=== PATIENT | male | born 1935 | race Caucasian/White ===

== ENCOUNTER 2017-07-17 15:29 | Inpatient (IN) | payer BC, OTHER ==
[2017-07-11 11:55] VITALS: BMI 28.0
[~2017-07-17] VITALS: Ht 185.4 cm; Wt 96.2 kg
[~2017-07-17 15:29] MED LIST: AMIO200T4 PO; ASPI-435 PO; ATV/1 PO; CLIN1GEL5 TOP; CLR10 PO; DOCU100C31 PO; DOXY1TAB6 PO; FERR1TAB62 PO; FURO-85 PO; INSDGI SC; MAGN400T6 PO; METO25TA3 PO; MOME6000 NAE; MULT-188 PO; MULT-506 PO; THIA100T11 PO; WARF2TAB8 PO; ZOLP5TAB PO
[2017-07-17 16:34] VITALS: BP 166/76; PULSE 68; TEMP 37.4; O2SAT 99; Ht 185.4 cm; Wt 96.2 kg
[2017-07-17] MEDS ORDERED: GLUCOSE 10 TABS/TUBE PO PRN (17:15)
[2017-07-17] MEDS ORDERED: GLUCOSE 40% GEL 15 GM TUBE PO PRN (17:15)
[2017-07-17] MEDS ORDERED: ACETAMINOPHEN 325 MG TAB PO PRN (17:15)
[2017-07-17] MEDS ORDERED: BISACODYL 5 MG TABEC PO ONE (17:15)
[2017-07-17] MEDS ORDERED: GLUCAGON FOR INJ 1 MG VIAL SQ PRN (17:15)
[2017-07-17] MEDS ORDERED: DEXTROSE 50% 50 ML SYR IV PRN (17:15)
[2017-07-17] MEDS ORDERED: LAVAGE SOLUTION 4000ML PO ONE (17:30)
--- NOTE | 2017-07-17 17:37 | History and Physical ---
History & Physical Date & Time of Service: Jul 17, 2017 at 17:37 Chief Complaint: Hannah,Pt Being Admitted For This Procedure Primary Care Physician: Sandeep Dhillon D.O. History of Present Illness Source: patient, clinic records, hospital records This is an 82-year-old male with a past medical history of mixed systolic and diastolic CHF, A Fib (on Coumadin), complete heart block (s/p pacemaker placement), DM II, HTN and other medical problems listed below who is being directly admitted for observation during bowel prep with plans for an EGD/ colonoscopy tomorrow. Patient follows with Dr. Dhillon and was recently referred to GI clinic for new onset iron deficiency anemia. From Feb until now, hemoglobin has decreased from 15.4 to 10.7. Hematocrit has decreased from 45 to 33. Patient denies any symptoms of GI bleeding but states that his stool has been darker for the last few weeks. Attributes the change in color to his iron supplement, which he is taking twice a day. Denies any lightheadedness, visual changes or chest pain. Was experiencing SOB but has improved since beta james dose was decreased to 25mg daily and lasix 20mg daily was initiated at last appointment. Due to complex cardiac history, GI requested that he be observed in-patient overnight to monitor fluid changes during bowel prep. Denies any fever, chills, headache, abdominal pain, nausea, vomiting, diarrhea, constipation, appetite changes, LE swelling. States that he had multiple polyps removed on prior colonoscopies. Last colonoscopy was over 10 years ago. Was instructed to hold the Coumadin; last dose was 5 days ago. Past Medical/Surgical History Medical Problems: (1) Acoustic neuroma Status: Chronic (2) Alcohol dependence Status: Chronic (3) Allergic rhinitis Status: Chronic (4) CAD (coronary artery disease) Status: Chronic (5) Cystic kidney disease Status: Chronic (6) Depression Status: Chronic (7) Diabetes mellitus type 2 in nonobese Status: Chronic (8) Diabetic polyneuropathy Status: Chronic (9) Dyslipidemia Status: Chronic (10) Generalized OA Status: Chronic (11) History of prostate cancer Permanent Comment: s/p prostatectomy Status: Chronic (12) HTN (hypertension) Status: Chronic (13) Insomnia Status: Chronic (14) Paroxysmal atrial fibrillation Status: Chronic (15) Systolic CHF Status: Chronic Surgical Problems: (1) H/O prostatectomy Status: Resolved (2) History of tonsillectomy and adenoidectomy Status: Resolved (3) S/P placement of cardiac pacemaker Status: Resolved Family History Patient reports no known family medical history. Social History Smoking Status: Never Smoker Alcohol Use: previously dependent. quit 5-6 years ago Marital Status: single Housing status: lives alone Occupational Status: retired Immunizations History of Influenza Vaccine: Yes Influenza Vaccine Date: Jan 22, 2011 History of Tetanus Vaccine?: Unknown History of Pneumococcal: Yes History of Hepatitis B Vaccine: No Allergies Coded Allergies: Sulfites (Verified Allergy, Unknown, THROAT CONSTRICTION, 07/11/17) Uncoded Allergies: VASODILATORS (Allergy, Intermediate, red swelling, 02/01/11) Home Medications Scheduled Amiodarone Hcl (Cordarone), 200 MG PO QPM Aspirin (Aspirin 81), 81 MG PO QAM Clindamycin Phosphate (Topical (Clindamycin Phosphate), 1 APPLN TOP DAILY Docusate Sodium (Docusate Sodium), 1 CAP PO QAM Doxycycline Hyclate (Doxycycline Hyclate), 100 MG PO HS Ferrous Sulfate (Ferrous Sulfate), 1 TAB PO BID Furosemide (Lasix), 20 MG PO DAILY Insulin Glargine (Lantus), 10 UNITS SC QAM Loratadine (Claritin), 10 MG PO DAILY Lorazepam (Ativan), 1-2 TABS PO HS Magnesium Oxide (Mag-Ox), 400 TAB PO QAM Metoprolol Succ (Toprol Xl) (Toprol-Xl), 25 MG PO QPM Mometasone Furoate (Nasal) (Mometasone Furoate), 2 SPRAY LUIS A DAILY Multiple Vitamins W/ Minerals (Ocuvite), 1 TAB PO QAM Multivitamin (Multivitamin), 1 TAB PO QAM Thiamine Hcl (Vitamin B-1), 100 MG PO WK Warfarin Sod (Jantoven), 0.5 TAB PO 3XWK Warfarin Sod (Jantoven), 1 TAB PO 4XWK Zolpidem Tartrate (Ambien), 5 MG PO HS Review of Systems Ten systems reviewed and negative except as noted in the HPI. Physical Exam Vital Signs Date Time Temp Pulse Resp B/P (MAP) Pulse Ox O2 Delivery O2 Flow Rate FiO2 07/17/17 16:34 37.4 68 20 166/76 99 Room Air General Appearance: WD/WN, no apparent distress, + pertinent finding (Resting comfortably. + pallor ) Head: normocephalic, atraumatic Eyes: normal inspection, PERRL, sclerae normal ENT: normal ENT inspection, hearing grossly normal, pharynx normal Neck: supple, thyroid normal, no JVD, trachea midline Respiratory/Chest: chest non-tender, lungs clear, normal breath sounds, no respiratory distress, no accessory muscle use, + pertinent finding (pacemaker in left chest wall) Cardiovascular: regular rate, rhythm, no murmur, normal peripheral pulses, + pertinent finding (1+ pitting edema to BLE. Wearing josefa hose) Abdomen/GI: non tender, soft, no organomegaly Back: normal inspection Extremities/Musculoskelatal: normal inspection, no calf tenderness, no pedal edema Neurologic/Psych: no motor/sensory deficits, alert, normal mood/affect, oriented x 3 Skin: warm/dry, no rash, + pallor Diagnostics Laboratory Results Results Past 24 Hours Test 07/17/17 16:09 07/17/17 17:31 Range/Units Bedside Glucose 97 70-99 mg/dl EKG Ventricular-paced rhythm with premature ventricular or aberrantly conducted complexes at 66 bpm. Impression Assessment and Plan This is an 82-year-old male with a past medical history of mixed systolic and diastolic CHF, A Fib (on Coumadin), complete heart block (s/p pacemaker placement), DM II, HTN and other medical problems listed below who is being directly admitted for observation during bowel prep with plans for an EGD/ colonoscopy tomorrow. Iron deficiency anemia: -Significant decrease in hgb/hct over the past 4 months -Hgb stable at 12, which shows improvement with iron supplementation -Unknown cause of chronic bleeding -Plan for EGD, colonoscopy tomorrow -Bowel prep, NPO after midnight -Gentle IVF resuscitation Hypokalemia: -Likely 2/2 recent initiation of lasix -Replace -Check BMP in AM Mixed systolic, diastolic CHF: -Compensated on exam -No SOB, lungs are clear -BNP wnl, CXR pending -Mar 2016 echo with EF of 46% (improved from 30%) Normal LV size with mild concentric LVH Mildly reduced LV systolic function with abnormal septal wall motion consistent with RV pacemaker activation along with mild global hypokinesis A Fib: -Coumadin held for procedure-- INR 1.4 -Continue amiodarone, metoprolol succinate DM II: -Hgb a1c of 5.5 in June 2017 -Hold home agents -SSI while in-patient -BSG AC HS HTN: -Normotensive -Cont beta james Insomnia: -Cont home dose ativan, ambien DVT Ppx: SCDs. No pharmacologic VTE due to procedure tomorrow Code status: FULL code PCP: Alejo Dispo: Observation telemetry. Discharge planning ordered (patient lives alone, > 80 yo). Patient seen in collaboration with Dr. Gordillo. Please see addendum. ADDENDUM: This is an 82 year old male with a PMH of mixed diastolic (grade 3) and systolic CHF, A. fib on Coumadin, s/p PPM, iron deficiency anemia - presents for an EGD and colonoscopy. He was sent over to be directly admitted due to his medical history. He has no complaints at this time. On exam: +S1, S2 - Irregularly irregular trace edema on the b/l LE Plan: monitor in tele bowel prep as per GI plan for EGD/colonoscopy in AM INR is 1.4, will recheck in AM check a portable CXR will give 20 meq KCl D5 1/2NS + 20meq KCl at 80mL/hr - monitor fluid status Advanced Directives Existing Living Will: Yes Existing Power of Sheet Metal Technician: Yes Resuscitation Status VTE Prophylaxis Will order VTE Prophylaxis: Yes
[2017-07-17 17:41] LABS: HEMATOCRIT 38.7 % (42-52); HEMOGLOBIN 12.1 g/dL (14.0-18.0); MEAN CELL VOLUME 79.6 fL (80-100); MEAN CORPUSCULAR HEMOGLOBIN 24.9 pg (25-34); MEAN CORPUSCULAR HGB CONC 31.3 g/dl (32-36); MEAN PLATELET VOLUME 8.4 fL (7.4-10.4); PLATELET COUNT 223 K/uL (130-400); RED CELL DISTRIBUTION WIDTH CV 25.4 % (11.5-14.5); RED CELL DISTRIBUTION WIDTH SD 71.3 fL (36.4-46.3); WHITE BLOOD COUNT 6.07 K/uL (4.8-10.8)
--- NOTE | 2017-07-17 17:43 | Medical Consult ---
Consultation Note Date of Service Jul 17, 2017. (Jae Cat,Alvaro.R.N.P.) Consultation Note Mr. hTayer is an 82 yr old male who was seen in GI clinic for anemia. He has significant comorbidies: Systolic CHF, A-FIB on Coumadin, s/p PPM, DM, HTN. His Hct dropped from 45 to 33 with T-sat of 6% but he denies any symptoms of GI bleeding. He reports dark stools x 2 weeks as well as mild SOB. He denies nausea, vomiting, diarrhea, constipation, abdominal pain, loss of appetite, early satiety or unintentional weight loss. No history of hematemesis , melena or hematochezia. No NSAIDs use. No reflux symptoms Today, he presented to the hospital for direct admission for mild SOB associated with CHF. Exam: Current VS are normal, he has minimal peripheral edema and no SOB. Plan: CBC, CMP. Appreciate eval and monitoring of electrolytes, cardiac status, hydration status by primary hospital services. Will plan for EGD and colonoscopy tomorrow for w/u of iron deficiency anemia. (Jae Cat,C.R.N.P.) I performed a history and physical examination of the patient, including specifically on physical exam - no abdominal tenderness. I have discussed the patient's management with ALLIE Domingo. Please refer to the nurse practitioner's note for the documented findings and plan of care. Patient with multiple medical comorbids, recently had ?melena and drop in his H/ H which later stabelized but he had worsening SOB hence admitted to the hospital to evaluate for CHF exacerbation, monitor and prep for endoscopy and colonoscopy tomorrow after bowel prep. (Sean Walker M.D.)
[2017-07-17 17:49] LABS: INR 1.4 (0.9-1.1)
[2017-07-17 18:15] LABS: ALBUMIN 3.2 gm/dl (3.4-5.0); CALCIUM 7.9 mg/dl (8.5-10.1); CREATININE 1.04 mg/dl (0.60-1.40); POTASSIUM 3.3 mmol/L (3.5-5.1)
[2017-07-17] MEDS: FERROUS SULFATE 325 MG TAB PO SCH (18:15)
[2017-07-17 18:17] LABS: TOTAL PROTEIN 6.2 gm/dl (6.4-8.2)
[2017-07-17] MEDS ORDERED: POTASSIUM CHLORIDE 20 MEQ TABCR PO STA (18:35)
[2017-07-17 18:54] VITALS: BP 188/85; PULSE 70; TEMP 36.4; O2SAT 99
[2017-07-17] MEDS ORDERED: IV FLUIDS COMPLETED PRN (19:15)
--- NOTE | 2017-07-17 19:51 | DIAGNOSTIC IMAGING REPORT ---
CHEST ONE VIEW PORTABLE CLINICAL HISTORY: Fluid overload. History congestive failure. COMPARISON STUDY: 09/23/2015 FINDINGS: The heart is enlarged. There is a left subclavian dual-chamber central venous pacemaker present. There are small bilateral pleural effusions. There is no lobar consolidation.[ There is no current evidence of significant pulmonary vascular congestion. IMPRESSION: Cardiomegaly and small bilateral pleural effusions. Electronically signed by: Marvin Merritt M.D. 07/17/2017 7:49 PM Dictated Date/Time: 07/17/2017 7:49 PM
[2017-07-17 20:00] VITALS: O2SAT 98
[2017-07-17] MEDS: D5W AND 1/2NSS + 20MEQ KCL 1,000 ML IV SCH (20:02)
[2017-07-17] MEDS: METOPROLOL SUCC 25MG EXT REL TAB PO SCH (20:04)
[2017-07-17] MEDS: AMIODARONE 200 MG TAB PO SCH (20:05)
[2017-07-17] MEDS: INSULIN ASPART 100 UNITS/ML 3 ML PEN SC SCH (20:07)
[2017-07-17] MEDS ORDERED: LORAZEPAM 1 MG TAB PO SCH (21:00)
[2017-07-18 00:10] VITALS: BP 171/93; PULSE 71; TEMP 36.4; O2SAT 97
[2017-07-18] MEDS: ZOLPIDEM TARTRATE 5 MG TAB PO SCH (00:55)
[2017-07-18 04:07] VITALS: BP 172/97; PULSE 62; TEMP 36.7; O2SAT 100
[2017-07-18] MEDS: INSULIN ASPART 100 UNITS/ML 3 ML PEN SC SCH ×4 (07:00→21:29)
[2017-07-18] MEDS: FERROUS SULFATE 325 MG TAB PO SCH ×2 (07:27→17:19)
[2017-07-18] MEDS: D5W AND 1/2NSS + 20MEQ KCL 1,000 ML IV SCH (07:37)
[2017-07-18 07:49] VITALS: BP 125/71; PULSE 60; TEMP 36.9; O2SAT 95
[2017-07-18 07:51] LABS: HEMATOCRIT 34.9 % (42-52); HEMOGLOBIN 11.1 g/dL (14.0-18.0); MEAN CORPUSCULAR HEMOGLOBIN 25.5 pg (25-34); MEAN CORPUSCULAR HGB CONC 31.8 g/dl (32-36); MEAN PLATELET VOLUME 8.6 fL (7.4-10.4); PLATELET COUNT 203 K/uL (130-400); RED CELL DISTRIBUTION WIDTH CV 25.7 % (11.5-14.5); RED CELL DISTRIBUTION WIDTH SD 72.4 fL (36.4-46.3); WHITE BLOOD COUNT 5.75 K/uL (4.8-10.8)
[2017-07-18 07:58] LABS: INR 1.4 (0.9-1.1)
[2017-07-18 08:25] LABS: ALBUMIN 2.7 gm/dl (3.4-5.0); CALCIUM 7.7 mg/dl (8.5-10.1); CREATININE 0.89 mg/dl (0.60-1.40); POTASSIUM 3.5 mmol/L (3.5-5.1)
[2017-07-18 08:28] LABS: TOTAL PROTEIN 5.2 gm/dl (6.4-8.2)
[2017-07-18 11:50] VITALS: BP 153/78; PULSE 59; TEMP 36.7; O2SAT 97
--- NOTE | 2017-07-18 15:00 | Endo History and Physical ---
History & Physical Date of Service: Jul 18, 2017. Chief Complaint: Referring Physician: History of Present Illness MAGI with drop in H/H Past Medical History Diabetes, Fractures, Pacemaker, Anxiety, Cancer, CHF, Hypertension, Depression, [place] Past Surgical History Hx Internal Defibrillator: No Hx Pacemaker: Yes (5-6 YEARS [facility]) Hx Abdominal Surgery: No Hx of Implantable Prosthesis: No Hx Post-Op Nausea and Vomiting: No Hx Cancer Surgery: Yes (Prostate, skin) Hx Thoracic Surgery: No Hx Orthopedic: Yes (Left leg) Hx Urinary Tract Surgery: No Family History None Social History Smoking Status: Never Smoker Hx Substance Use: No Hx Alcohol Use: No Allergies Coded Allergies: Sulfites (Verified Allergy, Unknown, THROAT CONSTRICTION, 07/11/17) Uncoded Allergies: VASODILATORS (Allergy, Intermediate, red swelling, 02/01/11) Current Medications Reported Home Medications Medications Dose Route/Sig Max Daily Dose Days Date Category Dose Instructions Mometasone Furoate (Mometasone Furoate (Nasal)) 50 Mcg/Act Spr 2 [place] LUIS A DAILY 07/11/17 Reported Toprol-Xl (Metoprolol Succinate) 25 Mg Tabcr 25 Mg PO QPM 07/11/17 Reported Lantus (Insulin Glargine) 100 Unit/Ml Inj 10 Units SC QAM 07/11/17 Reported Lasix (Furosemide) 20 Mg Tab 20 Mg PO DAILY 07/11/17 Reported NEW PRESCRIPTION, HAS NOT STARTED YET Ferrous Sulfate 325 Mg Tab 1 Tab PO BID 07/11/17 Reported Docusate Sodium 100 Mg Cap 1 Cap PO QAM 07/11/17 Reported Jantoven (Warfarin Sodium) 2 Mg Tab 1 Tab PO 4XWK 07/11/17 Reported SUN,TUES,THURS,SAT Jantoven (Warfarin Sodium) 2 Mg Tab 0.5 Tab PO 3XWK 07/11/17 Reported Cordarone (Amiodarone Hcl) 200 Mg Tab 200 Mg PO QPM 07/11/17 Reported Ocuvite (Multiple Vitamins W/ Minerals) 1 Tab Tab 1 Tab PO QAM 09/23/15 Reported Clindamycin Phosphate (Clindamycin Phosphate (Topical) 1 % Gel 1 Appln TOP DAILY 08/11/15 Reported APPLY TO CHEEKS Aspirin 81 (Aspirin) 81 Mg Tab 81 Mg PO QAM 08/11/15 Reported Ativan (Lorazepam) 1 Mg Tab 1-2 Tabs PO HS 4/19/16 Reported Ambien (Zolpidem Tartrate) 5 Mg Tab 5 Mg PO HS 08/11/15 Reported Doxycycline Hyclate 100 Mg Tab 100 Mg PO HS 12/09/14 Reported Claritin (Loratadine) 10 Mg Tab 10 Mg PO DAILY 12/09/09 Reported Mag-Ox (Magnesium Oxide) 400 Mg Tab 400 Tab PO QAM 11/30/09 Reported Vitamin B-1 (Thiamine HCl) 100 Mg Tab 100 Mg PO WK 11/30/09 Reported Multivitamin (Multivitamins) Tab 1 Tab PO QAM 11/23/09 Reported Vital Signs Weight (Kilograms): 93.400 Height (Feet): 6 Height (Inches): 1.00 Date Time Temp Pulse Resp B/P (MAP) Pulse Ox O2 Delivery O2 Flow Rate FiO2 07/18/17 13:55 36.6 77 20 174/100 (124) 99 Room Air 07/18/17 12:00 Room Air 07/18/17 11:50 36.7 59 18 153/78 (103) 97 Room Air 07/18/17 08:00 Room Air 07/18/17 07:49 36.9 60 16 125/71 (89) 95 07/18/17 04:07 36.7 62 16 172/97 (122) 100 Room Air 07/18/17 04:00 Room Air 07/18/17 00:10 36.4 71 16 171/93 (119) 97 Room Air 07/17/17 23:59 Room Air 07/17/17 20:00 98 Room Air 07/17/17 18:54 36.4 70 19 188/85 (119) 99 Room Air 07/17/17 16:34 37.4 68 20 166/76 99 Room Air Physical Exam General Appearance: no apparent distress Respiratory/Chest: Auscultation: breath sounds normal Cardiovascular: Heart Auscultation: RRR Abdomen: Inspection & Palpation: soft Liver: non-tender Assessment and Plan Stable for EGD and colonoscopy
[2017-07-18] MEDS ORDERED: RANITIDINE HCL 25 MG/ML INJ ONE ×2 (15:22→15:25)
[2017-07-18] MEDS ORDERED: EpHEDrine SULFATE 50MG/5ML SYR ONE (15:49)
[2017-07-18] MEDS ORDERED: LIDOCAINE HCL 2% 2 ML VIAL (20MG/ML) ONE (15:49)
[2017-07-18] MEDS ORDERED: PHENYLEPHRINE 100MCG/ML 5ML SYR ONE (15:49)
[2017-07-18] MEDS ORDERED: DEXAMETHASONE SOD INJ 4 MG/ML VIAL ONE (15:49)
[2017-07-18] MEDS ORDERED: ONDANSETRON INJ 2 MG/ML 2 ML VIAL ONE (15:49)
[2017-07-18] MEDS ORDERED: PROPOFOL IV EMULSION 10 MG/ML 20 ML VIAL IV ONE (15:49)
--- NOTE | 2017-07-18 16:55 | Anesthesiology Progress Note ---
Anesthesia Post Op Note Date & Time Jul 18, 2017 at 16:55 Vital Signs Pain Intensity: 0.0 Vital Signs Past 12 Hours Date Time Temp Pulse Resp B/P (MAP) Pulse Ox O2 Delivery O2 Flow Rate FiO2 07/18/17 16:46 62 16 158/69 (98) 99 Room Air 07/18/17 16:31 71 16 144/69 (94) 100 Room Air 07/18/17 13:55 36.6 77 20 174/100 (124) 99 Room Air 07/18/17 12:00 Room Air 07/18/17 11:50 36.7 59 18 153/78 (103) 97 Room Air 07/18/17 08:00 Room Air 07/18/17 07:49 36.9 60 16 125/71 (89) 95 Notes Mental Status: alert / awake / arousable, participated in evaluation Pt Amnestic to Procedure: Yes Nausea / Vomiting: adequately controlled Pain: adequately controlled Airway Patency, RR, SpO2: stable & adequate BP & HR: stable & adequate Hydration State: stable & adequate Anesthetic Complications: no major complications apparent
--- NOTE | 2017-07-18 16:59 | GI REPORT ---
Procedure Date: 07/18/2017 2:54 PM Procedure: Upper GI endoscopy Indications: Iron deficiency anemia, Melena Medicines: Monitored Anesthesia Care Complications: No immediate complications. Estimated Blood Loss: Estimated blood loss: none. Procedure: Pre-Anesthesia Assessment: - Prior to the procedure, a History and Physical was performed, and patient medications and allergies were reviewed. The patient is competent. The risks and benefits of the procedure and the sedation options and risks were discussed with the patient. All questions were answered and informed consent was obtained. Patient identification and proposed procedure were verified by the physician and the nurse in the procedure room. Mental Status Examination: alert and oriented. Airway Examination: normal oropharyngeal airway and neck mobility. Respiratory Examination: clear to auscultation. CV Examination: normal. ASA Grade Assessment: IV - A patient with severe systemic disease that is a constant threat to life. After reviewing the risks and benefits, the patient was deemed in satisfactory condition to undergo the procedure. The anesthesia plan was to use monitored anesthesia care (MAC). Immediately prior to administration of medications, the patient was re-assessed for adequacy to receive sedatives. The heart rate, respiratory rate, oxygen saturations, blood pressure, adequacy of pulmonary ventilation, and response to care were monitored throughout the procedure. The physical status of the patient was re-assessed after the procedure. After obtaining informed consent, the endoscope was passed under direct vision. Throughout the procedure, the patient's blood pressure, pulse, and oxygen saturations were monitored continuously. The scope was introduced through the mouth, and advanced to the second part of duodenum. The upper GI endoscopy was accomplished without difficulty. The patient tolerated the procedure well. Findings: The examined esophagus was normal. Atrophic mucosa was found in the gastric fundus and in the gastric body. Biopsies were taken with a cold forceps for histology. Biopsies were taken with a cold forceps for Helicobacter pylori testing. Mild gastric antral vascular ectasia without bleeding was present in the gastric antrum. Vaporization for bleeding prevention using argon plasma was successful. The duodenal bulb and second portion of the duodenum were normal. Biopsies for histology were taken with a cold forceps for evaluation of celiac disease. Impression: - Normal esophagus. - Gastric mucosal atrophy. Biopsied. - Gastric antral vascular ectasia without bleeding. Treated with argon plasma coagulation (APC). - Normal duodenal bulb and second portion of the duodenum. Biopsied. Recommendation: - Clear liquid diet today. - Use a proton pump inhibitor IV daily for one day then change to PO daily for 4 weeks. - Use sucralfate suspension 1 gram PO QID for 1 week. Sean Walker MD 07/18/2017 4:59:06 PM This report has been signed electronically. Note Initiated On: 07/18/2017 2:54 PM I attest to the content of the Intraoperative Record and orders documented therein, exceptions below
--- NOTE | 2017-07-18 17:09 | GI REPORT ---
Procedure Date: 07/18/2017 2:53 PM Procedure: Colonoscopy Indications: Melena, Iron deficiency anemia Medicines: Monitored Anesthesia Care Complications: No immediate complications. Estimated Blood Loss: Estimated blood loss: none. Procedure: Pre-Anesthesia Assessment: - Prior to the procedure, a History and Physical was performed, and patient medications and allergies were reviewed. The patient is competent. The risks and benefits of the procedure and the sedation options and risks were discussed with the patient. All questions were answered and informed consent was obtained. Patient identification and proposed procedure were verified by the physician and the nurse in the procedure room. Mental Status Examination: alert and oriented. Airway Examination: normal oropharyngeal airway and neck mobility. Respiratory Examination: clear to auscultation. CV Examination: normal. ASA Grade Assessment: IV - A patient with severe systemic disease that is a constant threat to life. After reviewing the risks and benefits, the patient was deemed in satisfactory condition to undergo the procedure. The anesthesia plan was to use monitored anesthesia care (MAC). Immediately prior to administration of medications, the patient was re-assessed for adequacy to receive sedatives. The heart rate, respiratory rate, oxygen saturations, blood pressure, adequacy of pulmonary ventilation, and response to care were monitored throughout the procedure. The physical status of the patient was re-assessed after the procedure. After I obtained informed consent, the scope was passed under direct vision. Throughout the procedure, the patient's blood pressure, pulse, and oxygen saturations were monitored continuously. The scope was introduced through the anus and advanced to the terminal ileum. The colonoscopy was performed without difficulty. The patient tolerated the procedure well. The quality of the bowel preparation was good. The terminal ileum, ileocecal valve, appendiceal orifice, and rectum were photographed. Findings: The perianal and digital rectal examinations were normal. A frond-like/villous, infiltrative and ulcerated non-obstructing large mass was found in the ascending colon. The mass was partially circumferential (involving one-half of the lumen circumference). The mass measured five cm in length. In addition, its diameter measured twenty-five mm. Oozing was present. Mass did not lif with salone. Biopsies were taken with a cold forceps for histology. Area was tattooed with an injection of 1 mL of Sylvia ink. Vaporization for hemostasis using argon plasma was successful. Area was successfully injected with 6 mL of a 1:10,000 solution of epinephrine for hemostasis. The terminal ileum appeared normal. Two sessile polyps were found in the cecum. The polyps were 8 mm in size. These polyps were removed with a cold snare. Resection and retrieval were complete. Verification of patient identification for the specimen was done by the physician and nurse using the patient's name and date. Three sessile polyps were found in the sigmoid colon. The polyps were 5 mm in size. These polyps were removed with a cold snare. Resection and retrieval were complete. Scattered small and large-mouthed diverticula were found in the sigmoid colon. Non-bleeding internal hemorrhoids were found during retroflexion. The hemorrhoids were small. Impression: - Malignant looking mass in the ascending colon. Biopsied. Tattooed. - The examined portion of the ileum was normal. - Two 8 mm polyps in the cecum, removed with a cold snare. Resected and retrieved. - Three 5 mm polyps in the sigmoid colon, removed with a cold snare. Resected and retrieved. - Diverticulosis in the sigmoid colon. - Non-bleeding internal hemorrhoids. Recommendation: - Return patient to [facility] for ongoing care. - Clear liquid diet today. - Await pathology results. - Refer to a surgeon today. - Perform CT scan (computed tomography) of the Chect , abdomen and pelvis with contrast today. - Monitor H/H. Sean Walker MD 07/18/2017 5:08:32 PM This report has been signed electronically. Note Initiated On: 07/18/2017 2:53 PM I attest to the content of the Intraoperative Record and orders documented therein, exceptions below
[2017-07-18] MEDS ORDERED: PANTOprazole INJ 80 MG in DEXTROSE 5% 100ML IV SCH (17:30)
--- NOTE | 2017-07-18 17:44 | Gastroenterology Progress Note ---
Gastroenterology Progress Note Patient underwent EGD and colonoscopy, tolerated well. 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 Normal esophagus and duodenum. Colonoscopy showed large ulcerated colonic mass in ascending colon with slight oozing, this was biopsied and tattooed and treated with APC to slow down the bleeding. This is likely malignant mass. Few polyps removed from sigmoid colon. Recommendations: CT scan chest, abdomen and pelvis. Monitor H/H Surgery consult, eventually will need right hemicolectomy for therapeutic purpose of the bleeding. Keep on clear liquids for now.
[2017-07-18] MEDS: PANTOprazole INJ 40 MG in DEXTROSE 5% 100ML IV SCH ×2 (18:13→22:50)
--- NOTE | 2017-07-18 19:33 | Surgery Consultation ---
Consultation Date of Consultation: Jul 18, 2017. Attending Physician: Rosalie Coto M.D. History of Present Illness pt is a 82 year old male who is S/P colonoscopy with biopsy ascending colon mass with anemia, pt denies abdominal pain, no nausea, no vomiting, no weakness, no diarrhea, no weight loss,He has significant comorbidies: Systolic CHF, A-FIB on Coumadin, s/p PPM, DM, HTN. His Hct dropped from 45 to 33 with T-sat of 6% but he denies any symptoms of GI bleeding. He reports dark stools x 2 weeks as well as mild SOB. pt had other colonoscopy in 2011, Past Medical/Surgical History Medical Problems: (1) Lightheadedness Status: Acute (2) Near syncope Status: Acute Family History Patient reports no known family medical history. Social History Smoking Status: Never Smoker Smokeless Tobacco Use: No Alcohol Use: occasionally Drug Use: none Marital Status: single Occupation Status: retired Allergies Coded Allergies: Sulfites (Verified Allergy, Unknown, THROAT CONSTRICTION, 07/11/17) Uncoded Allergies: VASODILATORS (Allergy, Intermediate, red swelling, 02/01/11) Home Medications Scheduled Amiodarone Hcl (Cordarone), 200 MG PO QPM Aspirin (Aspirin 81), 81 MG PO QAM Clindamycin Phosphate (Topical (Clindamycin Phosphate), 1 APPLN TOP DAILY Docusate Sodium (Docusate Sodium), 1 CAP PO QAM Doxycycline Hyclate (Doxycycline Hyclate), 100 MG PO HS Ferrous Sulfate (Ferrous Sulfate), 1 TAB PO BID Furosemide (Lasix), 20 MG PO DAILY Insulin Glargine (Lantus), 10 UNITS SC QAM Loratadine (Claritin), 10 MG PO DAILY Lorazepam (Ativan), 1-2 TABS PO HS Magnesium Oxide (Mag-Ox), 400 TAB PO QAM Metoprolol Succ (Toprol Xl) (Toprol-Xl), 25 MG PO QPM Mometasone Furoate (Nasal) (Mometasone Furoate), 2 SPRAY LUIS A DAILY Multiple Vitamins W/ Minerals (Ocuvite), 1 TAB PO QAM Multivitamin (Multivitamin), 1 TAB PO QAM Thiamine Hcl (Vitamin B-1), 100 MG PO WK Warfarin Sod (Jantoven), 0.5 TAB PO 3XWK Warfarin Sod (Jantoven), 1 TAB PO 4XWK Zolpidem Tartrate (Ambien), 5 MG PO HS Current Inpatient Medications Current Inpatient Medications Medications (Trade) Dose Ordered Sig/Cholo Route Start Time Stop Time Status Last Admin Dose Admin Acetaminophen (Tylenol Tab) 650 mg Q4H PRN PO 07/17/17 17:15 08/16/17 17:14 Insulin Aspart (novoLOG ASPART) SLIDING SCALE If C... ACHS SC 07/17/17 21:00 08/16/17 20:59 Glucose (Glucose 40% Gel) 15-30 GRAMS 15 GRAMS... UD PRN PO 07/17/17 17:15 08/16/17 17:14 Glucose (Glucose Chew Tab) 4-8 Tablets 4 Tabl... UD PRN PO 07/17/17 17:15 08/16/17 17:14 Dextrose (Dextrose 50% 50ML Syringe) 25-50ML OF 50% DW IV FOR... UD PRN IV 07/17/17 17:15 08/16/17 17:14 07/18/17 08:36 25 ML Glucagon (Glucagon Inj) 1 mg UD PRN SQ 07/17/17 17:15 08/16/17 17:14 Amiodarone HCl (Cordarone Tab) 200 mg QPM PO 07/17/17 21:00 08/16/17 20:59 07/17/17 20:05 200 MG Lorazepam (Ativan Tab) 1 mg HS PO 07/17/17 21:00 08/16/17 20:59 07/18/17 00:54 1 MG Metoprolol Succinate (Toprol Xl Tab) 25 mg QPM PO 07/17/17 21:00 08/16/17 20:59 07/17/17 20:04 25 MG Zolpidem Tartrate (Ambien Tab) 5 mg HS PO 07/17/17 21:00 08/16/17 20:59 07/18/17 00:55 5 MG Ferrous Sulfate (Feosol Tab) 325 mg BIDM PO 07/17/17 16:45 08/16/17 16:44 07/17/17 18:15 325 MG Miscellaneous Information (Order Awaiting Action) 1 ea QS N/A 07/18/17 00:00 08/17/17 00:00 Potassium Chloride/Dextrose/ Sod Cl 1,000 ml @ 80 mls/hr [id number] IV 07/17/17 18:30 08/16/17 18:29 07/18/17 07:37 80 MLS/HR Miscellaneous (Iv Fluids Completed) 1 ea PRN PRN N/A 07/17/17 19:15 07/17/18 19:14 Pantoprazole Sodium 40 mg/ Dextrose 100 ml @ 20 mls/hr Q5H IV 07/18/17 17:45 08/17/17 17:44 07/18/17 18:13 20 MLS/HR Review of Systems Constitutional: No fever, No chills, No sweats, No weight loss, No weakness, No fatigue, No problem reported Eyes: No worsening of vision, No eye pain, No redness, No discharge, No diplopia, No problem reported ENT: No hearing loss, No unusual epistaxis, No nasal symptoms, No sore throat, No tinnitus, No dental problems, No trouble swallowing, No problem reported Respiratory: No cough, No sputum, No wheezing, No shortness of breath, No dyspnea on exertion, No dyspnea at rest, No hemoptysis, No problem reported Cardiovascular: + problem reported (CHF, A-fib, HTN), No chest pain, No orthopnea, No PND, No edema, No claudication, No palpitations Abdomen: No pain, No nausea, No vomiting, No diarrhea, No constipation, No GI bleeding, No problem reported Musculoskeletal: No joint pain, No muscle pain, No swelling, No calf pain, No problem reported Genitourinary - Male: No hematuria, No dysuria, No urinary frequency, No urinary urgency, No urinary hesitancy, No urinary retention, No urinary incontinence, No penile discharge, No lesions, No impotence, No problem reported Neurologic: No memory loss, No paralysis, No weakness, No numbness/tingling, No vertigo, No balance problems, No problem reported Psychiatric: No depression symptoms, No anhedonism, No anxiety, No insomnia, No substance abuse, No problem reported Endocrine: No fatigue, No excessive thirst, No excessive urination, No problem reported Hematologic / Lymphatic: + problem reported (anemia) Physical Exam Date Time Temp Pulse Resp B/P (MAP) Pulse Ox O2 Delivery O2 Flow Rate FiO2 07/18/17 17:30 Room Air 07/18/17 17:01 61 16 156/72 (100) 99 Room Air 07/18/17 16:46 62 16 158/69 (98) 99 Room Air 07/18/17 16:31 71 16 144/69 (94) 100 Room Air 07/18/17 13:55 36.6 77 20 174/100 (124) 99 Room Air 07/18/17 12:00 Room Air 07/18/17 11:50 36.7 59 18 153/78 (103) 97 Room Air 07/18/17 08:00 Room Air 07/18/17 07:49 36.9 60 16 125/71 (89) 95 07/18/17 04:07 36.7 62 16 172/97 (122) 100 Room Air 07/18/17 04:00 Room Air 07/18/17 00:10 36.4 71 16 171/93 (119) 97 Room Air 07/17/17 23:59 Room Air 07/17/17 20:00 98 Room Air General Appearance: WD/WN, no apparent distress Head: normocephalic Eyes: normal inspection ENT: normal ENT inspection Neck: supple, no adenopathy, no JVD Respiratory/Chest: chest non-tender, lungs clear, normal breath sounds, no respiratory distress Cardiovascular: regular rate, rhythm, no edema, no gallop, no JVD, no murmur, + irregularly irregular Abdomen/GI: normal bowel sounds, non tender, soft, no organomegaly, no pulsatile mass Extremities/Musculoskelatal: normal inspection, no calf tenderness, normal capillary refill Neurologic/Psych: no motor/sensory deficits, alert, normal mood/affect Skin: normal color, warm/dry, no rash Laboratory Results Last 24 Hours Test 07/17/17 20:07 07/18/17 06:40 07/18/17 07:38 07/18/17 08:55 Bedside Glucose 132 mg/dl 76 mg/dl 130 mg/dl White Blood Count 5.75 K/uL Red Blood Count 4.36 M/uL Hemoglobin 11.1 g/dL Hematocrit 34.9 % Mean Corpuscular Volume 80.0 fL Mean Corpuscular Hemoglobin 25.5 pg Mean Corpuscular Hemoglobin Concent 31.8 g/dl RDW Standard Deviation 72.4 fL RDW Coefficient of Variation 25.7 % Platelet Count 203 K/uL Mean Platelet Volume 8.6 fL Prothrombin Time 15.0 SECONDS Prothromb Time International Ratio 1.4 Sodium Level 139 mmol/L Potassium Level 3.5 mmol/L Chloride Level 104 mmol/L Carbon Dioxide Level 31 mmol/L Anion Gap 4.0 mmol/L Blood Urea Nitrogen 8 mg/dl Creatinine 0.89 mg/dl Est Creatinine Clear Calc Drug Dose 72.3 ml/min Estimated GFR () 92.3 Estimated GFR (Non- 79.6 BUN/Creatinine Ratio 8.8 Random Glucose 63 mg/dl Calcium Level 7.7 mg/dl Total Bilirubin 0.5 mg/dl Aspartate Amino Transf (AST/SGOT) 29 U/L Alanine Aminotransferase (ALT/SGPT) 33 U/L Alkaline Phosphatase 87 U/L Total Protein 5.2 gm/dl Albumin 2.7 gm/dl Globulin 2.5 gm/dl Albumin/Globulin Ratio 1.1 Test 07/18/17 11:34 07/18/17 13:15 07/18/17 17:39 Bedside Glucose 85 mg/dl 86 mg/dl 116 mg/dl Assessment & Plan Assessment: pt is a 82 year old male who is S/P colonoscopy with biopsy ascending colon mass, pathology is pending, IMP: ascending colon mass recommend: 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
--- NOTE | 2017-07-18 19:38 | Progress Note ---
Medicine Progress Note Date & Time of Visit: Jul 18, 2017 at 19:24. Subjective Pt was seen and examined Lying in bed with no distress Pt just had EGD and colonoscopy done He is drinking the contrast to go for a CT scan Denies any chest pain, palpitation and SOB Objective Last 8 Hrs Date Time Temp Pulse Resp B/P (MAP) Pulse Ox O2 Delivery O2 Flow Rate FiO2 07/18/17 17:30 Room Air 07/18/17 17:01 61 16 156/72 (100) 99 Room Air 07/18/17 16:46 62 16 158/69 (98) 99 Room Air 07/18/17 16:31 71 16 144/69 (94) 100 Room Air 07/18/17 13:55 36.6 77 20 174/100 (124) 99 Room Air 07/18/17 12:00 Room Air 07/18/17 11:50 36.7 59 18 153/78 (103) 97 Room Air Physical Exam: General- No acute distress Head- atraumatic Eyes- PERRL, EOMI ENT- oropharynx clear Neck- supple, no JVD Lungs- clear to auscultation Heart- regular rhythm Abdomen- normal bowel sounds, soft Extremities- no calf tenderness; Neuro- alert, oriented x 3; PERRL, EOMI; no facial palsy; Skin- warm & dry Laboratory Results: Last 24 Hours Test 07/17/17 20:07 07/18/17 06:40 07/18/17 07:38 07/18/17 08:55 Bedside Glucose 132 mg/dl 76 mg/dl 130 mg/dl White Blood Count 5.75 K/uL Red Blood Count 4.36 M/uL Hemoglobin 11.1 g/dL Hematocrit 34.9 % Mean Corpuscular Volume 80.0 fL Mean Corpuscular Hemoglobin 25.5 pg Mean Corpuscular Hemoglobin Concent 31.8 g/dl RDW Standard Deviation 72.4 fL RDW Coefficient of Variation 25.7 % Platelet Count 203 K/uL Mean Platelet Volume 8.6 fL Prothrombin Time 15.0 SECONDS Prothromb Time International Ratio 1.4 Sodium Level 139 mmol/L Potassium Level 3.5 mmol/L Chloride Level 104 mmol/L Carbon Dioxide Level 31 mmol/L Anion Gap 4.0 mmol/L Blood Urea Nitrogen 8 mg/dl Creatinine 0.89 mg/dl Est Creatinine Clear Calc Drug Dose 72.3 ml/min Estimated GFR () 92.3 Estimated GFR (Non- 79.6 BUN/Creatinine Ratio 8.8 Random Glucose 63 mg/dl Calcium Level 7.7 mg/dl Total Bilirubin 0.5 mg/dl Aspartate Amino Transf (AST/SGOT) 29 U/L Alanine Aminotransferase (ALT/SGPT) 33 U/L Alkaline Phosphatase 87 U/L Total Protein 5.2 gm/dl Albumin 2.7 gm/dl Globulin 2.5 gm/dl Albumin/Globulin Ratio 1.1 Test 07/18/17 11:34 07/18/17 13:15 07/18/17 17:39 Bedside Glucose 85 mg/dl 86 mg/dl 116 mg/dl Assessment & Plan This is an 82-year-old male with a past medical history of mixed systolic and diastolic CHF, A Fib (on Coumadin), complete heart block (s/p pacemaker placement), DM II, HTN and other medical problems listed below who is being directly admitted for observation during bowel prep with plans for an EGD/ colonoscopy tomorrow. Iron deficiency anemia: Hbg 11.1 today EGD done today showed normal esophagus. gastric antral vascular ectasia without bleeding GI recommended clear liquid diet. continue IV PPI for 1 day, then change to PO daily for 4weeks Continue sucralfate 1 g PO QID for 1 week Colonoscopy done showed -Malignant looking mass in the ascending colon. - The examined portion of the ileum was normal. - Two 8 mm polyps in the cecum, and three 5 mm polyps in the sigmoid colon, CT chest/Abdo/Pelvis with contrast pending a Hypokalemia K stable Monitor BMP Mixed systolic, diastolic CHF: No signs of overload Last echo was Apr 08 with EF of 46% (improved from 30%) .Normal LV size with mild concentric LVH Mildly reduced LV systolic function with abnormal septal wall motion consistent with RV pacemaker activation along with mild global hypokinesis Stable A Fib: Coumadin held for procedure Continue amiodarone, metoprolol succinate INR 1.4 Monitor INR Resume coumadin in am DM II: Hgb a1c of 5.5 in June 2017 Hold home agents SSI while in-patient BSG AC HS HTN: Cont beta james Stable Insomnia: Cont home dose ativan, ambien DVT Ppx: SCDs. Code status: FULL code Current Inpatient Medications: Current Inpatient Medications Medications (Trade) Dose Ordered Sig/Cholo Route Start Time Stop Time Status Last Admin Dose Admin Acetaminophen (Tylenol Tab) 650 mg Q4H PRN PO 07/17/17 17:15 08/16/17 17:14 Insulin Aspart (novoLOG ASPART) SLIDING SCALE If C... ACHS SC 07/17/17 21:00 08/16/17 20:59 Glucose (Glucose 40% Gel) 15-30 GRAMS 15 GRAMS... UD PRN PO 07/17/17 17:15 08/16/17 17:14 Glucose (Glucose Chew Tab) 4-8 Tablets 4 Tabl... UD PRN PO 07/17/17 17:15 08/16/17 17:14 Dextrose (Dextrose 50% 50ML Syringe) 25-50ML OF 50% DW IV FOR... UD PRN IV 07/17/17 17:15 08/16/17 17:14 07/18/17 08:36 25 ML Glucagon (Glucagon Inj) 1 mg UD PRN SQ 07/17/17 17:15 08/16/17 17:14 Amiodarone HCl (Cordarone Tab) 200 mg QPM PO 07/17/17 21:00 08/16/17 20:59 07/17/17 20:05 200 MG Lorazepam (Ativan Tab) 1 mg HS PO 07/17/17 21:00 08/16/17 20:59 07/18/17 00:54 1 MG Metoprolol Succinate (Toprol Xl Tab) 25 mg QPM PO 07/17/17 21:00 08/16/17 20:59 07/17/17 20:04 25 MG Zolpidem Tartrate (Ambien Tab) 5 mg HS PO 07/17/17 21:00 08/16/17 20:59 07/18/17 00:55 5 MG Ferrous Sulfate (Feosol Tab) 325 mg BIDM PO 07/17/17 16:45 08/16/17 16:44 07/17/17 18:15 325 MG Miscellaneous Information (Order Awaiting Action) 1 ea QS N/A 07/18/17 00:00 08/17/17 00:00 Potassium Chloride/Dextrose/ Sod Cl 1,000 ml @ 80 mls/hr [id number] IV 07/17/17 18:30 08/16/17 18:29 07/18/17 07:37 80 MLS/HR Miscellaneous (Iv Fluids Completed) 1 ea PRN PRN N/A 07/17/17 19:15 07/17/18 19:14 Pantoprazole Sodium 40 mg/ Dextrose 100 ml @ 20 mls/hr Q5H IV 07/18/17 17:45 08/17/17 17:44 07/18/17 18:13 20 MLS/HR
[2017-07-18 20:22] VITALS: BP 170/76; PULSE 61; TEMP 36.6; O2SAT 99
--- NOTE | 2017-07-18 20:59 | DIAGNOSTIC IMAGING REPORT ---
CT (CHEST) THORAX WITH CT DOSE: 1166.58 mGy.cm HISTORY: Colon carcinoma for ascending colon mass; chest CT for staging TECHNIQUE: Multiaxial CT images of the chest were performed following the intravenous administration of contrast. A dose lowering technique was utilized adhering to the principles of ALARA. COMPARISON: None. FINDINGS: Small/moderate bilateral pleural effusions. Mild bibasilar compressive atelectasis. Mild cardiomegaly. Permanent bipolar cardiac pacemaker. Substernal thyroid. No significant mediastinal or hilar adenopathy. Moderate degenerative changes thoracic spine. No evidence for compression deformity. IMPRESSION: 1. Bilateral pleural effusions. 2. Mild dependent basilar atelectatic change 3. Otherwise negative CT of the chest. The above report was generated using voice recognition software. It may contain grammatical, syntax or spelling errors. Electronically signed by: Bruno Crespo M.D. 07/18/2017 8:57 PM Dictated Date/Time: 07/18/2017 8:54 PM
[2017-07-18] MEDS ORDERED: OPTIRAY 320 IV PRN (21:00)
--- NOTE | 2017-07-18 21:07 | DIAGNOSTIC IMAGING REPORT ---
ABD/PELVIS IV AND ORAL CONT CT DOSE: HISTORY: Colon mass large ascending colon mass abd/pelvis CT for staging TECHNIQUE: Multiaxial CT images of the abdomen and pelvis were performed following the use of intravenous and oral contrast. A dose lowering technique was utilized adhering to the principles of ALARA. COMPARISON STUDY: None. FINDINGS: Bilateral pleural effusions. Bibasilar lower lobe atelectatic change. Liver enhances uniformly. Spleen is uniform. Mild hyperplastic change of the adrenal glands. Moderate cortical scarring and thinning of the kidneys bilaterally. No evidence for renal hydronephrosis. Several small microcysts of the renal cortices bilaterally. Pancreas demonstrates small cystic changes of the pancreatic body and head measuring 5 mm or less. These most likely represent small ipmn change. Mild nonspecific wall thickening of the cecum. Soft tissue mass within the mid a sending colon measuring 4 x 3 cm. Several small nodes immediately adjacent to the cecum measuring up to 6 mm. Significant or bulky pericolonic adenopathy is not appreciated. The remainder the colon shows scattered diverticuli. No evidence for diverticulitis. Bladder is mildly distended. Prior prostatectomy. No significant adenopathy within the inguinal pelvic or abdominal regions. Degenerative change of the osseous structures with no true lytic or blastic process. IMPRESSION: 1. A sending colon mass measuring 4 x 3 cm. 2. No evidence for local invasion. 3. No significant adenopathy. 4. Bilateral pleural effusions with basilar atelectasis. 5. Moderate bladder distention. 6. Nonspecific mild wall thickening of the cecum. The above report was generated using voice recognition software. It may contain grammatical, syntax or spelling errors. Electronically signed by: Bruno Crespo M.D. 07/18/2017 9:06 PM Dictated Date/Time: 07/18/2017 8:59 PM
[2017-07-18] MEDS: METOPROLOL SUCC 25MG EXT REL TAB PO SCH (21:26)
[2017-07-18] MEDS: AMIODARONE 200 MG TAB PO SCH (21:26)
[2017-07-18] MEDS ORDERED: LORAZEPAM 1 MG TAB PO ONE (21:58)
[2017-07-18 23:33] VITALS: BP 151/79; PULSE 59; TEMP 37.2; O2SAT 96
[2017-07-19] MEDS: ZOLPIDEM TARTRATE 5 MG TAB PO SCH ×2 (00:44→23:33)
[2017-07-19] MEDS ORDERED: LORAZEPAM 1 MG TAB PO ONE (00:45)
[2017-07-19] MEDS: D5W AND 1/2NSS + 20MEQ KCL 1,000 ML IV SCH ×2 (00:46→23:35)
[2017-07-19 03:33] VITALS: BP 116/64; PULSE 63; TEMP 37.1; O2SAT 98
[2017-07-19] MEDS: PANTOprazole INJ 40 MG in DEXTROSE 5% 100ML IV SCH ×2 (03:52→08:31)
[2017-07-19 05:38] LABS: MEAN CELL VOLUME 79.2 fL (80-100); MEAN CORPUSCULAR HEMOGLOBIN 24.9 pg (25-34); MEAN CORPUSCULAR HGB CONC 31.4 g/dl (32-36); MEAN PLATELET VOLUME 9.1 fL (7.4-10.4); PLATELET COUNT 217 K/uL (130-400); RED CELL DISTRIBUTION WIDTH CV 25.9 % (11.5-14.5); RED CELL DISTRIBUTION WIDTH SD 71.7 fL (36.4-46.3); WHITE BLOOD COUNT 9.49 K/uL (4.8-10.8)
[2017-07-19 05:45] LABS: INR 1.5 (0.9-1.1)
[2017-07-19 05:54] LABS: CALCIUM 7.5 mg/dl (8.5-10.1); CREATININE 0.88 mg/dl (0.60-1.40); POTASSIUM 3.7 mmol/L (3.5-5.1)
[2017-07-19] MEDS: INSULIN ASPART 100 UNITS/ML 3 ML PEN SC SCH ×4 (07:00→21:00)
[2017-07-19] MEDS: FERROUS SULFATE 325 MG TAB PO SCH ×2 (07:30→16:45)
[2017-07-19 08:06] VITALS: BP 161/87; PULSE 59; TEMP 36.7; O2SAT 98
[2017-07-19] MEDS: SUCRALFATE 1 GM/10 ML UDC PO SCH ×4 (09:51→23:35)
[2017-07-19] MEDS: PANTOprazole SOD 40 MG TAB PO SCH (09:51)
--- NOTE | 2017-07-19 11:57 | Gastroenterology Progress Note ---
Progress Note Date of Service: Jul 19, 2017 Subjective Pt evaluation today including: conversation w/ patient, physical exam, chart review, lab review, review of studies, review of inpatient medication list Pt's having mild RLQ abd discomfort, no n/v. 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 Colonoscopy showed ascending colon mass suspected to be malignant, colon polyps removed. Bx pending. CT chest/abd/pelvis showed 4x3cm ascending colon mass w no adenopathy or mets to lungs. Review of Systems Constitutional: No fever, No chills Respiratory: No cough, No shortness of breath Cardiac: No chest pain Abdomen: + see HPI, No pain, No nausea, No vomiting Medications Current Inpatient Medications Medications (Trade) Dose Ordered Sig/Cholo Route Start Time Stop Time Status Last Admin Dose Admin Acetaminophen (Tylenol Tab) 650 mg Q4H PRN PO 07/17/17 17:15 08/16/17 17:14 Insulin Aspart (novoLOG ASPART) SLIDING SCALE If C... ACHS SC 07/17/17 21:00 08/16/17 20:59 07/18/17 21:29 1 UNITS Glucose (Glucose 40% Gel) 15-30 GRAMS 15 GRAMS... UD PRN PO 07/17/17 17:15 08/16/17 17:14 Glucose (Glucose Chew Tab) 4-8 Tablets 4 Tabl... UD PRN PO 07/17/17 17:15 08/16/17 17:14 Dextrose (Dextrose 50% 50ML Syringe) 25-50ML OF 50% DW IV FOR... UD PRN IV 07/17/17 17:15 08/16/17 17:14 07/18/17 08:36 25 ML Glucagon (Glucagon Inj) 1 mg UD PRN SQ 07/17/17 17:15 08/16/17 17:14 Amiodarone HCl (Cordarone Tab) 200 mg QPM PO 07/17/17 21:00 08/16/17 20:59 07/18/17 21:26 200 MG Metoprolol Succinate (Toprol Xl Tab) 25 mg QPM PO 07/17/17 21:00 08/16/17 20:59 07/18/17 21:26 25 MG Zolpidem Tartrate (Ambien Tab) 5 mg HS PO 07/17/17 21:00 08/16/17 20:59 07/19/17 00:44 5 MG Ferrous Sulfate (Feosol Tab) 325 mg BIDM PO 07/17/17 16:45 08/16/17 16:44 07/17/17 18:15 325 MG Miscellaneous Information (Order Awaiting Action) 1 ea QS N/A 07/18/17 00:00 08/17/17 00:00 Potassium Chloride/Dextrose/ Sod Cl 1,000 ml @ 80 mls/hr [id number] IV 07/17/17 18:30 08/16/17 18:29 07/19/17 00:46 80 MLS/HR Miscellaneous (Iv Fluids Completed) 1 ea PRN PRN N/A 07/17/17 19:15 07/17/18 19:14 Ioversol (Optiray 320) 115 ml UD PRN IV 07/18/17 21:00 07/22/17 20:59 Lorazepam (Ativan Tab) hold for sedation/ confusion HS PO 07/19/17 21:00 08/16/17 20:59 Sucralfate (Carafate Susp) 1 gm QID PO 07/19/17 10:00 08/18/17 09:59 07/19/17 09:51 1 GM Pantoprazole Sodium (Protonix Tab) 40 mg QAM PO 07/19/17 10:00 08/18/17 09:59 07/19/17 09:51 40 MG Objective Vital Signs Date Time Temp Pulse Resp B/P (MAP) Pulse Ox O2 Delivery O2 Flow Rate FiO2 07/19/17 08:06 36.7 59 20 161/87 (111) 98 Room Air 07/19/17 08:00 Room Air 07/19/17 04:00 Room Air 07/19/17 03:33 37.1 63 18 116/64 (81) 98 Room Air 07/18/17 23:59 Room Air 07/18/17 23:33 37.2 59 20 151/79 (103) 96 Room Air 07/18/17 20:22 36.6 61 16 170/76 (107) 99 Room Air 07/18/17 20:00 Room Air 07/18/17 17:30 Room Air 07/18/17 17:01 61 16 156/72 (100) 99 Room Air 07/18/17 16:46 62 16 158/69 (98) 99 Room Air 07/18/17 16:31 71 16 144/69 (94) 100 Room Air 07/18/17 13:55 36.6 77 20 174/100 (124) 99 Room Air 07/18/17 12:00 Room Air Physical Exam General Appearance: WD/WN, no apparent distress Eyes: normal inspection, PERRL, EOMI Neck: supple, no JVD, trachea midline Respiratory/Chest: normal breath sounds, no respiratory distress, no accessory muscle use Cardiovascular: regular rate, rhythm, no gallop, no murmur Abdomen: normal bowel sounds, non tender, soft Extremities: normal inspection, no pedal edema, no calf tenderness Neurologic/Psych: alert, normal mood/affect, oriented x 3 Skin: normal color, no jaundice, no rash Laboratory Results Last 24 Hours Test 07/18/17 13:15 07/18/17 17:39 07/18/17 20:30 07/19/17 00:06 Bedside Glucose 86 mg/dl 116 mg/dl 170 mg/dl 154 mg/dl Test 07/19/17 05:11 07/19/17 06:47 White Blood Count 9.49 K/uL Red Blood Count 4.42 M/uL Hemoglobin 11.0 g/dL Hematocrit 35.0 % Mean Corpuscular Volume 79.2 fL Mean Corpuscular Hemoglobin 24.9 pg Mean Corpuscular Hemoglobin Concent 31.4 g/dl RDW Standard Deviation 71.7 fL RDW Coefficient of Variation 25.9 % Platelet Count 217 K/uL Mean Platelet Volume 9.1 fL Prothrombin Time 15.7 SECONDS Prothromb Time International Ratio 1.5 Sodium Level 135 mmol/L Potassium Level 3.7 mmol/L Chloride Level 102 mmol/L Carbon Dioxide Level 24 mmol/L Anion Gap 9.0 mmol/L Blood Urea Nitrogen 7 mg/dl Creatinine 0.88 mg/dl Est Creatinine Clear Calc Drug Dose 73.1 ml/min Estimated GFR () 92.7 Estimated GFR (Non- 80.0 BUN/Creatinine Ratio 8.4 Random Glucose 159 mg/dl Calcium Level 7.5 mg/dl Bedside Glucose 153 mg/dl Assessment and Plan Pt is a 82 y/o male seen in GI clinic previously for iron deficiency anemia, admitted for EGD/Colonoscopy due to his cardiovascular disease hx. 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 Bx pending. CT chest/abd/pelvis showed 4x3cm ascending colon mass w/o significant lymphadenopathy, no mets. - Keep on CL diet - Surgery to re-eval pt today to see if he's a candidate for R hemicolectomy; likely needs cardiac clearance first - PPI gtt DC'd; changed to Protonix 40mg daily. Add also Carafate 1g QID - Will follow up on path results. I performed a history and physical examination of the patient, including specifically on physical exam - no abdominal tenderness. I have discussed the patient's management with ALLIE See. Please refer to the nurse practitioner's note for the documented findings and plan of care. Needs right hemicolectomy, no evidence of Mets on imaging. Currently no evidence of rectal bleeding and H/H stable. Patient wants surgery as inpatient if possible.
[2017-07-19 12:10] VITALS: BP 161/83; PULSE 63; TEMP 37.1; O2SAT 99
--- NOTE | 2017-07-19 13:28 | Surgery Progress Note ---
Surgery Progress Note Date of Service Jul 19, 2017. Subjective Post OP Day: HD # 2, s/p EGD/Colonoscopy + feeling well some RLQ abdominal pain, no nausea or vomiting. would like cardiology evaluation prior to any surgical intervention, follows with Dr. Dacosta regularly. would also like to wait for pathology results prior to any surgical intervention Objective Vital Signs: Date Time Temp Pulse Resp B/P (MAP) Pulse Ox O2 Delivery O2 Flow Rate FiO2 07/19/17 12:10 37.1 63 20 161/83 (109) 99 07/19/17 12:00 Room Air 07/19/17 08:06 36.7 59 20 161/87 (111) 98 Room Air 07/19/17 08:00 Room Air 07/19/17 04:00 Room Air 07/19/17 03:33 37.1 63 18 116/64 (81) 98 Room Air 07/18/17 23:59 Room Air 07/18/17 23:33 37.2 59 20 151/79 (103) 96 Room Air 07/18/17 20:22 36.6 61 16 170/76 (107) 99 Room Air 07/18/17 20:00 Room Air 07/18/17 17:30 Room Air 07/18/17 17:01 61 16 156/72 (100) 99 Room Air 07/18/17 16:46 62 16 158/69 (98) 99 Room Air 07/18/17 16:31 71 16 144/69 (94) 100 Room Air 07/18/17 13:55 36.6 77 20 174/100 (124) 99 Room Air General Appearance: WD/WN, no apparent distress Head: normocephalic, atraumatic Neck: trachea midline Respiratory/Chest: no respiratory distress, no accessory muscle use Laboratory Results: Results Past 24 Hours Test 07/18/17 17:39 07/18/17 20:30 07/19/17 00:06 07/19/17 05:11 Range/Units Bedside Glucose 116 170 154 70-99 mg/dl White Blood Count 9.49 4.8-10.8 K/uL Red Blood Count 4.42 4.7-6.1 M/uL Hemoglobin 11.0 14.0-18.0 g/dL Hematocrit 35.0 42-52 % Mean Corpuscular Volume 79.2 80-100 fL Mean Corpuscular Hemoglobin 24.9 25-34 pg Mean Corpuscular Hemoglobin Concent 31.4 32-36 g/dl RDW Standard Deviation 71.7 36.4-46.3 fL RDW Coefficient of Variation 25.9 11.5-14.5 % Platelet Count 217 130-400 K/uL Mean Platelet Volume 9.1 7.4-10.4 fL Prothrombin Time 15.7 9.0-12.0 SECONDS Prothromb Time International Ratio 1.5 0.9-1.1 Sodium Level 135 136-145 mmol/L Potassium Level 3.7 3.5-5.1 mmol/L Chloride Level 102 98-107 mmol/L Carbon Dioxide Level 24 21-32 mmol/L Anion Gap 9.0 3-11 mmol/L Blood Urea Nitrogen 7 7-18 mg/dl Creatinine 0.88 0.60-1.40 mg/dl Est Creatinine Clear Calc Drug Dose 73.1 ml/min Estimated GFR () 92.7 Estimated GFR (Non- 80.0 BUN/Creatinine Ratio 8.4 10-20 Random Glucose 159 70-99 mg/dl Calcium Level 7.5 8.5-10.1 mg/dl Test 07/19/17 06:47 07/19/17 11:30 Range/Units Bedside Glucose 153 132 70-99 mg/dl Assessment & Plan 82 year-old male who underwent EGD/Colonoscopy yesterday found to have large ulcerated bleeding mass in the ascending colon and multiple small polyps in the ascending and sigmoid colon. CT scan of abd/pelvis/chest shows ascending colon mass measuring 4 x 3 cm no evidence of mets. Pathology from colonoscopy still pending. - H&H stable - minimal RLQ abdominal pain Plan: Given patient's cardiac history would like cardiology consultation for preoperative clearance. awaiting final pathology results Dr. Esposito has discussed with patient the option of right hemicolectomy with primary anastomosis. Patient would like to proceed with surgery only after cardiology evaluation and pathology results have returned. Patient may have clear liquids, NPO after midnight If pathology results not returned by tomorrow, Patient could be discharged home and scheduled for outpatient surgery on Monday with Dr. Esposito. Continue current medical management Will follow Dr. Esposito has seen and examined patient, agrees with above.
--- NOTE | 2017-07-19 14:26 | ECHOCARDIOGRAM REPORT ---
*NOTICE TO RECEIVING DEMOCRAT AGENCY This information is strictly Confidential and protected under [place] law. [place] law prohibits you from making any further disclosure of this information unless further disclosure is expressly permitted by the written consent of the person to whom it pertains or is authorized by law. A general authorization for the release of medical or other information is not sufficient for this purpose. Hospital accepts no responsibility if the information is made available to any other person, INCLUDING THE PATIENT. Interpretation Summary * Name: MINERVA NICOLE Study Date: 07/19/2017 12:53 PM BP: 161/83 mmHg * Patient Location: C.2T\S\S229\S\2 HR: 79 * : 1935 (M/d/y) Gender: Male Height: 73 in * Age: 82 yrs Ethnicity: CA Weight: 205 lb * Ordering Physician: Nilay Marcelo * Referring Physician: Sean Walker * Performed By: Mckenzie To RDCS * * Reason For Study: ISCHEMIC CARDIOMYOPATHY * BSA: 2.2 m2 * -- Conclusions -- * The left ventricle is normal in size. * There is mild concentric left ventricular hypertrophy. * Apical wall motion abnormality may reflect pacemaker activation. * Ejection Fraction = 50-55%. * The right ventricle is normal in size and function. * There is a pacemaker lead in the right ventricle. * Borderline left atrial enlargement. * Aortic valve sclerosis mild, without significant aortic valvular stenosis. * Doppler findings do not suggest pulmonary hypertension. Procedure Details * A contrast injection of Definity was performed to improve assessment of LV function. * Contrast was injected into an intravenous site in the left arm. * One vial of Definity ultrasound contrast was diluted in normal saline to a total volume of 10 ml. A total of '1' ml of solution was administered during imaging. * Lot # [id number] of Definity utilized for procedure. * Expiration date AUG 10. * The attending nurse who injected the contrast agent was CINDY MENDEZ RN. * A complete two-dimensional transthoracic echocardiogram was performed (2D, M-mode, Doppler and color flow Doppler). Left Ventricle * The left ventricle is normal in size. * There is mild concentric left ventricular hypertrophy. * Ejection Fraction = 50-55%. * Apical wall motion abnormality may reflect pacemaker activation. Right Ventricle * The right ventricle is normal in size and function. * There is a pacemaker lead in the right ventricle. Atria * Borderline left atrial enlargement. * Right atrial size is normal. * No ASD detected; PFO is not assessed. Mitral Valve * The mitral valve anatomy is normal. * There is no mitral valve stenosis. * There is trace mitral regurgitation. Tricuspid Valve * The tricuspid valve anatomy is normal. * There is no tricuspid stenosis. * There is trace tricuspid regurgitation. * Doppler findings do not suggest pulmonary hypertension. Aortic Valve * The aortic valve is trileaflet. * Aortic valve sclerosis mild, without significant aortic valvular stenosis. * No aortic regurgitation is present. Pulmonic Valve * The pulmonic valve is not well visualized. Great Vessels * The aortic root is normal size. Pericardium/Pleural * There is a trivial posterior pericardial effusion of non-hemodynamic significance * There is no pericardial effusion. Great Vessels * Normal inferior vena cava diameter and respiratory variation suggests normal central venous pressure. MMode 2D Measurements and Calculations IVSd 1.2 cm IVSs 1.7 cm LVIDd 5.0 cm LVIDs 3.8 cm LVPWd 1.3 cm LVPWs 1.6 cm IVS/LVPW 0.94 FS 23.9 % EDV(Teich) 117.7 ml ESV(Teich) 62.0 ml EF(Teich) 47.4 % EDV(cubed) 124.3 ml ESV(cubed) 54.9 ml EF(cubed) 55.9 % % IVS thick 33.6 % % LVPW thick 18.2 % LV mass(C)d 255.7 grams LV mass(C)dI 117.6 grams/m\S\2 LV mass(C)s 242.8 grams LV mass(C)sI 111.7 grams/m\S\2 SV(Teich) 55.8 ml SI(Teich) 25.7 ml/m\S\2 SV(cubed) 69.4 ml SI(cubed) 31.9 ml/m\S\2 Ao root diam 3.1 cm Ao root area 7.4 cm\S\2 LA dimension 4.1 cm LA/Ao 1.4 LVAd ap4 38.5 cm\S\2 LVLd ap4 9.3 cm EDV(MOD-sp4) 136.9 ml EDV(sp4-el) 135.6 ml LVAs ap4 25.5 cm\S\2 LVLs ap4 8.8 cm ESV(MOD-sp4) 64.8 ml ESV(sp4-el) 62.7 ml EF(MOD-sp4) 52.7 % EF(sp4-el) 53.8 % LVAd ap2 35.6 cm\S\2 LVLd ap2 9.1 cm EDV(MOD-sp2) 117.9 ml EDV(sp2-el) 118.4 ml LVAs ap2 23.0 cm\S\2 LVLs ap2 7.9 cm ESV(MOD-sp2) 55.6 ml ESV(sp2-el) 57.1 ml EF(MOD-sp2) 52.8 % EF(sp2-el) 51.7 % LVLd %diff -1.94 % EDV(MOD-bp) 124.0 ml LVLs %diff -12.14 % ESV(MOD-bp) 60.4 ml EF(MOD-bp) 51.3 % SV(MOD-sp4) 72.2 ml SI(MOD-sp4) 33.2 ml/m\S\2 SV(MOD-sp2) 62.3 ml SI(MOD-sp2) 28.6 ml/m\S\2 SV(MOD-bp) 63.6 ml SI(MOD-bp) 29.3 ml/m\S\2 SV(sp4-el) 73.0 ml SI(sp4-el) 33.6 ml/m\S\2 SV(sp2-el) 61.3 ml SI(sp2-el) 28.2 ml/m\S\2 Doppler Measurements and Calculations Ao V2 max 114.7 cm/sec Ao max PG 5.3 mmHg Ao max PG (full) 2.9 mmHg LV V1 max PG 2.3 mmHg LV V1 max 76.6 cm/sec TR max gina 224.4 cm/sec
[2017-07-19 15:19] VITALS: BP 149/75; PULSE 77; PULSE 97; TEMP 36.4; O2SAT 97
--- NOTE | 2017-07-19 16:26 | CARDIOLOGY CONSULTATION ---
DATE OF CONSULTATION: 07/19/2017 REFERRING PHYSICIAN: Dr. Hawthorne; PRIMARY CARE PHYSICIAN: Dr. Dhillon. INDICATIONS: Preoperative evaluation, planned right hemicolectomy for presumed malignant ascending colon mass. 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 The patient presents on hospitalization for a microcytic anemia and subsequent colonoscopy which ultimately revealed the ascending colonic mass. He is referred now for preoperative assessment. The patient notes no recent angina symptom, has a history of past and most recent lower extremity edema. Notes no syncope or near syncope. Notes he is gradually slowed over the past 1-2 years and now is ambulatory about his home with use of a walker. Notes no specific change in functional capacity. Notes no recent myocardial infarction, tachyarrhythmia, syncope or near syncope. Notes no change in sleep pattern. Did have an association with recent anemia, increasing lower extremity edema, has been begun on diuretic therapy for such. The patient notes he has not been initiated. Notes no recent fevers, chills or infections. Weight is trending slowly downward. Notes no cough, hoarseness, wheeze or hemoptysis. Does note chronic dyspnea which is unchanged. 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 ALLERGIES: SULFITES AND COZAAR. MEDICATIONS PRIOR TO HOSPITALIZATION: Furosemide 20 mg 1 tablet daily for 5 days, not initiated; ferrous sulfate 325 mg twice per day for approximately 3 weeks, metoprolol succinate 25 mg p.o. every day, Ambien 5 mg at bedtime p.r.n. sleep, Lantus insulin, amiodarone 200 mg p.o. day, doxycycline 100 mg p.o. every day, warfarin 2 mg p.o. every day and as directed, Mag-Ox 400 mg p.o. every day, aspirin 81 mg per day, Ocuvite 1 daily, loratadine 10 mg every day, thiamine 100 mg p.o. every day, and multivitamin per day. PAST SURGICAL HISTORY: Notable for prior radical prostatectomy in 1998 and remote tonsillectomy. FAMILY HISTORY: Not specifically notable for cardiac disease, per patient. 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 He is a nonsmoker. Occasional alcoholic beverages in the past, none since May 2012. PHYSICAL EXAMINATION: VITAL SIGNS: Heart rate is 63, blood pressure is 161/83. HEENT: Normocephalic, atraumatic. NECK: Thick. There is no distinct jugular venous distention. LUNGS: Revealed mildly diminished breath sounds but are generally clear. CARDIOVASCULAR: Regular with paced rhythm. ABDOMEN: Soft, nondistended. EXTREMITIES: Without cyanosis or clubbing. There is 1+ lower extremity edema to the hips. There are intact distal pulses. Pacemaker sites without irritation or tenderness. LABORATORY DATA: White cell count is 9.4, hemoglobin is 11.0, hematocrit is 35.0. Sodium is 135, potassium is 3.7, chloride is 102, bicarbonate is 24, BUN is 7, and creatinine is 0.88. IMAGING DATA: Chest x-ray reveals cardiomegaly. CT scan of the chest revealed small pleural effusions, but otherwise negative CT scan. Abdominal CAT scan revealed ascending colon mass with nonspecific thickening of the cecum. Albumin level was noted to be 2.7. IMPRESSION: The patient is an 82-year-old male with past history of mixed cardiomyopathy with branch vessel coronary artery disease, compensated class 2 congestive failure. Echocardiogram today demonstrates ejection fraction of 45-50% with dyssynergic septal contraction pattern, no significant valvular disease. Exam does not reflect acute pulmonary congestive heart failure, mild peripheral edema and effusions, likely on the basis of low albumin. The patient is referred for preoperative evaluation. Assessment discussed in detail with the patient. The patient has no absolute contraindications to surgery based on cardiac status. He has had no recent myocardial infarction, significant arrhythmia or valvular disease, heart failure. Left ventricular systolic function is estimated at approximately 50%, but no severe valvular disease. The patient's surgical risk will be elevated given patient's multiple underlying medical morbidities. He remains on chronic amiodarone therapy due to past excessive ventricular ectopy with good suppression. Pacemaker is functioning appropriately. RECOMMENDATIONS: The patient's above findings will be discussed in detail. Operative risk will be increased based on underlying medical issues as described including low albumin and mild diffuse edema. Would recommend instituting furosemide as previously prescribed, supplementing potassium. Continue current dosing of amiodarone and metoprolol. No other testing or intervention warranted at this time. The patient has no history of angina or myocardial infarction, now or in the past. MTDD
--- NOTE | 2017-07-19 17:18 | Progress Note ---
Medicine Progress Note Date & Time of Visit: Jul 19, 2017 at 17:05. Subjective Pt was seen and examined Lying in bed with no distress Pt denies any chest pain, palpitation, dizziness and SOB Objective Last 8 Hrs Date Time Temp Pulse Resp B/P (MAP) Pulse Ox O2 Delivery O2 Flow Rate FiO2 07/19/17 16:00 Room Air 07/19/17 15:19 36.4 77 18 149/75 (99) 97 Room Air 97 07/19/17 12:10 37.1 63 20 161/83 (109) 99 07/19/17 12:00 Room Air Physical Exam: General- No acute distress Head- atraumatic Eyes- PERRL, EOMI ENT- oropharynx clear Neck- supple, no JVD Lungs- clear to auscultation Heart- regular rhythm Abdomen- normal bowel sounds, soft Extremities- no calf tenderness; Neuro- alert, oriented x 3; PERRL, EOMI; no facial palsy; Skin- warm & dry Laboratory Results: Last 24 Hours Test 07/18/17 17:39 07/18/17 20:30 07/19/17 00:06 07/19/17 05:11 Bedside Glucose 116 mg/dl 170 mg/dl 154 mg/dl White Blood Count 9.49 K/uL Red Blood Count 4.42 M/uL Hemoglobin 11.0 g/dL Hematocrit 35.0 % Mean Corpuscular Volume 79.2 fL Mean Corpuscular Hemoglobin 24.9 pg Mean Corpuscular Hemoglobin Concent 31.4 g/dl RDW Standard Deviation 71.7 fL RDW Coefficient of Variation 25.9 % Platelet Count 217 K/uL Mean Platelet Volume 9.1 fL Prothrombin Time 15.7 SECONDS Prothromb Time International Ratio 1.5 Sodium Level 135 mmol/L Potassium Level 3.7 mmol/L Chloride Level 102 mmol/L Carbon Dioxide Level 24 mmol/L Anion Gap 9.0 mmol/L Blood Urea Nitrogen 7 mg/dl Creatinine 0.88 mg/dl Est Creatinine Clear Calc Drug Dose 73.1 ml/min Estimated GFR () 92.7 Estimated GFR (Non- 80.0 BUN/Creatinine Ratio 8.4 Random Glucose 159 mg/dl Calcium Level 7.5 mg/dl Test 07/19/17 06:47 07/19/17 11:30 Bedside Glucose 153 mg/dl 132 mg/dl Assessment & Plan This is an 82-year-old male with a past medical history of mixed systolic and diastolic CHF, A Fib (on Coumadin), complete heart block (s/p pacemaker placement), DM II, HTN and other medical problems listed below who is being directly admitted for observation during bowel prep with plans for an EGD/ colonoscopy tomorrow. Iron deficiency anemia: Hbg 11.1 today EGD done showed normal esophagus. gastric antral vascular ectasia without bleeding GI recommended to continue clear liquid diet. IV PPI changed to PO daily for 4weeks Continue sucralfate 1 g PO QID for 1 week Colonoscopy done showed -Malignant looking mass in the ascending colon. - The examined portion of the ileum was normal. - Two 8 mm polyps in the cecum, and three 5 mm polyps in the sigmoid colon, CT chest/Abd/pelvis showed no metastasis. A sending colon mass measuring 4 x 3 cm. No evidence for local invasion. Case discussed with Surgery, waiting for pathology report If pathology result back tomorrow, will proceed with surgery. If result still pending, surgery will plan on Monday as an outpatient Cardiology consult for surgical clearance NPO after midnight Hypokalemia K stable Monitor BMP Mixed systolic, diastolic CHF: No signs of overload Last echo was Apr 08 with EF of 46% (improved from 30%) .Normal LV size with mild concentric LVH Mildly reduced LV systolic function with abnormal septal wall motion consistent with RV pacemaker activation along with mild global hypokinesis 07/19 Cardiology on board Denies any chest pain and SOB No absolute contraindications to proceed with surgery based on cardiac status. He has had no recent myocardial infarction, significant arrhythmia or valvular disease, heart failure. Surgical risk elevated given with pt cardiac history and commodities. Pt understood surgical risks such as ID, ECHO DONE -- Conclusions -- * The left ventricle is normal in size. * There is mild concentric left ventricular hypertrophy. * Apical wall motion abnormality may reflect pacemaker activation. * Ejection Fraction = 50-55%. * The right ventricle is normal in size and function. * There is a pacemaker lead in the right ventricle. * Borderline left atrial enlargement. * Aortic valve sclerosis mild, without significant aortic valvular stenosis. * Doppler findings do not suggest pulmonary hypertension. A Fib: Coumadin held for procedure Continue amiodarone, metoprolol succinate INR 1.5 Continue holding coumadin DM II: Hgb a1c of 5.5 in June 2017 Hold home agents SSI while in-patient BSG AC HS HTN: Cont beta james Stable Insomnia: Cont home dose ativan, ambien DVT Ppx: SCDs. Code status: FULL code Current Inpatient Medications: Current Inpatient Medications Medications (Trade) Dose Ordered Sig/Cholo Route Start Time Stop Time Status Last Admin Dose Admin Acetaminophen (Tylenol Tab) 650 mg Q4H PRN PO 07/17/17 17:15 08/16/17 17:14 Insulin Aspart (novoLOG ASPART) SLIDING SCALE If C... ACHS SC 07/17/17 21:00 08/16/17 20:59 07/18/17 21:29 1 UNITS Glucose (Glucose 40% Gel) 15-30 GRAMS 15 GRAMS... UD PRN PO 07/17/17 17:15 08/16/17 17:14 Glucose (Glucose Chew Tab) 4-8 Tablets 4 Tabl... UD PRN PO 07/17/17 17:15 08/16/17 17:14 Dextrose (Dextrose 50% 50ML Syringe) 25-50ML OF 50% DW IV FOR... UD PRN IV 07/17/17 17:15 08/16/17 17:14 07/18/17 08:36 25 ML Glucagon (Glucagon Inj) 1 mg UD PRN SQ 07/17/17 17:15 08/16/17 17:14 Amiodarone HCl (Cordarone Tab) 200 mg QPM PO 07/17/17 21:00 08/16/17 20:59 07/18/17 21:26 200 MG Metoprolol Succinate (Toprol Xl Tab) 25 mg QPM PO 07/17/17 21:00 08/16/17 20:59 07/18/17 21:26 25 MG Zolpidem Tartrate (Ambien Tab) 5 mg HS PO 07/17/17 21:00 08/16/17 20:59 07/19/17 00:44 5 MG Ferrous Sulfate (Feosol Tab) 325 mg BIDM PO 07/17/17 16:45 08/16/17 16:44 07/17/17 18:15 325 MG Miscellaneous Information (Order Awaiting Action) 1 ea QS N/A 07/18/17 00:00 08/17/17 00:00 Potassium Chloride/Dextrose/ Sod Cl 1,000 ml @ 80 mls/hr [id number] IV 07/17/17 18:30 08/16/17 18:29 07/19/17 00:46 80 MLS/HR Miscellaneous (Iv Fluids Completed) 1 ea PRN PRN N/A 07/17/17 19:15 07/17/18 19:14 Ioversol (Optiray 320) 115 ml UD PRN IV 07/18/17 21:00 07/22/17 20:59 Lorazepam (Ativan Tab) hold for sedation/ confusion HS PO 07/19/17 21:00 08/16/17 20:59 Sucralfate (Carafate Susp) 1 gm QID PO 07/19/17 10:00 08/18/17 09:59 07/19/17 09:51 1 GM Pantoprazole Sodium (Protonix Tab) 40 mg QAM PO 07/19/17 10:00 08/18/17 09:59 07/19/17 09:51 40 MG
[2017-07-19] MEDS: AMIODARONE 200 MG TAB PO SCH (21:00)
[2017-07-19] MEDS: METOPROLOL SUCC 25MG EXT REL TAB PO SCH (21:00)
[2017-07-19 23:30] VITALS: BP 143/72; PULSE 64; TEMP 37; O2SAT 97
[2017-07-19] MEDS: LORAZEPAM 1 MG TAB PO SCH (23:33)
[2017-07-20] VITALS (10 sets, daily range): BP systolic 133–180; BP diastolic 74–84; PULSE 60–77; TEMP 36.3–36.9; O2SAT 93–99
[2017-07-20 06:16] LABS: INR 1.5 (0.9-1.1)
[2017-07-20] MEDS: FERROUS SULFATE 325 MG TAB PO SCH ×2 (07:30→17:30)
[2017-07-20] MEDS: INSULIN ASPART 100 UNITS/ML 3 ML PEN SC SCH ×3 (07:38→17:30)
[2017-07-20] MEDS: SUCRALFATE 1 GM/10 ML UDC PO SCH ×4 (09:00→21:00)
[2017-07-20] MEDS: D5W AND 1/2NSS + 20MEQ KCL 1,000 ML IV SCH ×4 (09:00→20:26)
[2017-07-20] MEDS: PANTOprazole SOD 40 MG TAB PO SCH (09:00)
--- NOTE | 2017-07-20 10:18 | Progress Note ---
Medicine Progress Note Date & Time of Visit: Jul 20, 2017 at 10:07. 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 I notified Surgery that plan to take him to OR today for right hemicolectomy Pt denies any chest pain, palpitation, dizziness and SOB Objective Last 8 Hrs Date Time Temp Pulse Resp B/P (MAP) Pulse Ox O2 Delivery O2 Flow Rate FiO2 07/20/17 08:00 Room Air 07/20/17 07:40 36.5 77 16 147/82 (103) 99 Room Air 07/20/17 04:00 Room Air 07/20/17 03:30 36.9 70 18 133/74 (93) 96 Room Air Physical Exam: General- No acute distress Head- atraumatic Eyes- PERRL, EOMI ENT- oropharynx clear Neck- supple, no JVD Lungs- clear to auscultation Heart- regular rhythm Abdomen- normal bowel sounds, soft Extremities- no calf tenderness; Neuro- alert, oriented x 3; PERRL, EOMI; no facial palsy; Skin- warm & dry Laboratory Results: Last 24 Hours Test 07/19/17 11:30 07/19/17 16:17 07/19/17 19:56 07/20/17 05:29 Bedside Glucose 132 mg/dl 112 mg/dl 142 mg/dl Prothrombin Time 15.2 SECONDS Prothromb Time International Ratio 1.5 Assessment & Plan This is an 82-year-old male with a past medical history of mixed systolic and diastolic CHF, A Fib (on Coumadin), complete heart block (s/p pacemaker placement), DM II, HTN and other medical problems listed below who is being directly admitted for observation during bowel prep with plans for an EGD/ colonoscopy tomorrow. Iron deficiency anemia: Hbg 11.1 today EGD done showed normal esophagus. gastric antral vascular ectasia without bleeding GI recommended to continue clear liquid diet. IV PPI changed to PO daily for 4weeks Continue sucralfate 1 g PO QID for 1 week Colonoscopy done showed -Malignant looking mass in the ascending colon. - The examined portion of the ileum was normal. - Two 8 mm polyps in the cecum, and three 5 mm polyps in the sigmoid colon, CT chest/Abd/pelvis showed no metastasis. A sending colon mass measuring 4 x 3 cm. No evidence for local invasion. 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 Case discussed with Surgery, plant to take to OR today for Right hemicolectomy Keep NPO for now Cardiology consult for surgical clearance Hypokalemia K stable Monitor BMP Mixed systolic, diastolic CHF: No signs of overload Last echo was Apr 08 with EF of 46% (improved from 30%) .Normal LV size with mild concentric LVH Mildly reduced LV systolic function with abnormal septal wall motion consistent with RV pacemaker activation along with mild global hypokinesis 07/20 Cardiology on board Denies any chest pain and SOB No absolute contraindications to proceed with surgery based on cardiac status. He has had no recent myocardial infarction, significant arrhythmia or valvular disease, heart failure. Surgical risk elevated given with pt cardiac history and commodities. Pt understood surgical risks such as AK, ECHO DONE -- Conclusions -- * The left ventricle is normal in size. * There is mild concentric left ventricular hypertrophy. * Apical wall motion abnormality may reflect pacemaker activation. * Ejection Fraction = 50-55%. * The right ventricle is normal in size and function. * There is a pacemaker lead in the right ventricle. * Borderline left atrial enlargement. * Aortic valve sclerosis mild, without significant aortic valvular stenosis. * Doppler findings do not suggest pulmonary hypertension. A Fib: Coumadin held for procedure Continue amiodarone, metoprolol succinate INR 1.5 Continue holding coumadin DM II: Hgb a1c of 5.5 in June 2017 Hold home agents SSI while in-patient BSG AC HS HTN: Cont beta james Stable Insomnia: Cont home dose ativan, ambien DVT Ppx: SCDs. Code status: FULL code Current Inpatient Medications: Current Inpatient Medications Medications (Trade) Dose Ordered Sig/Cholo Route Start Time Stop Time Status Last Admin Dose Admin Acetaminophen (Tylenol Tab) 650 mg Q4H PRN PO 07/17/17 17:15 08/16/17 17:14 Insulin Aspart (novoLOG ASPART) SLIDING SCALE If C... ACHS SC 07/17/17 21:00 08/16/17 20:59 07/19/17 17:18 4 UNITS Glucose (Glucose 40% Gel) 15-30 GRAMS 15 GRAMS... UD PRN PO 07/17/17 17:15 08/16/17 17:14 Glucose (Glucose Chew Tab) 4-8 Tablets 4 Tabl... UD PRN PO 07/17/17 17:15 08/16/17 17:14 Dextrose (Dextrose 50% 50ML Syringe) 25-50ML OF 50% DW IV FOR... UD PRN IV 07/17/17 17:15 08/16/17 17:14 07/18/17 08:36 25 ML Glucagon (Glucagon Inj) 1 mg UD PRN SQ 07/17/17 17:15 08/16/17 17:14 Amiodarone HCl (Cordarone Tab) 200 mg QPM PO 07/17/17 21:00 08/16/17 20:59 07/19/17 21:00 200 MG Metoprolol Succinate (Toprol Xl Tab) 25 mg QPM PO 07/17/17 21:00 08/16/17 20:59 07/19/17 21:00 25 MG Zolpidem Tartrate (Ambien Tab) 5 mg HS PO 07/17/17 21:00 08/16/17 20:59 07/19/17 23:33 5 MG Ferrous Sulfate (Feosol Tab) 325 mg BIDM PO 07/17/17 16:45 08/16/17 16:44 07/17/17 18:15 325 MG Miscellaneous Information (Order Awaiting Action) 1 ea QS N/A 07/18/17 00:00 08/17/17 00:00 Potassium Chloride/Dextrose/ Sod Cl 1,000 ml @ 80 mls/hr [id number] IV 07/17/17 18:30 08/16/17 18:29 07/19/17 23:35 80 MLS/HR Miscellaneous (Iv Fluids Completed) 1 ea PRN PRN N/A 07/17/17 19:15 07/17/18 19:14 Ioversol (Optiray 320) 115 ml UD PRN IV 07/18/17 21:00 07/22/17 20:59 Lorazepam (Ativan Tab) hold for sedation/ confusion HS PO 07/19/17 21:00 08/16/17 20:59 07/19/17 23:33 2 MG Sucralfate (Carafate Susp) 1 gm QID PO 07/19/17 10:00 08/18/17 09:59 07/19/17 23:35 1 GM Pantoprazole Sodium (Protonix Tab) 40 mg QAM PO 07/19/17 10:00 08/18/17 09:59 07/19/17 09:51 40 MG
--- NOTE | 2017-07-20 10:30 | Surgery Progress Note ---
Surgery Progress Note Date of Service Jul 20, 2017. Subjective + feeling well pt's pathology report is back- right ascending colon cancer, pt denies abdominal pain, pt agrees to do right hemicolectomy, Objective Vital Signs: Date Time Temp Pulse Resp B/P (MAP) Pulse Ox O2 Delivery O2 Flow Rate FiO2 07/20/17 08:00 Room Air 07/20/17 07:40 36.5 77 16 147/82 (103) 99 Room Air 07/20/17 04:00 Room Air 07/20/17 03:30 36.9 70 18 133/74 (93) 96 Room Air 07/20/17 00:01 Room Air 07/19/17 23:30 37.0 64 18 143/72 (95) 97 Room Air 07/19/17 16:00 Room Air 07/19/17 15:19 36.4 77 18 149/75 (99) 97 Room Air 97 07/19/17 12:10 37.1 63 20 161/83 (109) 99 07/19/17 12:00 Room Air General Appearance: WD/WN, no apparent distress Head: normocephalic Neck: supple, no JVD Respiratory/Chest: chest non-tender, lungs clear, normal breath sounds, no respiratory distress Cardiovascular: regular rate, rhythm, no edema, no gallop, no JVD Abdomen: normal bowel sounds, non tender, non distended, soft, no organomegaly Extremities: normal range of motion, non-tender, normal inspection Laboratory Results: Results Past 24 Hours Test 07/19/17 11:30 07/19/17 16:17 07/19/17 19:56 07/20/17 05:29 Range/Units Bedside Glucose 132 112 142 70-99 mg/dl Prothrombin Time 15.2 9.0-12.0 SECONDS Prothromb Time International Ratio 1.5 0.9-1.1 Assessment & Plan IMP: right colon cancer, CHF, CAD blueprint tracer saw pt, EF 45-50% I recommend to do right hemicolectomy, D/W benefits, risks and alternatives of the procedure, the risks - infection, bleeding, anastomotic leak, bowel obstruction, CO, DVT, stroke, and , pt understood, he agrees with the surgery, he signed consent, I answered all questions,
[2017-07-20] MEDS ORDERED: HYDROmorphone INJ 2 MG/ML SYR/VIAL ONE (11:35)
[2017-07-20] MEDS ORDERED: DEXAMETHASONE SOD INJ 4 MG/ML VIAL ONE (11:35)
[2017-07-20] MEDS ORDERED: MIDAZOLAM HCL 1 MG/ML 2ML VIAL ONE (11:35)
[2017-07-20] MEDS ORDERED: PROPOFOL IV EMULSION 10 MG/ML 20 ML VIAL IV ONE (11:35)
[2017-07-20] MEDS ORDERED: FENTANYL CITRATE INJ 50 MCG/1 ML 2 ML VIAL ONE ×4 (11:35→15:38)
[2017-07-20] MEDS ORDERED: LIDOCAINE HCL 2% 2 ML VIAL (20MG/ML) ONE (11:35)
[2017-07-20] MEDS ORDERED: ONDANSETRON INJ 2 MG/ML 2 ML VIAL ONE (11:35)
[2017-07-20] MEDS ORDERED: SODIUM CHLORIDE 0.9% INJ 10 ML VIAL ONE (11:36)
[2017-07-20] MEDS ORDERED: ACETAMINOPHEN 1000 MG/100 ML IV IV ONE (11:38)
--- NOTE | 2017-07-20 11:48 | Gastroenterology Progress Note ---
Gastroenterology Progress Note Pathology of the colon mass reported as invasive adenocarcinoma. I informed the patient and discussed with him in details. He is planned for surgery today with right hemicolectomy. Will need referral to Oncology clinic after discharge and needs surveillance colonoscopy in one year.
[2017-07-20] MEDS ORDERED: CIPROFLOXACIN 400MG / 200ML D5W IV SCH (12:00)
[2017-07-20] MEDS ORDERED: METRONIDAZOLE 500MG / 100ML NSS IV STA (12:11)
--- NOTE | 2017-07-20 12:11 | History & Physical Bridge Note ---
H&P Re-Evaluation Bridge Note: I have examined the patient, reviewed the History & Physical and in the interval since the performance of the History & Physical I have noted the following changes of clinical significance: No changes noted
[2017-07-20] MEDS ORDERED: BACITRACIN OINT 15 GM TUBE ONE (12:27)
[2017-07-20] MEDS ORDERED: BUPIVACAINE 0.5 % 5 MG/1 ML MPF 30ML VIAL ONE (12:27)
[2017-07-20] MEDS ORDERED: LIDOCAINE HCL 1% 20 ML VIAL ONE (12:27)
[2017-07-20] MEDS ORDERED: METRONIDAZOLE 500MG / NSS IV ONE (12:30)
[2017-07-20] MEDS ORDERED: CIPROFLOXACIN 400MG / 200ML D5W ONE (12:31)
[2017-07-20] MEDS ORDERED: ENDOSCOPIC MARKER 5 ML SYR ONE (12:49)
[2017-07-20] MEDS ORDERED: ATROPINE SULFATE 0.1 MG/ML 5ML SYR IV PRN (13:00)
[2017-07-20] MEDS ORDERED: EpHEDrine SULFATE INJ 50 MG/ML AMP IV PRN (13:00)
[2017-07-20] MEDS ORDERED: HYDROmorphone INJ 1 MG/ML SYR IV PRN (13:00)
[2017-07-20] MEDS ORDERED: ONDANSETRON INJ 2 MG/ML 2 ML VIAL IV PRN (13:00)
[2017-07-20] MEDS ORDERED: FENTANYL CITRATE INJ 50 MCG/1 ML 2 ML VIAL IV PRN (13:00)
[2017-07-20] MEDS ORDERED: METOCLOPRAMIDE HCL INJ 5 MG/ML 2 ML VIAL ONE (14:06)
[2017-07-20] MEDS ORDERED: ROCURONIUM BROMIDE 10 MG/ML 5 ML VIAL IV ONE (15:22)
[2017-07-20] MEDS ORDERED: CISATRACURIUM BESYLATE IV SOLN 2 MG/ML 10 ML VIAL ONE (15:22)
[2017-07-20] MEDS ORDERED: GLYCOPYRROLATE INJ 0.2 MG/ML VIAL ONE (15:22)
[2017-07-20] MEDS ORDERED: NEOSTIGMINE METHYLSULFATE 5 MG/5 ML SYR ONE (15:22)
[2017-07-20] MEDS ORDERED: PHENYLEPHRINE HCL INJ 10 MG/ML VIAL ONE (15:23)
[2017-07-20] MEDS ORDERED: PHENYLEPHRINE 100MCG/ML 5ML SYR ONE (15:23)
--- NOTE | 2017-07-20 15:33 | Anesthesiology Progress Note ---
Anesthesia Post Op Note Date & Time Jul 20, 2017 at 15:32 Vital Signs Pain Intensity: 0.0 Vital Signs Past 12 Hours Date Time Temp Pulse Resp B/P (MAP) Pulse Ox O2 Delivery O2 Flow Rate FiO2 07/20/17 12:26 36.5 75 20 133/77 (95) 98 Room Air 07/20/17 08:00 Room Air 07/20/17 07:40 36.5 77 16 147/82 (103) 99 Room Air 07/20/17 04:00 Room Air Notes Mental Status: alert / awake / arousable, participated in evaluation Pt Amnestic to Procedure: Yes Nausea / Vomiting: adequately controlled Pain: adequately controlled Airway Patency, RR, SpO2: stable & adequate BP & HR: stable & adequate Hydration State: stable & adequate Anesthetic Complications: no major complications apparent This post-op visit was made on July 19, 2017 @ 07:30 AM
--- NOTE | 2017-07-20 16:01 | [facility] Post Operative Brief Note ---
Immediate Operative Summary Operative Date Jul 20, 2017. Pre-Operative Diagnosis Ascending colon mass Post-Operative Diagnosis Same Procedure(s) Performed Right Hemicolectomy Surgeon Dr Esposito [facility] Physician Director Surgeon(s) Manju Parisi PA-C Estimated Blood Loss 30ml Findings Consistent with Post-Op Diagnosis ascending colon cancer, size 3x4cm Fluids (cc crystalloids) 2000ml Specimens a. Right colon Drains RENATE x1 Anesthesia Type General Complication(s) none Disposition Accompanied Pt To Recover: yes Disposition: Recovery Room / PACU
[2017-07-20] MEDS ORDERED: D5W AND 1/2NSS + 20MEQ KCL 1,000 ML IV SCH (16:15)
[2017-07-20] MEDS ORDERED: PANTOprazole INJ 40 MG in SYRINGE 0 ML IV ONE (16:30)
--- NOTE | 2017-07-20 17:03 | Anesthesiology Progress Note ---
Anesthesia Post Op Note Date & Time Jul 20, 2017 at 17:02 Vital Signs Pain Intensity: 0 Vital Signs Past 12 Hours Date Time Temp Pulse Resp B/P (MAP) Pulse Ox O2 Delivery O2 Flow Rate FiO2 07/20/17 16:50 36.4 61 14 160/78 94 Nasal Cannula 3 07/20/17 16:40 60 14 159/76 94 Nasal Cannula 3 07/20/17 16:30 62 14 162/75 98 Oxymask 10 07/20/17 16:20 60 18 173/97 99 Oxymask 10 07/20/17 16:14 36.3 60 12 169/84 99 Oxymask 10 07/20/17 12:26 36.5 75 20 133/77 (95) 98 Room Air 07/20/17 08:00 Room Air 07/20/17 07:40 36.5 77 16 147/82 (103) 99 Room Air Notes Mental Status: alert / awake / arousable, participated in evaluation Pt Amnestic to Procedure: Yes Nausea / Vomiting: adequately controlled Pain: adequately controlled Airway Patency, RR, SpO2: stable & adequate BP & HR: stable & adequate Hydration State: stable & adequate Anesthetic Complications: no major complications apparent
[2017-07-20] MEDS: MoRPHine SULFATE 2 MG/ML CARP IV PRN ×2 (17:41→20:50)
--- NOTE | 2017-07-20 18:06 | PROGRESS NOTE ---
DATE: 07/20/2017 CARDIOLOGY CONSULTATION FOLLOWUP NOTE SUBJECTIVE: The patient was seen preoperatively and postoperatively today. He tolerated surgery well. Still sedated after procedure. OBJECTIVE: VITAL SIGNS: Heart rate is 62, blood pressure is 164/76. NECK: Thick. There is no distinct jugular venous distention. LUNGS: Reveal mildly diminished breath sounds, good airway movement. CARDIOVASCULAR: Regular with paced rhythm. There is no audible ectopy. ABDOMEN: Soft with quiet bowel sounds. EXTREMITIES: Without cyanosis or clubbing. There is some trace pedal edema. DATA: Telemetry reveals ventricular paced rhythm. IMPRESSION AND PLAN: An 82-year-old male status post hemicolectomy, underlying history of chronic/persistent atrial fibrillation, mild left ventricular dysfunction, history of chronic ventricular ectopy on amiodarone suppressive therapy. The patient appears stable postoperatively. Will continue to follow the patient during this admission regarding fluid shifts and ultimate needs for initiation of medical therapies either IV or p.o., depending on bowel progression. His previous cardiac medications included Toprol-XL 25 mg per day, and amiodarone 200 mg q.p.m. and chronic anticoagulation with warfarin. Will follow closely.
--- NOTE | 2017-07-20 18:23 | OPERATIVE REPORT ---
DATE OF OPERATION: 07/20/2017 PREOPERATIVE DIAGNOSES: Right colon cancer. POSTOPERATIVE DIAGNOSIS: Same. OPERATION: Right hemicolectomy. SURGEON: Dr. Tania Esposito. [employer] TE[employer]ER: Manju Parisi PA-C ANESTHESIA: General. ESTIMATED BLOOD LOSS: About 30 mL. FINDINGS: Ascending colon tumor, size about 3 x 4 cm. COMPLICATIONS: None. INDICATIONS FOR THE PROCEDURE: This is an 82-year-old gentleman who presented with anemia. The patient had a colonoscopy, found the patient had an ascending colon mass. The patient had a biopsy. The pathology report is adenocarcinoma. The colon mass located in middle of the ascending colon and the patient will be required to do right hemicolectomy. I did talk to the patient about the benefit and risk, alternate to procedure. I indicated the risks may include but not limited such as bleeding, infection, anastomotic leak, incisional hernia, tumor recurrence, myocardial infarction, DVT, stroke, even . The patient understands and he agreed to proceed. He signed informed consent and I answered all questions. DETAILS OF PROCEDURE: We brought the patient in to the OR, put the patient in the supine position. The patient received SCDs on bilateral legs to prevent DVT. Also, the patient received 400 mg Cipro IV and 500 mg Flagyl IV for prophylactic antibiotic. The patient received general anesthesia without difficulty. The abdomen was prepped and draped in routine sterile fashion. Also, the patient received a Berman catheter I inserted. After time out, I made a midline incision, opened fascia, opened peritoneum under direct vision. Then we explored the abdomen, which shows normal finding on the liver, stomach, small bowel, large bowel, normal finding on the transverse colon, descending colon, sigmoid colon; however, there was one mass located in ascending colon sized about 3-4 cm and also I saw the tattoo ronal on the middle of the ascending colon. Then, we decided to do the right hemicolectomy. First, I mobilized the right side of the colon from the lateral peritoneum wide line and then I used the Endo-JEOVANNY staple to transect on the medial transverse colon. There was middle colic artery intact on the small bowel about 10 cm from the cecum. I used another staple to transection of the small bowel and then high ligated the right colic artery with a 10 mm clip and a high ligated right ileocolic artery with a 10 mm clip and the ureter on the right side was identified, protected at all times. Then I used endovascular staple to transect the mesentery around the right side of colon. Rechecked, no active bleeding and then we created a small bowel anastomosis by using an 18 mm Endo-JEOVANNY staple. Rechecked, no active bleeding. I used a 60 mm JEOVANNY stapler, closed the small bowel and the large opening. Rechecked, no active bleeding. Then I closed the mesenteric defect by using 0 Vicryl, interruptedly. Then I put another 2-0 Vicryl on the anastomosis site to prevent tension on the anastomosis. Rechecked anastomosis is wide open. Hemostasis was obtained. Then put one 10 mm RENATE drainage on the right lower quadrant with a 2-0 silk to fix the RENATE drainage on the skin. Again, hemostasis was obtained and rechecked, no active bleeding from the abdomen. Then we decided to close the abdomen by using #1 PDS continuous running, closed the fascial layer, closed subcutaneous layer by using 2-0 Vicryl continuous running, closed skin by using staple. Then we put the dressing on. The patient tolerated the procedure well. All the instrument, needle and sponge count were correct x2 at the end of case and the specimen sent to pathology. After procedure, the patient transferred to recovery room in stable condition. After the procedure, once the patient recovered, I talked to the patient about the OR finding and procedure we did, they understand. He also moves 4 extremities. I attest to the content of the Intraoperative Record and any orders documented therein. Any exception s are noted below.
[2017-07-20] MEDS: HYDROmorphone INJ 0.5 MG/0.5 ML SYR IV PRN (18:51)
[2017-07-20] MEDS: LORAZEPAM 1 MG TAB PO SCH (21:00)
[2017-07-20] MEDS: AMIODARONE 200 MG TAB PO SCH (21:00)
[2017-07-20] MEDS: ZOLPIDEM TARTRATE 5 MG TAB PO SCH (21:00)
[2017-07-20] MEDS ORDERED: NURSING VERBAL MED ORDER ONE (23:30)
[2017-07-21] VITALS (7 sets, daily range): BP systolic 135–183; BP diastolic 73–85; PULSE 59–66; TEMP 36.6–37.4; O2SAT 96–100
[2017-07-21] MEDS: METRONIDAZOLE / NSS 500 MG in PREMIXED NSS 100 ML IV SCH ×3 (00:18→16:11)
[2017-07-21] MEDS: CIPROFLOXACIN / D5W 400 MG in PREMIXED IN D5W 200 ML IV SCH ×3 (00:18→23:31)
[2017-07-21] MEDS: HYDROmorphone INJ 0.5 MG/0.5 ML SYR IV PRN ×3 (00:19→20:10)
[2017-07-21] MEDS: METOPROLOL TARTRATE 1 MG/ML VIAL IV. SCH ×5 (00:19→23:31)
[2017-07-21] MEDS: INSULIN ASPART 100 UNITS/ML 3 ML PEN SC SCH ×4 (00:35→18:00)
[2017-07-21] MEDS: MoRPHine SULFATE 2 MG/ML CARP IV PRN ×2 (02:26→08:37)
[2017-07-21 05:45] LABS: HEMATOCRIT 35.9 % (42-52); HEMOGLOBIN 11.1 g/dL (14.0-18.0); IG# 0.03 K/uL (0.00-0.02); LYMPH % 8.1 %; MEAN CELL VOLUME 80.9 fL (80-100); MEAN CORPUSCULAR HGB CONC 30.9 g/dl (32-36); MONO % 8.1 %; NEUT % 83.5 %; NEUT ABS # 9.23 K/uL (1.4-6.5); PLATELET COUNT 231 K/uL (130-400); RED CELL DISTRIBUTION WIDTH CV 25.7 % (11.5-14.5); RED CELL DISTRIBUTION WIDTH SD 72.9 fL (36.4-46.3); WHITE BLOOD COUNT 11.06 K/uL (4.8-10.8)
[2017-07-21] MEDS: D5W AND 1/2NSS + 20MEQ KCL 1,000 ML IV SCH ×2 (06:11→16:11)
[2017-07-21 06:26] LABS: ALBUMIN 2.4 gm/dl (3.4-5.0); CALCIUM 7.6 mg/dl (8.5-10.1); CREATININE 1.08 mg/dl (0.60-1.40); POTASSIUM 4.5 mmol/L (3.5-5.1); TOTAL PROTEIN 5.1 gm/dl (6.4-8.2)
[2017-07-21] MEDS ORDERED: FERROUS SULFATE 325 MG/7.4 ML UDP PO SCH (08:30)
[2017-07-21] MEDS: SUCRALFATE 1 GM/10 ML UDC PO SCH ×4 (08:37→22:21)
[2017-07-21] MEDS: FERROUS SULFATE 325 MG/7.4 ML UDP NG SCH ×2 (08:37→16:12)
[2017-07-21] MEDS: ENOXAPARIN 40 MG/0.4 ML SYR SQ SCH (08:38)
--- NOTE | 2017-07-21 09:26 | Surgery Progress Note ---
Surgery Progress Note Date of Service Jul 21, 2017. Subjective Post OP Day: 1 (s/p ex lap, right hemicolectomy with primary anastomosis) + feeling well, + pain controlled, No complaints, No chest pain, No ambulating, No SOB, No bowel movement, No flatus, No nausea, No vomiting Objective Vital Signs: Date Time Temp Pulse Resp B/P (MAP) Pulse Ox O2 Delivery O2 Flow Rate FiO2 07/21/17 07:56 36.6 60 20 135/73 (93) 97 Nasal Cannula 2.0 07/21/17 06:11 60 07/21/17 04:00 Nasal Cannula 2.0 07/21/17 03:09 36.9 60 18 161/75 (103) 97 Nasal Cannula 2.0 07/21/17 00:19 65 07/21/17 00:08 37.1 66 20 183/85 (117) 100 Nasal Cannula 2.0 07/20/17 23:59 Nasal Cannula 2.0 07/20/17 20:30 98 Nasal Cannula 4.0 07/20/17 20:15 36.8 61 20 180/82 (114) 99 Nasal Cannula 4.0 07/20/17 20:15 36.8 61 20 180/82 (114) 99 Nasal Cannula 4.0 07/20/17 19:15 60 14 168/79 (108) 98 Nasal Cannula 4.0 07/20/17 18:15 36.3 60 14 157/84 (108) 97 Nasal Cannula 4.0 07/20/17 17:45 62 14 164/76 (105) 95 Nasal Cannula 4.0 07/20/17 17:30 93 Nasal Cannula 4.0 07/20/17 17:15 36.4 62 14 171/83 (112) 93 Nasal Cannula 4.0 07/20/17 16:50 36.4 61 14 160/78 94 Nasal Cannula 3 07/20/17 16:40 60 14 159/76 94 Nasal Cannula 3 07/20/17 16:30 62 14 162/75 98 Oxymask 10 07/20/17 16:20 60 18 173/97 99 Oxymask 10 07/20/17 16:14 36.3 60 12 169/84 99 Oxymask 10 07/20/17 12:26 36.5 75 20 133/77 (95) 98 Room Air Physical Exam: nasogastric drainage (no ouptut) General Appearance: WD/WN, no apparent distress Head: normocephalic, atraumatic Neck: trachea midline Respiratory/Chest: no respiratory distress, no accessory muscle use Abdomen: non distended, soft, no organomegaly, no pulsatile mass, + tenderness (at midline incision and appropriate post op) Incision(s): clean (incision not inspected POD # 1), dry Laboratory Results: Results Past 24 Hours Test 07/20/17 11:07 07/20/17 16:46 07/21/17 00:02 07/21/17 05:21 Range/Units Bedside Glucose 106 127 220 70-99 mg/dl White Blood Count 11.06 4.8-10.8 K/uL Red Blood Count 4.44 4.7-6.1 M/uL Hemoglobin 11.1 14.0-18.0 g/dL Hematocrit 35.9 42-52 % Mean Corpuscular Volume 80.9 80-100 fL Mean Corpuscular Hemoglobin 25.0 25-34 pg Mean Corpuscular Hemoglobin Concent 30.9 32-36 g/dl Platelet Count 231 130-400 K/uL Mean Platelet Volume 9.0 7.4-10.4 fL Neutrophils (%) (Auto) 83.5 % Lymphocytes (%) (Auto) 8.1 % Monocytes (%) (Auto) 8.1 % Eosinophils (%) (Auto) 0.0 % Basophils (%) (Auto) 0.0 % Neutrophils # (Auto) 9.23 1.4-6.5 K/uL Lymphocytes # (Auto) 0.90 1.2-3.4 K/uL Monocytes # (Auto) 0.90 0.11-0.59 K/uL Eosinophils # (Auto) 0.00 0-0.5 K/uL Basophils # (Auto) 0.00 0-0.2 K/uL RDW Standard Deviation 72.9 36.4-46.3 fL RDW Coefficient of Variation 25.7 11.5-14.5 % Immature Granulocyte % (Auto) 0.3 % Immature Granulocyte # (Auto) 0.03 0.00-0.02 K/uL Hypochromasia PRESENT Anisocytosis PRESENT Sodium Level 133 136-145 mmol/L Potassium Level 4.5 3.5-5.1 mmol/L Chloride Level 100 98-107 mmol/L Carbon Dioxide Level 27 21-32 mmol/L Anion Gap 6.0 3-11 mmol/L Blood Urea Nitrogen 11 7-18 mg/dl Creatinine 1.08 0.60-1.40 mg/dl Est Creatinine Clear Calc Drug Dose 59.6 ml/min Estimated GFR () 73.7 Estimated GFR (Non- 63.6 BUN/Creatinine Ratio 10.6 10-20 Random Glucose 229 70-99 mg/dl Calcium Level 7.6 8.5-10.1 mg/dl Total Bilirubin 0.8 0.2-1 mg/dl Aspartate Amino Transf (AST/SGOT) 27 15-37 U/L Alanine Aminotransferase (ALT/SGPT) 35 12-78 U/L Alkaline Phosphatase 81 45-117 U/L Total Protein 5.1 6.4-8.2 gm/dl Albumin 2.4 3.4-5.0 gm/dl Globulin 2.7 2.5-4.0 gm/dl Albumin/Globulin Ratio 0.9 0.9-2 Test 07/21/17 06:07 Range/Units Bedside Glucose 208 70-99 mg/dl Colonoscopy biopsy results: C. COLON, SIGMOID (POLYPECTOMIES X3): 1. AN INFLAMED BENIGN POLYP CONSISTENT WITH A TUBULAR ADENOMA IS SEEN. 2. A HYPERPLASTIC POLYP IS NOTED. 3. A THIRD STRIP OF BENIGN COLONIC MUCOSA WITH FOCAL HYPERPLASTIC CHANGE OF THE MUCOSAL SURFACE IS SEEN. 4. HIGH-GRADE GLANDULAR DYSPLASIA AND CARCINOMA ARE NOT SEEN IN THIS PART. D. COLON, ASCENDING, ASCENDING MASS BIOPSY (BIOPSY): 1. AN INFILTRATIVE ADENOCARCINOMA IS SEEN. 2. FOUR IMMUNOHISTOCHEMICAL STAINS IN SEARCH OF MICROSATELLITE INSTABILITY, AKA MCKAY SYNDROME, WILL BE OBTAINED ON THIS PART. 3. AN ADDENDUM WILL BE ISSUED WHEN THESE IMMUNOHISTOCHEMICAL STAINS ARE AVAILABLE FOR REVIEW. 4. PLEASE NOTE THIS PART IS REVIEWED BY ONE OF MY COLLEAGUES IN THE DEPARTMENT OF PATHOLOGY AND HE AGREES WITH THE RENDERED DIAGNOSIS OF ADENOCARCINOMA. E. CECUM (POLYPECTOMIES X2): 1. AN INFLAMED TUBULAR ADENOMA IS SEEN. 2. AN INFLAMED HYPERPLASTIC POLYP IS ALSO NOTED. Assessment & Plan POD # 1 s/p ex lap, right hemicolectomy with primary anastomosis for adenocarcinoma of the right colon -vitals stable, afebrile post op - H&H stable - no return of bowel function, 0 cc NGT output - abdomen soft, tender CT scan of abd/pelvis/chest shows ascending colon mass measuring 4 x 3 cm, no evidence of mets. Plan: Continue current pain management as needed Continue cardiac monitoring, keep O2 sats > 92 % Encourage incentive spirometry Keep NPO, Cont NGT to LIS, await return of bowel function Continue Berman catheter for now, would like to d/c tomorrow morning Continue RENATE drain to bulb suction Continue post op IV abx Continue IV fluids Will ad IV Zofran prn nausea and IV Protonix daily (given EGD findings and pt has been NPO for 4 days now) Continue Lovenox/SCDs PT/OT consults, OOB to chair and ambulation with assistance Daily dressing changes to start tomorrow Continue abdominal binder [facility] covering this weekend Dr. Esposito has seen and examined patient, agrees with above.
[2017-07-21] MEDS ORDERED: ONDANSETRON INJ 2 MG/ML 2 ML VIAL IV PRN (09:30)
--- NOTE | 2017-07-21 09:49 | Anesthesiology Progress Note ---
Anesthesia Post Op Note Date & Time Jul 21, 2017 at 09:48 Vital Signs Vital Signs Past 12 Hours Date Time Temp Pulse Resp B/P (MAP) Pulse Ox O2 Delivery O2 Flow Rate FiO2 07/21/17 07:56 36.6 60 20 135/73 (93) 97 Nasal Cannula 2.0 07/21/17 06:11 60 07/21/17 04:00 Nasal Cannula 2.0 07/21/17 03:09 36.9 60 18 161/75 (103) 97 Nasal Cannula 2.0 07/21/17 00:19 65 07/21/17 00:08 37.1 66 20 183/85 (117) 100 Nasal Cannula 2.0 07/20/17 23:59 Nasal Cannula 2.0 Notes Mental Status: alert / awake / arousable, participated in evaluation Pt Amnestic to Procedure: Yes Nausea / Vomiting: adequately controlled Pain: adequately controlled Airway Patency, RR, SpO2: stable & adequate BP & HR: stable & adequate Hydration State: stable & adequate Anesthetic Complications: no major complications apparent
--- NOTE | 2017-07-21 10:21 | CARDIOLOGY PROGRESS NOTE ---
DATE: 07/21/2017 CARDIOLOGY CONSULTATION FOLLOWUP NOTE The patient was seen and examined. Chart, medications, and telemetry were reviewed. SUBJECTIVE: The patient notes no significant bowel function yet this morning. Overall, stable though, however. Pain is controlled. Notes no chest discomfort or worsening shortness of breath. Has good urine output. Heart rate is nicely controlled. OBJECTIVE: VITAL SIGNS: Heart rate 60 and blood pressure is 135/73. Telemetry reveals paced rhythm. NECK: Thick. There is no distinct jugular venous distention. LUNGS: Reveal mildly diminished breath sounds, but are clear. CARDIOVASCULAR: Regular with paced rhythm. There is no audible ectopy. ABDOMEN: Soft and quiet. EXTREMITIES: Revealed 1+ pedal edema. IMPRESSION: An 82-year-old male with a prior cardiac history as outlined notable for branch vessel coronary artery disease, mixed etiology of cardiomyopathy, return to near normal LV function, compensated class 2 heart failure, chronic atrial fibrillation with pacemaker in place and chronic ventricular ectopy. RECOMMENDATIONS: The patient's beta blockers will be switched to IV until bowel function returns. Would continue to hold amiodarone. Once the patient is able to return to oral medications, resume amiodarone and oral anticoagulation. Please call with any further questions.
[2017-07-21] MEDS ORDERED: FERROUS SULFATE 325 MG/7.4 ML UDP NG SCH (16:45)
--- NOTE | 2017-07-21 18:05 | Progress Note ---
Medicine Progress Note Date & Time of Visit: Jul 21, 2017 at 17:48. Subjective Pt was seen and examined Lying in bed with no distress Pt said that he does have some tenderness in his abdomen with movement Also has pain in the abdomen whenever he takes a deep breath Pain seems to be controlled with pain med Pt is anxious about his Ambien and Ativan because he takes them to sleep Denies any chest pain, palpitation, dizziness and SOB Objective Last 8 Hrs Date Time Temp Pulse Resp B/P (MAP) Pulse Ox O2 Delivery O2 Flow Rate FiO2 07/21/17 15:20 36.8 59 20 144/75 (98) 96 Nasal Cannula 2.0 07/21/17 12:57 36.6 60 20 143/73 (96) 98 Room Air 07/21/17 12:00 Nasal Cannula 2.0 07/21/17 11:51 60 135/73 Physical Exam: General- No acute distress Head- atraumatic Eyes- PERRL, EOMI ENT- oropharynx clear Neck- supple, no JVD Lungs- clear to auscultation Heart- regular rhythm Abdomen- abdominal binder, +tenderness. No Bowel sound Extremities- no calf tenderness; Neuro- alert, oriented x 3; PERRL, EOMI; no facial palsy; Skin- warm & dry Laboratory Results: Last 24 Hours Test 07/21/17 00:02 07/21/17 05:21 07/21/17 06:07 07/21/17 11:58 Bedside Glucose 220 mg/dl 208 mg/dl 157 mg/dl White Blood Count 11.06 K/uL Red Blood Count 4.44 M/uL Hemoglobin 11.1 g/dL Hematocrit 35.9 % Mean Corpuscular Volume 80.9 fL Mean Corpuscular Hemoglobin 25.0 pg Mean Corpuscular Hemoglobin Concent 30.9 g/dl Platelet Count 231 K/uL Mean Platelet Volume 9.0 fL Neutrophils (%) (Auto) 83.5 % Lymphocytes (%) (Auto) 8.1 % Monocytes (%) (Auto) 8.1 % Eosinophils (%) (Auto) 0.0 % Basophils (%) (Auto) 0.0 % Neutrophils # (Auto) 9.23 K/uL Lymphocytes # (Auto) 0.90 K/uL Monocytes # (Auto) 0.90 K/uL Eosinophils # (Auto) 0.00 K/uL Basophils # (Auto) 0.00 K/uL RDW Standard Deviation 72.9 fL RDW Coefficient of Variation 25.7 % Immature Granulocyte % (Auto) 0.3 % Immature Granulocyte # (Auto) 0.03 K/uL Hypochromasia PRESENT Anisocytosis PRESENT Sodium Level 133 mmol/L Potassium Level 4.5 mmol/L Chloride Level 100 mmol/L Carbon Dioxide Level 27 mmol/L Anion Gap 6.0 mmol/L Blood Urea Nitrogen 11 mg/dl Creatinine 1.08 mg/dl Est Creatinine Clear Calc Drug Dose 59.6 ml/min Estimated GFR () 73.7 Estimated GFR (Non- 63.6 BUN/Creatinine Ratio 10.6 Random Glucose 229 mg/dl Calcium Level 7.6 mg/dl Total Bilirubin 0.8 mg/dl Aspartate Amino Transf (AST/SGOT) 27 U/L Alanine Aminotransferase (ALT/SGPT) 35 U/L Alkaline Phosphatase 81 U/L Total Protein 5.1 gm/dl Albumin 2.4 gm/dl Globulin 2.7 gm/dl Albumin/Globulin Ratio 0.9 Assessment & Plan This is an 82-year-old male with a past medical history of mixed systolic and diastolic CHF, A Fib (on Coumadin), complete heart block (s/p pacemaker placement), DM II, HTN and other medical problems listed below who is being directly admitted for observation during bowel prep with plans for an EGD/ colonoscopy tomorrow. Iron deficiency anemia: Hbg 11.1 today EGD done showed normal esophagus. gastric antral vascular ectasia without bleeding GI recommended to continue clear liquid diet. IV PPI changed to PO daily for 4weeks Continue sucralfate 1 g PO QID for 1 week Colonoscopy done showed -Malignant looking mass in the ascending colon. - The examined portion of the ileum was normal. - Two 8 mm polyps in the cecum, and three 5 mm polyps in the sigmoid colon, CT chest/Abd/pelvis showed no metastasis. A sending colon mass measuring 4 x 3 cm. No evidence for local invasion. 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 Case discussed with Surgery, plant to take to OR today for Right hemicolectomy Keep NPO for now Cardiology consult for surgical clearance 07/21 S/P day 1 exploratory lap, right hemicolectomy with anastomosis No post op complication Hgb stable Keep NPO and continue NGT Continue incentive spirometry Continue IV morphine for pain On zosyn and protonix IV Continue daily wound care Surgery on board Monitor CBC Hypokalemia K stable Monitor BMP Mixed systolic, diastolic CHF: No signs of overload Last echo was Apr 08 with EF of 46% (improved from 30%) .Normal LV size with mild concentric LVH Mildly reduced LV systolic function with abnormal septal wall motion consistent with RV pacemaker activation along with mild global hypokinesis 07/21 Cardiology on board Denies any chest pain and SOB No absolute contraindications to proceed with surgery based on cardiac status. He has had no recent myocardial infarction, significant arrhythmia or valvular disease, heart failure. Surgical risk elevated given with pt cardiac history and commodities. Pt understood surgical risks such as CT, Continue Low dose of IV metoprolol since pt unable to take oral Stable ECHO DONE -- Conclusions -- * The left ventricle is normal in size. * There is mild concentric left ventricular hypertrophy. * Apical wall motion abnormality may reflect pacemaker activation. * Ejection Fraction = 50-55%. * The right ventricle is normal in size and function. * There is a pacemaker lead in the right ventricle. * Borderline left atrial enlargement. * Aortic valve sclerosis mild, without significant aortic valvular stenosis. * Doppler findings do not suggest pulmonary hypertension. 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 UD PRN PO 07/17/17 17:15 08/16/17 17:14 Glucose (Glucose Chew Tab) 4-8 Tablets 4 Tabl... UD PRN PO 07/17/17 17:15 08/16/17 17:14 Dextrose (Dextrose 50% 50ML Syringe) 25-50ML OF 50% DW IV FOR... UD PRN IV 07/17/17 17:15 08/16/17 17:14 07/18/17 08:36 25 ML Glucagon (Glucagon Inj) 1 mg UD PRN SQ 07/17/17 17:15 08/16/17 17:14 Amiodarone HCl (Cordarone Tab) 200 mg QPM PO 07/17/17 21:00 08/16/17 20:59 Future Hold 07/19/17 21:00 200 MG Zolpidem Tartrate (Ambien Tab) 5 mg HS PO 07/17/17 21:00 08/16/17 20:59 07/19/17 23:33 5 MG Miscellaneous Information (Order Awaiting Action) 1 ea QS N/A 07/18/17 00:00 08/17/17 00:00 Potassium Chloride/Dextrose/ Sod Cl 1,000 ml @ 100 mls/hr Q10H IV 07/17/17 18:30 08/16/17 18:29 07/21/17 16:11 100 MLS/HR Miscellaneous (Iv Fluids Completed) 1 ea PRN PRN N/A 07/17/17 19:15 07/17/18 19:14 Ioversol (Optiray 320) 115 ml UD PRN IV 07/18/17 21:00 07/22/17 20:59 Lorazepam (Ativan Tab) hold for sedation/ confusion HS PO 07/19/17 21:00 08/16/17 20:59 07/19/17 23:33 2 MG Sucralfate (Carafate Susp) 1 gm QID PO 07/19/17 10:00 08/18/17 09:59 07/21/17 16:23 1 GM Ciprofloxacin/ Dextrose 400 mg/ Prmx 200 ml @ 100 mls/hr Q12H IV 07/21/17 00:00 07/22/17 00:00 07/21/17 11:51 100 MLS/HR Metronidazole 500 mg/Prmx 100 ml @ 100 mls/hr Q8H IV 07/20/17 23:00 07/21/17 22:59 07/21/17 16:11 100 MLS/HR Morphine Sulfate (MoRPHine SULFATE INJ) 2 mg Q3HWA PRN IV 07/20/17 16:15 08/03/17 16:14 07/21/17 08:37 2 MG Hydromorphone HCl (Dilaudid Inj) 0.5 mg Q3HWA PRN IV 07/20/17 16:15 08/03/17 16:14 07/21/17 11:50 0.5 MG Enoxaparin Sodium (Lovenox Inj) 40 mg QAM SQ 07/21/17 09:00 08/20/17 08:59 07/21/17 08:38 40 MG Metoprolol Tartrate (Lopressor Iv) 2.5 mg Q6 IV. 07/21/17 00:00 08/20/17 00:00 07/21/17 11:51 2.5 MG Insulin Aspart (novoLOG ASPART) SLIDING SCALE If C... Q6 SC 07/21/17 00:30 08/20/17 00:29 07/21/17 06:13 2 UNITS Ferrous Sulfate (Feosol Elix) 325 mg BIDM NG 07/21/17 08:30 08/20/17 08:29 07/21/17 16:12 325 MG Ondansetron HCl (Zofran Inj) 4 mg Q6H PRN IV 07/21/17 09:30 08/20/17 09:29 Pantoprazole Sodium 40 mg/ Syringe 10 ml @ 5 mls/min DAILY IV 07/22/17 09:00 08/21/17 08:59
[2017-07-21] MEDS ORDERED: LORAZEPAM 2 MG/ML 1 ML VIAL IV PRN (18:15)
[2017-07-21] MEDS ORDERED: NURSING DECISION MEDICATION ORDER SCH (22:00)
[2017-07-21] MEDS ORDERED: CHLORASEPTIC 1.4% SOLN 180 ML BTL MT PRN (22:30)
[2017-07-22] VITALS (10 sets, daily range): BP systolic 151–184; BP diastolic 70–89; PULSE 57–88; TEMP 36.6–37; O2SAT 90–99
[2017-07-22] MEDS: LORAZEPAM INJ 0.5 MG in SYRINGE 0.25 ML IV PRN ×2 (00:42→23:54)
[2017-07-22] MEDS: HYDROmorphone INJ 0.5 MG/0.5 ML SYR IV PRN ×2 (00:50→06:12)
--- NOTE | 2017-07-22 05:32 | Surgery Progress Note ---
Surgery Progress Note Date of Service Jul 22, 2017. Subjective awake , alert, min flatus, no bm NG - minimal Objective Vital Signs: Date Time Temp Pulse Resp B/P (MAP) Pulse Ox O2 Delivery O2 Flow Rate FiO2 07/22/17 04:12 Nasal Cannula 2.0 Humidified Air 07/22/17 03:41 36.7 62 18 165/75 (105) 95 Nasal Cannula 2.0 07/22/17 00:05 Nasal Cannula 2.0 Humidified Air 07/21/17 23:31 60 07/21/17 23:04 37.1 62 18 169/79 (109) 97 Nasal Cannula 2.0 07/21/17 20:22 Nasal Cannula 2.0 07/21/17 19:25 37.4 59 20 159/82 (107) 96 Nasal Cannula 2.0 07/21/17 18:41 60 144/75 07/21/17 16:00 Nasal Cannula 2.0 07/21/17 15:20 36.8 59 20 144/75 (98) 96 Nasal Cannula 2.0 07/21/17 12:57 36.6 60 20 143/73 (96) 98 Room Air 07/21/17 12:00 Nasal Cannula 2.0 07/21/17 11:51 60 135/73 07/21/17 09:00 Nasal Cannula 2.0 07/21/17 07:56 36.6 60 20 135/73 (93) 97 Nasal Cannula 2.0 07/21/17 06:11 60 General Appearance: no apparent distress Respiratory/Chest: no respiratory distress Abdomen: soft, + pertinent finding (decreased bowel sounds) Incision(s): intact, drainage (has RENATE drain) Laboratory Results: Results Past 24 Hours Test 07/21/17 06:07 07/21/17 11:58 07/21/17 17:53 07/22/17 00:12 Range/Units Bedside Glucose 208 157 138 149 70-99 mg/dl Test 07/22/17 04:44 Range/Units Assessment & Plan 07/22/17- will d/c NG, cont NPO exc ice, try to mobilize- PT/OT, ambulate to regular floor when ok with medical team
[2017-07-22 05:52] LABS: HEMATOCRIT 37.8 % (42-52); HEMOGLOBIN 11.6 g/dL (14.0-18.0); MEAN CELL VOLUME 81.1 fL (80-100); MEAN CORPUSCULAR HEMOGLOBIN 24.9 pg (25-34); MEAN CORPUSCULAR HGB CONC 30.7 g/dl (32-36); MEAN PLATELET VOLUME 9.4 fL (7.4-10.4); PLATELET COUNT 256 K/uL (130-400); RED CELL DISTRIBUTION WIDTH CV 25.9 % (11.5-14.5); RED CELL DISTRIBUTION WIDTH SD 74.1 fL (36.4-46.3)
[2017-07-22 05:56] LABS: INR 1.8 (0.9-1.1)
[2017-07-22] MEDS: INSULIN ASPART 100 UNITS/ML 3 ML PEN SC SCH ×5 (06:00→23:55)
[2017-07-22] MEDS: METOPROLOL TARTRATE 1 MG/ML VIAL IV. SCH ×4 (06:06→23:54)
[2017-07-22] MEDS: D5W AND 1/2NSS + 20MEQ KCL 1,000 ML IV SCH ×2 (06:06→21:10)
[2017-07-22 06:19] LABS: CALCIUM 7.5 mg/dl (8.5-10.1); CREATININE 1.14 mg/dl (0.60-1.40); POTASSIUM 4.3 mmol/L (3.5-5.1)
[2017-07-22] MEDS: MoRPHine SULFATE 2 MG/ML CARP IV PRN (08:46)
[2017-07-22] MEDS: PANTOprazole INJ 40 MG in SYRINGE 0 ML IV SCH (08:47)
[2017-07-22] MEDS: SUCRALFATE 1 GM/10 ML UDC PO SCH ×4 (08:47→21:10)
[2017-07-22] MEDS: ENOXAPARIN 40 MG/0.4 ML SYR SQ SCH (08:48)
[2017-07-22] MEDS ORDERED: ENALAPRILAT IV 1.25 MG in DEXTROSE 5% 25ML 25 ML IV ONE (11:01)
--- NOTE | 2017-07-22 16:40 | Progress Note ---
Medicine Progress Note Date & Time of Visit: Jul 22, 2017 at 13:34. Subjective Pt was seen and examined Sitting in chair with no distress Pt said that he did not sleep last night Pt said that he got Ativan last night with no help He said that ambien is the only thing that works for him he said that the pain med help NG tube removed Denies any chest pain, palpitation, dizziness and SOB Objective Last 8 Hrs Date Time Temp Pulse Resp B/P (MAP) Pulse Ox O2 Delivery O2 Flow Rate FiO2 07/22/17 16:00 96 Nasal Cannula 2.0 07/22/17 15:37 36.6 60 16 151/70 (97) 90 Room Air 07/22/17 12:38 88 98 07/22/17 12:07 69 170/90 07/22/17 12:00 95 Nasal Cannula 2.0 07/22/17 11:04 36.8 65 20 165/77 (106) 99 Nasal Cannula 2.0 Physical Exam: General- No acute distress Head- atraumatic Eyes- PERRL, EOMI ENT- oropharynx clear Neck- supple, no JVD Lungs- clear to auscultation Heart- regular rhythm Abdomen- abdominal binder, +tenderness. No Bowel sound Extremities- no calf tenderness; Neuro- alert, oriented x 3; PERRL, EOMI; no facial palsy; Skin- warm & dry Laboratory Results: Last 24 Hours Test 07/21/17 17:53 07/22/17 00:12 07/22/17 05:27 07/22/17 06:08 Bedside Glucose 138 mg/dl 149 mg/dl 146 mg/dl White Blood Count 12.20 K/uL Red Blood Count 4.66 M/uL Hemoglobin 11.6 g/dL Hematocrit 37.8 % Mean Corpuscular Volume 81.1 fL Mean Corpuscular Hemoglobin 24.9 pg Mean Corpuscular Hemoglobin Concent 30.7 g/dl RDW Standard Deviation 74.1 fL RDW Coefficient of Variation 25.9 % Platelet Count 256 K/uL Mean Platelet Volume 9.4 fL Prothrombin Time 18.3 SECONDS Prothromb Time International Ratio 1.8 Sodium Level 134 mmol/L Potassium Level 4.3 mmol/L Chloride Level 101 mmol/L Carbon Dioxide Level 26 mmol/L Anion Gap 7.0 mmol/L Blood Urea Nitrogen 12 mg/dl Creatinine 1.14 mg/dl Est Creatinine Clear Calc Drug Dose 56.4 ml/min Estimated GFR () 69.0 Estimated GFR (Non- 59.6 BUN/Creatinine Ratio 10.2 Random Glucose 147 mg/dl Calcium Level 7.5 mg/dl Test 07/22/17 12:22 Bedside Glucose 142 mg/dl Assessment & Plan This is an 82-year-old male with a past medical history of mixed systolic and diastolic CHF, A Fib (on Coumadin), complete heart block (s/p pacemaker placement), DM II, HTN and other medical problems listed below who is being directly admitted for observation during bowel prep with plans for an EGD/ colonoscopy tomorrow. Iron deficiency anemia: Hbg 11.1 today EGD done showed normal esophagus. gastric antral vascular ectasia without bleeding GI recommended to continue clear liquid diet. IV PPI changed to PO daily for 4weeks Continue sucralfate 1 g PO QID for 1 week Colonoscopy done showed -Malignant looking mass in the ascending colon. - The examined portion of the ileum was normal. - Two 8 mm polyps in the cecum, and three 5 mm polyps in the sigmoid colon, CT chest/Abd/pelvis showed no metastasis. A sending colon mass measuring 4 x 3 cm. No evidence for local invasion. 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 Case discussed with Surgery, plant to take to OR today for Right hemicolectomy Keep NPO for now Cardiology consult for surgical clearance 07/22 S/P day 2 exploratory lap, right hemicolectomy with anastomosis No post op complication Hgb stable Keep NPO NG tube removed Continue incentive spirometry Continue IV morphine for pain On zosyn and protonix IV Continue daily wound care Surgery on board Monitor CBC Hypokalemia K stable Monitor BMP Mixed systolic, diastolic CHF: No signs of overload Last echo was Apr 08 with EF of 46% (improved from 30%) .Normal LV size with mild concentric LVH Mildly reduced LV systolic function with abnormal septal wall motion consistent with RV pacemaker activation along with mild global hypokinesis 07/22 Cardiology on board Denies any chest pain and SOB No absolute contraindications to proceed with surgery based on cardiac status. He has had no recent myocardial infarction, significant arrhythmia or valvular disease, heart failure. Surgical risk elevated given with pt cardiac history and commodities. Pt understood surgical risks such as [place], Continue Low dose of IV metoprolol since pt unable to take oral OK from cardiology to transfer to medical ECHO DONE -- Conclusions -- * The left ventricle is normal in size. * There is mild concentric left ventricular hypertrophy. * Apical wall motion abnormality may reflect pacemaker activation. * Ejection Fraction = 50-55%. * The right ventricle is normal in size and function. * There is a pacemaker lead in the right ventricle. * Borderline left atrial enlargement. * Aortic valve sclerosis mild, without significant aortic valvular stenosis. * Doppler findings do not suggest pulmonary hypertension. A Fib: Coumadin held for procedure Continue amiodarone, metoprolol succinate INR increased to 1.8 Continue holding coumadin Rate control Amiodarone and metoprolol oral on hold since pt is NPO Continue low dose of IV metoprolol Continue monitor HR DM II: Hgb a1c of 5.5 in June 2017 Hold home agents SSI while in-patient BSG AC HS HTN: BP elevated Cont beta james Enalapril IV adding Continue monitor BP Insomnia: Oral ativan, ambien on hold since pt unable to take oral On IV Ativan PRN for sleep DVT Ppx: SCDs./Lovenox Code status: FULL code Disposition Will transfer to medical Consultants: Surgery Cardio Current Inpatient Medications: Current Inpatient Medications Medications (Trade) Dose Ordered Sig/Cholo Route Start Time Stop Time Status Last Admin Dose Admin Acetaminophen (Tylenol Tab) 650 mg Q4H PRN PO 07/17/17 17:15 08/16/17 17:14 Future Hold Glucose (Glucose 40% Gel) 15-30 GRAMS 15 GRAMS... UD PRN PO 07/17/17 17:15 08/16/17 17:14 Glucose (Glucose Chew Tab) 4-8 Tablets 4 Tabl... UD PRN PO 07/17/17 17:15 08/16/17 17:14 Dextrose (Dextrose 50% 50ML Syringe) 25-50ML OF 50% DW IV FOR... UD PRN IV 07/17/17 17:15 08/16/17 17:14 07/18/17 08:36 25 ML Glucagon (Glucagon Inj) 1 mg UD PRN SQ 07/17/17 17:15 08/16/17 17:14 Amiodarone HCl (Cordarone Tab) 200 mg QPM PO 07/17/17 21:00 08/16/17 20:59 Future Hold 07/19/17 21:00 200 MG Zolpidem Tartrate (Ambien Tab) 5 mg HS PO 07/17/17 21:00 08/16/17 20:59 Future Hold 07/19/17 23:33 5 MG Miscellaneous Information (Order Awaiting Action) 1 ea QS N/A 07/18/17 00:00 08/17/17 00:00 Potassium Chloride/Dextrose/ Sod Cl 1,000 ml @ 75 mls/hr [id number] IV 07/17/17 18:30 08/16/17 18:29 07/22/17 06:06 75 MLS/HR Miscellaneous (Iv Fluids Completed) 1 ea PRN PRN N/A 07/17/17 19:15 07/17/18 19:14 Ioversol (Optiray 320) 115 ml UD PRN IV 07/18/17 21:00 07/22/17 20:59 Lorazepam (Ativan Tab) hold for sedation/ confusion HS PO 07/19/17 21:00 08/16/17 20:59 Future Hold 07/19/17 23:33 2 MG Sucralfate (Carafate Susp) 1 gm QID PO 07/19/17 10:00 08/18/17 09:59 07/22/17 13:45 1 GM Morphine Sulfate (MoRPHine SULFATE INJ) 2 mg Q3HWA PRN IV 07/20/17 16:15 08/03/17 16:14 07/22/17 08:46 2 MG Hydromorphone HCl (Dilaudid Inj) 0.5 mg Q3HWA PRN IV 07/20/17 16:15 08/03/17 16:14 07/22/17 06:12 0.5 MG Enoxaparin Sodium (Lovenox Inj) 40 mg QAM SQ 07/21/17 09:00 08/20/17 08:59 07/22/17 08:48 40 MG Metoprolol Tartrate (Lopressor Iv) 2.5 mg Q6 IV. 07/21/17 00:00 08/20/17 00:00 07/22/17 12:07 2.5 MG Insulin Aspart (novoLOG ASPART) SLIDING SCALE If C... Q6 SC 07/21/17 00:30 08/20/17 00:29 07/21/17 06:13 2 UNITS Ferrous Sulfate (Feosol Elix) 325 mg BIDM NG 07/21/17 08:30 08/20/17 08:29 Future Hold 07/21/17 16:12 325 MG Ondansetron HCl (Zofran Inj) 4 mg Q6H PRN IV 07/21/17 09:30 08/20/17 09:29 Pantoprazole Sodium 40 mg/ Syringe 10 ml @ 5 mls/min DAILY IV 07/22/17 09:00 08/21/17 08:59 07/22/17 08:47 5 MLS/MIN Lorazepam (Ativan Inj) 0.5 mg HS PRN IV 07/21/17 18:15 08/20/17 18:14 07/21/17 23:30 0.5 MG Lorazepam 0.5 mg/ Syringe 0.5 ml @ 0.5 mls/min HS PRN IV 07/21/17 18:15 08/20/17 18:14 07/22/17 00:42 0.5 MLS/MIN Phenol (Chloraseptic 1.4% [place]) 1 sprays Q4H PRN MT 07/21/17 22:30 08/20/17 22:29 Enalaprilat 1.25 mg/Dextrose 26 ml @ 100 mls/hr Q24H IV 07/23/17 09:00 08/22/17 08:59
[2017-07-23] VITALS (8 sets, daily range): BP systolic 148–188; BP diastolic 64–78; PULSE 59–62; TEMP 36.6–36.8; O2SAT 92–97
[2017-07-23] MEDS: INSULIN ASPART 100 UNITS/ML 3 ML PEN SC SCH ×5 (05:48→21:00)
[2017-07-23] MEDS: METOPROLOL TARTRATE 1 MG/ML VIAL IV. SCH ×3 (05:50→17:58)
--- NOTE | 2017-07-23 06:07 | Surgery Progress Note ---
Surgery Progress Note Date of Service Jul 23, 2017. Subjective tolerating NG removal terry in place Objective Vital Signs: Date Time Temp Pulse Resp B/P (MAP) Pulse Ox O2 Delivery O2 Flow Rate FiO2 07/23/17 05:50 64 166/73 07/23/17 01:35 60 153/70 (97) 07/23/17 00:00 Room Air 07/22/17 23:54 57 184/73 07/22/17 23:07 37.0 57 20 184/73 (110) 94 Room Air 07/22/17 18:20 Room Air 07/22/17 18:10 36.9 61 18 176/75 (108) 94 Room Air 07/22/17 17:11 65 158/65 07/22/17 16:00 96 Nasal Cannula 2.0 07/22/17 15:37 36.6 60 16 151/70 (97) 90 Room Air 07/22/17 12:38 88 98 07/22/17 12:07 69 170/90 07/22/17 12:00 95 Nasal Cannula 2.0 07/22/17 11:04 36.8 65 20 165/77 (106) 99 Nasal Cannula 2.0 07/22/17 08:00 96 Nasal Cannula 2.0 07/22/17 07:47 36.8 65 20 167/74 (105) 96 Nasal Cannula 2.0 07/22/17 06:06 60 General Appearance: no apparent distress Respiratory/Chest: no respiratory distress Abdomen: + pertinent finding (abd is flat, soft) Incision(s): intact Laboratory Results: Results Past 24 Hours Test 07/22/17 06:08 07/22/17 12:22 07/22/17 18:16 07/22/17 23:42 Range/Units Bedside Glucose 146 142 123 155 70-99 mg/dl Test 07/23/17 05:47 07/23/17 06:00 Range/Units Bedside Glucose 125 70-99 mg/dl Assessment & Plan 07/23/17- will try clear liquids, d/c terry check labs- seems to be stable and progressing 07/22/17- will d/c NG, cont NPO exc ice, try to mobilize- PT/OT, ambulate to regular floor when ok with medical team 07/22/17- will d/c NG, cont NPO exc ice, try to mobilize- PT/OT, ambulate to regular floor when ok with medical team
[2017-07-23 06:59] LABS: HEMATOCRIT 32.1 % (42-52); HEMOGLOBIN 10.2 g/dL (14.0-18.0); MEAN CELL VOLUME 80.9 fL (80-100); MEAN CORPUSCULAR HEMOGLOBIN 25.7 pg (25-34); MEAN CORPUSCULAR HGB CONC 31.8 g/dl (32-36); MEAN PLATELET VOLUME 9.2 fL (7.4-10.4); PLATELET COUNT 222 K/uL (130-400); RED CELL DISTRIBUTION WIDTH CV 26.1 % (11.5-14.5); RED CELL DISTRIBUTION WIDTH SD 73.7 fL (36.4-46.3); WHITE BLOOD COUNT 8.93 K/uL (4.8-10.8)
[2017-07-23] MEDS ORDERED: NURSING VERBAL MED ORDER ONE ×3 (07:00→08:15)
[2017-07-23 07:32] LABS: CREATININE 0.88 mg/dl (0.60-1.40)
[2017-07-23] MEDS ORDERED: FUROSEMIDE INJ 20 MG in SYRINGE 0 ML IV ONE (08:15)
[2017-07-23] MEDS: D5W AND 1/2NSS + 20MEQ KCL 1,000 ML IV SCH (08:41)
[2017-07-23] MEDS: SUCRALFATE 1 GM/10 ML UDC PO SCH ×4 (08:42→21:37)
[2017-07-23] MEDS: PANTOprazole INJ 40 MG in SYRINGE 0 ML IV SCH (08:42)
[2017-07-23] MEDS: ENOXAPARIN 40 MG/0.4 ML SYR SQ SCH (08:45)
[2017-07-23] MEDS: ENALAPRILAT IV 1.25 MG in DEXTROSE 5% 25ML 25 ML IV SCH (10:31)
--- NOTE | 2017-07-23 11:41 | Cardiology Follow-Up ---
Subjective Subjective Date of Service: Jul 23, 2017. Pt evaluation today including: conversation w/ patient, physical exam, chart review, lab review, review of studies, review of inpatient medication list Additional Details: Pt seen and examined, states that he feels "horrible" today. States having significant abdominal pain and very fatigued, not sleeping well. Diet advanced to clears today and patient states that he is tolerating it well. Denies cp, sob , palpitations. Problem List Medical Problems: (1) Lightheadedness Status: Acute (2) Near syncope Status: Acute Review of Systems Constitutional: No fever, No chills Respiratory: No cough, No shortness of breath Cardiac: No chest pain Objective Vital Signs Last Vital Signs Documentation Date Time Temp Pulse Resp B/P (MAP) Pulse Ox O2 Delivery O2 Flow Rate FiO2 07/23/17 09:45 173/75 (107) 07/23/17 07:28 36.7 61 16 92 Room Air 07/22/17 16:00 2.0 Assessment and Plan 1. PAF has remained in sinus rhythm been receiving IV metoprolol while npo po to be restarted today along with po amiodarone at previous dose 2. Hypertension uncontrolled pt refused IV vasotec to restart po meds ok to add amlodipine or hydralazine if necessary for further bp control
[2017-07-23] MEDS: HYDROmorphone INJ 0.5 MG/0.5 ML SYR IV PRN (15:34)
--- NOTE | 2017-07-23 15:38 | Progress Note ---
Medicine Progress Note Date & Time of Visit: Jul 23, 2017 at 15:27. Subjective Pt was seen and examined Lying in bed with no distress Pt said that he had a bad night last night he said that he only had 3 hrs sleep because the room was too noisy he said that he is having so much pain Denies any chest pain, palpitation and SOB Objective Last 8 Hrs Date Time Temp Pulse Resp B/P (MAP) Pulse Ox O2 Delivery O2 Flow Rate FiO2 07/23/17 15:05 36.8 61 16 148/73 (98) 97 Room Air 07/23/17 12:35 59 07/23/17 12:34 59 157/70 (99) 07/23/17 09:45 173/75 (107) 07/23/17 09:45 180/64 (102) 07/23/17 07:28 36.7 61 16 173/76 (108) 92 Room Air Physical Exam: General- No acute distress Head- atraumatic Eyes- PERRL, EOMI ENT- oropharynx clear Neck- supple, no JVD Lungs- clear to auscultation Heart- regular rhythm Abdomen- abdominal binder, +tenderness. No Bowel sound Extremities- no calf tenderness; Neuro- alert, oriented x 3; PERRL, EOMI; no facial palsy; Skin- warm & dry Laboratory Results: Last 24 Hours Test 07/22/17 18:16 07/22/17 23:42 07/23/17 05:47 07/23/17 06:00 Bedside Glucose 123 mg/dl 155 mg/dl 125 mg/dl White Blood Count 8.93 K/uL Red Blood Count 3.97 M/uL Hemoglobin 10.2 g/dL Hematocrit 32.1 % Mean Corpuscular Volume 80.9 fL Mean Corpuscular Hemoglobin 25.7 pg Mean Corpuscular Hemoglobin Concent 31.8 g/dl RDW Standard Deviation 73.7 fL RDW Coefficient of Variation 26.1 % Platelet Count 222 K/uL Mean Platelet Volume 9.2 fL Creatinine 0.88 mg/dl Est Creatinine Clear Calc Drug Dose 79.1 ml/min Estimated GFR () 92.7 Estimated GFR (Non- 80.0 Test 07/23/17 06:01 07/23/17 12:28 Bedside Glucose 119 mg/dl 160 mg/dl Assessment & Plan This is an 82-year-old male with a past medical history of mixed systolic and diastolic CHF, A Fib (on Coumadin), complete heart block (s/p pacemaker placement), DM II, HTN and other medical problems listed below who is being directly admitted for observation during bowel prep with plans for an EGD/ colonoscopy tomorrow. Iron deficiency anemia: Hbg 11.1 today EGD done showed normal esophagus. gastric antral vascular ectasia without bleeding GI recommended to continue clear liquid diet. IV PPI changed to PO daily for 4weeks Continue sucralfate 1 g PO QID for 1 week Colonoscopy done showed -Malignant looking mass in the ascending colon. - The examined portion of the ileum was normal. - Two 8 mm polyps in the cecum, and three 5 mm polyps in the sigmoid colon, CT chest/Abd/pelvis showed no metastasis. A sending colon mass measuring 4 x 3 cm. No evidence for local invasion. 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 Case discussed with Surgery, plant to take to OR today for Right hemicolectomy Keep NPO for now Cardiology consult for surgical clearance 07/23 S/P day 3 exploratory lap, right hemicolectomy with anastomosis No post op complication Hgb stable NG tube removed yesterday Starting on clear liquid diet Continue incentive spirometry Continue IV morphine for pain On zosyn and protonix IV Continue daily wound care Surgery on board Monitor CBC Berman removed Continue PT/OT Hypokalemia K stable Monitor BMP Mixed systolic, diastolic CHF: No signs of overload Last echo was Apr 08 with EF of 46% (improved from 30%) .Normal LV size with mild concentric LVH Mildly reduced LV systolic function with abnormal septal wall motion consistent with RV pacemaker activation along with mild global hypokinesis 07/22 Cardiology on board Denies any chest pain and SOB No absolute contraindications to proceed with surgery based on cardiac status. He has had no recent myocardial infarction, significant arrhythmia or valvular disease, heart failure. Surgical risk elevated given with pt cardiac history and commodities. Pt understood surgical risks such as MD, Will change IV metoprolol to Oral OK from cardiology to transfer to medical ECHO DONE -- Conclusions -- * The left ventricle is normal in size. * There is mild concentric left ventricular hypertrophy. * Apical wall motion abnormality may reflect pacemaker activation. * Ejection Fraction = 50-55%. * The right ventricle is normal in size and function. * There is a pacemaker lead in the right ventricle. * Borderline left atrial enlargement. * Aortic valve sclerosis mild, without significant aortic valvular stenosis. * Doppler findings do not suggest pulmonary hypertension. A Fib: Coumadin held for procedure Continue amiodarone, metoprolol succinate INR increased to 1.8 Continue holding coumadin Rate control Amiodarone and metoprolol oral on hold since pt is NPO Continue low dose of IV metoprolol Continue monitor HR 07/23 Will changed IV metoprolol to oral Resume amiodarone Will resume coumadin possible tomorrow DM II: Hgb a1c of 5.5 in June 2017 Hold home agents SSI while in-patient BSG AC HS HTN: BP elevated Cont beta james Refused to take vasotec Consider to add hydralazine prn Continue monitor BP Insomnia: Will resume ambien and ativan prn for sleep DVT Ppx: SCDs./Lovenox Code status: FULL code Disposition Will discharge once medically stable Consultants: Surgery Cardio Current Inpatient Medications: Current Inpatient Medications Medications (Trade) Dose Ordered Sig/Cholo Route Start Time Stop Time Status Last Admin Dose Admin Acetaminophen (Tylenol Tab) 650 mg Q4H PRN PO 07/17/17 17:15 08/16/17 17:14 Future Hold Glucose (Glucose 40% Gel) 15-30 GRAMS 15 GRAMS... UD PRN PO 07/17/17 17:15 08/16/17 17:14 Glucose (Glucose Chew Tab) 4-8 Tablets 4 Tabl... UD PRN PO 07/17/17 17:15 08/16/17 17:14 Dextrose (Dextrose 50% 50ML Syringe) 25-50ML OF 50% DW IV FOR... UD PRN IV 07/17/17 17:15 08/16/17 17:14 07/18/17 08:36 25 ML Glucagon (Glucagon Inj) 1 mg UD PRN SQ 07/17/17 17:15 08/16/17 17:14 Amiodarone HCl (Cordarone Tab) 200 mg QPM PO 07/17/17 21:00 08/16/17 20:59 Future hold 07/19/17 21:00 200 MG Zolpidem Tartrate (Ambien Tab) 5 mg HS PO 07/17/17 21:00 08/16/17 20:59 Future Hold 07/19/17 23:33 5 MG Miscellaneous Information (Order Awaiting Action) 1 ea QS N/A 07/18/17 00:00 08/17/17 00:00 Potassium Chloride/Dextrose/ Sod Cl 1,000 ml @ 50 mls/hr Q20H IV 07/17/17 18:30 08/16/17 18:29 07/23/17 08:41 50 MLS/HR Miscellaneous (Iv Fluids Completed) 1 ea PRN PRN N/A 07/17/17 19:15 07/17/18 19:14 Lorazepam (Ativan Tab) hold for sedation/ confusion HS PO 07/19/17 21:00 08/16/17 20:59 Future Hold 07/19/17 23:33 2 MG Sucralfate (Carafate Susp) 1 gm QID PO 07/19/17 10:00 08/18/17 09:59 07/23/17 12:36 1 GM Morphine Sulfate (MoRPHine SULFATE INJ) 2 mg Q3HWA PRN IV 07/20/17 16:15 08/03/17 16:14 07/22/17 08:46 2 MG Hydromorphone HCl (Dilaudid Inj) 0.5 mg Q3HWA PRN IV 07/20/17 16:15 08/03/17 16:14 07/22/17 06:12 0.5 MG Enoxaparin Sodium (Lovenox Inj) 40 mg QAM SQ 07/21/17 09:00 08/20/17 08:59 07/23/17 08:45 40 MG Metoprolol Tartrate (Lopressor Iv) 2.5 mg Q6 IV. 07/21/17 00:00 08/20/17 00:00 07/23/17 05:50 2.5 MG Ferrous Sulfate (Feosol Elix) 325 mg BIDM NG 07/21/17 08:30 08/20/17 08:29 Future Hold 07/21/17 16:12 325 MG Ondansetron HCl (Zofran Inj) 4 mg Q6H PRN IV 07/21/17 09:30 08/20/17 09:29 Pantoprazole Sodium 40 mg/ Syringe 10 ml @ 5 mls/min DAILY IV 07/22/17 09:00 08/21/17 08:59 07/23/17 08:42 5 MLS/MIN Lorazepam (Ativan Inj) 0.5 mg HS PRN IV 07/21/17 18:15 08/20/17 18:14 07/21/17 23:30 0.5 MG Lorazepam 0.5 mg/ Syringe 0.5 ml @ 0.5 mls/min HS PRN IV 07/21/17 18:15 08/20/17 18:14 07/22/17 23:54 0.5 MLS/MIN Phenol (Chloraseptic 1.4% [place]) 1 sprays Q4H PRN MT 07/21/17 22:30 08/20/17 22:29 Enalaprilat 1.25 mg/Dextrose 26 ml @ 100 mls/hr Q24H IV 07/23/17 09:00 08/22/17 08:59 Insulin Aspart (novoLOG ASPART) SLIDING SCALE If C... ACHS SC 07/23/17 08:00 08/22/17 07:59 07/23/17 14:06 5 UNITS Metoprolol Succinate (Toprol Xl Tab) 25 mg QPM PO 07/23/17 21:00 08/22/17 20:59
[2017-07-23] MEDS: METOPROLOL SUCC 25MG EXT REL TAB PO SCH (21:36)
[2017-07-23] MEDS: AMIODARONE 200 MG TAB PO SCH (21:36)
[2017-07-23] MEDS: LORAZEPAM 1 MG TAB PO SCH ×2 (22:46→22:52)
[2017-07-24] VITALS (9 sets, daily range): BP systolic 131–183; BP diastolic 56–89; PULSE 58–73; TEMP 36.6–36.9; O2SAT 95–100
[2017-07-24] MEDS: LORAZEPAM 1 MG TAB PO SCH (00:09)
[2017-07-24] MEDS: ZOLPIDEM TARTRATE 5 MG TAB PO SCH (00:10)
[2017-07-24 06:58] LABS: INR 1.4 (0.9-1.1)
[2017-07-24 07:04] LABS: HEMATOCRIT 33.4 % (42-52); HEMOGLOBIN 10.5 g/dL (14.0-18.0); MEAN CELL VOLUME 80.9 fL (80-100); MEAN CORPUSCULAR HEMOGLOBIN 25.4 pg (25-34); MEAN CORPUSCULAR HGB CONC 31.4 g/dl (32-36); MEAN PLATELET VOLUME 9.2 fL (7.4-10.4); PLATELET COUNT 229 K/uL (130-400); RED CELL DISTRIBUTION WIDTH CV 25.8 % (11.5-14.5); RED CELL DISTRIBUTION WIDTH SD 73.5 fL (36.4-46.3); WHITE BLOOD COUNT 7.66 K/uL (4.8-10.8)
[2017-07-24 07:34] LABS: CALCIUM 7.7 mg/dl (8.5-10.1); CREATININE 0.88 mg/dl (0.60-1.40); PHOSPHORUS 1.6 mg/dl (2.5-4.9); POTASSIUM 3.4 mmol/L (3.5-5.1)
[2017-07-24] MEDS: ENALAPRILAT IV 1.25 MG in DEXTROSE 5% 25ML 25 ML IV SCH ×2 (08:59→12:43)
[2017-07-24] MEDS: HydrALAZINE HCL 20 MG/ML VIAL IV. PRN (08:59)
[2017-07-24] MEDS: POTASSIUM CHLORIDE 20 MEQ TABCR PO ONE ×2 (09:21→09:28)
[2017-07-24] MEDS: ENOXAPARIN 40 MG/0.4 ML SYR SQ SCH (09:21)
[2017-07-24] MEDS: MAGNESIUM SULFATE 1GM / D5W 1 GM in PREMIXED IN D5W 100 ML IV SCH ×2 (09:21→09:33)
[2017-07-24] MEDS: INSULIN ASPART 100 UNITS/ML 3 ML PEN SC SCH ×4 (09:24→22:08)
[2017-07-24] MEDS: PANTOprazole SOD 40 MG TAB PO SCH (09:30)
[2017-07-24] MEDS: SUCRALFATE 1 GM/10 ML UDC PO SCH ×5 (09:31→22:13)
[2017-07-24] MEDS ORDERED: MAGNESIUM OXIDE 400 MG TAB PO ONE (13:14)
--- NOTE | 2017-07-24 13:14 | Progress Note ---
Medicine Progress Note Date & Time of Visit: Jul 24, 2017 at 13:04. Subjective Pt was seen and examined Lying in bed with no distress Pt said that he think that he slept too much last night He said that pain seems to get better He refused to take the Vasotec and hydralazine for his BP When I went to explain to him the mechanism of Vasotec, he agreed to take it He has not had a BM yet Denies any chest pain, palpitation, dizziness and SOB Objective Last 8 Hrs Date Time Temp Pulse Resp B/P (MAP) Pulse Ox O2 Delivery O2 Flow Rate FiO2 07/24/17 09:31 96 Room Air 07/24/17 08:15 Room Air 07/24/17 07:44 36.9 58 18 183/83 (116) 96 Room Air Physical Exam: General- No acute distress Head- atraumatic Eyes- PERRL, EOMI ENT- oropharynx clear Neck- supple, no JVD Lungs- clear to auscultation Heart- regular rhythm Abdomen- abdominal binder, +tenderness. Extremities- no calf tenderness; Neuro- alert, oriented x 3; PERRL, EOMI; no facial palsy; Skin- warm & dry Laboratory Results: Last 24 Hours Test 07/23/17 17:47 07/23/17 20:32 07/24/17 06:04 07/24/17 07:56 Bedside Glucose 131 mg/dl 124 mg/dl 119 mg/dl White Blood Count 7.66 K/uL Red Blood Count 4.13 M/uL Hemoglobin 10.5 g/dL Hematocrit 33.4 % Mean Corpuscular Volume 80.9 fL Mean Corpuscular Hemoglobin 25.4 pg Mean Corpuscular Hemoglobin Concent 31.4 g/dl RDW Standard Deviation 73.5 fL RDW Coefficient of Variation 25.8 % Platelet Count 229 K/uL Mean Platelet Volume 9.2 fL Prothrombin Time 14.5 SECONDS Prothromb Time International Ratio 1.4 Sodium Level 136 mmol/L Potassium Level 3.4 mmol/L Chloride Level 101 mmol/L Carbon Dioxide Level 26 mmol/L Anion Gap 9.0 mmol/L Blood Urea Nitrogen 9 mg/dl Creatinine 0.88 mg/dl Est Creatinine Clear Calc Drug Dose 79.1 ml/min Estimated GFR () 92.7 Estimated GFR (Non- 80.0 BUN/Creatinine Ratio 9.7 Random Glucose 97 mg/dl Calcium Level 7.7 mg/dl Phosphorus Level 1.6 mg/dl Magnesium Level 1.8 mg/dl Test 07/24/17 12:02 Bedside Glucose 109 mg/dl Assessment & Plan This is an 82-year-old male with a past medical history of mixed systolic and diastolic CHF, A Fib (on Coumadin), complete heart block (s/p pacemaker placement), DM II, HTN and other medical problems listed below who is being directly admitted for observation during bowel prep with plans for an EGD/ colonoscopy tomorrow. Iron deficiency anemia: Hbg 11.1 today EGD done showed normal esophagus. gastric antral vascular ectasia without bleeding GI recommended to continue clear liquid diet. IV PPI changed to PO daily for 4weeks Continue sucralfate 1 g PO QID for 1 week Colonoscopy done showed -Malignant looking mass in the ascending colon. - The examined portion of the ileum was normal. - Two 8 mm polyps in the cecum, and three 5 mm polyps in the sigmoid colon, CT chest/Abd/pelvis showed no metastasis. A sending colon mass measuring 4 x 3 cm. No evidence for local invasion. 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 Case discussed with Surgery, plant to take to OR today for Right hemicolectomy Keep NPO for now Cardiology consult for surgical clearance 07/24 S/P day 4 exploratory lap, right hemicolectomy with anastomosis No post op complication Hgb stable NG tube removed On clear liquid diet Continue incentive spirometry Continue IV morphine for pain On zosyn and protonix IV Continue daily wound care Surgery on board Monitor CBC Berman removed Continue PT/OT Electrolytes imbalance Mg 1.7 and K3.2 Will start on oral mg supplement K replaced refused to take IV mg Mixed systolic, diastolic CHF: No signs of overload Last echo was Apr 08 with EF of 46% (improved from 30%) .Normal LV size with mild concentric LVH Mildly reduced LV systolic function with abnormal septal wall motion consistent with RV pacemaker activation along with mild global hypokinesis 07/22 Cardiology on board Denies any chest pain and SOB No absolute contraindications to proceed with surgery based on cardiac status. He has had no recent myocardial infarction, significant arrhythmia or valvular disease, heart failure. Surgical risk elevated given with pt cardiac history and commodities. Pt understood surgical risks such as [place], Will change IV metoprolol to Oral OK from cardiology to transfer to medical ECHO DONE -- Conclusions -- * The left ventricle is normal in size. * There is mild concentric left ventricular hypertrophy. * Apical wall motion abnormality may reflect pacemaker activation. * Ejection Fraction = 50-55%. * The right ventricle is normal in size and function. * There is a pacemaker lead in the right ventricle. * Borderline left atrial enlargement. * Aortic valve sclerosis mild, without significant aortic valvular stenosis. * Doppler findings do not suggest pulmonary hypertension. A Fib: Coumadin held for procedure Continue amiodarone, metoprolol succinate INR increased to 1.8 Continue holding coumadin Rate control Amiodarone and metoprolol oral on hold since pt is NPO Continue low dose of IV metoprolol Continue monitor HR 4/2 rate control Continue metoprolol PO 25mg and amiodarone INR 1.4 Resume coumadin DM II: Hgb a1c of 5.5 in June 2017 Hold home agents SSI while in-patient BSG AC HS HTN: BP elevated Cont beta james Agreed to take IV vasotec Refused hydralazine prn Continue monitor BP Insomnia: Overslept last night Continue ambien and decrease ativan to 1mg prn for sleep DVT Ppx: SCDs./Lovenox Code status: FULL code Disposition Will discharge once medically stable Consultants: Surgery Cardio Current Inpatient Medications: Current Inpatient Medications Medications (Trade) Dose Ordered Sig/Cholo Route Start Time Stop Time Status Last Admin Dose Admin Acetaminophen (Tylenol Tab) 650 mg Q4H PRN PO 07/17/17 17:15 08/16/17 17:14 Future Hold Glucose (Glucose 40% Gel) 15-30 GRAMS 15 GRAMS... UD PRN PO 07/17/17 17:15 08/16/17 17:14 Glucose (Glucose Chew Tab) 4-8 Tablets 4 Tabl... UD PRN PO 07/17/17 17:15 08/16/17 17:14 Dextrose (Dextrose 50% 50ML Syringe) 25-50ML OF 50% DW IV FOR... UD PRN IV 07/17/17 17:15 08/16/17 17:14 07/18/17 08:36 25 ML Glucagon (Glucagon Inj) 1 mg UD PRN SQ 07/17/17 17:15 08/16/17 17:14 Amiodarone HCl (Cordarone Tab) 200 mg QPM PO 07/17/17 21:00 08/16/17 20:59 Future hold 07/23/17 21:36 200 MG Zolpidem Tartrate (Ambien Tab) 5 mg HS PO 07/17/17 21:00 08/16/17 20:59 Future hold 07/24/17 00:10 5 MG Miscellaneous Information (Order Awaiting Action) 1 ea QS N/A 07/18/17 00:00 08/17/17 00:00 Miscellaneous (Iv Fluids Completed) 1 ea PRN PRN N/A 07/17/17 19:15 07/17/18 19:14 Lorazepam (Ativan Tab) hold for sedation/ confusion HS PO 07/19/17 21:00 08/16/17 20:59 Future hold 07/24/17 00:09 1 MG Morphine Sulfate (MoRPHine SULFATE INJ) 2 mg Q3HWA PRN IV 07/20/17 16:15 08/03/17 16:14 07/22/17 08:46 2 MG Hydromorphone HCl (Dilaudid Inj) 0.5 mg Q3HWA PRN IV 07/20/17 16:15 08/03/17 16:14 07/23/17 15:34 0.5 MG Enoxaparin Sodium (Lovenox Inj) 40 mg QAM SQ 07/21/17 09:00 08/20/17 08:59 07/24/17 09:21 40 MG Ferrous Sulfate (Feosol Elix) 325 mg BIDM NG 07/21/17 08:30 08/20/17 08:29 Future Hold 07/21/17 16:12 325 MG Ondansetron HCl (Zofran Inj) 4 mg Q6H PRN IV 07/21/17 09:30 08/20/17 09:29 Phenol (Chloraseptic 1.4% [place]) 1 sprays Q4H PRN MT 07/21/17 22:30 08/20/17 22:29 Enalaprilat 1.25 mg/Dextrose 26 ml @ 100 mls/hr Q24H IV 07/23/17 09:00 08/22/17 08:59 07/24/17 12:43 100 MLS/HR Metoprolol Succinate (Toprol Xl Tab) 25 mg QPM PO 07/23/17 21:00 08/22/17 20:59 07/23/17 21:36 25 MG Insulin Aspart (novoLOG ASPART) SLIDING SCALE If C... ACHS SC 07/24/17 08:00 08/22/17 07:59 Pantoprazole Sodium (Protonix Tab) 40 mg QAM PO 07/24/17 09:00 07/27/17 09:01 07/24/17 09:30 40 MG Sucralfate (Carafate Susp) 1 gm QID PO 07/24/17 09:00 07/31/17 08:59 07/24/17 12:07 1 GM Hydralazine HCl (HydrALAZINE INJ) 5 mg Q4H PRN IV. 07/24/17 08:30 08/23/17 08:29
--- NOTE | 2017-07-24 13:35 | Surgery Progress Note ---
Surgery Progress Note Date of Service Jul 24, 2017. Subjective Post OP Day: 4 (s/p ex lap, right hemicolectomy with primary anastomosis) patient states he has been up and moving recently feeling some abdominal pain secondary to movement + gas but no bowel movement no nausea or vomiting Objective Vital Signs: Date Time Temp Pulse Resp B/P (MAP) Pulse Ox O2 Delivery O2 Flow Rate FiO2 07/24/17 09:31 96 Room Air 07/24/17 08:15 Room Air 07/24/17 07:44 36.9 58 18 183/83 (116) 96 Room Air 07/24/17 02:07 131/63 (85) 07/24/17 00:38 72 179/81 (113) 07/24/17 00:00 Room Air 07/23/17 23:01 36.6 62 20 188/66 (106) 96 Room Air 07/23/17 21:40 62 184/78 (113) 07/23/17 17:58 59 153/68 (96) 07/23/17 17:58 59 153/68 07/23/17 15:45 Room Air 07/23/17 15:05 36.8 61 16 148/73 (98) 97 Room Air General Appearance: WD/WN, no apparent distress Head: normocephalic, atraumatic Neck: trachea midline Respiratory/Chest: no respiratory distress, no accessory muscle use Abdomen: non distended, soft, no organomegaly, no pulsatile mass, + tenderness (appropriate post op) Laboratory Results: Results Past 24 Hours Test 07/23/17 17:47 07/23/17 20:32 07/24/17 06:04 07/24/17 07:56 Range/Units Bedside Glucose 131 124 119 70-99 mg/dl White Blood Count 7.66 4.8-10.8 K/uL Red Blood Count 4.13 4.7-6.1 M/uL Hemoglobin 10.5 14.0-18.0 g/dL Hematocrit 33.4 42-52 % Mean Corpuscular Volume 80.9 80-100 fL Mean Corpuscular Hemoglobin 25.4 25-34 pg Mean Corpuscular Hemoglobin Concent 31.4 32-36 g/dl RDW Standard Deviation 73.5 36.4-46.3 fL RDW Coefficient of Variation 25.8 11.5-14.5 % Platelet Count 229 130-400 K/uL Mean Platelet Volume 9.2 7.4-10.4 fL Prothrombin Time 14.5 9.0-12.0 SECONDS Prothromb Time International Ratio 1.4 0.9-1.1 Sodium Level 136 136-145 mmol/L Potassium Level 3.4 3.5-5.1 mmol/L Chloride Level 101 98-107 mmol/L Carbon Dioxide Level 26 21-32 mmol/L Anion Gap 9.0 3-11 mmol/L Blood Urea Nitrogen 9 7-18 mg/dl Creatinine 0.88 0.60-1.40 mg/dl Est Creatinine Clear Calc Drug Dose 79.1 ml/min Estimated GFR () 92.7 Estimated GFR (Non- 80.0 BUN/Creatinine Ratio 9.7 10-20 Random Glucose 97 70-99 mg/dl Calcium Level 7.7 8.5-10.1 mg/dl Phosphorus Level 1.6 2.5-4.9 mg/dl Magnesium Level 1.8 1.8-2.4 mg/dl Test 07/24/17 12:02 Range/Units Bedside Glucose 109 70-99 mg/dl Assessment & Plan POD # 4 s/p ex lap, 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 Esposito has seen and examined patient, agrees with above.
[2017-07-24] MEDS: WARFARIN SOD 0.5 MG TAB PO SCH (16:22)
[2017-07-24] MEDS ORDERED: ENALAPRILAT IV 1.25 MG in DEXTROSE 5% 25ML 25 ML IV ONE (18:00)
[2017-07-24] MEDS: METOPROLOL SUCC 25MG EXT REL TAB PO SCH (22:12)
[2017-07-24] MEDS: AMIODARONE 200 MG TAB PO SCH (22:12)
[2017-07-24] MEDS: LORAZEPAM 1 MG TAB PO PRN (22:13)
[2017-07-25] MEDS: ZOLPIDEM TARTRATE 5 MG TAB PO SCH (00:11)
[2017-07-25 07:42] VITALS: BP 151/73; PULSE 60; TEMP 36.4; O2SAT 97
[2017-07-25 07:43] LABS: INR 1.3 (0.9-1.1)
[2017-07-25] MEDS: INSULIN ASPART 100 UNITS/ML 3 ML PEN SC SCH ×4 (08:00→20:57)
[2017-07-25 08:01] LABS: CALCIUM 7.7 mg/dl (8.5-10.1); CREATININE 0.79 mg/dl (0.60-1.40); POTASSIUM 3.1 mmol/L (3.5-5.1)
[2017-07-25] MEDS: LISINOPRIL 5 MG TAB PO SCH (09:02)
[2017-07-25] MEDS: ENOXAPARIN 40 MG/0.4 ML SYR SQ SCH (09:03)
[2017-07-25] MEDS: SUCRALFATE 1 GM/10 ML UDC PO SCH ×4 (09:03→21:07)
[2017-07-25] MEDS: MAGNESIUM OXIDE 400 MG TAB PO SCH (09:03)
[2017-07-25] MEDS: PANTOprazole SOD 40 MG TAB PO SCH (09:03)
[2017-07-25] MEDS ORDERED: POTASSIUM CHLORIDE 10 MEQ TABCR PO ONE (09:30)
[2017-07-25] MEDS ORDERED: BISACODYL 5 MG TABEC PO ONE ×2 (09:30→11:15)
--- NOTE | 2017-07-25 12:41 | Surgery Progress Note ---
Surgery Progress Note Date of Service Jul 25, 2017. Subjective Post OP Day: 5 (s/p ex lap, right hemicolectomy with primary anastomosis) + feeling well, + complaints (only has abdominal pain when up and moving around) , + ambulating, + flatus, + pain controlled, + diet (tolerated clear liquids, hungry would like something more substantial to eat), No chest pain, No SOB, No bowel movement, No nausea, No vomiting Objective Vital Signs: Date Time Temp Pulse Resp B/P (MAP) Pulse Ox O2 Delivery O2 Flow Rate FiO2 07/25/17 08:45 Room Air 07/25/17 07:42 36.4 60 18 151/73 (99) 97 Room Air 07/25/17 00:05 Room Air 07/24/17 23:05 36.8 61 16 160/71 (100) 95 Room Air 07/24/17 20:20 36.6 73 16 173/83 (113) 95 Room Air 07/24/17 18:08 60 161/89 (113) 07/24/17 16:24 36.6 61 18 173/77 (109) 100 Room Air 07/24/17 15:45 Room Air 07/24/17 13:34 151/56 (87) Physical Exam: KIERSTEN drainage (serosanguineous) General Appearance: WD/WN, no apparent distress Head: normocephalic, atraumatic Neck: trachea midline Respiratory/Chest: no respiratory distress, no accessory muscle use Abdomen: non distended, soft, no organomegaly, no pulsatile mass, + tenderness (at midline incision and at kiersten drain site, appropriate no peritonitis) Incision(s): clean, dry, intact, no erythema, no drainage, findings (is[place] intact) Laboratory Results: Results Past 24 Hours Test 07/24/17 17:11 07/24/17 20:32 07/25/17 06:56 07/25/17 08:05 Range/Units Bedside Glucose 108 134 116 70-99 mg/dl Prothrombin Time 14.0 9.0-12.0 SECONDS Prothromb Time International Ratio 1.3 0.9-1.1 Sodium Level 135 136-145 mmol/L Potassium Level 3.1 3.5-5.1 mmol/L Chloride Level 99 98-107 mmol/L Carbon Dioxide Level 30 21-32 mmol/L Anion Gap 6.0 3-11 mmol/L Blood Urea Nitrogen 7 7-18 mg/dl Creatinine 0.79 0.60-1.40 mg/dl Est Creatinine Clear Calc Drug Dose 88.1 ml/min Estimated GFR () 96.9 Estimated GFR (Non- 83.6 BUN/Creatinine Ratio 9.4 10-20 Random Glucose 107 70-99 mg/dl Calcium Level 7.7 8.5-10.1 mg/dl Magnesium Level 1.8 1.8-2.4 mg/dl Test 07/25/17 12:12 Range/Units Bedside Glucose 152 70-99 mg/dl Assessment & Plan POD # 5 s/p ex lap, right hemicolectomy with primary anastomosis -vitals stable - + flatus, no bowel movement yet - abdominal pain controlled - hypokalemia - Hypertensive Plan: Continue current pain management awaiting return of bowel function 10 mg PO Dulcolax one time Advance diet to low fiber diet encourage ambulation and continued PT/OT Continue TEDs social services analyst for placement continue medical management Replace potassium , 20 mEq PO now, 10 mEq BID starting this evening Dr. Esposito has seen and examined patient, agrees with above
[2017-07-25 13:25] VITALS: BP 119/63; PULSE 60; TEMP 36.7; O2SAT 98
[2017-07-25 15:02] VITALS: BP 169/73; PULSE 60; TEMP 36.7; O2SAT 97
[2017-07-25] MEDS: WARFARIN SOD 0.5 MG TAB PO SCH (16:22)
[2017-07-25 16:38] VITALS: BP 149/72; PULSE 60
--- NOTE | 2017-07-25 20:32 | Progress Note ---
Medicine Progress Note Date & Time of Visit: Jul 25, 2017 at 16:21. Subjective Pt was seen and examined Lying in bed with no distress Pt said that he sat in the chair for too long today He said the abdominal binder causing him to have pain when sitting on the chair for too long he said that he had a lose BM today after he was given Dulcolax Diet was advanced and tolerated He said that pain seems to improve He said that yesterday he walked with PT and felt dizzy half way Denies any chest pain, palpitation, dizziness and SOB Objective Last 8 Hrs Date Time Temp Pulse Resp B/P (MAP) Pulse Ox O2 Delivery O2 Flow Rate FiO2 07/25/17 16:38 60 149/72 (97) 07/25/17 15:02 36.7 60 18 169/73 (105) 97 Room Air 07/25/17 13:25 36.7 60 18 119/63 (81) 98 Room Air Physical Exam: General- No acute distress Head- atraumatic Eyes- PERRL, EOMI ENT- oropharynx clear Neck- supple, no JVD Lungs- clear to auscultation Heart- regular rhythm Abdomen- abdominal binder, +tenderness. Extremities- no calf tenderness; Neuro- alert, oriented x 3; PERRL, EOMI; no facial palsy; Skin- warm & dry Laboratory Results: Last 24 Hours Test 07/24/17 20:32 07/25/17 06:56 07/25/17 08:05 07/25/17 12:12 Bedside Glucose 134 mg/dl 116 mg/dl 152 mg/dl Prothrombin Time 14.0 SECONDS Prothromb Time International Ratio 1.3 Sodium Level 135 mmol/L Potassium Level 3.1 mmol/L Chloride Level 99 mmol/L Carbon Dioxide Level 30 mmol/L Anion Gap 6.0 mmol/L Blood Urea Nitrogen 7 mg/dl Creatinine 0.79 mg/dl Est Creatinine Clear Calc Drug Dose 88.1 ml/min Estimated GFR () 96.9 Estimated GFR (Non- 83.6 BUN/Creatinine Ratio 9.4 Random Glucose 107 mg/dl Calcium Level 7.7 mg/dl Magnesium Level 1.8 mg/dl Test 07/25/17 17:20 Bedside Glucose 155 mg/dl Assessment & Plan This is an 82-year-old male with a past medical history of mixed systolic and diastolic CHF, A Fib (on Coumadin), complete heart block (s/p pacemaker placement), DM II, HTN and other medical problems listed below who is being directly admitted for observation during bowel prep with plans for an EGD/ colonoscopy tomorrow. Iron deficiency anemia: Hbg 11.1 today EGD done showed normal esophagus. gastric antral vascular ectasia without bleeding GI recommended to continue clear liquid diet. IV PPI changed to PO daily for 4weeks Continue sucralfate 1 g PO QID for 1 week Colonoscopy done showed -Malignant looking mass in the ascending colon. - The examined portion of the ileum was normal. - Two 8 mm polyps in the cecum, and three 5 mm polyps in the sigmoid colon, CT chest/Abd/pelvis showed no metastasis. A sending colon mass measuring 4 x 3 cm. No evidence for local invasion. 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 Case discussed with Surgery, plant to take to OR today for Right hemicolectomy Keep NPO for now Cardiology consult for surgical clearance 07/25 S/P day 5 exploratory lap, right hemicolectomy with anastomosis No post op complication Hgb stable NG tube removed Diet advanced to low fiber had a BM today Continue incentive spirometry Continue IV morphine for pain On zosyn and protonix IV Continue daily wound care Surgery on board Monitor CBC Berman removed Continue PT/OT Electrolytes imbalance K 3.1 K replaced Continue monitor electrolytes Mixed systolic, diastolic CHF: No signs of overload Last echo was Apr 08 with EF of 46% (improved from 30%) .Normal LV size with mild concentric LVH Mildly reduced LV systolic function with abnormal septal wall motion consistent with RV pacemaker activation along with mild global hypokinesis 07/22 Cardiology on board Denies any chest pain and SOB No absolute contraindications to proceed with surgery based on cardiac status. He has had no recent myocardial infarction, significant arrhythmia or valvular disease, heart failure. Surgical risk elevated given with pt cardiac history and commodities. Pt understood surgical risks such as RI, Will change IV metoprolol to Oral OK from cardiology to transfer to medical ECHO DONE -- Conclusions -- * The left ventricle is normal in size. * There is mild concentric left ventricular hypertrophy. * Apical wall motion abnormality may reflect pacemaker activation. * Ejection Fraction = 50-55%. * The right ventricle is normal in size and function. * There is a pacemaker lead in the right ventricle. * Borderline left atrial enlargement. * Aortic valve sclerosis mild, without significant aortic valvular stenosis. * Doppler findings do not suggest pulmonary hypertension. 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 agents SSI while in-patient BSG AC HS HTN: BP improved Cont beta james Starting on Lisinopril 5 mg Refused hydralazine prn Continue monitor BP Insomnia: Overslept last night Continue ambien and decrease ativan to 1mg prn for sleep DVT Ppx: SCDs./Lovenox Will d/c lovenox once INR therapeutic Code status: FULL code Disposition Will discharge once medically stable Waiting for placement to rehab Consultants: Surgery Cardio Current Inpatient Medications: Current Inpatient Medications Medications (Trade) Dose Ordered Sig/Cholo Route Start Time Stop Time Status Last Admin Dose Admin Acetaminophen (Tylenol Tab) 650 mg Q4H PRN PO 07/17/17 17:15 08/16/17 17:14 Future Hold Glucose (Glucose 40% Gel) 15-30 GRAMS 15 GRAMS... UD PRN PO 07/17/17 17:15 08/16/17 17:14 Glucose (Glucose Chew Tab) 4-8 Tablets 4 Tabl... UD PRN PO 07/17/17 17:15 08/16/17 17:14 Dextrose (Dextrose 50% 50ML Syringe) 25-50ML OF 50% DW IV FOR... UD PRN IV 07/17/17 17:15 08/16/17 17:14 07/18/17 08:36 25 ML Glucagon (Glucagon Inj) 1 mg UD PRN SQ 07/17/17 17:15 08/16/17 17:14 Amiodarone HCl (Cordarone Tab) 200 mg QPM PO 07/17/17 21:00 08/16/17 20:59 Future hold 07/24/17 22:12 200 MG Zolpidem Tartrate (Ambien Tab) 5 mg HS PO 07/17/17 21:00 08/16/17 20:59 Future hold 07/25/17 00:11 5 MG Miscellaneous Information (Order Awaiting Action) 1 ea QS N/A 07/18/17 00:00 08/17/17 00:00 Miscellaneous (Iv Fluids Completed) 1 ea PRN PRN N/A 07/17/17 19:15 07/17/18 19:14 Morphine Sulfate (MoRPHine SULFATE INJ) 2 mg Q3HWA PRN IV 07/20/17 16:15 08/03/17 16:14 07/22/17 08:46 2 MG Hydromorphone HCl (Dilaudid Inj) 0.5 mg Q3HWA PRN IV 07/20/17 16:15 08/03/17 16:14 07/23/17 15:34 0.5 MG Enoxaparin Sodium (Lovenox Inj) 40 mg QAM SQ 07/21/17 09:00 08/20/17 08:59 07/25/17 09:03 40 MG Ferrous Sulfate (Feosol Elix) 325 mg BIDM NG 07/21/17 08:30 08/20/17 08:29 Future Hold 07/21/17 16:12 325 MG Ondansetron HCl (Zofran Inj) 4 mg Q6H PRN IV 07/21/17 09:30 08/20/17 09:29 Phenol (Chloraseptic 1.4% [place]) 1 sprays Q4H PRN MT 07/21/17 22:30 08/20/17 22:29 Enalaprilat 1.25 mg/Dextrose 26 ml @ 100 mls/hr Q24H IV 07/23/17 09:00 08/22/17 08:59 Future Hold 07/24/17 12:43 100 MLS/HR Metoprolol Succinate (Toprol Xl Tab) 25 mg QPM PO 07/23/17 21:00 08/22/17 20:59 07/24/17 22:12 25 MG Insulin Aspart (novoLOG ASPART) SLIDING SCALE If C... ACHS SC 07/24/17 08:00 08/22/17 07:59 Pantoprazole Sodium (Protonix Tab) 40 mg QAM PO 07/24/17 09:00 07/27/17 09:01 07/25/17 09:03 40 MG Sucralfate (Carafate Susp) 1 gm QID PO 07/24/17 09:00 07/31/17 08:59 07/25/17 16:23 1 GM Hydralazine HCl (HydrALAZINE INJ) 5 mg Q4H PRN IV. 07/24/17 08:30 08/23/17 08:29 Magnesium Oxide (Mag-Ox Tab) 400 mg QAM PO 07/25/17 09:00 08/24/17 08:59 07/25/17 09:03 400 MG Lorazepam (Ativan Tab) 1 mg HS PRN PO 07/24/17 21:00 08/16/17 20:59 07/24/17 22:13 1 MG Warfarin Sodium (Coumadin Tab) 0.5 mg DAILY@16 PO 07/24/17 16:00 08/23/17 15:59 07/25/17 16:22 0.5 MG Lisinopril (Zestril Tab) 5 mg QAM PO 07/25/17 09:00 08/24/17 08:59 07/25/17 09:02 5 MG Potassium Chloride (Klor-Con M10) 10 meq BID PO 07/25/17 21:00 08/24/17 20:59
[2017-07-25 21:01] VITALS: BP 138/71; PULSE 57
[2017-07-25] MEDS: POTASSIUM CHLORIDE 10 MEQ TABCR PO SCH (21:08)
[2017-07-25] MEDS: AMIODARONE 200 MG TAB PO SCH (21:08)
[2017-07-25] MEDS: METOPROLOL SUCC 25MG EXT REL TAB PO SCH (21:08)
[2017-07-25] MEDS: LORAZEPAM 1 MG TAB PO PRN (22:15)
[2017-07-25 23:45] VITALS: BP 157/74; PULSE 60; TEMP 36.8; O2SAT 96
[2017-07-26] VITALS (7 sets, daily range): BP systolic 118–167; BP diastolic 65–89; PULSE 60–82; TEMP 36.6–36.8; O2SAT 92–96
[2017-07-26] MEDS: ZOLPIDEM TARTRATE 5 MG TAB PO SCH ×2 (00:37→23:27)
[2017-07-26 07:50] LABS: HEMATOCRIT 31.9 % (42-52); HEMOGLOBIN 10.2 g/dL (14.0-18.0); MEAN CELL VOLUME 79.9 fL (80-100); MEAN CORPUSCULAR HEMOGLOBIN 25.6 pg (25-34); MEAN PLATELET VOLUME 8.7 fL (7.4-10.4); PLATELET COUNT 213 K/uL (130-400); WHITE BLOOD COUNT 7.52 K/uL (4.8-10.8)
[2017-07-26 07:55] LABS: INR 1.3 (0.9-1.1)
[2017-07-26 08:15] LABS: CALCIUM 7.6 mg/dl (8.5-10.1); CREATININE 0.99 mg/dl (0.60-1.40)
[2017-07-26] MEDS: INSULIN ASPART 100 UNITS/ML 3 ML PEN SC SCH ×4 (09:22→21:00)
[2017-07-26] MEDS: LISINOPRIL 5 MG TAB PO SCH (09:23)
[2017-07-26] MEDS: POTASSIUM CHLORIDE 10 MEQ TABCR PO SCH ×2 (09:23→22:22)
[2017-07-26] MEDS: PANTOprazole SOD 40 MG TAB PO SCH (09:24)
[2017-07-26] MEDS: MAGNESIUM OXIDE 400 MG TAB PO SCH (09:24)
[2017-07-26] MEDS: SUCRALFATE 1 GM/10 ML UDC PO SCH ×4 (09:24→21:48)
[2017-07-26] MEDS: ENOXAPARIN 40 MG/0.4 ML SYR SQ SCH (09:25)
[2017-07-26] MEDS ORDERED: POTASSIUM CHLORIDE 20 MEQ TABCR PO STA (10:32)
--- NOTE | 2017-07-26 11:08 | Surgery Progress Note ---
Surgery Progress Note Date of Service Jul 26, 2017. Subjective + feeling well pt is doing fine, passed gas and BM, pt tolerated regular diet, no abdominal pain, RENATE minimal, Objective Vital Signs: Date Time Temp Pulse Resp B/P (MAP) Pulse Ox O2 Delivery O2 Flow Rate FiO2 07/26/17 08:52 96 Room Air 07/26/17 07:54 36.6 60 13 152/74 (100) 96 Room Air 07/26/17 07:40 Room Air 07/26/17 00:25 Room Air 07/25/17 23:45 36.8 60 16 157/74 (101) 96 Room Air 07/25/17 21:01 57 138/71 (93) 07/25/17 16:38 60 149/72 (97) 07/25/17 16:20 Room Air 07/25/17 15:02 36.7 60 18 169/73 (105) 97 Room Air 07/25/17 13:25 36.7 60 18 119/63 (81) 98 Room Air General Appearance: WD/WN, no apparent distress Head: normocephalic Neck: supple, no adenopathy, no JVD Respiratory/Chest: chest non-tender, lungs clear, normal breath sounds Cardiovascular: regular rate, rhythm, no edema, no gallop, no JVD Abdomen: normal bowel sounds, non tender, non distended, soft Incision(s): clean, dry, intact Extremities: normal range of motion, non-tender, normal inspection Laboratory Results: Results Past 24 Hours Test 07/25/17 12:12 07/25/17 17:20 07/25/17 20:25 07/26/17 07:16 Range/Units Bedside Glucose 152 155 132 70-99 mg/dl White Blood Count 7.52 4.8-10.8 K/uL Red Blood Count 3.99 4.7-6.1 M/uL Hemoglobin 10.2 14.0-18.0 g/dL Hematocrit 31.9 42-52 % Mean Corpuscular Volume 79.9 80-100 fL Mean Corpuscular Hemoglobin 25.6 25-34 pg Mean Corpuscular Hemoglobin Concent 32.0 32-36 g/dl Platelet Count 213 130-400 K/uL Mean Platelet Volume 8.7 7.4-10.4 fL Prothrombin Time 14.0 9.0-12.0 SECONDS Prothromb Time International Ratio 1.3 0.9-1.1 Sodium Level 136 136-145 mmol/L Potassium Level 3.0 3.5-5.1 mmol/L Chloride Level 101 98-107 mmol/L Carbon Dioxide Level 29 21-32 mmol/L Anion Gap 6.0 3-11 mmol/L Blood Urea Nitrogen 12 7-18 mg/dl Creatinine 0.99 0.60-1.40 mg/dl Est Creatinine Clear Calc Drug Dose 70.3 ml/min Estimated GFR () 81.9 Estimated GFR (Non- 70.6 BUN/Creatinine Ratio 12.4 10-20 Random Glucose 110 70-99 mg/dl Calcium Level 7.6 8.5-10.1 mg/dl Magnesium Level 1.9 1.8-2.4 mg/dl Test 07/26/17 08:14 Range/Units Bedside Glucose 137 70-99 mg/dl Assessment & Plan IMP: right colon cancer, CHF, 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
[2017-07-26 17:34] LABS: INR 1.3 (0.9-1.1)
--- NOTE | 2017-07-26 17:42 | Progress Note ---
Internal Med Progress Note Date of Service: Jul 26, 2017. Provider Documentation: SUBJECTIVE: Feels much better today, had bowel movement earlier Tolerating diet No complaint of nausea vomiting Has minimum pain abdomen surgical site OBJECTIVE: Vital Signs-as noted below Exam: General-no sign of distress, very pleasant Eyes-sclera nonicteric ENT-moist oral mucosa Neck-no JVD Lungs-clear to auscultate no wheeze or rales Heart-regular S1-S2 Abdomen-soft, active bowel sounds, abdominal binder present Extremities-no lower extremity edema, no rash or deformity Neuro -alert-alert awake oriented 3, no focal neurological deficit Lab data as noted below. ASSESSMENT & PLAN: COLON MALIGNANCY/STATUS POST RIGHT [place] COLECTOMY: Presented with iron deficiency anemia Outpatient colonoscopy showed malignant looking mass in the ascending colon Pathology suggestive of infiltrative adenocarcinoma CT abdomen pelvis: Showed no metastasis ascending colon mass measuring 4x3 cm Patient underwent elective right hemicolectomy by surgery Dr. Esposito Status post Day 6: Postop exploratory laparotomy/right hemicolectomy with anastomosis Diet advanced to low fiber tolerating well Able to have bowel movement Pathology of surgical specimen shows: Well-differentiated invasive adenocarcinoma, tumor invades through the muscularis propria into the amador- colorectal tissue Lymph nodes negative for metastatic carcinoma examined margins are free from neoplasm Appreciate input from surgery Stable from surgical perspective to be transferred to rehab Oncology consult requested for recommendation for possible adjuvant chemo treatment HISTORY OF A[place]. FIB: Continue on beta-james/amiodarone Coumadin resumed. Follow daily PT/INR MIXED SYSTOLIC/DIASTOLIC CONGESTIVE HEART FAILURE: Stable no evidence of any volume overload Echo done preop showed normal LV function Ejection fraction 50-55% pacemaker lead in right ventricle Appreciate cardiology input for preop evaluation TYPE 2 DIABETES Well-controlled hemoglobin A1c 5.5 in 06/2017 Continue insulin sliding scale HYPERTENSION Continue beta-james/lisinopril CODE STATUS full code DVT PROPHYLAXIS Coumadin Continue subcu Lovenox until INR is therapeutic DISPOSITION Will need rehab Referral made for [facility] Vital Signs: Date Time Temp Pulse Resp B/P (MAP) Pulse Ox O2 Delivery O2 Flow Rate FiO2 07/28/17 14:56 36.6 59 16 121/64 (83) 99 Room Air 07/28/17 08:02 97 Room Air 07/28/17 07:52 36.9 64 14 154/83 (106) 97 Room Air 07/28/17 07:50 Room Air 07/27/17 23:30 Room Air 07/27/17 23:18 37.1 60 15 145/73 (97) 97 Room Air Lab Results: Results Past 24 Hours Test 07/27/17 20:30 07/28/17 06:27 07/28/17 06:31 07/28/17 08:03 Range/Units Bedside Glucose 177 129 70-99 mg/dl Prothrombin Time 13.6 9.0-12.0 SECONDS Prothromb Time International Ratio 1.3 0.9-1.1 Sodium Level 135 136-145 mmol/L Potassium Level 3.5 3.5-5.1 mmol/L Chloride Level 101 98-107 mmol/L Carbon Dioxide Level 27 21-32 mmol/L Anion Gap 7.0 3-11 mmol/L Blood Urea Nitrogen 14 7-18 mg/dl Creatinine 0.98 0.60-1.40 mg/dl Est Creatinine Clear Calc Drug Dose 71.0 ml/min Estimated GFR () 82.9 Estimated GFR (Non- 71.5 BUN/Creatinine Ratio 14.2 10-20 Random Glucose 115 70-99 mg/dl Calcium Level 7.5 8.5-10.1 mg/dl Total Bilirubin 0.5 0.2-1 mg/dl Aspartate Amino Transf (AST/SGOT) 36 15-37 U/L Alanine Aminotransferase (ALT/SGPT) 34 12-78 U/L Alkaline Phosphatase 71 45-117 U/L Total Protein 5.0 6.4-8.2 gm/dl Albumin 2.3 3.4-5.0 gm/dl Globulin 2.7 2.5-4.0 gm/dl Albumin/Globulin Ratio 0.8 0.9-2 Test 07/28/17 12:05 07/28/17 16:59 Range/Units Bedside Glucose 125 123 70-99 mg/dl
[2017-07-26] MEDS ORDERED: WARFARIN SOD 2 MG TAB PO ONE (17:45)
[2017-07-26] MEDS ORDERED: POLYETHYLENE (MIRALAX) 17 GM PACK PO PRN (19:15)
[2017-07-26] MEDS: METOPROLOL SUCC 25MG EXT REL TAB PO SCH (21:49)
[2017-07-26] MEDS: DOCUSATE SODIUM 100 MG CAP PO SCH (21:49)
[2017-07-26] MEDS: AMIODARONE 200 MG TAB PO SCH (21:49)
[2017-07-26] MEDS: LORAZEPAM 1 MG TAB PO PRN (22:22)
[2017-07-26] MEDS: HYDROmorphone INJ 0.5 MG/0.5 ML SYR IV PRN (23:27)
[2017-07-26] MEDS: HydrALAZINE HCL 20 MG/ML VIAL IV. PRN (23:46)
[2017-07-27 00:28] VITALS: BP 135/67
[2017-07-27] MEDS: MoRPHine SULFATE 2 MG/ML CARP IV PRN (04:28)
[2017-07-27 06:29] LABS: INR 1.3 (0.9-1.1)
[2017-07-27 07:35] VITALS: BP 168/71; PULSE 60; TEMP 36.2; O2SAT 95
[2017-07-27] MEDS: INSULIN ASPART 100 UNITS/ML 3 ML PEN SC SCH ×4 (08:00→21:00)
[2017-07-27 08:09] LABS: ALBUMIN 2.3 gm/dl (3.4-5.0); CALCIUM 7.5 mg/dl (8.5-10.1); CREATININE 0.96 mg/dl (0.60-1.40); POTASSIUM 3.1 mmol/L (3.5-5.1)
[2017-07-27] MEDS ORDERED: POTASSIUM CHLORIDE 10 MEQ TABCR PO STA (08:35)
[2017-07-27] MEDS: LISINOPRIL 5 MG TAB PO SCH (08:51)
[2017-07-27] MEDS: MAGNESIUM OXIDE 400 MG TAB PO SCH (08:51)
[2017-07-27] MEDS: SUCRALFATE 1 GM/10 ML UDC PO SCH ×4 (08:51→21:06)
[2017-07-27] MEDS: DOCUSATE SODIUM 100 MG CAP PO SCH ×2 (08:51→21:06)
[2017-07-27] MEDS: ENOXAPARIN 40 MG/0.4 ML SYR SQ SCH (08:51)
[2017-07-27] MEDS: POTASSIUM CHLORIDE 10 MEQ TABCR PO SCH ×2 (08:51→21:07)
--- NOTE | 2017-07-27 09:12 | Surgery Progress Note ---
Surgery Progress Note Date of Service Jul 27, 2017. Subjective + feeling well pt is doing better, he tolerated diet, no abdominal pain, passed BM, RENATE was removed yesterday. Objective Vital Signs: Date Time Temp Pulse Resp B/P (MAP) Pulse Ox O2 Delivery O2 Flow Rate FiO2 07/27/17 07:35 36.2 60 16 168/71 (103) 95 Room Air 07/27/17 07:12 Room Air 07/27/17 00:28 135/67 (89) 07/27/17 00:00 Room Air 07/26/17 23:35 167/80 (109) Room Air 07/26/17 21:48 65 165/82 (109) 07/26/17 16:05 Room Air 07/26/17 15:12 36.8 63 18 150/65 (93) 95 Room Air 07/26/17 13:57 36.7 62 15 118/68 (85) 95 Room Air General Appearance: WD/WN, no apparent distress Head: normocephalic Neck: supple, no JVD Respiratory/Chest: chest non-tender, lungs clear Cardiovascular: regular rate, rhythm, no edema, no gallop Abdomen: normal bowel sounds, non tender, non distended, soft, no organomegaly Incision(s): clean, dry, intact Extremities: normal range of motion, non-tender, normal inspection Laboratory Results: Results Past 24 Hours Test 07/26/17 12:13 07/26/17 17:14 07/26/17 17:55 07/26/17 20:31 Range/Units Bedside Glucose 137 119 128 70-99 mg/dl Prothrombin Time 13.5 9.0-12.0 SECONDS Prothromb Time International Ratio 1.3 0.9-1.1 Test 07/27/17 05:40 07/27/17 05:44 Range/Units Prothrombin Time 13.2 9.0-12.0 SECONDS Prothromb Time International Ratio 1.3 0.9-1.1 Sodium Level 137 136-145 mmol/L Potassium Level 3.1 3.5-5.1 mmol/L Chloride Level 102 98-107 mmol/L Carbon Dioxide Level 28 21-32 mmol/L Anion Gap 7.0 3-11 mmol/L Blood Urea Nitrogen 13 7-18 mg/dl Creatinine 0.96 0.60-1.40 mg/dl Est Creatinine Clear Calc Drug Dose 72.5 ml/min Estimated GFR () 85.0 Estimated GFR (Non- 73.3 BUN/Creatinine Ratio 13.8 10-20 Random Glucose 116 70-99 mg/dl Calcium Level 7.5 8.5-10.1 mg/dl Total Bilirubin 0.6 0.2-1 mg/dl Aspartate Amino Transf (AST/SGOT) 31 15-37 U/L Alanine Aminotransferase (ALT/SGPT) 26 12-78 U/L Alkaline Phosphatase 70 45-117 U/L Total Protein 5.0 6.4-8.2 gm/dl Albumin 2.3 3.4-5.0 gm/dl Globulin 2.7 2.5-4.0 gm/dl Albumin/Globulin Ratio 0.9 0.9-2 Assessment & Plan IMP: right colon cancer, CHF, 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 07/27/2017 low K, pt will have 40 MEQ K-dur po then 10 MEQ bid pt [facility] time now, social work consult again F/U me in 2 weeks, the post-op care instruction was given. 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
[2017-07-27] MEDS ORDERED: POTASSIUM CHLORIDE 10 MEQ TABCR PO ONE (11:50)
[2017-07-27 15:17] VITALS: BP 123/67; PULSE 60; TEMP 36.4; O2SAT 95
[2017-07-27] MEDS ORDERED: CRFUDL PO (15:57)
[2017-07-27] MEDS ORDERED: POTA10CA28 PO (15:57)
[2017-07-27] MEDS ORDERED: ATV/1 PO (15:57)
[2017-07-27] MEDS ORDERED: MRLP17X PO (15:57)
--- NOTE | 2017-07-27 16:17 | Progress Note ---
Internal Med Progress Note Date of Service: Jul 27, 2017. Provider Documentation: SUBJECTIVE: Had bowel movement today Tolerating diet No pain or discomfort in abdomen/surgical site No fever or chills OBJECTIVE: Vital Signs-as noted below Exam: General-no sign of distress, very pleasant Eyes-sclera nonicteric ENT-moist oral mucosa Neck-no JVD Lungs-clear to auscultate no wheeze or rales Heart-regular S1-S2 Abdomen-soft, active bowel sounds, abdominal binder present Extremities-no lower extremity edema, no rash or deformity Neuro -alert-alert awake oriented 3, no focal neurological deficit Lab data as noted below. ASSESSMENT & PLAN: COLON MALIGNANCY/STATUS POST RIGHT [place] COLECTOMY: Presented with iron deficiency anemia Outpatient colonoscopy showed malignant looking mass in the ascending colon Pathology suggestive of infiltrative adenocarcinoma CT abdomen pelvis: Showed no metastasis ascending colon mass measuring 4x3 cm Patient underwent elective right hemicolectomy by surgery Dr. Esposito Status post Day 7: Postop exploratory laparotomy/right hemicolectomy with anastomosis Diet advanced to low fiber tolerating well Able to have bowel movement Pathology of surgical specimen shows: Well-differentiated invasive adenocarcinoma, tumor invades through the muscularis propria into the amador- colorectal tissue Lymph nodes negative for metastatic carcinoma examined margins are free from neoplasm Appreciate input from surgery Stable from surgical perspective to be transferred to rehab Oncology consult requested for recommendation for possible adjuvant chemo treatment HISTORY OF [place]. FIB: Continue on beta-james/amiodarone Coumadin resumed. Follow daily PT/INR MIXED SYSTOLIC/DIASTOLIC CONGESTIVE HEART FAILURE: Stable no evidence of any volume overload Echo done preop showed normal LV function Ejection fraction 50-55% pacemaker lead in right ventricle Appreciate cardiology input for preop evaluation TYPE 2 DIABETES Well-controlled hemoglobin A1c 5.5 in 06/2017 Continue insulin sliding scale HYPERTENSION Continue beta-james/lisinopril CODE STATUS full code DVT PROPHYLAXIS Coumadin Continue subcu Lovenox until INR is therapeutic DISPOSITION Will need rehab Referral made for [facility] discharge to [facility] tomorrow Vital Signs: Date Time Temp Pulse Resp B/P (MAP) Pulse Ox O2 Delivery O2 Flow Rate FiO2 07/28/17 14:56 36.6 59 16 121/64 (83) 99 Room Air 07/28/17 08:02 97 Room Air 07/28/17 07:52 36.9 64 14 154/83 (106) 97 Room Air 07/28/17 07:50 Room Air 07/27/17 23:30 Room Air 07/27/17 23:18 37.1 60 15 145/73 (97) 97 Room Air Lab Results: Results Past 24 Hours Test 07/27/17 20:30 07/28/17 06:27 07/28/17 06:31 07/28/17 08:03 Range/Units Bedside Glucose 177 129 70-99 mg/dl Prothrombin Time 13.6 9.0-12.0 SECONDS Prothromb Time International Ratio 1.3 0.9-1.1 Sodium Level 135 136-145 mmol/L Potassium Level 3.5 3.5-5.1 mmol/L Chloride Level 101 98-107 mmol/L Carbon Dioxide Level 27 21-32 mmol/L Anion Gap 7.0 3-11 mmol/L Blood Urea Nitrogen 14 7-18 mg/dl Creatinine 0.98 0.60-1.40 mg/dl Est Creatinine Clear Calc Drug Dose 71.0 ml/min Estimated GFR () 82.9 Estimated GFR (Non- 71.5 BUN/Creatinine Ratio 14.2 10-20 Random Glucose 115 70-99 mg/dl Calcium Level 7.5 8.5-10.1 mg/dl Total Bilirubin 0.5 0.2-1 mg/dl Aspartate Amino Transf (AST/SGOT) 36 15-37 U/L Alanine Aminotransferase (ALT/SGPT) 34 12-78 U/L Alkaline Phosphatase 71 45-117 U/L Total Protein 5.0 6.4-8.2 gm/dl Albumin 2.3 3.4-5.0 gm/dl Globulin 2.7 2.5-4.0 gm/dl Albumin/Globulin Ratio 0.8 0.9-2 Test 07/28/17 12:05 07/28/17 16:59 Range/Units Bedside Glucose 125 123 70-99 mg/dl
[2017-07-27] MEDS: WARFARIN SOD 2 MG TAB PO SCH (16:57)
[2017-07-27] MEDS: AMIODARONE 200 MG TAB PO SCH (21:06)
[2017-07-27] MEDS: METOPROLOL SUCC 25MG EXT REL TAB PO SCH (21:06)
[2017-07-27] MEDS: LORAZEPAM 1 MG TAB PO PRN (22:28)
[2017-07-27 23:18] VITALS: BP 145/73; PULSE 60; TEMP 37.1; O2SAT 97
[2017-07-27] MEDS: ZOLPIDEM TARTRATE 5 MG TAB PO SCH (23:29)
[2017-07-28 06:50] LABS: INR 1.3 (0.9-1.1)
--- NOTE | 2017-07-28 07:39 | Consultant Recommendations ---
Banking Paralegal Recommendations Date of Service Jul 28, 2017. Banking Paralegal Recommendations May shower, no submerging incision underwater for 2 weeks (no bathing, swimming , hot tubs) If there is no drainage from incision, you do not need to keep covered however if wearing abdominal binder would place 4x4 gauze on incision for comfort. Wear abdominal binder daily for support, may take off at bedtime No heavy lifting over 10 pounds for 6 weeks or until cleared by surgeon Light activity and walking is encouraged to prevent blood clots from forming Recommend low fiber diet for the next 3-4 weeks and then can switch to regular diet. Your surgical israel will be removed in the surgical office Follow-up with Dr. Esposito in 2 weeks, please call office at [phone] to make an appointment
[2017-07-28 07:52] VITALS: BP 154/83; PULSE 64; TEMP 36.9; O2SAT 97
[2017-07-28 07:58] LABS: ALBUMIN 2.3 gm/dl (3.4-5.0); CALCIUM 7.5 mg/dl (8.5-10.1); CREATININE 0.98 mg/dl (0.60-1.40); POTASSIUM 3.5 mmol/L (3.5-5.1)
[2017-07-28] MEDS: INSULIN ASPART 100 UNITS/ML 3 ML PEN SC SCH ×4 (08:00→21:00)
[2017-07-28 08:02] VITALS: O2SAT 97
[2017-07-28] MEDS: SUCRALFATE 1 GM/10 ML UDC PO SCH ×4 (09:23→21:28)
[2017-07-28] MEDS: POTASSIUM CHLORIDE 10 MEQ TABCR PO SCH ×2 (09:24→21:30)
[2017-07-28] MEDS: MAGNESIUM OXIDE 400 MG TAB PO SCH (09:24)
[2017-07-28] MEDS: LISINOPRIL 5 MG TAB PO SCH (09:24)
[2017-07-28] MEDS: DOCUSATE SODIUM 100 MG CAP PO SCH ×2 (09:24→21:29)
[2017-07-28] MEDS: ENOXAPARIN 40 MG/0.4 ML SYR SQ SCH (09:25)
--- NOTE | 2017-07-28 09:41 | Medical Consult ---
Consultation Date of Consultation: Jul 28, 2017. Attending Physician: Tatyana Hawley M.D. Reason for Consultation: Establish care for colon care History of Present Illness In summary, he is a 82-year-old male, Mr. Thayer is an 82 yo M new to the consulting Medical Oncology service. He has PMH significant for ETOH dependence , HTN, CHF, CAD, T2DM, h/o prostate cancer s/p prostatectomy, atrial fibrillation. He was directly admitted on 07/17/17 for possible CHF exacerbation in the setting of a decreasing Hct and transferrin saturation of 6. He was planned for EGD/colonoscopy for further evaluation. The results of EGD/colonoscopy are as follows: EGD from 07/18/17: Gastric mucosal atrophy. Biopsied. Gastric antral vascular ectasia without bleeding. Treated with argon plasma coagulation (APC). Colonoscopy from 07/18/17: A frond-like/villous, infiltrative and ulcerated non- obstructing large mass was found in the ascending colon. The mass was partially circumferential (involving one-half of the lumen circumference). The mass measured five cm in length. In addition, its diameter measured twenty-five mm. Oozing was present. Two 8 mm polyps in the cecum, removed with a cold snare. Resected and retrieved. Three 5 mm polyps in the sigmoid colon, removed with a cold snare. Pathology: EGD/Colonoscopy pathology from 07/18/17: 1. mild chronic gastritis is seen. 2. an inflamed benign polyp consistent with a tubular adenoma is seen in sigmoid. 3. a hyperplastic polyp is noted in sigmoid. 4. an infiltrative adenocarcinoma is seen of ascending colon mass. 5. a cecal inflamed tubular adenoma is seen. 2. an inflamed cecal hyperplastic polyp. The infiltrative adenocarcinoma retained staining for MSH2 and MSH6. In contrast , MLH1 protein and PMS2 protein are not present on the immunohistochemical stains. 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 Staging CT of chest/abdomen/pelvis revealed the ascending colon mass, some nonenlarged pericecal lymph nodes. No distant metastatic disease. Right hemicolectomy with node dissection from 07/20/17: 3 x 3 1.5 cm adenocarcinoma tumor of ascending colon with mucinous features (<50%). Histologically low grade. Margins are negative, closest margin is 1.5 cm, mesenteric. Lymphvascular/perineural invasion not identified. Tumor deposits not identified. pT3 pN0 (0/10 lymph nodes positive for metastases). 2 small separate tubular adenomas. Additional history obtained from the patient at bedside. He reports he has a few a small BMs since his surgery. He is being kept an additional day before going to [facility] rehab. He feels fatigued. He denies cough or dyspnea. He has not had lightheadedness. He states he did not have melena or hematochezia; bowels turned black after starting iron a couple of weeks prior to hospitalization. He states he did not have bowels changes prior to diagnosis. He did have intermittent right sided abdominal pain. He was diagnosed with prostate cancer 15 yrs+ ago. He had radical prostatectomy. He states he did not have biochemical recurrence and has not required further treatment. He states he has had urinary incontinence since procedure, worse in recent yrs, wears adult diapers. He states 15 yrs ago he was diagnosed with melanoma on right anterior chest that was surgically excised. He states he also had a melanoma on his face surgically removed about 5 yrs ago. He states he has a lesion on right cheek and one on his back that he is f/u with [facility] for removal soon. Past Medical/Surgical History Medical Problems: (1) Lightheadedness Status: Acute (2) Near syncope Status: Acute Family History Patient reports no known family medical history. Social History Smoking Status: Never Smoker Smokeless Tobacco Use: No Alcohol Use: occasionally Drug Use: none Marital Status: single Occupation Status: retired Allergies Coded Allergies: Sildenafil (Verified Allergy, Unknown, Unknown, 07/25/17) per [employer] Streptomycin (Verified Allergy, Unknown, Unknown, 07/25/17) per [employer] Sulfites (Verified Allergy, Unknown, THROAT CONSTRICTION, 07/11/17) Uncoded Allergies: VASODILATORS (Allergy, Intermediate, red swelling, 02/01/11) Current Inpatient Medications Current Inpatient Medications Medications (Trade) Dose Ordered Sig/Cholo Route Start Time Stop Time Status Last Admin Dose Admin Acetaminophen (Tylenol Tab) 650 mg Q4H PRN PO 07/17/17 17:15 08/16/17 17:14 Future Hold Glucose (Glucose 40% Gel) 15-30 GRAMS 15 GRAMS... UD PRN PO 07/17/17 17:15 08/16/17 17:14 Glucose (Glucose Chew Tab) 4-8 Tablets 4 Tabl... UD PRN PO 07/17/17 17:15 08/16/17 17:14 Dextrose (Dextrose 50% 50ML Syringe) 25-50ML OF 50% DW IV FOR... UD PRN IV 07/17/17 17:15 08/16/17 17:14 07/18/17 08:36 25 ML Glucagon (Glucagon Inj) 1 mg UD PRN SQ 07/17/17 17:15 08/16/17 17:14 Amiodarone HCl (Cordarone Tab) 200 mg QPM PO 07/17/17 21:00 08/16/17 20:59 Future hold 07/27/17 21:06 200 MG Zolpidem Tartrate (Ambien Tab) 5 mg HS PO 07/17/17 21:00 08/16/17 20:59 Future hold 07/27/17 23:29 5 MG Miscellaneous Information (Order Awaiting Action) 1 ea QS N/A 07/18/17 00:00 08/17/17 00:00 Miscellaneous (Iv Fluids Completed) 1 ea PRN PRN N/A 07/17/17 19:15 07/17/18 19:14 Morphine Sulfate (MoRPHine SULFATE INJ) 2 mg Q3HWA PRN IV 07/20/17 16:15 08/03/17 16:14 07/27/17 04:28 2 MG Hydromorphone HCl (Dilaudid Inj) 0.5 mg Q3HWA PRN IV 07/20/17 16:15 08/03/17 16:14 07/26/17 23:27 0.5 MG Enoxaparin Sodium (Lovenox Inj) 40 mg QAM SQ 07/21/17 09:00 08/20/17 08:59 07/27/17 08:51 40 MG Ferrous Sulfate (Feosol Elix) 325 mg BIDM NG 07/21/17 08:30 08/20/17 08:29 Future Hold 07/21/17 16:12 325 MG Ondansetron HCl (Zofran Inj) 4 mg Q6H PRN IV 07/21/17 09:30 08/20/17 09:29 Phenol (Chloraseptic 1.4% Tomales) 1 sprays Q4H PRN MT 07/21/17 22:30 08/20/17 22:29 Enalaprilat 1.25 mg/Dextrose 26 ml @ 100 mls/hr Q24H IV 07/23/17 09:00 08/22/17 08:59 Future Hold 07/24/17 12:43 100 MLS/HR Metoprolol Succinate (Toprol Xl Tab) 25 mg QPM PO 07/23/17 21:00 08/22/17 20:59 07/27/17 21:06 25 MG Insulin Aspart (novoLOG ASPART) SLIDING SCALE If C... ACHS SC 07/24/17 08:00 08/22/17 07:59 Sucralfate (Carafate Susp) 1 gm QID PO 07/24/17 09:00 07/31/17 08:59 07/27/17 21:06 1 GM Hydralazine HCl (HydrALAZINE INJ) 5 mg Q4H PRN IV. 07/24/17 08:30 08/23/17 08:29 07/26/17 23:46 5 MG Magnesium Oxide (Mag-Ox Tab) 400 mg QAM PO 07/25/17 09:00 08/24/17 08:59 07/27/17 08:51 400 MG Lorazepam (Ativan Tab) 1 mg HS PRN PO 07/24/17 21:00 08/16/17 20:59 07/27/17 22:28 1 MG Lisinopril (Zestril Tab) 5 mg QAM PO 07/25/17 09:00 08/24/17 08:59 07/27/17 08:51 5 MG Potassium Chloride (Klor-Con M10) 10 meq BID PO 07/25/17 21:00 08/24/17 20:59 07/27/17 21:07 10 MEQ Warfarin Sodium (Coumadin Tab) 2 mg DAILY@16 PO 07/27/17 16:00 08/26/17 15:59 07/27/17 16:57 2 MG Docusate Sodium (coLACE CAP) 100 mg BID PO 07/26/17 21:00 08/25/17 20:59 07/27/17 21:06 100 MG Polyethylene (Miralax Powder Packet) 17 gm DAILY PRN PO 07/26/17 19:15 08/25/17 19:14 Review of Systems Constitutional: + weakness, + fatigue, No weight loss Respiratory: No cough, No shortness of breath Cardiovascular: No chest pain Abdomen: + pain, No nausea, No diarrhea, No constipation, No GI bleeding Genitourinary - Male: + urinary incontinence Physical Exam Date Time Temp Pulse Resp B/P (MAP) Pulse Ox O2 Delivery O2 Flow Rate FiO2 07/28/17 08:02 97 Room Air 07/28/17 07:52 36.9 64 14 154/83 (106) 97 Room Air 07/27/17 23:30 Room Air 07/27/17 23:18 37.1 60 15 145/73 (97) 97 Room Air 07/27/17 16:45 Room Air 07/27/17 15:17 36.4 60 16 123/67 (85) 95 Room Air General Appearance: WD/WN, no apparent distress ENT: hearing grossly normal Neck: no adenopathy Respiratory/Chest: lungs clear, no respiratory distress Cardiovascular: regular rate, rhythm Abdomen/GI: normal bowel sounds Skin: normal color, warm/dry Laboratory Results Last 24 Hours Test 07/27/17 12:03 07/27/17 16:57 07/27/17 20:30 07/28/17 06:27 Bedside Glucose 135 mg/dl 131 mg/dl 177 mg/dl Prothrombin Time 13.6 SECONDS Prothromb Time International Ratio 1.3 Test 07/28/17 06:31 Sodium Level 135 mmol/L Potassium Level 3.5 mmol/L Chloride Level 101 mmol/L Carbon Dioxide Level 27 mmol/L Anion Gap 7.0 mmol/L Blood Urea Nitrogen 14 mg/dl Creatinine 0.98 mg/dl Est Creatinine Clear Calc Drug Dose 71.0 ml/min Estimated GFR () 82.9 Estimated GFR (Non- 71.5 BUN/Creatinine Ratio 14.2 Random Glucose 115 mg/dl Calcium Level 7.5 mg/dl Total Bilirubin 0.5 mg/dl Aspartate Amino Transf (AST/SGOT) 36 U/L Alanine Aminotransferase (ALT/SGPT) 34 U/L Alkaline Phosphatase 71 U/L Total Protein 5.0 gm/dl Albumin 2.3 gm/dl Globulin 2.7 gm/dl Albumin/Globulin Ratio 0.[address] from 07/18/17: Small/moderate bilateral pleural effusions. Mild bibasilar compressive atelectasis. Mild cardiomegaly. Permanent bipolar cardiac pacemaker. Substernal thyroid. No significant mediastinal or hilar adenopathy. Moderate degenerative changes thoracic spine. CT abdomen/pelvis from 07/18/17: Liver enhances uniformly. Spleen is uniform. Mild hyperplastic change of the adrenal glands. Pancreas demonstrates small cystic changes of the pancreatic body and head measuring 5 mm or less. These most likely represent small ipmn change. Mild nonspecific wall thickening of the cecum. Soft tissue mass within the mid ascending colon measuring 4 x 3 cm. Several small nodes immediately adjacent to the cecum measuring up to 6 mm. Significant or bulky pericolonic adenopathy is not appreciated. No significant adenopathy within the inguinal pelvic or abdominal regions. Assessment & Plan 1. 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 History of prostate cancer (15 yrs+) 4. History of melanoma x 2 (5 + 15 yrs ago) * Patient is s/p right hemicolectomy on 07/20/17- Stage II disease, no high risk features present like perineural/lymphvascular invasion, bowel perforation, close/positive margins, poorly differentiated histology * Based upon the absence of high risk features, age and clinical comorbidities, chemotherapy in Stage II colon cancer not advised at this time * Patient will require BRAF testing for the abnormality in the MSI testing identified * Patient is agreeable to IV iron therapy, would like to initiate once he is transferred to rehab * Patient verbalized understanding of the above conversation * Patient will need a follow up with Medical Oncology on discharge to arrange for IV iron Dr. Eng is the attending medical oncologist- please see his addendum. Thanks for the referral. I performed history and physical examination of the patient. I have discussed the patient's case, impression and plan with Jerrica Diane PA-C. Her note reflects my findings and plan. In summary, he is a 82-year-old male, a case of ascending colon adenocarcinoma, S/P right hemicolectomy, stage II disease, no specific high risk feature, not recommending adjuvant chemotherapy treatment, I reviewed with the patient regarding the histopathological findings. Will check CEA level. Will check BRAF testing. Will consider for IV iron therapy as an outpatient. If he does well, will consider for follow-up colonoscopy in about [address] Bethel Eng Hem/Onc
[2017-07-28] MEDS: POLYETHYLENE (MIRALAX) 17 GM PACK PO SCH ×2 (12:30→21:00)
--- NOTE | 2017-07-28 13:30 | Discharge Instructions ---
Discharge Instructions Date of Service Jul 28, 2017. Admission Reason for Admission: Hannah,Pt Being Admitted For This Procedure Discharge Discharge Diagnosis / Problem: COLON CA /ADENOCARCIOMA /S/P RT HEMICOLECTOMY Discharge Goals Goal(s): Increase independence, Improve disease control, Diagnostic testing, Therapeutic intervention Activity Recommendations Activity Level: Assistance Required Therapies: Physical Therapy, Occupational Therapy Lifting Limitations: no more than 10 pounds (FOR 6 WEEKS ) May shower, no submerging incision underwater for 2 weeks (no bathing, swimming , hot tubs) If there is no drainage from incision, you do not need to keep covered however if wearing abdominal binder would place 4x4 gauze on incision for comfort. Wear abdominal binder daily for support, may take off at bedtime No heavy lifting over 10 pounds for 6 weeks or until cleared by surgeon Light activity and walking is encouraged to prevent blood clots from forming Recommend low fiber diet for the next 3-4 weeks and then can switch to regular diet. Your surgical israel will be removed in the surgical office Follow-up with Dr. Esposito in 2 weeks, please call office at [phone] to make an appointment . Additional Information Patient informed of condition: Yes Advance Directives: No DNR: No Level of Care: Skilled Communicable Disease: No Prognosis: Stable Berman Catheter: No Instructions / Follow-Up Instructions / Follow-Up FOLLOW UP WITH SURGERY DR ESPOSITO IN 2 WEEK HEMATOLOGY /ONCOLOGY FOLLOW UP WITH DR PIRES AFTER DISCHARGE FORM REHAB TO ARRANGE OUT PATIENT IV IRON INFUSION ARRANGEMENTS FOR IRON DEFICIENCY ANEMIA Current Hospital Diet Patient's current hospital diet: Low Fiber Diet, Diabetes Type 2 Diet Discharge Diet Recommended Diet: Diabetes Type 2 Diet, Low Fiber Diet Procedures Procedures Performed: Right Hemicolectomy Pending Studies Studies pending at discharge: no Medical Emergencies . Who to Call and When: Medical Emergencies: If at any time you feel your situation is an emergency, please call 911 immediately. . Non-Emergent Contact Non-Emergency issues call your: Primary Care Provider . . "Provider Documentation" section prepared by Tatyana Hawley. . Club Attendant Recommendations Club Attendant Recommendations: May shower, no submerging incision underwater for 2 weeks (no bathing, swimming , hot tubs) If there is no drainage from incision, you do not need to keep covered however if wearing abdominal binder would place 4x4 gauze on incision for comfort. Wear abdominal binder daily for support, may take off at bedtime No heavy lifting over 10 pounds for 6 weeks or until cleared by surgeon Light activity and walking is encouraged to prevent blood clots from forming Recommend low fiber diet for the next 3-4 weeks and then can switch to regular diet. Your surgical israel will be removed in the surgical office Follow-up with Dr. Esposito in 2 weeks, please call office at [phone] to make an appointment Core Measure Problem Core Measures: None
--- NOTE | 2017-07-28 13:32 | Discharge Summary ---
Discharge Summary Date of Service Jul 28, 2017. Discharge Summary Admission Date: Jul 19, 2017 at 23:34 Discharge Date: Jul 28, 2017 Consultations: Surgery Cardio Admission Information HPI (per Admitting provider): This is an 82-year-old male with a past medical history of mixed systolic and diastolic CHF, A Fib (on Coumadin), complete heart block (s/p pacemaker placement), DM II, HTN and other medical problems listed below who is being directly admitted for observation during bowel prep with plans for an EGD/ colonoscopy tomorrow. Patient follows with Dr. Dhillon and was recently referred to GI clinic for new onset iron deficiency anemia. From Feb until now, hemoglobin has decreased from 15.4 to 10.7. Hematocrit has decreased from 45 to 33. Patient denies any symptoms of GI bleeding but states that his stool has been darker for the last few weeks. Attributes the change in color to his iron supplement, which he is taking twice a day. Denies any lightheadedness, visual changes or chest pain. Was experiencing SOB but has improved since beta james dose was decreased to 25mg daily and lasix 20mg daily was initiated at last appointment. Due to complex cardiac history, GI requested that he be observed in-patient overnight to monitor fluid changes during bowel prep. Denies any fever, chills, headache, abdominal pain, nausea, vomiting, diarrhea, constipation, appetite changes, LE swelling. States that he had multiple polyps removed on prior colonoscopies. Last colonoscopy was over 10 years ago. Was instructed to hold the Coumadin; last dose was 5 days ago. Physical Exam (per Admitting): General Appearance: WD/WN, no apparent distress, + pertinent finding ( Resting comfortably. + pallor ) Head: normocephalic, atraumatic Eyes: normal inspection, PERRL, sclerae normal ENT: normal ENT inspection, hearing grossly normal, pharynx normal Neck: supple, thyroid normal, no JVD, trachea midline Respiratory/Chest: chest non-tender, lungs clear, normal breath sounds, no respiratory distress, no accessory muscle use, + pertinent finding (pacemaker in left chest wall) Cardiovascular: regular rate, rhythm, no murmur, normal peripheral pulses, + pertinent finding (1+ pitting edema to BLE. Wearing josefa hose) Abdomen/GI: non tender, soft, no organomegaly Back: normal inspection Extremities/Musculoskelatal: normal inspection, no calf tenderness, no pedal edema Neurologic/Psych: no motor/sensory deficits, alert, normal mood/affect, oriented x 3 Skin: warm/dry, no rash, + pallor Hospital Course COLON MALIGNANCY/STATUS POST RIGHT [place] COLECTOMY: Presented with iron deficiency anemia Outpatient colonoscopy showed malignant looking mass in the ascending colon Pathology suggestive of infiltrative adenocarcinoma CT abdomen pelvis: Showed no metastasis ascending colon mass measuring 4x3 cm Patient underwent elective right hemicolectomy by surgery Dr. Esposito Status post Day 6: Postop exploratory laparotomy/right hemicolectomy with anastomosis Diet advanced to low fiber tolerating well Able to have bowel movement Pathology of surgical specimen shows: Well-differentiated invasive adenocarcinoma, tumor invades through the muscularis propria into the amador- colorectal tissue Lymph nodes negative for metastatic carcinoma examined margins are free from neoplasm Appreciate input from surgery Stable from surgical perspective to be transferred to rehab Humalog consult requested for recommendation for possible adjuvant chemo treatment HISTORY OF A. FIB: Continue on beta-james/amiodarone Coumadin resumed. Follow daily PT/INR MIXED SYSTOLIC/DIASTOLIC CONGESTIVE HEART FAILURE: Stable no evidence of any volume overload Echo done preop showed normal LV function Ejection fraction 50-55% pacemaker lead in right ventricle Appreciate cardiology input for preop evaluation TYPE 2 DIABETES Well-controlled hemoglobin A1c 5.5 in 06/2017 Continue insulin sliding scale HYPERTENSION Continue beta-james/lisinopril CODE STATUS full code DVT PROPHYLAXIS Coumadin Continue subcu Lovenox until INR is therapeutic DISPOSITION Will need rehab Referral made for [facility] Baez/Richarddarrel/Frank Baez Total time spent on discharge = This includes examination of the patient, discharge planning, medication reconciliation, and communication with other providers.
[2017-07-28 14:56] VITALS: BP 121/64; PULSE 59; TEMP 36.6; O2SAT 99
[2017-07-28] MEDS: WARFARIN SOD 2 MG TAB PO SCH (16:58)
--- NOTE | 2017-07-28 17:42 | Progress Note ---
Internal Med Progress Note Date of Service: Jul 28, 2017. Provider Documentation: SUBJECTIVE: Anxious and upset As arrangements made to be transferred to rehab today Does not feel well Wants to wait 1 more day prior to returning to rehab OBJECTIVE: Vital Signs-as noted below Exam: General-no sign of distress, anxious Eyes-sclera nonicteric ENT-moist oral mucosa Neck-no JVD Lungs-clear to auscultate no wheeze or rales Heart-regular S1-S2 Abdomen-soft, active bowel sounds, abdominal binder present Extremities-no lower extremity edema, no rash or deformity Neuro -alert-alert awake oriented 3, no focal neurological deficit Lab data as noted below. ASSESSMENT & PLAN: COLON MALIGNANCY/STATUS POST RIGHT [place] COLECTOMY: Presented with iron deficiency anemia Outpatient colonoscopy showed malignant looking mass in the ascending colon Pathology suggestive of infiltrative adenocarcinoma CT abdomen pelvis: Showed no metastasis ascending colon mass measuring 4x3 cm Patient underwent elective right hemicolectomy by surgery Dr. Esposito Status post Day 8: Postop exploratory laparotomy/right hemicolectomy with anastomosis Diet advanced to low fiber tolerating well Able to have bowel movement Pathology of surgical specimen shows: Well-differentiated invasive adenocarcinoma, tumor invades through the muscularis propria into the amador- colorectal tissue Lymph nodes negative for metastatic carcinoma examined margins are free from neoplasm Appreciate input from surgery Stable from surgical perspective to be transferred to rehab Hematology consult requested for recommendation for possible adjuvant chemo treatment HISTORY OF Elena FIB: Continue on beta-james/amiodarone On Coumadin Follow daily PT/INR MIXED SYSTOLIC/DIASTOLIC CONGESTIVE HEART FAILURE: Stable no evidence of any volume overload Echo done preop showed normal LV function Ejection fraction 50-55% pacemaker lead in right ventricle Appreciate cardiology input for preop evaluation TYPE 2 DIABETES Well-controlled hemoglobin A1c 5.5 in 06/2017 Continue insulin sliding scale HYPERTENSION Continue beta-james/lisinopril CODE STATUS full code DVT PROPHYLAXIS Coumadin Continue subcu Lovenox until INR is therapeutic DISPOSITION Plan to transfer to [facility] tomorrow morning at 10 AM Transportation arranged Appreciate help from social service Vital Signs: Date Time Temp Pulse Resp B/P (MAP) Pulse Ox O2 Delivery O2 Flow Rate FiO2 07/28/17 14:56 36.6 59 16 121/64 (83) 99 Room Air 07/28/17 08:02 97 Room Air 07/28/17 07:52 36.9 64 14 154/83 (106) 97 Room Air 07/28/17 07:50 Room Air 07/27/17 23:30 Room Air 07/27/17 23:18 37.1 60 15 145/73 (97) 97 Room Air Lab Results: Results Past 24 Hours Test 07/27/17 20:30 07/28/17 06:27 07/28/17 06:31 07/28/17 08:03 Range/Units Bedside Glucose 177 129 70-99 mg/dl Prothrombin Time 13.6 9.0-12.0 SECONDS Prothromb Time International Ratio 1.3 0.9-1.1 Sodium Level 135 136-145 mmol/L Potassium Level 3.5 3.5-5.1 mmol/L Chloride Level 101 98-107 mmol/L Carbon Dioxide Level 27 21-32 mmol/L Anion Gap 7.0 3-11 mmol/L Blood Urea Nitrogen 14 7-18 mg/dl Creatinine 0.98 0.60-1.40 mg/dl Est Creatinine Clear Calc Drug Dose 71.0 ml/min Estimated GFR () 82.9 Estimated GFR (Non- 71.5 BUN/Creatinine Ratio 14.2 10-20 Random Glucose 115 70-99 mg/dl Calcium Level 7.5 8.5-10.1 mg/dl Total Bilirubin 0.5 0.2-1 mg/dl Aspartate Amino Transf (AST/SGOT) 36 15-37 U/L Alanine Aminotransferase (ALT/SGPT) 34 12-78 U/L Alkaline Phosphatase 71 45-117 U/L Total Protein 5.0 6.4-8.2 gm/dl Albumin 2.3 3.4-5.0 gm/dl Globulin 2.7 2.5-4.0 gm/dl Albumin/Globulin Ratio 0.8 0.9-2 Test 07/28/17 12:05 07/28/17 16:59 Range/Units Bedside Glucose 125 123 70-99 mg/dl
[2017-07-28] MEDS ORDERED: MRLP17 PO (18:23)
[2017-07-28 21:26] VITALS: BP 157/68; PULSE 60
[2017-07-28] MEDS: METOPROLOL SUCC 25MG EXT REL TAB PO SCH (21:29)
[2017-07-28] MEDS: AMIODARONE 200 MG TAB PO SCH (21:29)
[2017-07-28] MEDS: LORAZEPAM 1 MG TAB PO PRN (22:33)
[2017-07-28 23:13] VITALS: BP 144/67; PULSE 65; TEMP 36.9; O2SAT 98
[2017-07-28] MEDS: ZOLPIDEM TARTRATE 5 MG TAB PO SCH (23:22)
[2017-07-29 07:49] LABS: HEMATOCRIT 32.1 % (42-52); HEMOGLOBIN 10.3 g/dL (14.0-18.0); MEAN CELL VOLUME 79.5 fL (80-100); MEAN CORPUSCULAR HEMOGLOBIN 25.5 pg (25-34); MEAN CORPUSCULAR HGB CONC 32.1 g/dl (32-36); MEAN PLATELET VOLUME 8.4 fL (7.4-10.4); PLATELET COUNT 265 K/uL (130-400); RED CELL DISTRIBUTION WIDTH CV 24.8 % (11.5-14.5); RED CELL DISTRIBUTION WIDTH SD 70.9 fL (36.4-46.3); WHITE BLOOD COUNT 7.14 K/uL (4.8-10.8)
[2017-07-29 07:51] VITALS: BP 170/81; PULSE 67; TEMP 36.5; O2SAT 97
[2017-07-29 07:57] LABS: INR 1.4 (0.9-1.1)
[2017-07-29 08:10] VITALS: BP 154/75; PULSE 69
[2017-07-29] MEDS: POLYETHYLENE (MIRALAX) 17 GM PACK PO SCH (09:00)
[2017-07-29] MEDS: SUCRALFATE 1 GM/10 ML UDC PO SCH (09:13)
[2017-07-29] MEDS: INSULIN ASPART 100 UNITS/ML 3 ML PEN SC SCH (09:13)
[2017-07-29] MEDS: DOCUSATE SODIUM 100 MG CAP PO SCH (09:13)
[2017-07-29] MEDS: MAGNESIUM OXIDE 400 MG TAB PO SCH (09:14)
[2017-07-29] MEDS: LISINOPRIL 5 MG TAB PO SCH (09:14)
[2017-07-29] MEDS: POTASSIUM CHLORIDE 10 MEQ TABCR PO SCH (09:14)
[2017-07-29] MEDS: ENOXAPARIN 40 MG/0.4 ML SYR SQ SCH (09:15)
[2017-07-29 09:43] VITALS: BP 154/75; PULSE 69; TEMP 36.5; O2SAT 97
--- NOTE | 2017-07-29 10:21 | Discharge Summary ---
Discharge Summary Date of Service Jul 29, 2017. Discharge Summary Admission Date: Jul 19, 2017 at 23:34 Discharge Date: Jul 28, 2017 Discharge Disposition: alf facility ([facility] ) Principal Diagnosis: COLON CA /ADENOCARCINOMA /S/P RT HEMICOLECTOMY/IRON DEFICIENCY ANEMIA Procedures: Procedures Performed: Right Hemicolectomy Consultations: Surgery-DR NORBERTO ORELLANA CARDIOLOGY HEME /ONC DR PIRES Medication Reconciliation New Medications: Polyethylene (Miralax) 17 Gm Pow 17 GM PO DAILY PRN for Constipation for 30 Days Polyethylene (Miralax) 17 Gm Pow 17 GM PO BID PRN for Constipation for 30 Days Potassium Chloride (Micro-K Ext Rel) 10 Meq Capcr 10 MEQ PO BID for 30 Days Sucralfate (Sucralfate) 1 Gm/10 Ml Susp 1 GM PO QID for 30 Days Continued Medications: Amiodarone Hcl (Cordarone) 200 Mg Tab 200 MG PO QPM Aspirin (Aspirin 81) 81 Mg Tab 81 MG PO QAM Clindamycin Phosphate (Topical (Clindamycin Phosphate) 1 % Gel 1 APPLN TOP DAILY APPLY TO CHEEKS Docusate Sodium (Docusate Sodium) 100 Mg Cap 1 CAP PO QAM Ferrous Sulfate (Ferrous Sulfate) 325 Mg Tab 1 TAB PO BID Furosemide (Lasix) 20 Mg Tab 20 MG PO DAILY NEW PRESCRIPTION, HAS NOT STARTED YET Insulin Glargine (Lantus) 100 Unit/Ml Inj 10 UNITS SC QAM Loratadine (Claritin) 10 Mg Tab 10 MG PO DAILY Lorazepam (Ativan) 1 Mg Tab 1-2 TABS PO HS, #10 (This prescription has been renewed) Magnesium Oxide (Mag-Ox) 400 Mg Tab 400 TAB PO QAM Metoprolol Succ (Toprol Xl) (Toprol-Xl) 25 Mg Tabcr 25 MG PO QPM Mometasone Furoate (Nasal) (Mometasone Furoate) 50 Mcg/Act Spr 2 SPRAY LUIS A DAILY Multiple Vitamins W/ Minerals (Ocuvite) 1 Tab Tab 1 TAB PO QAM Multivitamin (Multivitamin) Tab 1 TAB PO QAM Thiamine Hcl (Vitamin B-1) 100 Mg Tab 100 MG PO WK Warfarin Sod (Jantoven) 2 Mg Tab 0.5 TAB PO 3XWK Warfarin Sod (Jantoven) 2 Mg Tab 1 TAB PO 4XWK SUN,TUES,THURS,SAT Zolpidem Tartrate (Ambien) 5 Mg Tab 5 MG PO HS Discontinued Medications: Doxycycline Hyclate (Doxycycline Hyclate) 100 Mg Tab 100 MG PO HS Referrals At Discharge Follow up Referrals: Physician Referral - Within 1-2 Weeks with Tania Esposito MD Admission Information HPI (per Admitting provider): This is an 82-year-old male with a past medical history of mixed systolic and diastolic CHF, A Fib (on Coumadin), complete heart block (s/p pacemaker placement), DM II, HTN and other medical problems listed below who is being directly admitted for observation during bowel prep with plans for an EGD/ colonoscopy tomorrow. Patient follows with Dr. Dhillon and was recently referred to GI clinic for new onset iron deficiency anemia. From Feb until now, hemoglobin has decreased from 15.4 to 10.7. Hematocrit has decreased from 45 to 33. Patient denies any symptoms of GI bleeding but states that his stool has been darker for the last few weeks. Attributes the change in color to his iron supplement, which he is taking twice a day. Denies any lightheadedness, visual changes or chest pain. Was experiencing SOB but has improved since beta james dose was decreased to 25mg daily and lasix 20mg daily was initiated at last appointment. Due to complex cardiac history, GI requested that he be observed in-patient overnight to monitor fluid changes during bowel prep. Denies any fever, chills, headache, abdominal pain, nausea, vomiting, diarrhea, constipation, appetite changes, LE swelling. States that he had multiple polyps removed on prior colonoscopies. Last colonoscopy was over 10 years ago. Was instructed to hold the Coumadin; last dose was 5 days ago. Physical Exam (per Admitting): General Appearance: WD/WN, no apparent distress, + pertinent finding ( Resting comfortably. + pallor ) Head: normocephalic, atraumatic Eyes: normal inspection, PERRL, sclerae normal ENT: normal ENT inspection, hearing grossly normal, pharynx normal Neck: supple, thyroid normal, no JVD, trachea midline Respiratory/Chest: chest non-tender, lungs clear, normal breath sounds, no respiratory distress, no accessory muscle use, + pertinent finding (pacemaker in left chest wall) Cardiovascular: regular rate, rhythm, no murmur, normal peripheral pulses, + pertinent finding (1+ pitting edema to BLE. Wearing josefa hose) Abdomen/GI: non tender, soft, no organomegaly Back: normal inspection Extremities/Musculoskelatal: normal inspection, no calf tenderness, no pedal edema Neurologic/Psych: no motor/sensory deficits, alert, normal mood/affect, oriented x 3 Skin: warm/dry, no rash, + pallor Hospital Course No complaint of abdominal pain had normal bowel movement yesterday No fever or chills, denies of any discomfort Stable to be transferred to rehab today Physical exam Exam: General-no sign of distress, anxious Eyes-sclera nonicteric ENT-moist oral mucosa Neck-no JVD Lungs-clear to auscultate no wheeze or rales Heart-regular S1-S2 Abdomen-soft, active bowel sounds, abdominal binder present Extremities-no lower extremity edema, no rash or deformity Neuro -alert-alert awake oriented 3, no focal neurological deficit Date Time Temp Pulse Resp B/P (MAP) Pulse Ox O2 Delivery O2 Flow Rate FiO2 07/29/17 09:43 36.5 69 22 97 Room Air 07/29/17 08:10 69 154/75 (101) 07/29/17 07:51 36.5 67 22 170/81 (110) 97 Room Air 07/29/17 07:30 Room Air 07/28/17 23:40 Room Air 07/28/17 23:13 36.9 65 18 144/67 (92) 98 Room Air 07/28/17 21:26 60 157/68 (97) 07/28/17 16:45 Room Air 07/28/17 14:56 36.6 59 16 121/64 (83) 99 Room Air COLON MALIGNANCY/STATUS POST RIGHT [place] COLECTOMY: Presented with iron deficiency anemia Outpatient colonoscopy showed malignant looking mass in the ascending colon Pathology suggestive of infiltrative adenocarcinoma CT abdomen pelvis: Showed no metastasis ascending colon mass measuring 4x3 cm Patient underwent elective right hemicolectomy by surgery Dr. Esposito on 07/20/2017 Status post Day 9: Postop exploratory laparotomy/right hemicolectomy with anastomosis Diet advanced to low fiber tolerating well Having normal bowel movement Postsurgical wound well-healed, okay by surgical team to transfer patient to rehab follow-up with surgery 2 weeks postop in clinic Pathology of surgical specimen shows: Well-differentiated invasive adenocarcinoma, tumor invades through the muscularis propria into the amador- colorectal tissue Lymph nodes negative for metastatic carcinoma examined margins are free from neoplasm Appreciate input from surgery Stable from surgical perspective to be transferred to rehab Hematology consult requested for recommendation Appreciate input Stage II adeno CA of COLON -With clear surgical margin with no lymph node metastases, chance of recurrence remains low Given stage of cancer, advanced age, comorbidities-not a candidate for chemo treatment Patient will need outpatient follow-up with hematology, for PERIODIC IV iron transfusion for iron deficiency anemia HISTORY OF A. FIB: Continue on beta-james/amiodarone On Coumadin MIXED SYSTOLIC/DIASTOLIC CONGESTIVE HEART FAILURE: Stable no evidence of any volume overload Echo done preop showed normal LV function Ejection fraction 50-55% pacemaker lead in right ventricle Appreciate cardiology input for preop evaluation Continue on Lasix 20 mg daily TYPE 2 DIABETES Well-controlled hemoglobin A1c 5.5 in 06/2017 Continue insulin sliding scale Discharged on patient's prior insulin regimen of Lantus 10 units subcu a.m. HYPERTENSION Continue beta-james/lisinopril CODE STATUS full code DVT PROPHYLAXIS Coumadin DISPOSITION Patient is transferred to [facility] for rehab today Total time spent on discharge = 45 MINS This includes examination of the patient, discharge planning, medication reconciliation, and communication with other providers. Discharge Instructions Discharge Instructions Date of Service Jul 28, 2017. Admission Reason for Admission: Hannah,Pt Being Admitted For This Procedure Discharge Discharge Diagnosis / Problem: COLON CA /ADENOCARCINOMA /S/P RT HEMICOLECTOMY/ IRON DEFICIENCY ANEMIA Discharge Goals Goal(s): Increase independence, Improve disease control, Diagnostic testing, Therapeutic intervention Activity Recommendations Activity Level: Assistance Required Therapies: Physical Therapy, Occupational Therapy Lifting Limitations: no more than 10 pounds (FOR 6 WEEKS ) May shower, no submerging incision underwater for 2 weeks (no bathing, swimming , hot tubs) If there is no drainage from incision, you do not need to keep covered however if wearing abdominal binder would place 4x4 gauze on incision for comfort. Wear abdominal binder daily for support, may take off at bedtime No heavy lifting over 10 pounds for 6 weeks or until cleared by surgeon Light activity and walking is encouraged to prevent blood clots from forming Recommend low fiber diet for the next 3-4 weeks and then can switch to regular diet. Your surgical israel will be removed in the surgical office Follow-up with Dr. Esposito in 2 weeks, please call office at [phone] to make an appointment . Additional Information Patient informed of condition: Yes Advance Directives: No DNR: No Level of Care: Skilled Communicable Disease: No Prognosis: Stable Berman Catheter: No Instructions / Follow-Up Instructions / Follow-Up FOLLOW UP WITH SURGERY DR ESPOSITO IN 2 WEEK HEMATOLOGY /ONCOLOGY FOLLOW UP WITH DR IPRES AFTER DISCHARGE FORM REHAB TO ARRANGE OUT PATIENT IV IRON INFUSION ARRANGEMENTS FOR IRON DEFICIENCY ANEMIA Current Hospital Diet Patient's current hospital diet: Low Fiber Diet, Diabetes Type 2 Diet Discharge Diet Recommended Diet: Diabetes Type 2 Diet, Low Fiber Diet Procedures Procedures Performed: Right Hemicolectomy Pending Studies Studies pending at discharge: no Medical Emergencies . Who to Call and When: Medical Emergencies: If at any time you feel your situation is an emergency, please call 911 immediately. . Non-Emergent Contact Non-Emergency issues call your: Primary Care Provider . . "Provider Documentation" section prepared by Tatyana Hawley. . Claims Specialist Recommendations Claims Specialist Recommendations: May shower, no submerging incision underwater for 2 weeks (no bathing, swimming , hot tubs) If there is no drainage from incision, you do not need to keep covered however if wearing abdominal binder would place 4x4 gauze on incision for comfort. Wear abdominal binder daily for support, may take off at bedtime No heavy lifting over 10 pounds for 6 weeks or until cleared by surgeon Light activity and walking is encouraged to prevent blood clots from forming Recommend low fiber diet for the next 3-4 weeks and then can switch to regular diet. Your surgical israel will be removed in the surgical office Follow-up with Dr. Esposito in 2 weeks, please call office at [phone] to make an appointment Core Measure Problem Core Measures: None Additional Copies To Tania Esposito MD
== END 2017-07-29 10:10 | DRG 330 ==
LOC: C.2T 15:29 → OBSVTOIN 16:38 → INTOOBSV 16:38 → EDSTATUS 07-18 13:00 → OBSVTOIN 07-19 23:34 → ENRESERV 07-22 17:21 → C.MSN 07-22 17:58
PROVIDERS: ADMIT Family Medicine; ATTEND Hospitalist
PROC: 0DBK8ZX Excision of Ascending Colon, Via Natural or Artificial Opening Endoscopic, Diagnostic (ICD-10-PCS; 2017-07-18)
PROC: 0DBN8ZX Excision of Sigmoid Colon, Via Natural or Artificial Opening Endoscopic, Diagnostic (ICD-10-PCS; 2017-07-18)
PROC: 0DBH8ZX Excision of Cecum, Via Natural or Artificial Opening Endoscopic, Diagnostic (ICD-10-PCS; 2017-07-18)
PROC: 0DB98ZX Excision of Duodenum, Via Natural or Artificial Opening Endoscopic, Diagnostic (ICD-10-PCS; 2017-07-18 13:00)
PROC: 0D568ZZ Destruction of Stomach, Via Natural or Artificial Opening Endoscopic (ICD-10-PCS; 2017-07-18 13:00)
PROC: 0DB68ZX Excision of Stomach, Via Natural or Artificial Opening Endoscopic, Diagnostic (ICD-10-PCS; 2017-07-18 13:00)
PROC: 0DTF0ZZ Resection of Right Large Intestine, Open Approach (ICD-10-PCS; principal; 2017-07-20 09:30)
DX: C18.2 Malignant neoplasm of ascending colon (principal); I50.40 Unspecified combined systolic (congestive) and diastolic (congestive) heart failure; I13.0 Hypertensive heart and chronic kidney disease with heart failure and stage 1 through stage 4 chronic kidney disease, or unspecified chronic kidney disease; I48.0 Paroxysmal atrial fibrillation; E11.42 Type 2 diabetes mellitus with diabetic polyneuropathy; F10.20 Alcohol dependence, uncomplicated; Z79.4 Long term (current) use of insulin; I25.10 Atherosclerotic heart disease of native coronary artery without angina pectoris; Z79.01 Long term (current) use of anticoagulants; Z95.0 Presence of cardiac pacemaker; N18.9 Chronic kidney disease, unspecified; M19.90 Unspecified osteoarthritis, unspecified site; Z85.46 Personal history of malignant neoplasm of prostate; Z88.2 Allergy status to sulfonamides; D63.0 Anemia in neoplastic disease; E87.6 Hypokalemia; Z88.1 Allergy status to other antibiotic agents; K31.819 Angiodysplasia of stomach and duodenum without bleeding; D12.0 Benign neoplasm of cecum; D12.5 Benign neoplasm of sigmoid colon; K57.30 Diverticulosis of large intestine without perforation or abscess without bleeding

== ENCOUNTER 2017-09-17 10:41 | Emergency (ER) | payer BC, OTHER ==
[~2017-09-17] VITALS: Ht 185.4 cm; Wt 108.5 kg
[~2017-09-17 10:41] MED LIST changes: +CRFUDL PO; -DOXY1TAB6 PO; +MRLP17 PO; +MRLP17X PO; +POTA10CA28 PO
[2017-09-17 10:55] VITALS: TEMP 36.8; Ht 185.4 cm; Wt 108.5 kg
[2017-09-17] MEDS ORDERED: SODIUM CHLORIDE 0.9% 1000ML 1,000 ML IV STA (11:17)
[2017-09-17] MEDS ORDERED: ONDANSETRON INJ 2 MG/ML 2 ML VIAL IV STA (11:17)
[2017-09-17] MEDS ORDERED: POTA10CA28 PO (11:21)
[2017-09-17 11:45] LABS: BASO % 0.1 %; BASO ABS # 0.01 K/uL (0-0.2); HEMATOCRIT 43.9 % (42-52); IG# 0.06 K/uL (0.00-0.02); LYMPH % 11.3 %; LYMPH ABS # 0.97 K/uL (1.2-3.4); MEAN CELL VOLUME 84.3 fL (80-100); MEAN CORPUSCULAR HEMOGLOBIN 28.8 pg (25-34); MEAN CORPUSCULAR HGB CONC 34.2 g/dl (32-36); MONO % 9.9 %; MONO ABS # 0.85 K/uL (0.11-0.59); NEUT ABS # 6.72 K/uL (1.4-6.5); PLATELET COUNT 160 K/uL (130-400); RED CELL DISTRIBUTION WIDTH CV 19.3 % (11.5-14.5); RED CELL DISTRIBUTION WIDTH SD 59.1 fL (36.4-46.3); WHITE BLOOD COUNT 8.61 K/uL (4.8-10.8)
[2017-09-17 11:54] LABS: INR 1.6 (0.9-1.1); PTT PATIENT 34.8 SECONDS (21.0-31.0)
[2017-09-17 12:12] LABS: ALBUMIN 2.9 gm/dl (3.4-5.0); CALCIUM 7.8 mg/dl (8.5-10.1); CREATININE 1.1 mg/dl (0.60-1.40); POTASSIUM 3.4 mmol/L (3.5-5.1); TOTAL PROTEIN 6.2 gm/dl (6.4-8.2)
--- NOTE | 2017-09-17 12:46 | DIAGNOSTIC IMAGING REPORT ---
PA CHEST RADIOGRAPH AND LEFT LATERAL DECUBITUS AND SUPINE AP RADIOGRAPHS OF THE ABDOMEN CLINICAL HISTORY: Abdominal pain. COMPARISON STUDY: CT of the chest abdomen and pelvis July 18, 2017. FINDINGS: A dual lead left-sided pacemaker is unchanged in position. There is moderate cardiomegaly. There is no evidence for pulmonary edema. A trace left pleural effusion is noted. There is no evidence for free air. Bowel anastomoses and surgical clips within the right abdomen are noted. There are pelvic surgical clips. The bowel gas pattern is normal. IMPRESSION: 1. No free air or evidence of bowel obstruction. 2. Moderate cardiomegaly. No evidence for pulmonary edema. 3. Trace left pleural effusion. Electronically signed by: Dieudonne Roy M.D. 09/17/2017 12:45 PM Dictated Date/Time: 09/17/2017 12:43 PM
--- NOTE | 2017-09-17 12:50 | DIAGNOSTIC IMAGING REPORT ---
L-SPINE MIN 4 VIEWS ROUTINE CLINICAL HISTORY: Low back pain. COMPARISON: CT of the abdomen and pelvis July 18, 2017. FINDINGS: Alignment of the lumbar spine is anatomic. There has been possible slight interval loss of height of the superior endplate of L4 since exam of July 18, 2017. No additional compression fractures are present. There is mild multilevel degenerative disc disease and moderate multilevel facet arthrosis. IMPRESSION: 1. Possible mild L4 superior endplate compression deformity. 2. Mild multilevel degenerative disc disease and moderate multilevel facet arthrosis of the lumbar spine. Electronically signed by: Dieudonne Roy M.D. 09/17/2017 12:48 PM Dictated Date/Time: 09/17/2017 12:45 PM
[2017-09-17] MEDS ORDERED: SOD PHOSPHATE/SOD BIPHOSPHATE ENEMA 132 ML BTL PR STA (13:05)
[2017-09-17] MEDS ORDERED: ACETAMINOPHEN 500 MG TAB PO STA (13:05)
[2017-09-17] MEDS ORDERED: MoRPHine SULFATE 4 MG/ML 1 ML CARP\\VIAL IV STA (13:16)
--- NOTE | 2017-09-17 15:01 | EMERGENCY ROOM VISIT NOTE ---
History Report prepared by Nakulibmadhu: Isak Cosby Under the Supervision of: Dr. Jordan Correa D.O. First contact with patient: 11:00 Chief Complaint: BACK PAIN Stated Complaint: BACK PAIN History of Present Illness The patient is a 82 year old male who presents to the Emergency Room by EMS with complaints of constant lower back pain beginning shortly prior to arrival. The patient rates his pain as a 9/10 in severity. His pain began after having a bowel movement. He states that his pain began with standing up during a bowel movement. 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 He states that standing up and sitting down during his bowel movements often helps with his constipation. He notes that he gave himself a digital disimpaction to complete the bowel movement today. The patient also complains of weakness to his bilateral legs. Source of History: patient Onset: Shortly prior to arrival Position: back (lower) Symptom Intensity: 9/10 Timing: constant Associated Symptoms: + weakness (bilateral legs) Review of Systems See HPI for pertinent positives & negatives. A total of 10 systems reviewed and were otherwise negative. 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 Social History Smoking Status: Never Smoker Alcohol Use: heavy Drug Use: none Marital Status: single Occupation Status: retired Current/Historical Medications Scheduled Amiodarone Hcl (Cordarone), 200 MG PO QPM Aspirin (Aspirin 81), 81 MG PO QAM Clindamycin Phosphate (Topical (Clindamycin Phosphate), 1 APPLN TOP DAILY Docusate Sodium (Docusate Sodium), 2 CAP PO QAM Furosemide (Lasix), 20 MG PO DAILY Insulin Glargine (Lantus), 10 UNITS SC QAM Loratadine (Claritin), 10 MG PO DAILY Lorazepam (Ativan), 1-2 TABS PO HS Magnesium Oxide (Mag-Ox), 400 TAB PO QAM Metoprolol Succ (Toprol Xl) (Toprol-Xl), 25 MG PO QPM Mometasone Furoate (Nasal) (Mometasone Furoate), 2 SPRAY LUIS A DAILY Multiple Vitamins W/ Minerals (Ocuvite), 1 TAB PO QAM Multivitamin (Multivitamin), 1 TAB PO QAM Potassium Chloride (Micro-K Ext Rel), 10 MEQ PO DAILY Warfarin Sod (Jantoven), 0.5 TAB PO 5XWK Warfarin Sod (Jantoven), 1 TAB PO 2XWK Zolpidem Tartrate (Ambien), 5 MG PO HS Allergies Coded Allergies: Sildenafil (Verified Allergy, Unknown, Unknown, 09/17/17) per [employer] Streptomycin (Verified Allergy, Unknown, Unknown, 09/17/17) per [employer] Sulfites (Verified Allergy, Unknown, THROAT CONSTRICTION, 09/17/17) Uncoded Allergies: VASODILATORS (Allergy, Intermediate, red swelling, 02/01/11) Physical Exam Vital Signs Date Time Temp Pulse Resp B/P (MAP) Pulse Ox O2 Delivery O2 Flow Rate FiO2 09/17/17 13:43 66 18 186/93 95 Room Air 09/17/17 12:27 61 18 153/82 95 Room Air 09/17/17 10:55 36.8 71 18 156/84 96 Room Air Physical Exam CONSTITUTIONAL/VITAL SIGNS: Reviewed / noted above. GENERAL: Non-toxic in appearance. INTEGUMENTARY: Warm, dry, and [place]. HEAD: Normocephalic. EYES: without scleral icterus or trauma. ENT/OROPHARYNX: clear and moist. LYMPHADENOPATHY/NECK: Is supple without lymphadenopathy or meningismus. RESPIRATORY: Lungs clear and equal. CARDIOVASCULAR: Regular rate and rhythm. GI/ABDOMEN: Soft and nontender. No organomegaly or pulsatile mass. No rebound or guarding. Normal bowel sounds. EXTREMITIES: Warm and well perfused. BACK: No CVA tenderness. NEUROLOGICAL: Intact without focal deficits. PSYCHIATRIC: normal affect. MUSCULOSKELETAL: Normally developed with good muscle tone. Medical Decision & Procedures ER Provider Diagnostic Interpretation: Radiology results as stated below per my review and radiologist interpretation: PA CHEST RADIOGRAPH AND LEFT LATERAL DECUBITUS AND SUPINE AP RADIOGRAPHS OF THE ABDOMEN FINDINGS: A dual lead left-sided pacemaker is unchanged in position. There is moderate cardiomegaly. There is no evidence for pulmonary edema. A trace left pleural effusion is noted. There is no evidence for free air. Bowel anastomoses and surgical clips within the right abdomen are noted. There are pelvic surgical clips. The bowel gas pattern is normal. IMPRESSION: 1. No free air or evidence of bowel obstruction. 2. Moderate cardiomegaly. No evidence for pulmonary edema. 3. Trace left pleural effusion. Electronically signed by: Dieudonne Roy M.D. 09/17/2017 12:45 PM L-SPINE MIN 4 VIEWS ROUTINE FINDINGS: Alignment of the lumbar spine is anatomic. There has been possible slight interval loss of height of the superior endplate of L4 since exam of July 18, 2017. No additional compression fractures are present. There is mild multilevel degenerative disc disease and moderate multilevel facet arthrosis. IMPRESSION: 1. Possible mild L4 superior endplate compression deformity. 2. Mild multilevel degenerative disc disease and moderate multilevel facet arthrosis of the lumbar spine. Electronically signed by: Dieudonne Roy M.D. 09/17/2017 12:48 PM Laboratory Results 09/17/17 11:30 Red Blood Count 5.21, Mean Corpuscular Volume 84.3, Mean Corpuscular Hemoglobin 28.8, Mean Corpuscular Hemoglobin Concent 34.2, Mean Platelet Volume 9.0, Neutrophils (%) (Auto) 78.0, Lymphocytes (%) (Auto) 11.3, Monocytes (%) (Auto) 9.9, Eosinophils (%) (Auto) 0.0, Basophils (%) (Auto) 0.1, Neutrophils # (Auto) 6.72, Lymphocytes # (Auto) 0.97, Monocytes # (Auto) 0.85, Eosinophils # (Auto) 0.00, Basophils # (Auto) 0.01 09/17/17 11:30 Test 09/17/17 11:30 09/17/17 13:32 White Blood Count 8.61 K/uL (4.8-10.8) Red Blood Count 5.21 M/uL (4.7-6.1) Hemoglobin 15.0 g/dL (14.0-18.0) Hematocrit 43.9 % (42-52) Mean Corpuscular Volume 84.3 fL (80-100) Mean Corpuscular Hemoglobin 28.8 pg (25-34) Mean Corpuscular Hemoglobin Concent 34.2 g/dl (32-36) Platelet Count 160 K/uL (130-400) Mean Platelet Volume 9.0 fL (7.4-10.4) Neutrophils (%) (Auto) 78.0 % Lymphocytes (%) (Auto) 11.3 % Monocytes (%) (Auto) 9.9 % Eosinophils (%) (Auto) 0.0 % Basophils (%) (Auto) 0.1 % Neutrophils # (Auto) 6.72 K/uL (1.4-6.5) Lymphocytes # (Auto) 0.97 K/uL (1.2-3.4) Monocytes # (Auto) 0.85 K/uL (0.11-0.59) Eosinophils # (Auto) 0.00 K/uL (0-0.5) Basophils # (Auto) 0.01 K/uL (0-0.2) RDW Standard Deviation 59.1 fL (36.4-46.3) RDW Coefficient of Variation 19.3 % (11.5-14.5) Immature Granulocyte % (Auto) 0.7 % Immature Granulocyte # (Auto) 0.06 K/uL (0.00-0.02) Prothrombin Time 17.0 SECONDS (9.0-12.0) Prothromb Time International Ratio 1.6 (0.9-1.1) Activated Partial Thromboplast Time 34.8 SECONDS (21.0-31.0) Partial Thromboplastin Ratio 1.3 Anion Gap 8.0 mmol/L (3-11) Est Creatinine Clear Calc Drug Dose 66.9 ml/min Estimated GFR () 72.1 Estimated GFR (Non- 62.2 BUN/Creatinine Ratio 15.3 (10-20) Calcium Level 7.8 mg/dl (8.5-10.1) Total Bilirubin 0.8 mg/dl (0.2-1) Direct Bilirubin 0.2 mg/dl (0-0.2) Aspartate Amino Transf (AST/SGOT) 26 U/L (15-37) Alanine Aminotransferase (ALT/SGPT) 27 U/L (12-78) Alkaline Phosphatase 123 U/L (45-117) Total Protein 6.2 gm/dl (6.4-8.2) Albumin 2.9 gm/dl (3.4-5.0) Urine Color YELLOW Urine Appearance CLEAR (CLEAR) Urine pH 5.5 (4.5-7.5) Urine Specific [place] 1.018 (1.000-1.030) Urine Protein NEG (NEG) Urine Glucose (UA) 1+ (NEG) Urine Ketones TRACE (NEG) Urine Occult Blood NEG (NEG) Urine Nitrite NEG (NEG) Urine Bilirubin NEG (NEG) Urine Urobilinogen NEG (NEG) Urine Leukocyte Esterase NEG (NEG) Urine WBC (Auto) 0 /hpf (0-5) Urine RBC (Auto) 0-4 /hpf (0-4) Urine Hyaline Casts (Auto) 1-5 /lpf (0-5) Urine Epithelial Cells (Auto) 0-5 /lpf (0-5) Urine Bacteria (Auto) NEG (NEG) Laboratory results as stated above per my review. Medications Administered Medications (Trade) Dose Ordered Sig/Cholo Route Start Time Stop Time Status Last Admin Dose Admin Sodium Chloride 1,000 ml @ 250 mls/hr Q4H STAT IV 09/17/17 11:17 09/17/17 15:16 09/17/17 11:34 250 MLS/HR Ondansetron HCl (Zofran Inj) 4 mg NOW STAT IV 09/17/17 11:17 09/17/17 11:21 DC 09/17/17 11:17 4 MG Sodium Biphosphate/ Sodium Phosphate (Fleet Enema) 132 ml NOW STAT DE 09/17/17 13:05 09/17/17 13:07 DC 09/17/17 13:39 132 ML Acetaminophen (Tylenol Tab) 1,000 mg NOW STAT PO 09/17/17 13:05 09/17/17 13:07 DC 09/17/17 13:27 1,000 MG Morphine Sulfate (MoRPHine SULFATE INJ) 4 mg NOW STAT IV 09/17/17 13:16 09/17/17 13:17 DC 09/17/17 13:26 4 MG ED Course 1101: Previous medical records were reviewed. The patient was evaluated in room C9. A complete history and physical examination was performed. 1117: Ordered Zofran Inj 4 mg IV, Sodium Chloride 1000 ml @ 250 mls/hr IV. 1305: Ordered Tylenol Tab 1000 mg PO, Fleet Enema 132 mL DE. 1316: Ordered Morphine Sulfate 4 mg IV. 1445: On reevaluation, the patient is resting. I discussed the results and findings with the patient. He verbalized agreement of the treatment plan. The patient was discharged home. Medical Decision Differential considered includes cauda equina syndrome, conus medullaris, spinal cord compression syndrome, peripheral nerve compression, fractures or subluxations, intra-abdominal pathology such as abdominal aortic aneurysm or kidney stones, muscle strain, transverse myelitis, spinal cord injury. This is an 82-year-old male who presents to the ED with a chief complaint of low back pain. The patient states that he was feeling constipated this morning and was standing up and sitting down over the toilet to help him go to the bathroom. He also finally digitally impact disimpacted himself. The patient states during this episode, the patient developed some low back pain. He came in for evaluation of this. The patient reports a history of colon cancer with recent hemicolectomy on the right on 07/20/17. He also has a history of paroxysmal A. fib and diabetes. The patient CBC today is normal, INR is 1.6, complete metabolic panel was unremarkable, acute abdominal series did not reveal any obstructive changes. There was also an x-ray of the lumbar region done which revealed a mild L4 superior endplate compression fracture. Is uncertain if this is related to today's pain. The patient was treated with some IV morphine,, IV fluids, IV Zofran oral Tylenol and a fleets enema for sensation constipation. The Fleet Enema did not seem to do much for the patient. He was advised to take MiraLAX at home. He is felt to be stable for discharge. Of note, the patient is currently getting home physical therapy. Medication Reconcilliation Current Medication List: was personally reviewed by me Blood Pressure Screening Patient's blood pressure: Elevated blood pressure Blood pressure disposition: Elevated BP felt to be situational Impression Primary Impression: Back pain Scribe Attestation The scribe's documentation has been prepared under my direction and personally reviewed by me in its entirety. I confirm that the note above accurately reflects all work, treatment, procedures, and medical decision making performed by me. Departure Information Dispostion Home / Self-Care Referrals Sandeep Dhillon D.O. (PCP) Patient Instructions My [facility] Additional Instructions Use MiraLAX for constipation. Take your oxycodone that you have at home for severe pain. Call your doctor on Monday to get follow-up appointment. Continue physical therapy at home. Follow-up with your doctor for further care and evaluation in 1-2 days. Return to the emergency department for worsening or new symptoms or any concerns. You have been examined and treated today on an emergency basis only. This is not a substitute for, or an effort to provide, complete comprehensive medical care. It is impossible to recognize and treat all injuries or illnesses in a single emergency department visit. It is therefore important that you follow up closely with your doctor. Call as soon as possible for an appointment.
[2017-09-17 16:10] VITALS: BP 162/93; PULSE 62; O2SAT 95
== END 2017-09-17 16:24 | disposition home or self-care (01) ==
LOC: EDBD 10:41 → C.EDC 10:49
DX: M54.5 Low back pain (principal); I25.10 Atherosclerotic heart disease of native coronary artery without angina pectoris; F32.9 Major depressive disorder, single episode, unspecified; E11.42 Type 2 diabetes mellitus with diabetic polyneuropathy; E78.5 Hyperlipidemia, unspecified; I10 Essential (primary) hypertension; I48.0 Paroxysmal atrial fibrillation; Z79.82 Long term (current) use of aspirin; Z79.01 Long term (current) use of anticoagulants; Z79.4 Long term (current) use of insulin; Z79.899 Other long term (current) drug therapy; Z85.038 Personal history of other malignant neoplasm of large intestine; Z85.46 Personal history of malignant neoplasm of prostate

== ENCOUNTER 2018-10-22 12:34 | Observation (INO) ==
--- OUTSIDE RECORDS SUMMARY | 2018-10-22 14:58 | External Medical Summary | Continuity of Care Document ---
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) Alcoholism (303.90) (F10.20) Hypertension (401.9) (I10) Cardiac pacemaker (V45.01) (Z95.0) Coronary artery disease (414.00) (I25.10) Hyperlipidemia (272.4) (E78.5) Neoplasm of uncertain behavior of skin (238.2) (D48.5) Squamous cell carcinoma of skin (173.92) (C44.92) Actinic keratosis (702.0) (L57.0) History of SCC (squamous cell carcinoma) of skin (V10.83) (Z 85.828) Personal history of malignant melanoma of skin (V10.82) (Z85 .820) Rosacea (695.3) (L71.9) History of basal cell carcinoma (V10.83) (Z85.828) Gross hematuria (599.71) (R31.0) History of prostate cancer (V10.46) (Z85.46) Urinary retention (788.20) (R33.9) UTI (urinary tract infection) (599.0) (N39.0) Cystic kidney disease (753.10) (Q61.9) Allergies and Adverse Reactions Streptomycin Sulfate POWD (Allergy) Sulfites (Allergy) Viagra TABS (Allergy) Medications Loratadine 10 MG Oral Tablet; TAKE 1 TABLET DAILY. Start: 04-Mar-2011 Refills: 0 Magnesium Oxide 400 MG Oral Tablet; TAKE 1 TABLET DAILY. Start: 04-Mar-2011 Refills: 0 Thiamine HCl - 100 MG Oral Tablet; TAKE 1 TABLET DAILY. Start: 04-Mar-2011 Refills: 0 Ocuvite PreserVision TABS; TAKE 1 TABLET DAILY. Start: 04-Mar-2011 Refills: 0 LORazepam 1 MG Oral Tablet; TAKE 1 TO 2 TABLETS AT BEDTIME A S NEEDED. Start: 04-Mar-2011 Refills: 0 Coumadin TABS Refills: 0 Multi-Vitamin TABS; TAKE 1 TABLET DAILY. Refills: 0 Stool Softener TABS; TAKE 1 TABLET DAILY DIRECTED. Refills: 0 Amiodarone HCl - 200 MG Oral Tablet; TAKE 1 TABLET DAILY. Quantity: 90 Refills: 3 Aspirin 81 MG TABS; TAKE 1 TABLET DAILY. Refills: 5 Cyclobenzaprine HCl - 5 MG Oral Tablet Refills: 0 Furosemide 20 MG Oral Tablet Refills: 0 Gabapentin 300 MG Oral Capsule Refills: 0 HYDROcodone-Acetaminophen 5-325 MG Oral Tablet Refills: 0 Lantus 100 UNIT/ML Subcutaneous Solution Refills: 0 Lidoderm 5 % External Patch Refills: 0 Macrobid 100 MG Oral Capsule Refills: 0 Metoprolol Succinate ER 25 MG Oral Tablet Extended Release 2 4 Hour Refills: 0 Nasonex 50 MCG/ACT Nasal Suspension Refills: 0 Preparation H 5-14.4 % Rectal Cream Refills: 0 Remeron 15 MG Oral Tablet Refills: 0 Senna 8.6 MG Oral Capsule Refills: 0 Warfarin Sodium 1 MG Oral Tablet Refills: 0 Acetaminophen 325 MG Oral Tablet Refills: 0 Trimethoprim 100 MG Oral Tablet; TAKE 1 TABLET AT BEDTIME. Valeria Calderon Start: 19-Mar-2018 Quantity: 30 Refills: 2 Procedures History of Prostatectomy Perineal Radical Status: Completed History of Complete Colonoscopy Status: Completed History of Adenoidectomy Status: Complet ed History of Tonsillectomy Status: Complet ed History of Permanent Pacemaker Type Dual-Chamber Status: Completed Immunizations Immunizations not documented Family History Mother Family history of Acute Myocardial Infarction (V17.3) Status : Active Father Family history of Aortic Stenosis Status: Active Family history of Heart Disease (V17.49) Status: Active Plan of Treatment Planned Encounters Appointment; Urology, Nursing Station Start: 28-Dec-2018 13:0 0 Request Planned Observations Planned Goals not documented Results No Known Results Results not documented Encounters Appointment; Urolog, [facility] [place] 28-Sep-2018 13:00 Encounter Diagnosis: Problem not documented Appointment; [facility] [place], [facility] [place] 24-Aug-2018 13:00 Encounter Diagnosis: Problem not documented Appointment; [facility] [place] [place], [facility] [place] 27-Jul-2018 13:00 Encounter Diagnosis: Problem not documented Appointment; [facility] 22-Jun-2018 13:00 Encounter Diagnosis: Problem not documented Appointment; [facility] 25-May-2018 13:30 Encounter Diagnosis: Problem not documented Appointment; [facility] 18-Apr-2018 11:00 Encounter Diagnosis: Problem not documented Appointment; Srinivasan Valadez M.D. 19-Mar-2018 11:10 Encounter Diagnosis: Problem not documented Appointment; [facility] [place] [place], [facility] 19-Mar-2018 11:00 Encounter Diagnosis: Problem not documented Appointment; Srinivasan Valadez M.D. 08-Mar-2018 11:30 Encounter Diagnosis: Problem not documented Appointment; [facility] 08-Mar-2018 10:30 Encounter Diagnosis: Problem not documented Appointment; Srinivasan Valadez M.D. 31-Jan-2018 13:30 Encounter Diagnosis: Problem not documented Appointment; [facility] 19-Jan-2018 9:30 Encounter Diagnosis: Problem not documented Appointment; [facility] 20-Oct-2017 9:00 Encounter Diagnosis: Problem not documented Appointment; Srinivasan Valadez M.D. 20-Oct-2017 9:00 Encounter Diagnosis: Problem not documented Appointment; [facility] 17-Oct-2017 14:10 Encounter Diagnosis: Problem not documented Appointment; Srinivasan Valadez M.D. 17-Oct-2017 13:55 Encounter Diagnosis: Problem not documented Appointment; [facility] 28-Dec-2018 13:00 Encounter Diagnosis: Problem not documented
[2018-10-22] MEDS ORDERED: HYDROCODONE/ACETAMOPHEN 5/325MG TAB PO PRN (15:37)
[2018-10-22] MEDS ORDERED: CYCLOBENZAPRINE HCL 5 MG TAB PO PRN (15:37)
[2018-10-22] MEDS ORDERED: ZOLPIDEM TARTRATE 5 MG TAB PO PRN (15:41)
[2018-10-22 16:17] LABS: Basophils # (auto) 0.02 K/uL (0-0.2); Basophils % (auto) 0.2 %; Eosinophils # (auto) 0.13 K/uL (0-0.5); Eosinophils % (auto) 1.5 %; Hematocrit (blood only) 42.1 % (42-52); Hemoglobin 14.3 g/dL (14.0-18.0); Immature Granulocytes # (auto) 0.06 K/uL (0.00-0.02); Immature Granulocytes % (auto) 0.7 %; Lymphocytes # (auto) 1.84 K/uL (1.2-3.4); Mean Corpuscular Volume 86.4 fL (80-100); Mean Platelet Volume 9.2 fL (7.4-10.4); Monocytes # (auto) 0.87 K/uL (0.11-0.59); Monocytes % (auto) 9.9 %; Neutrophils # (auto) 5.83 K/uL (1.4-6.5); Neutrophils % (auto) 66.7 %; Platelet Count 215 K/uL (130-400); RDW Coefficient of Variation 14.9 % (11.5-14.5); RDW Standard Deviation 47.5 fL (36.4-46.3); Red Blood Count 4.87 M/uL (4.7-6.1); White Blood Count 8.75 K/uL (4.8-10.8)
[2018-10-22] MEDS ORDERED: ACETAMINOPHEN 325 MG TAB PO PRN (16:34)
[2018-10-22 16:36] LABS: INR 1.3 (0.9-1.1); Prothrombin Time 12.8 Seconds (9.0-12.0)
[2018-10-22 16:50] LABS: Albumin Level 3.3 gm/dl (3.4-5.0); BUN Creatinine Ratio 18.1 (10-20); Calcium 8.4 mg/dl (8.5-10.1); Creatinine Clr Calc Pharmacy 51.8 ml/min; Est GFR (African American) 63.2; Est GFR (Non-African American) 54.5; Magnesium 2.2 mg/dl (1.8-2.4); Potassium 4.1 mmol/L (3.5-5.1)
[2018-10-22 16:53] LABS: Albumin Globulin Ratio 0.9 (0.9-2); Bilirubin,Total 0.5 mg/dl (0.2-1); Globulin 3.5 gm/dl (2.5-4.0); Total Protein 6.8 gm/dl (6.4-8.2)
--- NOTE | 2018-10-22 16:55 | Communication Note ---
Date of Service: October 22, 2018 Instead of full consult, the following note explains the GI plan for this pt. Needs Colonoscopy for rectal bleeding and hx of colon cancer but is unable to prep at home as he needs assistance to ambulate to the toilet. Plan: prep tonight. Clear liquids po tonight. NPO after midnight. Colonoscopy tomorrow by Dr. Walker. I have discussed the patient's management with Jae. Please refer to the nurse practitioner's note for the documented findings and plan of care. Hx of Colon cancer resected a year ago, now with rectal bleeding, needs colo noscopy. Admitted in view of his cardiopulmonary disease and need for observation and assistance during bowel prep.
[2018-10-22] MEDS ORDERED: BISACODYL 5 MG TABEC PO ONE (17:00)
[2018-10-22] MEDS ORDERED: LAVAGE SOLUTION 4000ML PO SCH (17:30)
--- NOTE | 2018-10-22 17:33 | History & Physical Report ---
Date of Service October 22, 2018 Assessment & Plan (1) Rectal bleeding: Recent rectal bleeding. History of adenocarcinoma of colon. Colonoscopy planned for tomorrow. (2) Coronary artery disease: No recent anginal symptoms. Hold aspirin for colonoscopy. Continue metoprolol. (3) Chronic systolic CHF (congestive heart failure): Compensated. Hold furosemide tomorrow due to NPO status for colonoscopy. (4) Atrial fibrillation: Continue metoprolol. Resume warfarin after colonscopy. (5) Pacemaker: S/P pacemaker placement for bradycardia. (6) Hypertension: Continue metoprolol. 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 Insulin coverage as needed. (8) DVT prophylaxis: Anticoagulants held for colonscopy. SCD's. Ambulate. (9) Discharge planning issues: Anticipated discharge to home. Internal Medicine follow-up with Dr. Dhillon. History of Present Illness Chief Complaint: rectal bleeding Primary Care Provider: Sandeep Dhillon, 83 YO male followed by Dr. Dhillon. History of chronic AF on warfarin, ischemic heart disease, colon cancer, and other problems. Recently experiencing hematochezia and colonoscopy was recommended. Unable to do colonoscopy prep at home because of back pain and decreased mobility. Bridging anticoagulation recommended due to AF with high [id number] score of 6. Last warfarin dose was 10/17. Enoxaparin was started 10/20 and last dose was this morning. Allergies Allergy/AdvReac Type Severity Reaction Status Date / Time sildenafil Allergy Unknown Unknown Verified 10/22/18 13:45 streptomycin Allergy Unknown Unknown Verified 10/22/18 13:45 sulfite Allergy Unknown THROAT Verified 10/22/18 13:45 SWELLING VASODILATORS Allergy Intermediate red Uncoded 10/22/18 13:45 swelling Home Medications Home Medications Medication Instructions Recorded Confirmed Type acetaminophen [Tylenol] 650 mg PO Q4H PRN 01/02/18 10/22/18 History amiodarone 200 mg PO HS 01/02/18 10/22/18 History aspirin [Aspir-81] 81 mg PO QAM 01/02/18 10/22/18 History insulin glargine 8 units SUBCUT QAM 01/02/18 10/22/18 History loratadine 10 mg PO QAM 01/02/18 10/22/18 History lorazepam [Ativan] 1 mg PO QPM 01/02/18 10/22/18 History magnesium oxide 400 mg PO QAM 01/02/18 10/22/18 History metoprolol succinate 25 mg PO QAM 01/02/18 10/22/18 History mometasone 2 spray INTRANASAL QAM 01/02/18 10/22/18 History warfarin 2 mg PO QPM 01/02/18 10/22/18 History zolpidem [Ambien] 5 mg PO HS PRN 01/02/18 10/22/18 History docusate sodium [Colace] 100 mg PO BID #60 cap 01/12/18 10/22/18 Rx hydrocodone-acetaminophen [[place]] 1 tab PO Q4H PRN 7 Days #10 tab 01/12/18 10/22/18 Rx sennosides [Senokot] 17.2 mg PO DAILY PRN #10 tab 01/12/18 10/22/18 Rx calcium carbonate-vitamin D3 1 tab PO BID 01/22/18 10/22/18 History [Calcium 600 + D(3)] cyclobenzaprine 5 mg PO Q12H PRN 01/22/18 10/22/18 History gabapentin 300 mg PO TID 03/10/18 10/22/18 History mirtazapine 15 mg PO HS 03/10/18 10/22/18 History enoxaparin [Lovenox] 80 mg SUBCUT UD 10/22/18 10/22/18 History furosemide 10 mg PO QAM 10/22/18 10/22/18 History vit C-E-zinc iyk-skvahc-amoauw 1 tab PO QAM 10/22/18 10/22/18 History [facility] Past Med/Surg History Medical History History of prostate cancer (Chronic) History of melanoma (Chronic) Diabetic neuropathy (Chronic) History of colon cancer (Chronic) Chronic systolic CHF (congestive heart failure) (Chronic) Diabetes mellitus type 2 with complications (Chronic) Hypertension (Chronic) Pacemaker (Chronic) Atrial fibrillation (Chronic) Coronary artery disease (Chronic) Acute hyponatremia Atrial fibrillation CAD (coronary artery disease) Colon adenocarcinoma Compression fracture of L4 lumbar vertebra Diabetes mellitus type 2 in nonobese Diabetic neuropathy Dyslipidemia Generalized OA HTN (hypertension) History of prostate cancer Lumbar spinal stenosis Pacemaker Systolic CHF Surgical History History of colonoscopy MULTIPLE H/O prostatectomy History of right hemicolectomy History of tonsillectomy and adenoidectomy Family History Mother Coronary heart disease Father Heart disease Social History Preferred Language: Telugu Communication Ability: Effective Air Vice Marshal Required: Yes and No Beliefs That Will Affect Care: None Current Living Situation: Alone current occupational status: retired Other Information That Helps Us Care for You: No Feels Safe at Home: Yes Safety Concerns: Feels Safe At This Time Smoking Status: Never smoker Do You Dip or Chew Tobacco: No Second Hand Exposure: No Hx Alcohol Use: Yes (none recently) Alcohol type: hard liquor Hx Substance Use: No Review of Systems Constitutional: no fever and no weight loss Eyes: no diplopia and no worsening vision Ear, Nose, Mouth, Throat: + hearing loss (left ear); no nasal congestion, no sinus pain/pressure and no sore throat Respiratory: no cough and no dyspnea Cardiovascular: no chest pain, no palpitations and no edema Gastrointestinal: + blood in stools; no nausea, no vomiting, no constipation, no diarrhea/loose stools and no melena Genitourinary: + problem reported (chronic urinary retention with Beramn cath); no hematuria Musculoskeletal: + back pain and + joint pain; no myalgia Integumentary: no rash and no new lesions Endocrine: no polydipsia and no polyuria blood sugars well-controlled Hematologic / Lymphatic: + easy bleeding and + easy bruising Physical Exam Constitutional: WD/WN, vitals as above no acute distress Eyes: PERRL, conjunctivae normal, anicteric sclerae ENMT: external ear and nose normal, oropharynx normal Neck: trachea midline, no thyromegaly Respiratory: normal respiratory effort, lungs clear to auscultation no respiratory distress Auscultation: lungs clear to auscultation bilaterally Cardiovascular: Rate/Rhythm: regular rate and regular rhythm Heart Sounds: no gallop, no murmur and no cardiac rub Vessels: no JVD Extremities: no calf tenderness and no edema Gastrointestinal (Abdomen): normal bowel sounds, soft, nontender, no hepatosplenomegaly Musculoskeletal: Head/Neck/Chest: neck supple Extremities: strength 5/5 throughout; no cyanosis and no clubbing Skin: no rashes, warm and dry Neurologic: PERRL, EOMI no facial palsy no dysarthria or aphasia patellar DTR's 2/2 bilat Psychiatric: Orientation: alert and oriented x 3 Affect: euthymic affect Genitourinary: + bladder abnormal to inspection (Berman cath) Lymphatic: no cervical lymphadenopathy Results & Data Vital Signs (Past 12 Hours) Vital Signs Temp Pulse Resp BP Pulse Ox 10/22/18 15:32 37.1 C 67 16 126/79 97 Laboratory Results Laboratory Results - last 24 hr 10/22/18 10/22/18 10/22/18 16:05 16:05 16:05 WBC 8.75 RBC 4.87 Hgb 14.3 Hct 42.1 MCV 86.4 MCH 29.4 MCHC 34.0 RDW Std Deviation 47.5 H RDW Coeff of Gabriela 14.9 H Plt Count 215 MPV 9.2 Immature Gran % (Auto) 0.7 Neut % (Auto) 66.7 Lymph % (Auto) 21.0 Victoria % (Auto) 9.9 Eos % (Auto) 1.5 Baso % (Auto) 0.2 Immature Gran # (Auto) 0.06 H Neut # (Auto) 5.83 Lymph # (Auto) 1.84 Victoria # (Auto) 0.87 H Eos # (Auto) 0.13 Baso # (Auto) 0.02 PT 12.8 H INR 1.3 H Sodium 137 Potassium 4.1 Chloride 103 Carbon Dioxide 28 Anion Gap 6.0 BUN 22 H Creatinine 1.22 Est Cr Clr Drug Dosing 51.8 Est GFR ( Amer) 63.2 Est GFR (Non-Af Amer) 54.5 BUN/Creatinine Ratio 18.1 Glucose 88 POC Glucose Calcium 8.4 L Magnesium 2.2 Total Bilirubin 0.5 AST 21 ALT 26 Alkaline Phosphatase 129 H Total Protein 6.8 Albumin 3.3 L Globulin 3.5 Albumin/Globulin Ratio 0.9 10/22/18 17:22 WBC RBC Hgb Hct MCV MCH MCHC RDW Std Deviation RDW Coeff of Gabriela Plt Count MPV Immature Gran % (Auto) Neut % (Auto) Lymph % (Auto) Victoria % (Auto) Eos % (Auto) Baso % (Auto) Immature Gran # (Auto) Neut # (Auto) Lymph # (Auto) Victoria # (Auto) Eos # (Auto) Baso # (Auto) PT INR Sodium Potassium Chloride Carbon Dioxide Anion Gap BUN Creatinine Est Cr Clr Drug Dosing Est GFR ( Amer) Est GFR (Non-Af Amer) BUN/Creatinine Ratio Glucose POC Glucose 81 Calcium Magnesium Total Bilirubin AST ALT Alkaline Phosphatase Total Protein Albumin Globulin Albumin/Globulin Ratio ECG Additional Comments: EKG performed on 03/10/2018 demonstrated atrial sensed ventricular paced rhythm at 90/minute. Code Status & VTE Plan Code Status Advanced directives discussed with patient. He has a living will. He would like resuscitation attempted in the event of a cardiopulmonary arrest if there is a reasonable chance of a meaningful recovery; however, he does not want extraordinary measures initiated or continued if prognosis is very poor. His sister is D[employer]. VTE Prophylaxis Plan VTE Prophylaxis will be ordered: Yes
[2018-10-22] MEDS ORDERED: INSULIN ASPART 100 UNITS/ML 3 ML PEN SC SCH (21:00)
[2018-10-22] MEDS ORDERED: ZOLPIDEM TARTRATE 5 MG TAB PO SCH (21:00)
[2018-10-22] MEDS ORDERED: AMIODARONE 200 MG TAB PO SCH (21:00)
[2018-10-22] MEDS ORDERED: LORazepam 1 MG TAB PO SCH (21:00)
[2018-10-22] MEDS ORDERED: MIRTAZAPINE TAB 15 MG TAB PO SCH (21:00)
[2018-10-22] MEDS: GABAPENTIN 300 MG CAP PO SCH (21:14)
[2018-10-22] MEDS ORDERED: Nursing to Pharmacy Communication ONE (23:12)
[2018-10-23] MEDS: INSULIN ASPART 100 UNITS/ML 3 ML PEN SC SCH ×2 (05:34→13:16)
--- NOTE | 2018-10-23 08:08 | History & Physical Report ---
Date of Service October 23, 2018 Assessment & Plan (1) Encounter for pre-operative examination: Stable for colonoscopy (2) Rectal bleeding: History of Present Illness Primary Care Provider: Sandeep Dhillon, DO Colonoscopy for rectal bleeding and Hx of colon cancer Allergies Allergy/AdvReac Type Severity Reaction Status Date / Time sildenafil Allergy Unknown Unknown Verified 10/22/18 13:45 streptomycin Allergy Unknown Unknown Verified 10/22/18 13:45 sulfite Allergy Unknown THROAT Verified 10/22/18 13:45 SWELLING VASODILATORS Allergy Intermediate red Uncoded 10/22/18 13:45 swelling Home Medications Home Medications Medication Instructions Recorded Confirmed Type acetaminophen [Tylenol] 650 mg PO Q4H PRN 01/02/18 10/22/18 History amiodarone 200 mg PO HS 01/02/18 10/22/18 History aspirin [Aspir-81] 81 mg PO QAM 01/02/18 10/22/18 History insulin glargine 8 units SUBCUT QAM 01/02/18 10/22/18 History loratadine 10 mg PO QAM 01/02/18 10/22/18 History lorazepam [Ativan] 1 mg PO QPM 01/02/18 10/22/18 History magnesium oxide 400 mg PO QAM 01/02/18 10/22/18 History metoprolol succinate 25 mg PO QAM 01/02/18 10/22/18 History mometasone 2 spray INTRANASAL QAM 01/02/18 10/22/18 History warfarin 2 mg PO QPM 01/02/18 10/22/18 History zolpidem [Ambien] 5 mg PO HS PRN 01/02/18 10/22/18 History docusate sodium [Colace] 100 mg PO BID #60 cap 01/12/18 10/22/18 Rx hydrocodone-acetaminophen [[place]] 1 tab PO Q4H PRN 7 Days #10 tab 01/12/18 10/22/18 Rx sennosides [Senokot] 17.2 mg PO DAILY PRN #10 tab 01/12/18 10/22/18 Rx calcium carbonate-vitamin D3 1 tab PO BID 01/22/18 10/22/18 History [Calcium 600 + D(3)] cyclobenzaprine 5 mg PO Q12H PRN 01/22/18 10/22/18 History gabapentin 300 mg PO TID 03/10/18 10/22/18 History mirtazapine 15 mg PO HS 03/10/18 10/22/18 History enoxaparin [Lovenox] 80 mg SUBCUT UD 10/22/18 10/22/18 History furosemide 10 mg PO QAM 10/22/18 10/22/18 History vit C-E-zinc mxj-eyhbcp-gvowiw 1 tab PO QAM 10/22/18 10/22/18 History [[facility]] Past Med/Surg History Medical History History of prostate cancer (Chronic) History of melanoma (Chronic) Diabetic neuropathy (Chronic) History of colon cancer (Chronic) Chronic systolic CHF (congestive heart failure) (Chronic) Diabetes mellitus type 2 with complications (Chronic) Hypertension (Chronic) Pacemaker (Chronic) Atrial fibrillation (Chronic) Coronary artery disease (Chronic) Acute hyponatremia Atrial fibrillation CAD (coronary artery disease) Colon adenocarcinoma Compression fracture of L4 lumbar vertebra Diabetes mellitus type 2 in nonobese Diabetic neuropathy Dyslipidemia Generalized OA HTN (hypertension) History of prostate cancer Lumbar spinal stenosis Pacemaker Systolic CHF Surgical History History of colonoscopy MULTIPLE H/O prostatectomy History of right hemicolectomy History of tonsillectomy and adenoidectomy Family History Mother Coronary heart disease Father Heart disease Social History Preferred Language: [place] Islander Communication Ability: Effective Cuff Presser Required: Yes and No Beliefs That Will Affect Care: None Current Living Situation: Alone current occupational status: retired Other Information That Helps Us Care for You: No Feels Safe at Home: Yes Safety Concerns: Feels Safe At This Time Smoking Status: Never smoker Do You Dip or Chew Tobacco: No Second Hand Exposure: No Hx Alcohol Use: Yes (none recently) Alcohol type: hard liquor Hx Substance Use: No Review of Systems All systems reviewed & are unremarkable except as noted in HPI & below Physical Exam Constitutional: comfortable; no acute distress Respiratory: normal respiratory effort, lungs clear to auscultation Cardiovascular: RRR, no murmur, no edema Gastrointestinal (Abdomen): normal bowel sounds, soft, nontender, no hepatosplenomegaly Results & Data Vital Signs (Past 12 Hours) Vital Signs Temp Pulse Resp BP Pulse Ox 10/23/18 07:10 36.4 C L 62 18 138/65 95 10/22/18 23:05 36.3 C L 57 L 16 131/73 98 Code Status & VTE Plan VTE Prophylaxis Plan VTE Prophylaxis will be ordered: Yes
--- NOTE | 2018-10-23 08:24 | Anesthesiology Consultation ---
Date of Service October 23, 2018 Assessment & Plan (1) Encounter for pre-operative examination: Chart Review Chart Review: Acceptable Risk for Surgery and Patient NOT seen in Pre Admission Testing Consults Requested none History Surgery Operation Date: 10/23/18 08:30 Proposed Procedures p Colonoscopy Dr Walker - Sean Walker MD Height/Weight Height: 6 ft 1 in Weight: 90.718 kg Allergies Allergy/AdvReac Type Severity Reaction Status Date / Time sildenafil Allergy Unknown Unknown Verified 10/22/18 13:45 streptomycin Allergy Unknown Unknown Verified 10/22/18 13:45 sulfite Allergy Unknown THROAT Verified 10/22/18 13:45 SWELLING VASODILATORS Allergy Intermediate red Uncoded 10/22/18 13:45 swelling Medications Home Medications Medication Instructions Recorded Confirmed Last Taken acetaminophen [Tylenol] 650 mg PO Q4H PRN 01/02/18 10/22/18 Unknown amiodarone 200 mg PO HS 01/02/18 10/22/18 03/09/18 aspirin [Aspir-81] 81 mg PO QAM 01/02/18 10/22/18 03/10/18 insulin glargine 8 units SUBCUT QAM 01/02/18 10/22/18 01/21/18 loratadine 10 mg PO QAM 01/02/18 10/22/18 03/10/18 lorazepam [Ativan] 1 mg PO QPM 01/02/18 10/22/18 03/09/18 magnesium oxide 400 mg PO QAM 01/02/18 10/22/18 01/21/18 metoprolol succinate 25 mg PO QAM 01/02/18 10/22/18 01/21/18 mometasone 2 spray INTRANASAL QAM 01/02/18 10/22/18 01/21/18 warfarin 2 mg PO QPM 01/02/18 10/22/18 03/08/18 zolpidem [Ambien] 5 mg PO HS PRN 01/02/18 10/22/18 03/09/18 docusate sodium [Colace] 100 mg PO BID #60 cap 01/12/18 10/22/18 01/21/18 hydrocodone-acetaminophen [[place]] 1 tab PO Q4H PRN 7 Days #10 tab 09/21/18 07/01/19 09/30/18 sennosides [Senokot] 17.2 mg PO DAILY PRN #10 tab 01/12/18 10/22/18 01/21/18 calcium carbonate-vitamin D3 1 tab PO BID 01/22/18 10/22/18 01/21/18 [Calcium 600 + D(3)] cyclobenzaprine 5 mg PO Q12H PRN 01/22/18 10/22/18 Unknown gabapentin 300 mg PO TID 03/10/18 10/22/18 03/09/18 AFTERNOON DOSE mirtazapine 15 mg PO HS 03/10/18 10/22/18 03/09/18 enoxaparin [Lovenox] 80 mg SUBCUT UD 10/22/18 10/22/18 Unknown furosemide 10 mg PO QAM 10/22/18 10/22/18 Unknown vit C-E-zinc rhf-glusst-nrlove 1 tab PO QAM 10/22/18 10/22/18 Unknown [[facility]] Active Medications Generic Name Dose Route Start Last Admin Trade Name Freq PRN Reason Stop Dose Admin Hydrocodone Bitart/Acetaminophen 1 tab 10/22/18 15:37 10/22/18 21:15 [place] 5/325 PO 11/05/18 15:36 1 tab Q4H PRN Administration Pain Amiodarone HCl 200 mg 10/22/18 21:00 10/22/18 21:14 Cordarone PO 11/21/18 20:59 200 mg HS ABIODUN Administration Gabapentin 300 mg 10/22/18 21:00 10/22/18 21:14 Neurontin PO 11/21/18 20:59 300 mg TID ABIODUN Administration Insulin Aspart 0 units 10/23/18 06:00 10/23/18 05:34 Novolog Flexpen SC 11/22/18 05:59 Not Given Q6 ABIODUN Lorazepam 1 mg 10/22/18 21:00 10/22/18 21:13 Ativan PO 11/21/18 20:59 1 mg QPM ABIODUN Administration Mirtazapine 15 mg 10/22/18 21:00 10/22/18 21:14 Remeron PO 11/21/18 20:59 15 mg HS ABIODUN Administration Zolpidem Tartrate 5 mg 10/22/18 15:41 10/22/18 23:37 Ambien PO 11/21/18 20:59 5 mg HS PRN Administration Insomnia NPO Date Last Intake of Fluids: 10/23/18 Time Last Intake of Fluids: 22:30 Date Last Intake of Solids: 10/21/18 Past Medical History Medical History History of prostate cancer (Chronic) History of melanoma (Chronic) Diabetic neuropathy (Chronic) History of colon cancer (Chronic) Chronic systolic CHF (congestive heart failure) (Chronic) Diabetes mellitus type 2 with complications (Chronic) Hypertension (Chronic) Pacemaker (Chronic) Atrial fibrillation (Chronic) Coronary artery disease (Chronic) Acute hyponatremia Atrial fibrillation CAD (coronary artery disease) Colon adenocarcinoma Compression fracture of L4 lumbar vertebra Diabetes mellitus type 2 in nonobese Diabetic neuropathy Dyslipidemia Generalized OA HTN (hypertension) History of prostate cancer Lumbar spinal stenosis Pacemaker Systolic CHF Past Family History Family History Mother Coronary heart disease Father Heart disease Past Surgical History Surgical History History of colonoscopy MULTIPLE H/O prostatectomy History of right hemicolectomy History of tonsillectomy and adenoidectomy Social History Smoking Status: Never smoker Do You Dip or Chew Tobacco: No Hx Alcohol Use: Yes (none recently) Alcohol type: hard liquor alcohol intake frequency: 3 or more drinks per day Hx Substance Use: No Physical Exam Vital Signs Last Vital Signs Temp 36.6 C 10/23/18 08:07 Pulse 63 10/23/18 08:07 Resp 16 10/23/18 08:07 BP 150/70 H 10/23/18 08:07 Pulse Ox 100 10/23/18 08:07 Testing Laboratory Results 10/22/18 16:05 10/22/18 16:05 PT 12.8 Seconds (9.0-12.0) H 10/22/18 16:05 INR 1.3 (0.9-1.1) H 10/22/18 16:05 10/23/18 10/22/18 05:32 20:45 POC Glucose 78 97
[2018-10-23] MEDS ORDERED: ePHEDrine sulfate 50 MG/ML AMP IV PRN (08:27)
[2018-10-23] MEDS ORDERED: ATROPINE SULFATE 0.1 MG/ML 10ML SYR IV PRN (08:27)
[2018-10-23] MEDS ORDERED: FLUTICASONE PROPIONATE NA SPR 16 GM BTL NAE SCH (09:00)
[2018-10-23] MEDS ORDERED: LORATADINE 10 MG TAB PO SCH (09:00)
[2018-10-23] MEDS ORDERED: METOPROLOL SUCC 25MG EXT REL TAB PO SCH (09:00)
--- NOTE | 2018-10-23 09:21 | GI REPORT ---
Patient Name: Sujit Thayer Procedure Date: 10/23/2018 8:40 AM Date of : 1935 Admit Type: Inpatient Age: 83 Gender: Male Attending MD: Sean Walker MD Procedure: Colonoscopy Providers: Sean Walker MD Referring MD: Sandeep Hodge Indications: Rectal bleeding, Personal history of malignant neoplasm of the colon Medicines: Monitored Anesthesia Care Complications: No immediate complications. Estimated Blood Loss: Estimated blood loss: none. Procedure: Pre-Anesthesia Assessment: - Prior to the procedure, a History and Physical was performed, and patient medications and allergies were reviewed. The patient is competent. The risks and benefits of the procedure and the sedation options and risks were discussed with the patient. All questions were answered and informed consent was obtained. Patient identification and proposed procedure were verified by the physician and the nurse in the procedure room. Mental Status Examination: alert and oriented. Airway Examination: normal oropharyngeal airway and neck mobility. Respiratory Examination: clear to auscultation. CV Examination: normal. ASA Grade Assessment: III - A patient with severe systemic disease. After reviewing the risks and benefits, the patient was deemed in satisfactory condition to undergo the procedure. The anesthesia plan was to use monitored anesthesia care (MAC). Immediately prior to administration of medications, the patient was re-assessed for adequacy to receive sedatives. The heart rate, respiratory rate, oxygen saturations, blood pressure, adequacy of pulmonary ventilation, and response to care were monitored throughout the procedure. The physical status of the patient was re-assessed after the procedure. After I obtained informed consent, the scope was passed under direct vision. Throughout the procedure, the patient's blood pressure, pulse, and oxygen saturations were monitored continuously. The Scope was introduced through the anus and advanced to the terminal ileum. The colonoscopy was performed without difficulty. The patient tolerated the procedure well. The quality of the bowel preparation was fair. The terminal ileum and the rectum were photographed. Findings: The perianal and digital rectal examinations were normal. The terminal ileum appeared normal. There was evidence of a prior end-to-side ileo-colonic anastomosis in the ascending colon. This was patent and was characterized by healthy appearing mucosa. The anastomosis was traversed. Three sessile polyps were found in the transverse colon. The polyps were 6 mm in size. These polyps were removed with a cold snare. Resection and retrieval were complete. Verification of patient identification for the specimen was done by the physician and nurse using the patient's name and date. Multiple small and large-mouthed diverticula were found in the sigmoid colon. Non-bleeding internal hemorrhoids were found during retroflexion. The hemorrhoids were small. Impression: - Preparation of the colon was fair. - The examined portion of the ileum was normal. - Patent end-to-side ileo-colonic anastomosis, characterized by healthy appearing mucosa. - Three 6 mm polyps in the transverse colon, removed with a cold snare. Resected and retrieved. - Diverticulosis in the sigmoid colon. - Non-bleeding internal hemorrhoids. Recommendation: - Return patient to [facility]. - Resume regular diet. - Repeat colonoscopy in 3 years for surveillance. - Return to referring physician. Sean Walker MD 10/23/2018 9:20:29 AM This report has been signed electronically. Note Initiated On: 10/23/2018 8:40 AM Number of Addenda: 0 I attest to the content of the Intraoperative Record and orders documented therein, exceptions below {[id number]}
[2018-10-23] MEDS: GABAPENTIN 300 MG CAP PO SCH (10:02)
--- NOTE | 2018-10-23 10:38 | Hospitalist Progress Note ---
Date of Service October 23, 2018 Assessment & Plan (1) Rectal bleeding: Recent rectal bleeding. no further episode since admission H&H stable ~14 History of adenocarcinoma of colon. s/p Colonoscopy today Colonoscopy 10/23/2018: -The perianal and digital rectal examinations were normal. -Terminal ileum appeared normal -There was evidence of a prior end-to-end ileocolic anastomosis in the ascending colon. This was patent and was characterized by healthy appearing mucosa. The anastomosis was traversed. 3 sessile polyps were found in the transverse colon. The polyps were 6 mm in size. These polyps were removed with a cold snare. Multiple small and large mouth diverticula was found in the sigmoid colon Nonbleeding internal hemorrhoids were found during retroflexion. The hemorrhoids were small. no active bleeding noted appreciate GI eval ordered to advance diet stable to be discharged home today pt's anticoagulation Coumadin can be resumed repeat Colonoscopy in 3 yrs (2) Coronary artery disease: No recent anginal symptoms. aspirin resumed after colonoscopy Continue metoprolol. (3) Chronic systolic CHF (congestive heart failure): Compensated. Lasix resumed (4) Atrial fibrillation: rate controlled Continue metoprolol. Resumed warfarin after colonscopy. (5) Pacemaker: S/P pacemaker placement for bradycardia. (6) Hypertension: Continue metoprolol. 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 Insulin coverage as needed. (8) DVT prophylaxis: SCD's. Ambulate. (9) Discharge planning issues: stable to be discharged home today Internal Medicine follow-up with Dr. Dhillon. Subjective Returned from colonoscopy, No complaint of abdominal pain, no nausea vomiting, diet advanced, tolerating well No episode of lower GI bleed, no blood in stool Stable to be discharged home today, case discussed with GI Physical Exam Constitutional: WD/WN, vitals as above no acute distress Eyes: PERRL, conjunctivae normal, anicteric sclerae ENMT: external ear and nose normal, oropharynx normal Neck: trachea midline, no thyromegaly Respiratory: normal respiratory effort, lungs clear to auscultation no respiratory distress Auscultation: lungs clear to auscultation bilaterally Cardiovascular: Rate/Rhythm: regular rate and regular rhythm Heart Sounds: no murmur Vessels: no JVD Extremities: no calf tenderness and no edema Gastrointestinal (Abdomen): normal bowel sounds, soft, nontender, no hepatosplenomegaly Musculoskeletal: Head/Neck/Chest: neck supple Extremities: strength 5/5 throughout; no cyanosis and no clubbing Skin: no rashes, warm and dry Psychiatric: Orientation: alert and oriented x 3 Affect: euthymic affect Genitourinary: + bladder abnormal to inspection (Berman cath) Lymphatic: no cervical lymphadenopathy Results & Data Vital Signs (Past 12 Hours) Vital Signs Temp Pulse Resp BP BP Pulse Ox 10/23/18 10:00 68 161/75 H 10/23/18 09:37 72 16 123/66 98 10/23/18 09:22 68 16 142/79 H 98 10/23/18 09:07 78 16 117/49 L 99 10/23/18 08:07 36.6 C 63 16 150/70 H 100 10/23/18 07:10 36.4 C L 62 18 138/65 95 10/22/18 23:05 36.3 C L 57 L 16 131/73 98 (1) Coronary artery disease Associated angina: without angina Coronary Disease-Associated Artery/Lesion type: eek artery [place] vs. transplanted heart: eek heart Qualified Code(s): I25.10 - Atherosclerotic heart disease of eek coronary artery without angina pectoris (2) Atrial fibrillation Atrial fibrillation type: unspecified Qualified Code(s): I48.91 - Unspecified atrial fibrillation (3) Hypertension Hypertension type: essential hypertension Qualified Code(s): I10 - Essential (primary) hypertension
--- NOTE | 2018-10-23 11:33 | Discharge Summary ---
Date of Service October 23, 2018 Admission HPI Per Admitting Provider 83 YO male followed by Dr. Dhillon. History of chronic AF on warfarin, ischemic heart disease, colon cancer, and other problems. Recently experiencing hematochezia and colonoscopy was recommended. Unable to do colonoscopy prep at home because of back pain and decreased mobility. Bridging anticoagulation recommended due to AF with high [id number] score of 6. Last warfarin dose was 10/17. Enoxaparin was started 10/20 and last dose was this morning. Principal Diagnosis LOWER GI BLEED Discharge Exam Constitutional WD/WN, vitals as above no acute distress Eyes PERRL, conjunctivae normal, anicteric sclerae ENMT external ear and nose normal, oropharynx normal Neck trachea midline, no thyromegaly Respiratory normal respiratory effort, lungs clear to auscultation no respiratory distress Auscultation: lungs clear to auscultation bilaterally Cardiovascular Rate/Rhythm: regular rate and regular rhythm Heart Sounds: no murmur Vessels: no JVD Extremities: no calf tenderness and no edema Gastrointestinal (Abdomen) normal bowel sounds, soft, nontender, no hepatosplenomegaly Musculoskeletal Head/Neck/Chest: neck supple Extremities: strength 5/5 throughout; no cyanosis and no clubbing Skin no rashes, warm and dry Psychiatric Orientation: alert and oriented x 3 Affect: euthymic affect Genitourinary + bladder abnormal to inspection (Berman cath) Lymphatic no cervical lymphadenopathy Discharge Data Allergies Allergy/AdvReac Type Severity Reaction Status Date / Time sildenafil Allergy Unknown Unknown Verified 10/22/18 13:45 streptomycin Allergy Unknown Unknown Verified 10/22/18 13:45 sulfite Allergy Unknown THROAT Verified 10/22/18 13:45 SWELLING VASODILATORS Allergy Intermediate red Uncoded 10/22/18 13:45 swelling Consultations 10/22/18 15:31 Consult Gastroenterology Routine Procedures Performed Operation Date: 10/23/18 08:30 Actual Procedures p Colonoscopy Polypectomy - Sean Walker MD Hospital Course (1) Rectal bleeding: Recent rectal bleeding. no further episode since admission H&H stable ~14 History of adenocarcinoma of colon. s/p Colonoscopy today Colonoscopy 10/23/2018: -The perianal and digital rectal examinations were normal. -Terminal ileum appeared normal -There was evidence of a prior end-to-end ileocolic anastomosis in the ascending colon. This was patent and was characterized by healthy appearing mucosa. The anastomosis was traversed. 3 sessile polyps were found in the transverse colon. The polyps were 6 mm in size. These polyps were removed with a cold snare. Multiple small and large mouth diverticula was found in the sigmoid colon Nonbleeding internal hemorrhoids were found during retroflexion. The hemorrhoids were small. no active bleeding noted appreciate GI eval ordered to advance diet stable to be discharged home today pt's anticoagulation Coumadin can be resumed repeat Colonoscopy in 3 yrs (2) Coronary artery disease: No recent anginal symptoms. aspirin resumed after colonoscopy Continue metoprolol. (3) Chronic systolic CHF (congestive heart failure): Compensated. Lasix resumed (4) Atrial fibrillation: rate controlled Continue metoprolol. Resumed warfarin after colonscopy. (5) Pacemaker: S/P pacemaker placement for bradycardia. (6) Hypertension: Continue metoprolol. 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 Insulin coverage as needed. (8) DVT prophylaxis: SCD's. Ambulate. (9) Discharge planning issues: stable to be discharged home today Internal Medicine follow-up with Dr. Dhillon. Total Time Total Time Spent Total Time Spent (In Minutes): APPROX 35 MINS Total Time Includes: Examination of the Patient, Discharge Planning and Medication Reconciliation Discharge Plan Discharge Items Patient Disposition: Home - Self-Care Reason For Visit: RECTAL BLEEDING, AMBULATORY DYSFUNCTION Discharge Diagnosis: LOWER GI BLEED Discharge Goals: Decrease discomfort and Therapeutic intervention Activity: Resume your previous activity Non-emergency contact: Primary Care Provider Call non-emergency contact if: you have any medication questions Follow-up/Referrals: Sandeep Dhillon, [Primary Care Provider] - Diet: Carb Consistent or DM2 and Heart Healthy Addtl Provider Instructions: HOSPITAL FOLLOW UP WITH DR ONTIVEROS ON Monday10/30/2018@12:45 PM ( DR DHILLON'S SCHEDULE IS FULL ) CAN START TAKING COUMADIN FROM TOMORROW STOP TAKING LOVENOX HOLD ASPIRIN FOR 3 MORE DAYS CAN START TAKING IT FROM Monday10/26/2018 Prescriptions: Continued gabapentin 300 mg capsule 300 mg PO TID RF: 0 mirtazapine 15 mg tablet 15 mg PO HS RF: 0 furosemide 20 mg tablet 10 mg PO QAM RF: 0 Ocuvite Eye Health 50 mg-15 unit- 4.5 mg-2.5 mg Tablet,Chewable 1 tab PO QAM RF: 0 insulin glargine 100 unit/mL Solution 8 units SUBCUT QAM RF: 0 magnesium oxide 400 mg (241.3 mg magnesium) Tablet 400 mg PO QAM RF: 0 mometasone 50 mcg/actuation [place],Non-Aerosol 2 spray INTRANASAL QAM RF: 0 metoprolol succinate 25 mg Tablet Extended Release 24 Hr 25 mg PO QAM RF: 0 loratadine 10 mg Tablet 10 mg PO QAM RF: 0 acetaminophen [Tylenol] 325 mg Capsule 650 mg PO Q4H PRN (Reason: Pain) RF: 0 amiodarone 200 mg tablet 200 mg PO HS RF: 0 aspirin [Aspir-81] 81 mg Tablet,Delayed Release (Dr/Ec) 81 mg PO QAM RF: 0 warfarin 2 mg tablet 2 mg PO QPM RF: 0 zolpidem [Ambien] 5 mg Tablet 5 mg PO HS PRN (Reason: Insomnia) RF: 0 lorazepam [Ativan] 1 mg Tablet 1 mg PO QPM RF: 0 sennosides [Senokot] 8.6 mg Tablet 17.2 mg PO DAILY PRN (Reason: Constipation) Qty: 10 RF: 0 hydrocodone-acetaminophen [[place]] 5-325 mg Tablet 1 tab PO Q4H PRN (Reason: Pain) 7 Days Qty: 10 RF: 0 docusate sodium [Colace] 100 mg Capsule 100 mg PO BID Qty: 60 RF: 0 cyclobenzaprine 5 mg tablet 5 mg PO Q12H PRN (Reason: muscle spasm) RF: 0 calcium carbonate-vitamin D3 [Calcium 600 + D(3)] 600 mg(1,500mg) -400 unit Tablet 1 tab PO BID RF: 0 Discontinued enoxaparin [Lovenox] 80 mg/0.8 mL Syringe 80 mg SUBCUT UD RF: 0 Stand-Alone Forms: [facility] Discharge Orders: Discharge Order (Routine); Ordered 10/23/18 Ordered By: Tatyana Hawley Admission Data Admit Date/Time: 10/22/18 14:49 Attending Provider: Tatyana Hawley Admit Provider: Isidro Velasquez Primary Care Provider: Sandeep Dhillon Other Providers: Sean Walker ; Isidro Velasquez Service: Telemetry
--- NOTE | 2018-10-23 14:16 | Anesthesiology Progress Note ---
Date of Service October 23, 2018 Anesthesia Post Procedure Vital Signs Vital Signs: Temp Pulse Resp BP BP Pulse Ox 10/23/18 13:09 36.6 C 65 18 161/75 H 150/71 H 100 10/23/18 13:05 36.6 C 65 18 161/75 H 150/71 H 100 10/23/18 12:29 36.6 C 65 18 161/75 H 150/71 H 100 10/23/18 10:13 36.6 C 65 18 150/71 H 100 10/23/18 10:00 68 161/75 H 10/23/18 09:37 72 16 123/66 98 10/23/18 09:22 68 16 142/79 H 98 10/23/18 09:07 78 16 117/49 L 99 10/23/18 08:07 36.6 C 63 16 150/70 H 100 10/23/18 07:10 36.4 C L 62 18 138/65 95 10/22/18 23:05 36.3 C L 57 L 16 131/73 98 10/22/18 15:32 37.1 C 67 16 126/79 97 Pain Intensity Back: Pain Intensity: 3 Transfer of Care Handoff Completed per policy Notes Mental Status: alert / awake / arousable Patient Amnestic to Procedure: Yes Nausea / Vomiting: adequately controlled Pain: adequately controlled Airway Patency, RR, SpO2: stable & adequate BP & HR: stable & adequate Hydration State: stable & adequate Anesthetic Complications: no major complications apparent and Pt Satisfied with anesthetic care
== END 2018-10-23 14:18 | disposition home or self-care (01) ==
LOC: 3N → SUATTDRO 14:49

== ENCOUNTER 2022-04-27 11:25 | Inpatient (IN) ==
--- NOTE | 2022-04-27 11:48 | Emergency Department Note ---
Impression & Plan Fall, Fracture of head of humerus, Ambulatory dysfunction ED Provider Note NAME: MINERVA NICOLE AGE: 86 SEX: M : 1935 ARRIVES VIA: Ambulance INFORMANT: Patient, EMS/[facility] ED PROVIDER(S): Dov Cadet DO CHIEF COMPLAINT: fall HPI: Patient is an 86-year-old male with a past medical history of ESBL, diabetes, Peripheral artery disease who presents to the ER following mechanical fall. He was walking with his Rollator and lost balance and fell backwards and hit his head. He complains of mild headache and mild mid neck pain. No chest pain or belly pain. No other back pain. He has a majority of his pain in his left shoulder. He notes is worse with movement. Denies any tingling or numbness. No other exacerbating or remitting factors. He does take Coumadin. PAST MEDICAL HISTORY:See Below PAST SURGICAL HISTORY:See Below FAMILY HISTORY:See Below SOCIAL HISTORY:See Below HOME MEDICATIONS:See Below ALLERGIES:See Below VITALS:See Below PHYSICAL EXAMINATION: GENERAL: alert, well appearing, well nourished, no distress, non-toxic HEAD: normal cephalic, atraumatic EYE EXAM: normal conjunctiva, PERRL and EOM's grossly intact OROPHARYNX: no exudate, no erythema, lips, buccal mucosa, and tongue normal and mucous membranes are moist NECK: supple, no nuchal rigidity, no adenopathy, non-tender CHEST: stable to compression anteriorly and posteriorly LUNGS: clear to auscultation. Normal chest wall mechanics HEART: no murmurs, S1 normal and S2 normal ABDOMEN: abdomen soft, non-tender, normo-active bowel sounds, no masses, no rebound or guarding. PELVIS: stable to compression anteriorly and posteriorly BACK: Back is symmetrical on inspection and there is no deformity, no midline tenderness, no CVA tenderness. UPPER EXTREMITIES: Flexion-extension right shoulder elbow wrist and grasp is intact. Radial pulse 2 out of 4. No tenderness on palpation of entire extremity. Left upper extremity with tenderness over the left shoulder. No tenderness over the clavicle. Mid humerus tracking to the elbow forearm wrist and digits are nontender on the left. Radial pulse 2 out of 4. Gross sensation intact. LOWER EXTREMITIES: full active and passive range of motion of all joints without tenderness to palpation NEURO EXAM: Normal sensorium, cranial nerves II-XII grossly intact, normal speech, no gross weakness of arms, no gross weakness of legs. GCS: 15. MEDICAL DECISION MAKING: Patient is an 86-year-old male who lives at home alone and uses a Rollator to get around the presents ER following mechanical fall via EMS. Discussed with Daljit from EMS in regards to obtaining report. External records reviewed. IV was established blood work was obtained. Labs show no significant leukocytosis or anemia. INR therapeutic at 2.3. BMP with a creatinine of 1.5. No transaminitis. COVID was negative. This mechanical fall. CT head and cervical spine was negative. Chest x-ray as well as x-ray of the left humerus shows a humeral head fracture. Patient was placed in sling. Discussed with Phan from [facility] orthopedics as they have followed up with them as an outpatient. They will see them as an inpatient. I discussed with care managers as well as the patient's family members at bedside. He is unable to get around as he will not be able to get out of bed as he cannot use his left arm and he cannot walk without the Rollator. With this I discussed with the hospitalist Dr. Dao for further evaluation and admission due to the social situation at home in light of the new fracture of the left humeral head. Patient was also given IV morphine for pain. Triage Nursing notes reviewed. Limited review of prior medical records performed Vital Signs: reviewed and remarkable for HTN Differential diagnosis: Differential diagnoses include major intracranial, cervical, spinal, thoracic, abdominal, pelvic and neurologic injury. Fracture, contusion, sprain, strain, laceration, abrasions included as well. ER treatment provided: See below Diagnostics interpreted by me include EKG and cardiac monitoring as listed below: -Cardiac Monitoring: An order was placed for continuous cardiac monitoring. The monitor shows a rate of 80 with sinus rhythm. -ECG: none -Laboratory studies:Interpreted by me as stated above in MDM and shown below. Imaging studies: Xrays: As interpreted by me: Portable AP upright 1 view the chest shows no focal infiltrate per my read X-rays of the left humerus shows a humeral head fracture CTs show: CT of the head and cervical spine was negative Consultation(s): Discussed with care managers as described above as well as Dr. Raman for admission and further work-up in combination with [facility] orthopedics Phan in regards to following up from the inpatient standpoint Procedures:none Critical Care: None Past Med/Surg History Medical History Atrial fibrillation DX 10 YR AGO Chronic systolic CHF (congestive heart failure) Compression fracture of L4 lumbar vertebra HX BROKEN BACK Coronary artery disease Diabetes mellitus type 2 with complications Diabetic neuropathy "PERIPHERAL NEUROPATHY" Dyslipidemia Generalized OA History of anesthesia reaction WITH TESTICULAR SURGERY, [facility] - INCREASED BP & HAD TO STAY OVERNIGHT History of colon cancer HX COLON SURGERY History of hepatitis B History of melanoma HX MELANOMA, HX MULTIPLE SKIN CA & REMOVED History of Mohs micrographic surgery for skin cancer History of prostate cancer History of prostate cancer PROSTATECTOMY History of UTI BLADDER INFECTION 2 WKS AGO/RESOLVED Hypertension Lumbar spinal stenosis Pacemaker "DUAL" - PT NOT SURE BRAND, PLACED D/T AFIB - HAS APPOINTMENT FOR CHECK TODAY AT [facility] Renal [facility] 3RD STAGE Ulcer of toe REASON FOR UPCOMING PROCEDURE Surgical History H/O prostatectomy History of cardiac cath 12-14 YR AGO, [facility] - CHECKING FOR BLOCKAGE - NO STENTS History of colonoscopy MULTIPLE History of right hemicolectomy History of testicular surgery History of tonsillectomy and adenoidectomy Family History Mother Coronary heart disease Father Heart disease Social History Smoking Status: Never smoker Second Hand Exposure: No; Hx Alcohol Use: Yes (none recently) Alcohol type: wine Hx Substance Use: No Preferred Language: Malian Communication Ability: Effective Bilingual Medical Assistant Required: No Beliefs That Will Affect Care: None Current Living Situation: Alone current occupational status: retired Feels Safe at Home: Yes Assistive Devices: Glasses and Wheelchair Allergies Allergies Allergy/AdvReac Type Severity Reaction Status Date / Time sildenafil Allergy Unknown SWELLING Verified 09/23/21 13:53 OF FACE AND HEAD streptomycin Allergy Unknown N/V Verified 09/23/21 13:53 sulfite Allergy Unknown THROAT Verified 09/23/21 13:53 SWELLING nitrofurantoin AdvReac Diarrhea Verified 09/23/21 13:53 Sulfites Allergy Unknown throat Uncoded 09/23/21 13:53 swelling VASODILATORS Allergy Unknown "PERIPHERAL Uncoded 09/23/21 13:53 DILATOR" swelling of face and head Streptomycin Sulfate POWD AdvReac Unknown N/V Uncoded 09/23/21 13:53 Home Meds Home Medications Medication Instructions Recorded Confirmed amiodarone 200 mg tablet 200 mg PO HS 01/02/18 09/23/21 insulin glargine 100 unit/mL 12 - 13 units subcut [facility] 01/02/18 09/23/21 subcutaneous solution loratadine 10 mg tablet 10 mg PO [facility] 01/02/18 09/23/21 lorazepam 1 mg tablet (Ativan) 1 mg PO QPM 01/02/18 09/23/21 magnesium oxide 400 mg (241.3 mg 400 mg PO [facility] 01/02/18 09/23/21 magnesium) tablet metoprolol succinate 25 mg 25 mg PO [facility] 01/02/18 09/23/21 tablet,extended release 24 hr mometasone 50 mcg/actuation nasal 2 spray intranasal [facility] 01/02/18 09/23/21 spray warfarin 2 mg tablet 2 mg PO 4XWK 01/02/18 09/23/21 zolpidem 5 mg tablet (Ambien) 5 mg PO 01/02/18 09/23/21 cyclobenzaprine 5 mg tablet 5 mg PO UD PRN muscle spasm 01/22/18 09/23/21 gabapentin 300 mg capsule 300 mg PO BID 03/10/18 09/23/21 mirtazapine 15 mg tablet 15 mg PO 03/10/18 09/23/21 furosemide 20 mg tablet 10 mg PO 10/22/18 09/23/21 vit C 50 mg-E 15 unit-zinc cit 4.5 1 tab PO [facility] 10/22/18 09/23/21 mg-lutein 2.5 mg-zeaxan chew tablet ([facility]) trimethoprim 100 mg tablet 100 mg PO HS #30 tabs 11/08/18 09/23/21 calcium carbonate 600 mg-vitamin 1 tab PO DAILY 05/12/20 09/23/21 D3 10 mcg (400 unit) tablet (Calcium 600 + D(3)) hydrocodone 5 mg-acetaminophen 325 1 tab PO UD PRN Pain 05/21/20 09/23/21 mg tablet (Benedict) nystatin 1 billion unit oral powder 1 unit UD PRN JOCK ITCH 05/21/20 09/23/21 Previous Rx's Medication Instructions Recorded docusate sodium 100 mg capsule 100 mg PO BID #60 caps 01/12/18 (Colace) nitrofurantoin 100 mg PO BID 10 days #20 caps 03/01/21 monohydrate/macrocrystals 100 mg capsule (Macrobid) Results & Data (ED) Vital Signs Vital Signs - 24 hr 04/27/22 11:40 04/27/22 11:40 04/27/22 11:51 Temperature 36.6 C Temperature Source Oral Pulse Rate 66 Pulse Rate [Finger] 65 Pulse Rhythm Regular Pulse Rhythm [Finger] Regular Pulse Strength Normal Pulse Strength [Finger] Normal Respiratory Rate 18 18 18 Respiratory Effort / Characteristics Non-Labored Non-Labored Respiratory Depth Normal Normal Respiratory Pattern Regular Blood Pressure 153/81 H Blood Pressure [Right Arm] 153/81 H Blood Pressure Mean 105 Blood Pressure Mean [Right Arm] 105 Blood Pressure Position [Right Arm] Pulse Oximetry 98 98 98 Oxygen Delivery Method Room Air Room Air Room Air Sepsis Recent Fever Within 48 Hours No Sepsis New/Unexplained Change in Mental Status No Sepsis Action Taken by Nursing No Action Required 04/27/22 13:35 Temperature Temperature Source Pulse Rate Pulse Rate [Finger] 72 Pulse Rhythm Pulse Rhythm [Finger] Regular Pulse Strength Pulse Strength [Finger] Respiratory Rate 20 Respiratory Effort / Characteristics Non-Labored Spontaneous Respiratory Depth Normal Respiratory Pattern Regular Blood Pressure Blood Pressure [Right Arm] 131/96 Blood Pressure Mean Blood Pressure Mean [Right Arm] 107 Blood Pressure Position [Right Arm] Lying Pulse Oximetry 95 Oxygen Delivery Method Room Air Sepsis Recent Fever Within 48 Hours Sepsis New/Unexplained Change in Mental Status Sepsis Action Taken by Nursing Laboratory Data 04/27/22 11:45 04/27/22 11:45 Lab Results 04/27/22 04/27/22 04/27/22 Range/Units 11:45 11:45 11:45 WBC 9.57 (4.8-10.8) K/ul RBC 5.04 (4.63-6.08) M/uL Hgb 16.1 (14.0-18.0) g/dl Hct 47.3 (40.1-51.0) % MCV 93.8 (80.0-100.0) fL MCH 31.9 (25.0-34.0) pg MCHC 34.0 (32.0-36.0) g/dL RDW Std Deviation 45.8 (36.4-46.3) fL RDW Coeff of Gabriela 13.3 (11.5-14.5) % Plt Count 214 (130-400) K/uL MPV 9.9 (9.4-12.4) fL Immature Gran % (Auto) 0.4 % Neut % (Auto) 49.6 % Lymph % (Auto) 40.4 % Beaver % (Auto) 8.3 % Eos % (Auto) 0.9 % Baso % (Auto) 0.4 % Neut # (Auto) 4.74 (1.4-6.5) K/uL Lymph # (Auto) 3.87 H (1.2-3.4) K/uL Beaver # (Auto) 0.79 (0.24-0.82) K/uL Eos # (Auto) 0.09 (0-0.50) K/uL Baso # (Auto) 0.04 (0-0.2) K/uL Immature Gran # (Auto) 0.04 H (0.00-0.02) K/uL PT 23.8 H (9.0-12.0) Seconds INR 2.3 H (0.9-1.1) Sodium 136 (136-145) mmol/L Potassium 4.0 (3.5-5.1) mmol/L Chloride 97 L (98-107) mmol/L Carbon Dioxide 31 (21-32) mmol/L Anion Gap 8 (3-11) BUN 20 (6-23) mg/dl Creatinine 1.55 H (0.6-1.4) mg/dl Est Cr Clr Drug Dosing 43.1 ml/min Est GFR ( Amer) 46.3 ml/min Est GFR (Non-Af Amer) 39.9 ml/min BUN/Creatinine Ratio 12.9 (10-20) Glucose 195 H (70-99(Fasting)) mg/dl Calcium 9.0 (8.5-10.1) mg/dl Total Bilirubin 0.6 (0.2-1.0) mg/dl AST 24 (13-39) U/L ALT 22 (7-52) U/L Alkaline Phosphatase 114 H (34-104) U/L Total Protein 6.8 (6.0-8.3) gm/dl Albumin 3.8 (3.4-5.0) gm/dl Globulin 3.0 (2.5-4.0) gm/dl Albumin/Globulin Ratio 1.3 (0.9-2) SARS-CoV-2, RNA, NAAT (NEGATIVE) 04/27/22 Range/Units 14:00 WBC (4.8-10.8) K/ul RBC (4.63-6.08) M/uL Hgb (14.0-18.0) g/dl Hct (40.1-51.0) % MCV (80.0-100.0) fL MCH (25.0-34.0) pg MCHC (32.0-36.0) g/dL RDW Std Deviation (36.4-46.3) fL RDW Coeff of Gabriela (11.5-14.5) % Plt Count (130-400) K/uL MPV (9.4-12.4) fL Immature Gran % (Auto) % Neut % (Auto) % Lymph % (Auto) % Beaver % (Auto) % Eos % (Auto) % Baso % (Auto) % Neut # (Auto) (1.4-6.5) K/uL Lymph # (Auto) (1.2-3.4) K/uL Beaver # (Auto) (0.24-0.82) K/uL Eos # (Auto) (0-0.50) K/uL Baso # (Auto) (0-0.2) K/uL Immature Gran # (Auto) (0.00-0.02) K/uL PT (9.0-12.0) Seconds INR (0.9-1.1) Sodium (136-145) mmol/L Potassium (3.5-5.1) mmol/L Chloride (98-107) mmol/L Carbon Dioxide (21-32) mmol/L Anion Gap (3-11) BUN (6-23) mg/dl Creatinine (0.6-1.4) mg/dl Est Cr Clr Drug Dosing ml/min Est GFR ( Amer) ml/min Est GFR (Non-Af Amer) ml/min BUN/Creatinine Ratio (10-20) Glucose (70-99(Fasting)) mg/dl Calcium (8.5-10.1) mg/dl Total Bilirubin (0.2-1.0) mg/dl AST (13-39) U/L ALT (7-52) U/L Alkaline Phosphatase (34-104) U/L Total Protein (6.0-8.3) gm/dl Albumin (3.4-5.0) gm/dl Globulin (2.5-4.0) gm/dl Albumin/Globulin Ratio (0.9-2) SARS-CoV-2, RNA, NAAT NEGATIVE (NEGATIVE) Administered Medications Discontinued Medications Morphine Sulfate (Morphine Sulfate 2 Mg/Ml Carp) 2 mg IV NOW STA Stop: 04/27/22 13:22 Last Admin: 04/27/22 13:30 Dose: 2 mg Documented By: AUGUSTIN Imaging Data Radiologist's Impression: Cervical Spine CT 04/27/22 11:31 CT OF THE CERVICAL SPINE WITHOUT CONTRAST CLINICAL HISTORY: Fall. COMPARISON STUDY: Cervical spine CT February 01, 2011 and CTA of the neck March 22, 2011. TECHNIQUE: Helical axial images of the cervical spine were obtained without IV contrast. Sagittal and coronal reconstructions were viewed. Automated exposure control was utilized for the study. A dose lowering technique was utilized adhering to the principles of ALARA. FINDINGS: Alignment of the cervical spine is anatomic. Vertebral body heights are maintained. No acute cervical spine fracture or subluxation is present. There is no prevertebral edema. Facet joints are intact. Severe multilevel facet arthrosis is present. There is moderate multilevel disc space narrowing and osteophytosis within the cervical spine. Mild concavity of the superior endplate of C5 is chronic. An acute left humeral neck fracture is noted on help desk supervisor image. IMPRESSION: 1. No acute cervical spine fracture or subluxation. 2. Acute left humeral neck fracture noted on help desk supervisor image. ACT 112: Negative or not required by law. Electronically signed by: Dieudonne Roy M.D. 04/27/2022 12:[address] 04/27/22 11:31 CT SCAN OF THE BRAIN WITHOUT IV CONTRAST CLINICAL HISTORY: Fall. Head injury. COMPARISON STUDY: CT of the brain dated 09/23/2015. TECHNIQUE: Unenhanced axial CT scan of the brain is performed from the vertex to the skull base. A dose lowering technique was utilized adhering to the principles of ALARA. CT DOSE: 1133.33 mGy.cm FINDINGS: Brain parenchyma: There is age-related involutional change noting [id number] subcortical and periventricular microangiopathic disease. There is no hemorrhage, mass effect, or evidence of acute territorial ischemia by CT criteria. De La Vega-white matter differentiation is preserved. No extra-axial fluid collection is seen. Ventricles, sulci, cisterns: Prominent secondary to involutional change. Intracranial vasculature: There is atherosclerotic calcification of the cavernous carotid and vertebral arteries. Calvarium: The skeletal structures are osteopenic. No depressed calvarial fracture is seen. Sinuses and mastoids: A 2.3 cm retention cyst is noted in the left maxillary antrum. There is subtotal opacification of the left sphenoid sinus. The remaining visualized paranasal sinuses are clear. The mastoid air cells are well pneumatized. Orbits: The bony orbits are grossly intact. There are bilateral ocular lens implants. IMPRESSION: There is no hemorrhage, mass effect, or evidence of acute territorial ischemia by CT criteria. ACT 112: Negative or not required by law. Electronically signed by: Austin Guaman M.D. 04/27/2022 12:34 PM Humerus X-Ray 04/27/22 11:31 XR humerus LT 2V CLINICAL HISTORY: Left shoulder pain following injury. COMPARISON: Left shoulder radiographs November 23, 2007. FINDINGS: Left subclavian pacer is partially imaged on this exam. There is an acute displaced left humeral neck fracture. Fracture is displaced approximately 1.4 cm. No distal left humeral fracture is noted. Alignment of the left glenohumeral and acromioclavicular joints is anatomic. Moderate AC joint osteoarthritis is present. Alignment of the left elbow is anatomic. IMPRESSION: Acute displaced left humeral neck fracture. ACT 112: Negative or not required by law. Electronically signed by: Dieudonne Roy M.D. 04/27/2022 1:45 PM Chest X-Ray 04/27/22 11:32 XR chest 1V portable CLINICAL HISTORY: fall truama TECHNIQUE: Single frontal radiograph of the chest was obtained. Comparison: Comparison is made to chest radiograph 05/14/2020 FINDINGS: Dual lead pacemaker is seen. Cardiomegaly is noted. The aortic arch is calcified. The lungs are clear. No evidence of pleural effusion or pneumothorax. Partial visualization of deformity of the left shoulder, please see dedicated shoulder radiographs for further evaluation. IMPRESSION: No acute chest disease. Please see shoulder radiograph for findings of shoulder fracture. ACT 112: Negative or not required by law. Electronically signed by: Peterson Vela M.D. 04/27/2022 1:37 PM Shoulder X-Ray 04/27/22 13:01 LEFT SHOULDER 2 VIEWS CLINICAL HISTORY: Fall with left shoulder injury. FINDINGS: 2 views of the left shoulder are obtained. No prior studies are available for comparison at the time of dictation. The skeletal structures are osteopenic. There is an impacted and comminuted fracture of the left humeral head and neck. There is offset of the humeral shaft. Overlying soft tissue edema is noted. No additional fracture is seen. The glenohumeral and acromioclavicular joints appear aligned. The left lung parenchyma is clear as visualized. A cardiac pacemaker is seen in the left upper chest. IMPRESSION: Left humeral head/neck fracture as above. Electronically signed by: Austin Guaman M.D. 04/27/2022 1:49 PM Discharge Plan Visit Data Chief Complaint: Fall ED Provider: Dov Cdaet Discharge Problem: Fall, Fracture of head of humerus, Ambulatory dysfunction Forms Stand Alone Forms: [facility] Prescriptions Prescriptions: No Action nitrofurantoin monohyd/m-cryst [Macrobid] 100 mg capsule 100 mg PO BID 10 Days Qty: 20 0RF Rx Instructions: must administer with a meal/food trimethoprim 100 mg tablet 100 mg PO HS Qty: 30 gabapentin 300 mg capsule 300 mg PO BID mirtazapine 15 mg tablet 15 mg PO HS furosemide 20 mg tablet 10 mg PO HS Oc[facility] 50 mg-15 unit- 4.5 mg-2.5 mg Tablet,Chewable 1 tab PO QAM hydrocodone-acetaminophen [Benedict] 5-325 mg tablet 1 tab PO UD PRN (Reason: Pain) nystatin 1 billion unit Powder 1 unit UD PRN (Reason: JOCK ITCH) insulin glargine 100 unit/mL Solution 12 - 13 units SUBCUT QAM magnesium oxide 400 mg (241.3 mg magnesium) Tablet 400 mg PO QAM mometasone 50 mcg/actuation [place],Non-Aerosol 2 spray INTRANASAL QAM metoprolol succinate 25 mg Tablet Extended Release 24 Hr 25 mg PO QAM loratadine 10 mg Tablet 10 mg PO QAM amiodarone 200 mg tablet 200 mg PO HS warfarin 2 mg tablet 2 mg PO 4XWK zolpidem [Ambien] 5 mg Tablet 5 mg PO HS lorazepam [Ativan] 1 mg Tablet 1 mg PO QPM docusate sodium [Colace] 100 mg Capsule 100 mg PO BID Qty: 60 0RF cyclobenzaprine 5 mg tablet 5 mg PO UD PRN (Reason: muscle spasm) Rx Instructions: TAKES RARELY calcium carbonate-vitamin D3 [Calcium 600 + D(3)] 600 mg(1,500mg) -400 unit tablet 1 tab PO DAILY Referrals Referrals: Vianey Matamoros MD [Primary Care Provider] -
[2022-04-27 12:22] LABS: Basophils # (auto) 0.04 K/uL (0-0.2); Basophils % (auto) 0.4 %; Eosinophils # (auto) 0.09 K/uL (0-0.50); Eosinophils % (auto) 0.9 %; Hematocrit (blood only) 47.3 % (40.1-51.0); Hemoglobin 16.1 g/dl (14.0-18.0); Immature Granulocytes # (auto) 0.04 K/uL (0.00-0.02); Immature Granulocytes % (auto) 0.4 %; Lymphocytes # (auto) 3.87 K/uL (1.2-3.4); Lymphocytes % (auto) 40.4 %; Mean Corpuscular Hemoglobin 31.9 pg (25.0-34.0); Mean Corpuscular Volume 93.8 fL (80.0-100.0); Mean Platelet Volume 9.9 fL (9.4-12.4); Monocytes # (auto) 0.79 K/uL (0.24-0.82); Monocytes % (auto) 8.3 %; Neutrophils # (auto) 4.74 K/uL (1.4-6.5); Neutrophils % (auto) 49.6 %; Platelet Count 214 K/uL (130-400); RDW Coefficient of Variation 13.3 % (11.5-14.5); RDW Standard Deviation 45.8 fL (36.4-46.3); Red Blood Count 5.04 M/uL (4.63-6.08); White Blood Count 9.57 K/ul (4.8-10.8)
--- NOTE | 2022-04-27 12:33 | CT Scan Report ---
CT OF THE CERVICAL SPINE WITHOUT CONTRAST CLINICAL HISTORY: Fall. COMPARISON STUDY: Cervical spine CT February 01, 2011 and CTA of the neck March 22, 2011. TECHNIQUE: Helical axial images of the cervical spine were obtained without IV contrast. Sagittal a nd coronal reconstructions were viewed. Automated exposure control was utilized for the study. A do se lowering technique was utilized adhering to the principles of ALARA. FINDINGS: Alignment of the cervical spine is anatomic. Vertebral body heights are maintained. No acut e cervical spine fracture or subluxation is present. There is no prevertebral edema. Facet joints are intact. Severe multilevel facet arthrosis is present. There is moderate multilevel disc space narrow ing and osteophytosis within the cervical spine. Mild concavity of the superior endplate of C5 is chr onic. An acute left humeral neck fracture is noted on die technician image. IMPRESSION: 1. No acute cervical spine fracture or subluxation. 2. Acute left humeral neck fracture noted on die technician image. ACT 112: Negative or not required by law. Electronically signed by: Dieudonne Roy M.D. 04/27/2022 12:32 PM
--- NOTE | 2022-04-27 12:35 | CT Scan Report ---
CT SCAN OF THE BRAIN WITHOUT IV CONTRAST CLINICAL HISTORY: Fall. Head injury. COMPARISON STUDY: CT of the brain dated 09/23/2015. TECHNIQUE: Unenhanced axial CT scan of the brain is performed from the vertex to the skull base. A do se lowering technique was utilized adhering to the principles of ALARA. CT DOSE: 1133.33 mGy.cm FINDINGS: Brain parenchyma: There is age-related involutional change noting [id number] subcortical and pe riventricular microangiopathic disease. There is no hemorrhage, mass effect, or evidence of acute ter ritorial ischemia by CT criteria. De La Vega-white matter differentiation is preserved. No extra-axial flui d collection is seen. Ventricles, sulci, cisterns: Prominent secondary to involutional change. Intracranial vasculature: There is atherosclerotic calcification of the cavernous carotid and vertebr al arteries. Calvarium: The skeletal structures are osteopenic. No depressed calvarial fracture is seen. Sinuses and mastoids: A 2.3 cm retention cyst is noted in the left maxillary antrum. There is subtota l opacification of the left sphenoid sinus. The remaining visualized paranasal sinuses are clear. The mastoid air cells are well pneumatized. Orbits: The bony orbits are grossly intact. There are bilateral ocular lens implants. IMPRESSION: There is no hemorrhage, mass effect, or evidence of acute territorial ischemia by CT julien bustamante. ACT 112: Negative or not required by law. Electronically signed by: Austin Guaman M.D. 04/27/2022 12:34 PM
[2022-04-27 12:36] LABS: INR 2.3 (0.9-1.1); Prothrombin Time 23.8 Seconds (9.0-12.0)
[2022-04-27 12:45] LABS: Albumin Globulin Ratio 1.3 (0.9-2); Albumin Level 3.8 gm/dl (3.4-5.0); BUN Creatinine Ratio 12.9 (10-20); Bilirubin,Total 0.6 mg/dl (0.2-1.0); Creatinine Clr Calc Pharmacy 43.1 ml/min; Est GFR (African American) 46.3 ml/min; Est GFR (Non-African American) 39.9 ml/min; Total Protein 6.8 gm/dl (6.0-8.3)
[2022-04-27] MEDS ORDERED: MoRPHine SULFATE 2 MG/ML CARP IV STA (13:21)
--- NOTE | 2022-04-27 13:39 | XRay Report ---
XR chest 1V portable CLINICAL HISTORY: fall truama TECHNIQUE: Single frontal radiograph of the chest was obtained. Comparison: Comparison is made to chest radiograph 05/14/2020 FINDINGS: Dual lead pacemaker is seen. Cardiomegaly is noted. The aortic arch is calcified. The lungs are clear . No evidence of pleural effusion or pneumothorax. Partial visualization of deformity of the left tata ulder, please see dedicated shoulder radiographs for further evaluation. IMPRESSION: No acute chest disease. Please see shoulder radiograph for findings of shoulder fracture. ACT 112: Negative or not required by law. Electronically signed by: Peterson Vela M.D. 04/27/2022 1:37 PM
--- NOTE | 2022-04-27 13:47 | XRay Report ---
XR humerus LT 2V CLINICAL HISTORY: Left shoulder pain following injury. COMPARISON: Left shoulder radiographs November 23, 2007. FINDINGS: Left subclavian pacer is partially imaged on this exam. There is an acute displaced left h umeral neck fracture. Fracture is displaced approximately 1.4 cm. No distal left humeral fracture is noted. Alignment of the left glenohumeral and acromioclavicular joints is anatomic. Moderate AC joint osteoarthritis is present. Alignment of the left elbow is anatomic. IMPRESSION: Acute displaced left humeral neck fracture. ACT 112: Negative or not required by law. Electronically signed by: Dieudonne Roy M.D. 04/27/2022 1:45 PM
--- NOTE | 2022-04-27 13:51 | XRay Report ---
LEFT SHOULDER 2 VIEWS CLINICAL HISTORY: Fall with left shoulder injury. FINDINGS: 2 views of the left shoulder are obtained. No prior studies are available for comparison at the time of dictation. The skeletal structures are osteopenic. There is an impacted and comminuted f racture of the left humeral head and neck. There is offset of the humeral shaft. Overlying soft tissu e edema is noted. No additional fracture is seen. The glenohumeral and acromioclavicular joints appea r aligned. The left lung parenchyma is clear as visualized. A cardiac pacemaker is seen in the left u pper chest. IMPRESSION: Left humeral head/neck fracture as above. Electronically signed by: Austin Guaman M.D. 04/27/2022 1:49 PM
--- NOTE | 2022-04-27 14:21 | History & Physical Report ---
Date of Service April 27, 2022 Assessment & Plan (1) Closed fracture of left proximal humerus: (2) Fall: Plan: Patient is 86-year-old male with PMH atrial fibrillation anticoagulated on warfarin, history of complete heart block s/p pacemaker, CAD, DM II, chronic sy stolic heart failure, CKD III, chronic pain, urinary retention, chronic catheter, history ESBL E. coli, history of aspiration, history of prostate cancer s/p prostatectomy, history of colon cancer s/p right hemicolectomy presented to ER with complaint of mechanical fall and left shoulder pain today. Left humerus x-ray: Acute displaced left humeral neck fracture. Patient uses walker at baseline and is unable to ambulate with walker with his current left humerus fracture. Will likely need placement Apply ice area, continue sling Scheduled Tylenol, oxycodone as needed, morphine as needed severe pain Ortho consult. Spoke with [facility] on-call Ortho who recommends can continue patient's chronic warfarin as patient likely nonsurgical candidate CBC, BMP in a.m. (3) Urinary retention: Plan: History of chronic urinary retention. Chronic catheter Due to have catheter changed by urology on 04/28/2022 Consult urology for catheter change Denies any noted hematuria, fever, chills, abdominal pain. Patient with history ESBL E. coli (4) History of airway aspiration: Plan: Has been followed up with speech therapy outpatient. Recommend patient sitting upright, chin tuck. Thin liquids, applesauce to take pills. Is not on any thickened liquids Aspiration precautions (5) Atrial fibrillation: Plan: Anticoagulated on warfarin INR: 2.3 Continue amiodarone, metoprolol succinate, warfarin INR in a.m. (6) Coronary artery disease: Plan: Medically managed Continue metoprolol succinate (7) Diabetes mellitus type 2 with complications: Plan: A1c: 6.4 on 12/31/2021 Continue home basal insulin NovoLog sliding scale per protocol A1c in a.m. (8) Chronic systolic heart failure: Plan: 02/11 echo: EF: 45%, grade 1 diastolic dysfunction Hold Lasix tomorrow and reevaluate (9) CKD (chronic kidney disease), stage III: Plan: Cr: 1.5. Baseline 1.2-1.3 Hold Lasix tomorrow and reassess renal functions Avoid nephrotoxic agents when possible (10) Complete heart block: (11) Pacemaker: Plan: Recent history of reported decreased pacemaker battery life Pacemaker interrogation today to assess May need to consult cardiology (12) Chronic pain: Plan: History of chronic back pain secondary to compression fractures Continue gabapentin. Hold home hydrocodone as receiving different pain management as above (13) History of prostate cancer: Plan: S/p prostatectomy (14) History of prostate cancer: Plan: S/p right hemicolectomy Outpatient review patient has been having increased CEA levels. Followed up with GI and is to have upcoming colonoscopy to further assess DVT Prophylaxis On warfarin, INR therapeutic Full code as per discussion with pt Follows with Dr Matamoros for routine care Pt was seen and care coordinated with Dr Dao. See addendum 80 minutes time spent including reviewing outpatient records, labs, obtaining history from patient and caregiver, performing exam, ordering medications, labs, discussion with consultants, discussion with patient, independent review of x- rays, EKG History of Present Illness Chief Complaint: Fall Primary Care Provider: Vianey Matamoros MD Patient is 86-year-old male with PMH atrial fibrillation anticoagulated on warfarin, history of complete heart block s/p pacemaker, CAD, DM II, chronic systolic heart failure, CKD III, chronic pain, urinary retention, chronic catheter, history ESBL E. coli, history of aspiration, history of prostate cancer s/p prostatectomy, history of colon cancer s/p right hemicolectomy presented to ER with complaint of fall and left shoulder pain today. Ambulates with rolling walker at baseline. Patient states was ambulating in his house with his walker when his leg got caught and he lost his balance falling onto back and left shoulder. Complains of pain to left shoulder with inability to move shoulder. Also complains of headache, neck pain. Has chronic low back pain with history of fractures which he feels is at baseline. Denies extremity paresthesias. Denies loss of consciousness, syncope, dizziness, chest pain, shortness of breath prior or after fall. Patient reports history of chronic bowel irregularities including constipation varying with loose stools. He states yesterday had several episodes of loose stools which is not out of the norm for him. Denies melena, hematochezia. Patient does report outpatient monitoring of elevating CEA levels. He is to have colonoscopy in the next couple of weeks to assess. Patient reports is to have his catheter changed tomorrow. He has this done at urology office. Patient also states is being closely monitored for pacemaker battery life and was to have upcoming pacemaker interrogation in the next week. denies fever/chills, diaphoresis, N/V, vision changes, neck pain, CP, SOB, orthopnea, palpitations, cough, sore throat, choking, otalgia, rhinorrhea, abdominal pain, extremity edema, rashes, urinary symptoms. Allergies Allergy/AdvReac Type Severity Reaction Status Date / Time sildenafil Allergy Unknown SWELLING Verified 04/27/22 15:43 OF FACE AND HEAD streptomycin Allergy Unknown N/V Verified 04/27/22 15:43 sulfite Allergy Unknown THROAT Verified 04/27/22 15:43 SWELLING nitrofurantoin AdvReac Diarrhea Verified 04/27/22 15:43 Sulfites Allergy Unknown throat Uncoded 04/27/22 15:43 swelling VASODILATORS Allergy Unknown "PERIPHERAL Uncoded 04/27/22 15:43 DILATOR" swelling of face and head Streptomycin Sulfate POWD AdvReac Unknown N/V Uncoded 04/27/22 15:43 Home Medications Medication Instructions Recorded Confirmed Type amiodarone 200 mg tablet 200 mg PO [facility] 01/02/18 04/27/22 History insulin glargine 100 unit/mL 16 units subcut DAILYBB 01/02/18 04/27/22 History subcutaneous solution loratadine 10 mg tablet 10 mg PO QA 01/02/18 04/27/22 History magnesium oxide 400 mg (241.3 mg 400 mg PO [facility] 01/02/18 04/27/22 History magnesium) tablet metoprolol succinate 25 mg 25 mg PO [facility] 01/02/18 04/27/22 History tablet,extended release 24 hr warfarin 2 mg tablet 2 mg PO DAILY 01/02/18 04/27/22 History zolpidem 5 mg tablet (Ambien) 5 mg PO HS PRN Sleep 01/02/18 04/27/22 History gabapentin 300 mg capsule 300 mg PO TID 03/10/18 04/27/22 History mirtazapine 15 mg tablet 15 mg PO HS 03/10/18 04/27/22 History furosemide 20 mg tablet 20 mg PO QAM 10/22/18 04/27/22 History vit C 50 mg-E 15 unit-zinc cit 4.5 1 tab PO QA 10/22/18 04/27/22 History mg-lutein 2.5 mg-zeaxan chew tablet ([employer] calcium carb-vit D3-minerals 600 1 tab PO DAILY 04/27/22 04/27/22 History mg calcium-400 unit tablet docusate sodium 100 mg capsule 100 mg PO BID 04/27/22 04/27/22 History (Colace) hydrocodone 5 mg-acetaminophen 325 1 tab PO BID PRN pain,severe 04/27/22 04/27/22 History mg tablet lorazepam 1 mg tablet 1 mg PO HS 04/27/22 04/27/22 History mometasone 0.1 % topical solution 1 applic topical DAILY PRN Itching 04/27/22 04/27/22 History nystatin 100,000 unit/gram topical 1 applic topical TID 04/27/22 04/27/22 History powder (Nystop) Past Med/Surg History Medical History Atrial fibrillation DX 10 YR AGO Chronic systolic CHF (congestive heart failure) Compression fracture of L4 lumbar vertebra HX BROKEN BACK Coronary artery disease Diabetes mellitus type 2 with complications Diabetic neuropathy "PERIPHERAL NEUROPATHY" Dyslipidemia Generalized OA History of airway aspiration History of anesthesia reaction WITH TESTICULAR SURGERY, [facility] - INCREASED BP & HAD TO STAY OVERNIGHT History of colon cancer HX COLON SURGERY History of hepatitis B History of melanoma HX MELANOMA, HX MULTIPLE SKIN CA & REMOVED History of Mohs micrographic surgery for skin cancer History of prostate cancer History of prostate cancer PROSTATECTOMY History of UTI BLADDER INFECTION 2 WKS AGO/RESOLVED Hypertension Lumbar spinal stenosis Pacemaker "DUAL" - PT NOT SURE BRAND, PLACED D/T AFIB - HAS APPOINTMENT FOR CHECK TODAY AT [facility] Renal failure 3RD STAGE Ulcer of toe REASON FOR UPCOMING PROCEDURE Surgical History H/O prostatectomy History of cardiac cath 12-14 YR AGO, [facility] - CHECKING FOR BLOCKAGE - NO STENTS History of colonoscopy MULTIPLE History of right hemicolectomy History of testicular surgery History of tonsillectomy and adenoidectomy Family History Mother Coronary heart disease Father Heart disease Social History Smoking Status: Never smoker Second Hand Exposure: No; Hx Alcohol Use: Yes (none recently) Alcohol type: wine Hx Substance Use: No Preferred Language: Serbian Communication Ability: Effective School Aide Required: No Beliefs That Will Affect Care: None Current Living Situation: Alone current occupational status: retired Feels Safe at Home: Yes Assistive Devices: Glasses and Wheelchair Review of Systems Review of Systems: All systems reviewed & are unremarkable except as noted in HPI & below Physical Exam Physical Exam: General: no acute distress, WDWN Head: normocephalic, atraumatic Eyes: PERRL, EOM's intact, conjunctiva non-injected, anicteric ENT: normal inspection external ears, nose, mucous membranes moist Neck: supple, trachea midline, non-tender Lungs: clear, no respiratory distress, no wheezing/rhonchi/rales CV: RRR, no murmur, no pretibial edema Abd: normal BS, soft, non-tender Ext: no cyanosis, no calf tenderness; LUE: +sling in place to left arm, +edema and tenderness to palpation of anterior shoulder, able to move fingers, distal pulses palpable, sensation to light touch intact Neuro: A&O x 3, no focal deficits noted, normal affect Skin: warm, dry Results & Data Results & Data ([facility]) Vital Signs (Past 12 Hours) Vital Signs Temp Pulse Pulse Resp BP BP Pulse Ox 04/27/22 13:35 72 20 131/96 95 04/27/22 11:51 18 98 04/27/22 11:40 65 18 153/81 H 98 04/27/22 11:40 36.6 C 66 18 153/81 H 98 O2 Del Method 04/27/22 13:35 Room Air 04/27/22 11:51 Room Air 04/27/22 11:40 Room Air 04/27/22 11:40 Room Air Laboratory Results Short CBC 04/27/22 Range/Units 11:45 WBC 9.57 (4.8-10.8) K/ul Hgb 16.1 (14.0-18.0) g/dl Hct 47.3 (40.1-51.0) % Plt Count 214 (130-400) K/uL BMP 04/27/22 11:45 Sodium 136 Potassium 4.0 Chloride 97 L Carbon Dioxide 31 BUN 20 Creatinine 1.55 H Glucose 195 H Calcium 9.0 Liver Function 04/27/22 Range/Units 11:45 Total Bilirubin 0.6 (0.2-1.0) mg/dl AST 24 (13-39) U/L ALT 22 (7-52) U/L Alkaline Phosphatase 114 H (34-104) U/L Albumin 3.8 (3.4-5.0) gm/dl Diagnostic Findings Cervical Spine CT 04/27/22 11:31 CT OF THE CERVICAL SPINE WITHOUT CONTRAST CLINICAL HISTORY: Fall. COMPARISON STUDY: Cervical spine CT February 01, 2011 and CTA of the neck March 22, 2011. TECHNIQUE: Helical axial images of the cervical spine were obtained without IV contrast. Sagittal and coronal reconstructions were viewed. Automated exposure control was utilized for the study. A dose lowering technique was utilized adhering to the principles of ALARA. FINDINGS: Alignment of the cervical spine is anatomic. Vertebral body heights are maintained. No acute cervical spine fracture or subluxation is present. There is no prevertebral edema. Facet joints are intact. Severe multilevel facet arthrosis is present. There is moderate multilevel disc space narrowing and osteophytosis within the cervical spine. Mild concavity of the superior endplate of C5 is chronic. An acute left humeral neck fracture is noted on plant sprayer image. IMPRESSION: 1. No acute cervical spine fracture or subluxation. 2. Acute left humeral neck fracture noted on plant sprayer image. ACT 112: Negative or not required by law. Electronically signed by: Dieudonne Roy M.D. 04/27/2022 12:[address] 04/27/22 11:31 CT SCAN OF THE BRAIN WITHOUT IV CONTRAST CLINICAL HISTORY: Fall. Head injury. COMPARISON STUDY: CT of the brain dated 09/23/2015. TECHNIQUE: Unenhanced axial CT scan of the brain is performed from the vertex to the skull base. A dose lowering technique was utilized adhering to the principles of ALARA. CT DOSE: 1133.33 mGy.cm FINDINGS: Brain parenchyma: There is age-related involutional change noting [id number] subcortical and periventricular microangiopathic disease. There is no hemorrhage, mass effect, or evidence of acute territorial ischemia by CT criteria. [place]-white matter differentiation is preserved. No extra-axial fluid collection is seen. Ventricles, sulci, cisterns: Prominent secondary to involutional change. Intracranial vasculature: There is atherosclerotic calcification of the cavernous carotid and vertebral arteries. Calvarium: The skeletal structures are osteopenic. No depressed calvarial fracture is seen. Sinuses and mastoids: A 2.3 cm retention cyst is noted in the left maxillary antrum. There is subtotal opacification of the left sphenoid sinus. The remaining visualized paranasal sinuses are clear. The mastoid air cells are well pneumatized. Orbits: The bony orbits are grossly intact. There are bilateral ocular lens implants. IMPRESSION: There is no hemorrhage, mass effect, or evidence of acute territorial ischemia by CT criteria. ACT 112: Negative or not required by law. Electronically signed by: Austin Guaman M.D. 04/27/2022 12:34 PM Humerus X-Ray 04/27/22 11:31 XR humerus LT 2V CLINICAL HISTORY: Left shoulder pain following injury. COMPARISON: Left shoulder radiographs November 23, 2007. FINDINGS: Left subclavian pacer is partially imaged on this exam. There is an acute displaced left humeral neck fracture. Fracture is displaced approximately 1.4 cm. No distal left humeral fracture is noted. Alignment of the left glenohumeral and acromioclavicular joints is anatomic. Moderate AC joint osteoarthritis is present. Alignment of the left elbow is anatomic. IMPRESSION: Acute displaced left humeral neck fracture. ACT 112: Negative or not required by law. Electronically signed by: Dieudonne Roy M.D. 04/27/2022 1:45 PM Chest X-Ray 04/27/22 11:32 XR chest 1V portable CLINICAL HISTORY: fall truama TECHNIQUE: Single frontal radiograph of the chest was obtained. Comparison: Comparison is made to chest radiograph 05/14/2020 FINDINGS: Dual lead pacemaker is seen. Cardiomegaly is noted. The aortic arch is calcifie d. The lungs are clear. No evidence of pleural effusion or pneumothorax. Partial visualization of deformity of the left shoulder, please see dedicated shoulder radiographs for further evaluation. IMPRESSION: No acute chest disease. Please see shoulder radiograph for findings of shoulder fracture. ACT 112: Negative or not required by law. Electronically signed by: Peterson Vela M.D. 04/27/2022 1:37 PM Shoulder X-Ray 04/27/22 13:01 LEFT SHOULDER 2 VIEWS CLINICAL HISTORY: Fall with left shoulder injury. FINDINGS: 2 views of the left shoulder are obtained. No prior studies are available for comparison at the time of dictation. The skeletal structures are osteopenic. There is an impacted and comminuted fracture of the left humeral head and neck. There is offset of the humeral shaft. Overlying soft tissue edema is noted. No additional fracture is seen. The glenohumeral and acromioclavicular joints appear aligned. The left lung parenchyma is clear as visualized. A cardiac pacemaker is seen in the left upper chest. IMPRESSION: Left humeral head/neck fracture as above. Electronically signed by: Austin Guaman M.D. 04/27/2022 1:49 PM Shoulder X-Ray 04/27/22 17:05 XR shoulder LT 1V CLINICAL HISTORY: humeral neck fracture TECHNIQUE: 3 views of the left shoulder were obtained. Comparison: None available at the time of this dictation. FINDINGS/IMPRESSION: Impacted and comminuted fracture of the left humeral head and neck again seen with surrounding soft tissue swelling. A cardiac pacemaker is seen. ACT 112: Negative or not required by law. Electronically signed by: Peterson Vela M.D. 04/27/2022 5:47 PM Supervising Physician Co-Signing Physician Notes Patient is an 86 yr male with history of atrial fibrillation on chronic anticoagulation with Coumadin, coronary artery disease, diabetes mellitus, CHF and other medical problems presents with history of fall resulting in left shoulder pain. Please review HPI for complete details of presentation. Blood work, imaging studies reviewed. Imaging studies suggestive of impacted and comminuted fracture of the left humerus head and neck with surrounding soft tissue swelling. On exam patient is moderately built and nourished, elderly, no apparent distress, normocephalic atraumatic, EOMI, normal breath sounds, clear to auscultation, S1-S2, no murmur, no pedal edema,+ pacemaker, abdomen soft, nontender, normal bowel sounds, alert, awake, oriented, grossly no focal deficits, left upper extremity in sling, decreased range of movement secondary to pain. + Suprapubic catheter. Patient is admitted for management of closed fracture of the left proximal humerus. Orthopedics consulted. Pain control. Conservative management as per orthopedics. On Coumadin for anticoagulation. Monitor INR. Consulted urology as patient is due for supra pubic catheter change. Pacemaker interrogation requested as per patient's request as patient is due for the check. I personally reviewed the record. Patient is interviewed and examined at bedside. Patient's care is coordinated with Anjana Avalos PA-C. Please refer to the documentation above for details of patient's presentation and for discussion of other issues. (1) Coronary artery disease Associated angina: without angina Coronary Disease-Associated Artery/Lesion type: [place] artery [place] vs. transplanted heart: [place] heart Qualified Code(s): I25.10 - Atherosclerotic heart disease of [place] coronary artery without angina pectoris (2) Atrial fibrillation Atrial fibrillation type: unspecified Qualified Code(s): I48.91 - Unspecified atrial fibrillation
[2022-04-27] MEDS ORDERED: MoRPHine SULFATE 2 MG/ML CARP IV PRN ×2 (14:58→16:40)
[2022-04-27] MEDS ORDERED: MoRPHine SULFATE 4 MG/ML 1 ML CARP\\VIAL IV PRN (14:58)
[2022-04-27] MEDS ORDERED: ONDANSETRON INJ 2 MG/ML 2 ML VIAL IV PRN (16:09)
[2022-04-27] MEDS ORDERED: ACETAMINOPHEN 325 MG TAB PO PRN (16:09)
--- NOTE | 2022-04-27 16:39 | Orthopedic Consultation ---
Date of Service April 27, 2022 Assessment & Plan (1) Closed fracture of left proximal humerus: Chart and Radiographs reviewed. Nonoperative proximal humerus fracture. NWBing, Sling x 6 weeks. Repeat L shoulder radiographs in 10-14 days Full consult to follow. History of Present Illness Reason for Consultation: . Requesting Physician: . Attending Physician: Jam Dao MD . Allergies Allergy/AdvReac Type Severity Reaction Status Date / Time sildenafil Allergy Unknown SWELLING Verified 04/27/22 15:43 OF FACE AND HEAD streptomycin Allergy Unknown N/V Verified 04/27/22 15:43 sulfite Allergy Unknown THROAT Verified 04/27/22 15:43 SWELLING nitrofurantoin AdvReac Diarrhea Verified 04/27/22 15:43 Sulfites Allergy Unknown throat Uncoded 04/27/22 15:43 swelling VASODILATORS Allergy Unknown "PERIPHERAL Uncoded 04/27/22 15:43 DILATOR" swelling of face and head Streptomycin Sulfate POWD AdvReac Unknown N/V Uncoded 04/27/22 15:43 Home Medications Medication Instructions Recorded Confirmed Type amiodarone 200 mg tablet 200 mg PO [facility] 01/02/18 04/27/22 History insulin glargine 100 unit/mL 16 units subcut DAILYBB 01/02/18 04/27/22 History subcutaneous solution loratadine 10 mg tablet 10 mg PO QA 01/02/18 04/27/22 History magnesium oxide 400 mg (241.3 mg 400 mg PO QAM 01/02/18 04/27/22 History magnesium) tablet metoprolol succinate 25 mg 25 mg PO QA 01/02/18 04/27/22 History tablet,extended release 24 hr warfarin 2 mg tablet 2 mg PO DAILY 01/02/18 04/27/22 History zolpidem 5 mg tablet (Ambien) 5 mg PO HS PRN Sleep 01/02/18 04/27/22 History gabapentin 300 mg capsule 300 mg PO TID 03/10/18 04/27/22 History mirtazapine 15 mg tablet 15 mg PO HS 03/10/18 04/27/22 History furosemide 20 mg tablet 20 mg PO QAM 10/22/18 04/27/22 History vit C 50 mg-E 15 unit-zinc cit 4.5 1 tab PO QAM 10/22/18 04/27/22 History mg-lutein 2.5 mg-zeaxan chew tablet ([employer]) calcium carb-vit D3-minerals 600 1 tab PO DAILY 04/27/22 04/27/22 History mg calcium-400 unit tablet docusate sodium 100 mg capsule 100 mg PO BID 04/27/22 04/27/22 History (Colace) hydrocodone 5 mg-acetaminophen 325 1 tab PO BID PRN pain,severe 04/27/22 04/27/22 History mg tablet lorazepam 1 mg tablet 1 mg PO HS 04/27/22 04/27/22 History mometasone 0.1 % topical solution 1 applic topical DAILY 04/27/22 04/27/22 History nystatin 100,000 unit/gram topical 1 applic topical TID 04/27/22 04/27/22 History powder (Nystop) Past Med/Surg History Medical History Atrial fibrillation DX 10 YR AGO Chronic systolic CHF (congestive heart failure) Compression fracture of L4 lumbar vertebra HX BROKEN BACK Coronary artery disease Diabetes mellitus type 2 with complications Diabetic neuropathy "PERIPHERAL NEUROPATHY" Dyslipidemia Generalized OA History of anesthesia reaction WITH TESTICULAR SURGERY, [facility] - INCREASED BP & HAD TO STAY OVERNIGHT History of colon cancer HX COLON SURGERY History of hepatitis B History of melanoma HX MELANOMA, HX MULTIPLE SKIN CA & REMOVED History of Mohs micrographic surgery for skin cancer History of prostate cancer History of prostate cancer PROSTATECTOMY History of UTI BLADDER INFECTION 2 WKS AGO/RESOLVED Hypertension Lumbar spinal stenosis Pacemaker "DUAL" - PT NOT SURE BRAND, PLACED D/T AFIB - HAS APPOINTMENT FOR CHECK TODAY AT [facility] Renal failure 3RD STAGE Ulcer of toe REASON FOR UPCOMING PROCEDURE Surgical History H/O prostatectomy History of cardiac cath 12-14 YR AGO, [facility] - CHECKING FOR BLOCKAGE - NO STENTS History of colonoscopy MULTIPLE History of right hemicolectomy History of testicular surgery History of tonsillectomy and adenoidectomy Family History Mother Coronary heart disease Father Heart disease Social History Smoking Status: Never smoker Second Hand Exposure: No; Hx Alcohol Use: Yes (none recently) Alcohol type: wine Hx Substance Use: No Preferred Language: Azerbaijani Communication Ability: Effective Chef Teacher Required: No Beliefs That Will Affect Care: None Current Living Situation: Alone current occupational status: retired Feels Safe at Home: Yes Assistive Devices: Glasses and Wheelchair Review of Systems All systems reviewed & are unremarkable except as noted in HPI & below. Physical Exam . Results & Data Results & Data Laboratory Results . Diagnostic Findings . PG Care Time/CCT Total # of Minutes Spent Total Time Spent with Patient: Total time spent is greater than 50% in coordination of care (as documented) at patient's floor/unit and/or counseling patient: Coding Diagnoses Closed fracture of left proximal humerus S42.G
[2022-04-27] MEDS ORDERED: GLUCAGON FOR INJ 1 MG VIAL SQ PRN (16:43)
[2022-04-27] MEDS ORDERED: GLUCOSE 10 TAB/TUBE PO PRN (16:43)
[2022-04-27] MEDS ORDERED: CARBOHYDRATES FOR HYPOGLYCEMIA PO PRN (16:43)
[2022-04-27] MEDS ORDERED: DEXTROSE 50% 50 ML SYRINGE IV PRN (16:43)
[2022-04-27] MEDS ORDERED: GLUCOSE 40% GEL 15 GM TUBE PO PRN (16:43)
--- NOTE | 2022-04-27 17:04 | Orthopedic Consultation ---
Date of Consultation April 27, 2022 Assessment & Plan (1) Closed fracture of left proximal humerus: Patient was educated regarding today's findings. Thorough discussion was regarding today's findings as well as options for treatment. Current films do not have an ideal AP presentation of the fracture. Additional Grashey view has been ordered. Given the patient's comorbidities, he is not an ideal surgical candidate for fixation. I did discuss this with him. Alignment at this point is reasonable and nonsurgical intervention is likely to give functional results. The patient is highly concerned about his mobility, as he cannot ambulate without using his Rollator. He will need to bear weight on the arm in order to do so. He will likely need placement in a senior care facility for several months until he is able to bear more weight through the arm after fracture healing. He states he was at [facility] for 9 to 10 months after previous back injury. Importance of staying in the sling and not using the shoulder was discussed at length with him. His Coumadin may be continued at this point. Eat at this point and does not require an n.p.o. status. PT and OT eval's can be performed for motion of the wrist and elbow. The shoulder should not be moved at this point. He does take chronic [place] for his back pain. This may be continued for any acute shoulder pain. History of Present Illness Reason for Consultation: Left proximal humeral fracture Attending Physician: Jam Dao MD History of Present Illness This 86-year-old male with history of continue urinary retention, frequent UTIs, history of melanoma, history of diabetes peripheral artery disease, and history of atrial fibrillation as well as CHF, is seen today in the ED, for orthopedic consultation regarding his left humerus. Patient was at home this morning and was walking in his hallway. He does use a Rollator when he ambulates. Patient states he lost his balance and fell backwards, landing on the left arm. There was immediate onset of pain. He did not ambulate after the fall. Patient was evaluated in the ED and found to have a proximal humeral fracture. Examination revealed no other significant injury. Patient denies any other areas of new discomfort. He does have chronic back pain as well as chronic left ankle pain. He denies any elbow or wrist pain. He is currently wearing a sling on the left arm. Allergies Allergy/AdvReac Type Severity Reaction Status Date / Time sildenafil Allergy Unknown SWELLING Verified 04/27/22 15:43 OF FACE AND HEAD streptomycin Allergy Unknown N/V Verified 04/27/22 15:43 sulfite Allergy Unknown THROAT Verified 04/27/22 15:43 SWELLING nitrofurantoin AdvReac Diarrhea Verified 04/27/22 15:43 Sulfites Allergy Unknown throat Uncoded 04/27/22 15:43 swelling VASODILATORS Allergy Unknown "PERIPHERAL Uncoded 04/27/22 15:43 DILATOR" swelling of face and head Streptomycin Sulfate POWD AdvReac Unknown N/V Uncoded 04/27/22 15:43 Home Medications Medication Instructions Recorded Confirmed Type amiodarone 200 mg tablet 200 mg PO QA 01/02/18 04/27/22 History insulin glargine 100 unit/mL 16 units subcut DAILYBB 01/02/18 04/27/22 History subcutaneous solution loratadine 10 mg tablet 10 mg PO [facility] 01/02/18 04/27/22 History magnesium oxide 400 mg (241.3 mg 400 mg PO [facility] 01/02/18 04/27/22 History magnesium) tablet metoprolol succinate 25 mg 25 mg PO [facility] 01/02/18 04/27/22 History tablet,extended release 24 hr warfarin 2 mg tablet 2 mg PO DAILY 01/02/18 04/27/22 History zolpidem 5 mg tablet (Ambien) 5 mg PO HS PRN Sleep 01/02/18 04/27/22 History gabapentin 300 mg capsule 300 mg PO TID 03/10/18 04/27/22 History mirtazapine 15 mg tablet 15 mg PO HS 03/10/18 04/27/22 History furosemide 20 mg tablet 20 mg PO [facility] 10/22/18 04/27/22 History vit C 50 mg-E 15 unit-zinc cit 4.5 1 tab PO QAM 10/22/18 04/27/22 History mg-lutein 2.5 mg-zeaxan chew tablet ([employer] [facility]) calcium carb-vit D3-minerals 600 1 tab PO DAILY 04/27/22 04/27/22 History mg calcium-400 unit tablet docusate sodium 100 mg capsule 100 mg PO BID 04/27/22 04/27/22 History (Colace) hydrocodone 5 mg-acetaminophen 325 1 tab PO BID PRN pain,severe 04/27/22 04/27/22 History mg tablet lorazepam 1 mg tablet 1 mg PO HS 04/27/22 04/27/22 History mometasone 0.1 % topical solution 1 applic topical DAILY PRN Itching 04/27/22 04/27/22 History nystatin 100,000 unit/gram topical 1 applic topical TID 04/27/22 04/27/22 History powder (Nystop) Patient History Medical History Atrial fibrillation DX 10 YR AGO Chronic systolic CHF (congestive heart failure) Compression fracture of L4 lumbar vertebra HX BROKEN BACK Coronary artery disease Diabetes mellitus type 2 with complications Diabetic neuropathy "PERIPHERAL NEUROPATHY" Dyslipidemia Generalized OA History of airway aspiration History of anesthesia reaction WITH TESTICULAR SURGERY, [facility] - INCREASED BP & HAD TO STAY OVERNIGHT History of colon cancer HX COLON SURGERY History of hepatitis B History of melanoma HX MELANOMA, HX MULTIPLE SKIN CA & REMOVED History of Mohs micrographic surgery for skin cancer History of prostate cancer History of prostate cancer PROSTATECTOMY History of UTI BLADDER INFECTION 2 WKS AGO/RESOLVED Hypertension Lumbar spinal stenosis Pacemaker "DUAL" - PT NOT SURE BRAND, PLACED D/T AFIB - HAS APPOINTMENT FOR CHECK TODAY AT [facility] 3RD STAGE Ulcer of toe REASON FOR UPCOMING PROCEDURE Surgical History H/O prostatectomy History of cardiac cath 12-14 YR AGO, [facility] - CHECKING FOR BLOCKAGE - NO STENTS History of colonoscopy MULTIPLE History of right hemicolectomy History of testicular surgery History of tonsillectomy and adenoidectomy Family History Mother Coronary heart disease Father Heart disease Social History Smoking Status: Never smoker Second Hand Exposure: No; Do You Dip or Chew Tobacco: No; Hx Alcohol Use: No Hx Substance Use: No Preferred Language: [place]orese Communication Ability: Effective Patch Washer Required: No Beliefs That Will Affect Care: None Current Living Situation: Alone current occupational status: retired Other Information That Helps Us Care for You: No Feels Safe at Home: Yes Safety Concerns: Feels Safe At This Time Assistive Devices: Walker Assistive Devices Comment: 4 wheel walker Review of Systems Review of Systems: All systems reviewed & are unremarkable except as noted in HPI & below Physical Exam Physical Exam: General: Well-developed, elderly white male, in no acute distress. Laying in bed. Alert and oriented. Conversive. Skin: Warm and dry with fair turgor. No rashes. No ecchymosis present at the left shoulder. Obvious edema. Musculoskeletal: Patient has no current discomfort with palpation over his cervical spine. There is pain with palpation over the left shoulder. Shoulder motion was not attempted. He has no pain with palpation of the distal humerus, elbow,, wrist, or hand. Motor function of the fingers is intact and unremarkable. Motor function of the wrist is also intact and unremarkable. He is able to perform supination and pronation of the elbow as well as gentle flexion extension through a very limited range. Motion of the elbow does cause pain in his proximal humerus. He has no discomfort with palpation over the pelvis, hips, knees, or right ankle. There is discomfort in his left ankle, which is consistent with his baseline. He has a history of previous tib-fib fracture and ankle dysfunction at age 29. Supple motion of both hips and both knees without discomfort. Neurologic: Gross sensation is intact across the lower extremities down to the knees by soft touch. There is graduated peripheral neuropathy in both lower extremities below the knees. He also has intact sensation to the upper extremities by soft touch. Peripheral pulses are 2+. Results & Data ([facility]) Vital Signs (Past 12 Hours) Vital Signs Temp Pulse Pulse Resp BP BP Pulse Ox 04/27/22 16:20 64 16 97 04/27/22 16:20 65 16 120/77 97 04/27/22 16:09 04/27/22 13:35 72 20 131/96 95 04/27/22 11:51 18 98 04/27/22 11:40 65 18 153/81 H 98 04/27/22 11:40 36.6 C 66 18 153/81 H 98 O2 Del Method 04/27/22 16:20 Room Air 04/27/22 16:20 Room Air 04/27/22 16:09 Room Air 04/27/22 13:35 Room Air 04/27/22 11:51 Room Air 04/27/22 11:40 Room Air 04/27/22 11:40 Room Air Diagnostic Findings Radiographic imaging obtained today of the left shoulder and left humerus was read by radiology. Patient has a impacted and comminuted fracture of the left humeral head and neck. There is a moderate onset on the humeral shaft. Bony contact remains. Elbow appears normal on the humeral films. These were reviewed with Dr. Amin as well.
[2022-04-27] MEDS ORDERED: MOMETASONE TOP PRN (17:27)
--- NOTE | 2022-04-27 17:50 | XRay Report ---
XR shoulder LT 1V CLINICAL HISTORY: humeral neck fracture TECHNIQUE: 3 views of the left shoulder were obtained. Comparison: None available at the time of this dictation. FINDINGS/IMPRESSION: Impacted and comminuted fracture of the left humeral head and neck again seen with surrounding soft t issue swelling. A cardiac pacemaker is seen. ACT 112: Negative or not required by law. Electronically signed by: Peterson Vela M.D. 04/27/2022 5:47 PM
[2022-04-27] MEDS: ACETAMINOPHEN 500 MG TAB PO SCH ×2 (17:56→22:46)
[2022-04-27] MEDS: INSULIN ASPART PER UNIT SC SCH ×2 (19:21→22:39)
--- NOTE | 2022-04-27 19:28 | Urology Consultation ---
Date of Consultation April 27, 2022 Assessment & Plan (1) Urinary retention: The patient is being admitted on the hospital service secondary to his fall. Orthopedics has been consulted regarding patient's left humerus fracture. Concerning his chronic indwelling Berman he notes that his schedule be changed t omorrow. Arrangements can be made for him to have patient's Berman catheter changed while he is hospitalized. If needed a urine culture can be sent and patient can be placed on antibiotics if felt clinically appropriate. Supervising Physician Co-Signing Physician Notes Discussed patient with LOGAN. Agree with plan. History of Present Illness Reason for Consultation: History of chronic indwelling Berman Attending Physician: Jam Dao MD History of Present Illness This is an 86-year-old male who presented to the emergency department after suffering a mechanical fall. Patient says that he was walking with a rolling walker when he subsequently lost his balance and fell backward hitting his head. Because this patient presented to the emergency department. He says he does not have any chest or abdominal pain. He does have a mild headache. He does not report any back pain. He does report pain in his left shoulder. In the emergency department patient had labs and imaging which) reviewed. Cervical spine CT showed no acute fractures subluxations and a head CT showed no acute intracranial process. Chest x-ray showed no evidence of pneumonia. Patient did have a humerus x-ray and a shoulder x-ray of the left upper extremity that showed a left humeral head/neck fracture. Patient had labs were CBC revealed white blood cell count, hemoglobin, hematocrit, and platelet count were normal. Chemistry profile showed sodium and potassium are both normal. His BUN was 20 and his creatinine was 1.55. A COVID test was performed and was noted be negative. Coagulation studies were performed and the patient's INR is noted to be 2.3. Urology has been asked to see the patient as he has a history of a chronic indwelling Berman. This patient does have a history of radical prostatectomy performed over 20 years ago. The patient has had a chronic Berman catheter for several years. The patient was noted to have suffered a compression fracture of his back sometime around 2018 and he subsequent developed urinary retention and failed multiple voiding trials. Since that time the patient has had a chronic indwelling Berman and has had his catheter changed on a monthly basis. His most recent Berman change was performed in this early March 2022 and he said he is scheduled to have this catheter changed tomorrow. Concerning the Berman catheter he notes that it is draining appropriately and has not been giving him any problems. At the time of my interview he was resting comfortably in bed and he was in no distress. Allergies Allergy/AdvReac Type Severity Reaction Status Date / Time sildenafil Allergy Unknown SWELLING Verified 04/27/22 15:43 OF FACE AND HEAD streptomycin Allergy Unknown N/V Verified 04/27/22 15:43 sulfite Allergy Unknown THROAT Verified 04/27/22 15:43 SWELLING nitrofurantoin AdvReac Diarrhea Verified 04/27/22 15:43 Sulfites Allergy Unknown throat Uncoded 04/27/22 15:43 swelling VASODILATORS Allergy Unknown "PERIPHERAL Uncoded 04/27/22 15:43 DILATOR" swelling of face and head Streptomycin Sulfate POWD AdvReac Unknown N/V Uncoded 04/27/22 15:43 Home Medications Medication Instructions Recorded Confirmed Type amiodarone 200 mg tablet 200 mg PO QAM 01/02/18 04/27/22 History insulin glargine 100 unit/mL 16 units subcut DAILYBB 01/02/18 04/27/22 History subcutaneous solution loratadine 10 mg tablet 10 mg PO QAM 01/02/18 04/27/22 History magnesium oxide 400 mg (241.3 mg 400 mg PO QAM 01/02/18 04/27/22 History magnesium) tablet metoprolol succinate 25 mg 25 mg PO QAM 01/02/18 04/27/22 History tablet,extended release 24 hr warfarin 2 mg tablet 2 mg PO DAILY 01/02/18 04/27/22 History zolpidem 5 mg tablet (Ambien) 5 mg PO HS PRN Sleep 01/02/18 04/27/22 History gabapentin 300 mg capsule 300 mg PO TID 03/10/18 04/27/22 History mirtazapine 15 mg tablet 15 mg PO HS 03/10/18 04/27/22 History furosemide 20 mg tablet 20 mg PO QAM 10/22/18 04/27/22 History vit C 50 mg-E 15 unit-zinc cit 4.5 1 tab PO QAM 10/22/18 04/27/22 History mg-lutein 2.5 mg-zeaxan chew tablet ([employer]) calcium carb-vit D3-minerals 600 1 tab PO DAILY 04/27/22 04/27/22 History mg calcium-400 unit tablet docusate sodium 100 mg capsule 100 mg PO BID 04/27/22 04/27/22 History (Colace) hydrocodone 5 mg-acetaminophen 325 1 tab PO BID PRN pain,severe 04/27/22 0 04/27/22 History mg tablet lorazepam 1 mg tablet 1 mg PO HS 04/27/22 04/27/22 History mometasone 0.1 % topical solution 1 applic topical DAILY PRN Itching 04/27/22 04/27/22 History nystatin 100,000 unit/gram topical 1 applic topical TID 04/27/22 04/27/22 History powder (Nystop) Patient History Medical History Atrial fibrillation DX 10 YR AGO Chronic systolic CHF (congestive heart failure) Compression fracture of L4 lumbar vertebra HX BROKEN BACK Coronary artery disease Diabetes mellitus type 2 with complications Diabetic neuropathy "PERIPHERAL NEUROPATHY" Dyslipidemia Generalized OA History of airway aspiration History of anesthesia reaction WITH TESTICULAR SURGERY, [facility] - INCREASED BP & HAD TO STAY OVERNIGHT History of colon cancer HX COLON SURGERY History of hepatitis B History of melanoma HX MELANOMA, HX MULTIPLE SKIN CA & REMOVED History of Mohs micrographic surgery for skin cancer History of prostate cancer History of prostate cancer PROSTATECTOMY History of UTI BLADDER INFECTION 2 WKS AGO/RESOLVED Hypertension Lumbar spinal stenosis Pacemaker "DUAL" - PT NOT SURE BRAND, PLACED D/T AFIB - HAS APPOINTMENT FOR CHECK TODAY AT [facility] Renal failure 3RD STAGE Ulcer of toe REASON FOR UPCOMING PROCEDURE Surgical History H/O prostatectomy History of cardiac cath 12-14 YR AGO, [facility] - CHECKING FOR BLOCKAGE - NO STENTS History of colonoscopy MULTIPLE History of right hemicolectomy History of testicular surgery History of tonsillectomy and adenoidectomy Family History Mother Coronary heart disease Father Heart disease Social History Smoking Status: Never smoker Second Hand Exposure: No; Do You Dip or Chew Tobacco: No; Hx Alcohol Use: No Hx Substance Use: No Preferred Language: Sammarinese Communication Ability: Effective Correctional Case Records Supervisor Required: No Beliefs That Will Affect Care: None Current Living Situation: Alone current occupational status: retired Other Information That Helps Us Care for You: No Feels Safe at Home: Yes Safety Concerns: Feels Safe At This Time Assistive Devices: Walker Assistive Devices Comment: 4 wheel walker Review of Systems Constitutional: no fever Eyes: + corrective lenses Ear, Nose, Mouth, Throat: no ear pain Respiratory: no cough Cardiovascular: no chest pain Gastrointestinal: no abdominal pain Genitourinary: + as per Subjective / HPI Musculoskeletal: no back pain Integumentary: no rash Neurologic: no localized weakness Physical Exam Constitutional: WD/WN, vitals as above Eyes: Wears glasses ENMT: Ears: no hearing impairment and no external ear abnormality Mouth: no oropharynx abnormality Neck: trachea midline Respiratory: normal respiratory effort; no respiratory distress and no labored breathing Cardiovascular: Rate/Rhythm: regular rate and regular rhythm Gastrointestinal (Abdomen): Soft and nontender Musculoskeletal: No calf tenderness Skin: no rashes Neurologic: moves all extremities Genitourinary: Berman catheter is in place draining clear yellow urine. The Berman catheter does appear patent Results & Data ([facility]) Vital Signs (Past 12 Hours) Vital Signs Temp Pulse Pulse Resp BP BP Pulse Ox 04/27/22 18:06 65 18 139/82 96 04/27/22 16:20 64 16 97 04/27/22 16:20 65 16 120/77 97 04/27/22 16:09 04/27/22 13:35 72 20 131/96 95 04/27/22 11:51 18 98 04/27/22 11:40 65 18 153/81 H 98 04/27/22 11:40 36.6 C 66 18 153/81 H 98 O2 Del Method 04/27/22 18:06 04/27/22 16:20 Room Air 04/27/22 16:20 Room Air 04/27/22 16:09 Room Air 04/27/22 13:35 Room Air 04/27/22 11:51 Room Air 04/27/22 11:40 Room Air 04/27/22 11:40 Room Air PG Care Time/CCT Total # of Minutes Spent Total Time Spent with Patient: Total time spent is greater than 50% in coordination of care (as documented) at patient's floor/unit and/or counseling patient: Coding Level of Care Code INP/OBS CONSULT LVL 4, 60 MIN Diagnoses Urinary retention R33.9
[2022-04-27] MEDS: oxyCODONE HCL IR 5 MG TAB (IMMEDIATE RELEASE) PO PRN (21:39)
[2022-04-27] MEDS: LANTUS PER UNIT CHARGE SQ SCH (22:41)
[2022-04-27] MEDS: LORazepam 1 MG TAB PO SCH (22:46)
[2022-04-28] MEDS: ZOLPIDEM TARTRATE 5 MG TAB PO PRN ×2 (00:01→22:00)
[2022-04-28] MEDS: ACETAMINOPHEN 500 MG TAB PO SCH ×4 (00:13→21:04)
[2022-04-28] MEDS: MIRTAZAPINE TAB 15 MG TAB PO SCH ×2 (00:39→21:02)
[2022-04-28] MEDS: GABAPENTIN 300 MG CAP PO SCH ×4 (00:39→21:01)
[2022-04-28] MEDS: DOCUSATE SODIUM 100 MG CAP PO SCH ×3 (00:39→20:59)
[2022-04-28] MEDS: NYSTATIN POWDER 15GM BTL EXT SCH ×4 (00:58→21:04)
[2022-04-28] MEDS: oxyCODONE HCL IR 5 MG TAB (IMMEDIATE RELEASE) PO PRN ×4 (03:08→21:07)
[2022-04-28 07:48] LABS: Hemoglobin 13.9 g/dl (14.0-18.0); Mean Corpuscular Hemoglobin 31.8 pg (25.0-34.0); Mean Corpuscular Hgb Conc 33.9 g/dL (32.0-36.0); Mean Corpuscular Volume 93.8 fL (80.0-100.0); Mean Platelet Volume 9.9 fL (9.4-12.4); Platelet Count 198 K/uL (130-400); RDW Coefficient of Variation 13.6 % (11.5-14.5); RDW Standard Deviation 46.4 fL (36.4-46.3); Red Blood Count 4.37 M/uL (4.63-6.08); White Blood Count 11.26 K/ul (4.8-10.8)
[2022-04-28 08:09] LABS: BUN Creatinine Ratio 16.6 (10-20); Creatinine Clr Calc Pharmacy 45.1 ml/min; Est GFR (African American) 50.2 ml/min; Est GFR (Non-African American) 43.3 ml/min; Potassium 4.3 mmol/L (3.5-5.1)
[2022-04-28 08:40] LABS: INR 2.4 (0.9-1.1); Prothrombin Time 24.3 Seconds (9.0-12.0)
[2022-04-28] MEDS: MAGNESIUM OXIDE 400 MG TAB PO SCH (08:46)
[2022-04-28] MEDS: LORATADINE 10 MG TAB PO SCH (08:46)
[2022-04-28] MEDS: AMIODARONE 200 MG TAB PO SCH (08:46)
[2022-04-28] MEDS: METOPROLOL SUCC 25MG EXT REL TAB PO SCH (08:47)
[2022-04-28] MEDS: INSULIN ASPART PER UNIT SC SCH ×4 (09:02→21:01)
[2022-04-28] MEDS: LANTUS PER UNIT CHARGE SQ SCH ×2 (09:03→21:01)
[2022-04-28 10:03] LABS: Estimated Average Glucose 134 mg/dl; Hemoglobin A1C 6.3 % (4.5-5.6)
[2022-04-28] MEDS ORDERED: WATER, STERILE FOR INJ 10 ML VIAL ONE (13:57)
[2022-04-28] MEDS ORDERED: LIDOCAINE 1% LOCAL 20 ML VIAL ONE (13:57)
[2022-04-28] MEDS ORDERED: BUPIVACAINE 0.25% 30 ML VIAL ONE (13:58)
[2022-04-28] MEDS ORDERED: VANCOMYCIN HCL 1000MG/20ML VIAL ONE (13:58)
[2022-04-28] MEDS ORDERED: MIDAZOLAM HCL 5 MG/ML 1 ML VIAL ONE (15:42)
[2022-04-28] MEDS ORDERED: fentaNYL citrate 100 MCG/2 ML VIAL ONE (15:42)
[2022-04-28] MEDS ORDERED: ceFAZolin 330 MG/ML 1 GM VIAL ONE (15:42)
--- NOTE | 2022-04-28 15:46 | Pre Anesthesia Assessment ---
Date of Service April 28, 2022 Pre Sedation Assessment Vital Signs Temp Pulse Pulse Resp BP Pulse Ox O2 Del Method 04/28/22 15:06 36.8 C 65 18 116/71 98 Room Air 04/28/22 08:00 65 04/28/22 11:02 36.5 C 65 18 112/69 97 Room Air 04/28/22 07:36 36.8 C 65 18 134/79 97 Room Air 04/28/22 04:55 36.3 C L 59 L 18 99/59 L 92 Room Air 04/28/22 00:13 36.7 C 63 18 138/73 95 Room Air 04/27/22 23:14 65 04/27/22 22:00 65 04/27/22 22:05 36.9 C 89 14 113/67 94 Room Air 04/27/22 20:00 65 18 108/67 100 Room Air 04/27/22 18:06 65 18 139/82 96 04/27/22 16:20 64 16 97 Room Air 04/27/22 16:20 65 16 120/77 97 Room Air 04/27/22 16:09 Room Air Cardiovascular RRR, no murmur, no edema Respiratory normal respiratory effort, lungs clear to auscultation Pre-Sedation Airway Assessment Smoking Status: Never smoker Hx Sleep Apnea: No Hx Difficult Intubation: No Short, Thick Neck: No Thyromental Distance: < 3.5 Finger Breadths Oral Cavity: + WNL Mallampati Class: II ASA: ASA3 NPO Status Date of Last Intake of Fluids: 04/28/22 Time of Last Intake of Fluids: 08:00 Date of Last Intake of Solid Food: 04/28/22 Time of Last Intake of Solid Foods: 08:00 Procedure Planning Contraindications for Sedation: none Current Medications Reviewed: Yes Notes The planned sedation has been discussed with the patient. Informed Consent was obtained. I have identified the patient, determined the appropriateness of sedation and have assessed the patient immediately prior to the procedure. All medicine(s) and interventions are by my order.
--- NOTE | 2022-04-28 15:48 | History & Physical Bridge Note ---
Date of Service April 28, 2022 History & Physical Bridge Note I have examined the patient, reviewed the History & Physical and in the interval since the performance of the History & Physical I have noted the following changes of clinical significance: pt admitted due to mechanical fall. His pacemaker was interrogated and it was found to be at JESSY so he was recommended a generator change prior to discharge. Pt was explained the risks of the procedure which include but not limited to heart attach, stroke, arrhythmia, , bleeding and infection. He expressed an understanding and consents signed.
--- NOTE | 2022-04-28 16:02 | Hospitalist Progress Note ---
Date of Service April 28, 2022 Assessment & Plan (1) Closed fracture of left proximal humerus: (2) Fall: Plan: Patient is 86-year-old male with PMH atrial fibrillation anticoagulated on warfarin, history of complete heart block s/p pacemaker, CAD, DM II, chronic sy stolic heart failure, CKD III, chronic pain, urinary retention, chronic catheter, history ESBL E. coli, history of aspiration, history of prostate cancer s/p prostatectomy, history of colon cancer s/p right hemicolectomy presented to ER with complaint of mechanical fall and left shoulder pain today. Left humerus x-ray: Acute displaced left humeral neck fracture. -Appreciate ortho input, plan for non surgical management. Will ask for PT/OT evaluation (3) Urinary retention: Plan: History of chronic urinary retention. Chronic catheter Due to have catheter changed by urology on 04/28/2022 Consult urology for catheter change Denies any noted hematuria, fever, chills, abdominal pain. Patient with history ESBL E. coli (4) History of airway aspiration: Plan: Has been followed up with speech therapy outpatient. Recommend patient sitting upright, chin tuck. Thin liquids, applesauce to take pills. Is not on any thickened liquids Aspiration precautions (5) Atrial fibrillation: Plan: Anticoagulated on warfarin INR: 2.4 currently Continue amiodarone, metoprolol succinate, warfarin (6) Coronary artery disease: Plan: Medically managed Continue metoprolol succinate (7) Diabetes mellitus type 2 with complications: Plan: A1c: 6.4 on 12/31/2021 Continue home basal insulin NovoLog sliding scale per protocol A1c in a.m. (8) Chronic systolic heart failure: Plan: 02/11 echo: EF: 45%, grade 1 diastolic dysfunction Resume lasix tomorrow. (9) CKD (chronic kidney disease), stage III: Plan: Cr: 1.4 today. Baseline 1.2-1.3 Avoid nephrotoxic agents when possible (10) Complete heart block: (11) Pacemaker: Plan: Device interrogated and found to be at end of life. Plan for generator change prior to discharge, possibly today. NPO currently (12) Chronic pain: Plan: History of chronic back pain secondary to compression fractures Continue gabapentin. Hold home hydrocodone as receiving different pain management as above (13) History of prostate cancer: Plan: S/p prostatectomy Admission and Anticipated Discharge Date Admission Date: April 27, 2022 Subjective Patient with many questions. Reviewed home medications again with him and added his OTC supplements Physical Exam Physical Exam: No acute distress. Non toxic Respiratory: Breathing comfortably on room air. No wheezing/rhonchi/rales Cardiovascular: Regular rate and rhythm, no murmurs/rubs/gallops Gastrointestinal (Abdomen): Soft, non tender Musculoskeletal: Left arm in sling Results & Data Results & Data ([facility]) Vital Signs (Past 12 Hours) Vital Signs Temp Pulse Pulse Resp BP Pulse Ox O2 Del Method 04/28/22 15:06 36.8 C 65 18 116/71 98 Room Air 04/28/22 08:00 65 04/28/22 11:02 36.5 C 65 18 112/69 97 Room Air 04/28/22 07:36 36.8 C 65 18 134/79 97 Room Air 04/28/22 04:55 36.3 C L 59 L 18 99/59 L 92 Room Air (1) Atrial fibrillation Atrial fibrillation type: unspecified Qualified Code(s): I48.91 - Unspecified atrial fibrillation (2) Coronary artery disease Coronary Disease-Associated Artery/Lesion type: ambler artery [place] vs. transplanted heart: ambler heart Associated angina: without angina Qualified Code(s): I25.10 - Atherosclerotic heart disease of ambler coronary artery without angina pectoris
--- NOTE | 2022-04-28 16:36 | Operative Report ---
Post Operative Report Pre & Post Diagnosis ppm at [facility] Operation Date: 04/28/22 15:00 <No data on this case meets the specified criteria> I identified the patient and participated in the time-out.: Yes Procedure Operation Date: 04/28/22 15:00 Actual Procedures p ICD Gen Change Dual - Wanda Redding DO Surgeon Wanda Redding, DO Label Drier none Estimated Blood Loss 5 Findings Consistent with Post-Op Diagnosis Specimens none Description of Procedure see official report I attest to the content of the Intraoperative Record and any orders documented therein. Any exceptions are noted below.
--- NOTE | 2022-04-28 16:37 | Post Anesthesia Assessment ---
Date of Service April 28, 2022 Post Sedation Assessment Vital Signs Temp Pulse Pulse Resp BP Pulse Ox O2 Del Method 04/28/22 15:06 36.8 C 65 18 116/71 98 Room Air 04/28/22 08:00 65 04/28/22 11:02 36.5 C 65 18 112/69 97 Room Air 04/28/22 07:36 36.8 C 65 18 134/79 97 Room Air 04/28/22 04:55 36.3 C L 59 L 18 99/59 L 92 Room Air 04/28/22 00:13 36.7 C 63 18 138/73 95 Room Air 04/27/22 23:14 65 04/27/22 22:00 65 04/27/22 22:05 36.9 C 89 14 113/67 94 Room Air 04/27/22 20:00 65 18 108/67 100 Room Air 04/27/22 18:06 65 18 139/82 96 Recovery Score Activity: Moves 4 extremities Respiration: Deep Breath/Cough Circulation: +/-20% PreAnes Value Consciousness: Fully Awake Oxygen Saturation: > 92% On Room Air Discharge Sedation Level of Care: Fast Track Phase II Post Sedation Plan On clinical assessment, the patient appears to have tolerated the sedation without complications. Patient is recovering as anticipated. Patient will continue to be monitored by nursing and may be discharged when sedation discharge criteria are met per below protocol. Upon Completions of procedure up to 15 minutes continue every 5 minute vital signs and the P.A.R. score; then discharge to a Phase I or Fast Track to Phase II per the following guidelines: * Discharge Patient to appropriate Phase II area if PAR is 8 or greater or return to pre- procedure baseline. The post - procedure orders will be as directed. * If PAR score is less than 8 or not return to pre-procedure baseline then patient will follow Phase I monitoring till PAR is reached for Phase II. The Phase I may be done in procedure room or may call to secure a Phase I area. * If naloxone or flumazenil are used for reversal, hold in Phase I for continued monitoring from when last reversal dose was given for a minimum of 60 minutes or longer pending the nurse and/or physician discretion of patient condition before discharge to Phase II. Please call the Sedation Physician to re-evaluate and complete post-note for discharge to Phase II area. Do NOT discharge from procedure sedation or Phase 1 until post- sedation evaluation note is complete by procedure /sedation MD Sedation Discharge Instructions to be given to the patient at discharge to home.
[2022-04-28] MEDS: WARFARIN SOD 2 MG TAB PO SCH (17:25)
[2022-04-28] MEDS: CALCIUM 600MG + VIT D 400 IU TAB PO SCH (20:58)
[2022-04-28] MEDS: LORazepam 1 MG TAB PO SCH (21:02)
--- NOTE | 2022-04-28 21:27 | Electrocardiogram Report ---
Test Reason : Blood Pressure : / mmHG Vent. Rate : 065 BPM Atrial Rate : 068 BPM P-R Int : 000 ms QRS Dur : 198 ms QT Int : 528 ms P-R-T Axes : 000 234 066 degrees QTc Int : 549 ms Ventricular-paced rhythm Abnormal ECG When compared with ECG of 10-MAR-2018 16:51, Vent. rate has decreased BY 24 BPM Confirmed by Kirill Jarquin ([id number]) on 04/28/2022 9:27:39 PM Referred By: REFERRED SELF Confirmed By:Kirill Jarquin
[2022-04-29] MEDS: oxyCODONE HCL IR 5 MG TAB (IMMEDIATE RELEASE) PO PRN ×3 (04:25→21:54)
[2022-04-29] MEDS: ACETAMINOPHEN 500 MG TAB PO SCH ×3 (05:02→21:24)
[2022-04-29 06:39] LABS: Hematocrit (blood only) 33.6 % (40.1-51.0); Hemoglobin 11.8 g/dl (14.0-18.0); Mean Corpuscular Hemoglobin 32.3 pg (25.0-34.0); Mean Corpuscular Hgb Conc 35.1 g/dL (32.0-36.0); Mean Corpuscular Volume 92.1 fL (80.0-100.0); Mean Platelet Volume 9.8 fL (9.4-12.4); Platelet Count 165 K/uL (130-400); RDW Coefficient of Variation 13.4 % (11.5-14.5); RDW Standard Deviation 45.4 fL (36.4-46.3); Red Blood Count 3.65 M/uL (4.63-6.08); White Blood Count 13.74 K/ul (4.8-10.8)
[2022-04-29 06:59] LABS: INR 2.7 (0.9-1.1); Prothrombin Time 26.8 Seconds (9.0-12.0)
[2022-04-29 07:05] LABS: BUN Creatinine Ratio 17.8 (10-20); Calcium 7.6 mg/dl (8.5-10.1); Creatinine Clr Calc Pharmacy 37.8 ml/min; Est GFR (African American) 40.3 ml/min; Est GFR (Non-African American) 34.7 ml/min; Potassium 4.5 mmol/L (3.5-5.1)
[2022-04-29] MEDS: CEROVITE ADV FORMULA TAB PO SCH (08:27)
[2022-04-29] MEDS: LORATADINE 10 MG TAB PO SCH (08:27)
[2022-04-29] MEDS: MAGNESIUM OXIDE 400 MG TAB PO SCH (08:28)
[2022-04-29] MEDS: METOPROLOL SUCC 25MG EXT REL TAB PO SCH (08:28)
[2022-04-29] MEDS: AMIODARONE 200 MG TAB PO SCH (08:29)
[2022-04-29] MEDS: GABAPENTIN 300 MG CAP PO SCH ×3 (08:29→21:26)
[2022-04-29] MEDS: DOCUSATE SODIUM 100 MG CAP PO SCH ×2 (08:29→21:26)
[2022-04-29] MEDS: NYSTATIN POWDER 15GM BTL EXT SCH ×3 (08:30→21:27)
[2022-04-29] MEDS: CALCIUM 600MG + VIT D 400 IU TAB PO SCH ×2 (08:30→21:26)
[2022-04-29] MEDS: INSULIN ASPART PER UNIT SC SCH ×4 (08:35→21:24)
[2022-04-29] MEDS: LANTUS PER UNIT CHARGE SQ SCH ×2 (08:36→21:24)
--- NOTE | 2022-04-29 09:10 | Orthopedic Progress Note ---
Date of Service April 29, 2022 Assessment & Plan (1) Closed fracture of left proximal humerus: Plan: Pt continued to be educated on use of the sling and swathe. He is now having pain in the shoulder that has increased since he had been positioned for cardiac procedure, ICD Gen change Dual.I will discuss this with Dr. Amin, I would recommend pt have repeat imaging of the shoulder. Recommend continue to do PT/OT for the Left wrist and elbow if cardiology is okay with him proceeding due to procedure yesterday.. NO motion at the shoulder. He is to remain NWB of the LUE He can continue with oral analgesics for pain control and ice with a towel layer x20min prn. Continue with CM for d/c planning to SNF Present on Admission?: Yes Admission and Anticipated Discharge Date Admission Date: April 27, 2022 Subjective Pt is a 86 y.o male who has the history of a closed left proximal humerus fracture. He was seen bedside sitting upright eating breakfast this am approx 8:40. He states he is having more pain in the left shoulder today. He states that yesterday he had his pacemaker replaced and when he was being positioned his left arm dropped off of the table. He states the pain is 8/10 in the shoulder. He states he is taking oxycodone for the pain which helps. His nurse was present and stated he is due for his pain medication. He denies any paresthesia in the LUE. He denies any CP, SOB, dizziness, fever or chills. Review of Systems Review of Systems: Please refer to H&P Physical Exam Physical Exam: General: Alert and oriented x3 , conversive does not appear to be in any distress. Skin: dressing over the left anterior chest, dry neg for erythema or soiling. Left shoulder and proximal LUE has resolving ecchymosis with edema. At the proximal shoulder there is an area that is soft and tender, most likely a hematoma. Musculoskeletal: LUE is in a sling, swath is not attached, this was repositioned and adjusted to support the left UE. He is able to do AROM of the wrsit and digits w/o any c/o pain or limitations. He reports mild pain in the shoulder with ROM of the elbow. Shoulder motion was not attempted. Left Radial pulse is 2+ Neurologic: Sensation is intact in LUE. Results & Data ([facility]) Vital Signs (Past 12 Hours) Vital Signs Temp Pulse Pulse Resp BP Pulse Ox O2 Del Method 04/29/22 07:42 36.5 C 63 18 114/69 96 Room Air 04/29/22 07:15 64 04/28/22 23:44 36.7 C 60 18 104/64 93 Room Air 04/28/22 22:19 65 04/28/22 22:22 Room Air
--- NOTE | 2022-04-29 11:07 | XRay Report ---
XR shoulder LT min 2V routine CLINICAL HISTORY: hx of proximal humerus fracture, increased pain COMPARISON STUDY: Left shoulder 04/27/2022. FINDINGS: There is no significant change in the slightly impacted, comminuted, and displaced left hum eral neck fracture. No dislocation. There is a left-sided pacemaker again noted. Soft tissue swelling within the left shoulder persist. IMPRESSION: There is no significant change in the slightly impacted, comminuted, and displaced left humeral neck fracture. ACT 112: Negative or not required by law. Electronically signed by: Dennis Blank M.D. 04/29/2022 11:05 AM
--- NOTE | 2022-04-29 18:53 | Hospitalist Progress Note ---
Date of Service April 29, 2022 Assessment & Plan (1) Closed fracture of left proximal humerus: (2) Fall: Plan: Patient is 86-year-old male with PMH atrial fibrillation anticoagulated on warfarin, history of complete heart block s/p pacemaker, CAD, DM II, chronic sy stolic heart failure, CKD III, chronic pain, urinary retention, chronic catheter, history ESBL E. coli, history of aspiration, history of prostate cancer s/p prostatectomy, history of colon cancer s/p right hemicolectomy presented to ER with complaint of mechanical fall and left shoulder pain today. Left humerus x-ray: Acute displaced left humeral neck fracture. -Appreciate ortho input, plan for non surgical management. Will ask for PT/OT evaluation (3) Urinary retention: Plan: History of chronic urinary retention. Chronic catheter Due to have catheter changed by urology on 04/28/2022 Consult urology for catheter change. Per Urology, terry can be changed by nursing staff and order was placed Denies any noted hematuria, fever, chills, abdominal pain. Patient with history ESBL E. coli (4) History of airway aspiration: Plan: Has been followed up with speech therapy outpatient. Recommend patient sitting upright, chin tuck. Thin liquids, applesauce to take pills. Is not on any thickened liquids Aspiration precautions (5) Atrial fibrillation: Plan: Anticoagulated on warfarin Continue amiodarone, metoprolol succinate Warfarin on hold currently per EP recommendations for the significant bruising of left arm. Will continue to monitor (6) Coronary artery disease: Plan: Medically managed Continue metoprolol succinate (7) Diabetes mellitus type 2 with complications: Plan: A1c: 6.4 on 12/31/2021 Continue home basal insulin NovoLog sliding scale per protocol A1c in a.m. (8) Chronic systolic heart failure: Plan: 02/11 echo: EF: 45%, grade 1 diastolic dysfunction Initial plan to resume lasix today but Cr elevated again. Continue to hold Lasix (9) CKD (chronic kidney disease), stage III: Plan: Cr: 1.4 today. Baseline 1.2-1.3 Avoid nephrotoxic agents when possible ALISSA on CKD. Continue to hold lasix (10) Complete heart block: (11) Pacemaker: Plan: Device interrogated and found to be at end of life. Generator changed yesterday (12) Chronic pain: Plan: History of chronic back pain secondary to compression fractures Continue gabapentin. Hold home hydrocodone as receiving different pain management as above (13) History of prostate cancer: Plan: S/p prostatectomy Plan Disposition- Will need SNF at discharge Admission and Anticipated Discharge Date Admission Date: April 27, 2022 Subjective Patient reports yesterday during his generator exchange, his left arm fell off the table Continues to have 8/10 pain Physical Exam Physical Exam: No acute distress, non toxic ENMT: Normocephalic, atraumatic Respiratory: breathing comfortably on room air, no accessory muscle use Cardiovascular: Regular rhythm Gastrointestinal (Abdomen): soft, non tender, non distended Musculoskeletal: Left arm with significant bruising/ecchymosis Neurologic: awake, alert Results & Data Results & Data ([facility]) Vital Signs (Past 12 Hours) Vital Signs Temp Pulse Pulse Resp BP Pulse Ox O2 Del Method 04/29/22 16:59 36.7 C 60 18 119/72 94 Room Air 04/29/22 15:07 66 04/29/22 11:42 36.6 C 60 18 127/75 96 Room Air 04/29/22 07:42 36.5 C 63 18 114/69 96 Room Air 04/29/22 07:15 64 (1) Atrial fibrillation Atrial fibrillation type: unspecified Qualified Code(s): I48.91 - Unspecified atrial fibrillation (2) Coronary artery disease Coronary Disease-Associated Artery/Lesion type: [place] artery [place] vs. transplanted heart: [place] heart Associated angina: without angina Qualified Code(s): I25.10 - Atherosclerotic heart disease of [place] coronary artery without angina pectoris
[2022-04-29] MEDS: MIRTAZAPINE TAB 15 MG TAB PO SCH (21:24)
[2022-04-29] MEDS: LORazepam 1 MG TAB PO SCH (21:25)
[2022-04-29] MEDS: ZOLPIDEM TARTRATE 5 MG TAB PO PRN (22:50)
[2022-04-30] MEDS: oxyCODONE HCL IR 5 MG TAB (IMMEDIATE RELEASE) PO PRN ×2 (03:09→21:15)
[2022-04-30] MEDS: ACETAMINOPHEN 500 MG TAB PO SCH ×3 (05:59→22:36)
[2022-04-30 08:53] LABS: Hematocrit (blood only) 32.5 % (40.1-51.0); Hemoglobin 11.6 g/dl (14.0-18.0); Mean Corpuscular Hemoglobin 32.4 pg (25.0-34.0); Mean Corpuscular Hgb Conc 35.7 g/dL (32.0-36.0); Mean Corpuscular Volume 90.8 fL (80.0-100.0); Platelet Count 167 K/uL (130-400); RDW Coefficient of Variation 13.5 % (11.5-14.5); RDW Standard Deviation 44.6 fL (36.4-46.3); Red Blood Count 3.58 M/uL (4.63-6.08)
[2022-04-30] MEDS: LORATADINE 10 MG TAB PO SCH (08:54)
[2022-04-30] MEDS: AMIODARONE 200 MG TAB PO SCH (08:55)
[2022-04-30] MEDS: CALCIUM 600MG + VIT D 400 IU TAB PO SCH ×2 (08:55→21:17)
[2022-04-30] MEDS: MAGNESIUM OXIDE 400 MG TAB PO SCH (08:55)
[2022-04-30] MEDS: CEROVITE ADV FORMULA TAB PO SCH (08:56)
[2022-04-30] MEDS: DOCUSATE SODIUM 100 MG CAP PO SCH ×2 (08:56→21:17)
[2022-04-30] MEDS: METOPROLOL SUCC 25MG EXT REL TAB PO SCH (08:56)
[2022-04-30] MEDS: GABAPENTIN 300 MG CAP PO SCH ×3 (08:57→21:17)
[2022-04-30] MEDS ORDERED: PHARMACY GLYCEMIC MGMT CONSULT PRN (09:01)
[2022-04-30 09:04] LABS: INR 1.9 (0.9-1.1); Prothrombin Time 19.9 Seconds (9.0-12.0)
[2022-04-30] MEDS: POLYETHYLENE (MIRALAX) 17 GM PACK PO PRN (09:08)
[2022-04-30 09:17] LABS: Calcium 7.8 mg/dl (8.5-10.1); Creatinine Clr Calc Pharmacy 51.8 ml/min; Est GFR (African American) 58.9 ml/min; Est GFR (Non-African American) 50.8 ml/min; Potassium 4.1 mmol/L (3.5-5.1)
[2022-04-30] MEDS: INSULIN ASPART PER UNIT SC SCH ×4 (10:03→21:15)
[2022-04-30] MEDS: LANTUS PER UNIT CHARGE SQ SCH ×3 (10:14→21:15)
--- NOTE | 2022-04-30 11:29 | Hospitalist Progress Note ---
Date of Service April 30, 2022 Assessment & Plan (1) Closed fracture of left proximal humerus: (2) Fall: Plan: Patient is 86-year-old male with PMH atrial fibrillation anticoagulated on warfarin, history of complete heart block s/p pacemaker, CAD, DM II, chronic sy stolic heart failure, CKD III, chronic pain, urinary retention, chronic catheter, history ESBL E. coli, history of aspiration, history of prostate cancer s/p prostatectomy, history of colon cancer s/p right hemicolectomy presented to ER with complaint of mechanical fall and left shoulder pain Left humerus x-ray: Acute displaced left humeral neck fracture. -Appreciate ortho input, plan for non surgical management. Evaluated by PT/OT and recommended SNF. -Non weight bearing of left arm (3) Urinary retention: Plan: History of chronic urinary retention. Chronic catheter Due to have catheter changed by urology on 04/28/2022 Consult urology for catheter change. Per Urology, terry can be changed by nursing staff and order was placed Denies any noted hematuria, fever, chills, abdominal pain. Patient with history ESBL E. coli (4) History of airway aspiration: Plan: Has been followed up with speech therapy outpatient. Recommend patient sitting upright, chin tuck. Thin liquids, applesauce to take pills. Is not on any thickened liquids Aspiration precautions (5) Atrial fibrillation: Plan: Continue amiodarone, metoprolol succinate Warfarin on hold currently per EP recommendations for the significant bruising of left arm. Will continue to monitor (6) Coronary artery disease: Plan: Medically managed Continue metoprolol succinate (7) Diabetes mellitus type 2 with complications: Plan: A1c: 6.4 on 12/31/2021 Continue home basal insulin NovoLog sliding scale per protocol A1c in a.m. (8) Chronic systolic heart failure: Plan: 02/11 echo: EF: 45%, grade 1 diastolic dysfunction resume lasix 20mg daily (9) CKD (chronic kidney disease), stage III: Plan: Cr: 1.4 today. Baseline 1.2-1.3 Avoid nephrotoxic agents when possible ALISSA on CKD. Cr now back to baseline, can resume lasix (10) Complete heart block: (11) Pacemaker: Plan: Device interrogated and found to be at end of life. Generator changed 04/28 (12) Chronic pain: Plan: History of chronic back pain secondary to compression fractures Continue gabapentin. Hold home hydrocodone as receiving different pain management as above (13) History of prostate cancer: Plan: S/p prostatectomy Plan Disposition- Will need SNF at discharge Admission and Anticipated Discharge Date Admission Date: April 27, 2022 Subjective Left arm pain is improved Patient with concerns about his insulin, we had a long discussion about this. His diet here is different from home so we have reduced his lantus to 6 units BID. He is also concerned about his impending colonoscopy. He has not had a BM in past 6 days, today received a miralax. Agrees to a suppository end of the day if still no BM Physical Exam Physical Exam: Pleasant, comfortable, no acute distress Respiratory: Breathing comfortably on room air, no wheezing/rhonchi/rales Cardiovascular: Regular rate and rhythm, no murmurs/rubs/gallops Gastrointestinal (Abdomen): soft, non tender, hyperactive Musculoskeletal: Left arm in sling, left arm with significant bruising Results & Data Results & Data ([facility]) Vital Signs (Past 12 Hours) Vital Signs Temp Pulse Pulse Resp BP Pulse Ox O2 Del Method 04/30/22 07:59 36.9 C 60 18 144/75 H 93 Room Air 04/30/22 07:30 60 04/30/22 02:58 36.8 C 61 18 138/74 99 Room Air 04/29/22 23:52 36.8 C 62 18 128/70 92 Room Air (1) Atrial fibrillation Atrial fibrillation type: unspecified Qualified Code(s): I48.91 - Unspecified atrial fibrillation (2) Coronary artery disease Coronary Disease-Associated Artery/Lesion type: [place] artery [place] vs. transplanted heart: [place] heart Associated angina: without angina Qualified Code(s): I25.10 - Atherosclerotic heart disease of [place] coronary artery without angina pectoris
[2022-04-30] MEDS ORDERED: bisacodyL 10 MG SUPP PR PRN (15:00)
[2022-04-30] MEDS: NYSTATIN POWDER 15GM BTL EXT SCH ×3 (15:16→21:18)
[2022-04-30] MEDS ORDERED: WARFARIN SOD 1 MG TAB PO SCH (16:00)
[2022-04-30] MEDS ORDERED: LANTUS PER UNIT CHARGE SQ SCH (21:00)
[2022-04-30] MEDS: LORazepam 1 MG TAB PO SCH (21:16)
[2022-04-30] MEDS: MIRTAZAPINE TAB 15 MG TAB PO SCH (21:17)
[2022-04-30] MEDS: ZOLPIDEM TARTRATE 5 MG TAB PO PRN (22:36)
[2022-05-01] MEDS ORDERED: ACETAMINOPHEN 325 MG TAB PO STA (00:16)
[2022-05-01 06:38] LABS: Hematocrit (blood only) 30.8 % (40.1-51.0); Hemoglobin 10.9 g/dl (14.0-18.0); Mean Corpuscular Hemoglobin 32.1 pg (25.0-34.0); Mean Corpuscular Hgb Conc 35.4 g/dL (32.0-36.0); Mean Corpuscular Volume 90.6 fL (80.0-100.0); Platelet Count 182 K/uL (130-400); RDW Coefficient of Variation 13.3 % (11.5-14.5); RDW Standard Deviation 43.6 fL (36.4-46.3); White Blood Count 10.53 K/ul (4.8-10.8)
[2022-05-01 06:56] LABS: INR 1.5 (0.9-1.1); Prothrombin Time 16.1 Seconds (9.0-12.0)
[2022-05-01 07:09] LABS: BUN Creatinine Ratio 24.4 (10-20); Calcium 7.9 mg/dl (8.5-10.1); Creatinine Clr Calc Pharmacy 55.2 ml/min; Est GFR (African American) 63.7 ml/min; Potassium 4.8 mmol/L (3.5-5.1)
[2022-05-01] MEDS: INSULIN ASPART PER UNIT SC SCH ×4 (08:49→21:33)
[2022-05-01] MEDS: LANTUS PER UNIT CHARGE SQ SCH ×2 (08:50→21:33)
[2022-05-01] MEDS: POLYETHYLENE (MIRALAX) 17 GM PACK PO PRN (08:56)
[2022-05-01] MEDS: DOCUSATE SODIUM 100 MG CAP PO SCH ×2 (08:56→21:32)
[2022-05-01] MEDS: CALCIUM 600MG + VIT D 400 IU TAB PO SCH ×2 (08:56→21:32)
[2022-05-01] MEDS: CEROVITE ADV FORMULA TAB PO SCH (08:57)
[2022-05-01] MEDS: AMIODARONE 200 MG TAB PO SCH (08:57)
[2022-05-01] MEDS: METOPROLOL SUCC 25MG EXT REL TAB PO SCH (08:57)
[2022-05-01] MEDS: LORATADINE 10 MG TAB PO SCH (08:57)
[2022-05-01] MEDS: MAGNESIUM OXIDE 400 MG TAB PO SCH (08:57)
[2022-05-01] MEDS: GABAPENTIN 300 MG CAP PO SCH ×3 (08:57→21:32)
[2022-05-01] MEDS: FUROSEMIDE 20 MG TAB PO SCH (08:58)
[2022-05-01] MEDS: ACETAMINOPHEN 500 MG TAB PO SCH ×4 (09:03→21:31)
[2022-05-01] MEDS: NYSTATIN POWDER 15GM BTL EXT SCH ×3 (14:55→21:33)
--- NOTE | 2022-05-01 15:27 | Hospitalist Progress Note ---
Date of Service May 01, 2022 Assessment & Plan (1) Closed fracture of left proximal humerus: (2) Fall: Plan: Patient is 86-year-old male with PMH atrial fibrillation anticoagulated on warfarin, history of complete heart block s/p pacemaker, CAD, DM II, chronic sy stolic heart failure, CKD III, chronic pain, urinary retention, chronic catheter, history ESBL E. coli, history of aspiration, history of prostate cancer s/p prostatectomy, history of colon cancer s/p right hemicolectomy presented to ER with complaint of mechanical fall and left shoulder pain Left humerus x-ray: Acute displaced left humeral neck fracture. -Appreciate ortho input, plan for non surgical management. Evaluated by PT/OT and recommended SNF. -Non weight bearing of left arm (3) Urinary retention: Plan: History of chronic urinary retention. Chronic catheter Due to have catheter changed by urology on 04/28/2022 Denies any noted hematuria, fever, chills, abdominal pain. Patient with history ESBL E. coli Berman catheter changed while here (4) History of airway aspiration: Plan: Has been followed up with speech therapy outpatient. Recommend patient sitting upright, chin tuck. Thin liquids, applesauce to take pills. Is not on any thickened liquids Aspiration precautions (5) Atrial fibrillation: Plan: Continue amiodarone, metoprolol succinate Warfarin on hold currently per EP recommendations for the significant bruising of left arm. Bruising is subsiding although H/H is downtrending. Will continue to hold coumadin for now (6) Coronary artery disease: Plan: Medically managed Continue metoprolol succinate (7) Diabetes mellitus type 2 with complications: Plan: A1c: 6.4 on 12/31/2021 Continue home basal insulin NovoLog sliding scale per protocol A1c in a.m. (8) Chronic systolic heart failure: Plan: 02/11 echo: EF: 45%, grade 1 diastolic dysfunction lasix 20mg daily resumed today (9) CKD (chronic kidney disease), stage III: Plan: Cr: 1.4 today. Baseline 1.2-1.3 Avoid nephrotoxic agents when possible ALISSA on CKD. Cr now back to baseline (10) Complete heart block: (11) Pacemaker: Plan: Device interrogated and found to be at end of life. Generator changed 04/28 (12) Chronic pain: Plan: History of chronic back pain secondary to compression fractures Continue gabapentin. Hold home hydrocodone as receiving different pain management as above (13) History of prostate cancer: Plan: S/p prostatectomy Plan Disposition- Will need SNF at discharge Admission and Anticipated Discharge Date Admission Date: April 27, 2022 Subjective Has not slept well in past several days Yesterday had a large BM after his miralax and suppository This morning woke up and was somewhat confused but that has since resolved Denies chest pain, shortness of breath, arm pain Physical Exam Physical Exam: Appears drowsy, pleasant, comfortable Respiratory: Breathing comfortably on room air, diminished at bases, no wheezing Cardiovascular: Regular rate and rhythm, no murmurs/rubs/gallops Gastrointestinal (Abdomen): soft Musculoskeletal: Left arm in sling, left arm bruising is subsiding Results & Data Results & Data ([facility]) Vital Signs (Past 12 Hours) Vital Signs Temp Pulse Pulse Resp BP Pulse Ox O2 Del Method 05/01/22 15:10 36.9 C 59 L 18 127/73 96 Room Air 05/01/22 11:18 36.5 C 78 18 130/79 95 Room Air 05/01/22 07:26 63 05/01/22 06:35 36.5 C 64 18 158/70 H 94 Room Air 05/01/22 03:56 37 C 73 20 158/70 H 95 Room Air (1) Atrial fibrillation Atrial fibrillation type: unspecified Qualified Code(s): I48.91 - Unspecified atrial fibrillation (2) Coronary artery disease Coronary Disease-Associated Artery/Lesion type: [place] artery [place] vs. transplanted heart: [place] heart Associated angina: without angina Qualified Code(s): I25.10 - Atherosclerotic heart disease of [place] coronary artery without angina pectoris
[2022-05-01] MEDS: MIRTAZAPINE TAB 15 MG TAB PO SCH (21:32)
[2022-05-01] MEDS: LORazepam 1 MG TAB PO SCH (21:32)
[2022-05-01] MEDS: ZOLPIDEM TARTRATE 5 MG TAB PO PRN (23:34)
[2022-05-01] MEDS: oxyCODONE HCL IR 5 MG TAB (IMMEDIATE RELEASE) PO PRN (23:34)
[2022-05-02] MEDS: ACETAMINOPHEN 500 MG TAB PO SCH ×3 (05:49→21:20)
[2022-05-02 07:26] LABS: Hematocrit (blood only) 29.5 % (40.1-51.0); Hemoglobin 10.4 g/dl (14.0-18.0); Mean Corpuscular Hemoglobin 32.4 pg (25.0-34.0); Mean Corpuscular Hgb Conc 35.3 g/dL (32.0-36.0); Mean Corpuscular Volume 91.9 fL (80.0-100.0); Mean Platelet Volume 9.8 fL (9.4-12.4); Platelet Count 176 K/uL (130-400); RDW Coefficient of Variation 13.4 % (11.5-14.5); Red Blood Count 3.21 M/uL (4.63-6.08); White Blood Count 7.15 K/ul (4.8-10.8)
[2022-05-02 07:34] LABS: INR 1.4 (0.9-1.1); Prothrombin Time 14.5 Seconds (9.0-12.0)
[2022-05-02 07:46] LABS: BUN Creatinine Ratio 25.5 (10-20); Calcium 7.8 mg/dl (8.5-10.1); Est GFR (African American) 73.3 ml/min; Est GFR (Non-African American) 63.2 ml/min; Magnesium 1.9 mg/dl (1.7-2.4)
[2022-05-02] MEDS: DOCUSATE SODIUM 100 MG CAP PO SCH ×2 (08:17→20:09)
[2022-05-02] MEDS: CALCIUM 600MG + VIT D 400 IU TAB PO SCH ×2 (08:17→20:09)
[2022-05-02] MEDS: MAGNESIUM OXIDE 400 MG TAB PO SCH (08:18)
[2022-05-02] MEDS: LORATADINE 10 MG TAB PO SCH (08:18)
[2022-05-02] MEDS: CEROVITE ADV FORMULA TAB PO SCH (08:18)
[2022-05-02] MEDS: GABAPENTIN 300 MG CAP PO SCH ×3 (08:18→20:09)
[2022-05-02] MEDS: AMIODARONE 200 MG TAB PO SCH (08:18)
[2022-05-02] MEDS: METOPROLOL SUCC 25MG EXT REL TAB PO SCH (08:18)
[2022-05-02] MEDS: FUROSEMIDE 20 MG TAB PO SCH (08:19)
[2022-05-02] MEDS: INSULIN ASPART PER UNIT SC SCH ×4 (08:27→21:30)
[2022-05-02] MEDS: LANTUS PER UNIT CHARGE SQ SCH ×2 (08:31→21:20)
[2022-05-02] MEDS: NYSTATIN POWDER 15GM BTL EXT SCH ×3 (08:50→21:09)
--- NOTE | 2022-05-02 18:58 | Hospitalist Progress Note ---
Date of Service May 02, 2022 Assessment & Plan (1) Closed fracture of left proximal humerus: (2) Fall: Plan: Patient is 86-year-old male with PMH atrial fibrillation anticoagulated on warfarin, history of complete heart block s/p pacemaker, CAD, DM II, chronic sy stolic heart failure, CKD III, chronic pain, urinary retention, chronic catheter, history ESBL E. coli, history of aspiration, history of prostate cancer s/p prostatectomy, history of colon cancer s/p right hemicolectomy presented to ER with complaint of mechanical fall and left shoulder pain Left humerus x-ray: Acute displaced left humeral neck fracture. -Appreciate ortho input, plan for non surgical management. Evaluated by PT/OT and recommended SNF. -Non weight bearing of left arm (3) Urinary retention: Plan: History of chronic urinary retention. Chronic catheter Due to have catheter changed by urology on 04/28/2022 Denies any noted hematuria, fever, chills, abdominal pain. Patient with history ESBL E. coli Berman catheter changed while here (4) History of airway aspiration: Plan: Has been followed up with speech therapy outpatient. Recommend patient sitting upright, chin tuck. Thin liquids, applesauce to take pills. Is not on any thickened liquids Aspiration precautions (5) Atrial fibrillation: Plan: Continue amiodarone, metoprolol succinate Warfarin on hold currently per EP recommendations for the significant bruising of left arm. Bruising is much improved. Will resume coumadin (6) Coronary artery disease: Plan: Medically managed Continue metoprolol succinate (7) Diabetes mellitus type 2 with complications: Plan: A1c: 6.4 on 12/31/2021 Continue home basal insulin NovoLog sliding scale per protocol A1c in a.m. (8) Chronic systolic heart failure: Plan: 02/11 echo: EF: 45%, grade 1 diastolic dysfunction lasix 20mg daily resumed 05/01 (9) CKD (chronic kidney disease), stage III: Plan: Cr: 1.4 today. Baseline 1.2-1.3 Avoid nephrotoxic agents when possible ALISSA on CKD. Cr now back to baseline (10) Complete heart block: (11) Pacemaker: Plan: Device interrogated and found to be at end of life. Generator changed 04/28 (12) Chronic pain: Plan: History of chronic back pain secondary to compression fractures Continue gabapentin. Hold home hydrocodone as receiving different pain management as above (13) History of prostate cancer: Plan: S/p prostatectomy Plan Disposition- Will need SNF at discharge Admission and Anticipated Discharge Date Admission Date: April 27, 2022 Subjective Reports left arm pain/swelling is improved. No BM again in past 2 days (since he last had the dulcolax), agreeable for dulcolax MI and miralax tomorrow morning Tolerating diet Physical Exam Physical Exam: Appears well, no acute distress, eating dinner currently Respiratory: Breathing comfortably on room air, no wheezing/rhonchi/rales Cardiovascular: Regular rate and rhythm, no murmurs/rubs/gallops Gastrointestinal (Abdomen): soft, non tender, non distended Musculoskeletal: Left arm bruising is markedly improved Neurologic: awake, alert, spontaneously moving extremities Results & Data Results & Data ([facility]) Vital Signs (Past 12 Hours) Vital Signs Temp Pulse Pulse Resp BP Pulse Ox O2 Del Method 05/02/22 14:39 61 05/02/22 15:44 36.7 C 60 18 131/70 97 Room Air 05/02/22 11:45 36.2 C L 50 L 18 107/55 L 97 Room Air (1) Atrial fibrillation Atrial fibrillation type: unspecified Qualified Code(s): I48.91 - Unspecified atrial fibrillation (2) Coronary artery disease Coronary Disease-Associated Artery/Lesion type: [place] artery [place] vs. transplanted heart: [place] heart Associated angina: without angina Qualified Code(s): I25.10 - Atherosclerotic heart disease of [place] coronary artery without angina pectoris
[2022-05-02] MEDS: MIRTAZAPINE TAB 15 MG TAB PO SCH (20:09)
[2022-05-02] MEDS: LORazepam 1 MG TAB PO SCH (20:09)
[2022-05-02] MEDS: ZOLPIDEM TARTRATE 5 MG TAB PO PRN (22:37)
[2022-05-03] MEDS: ACETAMINOPHEN 500 MG TAB PO SCH ×3 (05:15→22:00)
[2022-05-03 06:42] LABS: Hematocrit (blood only) 29.5 % (40.1-51.0); Hemoglobin 10.4 g/dl (14.0-18.0); Mean Corpuscular Hemoglobin 31.9 pg (25.0-34.0); Mean Corpuscular Hgb Conc 35.3 g/dL (32.0-36.0); Mean Corpuscular Volume 90.5 fL (80.0-100.0); Mean Platelet Volume 9.5 fL (9.4-12.4); Platelet Count 207 K/uL (130-400); RDW Coefficient of Variation 13.5 % (11.5-14.5); Red Blood Count 3.26 M/uL (4.63-6.08); White Blood Count 8.24 K/ul (4.8-10.8)
[2022-05-03 07:11] LABS: INR 1.2 (0.9-1.1); Prothrombin Time 13.1 Seconds (9.0-12.0)
[2022-05-03] MEDS: INSULIN ASPART PER UNIT SC SCH ×4 (08:25→21:40)
[2022-05-03] MEDS: LANTUS PER UNIT CHARGE SQ SCH ×2 (08:25→21:40)
[2022-05-03] MEDS: AMIODARONE 200 MG TAB PO SCH (08:28)
[2022-05-03] MEDS: GABAPENTIN 300 MG CAP PO SCH ×3 (08:28→21:33)
[2022-05-03] MEDS: CALCIUM 600MG + VIT D 400 IU TAB PO SCH ×2 (08:29→21:33)
[2022-05-03] MEDS: MAGNESIUM OXIDE 400 MG TAB PO SCH (08:29)
[2022-05-03] MEDS: FUROSEMIDE 20 MG TAB PO SCH (08:30)
[2022-05-03] MEDS: LORATADINE 10 MG TAB PO SCH (08:30)
[2022-05-03] MEDS: CEROVITE ADV FORMULA TAB PO SCH (08:30)
[2022-05-03] MEDS: METOPROLOL SUCC 25MG EXT REL TAB PO SCH (08:30)
[2022-05-03] MEDS: NYSTATIN POWDER 15GM BTL EXT SCH ×3 (08:31→21:33)
[2022-05-03] MEDS: DOCUSATE SODIUM 100 MG CAP PO SCH ×2 (08:31→21:33)
[2022-05-03] MEDS ORDERED: bisacodyL 10 MG SUPP PR ONE (09:00)
--- NOTE | 2022-05-03 11:34 | Hospitalist Progress Note ---
Date of Service May 03, 2022 Assessment & Plan (1) Closed fracture of left proximal humerus: (2) Fall: Plan: Patient is 86-year-old male with PMH atrial fibrillation anticoagulated on warfarin, history of complete heart block s/p pacemaker, CAD, DM II, chronic s ystolic heart failure, CKD III, chronic pain, urinary retention, chronic catheter, history ESBL E. coli, history of aspiration, history of prostate cancer s/p prostatectomy, history of colon cancer s/p right hemicolectomy presented to ER with complaint of mechanical fall and left shoulder pain Left humerus x-ray: Acute displaced left humeral neck fracture. -Appreciate ortho input, plan for non surgical management. Evaluated by PT/OT and recommended SNF. -Non weight bearing of left arm (3) Urinary retention: Plan: History of chronic urinary retention. Chronic catheter Due to have catheter changed by urology on 04/28/2022 Denies any noted hematuria, fever, chills, abdominal pain. Patient with history ESBL E. coli Berman catheter changed while here (4) History of airway aspiration: Plan: Has been followed up with speech therapy outpatient. Recommend patient sitting upright, chin tuck. Thin liquids, applesauce to take pills. Is not on any thickened liquids Aspiration precautions (5) Atrial fibrillation: Plan: Continue amiodarone, metoprolol succinate Warfarin on hold currently per EP recommendations for the significant bruising of left arm. Bruising is much improved. Will resume coumadin INR 1.2 today. Give extra 3mg today (total 5mg now) (6) Coronary artery disease: Plan: Medically managed Continue metoprolol succinate (7) Diabetes mellitus type 2 with complications: Plan: A1c: 6.4 on 12/31/2021 Continue home basal insulin NovoLog sliding scale per protocol A1c in a.m. (8) Chronic systolic heart failure: Plan: 02/11 echo: EF: 45%, grade 1 diastolic dysfunction lasix 20mg daily resumed 05/01 (9) CKD (chronic kidney disease), stage III: Plan: Cr: 1.4 today. Baseline 1.2-1.3 Avoid nephrotoxic agents when possible ALISSA on CKD. Cr now back to baseline (10) Complete heart block: (11) Pacemaker: Plan: Device interrogated and found to be at end of life. Generator changed 04/28 (12) Chronic pain: Plan: History of chronic back pain secondary to compression fractures Continue gabapentin. Hold home hydrocodone as receiving different pain management as above (13) History of prostate cancer: Plan: S/p prostatectomy Plan Disposition- Will need SNF at discharge. Bed will be available at [facility] tomorrow Patient has outpatient colonoscopy planned for early May. His outpatient consulting database administrator reached out and asked if this can be done while he is here. I discussed this with the GI team, they will coordinate with [facility] so he can be prepped and have his colonoscopy within the next 2 weeks while he is at [facility] (there were concerns that he would have trouble prepping by himself). Admission and Anticipated Discharge Date Admission Date: April 27, 2022 Subjective No issues overnight Waiting for placement Left arm pain is controlled Physical Exam Physical Exam: Appears well, no acute distress, non toxic Respiratory: breathing comfortably on room air, no wheezing/rhonchi/rales Cardiovascular: regular rate and rhythm, no murmurs/rubs/gallops Gastrointestinal (Abdomen): soft, non tender, non distended Musculoskeletal: Left arm bruising and swelling is much improved Neurologic: awake, alert Results & Data Results & Data ([facility]) Vital Signs (Past 12 Hours) Vital Signs Temp Pulse Pulse Resp BP Pulse Ox O2 Del Method 05/03/22 08:04 36.5 C 59 L 19 118/71 94 Room Air 05/03/22 07:38 60 05/03/22 03:50 36.5 C 64 20 139/74 97 Room Air (1) Atrial fibrillation Atrial fibrillation type: unspecified Qualified Code(s): I48.91 - Unspecified atrial fibrillation (2) Coronary artery disease Coronary Disease-Associated Artery/Lesion type: [place] artery [place] vs. transplanted heart: [place] heart Associated angina: without angina Qualified Code(s): I25.10 - Atherosclerotic heart disease of [place] coronary artery without angina pectoris
[2022-05-03] MEDS ORDERED: WARFARIN SOD 3 MG TAB PO SCH (16:00)
[2022-05-03] MEDS ORDERED: bisacodyL 10 MG SUPP PR STA (16:43)
[2022-05-03] MEDS: WARFARIN SOD 2 MG TAB PO SCH (16:43)
[2022-05-03 20:40] LABS: Adenovirus F 40/41 PCR Not Detected (NotDetected); Astrovirus PCR Not Detected (NotDetected); Campylobacter PCR Not Detected (NotDetected); Cryptosporidium PCR Not Detected (NotDetected); Cyclospora cayetanensis PCR Not Detected (NotDetected); Entamoeba histolytica PCR Not Detected (NotDetected); Enteroaggregative E.coli(EAEC) Not Detected (NotDetected); Enteropathogenic E.coli (EPEC) Not Detected (NotDetected); Enterotoxigenic E.coli (ETEC) Not Detected (NotDetected); Giardia lamblia PCR Not Detected (NotDetected); Norovirus GI/GII PCR Not Detected (NotDetected); Plesiomonas shigelloides PCR Not Detected (NotDetected); Rotavirus A PCR Not Detected (NotDetected); Salmonella PCR Not Detected (NotDetected); Sapovirus PCR Not Detected (NotDetected); Shiga-like Toxin E.coli (STEC) Not Detected (NotDetected); Shigella/Enteroinvasive E.coli Not Detected (NotDetected); Vibrio cholerae PCR Not Detected (NotDetected); Vibrio species PCR Not Detected (NotDetected); Yersinia enterocolitica PCR Not Detected (NotDetected)
[2022-05-03] MEDS: LORazepam 1 MG TAB PO SCH (21:33)
[2022-05-03] MEDS: MIRTAZAPINE TAB 15 MG TAB PO SCH (21:33)
[2022-05-03] MEDS: oxyCODONE HCL IR 5 MG TAB (IMMEDIATE RELEASE) PO PRN (21:39)
[2022-05-03] MEDS: ZOLPIDEM TARTRATE 5 MG TAB PO PRN (22:44)
[2022-05-04] MEDS: oxyCODONE HCL IR 5 MG TAB (IMMEDIATE RELEASE) PO PRN (03:34)
[2022-05-04] MEDS: ACETAMINOPHEN 500 MG TAB PO SCH (06:15)
[2022-05-04 06:35] LABS: Hematocrit (blood only) 30.6 % (40.1-51.0); Hemoglobin 10.7 g/dl (14.0-18.0); Mean Corpuscular Hemoglobin 31.8 pg (25.0-34.0); Mean Corpuscular Volume 91.1 fL (80.0-100.0); Mean Platelet Volume 9.4 fL (9.4-12.4); Platelet Count 219 K/uL (130-400); RDW Coefficient of Variation 13.5 % (11.5-14.5); RDW Standard Deviation 44.7 fL (36.4-46.3); Red Blood Count 3.36 M/uL (4.63-6.08)
[2022-05-04 06:47] LABS: INR 1.2 (0.9-1.1); Prothrombin Time 12.6 Seconds (9.0-12.0)
[2022-05-04 07:14] LABS: Est GFR (African American) 63.1 ml/min; Est GFR (Non-African American) 54.4 ml/min; Potassium 4.1 mmol/L (3.5-5.1)
[2022-05-04] MEDS: CEROVITE ADV FORMULA TAB PO SCH (08:28)
[2022-05-04] MEDS: METOPROLOL SUCC 25MG EXT REL TAB PO SCH (08:28)
[2022-05-04] MEDS: GABAPENTIN 300 MG CAP PO SCH (08:28)
[2022-05-04] MEDS: LORATADINE 10 MG TAB PO SCH (08:28)
[2022-05-04] MEDS: MAGNESIUM OXIDE 400 MG TAB PO SCH (08:29)
[2022-05-04] MEDS: AMIODARONE 200 MG TAB PO SCH (08:29)
[2022-05-04] MEDS: DOCUSATE SODIUM 100 MG CAP PO SCH (08:29)
[2022-05-04] MEDS: FUROSEMIDE 20 MG TAB PO SCH (08:29)
[2022-05-04] MEDS: CALCIUM 600MG + VIT D 400 IU TAB PO SCH (08:29)
[2022-05-04] MEDS: NYSTATIN POWDER 15GM BTL EXT SCH (08:30)
[2022-05-04] MEDS: INSULIN ASPART PER UNIT SC SCH (08:36)
[2022-05-04] MEDS: LANTUS PER UNIT CHARGE SQ SCH (08:37)
--- NOTE | 2022-05-04 11:29 | Discharge Summary ---
Date of Service May 04, 2022 Admission HPI Per Admitting Provider Patient is 86-year-old male with PMH atrial fibrillation anticoagulated on warfarin, history of complete heart block s/p pacemaker, CAD, DM II, chronic systolic heart failure, CKD III, chronic pain, urinary retention, chronic catheter, history ESBL E. coli, history of aspiration, history of prostate cancer s/p prostatectomy, history of colon cancer s/p right hemicolectomy presented to ER with complaint of fall and left shoulder pain today. Ambulates with rolling walker at baseline. Patient states was ambulating in his house with his walker when his leg got caught and he lost his balance falling onto back and left shoulder. Complains of pain to left shoulder with inability to move shoulder. Also complains of headache, neck pain. Has chronic low back pain with history of fractures which he feels is at baseline. Denies extremity paresthesias. Denies loss of consciousness, syncope, dizziness, chest pain, shortness of breath prior or after fall. Patient reports history of chronic bowel irregularities including constipation varying with loose stools. He states yesterday had several episodes of loose stools which is not out of the norm for him. Denies melena, hematochezia. Patient does report outpatient monitoring of elevating CEA levels. He is to have colonoscopy in the next couple of weeks to assess. Patient reports is to have his catheter changed tomorrow. He has this done at urology office. Patient also states is being closely monitored for pacemaker battery life and was to have upcoming pacemaker interrogation in the next week. denies fever/chills, diaphoresis, N/V, vision changes, neck pain, CP, SOB, orthopnea, palpitations, cough, sore throat, choking, otalgia, rhinorrhea, abdominal pain, extremity edema, rashes, urinary symptoms. Admission Exam Per Admitting Provider General: no acute distress, WDWN Head: normocephalic, atraumatic Eyes: PERRL, EOM's intact, conjunctiva non-injected, anicteric ENT: normal inspection external ears, nose, mucous membranes moist Neck: supple, trachea midline, non-tender Lungs: clear, no respiratory distress, no wheezing/rhonchi/rales CV: RRR, no murmur, no pretibial edema Abd: normal BS, soft, non-tender Ext: no cyanosis, no calf tenderness; LUE: +sling in place to left arm, +edema and tenderness to palpation of anterior shoulder, able to move fingers, distal pulses palpable, sensation to light touch intact Neuro: A&O x 3, no focal deficits noted, normal affect Skin: warm, dry Principal Diagnosis Left humerus fracture Acute blood loss anemia Pace maker generator change Chronic Hyponatremia Discharge Exam Physical Exam: Appears well, no acute distress, non toxic Respiratory: breathing comfortably on room air, no wheezing/rhonchi/rales Cardiovascular: regular rate and rhythm, no murmurs/rubs/gallops Gastrointestinal (Abdomen): soft, non tender, non distended Musculoskeletal: Left arm bruising and swelling is much improved Neurologic: awake, alert Discharge Data Allergies Allergy/AdvReac Type Severity Reaction Status Date / Time sildenafil Allergy Unknown SWELLING Verified 04/27/22 15:43 OF FACE AND HEAD streptomycin Allergy Unknown N/V Verified 04/27/22 15:43 sulfite Allergy Unknown THROAT Verified 04/27/22 15:43 SWELLING nitrofurantoin AdvReac Diarrhea Verified 04/27/22 15:43 Sulfites Allergy Unknown throat Uncoded 04/27/22 15:43 swelling VASODILATORS Allergy Unknown "PERIPHERAL Uncoded 04/27/22 15:43 DILATOR" swelling of face and head Streptomycin Sulfate POWD AdvReac Unknown N/V Uncoded 04/27/22 15:43 Consultations 04/27/22 13:44 ED Decision to Admit Stat 04/27/22 16:09 Consult Orthopedic Surgery Routine Consult Urology Routine Procedures Performed Operation Date: 04/28/22 15:00 Actual Procedures p ICD Gen Change Dual - Wanda Redding DO Ordered Studies 04/27/22 11:31 CT cervical spine wo con Stat CT head/brain wo con Stat 04/28/22 11:56 CL Cath Imgs for PACS use only Routine Laboratory Results WBC 7.70 K/ul (4.8-10.8) 05/04/22 05:42 RBC 3.36 M/uL (4.63-6.08) L 05/04/22 05:42 Hgb 10.7 g/dl (14.0-18.0) L 05/04/22 05:42 Hct 30.6 % (40.1-51.0) L 05/04/22 05:42 MCV 91.1 fL (80.0-100.0) 05/04/22 05:42 MCH 31.8 pg (25.0-34.0) 05/04/22 05:42 MCHC 35.0 g/dL (32.0-36.0) 05/04/22 05:42 RDW Std Deviation 44.7 fL (36.4-46.3) 05/04/22 05:42 RDW Coeff of Gabriela 13.5 % (11.5-14.5) 05/04/22 05:42 Plt Count 219 K/uL (130-400) 05/04/22 05:42 MPV 9.4 fL (9.4-12.4) 05/04/22 05:42 Immature Gran % (Auto) 0.4 % 04/27/22 11:45 Neut % (Auto) 49.6 % 04/27/22 11:45 Lymph % (Auto) 40.4 % 04/27/22 11:45 [place] % (Auto) 8.3 % 04/27/22 11:45 Eos % (Auto) 0.9 % 04/27/22 11:45 Baso % (Auto) 0.4 % 04/27/22 11:45 Neut # (Auto) 4.74 K/uL (1.4-6.5) 04/27/22 11:45 Lymph # (Auto) 3.87 K/uL (1.2-3.4) H 04/27/22 11:45 [place] # (Auto) 0.79 K/uL (0.24-0.82) 04/27/22 11:45 Eos # (Auto) 0.09 K/uL (0-0.50) 04/27/22 11:45 Baso # (Auto) 0.04 K/uL (0-0.2) 04/27/22 11:45 Immature Gran # (Auto) 0.04 K/uL (0.00-0.02) H 04/27/22 11:45 PT 12.6 Seconds (9.0-12.0) H 05/04/22 05:42 INR 1.2 (0.9-1.1) H 05/04/22 05:42 Sodium 130 mmol/L (136-145) L 05/04/22 05:42 Potassium 4.1 mmol/L (3.5-5.1) 05/04/22 05:42 Chloride 95 mmol/L (98-107) L 05/04/22 05:42 Carbon Dioxide 30 mmol/L (21-32) 05/04/22 05:42 Anion Gap 5 (3-11) 05/04/22 05:42 BUN 24 mg/dl (6-23) H 05/04/22 05:42 Creatinine 1.20 mg/dl (0.6-1.4) 05/04/22 05:42 Est Cr Clr Drug Dosing 55.0 ml/min 05/04/22 05:42 Est GFR ( Amer) 63.1 ml/min 05/04/22 05:42 Est GFR (Non-Af Amer) 54.4 ml/min 05/04/22 05:42 BUN/Creatinine Ratio 20.0 (10-20) 05/04/22 05:42 Glucose 106 mg/dl (70-99(Fasting)) H 05/04/22 05:42 POC Glucose 170 mg/dl (70-99) H 05/04/22 11:33 Estimat Average Glucose 134 mg/dl 04/28/22 07:07 Hemoglobin A1c 6.3 % (4.5-5.6) H 04/28/22 07:07 Calcium 8.0 mg/dl (8.5-10.1) L 05/04/22 05:42 Magnesium 2.0 mg/dl (1.7-2.4) 05/04/22 05:42 Total Bilirubin 0.6 mg/dl (0.2-1.0) 04/27/22 11:45 AST 24 U/L (13-39) 04/27/22 11:45 ALT 22 U/L (7-52) 04/27/22 11:45 Alkaline Phosphatase 114 U/L (34-104) H 04/27/22 11:45 Total Protein 6.8 gm/dl (6.0-8.3) 04/27/22 11:45 Albumin 3.8 gm/dl (3.4-5.0) 04/27/22 11:45 Globulin 3.0 gm/dl (2.5-4.0) 04/27/22 11:45 Albumin/Globulin Ratio 1.3 (0.9-2) 04/27/22 11:45 Stl C. cayetanensis PCR Not Detected (NotDetected) 05/03/22 19:16 Stool Rotavirus A PCR Not Detected (NotDetected) 05/03/22 19:16 Stl Adenov F 40/41 PCR Not Detected (NotDetected) 05/03/22 19:16 Stool Astrovirus (PCR) Not Detected (NotDetected) 05/03/22 19:16 Stool Campylobacter PCR Not Detected (NotDetected) 05/03/22 19:16 Stool Cryptosporidium PCR Not Detected (NotDetected) 05/03/22 19:16 Stl E.coli Shiga Tox PCR Not Detected (NotDetected) 05/03/22 19:16 Stl Enterotoxigenic E PCR Not Detected (NotDetected) 05/03/22 19:16 Stool EPEC (PCR) Not Detected (NotDetected) 05/03/22 19:16 Stool EAEC (PCR) Not Detected (NotDetected) 05/03/22 19:16 Stl E. histolytica PCR Not Detected (NotDetected) 05/03/22 19:16 Stool Giardia Lamblia PCR Not Detected (NotDetected) 05/03/22 19:16 Stool Salmonella PCR Not Detected (NotDetected) 05/03/22 19:16 Stool Sapovirus (PCR) Not Detected (NotDetected) 05/03/22 19:16 Stl P. shigelloides PCR Not Detected (NotDetected) 05/03/22 19:16 Stl Shigella/EIEC PCR Not Detected (NotDetected) 05/03/22 19:16 St Y.enterocolitica PCR Not Detected (NotDetected) 05/03/22 19:16 Stool Vibrio (PCR) Not Detected (NotDetected) 05/03/22 19:16 Stl Vibrio cholerae PCR Not Detected (NotDetected) 05/03/22 19:16 Stl Norovirus GI/GII PCR Not Detected (NotDetected) 05/03/22 19:16 SARS-CoV-2, RNA, NAAT NEGATIVE (NEGATIVE) 05/03/22 15:[address] 04/27/22 11:31 CT OF THE CERVICAL SPINE WITHOUT CONTRAST CLINICAL HISTORY: Fall. COMPARISON STUDY: Cervical spine CT February 01, 2011 and CTA of the neck March 22, 2011. TECHNIQUE: Helical axial images of the cervical spine were obtained without IV contrast. Sagittal and coronal reconstructions were viewed. Automated exposure control was utilized for the study. A dose lowering technique was utilized adhering to the principles of ALARA. FINDINGS: Alignment of the cervical spine is anatomic. Vertebral body heights are maintained. No acute cervical spine fracture or subluxation is present. There is no prevertebral edema. Facet joints are intact. Severe multilevel facet arthrosis is present. There is moderate multilevel disc space narrowing and osteophytosis within the cervical spine. Mild concavity of the superior endplate of C5 is chronic. An acute left humeral neck fracture is noted on manager treasury image. IMPRESSION: 1. No acute cervical spine fracture or subluxation. 2. Acute left humeral neck fracture noted on manager treasury image. ACT 112: Negative or not required by law. Electronically signed by: Dieudonne Roy M.D. 04/27/2022 12:[address] 04/27/22 11:31 CT SCAN OF THE BRAIN WITHOUT IV CONTRAST CLINICAL HISTORY: Fall. Head injury. COMPARISON STUDY: CT of the brain dated 09/23/2015. TECHNIQUE: Unenhanced axial CT scan of the brain is performed from the vertex to the skull base. A dose lowering technique was utilized adhering to the principles of ALARA. CT DOSE: 1133.33 mGy.cm FINDINGS: Brain parenchyma: There is age-related involutional change noting [id number] subcortical and periventricular microangiopathic disease. There is no hemorrhage, mass effect, or evidence of acute territorial ischemia by CT criteria. [place]-white matter differentiation is preserved. No extra-axial fluid collection is seen. Ventricles, sulci, cisterns: Prominent secondary to involutional change. Intracranial vasculature: There is atherosclerotic calcification of the cavernous carotid and vertebral arteries. Calvarium: The skeletal structures are osteopenic. No depressed calvarial fracture is seen. Sinuses and mastoids: A 2.3 cm retention cyst is noted in the left maxillary antrum. There is subtotal opacification of the left sphenoid sinus. The remaining visualized paranasal sinuses are clear. The mastoid air cells are well pneumatized. Orbits: The bony orbits are grossly intact. There are bilateral ocular lens implants. IMPRESSION: There is no hemorrhage, mass effect, or evidence of acute territorial ischemia by CT criteria. ACT 112: Negative or not required by law. Electronically signed by: Austin Guaman M.D. 04/27/2022 12:34 PM Humerus X-Ray 04/27/22 11:31 XR humerus LT 2V CLINICAL HISTORY: Left shoulder pain following injury. COMPARISON: Left shoulder radiographs November 23, 2007. FINDINGS: Left subclavian pacer is partially imaged on this exam. There is an acute displaced left humeral neck fracture. Fracture is displaced approximately 1.4 cm. No distal left humeral fracture is noted. Alignment of the left glenohumeral and acromioclavicular joints is anatomic. Moderate AC joint osteoarthritis is present. Alignment of the left elbow is anatomic. IMPRESSION: Acute displaced left humeral neck fracture. ACT 112: Negative or not required by law. Electronically signed by: Dieudonne Roy M.D. 04/27/2022 1:45 PM Chest X-Ray 04/27/22 11:32 XR chest 1V portable CLINICAL HISTORY: fall truama TECHNIQUE: Single frontal radiograph of the chest was obtained. Comparison: Comparison is made to chest radiograph 05/14/2020 FINDINGS: Dual lead pacemaker is seen. Cardiomegaly is noted. The aortic arch is calcified. The lungs are clear. No evidence of pleural effusion or pneumothorax. Partial visualization of deformity of the left shoulder, please see dedicated shoulder radiographs for further evaluation. IMPRESSION: No acute chest disease. Please see shoulder radiograph for findings of shoulder fracture. ACT 112: Negative or not required by law. Electronically signed by: Peterson Vela M.D. 04/27/2022 1:37 PM Shoulder X-Ray 04/29/22 09:49 XR shoulder LT min 2V routine CLINICAL HISTORY: hx of proximal humerus fracture, increased pain COMPARISON STUDY: Left shoulder 04/27/2022. FINDINGS: There is no significant change in the slightly impacted, comminuted, and displaced left humeral neck fracture. No dislocation. There is a left-sided pacemaker again noted. Soft tissue swelling within the left shoulder persist. IMPRESSION: There is no significant change in the slightly impacted, comminuted, and displaced left humeral neck fracture. ACT 112: Negative or not required by law. Electronically signed by: Dennis Blank M.D. 04/29/2022 11:05 AM Hospital Course (1) Closed fracture of left proximal humerus: (2) Fall: Patient is 86-year-old male with PMH atrial fibrillation anticoagulated on warfarin, history of complete heart block s/p pacemaker, CAD, DM II, chronic systolic heart failure, CKD III, chronic pain, urinary retention, chronic catheter, history ESBL E. coli, history of aspiration, history of prostate cancer s/p prostatectomy, history of colon cancer s/p right hemicolectomy presented to ER with complaint of mechanical fall and left shoulder pain Left humerus x-ray: Acute displaced left humeral neck fracture. -Appreciate ortho input, plan for non surgical management. Evaluated by PT/OT and recommended SNF. -Non weight bearing of left arm (3) Urinary retention: History of chronic urinary retention. Chronic catheter Due to have catheter changed by urology on 04/28/2022 Denies any noted hematuria, fever, chills, abdominal pain. Patient with history ESBL E. coli Berman catheter changed while here (4) History of airway aspiration: Has been followed up with speech therapy outpatient. Recommend patient sitting upright, chin tuck. Thin liquids, applesauce to take pills. Is not on any thickened liquids Aspiration precautions (5) Atrial fibrillation: Continue amiodarone, metoprolol succinate Warfarin on hold currently per EP recommendations for the significant bruising of left arm. Bruising is much improved. Will resume coumadin INR 1.2 today. Give extra 3mg today (total 5mg now) (6) Coronary artery disease: Medically managed Continue metoprolol succinate (7) Diabetes mellitus type 2 with complications: A1c: 6.4 on 12/31/2021 Continue home basal insulin NovoLog sliding scale per protocol A1c in a.m. (8) Chronic systolic heart failure: 02/11 echo: EF: 45%, grade 1 diastolic dysfunction lasix 20mg daily resumed 05/01 (9) CKD (chronic kidney disease), stage III: Cr: 1.4 today. Baseline 1.2-1.3 Avoid nephrotoxic agents when possible ALISSA on CKD. Cr now back to baseline (10) Complete heart block: (11) Pacemaker: Device interrogated and found to be at end of life. Generator changed 04/28 (12) Chronic pain: History of chronic back pain secondary to compression fractures Continue gabapentin. Hold home hydrocodone as receiving different pain management as above (13) History of prostate cancer: S/p prostatectomy Plan Disposition- Will need SNF at discharge. Bed will be available at [facility] tomorrow Patient has outpatient colonoscopy planned for early May. His outpatient efficiency analyst reached out and asked if this can be done while he is here. I discussed this with the GI team, they will coordinate with [facility] so he can be prepped and have his colonoscopy within the next 2 weeks while he is at [facility] (there were concerns that he would have trouble prepping by himself). Total Time Total Time Spent Total Time Spent (In Minutes): 35 minutes Discharge Plan Discharge Items Patient Disposition: Transfer [facility] Fac Reason For Visit: HUMERUS FRACTURE Discharge Diagnosis: Left humerus fracture Acute blood loss anemia Pace maker generator change Chronic Hyponatremia Condition on Discharge: Good Activity: As commented below Activity Comment: Non weight bearing of left arm until cleared by Orthopedic Surgery Lifting: None Bathing: Keep incision dry Bathing Comment: keep dressing on & dry until wound check next week Weightbearing: Left non-weightbearing Weightbearing Comment: Non weight bearing left arm. Non-emergency contact: Primary Care Provider, Surgeon and Presser Automatic Call non-emergency contact if: you have any medication questions Follow-up/Referrals: [facility] Cardiology Pacemaker Clinic [Other] (Date & Time 05/05/2022 11:30 AM Provider Pacer Clinic [facility] Department Cardiology, [facility] ) Vianey Matamoros MD [Primary Care Provider] - Tung Amin MD [Surgeon] - Diet: Carb Consistent or DM2 Addtl Attending Provider Instructions: Follow up with primary care provider once discharge from [facility] device and wound check next week at [facility] Cardiology Follow up with orthopedic Dr. Amin in 7 to 10 days. Call [phone] if not already scheduled. Follow up with gastroenterology outpatient to coordinate for colonoscopy Follow up with the Coumadin clinic to monitor your PT/INR. Check INR in 2 days (Please take 3mg of coumadin later ) Check BMP in 1 week to monitor your Sodium level Don't drive until your doctor says it's OK. OK to shower tomorrow Do not lift the left elbow over the left shoulder for 1 month Do not lift no more than 10 lbs for 1 week Do not stretch your arm behind your back for as long as directed by your doctor. Keep incision area clean and dry Check your incision area for signs of infection (redness, swelling, drainage, or warmth). Before you receive any treatment, tell all healthcare providers (including your dentist) that you have a pacemaker. Keep your cell phone away from your pacemaker. Don't carry the phone in your shirt pocket overlying the pacemaker, even when it's turned off. Avoid strong magnets If you order for an MRI in the future, please inform that you have a pacemaker Addtl Order Entry Representative Provider Instructions: Orthopedic Instructions: - non weight bearing left upper extremity - Sling left arm at all times. - No range of motion left shoulder. - Ice to left shoulder as needed for pain/swelling. - Allowed for full range of motion left elbow, forearm, wrist, fingers as tolerated - Follow up with Dr. Amin 7-10 days after discharge. Call [phone] if not already scheduled. Pending Studies at Discharge: No Stand-Alone Forms: My [facility] Skilled Items Patient informed of condition?: Yes DNR: No Discharge Level of Care: Skilled Communicable Disease: No Discharge Prognosis: Stable Lines: None Urinary Catheter: Yes Medications and DC Order Prescriptions: Continued gabapentin 300 mg capsule 300 mg PO TID mirtazapine 15 mg tablet 15 mg PO HS furosemide 20 mg tablet 20 mg PO QAM [facility] 50 mg-15 unit- 4.5 mg-2.5 mg Tablet,Chewable 1 tab PO QAM insulin glargine 100 unit/mL Solution 16 units SUBCUT DAILYBB Rx Instructions: if FS 90-125 is > 130 for 4 days then increase by 1 unit magnesium oxide 400 mg (241.3 mg magnesium) Tablet 400 mg PO QAM metoprolol succinate 25 mg Tablet Extended Release 24 Hr 25 mg PO QAM loratadine 10 mg Tablet 10 mg PO QAM amiodarone 200 mg tablet 200 mg PO QAM warfarin 2 mg tablet 2 mg PO DAILY Rx Instructions: 1mg on monday. 2mg on sun, mon, tu, wed, thur, fri zolpidem [Ambien] 5 mg Tablet 5 mg PO HS PRN (Reason: Sleep) lorazepam 1 mg tablet 1 mg PO HS hydrocodone-acetaminophen 5-325 mg tablet 1 tab PO BID PRN (Reason: pain,severe) nystatin [Nystop] 100,000 unit/gram Powder 1 applic TOPICAL TID Rx Instructions: apply to groin until healed mometasone 0.1 % Solution 1 applic TOPICAL DAILY PRN (Reason: Itching) Rx Instructions: apply to affected area daily to back docusate sodium [Colace] 100 mg Capsule 100 mg PO BID calcium carbonate-vit D3-min 600 mg calcium- 400 unit Tablet 1 tab PO DAILY Discharge Orders: Discharge Order (Routine); Ordered 05/04/22 Ordered By: Rosalie Reid/Other Patient Handouts: Managing Type 2 Diabetes, Heart Failure Make Changes Diet Admission Data Admit Date/Time: 04/27/22 15:40 Attending Provider: Rosalie Coto Admit Provider: Jam Dao Primary Care Provider: Vianey Matamoros Other Providers: Jam Dao ; Sandeep Steven ; Tung Amin ; Sasha Beverly [facility] ; Alexa Herndon Other Interventions: Discharge Summary Assessment (RN) Last Done: 05/04/22 11:42
--- NOTE | 2022-05-11 13:49 | Operative Report (OR) ---
DATE OF PROCEDURE: 04/28/2022. PREOPERATIVE DIAGNOSIS: Complete heart block and pacemaker at elective replacement indicator. POSTOPERATIVE DIAGNOSIS: Complete heart block and pacemaker at elective replacement indicator. PROCEDURE: Dual-chamber rate responsive permanent pacemaker generator change. SURGEON: Wanda Redding DO. JUNIOR ACCOUNT EXECUTIVE: None. ANESTHESIA: Monitored conscious sedation administered under my supervision by Charlie Samuels. Start time 1559, end time 1635. A total of 25 mg of Versed, 50 mcg of fentanyl. INTRAVENOUS FLUIDS: 20 mL ANTIBIOTICS: 2 grams of Ancef. BLOOD LOSS: 5 mL URINE OUTPUT: Not applicable. SPECIMENS: None. FINDINGS: See below. DRAINS: None. INDICATIONS: This is an 86-year-old gentleman with a past medical history for complete heart block w here he underwent a pacemaker in 2010, coronary artery disease, 80% proximal small PDA that was medic ally managed in 2007 as well as the cath in 2014, PVCs, persistent atrial fibrillation, on amiodarone and Coumadin, CHADS2-VASc score 4, diabetes and hypertension. He was admitted to [facility] for noncardiac reasons, but we knew that his device had hit JESSY on the admission device check and recommended generator change prior to the patient being discharged from the hospital. CONSENT: Consent was obtained prior to the patient going into the electrophysiology lab. The patien t was informed of the risks, benefits, and alternatives to the procedure. Risks include, but not barnes ited to, sudden cardiac , cardiac arrhythmias, cerebrovascular accident, myocardial infarction, bleeding, and infection. The patient understood these risks and agreed to the procedure as planned. Informed consent was obtained. DESCRIPTION OF PROCEDURE: The patient was brought into the electrophysiology lab in a fasting state. He was connected to continuous cardiac monitoring. A time-out was performed to ensure patient and procedure correctly. Then, the patient received prophylactic antibiotics prior to incision. He was prepped and draped over the left infraclavicular space in normal surgical standard fashion. Monitore d conscious sedation was given throughout the procedure for patient's comfort level. [place] preca utions were maintained throughout the procedure. He received prophylactic antibiotics prior to incis ion. 10 mL of 1% lidocaine-bupivacaine mixture were given over the prior surgical incision. Incision was made over the prior surgical incision. Blunt dissection was performed down to the pulse generator an d the pulse generator was removed from the body and then the pocket was disrupted inferiorly and caud ally to allow for new blood flow. The leads were detached intact intraoperatively. Please refer bel ow for results. Then, the leads were attached to the new pulse generator making sure the pins were i n appropriate position, passed set screws, and set screws were all tightened. The pocket was then fl ushed with copious amounts of vancomycin and saline wash and inspected for hemostasis. The pulse gen erator was then placed in a TYRX pouch followed then by being placed in the pocket, making sure the l royce were lying flat beneath the device. The incision was closed in a 3-layer fashion using 2-0 Vicr yl interrupted suture, followed by 3-0 Vicryl interrupted suture, followed by 4-[address] itch and Dermabond was applied followed by Telfa and Tegaderm dressing. EQUIPMENT: 1. Explanted pulse generator is model [id number], serial number [id number], voltage 2.62 volts at JESSY on 04/09/2022, was implanted on 02/02/2011. 2. New pulse generator is a [place] XT DR RAYRAY Rivera [id number], serial number [id number]. 3. TYRX pouch, reference [id number], lot number [id number]. 4. Right atrial lead, 5076-45 cm, serial number [id number], implanted on 02/02/2011. 5. Right ventricular lead, 5076-52 cm, serial number [id number], implanted on 02/02/2011. INTRAPROCEDURAL FINDINGS: 1. Right atrial lead, P waves 2.5 millivolts, impedance 433 ohms, threshold 0.3 volts at 0.5 millise conds. 2. Right ventricular lead, no R waves. The patient was paced, impedance 506 ohms, threshold 0.8 vol ts at 0.5 milliseconds. FINAL MEASUREMENTS THROUGH THE DEVICE. 1. Right atrial lead, P waves 2.1 millivolts, impedance 437 ohms, threshold 0.5 volts at 0.4 millise conds. 2. Right ventricular lead, no R waves. The patient is paced, impedance 456 ohms, threshold 0.9 volt s at 0.4 milliseconds. FINAL PARAMETERS: DDDR 60/130. Right atrial amplitude 1.5 volts, pulse width 0.4 milliseconds, sens itivity 0.3 millivolts. Right ventricular amplitude 2 volts, pulse width 0.4 milliseconds, sensitivi ty 1.2 millivolts. IMPRESSION: Successful dual chamber rate responsive permanent pacemaker generator change secondary t o complete heart block and pacemaker at elective replacement indicator. PLAN: Monitor the patient post-procedure. Transfer back to inpatient unit. He is to keep the dress ing on and dry until his wound check next week. He can restart his Coumadin, if he was held and disc harged as per the hospitalist team. Job ID: [id number]
== END 2022-05-04 12:15 | DRG 988 ==
LOC: ED 11:25 → EDINP 15:40 → SUATTDRO 15:40 → 2N 16:09

== ENCOUNTER 2023-01-30 15:14 | Inpatient (IN) ==
--- NOTE | 2023-01-30 15:32 | ED Triage Note ---
Date of Service January 30, 2023 History of Present Illness This patient was briefly evaluated while in triage. An abbreviated physical exam was performed. This patient is a 87-year-old Male who presents to the ED as he was referred by wound clinic. Plantar L foot wound. Exposed tendon per caregiver that is with the patient. Just finished antibiotics last week. Physical Exam GENERAL: 87 year old male. In no acute distress. SKIN: Both feet bandaged, L foot edematous. L foot wounds suspected. HEART: Regular rate and rhythm. LUNGS: Clear to auscultation. NEURO: Alert and oriented. No deficits. MUSCULOSKELETAL: No deformities to inspection of the extremities. PSYCH: Patient is pleasant and answers all questions appropriately. Initial orders for labs and / or imaging were placed and patient was placed in the waiting area until a bed is available. Please see further documentation for the full ED course.
[2023-01-30 16:55] LABS: Basophils # (auto) 0.02 K/uL (0.00-0.20); Basophils % (auto) 0.1 %; Eosinophils # (auto) 0.02 K/uL (0.00-0.50); Eosinophils % (auto) 0.1 %; Hematocrit (blood only) 46.7 % (42.0-52.0); Hemoglobin 16.5 g/dl (14.0-18.0); Immature Granulocytes # (auto) 0.08 K/uL (0.01-0.20); Immature Granulocytes % (auto) 0.6 %; Lymphocytes # (auto) 2.32 K/uL (1.20-3.40); Lymphocytes % (auto) 17.3 %; Mean Corpuscular Hemoglobin 30.8 pg (25.0-34.0); Mean Corpuscular Hgb Conc 35.3 g/dL (32.0-36.0); Mean Corpuscular Volume 87.1 fL (80.0-100.0); Monocytes # (auto) 0.97 K/uL (0.11-0.59); Monocytes % (auto) 7.2 %; Neutrophils # (auto) 10.01 K/uL (1.40-6.50); Neutrophils % (auto) 74.7 %; Platelet Count 293 K/uL (130-400); RDW Coefficient of Variation 14.8 % (11.5-14.5); RDW Standard Deviation 47.1 fL (36.4-46.3); Red Blood Count 5.36 M/uL (4.70-6.10); White Blood Count 13.42 K/ul (4.8-10.8)
[2023-01-30 17:10] LABS: Alanine Aminotransferase 30 U/L (7-52); Albumin Globulin Ratio 1.2 (0.9-2); Albumin Level 4.2 gm/dl (3.4-5.0); Alkaline Phosphatase 125 U/L (34-104); Anion Gap 6 (3-11); Aspartate Aminotransferase 32 U/L (13-39); BUN Creatinine Ratio 17.2 (10-20); Bilirubin,Total 0.8 mg/dl (0.2-1.0); Blood Urea Nitrogen 17 mg/dl (6-23); Calcium 9.2 mg/dl (8.6-10.3); Carbon Dioxide 30 mmol/L (21-32); Chloride 94 mmol/L (98-107); Est GFR (Non-African American) 68.2 ml/min; Globulin 3.5 gm/dl (2.5-4.0); Glucose 173 mg/dl (70-99(Fasting)); Sodium 130 mmol/L (136-145); Total Protein 7.7 gm/dl (6.0-8.3)
[2023-01-30 17:39] LABS: INR 1.8 (0.9-1.1); Partial Thromboplastin Ratio 1.2; Prothrombin Time 19.3 Seconds (9.0-12.0)
[2023-01-30] MEDS ORDERED: PIPERACILLIN/TAZOBACTAM 4.5 GM/100 ML BAG IV ONE (18:14)
--- NOTE | 2023-01-30 18:19 | Emergency Department Note ---
Impression & Plan Diabetic infection of left foot, PAD (peripheral artery disease), Osteomyelitis of foot, acute ED Provider Note Provider: Janusz Amezcua MD DATE OF SERVICE: 01/30/2023 CHIEF COMPLAINT: Worsening foot wound HISTORY OF PRESENT ILLNESS: Patient is a 87-year-old gentleman history of PAD, CAD, atrial fibrillation on warfarin, diabetes with neuropathy and history of foot wounds as well as chronic kidney disease and indwelling Berman catheter presenting referred from wound clinic today. Worsening of the wound to the left foot over the last several days. Was on doxycycline about 2 weeks ago. Has followed with right before for grasp a small wound to the left lateral foot at the base of the pinky toe has spread and is now erythematous and foul-smelling. Is having some drainage. Reviewed wound care with concerns for deeper infection. Patient denies significant systemic symptoms. Has been with sensation. Denies any significant trauma. Patient has been following with vascular medicine Dr. Ulrich regarding possible stenting to improve blood flow to help healing and was scheduled for a procedure here this coming Monday. Also reports due for Berman catheter change. 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 NECK: Trachea midline. ENT: Mucous membranes pink and moist. LUNGS: Airway patent. No retractions or tachypnea HEART: Regular rate and rhythm. ABDOMEN: Soft and non-tender, without guarding or rebound. Chronic indwelling Berman SKIN: Acyanotic, warm, dry, without rashes EXTREMITIES: Patient with erythema and approximately 1 cm wound at the base of the left pinky toe with a small opening wound to the intertriginous region between the pinky toe and fourth toe of the left foot. Foul-smelling. Some granulation here. No tono pus. Limited sensation. No other significant open wounds heading up the foot or ankle but dry scaly skin. NEUROLOGICAL: No focal deficits. No aphasia. No facial droop or slurred speech. Patient's laboratory studies and imaging reviewed. Differential includes Cellulitis, abscess, MRSA infection, DVT, necrotizing fasciitis, dermatitis, drug eruption, allergic reaction, as well as other pathologies. IMPRESSION/MEDICAL DECISION MAKING: Patient does not appear septic or systemically ill. History of PAD and diabetes both complicating wounds and wound healing. Reviewed prior cultures without reported history of MRSA. No culture taken here and wound was redressed. INR 1.8. Is to have procedure with vascular surgery to provide additional blood flow however wound appears worsened and unwell at this point. CRP elevated ESR somewhat elevated. Will obtain CT to look for occult osteomyelitis but in any event requires aggressive care to prevent loss of limb or more systemic infection. No trauma history. Patient again does not appear septic. Is due for Berman catheter change we will see if we can accomplish. Will cover with Zosyn based on prior cultures. Has followed with podiatry before. Discussed with patient that would recommend IV antibiotics and admission and plan of care based on imaging and further consult evaluation in the morning. He was agreeable with this. Wound does not appear dusky and I doubt ischemia. No crepitus and doubt necrotizing fasciitis at this time. CT foot is pending radiology report but on my review of the CAT scan imaging concerning for bony destruction and osteomyelitis. DIAGNOSIS: Diabetic left foot wound infection and metatarsal osteomyelitis, PAD DISPOSITION: Hospitalist will evaluate Patient was agreeable with this plan. Past Med/Surg History Medical History Ambulatory dysfunction Atrial fibrillation Cerebrovascular disease Chronic systolic CHF (congestive heart failure) Compression fracture of L4 lumbar vertebra HX BROKEN BACK Coronary artery disease Diabetes mellitus type 2 with complications Diabetic neuropathy Dyslipidemia Berman catheter in place gets changed monthly Generalized OA Heart failure History of airway aspiration History of colon cancer HX COLON SURGERY History of hepatitis B History of melanoma HX MELANOMA, HX MULTIPLE SKIN CA & REMOVED History of Mohs micrographic surgery for skin cancer History of prostate cancer PROSTATECTOMY Hypertension Lumbar spinal stenosis Pacemaker "DUAL" - PT NOT SURE BRAND, PLACED D/T AFIB - ESTEBAN ZAMORANO PVD (peripheral vascular disease) Renal failure ? stage Surgical History H/O prostatectomy History of anesthesia reaction WITH TESTICULAR SURGERY, [facility] - INCREASED BP & HAD TO STAY OVERNIGHT History of cardiac cath years ago> [facility] - CHECKING FOR BLOCKAGE - NO STENTS History of colonoscopy MULTIPLE History of right hemicolectomy History of testicular surgery History of tonsillectomy and adenoidectomy Family History Mother Coronary heart disease Father Heart disease Social History Smoking Status: Never smoker Second Hand Exposure: No; Do You Dip or Chew Tobacco: No; Hx Alcohol Use: No Hx Substance Use: No Preferred Language: Albanian Communication Ability: Effective Hearing Ability: Hard of Hearing Healthcare Translator Required: No Beliefs That Will Affect Care: None marital status: Single Current Living Situation: Care Home Current Living Situation Comment: [facility] current occupational status: retired How many Children do You have: 0 Feels Safe at Home: Yes Diet: diabetic Diet Comment: Increased protein for healing per chart during the past year weight has: remained stable Assistive Devices: Walker Allergies Allergies Allergy/AdvReac Type Severity Reaction Status Date / Time Macrolide Antibiotics Allergy Unknown PER Verified 01/30/23 16:04 MEDICAL RECORD sildenafil Allergy Unknown SWELLING Verified 01/30/23 16:04 OF FACE AND HEAD streptomycin Allergy Unknown N/V Verified 01/30/23 16:04 sulfite Allergy Unknown THROAT Verified 01/30/23 16:04 SWELLING nitrofurantoin AdvReac Diarrhea Verified 01/30/23 16:04 Sulfites Allergy Unknown throat Uncoded 01/30/23 16:04 swelling VASODILATORS Allergy Unknown "PERIPHERAL Uncoded 01/30/23 16:04 DILATOR" swelling of face and head Streptomycin Sulfate POWD AdvReac Unknown N/V Uncoded 01/30/23 16:04 Home Meds Home Medications Medication Instructions Recorded Confirmed amiodarone 200 mg tablet 200 mg PO QAM 01/02/18 01/30/23 insulin glargine 100 unit/mL 8 units subcut BID 01/02/18 01/30/23 subcutaneous solution loratadine 10 mg tablet 10 mg PO QAM 01/02/18 01/30/23 magnesium oxide 400 mg (241.3 mg 400 mg PO QAM 01/02/18 01/30/23 magnesium) tablet metoprolol succinate 25 mg 25 mg PO QAM 01/02/18 01/30/23 tablet,extended release 24 hr zolpidem 5 mg tablet (Ambien) 5 mg PO HS 01/02/18 01/30/23 gabapentin 300 mg capsule 300 mg PO TID 03/10/18 01/30/23 docusate sodium 100 mg capsule 100 mg PO BID 04/27/22 01/30/23 (Colace) hydrocodone 5 mg-acetaminophen 325 0.5 tab PO Q12H PRN pain,severe 04/27/22 01/30/23 mg tablet mometasone 0.1 % topical solution 1 applic topical DAILY PRN Itching 04/27/22 01/30/23 acetaminophen 325 mg capsule 650 mg PO QID PRN PAIN/FEVER 05/10/22 01/30/23 furosemide 20 mg tablet 40 mg PO QAM 06/28/22 01/30/23 bisacodyl 10 mg rectal suppository 10 mg SD DAILY PRN Constipation 12/01/22 01/30/23 calcium carbonate 500 mg-vitamin 1 tab PO DAILY 12/01/22 01/30/23 D3 5 mcg (200 unit) tablet (Oyster Shell Calcium-Vitamin D3) clotrimazole 1 % topical cream 1 applic topical UD 12/01/22 01/30/23 lorazepam 0.5 mg tablet 0.5 mg PO DAILY PRN anxiety/sleep 12/01/22 01/30/23 mirtazapine 30 mg tablet (Remeron) 30 mg PO DAILY 12/01/22 01/30/23 multivit,stress formula-zinc tablet 1 tab PO DAILY 12/01/22 01/30/23 vitamin A-vitamin C-vit E-min 1 tab PO DAILY 12/01/22 01/30/23 tablet warfarin 1 mg tablet 1 - 2 mg PO UD 12/01/22 01/30/23 Results & Data (ED) Vital Signs Vital Signs - 24 hr 01/30/23 15:30 Temperature 36.9 C Temperature Source Temporal Artery Scan Pulse Rate 62 Respiratory Rate 16 Respiratory Effort / Characteristics Non-Labored Spontaneous Respiratory Depth Normal Blood Pressure 115/66 Blood Pressure Mean 82 Pulse Oximetry 97 Oxygen Delivery Method Room Air Sepsis Recent Fever Within 48 Hours No Sepsis New/Unexplained Change in Mental Status N/A Sepsis Action Taken by Nursing No Action Required Laboratory Data 01/30/23 16:15 01/30/23 16:15 Lab Results 01/30/23 01/30/23 01/30/23 Range/Units 16:15 16:15 16:15 WBC 13.42 H (4.8-10.8) K/ul RBC 5.36 (4.70-6.10) M/uL Hgb 16.5 (14.0-18.0) g/dl Hct 46.7 (42.0-52.0) % MCV 87.1 (80.0-100.0) fL MCH 30.8 (25.0-34.0) pg MCHC 35.3 (32.0-36.0) g/dL RDW Std Deviation 47.1 H (36.4-46.3) fL RDW Coeff of Gabriela 14.8 H (11.5-14.5) % Plt Count 293 (130-400) K/uL MPV 9.0 L (9.4-12.4) fL Immature Gran % (Auto) 0.6 % Neut % (Auto) 74.7 % Lymph % (Auto) 17.3 % [place] % (Auto) 7.2 % Eos % (Auto) 0.1 % Baso % (Auto) 0.1 % Neut # (Auto) 10.01 H (1.40-6.50) K/uL Lymph # (Auto) 2.32 (1.20-3.40) K/uL [place] # (Auto) 0.97 H (0.11-0.59) K/uL Eos # (Auto) 0.02 (0.00-0.50) K/uL Baso # (Auto) 0.02 (0.00-0.20) K/uL Immature Gran # (Auto) 0.08 (0.01-0.20) K/uL ESR (0-20) mm/hr PT 19.3 H (9.0-12.0) Seconds INR 1.8 H (0.9-1.1) APTT 35.0 H (21.0-31.0) Seconds PTT Ratio 1.2 Sodium 130 L (136-145) mmol/L Potassium 4.0 (3.5-5.1) mmol/L Chloride 94 L (98-107) mmol/L Carbon Dioxide 30 (21-32) mmol/L Anion Gap 6 (3-11) BUN 17 (6-23) mg/dl Creatinine 0.99 (0.6-1.4) mg/dl Est Cr Clr Drug Dosing Not Reportable Est GFR ( Amer) 79.0 ml/min Est GFR (Non-Af Amer) 68.2 ml/min BUN/Creatinine Ratio 17.2 (10-20) Glucose 173 H (70-99(Fasting)) mg/dl POC Glucose (70-99) mg/dl Lactate (0.4-2.0) mmol/L Calcium 9.2 (8.6-10.3) mg/dl Total Bilirubin 0.8 (0.2-1.0) mg/dl AST 32 (13-39) U/L ALT 30 (7-52) U/L Alkaline Phosphatase 125 H (34-104) U/L C-Reactive Protein 2.90 H (0-0.5) mg/dl Total Protein 7.7 (6.0-8.3) gm/dl Albumin 4.2 (3.4-5.0) gm/dl Globulin 3.5 (2.5-4.0) gm/dl Albumin/Globulin Ratio 1.2 (0.9-2) Procalcitonin (0-0.5) ng/ml SARS-CoV-2, RNA, NAAT (NEGATIVE) 01/30/23 01/30/23 01/30/23 Range/Units 16:15 16:15 17:54 WBC (4.8-10.8) K/ul RBC (4.70-6.10) M/uL Hgb (14.0-18.0) g/dl Hct (42.0-52.0) % MCV (80.0-100.0) fL MCH (25.0-34.0) pg MCHC (32.0-36.0) g/dL RDW Std Deviation (36.4-46.3) fL RDW Coeff of Gabriela (11.5-14.5) % Plt Count (130-400) K/uL MPV (9.4-12.4) fL Immature Gran % (Auto) % Neut % (Auto) % Lymph % (Auto) % [place] % (Auto) % Eos % (Auto) % Baso % (Auto) % Neut # (Auto) (1.40-6.50) K/uL Lymph # (Auto) (1.20-3.40) K/uL [place] # (Auto) (0.11-0.59) K/uL Eos # (Auto) (0.00-0.50) K/uL Baso # (Auto) (0.00-0.20) K/uL Immature Gran # (Auto) (0.01-0.20) K/uL ESR 31 H (0-20) mm/hr PT (9.0-12.0) Seconds INR (0.9-1.1) APTT (21.0-31.0) Seconds PTT Ratio Sodium (136-145) mmol/L Potassium (3.5-5.1) mmol/L Chloride (98-107) mmol/L Carbon Dioxide (21-32) mmol/L Anion Gap (3-11) BUN (6-23) mg/dl Creatinine (0.6-1.4) mg/dl Est Cr Clr Drug Dosing Est GFR ( Amer) ml/min Est GFR (Non-Af Amer) ml/min BUN/Creatinine Ratio (10-20) Glucose (70-99(Fasting)) mg/dl POC Glucose 174 H (70-99) mg/dl Lactate (0.4-2.0) mmol/L Calcium (8.6-10.3) mg/dl Total Bilirubin (0.2-1.0) mg/dl AST (13-39) U/L ALT (7-52) U/L Alkaline Phosphatase (34-104) U/L C-Reactive Protein (0-0.5) mg/dl Total Protein (6.0-8.3) gm/dl Albumin (3.4-5.0) gm/dl Globulin (2.5-4.0) gm/dl Albumin/Globulin Ratio (0.9-2) Procalcitonin 0.11 (0-0.5) ng/ml SARS-CoV-2, RNA, NAAT (NEGATIVE) 01/30/23 01/30/23 Range/Units 18:33 18:35 WBC (4.8-10.8) K/ul RBC (4.70-6.10) M/uL Hgb (14.0-18.0) g/dl Hct (42.0-52.0) % MCV (80.0-100.0) fL MCH (25.0-34.0) pg MCHC (32.0-36.0) g/dL RDW Std Deviation (36.4-46.3) fL RDW Coeff of Gabriela (11.5-14.5) % Plt Count (130-400) K/uL MPV (9.4-12.4) fL Immature Gran % (Auto) % Neut % (Auto) % Lymph % (Auto) % [place] % (Auto) % Eos % (Auto) % Baso % (Auto) % Neut # (Auto) (1.40-6.50) K/uL Lymph # (Auto) (1.20-3.40) K/uL [place] # (Auto) (0.11-0.59) K/uL Eos # (Auto) (0.00-0.50) K/uL Baso # (Auto) (0.00-0.20) K/uL Immature Gran # (Auto) (0.01-0.20) K/uL ESR (0-20) mm/hr PT (9.0-12.0) Seconds INR (0.9-1.1) APTT (21.0-31.0) Seconds PTT Ratio Sodium (136-145) mmol/L Potassium (3.5-5.1) mmol/L Chloride (98-107) mmol/L Carbon Dioxide (21-32) mmol/L Anion Gap (3-11) BUN (6-23) mg/dl Creatinine (0.6-1.4) mg/dl Est Cr Clr Drug Dosing Est GFR ( Amer) ml/min Est GFR (Non-Af Amer) ml/min BUN/Creatinine Ratio (10-20) Glucose (70-99(Fasting)) mg/dl POC Glucose (70-99) mg/dl Lactate 1.3 (0.4-2.0) mmol/L Calcium (8.6-10.3) mg/dl Total Bilirubin (0.2-1.0) mg/dl AST (13-39) U/L ALT (7-52) U/L Alkaline Phosphatase (34-104) U/L C-Reactive Protein (0-0.5) mg/dl Total Protein (6.0-8.3) gm/dl Albumin (3.4-5.0) gm/dl Globulin (2.5-4.0) gm/dl Albumin/Globulin Ratio (0.9-2) Procalcitonin (0-0.5) ng/ml SARS-CoV-2, RNA, NAAT NEGATIVE (NEGATIVE) Administered Medications Gabapentin (Gabapentin 300 Mg Cap) 300 mg PO TID ABIODUN Stop: 03/01/23 20:59 Last Admin: 01/30/23 21:33 Dose: 300 mg Documented By: COUNSELLORS Insulin Aspart (Insulin Aspart Per Unit Charge) 0 units SC ACHS ABIODUN Stop: 03/01/23 20:59 Last Admin: 01/30/23 22:47 Dose: Not Given Documented By: COUNSELLORS Lorazepam (Lorazepam 0.5 Mg Tab) 0.5 mg PO DAILY PRN PRN Reason: anxiety/sleep Stop: 03/01/23 19:51 Last Admin: 01/30/23 21:45 Dose: 0.5 mg Documented By: COUNSELLORS Mirtazapine (Mirtazapine Tab 15 Mg Tab) 30 mg PO HS ABIODUN Stop: 03/01/23 20:59 Last Admin: 01/30/23 21:33 Dose: 30 mg Documented By: COUNSELLORS Discontinued Medications Heparin Sodium/Dextrose (Heparin Iv Adult Wt-Based Low-Dose *No* Bolus Protocol) 1 each IV ONE STA; Protocol Stop: 01/30/23 19:57 Last Admin: 01/30/23 20:41 Dose: Not Given Documented By: COUNSELLORS Piperacillin Sod/Tazobactam Sod (Zosyn) 4.5 gm in 100 mls @ 200 mls/hr IV NOW ONE Stop: 01/30/23 18:43 Last Infusion: 01/30/23 20:40 Dose: 0 mls/hr Documented By: Admin: 01/30/23 19:43 Dose: 200 mls/hr Documented By: GRISEL Vancomycin HCl 2,000 mg/ (Sodium Chloride) 540 mls @ 200 mls/hr IV NOW ONE Stop: 01/30/23 22:56 Last Admin: 01/30/23 21:31 Dose: 200 mls/hr Documented By: COUNSELLORS Insulin Glargine (Lantus Per Unit Charge) 8 units SQ BID ABIODUN Stop: 03/01/23 20:59 Last Admin: 01/30/23 21:47 Dose: Not Given Documented By: COUNSELLORS Discharge Plan Visit Data Chief Complaint: Referred by Doctor Stated Complaint: REF BY ED Provider: Janusz Amezcua Discharge Problem: Diabetic infection of left foot, PAD (peripheral artery disease), Osteomyelitis of foot, acute Patient Disposition: Being Evaluated by Hospitalist Discharge Instructions Interventions: ED Discharge Assessment Last Done: 01/30/23 22:52
[2023-01-30] MEDS ORDERED: POLYETHYLENE (MIRALAX) 17 GM PACK PO PRN (18:57)
[2023-01-30] MEDS ORDERED: ACETAMINOPHEN 325 MG TAB PO PRN (18:57)
[2023-01-30] MEDS ORDERED: ALUMINUM/MAGNESIUM SUSP 30 ML UDC PO PRN (18:57)
[2023-01-30] MEDS ORDERED: MAGNESIUM HYDROXIDE SUSP 30 ML UDC PO PRN (18:57)
[2023-01-30] MEDS ORDERED: ONDANSETRON INJ 2 MG/ML 2 ML VIAL IV PRN (18:57)
--- NOTE | 2023-01-30 19:08 | History & Physical Report ---
Date of Service January 30, 2023 Assessment & Plan (1) Diabetic infection of left foot: (2) Chronic systolic heart failure: (3) CKD (chronic kidney disease), stage III: (4) Pacemaker: (5) Diabetes mellitus type 2 with complications: (6) Coronary artery disease: (7) Atrial fibrillation: Plan Mr. Thayer is an 87 year old male that presents to the ED today per recommendations by wound clinic for evaluation of his non healing foot wound. He was seen in the setting of persistent non healing diabetic ulcers of the 5th metatarsal showing signs of tissue loss and tunneling. He has a history of PAD, CAD, atrial fibrillation on warfarin, diabetes with neuropathy and history of foot wounds. He completed a course of doxycycline 2 weeks ago; now seeing purulent drainage and has concerns of deeper infection with tunneling at this point. Patient denies fever or chills. Patient complains continues to have positive sensation in the foot. Patient has been evaluated by Pineda Ulrich and vascular surgery for possible stenting for revascularization of his nonhealing left fifth metatarsal. Per review of outpatient notes his risk of limb loss is high without revascularization. This procedure was scheduled for 02/03/2023. Per review of Dr. Ulrich' note; risk of limb loss is high without attempted revascularization. Leukocytosis 13.42, lactic acid 1.3, CRP 2.90, procalcitonin negative. In wound clinic today he was seen for diabetic ulcer right great toe postsur gical debridement and placed TheraSkin on it. 01/12/23: wound culture left foot; positive for staph 09/13/22: wound culture of left foot and toe pseudomonas Corynebacterium I talked with Dr. Ulrich who will see him tomorrow and based on his INR 1.8 would prefer he be subtherapeutic for a few days prior to surgery. For now, oot CT ordered in ED to rule out osteomyelitis or deeper infection. Started empirically on IV Zosyn + Vanco and will adjust based on blood cultures results and await formal vascular consult. Pt denies VANCE, dizziness, SOB, chest pain, palpitations, N/V/D, recent falls or trauma, visual or auditory changes, (+) sensation in right lower extremity, (-) sensation in left lower calf. Diabetic infection of left foot: Acute uncontrolled (+) erythema and approximately 1 cm wound at the base of the left pinky toe with a small opening wound to the intertriginous region between the pinky toe and fourth toe of the left foot. (+) malodorous Limited sensation. (+) dry scaly skin Leukocytosis 13.42, lactic acid 1.3, CRP 2.[address] ordered in ED to rule out osteomyelitis or deeper infection;pending IV Zosyn started in ED; will continue and add Vancomycin; adjust based on wound cultures 01/12/23: wound culture left foot; positive for staph 09/13/22: wound culture of left foot and toe pseudomonas Corynebacterium Hold Coumadin for possible surgery; NPO after MN Consult for Dr. Ulrich placed chronic CHF: Chronic stable Takes lasix; continue Last ECHO 02/11: LV function mildly reduced. LV wall thickness concentric. EF 45%. Grade I DDx. CKD stage III: Chronic stable Chronic etrry serum creatinine 0.99 Atrial fibrillation: Status post pacemaker: chronic stable takes Amiodarone; continue takes metoprolol; continue takes Coumadin; hold for now. Pt refused Heparin gtt Diabetes mellitus type 2 with peripheral neuropathy: Chronic stable limited sensation takes Gabapentin; continue Check A1C Takes Lantus for management; will place on SSI ACHS and continue Lantus Glycemic Pharmacy Disposition: PCP: Dr. Matamoros CODE STATUS: Full code VTE prophylaxis: On Coumadin; holding for now; place teds/scds I spent a total of 87 minutes coordinating, documenting, and providing care for this patient excluding time spent in the performance of separately billed services. All of the aforementioned completed while collaborating with the assigned attending physician for a full treatment plan. Please see their addendum for further details. History of Present Illness Chief Complaint: Diabetic foot ulcer Primary Care Provider: Siria hamlin [place] Mr. Thayer is an 87 year old male that presents to the ED today per recommendations by wound clinic for evaluation of his non healing foot wound. He was seen in the setting of persistent non healing diabetic ulcers of the 5th metatarsal showing signs of tissue loss and tunneling. He has a history of PAD, CAD, atrial fibrillation on warfarin, diabetes with neuropathy and history of foot wounds. He completed a course of doxycycline 2 weeks ago; now seeing purulent drainage and has concerns of deeper infection with tunneling at this point. Patient denies fever or chills. Patient complains continues to have positive sensation in the foot. Patient has been evaluated by Pineda Ulrich and vascular surgery for possible stenting for revascularization of his nonhealing left fifth metatarsal. Per review of outpatient notes his risk of limb loss is high without revascularization. This procedure was scheduled for 02/03/2023. Per review of Dr. Ulrich' note; risk of limb loss is high without attempted revascularization. Leukocytosis 13.42, lactic acid 1.3, CRP 2.90, procalcitonin negative. In wound clinic today he was seen for diabetic ulcer right great toe postsurgical debridement and placed TheraSkin on it. 01/12/23: wound culture left foot; positive for staph 09/13/22: wound culture of left foot and toe pseudomonas Corynebacterium Last ECHO 02/11: LV function mildly reduced. LV wall thickness concentric. EF 45%. Grade I DDx. I talked with Dr. Ulrich who will see him tomorrow and based on his INR 1.8 would prefer he be subtherapeutic for a few days prior to surgery. For now, oot CT ordered in ED to rule out osteomyelitis or deeper infection. Started empirically on IV Zosyn + Vanco and will adjust based on blood cultures results and await formal vascular consult. Pt denies VANCE, dizziness, SOB, chest pain, palpitations, N/V/D, recent falls or trauma, visual or auditory changes, (+) sensation in right lower extremity, (-) sensation in left lower calf. Patient will be admitted for further evaluation and management. Please see A/P for further details. Allergies Allergy/AdvReac Type Severity Reaction Status Date / Time Macrolide Antibiotics Allergy Unknown PER Verified 01/30/23 16:04 MEDICAL RECORD sildenafil Allergy Unknown SWELLING Verified 01/30/23 16:04 OF FACE AND HEAD streptomycin Allergy Unknown N/V Verified 01/30/23 16:04 sulfite Allergy Unknown THROAT Verified 01/30/23 16:04 SWELLING nitrofurantoin AdvReac Diarrhea Verified 01/30/23 16:04 Sulfites Allergy Unknown throat Uncoded 01/30/23 16:04 swelling VASODILATORS Allergy Unknown "PERIPHERAL Uncoded 01/30/23 16:04 DILATOR" swelling of face and head Streptomycin Sulfate POWD AdvReac Unknown N/V Uncoded 01/30/23 16:04 Home Medications Medication Instructions Recorded Confirmed Type amiodarone 200 mg tablet 200 mg PO QAM 01/02/18 01/30/23 History insulin glargine 100 unit/mL 8 units subcut BID 01/02/18 01/30/23 History subcutaneous solution loratadine 10 mg tablet 10 mg PO QAM 01/02/18 01/30/23 History magnesium oxide 400 mg (241.3 mg 400 mg PO QAM 01/02/18 01/30/23 History magnesium) tablet metoprolol succinate 25 mg 25 mg PO QAM 01/02/18 01/30/23 History tablet,extended release 24 hr zolpidem 5 mg tablet (Ambien) 5 mg PO HS 01/02/18 01/30/23 History gabapentin 300 mg capsule 300 mg PO TID 03/10/18 01/30/23 History docusate sodium 100 mg capsule 100 mg PO BID 04/27/22 01/30/23 History (Colace) hydrocodone 5 mg-acetaminophen 325 0.5 tab PO Q12H PRN pain,severe 04/27/22 01/30/23 History mg tablet mometasone 0.1 % topical solution 1 applic topical DAILY PRN Itching 04/27/22 01/30/23 History acetaminophen 325 mg capsule 650 mg PO QID PRN PAIN/FEVER 05/10/22 01/30/23 History furosemide 20 mg tablet 40 mg PO QAM 06/28/22 01/30/23 History bisacodyl 10 mg rectal suppository 10 mg [place] DAILY PRN Constipation 12/01/22 01/30/23 History calcium carbonate 500 mg-vitamin 1 tab PO DAILY 12/01/22 01/30/23 History D3 5 mcg (200 unit) tablet (Oyster Shell Calcium-Vitamin D3) clotrimazole 1 % topical cream 1 applic topical UD 12/01/22 01/30/23 History lorazepam 0.5 mg tablet 0.5 mg PO DAILY PRN anxiety/sleep 12/01/22 01/30/23 History mirtazapine 30 mg tablet (Remeron) 30 mg PO DAILY 12/01/22 01/30/23 History multivit,stress formula-zinc tablet 1 tab PO DAILY 12/01/22 01/30/23 History vitamin A-vitamin C-vit E-min 1 tab PO DAILY 12/01/22 01/30/23 History tablet warfarin 1 mg tablet 1 - 2 mg PO UD 12/01/22 01/30/23 History Past Med/Surg History Medical History Ambulatory dysfunction Atrial fibrillation Cerebrovascular disease Chronic systolic CHF (congestive heart failure) Compression fracture of L4 lumbar vertebra HX BROKEN BACK Coronary artery disease Diabetes mellitus type 2 with complications Diabetic neuropathy Dyslipidemia Terry catheter in place gets changed monthly Generalized OA Heart failure History of airway aspiration History of colon cancer HX COLON SURGERY History of hepatitis B History of melanoma HX MELANOMA, HX MULTIPLE SKIN CA & REMOVED History of Mohs micrographic surgery for skin cancer History of prostate cancer PROSTATECTOMY Hypertension Lumbar spinal stenosis Pacemaker "DUAL" - PT NOT SURE BRAND, PLACED D/T AFIB - ESTEBAN ZAMORANO PVD (peripheral vascular disease) Renal failure ? stage Surgical History H/O prostatectomy History of anesthesia reaction WITH TESTICULAR SURGERY, [facility] - INCREASED BP & HAD TO STAY OVERNIGHT History of cardiac cath years ago> [facility] - CHECKING FOR BLOCKAGE - NO STENTS History of colonoscopy MULTIPLE History of right hemicolectomy History of testicular surgery History of tonsillectomy and adenoidectomy Family History Mother Coronary heart disease Father Heart disease Social History Smoking Status: Never smoker Second Hand Exposure: No; Do You Dip or Chew Tobacco: No; Hx Alcohol Use: No Hx Substance Use: No Preferred Language: Sami Communication Ability: Effective Hearing Ability: Hard of Hearing Cargo Router Required: No Beliefs That Will Affect Care: None marital status: Single Current Living Situation: Jail Current Living Situation Comment: [facility] current occupational status: retired How many Children do You have: 0 Feels Safe at Home: Yes Diet: diabetic Diet Comment: Increased protein for healing per chart during the past year weight has: remained stable Assistive Devices: Walker Review of Systems Review of Systems: Neuro: (-) Falls, trauma, slurred speech HEENT: (-) VANCE, dizziness, dysphagia, visual or auditory changes CV: (-) CP, palpitations, swelling Resp: (-) SOB GI: (-) appetite changes, N/V/D, bowel changes (+) incontinence of bowel : (-) urinary changes Skin: (-) rashes Psych: (-) anxiety, depression Physical Exam Physical Exam: Neuro: AAOx4, PERRLA, no aphagia, memory changes, CNII-XII grossly intact HEENT: head normocephalic, moist mucus membranes CV: S1/S2, (-) M/G/R, (-) edema, cap refill < 3 seconds Resp: Lungs CTA in all thomas. On RA GI: Abdomen S/NT/ND, Ax4 bowel sounds, (-) CVA tenderness Musculoskeletal: 5/5 B/L UE strength, 5/5 B/L LE strength. No gait disturbance : Chronic indwelling terry; to be exchanged Skin: (-) rashes , (+) erythema and approximately 1 cm wound at the base of the left pinky toe with a small opening wound to the intertriginous region between the pinky toe and fourth toe of the left foot. (+) malodorous Limited sensation. (+) dry scaly skin Psych: euthymic mood Results & Data Results & Data Vital Signs (Past 12 Hours) Vital Signs Temp Pulse Resp BP Pulse Ox O2 Del Method 01/30/23 15:30 36.9 C 62 16 115/66 97 Room Air Laboratory Results Short CBC 01/30/23 Range/Units 16:15 WBC 13.42 H (4.8-10.8) K/ul Hgb 16.5 (14.0-18.0) g/dl Hct 46.7 (42.0-52.0) % Plt Count 293 (130-400) K/uL BMP 01/30/23 16:15 Sodium 130 L Potassium 4.0 Chloride 94 L Carbon Dioxide 30 BUN 17 Creatinine 0.99 Glucose 173 H Calcium 9.2 Liver Function 01/30/23 Range/Units 16:15 Total Bilirubin 0.8 (0.2-1.0) mg/dl AST 32 (13-39) U/L ALT 30 (7-52) U/L Alkaline Phosphatase 125 H (34-104) U/L Albumin 4.2 (3.4-5.0) gm/dl Code Status & VTE Plan Code Status Full code in the event of cardiac or respiratory arrest VTE Prophylaxis Plan VTE Prophylaxis will be ordered: Yes Supervising Physician Co-Signing Physician Notes Attending addendum: The patient was seen and examined in emergency room in presence of the caregiver He was sent in from wound clinic with worsening wound involving the left foot mainly and to some extent right foot Has had pain in the left foot as well even with history of neuropathy No fever and or chills No chest pain, palpitation or shortness of breath and no abdominal pain nausea no vomiting On examination Lying in bed comfortably and waiting for CT scan of the foot Hemodynamically stable and afebrile Chest-decreased breath sounds bilaterally with bibasilar crackles Heart-S1-S2, irregular Abdomen-benign Extremities-both the feet are bandaged with left leg warmer than the right SHOES SALESPERSON-alert, awake and oriented x3 His admission labs, and imaging studies reviewed Has bilateral nonhealing and worsening feet ulcers with diabetic neuropathy Peripheral vascular disease Significant cardiovascular disease with A-fib on Coumadin Cultures have been taken and we will start IV vancomycin and Zosyn Vascular surgery consult, wound care consult We will hold Coumadin for now as per Dr. Ulrich Agree with assessment and plan as outlined above by Esperanza Orr (6) Coronary artery disease Associated angina: without angina Coronary Disease-Associated Artery/Lesion type: [place] artery [place] vs. transplanted heart: [place] heart Qualified Code(s): I25.10 - Atherosclerotic heart disease of [place] coronary artery without angina pectoris (7) Atrial fibrillation Atrial fibrillation type: unspecified Qualified Code(s): I48.91 - Unspecified atrial fibrillation
[2023-01-30] MEDS ORDERED: VANCOMYCIN CONSULT ACTIVE PRN (19:48)
[2023-01-30] MEDS ORDERED: CARBOHYDRATES FOR HYPOGLYCEMIA PO PRN (19:50)
[2023-01-30] MEDS ORDERED: GLUCAGON FOR INJ 1 MG VIAL SQ PRN (19:50)
[2023-01-30] MEDS ORDERED: GLUCOSE 10 TAB/TUBE PO PRN (19:50)
[2023-01-30] MEDS ORDERED: DEXTROSE 50% 50 ML SYRINGE IV PRN (19:50)
[2023-01-30] MEDS ORDERED: PHARMACY GLYCEMIC MGMT CONSULT PRN (19:50)
[2023-01-30] MEDS ORDERED: GLUCOSE 40% GEL 15 GM TUBE PO PRN (19:50)
[2023-01-30] MEDS ORDERED: Heparin IV Adult Wt-Based Low-Dose *NO* Bolus Protocol IV STA (19:56)
[2023-01-30] MEDS ORDERED: HEPARIN SODIUM/DEXTROSE 25,000 UNITS/500 ML BAG IV SCH (20:15)
[2023-01-30] MEDS ORDERED: VANCOMYCIN HCL 2,000 MG in SODIUM CHLORIDE 0.9% 500 ML IV ONE (20:15)
[2023-01-30] MEDS ORDERED: LANTUS PER UNIT CHARGE SQ SCH (21:00)
[2023-01-30] MEDS: MIRTAZAPINE TAB 15 MG TAB PO SCH (21:33)
[2023-01-30] MEDS: GABAPENTIN 300 MG CAP PO SCH (21:33)
[2023-01-30] MEDS: LORazepam 0.5 MG TAB PO PRN (21:45)
[2023-01-30] MEDS: INSULIN ASPART PER UNIT CHARGE SC SCH (22:47)
[2023-01-30] MEDS ORDERED: AMIODARONE 200 MG TAB PO ONE (22:53)
--- NOTE | 2023-01-31 00:48 | CT Scan Report ---
Exam(s): CT LEFT FOOT Without Contrast EXAM: CT Left Lower Extremity Without Intravenous Contrast, Foot CLINICAL HISTORY: Reason for exam: lateral MTP wound, ?osteo. TECHNIQUE: Axial computed tomography images of the left foot without intravenous contrast. CTDI is 19.67 mGy and DLP is 367.49 mGy-cm. Automated exposure control was utilized for the study. A dose lowering technique was utilized adhering to the principles of ALARA. COMPARISON: No relevant prior studies available. FINDINGS: Markedly severe osteoporosis, which limits evaluation for subtle fractures. Lateral soft tissue wound overlying and lateral to the fifth metatarsal. 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 Correlate with physical exam. No definite osteomyelitis of the remaining toes or metatarsals. No extensor malalignment. Moderate degenerative midfoot and hindfoot arthropathy. IMPRESSION: Lateral soft tissue wound overlying and lateral to the fifth metatarsal. 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 Correlate with physical exam. Electronically signed by: Enoch Vickers MD 01/31/23 00:46 AM
[2023-01-31] MEDS: ZOLPIDEM TARTRATE 5 MG TAB PO PRN (01:08)
[2023-01-31] MEDS: PIPERACILLIN/TAZOBACTAM 4.5 GM in DEXTROSE 5% MINI-B 100 ML IV SCH ×4 (01:48→23:04)
[2023-01-31 07:04] LABS: Hematocrit (blood only) 40.3 % (42.0-52.0); Mean Corpuscular Hemoglobin 30.7 pg (25.0-34.0); Mean Corpuscular Hgb Conc 34.7 g/dL (32.0-36.0); Mean Corpuscular Volume 88.4 fL (80.0-100.0); Platelet Count 216 K/uL (130-400); RDW Coefficient of Variation 14.9 % (11.5-14.5); RDW Standard Deviation 47.9 fL (36.4-46.3); Red Blood Count 4.56 M/uL (4.70-6.10); White Blood Count 8.67 K/ul (4.8-10.8)
[2023-01-31 07:35] LABS: INR 1.9 (0.9-1.1)
[2023-01-31 07:43] LABS: Estimated Average Glucose 143 mg/dl; Hemoglobin A1C 6.6 % (4.5-5.6)
[2023-01-31 07:44] LABS: Albumin Globulin Ratio 1.2 (0.9-2); Albumin Level 3.1 gm/dl (3.4-5.0); BUN Creatinine Ratio 16.2 (10-20); Bilirubin,Total 0.7 mg/dl (0.2-1.0); Calcium 8.2 mg/dl (8.6-10.3); Creatinine Clr Calc Pharmacy 51.5 ml/min; Est GFR (African American) 68.8 ml/min; Est GFR (Non-African American) 59.4 ml/min; Globulin 2.6 gm/dl (2.5-4.0); Potassium 4.1 mmol/L (3.5-5.1); Total Protein 5.7 gm/dl (6.0-8.3)
[2023-01-31] MEDS ORDERED: VANCOMYCIN LEVEL ONE (08:00)
[2023-01-31] MEDS ORDERED: AMIODARONE 200 MG TAB PO SCH (09:00)
[2023-01-31] MEDS ORDERED: LANTUS PER UNIT CHARGE SQ SCH ×2 (09:00)
[2023-01-31] MEDS: INSULIN ASPART PER UNIT CHARGE SC SCH ×4 (09:08→21:14)
[2023-01-31] MEDS: METOPROLOL SUCC 25MG EXT REL TAB PO SCH (09:40)
[2023-01-31] MEDS: GABAPENTIN 300 MG CAP PO SCH ×3 (09:40→21:32)
[2023-01-31] MEDS: LORATADINE 10 MG TAB PO SCH (09:41)
[2023-01-31] MEDS: VANCOMYCIN HCL 750 MG in SODIUM CHLORIDE 0.9% 250 ML IV SCH ×2 (09:41→21:33)
[2023-01-31] MEDS: FUROSEMIDE 40 MG TAB PO SCH (09:41)
[2023-01-31] MEDS: MAGNESIUM OXIDE 400 MG TAB PO SCH (09:41)
--- NOTE | 2023-01-31 10:29 | Pharmacy Report ---
Pharmacy Glycemic Short Note 2 - Date of Service January 31, 2023 - Glycemic Short BSG Results (Last 24 hours): 01/30/23 01/30/23 01/30/23 16:15 17:54 22:36 Glucose 173 H POC Glucose 174 H 117 H 01/31/23 01/31/23 06:29 07:54 Glucose 133 H POC Glucose 104 H OUTPATIENT ANTIDIABETIC REGIMEN: * Lantus 16 units SQ qAM * A1c = 6.6% ASSESSMENT: * Sujit is a 87 yo T2DM admitted for non healing diabetic foot ulcer. * Patient was initially made NPO pending vascular consult eval. He was previously scheduled for revascularization of nonhealing left fifth metatarsal on 02/03/23. Lantus dosed reduced on admission for NPO status and suspected decreased need while also receiving bolus insulin. Diet resumed today at lunchtime. * During April 2022 admission, patient required Lantus 6 units BID + Novolog CF/CR 20/02 . PLAN FOR INPATIENT GLYCEMIC CONTROL: * Basal insulin * 01/31: Lantus 8 units SQ qAM * 02/01: Start Lantus 12 units SQ qAM * Bolus insulin * NovoLog per scale ACHS or Q6hrs while NPO * Goal Range: Low 110 mg/dL - High 140 mg/dL * Correction Factor: 25 mg/dL/unit * Nutritional / Prandial insulin per carb ratio of 1 unit per 9 grams CHO consumed
[2023-01-31] MEDS: CLINDAMYCIN/D5W 300 MG/50 ML BAG IV SCH ×2 (11:47→17:51)
--- NOTE | 2023-01-31 13:02 | Podiatry Consultation ---
Date of Consultation January 31, 2023 Assessment & Plan (1) Diabetic infection of left foot: At this point we will continue to monitor the progression of the ulcer, I recommend for patient to have arterial angiography and possible intervention performed to establish level of circulation. After that is established can determine how to continue to treat the foot. Patient understanding his home health care nurse was also by side and present during visit today. (2) PAD (peripheral artery disease): History of Present Illness Reason for Consultation: Left foot fifth metatarsal plantar aspect ulceration. Arterial ulcer Attending Physician: Jam Dao MD History of Present Illness Patient is a very pleasant 87-year-old male known to myself. Long history of diabetes and peripheral arterial disease as well as significant cardiac disease. Admitted to the hospital due to worsening left foot submetatarsal 5 ulcer secondary to arterial insufficiency. -Patient at this point really needs to have a more in-depth vascular study to establish how much arterial flow is present to the lower extremity on the left side. I have significant concerns about his arterial status and location of the ulceration. Given his cardiac history would want to give him the most stable result as I feel concerned about how he would recover with surgery. -From the standpoint of the cellulitis I do feel that the antibiotics he has received in the hospital seem to have improved at this point there is dark eschar present on the submetatarsal 5 area of the left foot and no longer feel that there is any malodor the area is concerning for osteomyelitis given the depth of the ulcer but again arterial status is of utmost importance. -Depending on if arterial status is improved could consider if improved antibiotics and offloading as a more conservative treatment for the ulcer if arterial status not improved patient may be a candidate for BKA but again I do not think that the decision of a BKA should be made yet I think this should be considered based upon what the arterial study and findings show. Allergies Allergy/AdvReac Type Severity Reaction Status Date / Time Macrolide Antibiotics Allergy Unknown PER Verified 01/30/23 16:04 MEDICAL RECORD sildenafil Allergy Unknown SWELLING Verified 01/30/23 16:04 OF FACE AND HEAD streptomycin Allergy Unknown N/V Verified 01/30/23 16:04 sulfite Allergy Unknown THROAT Verified 01/30/23 16:04 SWELLING nitrofurantoin AdvReac Diarrhea Verified 01/30/23 16:04 Sulfites Allergy Unknown throat Uncoded 01/30/23 16:04 swelling VASODILATORS Allergy Unknown "PERIPHERAL Uncoded 01/30/23 16:04 DILATOR" swelling of face and head Streptomycin Sulfate POWD AdvReac Unknown N/V Uncoded 01/30/23 16:04 Home Medications Medication Instructions Recorded Confirmed Type amiodarone 200 mg tablet 200 mg PO QAM 01/02/18 01/30/23 History insulin glargine 100 unit/mL 8 units subcut BID 01/02/18 01/30/23 History subcutaneous solution loratadine 10 mg tablet 10 mg PO QAM 01/02/18 01/30/23 History magnesium oxide 400 mg (241.3 mg 400 mg PO QAM 01/02/18 01/30/23 History magnesium) tablet metoprolol succinate 25 mg 25 mg PO QAM 01/02/18 01/30/23 History tablet,extended release 24 hr zolpidem 5 mg tablet (Ambien) 5 mg PO HS 01/02/18 01/30/23 History gabapentin 300 mg capsule 300 mg PO TID 03/10/18 01/30/23 History docusate sodium 100 mg capsule 100 mg PO BID 04/27/22 01/30/23 History (Colace) hydrocodone 5 mg-acetaminophen 325 0.5 tab PO Q12H PRN pain,severe 04/27/22 01/30/23 History mg tablet mometasone 0.1 % topical solution 1 applic topical DAILY PRN Itching 04/27/22 01/30/23 History acetaminophen 325 mg capsule 650 mg PO QID PRN PAIN/FEVER 05/10/22 01/30/23 History furosemide 20 mg tablet 40 mg PO QAM 06/28/22 01/30/23 History bisacodyl 10 mg rectal suppository 10 mg [place] DAILY PRN Constipation 12/01/22 01/30/23 History calcium carbonate 500 mg-vitamin 1 tab PO DAILY 12/01/22 01/30/23 History D3 5 mcg (200 unit) tablet (Oyster Shell Calcium-Vitamin D3) clotrimazole 1 % topical cream 1 applic topical UD 12/01/22 01/30/23 History lorazepam 0.5 mg tablet 0.5 mg PO DAILY PRN anxiety/sleep 12/01/22 01/30/23 History mirtazapine 30 mg tablet (Remeron) 30 mg PO DAILY 12/01/22 01/30/23 History multivit,stress formula-zinc tablet 1 tab PO DAILY 12/01/22 01/30/23 History vitamin A-vitamin C-vit E-min 1 tab PO DAILY 12/01/22 01/30/23 History tablet warfarin 1 mg tablet 1 - 2 mg PO UD 12/01/22 01/30/23 History Patient History Medical History Ambulatory dysfunction Atrial fibrillation Cerebrovascular disease Chronic systolic CHF (congestive heart failure) Compression fracture of L4 lumbar vertebra HX BROKEN BACK Coronary artery disease Diabetes mellitus type 2 with complications Diabetic neuropathy Dyslipidemia Berman catheter in place gets changed monthly Generalized OA Heart failure History of airway aspiration History of colon cancer HX COLON SURGERY History of hepatitis B History of melanoma HX MELANOMA, HX MULTIPLE SKIN CA & REMOVED History of Mohs micrographic surgery for skin cancer History of prostate cancer PROSTATECTOMY Hypertension Lumbar spinal stenosis Pacemaker "DUAL" - PT NOT SURE BRAND, PLACED D/T AFIB - [place] [place] ZAMORANO PVD (peripheral vascular disease) Renal failure ? stage Surgical History H/O prostatectomy History of anesthesia reaction WITH TESTICULAR SURGERY, [facility] - INCREASED BP & HAD TO STAY OVERNIGHT History of cardiac cath years ago> [facility] - CHECKING FOR BLOCKAGE - NO STENTS History of colonoscopy MULTIPLE History of right hemicolectomy History of testicular surgery History of tonsillectomy and adenoidectomy Family History Mother Coronary heart disease Father Heart disease Social History Smoking Status: Never smoker Second Hand Exposure: No; Do You Dip or Chew Tobacco: No; Tobacco Cessation Education Requested by Patient: No Hx Alcohol Use: No Hx Substance Use: No Preferred Language: Korean Communication Ability: Effective Hearing Ability: Hard of Hearing Odd Bundle Worker Required: No Beliefs That Will Affect Care: None marital status: Single Current Living Situation: Alone Current Living Situation Comment: caregivers come to see him daily current occupational status: retired How many Children do You have: 0 Other Information That Helps Us Care for You: No Feels Safe at Home: Yes Safety Concerns: Feels Safe At This Time Diet: diabetic Diet Comment: Increased protein for healing per chart during the past year weight has: remained stable Assistive Devices: Glasses, Walker and Wheelchair Physical Exam Skin: Submetatarsal 5 ulcer With dark eschar overlying the submetatarsal 5 bone. Surrounding tissue is intact no significant erythema no malodor. Results & Data Vital Signs (Past 12 Hours) Vital Signs Temp Pulse Pulse Resp BP Pulse Ox O2 Del Method 01/31/23 12:23 Room Air 01/31/23 12:21 36.5 C 63 18 112/72 96 Room Air 01/31/23 08:00 35.9 C L 18 122/69 93 Room Air 01/31/23 07:28 60 01/31/23 04:55 36.6 C 98 H 20 149/88 H 93 Room Air
--- NOTE | 2023-01-31 14:17 | Pharmacy Report ---
Pharmacy PK ABX Note - Date of Service January 31, 2023 - Assessment and Plan Assessment 87 year old M receiving empiric vancomycin, pip-tazo, and clindamycin for treatment of worsening diabetic left foot ulcer with concerns for osteomyelitis. Patient has arterial insufficiency. Vascular consulted - prior to admission, the patient was scheduled for vascular procedure on 02/03/23. * Worsening despite outpatient treatment with doxycycline * History of MSSA, Pseudomonas aeruginosa, E. faecalis isolated from wound, ESBL E.coli in urine * ID consulted Pertinent microbiologic data includes: 01/30/23 BC pending 01/30/23 L foot culture pending Plan Vancomycin * Loading dose: 2000 mg IV x 1 * Maintenance dose: 750 mg IV every 12 hours * Regimen is predicted to achieve target AUC/OSMAN of 400-600 mg/L.hr * Drug level ordered for 02/01 with AM labs - decided to obtain an early level due to aggressive dosing/patient age (predicted trough level ~20 mcg/mL at steady state). Pip-tazo 4.5 g IV q8h extended infusion Clindamycin 300 mg IV q8h * recommend increased dose of 900 mg IV q8h if concern for possible necrotizing infection (Hospitalist aware) Pharmacy will continue to follow and will adjust dose/frequency as necessary. Thank you.
--- NOTE | 2023-01-31 15:37 | Hospitalist Progress Note ---
Date of Service January 31, 2023 Assessment & Plan (1) Diabetic infection of left foot: (2) Chronic systolic heart failure: (3) CKD (chronic kidney disease), stage III: (4) Pacemaker: (5) Diabetes mellitus type 2 with complications: (6) Coronary artery disease: (7) Atrial fibrillation: Plan Mr. Thayer is an 87 year old male that presents to the ED today per recommendations by wound clinic for evaluation of his non healing foot wound. He was seen in the setting of persistent non healing diabetic ulcers of the 5th metatarsal showing signs of tissue loss and tunneling. He has a history of PAD, CAD, atrial fibrillation on warfarin, diabetes with neuropathy and history of foot wounds. He completed a course of doxycycline 2 weeks ago; now seeing purulent drainage and has concerns of deeper infection with tunneling at this point. Patient denies fever or chills. Patient complains continues to have positive sensation in the foot. Patient has been evaluated by Pineda Ulrich and vascular surgery for possible stenting for revascularization of his nonhealing l eft fifth metatarsal. Per review of outpatient notes his risk of limb loss is high without revascularization. This procedure was scheduled for 02/03/2023. Per review of Dr. Ulrich' note; risk of limb loss is high without attempted revascularization. Leukocytosis 13.42, lactic acid 1.3, CRP 2.90, procalcitonin negative. 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 01/12/23: wound culture left foot; positive for staph 09/13/22: wound culture of left foot and toe pseudomonas Corynebacterium Normal lactate levels --Left Foot CT:Lateral soft tissue wound overlying and lateral to the fifth metatarsal. 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 Correlate with physical exam. -- Blood cultures pending --Wound cultures pending Continue vancomycin, Zosyn, also added clindamycin Consulted podiatry, infectious disease Also consulted vascular surgery as well Will obtain arterial Doppler Hold warfarin for now as possible need for surgery Continue wound care Chronic CHF: Last ECHO 02/11: LV function mildly reduced. LV wall thickness concentric. EF 45%. Grade I DDx. Continue Lasix Monitor volume status CKD III: Chronic terry Cr at baseline Monitor renal function Avoid nephrotoxic agents as able Atrial fibrillation: S/P pacemaker: Continue amiodarone, metoprolol Coumadin on hold Monitor INR 1.9 Patient refused heparin drip per record DM II with peripheral neuropathy: HbA1C: 6.6 Continue Gabapentin Continue insulin per protocol Monitor BGs DVT Px: SCDs for now Resume Coumadin as able CODE STATUS: Full code Admission and Anticipated Discharge Date Admission Date: January 30, 2023 Subjective Patient is seen and examined at bedside States having minimal left foot pain but otherwise feels well Denies any chest pain, dyspnea, dizziness, nausea, vomiting, abdominal pain No other complaints Review of Systems Review of Systems: All systems reviewed & are unremarkable except as noted in Subjective Physical Exam Physical Exam: Physical Exam: Vitals signs as noted above General Appearance:Moderately built and nourished, no apparent distress, Elderly Head: normocephalic, Atraumatic Eyes: normal inspection, EOMI Neck: supple, Trachea midline Respiratory/Chest: Normal breath sounds, CTA, No accessory muscle use Cardiovascular: S1, S2, No murmur Abdomen/GI:Soft, Non tender, Bowel sounds present Extremities/Musculoskeletal:normal inspection, +B/L LE edema L>R, +Foot dressing Neurologic/Psych:AAOX3, grossly no focal neurological deficits Skin: normal color, warm Results & Data Results & Data Vital Signs (Past 12 Hours) Vital Signs Temp Pulse Pulse Resp BP Pulse Ox O2 Del Method 01/31/23 15:26 36.5 C 67 18 91/53 L 99 Room Air 01/31/23 12:23 Room Air 01/31/23 12:21 36.5 C 63 18 112/72 96 Room Air 01/31/23 08:00 35.9 C L 18 122/69 93 Room Air 01/31/23 07:28 60 01/31/23 04:55 36.6 C 98 H 20 149/88 H 93 Room Air Laboratory Results Short CBC 01/30/23 01/31/23 Range/Units 16:15 06:29 WBC 13.42 H 8.67 (4.8-10.8) K/ul Hgb 16.5 14.0 (14.0-18.0) g/dl Hct 46.7 40.3 L (42.0-52.0) % Plt Count 293 216 (130-400) K/uL BMP 01/30/23 01/31/23 16:15 06:29 Sodium 130 L 134 L Potassium 4.0 4.1 Chloride 94 L 98 Carbon Dioxide 30 31 BUN 17 18 Creatinine 0.99 1.11 Glucose 173 H 133 H Calcium 9.2 8.2 L Liver Function 01/30/23 01/31/23 Range/Units 16:15 06:29 Total Bilirubin 0.8 0.7 (0.2-1.0) mg/dl AST 32 20 (13-39) U/L ALT 30 19 (7-52) U/L Alkaline Phosphatase 125 H 84 (34-104) U/L Albumin 4.2 3.1 L (3.4-5.0) gm/dl (6) Coronary artery disease Coronary Disease-Associated Artery/Lesion type: [place] artery [place] vs. transplanted heart: [place] heart Associated angina: without angina Qualified Code(s): I25.10 - Atherosclerotic heart disease of [place] coronary artery without angina pectoris (7) Atrial fibrillation Atrial fibrillation type: unspecified Qualified Code(s): I48.91 - Unspecified atrial fibrillation
[2023-01-31] MEDS ORDERED: WARFARIN SOD 2 MG TAB PO SCH (16:00)
[2023-01-31] MEDS ORDERED: bisacodyL 10 MG SUPP PR PRN (16:28)
[2023-01-31] MEDS: DOCUSATE SODIUM 100 MG CAP PO SCH ×2 (17:50→21:32)
[2023-01-31] MEDS: CALCIUM 600MG + VIT D 400 IU TAB PO SCH (17:51)
[2023-01-31] MEDS: MULTIVITAMIN TAB PO SCH (17:51)
[2023-01-31] MEDS: MIRTAZAPINE TAB 15 MG TAB PO SCH (21:32)
[2023-01-31] MEDS: AMIODARONE 200 MG TAB PO SCH (21:33)
[2023-01-31] MEDS: LORazepam 0.5 MG TAB PO PRN (21:33)
--- NOTE | 2023-01-31 23:34 | Vascular Medicine Consultation ---
Date of Consultation January 31, 2023 Assessment & Plan (1) PAD (peripheral artery disease): Procedure to tomorrow 02/01/2023 2. Diabetic foot/pressure ulcerations involving toes bilaterally and LT 5th metatarsal head 3. Nonischemic cardiomyopathy, last EF 45% 4. Peripheral neuropathy 5. Coronary artery diseasemedically managed PDA disease 6. AV block post pacemaker 7. Persistent atrial fibrillation on anticoagulation 8. Bilateral left greater than right lower extremity edemasuspected lymphed leonardo on left post trauma 9. 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 Prior ultrasound suggestive of left popliteal and tibial vessel disease. Distal perfusion difficult to assess but appears significantly impaired. Feel risk of limb loss is high without attempted revascularization. Previously had discussed risks of possible endovascular intervention including vessel injury/bleeding/renal failure. Patient understood risks and wishes to proceed with attempted revascularization in effort to save his foot. Procedure previously scheduled for 02/03 and will plan to move up to tomorrow, 02/01 sometime in the afternoon. Coumadin has been on hold and can hold off on starting heparin. Please keep n.p.o. tomorrow History of Present Illness Attending Physician: Jam Dao MD History of Present Illness Mr. Thayer is a 87-year-old man admitted currently for left lower extremity diabetic foot ulcer in the setting of lower extremity PAD. Patient follows with Dr. Dacosta of [facility] for his cardiac care. 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 Lifelong non-smoker. No history of prior vascular procedures. Has had longstanding left greater than right lower extremity edema thought in part secondary to lymphedema following trauma with tibia/fibula fracture when patient was in his 20s. Was previously seen by vascular medicine 04/2020 in the setting of persistent ulcer over second toe on right foot. Underwent second toe amputation 05/[address] Moe Pringle. Previously at [facility], now at home with aids. Has essentially been nonambulatory since a fall and 04/2022 with left humeral fracture but able to transfer, take 1-2 steps. Seen initially at wound clinic 07/2022 for persistent wounds over left fifth metatarsal head and Achilles area. Arterial duplex suggestive of LT popliteal disease and bilateral tibial disease but feet appeared reasonably perfused on exam and initial conservative vascular care recommended. Since that time still undergoing treatment for right great toe ulcer and left great toe ulcer with Dr. Moe Pringel. Underwent surgical debridement and TheraSkin grafting 12/07/2022. Last seen by vascular medicine 01/19 due to left fifth metatarsal head wound which had recently deteriorated. Left heel wound healed. After discussing options plan had been for left lower extremity angiogram 02/03/2023. Patient had seen by wound clinic yesterday with concerns for cellulitis, tissue loss, new ulcers involving fourth/fifth digit and possible abscess/osteomyelitis. Now resting comfortably on broad-spectrum antibiotics without fevers/pain. Recent vascular testing: Arterial duplex 06/2022: Right [employer]INEER to popliteal patent with triphasic waveforms. Blunted monophasic waveforms in LULY, peroneal, DPA. Left P[employer]ATION ENGINEER to distal SFA patent with triphasic waveforms. Monophasic popliteal. No definite flow and peroneal, DPA. Arterial duplex 04/2020: Right BRAXTON 1.1, TBI 0.53 (93 mmHg). Left BRAXTON NC, TBI 0.47 (83 mmHg). Arterial system on the right widely patent the popliteal arteries, tibials calcified but patent with biphasic flow. On left short distal popliteal occlusion with reconstitution before TPT. LULY with multiple segmental occlusions, DPA fills via collaterals. Allergies Allergy/AdvReac Type Severity Reaction Status Date / Time Macrolide Antibiotics Allergy Unknown PER Verified 01/30/23 16:04 MEDICAL RECORD sildenafil Allergy Unknown SWELLING Verified 01/30/23 16:04 OF FACE AND HEAD streptomycin Allergy Unknown N/V Verified 01/30/23 16:04 sulfite Allergy Unknown THROAT Verified 01/30/23 16:04 SWELLING nitrofurantoin AdvReac Diarrhea Verified 01/30/23 16:04 Sulfites Allergy Unknown throat Uncoded 01/30/23 16:04 swelling VASODILATORS Allergy Unknown "PERIPHERAL Uncoded 01/30/23 16:04 DILATOR" swelling of face and head Streptomycin Sulfate POWD AdvReac Unknown N/V Uncoded 01/30/23 16:04 Home Medications Medication Instructions Recorded Confirmed Type amiodarone 200 mg tablet 200 mg PO QAM 01/02/18 01/30/23 History insulin glargine 100 unit/mL 8 units subcut BID 01/02/18 01/30/23 History subcutaneous solution loratadine 10 mg tablet 10 mg PO QAM 01/02/18 01/30/23 History magnesium oxide 400 mg (241.3 mg 400 mg PO QAM 01/02/18 01/30/23 History magnesium) tablet metoprolol succinate 25 mg 25 mg PO QAM 01/02/18 01/30/23 History tablet,extended release 24 hr zolpidem 5 mg tablet (Ambien) 5 mg PO HS 01/02/18 01/30/23 History gabapentin 300 mg capsule 300 mg PO TID 03/10/18 01/30/23 History docusate sodium 100 mg capsule 100 mg PO BID 04/27/22 01/30/23 History (Colace) hydrocodone 5 mg-acetaminophen 325 0.5 tab PO Q12H PRN pain,severe 04/27/22 01/30/23 History mg tablet mometasone 0.1 % topical solution 1 applic topical DAILY PRN Itching 04/27/22 01/30/23 History acetaminophen 325 mg capsule 650 mg PO QID PRN PAIN/FEVER 05/10/22 01/30/23 History furosemide 20 mg tablet 40 mg PO QAM 06/28/22 01/30/23 History bisacodyl 10 mg rectal suppository [address] DAILY PRN Constipation 12/01/22 01/30/23 History calcium carbonate 500 mg-vitamin 1 tab PO DAILY 12/01/22 01/30/23 History D3 5 mcg (200 unit) tablet (Oyster Shell Calcium-Vitamin D3) clotrimazole 1 % topical cream 1 applic topical UD 12/01/22 01/30/23 History lorazepam 0.5 mg tablet 0.5 mg PO DAILY PRN anxiety/sleep 12/01/22 01/30/23 History mirtazapine 30 mg tablet (Remeron) 30 mg PO DAILY 12/01/22 01/30/23 History multivit,stress formula-zinc tablet 1 tab PO DAILY 12/01/22 01/30/23 History vitamin A-vitamin C-vit E-min 1 tab PO DAILY 12/01/22 01/30/23 History tablet warfarin 1 mg tablet 1 - 2 mg PO UD 12/01/22 01/30/23 History Patient History Medical History Ambulatory dysfunction Atrial fibrillation Cerebrovascular disease Chronic systolic CHF (congestive heart failure) Compression fracture of L4 lumbar vertebra HX BROKEN BACK Coronary artery disease Diabetes mellitus type 2 with complications Diabetic neuropathy Dyslipidemia Berman catheter in place gets changed monthly Generalized OA Heart failure History of airway aspiration History of colon cancer HX COLON SURGERY History of hepatitis B History of melanoma HX MELANOMA, HX MULTIPLE SKIN CA & REMOVED History of Mohs micrographic surgery for skin cancer History of prostate cancer PROSTATECTOMY Hypertension Lumbar spinal stenosis Pacemaker "DUAL" - PT NOT SURE BRAND, PLACED D/T AFIB - ESTEBAN ZAMORANO PVD (peripheral vascular disease) Renal failure ? stage Surgical History H/O prostatectomy History of anesthesia reaction WITH TESTICULAR SURGERY, [facility] - INCREASED BP & HAD TO STAY OVERNIGHT History of cardiac cath years ago> [facility] - CHECKING FOR BLOCKAGE - NO STENTS History of colonoscopy MULTIPLE History of right hemicolectomy History of testicular surgery History of tonsillectomy and adenoidectomy Family History Mother Coronary heart disease Father Heart disease Social History Smoking Status: Never smoker Second Hand Exposure: No; Do You Dip or Chew Tobacco: No; Tobacco Cessation Education Requested by Patient: No Hx Alcohol Use: No Hx Substance Use: No Preferred Language: Maldivian Communication Ability: Effective Hearing Ability: Hard of Hearing 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 Tester Required: No Beliefs That Will Affect Care: None marital status: Single Current Living Situation: Alone Current Living Situation Comment: caregivers come to see him daily current occupational status: retired How many Children do You have: 0 Other Information That Helps Us Care for You: No Feels Safe at Home: Yes Safety Concerns: Feels Safe At This Time Diet: diabetic Diet Comment: Increased protein for healing per chart during the past year weight has: remained stable Assistive Devices: Hospital Bed, Scooter/Electric Scooter, Walker and Wheelchair Review of Systems Review of Systems: All systems reviewed & are unremarkable except as noted in HPI & below Physical Exam Physical Exam: General: Comfortable, frail no acute distress Eyes: Sclerae anicteric Lungs: Clear to auscultation bilaterally, no rhonchi or wheezes Cardiac: Irregular irregular, no murmurs Abdomen: Soft, nontender Neuro: Nonfocal Psych: Alert orient x3, normal affect and mood Extremities/Vascular: -- 2+ radial bilaterally -- Nonpalpable popliteal pulses --LT foot dressed. Sluggish capillary refill of great toe 1+ left lower extremity edema above the ankle Wound dressing recently changed. No apparent drainage, surrounding erythema or malodor. Images from most recent wound clinic reviewed Results & Data Vital Signs (Past 12 Hours) Vital Signs Temp Pulse Pulse Resp BP Pulse Ox O2 Del Method 01/31/23 19:55 97.5 F L 60 18 115/70 99 Room Air 01/31/23 15:47 60 01/31/23 15:26 97.7 F 67 18 91/53 L 99 Room Air 01/31/23 12:23 Room Air 01/31/23 12:21 97.7 F 63 18 112/72 96 Room Air PG Care Time/CCT Total # of Minutes Spent Total Time Spent with Patient: Total time spent is greater than 50% in coordination of care (as documented) at patient's floor/unit and/or counseling patient: Coding Level of Care Code INT OBSERVATION CARE 50M LVL 2 Diagnoses PAD (peripheral artery disease) I73.9
[2023-02-01] MEDS: CLINDAMYCIN/D5W 300 MG/50 ML BAG IV SCH ×3 (02:21→18:15)
[2023-02-01] MEDS: ZOLPIDEM TARTRATE 5 MG TAB PO PRN ×2 (02:26→23:53)
[2023-02-01] MEDS: HYDROCODONE/ACETAMOPHEN 5/325MG TAB PO PRN (04:23)
[2023-02-01 06:50] LABS: Hematocrit (blood only) 37.8 % (42.0-52.0); Hemoglobin 13.1 g/dl (14.0-18.0); Mean Corpuscular Hemoglobin 30.5 pg (25.0-34.0); Mean Corpuscular Hgb Conc 34.7 g/dL (32.0-36.0); Mean Corpuscular Volume 88.1 fL (80.0-100.0); Mean Platelet Volume 9.2 fL (9.4-12.4); Platelet Count 217 K/uL (130-400); RDW Coefficient of Variation 15.1 % (11.5-14.5); RDW Standard Deviation 48.5 fL (36.4-46.3); Red Blood Count 4.29 M/uL (4.70-6.10); White Blood Count 8.26 K/ul (4.8-10.8)
[2023-02-01 07:09] LABS: BUN Creatinine Ratio 14.1 (10-20); Creatinine Clr Calc Pharmacy 44.2 ml/min; Est GFR (African American) 51.1 ml/min; Est GFR (Non-African American) 44.1 ml/min; Potassium 3.8 mmol/L (3.5-5.1)
[2023-02-01 07:15] LABS: INR 2.3 (0.9-1.1); Prothrombin Time 23.5 Seconds (9.0-12.0)
[2023-02-01] MEDS ORDERED: VANCOMYCIN LEVEL ONE (08:00)
[2023-02-01] MEDS: INSULIN ASPART PER UNIT CHARGE SC SCH ×4 (08:52→21:34)
[2023-02-01] MEDS ORDERED: LANTUS PER UNIT CHARGE SQ SCH ×2 (09:00)
[2023-02-01] MEDS: PIPERACILLIN/TAZOBACTAM 4.5 GM in DEXTROSE 5% MINI-B 100 ML IV SCH ×2 (09:01→14:51)
[2023-02-01] MEDS: DOCUSATE SODIUM 100 MG CAP PO SCH ×2 (09:02→21:36)
[2023-02-01] MEDS: GABAPENTIN 300 MG CAP PO SCH ×3 (09:02→21:35)
[2023-02-01] MEDS: LORATADINE 10 MG TAB PO SCH (09:02)
[2023-02-01] MEDS: METOPROLOL SUCC 25MG EXT REL TAB PO SCH (09:02)
[2023-02-01] MEDS: MULTIVITAMIN TAB PO SCH (09:02)
[2023-02-01] MEDS: MAGNESIUM OXIDE 400 MG TAB PO SCH (09:02)
[2023-02-01] MEDS: FUROSEMIDE 40 MG TAB PO SCH (09:02)
[2023-02-01] MEDS: CALCIUM 600MG + VIT D 400 IU TAB PO SCH (09:02)
[2023-02-01] MEDS: LANTUS PER UNIT CHARGE SC SCH (09:08)
[2023-02-01] MEDS ORDERED: VANCOMYCIN HCL 1,250 MG in SODIUM CHLORIDE 0.9% 250 ML IV SCH (10:00)
--- NOTE | 2023-02-01 11:35 | Infectious Disease Consult ---
Date of Service February 01, 2023 Telehealth Information I performed this visit using a real-time telehealth connection between my location and the patients location ([facility]). After connecting through interactive tele-video, patient was identified by name and date of and/or wristband check.Patient (or authorized healthcare phone representative) was informed that this was a telemedicine visit and it was being conducted confidentially over secure lines. My office door was closed and no one else was present in the room with me.Patient (or authorized healthcare phone representative) provided consent to proceed with the visit, expressed an understanding of privacy and security of the telemedicine visit, and gave permission to have a hospital phone representative in the room in order to assist with the visit and to conduct portions of the visit, as needed. I informed the patient (or authorized healthcare phone representative) that I reviewed their record and presented the opportunity for them to ask any questions regarding the visit today. The patient agreed to participate. 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 - F/u blood cultures and wound culture - I recommend wound debridement +/- bone debridement vs partial resection as need: please, send cultures from OR for bacterial culture - Pending revascularization procedure today - Final rec to follow: duration of abx will depend on OR finding and surgical intervention More than 50% of [id number] visit was spent counseling and coordinating care pertaining to the patient's infection diagnosis, additional work-up, and treatment option(s) as well as potential adverse events of the treatment. 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 A course of doxycycline (3 weeks up to this admission) did not improve the symptoms. No fever but mild leukocytosis was noted on admission w/ elevated CRP. CT revealed mild exposed bone of the fith MT head w/ suspected intraosseous air and lateral soft tissue wound overlying the area. The patient is currently resting comfortably in bed. He reports shooting pain from L foot to leg for >4 weeks and loose BM for 3-4 weeks. Denies f/c, n/v, abd pain, sob, coughing, chest pain, or urinary symptoms. However, he has been on chronic terry for many years. Allergies Allergy/AdvReac Type Severity Reaction Status Date / Time Macrolide Antibiotics Allergy Unknown PER Verified 01/30/23 16:04 MEDICAL RECORD sildenafil Allergy Unknown SWELLING Verified 01/30/23 16:04 OF FACE AND HEAD streptomycin Allergy Unknown N/V Verified 01/30/23 16:04 sulfite Allergy Unknown THROAT Verified 01/30/23 16:04 SWELLING nitrofurantoin AdvReac Diarrhea Verified 01/30/23 16:04 Sulfites Allergy Unknown throat Uncoded 01/30/23 16:04 swelling VASODILATORS Allergy Unknown "PERIPHERAL Uncoded 01/30/23 16:04 DILATOR" swelling of face and head Streptomycin Sulfate POWD AdvReac Unknown N/V Uncoded 01/30/23 16:04 Home Medications Medication Instructions Recorded Confirmed Type amiodarone 200 mg tablet 200 mg PO QAM 01/02/18 01/30/23 History insulin glargine 100 unit/mL 8 units subcut BID 01/02/18 01/30/23 History subcutaneous solution loratadine 10 mg tablet 10 mg PO QAM 01/02/18 01/30/23 History magnesium oxide 400 mg (241.3 mg 400 mg PO QAM 01/02/18 01/30/23 History magnesium) tablet metoprolol succinate 25 mg 25 mg PO QAM 01/02/18 01/30/23 History tablet,extended release 24 hr zolpidem 5 mg tablet (Ambien) 5 mg PO HS 01/02/18 01/30/23 History gabapentin 300 mg capsule 300 mg PO TID 03/10/18 01/30/23 History docusate sodium 100 mg capsule 100 mg PO BID 04/27/22 01/30/23 History (Colace) hydrocodone 5 mg-acetaminophen 325 0.5 tab PO Q12H PRN pain,severe 04/27/22 01/30/23 History mg tablet mometasone 0.1 % topical solution 1 applic topical DAILY PRN Itching 04/27/22 01/30/23 History acetaminophen 325 mg capsule 650 mg PO QID PRN PAIN/FEVER 05/10/22 01/30/23 History furosemide 20 mg tablet 40 mg PO QAM 06/28/22 01/30/23 History bisacodyl 10 mg rectal suppository 10 mg ND DAILY PRN Constipation 12/01/22 01/30/23 History calcium carbonate 500 mg-vitamin 1 tab PO DAILY 12/01/22 01/30/23 History D3 5 mcg (200 unit) tablet (Oyster Shell Calcium-Vitamin D3) clotrimazole 1 % topical cream 1 applic topical UD 12/01/22 01/30/23 History lorazepam 0.5 mg tablet 0.5 mg PO DAILY PRN anxiety/sleep 12/01/22 01/30/23 History mirtazapine 30 mg tablet (Remeron) 30 mg PO DAILY 12/01/22 01/30/23 History multivit,stress formula-zinc tablet 1 tab PO DAILY 12/01/22 01/30/23 History vitamin A-vitamin C-vit E-min 1 tab PO DAILY 12/01/22 01/30/23 History tablet warfarin 1 mg tablet 1 - 2 mg PO UD 12/01/22 01/30/23 History Patient History Medical History Ambulatory dysfunction Atrial fibrillation Cerebrovascular disease Chronic systolic CHF (congestive heart failure) Compression fracture of L4 lumbar vertebra HX BROKEN BACK Coronary artery disease Diabetes mellitus type 2 with complications Diabetic neuropathy Dyslipidemia Terry catheter in place gets changed monthly Generalized OA Heart failure History of airway aspiration History of colon cancer HX COLON SURGERY History of hepatitis B History of melanoma HX MELANOMA, HX MULTIPLE SKIN CA & REMOVED History of Mohs micrographic surgery for skin cancer History of prostate cancer PROSTATECTOMY Hypertension Lumbar spinal stenosis Pacemaker "DUAL" - PT NOT SURE BRAND, PLACED D/T AFIB - [facility] PVD (peripheral vascular disease) Renal failure ? stage Surgical History H/O prostatectomy History of anesthesia reaction WITH TESTICULAR SURGERY, [facility] - INCREASED BP & HAD TO STAY OVERNIGHT History of cardiac cath years ago> [facility] - CHECKING FOR BLOCKAGE - NO STENTS History of colonoscopy MULTIPLE History of right hemicolectomy History of testicular surgery History of tonsillectomy and adenoidectomy Family History Mother Coronary heart disease Father Heart disease Social History Smoking Status: Never smoker Second Hand Exposure: No; Do You Dip or Chew Tobacco: No; Tobacco Cessation Education Requested by Patient: No Hx Alcohol Use: No Hx Substance Use: No Preferred Language: South African Communication Ability: Effective Hearing Ability: Hard of Hearing Medical Educator Required: No Beliefs That Will Affect Care: None marital status: Single Current Living Situation: Alone Current Living Situation Comment: caregivers come to see him daily current occupational status: retired How many Children do You have: 0 Other Information That Helps Us Care for You: No Feels Safe at Home: Yes Safety Concerns: Feels Safe At This Time Diet: diabetic Diet Comment: Increased protein for healing per chart during the past year weight has: remained stable Assistive Devices: Hospital Bed, Scooter/Electric Scooter, Walker and Wheelchair Review of Systems as HPI and all others negative Physical Exam Gen: no acute distress Neuro: alert, awake, conversant, answering questions appropriately Results & Data Vital Signs (Past 12 Hours) Vital Signs Temp Pulse Pulse Resp BP Pulse Ox O2 Del Method 02/01/23 10:36 Room Air 02/01/23 07:19 36.4 C L 62 20 172/79 H 100 Room Air 02/01/23 07:06 60 02/01/23 03:58 36.4 C L 60 18 115/67 96 Room Air 01/31/23 23:53 36.5 C 60 18 133/73 99 Room Air 02/01/23 00:01 Room Air Laboratory Results WBC 13.42K ->-> 8.26K H 13.1 Plt 217K Cr 1.47 (CrCl 44.2) ESR 31 PCT 0.11 Diagnostic Findings Prior wound cultures: MSSA (R to clinda), E faecalis, PSA (troncoso S) Blood cx (01/30): NGTD L foot superficial wound cx (01/30): probable Enterococcus L foot CT (01/30/23): Lateral soft tissue wound overlying and lateral to the fifth metatarsal. 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 Medications Administered Vancomycin iv, zosyn, and clindamycin iv.
--- NOTE | 2023-02-01 13:00 | Podiatry Consultation ---
Date of Consultation February 01, 2023 Assessment & Plan (1) Diabetic infection of left foot: At this point we will continue to monitor the progression of the ulcer, will continue to follow. (2) PAD (peripheral artery disease): History of Present Illness Reason for Consultation: Left foot ulcer Attending Physician: Jam Dao MD History of Present Illness Patient is a very pleasant 87-year-old male known to myself from clinic seen today at bedside for evaluation of left foot plantar fifth metatarsal head ulcer. CT scan showing signs of likely osteomyelitis x-ray also showing likely symptoms of osteomyelitis. Similar appearance as evaluation yesterday at bedside all dressings were removed ulceration evaluated there is some hypergranular tissue noted in the more distal portion of the ulceration with nonviable black eschar and nonviable tissue. Further treatment is really dependent upon circular status he is giovanni eduled later today for angiography with Dr. Ulrich -We will continue antibiotics currently as well as dressings and await findings from vascular study. Allergies Allergy/AdvReac Type Severity Reaction Status Date / Time Macrolide Antibiotics Allergy Unknown PER Verified 01/30/23 16:04 MEDICAL RECORD sildenafil Allergy Unknown SWELLING Verified 01/30/23 16:04 OF FACE AND HEAD streptomycin Allergy Unknown N/V Verified 01/30/23 16:04 sulfite Allergy Unknown THROAT Verified 01/30/23 16:04 SWELLING nitrofurantoin AdvReac Diarrhea Verified 01/30/23 16:04 Sulfites Allergy Unknown throat Uncoded 01/30/23 16:04 swelling VASODILATORS Allergy Unknown "PERIPHERAL Uncoded 01/30/23 16:04 DILATOR" swelling of face and head Streptomycin Sulfate POWD AdvReac Unknown N/V Uncoded 01/30/23 16:04 Home Medications Medication Instructions Recorded Confirmed Type amiodarone 200 mg tablet 200 mg PO QAM 01/02/18 01/30/23 History insulin glargine 100 unit/mL 8 units subcut BID 01/02/18 01/30/23 History subcutaneous solution loratadine 10 mg tablet 10 mg PO QAM 01/02/18 01/30/23 History magnesium oxide 400 mg (241.3 mg 400 mg PO QAM 01/02/18 01/30/23 History magnesium) tablet metoprolol succinate 25 mg 25 mg PO QAM 01/02/18 01/30/23 History tablet,extended release 24 hr zolpidem 5 mg tablet (Ambien) 5 mg PO HS 01/02/18 01/30/23 History gabapentin 300 mg capsule 300 mg PO TID 03/10/18 01/30/23 History docusate sodium 100 mg capsule 100 mg PO BID 04/27/22 01/30/23 History (Colace) hydrocodone 5 mg-acetaminophen 325 0.5 tab PO Q12H PRN pain,severe 04/27/22 10/0 01/14 History mg tablet mometasone 0.1 % topical solution 1 applic topical DAILY PRN Itching 04/27/22 01/30/23 History acetaminophen 325 mg capsule 650 mg PO QID PRN PAIN/FEVER 05/10/22 01/30/23 History furosemide 20 mg tablet 40 mg PO QAM 06/28/22 01/30/23 History bisacodyl 10 mg rectal suppository 10 mg MD DAILY PRN Constipation 12/01/22 01/30/23 History calcium carbonate 500 mg-vitamin 1 tab PO DAILY 12/01/22 01/30/23 History D3 5 mcg (200 unit) tablet (Oyster Shell Calcium-Vitamin D3) clotrimazole 1 % topical cream 1 applic topical UD 12/01/22 01/30/23 History lorazepam 0.5 mg tablet 0.5 mg PO DAILY PRN anxiety/sleep 12/01/22 01/30/23 History mirtazapine 30 mg tablet (Remeron) 30 mg PO DAILY 12/01/22 01/30/23 History multivit,stress formula-zinc tablet 1 tab PO DAILY 12/01/22 01/30/23 History vitamin A-vitamin C-vit E-min 1 tab PO DAILY 12/01/22 01/30/23 History tablet warfarin 1 mg tablet 1 - 2 mg PO UD 12/01/22 01/30/23 History Patient History Medical History Ambulatory dysfunction Atrial fibrillation Cerebrovascular disease Chronic systolic CHF (congestive heart failure) Compression fracture of L4 lumbar vertebra HX BROKEN BACK Coronary artery disease Diabetes mellitus type 2 with complications Diabetic neuropathy Dyslipidemia Berman catheter in place gets changed monthly Generalized OA Heart failure History of airway aspiration History of colon cancer HX COLON SURGERY History of hepatitis B History of melanoma HX MELANOMA, HX MULTIPLE SKIN CA & REMOVED History of Mohs micrographic surgery for skin cancer History of prostate cancer PROSTATECTOMY Hypertension Lumbar spinal stenosis Pacemaker "DUAL" - PT NOT SURE BRAND, PLACED D/T AFIB - [facility] PVD (peripheral vascular disease) Renal failure ? stage Surgical History H/O prostatectomy History of anesthesia reaction WITH TESTICULAR SURGERY, [facility] - INCREASED BP & HAD TO STAY OVERNIGHT History of cardiac cath years ago> [facility] - CHECKING FOR BLOCKAGE - NO STENTS History of colonoscopy MULTIPLE History of right hemicolectomy History of testicular surgery History of tonsillectomy and adenoidectomy Family History Mother Coronary heart disease Father Heart disease Social History Smoking Status: Never smoker Second Hand Exposure: No; Do You Dip or Chew Tobacco: No; Tobacco Cessation Education Requested by Patient: No Hx Alcohol Use: No Hx Substance Use: No Preferred Language: Qatari Communication Ability: Effective Hearing Ability: Hard of Hearing Motor Room Controller Required: No Beliefs That Will Affect Care: None marital status: Single Current Living Situation: Alone Current Living Situation Comment: caregivers come to see him daily current occupational status: retired How many Children do You have: 0 Other Information That Helps Us Care for You: No Feels Safe at Home: Yes Safety Concerns: Feels Safe At This Time Diet: diabetic Diet Comment: Increased protein for healing per chart during the past year weight has: remained stable Assistive Devices: Hospital Bed, Scooter/Electric Scooter, Walker and Wheelchair Physical Exam Skin: Ulceration present plantar aspect fifth metatarsal head left foot with bone likely osteomyelitis underlying ulceration some hypergranular tissue is present upon removal of the Xeroform dressing there was some bleeding from the hypergranular tissue remaining tissue is dark nonviable eschar. Foot has nonpalpable pulses skin is very thin and shiny. Dressings reapplied consisting of Xeroform 4 x 4 gauze roll gauze and an Rey bandage. Patient scheduled later today for vascular procedure. Results & Data Vital Signs (Past 12 Hours) Vital Signs Temp Pulse Pulse Resp BP BP Pulse Ox 02/01/23 11:34 36.6 C 59 L 18 156/75 H 98 02/01/23 10:36 02/01/23 07:19 36.4 C L 62 20 172/79 H 100 02/01/23 07:06 60 02/01/23 03:58 36.4 C L 60 18 115/67 96 O2 Del Method 02/01/23 11:34 Room Air 02/01/23 10:36 Room Air 02/01/23 07:19 Room Air 02/01/23 07:06 02/01/23 03:58 Room Air
[2023-02-01] MEDS ORDERED: SODIUM CHLORIDE 0.9% 1,000 ML IV ONE (13:51)
[2023-02-01] MEDS ORDERED: PHYTONADIONE 5 MG TAB PO ONE (13:51)
--- NOTE | 2023-02-01 17:23 | Hospitalist Progress Note ---
Date of Service February 01, 2023 Assessment & Plan (1) Diabetic infection of left foot: (2) Chronic systolic heart failure: (3) CKD (chronic kidney disease), stage III: (4) Pacemaker: (5) Diabetes mellitus type 2 with complications: (6) Coronary artery disease: (7) Atrial fibrillation: Plan Mr. Thayer is an 87 year old male that presents to the ED today per recommendations by wound clinic for evaluation of his non healing foot wound. He was seen in the setting of persistent non healing diabetic ulcers of the 5th metatarsal showing signs of tissue loss and tunneling. He has a history of PAD, CAD, atrial fibrillation on warfarin, diabetes with neuropathy and history of foot wounds. He completed a course of doxycycline 2 weeks ago; now seeing purulent drainage and has concerns of deeper infection with tunneling at this point. Patient denies fever or chills. Patient complains continues to have positive sensation in the foot. Patient has been evaluated by Pineda Ulrich and vascular surgery for possible stenting for revascularization of his nonhealing l eft fifth metatarsal. Per review of outpatient notes his risk of limb loss is high without revascularization. This procedure was scheduled for 02/03/2023. Per review of Dr. Ulrich' note; risk of limb loss is high without attempted revascularization. Leukocytosis 13.42, lactic acid 1.3, CRP 2.90, procalcitonin negative. 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 01/12/23: wound culture left foot; positive for staph 09/13/22: wound culture of left foot and toe pseudomonas Corynebacterium Normal lactate levels --Left Foot CT:Lateral soft tissue wound overlying and lateral to the fifth metatarsal. 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 Correlate with physical exam. -- Blood cultures negative to date --Wound cultures pending: Probable Enterococcus Continue Zosyn, clindamycin for now Vancomycin changed to daptomycin given worsening renal function Consulted podiatry, infectious disease Also consulted vascular surgery as well Hold warfarin for now Continue wound care Given vitamin K as INR 2.3 today NPO after midnight for surgery tomorrow Chronic CHF: Last ECHO 10/21: LV function mildly reduced. LV wall thickness concentric. EF 45%. Grade I DDx. Hold Lasix Monitor volume status ALISSA on CKD III: Chronic terry Monitor renal function Avoid nephrotoxic agents as able Atrial fibrillation: S/P pacemaker: Continue amiodarone, metoprolol Coumadin on hold Monitor INR 2.3 today DM II with peripheral neuropathy: HbA1C: 6.6 Continue Gabapentin Continue insulin per protocol Monitor BGs DVT Px: SCDs for now INR therapeutic Resume Coumadin as able CODE STATUS: Full code Admission and Anticipated Discharge Date Admission Date: January 30, 2023 Subjective Patient is seen and examined at bedside Left foot pain is better today per patient Discussed with vascular surgery today Denies any chest pain, dyspnea, dizziness, nausea, vomiting, abdominal pain No other complaints Review of Systems Review of Systems: All systems reviewed & are unremarkable except as noted in Subjective Physical Exam Physical Exam: Physical Exam: Vitals signs as noted above General Appearance:Moderately built and nourished, no apparent distress, Elderly Head: normocephalic, Atraumatic Eyes: normal inspection, EOMI Neck: supple, Trachea midline Respiratory/Chest: Normal breath sounds, CTA, No accessory muscle use Cardiovascular: S1, S2, No murmur Abdomen/GI:Soft, Non tender, Bowel sounds present Extremities/Musculoskeletal:normal inspection, +B/L LE edema L>R, +Foot dressing Neurologic/Psych:AAOX3, grossly no focal neurological deficits Skin: normal color, warm Results & Data Results & Data Vital Signs (Past 12 Hours) Vital Signs Temp Pulse Pulse Resp BP BP Pulse Ox 02/01/23 14:53 36.4 C L 59 L 18 129/77 96 02/01/23 15:23 60 02/01/23 11:34 36.6 C 59 L 18 156/75 H 98 02/01/23 10:36 02/01/23 07:19 36.4 C L 62 20 172/79 H 100 02/01/23 07:06 60 O2 Del Method 02/01/23 14:53 Room Air 02/01/23 15:23 02/01/23 11:34 Room Air 02/01/23 10:36 Room Air 02/01/23 07:19 Room Air 02/01/23 07:06 Laboratory Results Short CBC 02/01/23 Range/Units 06:09 WBC 8.26 (4.8-10.8) K/ul Hgb 13.1 L (14.0-18.0) g/dl Hct 37.8 L (42.0-52.0) % Plt Count 217 (130-400) K/uL [facility] 02/01/23 06:09 Sodium 133 L Potassium 3.8 Chloride 98 Carbon Dioxide 31 BUN 20 Creatinine 1.42 H D Glucose 119 H Calcium 8.0 L (6) Coronary artery disease Coronary Disease-Associated Artery/Lesion type: [place] artery [place] vs. transplanted heart: [place] heart Associated angina: without angina Qualified Code(s): I25.10 - Atherosclerotic heart disease of [place] coronary artery without angina pectoris (7) Atrial fibrillation Atrial fibrillation type: unspecified Qualified Code(s): I48.91 - Unspecified atrial fibrillation
--- NOTE | 2023-02-01 20:51 | Vascular Medicine ProgressNote ---
Date of Service February 01, 2023 Assessment & Plan (1) PAD (peripheral artery disease): Plan: 2. Diabetic foot/pressure ulcerations involving toes bilaterally and LT 5th metatarsal head 3. Nonischemic cardiomyopathy, last EF 45% 4. Peripheral neuropathy 5. Coronary artery diseasemedically managed PDA disease 6. AV block post pacemaker 7. Persistent atrial fibrillation on anticoagulation 8. Bilateral left greater than right lower extremity edemasuspected lymphedema on left post trauma 9. 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 Agree with oral vitamin K, holding Lasix and additional IV fluids today. Targeting possible angiogram late tomorrow morning if INR/SCR improved. Please keep n.p.o. past midnight. Admission and Anticipated Discharge Date Admission Date: January 30, 2023 Subjective Feeling fine this afternoon. Denies any significant left lower extremity pain. No other new complaints. INR today up to 2.3. Serum creatinine went up today to 1.4. Left foot wound culture growing probable Enterococcus Review of Systems Review of Systems: All systems reviewed & are unremarkable except as noted in HPI & below Physical Exam Physical Exam: General: Comfortable, frail no acute distress Eyes: Sclerae anicteric Lungs: Clear to auscultation bilaterally, no rhonchi or wheezes Cardiac: Irregular irregular, no murmurs Abdomen: Soft, nontender Neuro: Nonfocal Psych: Alert orient x3, normal affect and mood Extremities/Vascular: -- 2+ radial bilaterally -- Nonpalpable popliteal pulses --LT foot dressed. 1+ left lower extremity edema above the ankle Wound dressing recently changed. No apparent drainage, surrounding erythema or malodor. Images from most recent wound clinic reviewed Results & Data Vital Signs (Past 12 Hours) Vital Signs Temp Pulse Pulse Resp BP BP Pulse Ox 02/01/23 19:42 97.7 F 60 18 122/74 99 02/01/23 14:53 97.5 F L 59 L 18 129/77 96 02/01/23 15:23 60 02/01/23 11:34 97.9 F 59 L 18 156/75 H 98 02/01/23 10:36 O2 Del Method 02/01/23 19:42 Room Air 02/01/23 14:53 Room Air 02/01/23 15:23 02/01/23 11:34 Room Air 02/01/23 10:36 Room Air PG Care Time/CCT Total # of Minutes Spent Total Time Spent with Patient: Total time spent is greater than 50% in coordination of care (as documented) at patient's floor/unit and/or counseling patient: Coding Level of Care Code 05959 SUB INP/OBS CARE 2/35MIN Diagnoses PAD (peripheral artery disease) I73.9
[2023-02-01] MEDS: MIRTAZAPINE TAB 15 MG TAB PO SCH (21:35)
[2023-02-01] MEDS: AMIODARONE 200 MG TAB PO SCH (21:35)
[2023-02-01] MEDS: LORazepam 0.5 MG TAB PO PRN (21:39)
[2023-02-02] MEDS: PIPERACILLIN/TAZOBACTAM 4.5 GM in DEXTROSE 5% MINI-B 100 ML IV SCH ×4 (00:16→23:27)
[2023-02-02] MEDS: CLINDAMYCIN/D5W 300 MG/50 ML BAG IV SCH ×3 (02:53→21:07)
[2023-02-02 07:06] LABS: Hematocrit (blood only) 41.2 % (42.0-52.0); Hemoglobin 14.2 g/dl (14.0-18.0); Mean Corpuscular Hemoglobin 30.8 pg (25.0-34.0); Mean Corpuscular Hgb Conc 34.5 g/dL (32.0-36.0); Mean Corpuscular Volume 89.4 fL (80.0-100.0); Mean Platelet Volume 9.3 fL (9.4-12.4); Platelet Count 224 K/uL (130-400); RDW Coefficient of Variation 14.8 % (11.5-14.5); RDW Standard Deviation 48.8 fL (36.4-46.3); Red Blood Count 4.61 M/uL (4.70-6.10); White Blood Count 9.64 K/ul (4.8-10.8)
[2023-02-02 07:32] LABS: BUN Creatinine Ratio 13.7 (10-20); Calcium 8.5 mg/dl (8.6-10.3); Est GFR (African American) 56.3 ml/min; Est GFR (Non-African American) 48.6 ml/min; Potassium 3.4 mmol/L (3.5-5.1)
[2023-02-02] MEDS: INSULIN ASPART PER UNIT CHARGE SC SCH ×4 (07:47→21:26)
[2023-02-02 07:49] LABS: INR 1.6 (0.9-1.1); Prothrombin Time 16.7 Seconds (9.0-12.0)
[2023-02-02] MEDS ORDERED: POTASSIUM CHLORIDE CRTAB 20 MEQ TABCR PO ONE (08:58)
[2023-02-02] MEDS: DAPTOmycin 500 MG in SYRINGE 0 ML IV SCH (09:08)
[2023-02-02] MEDS: LANTUS PER UNIT CHARGE SC SCH (09:08)
[2023-02-02] MEDS: METOPROLOL SUCC 25MG EXT REL TAB PO SCH ×2 (09:09→09:17)
[2023-02-02] MEDS: MAGNESIUM OXIDE 400 MG TAB PO SCH (09:09)
[2023-02-02] MEDS: GABAPENTIN 300 MG CAP PO SCH ×4 (09:09→21:09)
[2023-02-02] MEDS: DOCUSATE SODIUM 100 MG CAP PO SCH ×2 (09:09→21:09)
[2023-02-02] MEDS: LORATADINE 10 MG TAB PO SCH (09:09)
[2023-02-02] MEDS: CALCIUM 600MG + VIT D 400 IU TAB PO SCH (09:09)
[2023-02-02] MEDS: MULTIVITAMIN TAB PO SCH (09:10)
[2023-02-02] MEDS ORDERED: LIDOCAINE 1% LOCAL 20 ML VIAL ONE (12:32)
--- NOTE | 2023-02-02 12:34 | Pre Anesthesia Assessment ---
Date of Service February 02, 2023 Pre Sedation Assessment Vital Signs Temp Pulse Pulse Resp BP BP Pulse Ox 02/02/23 11:15 98.1 F 63 18 147/75 H 96 02/02/23 07:26 97.5 F L 67 20 155/77 H 97 02/02/23 03:20 97.3 F L 66 18 155/79 H 100 02/02/23 00:00 60 02/01/23 21:00 02/01/23 23:53 97.7 F 60 18 133/75 98 02/01/23 19:42 97.7 F 60 18 122/74 99 02/01/23 14:53 97.5 F L 59 L 18 129/77 96 02/01/23 15:23 60 O2 Del Method 02/02/23 11:15 Room Air 02/02/23 07:26 Room Air 02/02/23 03:20 Room Air 02/02/23 00:00 02/01/23 21:00 Room Air 02/01/23 23:53 Room Air 02/01/23 19:42 Room Air 02/01/23 14:53 Room Air 02/01/23 15:23 Cardiovascular RRR, no murmur, no edema Respiratory normal respiratory effort, lungs clear to auscultation Pre-Sedation Airway Assessment Smoking Status: Never smoker Hx Sleep Apnea: No Hx Difficult Intubation: No Short, Thick Neck: No Thyromental Distance: > or= 3.5 Finger Breadths Oral Cavity: + WNL Mallampati Class: III ASA: ASA3 Procedure Planning Contraindications for Sedation: none Current Medications Reviewed: Yes Notes The planned sedation has been discussed with the patient. Informed Consent was obtained. I have identified the patient, determined the appropriateness of sedation and have assessed the patient immediately prior to the procedure. All medicine(s) and interventions are by my order.
[2023-02-02] MEDS ORDERED: MIDAZOLAM HCL 5 MG/ML 1 ML VIAL ONE (12:55)
[2023-02-02] MEDS ORDERED: fentaNYL citrate PF 100 MCG/2 ML VIAL ONE (12:55)
[2023-02-02] MEDS ORDERED: HEPARIN (PORCINE) 1000 UNIT/ML 10 ML (CATH LAB USE ONLY) ONE (13:08)
[2023-02-02] MEDS ORDERED: niCARdipine HCL INJ 2.5 MG/ML 10 ML AMP ONE (13:09)
[2023-02-02] MEDS ORDERED: NITROGLYCERIN/D5W 100MCG/ML 20ML SYR ONE (13:12)
[2023-02-02] MEDS ORDERED: CLOPIDOGREL BISULFATE 300 MG TAB ONE (14:42)
--- NOTE | 2023-02-02 15:48 | Hospitalist Progress Note ---
Date of Service February 02, 2023 Assessment & Plan (1) Diabetic infection of left foot: (2) Chronic systolic heart failure: (3) CKD (chronic kidney disease), stage III: (4) Pacemaker: (5) Diabetes mellitus type 2 with complications: (6) Coronary artery disease: (7) Atrial fibrillation: Plan Mr. Thayer is an 87 year old male that presents to the ED today per recommendations by wound clinic for evaluation of his non healing foot wound. He was seen in the setting of persistent non healing diabetic ulcers of the 5th metatarsal showing signs of tissue loss and tunneling. He has a history of PAD, CAD, atrial fibrillation on warfarin, diabetes with neuropathy and history of foot wounds. He completed a course of doxycycline 2 weeks ago; now seeing purulent drainage and has concerns of deeper infection with tunneling at this point. Patient denies fever or chills. Patient complains continues to have positive sensation in the foot. Patient has been evaluated by Pineda Ulrich and vascular surgery for possible stenting for revascularization of his nonhealing l eft fifth metatarsal. Per review of outpatient notes his risk of limb loss is high without revascularization. This procedure was scheduled for 02/03/2023. Per review of Dr. Ulrich' note; risk of limb loss is high without attempted revascularization. Leukocytosis 13.42, lactic acid 1.3, CRP 2.90, procalcitonin negative. 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 01/12/23: wound culture left foot; positive for staph 09/13/22: wound culture of left foot and toe pseudomonas Corynebacterium Normal lactate levels --Left Foot CT:Lateral soft tissue wound overlying and lateral to the fifth metatarsal. 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 Correlate with physical exam. -- Blood cultures negative to date --Wound cultures: Probable Enterococcus Continue Zosyn, clindamycin for now Vancomycin changed to daptomycin given worsening renal function Consulted podiatry, infectious disease Also consulted vascular surgery as well Hold warfarin for now Continue wound care Given vitamin K on 02/01/23 INR 1.6 today Plan for angiogram with stent placement today Chronic CHF: Last ECHO 02/11: LV function mildly reduced. LV wall thickness concentric. EF 45%. Grade I DDx. Hold Lasix Monitor volume status ALISSA on CKD III: Chronic Berman Monitor renal function Avoid nephrotoxic agents as able Cr 1.3 today Hypokalemia Replete electrolytes as needed Atrial fibrillation: S/P pacemaker: Continue amiodarone, metoprolol Monitor INR Resume Coumadin as able DM II with peripheral neuropathy: HbA1C: 6.6 Continue Gabapentin Continue insulin per protocol Monitor BGs DVT Px: SCDs for now Re: Vascular procedure Resume Coumadin as able CODE STATUS: Full code Admission and Anticipated Discharge Date Admission Date: January 30, 2023 Subjective Patient is seen and examined at bedside Planned for angiogram with stent placement today Left foot pain is well controlled Denies any chest pain, dyspnea, dizziness, nausea, vomiting, abdominal pain No other complaints Review of Systems Review of Systems: All systems reviewed & are unremarkable except as noted in Subjective Physical Exam Physical Exam: Physical Exam: Vitals signs as noted above General Appearance:Moderately built and nourished, no apparent distress, Elderly Head: normocephalic, Atraumatic Eyes: normal inspection, EOMI Neck: supple, Trachea midline Respiratory/Chest: Normal breath sounds, CTA, No accessory muscle use Cardiovascular: S1, S2, No murmur Abdomen/GI:Soft, Non tender, Bowel sounds present Extremities/Musculoskeletal:normal inspection, +B/L LE edema L>R, +Foot dressing Neurologic/Psych:AAOX3, grossly no focal neurological deficits Skin: normal color, warm Results & Data Results & Data Vital Signs (Past 12 Hours) Vital Signs Temp Pulse Resp BP BP Pulse Ox O2 Del Method 02/02/23 15:15 60 18 159/71 H 99 Room Air 02/02/23 15:00 75 18 146/66 H 99 Room Air 02/02/23 12:30 65 18 160/69 H 96 Room Air 02/02/23 11:15 36.7 C 63 18 147/75 H 96 Room Air 02/02/23 07:26 36.4 C L 67 20 155/77 H 97 Room Air Laboratory Results Short CBC 02/02/23 Range/Units 06:20 WBC 9.64 (4.8-10.8) K/ul Hgb 14.2 (14.0-18.0) g/dl Hct 41.2 L (42.0-52.0) % Plt Count 224 (130-400) K/uL BMP 02/02/23 06:20 Sodium 136 Potassium 3.4 L Chloride 100 Carbon Dioxide 28 BUN 18 Creatinine 1.31 Glucose 117 H Calcium 8.5 L (6) Coronary artery disease Coronary Disease-Associated Artery/Lesion type: [place] artery [place] vs. transplanted heart: [place] heart Associated angina: without angina Qualified Code(s): I25.10 - Atherosclerotic heart disease of [place] coronary artery without angina pectoris (7) Atrial fibrillation Atrial fibrillation type: unspecified Qualified Code(s): I48.91 - Unspecified atrial fibrillation
--- NOTE | 2023-02-02 16:33 | Post Anesthesia Assessment ---
Date of Service February 02, 2023 Post Sedation Assessment Vital Signs Temp Pulse Pulse Resp BP BP Pulse Ox 02/02/23 16:15 60 18 134/74 99 02/02/23 16:00 60 18 145/68 H 99 02/02/23 15:45 60 18 126/77 99 02/02/23 15:30 63 18 138/76 99 02/02/23 15:15 60 18 159/71 H 99 02/02/23 15:00 75 18 146/66 H 99 02/02/23 12:30 65 18 160/69 H 96 02/02/23 11:15 98.1 F 63 18 147/75 H 96 02/02/23 07:26 97.5 F L 67 20 155/77 H 97 02/02/23 03:20 97.3 F L 66 18 155/79 H 100 02/02/23 00:00 60 02/01/23 21:00 02/01/23 23:53 97.7 F 60 18 133/75 98 02/01/23 19:42 97.7 F 60 18 122/74 99 O2 Del Method 02/02/23 16:15 Room Air 02/02/23 16:00 Room Air 02/02/23 15:45 Room Air 02/02/23 15:30 Room Air 02/02/23 15:15 Room Air 02/02/23 15:00 Room Air 02/02/23 12:30 Room Air 02/02/23 11:15 Room Air 02/02/23 07:26 Room Air 02/02/23 03:20 Room Air 02/02/23 00:00 02/01/23 21:00 Room Air 02/01/23 23:53 Room Air 02/01/23 19:42 Room Air Recovery Score Activity: Moves 4 extremities Respiration: Deep Breath/Cough Circulation: +/-20% PreAnes Value Consciousness: Fully Awake Oxygen Saturation: > 92% On Room Air Post Anesthesia Score: 10 Discharge Sedation Level of Care: Fast Track Phase II Post Sedation Plan On clinical assessment, the patient appears to have tolerated the sedation without complications. Patient is recovering as anticipated. Patient will continue to be monitored by nursing and may be discharged when sed ation discharge criteria are met per below protocol. Upon Completions of procedure up to 15 minutes continue every 5 minute vital signs and the P.A.R. score; then discharge to a Phase I or Fast Track to Phase II per the following guidelines: * Discharge Patient to appropriate Phase II area if PAR is 8 or greater or return to pre- procedure baseline. The post - procedure orders will be as directed. * If PAR score is less than 8 or not return to pre-procedure baseline then patient will follow Phase I monitoring till PAR is reached for Phase II. The Phase I may be done in procedure room or may call to secure a Phase I area. * If naloxone or flumazenil are used for reversal, hold in Phase I for continued monitoring from when last reversal dose was given for a minimum of 60 minutes or longer pending the nurse and/or physician discretion of patient condition before discharge to Phase II. Please call the Sedation Physician to re-evaluate and complete post-note for discharge to Phase II area. Do NOT discharge from procedure sedation or Phase 1 until post- sedation evaluation note is complete by procedure /sedation MD Sedation Discharge Instructions to be given to the patient at discharge to home.
[2023-02-02] MEDS ORDERED: SODIUM CHLORIDE 0.9% 1,000 ML IV SCH (16:45)
--- NOTE | 2023-02-02 16:53 | Endovascular Procedure Note ---
[facility] Endovascular Procedure Rpt Pre & Post Diagnosis Peripheral arterial disease I identified the patient and participated in the time-out.: Yes Procedure Operation Date: 02/02/23 11:00 Actual Procedures p Angio Extremity Unilateral - MD linwood Díaz Ultrasound Vascular Access - Genaro Ulrich MD p Fem Pop Stent Balloon - MD linwood Díaz Tibial Peroneal Balloon - MD linwood Díaz Placement Art Occlusive Device - Genaro Ulrich MD Surgeon Genaro Ulrich MD Sustainment Logistics Analyst [place] Estimated Blood Loss 20 Findings See Below Abdominal aorta--calcified, no significant aneurysmal or stenotic disease Right lower extremity-- -Common iliaccalcified, no significant disease -External iliaccalcified, no significant disease Internal iliacpatent -CFAno significant disease Left lower extremity-- -Common iliaccalcified, 20% ostial -External iliacwidely patent -Internal iliacwidely patent -SALES ADMINISTRATOR, profunda widely patent -SFAcalcified, mild diffuse disease, up to 40% in distal segment -Poplitealmid segment ectatic with 50% stenosis, 100% latemid to distal occlusion with reconstitution just before takeoff of LULY. TPT--30 to 40% disease -ATAdiffuse proximal disease up to 90%. 100% mid occlusion. -PTAcalcified, diffuse severe mid to distal disease up to 95% with subtotal occlusion at the level of the ankle -Viwuvspw69% ostial, remainder of vessel widely patent and gives off collaterals to small DPA, plantar artery -DPA small caliber, diffuse disease tapers and midfoot. Small diffusely diseased plantar arteries partially fills via collaterals Anesthesia Type RN Sedation Radiation Exposure (mGv) Radiation (mGy): 291 Contrast Contrast: 120 Complications none Disposition Disposition: PCU Description of Procedure Right SALES ADMINISTRATOR obtained under ultrasound guidance, short 5Fr sheath placed Abdominal aortogram and proximal left lower extremity angiogram performed with RIM catheter. Selective angiography with quick cross catheter placed in proximal SFA. 6 Fr 65 cm destination sheath placed from right SALES ADMINISTRATOR to mid left SFA. Attempted initially to cross left popliteal occlusion with quick cross catheter and advantage wire but repeatedly ended up in a dissection plane above the takeoff of LULY. Able to redirect with V18 wire and seeker support catheter. Distal cap crossed with quick cross/wire advantage. 0.35 wire exchanged for a V18. V18 directed into B2B MANAGED SERVICE SALES EXEC and across stenosis to level of the ankle Angioplasty of popliteal with 4.0 balloon Popliteal/TPT treated with Lutonix drug-eluting balloon 4 x 100 Popliteal further dilated with 6.0 balloon. Post balloon inflation nonflow- limiting dissection noted in mid/distal popliteal Mid to distal B2B MANAGED SERVICE SALES EXEC dilated with 2.5 balloon With residual dissection in popliteal, entire length of the popliteal stented with 6.0 x 120 mm Supera stent Stent postdilated with 6.0 balloon Post procedure good angiographic result. Minimal residual dissection just proximal to takeoff of LULY, nonflow limiting. Stent well expanded with improved, brisk two-vessel distal runoff Contrast used: 120 Moderate sedation: [id number] Access closure: Angioseal Summary: 1. Left lower extremity --Mild diffuse SFA disease. 100% mid to distal popliteal occlusion. Single vessel runoff to the ankle via peroneal. 100% mid LULY occlusion. Severe diffuse B2B MANAGED SERVICE SALES EXEC disease with distal subtotal occlusion. Small diffusely diseased DPA, plantar arteries partially fill via collaterals. 2. Right lower extremity --widely patent iliacs, SALES ADMINISTRATOR. 3. Successful angioplasty of left popliteal artery occlusion with drug-eluting balloon and Supera stent placement from proximal to distal popliteal artery (6.0 x 120 mm). 4. Successful angioplasty of left posterior tibial artery with 2.5 balloon. Final result: Improved direct inline flow to the foot via peroneal and B2B MANAGED SERVICE SALES EXEC. Residual severe diffuse pedal vessel disease. Recommendations: Reviewed with clopidogrel in [employer]. Continue for 1 month. Resume anticoagulation with Coumadin Follow-up non-invasive vascular testing in 2 weeks. I attest to the content of the Intraoperative Record and any orders documented therein. Any exceptions are noted below. Vascular Charges Angiography/Venography Procedure 1: Angiography/Venography charges: [id number] Initial 3rd order or selective abd, pelvic, or LE branch Procedure 2: Angiography/Venography charges: [id number] Aortography, abd + b/l iliofem LE, catheter, radiological S&I Lower Extremity Interventions Procedure 1: Lower Extremity Intervention charges: [id number] Stent placement(s), femoral, popliteal artery(s), unilateral Procedure 2: Lower Extremity Intervention charges: [id number] Angioplasty, tibial, peroneal artery, unilateral, initial vessel Additional Services Procedure 1: Additional Services Charges: 83444 Ultrasound guidance - vascular access Procedure 2: Additional Services Charges: 00706 Moderate sedation initial 15 min Procedure 3: Additional Services Charges: 40517 Moderate sedation, each additional 15 min
--- NOTE | 2023-02-02 17:22 | Vascular Medicine ProgressNote ---
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 Diabetic foot/pressure ulcerations involving toes bilaterally and LT 5th metatarsal head 3. Nonischemic cardiomyopathy, last EF 45% 4. Peripheral neuropathy 5. Coronary artery diseasemedically managed PDA disease 6. AV block post pacemaker 7. Persistent atrial fibrillation on anticoagulation 8. Bilateral left greater than right lower extremity edemasuspected lymphedema on left post trauma 9. 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 ALISSA Patient doing well following endovascular intervention earlier today. Final result of procedure showed significantly improved flow through stented popliteal and now two-vessel runoff to the foot. Patient still has diffuse pedal vessel disease but hopeful increased perfusion pressure should be adequate for wound healing. Started on clopidogrel 75 mg daily. Can resume Coumadin if no plans for additional surgery Continue to hold furosemide Repeat noninvasive vascular testing as an outpatient in 1 to 2 weeks. Admission and Anticipated Discharge Date Admission Date: January 30, 2023 Subjective Patient underwent successful endovascular intervention to left popliteal occlusion and severe diffuse PDA disease. Patient tolerated procedure well. No apparent complications. Review of Systems Review of Systems: All systems reviewed & are unremarkable except as noted in HPI & below Physical Exam Physical Exam: General: Comfortable, frail no acute distress Eyes: Sclerae anicteric Lungs: Clear to auscultation bilaterally, no rhonchi or wheezes Cardiac: Irregular irregular, no murmurs Abdomen: Soft, nontender Neuro: Nonfocal Psych: Alert orient x3, normal affect and mood Extremities/Vascular: -- 2+ radial bilaterally -- 2+ femoral artery pulses --LT foot dressed. Right foot dressed no significant lower extremity edema Wound dressing recently changed. No apparent drainage, surrounding erythema or malodor. Results & Data Vital Signs (Past 12 Hours) Vital Signs Temp Pulse Resp BP BP Pulse Ox O2 Del Method 02/02/23 16:41 97.7 F 60 18 153/82 H 100 Room Air 02/02/23 16:15 60 18 134/74 99 Room Air 02/02/23 16:00 60 18 145/68 H 99 Room Air 02/02/23 15:45 60 18 126/77 99 Room Air 02/02/23 15:30 63 18 138/76 99 Room Air 10/12/23 15:15 60 18 159/71 H 99 Room Air 02/02/23 15:00 75 18 146/66 H 99 Room Air 02/02/23 12:30 65 18 160/69 H 96 Room Air 02/02/23 11:15 98.1 F 63 18 147/75 H 96 Room Air 02/02/23 07:26 97.5 F L 67 20 155/77 H 97 Room Air PG Care Time/CCT Total # of Minutes Spent Total Time Spent with Patient: Total time spent is greater than 50% in coordination of care (as documented) at patient's floor/unit and/or counseling patient: Coding Level of Care Code 04343 SUB INP/OBS CARE 3/50MIN Diagnoses PAD (peripheral artery disease) I73.9
[2023-02-02] MEDS: AMIODARONE 200 MG TAB PO SCH (21:08)
[2023-02-02] MEDS: MIRTAZAPINE TAB 15 MG TAB PO SCH (21:09)
[2023-02-02] MEDS: LORazepam 0.5 MG TAB PO PRN (21:12)
[2023-02-02] MEDS: ZOLPIDEM TARTRATE 5 MG TAB PO PRN (23:26)
[2023-02-03] MEDS: CLINDAMYCIN/D5W 300 MG/50 ML BAG IV SCH ×3 (03:36→19:30)
[2023-02-03 06:32] LABS: Hematocrit (blood only) 38.6 % (42.0-52.0); Hemoglobin 13.2 g/dl (14.0-18.0); Mean Corpuscular Hemoglobin 30.7 pg (25.0-34.0); Mean Corpuscular Hgb Conc 34.2 g/dL (32.0-36.0); Mean Corpuscular Volume 89.8 fL (80.0-100.0); Mean Platelet Volume 9.3 fL (9.4-12.4); Platelet Count 226 K/uL (130-400); RDW Standard Deviation 49.3 fL (36.4-46.3); White Blood Count 8.22 K/ul (4.8-10.8)
[2023-02-03 06:55] LABS: BUN Creatinine Ratio 13.4 (10-20); Calcium 8.4 mg/dl (8.6-10.3); Creatinine Clr Calc Pharmacy 44.3 ml/min; Est GFR (African American) 51.1 ml/min; Est GFR (Non-African American) 44.1 ml/min; Magnesium 1.9 mg/dl (1.7-2.4)
[2023-02-03 07:14] LABS: INR 1.2 (0.9-1.1); Prothrombin Time 13.2 Seconds (9.0-12.0)
[2023-02-03] MEDS: MAGNESIUM OXIDE 400 MG TAB PO SCH (09:26)
[2023-02-03] MEDS: DOCUSATE SODIUM 100 MG CAP PO SCH ×2 (09:26→20:43)
[2023-02-03] MEDS: CALCIUM 600MG + VIT D 400 IU TAB PO SCH (09:26)
[2023-02-03] MEDS: LORATADINE 10 MG TAB PO SCH (09:26)
[2023-02-03] MEDS: GABAPENTIN 300 MG CAP PO SCH ×3 (09:26→20:40)
[2023-02-03] MEDS: METOPROLOL SUCC 25MG EXT REL TAB PO SCH (09:26)
[2023-02-03] MEDS: MULTIVITAMIN TAB PO SCH (09:26)
[2023-02-03] MEDS: CLOPIDOGREL BISULFATE 75 MG TAB PO SCH (09:27)
[2023-02-03] MEDS: INSULIN ASPART PER UNIT CHARGE SC SCH ×4 (09:29→20:38)
[2023-02-03] MEDS: LANTUS PER UNIT CHARGE SC SCH (09:29)
[2023-02-03] MEDS: DAPTOmycin 500 MG in SYRINGE 0 ML IV SCH (09:44)
[2023-02-03] MEDS: PIPERACILLIN/TAZOBACTAM 4.5 GM in DEXTROSE 5% MINI-B 100 ML IV SCH ×2 (09:44→16:21)
[2023-02-03] MEDS ORDERED: Heparin IV Adult Wt-Based Low-Dose *NO* Bolus Protocol IV SCH (11:53)
--- NOTE | 2023-02-03 12:02 | Podiatry Consultation ---
Date of Consultation February 03, 2023 Assessment & Plan (1) Diabetic infection of left foot: We will continue to monitor the progression of the ulceration, I will see patient again on Monday. Additionally I reapplied dressings consisting of Xeroform 4 x 4 gauze abdominal pads roll kerlex and an Rey bandage he will continue all antibiotics per infectious disease recommendations. (2) PAD (peripheral artery disease): History of Present Illness Reason for Consultation: Left foot ulceration in the setting of PAD Attending Physician: Rashad Johnson MD History of Present Illness Patient is a very pleasant 87-year-old male seen at bedside today along with hospitalist and nurse, underwent angioplasty yesterday with Dr. Ulrich. For the most part was able to increase circulation via two-vessel runoff but still has diffuse arterial disease distally. At this point because of patient's age and medical comorbidities and vascular status I feel that 1/5 metatarsal head resection with fifth toe amputation may still be patient with a wound and a defect that would be difficult to heal rendering him essentially in the same place he is now. Unfortunately because of the location of the ulcer would likely also have difficulty healing a TMA as well and I think the potential exists to have difficulty healing the TMA and difficulty healing the lateral part of the foot because of the location of the ulcer, in addition because of his vascular status if he does need an amputation the most viable amputation that would provide him with the best prognosis would likely be a BKA. The ulcer itself does have likely osteomyelitis per CT evaluation but has improved with antibiotics, will for the decision is made to have patient have a BKA I feel would be reasonable to have patient try 6 weeks of antibiotics for the treatment of his osteomyelitis and continued wound care to the ulceration if there is no progression or deterioration the next viable and reasonable option would likely be a BKA. But at this point because patient is otherwise stable and has had some improvement of the wound after discussion with my colleagues, we think it is reasonable to watch this wound to see how it progresses before making the decision of a BKA. This was discussed with patient today he will likely stay in the hospital until at least Monday and we will continue to monitor the wound and the progression. He is agreeable to this. Allergies Allergy/AdvReac Type Severity Reaction Status Date / Time Macrolide Antibiotics Allergy Unknown PER Verified 01/30/23 16:04 MEDICAL RECORD sildenafil Allergy Unknown SWELLING Verified 01/30/23 16:04 OF FACE AND HEAD streptomycin Allergy Unknown N/V Verified 01/30/23 16:04 sulfite Allergy Unknown THROAT Verified 01/30/23 16:04 SWELLING nitrofurantoin AdvReac Diarrhea Verified 01/30/23 16:04 Sulfites Allergy Unknown throat Uncoded 01/30/23 16:04 swelling VASODILATORS Allergy Unknown "PERIPHERAL Uncoded 01/30/23 16:04 DILATOR" swelling of face and head Streptomycin Sulfate POWD AdvReac Unknown N/V Uncoded 01/30/23 16:04 Home Medications Medication Instructions Recorded Confirmed Type amiodarone 200 mg tablet 200 mg PO QAM 01/02/18 01/30/23 History insulin glargine 100 unit/mL 8 units subcut BID 01/02/18 01/30/23 History subcutaneous solution loratadine 10 mg tablet 10 mg PO QAM 01/02/18 01/30/23 History magnesium oxide 400 mg (241.3 mg 400 mg PO QAM 01/02/18 01/30/23 History magnesium) tablet metoprolol succinate 25 mg 25 mg PO QAM 01/02/18 01/30/23 History tablet,extended release 24 hr zolpidem 5 mg tablet (Ambien) 5 mg PO HS 01/02/18 01/30/23 History gabapentin 300 mg capsule 300 mg PO TID 03/10/18 01/30/23 History docusate sodium 100 mg capsule 100 mg PO BID 04/27/22 01/30/23 History (Colace) hydrocodone 5 mg-acetaminophen 325 0.5 tab PO Q12H PRN pain,severe 04/27/22 01/30/23 History mg tablet mometasone 0.1 % topical solution 1 applic topical DAILY PRN Itching 04/27/22 01/30/23 History acetaminophen 325 mg capsule 650 mg PO QID PRN PAIN/FEVER 05/10/22 01/30/23 History furosemide 20 mg tablet 40 mg PO QAM 06/28/22 01/30/23 History bisacodyl 10 mg rectal suppository 10 mg NM DAILY PRN Constipation 12/01/22 01/30/23 History calcium carbonate 500 mg-vitamin 1 tab PO DAILY 12/01/22 01/30/23 History D3 5 mcg (200 unit) tablet (Oyster Shell Calcium-Vitamin D3) clotrimazole 1 % topical cream 1 applic topical UD 12/01/22 01/30/23 History lorazepam 0.5 mg tablet 0.5 mg PO DAILY PRN anxiety/sleep 12/01/22 01/30/23 History mirtazapine 30 mg tablet (Remeron) 30 mg PO DAILY 12/01/22 01/30/23 History multivit,stress formula-zinc tablet 1 tab PO DAILY 12/01/22 01/30/23 History vitamin A-vitamin C-vit E-min 1 tab PO DAILY 12/01/22 01/30/23 History tablet warfarin 1 mg tablet 1 - 2 mg PO UD 12/01/22 01/30/23 History Patient History Medical History Ambulatory dysfunction Atrial fibrillation Cerebrovascular disease Chronic systolic CHF (congestive heart failure) Compression fracture of L4 lumbar vertebra HX BROKEN BACK Coronary artery disease Diabetes mellitus type 2 with complications Diabetic neuropathy Dyslipidemia Berman catheter in place gets changed monthly Generalized OA Heart failure History of airway aspiration History of colon cancer HX COLON SURGERY History of hepatitis B History of melanoma HX MELANOMA, HX MULTIPLE SKIN CA & REMOVED History of Mohs micrographic surgery for skin cancer History of prostate cancer PROSTATECTOMY Hypertension Lumbar spinal stenosis Pacemaker "DUAL" - PT NOT SURE BRAND, PLACED D/T AFIB - ESTEBAN ZAMORANO PVD (peripheral vascular disease) Renal failure ? stage Surgical History H/O prostatectomy History of anesthesia reaction WITH TESTICULAR SURGERY, [facility] - INCREASED BP & HAD TO STAY OVERNIGHT History of cardiac cath years ago> [facility] - CHECKING FOR BLOCKAGE - NO STENTS History of colonoscopy MULTIPLE History of right hemicolectomy History of testicular surgery History of tonsillectomy and adenoidectomy Family History Mother Coronary heart disease Father Heart disease Social History Smoking Status: Never smoker Second Hand Exposure: No; Do You Dip or Chew Tobacco: No; Tobacco Cessation Education Requested by Patient: No Hx Alcohol Use: No Hx Substance Use: No Preferred Language: Ivorian Communication Ability: Effective Hearing Ability: Hard of Hearing Tmr Teacher Required: No Beliefs That Will Affect Care: None marital status: Single Current Living Situation: Alone Current Living Situation Comment: caregivers come to see him daily current occupational status: retired How many Children do You have: 0 Other Information That Helps Us Care for You: No Feels Safe at Home: Yes Safety Concerns: Feels Safe At This Time Diet: diabetic Diet Comment: Increased protein for healing per chart during the past year weight has: remained stable Assistive Devices: Hospital Bed, Scooter/Electric Scooter, Walker and Wheelchair Physical Exam Skin: Dressings removed from left foot ulceration evaluated there continues to be about a 2-1/2 cm in diameter ulceration present on the plantar aspect of the fifth metatarsal head there is some areas of nonviable necrotic tissue but an area of granular tissue is also present from about the 1:00 to 3 o'clock position there is no undermining no purulent drainage no malodor the surrounding skin has had significant improvement there is no further erythema either ascending or descending from the wound up or down the leg and swelling has significantly improved. Status post vascular intervention. Results & Data Vital Signs (Past 12 Hours) Vital Signs Temp Pulse Pulse Resp BP Pulse Ox O2 Del Method 02/03/23 11:12 36.6 C 59 L 18 146/72 H 100 Room Air 02/03/23 07:52 36.3 C L 59 L 20 130/70 100 Room Air 02/03/23 05:59 60 02/03/23 02:47 36.4 C L 60 20 141/68 H 97 Room Air
[2023-02-03] MEDS ORDERED: HEPARIN SODIUM/DEXTROSE 25,000 UNITS/500 ML BAG IV SCH (12:15)
--- NOTE | 2023-02-03 12:40 | Infectious Disease Progress Nt ---
Date of Service February 03, 2023 Telehealth Information Non-billable ID F/U Note Note is written after chart review and discuss w/ Dr. Johnson. Assessment & Plan (1) Osteomyelitis of foot, acute: Plan: L foot superficial wound cx: Enterococcus (S to ampicillin) Assessment: Diabetic L foot infection w/ OM of 5th MT Hx of DM2 w/ neuropathy, R 2ndtoe amputation, PAD, CAD, PPM in place, CKD III, urinary retention s/p chronic terry (~10 years), and A fib on warfarin Hx of allergy to sulfa, nitro Recommendations: - Stop vancomycin iv and zosyn iv - Start ampicillin iv 2 gm iv q6 hours given CrCl 30-49 - I strongly recommend deep wound culture and/or bone biopst for bacterial cultures if there is no plan for debridement or bone resection given patient age and anticipated wound healing issue (per podiatyr?). I am not sure if we can rely on the superficial wound culture but it seems reasonable to de-escalate to ampicillin at this time as the patient is clinically stable. - I am not against providing a long-term abx therapy, 4-6 weeks, for the OM but I have to emaphasize the fact that treatment failure rate is relatively high for this kind of infection despite long-term abx therapy without surgical debridement/bone resection. I am afraid that the patient will be dealing w/ the same condition sometime after completion of the long-term abx therapy. Considering that, it is worth it to provide such a long-term abx therapy w/o surgical intervention? - ID will continue to follow Case discussed w/ Dr. Johnson (2) Diabetic infection of left foot: Results & Data Vital Signs (Past 12 Hours) Vital Signs Temp Pulse Pulse Resp BP Pulse Ox O2 Del Method 02/03/23 11:12 36.6 C 59 L 18 146/72 H 100 Room Air 02/03/23 07:52 36.3 C L 59 L 20 130/70 100 Room Air 02/03/23 05:59 60 02/03/23 02:47 36.4 C L 60 20 141/68 H 97 Room Air
--- NOTE | 2023-02-03 14:17 | Pharmacy Report ---
Pharmacy Glycemic Short Note 2 - Date of Service February 03, 2023 - Glycemic Short BSG Results (Last 24 hours): 02/02/23 02/02/23 02/03/23 16:58 20:22 05:52 Glucose 120 H POC Glucose 106 H 133 H 02/03/23 02/03/23 07:40 11:50 Glucose POC Glucose 119 H 133 H OUTPATIENT ANTIDIABETIC REGIMEN: * Lantus 16 units SQ qAM * A1c = 6.6% ASSESSMENT: 02/03: * Sujit received 7 units of insulin yesterday of which 5 were basal. He had a procedure yesterday and was NPO leading to the decreased insulin need. * Fasting BSG this AM within goal range continue current basal regimen * BSGs well controlled, no changes to Novolog at this time * He continues on clindamycin, daptomycin and Zosyn 01/31: * Sujit is a 87 yo T2DM admitted for non healing diabetic foot ulcer. * Patient was initially made NPO pending vascular consult eval. He was previously scheduled for revascularization of nonhealing left fifth metatarsal on 02/03/23. Lantus dosed reduced on admission for NPO status and suspected decreased need while also receiving bolus insulin. Diet resumed today at lunchtime. * During April 2022 admission, patient required Lantus 6 units BID + Novolog CF/CR 20/02 . PLAN FOR INPATIENT GLYCEMIC CONTROL: * Basal insulin * Lantus 5 units SQ qAM * Bolus insulin * NovoLog per scale ACHS or Q6hrs while NPO * Goal Range: Low 110 mg/dL - High 140 mg/dL * Correction Factor: 30 mg/dL/unit * Nutritional / Prandial insulin per carb ratio of 1 unit per 10 grams CHO consumed
[2023-02-03] MEDS: ENOXAPARIN 100 MG/1ML SYR SQ SCH ×2 (14:40→23:30)
[2023-02-03] MEDS: WARFARIN SOD 3 MG TAB PO SCH (16:19)
--- NOTE | 2023-02-03 16:34 | Vascular Medicine ProgressNote ---
Date of Service February 03, 2023 Assessment & Plan (1) PAD (peripheral artery disease): Plan: Post stenting of LT popliteal artery occlusion and angioplasty of [employer] 2. Diabetic foot/pressure ulcerations involving toes bilaterally and LT 5th metatarsal head 3. Nonischemic cardiomyopathy, last EF 45% 4. Peripheral neuropathy 5. Coronary artery diseasemedically managed PDA disease 6. AV block post pacemaker 7. Persistent atrial fibrillation on anticoagulation 8. Bilateral left greater than right lower extremity edemasuspected lymphedema on left post trauma 9. 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 ALISSA Stable post endovascular intervention yesterday. Has palpable left DP pulse today on exam. No apparent access site complications. Continue clopidogrel for 1 month Resume Coumadin when able from a podiatry surgical standpoint Continue to hold furosemide Repeat noninvasive vascular testing as an outpatient in 1 to 2 weeks. Admission and Anticipated Discharge Date Admission Date: January 30, 2023 Subjective Feeling well. Denies significant pain at left foot or right groin access site. Telemetry reviewedpaced rhythm, no events Review of Systems Review of Systems: All systems reviewed & are unremarkable except as noted in HPI & below Physical Exam Physical Exam: General: Comfortable, no acute distress Eyes: Sclerae anicteric Lungs: Clear to auscultation bilaterally, no rhonchi or wheezes Cardiac: Irregular irregular, no murmurs Abdomen: Soft, nontender Neuro: Nonfocal Psych: Alert orient x3, normal affect and mood Extremities/Vascular: -- 2+ radial bilaterally -- Right BALLET DANCER 2+ pulse, no surrounding ecchymosis or hematoma --LT foot dressed. Right foot dressed 1+ to mid lorenzo left lower extremity edema, Palpable left PT pulse Results & Data Vital Signs (Past 12 Hours) Vital Signs Temp Pulse Pulse Resp BP Pulse Ox O2 Del Method 02/03/23 15:27 97.7 F 60 19 122/80 100 Room Air 02/03/23 11:12 97.9 F 59 L 18 146/72 H 100 Room Air 02/03/23 07:52 97.3 F L 59 L 20 130/70 100 Room Air 02/03/23 05:59 60 PG Care Time/CCT Total # of Minutes Spent Total Time Spent with Patient: Total time spent is greater than 50% in coordination of care (as documented) at patient's floor/unit and/or counseling patient: Coding Level of Care Code 86108 SUB INP/OBS CARE MIN Diagnoses PAD (peripheral artery disease) I73.9
--- NOTE | 2023-02-03 19:38 | Hospitalist Progress Note ---
Date of Service February 03, 2023 Assessment & Plan (1) Diabetic infection of left foot: (2) Chronic systolic heart failure: (3) CKD (chronic kidney disease), stage III: (4) Pacemaker: (5) Diabetes mellitus type 2 with complications: (6) Coronary artery disease: (7) Atrial fibrillation: Plan Mr. Thayer is an 87 year old male that presents to the ED today per recommendations by wound clinic for evaluation of his non healing foot wound. He was seen in the setting of persistent non healing diabetic ulcers of the 5th metatarsal showing signs of tissue loss and tunneling. He has a history of PAD, CAD, atrial fibrillation on warfarin, diabetes with neuropathy and history of foot wounds. He completed a course of doxycycline 2 weeks ago; now seeing purulent drainage and has concerns of deeper infection with tunneling at this point. Patient denies fever or chills. Patient complains continues to have positive sensation in the foot. Patient has been evaluated by Pineda Ulrich and vascular surgery for possible stenting for revascularization of his nonhealing l eft fifth metatarsal. Per review of outpatient notes his risk of limb loss is high without revascularization. This procedure was scheduled for 02/03/2023. Per review of Dr. Ulrihc' note; risk of limb loss is high without attempted revascularization. Leukocytosis 13.42, lactic acid 1.3, CRP 2.90, procalcitonin negative. 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 - Surface wound culture from admission showing Enterococcus pansensitive -Patient has been on empiric Dapto and Zosyn. Seen by ID who recommended IV ampicillin 2 g every 6 hours for now and strongly recommended for bone biopsy. Discussed with podiatry who plans for bone biopsy on Monday at bedside. Peripheral arterial occlusive disease-status post angioplasty and stenting of left lower extremity by Dr. Ulrich yesterday. -Recommendations noted-continue Plavix for 1 month and follow-up with vascular surgery in 2 weeks -Okay to resume anticoagulation as no plans for surgery per podiatry Paroxysmal atrial fibrillation on Coumadin-status post vitamin K for vascular procedure. INR 1.2. Starting Coumadin today along with therapeutic Lovenox bridging. Continue telemetry. -Home dose of Coumadin is 1 mg MWF and 2 mg rest of the week. Will start on Coumadin 3 mg daily for now starting today, check INR daily for adjustment. -Pacemaker in place. -Continue Amio, metoprolol Chronic CHF: Last ECHO 02/11: LV function mildly reduced. LV wall thickness concentric. EF 45%. Grade I DDx. Lasix on hold, volume status stable. Will resume as indicated ALISSA on CKD III: Chronic Berman Monitor renal function Avoid nephrotoxic agents as able Cr 1.4 today DM II with peripheral neuropathy: HbA1C: 6.6 Continue Gabapentin Continue insulin per protocol Monitor BGs DVT Px: Lovenox, Coumadin Dispo: Pending bone biopsy on Monday for final antibiotic determination. I spoke with ID, vascular surgery and podiatry along with RN. Total of 60 min spent in patient care. Admission and Anticipated Discharge Date Admission Date: January 30, 2023 Subjective Patient was seen and examined at bedside in presence of podiatry. States he had intermittent nerve pain with spasms yesterday but much better today. No fever, chills, chest pain or shortness of breath no nausea or vomiting. Review of Systems Review of Systems: All systems reviewed & are unremarkable except as noted in Subjective Physical Exam Physical Exam: General: Lying comfortably in bed, not in distress, on room air HEENT: EOMI, KASANDRA, MMM Chest: Clear breath sounds bilaterally, no wheezes or crackles CVS: Regular, normal heart sounds, no murmur Abdomen: Soft, non tender, not distended, normal bowel sounds Neuro: Awake, alert, oriented, conversing well, non focal Extremities: Dressings on bilateral foot. Left foot ulcer noted-no active purulence. Results & Data Results & Data Vital Signs (Past 12 Hours) Vital Signs Temp Pulse Pulse Resp BP Pulse Ox O2 Del Method 02/03/23 19:03 36.6 C 73 16 153/82 H 98 Room Air 02/03/23 14:03 60 02/03/23 15:27 36.5 C 60 19 122/80 100 Room Air 02/03/23 11:12 36.6 C 59 L 18 146/72 H 100 Room Air 02/03/23 07:52 36.3 C L 59 L 20 130/70 100 Room Air (6) Coronary artery disease Coronary Disease-Associated Artery/Lesion type: campo artery [place] vs. transplanted heart: campo heart Associated angina: without angina Qualified Code(s): I25.10 - Atherosclerotic heart disease of campo coronary artery without angina pectoris (7) Atrial fibrillation Atrial fibrillation type: unspecified Qualified Code(s): I48.91 - Unspecified atrial fibrillation
[2023-02-03] MEDS: AMPICILLIN 2,000 MG in 0.9 % SODIUM CHLORIDE 100 ML IV SCH (20:38)
[2023-02-03] MEDS: LORazepam 0.5 MG TAB PO PRN (20:38)
[2023-02-03] MEDS: AMIODARONE 200 MG TAB PO SCH (20:39)
[2023-02-03] MEDS: MIRTAZAPINE TAB 15 MG TAB PO SCH (20:39)
[2023-02-03] MEDS: ZOLPIDEM TARTRATE 5 MG TAB PO PRN (23:29)
[2023-02-04] MEDS: CLINDAMYCIN/D5W 300 MG/50 ML BAG IV SCH ×3 (02:37→18:12)
[2023-02-04] MEDS: AMPICILLIN 2,000 MG in 0.9 % SODIUM CHLORIDE 100 ML IV SCH ×4 (03:05→20:25)
[2023-02-04 06:40] LABS: Hematocrit (blood only) 43.7 % (42.0-52.0); Hemoglobin 14.7 g/dl (14.0-18.0); Mean Corpuscular Hemoglobin 30.5 pg (25.0-34.0); Mean Corpuscular Hgb Conc 33.6 g/dL (32.0-36.0); Mean Corpuscular Volume 90.7 fL (80.0-100.0); Mean Platelet Volume 9.3 fL (9.4-12.4); Platelet Count 222 K/uL (130-400); RDW Coefficient of Variation 15.1 % (11.5-14.5); Red Blood Count 4.82 M/uL (4.70-6.10); White Blood Count 10.73 K/ul (4.8-10.8)
[2023-02-04 06:50] LABS: BUN Creatinine Ratio 13.8 (10-20); Creatinine Clr Calc Pharmacy 45.6 ml/min; Est GFR (African American) 52.9 ml/min; Est GFR (Non-African American) 45.6 ml/min
[2023-02-04 08:07] LABS: INR 1.2 (0.9-1.1); Prothrombin Time 13.2 Seconds (9.0-12.0)
[2023-02-04] MEDS: GABAPENTIN 300 MG CAP PO SCH ×3 (08:57→20:29)
[2023-02-04] MEDS: METOPROLOL SUCC 25MG EXT REL TAB PO SCH (08:57)
[2023-02-04] MEDS: LORATADINE 10 MG TAB PO SCH (08:57)
[2023-02-04] MEDS: CLOPIDOGREL BISULFATE 75 MG TAB PO SCH (08:57)
[2023-02-04] MEDS: CALCIUM 600MG + VIT D 400 IU TAB PO SCH (08:57)
[2023-02-04] MEDS: MAGNESIUM OXIDE 400 MG TAB PO SCH (08:57)
[2023-02-04] MEDS: MULTIVITAMIN TAB PO SCH (08:57)
[2023-02-04] MEDS: DOCUSATE SODIUM 100 MG CAP PO SCH ×2 (09:06→20:44)
[2023-02-04] MEDS: LANTUS PER UNIT CHARGE SC SCH (09:08)
[2023-02-04] MEDS: INSULIN ASPART PER UNIT CHARGE SC SCH ×4 (09:08→20:33)
[2023-02-04] MEDS: ENOXAPARIN 100 MG/1ML SYR SQ SCH ×2 (12:37→23:34)
--- NOTE | 2023-02-04 14:30 | Hospitalist Progress Note ---
Date of Service February 04, 2023 Assessment & Plan (1) Diabetic infection of left foot: (2) Chronic systolic heart failure: (3) CKD (chronic kidney disease), stage III: (4) Pacemaker: (5) Diabetes mellitus type 2 with complications: (6) Coronary artery disease: (7) Atrial fibrillation: Plan Mr. Thayer is an 87 year old male that presents to the ED today per recommendations by wound clinic for evaluation of his non healing foot wound. He was seen in the setting of persistent non healing diabetic ulcers of the 5th metatarsal showing signs of tissue loss and tunneling. He has a history of PAD, CAD, atrial fibrillation on warfarin, diabetes with neuropathy and history of foot wounds. He completed a course of doxycycline 2 weeks ago; now seeing purulent drainage and has concerns of deeper infection with tunneling at this point. Patient denies fever or chills. Patient complains continues to have positive sensation in the foot. Patient has been evaluated by Pineda Ulrich and vascular surgery for possible stenting for revascularization of his nonhealing l eft fifth metatarsal. Per review of outpatient notes his risk of limb loss is high without revascularization. This procedure was scheduled for 02/03/2023. Per review of Dr. Ulrich' note; risk of limb loss is high without attempted revascularization. Leukocytosis 13.42, lactic acid 1.3, CRP 2.90, procalcitonin negative. 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 - Surface wound culture from admission showing Enterococcus pansensitive -Patient has been on empiric Dapto and Zosyn. Seen by ID who recommended IV ampicillin 2 g every 6 hours for now (started on 02/03/2023) and strongly recommended for bone biopsy. Discussed with podiatry who plans for bone biopsy on Monday at bedside. Peripheral arterial occlusive disease-status post angioplasty and stenting of left lower extremity by Dr. Ulrich yesterday. -Recommendations noted-continue Plavix for 1 month and follow-up with vascular surgery in 2 weeks -Okay to resume anticoagulation as no plans for surgery per podiatry -Anticoagulation as below Paroxysmal atrial fibrillation on Coumadin-status post vitamin K for vascular procedure. INR 1.2. Starting Coumadin today along with therapeutic Lovenox bridging. Continue telemetry. -Home dose of Coumadin is 1 mg MWF and 2 mg rest of the week. -Start on Coumadin 3 mg daily 02/03/2023-INR 1.2 today. Continue 3 mg of Coumadin, check INR in morning for further adjustment -Pacemaker in place. -Continue Amio, metoprolol Chronic CHF: Last ECHO 02/11: LV function mildly reduced. LV wall thickness concentric. EF 45%. Grade I DDx. Lasix on hold, volume status stable. Will resume as indicated ALISSA on CKD III: Chronic [place] Monitor renal function Avoid nephrotoxic agents as able Cr 1.4 today DM II with peripheral neuropathy: HbA1C: 6.6 Continue Gabapentin Continue insulin per protocol Monitor BGs DVT Px: Lovenox, Coumadin Dispo: Pending bone biopsy on Monday for final antibiotic determination. Admission and Anticipated Discharge Date Admission Date: January 30, 2023 Subjective Patient was seen and examined at bedside. He feels ok. No new issues. His leg pain is resolved. He had bowel upset overnight which is better today. No fever, chills, chest pain or shortness of breath. Review of Systems Review of Systems: All systems reviewed & are unremarkable except as noted in Subjective Physical Exam Physical Exam: General: Lying comfortably in bed, not in distress, on room air HEENT: EOMI, KASANDRA, MMM Chest: Clear breath sounds bilaterally, no wheezes or crackles CVS: Regular, normal heart sounds, no murmur Abdomen: Soft, non tender, not distended, normal bowel sounds Neuro: Awake, alert, oriented, conversing well, non focal Extremities: Dressings on bilateral foot. Results & Data Results & Data Vital Signs (Past 12 Hours) Vital Signs Temp Pulse Pulse Resp BP Pulse Ox O2 Del Method 02/04/23 12:18 37.1 C 71 18 133/77 97 Room Air 02/04/23 08:12 37.1 C 83 19 152/84 H 98 Room Air 02/04/23 06:01 87 02/04/23 03:16 36.6 C 99 H 22 150/84 H 96 Room Air Laboratory Results Short CBC 02/04/23 Range/Units 05:48 WBC 10.73 (4.8-10.8) K/ul Hgb 14.7 (14.0-18.0) g/dl Hct 43.7 (42.0-52.0) % Plt Count 222 (130-400) K/uL BMP 02/04/23 05:48 Sodium 137 Potassium 4.0 Chloride 99 Carbon Dioxide 28 BUN 19 Creatinine 1.38 Glucose 162 H Calcium 9.0 Medications Administered Current Inpatient Medications Acetaminophen (Acetaminophen 325 Mg Tab) 650 mg PO Q4H PRN PRN Reason: Pain or Fever Stop: 03/01/23 18:56 Hydrocodone Bitart/Acetaminophen (Hydrocodone/Acetamophen 5/325mg Tab) 0.5 tab PO Q12H PRN PRN Reason: pain,severe Stop: 02/13/23 19:51 Last Admin: 02/01/23 04:23 Dose: 0.5 tab Al Hydrox/Mg Hydrox/Simethicone (Aluminum/Magnesium Susp 30 Ml Udc) 15 ml PO Q4H PRN PRN Reason: Dyspepsia Stop: 03/01/23 18:56 Amiodarone HCl (Amiodarone 200 Mg Tab) 200 mg PO QPM [facility] Stop: 03/02/23 20:59 Last Admin: 02/03/23 20:39 Dose: 200 mg Bisacodyl (Bisacodyl 10 Mg Supp) 10 mg MO DAILY PRN PRN Reason: Constipation Stop: 03/02/23 16:27 Calcium/Vitamin D (Calcium 600mg + Vit D 400 Iu Tab) 1 tab PO DAILY [facility] Stop: 03/02/23 16:29 Last Admin: 02/04/23 08:57 Dose: 1 tab Clopidogrel Bisulfate (Clopidogrel Bisulfate 75 Mg Tab) 75 mg PO QAM [facility] Stop: 03/05/23 08:59 Last Admin: 02/04/23 08:57 Dose: 75 mg Dextrose (Dextrose 50% 50 Ml Syringe) 25 - 50 ml IV UD PRN; Protocol PRN Reason: Hypoglycemia Protocol Stop: 03/01/23 19:49 Docusate Sodium (Docusate Sodium 100 Mg Cap) 100 mg PO BID [facility] Stop: 03/02/23 16:29 Last Admin: 02/04/23 09:06 Dose: 100 mg Enoxaparin Sodium (Enoxaparin 100 Mg/1ml Syr) 100 mg SQ Q12H [facility] Stop: 03/05/23 12:29 Last Admin: 02/04/23 12:37 Dose: 100 mg Furosemide (Furosemide 40 Mg Tab) 40 mg PO QAM [facility] Stop: 03/02/23 08:59 Last Admin: 02/01/23 09:02 Dose: 40 mg Gabapentin (Gabapentin 300 Mg Cap) 300 mg PO TID [facility] Stop: 03/01/23 20:59 Last Admin: 02/04/23 08:57 Dose: 300 mg Glucagon (Glucagon For Inj 1 Mg Vial) 1 mg SQ UD PRN; Protocol PRN Reason: Hypoglycemia Protocol Stop: 03/01/23 19:49 Glucose (Glucose 10 Tab/Tube) 4 - 8 tab PO UD PRN; Protocol PRN Reason: Hypoglycemia Treatment Stop: 03/01/23 19:49 Glucose (Glucose 40% Gel 15 Gm Tube) 15 - 30 gm PO UD PRN; Protocol PRN Reason: Hypoglycemia Protocol Stop: 03/01/23 19:49 Clindamycin Phosphate (Cleocin/D5w) 300 mg in 50 mls @ 100 mls/hr IV Q8H [facility] Stop: 03/14/23 10:59 Last Admin: 02/04/23 12:38 Dose: 100 mls/hr Ampicillin Sodium 2,000 mg/ (Sodium Chloride) 108 mls @ 216 mls/hr IV Q6H [facility] Stop: 03/17/23 19:59 Last Infusion: 02/04/23 10:07 Dose: Infused Insulin Aspart (Insulin Aspart Per Unit Charge) 0 units SC ACHS [facility] Stop: 03/01/23 20:59 Last Admin: 02/04/23 12:39 Dose: 1 units Insulin Glargine (Lantus Per Unit Charge) 5 units SC QAM [facility] Stop: 03/03/23 08:59 Last Admin: 02/04/23 09:08 Dose: 5 units Loratadine (Loratadine 10 Mg Tab) 10 mg PO QAM [facility] Stop: 03/02/23 08:59 Last Admin: 02/04/23 08:57 Dose: 10 mg Lorazepam (Lorazepam 0.5 Mg Tab) 0.5 mg PO DAILY PRN PRN Reason: anxiety/sleep Stop: 03/01/23 19:51 Last Admin: 02/03/23 20:38 Dose: 0.5 mg Magnesium Hydroxide (Magnesium Hydroxide Susp 30 Ml Udc) 30 ml PO Q12H PRN PRN Reason: Constipation Stop: 03/01/23 18:56 Magnesium Oxide (Magnesium Oxide 400 Mg Tab) 400 mg PO QAM [facility] Stop: 03/02/23 08:59 Last Admin: 02/04/23 08:57 Dose: 400 mg Metoprolol Succinate (Metoprolol Succ 25mg Ext Rel Tab) 25 mg PO QAM [facility] Stop: 03/02/23 08:59 Last Admin: 02/04/23 08:57 Dose: 25 mg Mirtazapine (Mirtazapine Tab 15 Mg Tab) 30 mg PO HS [facility] Stop: 03/01/23 20:59 Last Admin: 02/03/23 20:39 Dose: 30 mg Miscellaneous (Carbohydrates For Hypoglycemia ) 15 - 30 gm PO UD PRN PRN Reason: Hypoglycemia Protocol Stop: 03/01/23 19:49 Miscellaneous Information (Pharmacy Glycemic Mgmt Consult) 1 each N/A UD PRN PRN Reason: Consult Stop: 03/01/23 19:49 Multivitamins (Multivitamin Tab) [facility] [place] 03/02/23 16:29 Last Admin: 02/04/23 08:57 Dose: 1 tab Ondansetron HCl (Ondansetron Inj 2 Mg/Ml 2 Ml Vial) 4 mg IV Q6H PRN PRN Reason: Nausea Stop: 03/01/23 18:56 Polyethylene Glycol (Polyethylene (Miralax) 17 Gm Pack) 17 gm PO DAILY PRN PRN Reason: Constipation Stop: 03/01/23 18:56 Last Admin: 02/04/23 09:06 Dose: 17 gm Warfarin Sodium (Warfarin Sod 3 Mg Tab) 3 mg PO DAILY@1600 [facility] Stop: 03/05/23 15:59 Last Admin: 02/03/23 16:19 Dose: 3 mg Zolpidem Tartrate (Zolpidem Tartrate 5 Mg Tab) 5 mg PO HS PRN PRN Reason: Insomnia Stop: 03/01/23 20:59 Last Admin: 02/03/23 23:29 Dose: 5 mg (6) Coronary artery disease Coronary Disease-Associated Artery/Lesion type: [place] artery [place] vs. transplanted heart: [place] heart Associated angina: without angina Qualified Code(s): I25.10 - Atherosclerotic heart disease of [place] coronary artery without angina pectoris (7) Atrial fibrillation Atrial fibrillation type: unspecified Qualified Code(s): I48.91 - Unspecified atrial fibrillation
[2023-02-04] MEDS: WARFARIN SOD 3 MG TAB PO SCH (17:16)
[2023-02-04] MEDS: AMIODARONE 200 MG TAB PO SCH (20:29)
[2023-02-04] MEDS: LORazepam 0.5 MG TAB PO PRN (20:33)
[2023-02-04] MEDS: MIRTAZAPINE TAB 15 MG TAB PO SCH (20:59)
[2023-02-04] MEDS: ZOLPIDEM TARTRATE 5 MG TAB PO PRN (23:34)
[2023-02-05] MEDS: AMPICILLIN 2,000 MG in 0.9 % SODIUM CHLORIDE 100 ML IV SCH ×4 (02:26→21:34)
[2023-02-05] MEDS: CLINDAMYCIN/D5W 300 MG/50 ML BAG IV SCH ×3 (02:58→18:02)
[2023-02-05 06:42] LABS: Hematocrit (blood only) 38.8 % (42.0-52.0); Hemoglobin 13.5 g/dl (14.0-18.0); Mean Corpuscular Hemoglobin 31.3 pg (25.0-34.0); Mean Corpuscular Hgb Conc 34.8 g/dL (32.0-36.0); Mean Platelet Volume 9.3 fL (9.4-12.4); Platelet Count 203 K/uL (130-400); RDW Coefficient of Variation 15.2 % (11.5-14.5); RDW Standard Deviation 50.4 fL (36.4-46.3); Red Blood Count 4.31 M/uL (4.70-6.10); White Blood Count 8.68 K/ul (4.8-10.8)
[2023-02-05 07:24] LABS: INR 1.4 (0.9-1.1); Prothrombin Time 15.2 Seconds (9.0-12.0)
[2023-02-05] MEDS: MAGNESIUM OXIDE 400 MG TAB PO SCH (08:27)
[2023-02-05] MEDS: METOPROLOL SUCC 25MG EXT REL TAB PO SCH (08:27)
[2023-02-05] MEDS: MULTIVITAMIN TAB PO SCH (08:27)
[2023-02-05] MEDS: LORATADINE 10 MG TAB PO SCH (08:27)
[2023-02-05] MEDS: GABAPENTIN 300 MG CAP PO SCH ×3 (08:27→21:36)
[2023-02-05] MEDS: CLOPIDOGREL BISULFATE 75 MG TAB PO SCH (08:27)
[2023-02-05] MEDS: CALCIUM 600MG + VIT D 400 IU TAB PO SCH (08:27)
[2023-02-05] MEDS: DOCUSATE SODIUM 100 MG CAP PO SCH ×2 (08:28→21:38)
[2023-02-05] MEDS: LANTUS PER UNIT CHARGE SC SCH (09:30)
[2023-02-05] MEDS: INSULIN ASPART PER UNIT CHARGE SC SCH ×4 (09:31→21:23)
--- NOTE | 2023-02-05 11:10 | Hospitalist Progress Note ---
Date of Service February 05, 2023 Assessment & Plan (1) Diabetic infection of left foot: (2) Chronic systolic heart failure: (3) CKD (chronic kidney disease), stage III: (4) Pacemaker: (5) Diabetes mellitus type 2 with complications: (6) Coronary artery disease: (7) Atrial fibrillation: Plan Mr. Thayer is an 87 year old male that presents to the ED per recommendations by wound clinic for evaluation of his non healing foot wound. He was seen in the setting of persistent non healing diabetic ulcers of the 5th metatarsal showing signs of tissue loss and tunneling. He has a history of PAD, CAD, atrial fibrillation on warfarin, diabetes with neuropathy and history of foot wounds. He completed a course of doxycycline 2 weeks ago; now seeing purulent drainage and has concerns of deeper infection with tunneling at this point. 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 - Surface wound culture from admission showing Enterococcus pansensitive -Patient has been on empiric Dapto and Zosyn. Seen by ID who recommended IV ampicillin 2 g every 6 hours for now (started on 02/03/2023) and strongly recomm ended for bone biopsy. Discussed with podiatry who plans for bone biopsy on Monday at bedside. Peripheral arterial occlusive disease-status post angioplasty and stenting of left lower extremity by Dr. Ulrich yesterday. -Recommendations noted-continue Plavix for 1 month and follow-up with vascular surgery in 2 weeks -Okay to resume anticoagulation as no plans for surgery per podiatry -Anticoagulation as below Paroxysmal atrial fibrillation on Coumadin-status post vitamin K for vascular procedure. INR 1.2. Starting Coumadin today along with therapeutic Lovenox bridging. Continue telemetry. -Home dose of Coumadin is 1 mg MWF and 2 mg rest of the week. -Start on Coumadin 3 mg daily 02/03/2023-INR 1.4 today. Continue 3 mg of Coumadin, check INR in morning for further adjustment -Pacemaker in place. -Continue Amio, metoprolol Chronic CHF: Last ECHO 02/11: LV function mildly reduced. LV wall thickness concentric. EF 45%. Grade I DDx. Lasix on hold, volume status stable. Will resume as indicated ALISSA on CKD III: Chronic [place] Monitor renal function Avoid nephrotoxic agents as able Cr 1.4 today DM II with peripheral neuropathy: HbA1C: 6.6 Continue Gabapentin Continue insulin per protocol Monitor BGs DVT Px: Lovenox, Coumadin Dispo: Pending bone biopsy on Monday for final antibiotic determination. Admission and Anticipated Discharge Date Admission Date: January 30, 2023 Subjective Patient was seen and examined at bedside. Denies new issues. Denies any pain. No fever, chills, chest pain or shortness of breath. No nausea or vomiting. Review of Systems Review of Systems: All systems reviewed & are unremarkable except as noted in Subjective Physical Exam Physical Exam: General: Lying comfortably in bed, not in distress, on room air HEENT: EOMI, KASANDRA, MMM Chest: Clear breath sounds bilaterally, no wheezes or crackles CVS: Regular, normal heart sounds, no murmur Abdomen: Soft, non tender, not distended, normal bowel sounds Neuro: Awake, alert, oriented, conversing well, non focal Extremities: Dressings on bilateral foot. Results & Data Results & Data Vital Signs (Past 12 Hours) Vital Signs Temp Pulse Pulse Resp BP Pulse Ox O2 Del Method 02/05/23 07:27 36.4 C L 67 18 151/75 H 95 Room Air 02/05/23 05:50 63 02/05/23 02:40 36.5 C 71 18 129/75 99 Room Air Laboratory Results Short CBC 02/05/23 Range/Units 05:29 WBC 8.68 (4.8-10.8) K/ul Hgb 13.5 L (14.0-18.0) g/dl Hct 38.8 L (42.0-52.0) % Plt Count 203 (130-400) K/uL Medications Administered Current Inpatient Medications Acetaminophen (Acetaminophen 325 Mg Tab) 650 mg PO Q4H PRN PRN Reason: Pain or Fever Stop: 03/01/23 18:56 Hydrocodone Bitart/Acetaminophen (Hydrocodone/Acetamophen 5/325mg Tab) 0.5 tab PO Q12H PRN PRN Reason: pain,severe Stop: 02/13/23 19:51 Last Admin: 02/01/23 04:23 Dose: 0.5 tab Al Hydrox/Mg Hydrox/Simethicone (Aluminum/Magnesium Susp 30 Ml Udc) 15 ml PO Q4H PRN PRN Reason: Dyspepsia Stop: 03/01/23 18:56 Amiodarone HCl (Amiodarone 200 Mg Tab) 200 mg PO QPM [facility] Stop: 03/02/23 20:59 Last Admin: 02/04/23 20:29 Dose: 200 mg Bisacodyl (Bisacodyl 10 Mg Supp) 10 mg SC DAILY PRN PRN Reason: Constipation Stop: 03/02/23 16:27 Calcium/Vitamin D (Calcium 600mg + Vit D 400 Iu Tab) 1 tab PO DAILY [facility] Stop: 03/02/23 16:29 Last Admin: 02/05/23 08:27 Dose: 1 tab Clopidogrel Bisulfate (Clopidogrel Bisulfate 75 Mg Tab) 75 mg PO QAM [facility] Stop: 03/05/23 08:59 Last Admin: 02/05/23 08:27 Dose: 75 mg Dextrose (Dextrose 50% 50 Ml Syringe) 25 - 50 ml IV UD PRN; Protocol PRN Reason: Hypoglycemia Protocol Stop: 03/01/23 19:49 Docusate Sodium (Docusate Sodium 100 Mg Cap) 100 mg PO BID [facility] Stop: 03/02/23 16:29 Last Admin: 02/05/23 08:28 Dose: Not Given Enoxaparin Sodium (Enoxaparin 100 Mg/1ml Syr) 100 mg SQ Q12H [facility] Stop: 03/05/23 12:29 Last Admin: 02/04/23 23:34 Dose: 100 mg Furosemide (Furosemide 40 Mg Tab) 40 mg PO QAM [facility] Stop: 03/02/23 08:59 Last Admin: 02/01/23 09:02 Dose: 40 mg Gabapentin (Gabapentin 300 Mg Cap) 300 mg PO TID [facility] Stop: 03/01/23 20:59 Last Admin: 02/05/23 08:27 Dose: 300 mg Glucagon (Glucagon For Inj 1 Mg Vial) 1 mg SQ UD PRN; Protocol PRN Reason: Hypoglycemia Protocol Stop: 03/01/23 19:49 Glucose (Glucose 10 Tab/Tube) 4 - 8 tab PO UD PRN; Protocol PRN Reason: Hypoglycemia Treatment Stop: 03/01/23 19:49 Glucose (Glucose 40% Gel 15 Gm Tube) 15 - 30 gm PO UD PRN; Protocol PRN Reason: Hypoglycemia Protocol Stop: 03/01/23 19:49 Clindamycin Phosphate (Cleocin/D5w) 300 mg in 50 mls @ 100 mls/hr IV Q8H [facility] Stop: 03/14/23 10:59 Last Infusion: 02/05/23 03:30 Dose: Infused Ampicillin Sodium 2,000 mg/ (Sodium Chloride) 108 mls @ 216 mls/hr IV Q6H [facility] Stop: 03/17/23 19:59 Last Infusion: 02/05/23 09:16 Dose: Infused Insulin Aspart (Insulin Aspart Per Unit Charge) 0 units SC ACHS [facility] Stop: 03/01/23 20:59 Last Admin: 02/05/23 09:31 Dose: 2 units Insulin Glargine (Lantus Per Unit Charge) 5 units SC QAM [facility] Stop: 03/03/23 08:59 Last Admin: 02/05/23 09:30 Dose: 5 units Loratadine (Lor[facility]adine 10 Mg Tab) [facility] Stop: 03/02/23 08:59 Last Admin: 02/05/23 08:27 Dose: 10 mg Lorazepam (Lorazepam 0.5 Mg Tab) 0.5 mg PO DAILY PRN PRN Reason: anxiety/sleep Stop: 03/01/23 19:51 Last Admin: 02/04/23 20:33 Dose: 0.5 mg Magnesium Hydroxide (Magnesium Hydroxide Susp 30 Ml Udc) 30 ml PO Q12H PRN PRN Reason: Constipation Stop: 03/01/23 18:56 Magnesium Oxide (Magnesium Oxide 400 Mg Tab) [facility] Stop: 03/02/23 08:59 Last Admin: 02/05/23 08:27 Dose: 400 mg Metoprolol Succinate (Metoprolol Succ 25mg Ext Rel Tab) [facility] [place] Stop: 03/02/23 08:59 Last Admin: 02/05/23 08:27 Dose: 25 mg Mirtazapine (Mirtazapine Tab 15 Mg Tab) 30 mg PO HS [facility] Stop: 03/01/23 20:59 Last Admin: 02/04/23 20:59 Dose: 30 mg Miscellaneous (Carbohydrates For Hypoglycemia ) 15 - 30 gm PO UD PRN PRN Reason: Hypoglycemia Protocol Stop: 03/01/23 19:49 Miscellaneous Information (Pharmacy Glycemic Mgmt Consult) 1 each N/A UD PRN PRN Reason: Consult Stop: 03/01/23 19:49 Multivitamins (Multivitamin Tab) 1 tab PO QAM [facility] Stop: 03/02/23 16:29 Last Admin: 02/05/23 08:27 Dose: 1 tab Ondansetron HCl (Ondansetron Inj 2 Mg/Ml 2 Ml Vial) 4 mg IV Q6H PRN PRN Reason: Nausea Stop: 03/01/23 18:56 Polyethylene Glycol (Polyethylene (Miralax) 17 Gm Pack) 17 gm PO DAILY PRN PRN Reason: Constipation Stop: 03/01/23 18:56 Last Admin: 02/04/23 09:06 Dose: 17 gm Warfarin Sodium (Warfarin Sod 3 Mg Tab) 3 mg PO DAILY@1600 [facility] Stop: 03/05/23 15:59 Last Admin: 02/04/23 17:16 Dose: 3 mg Zolpidem Tartrate (Zolpidem Tartrate 5 Mg Tab) 5 mg PO HS PRN PRN Reason: Insomnia Stop: 03/01/23 20:59 Last Admin: 02/04/23 23:34 Dose: 5 mg (6) Coronary artery disease Coronary Disease-Associated Artery/Lesion type: [place] artery [place] vs. transplanted heart: [place] heart Associated angina: without angina Qualified Code(s): I25.10 - Atherosclerotic heart disease of [place] coronary artery without angina pectoris (7) Atrial fibrillation Atrial fibrillation type: unspecified Qualified Code(s): I48.91 - Unspecified atrial fibrillation
[2023-02-05] MEDS: ENOXAPARIN 100 MG/1ML SYR SQ SCH (13:05)
[2023-02-05] MEDS: WARFARIN SOD 3 MG TAB PO SCH (17:00)
[2023-02-05] MEDS: AMIODARONE 200 MG TAB PO SCH (21:36)
[2023-02-05] MEDS: MIRTAZAPINE TAB 15 MG TAB PO SCH (21:36)
[2023-02-05] MEDS: ZOLPIDEM TARTRATE 5 MG TAB PO PRN (23:28)
[2023-02-06] MEDS: ENOXAPARIN 100 MG/1ML SYR SQ SCH (00:40)
[2023-02-06] MEDS: AMPICILLIN 2,000 MG in 0.9 % SODIUM CHLORIDE 100 ML IV SCH ×4 (02:01→20:24)
[2023-02-06] MEDS: CLINDAMYCIN/D5W 300 MG/50 ML BAG IV SCH ×3 (02:21→18:04)
[2023-02-06 06:22] LABS: Hematocrit (blood only) 33.1 % (42.0-52.0); Hemoglobin 11.1 g/dl (14.0-18.0); Mean Corpuscular Hemoglobin 30.4 pg (25.0-34.0); Mean Corpuscular Hgb Conc 33.5 g/dL (32.0-36.0); Mean Corpuscular Volume 90.7 fL (80.0-100.0); Mean Platelet Volume 9.4 fL (9.4-12.4); Platelet Count 171 K/uL (130-400); RDW Coefficient of Variation 15.1 % (11.5-14.5); Red Blood Count 3.65 M/uL (4.70-6.10); White Blood Count 7.48 K/ul (4.8-10.8)
[2023-02-06 06:35] LABS: BUN Creatinine Ratio 17.8 (10-20); Creatinine Clr Calc Pharmacy 49.1 ml/min; Est GFR (African American) 57.4 ml/min; Est GFR (Non-African American) 49.5 ml/min; Magnesium 1.8 mg/dl (1.7-2.4); Potassium 3.5 mmol/L (3.5-5.1)
[2023-02-06 06:56] LABS: INR 1.6 (0.9-1.1); Prothrombin Time 17.2 Seconds (9.0-12.0)
[2023-02-06] MEDS: MAGNESIUM OXIDE 400 MG TAB PO SCH (08:19)
[2023-02-06] MEDS: LORATADINE 10 MG TAB PO SCH (08:19)
[2023-02-06] MEDS: METOPROLOL SUCC 25MG EXT REL TAB PO SCH (08:19)
[2023-02-06] MEDS: GABAPENTIN 300 MG CAP PO SCH ×3 (08:19→20:23)
[2023-02-06] MEDS: MULTIVITAMIN TAB PO SCH (08:20)
[2023-02-06] MEDS: CALCIUM 600MG + VIT D 400 IU TAB PO SCH (08:20)
[2023-02-06] MEDS: DOCUSATE SODIUM 100 MG CAP PO SCH ×2 (08:22→20:23)
[2023-02-06] MEDS: INSULIN ASPART PER UNIT CHARGE SC SCH ×4 (08:30→20:20)
[2023-02-06] MEDS: LANTUS PER UNIT CHARGE SC SCH (08:31)
--- NOTE | 2023-02-06 09:47 | Hospitalist Progress Note ---
Date of Service February 06, 2023 Assessment & Plan (1) Diabetic infection of left foot: (2) Chronic systolic heart failure: (3) CKD (chronic kidney disease), stage III: (4) Pacemaker: (5) Diabetes mellitus type 2 with complications: (6) Coronary artery disease: (7) Atrial fibrillation: Plan Mr. Thayer is an 87 year old male that presented to the ED per recommendations by wound clinic for evaluation of his non healing foot wound. He was seen in the setting of persistent non healing diabetic ulcers of the 5th metatarsal showing signs of tissue loss and tunneling. He has a history of PAD, CAD, atrial fibrillation on warfarin, diabetes with neuropathy and history of foot wounds. He completed a course of doxycycline 2 weeks [employer]; now seeing purulent drainage and has concerns of deeper infection with tunneling at this point. 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 - Surface wound culture from admission showing Enterococcus pansensitive -Patient has been on empiric Dapto and Zosyn. Seen by ID who recommended IV ampicillin 2 g every 6 hours for now (started on 02/03/2023) and strongly recommended bone biopsy. Bone biopsy and repeat/deep cultures done on 02/06 by podiatry- appreciate recs for discharge abx by both ID and podiatry Peripheral arterial occlusive disease -status post angioplasty and stenting of left lower extremity by interventional cardiology. -Recommendations noted-continue Plavix for 1 month and follow-up with vascular surgery in 2 weeks -Okay to resume anticoagulation as no plans for surgery per podiatry -Anticoagulation as below Paroxysmal atrial fibrillation on Coumadin-status post vitamin K for vascular procedure. Continue Coumadin along with therapeutic Lovenox bridging until INR therapeutic. Continue telemetry. -Home dose of Coumadin is 1 mg MWF and 2 mg rest of the week. -Start on Coumadin 3 mg daily 02/03/2023. Continue 3 mg of Coumadin until therapeutic, check INR in morning for further adjustment -Pacemaker in place. -Continue Amiodarone, metoprolol Chronic CHF Last ECHO 02/11: LV function mildly reduced. LV wall thickness concentric. EF 45%. Grade I DDx. Lasix on hold, volume status stable. Will resume as indicated ALISSA on CKD III Chronic [place] Monitor renal function Avoid nephrotoxic agents as able Currently wnl DM II with peripheral neuropathy HbA1C: 6.6 Continue Gabapentin Continue insulin per protocol Monitor BGs DVT Px: Lovenox, Coumadin Dispo: has [facility] HH services, will likely need placement if needs extended IV abx. TBD as pt hesitant. Admission and Anticipated Discharge Date Admission Date: January 30, 2023 Subjective Pt stated that he was having abdominal pain. BMs timing uncertain. Denied chest pain, SOB. Faxon like his pain in the feet was improved from the day prior. Review of Systems Review of Systems: All systems reviewed & are unremarkable except as noted in Subjective Physical Exam Physical Exam: General: Alert, oriented. No acute distress Skin: No noted rashes or bruises Psych: Appropriate mood and affect Neuro: No gross deficits but limited exam HEENT: NC/AT Chest: Nontender to palpation. CV: RRR Resp: Breath sounds clear bilaterally, no increased effort of breathing. Abdomen: Soft, nontender Extremities: feet wrapped bilaterally Results & Data Results & Data Vital Signs (Past 12 Hours) Vital Signs Temp Pulse Pulse Resp BP Pulse Ox O2 Del Method 02/06/23 08:41 36.4 C L 68 16 154/67 H 97 Room Air 02/06/23 00:00 60 02/06/23 02:52 36.4 C L 65 16 126/69 99 Room Air 02/05/23 22:36 36.5 C 60 16 121/65 98 Room Air (6) Coronary artery disease Associated angina: without angina Coronary Disease-Associated Artery/Lesion type: [place] artery [place] vs. transplanted heart: [place] heart Qualified Code(s): I25.10 - Atherosclerotic heart disease of [place] coronary artery without angina pectoris (7) Atrial fibrillation Atrial fibrillation type: unspecified Qualified Code(s): I48.91 - Unspecified atrial fibrillation
[2023-02-06] MEDS: CLOPIDOGREL BISULFATE 75 MG TAB PO SCH (09:57)
--- NOTE | 2023-02-06 12:58 | Podiatry Consultation ---
Date of Consultation February 06, 2023 Assessment & Plan (1) Diabetic infection of left foot: We will continue to monitor the progression of the ulceration, cultures obtained for ID for patient to be discharged on antibiotics. (2) PAD (peripheral artery disease): History of Present Illness Reason for Consultation: Left foot fifth metatarsal head ulcer in the setting of peripheral arterial disease Attending Physician: Katerine Foy MD History of Present Illness Patient is a very pleasant 87-year-old male seen at bedside today. All dressings were removed area cleaned with Hibiclens at bedside I was able to obtain a deep culture utilizing a Jamshidi needle of tissue and bone, deep cultures were sent today. Debridement also performed on some of the overlying nonviable tissue there was some bleeding present secondary to patient's Coumadin use and elevated INR although noted to not yet be therapeutic was 1.6. I obtained a new surface culture as well and sent deep tissue to pathology. After samples obtained. Area cleaned with Hibiclens with pressure bleeding was stopped and a dressing applied consisting of Xeroform gauze roll gauze and an Rey bandage applied. We will continue to follow patient, I also asked my colleague from orthopedics to take a look at patient to see if there is any level of amputation that we can provide that would not leave patient with a severe defect and that would provide him with the best chance at healing without recurrence of wound at fifth metatarsal or lateral part of the foot. Currently his white blood cell count is notably diminished from previous blood work I do not appreciate any significant erythema I do appreciate the coloration of the foot is significantly improved secondary to his recent recent vascular procedure. Patient agreeable had no other concerns was resting comfortably in his bed with the foot elevated. We will continue to follow patient. Allergies Allergy/AdvReac Type Severity Reaction Status Date / Time Macrolide Antibiotics Allergy Unknown PER Verified 01/30/23 16:04 MEDICAL RECORD sildenafil Allergy Unknown SWELLING Verified 01/30/23 16:04 OF FACE AND HEAD streptomycin Allergy Unknown N/V Verified 01/30/23 16:04 sulfite Allergy Unknown THROAT Verified 01/30/23 16:04 SWELLING nitrofurantoin AdvReac Diarrhea Verified 01/30/23 16:04 Sulfites Allergy Unknown throat Uncoded 01/30/23 16:04 swelling VASODILATORS Allergy Unknown "PERIPHERAL Uncoded 01/30/23 16:04 DILATOR" swelling of face and head Streptomycin Sulfate POWD AdvReac Unknown N/V Uncoded 01/30/23 16:04 Home Medications Medication Instructions Recorded Confirmed Type amiodarone 200 mg tablet 200 mg PO QAM 01/02/18 01/30/23 History insulin glargine 100 unit/mL 8 units subcut BID 01/02/18 01/30/23 History subcutaneous solution loratadine 10 mg tablet 10 mg PO QAM 01/02/18 01/30/23 History magnesium oxide 400 mg (241.3 mg 400 mg PO QAM 01/02/18 01/30/23 History magnesium) tablet metoprolol succinate 25 mg 25 mg PO QAM 01/02/18 01/30/23 History tablet,extended release 24 hr zolpidem 5 mg tablet (Ambien) 5 mg PO HS 01/02/18 01/30/23 History gabapentin 300 mg capsule 300 mg PO TID 03/10/18 01/30/23 History docusate sodium 100 mg capsule 100 mg PO BID 04/27/22 01/30/23 History (Colace) hydrocodone 5 mg-acetaminophen 325 0.5 tab PO Q12H PRN pain,severe 04/27/22 01/30/23 History mg tablet mometasone 0.1 % topical solution 1 applic topical DAILY PRN Itching 04/27/22 01/30/23 History acetaminophen 325 mg capsule 650 mg PO QID PRN PAIN/FEVER 05/10/22 01/30/23 History furosemide 20 mg tablet 40 mg PO QAM 06/28/22 01/30/23 History bisacodyl 10 mg rectal suppository 10 mg ME DAILY PRN Constipation 12/01/22 01/30/23 History calcium carbonate 500 mg-vitamin 1 tab PO DAILY 12/01/22 01/30/23 History D3 5 mcg (200 unit) tablet (Oyster Shell Calcium-Vitamin D3) clotrimazole 1 % topical cream 1 applic topical UD 12/01/22 01/30/23 History lorazepam 0.5 mg tablet 0.5 mg PO DAILY PRN anxiety/sleep 12/01/22 01/30/23 History mirtazapine 30 mg tablet (Remeron) 30 mg PO DAILY 12/01/22 01/30/23 History multivit,stress formula-zinc tablet 1 tab PO DAILY 12/01/22 01/30/23 History vitamin A-vitamin C-vit E-min 1 tab PO DAILY 12/01/22 01/30/23 History tablet warfarin 1 mg tablet 1 - 2 mg PO UD 12/01/22 01/30/23 History Patient History Medical History Ambulatory dysfunction Atrial fibrillation Cerebrovascular disease Chronic systolic CHF (congestive heart failure) Compression fracture of L4 lumbar vertebra HX BROKEN BACK Coronary artery disease Diabetes mellitus type 2 with complications Diabetic neuropathy Dyslipidemia Berman catheter in place gets changed monthly Generalized OA Heart failure History of airway aspiration History of colon cancer HX COLON SURGERY History of hepatitis B History of melanoma HX MELANOMA, HX MULTIPLE SKIN CA & REMOVED History of Mohs micrographic surgery for skin cancer History of prostate cancer PROSTATECTOMY Hypertension Lumbar spinal stenosis Pacemaker "DUAL" - PT NOT SURE BRAND, PLACED D/T AFIB - [place]ER[place] ZAMORANO PVD (peripheral vascular disease) Renal failure ? stage Surgical History H/O prostatectomy History of anesthesia reaction WITH TESTICULAR SURGERY, [facility] - INCREASED BP & HAD TO STAY OVERNIGHT History of cardiac cath years ago> [facility] - CHECKING FOR BLOCKAGE - NO STENTS History of colonoscopy MULTIPLE History of right hemicolectomy History of testicular surgery History of tonsillectomy and adenoidectomy Family History Mother Coronary heart disease Father Heart disease Social History Smoking Status: Never smoker Second Hand Exposure: No; Do You Dip or Chew Tobacco: No; Tobacco Cessation Education Requested by Patient: No Hx Alcohol Use: No Hx Substance Use: No Preferred Language: Portuguese Communication Ability: Effective Hearing Ability: Hard of Hearing Dewatering Filtering Supervisor Required: No Beliefs That Will Affect Care: None marital status: Single Current Living Situation: Alone Current Living Situation Comment: caregivers come to see him daily current occupational status: retired How many Children do You have: 0 Other Information That Helps Us Care for You: No Feels Safe at Home: Yes Safety Concerns: Feels Safe At This Time Diet: diabetic Diet Comment: Increased protein for healing per chart during the past year weight has: remained stable Assistive Devices: Hospital Bed, Scooter/Electric Scooter, Walker and Wheelchair Physical Exam Skin: Ulcer present submetatarsal 5 left foot measures roughly 2.5 cm in diameter there is hypergranular tissue present from the 11:00 to 3 o'clock position remainder of the ulcer has ischemic nonviable tissue, no malodor no heavy drainage surrounding tissue intact skin coloration improved. Results & Data Vital Signs (Past 12 Hours) Vital Signs Temp Pulse Pulse Resp BP Pulse Ox O2 Del Method 02/06/23 10:08 66 02/06/23 08:41 36.4 C L 68 16 154/67 H 97 Room Air 02/06/23 02:52 36.4 C L 65 16 126/69 99 Room Air
--- NOTE | 2023-02-06 13:06 | Pharmacy Report ---
Pharmacy Glycemic Short Note 2 - Date of Service February 06, 2023 - Glycemic Short BSG Results (Last 24 hours): 02/05/23 02/05/23 02/06/23 16:11 20:36 05:29 Glucose 91 POC Glucose 116 H 94 02/06/23 02/06/23 07:34 12:09 Glucose POC Glucose 104 H 167 H OUTPATIENT ANTIDIABETIC REGIMEN: * Lantus 16 units SQ qAM * A1c = 6.6% ASSESSMENT: 02/06: * Patient received 8 units of insulin yesterday, 5 of which were basal. Patient is ordered a diet. * BSGs were stable yesterday [phone] mg/dL * Fasting 104 mg/dL today; continue 5 units of lantus in AM * No changes to novolog at this time 02/03: * Sujit received 7 units of insulin yesterday of which 5 were basal. He had a procedure yesterday and was NPO leading to the decreased insulin need. * Fasting BSG this AM within goal range continue current basal regimen * BSGs well controlled, no changes to Novolog at this time * He continues on clindamycin, daptomycin and Zosyn 01/31: * Sujit is a 87 yo T2DM admitted for non healing diabetic foot ulcer. * Patient was initially made NPO pending vascular consult eval. He was previously scheduled for revascularization of nonhealing left fifth metatarsal on 02/03/23. Lantus dosed reduced on admission for NPO status and suspected decreased need while also receiving bolus insulin. Diet resumed today at lunchtime. * During April 2022 admission, patient required Lantus 6 units BID + Novolog CF/CR 20/02 . PLAN FOR INPATIENT GLYCEMIC CONTROL: * Basal insulin * Lantus 5 units SQ qAM * Bolus insulin * NovoLog per scale ACHS or Q6hrs while NPO * Goal Range: Low 110 mg/dL - High 140 mg/dL * Correction Factor: 30 mg/dL/unit * Nutritional / Prandial insulin per carb ratio of 1 unit per 10 grams CHO consumed
[2023-02-06] MEDS: HYDROCODONE/ACETAMOPHEN 5/325MG TAB PO PRN (15:23)
[2023-02-06] MEDS: WARFARIN SOD 3 MG TAB PO SCH (15:25)
[2023-02-06] MEDS: AMIODARONE 200 MG TAB PO SCH (20:23)
[2023-02-06] MEDS: MIRTAZAPINE TAB 15 MG TAB PO SCH (20:24)
[2023-02-06] MEDS: LORazepam 0.5 MG TAB PO PRN (20:27)
[2023-02-06] MEDS: ZOLPIDEM TARTRATE 5 MG TAB PO PRN (23:23)
[2023-02-07] MEDS: AMPICILLIN 2,000 MG in 0.9 % SODIUM CHLORIDE 100 ML IV SCH ×4 (02:20→20:56)
[2023-02-07] MEDS: CLINDAMYCIN/D5W 300 MG/50 ML BAG IV SCH ×3 (02:22→19:52)
[2023-02-07 06:45] LABS: Basophils # (auto) 0.01 K/uL (0.00-0.20); Basophils % (auto) 0.1 %; Eosinophils # (auto) 0.04 K/uL (0.00-0.50); Eosinophils % (auto) 0.5 %; Hematocrit (blood only) 33.1 % (42.0-52.0); Hemoglobin 11.4 g/dl (14.0-18.0); Immature Granulocytes # (auto) 0.08 K/uL (0.01-0.20); Immature Granulocytes % (auto) 1.1 %; Lymphocytes # (auto) 2.23 K/uL (1.20-3.40); Lymphocytes % (auto) 29.8 %; Mean Corpuscular Hemoglobin 30.7 pg (25.0-34.0); Mean Corpuscular Hgb Conc 34.4 g/dL (32.0-36.0); Mean Corpuscular Volume 89.2 fL (80.0-100.0); Mean Platelet Volume 9.5 fL (9.4-12.4); Monocytes # (auto) 0.63 K/uL (0.11-0.59); Monocytes % (auto) 8.4 %; Neutrophils % (auto) 60.1 %; Platelet Count 165 K/uL (130-400); RDW Standard Deviation 48.7 fL (36.4-46.3); Red Blood Count 3.71 M/uL (4.70-6.10); White Blood Count 7.49 K/ul (4.8-10.8)
[2023-02-07 07:12] LABS: Albumin Globulin Ratio 1.1 (0.9-2); Albumin Level 2.8 gm/dl (3.4-5.0); BUN Creatinine Ratio 18.9 (10-20); Bilirubin,Total 0.5 mg/dl (0.2-1.0); Calcium 7.8 mg/dl (8.6-10.3); Creatinine Clr Calc Pharmacy 57.1 ml/min; Est GFR (African American) 68.8 ml/min; Est GFR (Non-African American) 59.4 ml/min; Globulin 2.6 gm/dl (2.5-4.0); Magnesium 1.8 mg/dl (1.7-2.4); Phosphorus 2.6 mg/dl (2.5-4.9); Potassium 3.5 mmol/L (3.5-5.1); Total Protein 5.4 gm/dl (6.0-8.3)
[2023-02-07] MEDS: CALCIUM 600MG + VIT D 400 IU TAB PO SCH (08:40)
[2023-02-07] MEDS: MAGNESIUM OXIDE 400 MG TAB PO SCH (08:40)
[2023-02-07] MEDS: GABAPENTIN 300 MG CAP PO SCH ×3 (08:40→21:01)
[2023-02-07] MEDS: METOPROLOL SUCC 25MG EXT REL TAB PO SCH (08:40)
[2023-02-07] MEDS: MULTIVITAMIN TAB PO SCH (08:41)
[2023-02-07] MEDS: CLOPIDOGREL BISULFATE 75 MG TAB PO SCH (08:41)
[2023-02-07] MEDS: LORATADINE 10 MG TAB PO SCH (08:41)
[2023-02-07] MEDS: LANTUS PER UNIT CHARGE SC SCH (08:43)
[2023-02-07] MEDS: INSULIN ASPART PER UNIT CHARGE SC SCH ×4 (08:44→22:13)
[2023-02-07] MEDS: DOCUSATE SODIUM 100 MG CAP PO SCH ×2 (08:45→21:00)
[2023-02-07] MEDS: HYDROCODONE/ACETAMOPHEN 5/325MG TAB PO PRN (10:49)
[2023-02-07] MEDS ORDERED: STAT IV/IM STA (11:52)
[2023-02-07 12:36] LABS: INR 2.2 (0.9-1.1)
[2023-02-07] MEDS: CALCIUM GLUCONATE 10% 1,000 MG in SODIUM CHLOR 0.9% MINI-B 50 ML IV SCH ×2 (12:41→12:45)
--- NOTE | 2023-02-07 12:53 | Podiatry Consultation ---
Date of Consultation February 07, 2023 Assessment & Plan (1) Diabetic infection of left foot: We will continue to monitor the progression of the ulceration, cultures were still pending when last checked, once obtained patient will be stable to be discharged with antibiotics and should have follow-up with both the wound care center, vascular medicine and myself, we will continue to monitor the progression of the ulceration. All questions of patient and patient's home health aide provided to their satisfaction. (2) PAD (peripheral artery disease): History of Present Illness Reason for Consultation: Left foot arterial ulcer Attending Physician: Katerine Foy MD History of Present Illness Patient is a very pleasant 87-year-old male seen at bedside today, nurse Esme who is his home health care provider and nurse present in room. Following up for left foot ulcer submetatarsal 5. On evaluation today all dressings were removed ulcer evaluated I did appreciate significant increase in granular tissue this is secondary to the biopsy and debridement I performed a bedside but overall this area is looking stable and improved versus prior to his arterial angioplasty and balloon stent I appreciate an increase of the coloration of the left lower extremity and overall patient has a stable white blood cell count there is no acute cellulitis I do appreciate that the bone likely is underlying osteomyelitis. At this point awaiting culture results for further advice on what antibiotic patient will be discharged on goal is to see how much this wound heals with conservative care of wound dressings and oral antibiotics for the treatment of the osteomyelitis. At this point not scheduling any elective surgery could consist of TMA versus fifth toe and fifth metatarsal resection versus BKA. But again would like to see how this improves with oral antibiotics and continued wound care. Patient has no concerns he was eating his lunch having no pain or discomfort for the most part patient is nonambulatory he has not walked since he sustained a fall and injured his shoulder and was in [facility] uses a wheelchair for a mbulation. Allergies Allergy/AdvReac Type Severity Reaction Status Date / Time Macrolide Antibiotics Allergy Unknown PER Verified 01/30/23 16:04 MEDICAL RECORD sildenafil Allergy Unknown SWELLING Verified 01/30/23 16:04 OF FACE AND HEAD streptomycin Allergy Unknown N/V Verified 01/30/23 16:04 sulfite Allergy Unknown THROAT Verified 01/30/23 16:04 SWELLING nitrofurantoin AdvReac Diarrhea Verified 01/30/23 16:04 Sulfites Allergy Unknown throat Uncoded 01/30/23 16:04 swelling VASODILATORS Allergy Unknown "PERIPHERAL Uncoded 01/30/23 16:04 DILATOR" swelling of face and head Streptomycin Sulfate POWD AdvReac Unknown N/V Uncoded 01/30/23 16:04 Home Medications Medication Instructions Recorded Confirmed Type amiodarone 200 mg tablet 200 mg PO QAM 01/02/18 01/30/23 History insulin glargine 100 unit/mL 8 units subcut BID 01/02/18 01/30/23 History subcutaneous solution loratadine 10 mg tablet 10 mg PO QAM 01/02/18 01/30/23 History magnesium oxide 400 mg (241.3 mg 400 mg PO QAM 01/02/18 01/30/23 History magnesium) tablet metoprolol succinate 25 mg 25 mg PO QAM 01/02/18 01/30/23 History tablet,extended release 24 hr zolpidem 5 mg tablet (Ambien) 5 mg PO HS 01/02/18 01/30/23 History gabapentin 300 mg capsule 300 mg PO TID 03/10/18 01/30/23 History docusate sodium 100 mg capsule 100 mg PO BID 04/27/22 01/30/23 History (Colace) hydrocodone 5 mg-acetaminophen 325 0.5 tab PO Q12H PRN pain,severe 04/27/22 01/30/23 History mg tablet mometasone 0.1 % topical solution 1 applic topical DAILY PRN Itching 04/27/22 01/30/23 History acetaminophen 325 mg capsule 650 mg PO QID PRN PAIN/FEVER 05/10/22 01/30/23 History furosemide 20 mg tablet 40 mg PO QAM 06/28/22 01/30/23 History bisacodyl 10 mg rectal suppository 10 mg [place] DAILY PRN Constipation 12/01/22 01/30/23 History calcium carbonate 500 mg-vitamin 1 tab PO DAILY 12/01/22 01/30/23 History D3 5 mcg (200 unit) tablet (Oyster Shell Calcium-Vitamin D3) clotrimazole 1 % topical cream 1 applic topical UD 12/01/22 01/30/23 History lorazepam 0.5 mg tablet 0.5 mg PO DAILY PRN anxiety/sleep 12/01/22 01/30/23 History mirtazapine 30 mg tablet (Remeron) 30 mg PO DAILY 12/01/22 01/30/23 History multivit,stress formula-zinc tablet 1 tab PO DAILY 12/01/22 01/30/23 History vitamin A-vitamin C-vit E-min 1 tab PO DAILY 12/01/22 01/30/23 History tablet warfarin 1 mg tablet 1 - 2 mg PO UD 12/01/22 01/30/23 History Patient History Medical History Ambulatory dysfunction Atrial fibrillation Cerebrovascular disease Chronic systolic CHF (congestive heart failure) Compression fracture of L4 lumbar vertebra HX BROKEN BACK Coronary artery disease Diabetes mellitus type 2 with complications Diabetic neuropathy Dyslipidemia Berman catheter in place gets changed monthly Generalized OA Heart failure History of airway aspiration History of colon cancer HX COLON SURGERY History of hepatitis B History of melanoma HX MELANOMA, HX MULTIPLE SKIN CA & REMOVED History of Mohs micrographic surgery for skin cancer History of prostate cancer PROSTATECTOMY Hypertension Lumbar spinal stenosis Pacemaker "DUAL" - PT NOT SURE BRAND, PLACED D/T AFIB - [place] ZAMORANO PVD (peripheral vascular disease) Renal failure ? stage Surgical History H/O prostatectomy History of anesthesia reaction WITH TESTICULAR SURGERY, [facility] - INCREASED BP & HAD TO STAY OVERNIGHT History of cardiac cath years ago> [facility] - CHECKING FOR BLOCKAGE - NO STENTS History of colonoscopy MULTIPLE History of right hemicolectomy History of testicular surgery History of tonsillectomy and adenoidectomy Family History Mother Coronary heart disease Father Heart disease Social History Smoking Status: Never smoker Second Hand Exposure: No; Do You Dip or Chew Tobacco: No; Hx Alcohol Use: No Hx Substance Use: No Preferred Language: Vietnamese Communication Ability: Effective Hearing Ability: Hard of Hearing Wood Gouger Required: No Beliefs That Will Affect Care: None marital status: Single Current Living Situation: Alone Current Living Situation Comment: caregivers come to see him daily current occupational status: retired How many Children do You have: 0 Feels Safe at Home: Yes Diet: diabetic Diet Comment: Increased protein for healing per chart during the past year weight has: remained stable Assistive Devices: Hospital Bed, Scooter/Electric Scooter, Walker and Wheelchair Physical Exam Skin: All dressings removed, ulceration present submetatarsal 5 left foot there is increased granular tissue there is still an island centrally within the ulceration of nonviable eschar there is no malodor there is no ascending erythema coloration of foot significantly improved since having vascular procedure I did appreciate a faint dorsalis pedis pulse on palpation today. Foot is warm and dry as well. Dressings reapplied consisting of Xeroform 4 x 4 gauze roll gauze and an Rey bandage. Results & Data Vital Signs (Past 12 Hours) Vital Signs Temp Pulse Resp BP Pulse Ox O2 Del Method 02/07/23 11:24 36.5 C 62 18 133/73 97 Room Air 02/07/23 08:00 Room Air 02/07/23 07:22 36.6 C 64 18 149/67 H 96 Room Air 02/07/23 04:02 36.5 C 69 18 157/69 H 94 Room Air
--- NOTE | 2023-02-07 15:00 | Orthopedic Consultation ---
Date of Consultation February 07, 2023 Assessment & Plan (1) Diabetic infection of left foot: Health discussed my findings with Dr. Moe Pringle. I think that he has a chronic diabetic foot ulcer. This is partly related to the limited mobility and posturing of his foot secondary to old trauma. I suspect that there is likely osteomyelitis of his fifth metatarsal distally. His circulation is addressed and likely adequate for healing. I think he would likely benefit from fifth ray resection and probably a wound VAC. History of Present Illness Attending Physician: Katerine Foy MD History of Present Illness Dr. Moe Pringle asked me to see Mr. Dickson. He has had a wound on the lateral aspect of his left foot for several months. There is a history of a old ankle fracture. He recently had angioplasty and stent performed on the left leg with Dr. Ulrich. Allergies Allergy/AdvReac Type Severity Reaction Status Date / Time Macrolide Antibiotics Allergy Unknown PER Verified 01/30/23 16:04 MEDICAL RECORD sildenafil Allergy Unknown SWELLING Verified 01/30/23 16:04 OF FACE AND HEAD streptomycin Allergy Unknown N/V Verified 01/30/23 16:04 sulfite Allergy Unknown THROAT Verified 01/30/23 16:04 SWELLING nitrofurantoin AdvReac Diarrhea Verified 01/30/23 16:04 Sulfites Allergy Unknown throat Uncoded 01/30/23 16:04 swelling VASODILATORS Allergy Unknown "PERIPHERAL Uncoded 01/30/23 16:04 DILATOR" swelling of face and head Streptomycin Sulfate POWD AdvReac Unknown N/V Uncoded 01/30/23 16:04 Home Medications Medication Instructions Recorded Confirmed Type amiodarone 200 mg tablet 200 mg PO QAM 01/02/18 01/30/23 History insulin glargine 100 unit/mL 8 units subcut BID 01/02/18 01/30/23 History subcutaneous solution loratadine 10 mg tablet 10 mg PO QAM 01/02/18 01/30/23 History magnesium oxide 400 mg (241.3 mg 400 mg PO QAM 01/02/18 01/30/23 History magnesium) tablet metoprolol succinate 25 mg 25 mg PO QAM 01/02/18 01/30/23 History tablet,extended release 24 hr zolpidem 5 mg tablet (Ambien) 5 mg PO HS 01/02/18 01/30/23 History gabapentin 300 mg capsule 300 mg PO TID 03/10/18 01/30/23 History docusate sodium 100 mg capsule 100 mg PO BID 04/27/22 01/30/23 History (Colace) hydrocodone 5 mg-acetaminophen 325 0.5 tab PO Q12H PRN pain,severe 04/27/22 01/30/23 History mg tablet mometasone 0.1 % topical solution 1 applic topical DAILY PRN Itching 04/27/22 01/30/23 History acetaminophen 325 mg capsule 650 mg PO QID PRN PAIN/FEVER 05/10/22 01/30/23 History furosemide 20 mg tablet 40 mg PO QAM 06/28/22 01/30/23 History bisacodyl 10 mg rectal suppository 10 mg [place] DAILY PRN Constipation 12/01/22 01/30/23 History calcium carbonate 500 mg-vitamin 1 tab PO DAILY 12/01/22 01/30/23 History D3 5 mcg (200 unit) tablet (Oyster Shell Calcium-Vitamin D3) clotrimazole 1 % topical cream 1 applic topical UD 12/01/22 01/30/23 History lorazepam 0.5 mg tablet 0.5 mg PO DAILY PRN anxiety/sleep 12/01/22 01/30/23 History mirtazapine 30 mg tablet (Remeron) 30 mg PO DAILY 12/01/22 01/30/23 History multivit,stress formula-zinc tablet 1 tab PO DAILY 12/01/22 01/30/23 History vitamin A-vitamin C-vit E-min 1 tab PO DAILY 12/01/22 01/30/23 History tablet warfarin 1 mg tablet 1 - 2 mg PO UD 12/01/22 01/30/23 History Patient History Medical History Ambulatory dysfunction Atrial fibrillation Cerebrovascular disease Chronic systolic CHF (congestive heart failure) Compression fracture of L4 lumbar vertebra HX BROKEN BACK Coronary artery disease Diabetes mellitus type 2 with complications Diabetic neuropathy Dyslipidemia Berman catheter in place gets changed monthly Generalized OA Heart failure History of airway aspiration History of colon cancer HX COLON SURGERY History of hepatitis B History of melanoma HX MELANOMA, HX MULTIPLE SKIN CA & REMOVED History of Mohs micrographic surgery for skin cancer History of prostate cancer PROSTATECTOMY Hypertension Lumbar spinal stenosis Pacemaker "DUAL" - PT NOT SURE BRAND, PLACED D/T AFIB - [facility] ZAMORANO PVD (peripheral vascular disease) Renal failure ? stage Surgical History H/O prostatectomy History of anesthesia reaction WITH TESTICULAR SURGERY, [facility] - INCREASED BP & HAD TO STAY OVERNIGHT History of cardiac cath years ago> [facility] - CHECKING FOR BLOCKAGE - NO STENTS History of colonoscopy MULTIPLE History of right hemicolectomy History of testicular surgery History of tonsillectomy and adenoidectomy Family History Mother Coronary heart disease Father Heart disease Social History Smoking Status: Never smoker Second Hand Exposure: No; Do You Dip or Chew Tobacco: No; Hx Alcohol Use: No Hx Substance Use: No Preferred Language: Solomon Islander Communication Ability: Effective Hearing Ability: Hard of Hearing Tobacco Curer Required: No Beliefs That Will Affect Care: None marital status: Single Current Living Situation: Alone Current Living Situation Comment: caregivers come to see him daily current occupational status: retired How many Children do You have: 0 Feels Safe at Home: Yes Diet: diabetic Diet Comment: Increased protein for healing per chart during the past year weight has: remained stable Assistive Devices: Hospital Bed, Scooter/Electric Scooter, Walker and Wheelchair Physical Exam Physical Exam: There is an eschar on the dorsal aspect of the big toe which is removed revealing Asa skin underneath it. The foot is not notably swollen or erythematous. He can wiggle his toes flex and extend the ankle. Ankle movement is limited. Eversion is restricted and he has a slightly inverted static posture of the ankle. He has 5- out of 5 strength to ankle plantarflexion dorsiflexion and inversion. Weaker and limited with eversion. PT pulses not palpable at but DP pulses trace to 1+. Cap refill less than 2 seconds. There is a 2-1/2 cm diameter wound located over the lateral aspect of the distal fifth metatarsal. It is probably centered just proximal to the fifth metatarsal head. There is a 1-1/2 cm wide x2 cm long strand of black necrotic tissue. There is no surrounding erythema or drainage. Some granulation tissue is presen t anteriorly and there is some bleeding with palpation. His sensation is limited in the foot. I can palpate the joint capsule but no direct exposed bone. Results & Data Vital Signs (Past 12 Hours) Vital Signs Temp Pulse Resp BP Pulse Ox O2 Del Method 02/07/23 11:24 36.5 C 62 18 133/73 97 Room Air 02/07/23 08:00 Room Air 02/07/23 07:22 36.6 C 64 18 149/67 H 96 Room Air 02/07/23 04:02 36.5 C 69 18 157/69 H 94 Room Air Diagnostic Findings White count is normal. He is on antibiotics. X-rays show diffuse degenerative changes. There is arthritis of the ankle. Vascular calcifications. No obvious fractures or osteomyelitis is noted. CT scan is reviewed and this shows irregularity and dissolution of the distal fifth metatarsal concerning for osteomyelitis. There is also some air within the subcutaneous tissues which is probably related to his wound. This is isolated to the toe and not proximal. There is no subcutaneous emphysema on examination. And not significant tenderness.
[2023-02-07] MEDS ORDERED: MICONAZOLE NITRATE POWDER 85 GM EXT PRN (15:56)
--- NOTE | 2023-02-07 15:58 | Hospitalist Progress Note ---
Date of Service February 07, 2023 Assessment & Plan (1) Diabetic infection of left foot: (2) Chronic systolic heart failure: (3) CKD (chronic kidney disease), stage III: (4) Pacemaker: (5) Diabetes mellitus type 2 with complications: (6) Coronary artery disease: (7) Atrial fibrillation: Plan Mr. Thayer is an 87 year old male that presented to the ED per recommendations by wound clinic for evaluation of his non healing foot wound. He was seen in the setting of persistent non healing diabetic ulcers of the 5th metatarsal showing signs of tissue loss and tunneling. He has a history of PAD, CAD, atrial fibrillation on warfarin, diabetes with neuropathy and history of foot wounds. He completed a course of doxycycline 2 weeks [employer]OR H[employer]; now seeing purulent drainage and had concerns of deeper infection. 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 Surface wound culture from admission showing Enterococcus pansensitive -Patient was previously on empiric Dapto and Zosyn. Seen by ID who recommended IV ampicillin 2 g every 6 hours for now (started on 02/03/2023) and strongly recommended bone biopsy. Bone biopsy and repeat/deep cultures done on 02/06 by podiatry- appreciate recs for discharge abx by both ID and podiatry -Bone biopsy pathology consistent with osteomyelitis -Pt seen by orthopedics-recommending pt might benefit from fifth ray resection and probably a wound VAC -Advised by podiatry that plan is for fifth ray resection on 02/13, will require holding warfarin from Saturday 02/10 Peripheral arterial occlusive disease -status post angioplasty and stenting of left lower extremity by interventional cardiology. -Recommendations noted-continue Plavix for 1 month and follow-up with vascular surgery in 2 weeks -Anticoagulation as below Paroxysmal atrial fibrillation on Coumadin-status post vitamin K for vascular procedure. Continue Coumadin along with therapeutic Lovenox bridging until INR therapeutic. Continue telemetry. -Home dose of Coumadin is 1 mg MWF and 2 mg rest of the week. -Started on Coumadin 3 mg daily 02/03/2023. Continue 3 mg of Coumadin until therapeutic. -Pacemaker in place. -Continue Amiodarone, metoprolol Chronic CHF Last ECHO 02/11: LV function mildly reduced. LV wall thickness concentric. EF 45%. Grade I DDx. Lasix resumed, volume status stable. ALISSA on CKD III Chronic Berman Monitor renal function Avoid nephrotoxic agents as able, lasix resumed Currently wnl DM II with peripheral neuropathy HbA1C: 6.6 Continue Gabapentin Continue insulin per protocol Monitor BGs DVT Px: Coumadin, INR currently therapeutic Dispo: has [facility] HH services, will likely need placement if needs extended IV abx. TBD as pt hesitant. Admission and Anticipated Discharge Date Admission Date: January 30, 2023 Subjective States that abdominal pain was improved from the day before. Pt stated that he would like an oral antibiotic as he would like to go home instead of being placed. Also concerned about his INR. Received notification from podiatry, that pt will be undergoing surgery likely on the , would like warfarin held from the . Review of Systems Review of Systems: All systems reviewed & are unremarkable except as noted in Subjective Physical Exam Physical Exam: General: Alert, oriented. No acute distress Skin: No noted rashes or bruises Psych: Appropriate mood and affect Neuro: No gross deficits but limited exam HEENT: NC/AT Chest: Nontender to palpation. CV: RRR Resp: Breath sounds clear bilaterally, no increased effort of breathing. Abdomen: Soft, nontender Extremities: feet wrapped bilaterally Results & Data Results & Data Vital Signs (Past 12 Hours) Vital Signs Temp Pulse Resp BP Pulse Ox O2 Del Method 02/07/23 15:55 36.8 C 58 L 18 136/71 96 Room Air 02/07/23 11:24 36.5 C 62 18 133/73 97 Room Air 02/07/23 08:00 Room Air 02/07/23 07:22 36.6 C 64 18 149/67 H 96 Room Air 02/07/23 04:02 36.5 C 69 18 157/69 H 94 Room Air (6) Coronary artery disease Associated angina: without angina Coronary Disease-Associated Artery/Lesion type: [place] artery [place] vs. transplanted heart: [place] heart Qualified C ode(s): I25.10 - Atherosclerotic heart disease of [place] coronary artery without angina pectoris (7) Atrial fibrillation Atrial fibrillation type: unspecified Qualified Code(s): I48.91 - Unspecified atrial fibrillation
[2023-02-07] MEDS: WARFARIN SOD 3 MG TAB PO SCH (16:52)
[2023-02-07] MEDS: AMIODARONE 200 MG TAB PO SCH (21:01)
[2023-02-07] MEDS: MIRTAZAPINE TAB 15 MG TAB PO SCH (21:03)
[2023-02-07] MEDS: LORazepam 0.5 MG TAB PO PRN (21:06)
[2023-02-07] MEDS: ZOLPIDEM TARTRATE 5 MG TAB PO PRN (23:17)
[2023-02-08] MEDS: HYDROCODONE/ACETAMOPHEN 5/325MG TAB PO PRN ×2 (00:11→12:32)
[2023-02-08] MEDS: AMPICILLIN 2,000 MG in 0.9 % SODIUM CHLORIDE 100 ML IV SCH ×4 (02:19→20:44)
[2023-02-08 06:38] LABS: Basophils # (auto) 0.01 K/uL (0.00-0.20); Basophils % (auto) 0.1 %; Eosinophils # (auto) 0.06 K/uL (0.00-0.50); Eosinophils % (auto) 0.8 %; Hematocrit (blood only) 33.4 % (42.0-52.0); Hemoglobin 11.7 g/dl (14.0-18.0); Immature Granulocytes # (auto) 0.08 K/uL (0.01-0.20); Lymphocytes # (auto) 2.15 K/uL (1.20-3.40); Lymphocytes % (auto) 27.4 %; Mean Corpuscular Hemoglobin 31.1 pg (25.0-34.0); Mean Corpuscular Volume 88.8 fL (80.0-100.0); Mean Platelet Volume 9.2 fL (9.4-12.4); Monocytes # (auto) 0.63 K/uL (0.11-0.59); Neutrophils # (auto) 4.91 K/uL (1.40-6.50); Neutrophils % (auto) 62.7 %; Platelet Count 179 K/uL (130-400); RDW Coefficient of Variation 14.9 % (11.5-14.5); Red Blood Count 3.76 M/uL (4.70-6.10); White Blood Count 7.84 K/ul (4.8-10.8)
[2023-02-08 06:54] LABS: Albumin Globulin Ratio 1.2 (0.9-2); Albumin Level 2.9 gm/dl (3.4-5.0); BUN Creatinine Ratio 17.3 (10-20); Bilirubin,Total 0.5 mg/dl (0.2-1.0); Creatinine Clr Calc Pharmacy 57.9 ml/min; Est GFR (African American) 69.6 ml/min; Globulin 2.5 gm/dl (2.5-4.0); Magnesium 1.8 mg/dl (1.7-2.4); Phosphorus 2.9 mg/dl (2.5-4.9); Potassium 3.6 mmol/L (3.5-5.1); Total Protein 5.4 gm/dl (6.0-8.3)
[2023-02-08 07:02] LABS: INR 2.2 (0.9-1.1); Prothrombin Time 22.9 Seconds (9.0-12.0)
--- NOTE | 2023-02-08 09:47 | Pharmacy Report ---
Pharmacy Glycemic Sign Off Nt - Date of Service February 08, 2023 - Assessment & Plan ASSESSMENT: * Pharmacy was consulted by Leila Bowles on 01/30/23 for glycemic control and to write orders per [facility] inpatient glycemic control protocol. * Major changes made by pharmacy to antidiabetic regimen include: * initiation of Lantus 5 units daily * Patient has been receiving/requiring ~15-25 units of insulin per day for adequate glycemic control * BSGs ranging 88- 161 mg/dl * Regimen has only required minor adjustments over the past 48hrs to achieve this level of control * Do not anticipate further changes in patient status that would quickly deteriorate glycemic control (i.e. patient to be NPO for upcoming procedure, steroids tapering, starting tube feedings, etc). * Please see recommendations for outpatient antidiabetic regimen below. PLAN FOR INPATIENT GLYCEMIC CONTROL: No changes needed to current regimen. * Continue basal insulin with Lantus 5 units SQ daily * Continue NovoLog per scale ACHS/Q6hrs while NPO * Goal range = 110 140 mg/dl * CF = 30 mg/dl/unit * CR = 1 unit for ever 10 g CHO consumed * Pharmacy is signing off of glycemic consult and will no longer be making adjustments to inpatient regimen. Please feel free to re-consult if needed. Thank you.
[2023-02-08] MEDS: METOPROLOL SUCC 25MG EXT REL TAB PO SCH (10:10)
[2023-02-08] MEDS: MAGNESIUM OXIDE 400 MG TAB PO SCH (10:10)
[2023-02-08] MEDS: MULTIVITAMIN TAB PO SCH (10:10)
[2023-02-08] MEDS: LORATADINE 10 MG TAB PO SCH (10:11)
[2023-02-08] MEDS: CLOPIDOGREL BISULFATE 75 MG TAB PO SCH (10:11)
[2023-02-08] MEDS: GABAPENTIN 300 MG CAP PO SCH ×3 (10:11→20:41)
[2023-02-08] MEDS: DOCUSATE SODIUM 100 MG CAP PO SCH (10:15)
[2023-02-08] MEDS: LANTUS PER UNIT CHARGE SC SCH (10:21)
[2023-02-08] MEDS: INSULIN ASPART PER UNIT CHARGE SC SCH ×3 (10:22→17:36)
[2023-02-08] MEDS: CALCIUM CARBONATE 1250MG TAB PO SCH ×2 (10:51→20:41)
[2023-02-08] MEDS: CALCIUM 600MG + VIT D 400 IU TAB PO SCH (11:19)
[2023-02-08] MEDS: FUROSEMIDE 40 MG TAB PO SCH (13:17)
[2023-02-08] MEDS: WARFARIN SOD 3 MG TAB PO SCH ×2 (17:33→18:30)
--- NOTE | 2023-02-08 20:01 | Hospitalist Progress Note ---
Date of Service February 08, 2023 Assessment & Plan (1) Diabetic infection of left foot: (2) Chronic systolic heart failure: (3) CKD (chronic kidney disease), stage III: (4) Pacemaker: (5) Diabetes mellitus type 2 with complications: (6) Coronary artery disease: (7) Atrial fibrillation: Plan Mr. Thayer is an 87 year old male that presented to the ED per recommendations by wound clinic for evaluation of his non healing foot wound. He was seen in the setting of persistent non healing diabetic ulcers of the 5th metatarsal showing signs of tissue loss and tunneling. He has a history of PAD, CAD, atrial fibrillation on warfarin, diabetes with neuropathy and history of foot wounds. He completed a course of doxycycline 2 weeks [employer]ON [employer]KER; now seeing purulent drainage and had concerns of deeper infection. 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 Surface wound culture from admission showing Enterococcus pansensitive -Patient was previously on empiric Dapto and Zosyn. Seen by ID who recommended IV ampicillin 2 g every 6 hours for now (started on 02/03/2023) and strongly recommended bone biopsy. Bone biopsy and repeat/deep cultures done on 02/06 by podiatry- appreciate recs for discharge abx by both ID and podiatry -Bone biopsy pathology consistent with osteomyelitis -Bone and foot sample Cx from 02/06 growing corynebacterium and probable enterococcus at this time -appreciate further ID recs -Pt seen by orthopedics-recommending pt might benefit from fifth ray resection and probably a wound VAC -Advised by podiatry that plan is for fifth ray resection on 02/13, will require holding warfarin from Saturday 02/10 Peripheral arterial occlusive disease -status post angioplasty and stenting of left lower extremity by interventional cardiology. -Recommendations noted-continue Plavix for 1 month and follow-up with vascular surgery in 2 weeks -Anticoagulation as below Paroxysmal atrial fibrillation on Coumadin-status post vitamin K for vascular procedure. Continue Coumadin along with therapeutic Lovenox bridging until INR therapeutic. Continue telemetry. -Home dose of Coumadin is 1 mg MWF and 2 mg rest of the week. -Started on Coumadin 3 mg daily 02/03/2023. Continue 3 mg of Coumadin at this time. -Pacemaker in place. -Continue Amiodarone, metoprolol Chronic CHF Last ECHO 02/11: LV function mildly reduced. LV wall thickness concentric. EF 45%. Grade I DDx. Lasix resumed, volume status stable. ALISSA on CKD III Chronic Berman Monitor renal function Avoid nephrotoxic agents as able, lasix resumed Currently wnl DM II with peripheral neuropathy HbA1C: 6.6 Continue Gabapentin Continue insulin per protocol Monitor BGs DVT Px: Coumadin, INR currently therapeutic Dispo: has [facility] HH services, will likely need placement if needs extended IV abx. TBD as pt hesitant. Admission and Anticipated Discharge Date Admission Date: January 30, 2023 Subjective Pt seen multiple times during the day. Initially, seen in the AM. Plan for treatment discussed at that time. Had not yet been seen by podiatry. Later notified by nursing that he was declining medications and did not want wound care to examine the wound. Pt concerned about his INR. States abdominal pain improved Review of Systems Review of Systems: All systems reviewed & are unremarkable except as noted in Subjective Physical Exam Physical Exam: General: Alert, oriented. No acute distress Skin: No noted rashes or bruises Psych: Appropriate mood and affect Neuro: No gross deficits but limited exam HEENT: NC/AT Chest: Nontender to palpation. CV: RRR Resp: Breath sounds clear bilaterally, no increased effort of breathing. Abdomen: Soft, nontender Extremities: feet wrapped bilaterally Results & Data Results & Data Vital Signs (Past 12 Hours) Vital Signs Temp Pulse Resp BP BP Pulse Ox O2 Del Method 02/08/23 19:12 36.9 C 60 16 126/72 95 Room Air 02/08/23 16:21 36.7 C 60 18 135/72 98 Room Air 02/08/23 13:56 Room Air 02/08/23 11:56 36.7 C 63 18 148/65 H 97 Room Air (6) Coronary artery disease Associated angina: without angina Coronary Disease-Associated Artery/Lesion type: [place] artery [place] vs. transplanted heart: [place] heart Qualified Code(s): I25.10 - Atherosclerotic heart disease of [place] coronary artery without angina pectoris (7) Atrial fibrillation Atrial fibrillation type: unspecified Qualified Code(s): I48.91 - Unspecified atrial fibrillation
[2023-02-08] MEDS: AMIODARONE 200 MG TAB PO SCH (20:40)
[2023-02-08] MEDS: LORazepam 0.5 MG TAB PO PRN (20:40)
[2023-02-08] MEDS: MIRTAZAPINE TAB 15 MG TAB PO SCH (20:42)
[2023-02-08] MEDS: ZOLPIDEM TARTRATE 5 MG TAB PO PRN (23:20)
[2023-02-09] MEDS: AMPICILLIN 2,000 MG in 0.9 % SODIUM CHLORIDE 100 ML IV SCH ×4 (01:45→21:48)
[2023-02-09] MEDS: DOCUSATE SODIUM 100 MG CAP PO SCH ×3 (06:17→21:56)
[2023-02-09] MEDS: INSULIN ASPART PER UNIT CHARGE SC SCH ×5 (06:18→21:49)
[2023-02-09 06:36] LABS: Basophils # (auto) 0.03 K/uL (0.00-0.20); Basophils % (auto) 0.4 %; Eosinophils # (auto) 0.03 K/uL (0.00-0.50); Eosinophils % (auto) 0.4 %; Hematocrit (blood only) 33.3 % (42.0-52.0); Hemoglobin 11.6 g/dl (14.0-18.0); Immature Granulocytes # (auto) 0.08 K/uL (0.01-0.20); Lymphocytes # (auto) 1.95 K/uL (1.20-3.40); Lymphocytes % (auto) 23.4 %; Mean Corpuscular Hemoglobin 30.8 pg (25.0-34.0); Mean Corpuscular Hgb Conc 34.8 g/dL (32.0-36.0); Mean Corpuscular Volume 88.3 fL (80.0-100.0); Mean Platelet Volume 9.2 fL (9.4-12.4); Monocytes # (auto) 0.68 K/uL (0.11-0.59); Monocytes % (auto) 8.1 %; Neutrophils # (auto) 5.58 K/uL (1.40-6.50); Neutrophils % (auto) 66.7 %; Platelet Count 186 K/uL (130-400); RDW Coefficient of Variation 15.1 % (11.5-14.5); RDW Standard Deviation 48.1 fL (36.4-46.3); Red Blood Count 3.77 M/uL (4.70-6.10); White Blood Count 8.35 K/ul (4.8-10.8)
[2023-02-09 07:05] LABS: Albumin Globulin Ratio 1.1 (0.9-2); Albumin Level 2.8 gm/dl (3.4-5.0); BUN Creatinine Ratio 18.8 (10-20); Bilirubin,Total 0.5 mg/dl (0.2-1.0); Calcium 7.8 mg/dl (8.6-10.3); Creatinine Clr Calc Pharmacy 66.1 ml/min; Est GFR (Non-African American) 70.8 ml/min; Globulin 2.5 gm/dl (2.5-4.0); Magnesium 1.7 mg/dl (1.7-2.4); Phosphorus 2.9 mg/dl (2.5-4.9); Potassium 3.6 mmol/L (3.5-5.1); Total Protein 5.3 gm/dl (6.0-8.3)
[2023-02-09 07:20] LABS: INR 2.2 (0.9-1.1); Prothrombin Time 22.8 Seconds (9.0-12.0)
[2023-02-09] MEDS: MULTIVITAMIN TAB PO SCH (08:54)
[2023-02-09] MEDS: MAGNESIUM OXIDE 400 MG TAB PO SCH (08:54)
[2023-02-09] MEDS: METOPROLOL SUCC 25MG EXT REL TAB PO SCH (08:54)
[2023-02-09] MEDS: GABAPENTIN 300 MG CAP PO SCH ×3 (08:54→21:55)
[2023-02-09] MEDS: LORATADINE 10 MG TAB PO SCH (08:54)
[2023-02-09] MEDS: CLOPIDOGREL BISULFATE 75 MG TAB PO SCH (08:55)
[2023-02-09] MEDS: FUROSEMIDE 40 MG TAB PO SCH (08:55)
[2023-02-09] MEDS: CALCIUM CARBONATE 1250MG TAB PO SCH ×2 (08:55→21:55)
[2023-02-09] MEDS: LANTUS PER UNIT CHARGE SC SCH (08:59)
[2023-02-09] MEDS ORDERED: STAT IV/IM STA (09:04)
--- NOTE | 2023-02-09 09:05 | Hospitalist Progress Note ---
Date of Service February 09, 2023 Assessment & Plan (1) Diabetic infection of left foot: (2) Chronic systolic heart failure: (3) CKD (chronic kidney disease), stage III: (4) Pacemaker: (5) Diabetes mellitus type 2 with complications: (6) Coronary artery disease: (7) Atrial fibrillation: Plan Mr. Thayer is an 87 year old male that presented to the ED per recommendations by wound clinic for evaluation of his non healing foot wound. He was seen in the setting of persistent non healing diabetic ulcers of the 5th metatarsal showing signs of tissue loss and tunneling. He has a history of PAD, CAD, atrial fibrillation on warfarin, diabetes with neuropathy and history of foot wounds. 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 Surface wound culture from admission showing Enterococcus pansensitive -Patient was previously on empiric Dapto and Zosyn. Seen by ID who recommended IV ampicillin 2 g every 6 hours for now (started on 02/03/2023) and strongly recommended bone biopsy. Bone biopsy and repeat/deep cultures done on 02/06 by podiatry-appreciate recs for discharge abx by both ID and podiatry -Bone biopsy pathology consistent with osteomyelitis -Bone and foot sample Cx from 02/06 growing corynebacterium and enterococcus faecalis sensitive to ampicillin -appreciate further ID recs -Pt seen by orthopedics-recommending pt might benefit from fifth ray resection and probably a wound VAC -Advised by podiatry that plan is for fifth ray resection on 02/13, will require holding warfarin from Saturday 02/10 Peripheral arterial occlusive disease -status post angioplasty and stenting of left lower extremity by interventional cardiology. -Recommendations noted-continue Plavix for 1 month and follow-up with vascular surgery in 2 weeks -Anticoagulation as below Paroxysmal atrial fibrillation on Coumadin-status post vitamin K for vascular procedure. Continue Coumadin along with therapeutic Lovenox bridging until INR therapeutic. Continue telemetry. -Home dose of Coumadin is 1 mg MWF and 2 mg rest of the week. -Started on Coumadin 3 mg daily 02/03/2023. Continued 3 mg of Coumadin, held the evening of 02/09. -Pacemaker in place. -Continue Amiodarone, metoprolol Chronic CHF Last ECHO 02/11: LV function mildly reduced. LV wall thickness concentric. EF 45%. Grade I DDx. Lasix resumed, volume status stable. ALISSA on CKD III Chronic Berman Monitor renal function Avoid nephrotoxic agents as able, lasix resumed Currently wnl DM II with peripheral neuropathy HbA1C: 6.6 Continue Gabapentin Continue insulin per protocol Monitor BGs DVT Px: Coumadin being held Dispo: has [facility] HH services, will likely need placement if needs extended IV abx. TBD as pt hesitant. Admission and Anticipated Discharge Date Admission Date: January 30, 2023 Subjective Seen with caregiver at bedside. Per nursing pt refusing to be turned with noted sacral ulcer. Refusing medications. States that he is concerned about getting out of bed. States that he feels like he might get allergies from the items his skin comes into contact with, hence his resistance to recommendations from his nurses. Review of Systems Review of Systems: All systems reviewed & are unremarkable except as noted in Subjective Physical Exam Physical Exam: General: Alert, oriented. No acute distress Skin: No noted rashes or bruises Psych: Appropriate mood and affect Neuro: No gross deficits but limited exam HEENT: NC/AT Chest: Nontender to palpation. CV: RRR Resp: Breath sounds clear bilaterally, no increased effort of breathing. Abdomen: Soft, nontender Extremities: feet wrapped bilaterally Results & Data Results & Data Vital Signs (Past 12 Hours) Vital Signs Temp Pulse Pulse Resp BP BP Pulse Ox 02/09/23 07:30 36.5 C 72 18 149/67 H 98 02/09/23 07:44 02/09/23 07:27 63 02/09/23 03:17 36.5 C 65 16 152/79 H 96 02/08/23 23:13 36.9 C 59 L 18 138/64 98 O2 Del Method 02/09/23 07:30 Room Air 02/09/23 07:44 Room Air 02/09/23 07:27 02/09/23 03:17 Room Air 02/08/23 23:13 Room Air (6) Coronary artery disease Associated angina: without angina Coronary Disease-Associated Artery/Lesion type: [place] artery [place] vs. transplanted heart: [place] heart Qualified Code(s): I25.10 - Atherosclerotic heart disease of [place] coronary artery without angina pectoris (7) Atrial fibrillation Atrial fibrillation type: unspecified Qualified Code(s): I48.91 - Unspecified atrial fibrillation
[2023-02-09] MEDS: CALCIUM GLUCONATE 10% 1,000 MG in SODIUM CHLOR 0.9% MINI-B 50 ML IV SCH ×2 (10:24→10:59)
--- NOTE | 2023-02-09 13:00 | Podiatry Consultation ---
Date of Consultation February 09, 2023 Assessment & Plan (1) Diabetic infection of left foot: We will continue to monitor the progression of the ulceration, cultures were still pending when last checked, once obtained patient will be stable to be discharged with antibiotics and should have follow-up with both the wound care center, vascular medicine and myself, we will continue to monitor the progression of the ulceration. All questions of patient and patient's home health aide provided to their satisfaction. (2) PAD (peripheral artery disease): History of Present Illness Attending Physician: Katerine Foy MD History of Present Illness Patient is a very pleasant 87-year-old male seen at bedside with home health aide Jackie at bedside. Today we had a discussion about surgical intervention which he is agreeable to I did asked my colleague Tung Amin to evaluate and weigh in as well to ensure we are making the right decision. We collectively feel that a left foot fifth toe amputation and fifth metatarsal head resection with possible wound VAC application would be ideal to help heal his wound, we do not feel at this point that BKA would be needed, still feel there may be a wound present however feel that conditions would be more ideal for healing if infected bone were removed this was also the consensus that infectious disease had as well. Patient was consented today at bedside procedure will be on Monday spoke with his hospitalist today to have Coumadin held in anticipation for surgery on Monday. Reviewed postop recovery where patient will be able to bear weight on the foot for transitions only and will need follow-up with the wound care center for wound VAC changes. Additionally I ordered a wound care consult to have the VAC in place in his room ideally I would like the VAC applied by the wound care nurse as opposed to me applying it in the OR. Allergies Allergy/AdvReac Type Severity Reaction Status Date / Time Macrolide Antibiotics Allergy Unknown PER Verified 01/30/23 16:04 MEDICAL RECORD sildenafil Allergy Unknown SWELLING Verified 01/30/23 16:04 OF FACE AND HEAD streptomycin Allergy Unknown N/V Verified 01/30/23 16:04 sulfite Allergy Unknown THROAT Verified 01/30/23 16:04 SWELLING nitrofurantoin AdvReac Diarrhea Verified 01/30/23 16:04 Sulfites Allergy Unknown throat Uncoded 01/30/23 16:04 swelling VASODILATORS Allergy Unknown "PERIPHERAL Uncoded 01/30/23 16:04 DILATOR" swelling of face and head Streptomycin Sulfate POWD AdvReac Unknown N/V Uncoded 01/30/23 16:04 Home Medications Medication Instructions Recorded Confirmed Type amiodarone 200 mg tablet 200 mg PO QAM 01/02/18 01/30/23 History insulin glargine 100 unit/mL 8 units subcut BID 01/02/18 01/30/23 History subcutaneous solution loratadine 10 mg tablet 10 mg PO QAM 01/02/18 01/30/23 History magnesium oxide 400 mg (241.3 mg 400 mg PO QAM 01/02/18 01/30/23 History magnesium) tablet metoprolol succinate 25 mg 25 mg PO QAM 01/02/18 01/30/23 History tablet,extended release 24 hr zolpidem 5 mg tablet (Ambien) 5 mg PO HS 01/02/18 01/30/23 History gabapentin 300 mg capsule 300 mg PO TID 03/10/18 01/30/23 History docusate sodium 100 mg capsule 100 mg PO BID 04/27/22 01/30/23 History (Colace) hydrocodone 5 mg-acetaminophen 325 0.5 tab PO Q12H PRN pain,severe 04/27/22 01/30/23 History mg tablet mometasone 0.1 % topical solution 1 applic topical DAILY PRN Itching 04/27/22 01/30/23 History acetaminophen 325 mg capsule 650 mg PO QID PRN PAIN/FEVER 05/10/22 01/30/23 History furosemide 20 mg tablet 40 mg PO QAM 06/28/22 01/30/23 History bisacodyl 10 mg rectal suppository 10 mg CO DAILY PRN Constipation 12/01/22 01/30/23 History calcium carbonate 500 mg-vitamin 1 tab PO DAILY 12/01/22 01/30/23 History D3 5 mcg (200 unit) tablet (Oyster Shell Calcium-Vitamin D3) clotrimazole 1 % topical cream 1 applic topical UD 12/01/22 01/30/23 History lorazepam 0.5 mg tablet 0.5 mg PO DAILY PRN anxiety/sleep 12/01/22 01/30/23 History mirtazapine 30 mg tablet (Remeron) 30 mg PO DAILY 12/01/22 01/30/23 History multivit,stress formula-zinc tablet 1 tab PO DAILY 12/01/22 01/30/23 History vitamin A-vitamin C-vit E-min 1 tab PO DAILY 12/01/22 01/30/23 History tablet warfarin 1 mg tablet 1 - 2 mg PO UD 12/01/22 01/30/23 History Patient History Medical History Ambulatory dysfunction Atrial fibrillation Cerebrovascular disease Chronic systolic CHF (congestive heart failure) Compression fracture of L4 lumbar vertebra HX BROKEN BACK Coronary artery disease Diabetes mellitus type 2 with complications Diabetic neuropathy Dyslipidemia Berman catheter in place gets changed monthly Generalized OA Heart failure History of airway aspiration History of colon cancer HX COLON SURGERY History of hepatitis B History of melanoma HX MELANOMA, HX MULTIPLE SKIN CA & REMOVED History of Mohs micrographic surgery for skin cancer History of prostate cancer PROSTATECTOMY Hypertension Lumbar spinal stenosis Pacemaker "DUAL" - PT NOT SURE BRAND, PLACED D/T AFIB - ESTEBAN ZAMORANO PVD (peripheral vascular disease) Renal failure ? stage Surgical History H/O prostatectomy History of anesthesia reaction WITH TESTICULAR SURGERY, [facility] - INCREASED BP & HAD TO STAY OVERNIGHT History of cardiac cath years ago> [facility] - CHECKING FOR BLOCKAGE - NO STENTS History of colonoscopy MULTIPLE History of right hemicolectomy History of testicular surgery History of tonsillectomy and adenoidectomy Family History Mother Coronary heart disease Father Heart disease Social History Smoking Status: Never smoker Second Hand Exposure: No; Do You Dip or Chew Tobacco: No; Hx Alcohol Use: No Hx Substance Use: No Preferred Language: [place]ic Communication Ability: Effective Hearing Ability: Hard of Hearing Steward/Stewardess Second Class Required: No Beliefs That Will Affect Care: None marital status: Single Current Living Situation: Alone Current Living Situation Comment: caregivers come to see him daily current occupational status: retired How many Children do You have: 0 Feels Safe at Home: Yes Diet: diabetic Diet Comment: Increased protein for healing per chart during the past year weight has: remained stable Assistive Devices: Hospital Bed, Scooter/Electric Scooter, Walker and Wheelchair Physical Exam Skin: All dressings removed and the left foot ulceration evaluated this is stable with increased granular tissue of note since having his vascular procedure the dorsal left hallux ulcer has essentially healed at this point again I was able to very faintly palpate dorsalis pedis pulse on the left foot all dressings were removed ulceration inspected fully granular tissue appreciated less of the nonviable eschar tissue point that had been present prior visits. Dressings reapplied consisting of Xeroform gauze and an Rey bandage. Results & Data Vital Signs (Past 12 Hours) Vital Signs Temp Pulse Pulse Resp BP Pulse Ox O2 Del Method 02/09/23 11:00 36.4 C L 88 16 133/75 99 Room Air 02/09/23 07:30 36.5 C 72 18 149/67 H 98 Room Air 02/09/23 07:44 Room Air 02/09/23 07:27 63 02/09/23 03:17 36.5 C 65 16 152/79 H 96 Room Air
[2023-02-09] MEDS: WARFARIN SOD 3 MG TAB PO SCH (18:14)
[2023-02-09] MEDS: MIRTAZAPINE TAB 15 MG TAB PO SCH (21:54)
[2023-02-09] MEDS: AMIODARONE 200 MG TAB PO SCH (21:56)
[2023-02-09] MEDS: HYDROCODONE/ACETAMOPHEN 5/325MG TAB PO PRN (22:04)
[2023-02-09] MEDS: LORazepam 0.5 MG TAB PO PRN (22:05)
[2023-02-09] MEDS: ZOLPIDEM TARTRATE 5 MG TAB PO PRN (23:49)
[2023-02-10] MEDS: AMPICILLIN 2,000 MG in 0.9 % SODIUM CHLORIDE 100 ML IV SCH ×5 (02:30→23:23)
[2023-02-10 09:17] LABS: Basophils # (auto) 0.03 K/uL (0.00-0.20); Basophils % (auto) 0.4 %; Eosinophils # (auto) 0.06 K/uL (0.00-0.50); Eosinophils % (auto) 0.7 %; Hematocrit (blood only) 38.9 % (42.0-52.0); Hemoglobin 13.1 g/dl (14.0-18.0); Immature Granulocytes # (auto) 0.11 K/uL (0.01-0.20); Immature Granulocytes % (auto) 1.3 %; Lymphocytes # (auto) 2.62 K/uL (1.20-3.40); Mean Corpuscular Hemoglobin 30.7 pg (25.0-34.0); Mean Corpuscular Hgb Conc 33.7 g/dL (32.0-36.0); Mean Corpuscular Volume 91.1 fL (80.0-100.0); Mean Platelet Volume 8.9 fL (9.4-12.4); Monocytes # (auto) 0.81 K/uL (0.11-0.59); Monocytes % (auto) 9.9 %; Neutrophils # (auto) 4.56 K/uL (1.40-6.50); Neutrophils % (auto) 55.7 %; Platelet Count 229 K/uL (130-400); RDW Coefficient of Variation 15.6 % (11.5-14.5); RDW Standard Deviation 50.3 fL (36.4-46.3); Red Blood Count 4.27 M/uL (4.70-6.10); White Blood Count 8.19 K/ul (4.8-10.8)
[2023-02-10 09:37] LABS: Albumin Globulin Ratio 1.2 (0.9-2); Albumin Level 3.3 gm/dl (3.4-5.0); BUN Creatinine Ratio 17.3 (10-20); Bilirubin,Total 0.6 mg/dl (0.2-1.0); Calcium 8.4 mg/dl (8.6-10.3); Creatinine Clr Calc Pharmacy 60.8 ml/min; Est GFR (African American) 74.5 ml/min; Est GFR (Non-African American) 64.3 ml/min; Globulin 2.8 gm/dl (2.5-4.0); Magnesium 1.8 mg/dl (1.7-2.4); Phosphorus 3.2 mg/dl (2.5-4.9); Potassium 3.6 mmol/L (3.5-5.1); Total Protein 6.1 gm/dl (6.0-8.3)
[2023-02-10 09:44] LABS: Prothrombin Time 20.8 Seconds (9.0-12.0)
[2023-02-10] MEDS: LANTUS PER UNIT CHARGE SC SCH (10:00)
[2023-02-10] MEDS: INSULIN ASPART PER UNIT CHARGE SC SCH ×4 (11:48→21:41)
[2023-02-10] MEDS: METOPROLOL SUCC 25MG EXT REL TAB PO SCH (11:50)
[2023-02-10] MEDS: CALCIUM CARBONATE 1250MG TAB PO SCH ×2 (11:50→21:40)
[2023-02-10] MEDS: LORATADINE 10 MG TAB PO SCH (11:50)
[2023-02-10] MEDS: DOCUSATE SODIUM 100 MG CAP PO SCH ×2 (11:50→21:39)
[2023-02-10] MEDS: FUROSEMIDE 40 MG TAB PO SCH (11:50)
[2023-02-10] MEDS: MULTIVITAMIN TAB PO SCH (11:51)
[2023-02-10] MEDS: CLOPIDOGREL BISULFATE 75 MG TAB PO SCH (11:51)
[2023-02-10] MEDS: MAGNESIUM OXIDE 400 MG TAB PO SCH (11:51)
[2023-02-10] MEDS: GABAPENTIN 300 MG CAP PO SCH ×3 (11:51→21:39)
--- NOTE | 2023-02-10 12:18 | Podiatry Consultation ---
Date of Consultation February 10, 2023 Assessment & Plan (1) Diabetic infection of left foot: Patient scheduled on Monday for surgery he had no further questions or concerns at today's visit again I did discuss the instructions for his dressing change today with his nurse he had no further concerns we will see patient on Monday. (2) PAD (peripheral artery disease): History of Present Illness Reason for Consultation: Left foot ulcer Attending Physician: Katerine Foy MD History of Present Illness Patient seen at bedside today overall doing well was transition from the fourth floor down to the second floor he was on the bedpan when I was in from a rounding. I left dressings at his bedside and discussed with his nurse to adwoa leung his dressings later after he was done. He did not have any acute concerns we again reviewed his surgery which is upcoming on Monday. I discussed with patient that I would see him again on Monday and that I would not be available over the weekend for rounding he was understanding. He may leave the dressing in place on the left foot that is changed later today. He had no acute concerns. Allergies Allergy/AdvReac Type Severity Reaction Status Date / Time Macrolide Antibiotics Allergy Unknown PER Verified 01/30/23 16:04 MEDICAL RECORD sildenafil Allergy Unknown SWELLING Verified 01/30/23 16:04 OF FACE AND HEAD streptomycin Allergy Unknown N/V Verified 01/30/23 16:04 sulfite Allergy Unknown THROAT Verified 01/30/23 16:04 SWELLING nitrofurantoin AdvReac Diarrhea Verified 01/30/23 16:04 Sulfites Allergy Unknown throat Uncoded 01/30/23 16:04 swelling VASODILATORS Allergy Unknown "PERIPHERAL Uncoded 01/30/23 16:04 DILATOR" swelling of face and head Streptomycin Sulfate POWD AdvReac Unknown N/V Uncoded 01/30/23 16:04 Home Medications Medication Instructions Recorded Confirmed Type amiodarone 200 mg tablet 200 mg PO QAM 01/02/18 01/30/23 History insulin glargine 100 unit/mL 8 units subcut BID 01/02/18 01/30/23 History subcutaneous solution loratadine 10 mg tablet 10 mg PO QAM 01/02/18 01/30/23 History magnesium oxide 400 mg (241.3 mg 400 mg PO QAM 01/02/18 01/30/23 History magnesium) tablet metoprolol succinate 25 mg 25 mg PO QAM 01/02/18 01/30/23 History tablet,extended release 24 hr zolpidem 5 mg tablet (Ambien) 5 mg PO HS 01/02/18 01/30/23 History gabapentin 300 mg capsule 300 mg PO TID 03/10/18 01/30/23 History docusate sodium 100 mg capsule 100 mg PO BID 04/27/22 01/30/23 History (Colace) hydrocodone 5 mg-acetaminophen 325 0.5 tab PO Q12H PRN pain,severe 04/27/22 01/30/23 History mg tablet mometasone 0.1 % topical solution 1 applic topical DAILY PRN Itching 04/27/22 01/30/23 History acetaminophen 325 mg capsule 650 mg PO QID PRN PAIN/FEVER 05/10/22 01/30/23 History furosemide 20 mg tablet 40 mg PO QAM 06/28/22 01/30/23 History bisacodyl 10 mg rectal suppository 10 mg ND DAILY PRN Constipation 12/01/22 10/01/14 History calcium carbonate 500 mg-vitamin 1 tab PO DAILY 12/01/22 01/30/23 History D3 5 mcg (200 unit) tablet (Oyster Shell Calcium-Vitamin D3) clotrimazole 1 % topical cream 1 applic topical UD 12/01/22 01/30/23 History lorazepam 0.5 mg tablet 0.5 mg PO DAILY PRN anxiety/sleep 12/01/22 01/30/23 History mirtazapine 30 mg tablet (Remeron) 30 mg PO DAILY 12/01/22 01/30/23 History multivit,stress formula-zinc tablet 1 tab PO DAILY 12/01/22 01/30/23 History vitamin A-vitamin C-vit E-min 1 tab PO DAILY 12/01/22 01/30/23 History tablet warfarin 1 mg tablet 1 - 2 mg PO UD 12/01/22 01/30/23 History Patient History Medical History Ambulatory dysfunction Atrial fibrillation Cerebrovascular disease Chronic systolic CHF (congestive heart failure) Compression fracture of L4 lumbar vertebra HX BROKEN BACK Coronary artery disease Diabetes mellitus type 2 with complications Diabetic neuropathy Dyslipidemia Berman catheter in place gets changed monthly Generalized OA Heart failure History of airway aspiration History of colon cancer HX COLON SURGERY History of hepatitis B History of melanoma HX MELANOMA, HX MULTIPLE SKIN CA & REMOVED History of Mohs micrographic surgery for skin cancer History of prostate cancer PROSTATECTOMY Hypertension Lumbar spinal stenosis Pacemaker "DUAL" - PT NOT SURE BRAND, PLACED D/T AFIB - ESTEBAN ZAMORANO PVD (peripheral vascular disease) Renal failure ? stage Surgical History H/O prostatectomy History of anesthesia reaction WITH TESTICULAR SURGERY, [facility] - INCREASED BP & HAD TO STAY OVERNIGHT History of cardiac cath years ago> [facility] - CHECKING FOR BLOCKAGE - NO STENTS History of colonoscopy MULTIPLE History of right hemicolectomy History of testicular surgery History of tonsillectomy and adenoidectomy Family History Mother Coronary heart disease Father Heart disease Social History Smoking Status: Never smoker Second Hand Exposure: No; Do You Dip or Chew Tobacco: No; Hx Alcohol Use: No Hx Substance Use: No Preferred Language: Upper Sorbian Communication Ability: Effective Hearing Ability: Hard of Hearing Patient Care Representative Required: No Beliefs That Will Affect Care: None marital status: Single Current Living Situation: Alone Current Living Situation Comment: caregivers come to see him daily current occupational status: retired How many Children do You have: 0 Feels Safe at Home: Yes Diet: diabetic Diet Comment: Increased protein for healing per chart during the past year weight has: remained stable Assistive Devices: Hospital Bed, Scooter/Electric Scooter, Walker and Wheelchair Physical Exam Skin: Dressings not removed today due to patient being on bedpan. Results & Data Vital Signs (Past 12 Hours) Vital Signs Temp Pulse Pulse Resp BP Pulse Ox O2 Del Method 02/10/23 11:55 36.4 C L 67 18 160/82 H 96 Room Air 02/10/23 08:00 60 02/10/23 08:04 36.3 C L 64 16 159/76 H 100 Room Air 02/10/23 03:33 36.5 C 70 16 146/76 H 99 Room Air 02/10/23 02:56 64
--- NOTE | 2023-02-10 13:14 | Hospitalist Progress Note ---
Date of Service February 10, 2023 Assessment & Plan (1) Diabetic infection of left foot: (2) Chronic systolic heart failure: (3) CKD (chronic kidney disease), stage III: (4) Pacemaker: (5) Diabetes mellitus type 2 with complications: (6) Coronary artery disease: (7) Atrial fibrillation: Plan Mr. Thayer is an 87 year old male that presented to the ED per recommendations by wound clinic for evaluation of his non healing foot wound. He was seen in the setting of persistent non healing diabetic ulcers of the 5th metatarsal showing signs of tissue loss and tunneling. He has a history of PAD, CAD, atrial fibrillation on warfarin, diabetes with neuropathy and history of foot wounds. 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 Surface wound culture from admission showing Enterococcus pansensitive -Patient was previously on empiric Dapto and Zosyn. Seen by ID who recommended IV ampicillin 2 g every 6 hours for now (started on 02/03/2023) and strongly recommended bone biopsy. Bone biopsy and repeat/deep cultures done on 02/06 by podiatry-appreciate recs for discharge abx by both ID and podiatry -Bone biopsy pathology consistent with osteomyelitis -Bone and foot sample Cx from 02/06 growing corynebacterium and enterococcus faecalis sensitive to ampicillin -appreciate further ID recs -Pt seen by orthopedics-recommending pt might benefit from fifth ray resection and probably a wound VAC -Advised by podiatry that plan is for fifth ray resection on 02/13, will require holding warfarin from Saturday 02/10. Warfarin currently held. Peripheral arterial occlusive disease -status post angioplasty and stenting of left lower extremity by interventional cardiology. -Recommendations noted-continue Plavix for 1 month and follow-up with vascular surgery in 2 weeks -Anticoagulation as below Paroxysmal atrial fibrillation -Continue Amiodarone, metoprolol - Continue telemetry. -Home dose of Coumadin is 1 mg MWF and 2 mg rest of the week. -Started on Coumadin 3 mg daily 02/03/2023. Continued 3 mg of Coumadin, held the evening of 02/09 in anticipation of surgery on 02/13. INR currently 2.0. -Pacemaker in place. Chronic CHF Last ECHO 02/11: LV function mildly reduced. LV wall thickness concentric. EF 45%. Grade I DDx. Lasix resumed, volume status stable. ALISSA on CKD III Chronic Berman Monitor renal function Avoid nephrotoxic agents as able, lasix resumed Currently wnl DM II with peripheral neuropathy HbA1C: 6.6 Continue Gabapentin Continue insulin per protocol Monitor BGs Diet: HH/DMII DVT Px: Coumadin being held, INR still therapeutic at 2.0 on 02/10 Dispo: has [facility] HH services, will likely need placement if needs extended IV abx. TBD as pt hesitant. Admission and Anticipated Discharge Date Admission Date: January 30, 2023 Subjective Seen in the AM. Pt notes that he had a "big fight" with nursing. States he wants the chucks under him and does not want it taken out. Agreeable to working with PT today, states they said they would return. Otherwise denied acute concerns. Review of Systems Review of Systems: All systems reviewed & are unremarkable except as noted in Subjective Physical Exam Physical Exam: General: Alert, oriented. No acute distress Skin: No noted rashes or bruises Psych: Appropriate mood and affect Neuro: No gross deficits but limited exam HEENT: NC/AT Chest: Nontender to palpation. CV: RRR Resp: Breath sounds clear bilaterally, no increased effort of breathing. Abdomen: Soft, nontender Extremities: feet wrapped bilaterally Results & Data Results & Data Vital Signs (Past 12 Hours) Vital Signs Temp Pulse Pulse Resp BP Pulse Ox O2 Del Method 02/10/23 11:55 36.4 C L 67 18 160/82 H 96 Room Air 02/10/23 08:00 60 02/10/23 08:04 36.3 C L 64 16 159/76 H 100 Room Air 02/10/23 03:33 36.5 C 70 16 146/76 H 99 Room Air 02/10/23 02:56 64 (6) Coronary artery disease Associated angina: without angina Coronary Disease-Associated Artery/Lesion type: [place] artery [place] vs. transplanted heart: [place] heart Qualified Code(s): I25.10 - Atherosclerotic heart disease of [place] coronary artery without angina pectoris (7) Atrial fibrillation Atrial fibrillation type: unspecified Qualified Code(s): I48.91 - Unspecified atrial fibrillation
[2023-02-10] MEDS: LORazepam 0.5 MG TAB PO PRN (21:39)
[2023-02-10] MEDS: AMIODARONE 200 MG TAB PO SCH (21:40)
[2023-02-10] MEDS: MIRTAZAPINE TAB 15 MG TAB PO SCH (21:40)
[2023-02-10] MEDS: HYDROCODONE/ACETAMOPHEN 5/325MG TAB PO PRN (23:19)
[2023-02-10] MEDS: ZOLPIDEM TARTRATE 5 MG TAB PO PRN (23:19)
[2023-02-11] MEDS: AMPICILLIN 2,000 MG in 0.9 % SODIUM CHLORIDE 100 ML IV SCH ×5 (05:17→20:55)
[2023-02-11 07:18] LABS: Basophils # (auto) 0.02 K/uL (0.00-0.20); Basophils % (auto) 0.2 %; Eosinophils # (auto) 0.07 K/uL (0.00-0.50); Eosinophils % (auto) 0.8 %; Hematocrit (blood only) 35.2 % (42.0-52.0); Hemoglobin 12.1 g/dl (14.0-18.0); Immature Granulocytes # (auto) 0.08 K/uL (0.01-0.20); Immature Granulocytes % (auto) 0.9 %; Lymphocytes # (auto) 2.57 K/uL (1.20-3.40); Lymphocytes % (auto) 30.2 %; Mean Corpuscular Hemoglobin 30.9 pg (25.0-34.0); Mean Corpuscular Hgb Conc 34.4 g/dL (32.0-36.0); Mean Corpuscular Volume 89.8 fL (80.0-100.0); Mean Platelet Volume 9.1 fL (9.4-12.4); Monocytes # (auto) 0.87 K/uL (0.11-0.59); Monocytes % (auto) 10.2 %; Neutrophils % (auto) 57.7 %; Platelet Count 231 K/uL (130-400); RDW Coefficient of Variation 15.6 % (11.5-14.5); RDW Standard Deviation 50.4 fL (36.4-46.3); Red Blood Count 3.92 M/uL (4.70-6.10); White Blood Count 8.51 K/ul (4.8-10.8)
[2023-02-11 08:02] LABS: Albumin Globulin Ratio 1.2 (0.9-2); BUN Creatinine Ratio 16.8 (10-20); Bilirubin,Total 0.5 mg/dl (0.2-1.0); Calcium 8.1 mg/dl (8.6-10.3); Creatinine Clr Calc Pharmacy 53.4 ml/min; Est GFR (African American) 63.3 ml/min; Est GFR (Non-African American) 54.6 ml/min; Globulin 2.6 gm/dl (2.5-4.0); Magnesium 1.9 mg/dl (1.7-2.4); Phosphorus 3.1 mg/dl (2.5-4.9); Potassium 3.7 mmol/L (3.5-5.1); Total Protein 5.6 gm/dl (6.0-8.3)
[2023-02-11] MEDS: CLOPIDOGREL BISULFATE 75 MG TAB PO SCH (09:17)
[2023-02-11] MEDS: CALCIUM CARBONATE 1250MG TAB PO SCH ×2 (09:17→21:00)
[2023-02-11] MEDS: MAGNESIUM OXIDE 400 MG TAB PO SCH (09:17)
[2023-02-11] MEDS: METOPROLOL SUCC 25MG EXT REL TAB PO SCH (09:17)
[2023-02-11] MEDS: GABAPENTIN 300 MG CAP PO SCH ×3 (09:17→21:00)
[2023-02-11] MEDS: MULTIVITAMIN TAB PO SCH (09:18)
[2023-02-11] MEDS: DOCUSATE SODIUM 100 MG CAP PO SCH ×2 (09:18→21:00)
[2023-02-11] MEDS: LORATADINE 10 MG TAB PO SCH (09:18)
[2023-02-11] MEDS: FUROSEMIDE 40 MG TAB PO SCH (09:18)
[2023-02-11] MEDS: INSULIN ASPART PER UNIT CHARGE SC SCH ×4 (09:24→20:58)
[2023-02-11] MEDS: LANTUS PER UNIT CHARGE SC SCH (09:25)
--- NOTE | 2023-02-11 10:11 | Hospitalist Progress Note ---
Date of Service February 11, 2023 Assessment & Plan (1) Diabetic infection of left foot: (2) Chronic systolic heart failure: (3) CKD (chronic kidney disease), stage III: (4) Pacemaker: (5) Diabetes mellitus type 2 with complications: (6) Coronary artery disease: (7) Atrial fibrillation: Plan Mr. Thayer is an 87 year old male that presented to the ED per recommendations by wound clinic for evaluation of his non healing foot wound. He was seen in the setting of persistent non healing diabetic ulcers of the 5th metatarsal showing signs of tissue loss and tunneling. He has a history of PAD, CAD, atrial fibrillation on warfarin, diabetes with neuropathy and history of foot wounds. 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 Surface wound culture from admission showing Enterococcus pansensitive -Patient was previously on empiric Dapto and Zosyn. Seen by ID who recommended IV ampicillin 2 g (started on 02/03/2023) and strongly recommended bone biopsy. Bone biopsy and repeat/deep cultures done on 02/06 by podiatry-appreciate recs for discharge abx by both ID and podiatry -Bone biopsy pathology consistent with osteomyelitis -Bone and foot sample Cx from 02/06 growing corynebacterium and enterococcus faecalis sensitive to ampicillin -appreciate further ID recs -Pt seen by orthopedics-recommending pt might benefit from fifth ray resection and probably a wound VAC -Advised by podiatry that plan is for fifth ray resection on 02/13, will require holding warfarin from Saturday 02/10. Warfarin currently held. -monitor INR Peripheral arterial occlusive disease -status post angioplasty and stenting of left lower extremity by interventional cardiology. -Recommendations noted-continue Plavix for 1 month and follow-up with vascular surgery in 2 weeks -Anticoagulation as below Paroxysmal atrial fibrillation -Continue Amiodarone, metoprolol - Continue telemetry. -Home dose of Coumadin is 1 mg MWF and 2 mg rest of the week. -Started on Coumadin 3 mg daily 02/03/2023. Continued 3 mg of Coumadin, held the evening of 02/09 in anticipation of surgery on 02/13. INR currently 2.0. -Pacemaker in place. Chronic CHF Last ECHO 02/11: LV function mildly reduced. LV wall thickness concentric. EF 45%. Grade I DDx. Lasix resumed, volume status stable. ALISSA on CKD III Chronic Berman Monitor renal function Avoid nephrotoxic agents as able, lasix resumed Currently wnl DM II with peripheral neuropathy HbA1C: 6.6 Continue Gabapentin Continue insulin per protocol Monitor BGs Diet: HH/DMII DVT Px: Coumadin being held in anticipation of surgery Dispo: has [facility] HH services, will likely need placement if needs extended IV abx. TBD as pt hesitant. Admission and Anticipated Discharge Date Admission Date: January 30, 2023 Subjective Seen in the AM. Was sleeping, awakened. Denied acute concerns. Review of Systems Review of Systems: All systems reviewed & are unremarkable except as noted in Subjective Physical Exam Physical Exam: General: Sleeping. No acute distress Skin: No noted rashes or bruises Psych: Appropriate mood and affect Neuro: No gross deficits but limited exam HEENT: NC/AT Chest: Nontender to palpation. CV: RRR Resp: Breath sounds clear bilaterally, no increased effort of breathing. Abdomen: Soft, nontender Extremities: L leg more swollen then right, some erythema Results & Data Results & Data Vital Signs (Past 12 Hours) Vital Signs Temp Pulse Pulse Resp BP BP Pulse Ox 02/11/23 09:46 63 02/11/23 07:18 36.5 C 62 16 146/74 H 95 02/11/23 04:22 36.8 C 64 16 145/74 H 100 02/11/23 01:27 60 02/10/23 23:04 36.5 C 60 18 137/71 98 O2 Del Method 02/11/23 09:46 02/11/23 07:18 Room Air 02/11/23 04:22 Room Air 02/11/23 01:27 02/10/23 23:04 Room Air (6) Coronary artery disease Associated angina: without angina Coronary Disease-Associated Artery/Lesion type: [place] artery [place] vs. transplanted heart: [place] heart Qualified Code(s): I25.10 - Atherosclerotic heart disease of [place] coronary artery without angina pectoris (7) Atrial fibrillation Atrial fibrillation type: unspecified Qualified Code(s): I48.91 - Unspecified atrial fibrillation
[2023-02-11 15:14] LABS: INR 1.7 (0.9-1.1); Prothrombin Time 18.5 Seconds (9.0-12.0)
[2023-02-11] MEDS ORDERED: ENOXAPARIN 1 MG/KG SQ SCH (17:15)
[2023-02-11] MEDS: ENOXAPARIN 100 MG/1ML SYR SQ SCH (19:23)
[2023-02-11] MEDS: AMIODARONE 200 MG TAB PO SCH (20:59)
[2023-02-11] MEDS: MIRTAZAPINE TAB 15 MG TAB PO SCH (21:00)
[2023-02-11] MEDS: LORazepam 0.5 MG TAB PO PRN (21:02)
[2023-02-11] MEDS: HYDROCODONE/ACETAMOPHEN 5/325MG TAB PO PRN (23:31)
[2023-02-11] MEDS: ZOLPIDEM TARTRATE 5 MG TAB PO PRN (23:32)
[2023-02-12] MEDS: AMPICILLIN 2,000 MG in 0.9 % SODIUM CHLORIDE 100 ML IV SCH ×7 (01:22→23:25)
[2023-02-12] MEDS: ENOXAPARIN 100 MG/1ML SYR SQ SCH (05:10)
[2023-02-12 07:27] LABS: Basophils # (auto) 0.03 K/uL (0.00-0.20); Basophils % (auto) 0.4 %; Eosinophils # (auto) 0.08 K/uL (0.00-0.50); Hematocrit (blood only) 36.4 % (42.0-52.0); Hemoglobin 12.5 g/dl (14.0-18.0); Immature Granulocytes % (auto) 1.3 %; Lymphocytes # (auto) 2.49 K/uL (1.20-3.40); Lymphocytes % (auto) 31.4 %; Mean Corpuscular Hemoglobin 30.9 pg (25.0-34.0); Mean Corpuscular Hgb Conc 34.3 g/dL (32.0-36.0); Mean Corpuscular Volume 90.1 fL (80.0-100.0); Monocytes # (auto) 0.85 K/uL (0.11-0.59); Monocytes % (auto) 10.7 %; Neutrophils # (auto) 4.37 K/uL (1.40-6.50); Neutrophils % (auto) 55.2 %; Platelet Count 239 K/uL (130-400); RDW Coefficient of Variation 15.7 % (11.5-14.5); RDW Standard Deviation 51.3 fL (36.4-46.3); Red Blood Count 4.04 M/uL (4.70-6.10); White Blood Count 7.92 K/ul (4.8-10.8)
[2023-02-12 07:48] LABS: Albumin Globulin Ratio 1.1 (0.9-2); Albumin Level 3.1 gm/dl (3.4-5.0); BUN Creatinine Ratio 21.1 (10-20); Bilirubin,Total 0.5 mg/dl (0.2-1.0); Calcium 8.3 mg/dl (8.6-10.3); Creatinine Clr Calc Pharmacy 58.1 ml/min; Est GFR (African American) 70.4 ml/min; Est GFR (Non-African American) 60.7 ml/min; Globulin 2.7 gm/dl (2.5-4.0); Phosphorus 3.1 mg/dl (2.5-4.9); Potassium 3.9 mmol/L (3.5-5.1); Total Protein 5.8 gm/dl (6.0-8.3)
[2023-02-12 07:53] LABS: INR 1.6 (0.9-1.1); Prothrombin Time 16.9 Seconds (9.0-12.0)
[2023-02-12] MEDS: LANTUS PER UNIT CHARGE SC SCH (09:32)
[2023-02-12] MEDS: INSULIN ASPART PER UNIT CHARGE SC SCH ×4 (09:32→21:26)
[2023-02-12] MEDS: GABAPENTIN 300 MG CAP PO SCH ×3 (09:37→21:21)
[2023-02-12] MEDS: CALCIUM CARBONATE 1250MG TAB PO SCH (09:37)
[2023-02-12] MEDS: MAGNESIUM OXIDE 400 MG TAB PO SCH (09:37)
[2023-02-12] MEDS: FUROSEMIDE 40 MG TAB PO SCH (09:37)
[2023-02-12] MEDS: METOPROLOL SUCC 25MG EXT REL TAB PO SCH (09:37)
[2023-02-12] MEDS: MULTIVITAMIN TAB PO SCH (09:37)
[2023-02-12] MEDS: LORATADINE 10 MG TAB PO SCH (09:37)
[2023-02-12] MEDS: CLOPIDOGREL BISULFATE 75 MG TAB PO SCH (09:37)
[2023-02-12] MEDS: DOCUSATE SODIUM 100 MG CAP PO SCH ×2 (10:03→21:22)
--- NOTE | 2023-02-12 12:21 | Hospitalist Progress Note ---
Date of Service February 12, 2023 Assessment & Plan (1) Diabetic infection of left foot: (2) Chronic systolic heart failure: (3) CKD (chronic kidney disease), stage III: (4) Pacemaker: (5) Diabetes mellitus type 2 with complications: (6) Coronary artery disease: (7) Atrial fibrillation: Plan Mr. Thayer is an 87 year old male that presented to the ED per recommendations by wound clinic for evaluation of his non healing foot wound. He was seen in the setting of persistent non healing diabetic ulcers of the 5th metatarsal showing signs of tissue loss and tunneling. He has a history of PAD, CAD, atrial fibrillation on warfarin, diabetes with neuropathy and history of foot wounds. 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 Surface wound culture from admission showing pansensitive Enterococcus Patient was previously on empiric Dapto and Zosyn. Seen by ID who recommended IV ampicillin 2g (started on 02/03/2023) and strongly recommended bone biopsy. Bone biopsy and repeat/deep cultures done on 02/06 by podiatry-appreciate recs for discharge abx by both ID and podiatry -Bone biopsy pathology consistent with osteomyelitis -Bone and foot sample Cx from 02/06 growing corynebacterium and enterococcus faecalis sensitive to ampicillin, continue -Pt seen by orthopedics-recommending pt might benefit from fifth ray resection and probably a wound VAC -Advised by podiatry that plan is for fifth ray resection on 02/13, will require holding warfarin from Saturday 02/10. Warfarin currently held. -monitor INR Peripheral arterial occlusive disease status post angioplasty and stenting of left lower extremity by interventional cardiology on 02/02. Recommendations noted: -continue Plavix for 1 month and follow-up with vascular surgery in 2 weeks Anticoagulation with warfarin (see below) and Plavix Plavix to be held temporarily on day of surgery (02/13) Paroxysmal atrial fibrillation Continue Amiodarone, metoprolol Home dose of Coumadin is 1 mg MWF and 2 mg rest of the week. Started on Coumadin 3 mg daily 02/03/2023. 3 mg of Coumadin held the evening of 02/09 in anticipation of surgery on 02/13. INR downtrending. Pacemaker in place Chronic CHF Last ECHO 02/11: LV function mildly reduced. LV wall thickness concentric. EF 45%. Grade I DDx. Lasix resumed, volume status stable. ALISSA on CKD III Chronic Berman Monitor renal function Avoid nephrotoxic agents as able, lasix resumed Currently wnl DM II with peripheral neuropathy HbA1C: 6.6 Continue Gabapentin Continue insulin per protocol Monitor BGs Diet: HH/DMII DVT Px: Coumadin being held in anticipation of surgery Dispo: has [facility] HH services, will likely need placement if needs extended IV abx. TBD as pt hesitant. Admission and Anticipated Discharge Date Admission Date: January 30, 2023 Subjective Seen in the AM. Was eating breakfast. Denied acute concerns, states he is ready for surgery. Review of Systems Review of Systems: All systems reviewed & are unremarkable except as noted in Subjective Physical Exam Physical Exam: General: No acute distress Skin:Erythema on left leg Psych: Appropriate mood and affect Neuro: No gross deficits but limited exam HEENT: NC/AT Chest: Nontender to palpation. CV: RRR Resp: Breath sounds clear bilaterally, no increased effort of breathing. Abdomen: Soft, nontender Extremities: L leg more swollen then right, some erythema Results & Data Results & Data Vital Signs (Past 12 Hours) Vital Signs Temp Pulse Pulse Resp BP Pulse Ox O2 Del Method 02/12/23 11:16 36.4 C L 74 19 134/82 100 Room Air 02/12/23 10:57 65 02/12/23 08:26 36.6 C 76 17 135/80 100 Room Air 02/12/23 03:23 36.5 C 70 16 125/79 96 Room Air (6) Coronary artery disease Associated angina: without angina Coronary Disease-Associated Artery/Lesion type: [place] artery [place] vs. transplanted heart: [place] heart Qualified Code(s): I25.10 - Atherosclerotic heart disease of [place] coronary artery without angina pectoris (7) Atrial fibrillation Atrial fibrillation type: unspecified Qualified Code(s): I48.91 - Unspecified atrial fibrillation
[2023-02-12] MEDS: CALCIUM CITRATE 950 MG TAB PO SCH (21:20)
[2023-02-12] MEDS: AMIODARONE 200 MG TAB PO SCH (21:22)
[2023-02-12] MEDS: MIRTAZAPINE TAB 15 MG TAB PO SCH (21:23)
[2023-02-12] MEDS: LORazepam 0.5 MG TAB PO PRN (21:31)
[2023-02-12] MEDS: HYDROCODONE/ACETAMOPHEN 5/325MG TAB PO PRN (23:25)
[2023-02-12] MEDS: ZOLPIDEM TARTRATE 5 MG TAB PO PRN (23:25)
[2023-02-13] MEDS: AMPICILLIN 2,000 MG in 0.9 % SODIUM CHLORIDE 100 ML IV SCH ×6 (05:08→23:27)
[2023-02-13] MEDS: INSULIN ASPART PER UNIT CHARGE SC SCH ×4 (05:12→21:36)
[2023-02-13 07:49] LABS: Basophils # (auto) 0.02 K/uL (0.00-0.20); Basophils % (auto) 0.3 %; Eosinophils # (auto) 0.07 K/uL (0.00-0.50); Eosinophils % (auto) 0.9 %; Hematocrit (blood only) 33.4 % (42.0-52.0); Hemoglobin 11.2 g/dl (14.0-18.0); Immature Granulocytes # (auto) 0.07 K/uL (0.01-0.20); Immature Granulocytes % (auto) 0.9 %; Lymphocytes % (auto) 24.9 %; Mean Corpuscular Hemoglobin 30.7 pg (25.0-34.0); Mean Corpuscular Hgb Conc 33.5 g/dL (32.0-36.0); Mean Corpuscular Volume 91.5 fL (80.0-100.0); Mean Platelet Volume 9.2 fL (9.4-12.4); Monocytes # (auto) 0.78 K/uL (0.11-0.59); Monocytes % (auto) 10.2 %; Neutrophils # (auto) 4.78 K/uL (1.40-6.50); Neutrophils % (auto) 62.8 %; Platelet Count 244 K/uL (130-400); RDW Coefficient of Variation 15.9 % (11.5-14.5); RDW Standard Deviation 52.7 fL (36.4-46.3); Red Blood Count 3.65 M/uL (4.70-6.10); White Blood Count 7.62 K/ul (4.8-10.8)
[2023-02-13 07:52] LABS: INR 1.4 (0.9-1.1); Prothrombin Time 14.6 Seconds (9.0-12.0)
[2023-02-13 07:57] LABS: Albumin Globulin Ratio 1.2 (0.9-2); Albumin Level 2.8 gm/dl (3.4-5.0); BUN Creatinine Ratio 17.6 (10-20); Bilirubin,Total 0.4 mg/dl (0.2-1.0); Calcium 7.9 mg/dl (8.6-10.3); Est GFR (African American) 59.6 ml/min; Est GFR (Non-African American) 51.4 ml/min; Globulin 2.3 gm/dl (2.5-4.0); Magnesium 1.9 mg/dl (1.7-2.4); Phosphorus 3.2 mg/dl (2.5-4.9); Potassium 3.5 mmol/L (3.5-5.1); Total Protein 5.1 gm/dl (6.0-8.3)
[2023-02-13] MEDS ORDERED: PROPOFOL IV EMULSION 10 MG/ML 20 ML VIAL IV ONE (08:04)
[2023-02-13] MEDS ORDERED: fentaNYL citrate PF 100 MCG/2 ML VIAL ONE (08:05)
[2023-02-13] MEDS: LANTUS PER UNIT CHARGE SC SCH (08:30)
[2023-02-13] MEDS: LORATADINE 10 MG TAB PO SCH (08:45)
[2023-02-13] MEDS: GABAPENTIN 300 MG CAP PO SCH ×3 (08:45→21:20)
[2023-02-13] MEDS: MAGNESIUM OXIDE 400 MG TAB PO SCH (08:45)
[2023-02-13] MEDS: FUROSEMIDE 40 MG TAB PO SCH (08:45)
[2023-02-13] MEDS: METOPROLOL SUCC 25MG EXT REL TAB PO SCH (08:45)
[2023-02-13] MEDS: MULTIVITAMIN TAB PO SCH (08:46)
[2023-02-13] MEDS: CALCIUM CITRATE 950 MG TAB PO SCH ×2 (08:46→21:21)
[2023-02-13] MEDS: DOCUSATE SODIUM 100 MG CAP PO SCH ×2 (08:49→21:37)
[2023-02-13] MEDS ORDERED: BACITRACIN OINT 14 GM TUBE ONE (11:40)
[2023-02-13] MEDS ORDERED: LIDOCAINE 1% LOCAL 20 ML VIAL ONE (11:41)
[2023-02-13] MEDS ORDERED: BUPIVACAINE 0.25% PF 30 ML VIAL ONE (11:41)
[2023-02-13] MEDS: LACTATED RINGER'S 1,000 ML IV SCH (11:45)
--- NOTE | 2023-02-13 12:01 | History & Physical Bridge Note ---
Date of Service February 13, 2023 History & Physical Bridge Note I have examined the patient, reviewed the History & Physical and in the interval since the performance of the History & Physical I have noted the following changes of clinical significance: no changes noted left foot surgery.
--- NOTE | 2023-02-13 13:26 | Post Operative Brief Note ---
Immediate Post Op Note v1 Date of Surgery February 13, 2023 Pre & Post Diagnosis Operation Date: 02/13/23 12:00 Pre-Op Diagnosis: 1. Nonhealing Diabetic infection of left foot Post-Op Diagnosis: 1. 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
--- NOTE | 2023-02-13 13:29 | Operative Report ---
Post Operative Report Pre & Post Diagnosis Operation Date: 02/13/23 12:00 Pre-Op Diagnosis: 1. Nonhealing Diabetic infection of left foot Post-Op Diagnosis: 1. Nonhealing Diabetic infection of left foot I identified the patient and participated in the time-out.: Yes Procedure Operation Date: 02/13/23 12:00 Actual Procedures p Left Foot Fifth Ray Resection,(Left) - Karol Tran DPM s Ulcer Debridement, Possible Wound Vac Application(Left) - Karol Pringle DPM Surgeon Karol Tran DPM [employer] Assistant [place]hat Estimated Blood Loss 20 Findings Consistent with Post-Op Diagnosis bone left foot Specimens bone and soft tissue Drains none Complications none Indications Nonhealing ulcer diabetes arterial disease submetatarsal 5 left foot with underlying osteomyelitis Description of Procedure Patient was brought the operating room placed in the supine position the left lower extremities prepped and draped in usual sterile manner one-to-one mix of 1% lidocaine plain sent Marcaine was utilized to anesthetize the left foot near the left fifth metatarsal phalangeal joint and fifth metatarsal. At this point a timeout was taken procedure verified patient verified procedure verified patient identified anesthesia induced tourniquet inflated and the procedure began. A dorsal medial incision was made over the left fifth metatarsal carried distally and disarticulating the fifth toe at the metatarsal phalangeal joint the fifth toe was sent to pathology for permanent specimen. Next the fifth metatarsal head and into its shaft was removed just proximal to where the ulcer was present this was dissected free from all soft tissue tent soft tissue attachments and sent to pathology for permanent specimen. The osteomyelitic bone for biopsy was present this was present at the fifth metatarsal head. Next areas flushed with copious amounts of normal saline followed by pulse lavage with 3000 cc of sterile saline applied. Next the ulcer was debrided. Next all tissue was removed and sent to pathology for permanent specimen. Next utilizing a combination of 2-0 Vicryl and 2-0 and 0 Prolene the subcutaneous tissues and skin were closed in simple interrupted stitches next the TheraSkin graft was placed over the defect that remained from the ulceration this was sutured into the skin with 0 Prolene next compressive and corrective dressings were applied consisting of Adaptic gauze roll gauze abdominal pads Covan and an Rey bandage. At this point tourniquet was deflated patient good hemodynamic response noted to the lower extremity was taken to the recovery room with all vital signs stable and intact. Patient will remain on the floor under medicine service. I attest to the content of the Intraoperative Record and any orders documented therein. Any exceptions are noted below.
--- NOTE | 2023-02-13 13:29 | Anesthesiology Consultation ---
Date of Service February 13, 2023 Assessment & Plan Chart Review Chart Review: Acceptable Risk for Surgery Consults Requested none History Surgery Operation Date: 02/01/23 13:00 Proposed Procedures p Angiogram Extremity Bilateral - Genaro Ulrich MD Operation Date: 02/02/23 11:00 Proposed Procedures p Angio Extremity Bilateral - Genaro Ulrich MD Operation Date: 02/13/23 12:00 Proposed Procedures p Left Foot Fifth Ray Resection, - Karol Tran DPM s Ulcer Debridement, Possible Wound Vac Application - Karol Tran DPM Height/Weight Height: 6 ft Weight: 100 kg Allergies Allergy/AdvReac Type Severity Reaction Status Date / Time Macrolide Antibiotics Allergy Unknown PER Verified 01/30/23 16:04 MEDICAL RECORD sildenafil Allergy Unknown SWELLING Verified 01/30/23 16:04 OF FACE AND HEAD streptomycin Allergy Unknown N/V Verified 01/30/23 16:04 sulfite Allergy Unknown THROAT Verified 01/30/23 16:04 SWELLING nitrofurantoin AdvReac Diarrhea Verified 01/30/23 16:04 VASODILATORS Allergy Unknown "PERIPHERAL Uncoded 01/30/23 16:04 DILATOR" swelling of face and head Medications Home Medications Medication Instructions Recorded Confirmed Last Taken amiodarone 200 mg tablet 200 mg PO QAM 01/02/18 01/30/23 12/06/22 insulin glargine 100 unit/mL 8 units subcut BID 01/02/18 01/30/23 05/12/22 subcutaneous solution loratadine 10 mg tablet 10 mg PO QAM 01/02/18 01/30/23 12/06/22 magnesium oxide 400 mg (241.3 mg 400 mg PO QAM 01/02/18 01/30/23 12/06/22 magnesium) tablet metoprolol succinate 25 mg 25 mg PO QAM 01/02/18 01/30/23 12/06/22 tablet,extended release 24 hr zolpidem 5 mg tablet (Ambien) 5 mg PO HS 01/02/18 01/30/23 12/06/22 gabapentin 300 mg capsule 300 mg PO TID 03/10/18 01/30/23 12/06/22 docusate sodium 100 mg capsule 100 mg PO BID 04/27/22 01/30/23 12/06/22 (Colace) hydrocodone 5 mg-acetaminophen 325 0.5 tab PO Q12H PRN pain,severe 04/27/22 01/30/23 Unknown mg tablet mometasone 0.1 % topical solution 1 applic topical DAILY PRN Itching 04/27/22 01/30/23 Unknown acetaminophen 325 mg capsule 650 mg PO QID PRN PAIN/FEVER 05/10/22 01/30/23 05/12/22 09:57 furosemide 20 mg tablet 40 mg PO QAM 06/28/22 01/30/23 12/06/22 bisacodyl 10 mg rectal suppository 10 mg OK DAILY PRN Constipation 12/01/2201/14 Unknown calcium carbonate 500 mg-vitamin 1 tab PO DAILY 12/01/22 01/30/23 12/06/22 D3 5 mcg (200 unit) tablet (Oyster Shell Calcium-Vitamin D3) clotrimazole 1 % topical cream 1 applic topical UD 12/01/22 01/30/23 12/06/22 lorazepam 0.5 mg tablet 0.5 mg PO DAILY PRN anxiety/sleep 12/01/22 01/30/23 Unknown mirtazapine 30 mg tablet (Remeron) 30 mg PO DAILY 12/01/22 01/30/23 12/06/22 multivit,stress formula-zinc tablet 1 tab PO DAILY 12/01/22 01/30/23 12/06/22 vitamin A-vitamin C-vit E-min 1 tab PO DAILY 12/01/22 01/30/23 12/06/22 tablet warfarin 1 mg tablet 1 - 2 mg PO UD 12/01/22 01/30/23 12/06/22 Active Medications Generic Name Dose Route Start Last Admin Trade Name Freq PRN Reason Stop Dose Admin Acetaminophen 650 mg 01/30/23 18:57 02/10/23 11:50 Acetaminophen 325 Mg Tab PO 03/01/23 18:56 650 mg Q4H PRN Administration Pain or Fever Hydrocodone Bitart/Acetaminophen 0.5 tab 01/30/23 19:52 02/12/23 23:25 Hydrocodone/Acetamophen 5/325mg Tab PO 02/13/23 19:51 0.5 tab Q12H PRN Administration pain,severe Amiodarone HCl 200 mg 01/31/23 21:00 02/12/23 21:22 Amiodarone 200 Mg Tab PO 03/02/23 20:59 200 mg QPM ABIODUN Administration Calcium Citrate 600 mg 02/12/23 21:00 02/13/23 08:46 Calcium Citrate 950 Mg Tab PO 03/14/23 20:59 600 mg BID ABIODUN Administration Clopidogrel Bisulfate 75 mg 02/03/23 09:00 02/12/23 09:37 Clopidogrel Bisulfate 75 Mg Tab PO 03/05/23 08:59 75 mg QAM ABIODUN Administration Docusate Sodium 100 mg 01/31/23 16:30 02/13/23 08:49 Docusate Sodium 100 Mg Cap PO 03/02/23 16:29 Not Given BID ABIODUN Furosemide 40 mg 01/31/23 09:00 02/13/23 08:45 Furosemide 40 Mg Tab PO 03/02/23 08:59 40 mg QAM ABIODUN Administration Gabapentin 300 mg 01/30/23 21:00 02/13/23 08:45 Gabapentin 300 Mg Cap PO 03/01/23 20:59 300 mg TID ABIODUN Administration Ampicillin Sodium 2,000 mg/ 108 mls @ 216 mls/hr 02/10/23 16:00 02/13/23 09:36 Sodium Chloride IV 03/17/23 23:59 Infused Q4H ABIODUN Infusion Lactated Ringer's 1,000 mls @ 15 mls/hr 02/13/23 12:15 02/13/23 11:45 Lr IV 03/15/23 12:14 Not Given .Q24H ABIODUN Insulin Aspart 0 units 02/13/23 06:00 02/13/23 13:02 Insulin Aspart Per Unit Charge SC 03/15/23 05:59 Not Given Q6 ABIODUN Insulin Glargine 5 units 02/01/23 09:00 02/13/23 08:30 Lantus Per Unit Charge SC 03/03/23 08:59 Not Given QAM ABIODUN Loratadine 10 mg 01/31/23 09:00 02/13/23 08:45 Loratadine 10 Mg Tab PO 03/02/23 08:59 10 mg QAM ABIODUN Administration Lorazepam 0.5 mg 01/30/23 19:52 02/12/23 21:31 Lorazepam 0.5 Mg Tab PO 03/01/23 19:51 0.5 mg DAILY PRN Administration anxiety/sleep Magnesium Oxide 400 mg 01/31/23 09:00 02/13/23 08:45 Magnesium Oxide 400 Mg Tab PO 03/02/23 08:59 400 mg QAM ABIODUN Administration Metoprolol Succinate 25 mg 01/31/23 09:00 02/13/23 08:45 Metoprolol Succ 25mg Ext Rel Tab PO 03/02/23 08:59 25 mg QAM ABIODUN Administration Mirtazapine 30 mg 01/30/23 21:00 02/12/23 21:23 Mirtazapine Tab 15 Mg Tab PO 03/01/23 20:59 30 mg HS ABIODUN Administration Multivitamins 1 tab 01/31/23 16:30 02/13/23 08:46 Multivitamin Tab PO 03/02/23 16:29 1 tab QAM ABIODUN Administration Polyethylene Glycol 17 gm 01/30/23 18:57 02/04/23 09:06 Polyethylene (Miralax) 17 Gm Pack PO 03/01/23 18:56 17 gm DAILY PRN Administration Constipation Warfarin Sodium 3 mg 02/03/23 16:00 02/09/23 18:14 Warfarin Sod 3 Mg Tab PO 03/05/23 15:59 Not Given DAILY@1600 ABIODUN Zolpidem Tartrate 5 mg 01/30/23 20:35 02/12/23 23:25 Zolpidem Tartrate 5 Mg Tab PO 03/01/23 20:59 5 mg HS PRN Administration Insomnia Past Medical History Medical History Ambulatory dysfunction Atrial fibrillation Cerebrovascular disease Chronic systolic CHF (congestive heart failure) Compression fracture of L4 lumbar vertebra HX BROKEN BACK Coronary artery disease Diabetes mellitus type 2 with complications Diabetic neuropathy Dyslipidemia Berman catheter in place gets changed monthly Generalized OA Heart failure History of airway aspiration History of colon cancer HX COLON SURGERY History of hepatitis B History of melanoma HX MELANOMA, HX MULTIPLE SKIN CA & REMOVED History of Mohs micrographic surgery for skin cancer History of prostate cancer PROSTATECTOMY Hypertension Lumbar spinal stenosis Pacemaker "DUAL" - PT NOT SURE BRAND, PLACED D/T [facility]IB [facility] [employer] (peripheral vascular disease) Renal failure ? stage Past Family History Family History Mother Coronary heart disease Father Heart disease Past Surgical History Surgical History H/O prostatectomy History of anesthesia reaction WITH TESTICULAR SURGERY, [facility] - INCREASED BP & HAD TO STAY OVERNIGHT History of cardiac cath years ago> [facility] - CHECKING FOR BLOCKAGE - NO STENTS History of colonoscopy MULTIPLE History of right hemicolectomy History of testicular surgery History of tonsillectomy and adenoidectomy Social History Smoking Status: Never smoker Do You Dip or Chew Tobacco: No Hx Alcohol Use: No Alcohol type: wine alcohol intake frequency: a few times a week Hx Substance Use: No substance use type: does not use Physical Exam Vital Signs Last Vital Signs Temp 36.7 C 02/13/23 11:22 Pulse 71 02/13/23 11:22 Resp 20 02/13/23 11:22 BP 149/75 H 02/13/23 11:22 Pulse Ox 98 02/13/23 11:22 O2 Del Method Room Air 02/13/23 11:22 Testing Laboratory Results 02/13/23 06:37 02/13/23 06:37 PT 14.6 Seconds (9.0-12.0) H 02/13/23 06:37 INR 1.4 (0.9-1.1) H 02/13/23 06:37 APTT 35.0 Seconds (21.0-31.0) H 01/30/23 16:15 Hemoglobin A1c 6.6 % (4.5-5.6) H 01/31/23 06:29 02/06/23 12:35 Gram Stain - Final Bone Aerobic and Anaerobic Culture - Final Corynebacterium species Enterococcus faecalis 02/06/23 12:35 Gram Stain - Final Foot Wound Culture - Final Corynebacterium species Enterococcus faecalis 01/30/23 15:32 Aerobic Blood Culture - Final Blood No growth in Aerobic bottle after 5 days. Anaerobic Blood Culture - Final No growth in Anaerobic bottle after 5 days. 01/30/23 16:15 Aerobic Blood Culture - Final Blood No growth in Aerobic bottle after 5 days. Anaerobic Blood Culture - Final No growth in Anaerobic bottle after 5 days. 02/13/23 02/13/23 11:21 05:12 POC Glucose 123 H 98
[2023-02-13] MEDS ORDERED: ATROPINE SULFATE 0.1 MG/ML 10ML SYR IV PRN (13:40)
[2023-02-13] MEDS ORDERED: ePHEDrine sulfate 50 MG/ML AMP IV PRN (13:40)
[2023-02-13] MEDS ORDERED: HYDROCODONE/ACETAMOPHEN 5/325MG TAB PO STA (13:42)
--- NOTE | 2023-02-13 13:43 | Anesthesiology Progress Note ---
Date of Service February 13, 2023 Anesthesia Post Procedure Vital Signs Vital Signs: Temp Pulse Pulse Resp BP BP Pulse Ox 02/13/23 11:22 36.7 C 71 20 149/75 H 98 02/13/23 07:56 36.5 C 68 16 148/65 H 100 02/13/23 07:32 70 02/13/23 03:11 36.7 C 78 18 143/64 H 99 02/12/23 23:00 60 02/12/23 23:31 36.3 C L 60 18 129/66 99 02/12/23 19:00 36.6 C 64 18 133/61 99 02/12/23 15:40 66 02/12/23 15:21 36.6 C 68 19 122/58 L 96 O2 Del Method 02/13/23 11:22 Room Air 02/13/23 07:56 Room Air 02/13/23 07:32 02/13/23 03:11 Room Air 02/12/23 23:00 02/12/23 23:31 Room Air 02/12/23 19:00 Room Air 02/12/23 15:40 02/12/23 15:21 Room Air Pain Intensity Bilateral Leg: Pain Intensity: 4 Transfer of Care Handoff Completed per policy Notes Mental Status: alert / awake / arousable and participated in evaluation Patient Amnestic to Procedure: Yes Nausea / Vomiting: adequately controlled Pain: adequately controlled Airway Patency, RR, SpO2: stable & adequate BP & HR: stable & adequate Hydration State: stable & adequate Anesthetic Complications: no major complications apparent
--- NOTE | 2023-02-13 14:46 | Hospitalist Progress Note ---
Date of Service February 13, 2023 Assessment & Plan (1) Diabetic infection of left foot: (2) Chronic systolic heart failure: (3) CKD (chronic kidney disease), stage III: (4) Pacemaker: (5) Diabetes mellitus type 2 with complications: (6) Coronary artery disease: (7) Atrial fibrillation: Plan Mr. Thayer is an 87 year old male that presented to the ED per recommendations by wound clinic for evaluation of his non healing foot wound. He was seen in the setting of persistent non healing diabetic ulcers of the 5th metatarsal showing signs of tissue loss and tunneling. He has a history of PAD, CAD, atrial fibrillation on warfarin, diabetes with neuropathy and history of foot wounds. He completed a course of doxycycline 2 weeks [employer]; now seeing purulent drainage and had concerns of deeper infection. 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 Surface wound culture from admission showing pansensitive Enterococcus Patient was previously on empiric Dapto and Zosyn. Seen by ID who recommended IV ampicillin 2g (started on 02/03/2023) and strongly recommended bone biopsy. Bone biopsy and repeat/deep cultures done on 02/06 by podiatry-appreciate recs for discharge abx by both ID and podiatry -Bone biopsy pathology consistent with osteomyelitis -Bone and foot sample Cx from 02/06 growing corynebacterium and enterococcus faecalis sensitive to ampicillin, continue -Pt seen by orthopedics-recommending pt might benefit from fifth ray resection and probably a wound VAC -Advised by podiatry that plan is for fifth ray resection on 02/13, will require holding warfarin from Saturday 02/10. Warfarin currently held. -monitor INR Peripheral arterial occlusive disease status post angioplasty and stenting of left lower extremity by interventional cardiology on 02/02. Recommendations noted: -continue Plavix for 1 month and follow-up with vascular surgery in 2 weeks Anticoagulation with warfarin (see below) and Plavix Plavix to be held temporarily on day of surgery (02/13) Paroxysmal atrial fibrillation Continue Amiodarone, metoprolol Home dose of Coumadin is 1 mg MWF and 2 mg rest of the week. Started on Coumadin 3 mg daily 02/03/2023. 3 mg of Coumadin held the evening of 02/09 in anticipation of surgery on 02/13. INR downtrending. Pacemaker in place Chronic CHF Last ECHO 02/11: LV function mildly reduced. LV wall thickness concentric. EF 45%. Grade I DDx. Lasix resumed, volume status stable. ALISSA on CKD III Chronic Berman Monitor renal function Avoid nephrotoxic agents as able, lasix resumed Currently wnl DM II with peripheral neuropathy HbA1C: 6.6 Continue Gabapentin Continue insulin per protocol Monitor BGs Diet: HH/DMII DVT Px: Coumadin being held in anticipation of surgery, restart 24 hrs after surgery Dispo: has [facility] HH services, will likely need placement if needs extended IV abx. Pt now considering [facility] Admission and Anticipated Discharge Date Admission Date: January 30, 2023 Subjective Seen in the AM before surgery. Notes that he had a huge BM earlier. Also noted that he was thinking about being placed at [facility] but only in the part that he was in before. Otherwise denied acute concerns, states he is ready for surgery. Review of Systems Review of Systems: All systems reviewed & are unremarkable except as noted in Subjective Physical Exam Physical Exam: General: No acute distress Skin:Erythema on left leg Psych: Appropriate mood and affect Neuro: No gross deficits but limited exam HEENT: NC/AT Chest: Nontender to palpation. CV: RRR Resp: Breath sounds clear bilaterally, no increased effort of breathing. Abdomen: Soft, nontender Extremities: L leg more swollen then right, some erythema, foot with noted ulcer Results & Data Results & Data Vital Signs (Past 12 Hours) Vital Signs Temp Pulse Pulse Resp BP BP Pulse Ox 02/13/23 14:29 36.6 C 71 20 132/56 L 97 02/13/23 14:00 36.6 C 66 20 112/43 L 97 02/13/23 13:50 66 20 127/53 L 97 02/13/23 13:40 66 18 150/67 H 94 02/13/23 13:33 36.8 C 67 17 126/54 L 96 02/13/23 11:22 36.7 C 71 20 149/75 H 98 02/13/23 07:56 36.5 C 68 16 148/65 H 100 02/13/23 07:32 70 02/13/23 03:11 36.7 C 78 18 143/64 H 99 O2 Del Method 02/13/23 14:29 Room Air 02/13/23 14:00 Room Air 10/23/23 13:50 Room Air 02/13/23 13:40 Room Air 02/13/23 13:33 Room Air 02/13/23 11:22 Room Air 02/13/23 07:56 Room Air 02/13/23 07:32 02/13/23 03:11 Room Air (6) Coronary artery disease Associated angina: without angina Coronary Disease-Associated Artery/Lesion type: [place]well artery [place] vs. transplanted heart: cantwell heart Qualified Code(s): I25.10 - Atherosclerotic heart disease of cantwell coronary artery without angina pectoris (7) Atrial fibrillation Atrial fibrillation type: unspecified Qualified Code(s): I48.91 - Unspecified atrial fibrillation
[2023-02-13] MEDS ORDERED: Nursing to Pharmacy Communication SCH (16:00)
[2023-02-13] MEDS: HYDROCODONE/ACETAMOPHEN 5/325MG TAB PO PRN (17:31)
--- NOTE | 2023-02-13 19:20 | XRay Report ---
XR foot LT min 3V routine CLINICAL HISTORY: s/p left foot surgery COMPARISON: Left foot radiographs January 12, 2023. Left foot CT January 30, 2023. 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 No unexpected radiopaque foreign bodies are noted. Tarsometatarsal joints are intact. Othe rwise, the appearance of the left foot is unchanged. There is extensive vascular calcification. Moder ate mid foot osteoarthritis is noted as well as tibiotalar osteoarthritis. 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 ACT 112: Negative or not required by law. Electronically signed by: Dieudonne Roy M.D. 02/13/2023 7:18 PM
[2023-02-13] MEDS ORDERED: oxyCODONE HCL IR 5 MG TAB (IMMEDIATE RELEASE) PO STA (20:37)
[2023-02-13] MEDS: MIRTAZAPINE TAB 15 MG TAB PO SCH (21:20)
[2023-02-13] MEDS: AMIODARONE 200 MG TAB PO SCH (21:20)
[2023-02-13] MEDS: LORazepam 0.5 MG TAB PO PRN (21:37)
[2023-02-13] MEDS: ZOLPIDEM TARTRATE 5 MG TAB PO PRN (23:27)
[2023-02-14] MEDS: oxyCODONE HCL IR 5 MG TAB (IMMEDIATE RELEASE) PO PRN ×4 (03:29→21:46)
[2023-02-14] MEDS: AMPICILLIN 2,000 MG in 0.9 % SODIUM CHLORIDE 100 ML IV SCH ×2 (03:29→09:38)
[2023-02-14 07:58] LABS: Basophils # (auto) 0.02 K/uL (0.00-0.20); Basophils % (auto) 0.3 %; Eosinophils # (auto) 0.05 K/uL (0.00-0.50); Eosinophils % (auto) 0.6 %; Hematocrit (blood only) 33.4 % (42.0-52.0); Hemoglobin 11.1 g/dl (14.0-18.0); Immature Granulocytes # (auto) 0.06 K/uL (0.01-0.20); Immature Granulocytes % (auto) 0.8 %; Lymphocytes % (auto) 25.6 %; Mean Corpuscular Hgb Conc 33.2 g/dL (32.0-36.0); Mean Corpuscular Volume 93.3 fL (80.0-100.0); Mean Platelet Volume 8.8 fL (9.4-12.4); Monocytes # (auto) 0.86 K/uL (0.11-0.59); Neutrophils # (auto) 4.81 K/uL (1.40-6.50); Neutrophils % (auto) 61.7 %; Platelet Count 222 K/uL (130-400); RDW Coefficient of Variation 15.9 % (11.5-14.5); RDW Standard Deviation 54.2 fL (36.4-46.3); Red Blood Count 3.58 M/uL (4.70-6.10)
[2023-02-14 08:30] LABS: Albumin Globulin Ratio 1.3 (0.9-2); Bilirubin,Total 0.5 mg/dl (0.2-1.0); Calcium 8.3 mg/dl (8.6-10.3); Creatinine Clr Calc Pharmacy 50.2 ml/min; Est GFR (Non-African American) 50.9 ml/min; Globulin 2.4 gm/dl (2.5-4.0); Phosphorus 3.3 mg/dl (2.5-4.9); Potassium 3.8 mmol/L (3.5-5.1); Total Protein 5.4 gm/dl (6.0-8.3)
[2023-02-14 08:33] LABS: INR 1.3 (0.9-1.1); Prothrombin Time 13.8 Seconds (9.0-12.0)
[2023-02-14] MEDS: INSULIN ASPART PER UNIT CHARGE SC SCH ×4 (09:34→20:20)
[2023-02-14] MEDS: LANTUS PER UNIT CHARGE SC SCH (09:34)
[2023-02-14] MEDS: DOCUSATE SODIUM 100 MG CAP PO SCH ×2 (09:44→20:22)
[2023-02-14] MEDS: FUROSEMIDE 40 MG TAB PO SCH (09:45)
[2023-02-14] MEDS: MAGNESIUM OXIDE 400 MG TAB PO SCH (09:45)
[2023-02-14] MEDS: GABAPENTIN 300 MG CAP PO SCH ×3 (09:45→20:20)
[2023-02-14] MEDS: LORATADINE 10 MG TAB PO SCH (09:45)
[2023-02-14] MEDS: MULTIVITAMIN TAB PO SCH (09:46)
[2023-02-14] MEDS: METOPROLOL SUCC 25MG EXT REL TAB PO SCH (09:46)
[2023-02-14] MEDS: CALCIUM CITRATE 950 MG TAB PO SCH ×3 (12:26→20:20)
[2023-02-14] MEDS: AMPICILLIN 2,000 MG in SODIUM CHLOR 0.9% MINI-B 100 ML IV SCH ×4 (12:48→23:03)
--- NOTE | 2023-02-14 12:48 | Podiatry Consultation ---
Date of Consultation February 14, 2023 Assessment & Plan (1) Diabetic infection of left foot: At this point I do feel patient is stable to be discharged again per discussion he would like to return to [facility] on . I will arrange follow- up with him in my office on Monday he should also follow-up with the wound care center outpatient. He will remain nonweightbearing on the left foot I will change the dressing tomorrow and the dressing I placed will remain intact until Monday when he is seen in the office. Overall he is doing well cultures and pathology still pending. (2) PAD (peripheral artery disease): History of Present Illness Attending Physician: Katerine Foy MD History of Present Illness Patient is a very pleasant 87-year-old male seen at bedside today. Postop day #1. Date of surgery February 13, 2023. Status post left foot fifth toe amputation, fifth metatarsal resection, ray resection with ulcer debridement and TheraSkin application. All dressings removed incision inspected overall coloration of foot is stable dorsalis pedis pulse palpable, there was bloody strikethrough present on the postoperative dressings but incision itself is stable with all sutures intact graft in place. There is Adaptic overlying the graft which was adhered to the skin with suture. Patient will be nonweightbearing to the left foot after discussion with patient he feels comfortable being discharged on I am comfortable with that as well I feel at this point he can return to [facility] whenever he is comfortable and again after our discussion he feels that would be . He will have follow-up with me in the office on Monday for evaluation. He will continue to be nonweightbearing on that left foot. He will need follow-up made outpatient at the wound care center for continued evaluation. He will need antibiotics per infectious disease recommendations at this point all infected bone has likely been removed as I resected back proximal from where the ulceration was present likely deep cultures and pathology are still pending. Allergies Allergy/AdvReac Type Severity Reaction Status Date / Time Macrolide Antibiotics Allergy Unknown PER Verified 01/30/23 16:04 MEDICAL RECORD sildenafil Allergy Unknown SWELLING Verified 01/30/23 16:04 OF FACE AND HEAD streptomycin Allergy Unknown N/V Verified 01/30/23 16:04 sulfite Allergy Unknown THROAT Verified 01/30/23 16:04 SWELLING nitrofurantoin AdvReac Diarrhea Verified 01/30/23 16:04 VASODILATORS Allergy Unknown "PERIPHERAL Uncoded 01/30/23 16:04 DILATOR" swelling of face and head Home Medications Medication Instructions Recorded Confirmed Type amiodarone 200 mg tablet 200 mg PO QAM 01/02/18 01/30/23 History insulin glargine 100 unit/mL 8 units subcut BID 01/02/18 01/30/23 History subcutaneous solution loratadine 10 mg tablet 10 mg PO QAM 01/02/18 01/30/23 History magnesium oxide 400 mg (241.3 mg 400 mg PO QAM 01/02/18 01/30/23 History magnesium) tablet metoprolol succinate 25 mg 25 mg PO QAM 01/02/18 01/30/23 History tablet,extended release 24 hr zolpidem 5 mg tablet (Ambien) 5 mg PO HS 01/02/18 01/30/23 History gabapentin 300 mg capsule 300 mg PO TID 03/10/18 01/30/23 History docusate sodium 100 mg capsule 100 mg PO BID 04/27/22 01/30/23 History (Colace) hydrocodone 5 mg-acetaminophen 325 0.5 tab PO Q12H PRN pain,severe 04/27/22 1 History mg tablet mometasone 0.1 % topical solution 1 applic topical DAILY PRN Itching 04/27/22 01/30/23 History acetaminophen 325 mg capsule 650 mg PO QID PRN PAIN/FEVER 05/10/22 01/30/23 History furosemide 20 mg tablet 40 mg PO QAM 06/28/22 01/30/23 History bisacodyl 10 mg rectal suppository 10 mg MI DAILY PRN Constipation 12/01/22 01/30/23 History calcium carbonate 500 mg-vitamin 1 tab PO DAILY 12/01/22 01/30/23 History D3 5 mcg (200 unit) tablet (Oyster Shell Calcium-Vitamin D3) clotrimazole 1 % topical cream 1 applic topical UD 12/01/22 01/30/23 History lorazepam 0.5 mg tablet 0.5 mg PO DAILY PRN anxiety/sleep 12/01/22 01/30/23 History mirtazapine 30 mg tablet (Remeron) 30 mg PO DAILY 12/01/22 01/30/23 History multivit,stress formula-zinc tablet 1 tab PO DAILY 12/01/22 01/30/23 History vitamin A-vitamin C-vit E-min 1 tab PO DAILY 12/01/22 01/30/23 History tablet warfarin 1 mg tablet 1 - 2 mg PO UD 12/01/22 01/30/23 History Patient History Medical History Ambulatory dysfunction Atrial fibrillation Cerebrovascular disease Chronic systolic CHF (congestive heart failure) Compression fracture of L4 lumbar vertebra HX BROKEN BACK Coronary artery disease Diabetes mellitus type 2 with complications Diabetic neuropathy Dyslipidemia Berman catheter in place gets changed monthly Generalized OA Heart failure History of airway aspiration History of colon cancer HX COLON SURGERY History of hepatitis B History of melanoma HX MELANOMA, HX MULTIPLE SKIN CA & REMOVED History of Mohs micrographic surgery for skin cancer History of prostate cancer PROSTATECTOMY Hypertension Lumbar spinal stenosis Pacemaker "DUAL" - PT NOT SURE BRAND, PLACED D/T AFIB - [employer] PVD (peripheral vascular disease) Renal failure ? stage Surgical History H/O prostatectomy History of anesthesia reaction WITH TESTICULAR SURGERY, [facility] - INCREASED BP & HAD TO STAY OVERNIGHT History of cardiac cath years ago> [facility] - CHECKING FOR BLOCKAGE - NO STENTS History of colonoscopy MULTIPLE History of right hemicolectomy History of testicular surgery History of tonsillectomy and adenoidectomy Family History Mother Coronary heart disease Father Heart disease Social History Smoking Status: Never smoker Second Hand Exposure: No; Do You Dip or Chew Tobacco: No; Hx Alcohol Use: No Hx Substance Use: No Preferred Language: Ethiopian Communication Ability: Effective Hearing Ability: Hard of Hearing Telescope Maintenance Required: No Beliefs That Will Affect Care: None marital status: Single Current Living Situation: Alone Current Living Situation Comment: caregivers come to see him daily current occupational status: retired How many Children do You have: 0 Feels Safe at Home: Yes Diet: diabetic Diet Comment: Increased protein for healing per chart during the past year weight has: remained stable Assistive Devices: Hospital Bed, Scooter/Electric Scooter, Walker and Wheelchair Physical Exam Skin: All dressings removed incision evaluated no dehiscence of sutures graft still in place. Dressings reapplied consisting of Adaptic directly over graft with 4 x 4 gauze abdominal pads Curlex and Rey bandage. Pedal pulses noted to be palpable. Results & Data Vital Signs (Past 12 Hours) Vital Signs Temp Pulse Pulse Resp BP BP Pulse Ox 02/14/23 08:00 67 02/14/23 11:22 36.6 C 74 135/79 97 02/14/23 09:25 72 98 02/14/23 07:51 36.6 C 72 16 130/73 89 L 02/14/23 04:00 36.6 C 69 18 137/71 100 O2 Del Method 02/14/23 08:00 02/14/23 11:22 Room Air 02/14/23 09:25 Room Air 02/14/23 07:51 Room Air 02/14/23 04:00 Room Air
[2023-02-14] MEDS ORDERED: ENOXAPARIN 1 MG/KG SQ SCH (15:45)
[2023-02-14] MEDS: LACTATED RINGER'S 1,000 ML IV SCH (16:33)
--- NOTE | 2023-02-14 16:40 | Hospitalist Progress Note ---
Date of Service February 14, 2023 Assessment & Plan (1) Diabetic infection of left foot: (2) Chronic systolic heart failure: (3) CKD (chronic kidney disease), stage III: (4) Pacemaker: (5) Diabetes mellitus type 2 with complications: (6) Coronary artery disease: (7) Atrial fibrillation: Plan Mr. Thayer is an 87 year old male that presented to the ED per recommendations by wound clinic for evaluation of his non healing foot wound. He was seen in the setting of persistent non healing diabetic ulcers of the 5th metatarsal showing signs of tissue loss and tunneling. He has a history of PAD, CAD, atrial fibrillation on warfarin, diabetes with neuropathy and history of foot wounds. 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 Surface wound culture from admission showing pansensitive Enterococcus Patient was previously on empiric Dapto and Zosyn. Seen by ID who recommended IV ampicillin 2g (started on 02/03/2023) and strongly recommended bone biopsy. Bone biopsy and repeat/deep cultures done on 02/06 by podiatry-appreciate recs for discharge abx by both ID and podiatry -Bone biopsy pathology consistent with osteomyelitis -Bone and foot sample Cx from 02/06 growing corynebacterium and enterococcus faecalis sensitive to ampicillin, continue -Pt seen by orthopedics-recommending pt might benefit from fifth ray resection and probably a wound VAC -Advised by podiatry that plan is for fifth ray resection on 02/13, will require holding warfarin from Saturday 02/10. Warfarin was held and resumed on 02/14 with INR 1.3 the day after surgery. Lovenox Bridging ordered. POD #1 s/p Left Foot Fifth Ray Resection, ulcer debridement, appreciate podiatry recs Peripheral arterial occlusive disease status post angioplasty and stenting of left lower extremity by interventional cardiology on 02/02. Recommendations noted: -continue Plavix for 1 month and follow-up with vascular surgery in 2 weeks Anticoagulation with warfarin (see below) and Plavix Plavix held temporarily on day of surgery (02/13), resumed on 02/14 Paroxysmal atrial fibrillation Continue Amiodarone, metoprolol Home dose of Coumadin is 1 mg MWF and 2 mg rest of the week. Started on Coumadin 3 mg daily 02/03/2023. 3 mg of Coumadin held the evening of 02/09 in anticipation of surgery on 02/13 and resumed on 02/[address] Chronic CHF Last ECHO 02/11: LV function mildly reduced. LV wall thickness concentric. EF 45%. Grade I DDx. Lasix resumed, volume status stable. ALISSA on CKD III Chronic Berman Monitor renal function Avoid nephrotoxic agents as able, lasix resumed Currently wnl DM II with peripheral neuropathy HbA1C: 6.6 Continue Gabapentin Continue insulin per protocol Monitor BGs Diet: HH/DMII DVT Px: Coumadin resumed 02/14 Dispo: has [facility] HH services, will likely need placement if needs extended IV abx. Pt now considering [facility] Admission and Anticipated Discharge Date Admission Date: January 30, 2023 Subjective Seen in the AM with caregiver at bedside. Noted that he was thinking about being placed at [facility] but wants to go on . States occasionally having pain shooting up his leg. Otherwise denied acute concerns. Review of Systems Review of Systems: All systems reviewed & are unremarkable except as noted in Subjective Physical Exam Physical Exam: General: No acute distress Skin:Erythema on left leg Psych: Appropriate mood and affect Neuro: No gross deficits but limited exam HEENT: NC/AT Chest: Nontender to palpation. CV: RRR Resp: Breath sounds clear bilaterally, no increased effort of breathing. Abdomen: Soft, nontender Extremities: L leg more swollen then right, some erythema, foot with noted ulcer Results & Data Results & Data Vital Signs (Past 12 Hours) Vital Signs Temp Pulse Pulse Resp BP BP Pulse Ox 02/14/23 15:51 36.6 C 66 14 111/67 97 02/14/23 08:00 67 02/14/23 11:22 36.6 C 74 135/79 97 02/14/23 09:25 72 98 02/14/23 07:51 36.6 C 72 16 130/73 89 L O2 Del Method 02/14/23 15:51 Room Air 02/14/23 08:00 02/14/23 11:22 Room Air 02/14/23 09:25 Room Air 02/14/23 07:51 Room Air (6) Coronary artery disease Associated angina: without angina Coronary Disease-Associated Artery/Lesion type: [place] artery [place] vs. transplanted heart: [place] heart Qualified Code(s): I25.10 - Atherosclerotic heart disease of [place] coronary artery without angina pectoris (7) Atrial fibrillation Atrial fibrillation type: unspecified Qualified Code(s): I48.91 - Unspecified atrial fibrillation
[2023-02-14] MEDS: ENOXAPARIN 100 MG/1ML SYR SQ SCH (18:34)
[2023-02-14] MEDS: AMIODARONE 200 MG TAB PO SCH (20:19)
[2023-02-14] MEDS: WARFARIN SOD 3 MG TAB PO SCH (20:19)
[2023-02-14] MEDS: MIRTAZAPINE TAB 15 MG TAB PO SCH (20:20)
[2023-02-14] MEDS: LORazepam 0.5 MG TAB PO PRN (20:26)
[2023-02-14] MEDS ORDERED: CALCIUM CITRATE 950 MG TAB PO SCH (21:00)
[2023-02-14] MEDS: ZOLPIDEM TARTRATE 5 MG TAB PO PRN (23:03)
[2023-02-15] MEDS: ENOXAPARIN 100 MG/1ML SYR SQ SCH ×2 (03:26→16:28)
[2023-02-15] MEDS: AMPICILLIN 2,000 MG in SODIUM CHLOR 0.9% MINI-B 100 ML IV SCH ×2 (03:26→10:10)
[2023-02-15 06:24] LABS: Basophils # (auto) 0.02 K/uL (0.00-0.20); Basophils % (auto) 0.2 %; Eosinophils # (auto) 0.05 K/uL (0.00-0.50); Eosinophils % (auto) 0.6 %; Hematocrit (blood only) 31.5 % (42.0-52.0); Hemoglobin 10.8 g/dl (14.0-18.0); Immature Granulocytes # (auto) 0.05 K/uL (0.01-0.20); Immature Granulocytes % (auto) 0.6 %; Lymphocytes # (auto) 2.51 K/uL (1.20-3.40); Mean Corpuscular Hemoglobin 31.4 pg (25.0-34.0); Mean Corpuscular Hgb Conc 34.3 g/dL (32.0-36.0); Mean Corpuscular Volume 91.6 fL (80.0-100.0); Mean Platelet Volume 8.8 fL (9.4-12.4); Monocytes # (auto) 0.75 K/uL (0.11-0.59); Monocytes % (auto) 8.9 %; Neutrophils % (auto) 59.7 %; Platelet Count 239 K/uL (130-400); RDW Coefficient of Variation 15.9 % (11.5-14.5); RDW Standard Deviation 53.1 fL (36.4-46.3); Red Blood Count 3.44 M/uL (4.70-6.10); White Blood Count 8.38 K/ul (4.8-10.8)
[2023-02-15 06:33] LABS: Albumin Globulin Ratio 1.2 (0.9-2); Albumin Level 2.9 gm/dl (3.4-5.0); BUN Creatinine Ratio 16.6 (10-20); Bilirubin,Total 0.5 mg/dl (0.2-1.0); Creatinine Clr Calc Pharmacy 42.1 ml/min; Est GFR (African American) 47.4 ml/min; Est GFR (Non-African American) 40.9 ml/min; Globulin 2.4 gm/dl (2.5-4.0); Phosphorus 3.2 mg/dl (2.5-4.9); Potassium 3.8 mmol/L (3.5-5.1); Total Protein 5.3 gm/dl (6.0-8.3)
--- NOTE | 2023-02-15 07:11 | Hospitalist Progress Note ---
Date of Service February 15, 2023 Assessment & Plan (1) Diabetic infection of left foot: (2) Chronic systolic heart failure: (3) CKD (chronic kidney disease), stage III: (4) Pacemaker: (5) Diabetes mellitus type 2 with complications: (6) Coronary artery disease: (7) Atrial fibrillation: Plan Mr. Thayer is an 87 year old gentleman that presented to the ED on 01/30 per recommendations by wound clinic for evaluation of his non healing foot wound. He was seen in the setting of persistent non healing diabetic ulcers of the 5th metatarsal showing signs of tissue loss and tunneling. He has a history of PAD, CAD, atrial fibrillation on warfarin, diabetes with neuropathy and history of foot wounds. 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 Discussion with podiatry was had, ultimately confirmed clean margins. Contacted ID for further abx duration recommendations; however, noted diffuse rash c/w drug eruption across abdomen. 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 Surface wound culture from admission showing pansensitive Enterococcus Patient was previously on empiric Dapto and Zosyn. Seen by ID who recommended IV ampicillin 2g (started on 02/03/2023, d/c 02/15) Bone biopsy and repeat/deep cultures done on 02/06 by podiatry -Bone biopsy pathology consistent with osteomyelitis -Bone and foot sample Cx from 02/06 growing corynebacterium and enterococcus faecalis sensitive to ampicillin POD #2 s/p Left Foot Fifth Ray Resection, ulcer debridement, with plans for OP follow up with Podiatry on 02/20 assuming dispo -Discuss with ID further ABX given resection as well as MDE as above #Peripheral arterial occlusive disease status post angioplasty and stenting of left lower extremity by interventional cardiology on 02/02. Recommendations noted: -continue Plavix for 1 month and follow-up with vascular surgery in 2 weeks 03/03 EOT Anticoagulation with warfarin (see below) Continue Plavix #Paroxysmal atrial fibrillation Continue Amiodarone, metoprolol Home dose of Coumadin is 1 mg MWF and 2 mg rest of the week. INR daily, 3mg tonight Pacemaker in place #Chronic Heart Failure with Mildly Reduced EF Last ECHO 02/11: LV function mildly reduced. LV wall thickness concentric. EF 45%. Grade I DDx. Lasix held iso ALISSA -Resume as tolerated, consider reduced frequency #ALISSA on CKD III Chronic Berman Monitor renal function Avoid nephrotoxic agents as able Holding Lasix given ALISSA #DM II with peripheral neuropathy HbA1C: 6.6 Continue Gabapentin Continue insulin per protocol Monitor BGs Diet: HH/DMII DVT Px: Coumadin Dispo: has [facility] HH services, will likely need placement if needs extended IV abx. Pt now considering [facility] Admission and Anticipated Discharge Date Admission Date: January 30, 2023 Subjective NAEO Patient reports new pruritic rash across abdomen Denies any chest pain, palpitations, or other acute issues Review of Systems Review of Systems: All systems reviewed & are unremarkable except as noted in Subjective Physical Exam Constitutional: WD/WN, vitals as above Respiratory: normal respiratory effort, lungs clear to auscultation Cardiovascular: RRR, no murmur, no edema Gastrointestinal (Abdomen): normal bowel sounds, soft, nontender, no hepatosplenomegaly Skin: diffuse rash across chest/abdomen Results & Data Results & Data Vital Signs (Past 12 Hours) Vital Signs Temp Pulse Pulse Resp BP Pulse Ox O2 Del Method 02/15/23 03:05 36.7 C 70 18 135/66 98 Room Air 02/15/23 00:09 60 02/14/23 23:13 36.5 C 70 18 144/69 H 97 Room Air 02/14/23 22:08 Room Air 02/14/23 19:48 36.9 C 60 18 114/62 95 Room Air Laboratory Results Short CBC 02/14/23 02/15/23 Range/Units 07:35 06:00 WBC 7.80 8.38 (4.8-10.8) K/ul Hgb 11.1 L 10.8 L (14.0-18.0) g/dl Hct 33.4 L 31.5 L (42.0-52.0) % Plt Count 222 239 (130-400) K/uL BMP 02/14/23 02/15/23 07:35 06:00 Sodium 137 138 Potassium 3.8 3.8 Chloride 100 102 Carbon Dioxide 34 H 31 BUN 24 H 25 H Creatinine 1.26 1.51 H Glucose 121 H 128 H Calcium 8.3 L 8.0 L Liver Function 02/14/23 02/15/23 Range/Units 07:35 06:00 Total Bilirubin 0.5 0.5 (0.2-1.0) mg/dl AST 21 17 (13-39) U/L ALT 20 16 (7-52) U/L Alkaline Phosphatase 71 70 (34-104) U/L Albumin 3.0 L 2.9 L (3.4-5.0) gm/dl Medications Administered Home Medications Medication Instructions Recorded Confirmed Last Taken amiodarone 200 mg tablet 200 mg PO QAM 01/02/18 01/30/23 12/06/22 insulin glargine 100 unit/mL 8 units subcut BID 01/02/18 01/30/23 05/12/22 subcutaneous solution loratadine 10 mg tablet 10 mg PO [facility] 01/02/18 01/30/23 12/06/22 magnesium oxide 400 mg (241.3 mg 400 mg PO [facility] 01/02/18 01/30/23 12/06/22 magnesium) tablet metoprolol succinate 25 mg 25 mg PO [facility] 01/02/18 01/30/23 12/06/22 tablet,extended release 24 hr zolpidem 5 mg tablet (Ambien) 5 mg PO HS 01/02/18 01/30/23 12/06/22 gabapentin 300 mg capsule 300 mg PO TID 03/10/18 01/30/23 12/06/22 docusate sodium 100 mg capsule 100 mg PO BID 04/27/22 01/30/23 12/06/22 (Colace) hydrocodone 5 mg-acetaminophen 325 0.5 tab PO Q12H PRN pain,severe 04/27/22 01/30/23 Unknown mg tablet mometasone 0.1 % topical solution 1 applic topical DAILY PRN Itching 04/27/22 01/30/23 Unknown acetaminophen 325 mg capsule 650 mg PO QID PRN PAIN/FEVER 05/10/22 01/30/2305/12/23 09:57 furosemide 20 mg tablet 40 mg PO QAM 06/28/22 01/30/23 12/06/22 bisacodyl 10 mg rectal suppository 10 mg [place] DAILY PRN Constipation 12/01/22 01/30/23 Unknown calcium carbonate 500 mg-vitamin 1 tab PO DAILY 12/01/22 01/30/23 12/06/22 D3 5 mcg (200 unit) tablet (Oyster Shell Calcium-Vitamin D3) clotrimazole 1 % topical cream 1 applic topical UD 12/01/22 01/30/23 12/06/22 lorazepam 0.5 mg tablet 0.5 mg PO DAILY PRN anxiety/sleep 12/01/22 01/30/23 Unknown mirtazapine 30 mg tablet (Remeron) 30 mg PO DAILY 12/01/22 01/30/23 12/06/22 multivit,stress formula-zinc tablet 1 tab PO DAILY 12/01/22 01/30/23 12/06/22 vitamin A-vitamin C-vit E-min 1 tab PO DAILY 12/01/22 01/30/23 12/06/22 tablet warfarin 1 mg tablet 1 - 2 mg PO UD 12/01/22 01/30/23 12/06/22 Active Medications Generic Name Dose Route Start Last Admin Trade Name Yonathan PRN Reason Stop Dose Admin Acetaminophen 650 mg 01/30/23 18:57 02/10/23 11:50 Acetaminophen 325 Mg Tab PO 03/01/23 18:56 650 mg Q4H PRN Administration Pain or Fever Amiodarone HCl 200 mg 01/31/23 21:00 02/14/23 20:19 Amiodarone 200 Mg Tab PO 03/02/23 20:59 200 mg QPM ABIODUN Administration Calcium Citrate 950 mg 02/14/23 11:25 02/14/23 20:20 Calcium Citrate 950 Mg Tab PO 03/16/23 11:24 950 mg BID ABIODUN Administration Clopidogrel Bisulfate 75 mg 02/03/23 09:00 02/12/23 09:37 Clopidogrel Bisulfate 75 Mg Tab PO 03/05/23 08:59 75 mg QAM ABIODUN Administration Docusate Sodium 100 mg 01/31/23 16:30 02/14/23 20:22 Docusate Sodium 100 Mg Cap PO 03/02/23 16:29 100 mg BID ABIODUN Administration Enoxaparin Sodium 100 mg 02/14/23 16:00 02/15/23 03:26 Enoxaparin 100 Mg/1ml Syr SQ 03/16/23 15:59 100 mg Q12H ABIODUN Administration Furosemide 40 mg 01/31/23 09:00 02/14/23 09:45 Furosemide 40 Mg Tab PO 03/02/23 08:59 40 mg QAM ABIODUN Administration Gabapentin 300 mg 01/30/23 21:00 02/14/23 20:20 Gabapentin 300 Mg Cap PO 03/01/23 20:59 300 mg TID ABIODUN Administration Lactated Ringer's 1,000 mls @ 15 mls/hr 02/13/23 12:15 02/14/23 16:33 Lr IV 03/15/23 12:14 Not Given .Q24H ABIODUN Ampicillin Sodium 2,000 mg/ 100 mls @ 200 mls/hr 02/14/23 12:00 02/15/23 04:02 Sodium Chloride IV 03/17/23 23:59 Infused Q4H ABIODUN Infusion Insulin Aspart 0 units 02/13/23 16:30 02/14/23 20:20 Insulin Aspart Per Unit Charge SC 03/15/23 16:29 Not Given [facility] Insulin Glargine 5 units 02/01/23 09:00 02/14/23 09:34 Lantus Per Unit Charge SC 03/03/23 08:59 5 units QAM ABIODUN Administration Loratadine 10 mg 01/31/23 09:00 02/14/23 09:45 Loratadine 10 Mg Tab PO 03/02/23 08:59 10 mg QAM ABIODUN Administration Lorazepam 0.5 mg 01/30/23 19:52 02/14/23 20:26 Lorazepam 0.5 Mg Tab PO 03/01/23 19:51 0.5 mg DAILY PRN Administration anxiety/sleep Magnesium Oxide 400 mg 01/31/23 09:00 02/14/23 09:45 Magnesium Oxide 400 Mg Tab PO 03/02/23 08:59 400 mg QAM ABIODUN Administration Metoprolol Succinate 25 mg 01/31/23 09:00 02/14/23 09:46 Metoprolol Succ 25mg Ext Rel Tab PO 03/02/23 08:59 25 mg QAM ABIODUN Administration Mirtazapine 30 mg 01/30/23 21:00 02/14/23 20:20 Mirtazapine Tab 15 Mg Tab PO 03/01/23 20:59 30 mg HS ABIODUN Administration Multivitamins 1 tab 01/31/23 16:30 02/14/23 09:46 Multivitamin Tab PO 03/02/23 16:29 1 tab QAM ABIODUN Administration Oxycodone HCl 5 mg 02/13/23 20:37 02/14/23 21:46 Oxycodone Hcl Ir 5 Mg Tab (Immediate Release) PO 02/27/23 20:36 5 mg Q4H PRN Administration Pain Polyethylene Glycol 17 gm 01/30/23 18:57 02/04/23 09:06 Polyethylene (Miralax) 17 Gm Pack PO 03/01/23 18:56 17 gm DAILY PRN Administration Constipation Warfarin Sodium 3 mg 02/03/23 16:00 02/14/23 20:19 Warfarin Sod 3 Mg Tab PO 03/05/23 15:59 3 mg DAILY@1600 ABIODUN Administration Zolpidem Tartrate 5 mg 01/30/23 20:35 02/14/23 23:03 Zolpidem Tartrate 5 Mg Tab PO 03/01/23 20:59 5 mg HS PRN Administration Insomnia (6) Coronary artery disease Associated angina: without angina Coronary Disease-Associated Artery/Lesion type: [place] artery [place] vs. transplanted heart: [place] heart Qualified Code(s): I25.10 - Atherosclerotic heart disease of [place] coronary artery without angina pectoris (7) Atrial fibrillation Atrial fibrillation type: unspecified Qualified Code(s): I48.91 - Unspecified atrial fibrillation
[2023-02-15] MEDS: INSULIN ASPART PER UNIT CHARGE SC SCH ×4 (10:03→21:49)
[2023-02-15] MEDS: MULTIVITAMIN TAB PO SCH (10:18)
[2023-02-15] MEDS: METOPROLOL SUCC 25MG EXT REL TAB PO SCH (10:18)
[2023-02-15] MEDS: CALCIUM CITRATE 950 MG TAB PO SCH ×2 (10:18→21:47)
[2023-02-15] MEDS: MAGNESIUM OXIDE 400 MG TAB PO SCH (10:18)
[2023-02-15] MEDS: LORATADINE 10 MG TAB PO SCH (10:18)
[2023-02-15] MEDS: GABAPENTIN 300 MG CAP PO SCH ×3 (10:18→21:47)
[2023-02-15] MEDS: DOCUSATE SODIUM 100 MG CAP PO SCH ×2 (10:24→21:54)
[2023-02-15] MEDS: LANTUS PER UNIT CHARGE SC SCH (10:25)
[2023-02-15] MEDS ORDERED: diphenhydrAMINE 50 MG/ML VIAL IV STA (11:12)
[2023-02-15] MEDS: CLOPIDOGREL BISULFATE 75 MG TAB PO SCH (12:08)
--- NOTE | 2023-02-15 12:25 | Podiatry Consultation ---
Date of Consultation February 15, 2023 Assessment & Plan (1) Diabetic infection of left foot: Patient would like to if possible be discharged tomorrow to [facility] again I have already arranged follow-up in my office on February 20. Again I would like the dressing to remain in place until I see him on Monday I would asked that they not change the dressing at [facility] will continue nonweightbearing to the left foot. (2) PAD (peripheral artery disease): History of Present Illness Attending Physician: Hailey Hunt MD History of Present Illness Patient is a very pleasant 87-year-old male seen at bedside today. Postop day #2. Date of surgery February 13 2023 Patient seen at bedside today all dressings were removed incision evaluated, sutures intact with no dehiscence graft in place foot is warm and dry dorsalis pedis pulse palpable coloration stable. There was very little strikethrough or bloody dressing present on the dressings were removed today. I still recommend patient be nonweightbearing to the left foot may use right foot for transitions. Additionally I recommend for dressings to remain in place will follow-up with me postop in office on February 20 at 1 PM for evaluation and dressing change. Patient should also have outpatient follow-up set up with the wound care center as well. We will defer any recommendations for antibiotics per infectious disease recommendations although all infected bone was removed with clear margins noted on bone was sent to pathology for permanent specimen and deep cultures were obtained. Allergies Allergy/AdvReac Type Severity Reaction Status Date / Time Macrolide Antibiotics Allergy Unknown PER Verified 01/30/23 16:04 MEDICAL RECORD sildenafil Allergy Unknown SWELLING Verified 01/30/23 16:04 OF FACE AND HEAD streptomycin Allergy Unknown N/V Verified 01/30/23 16:04 sulfite Allergy Unknown THROAT Verified 01/30/23 16:04 SWELLING nitrofurantoin AdvReac Diarrhea Verified 01/30/23 16:04 VASODILATORS Allergy Unknown "PERIPHERAL Uncoded 01/30/23 16:04 DILATOR" swelling of face and head Home Medications Medication Instructions Recorded Confirmed Type amiodarone 200 mg tablet 200 mg PO QAM 01/02/18 01/30/23 History insulin glargine 100 unit/mL 8 units subcut BID 01/02/18 01/30/23 History subcutaneous solution loratadine 10 mg tablet 10 mg PO QAM 01/02/18 01/30/23 History magnesium oxide 400 mg (241.3 mg 400 mg PO QAM 01/02/18 01/30/23 History magnesium) tablet metoprolol succinate 25 mg 25 mg PO QAM 01/02/18 01/30/23 History tablet,extended release 24 hr zolpidem 5 mg tablet (Ambien) 5 mg PO HS 01/02/18 01/30/23 History gabapentin 300 mg capsule 300 mg PO TID 03/10/18 01/30/23 History docusate sodium 100 mg capsule 100 mg PO BID 04/27/22 01/30/23 History (Colace) hydrocodone 5 mg-acetaminophen 325 0.5 tab PO Q12H PRN pain,severe 04/27/22 01/30/23 History mg tablet mometasone 0.1 % topical solution 1 applic topical DAILY PRN Itching 04/27/22 01/30/23 History acetaminophen 325 mg capsule 650 mg PO QID PRN PAIN/FEVER 05/10/22 01/30/23 History furosemide 20 mg tablet 40 mg PO QAM 06/28/22 01/30/23 History bisacodyl 10 mg rectal suppository 10 mg [place] DAILY PRN Constipation 12/01/22 01/30/23 History calcium carbonate 500 mg-vitamin 1 tab PO DAILY 12/01/22 01/30/23 History D3 5 mcg (200 unit) tablet (Oyster Shell Calcium-Vitamin D3) clotrimazole 1 % topical cream 1 applic topical UD 12/01/22 01/30/23 History lorazepam 0.5 mg tablet 0.5 mg PO DAILY PRN anxiety/sleep 12/01/22 01/30/23 History mirtazapine 30 mg tablet (Remeron) 30 mg PO DAILY 12/01/22 01/30/23 History multivit,stress formula-zinc tablet 1 tab PO DAILY 12/01/22 01/30/23 History vitamin A-vitamin C-vit E-min 1 tab PO DAILY 12/01/22 01/30/23 History tablet warfarin 1 mg tablet 1 - 2 mg PO UD 12/01/22 01/30/23 History Patient History Medical History Ambulatory dysfunction Atrial fibrillation Cerebrovascular disease Chronic systolic CHF (congestive heart failure) Compression fracture of L4 lumbar vertebra HX BROKEN BACK Coronary artery disease Diabetes mellitus type 2 with complications Diabetic neuropathy Dyslipidemia Berman catheter in place gets changed monthly Generalized OA Heart failure History of airway aspiration History of colon cancer HX COLON SURGERY History of hepatitis B History of melanoma HX MELANOMA, HX MULTIPLE SKIN CA & REMOVED History of Mohs micrographic surgery for skin cancer History of prostate cancer PROSTATECTOMY Hypertension Lumbar spinal stenosis Pacemaker "DUAL" - PT NOT SURE BRAND, PLACED D/T AFIB - GEROBINSON EMERSONAbbi ZAMORANO PVD (peripheral vascular disease) Renal failure ? stage Surgical History H/O prostatectomy History of anesthesia reaction WITH TESTICULAR SURGERY, [facility] - INCREASED BP & HAD TO STAY OVERNIGHT History of cardiac cath years ago> [facility] - CHECKING FOR BLOCKAGE - NO STENTS History of colonoscopy MULTIPLE History of right hemicolectomy History of testicular surgery History of tonsillectomy and adenoidectomy Family History Mother Coronary heart disease Father Heart disease Social History Smoking Status: Never smoker Second Hand Exposure: No; Do You Dip or Chew Tobacco: No; Hx Alcohol Use: No Hx Substance Use: No Preferred Language: Lithuanian Communication Ability: Effective Hearing Ability: Hard of Hearing Program Production 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 Required: No Beliefs That Will Affect Care: None marital status: Single Current Living Situation: Alone Current Living Situation Comment: caregivers come to see him daily current occupational status: retired How many Children do You have: 0 Feels Safe at Home: Yes Diet: diabetic Diet Comment: Increased protein for healing per chart during the past year weight has: remained stable Assistive Devices: Hospital Bed, Scooter/Electric Scooter, Walker and Wheelchair Physical Exam Skin: All dressings removed incision evaluated, dressings were applied consisting of Adaptic over graft and incision with 4 x 4 gauze Curlex abdominal pads and an Rey bandage. Results & Data Vital Signs (Past 12 Hours) Vital Signs Temp Pulse Pulse Resp BP Pulse Ox O2 Del Method 02/15/23 08:39 36.3 C L 76 18 132/55 L 100 Room Air 02/15/23 07:48 65 02/15/23 03:05 36.7 C 70 18 135/66 98 Room Air
[2023-02-15 13:17] LABS: INR 1.2 (0.9-1.1); Prothrombin Time 13.3 Seconds (9.0-12.0)
[2023-02-15] MEDS: oxyCODONE HCL IR 5 MG TAB (IMMEDIATE RELEASE) PO PRN ×2 (14:11→21:54)
[2023-02-15] MEDS: HYDROCORTISONE 2.5% CR 30 GM TUBE EXT SCH ×2 (14:11→21:48)
[2023-02-15] MEDS: WARFARIN SOD 3 MG TAB PO SCH (16:27)
[2023-02-15] MEDS ORDERED: VANCOMYCIN CONSULT ACTIVE PRN (20:00)
[2023-02-15] MEDS ORDERED: VANCOMYCIN HCL 2,000 MG in SODIUM CHLORIDE 0.9% 500 ML IV ONE (21:00)
[2023-02-15] MEDS: MIRTAZAPINE TAB 15 MG TAB PO SCH (21:47)
[2023-02-15] MEDS: AMIODARONE 200 MG TAB PO SCH (21:48)
[2023-02-15] MEDS: LORazepam 0.5 MG TAB PO PRN (21:54)
[2023-02-15] MEDS: ZOLPIDEM TARTRATE 5 MG TAB PO PRN (23:39)
[2023-02-16] MEDS: ENOXAPARIN 100 MG/1ML SYR SQ SCH ×2 (04:32→16:47)
[2023-02-16 07:18] LABS: Hematocrit (blood only) 29.3 % (42.0-52.0); Mean Corpuscular Hemoglobin 31.2 pg (25.0-34.0); Mean Corpuscular Hgb Conc 34.1 g/dL (32.0-36.0); Mean Corpuscular Volume 91.3 fL (80.0-100.0); Mean Platelet Volume 9.4 fL (9.4-12.4); Platelet Count 238 K/uL (130-400); RDW Coefficient of Variation 15.8 % (11.5-14.5); RDW Standard Deviation 52.4 fL (36.4-46.3); Red Blood Count 3.21 M/uL (4.70-6.10); White Blood Count 6.33 K/ul (4.8-10.8)
[2023-02-16 07:42] LABS: BUN Creatinine Ratio 20.3 (10-20); Calcium 7.8 mg/dl (8.6-10.3); Creatinine Clr Calc Pharmacy 51.7 ml/min; Est GFR (African American) 60.8 ml/min; Est GFR (Non-African American) 52.5 ml/min; Magnesium 1.9 mg/dl (1.7-2.4); Phosphorus 2.6 mg/dl (2.5-4.9); Potassium 3.6 mmol/L (3.5-5.1)
[2023-02-16 07:58] LABS: INR 1.4 (0.9-1.1); Prothrombin Time 14.7 Seconds (9.0-12.0)
--- NOTE | 2023-02-16 09:19 | Pharmacy Report ---
Pharmacy PK ABX Note - Date of Service February 16, 2023 - Assessment and Plan Assessment 87 year old M on day # 18 of hospitalization for infected diabetic left foot with osteomyelitis. ID consulted. s/p bone biopsy and repeat/deep cultures on 02/06 by podiatry -Bone biopsy pathology consistent with osteomyelitis -Bone and foot sample Cx from 02/06 growing corynebacterium and enterococcus faecalis sensitive to ampicillin s/p Left Foot Fifth Ray Resection, ulcer debridement on 02/13 Treated with ampicillin 02/03 - 02/15. Ampicillin discontinued due to new pruritic eruption on abdomen. Ordered vancomycin IV in the meantime until antibiotic regimen can be further discussed with ID service. Plan Vancomycin * Loading dose: 2000 mg IV x 1 * Maintenance dose: 1250 mg IV every 24 hours * Regimen is predicted to achieve target AUC/OSMAN of 400-600 mg/L.hr * Drug level will be obtained if continued beyond 48 hours or sooner pending ID eval/discharge plans. Pharmacy will continue to follow and will adjust dose/frequency as necessary. Thank you.
[2023-02-16] MEDS: INSULIN ASPART PER UNIT CHARGE SC SCH ×4 (09:52→20:08)
[2023-02-16] MEDS: LANTUS PER UNIT CHARGE SC SCH (09:53)
[2023-02-16] MEDS: CALCIUM CITRATE 950 MG TAB PO SCH ×2 (10:06→20:08)
[2023-02-16] MEDS: LORATADINE 10 MG TAB PO SCH (10:07)
[2023-02-16] MEDS: METOPROLOL SUCC 25MG EXT REL TAB PO SCH (10:07)
[2023-02-16] MEDS: GABAPENTIN 300 MG CAP PO SCH ×3 (10:07→20:08)
[2023-02-16] MEDS: CLOPIDOGREL BISULFATE 75 MG TAB PO SCH (10:08)
[2023-02-16] MEDS: MULTIVITAMIN TAB PO SCH (10:08)
[2023-02-16] MEDS: HYDROCORTISONE 2.5% CR 30 GM TUBE EXT SCH ×3 (10:08→20:09)
[2023-02-16] MEDS: MAGNESIUM OXIDE 400 MG TAB PO SCH (10:08)
[2023-02-16] MEDS: DOCUSATE SODIUM 100 MG CAP PO SCH ×2 (10:15→20:08)
--- NOTE | 2023-02-16 14:11 | Hospitalist Progress Note ---
Date of Service February 16, 2023 Assessment & Plan (1) Diabetic infection of left foot: (2) Chronic systolic heart failure: (3) CKD (chronic kidney disease), stage III: (4) Pacemaker: (5) Diabetes mellitus type 2 with complications: (6) Coronary artery disease: (7) Atrial fibrillation: Plan Mr. Thayer is an 87 year old gentleman that presented to the ED on 01/30 per recommendations by wound clinic for evaluation of his non healing foot wound. He was seen in the setting of persistent non healing diabetic ulcers of the 5th metatarsal showing signs of tissue loss and tunneling. He has a history of PAD, CAD, atrial fibrillation on warfarin, diabetes with neuropathy and history of foot wounds. 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 Discussion with podiatry was had, ultimately confirmed clean margins. Contacted ID for further abx duration recommendations; however, noted diffuse rash c/w drug eruption across abdomen. 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 Surface wound culture from admission showing pansensitive Enterococcus Patient was previously on empiric Dapto and Zosyn. Seen by ID who recommended IV ampicillin 2g (started on 02/03/2023, d/c 02/15) Bone biopsy and repeat/deep cultures done on 02/06 by podiatry -Bone biopsy pathology consistent with osteomyelitis -Bone and foot sample Cx from 02/06 growing corynebacterium and enterococcus faecalis sensitive to ampicillin POD #3 s/p Left Foot Fifth Ray Resection, ulcer debridement, with plans for OP follow up with Podiatry on 02/20 assuming dispo -Continue Vancomycin EOT 02/22 #Peripheral arterial occlusive disease status post angioplasty and stenting of left lower extremity by interventional cardiology on 02/02. Recommendations noted: -continue Plavix for 1 month and follow-up with vascular surgery in 2 weeks 03/03 EOT Anticoagulation with warfarin (see below) Continue Plavix #Paroxysmal atrial fibrillation Continue Amiodarone, metoprolol Home dose of Coumadin is 1 mg MWF and 2 mg rest of the week. INR daily, 3mg tonight Pacemaker in place #Chronic Heart Failure with Mildly Reduced EF Last ECHO 02/11: LV function mildly reduced. LV wall thickness concentric. EF 45%. Grade I DDx. Lasix held iso ALISSA -Trial lasix 10mg in am #ALISSA on CKD III Chronic Berman Monitor renal function Avoid nephrotoxic agents as able Trial lasix 10mg in am #DM II with peripheral neuropathy HbA1C: 6.6 Continue Gabapentin Continue insulin per protocol Monitor BGs Diet: HH/DMII DVT Px: Coumadin Dispo: has [facility] HH services, will likely need placement if needs extended IV abx. Pending authorization Admission and Anticipated Discharge Date Admission Date: January 30, 2023 Subjective NAEO Rash across abdomen notably improved, less pruritic Upset for delay in discharge Review of Systems Review of Systems: All systems reviewed & are unremarkable except as noted in Subjective Physical Exam Constitutional: WD/WN, vitals as above Respiratory: normal respiratory effort, lungs clear to auscultation Cardiovascular: RRR, no murmur, no edema Skin: near resolution of red maculopapular rash across torso Results & Data Results & Data Vital Signs (Past 12 Hours) Vital Signs Temp Pulse Pulse Resp BP BP Pulse Ox 02/16/23 11:51 36.4 C L 66 18 113/52 L 95 02/16/23 07:31 68 02/16/23 07:23 36.6 C 65 18 134/61 95 02/16/23 04:06 36.7 C 71 16 138/68 97 O2 Del Method 02/16/23 11:51 Room Air 02/16/23 07:31 02/16/23 07:23 Room Air 02/16/23 04:06 Room Air Laboratory Results Short CBC 02/16/23 Range/Units 05:58 WBC 6.33 (4.8-10.8) K/ul Hgb 10.0 L (14.0-18.0) g/dl Hct 29.3 L (42.0-52.0) % Plt Count 238 (130-400) K/uL BMP 02/16/23 05:58 Sodium 137 Potassium 3.6 Chloride 102 Carbon Dioxide 30 BUN 25 H Creatinine 1.23 Glucose 101 H Calcium 7.8 L Medications Administered Home Medications Medication Instructions Recorded Confirmed Last Taken amiodarone 200 mg tablet 200 mg PO QAM 01/02/18 01/30/23 12/06/22 insulin glargine 100 unit/mL 8 units subcut BID 01/02/18 01/30/23 05/12/22 subcutaneous solution loratadine 10 mg tablet 10 mg PO QAM 01/02/18 01/30/23 12/06/22 magnesium oxide 400 mg (241.3 mg 400 mg PO QAM 01/02/18 01/30/23 12/06/22 magnesium) tablet metoprolol succinate 25 mg 25 mg PO QAM 01/02/18 01/30/23 12/06/22 tablet,extended release 24 hr zolpidem 5 mg tablet (Ambien) 5 mg PO HS 01/02/18 01/30/23 12/06/22 gabapentin 300 mg capsule 300 mg PO TID 03/10/18 01/30/23 12/06/22 docusate sodium 100 mg capsule 100 mg PO BID 04/27/22 01/30/23 12/06/22 (Colace) hydrocodone 5 mg-acetaminophen 325 0.5 tab PO Q12H PRN pain,severe 04/27/22 01/30/23 Unknown mg tablet mometasone 0.1 % topical solution 1 applic topical DAILY PRN Itching 04/27/22 01/30/23 Unknown acetaminophen 325 mg capsule 650 mg PO QID PRN PAIN/FEVER 05/10/22 01/30/23 05/12/22 09:57 furosemide 20 mg tablet 40 mg PO QAM 06/28/22 01/30/23 12/06/22 bisacodyl 10 mg rectal suppository 10 mg NV DAILY PRN Constipation 12/01/22 01/30/23 Unknown calcium carbonate 500 mg-vitamin 1 tab PO DAILY 12/01/22 01/30/23 12/06/22 D3 5 mcg (200 unit) tablet (Oyster [place] Calcium-Vitamin D3) clotrimazole 1 % topical cream 1 applic topical UD 12/01/22 01/30/23 12/06/22 lorazepam 0.5 mg tablet 0.5 mg PO DAILY PRN anxiety/sleep 12/01/22 01/30/23 Unknown mirtazapine 30 mg tablet (Remeron) 30 mg PO DAILY 12/01/22 01/30/23 12/06/22 multivit,stress formula-zinc tablet 1 tab PO DAILY 12/01/22 01/30/23 12/06/22 vitamin A-vitamin C-vit E-min 1 tab PO DAILY 12/01/22 01/30/23 12/06/22 tablet warfarin 1 mg tablet 1 - 2 mg PO UD 12/01/22 01/30/23 12/06/22 Active Medications Generic Name Dose Route Start Last Admin Trade Name Freq PRN Reason Stop Dose Admin Acetaminophen 650 mg 01/30/23 18:57 02/10/23 11:50 Acetaminophen 325 Mg Tab PO 03/01/23 18:56 650 mg Q4H PRN Administration Pain or Fever Amiodarone HCl 200 mg 01/31/23 21:00 02/15/23 21:48 Amiodarone 200 Mg Tab PO 03/02/23 20:59 200 mg QPM ABIODUN Administration Calcium Citrate 950 mg 02/14/23 11:25 02/16/23 10:06 Calcium Citrate 950 Mg Tab PO 03/16/23 11:24 950 mg BID ABIODUN Administration Clopidogrel Bisulfate 75 mg 02/03/23 09:00 02/16/23 10:08 Clopidogrel Bisulfate 75 Mg Tab PO 03/05/23 08:59 75 mg QAM ABIODUN Administration Docusate Sodium 100 mg 01/31/23 16:30 02/16/23 10:15 Docusate Sodium 100 Mg Cap PO 03/02/23 16:29 100 mg BID ABIODUN Administration Enoxaparin Sodium 100 mg 02/14/23 16:00 02/16/23 04:32 Enoxaparin 100 Mg/1ml Syr SQ 03/16/23 15:59 100 mg Q12H ABIODUN Administration Furosemide 40 mg 01/31/23 09:00 02/14/23 09:45 Furosemide 40 Mg Tab PO 03/02/23 08:59 40 mg QAM ABIODUN Administration Gabapentin 300 mg 01/30/23 21:00 02/16/23 13:16 Gabapentin 300 Mg Cap PO 03/01/23 20:59 300 mg TID ABIODUN Administration Hydrocortisone 1 appln 02/15/23 14:00 02/16/23 13:16 Hydrocortisone 2.5% Cr 30 Gm Tube EXT 03/17/23 13:59 1 appln TID ABIODUN Administration Insulin Aspart 0 units 02/13/23 16:30 02/16/23 13:12 Insulin Aspart Per Unit Charge SC 03/15/23 16:29 6 units ACHS ABIODUN Administration Insulin Glargine 5 units 02/01/23 09:00 02/16/23 09:53 Lantus Per Unit Charge SC 03/03/23 08:59 5 units QAM ABIODUN Administration Loratadine 10 mg 01/31/23 09:00 02/16/23 10:07 Loratadine 10 Mg Tab PO 03/02/23 08:59 10 mg QAM ABIODUN Administration Lorazepam 0.5 mg 01/30/23 19:52 02/15/23 21:54 Lorazepam 0.5 Mg Tab PO 03/01/23 19:51 0.5 mg DAILY PRN Administration anxiety/sleep Magnesium Oxide 400 mg 01/31/23 09:00 02/16/23 10:08 Magnesium Oxide 400 Mg Tab PO 03/02/23 08:59 400 mg QAM ABIODUN Administration Metoprolol Succinate 25 mg 01/31/23 09:00 02/16/23 10:07 Metoprolol Succ 25mg Ext Rel Tab PO 03/02/23 08:59 25 mg QAM ABIODUN Administration Mirtazapine 30 mg 01/30/23 21:00 02/15/23 21:47 Mirtazapine Tab 15 Mg Tab PO 03/01/23 20:59 30 mg HS ABIODUN Administration Multivitamins 1 tab 01/31/23 16:30 02/16/23 10:08 Multivitamin Tab PO 03/02/23 16:29 1 tab QAM ABIODUN Administration Oxycodone HCl 5 mg 02/13/23 20:37 02/15/23 21:54 Oxycodone Hcl Ir 5 Mg Tab (Immediate Release) PO 02/27/23 20:36 5 mg Q4H PRN Administration Pain Polyethylene Glycol 17 gm 01/30/23 18:57 02/04/23 09:06 Polyethylene (Miralax) 17 Gm Pack PO 03/01/23 18:56 17 gm DAILY PRN Administration Constipation Warfarin Sodium 3 mg 02/03/23 16:00 02/15/23 16:27 Warfarin Sod 3 Mg Tab PO 03/05/23 15:59 3 mg DAILY@1600 ABIODUN Administration Zolpidem Tartrate 5 mg 01/30/23 20:35 02/15/23 23:39 Zolpidem Tartrate 5 Mg Tab PO 03/01/23 20:59 5 mg HS PRN Administration Insomnia (6) Coronary artery disease Coronary Disease-Associated Artery/Lesion type: [place] artery [place] vs. transplanted heart: [place] heart Associated angina: without angina Qualified Code(s): I25.10 - Atherosclerotic heart disease of [place] coronary artery without angina pectoris (7) Atrial fibrillation Atrial fibrillation type: unspecified Qualified Code(s): I48.91 - Unspecified atrial fibrillation
[2023-02-16] MEDS: WARFARIN SOD 3 MG TAB PO SCH (16:48)
[2023-02-16] MEDS ORDERED: VANCOMYCIN HCL 1,250 MG in SODIUM CHLORIDE 0.9% 250 ML IV SCH (18:00)
[2023-02-16] MEDS: AMIODARONE 200 MG TAB PO SCH (20:08)
[2023-02-16] MEDS: LORazepam 0.5 MG TAB PO PRN (20:09)
[2023-02-16] MEDS: MIRTAZAPINE TAB 15 MG TAB PO SCH (20:09)
[2023-02-16] MEDS: oxyCODONE HCL IR 5 MG TAB (IMMEDIATE RELEASE) PO PRN (22:51)
[2023-02-16] MEDS: ZOLPIDEM TARTRATE 5 MG TAB PO PRN (23:20)
[2023-02-17] MEDS: ENOXAPARIN 100 MG/1ML SYR SQ SCH ×2 (05:07→16:40)
[2023-02-17 07:15] LABS: Hematocrit (blood only) 30.1 % (42.0-52.0); Hemoglobin 10.2 g/dl (14.0-18.0); Mean Corpuscular Hgb Conc 33.9 g/dL (32.0-36.0); Mean Corpuscular Volume 91.5 fL (80.0-100.0); Mean Platelet Volume 9.2 fL (9.4-12.4); Platelet Count 245 K/uL (130-400); RDW Coefficient of Variation 15.9 % (11.5-14.5); RDW Standard Deviation 53.1 fL (36.4-46.3); Red Blood Count 3.29 M/uL (4.70-6.10); White Blood Count 6.11 K/ul (4.8-10.8)
--- NOTE | 2023-02-17 07:21 | Hospitalist Progress Note ---
Date of Service February 17, 2023 Assessment & Plan (1) Diabetic infection of left foot: (2) Chronic systolic heart failure: (3) CKD (chronic kidney disease), stage III: (4) Pacemaker: (5) Diabetes mellitus type 2 with complications: (6) Coronary artery disease: (7) Atrial fibrillation: Plan Mr. Thayer is an 87 year old gentleman that presented to the ED on 01/30 per recommendations by wound clinic for evaluation of his non healing foot wound. He was seen in the setting of persistent non healing diabetic ulcers of the 5th metatarsal showing signs of tissue loss and tunneling. He has a history of PAD, CAD, atrial fibrillation on warfarin, diabetes with neuropathy and history of foot wounds. 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 Discussion with podiatry was had, ultimately confirmed clean margins. Contacted ID for further abx duration recommendations; however, noted diffuse rash c/w drug eruption across abdomen on 02/15. Discontinued ampicillin with plans for vancomycin x 7 days post operatively Discharge delayed due to pending bed availability. 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 Surface wound culture from admission showing pansensitive Enterococcus Patient was previously on empiric Dapto and Zosyn. Seen by ID who recommended IV ampicillin 2g (started on 02/03/2023, d/c 02/15) Bone biopsy and repeat/deep cultures done on 02/06 by podiatry -Bone biopsy pathology consistent with osteomyelitis -Bone and foot sample Cx from 02/06 growing corynebacterium and enterococcus faecalis sensitive to ampicillin POD #4 s/p Left Foot Fifth Ray Resection, ulcer debridement, with plans for OP follow up with Podiatry on 02/20 assuming dispo -Continue Vancomycin EOT 02/22 #Peripheral arterial occlusive disease status post angioplasty and stenting of left lower extremity by interventional cardiology on 02/02. Recommendations noted: -continue Plavix for 1 month and follow-up with vascular surgery in 2 weeks 03/03 EOT Anticoagulation with warfarin (see below) Continue Plavix #Paroxysmal atrial fibrillation Continue Amiodarone, metoprolol Home dose of Coumadin is 1 mg MWF and 2 mg rest of the week. INR daily, 3mg tonight Pacemaker in place #Chronic Heart Failure with Mildly Reduced EF Last ECHO 02/11: LV function mildly reduced. LV wall thickness concentric. EF 45%. Grade I DDx. Lasix held iso ALISSA -Trial lasix 10mg in am #ALISSA on CKD III Chronic Berman Monitor renal function Avoid nephrotoxic agents as able Trial lasix 10mg in am #DM II with peripheral neuropathy HbA1C: 6.6 Continue Gabapentin Continue insulin per protocol Monitor BGs Diet: HH/DMII DVT Px: Coumadin Dispo: has [facility] HH services, will likely need placement if needs extended IV abx. Pending authorization Admission and Anticipated Discharge Date Admission Date: January 30, 2023 Subjective NAEO Constant issue with bed changing despite education, agreeable to pillow case given concern over texture under bottom Review of Systems Review of Systems: All systems reviewed & are unremarkable except as noted in Subjective Physical Exam Constitutional: WD/WN, vitals as above Respiratory: normal respiratory effort, lungs clear to auscultation Cardiovascular: RRR, no murmur, no edema Gastrointestinal (Abdomen): normal bowel sounds, soft, nontender, no hepatosplenomegaly Results & Data Results & Data Vital Signs (Past 12 Hours) Vital Signs Temp Pulse Pulse Resp BP BP Pulse Ox 02/17/23 04:42 36.3 C L 71 16 158/76 H 97 02/17/23 00:50 61 02/17/23 00:35 02/16/23 23:00 36.9 C 63 18 145/68 H 93 02/16/23 20:04 36.9 C 66 18 139/63 96 O2 Del Method 02/17/23 04:42 Room Air 02/17/23 00:50 02/17/23 00:35 Room Air 02/16/23 23:00 Room Air 02/16/23 20:04 Room Air Laboratory Results Short CBC 02/17/23 Range/Units 06:19 WBC 6.11 (4.8-10.8) K/ul Hgb 10.2 L (14.0-18.0) g/dl Hct 30.1 L (42.0-52.0) % Plt Count 245 (130-400) K/uL [facility] 02/17/23 06:19 Sodium 137 Potassium 3.6 Chloride 104 Carbon Dioxide 29 BUN 20 Creatinine 1.15 Glucose 125 H Calcium 7.8 L Medications Administered Short CBC 02/17/23 Range/Units 06:19 WBC 6.11 (4.8-10.8) K/ul Hgb 10.2 L (14.0-18.0) g/dl Hct 30.1 L (42.0-52.0) % Plt Count 245 (130-400) K/uL [facility] 02/17/23 06:19 Sodium 137 Potassium 3.6 Chloride 104 Carbon Dioxide 29 BUN 20 Creatinine 1.15 Glucose 125 H Calcium 7.8 L (6) Coronary artery disease Associated angina: without angina Coronary Disease-Associated Artery/Lesion type: [place] artery [place] vs. transplanted heart: [place] heart Qualified Code(s): I25.10 - Atherosclerotic heart disease of [place] coronary artery without angina pectoris (7) Atrial fibrillation Atrial fibrillation type: unspecified Qualified Code(s): I48.91 - Unspecified atrial fibrillation
[2023-02-17 07:24] LABS: BUN Creatinine Ratio 17.4 (10-20); Calcium 7.8 mg/dl (8.6-10.3); Creatinine Clr Calc Pharmacy 55.5 ml/min; Est GFR (African American) 65.9 ml/min; Est GFR (Non-African American) 56.9 ml/min; Magnesium 1.9 mg/dl (1.7-2.4); Phosphorus 2.4 mg/dl (2.5-4.9); Potassium 3.6 mmol/L (3.5-5.1)
[2023-02-17 07:38] LABS: INR 1.4 (0.9-1.1); Prothrombin Time 15.5 Seconds (9.0-12.0)
--- NOTE | 2023-02-17 07:49 | Pharmacy Report ---
Pharmacy PK ABX Note - Date of Service February 17, 2023 - Assessment and Plan Assessment 87 year old M on day # 18 of hospitalization for infected diabetic left foot with osteomyelitis. ID consulted. s/p bone biopsy and repeat/deep cultures on 02/06 by podiatry -Bone biopsy pathology consistent with osteomyelitis -Bone and foot sample Cx from 02/06 growing corynebacterium and enterococcus faecalis sensitive to ampicillin s/p Left Foot Fifth Ray Resection, ulcer debridement on 02/13 Treated with ampicillin 02/03 - 02/15. Ampicillin discontinued due to new pruritic eruption on abdomen. Ordered vancomycin IV in the meantime until antibiotic regimen can be further discussed with ID service. Plan Vancomycin * Renal fxn continues to recover to baseline. Will make minor adjustment to maint dose in order to have greater probability of achieving AUC/OSMAN target * New maintenance dose: 1500 mg IV every 24 hours * Regimen is predicted to achieve target AUC/OSMAN of 400-600 mg/L.hr with ~13% ri sk nephrotoxicity * Drug level will be obtained tomorrow afternoon if therapy to continue Pharmacy will continue to follow and will adjust dose/frequency as necessary. Thank you.
[2023-02-17] MEDS: INSULIN ASPART PER UNIT CHARGE SC SCH ×4 (09:47→22:09)
[2023-02-17] MEDS: GABAPENTIN 300 MG CAP PO SCH ×3 (09:49→20:08)
[2023-02-17] MEDS: LORATADINE 10 MG TAB PO SCH (09:50)
[2023-02-17] MEDS: FUROSEMIDE 20 MG TAB PO SCH (09:50)
[2023-02-17] MEDS: CLOPIDOGREL BISULFATE 75 MG TAB PO SCH (09:50)
[2023-02-17] MEDS: MULTIVITAMIN TAB PO SCH (09:51)
[2023-02-17] MEDS: HYDROCORTISONE 2.5% CR 30 GM TUBE EXT SCH ×3 (09:51→20:12)
[2023-02-17] MEDS: MAGNESIUM OXIDE 400 MG TAB PO SCH (09:51)
[2023-02-17] MEDS: METOPROLOL SUCC 25MG EXT REL TAB PO SCH (09:51)
[2023-02-17] MEDS: CALCIUM CITRATE 950 MG TAB PO SCH ×2 (09:52→20:07)
[2023-02-17] MEDS: DOCUSATE SODIUM 100 MG CAP PO SCH ×2 (09:53→20:12)
[2023-02-17] MEDS: LANTUS PER UNIT CHARGE SC SCH (09:53)
[2023-02-17] MEDS ORDERED: POT PHOSPHATE MONOBASIC W/ SOD TAB PO STA (11:49)
[2023-02-17] MEDS ORDERED: WARFARIN SOD 5 MG TAB PO SCH (16:00)
[2023-02-17] MEDS: VANCOMYCIN HCL 1,500 MG in SODIUM CHLORIDE 0.9% 500 ML IV SCH (18:21)
[2023-02-17] MEDS: AMIODARONE 200 MG TAB PO SCH (20:07)
[2023-02-17] MEDS: MIRTAZAPINE TAB 15 MG TAB PO SCH (20:08)
[2023-02-17] MEDS: LORazepam 0.5 MG TAB PO PRN (20:15)
[2023-02-17] MEDS: ZOLPIDEM TARTRATE 5 MG TAB PO PRN (22:23)
[2023-02-18] MEDS: oxyCODONE HCL IR 5 MG TAB (IMMEDIATE RELEASE) PO PRN ×2 (01:22→21:20)
[2023-02-18] MEDS: ENOXAPARIN 100 MG/1ML SYR SQ SCH (04:52)
[2023-02-18 06:28] LABS: Hematocrit (blood only) 31.1 % (42.0-52.0); Hemoglobin 10.7 g/dl (14.0-18.0); Mean Corpuscular Hemoglobin 31.4 pg (25.0-34.0); Mean Corpuscular Hgb Conc 34.4 g/dL (32.0-36.0); Mean Corpuscular Volume 91.2 fL (80.0-100.0); Mean Platelet Volume 9.1 fL (9.4-12.4); Platelet Count 242 K/uL (130-400); RDW Coefficient of Variation 15.9 % (11.5-14.5); RDW Standard Deviation 53.4 fL (36.4-46.3); Red Blood Count 3.41 M/uL (4.70-6.10); White Blood Count 5.66 K/ul (4.8-10.8)
[2023-02-18 06:51] LABS: BUN Creatinine Ratio 19.8 (10-20); Calcium 7.8 mg/dl (8.6-10.3); Creatinine Clr Calc Pharmacy 65.9 ml/min; Est GFR (Non-African American) 70.8 ml/min; Potassium 3.5 mmol/L (3.5-5.1)
[2023-02-18 07:20] LABS: INR 1.9 (0.9-1.1); Prothrombin Time 19.5 Seconds (9.0-12.0)
--- NOTE | 2023-02-18 07:49 | Hospitalist Progress Note ---
Date of Service February 18, 2023 Assessment & Plan (1) Diabetic infection of left foot: (2) Chronic systolic heart failure: (3) CKD (chronic kidney disease), stage III: (4) Pacemaker: (5) Diabetes mellitus type 2 with complications: (6) Coronary artery disease: (7) Atrial fibrillation: Plan Mr. Thayer is an 87 year old gentleman that presented to the ED on 01/30 per recommendations by wound clinic for evaluation of his non healing foot wound. He was seen in the setting of persistent non healing diabetic ulcers of the 5th metatarsal showing signs of tissue loss and tunneling. He has a history of PAD, CAD, atrial fibrillation on warfarin, diabetes with neuropathy and history of foot wounds. He completed a course of doxycycline 2 weeks [employer]; however, it was noted that the wound was with purulent drainage suggesting signs of deeper infection. Discussion with podiatry was had, ultimately confirmed clean margins. Contacted ID for further abx duration recommendations; however, noted diffuse rash c/w drug eruption across abdomen on 02/15. Discontinued ampicillin with plans for vancomycin x 7 days post operatively Discharge delayed due to pending bed availability. 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 Surface wound culture from admission showing pansensitive Enterococcus Patient was previously on empiric Dapto and Zosyn. Seen by ID who recommended IV ampicillin 2g (started on 02/03/2023, d/c 02/15) Bone biopsy and repeat/deep cultures done on 02/06 by podiatry -Bone biopsy pathology consistent with osteomyelitis -Bone and foot sample Cx from 02/06 growing corynebacterium and enterococcus faecalis sensitive to ampicillin POD #5 s/p Left Foot Fifth Ray Resection, ulcer debridement, with plans for OP follow up with Podiatry on 02/20 assuming dispo -Continue Vancomycin EOT 02/22 #Peripheral arterial occlusive disease status post angioplasty and stenting of left lower extremity by interventional cardiology on 02/02. Recommendations noted: -continue Plavix for 1 month and follow-up with vascular surgery in 2 weeks 03/03 EOT Anticoagulation with warfarin (see below) Continue Plavix #Paroxysmal atrial fibrillation Continue Amiodarone, metoprolol Home dose of Coumadin is 1 mg MWF and 2 mg rest of the week. INR daily, 3mg tonight Pacemaker in place #Chronic Heart Failure with Mildly Reduced EF Last ECHO 02/11: LV function mildly reduced. LV wall thickness concentric. EF 45%. Grade I DDx. Lasix held iso ALISSA -Continue lasix 10mg in am #ALISSA on CKD III *resolved Chronic Berman Monitor renal function Avoid nephrotoxic agents as able Continue lasix 10mg in am #DM II with peripheral neuropathy HbA1C: 6.6 Continue Gabapentin Continue insulin per protocol Monitor BGs Diet: HH/DMII DVT Px: Coumadin Dispo: pending placement Admission and Anticipated Discharge Date Admission Date: January 30, 2023 Subjective NAEO Wishes to watch his football game uninterrupted Review of Systems Review of Systems: All systems reviewed & are unremarkable except as noted in Subjective Physical Exam Constitutional: WD/WN, vitals as above Respiratory: no respiratory distress appreciated Results & Data Results & Data Vital Signs (Past 12 Hours) Vital Signs Temp Pulse Pulse Resp BP Pulse Ox O2 Del Method 02/18/23 06:00 70 02/18/23 02:59 36.1 C L 66 18 111/65 95 Room Air 02/17/23 22:03 65 02/18/23 01:06 Room Air 02/17/23 22:48 36.9 C 69 16 136/79 97 Room Air Laboratory Results Short CBC 02/18/23 Range/Units 06:02 WBC 5.66 (4.8-10.8) K/ul Hgb 10.7 L (14.0-18.0) g/dl Hct 31.1 L (42.0-52.0) % Plt Count 242 (130-400) K/uL BMP 02/18/23 06:02 Sodium 137 Potassium 3.5 Chloride 103 Carbon Dioxide 29 BUN 19 Creatinine 0.96 Glucose 118 H Calcium 7.8 L Medications Administered Home Medications Medication Instructions Recorded Confirmed Last Taken amiodarone 200 mg tablet 200 mg PO QAM 01/02/18 01/30/23 12/06/22 insulin glargine 100 unit/mL 8 units subcut BID 01/02/18 01/30/23 05/12/22 subcutaneous solution loratadine 10 mg tablet 10 mg PO QAM 01/02/18 01/30/23 12/06/22 magnesium oxide 400 mg (241.3 mg 400 mg PO QAM 01/02/18 01/30/23 12/06/22 magnesium) tablet metoprolol succinate 25 mg 25 mg PO QAM 01/02/18 01/30/23 12/06/22 tablet,extended release 24 hr zolpidem 5 mg tablet (Ambien) 5 mg PO HS 01/02/18 01/30/23 12/06/22 gabapentin 300 mg capsule 300 mg PO TID 03/10/18 01/30/23 12/06/22 docusate sodium 100 mg capsule 100 mg PO BID 04/27/22 01/30/23 12/06/22 (Colace) hydrocodone 5 mg-acetaminophen 325 0.5 tab PO Q12H PRN pain,severe 04/27/22 01/30/23 Unknown mg tablet mometasone 0.1 % topical solution 1 applic topical DAILY PRN Itching 04/27/22 Unknown acetaminophen 325 mg capsule 650 mg PO QID PRN PAIN/FEVER 05/10/22 01/30/23 05/12/22 09:57 furosemide 20 mg tablet 40 mg PO QAM 06/28/22 01/30/23 12/06/22 bisacodyl 10 mg rectal suppository 10 mg [place] DAILY PRN Constipation 12/01/22 01/30/23 Unknown calcium carbonate 500 mg-vitamin 1 tab PO DAILY 12/01/22 01/30/23 12/06/22 D3 5 mcg (200 unit) tablet (Oyster Shell Calcium-Vitamin D3) clotrimazole 1 % topical cream 1 applic topical UD 12/01/22 01/30/23 12/06/22 lorazepam 0.5 mg tablet 0.5 mg PO DAILY PRN anxiety/sleep 12/01/22 01/30/23 Unknown mirtazapine 30 mg tablet (Remeron) 30 mg PO DAILY 12/01/22 01/30/23 12/06/22 multivit,stress formula-zinc tablet 1 tab PO DAILY 12/01/22 01/30/23 12/06/22 vitamin A-vitamin C-vit E-min 1 tab PO DAILY 12/01/22 01/30/23 12/06/22 tablet warfarin 1 mg tablet 1 - 2 mg PO UD 12/01/22 01/30/23 12/06/22 Active Medications Generic Name Dose Route Start Last Admin Trade Name Freq PRN Reason Stop Dose Admin Acetaminophen 650 mg 01/30/23 18:57 02/10/23 11:50 Acetaminophen 325 Mg Tab PO 03/01/23 18:56 650 mg Q4H PRN Administration Pain or Fever Amiodarone HCl 200 mg 01/31/23 21:00 02/17/23 20:07 Amiodarone 200 Mg Tab PO 03/02/23 20:59 200 mg QPM ABIODNU Administration Calcium Citrate 950 mg 02/14/23 11:25 02/18/23 08:17 Calcium Citrate 950 Mg Tab PO 03/16/23 11:24 950 mg BID ABIODUN Administration Clopidogrel Bisulfate 75 mg 02/03/23 09:00 02/18/23 08:19 Clopidogrel Bisulfate 75 Mg Tab PO 03/05/23 08:59 75 mg QAM ABIODUN Administration Docusate Sodium 100 mg 01/31/23 16:30 02/18/23 09:28 Docusate Sodium 100 Mg Cap PO 03/02/23 16:29 100 mg BID ABIODUN Administration Furosemide 40 mg 01/31/23 09:00 02/14/23 09:45 Furosemide 40 Mg Tab PO 03/02/23 08:59 40 mg QAM ABIODUN Administration Furosemide 10 mg 02/17/23 09:00 02/18/23 08:18 Furosemide 20 Mg Tab PO 03/19/23 08:59 10 mg QAM ABIODUN Administration Gabapentin 300 mg 01/30/23 21:00 02/18/23 13:16 Gabapentin 300 Mg Cap PO 03/01/23 20:59 300 mg TID ABIODUN Administration Vancomycin HCl 1,500 mg/ 530 mls @ 200 mls/hr 02/17/23 18:00 02/17/23 22:17 Sodium Chloride IV 02/22/23 23:59 Infused Q24H ABIODUN Infusion Insulin Aspart 0 units 02/13/23 16:30 02/18/23 13:16 Insulin Aspart Per Unit Charge SC 03/15/23 16:29 6 units ACHS ABIODUN Administration Insulin Glargine 5 units 02/01/23 09:00 02/18/23 09:26 Lantus Per Unit Charge SC 03/03/23 08:59 5 units QAM ABIODUN Administration Loratadine 10 mg 01/31/23 09:00 02/18/23 08:19 Loratadine 10 Mg Tab PO 03/02/23 08:59 10 mg QAM ABIODUN Administration Lorazepam 0.5 mg 01/30/23 19:52 02/17/23 20:15 Lorazepam 0.5 Mg Tab PO 03/01/23 19:51 0.5 mg DAILY PRN Administration anxiety/sleep Magnesium Oxide 400 mg 01/31/23 09:00 02/18/23 08:20 Magnesium Oxide 400 Mg Tab PO 03/02/23 08:59 400 mg QAM ABIODUN Administration Metoprolol Succinate 25 mg 01/31/23 09:00 02/18/23 08:19 Metoprolol Succ 25mg Ext Rel Tab PO 03/02/23 08:59 25 mg QAM ABIODUN Administration Mirtazapine 30 mg 01/30/23 21:00 02/17/23 20:08 Mirtazapine Tab 15 Mg Tab PO 03/01/23 20:59 30 mg HS ABIODUN Administration Multivitamins 1 tab 01/31/23 16:30 02/18/23 08:18 Multivitamin Tab PO 03/02/23 16:29 1 tab QAM ABIODUN Administration Oxycodone HCl 5 mg 02/13/23 20:37 02/18/23 01:22 Oxycodone Hcl Ir 5 Mg Tab (Immediate Release) PO 02/27/23 20:36 5 mg Q4H PRN Administration Pain Polyethylene Glycol 17 gm 01/30/23 18:57 02/04/23 09:06 Polyethylene (Miralax) 17 Gm Pack PO 03/01/23 18:56 17 gm DAILY PRN Administration Constipation Warfarin Sodium 3 mg 02/18/23 16:00 02/18/23 16:40 Warfarin Sod 3 Mg Tab PO 03/20/23 15:59 3 mg DAILY@1600 ABIODUN Administration Zolpidem Tartrate 5 mg 01/30/23 20:35 02/17/23 22:23 Zolpidem Tartrate 5 Mg Tab PO 03/01/23 20:59 5 mg HS PRN Administration Insomnia (6) Coronary artery disease Associated angina: without angina Coronary Disease-Associated Artery/Lesion type: [place] artery [place] vs. transplanted heart: [place] heart Qualified Code(s): I25.10 - Atherosclerotic heart disease of [place] coronary artery without angina pectoris (7) Atrial fibrillation Atrial fibrillation type: unspecified Qualified Code(s): I48.91 - Unspecified atrial fibrillation
[2023-02-18] MEDS: CALCIUM CITRATE 950 MG TAB PO SCH ×2 (08:17→21:19)
[2023-02-18] MEDS: GABAPENTIN 300 MG CAP PO SCH ×3 (08:18→21:19)
[2023-02-18] MEDS: FUROSEMIDE 20 MG TAB PO SCH (08:18)
[2023-02-18] MEDS: MULTIVITAMIN TAB PO SCH (08:18)
[2023-02-18] MEDS: METOPROLOL SUCC 25MG EXT REL TAB PO SCH (08:19)
[2023-02-18] MEDS: LORATADINE 10 MG TAB PO SCH (08:19)
[2023-02-18] MEDS: CLOPIDOGREL BISULFATE 75 MG TAB PO SCH (08:19)
[2023-02-18] MEDS: MAGNESIUM OXIDE 400 MG TAB PO SCH (08:20)
[2023-02-18] MEDS: INSULIN ASPART PER UNIT CHARGE SC SCH ×4 (09:25→21:19)
[2023-02-18] MEDS: LANTUS PER UNIT CHARGE SC SCH (09:26)
[2023-02-18] MEDS: DOCUSATE SODIUM 100 MG CAP PO SCH ×2 (09:28→21:25)
--- NOTE | 2023-02-18 11:15 | Pharmacy Report ---
Pharmacy PK ABX Note - Date of Service February 18, 2023 - Assessment and Plan Assessment 87 year old M on day # 18 of hospitalization for infected diabetic left foot with osteomyelitis. ID consulted. s/p bone biopsy and repeat/deep cultures on 02/06 by podiatry -Bone biopsy pathology consistent with osteomyelitis -Bone and foot sample Cx from 02/06 growing corynebacterium and enterococcus faecalis sensitive to ampicillin s/p Left Foot Fifth Ray Resection, ulcer debridement on 02/13 Treated with ampicillin 02/03 - 02/15. Ampicillin discontinued due to new pruritic eruption on abdomen. Ordered vancomycin IV in the meantime until antibiotic regimen can be further discussed with ID service. - Per Dr. Hunt, ID rec 7 days of vanc from 02/15. Prior auth pending. Plan Vancomycin * Renal fxn continues to recover to baseline. * Level of 13.6 mcg/mL today associated with an AUC/OSMAN of 415 mg/L.hr * Regimen is predicted to achieve target AUC/OSMAN of 400-600 mg/L.hr with ~7% risk nephrotoxicity * Additional level in 2-3 days, depending on anticipated duration of therapy and if clinical status/renal function changes. Pharmacy will continue to follow and will adjust dose/frequency as necessary. Thank you.
[2023-02-18] MEDS ORDERED: WARFARIN SOD 3 MG TAB PO SCH (16:00)
[2023-02-18] MEDS: VANCOMYCIN HCL 1,500 MG in SODIUM CHLORIDE 0.9% 500 ML IV SCH (17:25)
[2023-02-18] MEDS: MIRTAZAPINE TAB 15 MG TAB PO SCH (21:18)
[2023-02-18] MEDS: LORazepam 0.5 MG TAB PO PRN (21:18)
[2023-02-18] MEDS: AMIODARONE 200 MG TAB PO SCH (21:19)
[2023-02-18] MEDS: ZOLPIDEM TARTRATE 5 MG TAB PO PRN (23:02)
[2023-02-19 07:46] LABS: Hematocrit (blood only) 32.2 % (42.0-52.0); Hemoglobin 10.7 g/dl (14.0-18.0); Mean Corpuscular Hemoglobin 30.9 pg (25.0-34.0); Mean Corpuscular Hgb Conc 33.2 g/dL (32.0-36.0); Mean Corpuscular Volume 93.1 fL (80.0-100.0); Mean Platelet Volume 9.3 fL (9.4-12.4); Platelet Count 242 K/uL (130-400); RDW Coefficient of Variation 16.2 % (11.5-14.5); RDW Standard Deviation 55.1 fL (36.4-46.3); Red Blood Count 3.46 M/uL (4.70-6.10); White Blood Count 6.59 K/ul (4.8-10.8)
[2023-02-19 07:57] LABS: BUN Creatinine Ratio 16.2 (10-20); Calcium 7.8 mg/dl (8.6-10.3); Creatinine Clr Calc Pharmacy 60.5 ml/min; Est GFR (African American) 73.6 ml/min; Est GFR (Non-African American) 63.5 ml/min; Potassium 3.7 mmol/L (3.5-5.1)
--- NOTE | 2023-02-19 08:02 | Hospitalist Progress Note ---
Date of Service February 19, 2023 Assessment & Plan (1) Diabetic infection of left foot: (2) Chronic systolic heart failure: (3) CKD (chronic kidney disease), stage III: (4) Pacemaker: (5) Diabetes mellitus type 2 with complications: (6) Coronary artery disease: (7) Atrial fibrillation: Plan Mr. Thayer is an 87 year old gentleman that presented to the ED on 01/30 per recommendations by wound clinic for evaluation of his non healing foot wound. He was seen in the setting of persistent non healing diabetic ulcers of the 5th metatarsal showing signs of tissue loss and tunneling. He has a history of PAD, CAD, atrial fibrillation on warfarin, diabetes with neuropathy and history of foot wounds. He completed a course of doxycycline 2 weeks [employer]; however, it was noted that the wound was with purulent drainage suggesting signs of deeper infection. Discussion with podiatry was had, ultimately confirmed clean margins. Contacted ID for further abx duration recommendations; however, noted diffuse rash c/w drug eruption across abdomen on 02/15, which resolved with the dis continuation of ampicillin.Plans for vancomycin x 7 days post operatively, EOT 02/22 Discharge delayed due to pending bed availability. 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 Surface wound culture from admission showing pansensitive Enterococcus Patient was previously on empiric Dapto and Zosyn. Seen by ID who recommended IV ampicillin 2g (started on 02/03/2023, d/c 02/15) Bone biopsy and repeat/deep cultures done on 02/06 by podiatry -Bone biopsy pathology consistent with osteomyelitis -Bone and foot sample Cx from 02/06 growing corynebacterium and enterococcus faecalis sensitive to ampicillin POD #5 s/p Left Foot Fifth Ray Resection, ulcer debridement, with plans for OP follow up with Podiatry on 02/20 assuming dispo -Continue Vancomycin EOT 02/22 -Podiatry to change dressing 02/20 #Peripheral arterial occlusive disease status post angioplasty and stenting of left lower extremity by interventional cardiology on 02/02. Recommendations noted: -continue Plavix for 1 month and follow-up with vascular surgery in 2 weeks 03/03 EOT Anticoagulation with warfarin (see below) Continue Plavix #Paroxysmal atrial fibrillation Continue Amiodarone, metoprolol Home dose of Coumadin is 1 mg MWF and 2 mg rest of the week. INR daily, transition to 2mg warfarin Pacemaker in place #Chronic Heart Failure with Mildly Reduced EF Last ECHO 02/11: LV function mildly reduced. LV wall thickness concentric. EF 45%. Grade I DDx. Lasix held iso ALISSA -Continue lasix 10mg in am #ALISSA on CKD III *resolved Chronic Berman Monitor renal function Avoid nephrotoxic agents as able Continue lasix 10mg in am #DM II with peripheral neuropathy HbA1C: 6.6 Continue Gabapentin Continue insulin per protocol Monitor BGs Diet: HH/DMII DVT Px: Coumadin Dispo: pending placement Admission and Anticipated Discharge Date Admission Date: January 30, 2023 Subjective NAEO Denies any current symptoms. Allowing nursing to clean him and reposition. Review of Systems Review of Systems: All systems reviewed & are unremarkable except as noted in Subjective Physical Exam Constitutional: WD/WN, vitals as above Respiratory: normal respiratory effort, lungs clear to auscultation Cardiovascular: RRR, no murmur, no edema Gastrointestinal (Abdomen): normal bowel sounds, soft, nontender, no hepatosplenomegaly Results & Data Results & Data Vital Signs (Past 12 Hours) Vital Signs Temp Pulse Pulse Resp BP Pulse Ox O2 Del Method 02/19/23 08:01 36.2 C L 78 18 171/78 H 92 Room Air 02/19/23 06:01 104 H 02/19/23 02:11 35.7 C L 59 L 18 146/71 H 98 Room Air 02/18/23 23:08 36.8 C 62 14 128/80 98 Room Air 02/18/23 21:58 66 02/18/23 20:08 36.6 C 64 18 119/59 L 98 Room Air Laboratory Results Short CBC 02/19/23 Range/Units 06:46 WBC 6.59 (4.8-10.8) K/ul Hgb 10.7 L (14.0-18.0) g/dl Hct 32.2 L (42.0-52.0) % Plt Count 242 (130-400) K/uL BMP 02/19/23 06:46 Sodium 137 Potassium 3.7 Chloride 102 Carbon Dioxide 30 BUN 17 Creatinine 1.05 Glucose 102 H Calcium 7.8 L Medications Administered Home Medications Medication Instructions Recorded Confirmed Last Taken amiodarone 200 mg tablet 200 mg PO QAM 01/02/18 01/30/23 12/06/22 insulin glargine 100 unit/mL 8 units subcut BID 01/02/18 01/30/23 05/12/22 subcutaneous solution loratadine 10 mg tablet 10 mg PO QAM 01/02/18 01/30/23 12/06/22 magnesium oxide 400 mg (241.3 mg 400 mg PO [facility] 01/02/18 01/30/23 12/06/22 magnesium) tablet metoprolol succinate 25 mg 25 mg PO QAM 01/02/18 01/30/23 12/06/22 tablet,extended release 24 hr zolpidem 5 mg tablet (Ambien) 5 mg PO HS 01/02/18 01/30/23 12/06/22 gabapentin 300 mg capsule 300 mg PO TID 03/10/18 01/30/23 12/06/22 docusate sodium 100 mg capsule 100 mg PO BID 04/27/22 01/30/23 12/06/22 (Colace) hydrocodone 5 mg-acetaminophen 325 0.5 tab PO Q12H PRN pain,severe 04/27/22 01/30/23 Unknown mg tablet mometasone 0.1 % topical solution 1 applic topical DAILY PRN Itching 04/27/22 01/30/23 Unknown acetaminophen 325 mg capsule 650 mg PO QID PRN PAIN/FEVER 05/10/22 01/30/23 05/12/22 09:57 furosemide 20 mg tablet 40 mg PO QAM 06/28/22 01/30/23 12/06/22 bisacodyl 10 mg rectal suppository 10 mg [place] DAILY PRN Constipation 12/01/22 01/30/23 Unknown calcium carbonate 500 mg-vitamin 1 tab PO DAILY 12/01/22 01/30/23 12/06/22 D3 5 mcg (200 unit) tablet (Oyster Shell Calcium-Vitamin D3) clotrimazole 1 % topical cream 1 applic topical UD 12/01/22 01/30/23 12/06/22 lorazepam 0.5 mg tablet 0.5 mg PO DAILY PRN anxiety/sleep 12/01/22 01/30/23 Unknown mirtazapine 30 mg tablet (Remeron) 30 mg PO DAILY 12/01/22 01/30/23 12/06/22 multivit,stress formula-zinc tablet 1 tab PO DAILY 12/01/22 01/30/23 12/06/22 vitamin A-vitamin C-vit E-min 1 tab PO DAILY 12/01/22 01/30/23 12/06/22 tablet warfarin 1 mg tablet 1 - 2 mg PO UD 12/01/22 01/30/23 12/06/22 Active Medications Generic Name Dose Route Start Last Admin Trade Name Sidneyq PRN Reason Stop Dose Admin Acetaminophen 650 mg 01/30/23 18:57 02/10/23 11:50 Acetaminophen 325 Mg Tab PO 03/01/23 18:56 650 mg Q4H PRN Administration Pain or Fever Amiodarone HCl 200 mg 01/31/23 21:00 02/18/23 21:19 Amiodarone 200 Mg Tab PO 03/02/23 20:59 200 mg QPM ABIODUN Administration Calcium Citrate 950 mg 02/14/23 11:25 02/19/23 08:57 Calcium Citrate 950 Mg Tab PO 03/16/23 11:24 950 mg BID ABIODUN Administration Clopidogrel Bisulfate 75 mg 02/03/23 09:00 02/19/23 08:56 Clopidogrel Bisulfate 75 Mg Tab PO 03/05/23 08:59 75 mg QAM ABIODUN Administration Docusate Sodium 100 mg 01/31/23 16:30 02/19/23 09:07 Docusate Sodium 100 Mg Cap PO 03/02/23 16:29 100 mg BID ABIODUN Administration Furosemide 40 mg 01/31/23 09:00 02/14/23 09:45 Furosemide 40 Mg Tab PO 03/02/23 08:59 40 mg QAM ABIODUN Administration Furosemide 10 mg 02/17/23 09:00 02/19/23 08:56 Furosemide 20 Mg Tab PO 03/19/23 08:59 10 mg QAM ABIODUN Administration Gabapentin 300 mg 01/30/23 21:00 02/19/23 08:57 Gabapentin 300 Mg Cap PO 03/01/23 20:59 300 mg TID ABIODUN Administration Vancomycin HCl 1,500 mg/ 530 mls @ 200 mls/hr 02/17/23 18:00 02/18/23 20:07 Sodium Chloride IV 02/22/23 23:59 Infused Q24H ABIODUN Infusion Insulin Aspart 0 units 02/13/23 16:30 02/19/23 09:07 Insulin Aspart Per Unit Charge SC 03/15/23 16:29 1 units ACHS ABIODUN Administration Insulin Glargine 5 units 02/01/23 09:00 02/19/23 09:08 Lantus Per Unit Charge SC 03/03/23 08:59 5 units QAM ABIODUN Administration Loratadine 10 mg 01/31/23 09:00 02/19/23 08:55 Loratadine 10 Mg Tab PO 03/02/23 08:59 10 mg QAM ABIODUN Administration Lorazepam 0.5 mg 01/30/23 19:52 02/18/23 21:18 Lorazepam 0.5 Mg Tab PO 03/01/23 19:51 0.5 mg DAILY PRN Administration anxiety/sleep Magnesium Oxide 400 mg 01/31/23 09:00 02/19/23 08:56 Magnesium Oxide 400 Mg Tab PO 03/02/23 08:59 400 mg QAM ABIODUN Administration Metoprolol Succinate 25 mg 01/31/23 09:00 02/19/23 08:56 Metoprolol Succ 25mg Ext Rel Tab PO 03/02/23 08:59 25 mg QAM ABIODUN Administration Mirtazapine 30 mg 01/30/23 21:00 02/18/23 21:18 Mirtazapine Tab 15 Mg Tab PO 03/01/23 20:59 30 mg HS ABIODUN Administration Multivitamins 1 tab 01/31/23 16:30 02/19/23 08:57 Multivitamin Tab PO 03/02/23 16:29 1 tab QAM ABIODUN Administration Oxycodone HCl 5 mg 02/13/23 20:37 02/18/23 21:20 Oxycodone Hcl Ir 5 Mg Tab (Immediate Release) PO 02/27/23 20:36 5 mg Q4H PRN Administration Pain Polyethylene Glycol 17 gm 01/30/23 18:57 02/04/23 09:06 Polyethylene (Miralax) 17 Gm Pack PO 03/01/23 18:56 17 gm DAILY PRN Administration Constipation Potassium Chloride 10 meq 02/19/23 09:00 02/19/23 09:07 Potassium Chloride 10 Meq Tabcr PO 03/21/23 08:59 10 meq DAILY ABIODUN Administration Warfarin Sodium 3 mg 02/18/23 16:00 02/18/23 16:40 Warfarin Sod 3 Mg Tab PO 03/20/23 15:59 3 mg DAILY@1600 ABIODUN Administration Zolpidem Tartrate 5 mg 01/30/23 20:35 02/18/23 23:02 Zolpidem Tartrate 5 Mg Tab PO 03/01/23 20:59 5 mg HS PRN Administration Insomnia (6) Coronary artery disease Associated angina: without angina Coronary Disease-Associated Artery/Lesion type: [place] artery [place] vs. transplanted heart: [place] heart Qualified Code(s): I25.10 - Atherosclerotic heart disease of [place] coronary artery without angina pectoris (7) Atrial fibrillation Atrial fibrillation type: unspecified Qualified Code(s): I48.91 - Unspecified atrial fibrillation
[2023-02-19 08:17] LABS: INR 2.1 (0.9-1.1); Prothrombin Time 22.4 Seconds (9.0-12.0)
[2023-02-19] MEDS: LORATADINE 10 MG TAB PO SCH (08:55)
[2023-02-19] MEDS: MAGNESIUM OXIDE 400 MG TAB PO SCH (08:56)
[2023-02-19] MEDS: FUROSEMIDE 20 MG TAB PO SCH (08:56)
[2023-02-19] MEDS: METOPROLOL SUCC 25MG EXT REL TAB PO SCH (08:56)
[2023-02-19] MEDS: CLOPIDOGREL BISULFATE 75 MG TAB PO SCH (08:56)
[2023-02-19] MEDS: GABAPENTIN 300 MG CAP PO SCH ×3 (08:57→20:44)
[2023-02-19] MEDS: MULTIVITAMIN TAB PO SCH (08:57)
[2023-02-19] MEDS: CALCIUM CITRATE 950 MG TAB PO SCH ×2 (08:57→20:44)
[2023-02-19] MEDS: INSULIN ASPART PER UNIT CHARGE SC SCH ×4 (09:07→20:45)
[2023-02-19] MEDS: DOCUSATE SODIUM 100 MG CAP PO SCH ×2 (09:07→20:45)
[2023-02-19] MEDS: POTASSIUM CHLORIDE 10 MEQ TABCR PO SCH (09:07)
[2023-02-19] MEDS: LANTUS PER UNIT CHARGE SC SCH (09:08)
[2023-02-19] MEDS: oxyCODONE HCL IR 5 MG TAB (IMMEDIATE RELEASE) PO PRN ×2 (12:19→20:43)
[2023-02-19] MEDS: WARFARIN SOD 2 MG TAB PO SCH (15:49)
[2023-02-19] MEDS: VANCOMYCIN HCL 1,500 MG in SODIUM CHLORIDE 0.9% 500 ML IV SCH (17:46)
[2023-02-19] MEDS: AMIODARONE 200 MG TAB PO SCH (20:44)
[2023-02-19] MEDS: LORazepam 0.5 MG TAB PO PRN (20:44)
[2023-02-19] MEDS: MIRTAZAPINE TAB 15 MG TAB PO SCH ×2 (20:45→23:50)
[2023-02-19] MEDS: ZOLPIDEM TARTRATE 5 MG TAB PO PRN (23:50)
[2023-02-20] MEDS: oxyCODONE HCL IR 5 MG TAB (IMMEDIATE RELEASE) PO PRN ×2 (01:53→23:19)
[2023-02-20 06:41] LABS: Hematocrit (blood only) 33.1 % (42.0-52.0); Hemoglobin 11.2 g/dl (14.0-18.0); Mean Corpuscular Hgb Conc 33.8 g/dL (32.0-36.0); Mean Corpuscular Volume 91.7 fL (80.0-100.0); Mean Platelet Volume 8.9 fL (9.4-12.4); Platelet Count 254 K/uL (130-400); RDW Coefficient of Variation 16.3 % (11.5-14.5); RDW Standard Deviation 54.4 fL (36.4-46.3); Red Blood Count 3.61 M/uL (4.70-6.10)
[2023-02-20 07:05] LABS: INR 2.4 (0.9-1.1); Prothrombin Time 24.5 Seconds (9.0-12.0)
[2023-02-20 07:07] LABS: BUN Creatinine Ratio 15.1 (10-20); Est GFR (African American) 63.3 ml/min; Est GFR (Non-African American) 54.6 ml/min; Potassium 3.7 mmol/L (3.5-5.1)
[2023-02-20] MEDS: LANTUS PER UNIT CHARGE SC SCH (08:57)
[2023-02-20] MEDS: INSULIN ASPART PER UNIT CHARGE SC SCH ×4 (08:58→21:03)
[2023-02-20] MEDS: CLOPIDOGREL BISULFATE 75 MG TAB PO SCH (08:59)
[2023-02-20] MEDS: CALCIUM CITRATE 950 MG TAB PO SCH ×2 (08:59→21:01)
[2023-02-20] MEDS: FUROSEMIDE 20 MG TAB PO SCH (09:00)
[2023-02-20] MEDS: GABAPENTIN 300 MG CAP PO SCH ×3 (09:01→21:00)
[2023-02-20] MEDS: LORATADINE 10 MG TAB PO SCH (09:01)
[2023-02-20] MEDS: MAGNESIUM OXIDE 400 MG TAB PO SCH (09:01)
[2023-02-20] MEDS: METOPROLOL SUCC 25MG EXT REL TAB PO SCH (09:01)
[2023-02-20] MEDS: MULTIVITAMIN TAB PO SCH (09:02)
[2023-02-20] MEDS: POTASSIUM CHLORIDE 10 MEQ TABCR PO SCH (09:02)
[2023-02-20] MEDS: DOCUSATE SODIUM 100 MG CAP PO SCH ×2 (09:06→21:03)
--- NOTE | 2023-02-20 12:56 | Podiatry Consultation ---
Date of Consultation February 20, 2023 Assessment & Plan (1) Diabetic infection of left foot: Patient is stable for discharge. I would asked that he have no dressing change into please leave the dressing in place that I have provided to him today. I would prefer him not to have any dressing changes while [facility]. And again will follow-up with me on February 27 at 1 PM tomorrow I will evaluate the incision and change his dressings. I discussed this with patient and his home health care provider who is present at visit today. Again as long as he is stable from medicine standpoint and infectious disease I do feel he is stable to be discharged to [facility] at this time. He will remain nonweightbearing to the left foot may use right foot for any pivots and weightbearing when he is transitioning. Patient will follow-up with me arranged on February 27 at 1 PM. (2) PAD (peripheral artery disease): History of Present Illness Attending Physician: Hailey Hunt MD History of Present Illness Patient is a very pleasant 87-year-old male seen at bedside today, status post left foot ray resection includes fifth toe amputation and resection of fifth metatarsal. Postop day #7 Date of surgery Monday, February 13, 2023 Patient had all dressings removed at bedside home health caregiver present at visit today. No acute concerns pain well controlled. Incision and graft in place all sutures intact no dehiscence virtually no swelling no erythema no pain noted area appearing well-healing. Patient should continue to only use the right foot for pivot are any elpidio ghtbearing should continue to remain nonweightbearing to the left side. He states to me today that there is a bed available at [facility] and I do feel he is stable for discharge today we will arrange follow-up with me in office on February 27 at 1 PM for postop evaluation. We will continue all antibiotics per infectious disease recommendations. -No concerns noted today patient feeling well area healing and improving. Allergies Allergy/AdvReac Type Severity Reaction Status Date / Time ampicillin Allergy Intermediate Rash Verified 02/15/23 15:17 Macrolide Antibiotics Allergy Unknown PER Verified 01/30/23 16:04 MEDICAL RECORD sildenafil Allergy Unknown SWELLING Verified 01/30/23 16:04 OF FACE AND HEAD streptomycin Allergy Unknown N/V Verified 01/30/23 16:04 sulfite Allergy Unknown THROAT Verified 01/30/23 16:04 SWELLING nitrofurantoin AdvReac Diarrhea Verified 01/30/23 16:04 VASODILATORS Allergy Unknown "PERIPHERAL Uncoded 01/30/23 16:04 DILATOR" swelling of face and head Home Medications Medication Instructions Recorded Confirmed Type amiodarone 200 mg tablet 200 mg PO QAM 01/02/18 01/30/23 History insulin glargine 100 unit/mL 8 units subcut BID 01/02/18 01/30/23 History subcutaneous solution loratadine 10 mg tablet 10 mg PO QAM 01/02/18 01/30/23 History magnesium oxide 400 mg (241.3 mg 400 mg PO QAM 01/02/18 01/30/23 History magnesium) tablet metoprolol succinate 25 mg 25 mg PO QAM 01/02/18 01/30/23 History tablet,extended release 24 hr zolpidem 5 mg tablet (Ambien) 5 mg PO HS 01/02/18 01/30/23 History gabapentin 300 mg capsule 300 mg PO TID 03/10/18 01/30/23 History docusate sodium 100 mg capsule 100 mg PO BID 04/27/22 01/30/23 History (Colace) hydrocodone 5 mg-acetaminophen 325 0.5 tab PO Q12H PRN pain,severe 04/27/22 01/30/23 History mg tablet mometasone 0.1 % topical solution 1 applic topical DAILY PRN Itching 04/27/22 01/30/23 History acetaminophen 325 mg capsule 650 mg PO QID PRN PAIN/FEVER 05/10/22 01/30/23 History furosemide 20 mg tablet 40 mg PO QAM 06/28/22 01/30/23 History bisacodyl 10 mg rectal suppository 10 mg MS DAILY PRN Constipation 12/01/22 01/30/23 History calcium carbonate 500 mg-vitamin 1 tab PO DAILY 12/01/22 01/30/23 History D3 5 mcg (200 unit) tablet (Oyster Shell Calcium-Vitamin D3) clotrimazole 1 % topical cream 1 applic topical UD 12/01/22 01/30/23 History lorazepam 0.5 mg tablet 0.5 mg PO DAILY PRN anxiety/sleep 12/01/22 01/30/23 History mirtazapine 30 mg tablet (Remeron) 30 mg PO DAILY 12/01/22 01/30/23 History multivit,stress formula-zinc tablet 1 tab PO DAILY 12/01/22 01/30/23 History vitamin A-vitamin C-vit E-min 1 tab PO DAILY 12/01/22 01/30/23 History tablet warfarin 1 mg tablet 1 - 2 mg PO UD 12/01/22 01/30/23 History Patient History Medical History Ambulatory dysfunction Atrial fibrillation Cerebrovascular disease Chronic systolic CHF (congestive heart failure) Compression fracture of L4 lumbar vertebra HX BROKEN BACK Coronary artery disease Diabetes mellitus type 2 with complications Diabetic neuropathy Dyslipidemia Berman catheter in place gets changed monthly Generalized OA Heart failure History of airway aspiration History of colon cancer HX COLON SURGERY History of hepatitis B History of melanoma HX MELANOMA, HX MULTIPLE SKIN CA & REMOVED History of Mohs micrographic surgery for skin cancer History of prostate cancer PROSTATECTOMY Hypertension Lumbar spinal stenosis Pacemaker "DUAL" - PT NOT SURE BRAND, PLACED D/T AFIB - [facility] PVD (peripheral vascular disease) Renal failure ? stage Surgical History H/O prostatectomy History of anesthesia reaction WITH TESTICULAR SURGERY, [facility] - INCREASED BP & HAD TO STAY OVERNIGHT History of cardiac cath years ago> [facility] - CHECKING FOR BLOCKAGE - NO STENTS History of colonoscopy MULTIPLE History of right hemicolectomy History of testicular surgery History of tonsillectomy and adenoidectomy Family History Mother Coronary heart disease Father Heart disease Social History Smoking Status: Never smoker Second Hand Exposure: No; Do You Dip or Chew Tobacco: No; Hx Alcohol Use: No Hx Substance Use: No Preferred Language: German Communication Ability: Effective Hearing Ability: Hard of Hearing Bean Snipper Required: No Beliefs That Will Affect Care: None marital status: Single Current Living Situation: Alone Current Living Situation Comment: caregivers come to see him daily current occupational status: retired How many Children do You have: 0 Feels Safe at Home: Yes Diet: diabetic Diet Comment: Increased protein for healing per chart during the past year weight has: remained stable Assistive Devices: Hospital Bed, Scooter/Electric Scooter, Walker and Wheelchair Physical Exam Skin: Dressings removed incision inspected skin with normal color and texture dorsalis pedis pulse palpable. Dressings replaced consisting of Adaptic over graft 4 x 4 gauze abdominal pads roll gauze and an Rey bandage. Results & Data Vital Signs (Past 12 Hours) Vital Signs Temp Pulse Pulse Resp BP Pulse Ox O2 Del Method 02/20/23 11:31 36.5 C 71 18 127/61 97 Room Air 02/20/23 08:00 68 02/20/23 07:21 36.7 C 72 16 150/64 H 95 Room Air 02/20/23 02:57 35.7 C L 69 16 118/67 94 Room Air
--- NOTE | 2023-02-20 16:34 | Hospitalist Progress Note ---
Date of Service February 20, 2023 Assessment & Plan (1) Diabetic infection of left foot: (2) Chronic systolic heart failure: (3) CKD (chronic kidney disease), stage III: (4) Pacemaker: (5) Diabetes mellitus type 2 with complications: (6) Coronary artery disease: (7) Atrial fibrillation: Plan Mr. Thayer is an 87 year old gentleman that presented to the ED on 01/30 per recommendations by wound clinic for evaluation of his non healing foot wound. He was seen in the setting of persistent non healing diabetic ulcers of the 5th metatarsal showing signs of tissue loss and tunneling. He has a history of PAD, CAD, atrial fibrillation on warfarin, diabetes with neuropathy and history of foot wounds. He completed a course of doxycycline 2 weeks INTERMEDIATE FRAME TENDER; however, it was noted that the wound was with purulent drainage suggesting signs of deeper infection. Discussion with podiatry was had, ultimately confirmed clean margins. Contacted ID for further abx duration recommendations; however, noted diffuse rash c/w drug eruption across abdomen on 02/15, which resolved with the dis continuation of ampicillin.Plans for vancomycin x 7 days post operatively, EOT 02/22 Discharge delayed due to pending bed availability. 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 Surface wound culture from admission showing pansensitive Enterococcus Patient was previously on empiric Dapto and Zosyn. Seen by ID who recommended IV ampicillin 2g (started on 02/03/2023, d/c 02/15) Bone biopsy and repeat/deep cultures done on 02/06 by podiatry -Bone biopsy pathology consistent with osteomyelitis -Bone and foot sample Cx from 02/06 growing corynebacterium and enterococcus faecalis sensitive to ampicillin POD #5 s/p Left Foot Fifth Ray Resection, ulcer debridement, with plans for OP follow up with Podiatry on 02/20 assuming dispo -Continue Vancomycin EOT 02/22 -Podiatry changed dressing 02/20, per podiatry note: -"no dressing change into please leave the dressing in place that I have provided to him today. I would prefer him not to have any dressing changes while [facility]. And again will follow-up with me on February 27 at 1 PM tomorrow I will evaluate the incision and change his dressings. I discussed this with patient and [facility] Again as long as he is stable from medicine standpoint and infectious disease I do feel he is stable to be discharged to [facility] at this time. He will remain nonweightbearing to the left foot may use right foot for any pivots and weightbearing when he is transitioning. Patient will follow-up with me arranged on February 27 at 1 PM." #Peripheral arterial occlusive disease status post angioplasty and stenting of left lower extremity by interventional cardiology on 02/02. Recommendations noted: -continue Plavix for 1 month and follow-up with vascular surgery in 2 weeks 03/03 EOT Anticoagulation with warfarin (see below) Continue Plavix #Paroxysmal atrial fibrillation Continue Amiodarone, metoprolol Home dose of Coumadin is 1 mg MWF and 2 mg rest of the week. INR daily,resume home regimen Pacemaker in place #Chronic Heart Failure with Mildly Reduced EF Last ECHO 02/11: LV function mildly reduced. LV wall thickness concentric. EF 45%. Grade I DDx. Lasix held iso ALISSA -Continue lasix 10mg in am #ALISSA on CKD III *resolved Chronic Berman Monitor renal function Avoid nephrotoxic agents as able Continue lasix 10mg in am #DM II with peripheral neuropathy HbA1C: 6.6 Continue Gabapentin Continue insulin per protocol Monitor BGs Diet: HH/DMII DVT Px: Coumadin Dispo: pending placement Admission and Anticipated Discharge Date Admission Date: January 30, 2023 Subjective NAEO Denies any current symptoms. Review of Systems Review of Systems: All systems reviewed & are unremarkable except as noted in Subjective Physical Exam Constitutional: WD/WN, vitals as above Respiratory: normal respiratory effort, lungs clear to auscultation Cardiovascular: RRR, no murmur, no edema Results & Data Results & Data Vital Signs (Past 12 Hours) Vital Signs Temp Pulse Pulse Resp BP BP Pulse Ox 02/20/23 15:00 70 02/20/23 15:57 36.5 C 78 16 129/72 97 02/20/23 11:31 36.5 C 71 18 127/61 97 02/20/23 08:00 68 02/20/23 07:21 36.7 C 72 16 150/64 H 95 O2 Del Method 02/20/23 15:00 02/20/23 15:57 Room Air 02/20/23 11:31 Room Air 02/20/23 08:00 02/20/23 07:21 Room Air Laboratory Results Short CBC 02/20/23 Range/Units 06:08 WBC 6.90 (4.8-10.8) K/ul Hgb 11.2 L (14.0-18.0) g/dl Hct 33.1 L (42.0-52.0) % Plt Count 254 (130-400) K/uL BMP 02/20/23 06:08 Sodium 136 Potassium 3.7 Chloride 103 Carbon Dioxide 30 BUN 18 Creatinine 1.19 Glucose 121 H Calcium 8.0 L Medications Administered Home Medications Medication Instructions Recorded Confirmed Last Taken amiodarone 200 mg tablet 200 mg PO QAM 01/02/18 01/30/23 12/06/22 insulin glargine 100 unit/mL 8 units subcut BID 01/02/18 01/30/23 05/12/22 subcutaneous solution loratadine 10 mg tablet 10 mg PO QAM 01/02/18 01/30/23 12/06/22 magnesium oxide 400 mg (241.3 mg 400 mg PO QAM 01/02/18 01/30/23 12/06/22 magnesium) tablet metoprolol succinate 25 mg 25 mg PO QAM 01/02/18 01/30/23 12/06/22 tablet,extended release 24 hr zolpidem 5 mg tablet (Ambien) 5 mg PO HS 01/02/18 01/30/23 12/06/22 gabapentin 300 mg capsule 300 mg PO TID 03/10/18 01/30/23 12/06/22 docusate sodium 100 mg capsule 100 mg PO BID 04/27/22 01/30/23 12/06/22 (Colace) hydrocodone 5 mg-acetaminophen 325 0.5 tab PO Q12H PRN pain,severe 04/27/22 01/30/23 Unknown mg tablet mometasone 0.1 % topical solution 1 applic topical DAILY PRN Itching 04/27/22 01/30/23 Unknown acetaminophen 325 mg capsule 650 mg PO QID PRN PAIN/FEVER 05/10/22 01/30/23 05/12/22 09:57 furosemide 20 mg tablet 40 mg PO QAM 06/28/22 01/30/23 12/06/22 bisacodyl 10 mg rectal suppository 10 mg SD DAILY PRN Constipation 12/01/22 01/30/23 Unknown calcium carbonate 500 mg-vitamin 1 tab PO DAILY 12/01/22 01/30/23 12/06/22 D3 5 mcg (200 unit) tablet (Oyster Shell Calcium-Vitamin D3) clotrimazole 1 % topical cream 1 applic topical UD 12/01/22 01/30/23 12/06/22 lorazepam 0.5 mg tablet 0.5 mg PO DAILY PRN anxiety/sleep 12/01/22 01/30/23 Unknown mirtazapine 30 mg tablet (Remeron) 30 mg PO DAILY 12/01/22 01/30/23 12/06/22 multivit,stress formula-zinc tablet 1 tab PO DAILY 12/01/22 01/30/23 12/06/22 vitamin A-vitamin C-vit E-min 1 tab PO DAILY 12/01/22 01/30/23 12/06/22 tablet warfarin 1 mg tablet 1 - 2 mg PO UD 12/01/22 01/30/23 12/06/22 Active Medications Generic Name Dose Route Start Last Admin Trade Name Freq PRN Reason Stop Dose Admin Acetaminophen 650 mg 01/30/23 18:57 02/10/23 11:50 Acetaminophen 325 Mg Tab PO 03/01/23 18:56 650 mg Q4H PRN Administration Pain or Fever Amiodarone HCl 200 mg 01/31/23 21:00 02/19/23 20:44 Amiodarone 200 Mg Tab PO 03/02/23 20:59 200 mg QPM ABIODUN Administration Calcium Citrate 950 mg 02/14/23 11:25 02/20/23 08:59 Calcium Citrate 950 Mg Tab PO 03/16/23 11:24 950 mg BID ABIODUN Administration Clopidogrel Bisulfate 75 mg 02/03/23 09:00 02/20/23 08:59 Clopidogrel Bisulfate 75 Mg Tab PO 03/05/23 08:59 75 mg QAM ABIODUN Administration Docusate Sodium 100 mg 01/31/23 16:30 02/20/23 09:06 Docusate Sodium 100 Mg Cap PO 03/02/23 16:29 Not Given BID ABIODUN Furosemide 40 mg 01/31/23 09:00 02/14/23 09:45 Furosemide 40 Mg Tab PO 03/02/23 08:59 40 mg QAM ABIODUN Administration Furosemide 10 mg 02/17/23 09:00 02/20/23 09:00 Furosemide 20 Mg Tab PO 03/19/23 08:59 10 mg QAM ABIODUN Administration Gabapentin 300 mg 01/30/23 21:00 02/20/23 13:32 Gabapentin 300 Mg Cap PO 03/01/23 20:59 300 mg TID ABIODUN Administration Vancomycin HCl 1,500 mg/ 530 mls @ 200 mls/hr 02/17/23 18:00 02/19/23 20:30 Sodium Chloride IV 02/22/23 23:59 Infused Q24H ABIODUN Infusion Insulin Aspart 0 units 02/13/23 16:30 02/20/23 13:32 Insulin Aspart Per Unit Charge SC 03/15/23 16:29 4 units ACHS ABIODUN Administration Insulin Glargine 5 units 02/01/23 09:00 02/20/23 08:57 Lantus Per Unit Charge SC 03/03/23 08:59 5 units QAM ABIODUN Administration Loratadine 10 mg 01/31/23 09:00 02/20/23 09:01 Loratadine 10 Mg Tab PO 03/02/23 08:59 10 mg QAM ABIODUN Administration Lorazepam 0.5 mg 01/30/23 19:52 02/19/23 20:44 Lorazepam 0.5 Mg Tab PO 03/01/23 19:51 0.5 mg DAILY PRN Administration anxiety/sleep Magnesium Oxide 400 mg 01/31/23 09:00 02/20/23 09:01 Magnesium Oxide 400 Mg Tab PO 03/02/23 08:59 400 mg QAM ABIODUN Administration Metoprolol Succinate 25 mg 01/31/23 09:00 02/20/23 09:01 Metoprolol Succ 25mg Ext Rel Tab PO 03/02/23 08:59 25 mg QAM ABIODUN Administration Mirtazapine 30 mg 01/30/23 21:00 02/19/23 23:50 Mirtazapine Tab 15 Mg Tab PO 03/01/23 20:59 30 mg HS ABIODUN Administration Multivitamins 1 tab 01/31/23 16:30 02/20/23 09:02 Multivitamin Tab PO 03/02/23 16:29 1 tab QAM ABIODUN Administration Oxycodone HCl 5 mg 02/13/23 20:37 02/20/23 01:53 Oxycodone Hcl Ir 5 Mg Tab (Immediate Release) PO 02/27/23 20:36 5 mg Q4H PRN Administration Pain Polyethylene Glycol 17 gm 01/30/23 18:57 02/04/23 09:06 Polyethylene (Miralax) 17 Gm Pack PO 03/01/23 18:56 17 gm DAILY PRN Administration Constipation Potassium Chloride 10 meq 02/19/23 09:00 02/20/23 09:02 Potassium Chloride 10 Meq Tabcr PO 03/21/23 08:59 10 meq DAILY ABIODUN Administration Zolpidem Tartrate 5 mg 01/30/23 20:35 02/19/23 23:50 Zolpidem Tartrate 5 Mg Tab PO 03/01/23 20:59 5 mg HS PRN Administration Insomnia (6) Coronary artery disease Associated angina: without angina Coronary Disease-Associated Artery/Lesion type: [place] artery [place] vs. transplanted heart: [place] heart Qualified Code(s): I25.10 - Atherosclerotic heart disease of [place] coronary artery without angina pectoris (7) Atrial fibrillation Atrial fibrillation type: unspecified Qualified Code(s): I48.91 - Unspecified atrial fibrillation
[2023-02-20] MEDS: WARFARIN SOD 2 MG TAB PO SCH (16:40)
[2023-02-20] MEDS: VANCOMYCIN HCL 1,500 MG in SODIUM CHLORIDE 0.9% 500 ML IV SCH (17:53)
[2023-02-20] MEDS: MIRTAZAPINE TAB 15 MG TAB PO SCH (21:00)
[2023-02-20] MEDS: AMIODARONE 200 MG TAB PO SCH (21:00)
[2023-02-20] MEDS: LORazepam 0.5 MG TAB PO PRN (21:00)
[2023-02-20] MEDS: ZOLPIDEM TARTRATE 5 MG TAB PO PRN (23:19)
--- NOTE | 2023-02-21 07:24 | Hospitalist Progress Note ---
Date of Service February 21, 2023 Assessment & Plan (1) Diabetic infection of left foot: (2) Chronic systolic heart failure: (3) CKD (chronic kidney disease), stage III: (4) Pacemaker: (5) Diabetes mellitus type 2 with complications: (6) Coronary artery disease: (7) Atrial fibrillation: Plan Mr. Thayer is an 87 year old gentleman that presented to the ED on 01/30 per recommendations by wound clinic for evaluation of his non healing foot wound. He was seen in the setting of persistent non healing diabetic ulcers of the 5th metatarsal showing signs of tissue loss and tunneling. He has a history of PAD, CAD, atrial fibrillation on warfarin, diabetes with neuropathy and history of foot wounds. He completed a course of doxycycline 2 weeks [employer]; however, it was noted that the wound was with purulent drainage suggesting signs of deeper infection. Discussion with podiatry was had, ultimately confirmed clean margins. Contacted ID for further abx duration recommendations; however, noted diffuse rash c/w drug eruption across abdomen on 02/15, which resolved with the dis continuation of ampicillin.Plans for vancomycin x 7 days post operatively, EOT 02/22 Discharge delayed due to pending bed availability. 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 Surface wound culture from admission showing pansensitive Enterococcus Patient was previously on empiric Dapto and Zosyn. Seen by ID who recommended IV ampicillin 2g (started on 02/03/2023, d/c 02/15) Bone biopsy and repeat/deep cultures done on 02/06 by podiatry -Bone biopsy pathology consistent with osteomyelitis -Bone and foot sample Cx from 02/06 growing corynebacterium and enterococcus faecalis sensitive to ampicillin POD #5 s/p Left Foot Fifth Ray Resection, ulcer debridement, with plans for OP follow up with Podiatry on 02/20 assuming dispo -Continue Vancomycin EOT 02/22 -Podiatry changed dressing 02/20, per podiatry note: -"no dressing change into please leave the dressing in place that I have provided to him today. I would prefer him not to have any dressing changes while [facility]. And again will follow-up with me on February 27 at 1 PM tomorrow I will evaluate the incision and change his dressings. I discussed this with patient and his home health care [facility] Again as long as he is stable from medicine standpoint and infectious disease I do feel he is stable to be discharged to [facility] at this time. He will remain nonweightbearing to the left foot may use right foot for any pivots and weightbearing when he is transitioning. Patient will follow-up with me arranged on February 27 at 1 PM." #Peripheral arterial occlusive disease status post angioplasty and stenting of left lower extremity by interventional cardiology on 02/02. Recommendations noted: -continue Plavix for 1 month and follow-up with vascular surgery in 2 weeks 03/03 EOT Anticoagulation with warfarin (see below) Continue Plavix #Paroxysmal atrial fibrillation Continue Amiodarone, metoprolol Home dose of Coumadin is 1 mg MWF and 2 mg rest of the week. INR daily,resume home regimen Pacemaker in place #Chronic Heart Failure with Mildly Reduced EF Last ECHO 02/11: LV function mildly reduced. LV wall thickness concentric. EF 45%. Grade I DDx. Lasix held iso ALISSA -Continue lasix 10mg in am #ALISSA on CKD III *resolved Chronic Berman Monitor renal function Avoid nephrotoxic agents as able Continue lasix 10mg in am #DM II with peripheral neuropathy HbA1C: 6.6 Continue Gabapentin Continue insulin per protocol Monitor BGs Diet: HH/DMII DVT Px: Coumadin Dispo: pending placement Admission and Anticipated Discharge Date Admission Date: January 30, 2023 Subjective NAEO Denies any current symptoms. Review of Systems Review of Systems: All systems reviewed & are unremarkable except as noted in Subjective Physical Exam Constitutional: WD/WN, vitals as above Respiratory: normal respiratory effort, lungs clear to auscultation Cardiovascular: RRR, no murmur, no edema Gastrointestinal (Abdomen): normal bowel sounds, soft, nontender, no hepatosplenomegaly Results & Data Results & Data Vital Signs (Past 12 Hours) Vital Signs Temp Pulse Pulse Resp BP BP Pulse Ox 02/21/23 02:47 36.8 C 80 14 141/60 H 98 02/20/23 22:51 36.6 C 52 L 18 144/64 H 95 02/20/23 23:11 68 02/20/23 19:46 37.2 C 70 12 131/76 97 O2 Del Method 02/21/23 02:47 Room Air 02/20/23 22:51 Room Air 02/20/23 23:11 02/20/23 19:46 Room Air Laboratory Results Short CBC 02/21/23 Range/Units 07:05 WBC 7.61 (4.8-10.8) K/ul Hgb 11.8 L (14.0-18.0) g/dl Hct 34.9 L (42.0-52.0) % Plt Count 303 (130-400) K/uL BMP 02/21/23 07:05 Sodium 137 Potassium 3.8 Chloride 103 Carbon Dioxide 28 BUN 20 Creatinine 1.13 Glucose 122 H Calcium 8.0 L Medications Administered Home Medications Medication Instructions Recorded Confirmed Last Taken amiodarone 200 mg tablet 200 mg PO QAM 01/02/18 01/30/23 12/06/22 insulin glargine 100 unit/mL 8 units subcut BID 01/02/18 01/30/23 05/12/22 subcutaneous solution loratadine 10 mg tablet 10 mg PO QAM 01/02/18 01/30/23 12/06/22 magnesium oxide 400 mg (241.3 mg 400 mg PO QAM 01/02/18 01/30/23 12/06/22 magnesium) tablet metoprolol succinate 25 mg 25 mg PO QAM 01/02/18 01/30/23 12/06/22 tablet,extended release 24 hr zolpidem 5 mg tablet (Ambien) 5 mg PO HS 01/02/18 01/30/23 12/06/22 gabapentin 300 mg capsule 300 mg PO TID 03/10/18 01/30/23 12/06/22 docusate sodium 100 mg capsule 100 mg PO BID 04/27/22 01/30/23 12/06/22 (Colace) hydrocodone 5 mg-acetaminophen 325 0.5 tab PO Q12H PRN pain,severe 04/27/22 1 Unknown mg tablet mometasone 0.1 % topical solution 1 applic topical DAILY PRN Itching 04/27/22 01/30/23 Unknown acetaminophen 325 mg capsule 650 mg PO QID PRN PAIN/FEVER 05/10/22 01/30/23 05/12/22 09:57 furosemide 20 mg tablet 40 mg PO QAM 06/28/22 01/30/23 12/06/22 bisacodyl 10 mg rectal suppository 10 mg [place] DAILY PRN Constipation 12/01/22 01/30/23 Unknown calcium carbonate 500 mg-vitamin 1 tab PO DAILY 12/01/22 01/30/23 12/06/22 D3 5 mcg (200 unit) tablet (Oyster Shell Calcium-Vitamin D3) clotrimazole 1 % topical cream 1 applic topical UD 12/01/22 01/30/23 12/06/22 lorazepam 0.5 mg tablet 0.5 mg PO DAILY PRN anxiety/sleep 12/01/22 01/30/23 Unknown mirtazapine 30 mg tablet (Remeron) 30 mg PO DAILY 12/01/22 01/30/23 12/06/22 multivit,stress formula-zinc tablet 1 tab PO DAILY 12/01/22 01/30/23 12/06/22 vitamin A-vitamin C-vit E-min 1 tab PO DAILY 12/01/22 01/30/23 12/06/22 tablet warfarin 1 mg tablet 1 - 2 mg PO UD 12/01/22 01/30/23 12/06/22 Active Medications Generic Name Dose Route Start Last Admin Trade Name Freq PRN Reason Stop Dose Admin Acetaminophen 650 mg 01/30/23 18:57 02/10/23 11:50 Acetaminophen 325 Mg Tab PO 03/01/23 18:56 650 mg Q4H PRN Administration Pain or Fever Amiodarone HCl 200 mg 01/31/23 21:00 02/20/23 21:00 Amiodarone 200 Mg Tab PO 03/02/23 20:59 200 mg QPM BAIODUN Administration Calcium Citrate 950 mg 02/14/23 11:25 02/21/23 09:06 Calcium Citrate 950 Mg Tab PO 03/16/23 11:24 950 mg BID ABIODUN Administration Clopidogrel Bisulfate 75 mg 02/03/23 09:00 02/21/23 09:06 Clopidogrel Bisulfate 75 Mg Tab PO 03/05/23 08:59 75 mg QAM ABIODUN Administration Docusate Sodium 100 mg 01/31/23 16:30 02/21/23 11:07 Docusate Sodium 100 Mg Cap PO 03/02/23 16:29 Not Given BID ABIODUN Furosemide 40 mg 01/31/23 09:00 02/14/23 09:45 Furosemide 40 Mg Tab PO 03/02/23 08:59 40 mg QAM ABIODUN Administration Furosemide 10 mg 02/17/23 09:00 02/21/23 09:06 Furosemide 20 Mg Tab PO 03/19/23 08:59 10 mg QAM ABIODUN Administration Gabapentin 300 mg 01/30/23 21:00 02/21/23 14:48 Gabapentin 300 Mg Cap PO 03/01/23 20:59 300 mg TID ABIODUN Administration Vancomycin HCl 1,000 mg/ 270 mls @ 200 mls/hr 02/21/23 09:00 02/21/23 10:50 Sodium Chloride IV 02/22/23 23:59 Infused Q12 ABIODUN Infusion Insulin Aspart 0 units 02/13/23 16:30 02/21/23 13:46 Insulin Aspart Per Unit Charge SC 03/15/23 16:29 2 units ACHS ABIODUN Administration Insulin Glargine 5 units 02/01/23 09:00 02/21/23 09:18 Lantus Per Unit Charge SC 03/03/23 08:59 5 units QAM ABIODUN Administration Loratadine 10 mg 01/31/23 09:00 02/21/23 09:06 Loratadine 10 Mg Tab PO 03/02/23 08:59 10 mg QAM ABIODUN Administration Lorazepam 0.5 mg 01/30/23 19:52 02/20/23 21:00 Lorazepam 0.5 Mg Tab PO 03/01/23 19:51 0.5 mg DAILY PRN Administration anxiety/sleep Magnesium Oxide 400 mg 01/31/23 09:00 02/21/23 09:06 Magnesium Oxide 400 Mg Tab PO 03/02/23 08:59 400 mg QAM ABIODUN Administration Metoprolol Succinate 25 mg 01/31/23 09:00 02/21/23 09:07 Metoprolol Succ 25mg Ext Rel Tab PO 03/02/23 08:59 25 mg QAM ABIODUN Administration Mirtazapine 30 mg 01/30/23 21:00 02/20/23 21:00 Mirtazapine Tab 15 Mg Tab PO 03/01/23 20:59 30 mg HS ABIODUN Administration Multivitamins 1 tab 01/31/23 16:30 02/21/23 09:07 Multivitamin Tab PO 03/02/23 16:29 1 tab QAM ABIODUN Administration Oxycodone HCl 5 mg 02/13/23 20:37 02/20/23 23:19 Oxycodone Hcl Ir 5 Mg Tab (Immediate Release) PO 02/27/23 20:36 5 mg Q4H PRN Administration Pain Polyethylene Glycol 17 gm 01/30/23 18:57 02/04/23 09:06 Polyethylene (Miralax) 17 Gm Pack PO 03/01/23 18:56 17 gm DAILY PRN Administration Constipation Potassium Chloride 10 meq 02/19/23 09:00 02/21/23 09:07 Potassium Chloride 10 Meq Tabcr PO 03/21/23 08:59 10 meq DAILY ABIODUN Administration Zolpidem Tartrate 5 mg 01/30/23 20:35 02/20/23 23:19 Zolpidem Tartrate 5 Mg Tab PO 03/01/23 20:59 5 mg HS PRN Administration Insomnia (6) Coronary artery disease Associated angina: without angina Coronary Disease-Associated Artery/Lesion type: [place] artery [place] vs. transplanted heart: [place] heart Qualified Code(s): I25.10 - Atherosclerotic heart disease of [place] coronary artery without angina pectoris (7) Atrial fibrillation Atrial fibrillation type: unspecified Qualified Code(s): I48.91 - Unspecified atrial fibrillation
[2023-02-21 07:36] LABS: Hematocrit (blood only) 34.9 % (42.0-52.0); Hemoglobin 11.8 g/dl (14.0-18.0); Mean Corpuscular Hemoglobin 31.6 pg (25.0-34.0); Mean Corpuscular Hgb Conc 33.8 g/dL (32.0-36.0); Mean Corpuscular Volume 93.3 fL (80.0-100.0); Mean Platelet Volume 8.8 fL (9.4-12.4); Platelet Count 303 K/uL (130-400); RDW Coefficient of Variation 16.5 % (11.5-14.5); RDW Standard Deviation 55.9 fL (36.4-46.3); Red Blood Count 3.74 M/uL (4.70-6.10); White Blood Count 7.61 K/ul (4.8-10.8)
[2023-02-21 08:03] LABS: BUN Creatinine Ratio 17.7 (10-20); Creatinine Clr Calc Pharmacy 55.9 ml/min; Est GFR (African American) 67.4 ml/min; Est GFR (Non-African American) 58.1 ml/min; Potassium 3.8 mmol/L (3.5-5.1)
[2023-02-21 08:08] LABS: INR 2.1 (0.9-1.1); Prothrombin Time 21.8 Seconds (9.0-12.0)
--- NOTE | 2023-02-21 08:22 | Pharmacy Report ---
Pharmacy PK ABX Note - Date of Service February 21, 2023 - Assessment and Plan Assessment 87 year old M on day # 21 of hospitalization for infected diabetic left foot with osteomyelitis. ID consulted. s/p bone biopsy and repeat/deep cultures on 02/06 by podiatry -Bone biopsy pathology consistent with osteomyelitis -Bone and foot sample Cx from 02/06 growing corynebacterium and enterococcus faecalis sensitive to ampicillin s/p Left Foot Fifth Ray Resection, ulcer debridement on 02/13 Treated with ampicillin 02/03 - 02/15. Ampicillin discontinued due to new pruritic eruption on abdomen. Ordered vancomycin IV in the meantime until antibiotic regimen can be further discussed with ID service. - Per Dr. Hunt, ID rec 7 days of vanc from 02/15. Prior auth pending. Plan Vancomycin * Renal fxn continues to recover to baseline. * Level of 14.6 mcg/mL today associated with an AUC/OSMAN of 421 mg/L.hr * Will increase to vancomycin 1 gm IV q12 which is predicted to achieve target AUC/OSMAN of 400-600 mg/L.hr with ~15% risk nephrotoxicity * Vancomycin to discontinue tomorrow (7 day course) Pharmacy will continue to follow and will adjust dose/frequency as necessary. Thank you.
[2023-02-21] MEDS: FUROSEMIDE 20 MG TAB PO SCH (09:06)
[2023-02-21] MEDS: LORATADINE 10 MG TAB PO SCH (09:06)
[2023-02-21] MEDS: MAGNESIUM OXIDE 400 MG TAB PO SCH (09:06)
[2023-02-21] MEDS: CALCIUM CITRATE 950 MG TAB PO SCH ×2 (09:06→20:53)
[2023-02-21] MEDS: CLOPIDOGREL BISULFATE 75 MG TAB PO SCH (09:06)
[2023-02-21] MEDS: GABAPENTIN 300 MG CAP PO SCH ×3 (09:06→20:52)
[2023-02-21] MEDS: METOPROLOL SUCC 25MG EXT REL TAB PO SCH (09:07)
[2023-02-21] MEDS: MULTIVITAMIN TAB PO SCH (09:07)
[2023-02-21] MEDS: POTASSIUM CHLORIDE 10 MEQ TABCR PO SCH (09:07)
[2023-02-21] MEDS: LANTUS PER UNIT CHARGE SC SCH (09:18)
[2023-02-21] MEDS: INSULIN ASPART PER UNIT CHARGE SC SCH ×4 (09:19→20:46)
[2023-02-21] MEDS: VANCOMYCIN HCL 1,000 MG in SODIUM CHLORIDE 0.9% 250 ML IV SCH ×2 (09:21→20:52)
[2023-02-21] MEDS: DOCUSATE SODIUM 100 MG CAP PO SCH ×2 (11:07→20:52)
[2023-02-21] MEDS ORDERED: WARFARIN SOD 1 MG TAB PO SCH (16:00)
[2023-02-21] MEDS ORDERED: WARFARIN SOD 3 MG TAB PO ONE (17:47)
[2023-02-21] MEDS: LORazepam 0.5 MG TAB PO PRN (20:46)
[2023-02-21] MEDS: WARFARIN SOD 2 MG TAB PO SCH (20:52)
[2023-02-21] MEDS: AMIODARONE 200 MG TAB PO SCH (20:53)
[2023-02-21] MEDS: MIRTAZAPINE TAB 15 MG TAB PO SCH (20:54)
[2023-02-22] MEDS: oxyCODONE HCL IR 5 MG TAB (IMMEDIATE RELEASE) PO PRN ×2 (00:04→23:36)
[2023-02-22] MEDS: ZOLPIDEM TARTRATE 5 MG TAB PO PRN ×2 (00:04→23:36)
[2023-02-22 07:39] LABS: Hematocrit (blood only) 32.8 % (42.0-52.0); Mean Corpuscular Hemoglobin 31.1 pg (25.0-34.0); Mean Corpuscular Hgb Conc 33.5 g/dL (32.0-36.0); Mean Corpuscular Volume 92.7 fL (80.0-100.0); Mean Platelet Volume 9.3 fL (9.4-12.4); Platelet Count 248 K/uL (130-400); RDW Coefficient of Variation 16.4 % (11.5-14.5); RDW Standard Deviation 55.6 fL (36.4-46.3); Red Blood Count 3.54 M/uL (4.70-6.10); White Blood Count 6.95 K/ul (4.8-10.8)
[2023-02-22 07:55] LABS: BUN Creatinine Ratio 17.4 (10-20); Calcium 7.9 mg/dl (8.6-10.3); Creatinine Clr Calc Pharmacy 55.2 ml/min; Est GFR (African American) 65.9 ml/min; Est GFR (Non-African American) 56.9 ml/min; Potassium 3.7 mmol/L (3.5-5.1)
[2023-02-22 08:07] LABS: Prothrombin Time 20.9 Seconds (9.0-12.0)
[2023-02-22] MEDS: INSULIN ASPART PER UNIT CHARGE SC SCH ×4 (09:20→21:00)
[2023-02-22] MEDS: LANTUS PER UNIT CHARGE SC SCH (09:20)
[2023-02-22] MEDS: CALCIUM CITRATE 950 MG TAB PO SCH ×2 (09:21→20:19)
[2023-02-22] MEDS: CLOPIDOGREL BISULFATE 75 MG TAB PO SCH (09:21)
[2023-02-22] MEDS: DOCUSATE SODIUM 100 MG CAP PO SCH ×2 (09:22→20:18)
[2023-02-22] MEDS: FUROSEMIDE 20 MG TAB PO SCH (09:22)
[2023-02-22] MEDS: LORATADINE 10 MG TAB PO SCH (09:23)
[2023-02-22] MEDS: GABAPENTIN 300 MG CAP PO SCH ×3 (09:23→20:19)
[2023-02-22] MEDS: MAGNESIUM OXIDE 400 MG TAB PO SCH (09:23)
[2023-02-22] MEDS: POTASSIUM CHLORIDE 10 MEQ TABCR PO SCH (09:24)
[2023-02-22] MEDS: MULTIVITAMIN TAB PO SCH (09:24)
[2023-02-22] MEDS: METOPROLOL SUCC 25MG EXT REL TAB PO SCH (09:24)
[2023-02-22] MEDS: VANCOMYCIN HCL 1,000 MG in SODIUM CHLORIDE 0.9% 250 ML IV SCH ×2 (09:51→20:20)
--- NOTE | 2023-02-22 14:48 | Hospitalist Progress Note ---
Date of Service February 22, 2023 Assessment & Plan (1) Diabetic infection of left foot: (2) Chronic systolic heart failure: (3) CKD (chronic kidney disease), stage III: (4) Pacemaker: (5) Diabetes mellitus type 2 with complications: (6) Coronary artery disease: (7) Atrial fibrillation: Plan Mr. Thayer is an 87 year old gentleman that presented to the ED on 01/30 per recommendations by wound clinic for evaluation of his non healing foot wound. He was seen in the setting of persistent non healing diabetic ulcers of the 5th metatarsal showing signs of tissue loss and tunneling. He has a history of PAD, CAD, atrial fibrillation on warfarin, diabetes with neuropathy and history of foot wounds. 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 Discussion with podiatry was had, ultimately confirmed clean margins. Contacted ID for further abx duration recommendations; however, noted diffuse rash c/w drug eruption across abdomen on 02/15, which resolved with the dis continuation of ampicillin.Plans for vancomycin x 7 days post operatively, EOT 02/22 Discharge delayed due to pending bed availability. 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 Surface wound culture from admission showing pansensitive Enterococcus Patient was previously on empiric Dapto and Zosyn. Seen by ID who recommended IV ampicillin 2g (started on 02/03/2023, d/c 02/15) Bone biopsy and repeat/deep cultures done on 02/06 by podiatry -Bone biopsy pathology consistent with osteomyelitis -Bone and foot sample Cx from 02/06 growing corynebacterium and enterococcus faecalis sensitive to ampicillin POD #5 s/p Left Foot Fifth Ray Resection, ulcer debridement, with plans for OP follow up with Podiatry on 02/20 assuming dispo -Continue Vancomycin EOT 02/22 -Podiatry changed dressing 02/20, per podiatry note: -"no dressing change into please leave the dressing in place that I have provided to him today. I would prefer him not to have any dressing changes while [facility]. And again will follow-up with me on February 27 at 1 PM tomorrow I will evaluate the incision and change his dressings. I discussed this with patient and [facility] Again as long as he is stable from medicine standpoint and infectious disease I do feel he is stable to be discharged to [facility] at this time. He will remain nonweightbearing to the left foot may use right foot for any pivots and weightbearing when he is transitioning. Patient will follow-up with me arranged on February 27 at 1 PM." #Peripheral arterial occlusive disease status post angioplasty and stenting of left lower extremity by interventional cardiology on 02/02. Recommendations noted: -continue Plavix for 1 month and follow-up with vascular surgery in 2 weeks 03/03 EOT Anticoagulation with warfarin (see below) Continue Plavix #Paroxysmal atrial fibrillation Continue Amiodarone, metoprolol Home dose of Coumadin is 1 mg MWF and 2 mg rest of the week. INR daily,resume home regimen Pacemaker in place #Chronic Heart Failure with Mildly Reduced EF Last ECHO 02/11: LV function mildly reduced. LV wall thickness concentric. EF 45%. Grade I DDx. Lasix held iso ALISSA -Continue lasix 10mg in am #ALISSA on CKD III *resolved Chronic Berman Monitor renal function Avoid nephrotoxic agents as able Continue lasix 10mg in am #DM II with peripheral neuropathy HbA1C: 6.6 Continue Gabapentin Continue insulin per protocol Monitor BGs Diet: HH/DMII DVT Px: Coumadin Dispo: pending placement I spent a total [id number] coordinating, documenting, and providing care for this patient excluding time spent in the performance of separately billed [employer] ices Lulu Ewing DO [facility] Hospitalist Admission and Anticipated Discharge Date Admission Date: January 30, 2023 Subjective 87 yo M admitted with diabetic infection of the left foot "It's terribly boring" Expressed frustration with limited ability to ambulate worked with PT today reports the "antibiotic is strong" and "causes his face to flush" found rash on his back and neck, which he states was ongoing chronically prior to the antibiotic being started He doesn't want to entertain changing the antibiotic at this point given he is almost complete with the course reports facial flushing with administration of the antibiotic Denies foot pain outside of "the usual" well managed with the current oral therapy Tolerating PO and reports last BM was yesterday. Physical Exam Physical Exam: CONSTITUTIONAL: WNWD, vitals as above, generally well-appearing EYES: normal conjunctivae, no scleral icterus ENT: external ear and nose normal, oropharynx clear NECK: trachea midline, no lymphadenopathy RESPIRATORY: clear to auscultation bilaterally, no crackles, rales or wheezes, normal respiratory effort CARDIOVASCULAR: regular rate and rhythm, no peripheral edema. CHEST: inspection of chest was normal GASTROINTESTINAL: soft, nontender, ND, no guarding MUSCULOSKELETAL: no gross focal deficits, head is normocephalic and atraumatic, surgical dressing in place on left foot. SKIN: warm and dry, morbilliform erythematous rash on his back and posterior neck, not present on abdomen or chest today. NEUROLOGIC: CN 2-12 grossly intact, no sensory deficit, normal cognition, normal speech, no tremor PSYCHIATRIC: alert cooperative and oriented to person, place and time. Euthymic mood, makes good eye contact, language grossly intact, recent and remote memory grossly intact. Results & Data Results & Data Vital Signs (Past 12 Hours) Vital Signs Temp Pulse Pulse Resp BP BP Pulse Ox 02/22/23 12:09 36.8 C 70 18 117/50 L 94 02/22/23 08:01 36.6 C 67 18 121/69 96 02/22/23 07:16 64 02/22/23 03:30 36.7 C 42 L 20 103/54 L 92 O2 Del Method 02/22/23 12:09 Room Air 02/22/23 08:01 Room Air 02/22/23 07:16 02/22/23 03:30 Room Air Laboratory Results Short CBC 02/22/23 Range/Units 06:36 WBC 6.95 (4.8-10.8) K/ul Hgb 11.0 L (14.0-18.0) g/dl Hct 32.8 L (42.0-52.0) % Plt Count 248 (130-400) K/uL BMP 02/22/23 06:36 Sodium 137 Potassium 3.7 Chloride 104 Carbon Dioxide 27 BUN 20 Creatinine 1.15 Glucose 102 H Calcium 7.9 L Medications Administered Current Inpatient Medications Acetaminophen (Acetaminophen 325 Mg Tab) 650 mg PO Q4H PRN PRN Reason: Pain or Fever Stop: 03/01/23 18:56 Last Admin: 02/10/23 11:50 Dose: 650 mg Al Hydrox/Mg Hydrox/Simethicone (Aluminum/Magnesium Susp 30 Ml Udc) 15 ml PO Q4H PRN PRN Reason: Dyspepsia Stop: 03/01/23 18:56 Amiodarone HCl (Amiodarone 200 Mg Tab) 200 mg PO QPM [facility] Stop: 03/02/23 20:59 Last Admin: 02/21/23 20:53 Dose: 200 mg Bisacodyl (Bisacodyl 10 Mg Supp) 10 mg [place] DAILY PRN PRN Reason: Constipation Stop: 03/02/23 16:27 Calcium Citrate (Calcium Citrate 950 Mg Tab) 950 mg PO BID [facility] Stop: 03/16/23 11:24 Last Admin: 02/22/23 09:21 Dose: 950 mg Clopidogrel Bisulfate (Clopidogrel Bisulfate 75 Mg Tab) 75 mg PO QAM [facility] Stop: 03/05/23 08:59 Last Admin: 02/22/23 09:21 Dose: 75 mg Dextrose (Dextrose 50% 50 Ml Syringe) 25 - 50 ml IV UD PRN; Protocol PRN Reason: Hypoglycemia Protocol Stop: 03/01/23 19:49 Docusate Sodium (Docusate Sodium 100 Mg Cap) 100 mg PO BID [facility] Stop: 03/02/23 16:29 Last Admin: 02/22/23 09:22 Dose: Not Given Furosemide (Furosemide 40 Mg Tab) 40 mg PO QAM [facility] Stop: 03/02/23 08:59 Last Admin: 02/14/23 09:45 Dose: 40 mg Furosemide (Furosemide 20 Mg Tab) 10 mg PO QAM [facility] Stop: 03/19/23 08:59 Last Admin: 02/22/23 09:22 Dose: 10 mg Gabapentin (Gabapentin 300 Mg Cap) 300 mg PO TID [facility] Stop: 03/01/23 20:59 Last Admin: 02/22/23 14:13 Dose: 300 mg Glucagon (Glucagon For Inj 1 Mg Vial) 1 mg SQ UD PRN; Protocol PRN Reason: Hypoglycemia Protocol Stop: 03/01/23 19:49 Glucose (Glucose 10 Tab/Tube) 4 - 8 tab PO UD PRN; Protocol PRN Reason: Hypoglycemia Treatment Stop: 03/01/23 19:49 Glucose (Glucose 40% Gel 15 Gm Tube) 15 - 30 gm PO UD PRN; Protocol PRN Reason: Hypoglycemia Protocol Stop: 03/01/23 19:49 Vancomycin HCl 1,000 mg/ (Sodium Chloride) 270 mls @ 200 mls/hr IV Q12 [facility] Stop: 02/22/23 23:59 Last Infusion: 02/22/23 12:47 Dose: Infused Insulin Aspart (Insulin Aspart Per Unit Charge) 0 units SC ACHS [facility] Stop: 03/15/23 16:29 Last Admin: 02/22/23 12:50 Dose: 5 units Insulin Glargine (Lantus Per Unit Charge) [facility] Stop: 03/03/23 08:59 Last Admin: 02/22/23 09:20 Dose: 5 units Loratadine (Loratadine 10 Mg Tab) [facility] Stop: 03/02/23 08:59 Last Admin: 02/22/23 09:23 Dose: 10 mg Lorazepam (Lorazepam 0.5 Mg Tab) 0.5 mg PO DAILY PRN PRN Reason: anxiety/sleep Stop: 03/01/23 19:51 Last Admin: 02/21/23 20:46 Dose: 0.5 mg Magnesium Hydroxide (Magnesium Hydroxide Susp 30 Ml Udc) 30 ml PO Q12H PRN PRN Reason: Constipation Stop: 03/01/23 18:56 Magnesium Oxide (Magnesium Oxide 400 Mg Tab) [facility] Stop: 03/02/23 08:59 Last Admin: 02/22/23 09:23 Dose: 400 mg Metoprolol Succinate (Metoprolol Succ 25mg Ext Rel Tab) [facility] Stop: 03/02/23 08:59 Last Admin: 02/22/23 09:24 Dose: 25 mg Miconazole Nitrate (Miconazole Nitrate Powder 85 Gm) 1 appln EXT PRN PRN PRN Reason: Rash Stop: 03/09/23 15:55 Mirtazapine (Mirtazapine Tab 15 Mg Tab) 30 mg PO HS [facility] Stop: 03/01/23 20:59 Last Admin: 02/21/23 20:54 Dose: 30 mg Miscellaneous (Carbohydrates For Hypoglycemia ) 15 - 30 gm PO UD PRN PRN Reason: Hypoglycemia Protocol Stop: 03/01/23 19:49 Miscellaneous Information (Vancomycin Consult Active) 1 each N/A UD PRN PRN Reason: Consult Stop: 02/22/23 23:59 Multivitamins (Multivitamin Tab) 1 tab PO QAM [facility] Stop: 03/02/23 16:29 Last Admin: 02/22/23 09:24 Dose: 1 tab Ondansetron HCl (Ondansetron Inj 2 Mg/Ml 2 Ml Vial) 4 mg IV Q6H PRN PRN Reason: Nausea Stop: 03/01/23 18:56 Oxycodone HCl (Oxycodone Hcl Ir 5 Mg Tab (Immediate Release)) 5 mg PO Q4H PRN PRN Reason: Pain Stop: 02/27/23 20:36 Last Admin: 02/22/23 00:04 Dose: 5 mg Polyethylene Glycol (Polyethylene (Miralax) 17 Gm Pack) 17 gm PO DAILY PRN PRN Reason: Constipation Stop: 03/01/23 18:56 Last Admin: 02/04/23 09:06 Dose: 17 gm Potassium Chloride (Potassium Chloride 10 Meq Tabcr) 10 meq PO DAILY [facility] Stop: 03/21/23 08:59 Last Admin: 02/22/23 09:24 Dose: 10 meq Warfarin Sodium (Warfarin Sod 2 Mg Tab) 2 mg PO DAILY@1600 [facility] Stop: 03/24/23 15:59 Zolpidem Tartrate (Zolpidem Tartrate 5 Mg Tab) 5 mg PO HS PRN PRN Reason: Insomnia Stop: 03/01/23 20:59 Last Admin: 02/22/23 00:04 Dose: 5 mg (6) Coronary artery disease Associated angina: without angina Coronary Disease-Associated Artery/Lesion type: [place] artery [place] vs. transplanted heart: [place] heart Qualified Code(s): I25.10 - Atherosclerotic heart disease of [place] coronary artery without angina pectoris (7) Atrial fibrillation Atrial fibrillation type: unspecified Qualified Code(s): I48.91 - Unspecified atrial fibrillation
[2023-02-22] MEDS: WARFARIN SOD 2 MG TAB PO SCH (16:25)
[2023-02-22] MEDS: LORazepam 0.5 MG TAB PO PRN (20:18)
[2023-02-22] MEDS: MIRTAZAPINE TAB 15 MG TAB PO SCH (20:18)
[2023-02-22] MEDS: AMIODARONE 200 MG TAB PO SCH (20:19)
[2023-02-23 07:05] LABS: INR 2.3 (0.9-1.1); Prothrombin Time 24.1 Seconds (9.0-12.0)
[2023-02-23] MEDS: GABAPENTIN 300 MG CAP PO SCH ×3 (08:27→20:42)
[2023-02-23] MEDS: CALCIUM CITRATE 950 MG TAB PO SCH ×2 (08:27→20:42)
[2023-02-23] MEDS: POTASSIUM CHLORIDE 10 MEQ TABCR PO SCH (08:28)
[2023-02-23] MEDS: FUROSEMIDE 20 MG TAB PO SCH (08:28)
[2023-02-23] MEDS: MULTIVITAMIN TAB PO SCH (08:28)
[2023-02-23] MEDS: CLOPIDOGREL BISULFATE 75 MG TAB PO SCH (08:28)
[2023-02-23] MEDS: METOPROLOL SUCC 25MG EXT REL TAB PO SCH (08:28)
[2023-02-23] MEDS: LORATADINE 10 MG TAB PO SCH (08:28)
[2023-02-23] MEDS: MAGNESIUM OXIDE 400 MG TAB PO SCH (08:28)
[2023-02-23] MEDS: INSULIN ASPART PER UNIT CHARGE SC SCH ×4 (09:33→20:43)
[2023-02-23] MEDS: LANTUS PER UNIT CHARGE SC SCH (09:34)
[2023-02-23] MEDS: DOCUSATE SODIUM 100 MG CAP PO SCH ×2 (09:34→20:41)
--- NOTE | 2023-02-23 09:41 | Hospitalist Progress Note ---
Date of Service February 23, 2023 Assessment & Plan (1) Diabetic infection of left foot: (2) Chronic systolic heart failure: (3) CKD (chronic kidney disease), stage III: (4) Pacemaker: (5) Diabetes mellitus type 2 with complications: (6) Coronary artery disease: (7) Atrial fibrillation: Plan Mr. Thayer is an 87 year old gentleman that presented to the ED on 01/30 per recommendations by wound clinic for evaluation of his non healing foot wound. He was seen in the setting of persistent non healing diabetic ulcers of the 5th metatarsal showing signs of tissue loss and tunneling. He has a history of PAD, CAD, atrial fibrillation on warfarin, diabetes with neuropathy and history of foot wounds. He completed a course of doxycycline 2 weeks [employer]; however, it was noted that the wound was with purulent drainage suggesting signs of deeper infection. Discussion with podiatry was had, ultimately confirmed clean margins. Contacted ID for further abx duration recommendations; however, noted diffuse rash c/w drug eruption across abdomen on 02/15, which resolved with the discontinuation of ampicillin.Plans for vancomycin x 7 days post operatively, EOT 02/22 Discharge delayed due to pending bed availability. 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 Surface wound culture from admission showing pansensitive Enterococcus Patient was previously on empiric Dapto and Zosyn. Seen by ID who recommended IV ampicillin 2g (started on 02/03/2023, d/c 02/15) Bone biopsy and repeat/deep cultures done on 02/06 by podiatry -Bone biopsy pathology consistent with osteomyelitis -Bone and foot sample Cx from 02/06 growing corynebacterium and enterococcus faecalis sensitive to ampicillin POD #5 s/p Left Foot Fifth Ray Resection, ulcer debridement, with plans for OP follow up with Podiatry on 02/20 assuming dispo -Continue Vancomycin EOT 02/22 -Podiatry changed dressing 02/20, per podiatry note: -"no dressing change into please leave the dressing in place that I have provided to him today. I would prefer him not to have any dressing changes while [facility]. And again will follow-up with me on February 27 at 1 PM tomorrow I will evaluate the incision and change his dressings. I discussed this with patient and his home health care provider who is present at visit today. Again as long as he is stable from medicine standpoint and infectious disease I do feel he is stable to be discharged to [facility] at this time. He will remain nonweightbearing to the left foot may use right foot for any pivots and weightbearing when he is transitioning. Patient will follow-up with me arranged on February 27 at 1 PM." #Peripheral arterial occlusive disease status post angioplasty and stenting of left lower extremity by interventional cardiology on 02/02. Recommendations noted: -continue Plavix for 1 month and follow-up with vascular surgery in 2 weeks 03/03 EOT Anticoagulation with warfarin (see below) Continue Plavix #Paroxysmal atrial fibrillation Continue Amiodarone, metoprolol Home dose of Coumadin is 1 mg MWF and 2 mg rest of the week. INR daily,resume home regimen Pacemaker in place #Chronic Heart Failure with Mildly Reduced EF Last ECHO 02/11: LV function mildly reduced. LV wall thickness concentric. EF 45%. Grade I DDx. Lasix held iso ALISSA -Continue lasix 10mg in am #ALISSA on CKD III *resolved Chronic Berman Monitor renal function Avoid nephrotoxic agents as able Continue lasix 10mg in am #DM II with peripheral neuropathy HbA1C: 6.6 Continue Gabapentin Continue insulin per protocol Monitor BGs Diet: HH/DMII DVT Px: Coumadin Dispo: pending placement Lulu Ewing DO [facility] Hospitalist Admission and Anticipated Discharge Date Admission Date: January 30, 2023 Subjective 87 yo M admitted with diabetic infection of the left foot no issues today denies pain tolerating PO rash on back is improved and he denies any itching discussed his plan for [facility] on Monday Physical Exam Physical Exam: CONSTITUTIONAL: WNWD, vitals as above, generally well-appearing EYES: normal conjunctivae, no scleral icterus ENT: external ear and nose normal, oropharynx clear NECK: trachea midline, no lymphadenopathy RESPIRATORY: clear to auscultation bilaterally, no crackles, rales or wheezes, normal respiratory effort CARDIOVASCULAR: regular rate and rhythm, no peripheral edema. CHEST: inspection of chest was normal GASTROINTESTINAL: soft, nontender, ND, no guarding MUSCULOSKELETAL: no gross focal deficits, head is normocephalic and atraumatic, surgical dressing in place on left foot. SKIN: warm and dry, morbilliform erythematous rash on his back and posterior neck, not present on abdomen or chest today-improved NEUROLOGIC: CN 2-12 grossly intact, no sensory deficit, normal cognition, normal speech, no tremor PSYCHIATRIC: alert cooperative and oriented to person, place and time. Euthymic mood, makes good eye contact, language grossly intact, recent and robbie te memory grossly intact. Results & Data Results & Data Vital Signs (Past 12 Hours) Vital Signs Temp Pulse Pulse Resp BP Pulse Ox O2 Del Method 02/23/23 08:08 36.5 C 66 18 125/73 95 Room Air 02/23/23 07:25 65 02/23/23 03:07 36.9 C 68 18 100/52 L 97 Room Air 02/23/23 00:46 Room Air 02/22/23 22:45 36.9 C 67 20 118/61 95 Room Air 02/22/23 21:59 65 Medications Administered Current Inpatient Medications Acetaminophen (Acetaminophen 325 Mg Tab) 650 mg PO Q4H PRN PRN Reason: Pain or Fever Stop: 03/01/23 18:56 Last Admin: 02/10/23 11:50 Dose: 650 mg Al Hydrox/Mg Hydrox/Simethicone (Aluminum/Magnesium Susp 30 Ml Udc) 15 ml PO Q4H PRN PRN Reason: Dyspepsia Stop: 03/01/23 18:56 Amiodarone HCl (Amiodarone 200 Mg Tab) 200 mg PO QPM [facility] Stop: 03/02/23 20:59 Last Admin: 02/22/23 20:19 Dose: 200 mg Bisacodyl (Bisacodyl 10 Mg Supp) 10 mg PA DAILY PRN PRN Reason: Constipation Stop: 03/02/23 16:27 Calcium Citrate (Calcium Citrate 950 Mg Tab) 950 mg PO BID [facility] Stop: 03/16/23 11:24 Last Admin: 02/23/23 08:27 Dose: 950 mg Clopidogrel Bisulfate (Clopidogrel Bisulfate 75 Mg Tab) 75 mg PO QAM [facility] Stop: 03/05/23 08:59 Last Admin: 02/23/23 08:28 Dose: 75 mg Dextrose (Dextrose 50% 50 Ml Syringe) 25 - 50 ml IV UD PRN; Protocol PRN Reason: Hypoglycemia Protocol Stop: 03/01/23 19:49 Docusate Sodium (Docusate Sodium 100 Mg Cap) 100 mg PO BID [facility] Stop: 03/02/23 16:29 Last Admin: 02/23/23 09:34 Dose: 100 mg Furosemide (Furosemide 40 Mg Tab) 40 mg PO QAM [facility] Stop: 03/02/23 08:59 Last Admin: 02/14/23 09:45 Dose: 40 mg Furosemide (Furosemide 20 Mg Tab) 10 mg PO QAM [facility] Stop: 03/19/23 08:59 Last Admin: 02/23/23 08:28 Dose: 10 mg Gabapentin (Gabapentin 300 Mg Cap) 300 mg PO TID [facility] Stop: 03/01/23 20:59 Last Admin: 02/23/23 08:27 Dose: 300 mg Glucagon (Glucagon For Inj 1 Mg Vial) 1 mg SQ UD PRN; Protocol PRN Reason: Hypoglycemia Protocol Stop: 03/01/23 19:49 Glucose (Glucose 10 Tab/Tube) 4 - 8 tab PO UD PRN; Protocol PRN Reason: Hypoglycemia Treatment Stop: 03/01/23 19:49 Glucose (Glucose 40% Gel 15 Gm Tube) 15 - 30 gm PO UD PRN; Protocol PRN Reason: Hypoglycemia Protocol Stop: 03/01/23 19:49 Insulin Aspart (Insulin Aspart Per Unit Charge) 0 units SC ACHS [facility] Stop: 03/15/23 16:29 Last Admin: 02/23/23 09:33 Dose: 3 units Insulin Glargine (Lantus Per Unit Charge) 5 units SC QAM [facility] Stop: 03/03/23 08:59 Last Admin: 02/23/23 09:34 Dose: 5 units Loratadine (Loratadine 10 Mg Tab) 10 mg PO QAM [facility] Stop: 03/02/23 08:59 Last Admin: 02/23/23 08:28 Dose: 10 mg Lorazepam (Lorazepam 0.5 Mg Tab) 0.5 mg PO DAILY PRN PRN Reason: anxiety/sleep Stop: 03/01/23 19:51 Last Admin: 02/22/23 20:18 Dose: 0.5 mg Magnesium Hydroxide (Magnesium Hydroxide Susp 30 Ml Udc) 30 ml PO Q12H PRN PRN Reason: Constipation Stop: 03/01/23 18:56 Magnesium Oxide (Magnesium Oxide 400 Mg Tab) [facility] [place]: 03/02/23 08:59 Last Admin: 02/23/23 08:28 Dose: 400 mg Metoprolol Succinate (Metoprolol Succ 25mg Ext Rel Tab) [facility] [place] Stop: 03/02/23 08:59 Last Admin: 02/23/23 08:28 Dose: 25 mg Miconazole Nitrate (Miconazole Nitrate Powder 85 Gm) 1 appln EXT PRN PRN PRN Reason: Rash Stop: 03/09/23 15:55 Mirtazapine (Mirtazapine Tab 15 Mg Tab) 30 mg PO HS [facility] Stop: 03/01/23 20:59 Last Admin: 02/22/23 20:18 Dose: 30 mg Miscellaneous (Carbohydrates For Hypoglycemia ) 15 - 30 gm PO UD PRN PRN Reason: Hypoglycemia Protocol Stop: 03/01/23 19:49 Multivitamins (Multivitamin Tab) 1 tab PO [facility] Stop: 03/02/23 16:29 Last Admin: 02/23/23 08:28 Dose: 1 tab Ondansetron HCl (Ondansetron Inj 2 Mg/Ml 2 Ml Vial) 4 mg IV Q6H PRN PRN Reason: Nausea Stop: 03/01/23 18:56 Oxycodone HCl (Oxycodone Hcl Ir 5 Mg Tab (Immediate Release)) 5 mg PO Q4H PRN PRN Reason: Pain Stop: 02/27/23 20:36 Last Admin: 02/22/23 23:36 Dose: 5 mg Polyethylene Glycol (Polyethylene (Miralax) 17 Gm Pack) 17 gm PO DAILY PRN PRN Reason: Constipation Stop: 03/01/23 18:56 Last Admin: 02/04/23 09:06 Dose: 17 gm Potassium Chloride (Potassium Chloride 10 Meq Tabcr) 10 meq PO DAILY [facility] Stop: 03/21/23 08:59 Last Admin: 02/23/23 08:28 Dose: 10 meq Warfarin Sodium (Warfarin Sod 2 Mg Tab) 2 mg PO DAILY@1600 [facility] Stop: 03/24/23 15:59 Last Admin: 02/22/23 16:25 Dose: 2 mg Zolpidem Tartrate (Zolpidem Tartrate 5 Mg Tab) 5 mg PO HS PRN PRN Reason: Insomnia Stop: 03/01/23 20:59 Last Admin: 02/22/23 23:36 Dose: 5 mg (6) Coronary artery disease Associated angina: without angina Coronary Disease-Associated Artery/Lesion type: [place] artery [place] vs. transplanted heart: [place] heart Qualified Code(s): I25.10 - Atherosclerotic heart disease of [place] coronary artery without angina pectoris (7) Atrial fibrillation Atrial fibrillation type: unspecified Qualified Code(s): I48.91 - Unspecified atrial fibrillation
[2023-02-23] MEDS: WARFARIN SOD 2 MG TAB PO SCH (16:57)
[2023-02-23] MEDS: AMIODARONE 200 MG TAB PO SCH (20:42)
[2023-02-23] MEDS: MIRTAZAPINE TAB 15 MG TAB PO SCH (20:42)
[2023-02-23] MEDS: ZOLPIDEM TARTRATE 5 MG TAB PO PRN (20:48)
[2023-02-23] MEDS: LORazepam 0.5 MG TAB PO PRN (20:48)
[2023-02-23] MEDS: oxyCODONE HCL IR 5 MG TAB (IMMEDIATE RELEASE) PO PRN (23:27)
[2023-02-24 06:59] LABS: Hematocrit (blood only) 34.2 % (42.0-52.0); Hemoglobin 11.3 g/dl (14.0-18.0); Mean Corpuscular Hemoglobin 30.8 pg (25.0-34.0); Mean Corpuscular Volume 93.2 fL (80.0-100.0); Mean Platelet Volume 9.2 fL (9.4-12.4); Platelet Count 260 K/uL (130-400); RDW Coefficient of Variation 16.2 % (11.5-14.5); RDW Standard Deviation 55.4 fL (36.4-46.3); Red Blood Count 3.67 M/uL (4.70-6.10); White Blood Count 6.64 K/ul (4.8-10.8)
[2023-02-24 07:08] LABS: INR 2.2 (0.9-1.1); Prothrombin Time 23.3 Seconds (9.0-12.0)
[2023-02-24 07:18] LABS: BUN Creatinine Ratio 18.9 (10-20); Calcium 8.1 mg/dl (8.6-10.3); Est GFR (African American) 61.4 ml/min; Potassium 3.8 mmol/L (3.5-5.1)
[2023-02-24] MEDS: METOPROLOL SUCC 25MG EXT REL TAB PO SCH (08:07)
[2023-02-24] MEDS: FUROSEMIDE 20 MG TAB PO SCH (08:07)
[2023-02-24] MEDS: GABAPENTIN 300 MG CAP PO SCH ×3 (08:07→20:54)
[2023-02-24] MEDS: POTASSIUM CHLORIDE 10 MEQ TABCR PO SCH (08:07)
[2023-02-24] MEDS: MAGNESIUM OXIDE 400 MG TAB PO SCH (08:07)
[2023-02-24] MEDS: CALCIUM CITRATE 950 MG TAB PO SCH ×2 (08:07→20:54)
[2023-02-24] MEDS: MULTIVITAMIN TAB PO SCH (08:07)
[2023-02-24] MEDS: LORATADINE 10 MG TAB PO SCH (08:07)
[2023-02-24] MEDS: CLOPIDOGREL BISULFATE 75 MG TAB PO SCH (08:07)
[2023-02-24] MEDS: INSULIN ASPART PER UNIT CHARGE SC SCH ×4 (09:55→20:56)
[2023-02-24] MEDS: DOCUSATE SODIUM 100 MG CAP PO SCH ×2 (09:58→20:56)
--- NOTE | 2023-02-24 10:07 | Hospitalist Progress Note ---
Date of Service February 24, 2023 Assessment & Plan (1) Diabetic infection of left foot: (2) Chronic systolic heart failure: (3) CKD (chronic kidney disease), stage III: (4) Pacemaker: (5) Diabetes mellitus type 2 with complications: (6) Coronary artery disease: (7) Atrial fibrillation: Plan Mr. Thayer is an 87 year old gentleman that presented to the ED on 01/30 per recommendations by wound clinic for evaluation of his non healing foot wound. He was seen in the setting of persistent non healing diabetic ulcers of the 5th metatarsal showing signs of tissue loss and tunneling. He has a history of PAD, CAD, atrial fibrillation on warfarin, diabetes with neuropathy and history of foot wounds. He completed a course of doxycycline 2 weeks [employer]; however, it was noted that the wound was with purulent drainage suggesting signs of deeper infection. Discussion with podiatry was had, ultimately confirmed clean margins. Contacted ID for further abx duration recommendations; however, noted diffuse rash c/w drug eruption across abdomen on 02/15, which resolved with the discontinuation of ampicillin.Plans for vancomycin x 7 days post operatively, EOT 02/22 Discharge delayed due to pending bed availability. 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 Surface wound culture from admission showing pansensitive Enterococcus Patient was previously on empiric Dapto and Zosyn. Seen by ID who recommended IV ampicillin 2g (started on 02/03/2023, d/c 02/15) Bone biopsy and repeat/deep cultures done on 02/06 by podiatry -Bone biopsy pathology consistent with osteomyelitis -Bone and foot sample Cx from 02/06 growing corynebacterium and enterococcus faecalis sensitive to ampicillin POD #5 s/p Left Foot Fifth Ray Resection, ulcer debridement, with plans for OP follow up with Podiatry on 02/20 assuming dispo -Continue Vancomycin EOT 02/22 -Podiatry changed dressing 02/20, per podiatry note: -"no dressing change into please leave the dressing in place that I have provided to him today. I would prefer him not to have any dressing changes while [facility]. And again will follow-up with me on February 27 at 1 PM tomorrow I will evaluate the incision and change his dressings. I discussed this with patient and his home health care provider who is present at visit today. Again as long as he is stable from medicine standpoint and infectious disease I do feel he is stable to be discharged to [facility] at this time. He will remain nonweightbearing to the left foot may use right foot for any pivots and weightbearing when he is transitioning. Patient will follow-up with me arranged on February 27 at 1 PM." #Peripheral arterial occlusive disease status post angioplasty and stenting of left lower extremity by interventional cardiology on 02/02. Recommendations noted: -continue Plavix for 1 month and follow-up with vascular surgery in 2 weeks 03/03 EOT Anticoagulation with warfarin (see below) Continue Plavix #Paroxysmal atrial fibrillation Continue Amiodarone, metoprolol Home dose of Coumadin is 1 mg MWF and 2 mg rest of the week. INR daily,resume home regimen Pacemaker in place #Chronic Heart Failure with Mildly Reduced EF Last ECHO 02/11: LV function mildly reduced. LV wall thickness concentric. EF 45%. Grade I DDx. Lasix held iso ALISSA -Continue lasix 10mg in am #ALISSA on CKD III *resolved Chronic Berman Monitor renal function Avoid nephrotoxic agents as able Continue lasix 10mg in am #DM II with peripheral neuropathy HbA1C: 6.6 Continue Gabapentin Continue insulin per protocol Monitor BGs Diet: HH/DMII DVT Px: Coumadin Dispo: pending placement Lluu Ewing DO [facility] Hospitalist Admission and Anticipated Discharge Date Admission Date: January 30, 2023 Subjective 87 yo M admitted with diabetic infection of the left foot reports that he would like to have the blue emmanuel under his rear but was told no by the wound care nurse out of clear concern for skin deterioration. he continues to decline to be moved around when RN suggests denies pain currently reports he is too weak to transfer to a bedside chair or bedside commode. tolerating PO rash on back is improved and he denies any itching discussed his plan for [facility] on Monday Physical Exam Physical Exam: CONSTITUTIONAL: WNWD, vitals as above, generally well-appearing EYES: normal conjunctivae, no scleral icterus ENT: external ear and nose normal, oropharynx clear NECK: trachea midline, no lymphadenopathy RESPIRATORY: clear to auscultation bilaterally, no crackles, rales or wheezes, normal respiratory effort CARDIOVASCULAR: regular rate and rhythm, no peripheral edema. CHEST: inspection of chest was normal GASTROINTESTINAL: soft, nontender, ND, no guarding MUSCULOSKELETAL: no gross focal deficits, head is normocephalic and atraumatic, surgical dressing in place on left foot. SKIN: warm and dry, morbilliform erythematous rash on his back and posterior neck, not present on abdomen or chest today-improved NEUROLOGIC: CN 2-12 grossly intact, no sensory deficit, normal cognition, normal speech, no tremor PSYCHIATRIC: alert cooperative and oriented to person, place and time. Euthymic mood, makes good eye contact, language grossly intact, recent and remote memory grossly intact. Results & Data Results & Data Vital Signs (Past 12 Hours) Vital Signs Temp Pulse Pulse Resp BP BP Pulse Ox 02/24/23 07:43 36.4 C L 62 18 133/64 96 02/24/23 07:07 67 02/24/23 04:00 36.7 C 60 18 129/72 97 02/24/23 02:13 66 02/24/23 00:00 36.8 C 66 20 132/74 99 02/23/23 22:08 O2 Del Method 02/24/23 07:43 Room Air 02/24/23 07:07 02/24/23 04:00 Room Air 02/24/23 02:13 02/24/23 00:00 Room Air 02/23/23 22:08 Room Air Laboratory Results Short CBC 02/24/23 Range/Units 06:09 WBC 6.64 (4.8-10.8) K/ul Hgb 11.3 L (14.0-18.0) g/dl Hct 34.2 L (42.0-52.0) % Plt Count 260 (130-400) K/uL BMP 02/24/23 06:09 Sodium 138 Potassium 3.8 Chloride 105 Carbon Dioxide 27 BUN 23 Creatinine 1.22 Glucose 111 H Calcium 8.1 L Medications Administered Current Inpatient Medications Acetaminophen (Acetaminophen 325 Mg Tab) 650 mg PO Q4H PRN PRN Reason: Pain or Fever Stop: 03/01/23 18:56 Last Admin: 02/10/23 11:50 Dose: 650 mg Al Hydrox/Mg Hydrox/Simethicone (Aluminum/Magnesium Susp 30 Ml Udc) 15 ml PO Q4H PRN PRN Reason: Dyspepsia Stop: 03/01/23 18:56 Amiodarone HCl (Amiodarone 200 Mg Tab) 200 mg PO QPM [facility] Stop: 03/02/23 20:59 Last Admin: 02/23/23 20:42 Dose: 200 mg Bisacodyl (Bisacodyl 10 Mg Supp) 10 mg SD DAILY PRN PRN Reason: Constipation Stop: 03/02/23 16:27 Calcium Citrate (Calcium Citrate 950 Mg Tab) 950 mg PO BID [facility] Stop: 03/16/23 11:24 Last Admin: 02/24/23 08:07 Dose: 950 mg Clopidogrel Bisulfate (Clopidogrel Bisulfate 75 Mg Tab) 75 mg PO QAM [facility] Stop: 03/05/23 08:59 Last Admin: 02/24/23 08:07 Dose: 75 mg Dextrose (Dextrose 50% 50 Ml Syringe) 25 - 50 ml IV UD PRN; Protocol PRN Reason: Hypoglycemia Protocol Stop: 03/01/23 19:49 Docusate Sodium (Docusate Sodium 100 Mg Cap) 100 mg PO BID [facility] Stop: 03/02/23 16:29 Last Admin: 02/24/23 09:58 Dose: 100 mg Furosemide (Furosemide 20 Mg Tab) 10 mg PO QAM [facility] Stop: 03/19/23 08:59 Last Admin: 02/24/23 08:07 Dose: 10 mg Gabapentin (Gabapentin 300 Mg Cap) 300 mg PO TID [facility] Stop: 03/01/23 20:59 Last Admin: 02/24/23 08:07 Dose: 300 mg Glucagon (Glucagon For Inj 1 Mg Vial) 1 mg SQ UD PRN; Protocol PRN Reason: Hypoglycemia Protocol Stop: 03/01/23 19:49 Glucose (Glucose 10 Tab/Tube) 4 - 8 tab PO UD PRN; Protocol PRN Reason: Hypoglycemia Treatment Stop: 03/01/23 19:49 Glucose (Glucose 40% Gel 15 Gm Tube) 15 - 30 gm PO UD PRN; Protocol PRN Reason: Hypoglycemia Protocol Stop: 03/01/23 19:49 Insulin Aspart (Insulin Aspart Per Unit Charge) 0 units SC ACHS [facility] Stop: 03/15/23 16:29 Last Admin: 02/24/23 09:55 Dose: 1 units Loratadine (Loratadine 10 Mg Tab) [facility] Stop: 03/02/23 08:59 Last Admin: 02/24/23 08:07 Dose: 10 mg Lorazepam (Lorazepam 0.5 Mg Tab) 0.5 mg PO DAILY PRN PRN Reason: anxiety/sleep Stop: 03/01/23 19:51 Last Admin: 02/23/23 20:48 Dose: 0.5 mg Magnesium Hydroxide (Magnesium Hydroxide Susp 30 Ml Udc) 30 ml PO Q12H PRN PRN Reason: Constipation Stop: 03/01/23 18:56 Magnesium Oxide (Magnesium Oxide 400 Mg Tab) 400 mg PO [facility] Stop: 03/02/23 08:59 Last Admin: 02/24/23 08:07 Dose: 400 mg Metoprolol Succinate (Metoprolol Succ 25mg Ext Rel Tab) 25 mg PO [facility] Stop: 03/02/23 08:59 Last Admin: 02/24/23 08:07 Dose: 25 mg Miconazole Nitrate (Miconazole Nitrate Powder 85 Gm) 1 appln EXT PRN PRN PRN Reason: Rash Stop: 03/09/23 15:55 Mirtazapine (Mirtazapine Tab 15 Mg Tab) 30 mg PO HS [facility] Stop: 03/01/23 20:59 Last Admin: 02/23/23 20:42 Dose: 30 mg Miscellaneous (Carbohydrates For Hypoglycemia ) 15 - 30 gm PO UD PRN PRN Reason: Hypoglycemia Protocol Stop: 03/01/23 19:49 Multivitamins (Multivitamin Tab) 1 tab [facility] [place] Stop: 03/02/23 16:29 Last Admin: 02/24/23 08:07 Dose: 1 tab Ondansetron HCl (Ondansetron Inj 2 Mg/Ml 2 Ml Vial) 4 mg IV Q6H PRN PRN Reason: Nausea Stop: 03/01/23 18:56 Oxycodone HCl (Oxycodone Hcl Ir 5 Mg Tab (Immediate Release)) 5 mg PO Q4H PRN PRN Reason: Pain Stop: 02/27/23 20:36 Last Admin: 02/23/23 23:27 Dose: 5 mg Polyethylene Glycol (Polyethylene (Miralax) 17 Gm Pack) 17 gm PO DAILY PRN PRN Reason: Constipation Stop: 03/01/23 18:56 Last Admin: 02/04/23 09:06 Dose: 17 gm Potassium Chloride (Potassium Chloride 10 Meq Tabcr) 10 meq PO DAILY [facility] Stop: 03/21/23 08:59 Last Admin: 02/24/23 08:07 Dose: 10 meq Warfarin Sodium (Warfarin Sod 2 Mg Tab) 2 mg PO DAILY@1600 [facility] Stop: 03/24/23 15:59 Last Admin: 02/23/23 16:57 Dose: 2 mg Zolpidem Tartrate (Zolpidem Tartrate 5 Mg Tab) 5 mg PO HS PRN PRN Reason: Insomnia Stop: 03/01/23 20:59 Last Admin: 02/23/23 20:48 Dose: 5 mg (6) Coronary artery disease Associated angina: without angina Coronary Disease-Associated Artery/Lesion type: [place] artery [place] vs. transplanted heart: [place] heart Qualified Code(s): I25.10 - Atherosclerotic heart disease of [place] coronary artery without angina pectoris (7) Atrial fibrillation Atrial fibrillation type: unspecified Qualified Code(s): I48.91 - Unspecified atrial fibrillation
[2023-02-24] MEDS ORDERED: MICONAZOLE NITRATE POWDER 85 GM EXT PRN (14:30)
[2023-02-24] MEDS: WARFARIN SOD 2 MG TAB PO SCH (16:15)
[2023-02-24] MEDS: LORazepam 0.5 MG TAB PO PRN (20:53)
[2023-02-24] MEDS: AMIODARONE 200 MG TAB PO SCH (20:54)
[2023-02-24] MEDS: MIRTAZAPINE TAB 15 MG TAB PO SCH (20:54)
[2023-02-24] MEDS: oxyCODONE HCL IR 5 MG TAB (IMMEDIATE RELEASE) PO PRN (22:37)
[2023-02-24] MEDS: ZOLPIDEM TARTRATE 5 MG TAB PO PRN (23:48)
[2023-02-25] MEDS: oxyCODONE HCL IR 5 MG TAB (IMMEDIATE RELEASE) PO PRN ×2 (06:06→23:04)
[2023-02-25] MEDS: LORATADINE 10 MG TAB PO SCH (08:32)
[2023-02-25] MEDS: FUROSEMIDE 20 MG TAB PO SCH (08:32)
[2023-02-25] MEDS: GABAPENTIN 300 MG CAP PO SCH ×3 (08:32→21:00)
[2023-02-25] MEDS: MULTIVITAMIN TAB PO SCH (08:32)
[2023-02-25] MEDS: MAGNESIUM OXIDE 400 MG TAB PO SCH (08:32)
[2023-02-25] MEDS: POTASSIUM CHLORIDE 10 MEQ TABCR PO SCH (08:32)
[2023-02-25] MEDS: CLOPIDOGREL BISULFATE 75 MG TAB PO SCH (08:32)
[2023-02-25] MEDS: CALCIUM CITRATE 950 MG TAB PO SCH ×2 (08:32→20:59)
[2023-02-25] MEDS: METOPROLOL SUCC 25MG EXT REL TAB PO SCH (08:33)
--- NOTE | 2023-02-25 09:11 | Hospitalist Progress Note ---
Date of Service February 25, 2023 Assessment & Plan (1) Diabetic infection of left foot: (2) Chronic systolic heart failure: (3) CKD (chronic kidney disease), stage III: (4) Pacemaker: (5) Diabetes mellitus type 2 with complications: (6) Coronary artery disease: (7) Atrial fibrillation: Plan Mr. Thayer is an 87 year old gentleman that presented to the ED on 01/30 per recommendations by wound clinic for evaluation of his non healing foot wound. He was seen in the setting of persistent non healing diabetic ulcers of the 5th metatarsal showing signs of tissue loss and tunneling. He has a history of PAD, CAD, atrial fibrillation on warfarin, diabetes with neuropathy and history of foot wounds. He completed a course of doxycycline 2 weeks SOUND EDIT[employer]; however, it was noted that the wound was with purulent drainage suggesting signs of deeper infection. Discussion with podiatry was had, ultimately confirmed clean margins. Contacted ID for further abx duration recommendations; however, noted diffuse rash c/w drug eruption across abdomen on 02/15, which resolved with the discontinuation of ampicillin.Plans for vancomycin x 7 days post operatively, EOT 02/22 Discharge delayed due to pending bed availability. 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 Surface wound culture from admission showing pansensitive Enterococcus Patient was previously on empiric Dapto and Zosyn. Seen by ID who recommended IV ampicillin 2g (started on 02/03/2023, d/c 02/15) Bone biopsy and repeat/deep cultures done on 02/06 by podiatry -Bone biopsy pathology consistent with osteomyelitis -Bone and foot sample Cx from 02/06 growing corynebacterium and enterococcus faecalis sensitive to ampicillin s/p Left Foot [place] Resection, ulcer debridement, with plans for OP follow up with Podiatry on 02/20 assuming dispo -Continue Vancomycin EOT 02/22 -Podiatry changed dressing 02/20, per podiatry note: -"no dressing change into please leave the dressing in place that I have provided to him today. I would prefer him not to have any dressing changes while [facility]. And again will follow-up with me on February 27 at 1 PM tomorrow I will evaluate the incision and change his dressings. I discussed this with patient and his home health care provider who is present at visit today. Again as long as he is stable from medicine standpoint and infectious disease I do feel he is stable to be discharged to [facility] at this time. He will remain nonweightbearing to the left foot may use right foot for any pivots and weightbearing when he is transitioning. Patient will follow-up with me arranged on February 27 at 1 PM." #Peripheral arterial occlusive disease status post angioplasty and stenting of left lower extremity by interventional cardiology on 02/02. Recommendations noted: -continue Plavix for 1 month and follow-up with vascular surgery in 2 weeks 03/03 EOT Anticoagulation with warfarin (see below) Continue Plavix #Paroxysmal atrial fibrillation Continue Amiodarone, metoprolol Home dose of Coumadin is 1 mg MWF and 2 mg rest of the week. INR therapeutic, cont current regimen. Pacemaker in place #Chronic Heart Failure with Mildly Reduced EF Last ECHO 02/11: LV function mildly reduced. LV wall thickness concentric. EF 45%. Grade I DDx. Lasix held iso ALISSA -Continue lasix 10mg in am #ALISSA on CKD III *resolved Chronic Berman Monitor renal function Avoid nephrotoxic agents as able Continue lasix 10mg in am #DM II with peripheral neuropathy HbA1C: 6.6 Continue Gabapentin Continue insulin per protocol Monitor BGs pressure ulceration-gluteus, cont per WOCN nurse. Cont efforts to mobilize patient. No blue chux per WOCN. Diet: HH/DMII DVT Px: Coumadin Dispo: pending placement , encourage him to move. Lulu Ewing DO [facility] Hospitalist Admission and Anticipated Discharge Date Admission Date: January 30, 2023 Subjective 87 yo M admitted with diabetic infection of the left foot no acute issues today reports "no one will let me get out of bed" we discussed the importance of not resisting the RNs when they turn him he verbalized understanding that further skin breakdown happens when he is in one position for >2 hours. we discussed his follow-up appointments with Dr. Ulrich and his foot surgeon on Monday Physical Exam Physical Exam: CONSTITUTIONAL: WNWD, vitals as above, generally well-appearing EYES: normal conjunctivae, no scleral icterus ENT: external ear and nose normal, oropharynx clear NECK: trachea midline, no lymphadenopathy RESPIRATORY: clear to auscultation bilaterally, no crackles, rales or wheezes, normal respiratory effort CARDIOVASCULAR: regular rate and rhythm, no peripheral edema. CHEST: inspection of chest was normal GASTROINTESTINAL: soft, nontender, ND, no guarding MUSCULOSKELETAL: no gross focal deficits, head is normocephalic and atraumatic, surgical dressing in place on left foot. SKIN: warm and dry, morbilliform erythematous rash on his back and posterior neck, not present on abdomen or chest today-improved NEUROLOGIC: CN 2-12 grossly intact, no sensory deficit, normal cognition, normal speech, no tremor PSYCHIATRIC: alert cooperative and oriented to person, place and time. Euthymic mood, makes good eye contact, language grossly intact, recent and remote memory grossly intact. Results & Data Results & Data Vital Signs (Past 12 Hours) Vital Signs Temp Pulse Resp BP Pulse Ox O2 Del Method 02/25/23 07:48 36.4 C L 60 16 146/65 H 93 Room Air 02/24/23 22:45 36.7 C 50 L 16 124/68 96 Room Air Medications Administered Current Inpatient Medications Acetaminophen (Acetaminophen 325 Mg Tab) 650 mg PO Q4H PRN PRN Reason: Pain or Fever Stop: 03/01/23 18:56 Last Admin: 02/10/23 11:50 Dose: 650 mg Al Hydrox/Mg Hydrox/Simethicone (Aluminum/Magnesium Susp 30 Ml Udc) 15 ml PO Q4H PRN PRN Reason: Dyspepsia Stop: 03/01/23 18:56 Amiodarone HCl (Amiodarone 200 Mg Tab) 200 mg PO QPM ABIODUN Stop: 03/02/23 20:59 Last Admin: 02/24/23 20:54 Dose: 200 mg Bisacodyl (Bisacodyl 10 Mg Supp) 10 mg [place] DAILY PRN PRN Reason: Constipation Stop: 03/02/23 16:27 Calcium Citrate (Calcium Citrate 950 Mg Tab) 950 mg PO BID ABIODUN Stop: 03/16/23 11:24 Last Admin: 02/25/23 08:32 Dose: 950 mg Clopidogrel Bisulfate (Clopidogrel Bisulfate 75 Mg Tab) 75 mg PO QAM COUNT INCLUDES THE [facility] Stop: 03/05/23 08:59 Last Admin: 02/25/23 08:32 Dose: 75 mg Dextrose (Dextrose 50% 50 Ml Syringe) 25 - 50 ml IV UD PRN; Protocol PRN Reason: Hypoglycemia Protocol Stop: 03/01/23 19:49 Docusate Sodium (Docusate Sodium 100 Mg Cap) 100 mg PO BID COUNT INCLUDES THE [facility] Stop: 03/02/23 16:29 Last Admin: 02/24/23 20:56 Dose: 100 mg Furosemide (Furosemide 20 Mg Tab) 10 mg PO QAM COUNT INCLUDES THE [facility] Stop: 03/19/23 08:59 Last Admin: 02/25/23 08:32 Dose: 10 mg Gabapentin (Gabapentin 300 Mg Cap) 300 mg PO TID COUNT INCLUDES THE [facility] Stop: 03/01/23 20:59 Last Admin: 02/25/23 08:32 Dose: 300 mg Glucagon (Glucagon For Inj 1 Mg Vial) 1 mg SQ UD PRN; Protocol PRN Reason: Hypoglycemia Protocol Stop: 03/01/23 19:49 Glucose (Glucose 10 Tab/Tube) 4 - 8 tab PO UD PRN; Protocol PRN Reason: Hypoglycemia Treatment Stop: 03/01/23 19:49 Glucose (Glucose 40% Gel 15 Gm Tube) 15 - 30 gm PO UD PRN; Protocol PRN Reason: Hypoglycemia Protocol Stop: 03/01/23 19:49 Insulin Aspart (Insulin Aspart Per Unit Charge) 0 units SC ACHS COUNT INCLUDES THE [facility] Stop: 03/15/23 16:29 Last Admin: 02/24/23 20:56 Dose: Not Given Loratadine (Loratadine 10 Mg Tab) [facility] Stop: 03/02/23 08:59 Last Admin: 02/25/23 08:32 Dose: 10 mg Lorazepam (Lorazepam 0.5 Mg Tab) 0.5 mg PO DAILY PRN PRN Reason: anxiety/sleep Stop: 03/01/23 19:51 Last Admin: 02/24/23 20:53 Dose: 0.5 mg Magnesium Hydroxide (Magnesium Hydroxide Susp 30 Ml Udc) 30 ml PO Q12H PRN PRN Reason: Constipation Stop: 03/01/23 18:56 Magnesium Oxide (Magnesium Oxide 400 Mg Tab) 400 [facility] Stop: 03/02/23 08:59 Last Admin: 02/25/23 08:32 Dose: 400 mg Metoprolol Succinate (Metoprolol Succ 25mg Ext Rel Tab) 25 mg PO QAM COUNT INCLUDES THE [facility] Stop: 03/02/23 08:59 Last Admin: 02/25/23 08:33 Dose: 25 mg Miconazole Nitrate (Miconazole Nitrate Powder 85 Gm) 1 appln EXT PRN PRN PRN Reason: Rash Stop: 03/09/23 15:55 Miconazole Nitrate (Miconazole Nitrate Powder 85 Gm) 1 appln EXT PRN PRN PRN Reason: groin irritation Stop: 03/26/23 14:29 Last Admin: 02/24/23 18:16 Dose: 1 appln Mirtazapine (Mirtazapine Tab 15 Mg Tab) 30 mg PO HS COUNT INCLUDES THE [facility] Stop: 03/01/23 20:59 Last Admin: 02/24/23 20:54 Dose: 30 mg Miscellaneous (Carbohydrates For Hypoglycemia ) 15 - 30 gm PO UD PRN PRN Reason: Hypoglycemia Protocol Stop: 03/01/23 19:49 Multivitamins (Multivitamin Tab) 1 [facility] Stop: 03/02/23 16:29 Last Admin: 02/25/23 08:32 Dose: 1 tab Ondansetron HCl (Ondansetron Inj 2 Mg/Ml 2 Ml Vial) 4 mg IV Q6H PRN PRN Reason: Nausea Stop: 03/01/23 18:56 Oxycodone HCl (Oxycodone Hcl Ir 5 Mg Tab (Immediate Release)) 5 mg PO Q4H PRN PRN Reason: Pain Stop: 02/27/23 20:36 Last Admin: 02/25/23 06:06 Dose: 5 mg Polyethylene Glycol (Polyethylene (Miralax) 17 Gm Pack) 17 gm PO DAILY PRN PRN Reason: Constipation Stop: 03/01/23 18:56 Last Admin: 02/04/23 09:06 Dose: 17 gm Potassium Chloride (Potassium Chloride 10 Meq Tabcr) 10 meq PO DAILY COUNT INCLUDES THE [facility] Stop: 03/21/23 08:59 Last Admin: 02/25/23 08:32 Dose: 10 meq Warfarin Sodium (Warfarin Sod 2 Mg Tab) 2 mg PO DAILY@1600 COUNT INCLUDES THE [facility] Stop: 03/24/23 15:59 Last Admin: 02/24/23 16:15 Dose: 2 mg Zolpidem Tartrate (Zolpidem Tartrate 5 Mg Tab) 5 mg PO HS PRN PRN Reason: Insomnia Stop: 03/01/23 20:59 Last Admin: 02/24/23 23:48 Dose: 5 mg (6) Coronary artery disease Associated angina: without angina Coronary Disease-Associated Artery/Lesion type: [place] artery [place] vs. transplanted heart: [place] heart Qualified Code(s): I25.10 - Atherosclerotic heart disease of [place] coronary artery without angina pectoris (7) Atrial fibrillation Atrial fibrillation type: unspecified Qualified Code(s): I48.91 - Unspecified atrial fibrillation
[2023-02-25] MEDS: INSULIN ASPART PER UNIT CHARGE SC SCH ×4 (09:30→21:00)
[2023-02-25] MEDS: DOCUSATE SODIUM 100 MG CAP PO SCH ×2 (09:30→20:58)
[2023-02-25] MEDS: WARFARIN SOD 2 MG TAB PO SCH (16:46)
[2023-02-25] MEDS: LORazepam 0.5 MG TAB PO PRN (20:58)
[2023-02-25] MEDS: MIRTAZAPINE TAB 15 MG TAB PO SCH (20:59)
[2023-02-25] MEDS: AMIODARONE 200 MG TAB PO SCH (21:00)
[2023-02-25] MEDS: ZOLPIDEM TARTRATE 5 MG TAB PO PRN (23:46)
[2023-02-26] MEDS: oxyCODONE HCL IR 5 MG TAB (IMMEDIATE RELEASE) PO PRN ×2 (05:36→23:29)
[2023-02-26 07:05] LABS: Hematocrit (blood only) 39.2 % (42.0-52.0); Hemoglobin 13.2 g/dl (14.0-18.0); Mean Corpuscular Hemoglobin 30.8 pg (25.0-34.0); Mean Corpuscular Hgb Conc 33.7 g/dL (32.0-36.0); Mean Corpuscular Volume 91.6 fL (80.0-100.0); Mean Platelet Volume 9.1 fL (9.4-12.4); Platelet Count 285 K/uL (130-400); RDW Standard Deviation 54.3 fL (36.4-46.3); Red Blood Count 4.28 M/uL (4.70-6.10); White Blood Count 8.03 K/ul (4.8-10.8)
[2023-02-26 07:24] LABS: BUN Creatinine Ratio 19.7 (10-20); Calcium 8.3 mg/dl (8.6-10.3); Creatinine Clr Calc Pharmacy 53.8 ml/min; Est GFR (African American) 64.6 ml/min; Est GFR (Non-African American) 55.7 ml/min
[2023-02-26 07:56] LABS: INR 2.3 (0.9-1.1)
[2023-02-26] MEDS: DOCUSATE SODIUM 100 MG CAP PO SCH ×2 (08:01→21:42)
[2023-02-26] MEDS: METOPROLOL SUCC 25MG EXT REL TAB PO SCH (08:01)
[2023-02-26] MEDS: CALCIUM CITRATE 950 MG TAB PO SCH ×2 (08:01→21:39)
[2023-02-26] MEDS: MULTIVITAMIN TAB PO SCH (08:01)
[2023-02-26] MEDS: LORATADINE 10 MG TAB PO SCH (08:01)
[2023-02-26] MEDS: FUROSEMIDE 20 MG TAB PO SCH (08:01)
[2023-02-26] MEDS: CLOPIDOGREL BISULFATE 75 MG TAB PO SCH (08:01)
[2023-02-26] MEDS: GABAPENTIN 300 MG CAP PO SCH ×3 (08:01→21:38)
[2023-02-26] MEDS: POTASSIUM CHLORIDE 10 MEQ TABCR PO SCH (08:02)
[2023-02-26] MEDS: MAGNESIUM OXIDE 400 MG TAB PO SCH (08:06)
[2023-02-26] MEDS: INSULIN ASPART PER UNIT CHARGE SC SCH ×4 (09:09→21:14)
--- NOTE | 2023-02-26 10:03 | Hospitalist Progress Note ---
Date of Service February 26, 2023 Assessment & Plan (1) Diabetic infection of left foot: (2) Chronic systolic heart failure: (3) CKD (chronic kidney disease), stage III: (4) Pacemaker: (5) Diabetes mellitus type 2 with complications: (6) Coronary artery disease: (7) Atrial fibrillation: Plan Mr. Thayer is an 87 year old gentleman that presented to the ED on 01/30 per recommendations by wound clinic for evaluation of his non healing foot wound. He was seen in the setting of persistent non healing diabetic ulcers of the 5th metatarsal showing signs of tissue loss and tunneling. He has a history of PAD, CAD, atrial fibrillation on warfarin, diabetes with neuropathy and history of foot wounds. He completed a course of doxycycline 2 weeks [employer]OM [employer]; however, it was noted that the wound was with purulent drainage suggesting signs of deeper infection. Discussion with podiatry was had, ultimately confirmed clean margins. Contacted ID for further abx duration recommendations; however, noted diffuse rash c/w drug eruption across abdomen on 02/15, which resolved with the discontinuation of ampicillin.Plans for vancomycin x 7 days post operatively, EOT 02/22 Discharge delayed due to pending bed availability. 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 Surface wound culture from admission showing pansensitive Enterococcus Patient was previously on empiric Dapto and Zosyn. Seen by ID who recommended IV ampicillin 2g (started on 02/03/2023, d/c 02/15) Bone biopsy and repeat/deep cultures done on 02/06 by podiatry -Bone biopsy pathology consistent with osteomyelitis -Bone and foot sample Cx from 02/06 growing corynebacterium and enterococcus faecalis sensitive to ampicillin s/p Left Foot Fifth Ray Resection, ulcer debridement, with plans for OP follow up with Podiatry on 02/20 assuming dispo -Continue Vancomycin EOT 02/22 -Podiatry changed dressing 02/20, per podiatry note: -"no dressing change into please leave the dressing in place that I have provided to him today. I would prefer him not to have any dressing changes while [facility]. And again will follow-up with me on February 27 at 1 PM tomorrow I will evaluate the incision and change his dressings. I discussed this with patient and his home health care provider who is present at visit today. Again as long as he is stable from medicine standpoint and infectious disease I do feel he is stable to be discharged to [facility] at this time. He will remain nonweightbearing to the left foot may use right foot for any pivots and weightbearing when he is transitioning. Patient will follow-up with me arranged on February 27 at 1 PM." #Peripheral arterial occlusive disease status post angioplasty and stenting of left lower extremity by interventional cardiology on 02/02. Recommendations noted: -continue Plavix for 1 month and follow-up with vascular surgery in 2 weeks 03/03 EOT Anticoagulation with warfarin (see below) Continue Plavix #Paroxysmal atrial fibrillation Continue Amiodarone, metoprolol Home dose of Coumadin is 1 mg MWF and 2 mg rest of the week. INR therapeutic, cont current regimen. Pacemaker in place #Chronic Heart Failure with Mildly Reduced EF Last ECHO 02/11: LV function mildly reduced. LV wall thickness concentric. EF 45%. Grade I DDx. Lasix held iso ALISSA -Continue lasix 10mg in am #ALISSA on CKD III *resolved Chronic Berman Monitor renal function Avoid nephrotoxic agents as able Continue lasix 10mg in am #DM II with peripheral neuropathy HbA1C: 6.6 Continue Gabapentin Continue insulin per protocol Monitor BGs pressure ulceration-gluteus, cont per WOCN nurse. Cont efforts to mobilize patient. No blue chux per WOCN. Diet: HH/DMII DVT Px: Coumadin Dispo: pending placement , encourage him to move. Lulu Ewing DO [facility] Hospitalist Admission and Anticipated Discharge Date Admission Date: January 30, 2023 Subjective 87 yo M admitted with diabetic infection of the left foot no acute issues today interested in reviewing what his foot doctor is planning to do tomorrow very resistant to moving around in bed for unclear reasons. tolerating PO Physical Exam Physical Exam: CONSTITUTIONAL: WNWD, vitals as above, generally well-appearing EYES: normal conjunctivae, no scleral icterus ENT: external ear and nose normal, oropharynx clear NECK: trachea midline, no lymphadenopathy RESPIRATORY: clear to auscultation bilaterally, no crackles, rales or wheezes, normal respiratory effort CARDIOVASCULAR: regular rate and rhythm, no peripheral edema. CHEST: inspection of chest was normal GASTROINTESTINAL: soft, nontender, ND, no guarding MUSCULOSKELETAL: generalized weakness, head is normocephalic and atraumatic, surgical dressing in place on left foot. SKIN: warm and dry, morbilliform erythematous rash on his back and posterior neck, not present on abdomen or chest today-improved NEUROLOGIC: CN 2-12 grossly intact, no sensory deficit, normal cognition, normal speech, no tremor PSYCHIATRIC: alert cooperative and oriented to person, place and time. Euthymic mood, makes good eye contact, language grossly intact, recent and remote memory grossly intact. Results & Data Results & Data Vital Signs (Past 12 Hours) Vital Signs Temp Pulse Resp BP Pulse Ox O2 Del Method 02/26/23 07:36 Room Air 02/26/23 03:01 36.5 C 60 18 108/58 L 93 Room Air 02/25/23 23:08 36.4 C L 69 18 148/53 H 98 Room Air Laboratory Results Short CBC 02/26/23 Range/Units 06:30 WBC 8.03 (4.8-10.8) K/ul Hgb 13.2 L (14.0-18.0) g/dl Hct 39.2 L (42.0-52.0) % Plt Count 285 (130-400) K/uL BMP 02/26/23 06:30 Sodium 137 Potassium 4.0 Chloride 103 Carbon Dioxide 27 BUN 23 Creatinine 1.17 Glucose 99 Calcium 8.3 L Medications Administered Current Inpatient Medications Acetaminophen (Acetaminophen 325 Mg Tab) 650 mg PO Q4H PRN PRN Reason: Pain or Fever Stop: 03/01/23 18:56 Last Admin: 02/10/23 11:50 Dose: 650 mg Al Hydrox/Mg Hydrox/Simethicone (Aluminum/Magnesium Susp 30 Ml Udc) 15 ml PO Q4H PRN PRN Reason: Dyspepsia Stop: 03/01/23 18:56 Amiodarone HCl (Amiodarone 200 Mg Tab) 200 mg PO QPM ABIODUN Stop: 03/02/23 20:59 Last Admin: 02/25/23 21:00 Dose: 200 mg Bisacodyl (Bisacodyl 10 Mg Supp) 10 mg [place] DAILY PRN PRN Reason: Constipation Stop: 03/02/23 16:27 Calcium Citrate (Calcium Citrate 950 Mg Tab) 950 mg PO BID [facility] Stop: 03/16/23 11:24 Last Admin: 02/26/23 08:01 Dose: 950 mg Clopidogrel Bisulfate (Clopidogrel Bisulfate 75 Mg Tab) 75 mg PO QAM ABIODUN Stop: 03/05/23 08:59 Last Admin: 02/26/23 08:01 Dose: 75 mg Dextrose (Dextrose 50% 50 Ml Syringe) 25 - 50 ml IV UD PRN; Protocol PRN Reason: Hypoglycemia Protocol Stop: 03/01/23 19:49 Docusate Sodium (Docusate Sodium 100 Mg Cap) 100 mg PO BID [facility] Stop: 03/02/23 16:29 Last Admin: 02/26/23 08:01 Dose: 100 mg Furosemide (Furosemide 20 Mg Tab) 10 mg PO QAM [facility] Stop: 03/19/23 08:59 Last Admin: 02/26/23 08:01 Dose: 10 mg Gabapentin (Gabapentin 300 Mg Cap) 300 mg PO TID ABIODUN Stop: 03/01/23 20:59 Last Admin: 02/26/23 08:01 Dose: 300 mg Glucagon (Glucagon For Inj 1 Mg Vial) 1 mg SQ UD PRN; Protocol PRN Reason: Hypoglycemia Protocol Stop: 03/01/23 19:49 Glucose (Glucose 10 Tab/Tube) 4 - 8 tab PO UD PRN; Protocol PRN Reason: Hypoglycemia Treatment Stop: 03/01/23 19:49 Glucose (Glucose 40% Gel 15 Gm Tube) 15 - 30 gm PO UD PRN; Protocol PRN Reason: Hypoglycemia Protocol Stop: 03/01/23 19:49 Insulin Aspart (Insulin Aspart Per Unit Charge) 0 units SC ACHS [facility] Stop: 03/15/23 16:29 Last Admin: 02/26/23 09:09 Dose: 2 units Loratadine (Loratadine 10 Mg Tab) 10 mg PO QAM [facility] Stop: 03/02/23 08:59 Last Admin: 02/26/23 08:01 Dose: 10 mg Lorazepam (Lorazepam 0.5 Mg Tab) 0.5 mg PO DAILY PRN PRN Reason: anxiety/sleep Stop: 03/01/23 19:51 Last Admin: 02/25/23 20:58 Dose: 0.5 mg Magnesium Hydroxide (Magnesium Hydroxide Susp 30 Ml Udc) 30 ml PO Q12H PRN PRN Reason: Constipation Stop: 03/01/23 18:56 Magnesium Oxide (Magnesium Oxide 400 Mg Tab) 400 mg PO QAM [facility] Stop: 03/02/23 08:59 Last Admin: 02/26/23 08:06 Dose: 400 mg Metoprolol Succinate (Metoprolol Succ 25mg Ext Rel Tab) [facility] [place] Stop: 03/02/23 08:59 Last Admin: 02/26/23 08:01 Dose: 25 mg Miconazole Nitrate (Miconazole Nitrate Powder 85 Gm) 1 appln EXT PRN PRN PRN Reason: Rash Stop: 03/09/23 15:55 Miconazole Nitrate (Miconazole Nitrate Powder 85 Gm) 1 appln EXT PRN PRN PRN Reason: groin irritation Stop: 03/26/23 14:29 Last Admin: 02/24/23 18:16 Dose: 1 appln Mirtazapine (Mirtazapine Tab 15 Mg Tab) 30 mg PO HS [facility] Stop: 03/01/23 20:59 Last Admin: 02/25/23 20:59 Dose: 30 mg Miscellaneous (Carbohydrates For Hypoglycemia ) 15 - 30 gm PO UD PRN PRN Reason: Hypoglycemia Protocol Stop: 03/01/23 19:49 Multivitamins (Multivitamin Tab) [facility] [place] Stop: 03/02/23 16:29 Last Admin: 02/26/23 08:01 Dose: 1 tab Ondansetron HCl (Ondansetron Inj 2 Mg/Ml 2 Ml Vial) 4 mg IV Q6H PRN PRN Reason: Nausea Stop: 03/01/23 18:56 Oxycodone HCl (Oxycodone Hcl Ir 5 Mg Tab (Immediate Release)) 5 mg PO Q4H PRN PRN Reason: Pain Stop: 02/27/23 20:36 Last Admin: 02/26/23 05:36 Dose: 5 mg Polyethylene Glycol (Polyethylene (Miralax) 17 Gm Pack) 17 gm PO DAILY PRN PRN Reason: Constipation Stop: 03/01/23 18:56 Last Admin: 02/04/23 09:06 Dose: 17 gm Potassium Chloride (Potassium Chloride 10 Meq Tabcr) 10 meq PO DAILY [facility] Stop: 03/21/23 08:59 Last Admin: 02/26/23 08:02 Dose: 10 meq Warfarin Sodium (Warfarin Sod 2 Mg Tab) 2 mg PO DAILY@1600 [facility] Stop: 03/24/23 15:59 Last Admin: 02/25/23 16:46 Dose: 2 mg Zolpidem Tartrate (Zolpidem Tartrate 5 Mg Tab) 5 mg PO HS PRN PRN Reason: Insomnia Stop: 03/01/23 20:59 Last Admin: 02/25/23 23:46 Dose: 5 mg (6) Coronary artery disease Associated angina: without angina Coronary Disease-Associated Artery/Lesion type: [place] artery [place] vs. transplanted heart: [place] heart Qualified Code(s): I25.10 - Atherosclerotic heart disease of [place] coronary artery without angina pectoris (7) Atrial fibrillation Atrial fibrillation type: unspecified Qualified Code(s): I48.91 - Unspecified atrial fibrillation
[2023-02-26] MEDS: WARFARIN SOD 2 MG TAB PO SCH (15:23)
[2023-02-26] MEDS: MIRTAZAPINE TAB 15 MG TAB PO SCH (21:38)
[2023-02-26] MEDS: AMIODARONE 200 MG TAB PO SCH (21:39)
[2023-02-26] MEDS: LORazepam 0.5 MG TAB PO PRN (21:42)
[2023-02-26] MEDS: ZOLPIDEM TARTRATE 5 MG TAB PO PRN (23:29)
[2023-02-27] MEDS: oxyCODONE HCL IR 5 MG TAB (IMMEDIATE RELEASE) PO PRN (04:31)
[2023-02-27] MEDS: METOPROLOL SUCC 25MG EXT REL TAB PO SCH (08:18)
[2023-02-27] MEDS: CLOPIDOGREL BISULFATE 75 MG TAB PO SCH (08:19)
[2023-02-27] MEDS: POTASSIUM CHLORIDE 10 MEQ TABCR PO SCH (08:19)
[2023-02-27] MEDS: GABAPENTIN 300 MG CAP PO SCH ×3 (08:19→21:18)
[2023-02-27] MEDS: MULTIVITAMIN TAB PO SCH (08:19)
[2023-02-27] MEDS: MAGNESIUM OXIDE 400 MG TAB PO SCH (08:19)
[2023-02-27] MEDS: CALCIUM CITRATE 950 MG TAB PO SCH ×2 (08:20→21:19)
[2023-02-27] MEDS: LORATADINE 10 MG TAB PO SCH (08:20)
[2023-02-27] MEDS: FUROSEMIDE 20 MG TAB PO SCH (08:20)
[2023-02-27] MEDS: DOCUSATE SODIUM 100 MG CAP PO SCH ×2 (08:31→21:25)
[2023-02-27] MEDS: INSULIN ASPART PER UNIT CHARGE SC SCH ×4 (08:32→20:27)
--- NOTE | 2023-02-27 10:56 | Hospitalist Progress Note ---
Date of Service February 27, 2023 Assessment & Plan (1) Diabetic infection of left foot: (2) Chronic systolic heart failure: (3) CKD (chronic kidney disease), stage III: (4) Pacemaker: (5) Diabetes mellitus type 2 with complications: (6) Coronary artery disease: (7) Atrial fibrillation: Plan Mr. Thayer is an 87 year old gentleman that presented to the ED on 01/30 per recommendations by wound clinic for evaluation of his non healing foot wound. He was seen in the setting of persistent non healing diabetic ulcers of the 5th metatarsal showing signs of tissue loss and tunneling. He has a history of PAD, CAD, atrial fibrillation on warfarin, diabetes with neuropathy and history of foot wounds. He completed a course of doxycycline 2 weeks [employer]OTYPE [employer]; however, it was noted that the wound was with purulent drainage suggesting signs of deeper infection. Discussion with podiatry was had, ultimately confirmed clean margins. Contacted ID for further abx duration recommendations; however, noted diffuse rash c/w drug eruption across abdomen on 02/15, which resolved with the discontinuation of ampicillin.Plans for vancomycin x 7 days post operatively, EOT 02/22 Discharge delayed due to pending bed availability. 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 Surface wound culture from admission showing pansensitive Enterococcus Patient was previously on empiric Dapto and Zosyn. Seen by ID who recommended IV ampicillin 2g (started on 02/03/2023, d/c 02/15) Bone biopsy and repeat/deep cultures done on 02/06 by podiatry -Bone biopsy pathology consistent with osteomyelitis -Bone and foot sample Cx from 02/06 growing corynebacterium and enterococcus faecalis sensitive to ampicillin s/p Left Foot Fifth Ray Resection, ulcer debridement, with plans for OP follow up with Podiatry on 02/20 assuming dispo -Continue Vancomycin EOT 02/22 -Podiatry changed dressing 02/20, and again today 02/27 - arranged f/u on Monday, March 06 at 1 PM. Leave current dressing in place until that time and NWB to left foot. #Peripheral arterial occlusive disease status post angioplasty and stenting of left lower extremity by interventional cardiology on 02/02. Recommendations noted: -continue Plavix for 1 month and follow-up with vascular surgery in 2 weeks 03/03 EOT Anticoagulation with warfarin (see below) Continue Plavix #Paroxysmal atrial fibrillation Continue Amiodarone, metoprolol Home dose of Coumadin is 1 mg MWF and 2 mg rest of the week. INR therapeutic, cont current regimen. Pacemaker in place #Chronic Heart Failure with Mildly Reduced EF Last ECHO 02/11: LV function mildly reduced. LV wall thickness concentric. EF 45%. Grade I DDx. Lasix held iso ALISSA -Continue lasix 10mg in am #ALISSA on CKD III *resolved Chronic Berman Monitor renal function Avoid nephrotoxic agents as able Continue lasix 10mg in am #DM II with peripheral neuropathy HbA1C: 6.6 Continue Gabapentin Continue insulin per protocol Monitor BGs pressure ulceration-gluteus, cont per WOCN nurse. Cont efforts to mobilize patient. No blue chux per WOCN. Diet: HH/DMII DVT Px: Coumadin Dispo: SNF in am . 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 Physical Exam Physical Exam: CONSTITUTIONAL: WNWD, vitals as above, generally well-appearing EYES: normal conjunctivae, no scleral icterus ENT: external ear and nose normal, oropharynx clear NECK: trachea midline, no lymphadenopathy RESPIRATORY: clear to auscultation bilaterally, no crackles, rales or wheezes, normal respiratory effort CARDIOVASCULAR: regular rate and rhythm, no peripheral edema. CHEST: inspection of chest was normal GASTROINTESTINAL: soft, nontender, ND, no guarding MUSCULOSKELETAL: generalized weakness, head is normocephalic and atraumatic, surgical dressing in place on left foot. SKIN: warm and dry, morbilliform erythematous rash on his back and posterior neck, not present on abdomen or chest today-improved NEUROLOGIC: CN 2-12 grossly intact, no sensory deficit, normal cognition, normal speech, no tremor PSYCHIATRIC: alert cooperative and oriented to person, place and time. Euthymic mood, makes good eye contact, language grossly intact, recent and remote memory grossly intact. Results & Data Results & Data Vital Signs (Past 12 Hours) Vital Signs Temp Pulse Resp BP Pulse Ox O2 Del Method 02/27/23 07:50 36.4 C L 62 18 151/78 H 98 Room Air Medications Administered Current Inpatient Medications Acetaminophen (Acetaminophen 325 Mg Tab) 650 mg PO Q4H PRN PRN Reason: Pain or Fever Stop: 03/01/23 18:56 Last Admin: 02/10/23 11:50 Dose: 650 mg Al Hydrox/Mg Hydrox/Simethicone (Aluminum/Magnesium Susp 30 Ml Udc) 15 ml PO Q4H PRN PRN Reason: Dyspepsia Stop: 03/01/23 18:56 Amiodarone HCl (Amiodarone 200 Mg Tab) 200 mg PO QPM ABIODUN Stop: 03/02/23 20:59 Last Admin: 02/26/23 21:39 Dose: 200 mg Bisacodyl (Bisacodyl 10 Mg Supp) 10 mg AK DAILY PRN PRN Reason: Constipation Stop: 03/02/23 16:27 Calcium Citrate (Calcium Citrate 950 Mg Tab) 950 mg PO BID ABIODUN Stop: 03/16/23 11:24 Last Admin: 02/27/23 08:20 Dose: 950 mg Clopidogrel Bisulfate (Clopidogrel Bisulfate 75 Mg Tab) 75 mg PO QAM ABIODUN Stop: 03/05/23 08:59 Last Admin: 02/27/23 08:19 Dose: 75 mg Dextrose (Dextrose 50% 50 Ml Syringe) 25 - 50 ml IV UD PRN; Protocol PRN Reason: Hypoglycemia Protocol Stop: 03/01/23 19:49 Docusate Sodium (Docusate Sodium 100 Mg Cap) 100 mg PO BID ABIODUN Stop: 03/02/23 16:29 Last Admin: 02/27/23 08:31 Dose: Not Given Furosemide (Furosemide 20 Mg Tab) 10 mg PO QAM ABIODUN Stop: 03/19/23 08:59 Last Admin: 02/27/23 08:20 Dose: 10 mg Gabapentin (Gabapentin 300 Mg Cap) 300 mg PO TID ABIODUN Stop: 03/01/23 20:59 Last Admin: 02/27/23 08:19 Dose: 300 mg Glucagon (Glucagon For Inj 1 Mg Vial) 1 mg SQ UD PRN; Protocol PRN Reason: Hypoglycemia Protocol Stop: 03/01/23 19:49 Glucose (Glucose 10 Tab/Tube) 4 - 8 tab PO UD PRN; Protocol PRN Reason: Hypoglycemia Treatment Stop: 03/01/23 19:49 Glucose (Glucose 40% Gel 15 Gm Tube) 15 - 30 gm PO UD PRN; Protocol PRN Reason: Hypoglycemia Protocol Stop: 03/01/23 19:49 Insulin Aspart (Insulin Aspart Per Unit Charge) 0 units SC ACHS [facility] Stop: 03/15/23 16:29 Last Admin: 02/27/23 08:32 Dose: 2 units Loratadine (Loratadine 10 Mg Tab) [facility] [place] Stop: 03/02/23 08:59 Last Admin: 02/27/23 08:20 Dose: 10 mg Lorazepam (Lorazepam 0.5 Mg Tab) 0.5 mg PO DAILY PRN PRN Reason: anxiety/sleep Stop: 03/01/23 19:51 Last Admin: 02/26/23 21:42 Dose: 0.5 mg Magnesium Hydroxide (Magnesium Hydroxide Susp 30 Ml Udc) 30 ml PO Q12H PRN PRN Reason: Constipation Stop: 03/01/23 18:56 Magnesium Oxide (Magnesium Oxide 400 Mg Tab) [facility] [place] Stop: 03/02/23 08:59 Last Admin: 02/27/23 08:19 Dose: 400 mg Metoprolol Succinate (Metoprolol Succ 25mg Ext Rel Tab) 25 mg PO QAM [facility] Stop: 03/02/23 08:59 Last Admin: 02/27/23 08:18 Dose: 25 mg Miconazole Nitrate (Miconazole Nitrate Powder 85 Gm) 1 appln EXT PRN PRN PRN Reason: Rash Stop: 03/09/23 15:55 Miconazole Nitrate (Miconazole Nitrate Powder 85 Gm) 1 appln EXT PRN PRN PRN Reason: groin irritation Stop: 03/26/23 14:29 Last Admin: 02/24/23 18:16 Dose: 1 appln Mirtazapine (Mirtazapine Tab 15 Mg Tab) 30 mg PO HS [facility] Stop: 03/01/23 20:59 Last Admin: 02/26/23 21:38 Dose: 30 mg Miscellaneous (Carbohydrates For Hypoglycemia ) 15 - 30 gm PO UD PRN PRN Reason: Hypoglycemia Protocol Stop: 03/01/23 19:49 Multivitamins (Multivitamin Tab) 1 tab PO QAM [facility] Stop: 03/02/23 16:29 Last Admin: 02/27/23 08:19 Dose: 1 tab Ondansetron HCl (Ondansetron Inj 2 Mg/Ml 2 Ml Vial) 4 mg IV Q6H PRN PRN Reason: Nausea Stop: 03/01/23 18:56 Oxycodone HCl (Oxycodone Hcl Ir 5 Mg Tab (Immediate Release)) 5 mg PO Q4H PRN PRN Reason: Pain Stop: 02/27/23 20:36 Last Admin: 02/27/23 04:31 Dose: 5 mg Polyethylene Glycol (Polyethylene (Miralax) 17 Gm Pack) 17 gm PO DAILY PRN PRN Reason: Constipation Stop: 03/01/23 18:56 Last Admin: 02/04/23 09:06 Dose: 17 gm Potassium Chloride (Potassium Chloride 10 Meq Tabcr) 10 meq PO DAILY [facility] Stop: 03/21/23 08:59 Last Admin: 02/27/23 08:19 Dose: 10 meq Warfarin Sodium (Warfarin Sod 2 Mg Tab) 2 mg PO DAILY@1600 [facility] Stop: 03/24/23 15:59 Last Admin: 02/26/23 15:23 Dose: 2 mg Zolpidem Tartrate (Zolpidem Tartrate 5 Mg Tab) 5 mg PO HS PRN PRN Reason: Insomnia Stop: 03/01/23 20:59 Last Admin: 02/26/23 23:29 Dose: 5 mg (6) Coronary artery disease Associated angina: without angina Coronary Disease-Associated Artery/Lesion type: [place] artery [place] vs. transplanted heart: [place] heart Qualified Code(s): I25.10 - Atherosclerotic heart disease of [place] coronary artery without angina pectoris (7) Atrial fibrillation Atrial fibrillation type: unspecified Qualified Code(s): I48.91 - Unspecified atrial fibrillation
--- NOTE | 2023-02-27 13:04 | Podiatry Consultation ---
Date of Consultation February 27, 2023 Assessment & Plan (1) Diabetic infection of left foot: I do feel patient is stable and ready for discharge from my standpoint. We will arrange for follow-up on March 06 at 1 PM. I have asked that they not have his dressings changed until that follow-up visit they are to be left in place clean dry and intact even at [facility]. I understand the delay in patient being discharged has been bed placement at [facility]. I again discussed with both patient and his home health aide present at visit that he will follow-up with me on March 06 at 1 PM. They are to leave all dressings intact. He was understanding of this in terms of weightbearing status will not apply weight to the left foot and will use right foot for transitions. (2) PAD (peripheral artery disease): History of Present Illness Attending Physician: Lulu Ewing, History of Present Illness Patient is a very pleasant 87-year-old male seen at bedside today for postop evaluation. Home health aide also present at visit. Date of surgery February 13, 2023. Postop day #14 Status post left foot fifth toe amputation fifth metatarsal resection ulcer de bridement bone biopsy application of TheraSkin graft. Patient is doing and feeling well no acute concerns all dressings were removed incision was evaluated all sutures intact with graft in place. Patient was elevating left foot having no pain or discomfort they are anticipating getting discharged to [facility] today. He will continue to not apply any weight to the left foot will use his right foot for any pivoting or transitions that need to be made. I will arrange for patient to be seen in my office on Monday at March 06 at 1 PM for postop evaluation. Allergies Allergy/AdvReac Type Severity Reaction Status Date / Time ampicillin Allergy Intermediate Rash Verified 02/15/23 15:17 Macrolide Antibiotics Allergy Unknown PER Verified 01/30/23 16:04 MEDICAL RECORD sildenafil Allergy Unknown SWELLING Verified 01/30/23 16:04 OF FACE AND HEAD streptomycin Allergy Unknown N/V Verified 01/30/23 16:04 sulfite Allergy Unknown THROAT Verified 01/30/23 16:04 SWELLING nitrofurantoin AdvReac Diarrhea Verified 01/30/23 16:04 VASODILATORS Allergy Unknown "PERIPHERAL Uncoded 01/30/23 16:04 DILATOR" swelling of face and head Home Medications Medication Instructions Recorded Confirmed Type amiodarone 200 mg tablet 200 mg PO QAM 01/02/18 01/30/23 History insulin glargine 100 unit/mL 8 units subcut BID 01/02/18 01/30/23 History subcutaneous solution loratadine 10 mg tablet 10 mg PO QAM 01/02/18 01/30/23 History magnesium oxide 400 mg (241.3 mg 400 mg PO QAM 01/02/18 01/30/23 History magnesium) tablet metoprolol succinate 25 mg 25 mg PO QAM 01/02/18 01/30/23 History tablet,extended release 24 hr zolpidem 5 mg tablet (Ambien) 5 mg PO HS 01/02/18 01/30/23 History gabapentin 300 mg capsule 300 mg PO TID 03/10/18 01/30/23 History docusate sodium 100 mg capsule 100 mg PO BID 04/27/22 01/30/23 History (Colace) hydrocodone 5 mg-acetaminophen 325 0.5 tab PO Q12H PRN pain,severe 04/27/22 01/30/23 History mg tablet mometasone 0.1 % topical solution 1 applic topical DAILY PRN Itching 04/27/22 01/30/23 History acetaminophen 325 mg capsule 650 mg PO QID PRN PAIN/FEVER 05/10/22 01/30/23 History furosemide 20 mg tablet 40 mg PO QAM 06/28/22 01/30/23 History bisacodyl 10 mg rectal suppository 10 mg [place] DAILY PRN Constipation 12/01/22 01/30/23 History calcium carbonate 500 mg-vitamin 1 tab PO DAILY 12/01/22 01/30/23 History D3 5 mcg (200 unit) tablet (Oyster Shell Calcium-Vitamin D3) clotrimazole 1 % topical cream 1 applic topical UD 12/01/22 01/30/23 History lorazepam 0.5 mg tablet 0.5 mg PO DAILY PRN anxiety/sleep 12/01/22 01/30/23 History mirtazapine 30 mg tablet (Remeron) 30 mg PO DAILY 12/01/22 01/30/23 History multivit,stress formula-zinc tablet 1 tab PO DAILY 12/01/22 01/30/23 History vitamin A-vitamin C-vit E-min 1 tab PO DAILY 12/01/22 01/30/23 History tablet warfarin 1 mg tablet 1 - 2 mg PO UD 12/01/22 01/30/23 History Patient History Medical History PVD (peripheral vascular disease) Berman catheter in place gets changed monthly Cerebrovascular disease Heart failure History of airway aspiration Ambulatory dysfunction History of hepatitis B Renal failure ? stage History of Mohs micrographic surgery for skin cancer History of prostate cancer PROSTATECTOMY History of melanoma HX MELANOMA, HX MULTIPLE SKIN CA & REMOVED Diabetic neuropathy History of colon cancer HX COLON SURGERY Chronic systolic CHF (congestive heart failure) Diabetes mellitus type 2 with complications Hypertension Pacemaker "DUAL" - PT NOT SURE BRAND, PLACED D/T AFIB - [facility] Atrial fibrillation Coronary artery disease Lumbar spinal stenosis Compression fracture of L4 lumbar vertebra HX BROKEN BACK Generalized OA Dyslipidemia Surgical History History of anesthesia reaction WITH TESTICULAR SURGERY, [facility] - INCREASED BP & HAD TO STAY OVERNIGHT History of cardiac cath years ago> [facility] - CHECKING FOR BLOCKAGE - NO STENTS History of testicular surgery History of colonoscopy MULTIPLE History of tonsillectomy and adenoidectomy History of right hemicolectomy H/O prostatectomy Family History Mother Coronary heart disease Father Heart disease Social History Smoking Status: Never smoker Second Hand Exposure: No; Do You Dip or Chew Tobacco: No; Hx Alcohol Use: No Hx Substance Use: No Preferred Language: [place] Communication Ability: Effective Hearing Ability: Hard of Hearing Non Destructive Testing Inspector Required: No Beliefs That Will Affect Care: None marital status: Single Current Living Situation: Alone Current Living Situation Comment: caregivers come to see him daily current occupational status: retired How many Children do You have: 0 Feels Safe at Home: Yes Diet: diabetic Diet Comment: Increased protein for healing per chart during the past year weight has: remained stable Assistive Devices: Hospital Bed, Scooter/Electric Scooter, Walker and Wheelchair Physical Exam Skin: Skin was clean dry and intact sutures intact all dressings removed graft in place. Dressings reapplied consisting of Adaptic gauze roll gauze and an Rey bandage. Pedal pulse specifically dorsalis pedis palpable 1 out of 4. Results & Data Vital Signs (Past 12 Hours) Vital Signs Temp Pulse Resp BP Pulse Ox O2 Del Method 02/27/23 07:50 36.4 C L 62 18 151/78 H 98 Room Air
[2023-02-27] MEDS: WARFARIN SOD 2 MG TAB PO SCH (15:57)
[2023-02-27] MEDS: MIRTAZAPINE TAB 15 MG TAB PO SCH (21:18)
[2023-02-27] MEDS: AMIODARONE 200 MG TAB PO SCH (21:19)
[2023-02-27] MEDS: LORazepam 0.5 MG TAB PO PRN (21:22)
[2023-02-27] MEDS: ZOLPIDEM TARTRATE 5 MG TAB PO PRN (23:29)
[2023-02-28 07:41] LABS: Hematocrit (blood only) 37.7 % (42.0-52.0); Hemoglobin 12.7 g/dl (14.0-18.0); Mean Corpuscular Hemoglobin 30.7 pg (25.0-34.0); Mean Corpuscular Hgb Conc 33.7 g/dL (32.0-36.0); Mean Corpuscular Volume 91.1 fL (80.0-100.0); Platelet Count 259 K/uL (130-400); RDW Coefficient of Variation 15.9 % (11.5-14.5); RDW Standard Deviation 53.1 fL (36.4-46.3); Red Blood Count 4.14 M/uL (4.70-6.10); White Blood Count 8.11 K/ul (4.8-10.8)
[2023-02-28 07:56] LABS: INR 2.6 (0.9-1.1); Prothrombin Time 26.7 Seconds (9.0-12.0)
[2023-02-28 08:09] LABS: BUN Creatinine Ratio 18.5 (10-20); Calcium 8.2 mg/dl (8.6-10.3); Creatinine Clr Calc Pharmacy 48.4 ml/min; Est GFR (African American) 56.9 ml/min; Est GFR (Non-African American) 49.1 ml/min; Potassium 4.1 mmol/L (3.5-5.1)
[2023-02-28] MEDS: MULTIVITAMIN TAB PO SCH (08:27)
[2023-02-28] MEDS: FUROSEMIDE 20 MG TAB PO SCH (08:27)
[2023-02-28] MEDS: LORATADINE 10 MG TAB PO SCH (08:28)
[2023-02-28] MEDS: CALCIUM CITRATE 950 MG TAB PO SCH (08:28)
[2023-02-28] MEDS: CLOPIDOGREL BISULFATE 75 MG TAB PO SCH (08:28)
[2023-02-28] MEDS: METOPROLOL SUCC 25MG EXT REL TAB PO SCH (08:28)
[2023-02-28] MEDS: GABAPENTIN 300 MG CAP PO SCH (08:29)
[2023-02-28] MEDS: MAGNESIUM OXIDE 400 MG TAB PO SCH (08:30)
[2023-02-28] MEDS: POTASSIUM CHLORIDE 10 MEQ TABCR PO SCH (08:37)
[2023-02-28] MEDS: DOCUSATE SODIUM 100 MG CAP PO SCH (08:40)
[2023-02-28] MEDS: INSULIN ASPART PER UNIT CHARGE SC SCH (08:45)
--- NOTE | 2023-02-28 10:24 | Discharge Summary ---
Discharge Summary Date of Service February 28, 2023 Principal Dx & Hospital Course #1 = Principal Diagnosis (1) Diabetic infection of left foot: (2) Chronic systolic heart failure: (3) CKD (chronic kidney disease), stage III: (4) Pacemaker: (5) Diabetes mellitus type 2 with complications: (6) Coronary artery disease: (7) Atrial fibrillation: Plan Mr. Thayer is an 87 year old gentleman that presented to the ED on 01/30 per recommendations by wound clinic for evaluation of his non healing foot wound. He was seen in the setting of persistent non healing diabetic ulcers of the 5th metatarsal showing signs of tissue loss and tunneling. He has a history of PAD, CAD, atrial fibrillation on warfarin, diabetes with neuropathy and history of foot wounds. He completed a course of doxycycline 2 weeks [employer]; however, it was noted that the wound was with purulent drainage suggesting signs of deeper infection. Discussion with podiatry was had, ultimately confirmed clean margins. Contacted ID for further abx duration recommendations; however, noted diffuse rash c/w drug eruption across abdomen on 02/15, which resolved with the discontinuation of ampicillin.Plans for vancomycin x 7 days post operatively, EOT 02/22 Discharge delayed due to pending bed availability. 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 Surface wound culture from admission showing pansensitive Enterococcus Patient was previously on empiric Dapto and Zosyn. Seen by ID who recommended IV ampicillin 2g (started on 02/03/2023, d/c 02/15) Bone biopsy and repeat/deep cultures done on 02/06 by podiatry -Bone biopsy pathology consistent with osteomyelitis -Bone and foot sample Cx from 02/06 growing corynebacterium and enterococcus faecalis sensitive to ampicillin s/p Left Foot Fifth Ray Resection, ulcer debridement, with plans for OP follow up with Podiatry on 02/20 assuming dispo -Continue Vancomycin EOT 02/22 -Podiatry changed dressing 02/20, and again today 02/27 - arranged f/u on March 06 at 1 PM. Leave current dressing in place until that time and NWB to left foot. #Peripheral arterial occlusive disease status post angioplasty and stenting of left lower extremity by interventional cardiology on 02/02. Recommendations noted: -continue Plavix for 1 month and follow-up with vascular surgery in 2 weeks 03/03 EOT Anticoagulation with warfarin (see below) Continue Plavix #Paroxysmal atrial fibrillation Continue Amiodarone, metoprolol Home dose of Coumadin is 1 mg MWF and 2 mg rest of the week. INR therapeutic, cont current regimen. Pacemaker in place #Chronic Heart Failure with Mildly Reduced EF Last ECHO 02/11: LV function mildly reduced. LV wall thickness concentric. EF 45%. Grade I DDx. Lasix held iso ALISSA -Continue lasix 10mg in am #ALISSA on CKD III *resolved Chronic Berman Monitor renal function Avoid nephrotoxic agents as able Continue lasix 10mg in am #DM II with peripheral neuropathy HbA1C: 6.6 Continue Gabapentin Continue insulin per protocol Monitor BGs pressure ulceration-gluteus, cont per WOCN nurse. Cont efforts to mobilize patient. No blue chux per WOCN. Diet: HH/DMII DVT Px: Coumadin Dispo: SNF in am . Lulu Ewing DO [facility] Hospitalist Discharge Exam CONSTITUTIONAL: WNWD, vitals as above, generally well-appearing EYES: normal conjunctivae, no scleral icterus ENT: external ear and nose normal, oropharynx clear NECK: trachea midline, no lymphadenopathy RESPIRATORY: clear to auscultation bilaterally, no crackles, rales or wheezes, normal respiratory effort CARDIOVASCULAR: regular rate and rhythm, no peripheral edema. CHEST: inspection of chest was normal GASTROINTESTINAL: soft, nontender, ND, no guarding MUSCULOSKELETAL: generalized weakness, head is normocephalic and atraumatic, surgical dressing in place on left foot. SKIN: warm and dry, morbilliform erythematous rash on his back and posterior neck, not present on abdomen or chest today-improved NEUROLOGIC: CN 2-12 grossly intact, no sensory deficit, normal cognition, normal speech, no tremor PSYCHIATRIC: alert cooperative and oriented to person, place and time. Euthymic mood, makes good eye contact, language grossly intact, recent and remote memory grossly intact. Updated Medication List Medication Instructions Recorded Confirmed Type amiodarone 200 mg tablet 200 mg PO QAM 01/02/18 01/30/23 History insulin glargine 100 unit/mL 8 units subcut BID 01/02/18 01/30/23 History subcutaneous solution loratadine 10 mg tablet 10 mg PO QAM 01/02/18 01/30/23 History magnesium oxide 400 mg (241.3 mg 400 mg PO QAM 01/02/18 01/30/23 History magnesium) tablet metoprolol succinate 25 mg 25 mg PO QAM 01/02/18 01/30/23 History tablet,extended release 24 hr zolpidem 5 mg tablet (Ambien) 5 mg PO HS 01/02/18 01/30/23 History gabapentin 300 mg capsule 300 mg PO TID 03/10/18 01/30/23 History docusate sodium 100 mg capsule 100 mg PO BID 04/27/22 01/30/23 History (Colace) hydrocodone 5 mg-acetaminophen 325 0.5 tab PO Q12H PRN pain,severe 04/27/22 01/30/23 History mg tablet mometasone 0.1 % topical solution 1 applic topical DAILY PRN Itching 04/27/22 01/30/23 History acetaminophen 325 mg capsule 650 mg PO QID PRN PAIN/FEVER 05/10/22 01/30/23 History furosemide 20 mg tablet 40 mg PO QAM 06/28/22 01/30/23 History bisacodyl 10 mg rectal suppository 10 mg ID DAILY PRN Constipation 12/01/22 01/30/23 History calcium carbonate 500 mg-vitamin 1 tab PO DAILY 12/01/22 01/30/23 History D3 5 mcg (200 unit) tablet (Oyster Shell Calcium-Vitamin D3) clotrimazole 1 % topical cream 1 applic topical UD 12/01/22 01/30/23 History lorazepam 0.5 mg tablet 0.5 mg PO DAILY PRN anxiety/sleep 12/01/22 01/30/23 History mirtazapine 30 mg tablet (Remeron) 30 mg PO DAILY 12/01/22 01/30/23 History multivit,stress formula-zinc tablet 1 tab PO DAILY 12/01/22 01/30/23 History vitamin A-vitamin C-vit E-min 1 tab PO DAILY 12/01/22 01/30/23 History tablet warfarin 1 mg tablet 1 - 2 mg PO UD 12/01/22 01/30/23 History clopidogrel 75 mg tablet 75 mg PO QAM #30 tabs 02/28/23 Rx Hospital Stay Data Consultations 01/30/23 18:50 ED Decision to Admit Stat 01/31/23 08:00 Consult Cardiology Routine 01/31/23 08:40 Consult Infectious Diseases Routine 01/31/23 09:32 Consult Podiatry Routine Procedures Performed Operation Date: 02/13/23 12:00 Actual Procedures p Left Foot Fifth Ray Resection(Left) - Karol Tran DPM s Ulcer Debridement(Left) - Karol Tran DPM Diagnostic Imagining Performed 01/30/23 18:14 CT foot LT wo con Stat 02/01/23 07:02 CL Cath Imgs for PACS use only Routine 02/02/23 07:26 CL Cath Imgs for PACS use only Routine Pending Results Patient Have Any Pending Studies at Discharge: No Discharge Instructions Given to Patient (Per Discharging Provider) Please take all medications as instructed on discharge as below You have completed the course of antibiotics for your foot infection. Please follow-up with infectious disease at [facility] within the next few weeks. Continue wound care per podiatry and wound care clinic. Please follow-up with Dr. Genaro Ulrich later this week. Please continue Plavix and warfarin until seen by Dr. Ulrich after having a left lower extremity stent placed on 02/02. Please continue with wound care for your pressure injury on your buttocks. Mobilizing out of bed is encouraged as long as not bearing weight on the left foot per surgeon. If in bed, you must turn every 2 hours to keep pressure off bony prominences and avoid further skin breakdown. It was a pleasure taking care of you! Please call if you have any questions or problems. You can reach a [facility] hospitalist on duty at [facility] 24 hours a day by calling [phone]. Take care of yourself. Lulu Ewing, DO [facility] Hospitalist
== END 2023-02-28 11:32 | disposition home or self-care (01) | DRG 616 ==
LOC: ED 15:14 → SUATTDRO 18:57 → EDINP 18:57 → 2N 22:52 → 4W 02-02 16:50 → 2N 02-09 19:13 → 3W 02-26 12:01
PROC: CLB.AEU (2023-02-02 11:00)

== ENCOUNTER 2023-08-18 15:25 | Inpatient (IN) ==
--- NOTE | 2023-08-18 15:57 | Emergency Department Note ---
Impression & Plan Acute UTI ADMIT ED Provider Note HPI: History obtained from patient and assignment clerk at the bedside The patient is a 88-year-old gentleman with history of atrial fibrillation, on Coumadin, history of PAD with ambulatory dysfunction, currently bedbound, who presents the emergency department with a chief complaint of wound evaluation. Patient states that his home health nurse saw him today and had some concern about the appearance of his sacral wound. Over the past several days it has gotten darker in coloration and had concern that he had an infection over the wound. Patient therefore came to the ED to be assessed. Patient states that he otherwise does not have any complaints. His assignment clerk states that he has had some low-grade fevers recently when home health came to see him citing that 2 days ago he had a temperature of 100.5 Fahrenheit. Patient denies any cough, denies any headache, denies any chest pain or shortness of breath. On arrival here to the ED the patient is mildly tachycardic but otherwise hemodynamically stable, he is afebrile on arrival. ROS: - Per HPI Differential Diagnosis: Urinary tract infection, cellulitis, sacral ulcer with underlying abscess, osteomyelitis of the sacrum, necrotizing soft tissue infection, sepsis, amongst other potential pathologies. *Outpatient medications and allergy history reviewed. PE: General: Alert, no acute distress HEENT: Normocephalic, trachea midline Eyes: Extraocular eye movement is intact, no scleral erythema Pulmonary: Clear to auscultation bilaterally, no wheezing Cardio: Regular rate and rhythm GI: Abdomen is soft to palpation : No suprapubic tenderness MSK: Several ischemic appearing chronic wounds to the digits of the left foot, fifth digit of the left foot is status post amputation, there is no cyanosis, there is no crepitus to palpation of the surrounding soft tissues, there is a palpable dorsalis pedis pulse in the bilateral lower extremities Skin: Erythematous appearing ulcerations over the sacrum without any purulent drainage, there is a small overlying eschar, no exposed subcutaneous fat or bone Neuro: Alert, no focal deficits Psychiatric: Cooperative INDEPENDENT INTERPRETATIONS: quality assurance monitor: (As interpreted by myself): - An order was placed for continuous cardiac monitoring - Patient was noted to be in paced rhythm with a rate of 60 EKG: (As interpreted by myself): Rate: Paced at approximately 60 with significant underlying artifact Rhythm: Paced rhythm with underlying artifact Intervals: QRS 376 ms, QTc 753 ms, VT indeterminate/paced ST changes: No ST elevation Time: 1534 Chest x-ray: (As interpreted by myself): No acute findings Interventions provided in ED: -IV fluid bolus, IV Zosyn Medical Decision Making: IV was established and lab work obtained, patient was placed on desk monitor. Patient is hemodynamically stable here in the ED. Lab work shows no leukocytosis, hemoglobin is normal, platelet count is normal, INR is therapeutic at 2.2, CMP does not show any critical findings, lactic acid is normal, procalcitonin is low, troponin is negative. Patient does have an indwelling Berman catheter, urinalysis suggest possible infection. Will send for culture. CT imaging of the pelvis was obtained that shows evidence of subcutaneous edema around the area of concern where the sacral ulcers are located however there is no abscess. No osteomyelitis. Chest x-ray does not show any evidence of pneumonia per my interpretation. On my reassessment I had an extensive discussion with the patient and his assignment clerk at the bedside. Patient states at this point he would prefer to be admitted for follow-up on blood cultures and initiation of IV antibiotics. Patient's assignment clerk at the bedside states that the wound care nurse was very concerned about the appearance of the wound and thought he would also benefit from admission and IV antibiotics. Case was therefore discussed with the on- call hospitalist, Dr. Cruz, patient was administered IV Zosyn here in the ED as well as IV vancomycin for broad-spectrum coverage. Patient was admitted in stable condition. Consultants/Discussions held with other healthcare providers: -Hospitalist, Dr. Cruz Disposition discussion held by myself with: -Patient and assignment clerk at bedside Diagnosis: 1. Sacral ulceration with surrounding cellulitic changes, acute 2. Urinary tract infection, acute 3. Fever by history 4. Peripheral artery disease with ulcerations of the digits of the left foot, subacute/chronic Disposition: Admission Bruno Schaefer DO Emergency Medicine Past Med/Surg History Medical History (Updated 08/18/23 @ 21:41 by Bruno Schaefer DO) Bacterial septicemia PVD (peripheral vascular disease) Berman catheter in place gets changed monthly Cerebrovascular disease Heart failure History of airway aspiration Ambulatory dysfunction History of hepatitis B Renal failure ? stage History of Mohs micrographic surgery for skin cancer History of prostate cancer PROSTATECTOMY History of melanoma HX MELANOMA, HX MULTIPLE SKIN CA & REMOVED Diabetic neuropathy History of colon cancer HX COLON SURGERY Chronic systolic CHF (congestive heart failure) Diabetes mellitus type 2 with complications Hypertension Pacemaker "DUAL" - PT NOT SURE BRAND, PLACED D/T AFIB - [facility] Atrial fibrillation Coronary artery disease Lumbar spinal stenosis Compression fracture of L4 lumbar vertebra HX BROKEN BACK Generalized OA Dyslipidemia Surgical History (Updated 03/10/23 @ 08:16 by Almaz Alcaraz, RN) 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 History of anesthesia reaction WITH TESTICULAR SURGERY, [facility] - INCREASED BP & HAD TO STAY OVERNIGHT History of cardiac cath years ago> [facility] - CHECKING FOR BLOCKAGE - NO STENTS History of testicular surgery History of colonoscopy MULTIPLE History of tonsillectomy and adenoidectomy History of right hemicolectomy H/O prostatectomy Family History Mother Coronary heart disease Father Heart disease Social History Smoking Status: Never smoker Second Hand Exposure: No; Do You Dip or Chew Tobacco: No; Hx Alcohol Use: No Hx Substance Use: No Preferred Language: Namibian Communication Ability: Effective Hearing Ability: Hard of Hearing Travel Writer Required: No Beliefs That Will Affect Care: None marital status: Single Current Living Situation: Alone Current Living Situation Comment: caregivers come to see him daily current occupational status: retired How many Children do You have: 0 Feels Safe at Home: Yes Diet: diabetic Diet Comment: Increased protein for healing per chart during the past year weight has: remained stable Assistive Devices: Hospital Bed, Scooter/Electric Scooter, Walker and Wheelchair Allergies Allergies Allergy/AdvReac Type Severity Reaction Status Date / Time ampicillin Allergy Intermediate Rash Verified 08/16/23 13:54 Macrolide Antibiotics Allergy Unknown PER Verified 08/16/23 13:54 MEDICAL RECORD sildenafil Allergy Unknown SWELLING Verified 08/16/23 13:54 OF FACE AND HEAD streptomycin Allergy Unknown N/V Verified 08/16/23 13:54 sulfite Allergy Unknown THROAT Verified 08/16/23 13:54 SWELLING nitrofurantoin AdvReac Diarrhea Verified 08/16/23 13:54 VASODILATORS Allergy Unknown "PERIPHERAL Uncoded 08/16/23 13:54 DILATOR" swelling of face and head Home Meds Home Medications Medication Instructions Recorded Confirmed amiodarone 200 mg tablet 200 mg PO QAM 01/02/18 08/18/23 insulin glargine 100 unit/mL 8 units subcut BID 01/02/18 08/18/23 subcutaneous solution loratadine 10 mg tablet 10 mg PO QAM 01/02/18 08/18/23 magnesium oxide 400 mg (241.3 mg 400 mg PO QAM 01/02/18 08/18/23 magnesium) tablet metoprolol succinate 25 mg 25 mg PO QAM 01/02/18 08/18/23 tablet,extended release 24 hr gabapentin 300 mg capsule 300 mg PO TID 03/10/18 08/18/23 docusate sodium 100 mg capsule 100 mg PO BID 04/27/22 08/18/23 (Colace) mometasone 0.1 % topical solution 1 applic topical .EVERY 24 HOURS 04/27/22 08/18/23 PRN Itching acetaminophen 325 mg capsule 650 mg PO Q4 PRN PAIN/FEVER 05/10/22 08/18/23 bisacodyl 10 mg rectal suppository 10 mg VT .EVERY 24 HOURS PRN 12/01/22 08/18/23 Constipation calcium carbonate 500 mg-vitamin 1 tab PO QAM 12/01/22 08/18/23 D3 5 mcg (200 unit) tablet (Oyster Shell Calcium-Vitamin D3) lorazepam 0.5 mg tablet 0.5 mg PO HS 12/01/22 08/18/23 mirtazapine 30 mg tablet (Remeron) 30 mg PO HS 12/01/22 08/18/23 multivit,stress formula-zinc tablet 1 tab PO DAILY 12/01/22 08/18/23 warfarin 1 mg tablet 1 mg PO 3XWK 12/01/22 08/18/23 midodrine 2.5 mg tablet 2.5 mg PO BID 03/10/23 08/18/23 zolpidem 5 mg tablet (Ambien) 5 mg PO QPM 03/10/23 08/18/23 ceramides 1,3,6-II 1 applic topical DAILY 04/14/23 08/18/23 clotrimazole-betamethasone 1 1 applic topical AMHS 04/14/23 08/18/23 %-0.05 % topical cream furosemide 40 mg tablet 40 mg PO QAM 04/14/23 08/18/23 otlmbcxr-[id number]-[id number] 250 mg-dha 90 1 cap PO QAM 04/14/23 08/18/23 mg-epa 160 [id number]-zeax capsule (Ocuvite Adult 50 Plus) oxycodone 5 mg tablet 5 mg PO Q12H PRN mod-severe pain 04/14/23 08/18/23 warfarin 2 mg tablet 2 mg PO 4XWK 04/14/23 08/18/23 melatonin 5 mg capsule 5 mg PO HS 06/15/23 08/18/23 methenamine hippurate 1 gram tablet 1 g PO DAILY 08/18/23 08/18/23 potassium chloride 20 mEq 0 meq PO UD 08/18/23 08/18/23 tablet,extended release(part/cryst) Previous Rx's Medication Instructions Recorded nystatin 100,000 unit/gram topical 1 applic topical DAILY #60 grams 06/21/23 powder Results & Data (ED) Vital Signs Vital Signs - 24 hr 08/18/23 15:31 08/18/23 15:33 08/18/23 15:40 Temperature 36.7 C Temperature Source Oral Pulse Rate 108 H 77 69 Pulse Rate from SpO2 Sensor 67 64 Respiratory Rate 20 6 L 15 Respiratory Effort / Characteristics Non-Labored Spontaneous Respiratory Depth Normal Respiratory Pattern Regular Blood Pressure 151/93 H Blood Pressure Mean 112 Blood Pressure Position Semi-fowlers Pulse Oximetry 97 100 97 Oxygen Delivery Method Room Air Sepsis Recent Fever Within 48 Hours Yes Sepsis New/Unexplained Change in Mental Status No Sepsis Action Taken by Nursing No Action Required 08/18/23 15:47 08/18/23 15:50 08/18/23 16:00 Temperature Temperature Source Pulse Rate 73 64 Pulse Rate from SpO2 Sensor Respiratory Rate 4 L 7 L Respiratory Effort / Characteristics Respiratory Depth Respiratory Pattern Blood Pressure Blood Pressure Mean Blood Pressure Position Pulse Oximetry Oxygen Delivery Method Room Air Sepsis Recent Fever Within 48 Hours Sepsis New/Unexplained Change in Mental Status Sepsis Action Taken by Nursing 08/18/23 16:00 08/18/23 16:10 08/18/23 16:12 Temperature Temperature Source Pulse Rate 60 67 Pulse Rate from SpO2 Sensor 60 Respiratory Rate 13 Respiratory Effort / Characteristics Respiratory Depth Respiratory Pattern Blood Pressure 127/68 Blood Pressure Mean 80 Blood Pressure Position Pulse Oximetry 99 Oxygen Delivery Method Sepsis Recent Fever Within 48 Hours Sepsis New/Unexplained Change in Mental Status Sepsis Action Taken by Nursing 08/18/23 16:20 08/18/23 16:23 08/18/23 16:30 Temperature Temperature Source Pulse Rate 64 60 65 Pulse Rate from SpO2 Sensor 59 L 58 L 61 Respiratory Rate 14 11 L 19 Respiratory Effort / Characteristics Respiratory Depth Respiratory Pattern Blood Pressure 111/57 L 101/67 Blood Pressure Mean 75 78 Blood Pressure Position Pulse Oximetry 97 97 96 Oxygen Delivery Method Sepsis Recent Fever Within 48 Hours Sepsis New/Unexplained Change in Mental Status Sepsis Action Taken by Nursing 08/18/23 16:45 08/18/23 17:30 08/18/23 18:00 Temperature Temperature Source Pulse Rate 60 60 96 H Pulse Rate from SpO2 Sensor 60 60 Respiratory Rate 12 6 L 18 Respiratory Effort / Characteristics Respiratory Depth Respiratory Pattern Blood Pressure 118/61 Blood Pressure Mean 80 Blood Pressure Position Pulse Oximetry 98 98 Oxygen Delivery Method Sepsis Recent Fever Within 48 Hours Sepsis New/Unexplained Change in Mental Status Sepsis Action Taken by Nursing 08/18/23 18:15 08/18/23 18:30 08/18/23 18:45 Temperature Temperature Source Pulse Rate 112 H 120 H Pulse Rate from SpO2 Sensor 60 60 60 Respiratory Rate 22 13 15 Respiratory Effort / Characteristics Respiratory Depth Respiratory Pattern Blood Pressure 130/66 138/61 128/87 Blood Pressure Mean 87 86 100 Blood Pressure Position Pulse Oximetry 98 98 98 Oxygen Delivery Method Sepsis Recent Fever Within 48 Hours Sepsis New/Unexplained Change in Mental Status Sepsis Action Taken by Nursing 08/18/23 21:03 Temperature Temperature Source Pulse Rate 60 Pulse Rate from SpO2 Sensor Respiratory Rate Respiratory Effort / Characteristics Respiratory Depth Respiratory Pattern Blood Pressure Blood Pressure Mean Blood Pressure Position Pulse Oximetry Oxygen Delivery Method Sepsis Recent Fever Within 48 Hours Sepsis New/Unexplained Change in Mental Status Sepsis Action Taken by Nursing Laboratory Data 08/18/23 15:47 08/18/23 15:47 Lab Results 08/18/23 08/18/23 08/18/23 Range/Units 15:47 16:00 16:57 WBC 10.11 (4.8-10.8) K/ul RBC 5.19 (4.70-6.10) M/uL Hgb 15.1 (14.0-18.0) g/dl Hct 46.6 (42.0-52.0) % MCV 89.8 (80.0-100.0) fL MCH 29.1 (25.0-34.0) pg MCHC 32.4 (32.0-36.0) g/dL RDW Std Deviation 53.8 H (36.4-46.3) fL RDW Coeff of Gabriela 16.3 H (11.5-14.5) % Plt Count 249 (130-400) K/uL MPV 9.7 (9.4-12.4) fL Immature Gran % (Auto) 0.7 % Neut % (Auto) 71.3 % Lymph % (Auto) 20.2 % [place] % (Auto) 7.0 % Eos % (Auto) 0.5 % Baso % (Auto) 0.3 % Neut # (Auto) 7.21 H (1.40-6.50) K/uL Lymph # (Auto) 2.04 (1.20-3.40) K/uL [place] # (Auto) 0.71 H (0.11-0.59) K/uL Eos # (Auto) 0.05 (0.00-0.50) K/uL Baso # (Auto) 0.03 (0.00-0.20) K/uL Immature Gran # (Auto) 0.07 (0.01-0.20) K/uL PT 22.8 H (9.0-12.0) Seconds INR 2.2 H (0.9-1.1) VBG pH 7.39 (7.36-7.41) VBG pCO2 57 H (38-50) mmHg VBG pO2 < 20 mmHg VBG HCO3 35 mmol/L VBG O2 Saturation < 60.0 % VBG Base Excess 7.6 mEq/L Sodium 140 (136-145) mmol/L Potassium 4.3 (3.5-5.1) mmol/L Chloride 103 (98-107) mmol/L Carbon Dioxide 32 (21-32) mmol/L Anion Gap 5 (3-11) BUN 21 (6-23) mg/dl Creatinine 1.12 (0.6-1.4) mg/dl Est Cr Clr Drug Dosing Not Reportable Est GFR ( Amer) 67.6 ml/min Est GFR (Non-Af Amer) 58.3 ml/min BUN/Creatinine Ratio 18.8 (10-20) Glucose 190 H (70-99(Fasting)) mg/dl Lactate 1.7 (0.4-2.0) mmol/L Calcium 8.6 (8.6-10.3) mg/dl Magnesium 2.0 (1.7-2.4) mg/dl Total Bilirubin 0.4 (0.2-1.0) mg/dl Direct Bilirubin 0.1 (0-0.2) mg/dl AST 28 (13-39) U/L ALT 25 (7-52) U/L Alkaline Phosphatase 115 H (34-104) U/L Troponin I High Sens 17.5 (0-20) pg/ml Total Protein 7.3 (6.0-8.3) gm/dl Albumin 3.7 (3.4-5.0) gm/dl Procalcitonin Cancelled 0.04 Urine Color Urine Appearance (Clear) Urine pH (4.5-7.5) Ur Specific Udall (1.000-1.030) Urine Protein (Negative) Urine Glucose (UA) (Negative) Urine Ketones (Negative) Urine Blood (Negative) Urine Nitrite (Negative) Urine Bilirubin (Negative) Urine Urobilinogen (Negative) Ur Leukocyte Esterase (Negative) Urine WBC (Auto) (0-5) /hpf Urine RBC (Auto) (0-2) /hpf U Hyaline Cast (Auto) (0-2) /lpf U Epithel Cells (Auto) (0-2) /hpf Urine Bacteria (Auto) (None Seen) Adenovirus (PCR) (NotDetected) B. pertussis DNA (PCR) (NotDetected) B.parapertussis DNA PCR (NotDetected) C. pneumoniae DNA (PCR) (NotDetected) Coronavirus OC43 (PCR) (NotDetected) Coronavirus HKU1 (PCR) (NotDetected) Coronavirus 229E (PCR) (NotDetected) SARS-CoV-2 (PCR) (NotDetected) Coronavirus NL63 (PCR) (NotDetected) Human Metapneumovir PCR (NotDetected) Influenza Type A (PCR) (NotDetected) Influenza Type B (PCR) (NotDetected) M. pneumoniae (PCR) (NotDetected) Parainfluenza 1 (PCR) (NotDetected) Parainfluenza 2 (PCR) (NotDetected) Parainfluenza 3 (PCR) (NotDetected) Parainfluenza 4 (PCR) (NotDetected) RSV (PCR) (NotDetected) Entero/Rhino (PCR) (NotDetected) 08/18/23 Range/Units Unknown WBC (4.8-10.8) K/ul RBC (4.70-6.10) M/uL Hgb (14.0-18.0) g/dl Hct (42.0-52.0) % MCV (80.0-100.0) fL MCH (25.0-34.0) pg MCHC (32.0-36.0) g/dL RDW Std Deviation (36.4-46.3) fL RDW Coeff of Gabriela (11.5-14.5) % Plt Count (130-400) K/uL MPV (9.4-12.4) fL Immature Gran % (Auto) % Neut % (Auto) % Lymph % (Auto) % [place] % (Auto) % Eos % (Auto) % Baso % (Auto) % Neut # (Auto) (1.40-6.50) K/uL Lymph # (Auto) (1.20-3.40) K/uL [place] # (Auto) (0.11-0.59) K/uL Eos # (Auto) (0.00-0.50) K/uL Baso # (Auto) (0.00-0.20) K/uL Immature Gran # (Auto) (0.01-0.20) K/uL PT (9.0-12.0) Seconds INR (0.9-1.1) VBG pH (7.36-7.41) VBG pCO2 (38-50) mmHg VBG pO2 mmHg VBG HCO3 mmol/L VBG O2 Saturation % VBG Base Excess mEq/L Sodium (136-145) mmol/L Potassium (3.5-5.1) mmol/L Chloride (98-107) mmol/L Carbon Dioxide (21-32) mmol/L Anion Gap (3-11) BUN (6-23) mg/dl Creatinine (0.6-1.4) mg/dl Est Cr Clr Drug Dosing Est GFR ( Amer) ml/min Est GFR (Non-Af Amer) ml/min BUN/Creatinine Ratio (10-20) Glucose (70-99(Fasting)) mg/dl Lactate (0.4-2.0) mmol/L Calcium (8.6-10.3) mg/dl Magnesium (1.7-2.4) mg/dl Total Bilirubin (0.2-1.0) mg/dl Direct Bilirubin (0-0.2) mg/dl AST (13-39) U/L ALT (7-52) U/L Alkaline Phosphatase (34-104) U/L Troponin I High Sens (0-20) pg/ml Total Protein (6.0-8.3) gm/dl Albumin (3.4-5.0) gm/dl Procalcitonin Urine Color Yellow Urine Appearance Cloudy A (Clear) Urine pH 5.0 (4.5-7.5) Ur Specific [place] 1.015 (1.000-1.030) Urine Protein Negative (Negative) Urine Glucose (UA) Negative (Negative) Urine Ketones Negative (Negative) Urine Blood 2+ H (Negative) Urine Nitrite Positive A (Negative) Urine Bilirubin Negative (Negative) Urine Urobilinogen Negative (Negative) Ur Leukocyte Esterase 3+ H (Negative) Urine WBC (Auto) 21-50 H (0-5) /hpf Urine RBC (Auto) 11-20 H (0-2) /hpf U Hyaline Cast (Auto) 3-5 H (0-2) /lpf U Epithel Cells (Auto) 0-2 (0-2) /hpf Urine Bacteria (Auto) 4+ H (None Seen) Adenovirus (PCR) Not Detected (NotDetected) B. pertussis DNA (PCR) Not Detected (NotDetected) B.parapertussis DNA PCR Not Detected (NotDetected) C. pneumoniae DNA (PCR) Not Detected (NotDetected) Coronavirus OC43 (PCR) Not Detected (NotDetected) Coronavirus HKU1 (PCR) Not Detected (NotDetected) Coronavirus 229E (PCR) Not Detected (NotDetected) SARS-CoV-2 (PCR) Not Detected (NotDetected) Coronavirus NL63 (PCR) Not Detected (NotDetected) Human Metapneumovir PCR Not Detected (NotDetected) Influenza Type A (PCR) Not Detected (NotDetected) Influenza Type B (PCR) Not Detected (NotDetected) M. pneumoniae (PCR) Not Detected (NotDetected) Parainfluenza 1 (PCR) Not Detected (NotDetected) Parainfluenza 2 (PCR) Not Detected (NotDetected) Parainfluenza 3 (PCR) Not Detected (NotDetected) Parainfluenza 4 (PCR) Not Detected (NotDetected) RSV (PCR) Not Detected (NotDetected) Entero/Rhino (PCR) Not Detected (NotDetected) Administered Medications Vancomycin HCl 1,750 mg/ (Sodium Chloride) 535 mls @ 200 mls/hr IV NOW ONE Stop: 08/18/23 21:49 Last Admin: 08/18/23 20:41 Dose: 200 mls/hr Documented By: [facility] Discontinued Medications Sodium Chloride (Nss) 500 mls @ 999 mls/hr IV .Q31M ABIODUN Stop: 08/18/23 16:30 Last Infusion: 08/18/23 17:47 Dose: Infused Documented By: Admin: 08/18/23 16:25 Dose: 999 mls/hr Documented By: ISIDRO Piperacillin Sod/Tazobactam Sod (Zosyn) 4.5 gm in 100 mls @ 200 mls/hr IV NOW ONE Stop: 08/18/23 19:25 Last Infusion: 08/18/23 20:03 Dose: Infused Documented By: Admin: 08/18/23 19:27 Dose: 200 mls/hr Documented By: [facility] Ioversol (Optiray 320 100ml) 94 ml IV ONCE ONE Stop: 08/18/23 17:55 Last Admin: 08/18/23 17:54 Dose: 94 ml Documented By: EDK Imaging Data Radiologist's Impression: Chest X-Ray 08/18/23 15:47 XR chest 1V portable CLINICAL HISTORY: Sepsis COMPARISON STUDY: Chest radiograph April 14, 2023. FINDINGS: A dual-lead left subclavian pacer is unchanged in position. There is no pneumothorax or pleural effusion. No consolidation is identified. Cardiomegaly is unchanged. Pulmonary vascularity is normal. Skin folds project over the left chest. IMPRESSION: No acute cardiopulmonary findings. Cardiac megaly. ACT 112: Negative or not required by law. Electronically signed by: Dieudonne Roy M.D. 08/18/2023 4:[address] 08/18/23 15:57 CT pelvis w/IV con only HISTORY: 88 years-old Male Sacral ulcer, eval for underlying infection COMPARISON: CT abdomen and pelvis 01/15/2021 TECHNIQUE: Multiple axial CT images of the bony pelvis were obtained with IV contrast. A dose lowering technique was used consistent with the principals of CIRILO. FINDINGS: Atherosclerosis of the aorta, iliac and femoral arteries. Lymphadenopathy. Decompressed urinary bladder with Berman catheter in place. Urinary bladder wall thickening with diverticula. Moderate sized fat filled inguinal hernias. Prostatectomy with prior geraldo dissection. Colonic diverticulosis. Moderate fecal retention of the rectum with rectal wall thickening and mild perirectal stranding. 2.7 cm exophytic cyst of the inferior pole left kidney. Subcutaneous edema noted likely correlating with the reported sacral decubitus ulcer. No abscess. Degenerative changes of the spine, SI joints and hips. No acute fracture or acute osseous erosion is identified. Cortical thickening of the mid sacrum may represent a healed chronic fracture. Chronic L4 burst fracture is partially imaged. IMPRESSION: 1. There is mild subcutaneous edema of the upper gluteal cleft/presacral tissues. No abscess or evidence of acute osteomyelitis. 2. Prior prostatectomy. 3. Constipation with suggested stercoral proctitis. 4. Colonic diverticulosis. ACT 112: Negative or not required by law. The above report was generated using voice recognition software. It may contain grammatical, syntax or spelling errors. Electronically signed by: Ollie Hendrix M.D. 08/18/2023 6:34 PM Discharge Plan Visit Data Chief Complaint: Wound Stated Complaint: SORES ON LEG, FOOT, BUTTOCKS ED Provider: Bruno Schaefer Discharge Problem: Acute UTI Forms Stand Alone Forms: My [facility] Prescriptions Prescriptions: No Action midodrine 2.5 mg tablet 2.5 mg PO BID Rx Instructions: do not give last dose of day after 6PM or within 4 hrs of bedtime melatonin 5 mg capsule 5 mg PO HS nystatin 100,000 unit/gram powder 1 applic topical DAILY Qty: 60 2RF gabapentin 300 mg capsule 300 mg PO TID insulin glargine 100 unit/mL Solution 8 units SUBCUT BID magnesium oxide 400 mg (241.3 mg magnesium) Tablet 400 mg PO QAM metoprolol succinate 25 mg Tablet Extended Release 24 Hr 25 mg PO QAM loratadine 10 mg Tablet 10 mg PO QAM amiodarone 200 mg tablet 200 mg PO QAM zolpidem [Ambien] 5 mg tablet 5 mg PO QPM acetaminophen 325 mg Capsule 650 mg PO Q4 MDD 3g PRN (Reason: PAIN/FEVER) Rx Instructions: use for mild pain or temp=>100 lorazepam 0.5 mg Tablet 0.5 mg PO HS bisacodyl 10 mg Suppository 10 mg VT .EVERY 24 HOURS PRN (Reason: Constipation) mirtazapine [Remeron] 30 mg Tablet 30 mg PO HS calcium carbonate-vitamin D3 [Oyster Shell Calcium-Vit D3] 500 mg-5 mcg (200 unit) Tablet 1 tab PO QAM multivit,stress formula-zinc Tablet 1 tab PO DAILY warfarin 1 mg Tablet 1 mg PO 3XWK Rx Instructions: give 1 tablet at bedtime every MON,WED,FRI mometasone 0.1 % Solution 1 applic TOPICAL .EVERY 24 HOURS PRN (Reason: Itching) Rx Instructions: apply to affected area daily to back docusate sodium [Colace] 100 mg Capsule 100 mg PO BID furosemide 40 mg tablet 40 mg PO QAM clotrimazole-betamethasone 1-0.05 % cream 1 applic topical AMHS Rx Instructions: apply to sacrum twice a day oxycodone 5 mg tablet 5 mg PO Q12H PRN (Reason: mod-severe pain) CeraVe Lotion 1 applic TOPICAL DAILY Rx Instructions: apply to b/l extremities warfarin 2 mg tablet 2 mg PO 4XWK Rx Instructions: give 2 mg at bedtime every E,,SAT,SUN Ocuvite Adult 50 Plus 250 mg (90 mg-160 mg) Capsule 1 cap PO QAM methenamine hippurate 1 gram tablet 1 g PO DAILY potassium chloride 20 mEq tablet,ER particles/crystals 0 meq PO UD Rx Instructions: unable to verify 08/18/23 Referrals Referrals: Vianey Matamoros MD [Primary Care Provider] -
[2023-08-18] MEDS: SODIUM CHLORIDE 0.9% 500 ML IV SCH (16:25)
[2023-08-18 16:33] LABS: Basophils # (auto) 0.03 K/uL (0.00-0.20); Basophils % (auto) 0.3 %; Eosinophils # (auto) 0.05 K/uL (0.00-0.50); Eosinophils % (auto) 0.5 %; Hematocrit (blood only) 46.6 % (42.0-52.0); Hemoglobin 15.1 g/dl (14.0-18.0); Immature Granulocytes # (auto) 0.07 K/uL (0.01-0.20); Immature Granulocytes % (auto) 0.7 %; Lymphocytes # (auto) 2.04 K/uL (1.20-3.40); Lymphocytes % (auto) 20.2 %; Mean Corpuscular Hemoglobin 29.1 pg (25.0-34.0); Mean Corpuscular Hgb Conc 32.4 g/dL (32.0-36.0); Mean Corpuscular Volume 89.8 fL (80.0-100.0); Mean Platelet Volume 9.7 fL (9.4-12.4); Monocytes # (auto) 0.71 K/uL (0.11-0.59); Neutrophils # (auto) 7.21 K/uL (1.40-6.50); Neutrophils % (auto) 71.3 %; Platelet Count 249 K/uL (130-400); RDW Coefficient of Variation 16.3 % (11.5-14.5); RDW Standard Deviation 53.8 fL (36.4-46.3); Red Blood Count 5.19 M/uL (4.70-6.10); White Blood Count 10.11 K/ul (4.8-10.8)
--- NOTE | 2023-08-18 16:42 | XRay Report ---
XR chest 1V portable CLINICAL HISTORY: Sepsis COMPARISON STUDY: Chest radiograph April 14, 2023. FINDINGS: A dual-lead left subclavian pacer is unchanged in position. There is no pneumothorax or ple ural effusion. No consolidation is identified. Cardiomegaly is unchanged. Pulmonary vascularity is no rmal. Skin folds project over the left chest. IMPRESSION: No acute cardiopulmonary findings. Cardiac megaly. ACT 112: Negative or not required by law. Electronically signed by: Dieudonne Roy M.D. 08/18/2023 4:41 PM
[2023-08-18 16:51] LABS: Alanine Aminotransferase 25 U/L (7-52); Albumin Level 3.7 gm/dl (3.4-5.0); Alkaline Phosphatase 115 U/L (34-104); Anion Gap 5 (3-11); Aspartate Aminotransferase 28 U/L (13-39); BUN Creatinine Ratio 18.8 (10-20); Bilirubin Direct 0.1 mg/dl (0-0.2); Bilirubin,Total 0.4 mg/dl (0.2-1.0); Blood Urea Nitrogen 21 mg/dl (6-23); Calcium 8.6 mg/dl (8.6-10.3); Carbon Dioxide 32 mmol/L (21-32); Chloride 103 mmol/L (98-107); Est GFR (African American) 67.6 ml/min; Est GFR (Non-African American) 58.3 ml/min; Glucose 190 mg/dl (70-99(Fasting)); Potassium 4.3 mmol/L (3.5-5.1); Sodium 140 mmol/L (136-145); Total Protein 7.3 gm/dl (6.0-8.3)
[2023-08-18 16:56] LABS: Troponin I High Sensitivity 17.5 pg/ml (0-20)
[2023-08-18 17:02] LABS: INR 2.2 (0.9-1.1); Prothrombin Time 22.8 Seconds (9.0-12.0)
[2023-08-18 17:05] LABS: Base Excess VBG 7.6 mEq/L; HCO3 VBG 35 mmol/L; Oxygen Saturation VBG < 60.0 %; PCO2 VBG 57 mmHg (38-50); PO2 VBG < 20 mmHg; pH VBG 7.39 (7.36-7.41)
[2023-08-18] MEDS: OPTIRAY 320 100ml IV ONE (17:54)
--- NOTE | 2023-08-18 18:37 | CT Scan Report ---
CT pelvis w/IV con only HISTORY: 88 years-old Male Sacral ulcer, eval for underlying infection COMPARISON: CT abdomen and pelvis 01/15/2021 TECHNIQUE: Multiple axial CT images of the bony pelvis were obtained with IV contrast. A dose lowerin g technique was used consistent with the principals of CIRILO. FINDINGS: Atherosclerosis of the aorta, iliac and femoral arteries. Lymphadenopathy. Decompressed urinary bladd er with Berman catheter in place. Urinary bladder wall thickening with diverticula. Moderate sized fat filled inguinal hernias. Prostatectomy with prior geraldo dissection. Colonic diverticulosis. Moderate fecal retention of the rectum with rectal wall thickening and mild perirectal stranding. 2.7 cm exop hytic cyst of the inferior pole left kidney. Subcutaneous edema noted likely correlating with the rep orted sacral decubitus ulcer. No abscess. Degenerative changes of the spine, SI joints and hips. No acute fracture or acute osseous erosion is identified. Cortical thickening of the mid sacrum may represent a healed chronic fracture. Chronic L4 burst fracture is partially imaged. IMPRESSION: 1. There is mild subcutaneous edema of the upper gluteal cleft/presacral tissues. No abscess or evide nce of acute osteomyelitis. 2. Prior prostatectomy. 3. Constipation with suggested stercoral proctitis. 4. Colonic diverticulosis. ACT 112: Negative or not required by law. The above report was generated using voice recognition software. It may contain grammatical, syntax o r spelling errors. Electronically signed by: Ollie Hendrix M.D. 08/18/2023 6:34 PM
[2023-08-18 18:54] LABS: Appearance Urine Cloudy (Clear); Bacteria Urine Automated 4+ (None Seen); Bilirubin Urine Negative (Negative); Blood Urine 2+ (Negative); Color Urine Yellow; Epithelial Cell Urine Auto 0-2 /hpf (0-2); Glucose Urine UA Negative (Negative); Ketones Urine Negative (Negative); Leukocyte Esterase Urine 3+ (Negative); Nitrite Urine Positive (Negative); Protein Urine Negative (Negative); Specific Gravity Urine 1.015 (1.000-1.030); Urobilinogen Urine Negative (Negative); WBC Urine Automated 21-50 /hpf (0-5)
[2023-08-18] MEDS ORDERED: VANCOMYCIN CONSULT ACTIVE PRN (19:09)
[2023-08-18] MEDS: PIPERACILLIN/TAZOBACTAM 4.5 GM/100 ML BAG IV ONE (19:27)
[2023-08-18 20:04] LABS: Adenovirus PCR Not Detected (NotDetected); Bordetella parapertussis PCR Not Detected (NotDetected); Bordetella pertussis PCR Not Detected (NotDetected); Chlamydia pneumoniae PCR Not Detected (NotDetected); Coronavirus 229E PCR Not Detected (NotDetected); Coronavirus CoV-2 (COVID19)PCR Not Detected (NotDetected); Coronavirus HKU1 PCR Not Detected (NotDetected); Coronavirus NL63 PCR Not Detected (NotDetected); Coronavirus OC43PCR Not Detected (NotDetected); Human Metapneumovirus PCR Not Detected (NotDetected); Influenza A PCR Not Detected (NotDetected); Influenza B PCR Not Detected (NotDetected); Mycoplasma pneumoniae PCR Not Detected (NotDetected); Parainfluenza Virus 1 PCR Not Detected (NotDetected); Parainfluenza Virus 2 PCR Not Detected (NotDetected); Parainfluenza Virus 3 PCR Not Detected (NotDetected); Parainfluenza Virus 4 PCR Not Detected (NotDetected); Respiratory Syncytial VirusPCR Not Detected (NotDetected); Rhinovirus/Enterovirus PCR Not Detected (NotDetected)
[2023-08-18] MEDS: VANCOMYCIN HCL 1,750 MG in SODIUM CHLORIDE 0.9% 500 ML IV ONE (20:41)
--- NOTE | 2023-08-18 20:49 | History & Physical Report ---
Date of Service August 18, 2023 Assessment & Plan (1) Wound of sacral region: Plan: 88-year-old male with past medical history significant for type 2 diabetes, secondary hyperparathyroidism, hyperlipidemia, diabetic polyneuropathy, history of aspiration into airway, chronic CAD, history of paroxysmal atrial fibrillation, history of cardiac pacemaker, history of chronic systolic CHF, history of atherosclerosis of mary[place] arteries of left leg with ulceration, hi story of hepatitis B, history of mass of parotid gland, CKD stage III, history of urinary retention on chronic Berman since last 20 years as per patient, history of amputation of right foot toe, history of pressure sores on buttocks, bilateral macular degeneration, left acoustic neuroma, iron deficiency anemia, depression with anxiety, history of colon cancer s/p hemicolectomy patient lives alone at home and gets help daily in the morning and is mostly wheelchair-bound was brought in because of the infection of the sacral ulcers and also found to have UTI. Couple of days ago the patient had low-grade fever. When wound care nurse came today and checked him thought he needs to come to the hospital for sacral wounds. Patient has pain in the sacral region. And also pain in the left foot. Left toes are somewhat blackish discoloration and patient says is going on since last Monday. Patient says he has appointment with vascular surgery next Monday. His appetite is okay. Eating and drinking okay. No difficulty swallowing. Denies any headache. No blurred vision. Has some runny nose from allergies. No sore throat. No cough. No chest pain. He states when he moves around has short of breath. No nausea. No abdominal pain. States alternates with constipation and diarrhea. Denies any blood in the stools. Sometimes he gets hematuria. Currently hemodynamically stable. Sacral wounds Sacral pressure ulcers with blackish discoloration Pelvic CT no obvious abscess Start IV Vanco and Invanz Wound care consult Will consult surgery Peripheral vascular disease Some blackish discoloration of the left toes going on for few days now Following with vascular surgery Will follow artery ultrasound and consult vascular surgery arterial doppler shows OVD and occluded distal LULY(Present on Doppler on August 03) UTI Chronic indwelling Berman catheter Antibiotics as above Will follow cultures Chronic systolic CHF EF 45% on echo in January 2021 Getting gentle fluids Continue home Lasix and potassium supplements Monitor for volume overload History of paroxysmal atrial fibrillation History of AV geraldo block s/p pacemaker On amiodarone and metoprolol succinate and Coumadin Follow PT/INR CKD stage III Presented with creatinine 1.1 Will follow labs 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 History of hepatitis B in his 20s as per patient History of colon cancer s/p partial colectomy History of CAD On metoprolol and Coumadin Depression with anxiety On Remeron and lorazepam Type 2 diabetes Continue home Lantus Sliding scale Will monitor DVT prophylaxis On Coumadin Follow PT/INR Disposition Med/telemetry CODE STATUS full code check if there is chance of recovery as per my discussion with the patient History of Present Illness Chief Complaint: Sacral wounds and UTI Primary Care Provider: Vianey Matamoros MD 88-year-old male with past medical history significant for type 2 diabetes, secondary hyperparathyroidism, hyperlipidemia, diabetic polyneuropathy, history of aspiration into airway, chronic CAD, history of paroxysmal atrial fibrillation, history of cardiac pacemaker, history of chronic systolic CHF, history of atherosclerosis of mary[place] arteries of left leg with ulceration, histo ry of hepatitis B, history of mass of parotid gland, CKD stage III, history of urinary retention on chronic Berman since last 20 years as per patient, history of amputation of right foot toe, history of pressure sores on buttocks, bilateral macular degeneration, left acoustic neuroma, iron deficiency anemia, depression with anxiety, history of colon cancer s/p hemicolectomy patient lives alone at home and gets help daily in the morning and is mostly wheelchair-bound was brought in because of the infection of the sacral ulcers and also found to have UTI. Couple of days ago the patient had low-grade fever. When wound care nurse came today and checked him thought he needs to come to the hospital for sacral wounds. Patient has pain in the sacral region. And also pain in the left foot. Left toes are somewhat blackish discoloration and patient says is going on since last Monday. Patient says he has appointment with vascular surgery next Monday. His appetite is okay. Eating and drinking okay. No difficulty swallowing. Denies any headache. No blurred vision. Has some runny nose from allergies. No sore throat. No cough. No chest pain. He states when he moves around has short of breath. No nausea. No abdominal pain. States alternates with constipation and diarrhea. Denies any blood in the stools. Sometimes he gets hematuria. Currently hemodynamically stable. Past medical history. As mentioned above Past surgical history. Amputation of the right toe. Left amputation of toe. Colonoscopy had colonoscopy biopsy. EGD. S/p pacemaker. Hemicolectomy for colon adenocarcinoma. Radical removal of prostate. Removal of pelvic lymph nodes. Tonsillectomy and adenoidectomy. Social history. No smoking. Currently no alcohol use. No drug use. Family history. Father had arthritis. Heart disorder. Mother has heart disorder. Thyroid disorder. Allergies Allergy/AdvReac Type Severity Reaction Status Date / Time ampicillin Allergy Intermediate Rash Verified 08/16/23 13:54 Macrolide Antibiotics Allergy Unknown PER Verified 08/16/23 13:54 MEDICAL RECORD sildenafil Allergy Unknown SWELLING Verified 08/16/23 13:54 OF FACE AND HEAD streptomycin Allergy Unknown N/V Verified 08/16/23 13:54 sulfite Allergy Unknown THROAT Verified 08/16/23 13:54 SWELLING nitrofurantoin AdvReac Diarrhea Verified 08/16/23 13:54 VASODILATORS Allergy Unknown "PERIPHERAL Uncoded 08/16/23 13:54 DILATOR" swelling of face and head Home Medications Medication Instructions Recorded Confirmed Type amiodarone 200 mg tablet 200 mg PO QAM 01/02/18 08/18/23 History insulin glargine 100 unit/mL 8 units subcut BID 01/02/18 08/18/23 History subcutaneous solution loratadine 10 mg tablet 10 mg PO QAM 01/02/18 08/18/23 History magnesium oxide 400 mg (241.3 mg 400 mg PO QAM 01/02/18 08/18/23 History magnesium) tablet metoprolol succinate 25 mg 25 mg PO QAM 01/02/18 08/18/23 History tablet,extended release 24 hr gabapentin 300 mg capsule 300 mg PO TID 03/10/18 08/18/23 History docusate sodium 100 mg capsule 100 mg PO BID 04/27/22 08/18/23 History (Colace) mometasone 0.1 % topical solution 1 applic topical .EVERY 24 HOURS 04/27/22/10/15 History PRN Itching acetaminophen 325 mg capsule 650 mg PO Q4 PRN PAIN/FEVER 05/10/22 08/18/23 History bisacodyl 10 mg rectal suppository 10 mg IN .EVERY 24 HOURS PRN 12/01/22 08/18/23 History Constipation calcium carbonate 500 mg-vitamin 1 tab PO QAM 12/01/22 08/18/23 History D3 5 mcg (200 unit) tablet (Oyster Shell Calcium-Vitamin D3) lorazepam 0.5 mg tablet 0.5 mg PO HS 12/01/22 08/18/23 History mirtazapine 30 mg tablet (Remeron) 30 mg PO HS 12/01/22 08/18/23 History multivit,stress formula-zinc tablet 1 tab PO DAILY 12/01/22 08/18/23 History warfarin 1 mg tablet 1 mg PO 3XWK 12/01/22 08/18/23 History midodrine 2.5 mg tablet 2.5 mg PO BID 03/10/23 08/18/23 History zolpidem 5 mg tablet (Ambien) 5 mg PO QPM 03/10/23 08/18/23 History ceramides 1,3,6-II 1 applic topical DAILY 04/14/23 08/18/23 History clotrimazole-betamethasone 1 1 applic topical AMHS 04/14/23 08/18/23 History %-0.05 % topical cream furosemide 40 mg tablet 40 mg PO QAM 04/14/23 08/18/23 History dhqelhgn-zmi-[id number] 250 mg-dha 90 1 cap PO QAM 04/14/23 08/18/23 History mg-epa 160 ge-udll-fjhq-zeax capsule (Ocuvite Adult 50 Plus) oxycodone 5 mg tablet 5 mg PO Q12H PRN mod-severe pain 04/14/23 08/18/23 History warfarin 2 mg tablet 2 mg PO 4XWK 04/14/23 08/18/23 History melatonin 5 mg capsule 5 mg PO HS 06/15/23 08/18/23 History nystatin 100,000 unit/gram topical 1 applic topical DAILY #60 grams 06/21/23 08/18/23 Rx powder methenamine hippurate 1 gram tablet 1 g PO DAILY 08/18/23 08/18/23 History potassium chloride 20 mEq 0 meq PO UD 08/18/23 08/18/23 History tablet,extended release(part/cryst) Past Med/Surg History Medical History (Updated 08/18/23 @ 21:41 by Bruno Schaefer DO) Bacterial septicemia PVD (peripheral vascular disease) Berman catheter in place gets changed monthly Cerebrovascular disease Heart failure History of airway aspiration Ambulatory dysfunction History of hepatitis B Renal failure ? stage History of Mohs micrographic surgery for skin cancer History of prostate cancer PROSTATECTOMY History of melanoma HX MELANOMA, HX MULTIPLE SKIN CA & REMOVED Diabetic neuropathy History of colon cancer HX COLON SURGERY Chronic systolic CHF (congestive heart failure) Diabetes mellitus type 2 with complications Hypertension Pacemaker "DUAL" - PT NOT SURE BRAND, PLACED D/T AFIB - [facility] Atrial fibrillation Coronary artery disease Lumbar spinal stenosis Compression fracture of L4 lumbar vertebra HX BROKEN BACK Generalized OA Dyslipidemia Surgical History (Updated 03/10/23 @ 08:16 by Almaz Alcaraz, RN) 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 History of anesthesia reaction WITH TESTICULAR SURGERY, [facility] - INCREASED BP & HAD TO STAY OVERNIGHT History of cardiac cath years ago> [facility] - CHECKING FOR BLOCKAGE - NO STENTS History of testicular surgery History of colonoscopy MULTIPLE History of tonsillectomy and adenoidectomy History of right hemicolectomy H/O prostatectomy Family History Mother Coronary heart disease Father Heart disease Social History Smoking Status: Never smoker Second Hand Exposure: No; Do You Dip or Chew Tobacco: No; Hx Alcohol Use: No Hx Substance Use: No Preferred Language: Macedonian Communication Ability: Effective Hearing Ability: Hard of Hearing College Specialist Required: No Beliefs That Will Affect Care: None marital status: Single Current Living Situation: Alone Current Living Situation Comment: caregivers come to see him daily current occupational status: retired How many Children do You have: 0 Feels Safe at Home: Yes Safety Concerns: Feels Safe At This Time Diet: diabetic Diet Comment: Increased protein for healing per chart during the past year weight has: remained stable Assistive Devices: Glasses and Wheelchair Review of Systems Review of Systems: All systems reviewed & are unremarkable except as noted in HPI & below Physical Exam Physical Exam: General- Not in distress. Head- atraumatic Eyes- PERRL. ENT- oropharynx clear Neck- supple, no JVD. Lungs- clear to auscultation no wheezing or crackles. Heart- regular rhythm; no murmur, no gallop. Abdomen- normal bowel sounds, soft, nontender, no distension Extremities- left lower extremity toes blackish discoloration, Neuro- alert, oriented x PERRL, EOMI; no facial palsy; no dysarthria; moves extremities. Skin- stage 3/4 scaral ulcers with blackish discoloration Results & Data Results & Data Vital Signs (Past 12 Hours) Vital Signs Temp Pulse Resp BP Pulse Ox O2 Del Method 08/18/23 18:45 15 128/87 98 08/18/23 18:30 120 H 13 138/61 98 08/18/23 18:15 112 H 22 130/66 98 08/18/23 18:00 96 H 18 08/18/23 17:30 60 6 L 98 08/18/23 16:45 60 12 118/61 98 08/18/23 16:30 65 19 101/67 96 08/18/23 16:23 60 11 L 111/57 L 97 08/18/23 16:20 64 14 97 08/18/23 16:12 67 08/18/23 16:10 60 13 99 08/18/23 16:00 127/68 08/18/23 16:00 64 7 L 08/18/23 15:50 73 4 L 08/18/23 15:47 Room Air 08/18/23 15:40 69 15 97 08/18/23 15:33 77 6 L 100 08/18/23 15:31 36.7 C 108 H 20 151/93 H 97 Room Air Diagnostic Findings Laboratory Results WBC 10.11 K/ul (4.8-10.8) 08/18/23 15:47 RBC 5.19 M/uL (4.70-6.10) 08/18/23 15:47 Hgb 15.1 g/dl (14.0-18.0) 08/18/23 15:47 Hct 46.6 % (42.0-52.0) 08/18/23 15:47 MCV 89.8 fL (80.0-100.0) 08/18/23 15:47 MCH 29.1 pg (25.0-34.0) 08/18/23 15:47 MCHC 32.4 g/dL (32.0-36.0) 08/18/23 15:47 RDW Std Deviation 53.8 fL (36.4-46.3) H 08/18/23 15:47 RDW Coeff of Gabriela 16.3 % (11.5-14.5) H 08/18/23 15:47 Plt Count 249 K/uL (130-400) 08/18/23 15:47 MPV 9.7 fL (9.4-12.4) 08/18/23 15:47 Immature Gran % (Auto) 0.7 % 08/18/23 15:47 Neut % (Auto) 71.3 % 08/18/23 15:47 Lymph % (Auto) 20.2 % 08/18/23 15:47 Rice % (Auto) 7.0 % 08/18/23 15:47 Eos % (Auto) 0.5 % 08/18/23 15:47 Baso % (Auto) 0.3 % 08/18/23 15:47 Neut # (Auto) 7.21 K/uL (1.40-6.50) H 08/18/23 15:47 Lymph # (Auto) 2.04 K/uL (1.20-3.40) 08/18/23 15:47 Rice # (Auto) 0.71 K/uL (0.11-0.59) H 08/18/23 15:47 Eos # (Auto) 0.05 K/uL (0.00-0.50) 08/18/23 15:47 Baso # (Auto) 0.03 K/uL (0.00-0.20) 08/18/23 15:47 Immature Gran # (Auto) 0.07 K/uL (0.01-0.20) 08/18/23 15:47 PT 22.8 Seconds (9.0-12.0) H 08/18/23 15:47 INR 2.2 (0.9-1.1) H 08/18/23 15:47 VBG pH 7.39 (7.36-7.41) 08/18/23 16:57 VBG pCO2 57 mmHg (38-50) H 08/18/23 16:57 VBG pO2 < 20 mmHg 08/18/23 16:57 VBG HCO3 35 mmol/L 08/18/23 16:57 VBG O2 Saturation < 60.0 % 08/18/23 16:57 VBG Base Excess 7.6 mEq/L 08/18/23 16:57 Sodium 140 mmol/L (136-145) 08/18/23 15:47 Potassium 4.3 mmol/L (3.5-5.1) 08/18/23 15:47 Chloride 103 mmol/L (98-107) 08/18/23 15:47 Carbon Dioxide 32 mmol/L (21-32) 08/18/23 15:47 Anion Gap 5 (3-11) 08/18/23 15:47 BUN 21 mg/dl (6-23) 08/18/23 15:47 Creatinine 1.12 mg/dl (0.6-1.4) 08/18/23 15:47 Est Cr Clr Drug Dosing Not Reportable 08/18/23 15:47 Est GFR ( Amer) 67.6 ml/min 08/18/23 15:47 Est GFR (Non-Af Amer) 58.3 ml/min 08/18/23 15:47 BUN/Creatinine Ratio 18.8 (10-20) 08/18/23 15:47 Glucose 190 mg/dl (70-99(Fasting)) H 08/18/23 15:47 Lactate 1.7 mmol/L (0.4-2.0) 08/18/23 16:00 Calcium 8.6 mg/dl (8.6-10.3) 08/18/23 15:47 Magnesium 2.0 mg/dl (1.7-2.4) 08/18/23 15:47 Total Bilirubin 0.4 mg/dl (0.2-1.0) 08/18/23 15:47 Direct Bilirubin 0.1 mg/dl (0-0.2) 08/18/23 15:47 AST 28 U/L (13-39) 08/18/23 15:47 ALT 25 U/L (7-52) 08/18/23 15:47 Alkaline Phosphatase 115 U/L (34-104) H 08/18/23 15:47 Troponin I High Sens 17.5 pg/ml (0-20) 08/18/23 15:47 Total Protein 7.3 gm/dl (6.0-8.3) 08/18/23 15:47 Albumin 3.7 gm/dl (3.4-5.0) 08/18/23 15:47 Procalcitonin 0.04 ng/ml (0-0.5) 08/18/23 16:57 Urine Color Yellow 08/18/23 Unknown Urine Appearance Cloudy (Clear) A 08/18/23 Unknown Urine pH 5.0 (4.5-7.5) 08/18/23 Unknown Ur Specific [place] 1.015 (1.000-1.030) 08/18/23 Unknown Urine Protein Negative (Negative) 08/18/23 Unknown Urine Glucose (UA) Negative (Negative) 08/18/23 Unknown Urine Ketones Negative (Negative) 08/18/23 Unknown Urine Blood 2+ (Negative) H 08/18/23 Unknown Urine Nitrite Positive (Negative) A 08/18/23 Unknown Urine Bilirubin Negative (Negative) 08/18/23 Unknown Urine Urobilinogen Negative (Negative) 08/18/23 Unknown Ur Leukocyte Esterase 3+ (Negative) H 08/18/23 Unknown Urine WBC (Auto) 21-50 /hpf (0-5) H 08/18/23 Unknown Urine RBC (Auto) 11-20 /hpf (0-2) H 08/18/23 Unknown U Hyaline Cast (Auto) 3-5 /lpf (0-2) H 08/18/23 Unknown U Epithel Cells (Auto) 0-2 /hpf (0-2) 08/18/23 Unknown Urine Bacteria (Auto) 4+ (None Seen) H 08/18/23 Unknown Adenovirus (PCR) Not Detected (NotDetected) 08/18/23 Unknown B. pertussis DNA (PCR) Not Detected (NotDetected) 08/18/23 Unknown B.parapertussis DNA PCR Not Detected (NotDetected) 08/18/23 Unknown C. pneumoniae DNA (PCR) Not Detected (NotDetected) 08/18/23 Unknown Coronavirus OC43 (PCR) Not Detected (NotDetected) 08/18/23 Unknown Coronavirus HKU1 (PCR) Not Detected (NotDetected) 08/18/23 Unknown Coronavirus 229E (PCR) Not Detected (NotDetected) 08/18/23 Unknown SARS-CoV-2 (PCR) Not Detected (NotDetected) 08/18/23 Unknown Coronavirus NL63 (PCR) Not Detected (NotDetected) 08/18/23 Unknown Human Metapneumovir PCR Not Detected (NotDetected) 08/18/23 Unknown Influenza Type A (PCR) Not Detected (NotDetected) 08/18/23 Unknown Influenza Type B (PCR) Not Detected (NotDetected) 08/18/23 Unknown M. pneumoniae (PCR) Not Detected (NotDetected) 08/18/23 Unknown Parainfluenza 1 (PCR) Not Detected (NotDetected) 08/18/23 Unknown Parainfluenza 2 (PCR) Not Detected (NotDetected) 08/18/23 Unknown Parainfluenza 3 (PCR) Not Detected (NotDetected) 08/18/23 Unknown Parainfluenza 4 (PCR) Not Detected (NotDetected) 08/18/23 Unknown RSV (PCR) Not Detected (NotDetected) 08/18/23 Unknown Entero/Rhino (PCR) Not Detected (NotDetected) 08/18/23 Unknown Impressions Chest X-Ray 08/18/23 15:47 XR chest 1V portable CLINICAL HISTORY: Sepsis COMPARISON STUDY: Chest radiograph April 14, 2023. FINDINGS: A dual-lead left subclavian pacer is unchanged in position. There is no pneumothorax or pleural effusion. No consolidation is identified. Cardiomegaly is unchanged. Pulmonary vascularity is normal. Skin folds project over the left chest. IMPRESSION: No acute cardiopulmonary findings. Cardiac megaly. ACT 112: Negative or not required by law. Electronically signed by: Dieudonne Roy M.D. 08/18/2023 4:[address] 08/18/23 15:57 CT pelvis w/IV con only HISTORY: 88 years-old Male Sacral ulcer, eval for underlying infection COMPARISON: CT abdomen and pelvis 01/15/2021 TECHNIQUE: Multiple axial CT images of the bony pelvis were obtained with IV contrast. A dose lowering technique was used consistent with the principals of ALARA. FINDINGS: Atherosclerosis of the aorta, iliac and femoral arteries. Lymphadenopathy. Decompressed urinary bladder with Berman catheter in place. Urinary bladder wall thickening with diverticula. Moderate sized fat filled inguinal hernias. Pr ostatectomy with prior geraldo dissection. Colonic diverticulosis. Moderate fecal retention of the rectum with rectal wall thickening and mild perirectal stranding. 2.7 cm exophytic cyst of the inferior pole left kidney. Subcutaneous edema noted likely correlating with the reported sacral decubitus ulcer. No abscess. Degenerative changes of the spine, SI joints and hips. No acute fracture or acute osseous erosion is identified. Cortical thickening of the mid sacrum may represent a healed chronic fracture. Chronic L4 burst fracture is partially imaged. IMPRESSION: 1. There is mild subcutaneous edema of the upper gluteal cleft/presacral tissues. No abscess or evidence of acute osteomyelitis. 2. Prior prostatectomy. 3. Constipation with suggested stercoral proctitis. 4. Colonic diverticulosis. ACT 112: Negative or not required by law. The above report was generated using voice recognition software. It may contain grammatical, syntax or spelling errors. Electronically signed by: Ollie Hendrix M.D. 08/18/2023 6:34 PM ECG Additional Comments: ECG. Undetermined rhythm at the rate of 112. Nonspecific intraventricular conduction block. Code Status & VTE Plan VTE Prophylaxis Plan VTE Prophylaxis will be ordered: Yes
[2023-08-18] MEDS ORDERED: CARBOHYDRATES FOR HYPOGLYCEMIA PO PRN (22:25)
[2023-08-18] MEDS ORDERED: MELATONIN 3 MG TAB PO SCH (22:25)
[2023-08-18] MEDS ORDERED: GLUCAGON FOR INJ 1 MG VIAL SQ PRN (22:25)
[2023-08-18] MEDS ORDERED: DEXTROSE 50% 50 ML SYRINGE IV PRN (22:25)
[2023-08-18] MEDS ORDERED: GLUCOSE 40% GEL 15 GM TUBE PO PRN (22:25)
[2023-08-18] MEDS ORDERED: POLYETHYLENE (MIRALAX) 17 GM PACK PO PRN (22:25)
[2023-08-18] MEDS ORDERED: GLUCOSE 10 TAB/TUBE PO PRN (22:25)
[2023-08-18] MEDS ORDERED: bisacodyL 10 MG SUPP PR PRN (22:25)
[2023-08-18] MEDS ORDERED: NITROGLYCERIN SL 0.4 MG/TAB TAB SL PRN (22:25)
[2023-08-18] MEDS ORDERED: ZOLPIDEM TARTRATE 5 MG TAB PO SCH (22:25)
[2023-08-18] MEDS: INSULIN ASPART PER UNIT CHARGE SC SCH (23:26)
[2023-08-18] MEDS: MAGNESIUM SULFATE / D5W 1 GM/100 ML BAG IV ONE (23:35)
[2023-08-18] MEDS: SODIUM CHLORIDE 0.9% 1,000 ML IV SCH (23:35)
[2023-08-19] MEDS: LORazepam 0.5 MG TAB PO SCH (00:08)
[2023-08-19] MEDS: GABAPENTIN 300 MG CAP PO SCH (00:09)
[2023-08-19] MEDS: CLOTRIMAZOLE/BETAMETHASONE CR 15 GM TUBE EXT SCH (00:09)
[2023-08-19] MEDS: DOCUSATE SODIUM 100 MG CAP PO SCH (00:09)
[2023-08-19] MEDS: WARFARIN SOD 1 MG TAB PO SCH (00:10)
[2023-08-19] MEDS: MIRTAZAPINE TAB 15 MG TAB PO SCH (00:10)
[2023-08-19] MEDS: LANTUS PER UNIT CHARGE SQ SCH ×2 (00:13→08:55)
[2023-08-19] MEDS: MELATONIN 3 MG TAB PO PRN (01:48)
--- NOTE | 2023-08-19 03:19 | Ultrasound Report ---
Exam(s): US ARTERIAL LEFT LOWER EXTREMITY EXAM: US Duplex Left Lower Extremity Arteries CLINICAL HISTORY: Reason for exam: blackish discoloration of toes, pvd. TECHNIQUE: Real-time duplex ultrasound scan of the left lower extremity arteries integrating B-mode two-dimensional vascular structure, Doppler spectral analysis and color flow Doppler imaging. COMPARISON: 07/19/2022. Most recent ultrasound 08/04/2023 is not available. FINDINGS: Diffuse calcified plaque from the common femoral artery distally. Peak systolic velocities (cm/sec): LEFT- RECEPTIONIST DOCTOR'S OFFICE: 69cm/s Biphasic DFA: 90cm/s Biphasic SFA PROX: 55cm/s Biphasic SFA MID: 51cm/s Biphasic SFA DIST: 55cm/s Biphasic POP A: 33cm/s Monophasic POP A MID: 209cm/s - high velocity consistent with prior US findings of stent occlusion. Monophasic POP DST: occluded PATTERN ROOM ATTENDANT PROX: 22cm/s Monophasic PATTERN ROOM ATTENDANT MID: 32cm/s Monophasic PATTERN ROOM ATTENDANT DST: 13.8cm/s Monophasic LISSY A PROX: 44cm/s Monophasic LISSY A MID: 43cm/s Monophasic LISSY A DST: 35cm/s Monophasic LULY PRX: 18cm/s Monophasic LULY MID: 21cm/s Monophasic LULY DST: occluded. Known occlusion from prior US. DPA: 16cm/s. Monophasic. Left calf edema. IMPRESSION: Elevated flow velocities proximal to a known distal popliteal artery stent occlusion. Reconstituted flow distally below the knee with multifocal stenoses in diminished flow velocities. Occluded distal anterior tibial artery. Electronically signed by: Delroy Madsen M.D. 08/19/23 03:18 AM
[2023-08-19] MEDS: ERTAPENEM SODIUM 1,000 MG in SYRINGE 0 ML IV SCH (04:43)
[2023-08-19 06:03] LABS: BUN Creatinine Ratio 13.4 (10-20); Calcium 8.1 mg/dl (8.6-10.3); Creatinine Clr Calc Pharmacy 40.6 ml/min; Est GFR (African American) 50.7 ml/min; Est GFR (Non-African American) 43.8 ml/min; Magnesium 2.1 mg/dl (1.7-2.4); Potassium 4.1 mmol/L (3.5-5.1)
[2023-08-19 06:18] LABS: Basophils # (auto) 0.03 K/uL (0.00-0.20); Basophils % (auto) 0.3 %; Eosinophils # (auto) 0.11 K/uL (0.00-0.50); Eosinophils % (auto) 1.1 %; Hematocrit (blood only) 39.7 % (42.0-52.0); Immature Granulocytes # (auto) 0.07 K/uL (0.01-0.20); Immature Granulocytes % (auto) 0.7 %; Lymphocytes # (auto) 2.35 K/uL (1.20-3.40); Lymphocytes % (auto) 22.7 %; Mean Corpuscular Hemoglobin 29.2 pg (25.0-34.0); Mean Corpuscular Hgb Conc 32.7 g/dL (32.0-36.0); Mean Corpuscular Volume 89.2 fL (80.0-100.0); Monocytes # (auto) 0.92 K/uL (0.11-0.59); Monocytes % (auto) 8.9 %; Neutrophils # (auto) 6.88 K/uL (1.40-6.50); Neutrophils % (auto) 66.3 %; Platelet Count 205 K/uL (130-400); RDW Coefficient of Variation 16.2 % (11.5-14.5); RDW Standard Deviation 53.1 fL (36.4-46.3); Red Blood Count 4.45 M/uL (4.70-6.10); White Blood Count 10.36 K/ul (4.8-10.8)
[2023-08-19 07:22] LABS: Estimated Average Glucose 126 mg/dl
[2023-08-19] MEDS: METOPROLOL SUCC 25MG EXT REL TAB PO SCH (08:53)
[2023-08-19] MEDS: AMIODARONE 200 MG TAB PO SCH (08:53)
[2023-08-19] MEDS: MAGNESIUM OXIDE 400 MG TAB PO SCH (08:53)
[2023-08-19] MEDS: CALCIUM 600MG + VIT D 400 IU TAB PO SCH (08:53)
[2023-08-19] MEDS: FUROSEMIDE 40 MG TAB PO SCH (08:53)
[2023-08-19] MEDS: CEROVITE ADV FORMULA TAB PO SCH (08:53)
[2023-08-19] MEDS: MIDODRINE HCL 2.5 MG TAB PO SCH (08:53)
[2023-08-19] MEDS: LORATADINE 10 MG TAB PO SCH (08:53)
[2023-08-19] MEDS: NYSTATIN POWDER 15GM BTL EXT SCH (08:53)
[2023-08-19] MEDS: POTASSIUM CHLORIDE CRTAB 20 MEQ TABCR PO SCH (08:53)
[2023-08-19] MEDS ORDERED: [UNRECOGNIZED DRUG - OTHER] PO SCH (09:00)
[2023-08-19] MEDS: oxyCODONE HCL IR 5 MG TAB (IMMEDIATE RELEASE) PO PRN (10:22)
[2023-08-19] MEDS: VANCOMYCIN HCL 1,000 MG in SODIUM CHLORIDE 0.9% 250 ML IV SCH (10:23)
--- NOTE | 2023-08-19 11:40 | Pharmacy Report ---
Pharmacy PK ABX Note - Date of Service August 19, 2023 - Assessment and Plan Assessment 88 year old M receiving Vancomycin and Ertapenem for treatment of sacral wound and possible UTI. * Day #1 of antimicrobial therapy. * Afebrile. Procal normal. SCr worsened to 1.42 mg/dL today. * Urine culture preliminarily growing gram negative bacilli. Blood cultures pending. * Patient has a history of ESBL in his urine and Pseudomonas in both his urine and sacral wound. Recommended transition from Ertapenem to Meropenem. Awaiting providers response. Plan Vancomycin * Loading dose: 1750 mg IV x 1 * Maintenance dose: 1000 mg IV every 24 hours * Regimen is predicted to achieve target AUC/OSMAN of 400-600 mg/L.hr * Level will be ordered for Monday (08/21/23) Ertapenem * 1000 mg IV every 24 hours Pharmacy will continue to follow and will adjust dose/frequency as necessary. Thank you. Pharmacy has transitioned to AUC monitoring for vancomycin. AUC/OSMAN is the preferred PK/PD target and is associated with decreased risk of nephrotoxicity compared to traditional trough targets.
--- NOTE | 2023-08-19 11:52 | Electrocardiogram Report ---
Test Reason : Blood Pressure : / mmHG Vent. Rate : 112 BPM Atrial Rate : 058 BPM P-R Int : 000 ms QRS Dur : 376 ms QT Int : 552 ms P-R-T Axes : 000 242 -84 degrees QTc Int : 753 ms AV sequential or dual chamber electronic pacemaker Abnormal ECG When compared with ECG of 14-APR-2023 15:05, No significant change Confirmed by Maico Ray ([id number]) on 08/19/2023 11:52:08 AM Referred By: Confirmed By:Maico Ray
--- NOTE | 2023-08-19 12:01 | Electrocardiogram Report ---
Test Reason : Blood Pressure : / mmHG Vent. Rate : 062 BPM Atrial Rate : 062 BPM P-R Int : 228 ms QRS Dur : 182 ms QT Int : 490 ms P-R-T Axes : 085 269 087 degrees QTc Int : 497 ms Poor data quality, interpretation may be adversely affected Atrial-sensed ventricular-paced rhythm with prolonged AV conduction Abnormal ECG When compared with ECG of 18-AUG-2023 15:34, (unconfirmed) No significant change Confirmed by Maico Ray ([id number]) on 08/19/2023 12:00:59 PM Referred By: Nurse Wound Care Confirmed By:Maico Ray
[2023-08-19] MEDS: MEROPENEM 500 MG in SYRINGE 0 ML IV SCH (12:18)
--- NOTE | 2023-08-19 13:39 | Surgery Consultation ---
Date of Consultation August 19, 2023 Assessment & Plan (1) Wound of sacral region: 88-year-old gentleman with beginnings of a sacral decubitus. It does not appear to have significant skin breakdown. There is ecchymosis. There is no surgical indication at this time. I would recommend wound care nurse to see the patient as soon as possible. If the wound care nurse has concern for need of surgical intervention, have her reconsult surgery. Will sign off. 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 Couple of days ago the patient had low-grade fever. When wound care nurse came today and checked him thought he needs to come to the hospital for sacral wounds. Patient has pain in the sacral region. Eating and drinking okay. No difficulty swallowing. Denies any headache. No blurred vision. Has some runny nose from allergies. No sore throat. No cough. No chest pain. He states when he moves around has short of breath. No nausea. No abdominal pain. States alternates with constipation and diarrhea. Denies any blood in the stools. Sometimes he gets hematuria. Currently hemodynamically stable. Allergies Allergy/AdvReac Type Severity Reaction Status Date / Time ampicillin Allergy Intermediate Rash Verified 08/16/23 13:54 Macrolide Antibiotics Allergy Unknown PER Verified 08/16/23 13:54 MEDICAL RECORD sildenafil Allergy Unknown SWELLING Verified 08/16/23 13:54 OF FACE AND HEAD streptomycin Allergy Unknown N/V Verified 08/16/23 13:54 sulfite Allergy Unknown THROAT Verified 08/16/23 13:54 SWELLING nitrofurantoin AdvReac Diarrhea Verified 08/16/23 13:54 VASODILATORS Allergy Unknown "PERIPHERAL Uncoded 08/16/23 13:54 DILATOR" swelling of face and head Home Medications Medication Instructions Recorded Confirmed Type amiodarone 200 mg tablet 200 mg PO QAM 01/02/18 08/18/23 History insulin glargine 100 unit/mL 8 units subcut BID 01/02/18 08/18/23 History subcutaneous solution loratadine 10 mg tablet 10 mg PO QAM 01/02/18 08/18/23 History magnesium oxide 400 mg (241.3 mg 400 mg PO QAM 01/02/18 08/18/23 History magnesium) tablet metoprolol succinate 25 mg 25 mg PO QAM 01/02/18 08/18/23 History tablet,extended release 24 hr gabapentin 300 mg capsule 300 mg PO TID 03/10/18 08/18/23 History docusate sodium 100 mg capsule 100 mg PO BID 04/27/22 08/18/23 History (Colace) mometasone 0.1 % topical solution 1 applic topical .EVERY 24 HOURS 04/27/22 08/18/23 History PRN Itching acetaminophen 325 mg capsule 650 mg PO Q4 PRN PAIN/FEVER 05/10/22 08/18/23 History bisacodyl 10 mg rectal suppository 10 mg WA .EVERY 24 HOURS PRN 12/01/22 08/18/23 History Constipation calcium carbonate 500 mg-vitamin 1 tab PO QAM 12/01/22 08/18/23 History D3 5 mcg (200 unit) tablet (Oyster Shell Calcium-Vitamin D3) lorazepam 0.5 mg tablet 0.5 mg PO HS 12/01/22 08/18/23 History mirtazapine 30 mg tablet (Remeron) 30 mg PO HS 12/01/22 08/18/23 History multivit,stress formula-zinc tablet 1 tab PO DAILY 12/01/22 08/18/23 History warfarin 1 mg tablet 1 mg PO 3XWK 12/01/22 08/18/23 History midodrine 2.5 mg tablet 2.5 mg PO BID 03/10/23 08/18/23 History zolpidem 5 mg tablet (Ambien) 5 mg PO QPM 03/10/23 08/18/23 History ceramides 1,3,6-II 1 applic topical DAILY 04/14/23 08/18/23 History clotrimazole-betamethasone 1 1 applic topical AMHS 04/14/23 08/18/23 History %-0.05 % topical cream furosemide 40 mg tablet 40 mg PO QAM 04/14/23 08/18/23 History nyfxzevr-sex-eoabk5 250 mg-dha 90 1 cap PO QAM 04/14/23 08/18/23 History mg-epa 160 qx-ndic-ekfm-zeax capsule (Ocuvite Adult 50 Plus) oxycodone 5 mg tablet 5 mg PO Q12H PRN mod-severe pain 04/14/23 08/18/23 History warfarin 2 mg tablet 2 mg PO 4XWK 04/14/23 08/18/23 History melatonin 5 mg capsule 5 mg PO HS 06/15/23 08/18/23 History nystatin 100,000 unit/gram topical 1 applic topical DAILY #60 grams 06/21/23 08/18/23 Rx powder methenamine hippurate 1 gram tablet 1 g PO DAILY 08/18/23 08/18/23 History potassium chloride 20 mEq 0 meq PO UD 08/18/23 08/18/23 History tablet,extended release(part/cryst) Patient History Medical History Bacterial septicemia PVD (peripheral vascular disease) Berman catheter in place gets changed monthly Cerebrovascular disease Heart failure History of airway aspiration Ambulatory dysfunction History of hepatitis B Renal failure ? 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 History of anesthesia reaction WITH TESTICULAR SURGERY, [facility] - INCREASED BP & HAD TO STAY OVERNIGHT History of cardiac cath years ago> [facility] - CHECKING FOR BLOCKAGE - NO STENTS History of testicular surgery History of colonoscopy MULTIPLE History of tonsillectomy and adenoidectomy History of right hemicolectomy H/O prostatectomy Family History Mother Coronary heart disease Father Heart disease Social History Smoking Status: Never smoker Second Hand Exposure: No; Do You Dip or Chew Tobacco: No; Hx Alcohol Use: No Hx Substance Use: No Preferred Language: Spanish Communication Ability: Effective Hearing Ability: Hard of Hearing Medical Instrument Cable Fabricator Required: No Beliefs That Will Affect Care: None marital status: Single Current Living Situation: Alone Current Living Situation Comment: caregivers come to see him daily current occupational status: retired How many Children do You have: 0 Feels Safe at Home: Yes Safety Concerns: Feels Safe At This Time Diet: diabetic Diet Comment: Increased protein for healing per chart during the past year weight has: remained stable Assistive Devices: Glasses, Walker and Wheelchair Review of Systems Review of Systems: All systems reviewed & are unremarkable except as noted in HPI & below Physical Exam Constitutional: WD/WN, vitals as above Eyes: PERRL, conjunctivae normal, anicteric sclerae Neck: trachea midline, no thyromegaly Respiratory: normal respiratory effort; no respiratory distress and no labored breathing Cardiovascular: Rate/Rhythm: regular rate and regular rhythm Gastrointestinal (Abdomen): Inspection/Auscultation: abdomen normal to inspection Percussion/Palpation: abdomen soft; abdomen nontender Skin: no rashes, warm and dry sacral area with five 6 cm area of erythema and ecchymosis. No skin breakdown no fluctuance Psychiatric: A+Ox3, euthymic affect Results & Data Vital Signs (Past 12 Hours) Vital Signs Temp Pulse Pulse Resp BP Pulse Ox O2 Del Method 08/19/23 11:22 36.6 C 60 18 101/62 96 Room Air 08/19/23 10:14 60 08/19/23 07:53 36.4 C L 63 18 126/60 99 Room Air 08/19/23 02:44 36.6 C 60 18 116/73 97 Room Air Laboratory Results 08/19/23 08/19/23 08/19/23 Range/Units 11:00 07:26 05:24 WBC 10.36 (4.8-10.8) K/ul RBC 4.45 L (4.70-6.10) M/uL Hgb 13.0 L (14.0-18.0) g/dl Hct 39.7 L (42.0-52.0) % MCV 89.2 (80.0-100.0) fL MCH 29.2 (25.0-34.0) pg MCHC 32.7 (32.0-36.0) g/dL RDW Std Deviation 53.1 H (36.4-46.3) fL RDW Coeff of Gabriela 16.2 H (11.5-14.5) % Plt Count 205 (130-400) K/uL MPV 10.0 (9.4-12.4) fL Immature Gran % (Auto) 0.7 % Neut % (Auto) 66.3 % Lymph % (Auto) 22.7 % [place] % (Auto) 8.9 % Eos % (Auto) 1.1 % Baso % (Auto) 0.3 % Neut # (Auto) 6.88 H (1.40-6.50) K/uL Lymph # (Auto) 2.35 (1.20-3.40) K/uL [place] # (Auto) 0.92 H (0.11-0.59) K/uL Eos # (Auto) 0.11 (0.00-0.50) K/uL Baso # (Auto) 0.03 (0.00-0.20) K/uL Immature Gran # (Auto) 0.07 (0.01-0.20) K/uL PT 21.0 H (9.0-12.0) Seconds INR 2.0 H (0.9-1.1) VBG pH (7.36-7.41) VBG pCO2 (38-50) mmHg VBG pO2 mmHg VBG HCO3 mmol/L VBG O2 Saturation % VBG Base Excess mEq/L Sodium 141 (136-145) mmol/L Potassium 4.1 (3.5-5.1) mmol/L Chloride 105 (98-107) mmol/L Carbon Dioxide 32 (21-32) mmol/L Anion Gap 4 (3-11) BUN 19 (6-23) mg/dl Creatinine 1.42 H D (0.6-1.4) mg/dl Est Cr Clr Drug Dosing 40.6 Est GFR ( Amer) 50.7 ml/min Est GFR (Non-Af Amer) 43.8 ml/min BUN/Creatinine Ratio 13.4 (10-20) Glucose 127 H (70-99(Fasting)) mg/dl POC Glucose 126 H 123 H (70-99) mg/dl Estimat Average Glucose 126 mg/dl Hemoglobin A1c 6.0 H (4.5-5.6) % Lactate (0.4-2.0) mmol/L Calcium 8.1 L (8.6-10.3) mg/dl Magnesium 2.1 (1.7-2.4) mg/dl Total Bilirubin (0.2-1.0) mg/dl Direct Bilirubin (0-0.2) mg/dl AST (13-39) U/L ALT (7-52) U/L Alkaline Phosphatase (34-104) U/L Troponin I High Sens (0-20) pg/ml Total Protein (6.0-8.3) gm/dl Albumin (3.4-5.0) gm/dl Procalcitonin Urine Color Urine Appearance (Clear) Urine pH (4.5-7.5) Ur Specific [place] (1.000-1.030) Urine Protein (Negative) Urine Glucose (UA) (Negative) Urine Ketones (Negative) Urine Blood (Negative) Urine Nitrite (Negative) Urine Bilirubin (Negative) Urine Urobilinogen (Negative) Ur Leukocyte Esterase (Negative) Urine WBC (Auto) (0-5) /hpf Urine RBC (Auto) (0-2) /hpf U Hyaline Cast (Auto) (0-2) /lpf U Epithel Cells (Auto) (0-2) /hpf Urine Bacteria (Auto) (None Seen) Adenovirus (PCR) (NotDetected) B. pertussis DNA (PCR) (NotDetected) B.parapertussis DNA PCR (NotDetected) C. pneumoniae DNA (PCR) (NotDetected) Coronavirus OC43 (PCR) (NotDetected) Coronavirus HKU1 (PCR) (NotDetected) Coronavirus 229E (PCR) (NotDetected) SARS-CoV-2 (PCR) (NotDetected) Coronavirus NL63 (PCR) (NotDetected) Human Metapneumovir PCR (NotDetected) Influenza Type A (PCR) (NotDetected) Influenza Type B (PCR) (NotDetected) M. pneumoniae (PCR) (NotDetected) Parainfluenza 1 (PCR) (NotDetected) Parainfluenza 2 (PCR) (NotDetected) Parainfluenza 3 (PCR) (NotDetected) Parainfluenza 4 (PCR) (NotDetected) RSV (PCR) (NotDetected) Entero/Rhino (PCR) (NotDetected) 08/18/23 08/18/23 08/18/23 Range/Units Unknown 22:46 16:57 WBC (4.8-10.8) K/ul RBC (4.70-6.10) M/uL Hgb (14.0-18.0) g/dl Hct (42.0-52.0) % MCV (80.0-100.0) fL MCH (25.0-34.0) pg MCHC (32.0-36.0) g/dL RDW Std Deviation (36.4-46.3) fL RDW Coeff of Gabriela (11.5-14.5) % Plt Count (130-400) K/uL MPV (9.4-12.4) fL Immature Gran % (Auto) % Neut % (Auto) % Lymph % (Auto) % [place] % (Auto) % Eos % (Auto) % Baso % (Auto) % Neut # (Auto) (1.40-6.50) K/uL Lymph # (Auto) (1.20-3.40) K/uL [place] # (Auto) (0.11-0.59) K/uL Eos # (Auto) (0.00-0.50) K/uL Baso # (Auto) (0.00-0.20) K/uL Immature Gran # (Auto) (0.01-0.20) K/uL PT (9.0-12.0) Seconds INR (0.9-1.1) VBG pH 7.39 (7.36-7.41) VBG pCO2 57 H (38-50) mmHg VBG pO2 < 20 mmHg VBG HCO3 35 mmol/L VBG O2 Saturation < 60.0 % VBG Base Excess 7.6 mEq/L Sodium (136-145) mmol/L Potassium (3.5-5.1) mmol/L Chloride (98-107) mmol/L Carbon Dioxide (21-32) mmol/L Anion Gap (3-11) BUN (6-23) mg/dl Creatinine (0.6-1.4) mg/dl Est Cr Clr Drug Dosing Est GFR ( Amer) ml/min Est GFR (Non-Af Amer) ml/min BUN/Creatinine Ratio (10-20) Glucose (70-99(Fasting)) mg/dl POC Glucose 92 (70-99) mg/dl Estimat Average Glucose mg/dl Hemoglobin A1c (4.5-5.6) % Lactate (0.4-2.0) mmol/L Calcium (8.6-10.3) mg/dl Magnesium (1.7-2.4) mg/dl Total Bilirubin (0.2-1.0) mg/dl Direct Bilirubin (0-0.2) mg/dl AST (13-39) U/L ALT (7-52) U/L Alkaline Phosphatase (34-104) U/L Troponin I High Sens (0-20) pg/ml Total Protein (6.0-8.3) gm/dl Albumin (3.4-5.0) gm/dl Procalcitonin 0.04 Urine Color Yellow Urine Appearance Cloudy A (Clear) Urine pH 5.0 (4.5-7.5) Ur Specific [place] 1.015 (1.000-1.030) Urine Protein Negative (Negative) Urine Glucose (UA) Negative (Negative) Urine Ketones Negative (Negative) Urine Blood 2+ H (Negative) Urine Nitrite Positive A (Negative) Urine Bilirubin Negative (Negative) Urine Urobilinogen Negative (Negative) Ur Leukocyte Esterase 3+ H (Negative) Urine WBC (Auto) 21-50 H (0-5) /hpf Urine RBC (Auto) 11-20 H (0-2) /hpf U Hyaline Cast (Auto) 3-5 H (0-2) /lpf U Epithel Cells (Auto) 0-2 (0-2) /hpf Urine Bacteria (Auto) 4+ H (None Seen) Adenovirus (PCR) Not Detected (NotDetected) B. pertussis DNA (PCR) Not Detected (NotDetected) B.parapertussis DNA PCR Not Detected (NotDetected) C. pneumoniae DNA (PCR) Not Detected (NotDetected) Coronavirus OC43 (PCR) Not Detected (NotDetected) Coronavirus HKU1 (PCR) Not Detected (NotDetected) Coronavirus 229E (PCR) Not Detected (NotDetected) SARS-CoV-2 (PCR) Not Detected (NotDetected) Coronavirus NL63 (PCR) Not Detected (NotDetected) Human Metapneumovir PCR Not Detected (NotDetected) Influenza Type A (PCR) Not Detected (NotDetected) Influenza Type B (PCR) Not Detected (NotDetected) M. pneumoniae (PCR) Not Detected (NotDetected) Parainfluenza 1 (PCR) Not Detected (NotDetected) Parainfluenza 2 (PCR) Not Detected (NotDetected) Parainfluenza 3 (PCR) Not Detected (NotDetected) Parainfluenza 4 (PCR) Not Detected (NotDetected) RSV (PCR) Not Detected (NotDetected) Entero/Rhino (PCR) Not Detected (NotDetected) 08/18/23 08/18/23 Range/Units 16:00 15:47 WBC 10.11 (4.8-10.8) K/ul RBC 5.19 (4.70-6.10) M/uL Hgb 15.1 (14.0-18.0) g/dl Hct 46.6 (42.0-52.0) % MCV 89.8 (80.0-100.0) fL MCH 29.1 (25.0-34.0) pg MCHC 32.4 (32.0-36.0) g/dL RDW Std Deviation 53.8 H (36.4-46.3) fL RDW Coeff of Gabriela 16.3 H (11.5-14.5) % Plt Count 249 (130-400) K/uL MPV 9.7 (9.4-12.4) fL Immature Gran % (Auto) 0.7 % Neut % (Auto) 71.3 % Lymph % (Auto) 20.2 % [place] % (Auto) 7.0 % Eos % (Auto) 0.5 % Baso % (Auto) 0.3 % Neut # (Auto) 7.21 H (1.40-6.50) K/uL Lymph # (Auto) 2.04 (1.20-3.40) K/uL [place] # (Auto) 0.71 H (0.11-0.59) K/uL Eos # (Auto) 0.05 (0.00-0.50) K/uL Baso # (Auto) 0.03 (0.00-0.20) K/uL Immature Gran # (Auto) 0.07 (0.01-0.20) K/uL PT 22.8 H (9.0-12.0) Seconds INR 2.2 H (0.9-1.1) VBG pH (7.36-7.41) VBG pCO2 (38-50) mmHg VBG pO2 mmHg VBG HCO3 mmol/L VBG O2 Saturation % VBG Base Excess mEq/L Sodium 140 (136-145) mmol/L Potassium 4.3 (3.5-5.1) mmol/L Chloride 103 (98-107) mmol/L Carbon Dioxide 32 (21-32) mmol/L Anion Gap 5 (3-11) BUN 21 (6-23) mg/dl Creatinine 1.12 (0.6-1.4) mg/dl Est Cr Clr Drug Dosing Not Reportable Est GFR ( Amer) 67.6 ml/min Est GFR (Non-Af Amer) 58.3 ml/min BUN/Creatinine Ratio 18.8 (10-20) Glucose 190 H (70-99(Fasting)) mg/dl POC Glucose (70-99) mg/dl Estimat Average Glucose mg/dl Hemoglobin A1c (4.5-5.6) % Lactate 1.7 (0.4-2.0) mmol/L Calcium 8.6 (8.6-10.3) mg/dl Magnesium 2.0 (1.7-2.4) mg/dl Total Bilirubin 0.4 (0.2-1.0) mg/dl Direct Bilirubin 0.1 (0-0.2) mg/dl AST 28 (13-39) U/L ALT 25 (7-52) U/L Alkaline Phosphatase 115 H (34-104) U/L Troponin I High Sens 17.5 (0-20) pg/ml Total Protein 7.3 (6.0-8.3) gm/dl Albumin 3.7 (3.4-5.0) gm/dl Procalcitonin Cancelled Urine Color Urine Appearance (Clear) Urine pH (4.5-7.5) Ur Specific [place] (1.000-1.030) Urine Protein (Negative) Urine Glucose (UA) (Negative) Urine Ketones (Negative) Urine Blood (Negative) Urine Nitrite (Negative) Urine Bilirubin (Negative) Urine Urobilinogen (Negative) Ur Leukocyte Esterase (Negative) Urine WBC (Auto) (0-5) /hpf Urine RBC (Auto) (0-2) /hpf U Hyaline Cast (Auto) (0-2) /lpf U Epithel Cells (Auto) (0-2) /hpf Urine Bacteria (Auto) (None Seen) Adenovirus (PCR) (NotDetected) B. pertussis DNA (PCR) (NotDetected) B.parapertussis DNA PCR (NotDetected) C. pneumoniae DNA (PCR) (NotDetected) Coronavirus OC43 (PCR) (NotDetected) Coronavirus HKU1 (PCR) (NotDetected) Coronavirus 229E (PCR) (NotDetected) SARS-CoV-2 (PCR) (NotDetected) Coronavirus NL63 (PCR) (NotDetected) Human Metapneumovir PCR (NotDetected) Influenza Type A (PCR) (NotDetected) Influenza Type B (PCR) (NotDetected) M. pneumoniae (PCR) (NotDetected) Parainfluenza 1 (PCR) (NotDetected) Parainfluenza 2 (PCR) (NotDetected) Parainfluenza 3 (PCR) (NotDetected) Parainfluenza 4 (PCR) (NotDetected) RSV (PCR) (NotDetected) Entero/Rhino (PCR) (NotDetected) Diagnostic Findings CT pelvis w/IV con only HISTORY: 88 years-old Male Sacral ulcer, eval for underlying infection COMPARISON: CT abdomen and pelvis 01/15/2021 TECHNIQUE: Multiple axial CT images of the bony pelvis were obtained with IV contrast. A dose lowering technique was used consistent with the principals of CIRILO. FINDINGS: Atherosclerosis of the aorta, iliac and femoral arteries. Lymphadenopathy. Decompressed urinary bladder with Berman catheter in place. Urinary bladder wall thickening with diverticula. Moderate sized fat filled inguinal hernias. Prostatectomy with prior geraldo dissection. Colonic diverticulosis. Moderate fecal retention of the rectum with rectal wall thickening and mild perirectal stranding. 2.7 cm exophytic cyst of the inferior pole left kidney. Subcutaneous edema noted likely correlating with the reported sacral decubitus ulcer. No abscess. Degenerative changes of the spine, SI joints and hips. No acute fracture or acute osseous erosion is identified. Cortical thickening of the mid sacrum may represent a healed chronic fracture. Chronic L4 burst fracture is partially imaged. IMPRESSION: 1. There is mild subcutaneous edema of the upper gluteal cleft/presacral tissues . No abscess or evidence of acute osteomyelitis. 2. Prior prostatectomy. 3. Constipation with suggested stercoral proctitis. 4. Colonic diverticulosis.
[2023-08-19] MEDS ORDERED: VANCOMYCIN HCL 1,250 MG in SODIUM CHLORIDE 0.9% 250 ML IV SCH (14:00)
--- NOTE | 2023-08-19 14:33 | Hospitalist Progress Note ---
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 Couple of days ago the patient had low-grade fever. When wound care nurse came today and checked him thought he needs to come to the hospital for sacral wounds. Patient has pain in the sacral region. And also pain in the left foot. Left toes are somewhat blackish discoloration and patient says is going on since last Monday. Patient says he has appointment with vascular surgery next Monday. His appetite is okay. Eating and drinking okay. No difficulty swallowing. Denies any headache. No blurred vision. Has some runny nose from allergies. No sore throat. No cough. No chest pain. He states when he moves around has short of breath. No nausea. No abdominal pain. States alternates with constipation and diarrhea. Denies any blood in the stools. Sometimes he gets hematuria. Currently hemodynamically stable. Sacral wounds Sacral pressure ulcers with blackish discoloration Pelvic CT did not show any evidence of abscess and/or osteomyelitis Start IV Vanco and Invanz-Invanz was changed to intravenous meropenem for coverage of ESBL Wound care consult-awaiting input and recommendation Appreciate surgery input and recommendation-no surgical indication at this time and will continue wound care management Advised to have frequent change of posture Peripheral vascular disease Some blackish discoloration of the left toes going on for few days now Following with vascular surgery Will follow artery ultrasound and consult vascular surgery arterial doppler shows OVD and occluded distal LULY(Present on Doppler on August 03) Has significant peripheral vascular disease and has been under care of Dr. Ulrich Supposed to have a procedure on Monday as an outpatient Will consult Dr. Ulrich to evaluate the patient in the hospital UTI Chronic indwelling Berman catheter Antibiotics as above Will follow cultures-08/17/2023 -is growing Klebsiella pneumoniae and repeat urine culture is growing gram-negative bacilli Chronic systolic CHF EF 45% on echo in January 2021 Getting gentle fluids Continue home Lasix and potassium supplements Monitor for volume overload History of paroxysmal atrial fibrillation History of AV geraldo block s/p pacemaker On amiodarone and metoprolol succinate and Coumadin Follow PT/INR-remains therapeutic at 2.0 CKD stage III Presented with creatinine 1.1 Will follow labs 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 History of hepatitis B in his 20s as per patient History of colon cancer s/p partial colectomy History of CAD On metoprolol and Coumadin Depression with anxiety On Remeron and lorazepam Type 2 diabetes Continue home Lantus Sliding scale Will monitor DVT prophylaxis On Coumadin Follow PT/INR Disposition Med/telemetry CODE STATUS full code check if there is chance of recovery as per my discussion with the patient Admission and Anticipated Discharge Date Admission Date: August 18, 2023 Subjective 08/19/2023 The patient was seen and examined in telemetry unit Has been complaining of pain over the sacral wound Right foot is numb without any significant pain Review of Systems Review of Systems: All systems reviewed and are unremarkable except as noted below Physical Exam Physical Exam: Lying in bed without any acute distress Constitutional: well developed, well nourished, + ill appearing and average body habitus Eyes: PERRL, conjunctivae normal, anicteric sclerae ENMT: external ear and nose normal, oropharynx normal Neck: trachea midline, no thyromegaly Respiratory: no respiratory distress Auscultation: lungs clear to auscultation bilaterally and + diminished lung sounds (At the bases and dependent parts) Cardiovascular: Rate/Rhythm: regular rate and regular rhythm; not tachycardic Heart Sounds: normal S1, normal S2 and + murmur Extremities: + edema (Trace edema bilaterally) Gastrointestinal (Abdomen): Inspection/Auscultation: normal bowel sounds; abdomen not distended Percussion/Palpation: abdomen soft; abdomen nontender Musculoskeletal: No acute arthritis involving any of the joint Skin: Dry gangrenous elation involving the toes. Loss of sensations in the toes and foot. Not cold to touch and palpate Neurologic: Alert, awake and oriented x 3 Lymphatic: no cervical or axillary lymphadenopathy Results & Data Results & Data Vital Signs (Past 12 Hours) Vital Signs Temp Pulse Pulse Resp BP Pulse Ox O2 Del Method 08/19/23 11:22 36.6 C 60 18 101/62 96 Room Air 08/19/23 10:14 60 08/19/23 07:53 36.4 C L 63 18 126/60 99 Room Air 08/19/23 02:44 36.6 C 60 18 116/73 97 Room Air Laboratory Results Short CBC 08/18/23 08/19/23 Range/Units 15:47 05:24 WBC 10.11 10.36 (4.8-10.8) K/ul Hgb 15.1 13.0 L (14.0-18.0) g/dl Hct 46.6 39.7 L (42.0-52.0) % Plt Count 249 205 (130-400) K/uL BMP 08/18/23 08/19/23 15:47 05:24 Sodium 140 141 Potassium 4.3 4.1 Chloride 103 105 Carbon Dioxide 32 32 BUN 21 19 Creatinine 1.12 1.42 H D Glucose 190 H 127 H Calcium 8.6 8.1 L Liver Function 08/18/23 Range/Units 15:47 Total Bilirubin 0.4 (0.2-1.0) mg/dl Direct Bilirubin 0.1 (0-0.2) mg/dl AST 28 (13-39) U/L ALT 25 (7-52) U/L Alkaline Phosphatase 115 H (34-104) U/L Albumin 3.7 (3.4-5.0) gm/dl Urine 08/18/23 Range/Units Unknown Urine Color Yellow Urine Appearance Cloudy A (Clear) Urine pH 5.0 (4.5-7.5) Ur Specific [place] 1.015 (1.000-1.030) Urine Protein Negative (Negative) Urine Glucose (UA) Negative (Negative) Medications Administered Current Inpatient Medications Acetaminophen (Acetaminophen 325 Mg Tab) 650 mg PO Q4H PRN PRN Reason: Pain or Fever Stop: 09/17/23 22:24 Amiodarone HCl (Amiodarone 200 Mg Tab) 200 mg PO QAM COUNTS INCLUDE 234 BEDS AT THE [facility] Stop: 09/18/23 08:59 Last Admin: 08/19/23 08:53 Dose: 200 mg Betamethasone/Clotrimazole (Clotrimazole/Betamethasone Cr 15 Gm Tube) 1 appln EXT AMHS ABIODUN Stop: 09/17/23 22:24 Last Admin: 08/19/23 10:23 Dose: 1 appln Bisacodyl (Bisacodyl 10 Mg Supp) 10 mg IN DAILY PRN PRN Reason: Constipation Stop: 09/17/23 22:24 Calcium/Vitamin D (Calcium 600mg + Vit D 400 Iu Tab) 1 tab PO QAM ABIODUN Stop: 09/18/23 08:59 Last Admin: 08/19/23 08:53 Dose: 1 tab Dextrose (Dextrose 50% 50 Ml Syringe) 25 - 50 ml IV UD PRN; Protocol PRN Reason: Hypoglycemia Protocol Stop: 09/17/23 22:24 Docusate Sodium (Docusate Sodium 100 Mg Cap) 100 mg PO BID ABIODUN Stop: 09/17/23 22:24 Last Admin: 08/19/23 08:53 Dose: 100 mg Furosemide (Furosemide 40 Mg Tab) 40 mg PO QAM ABIODUN Stop: 09/18/23 08:59 Last Admin: 08/19/23 08:53 Dose: 40 mg Gabapentin (Gabapentin 300 Mg Cap) 300 mg PO TID ABIODUN Stop: 09/17/23 22:24 Last Admin: 08/19/23 08:52 Dose: 300 mg Glucagon (Glucagon For Inj 1 Mg Vial) 1 mg SQ UD PRN; Protocol PRN Reason: Hypoglycemia Protocol Stop: 09/17/23 22:24 Glucose (Glucose 40% Gel 15 Gm Tube) 15 - 30 gm PO UD PRN; Protocol PRN Reason: Hypoglycemia Protocol Stop: 09/17/23 22:24 Glucose (Glucose 10 Tab/Tube) 4 - 8 tab PO UD PRN; Protocol PRN Reason: Hypoglycemia Treatment Stop: 09/17/23 22:24 Sodium Chloride (Nss) 1,000 mls @ 75 mls/hr IV .[id number] COUNTS INCLUDE 234 BEDS AT THE [facility] Stop: 08/20/23 01:04 Last Admin: 08/19/23 12:18 Dose: 75 mls/hr Vancomycin HCl 1,000 mg/ (Sodium Chloride) 270 mls @ 200 mls/hr IV Q24H COUNTS INCLUDE 234 BEDS AT THE [facility] Stop: 08/26/23 09:59 Last Infusion: 08/19/23 11:47 Dose: Infused Meropenem 500 mg/ Syringe 10 mls @ 2 mls/min IV Q8H COUNTS INCLUDE 234 BEDS AT THE [facility]; Protocol Stop: 08/26/23 11:59 Last Admin: 08/19/23 12:18 Dose: 2 mls/min Insulin Aspart (Insulin Aspart Per Unit Charge) 0 units SC ACHS COUNTS INCLUDE 234 BEDS AT THE [facility] Stop: 09/17/23 22:24 Last Admin: 08/19/23 11:05 Dose: Not Given Insulin Glargine (Lantus Per Unit Charge) 14 units SQ DAILY COUNTS INCLUDE 234 BEDS AT THE [facility] Stop: 09/18/23 08:59 Last Admin: 08/19/23 08:55 Dose: 14 units Loratadine (Loratadine 10 Mg Tab) 10 mg PO QAM COUNTS INCLUDE 234 BEDS AT THE [facility] Stop: 09/18/23 08:59 Last Admin: 08/19/23 08:53 Dose: 10 mg Lorazepam (Lorazepam 0.5 Mg Tab) 0.5 mg PO HS COUNTS INCLUDE 234 BEDS AT THE [facility] Stop: 09/17/23 22:24 Last Admin: 08/19/23 00:08 Dose: 0.5 mg Magnesium Oxide (Magnesium Oxide 400 Mg Tab) 400 mg PO QAM COUNTS INCLUDE 234 BEDS AT THE [facility] Stop: 09/18/23 08:59 Last Admin: 08/19/23 08:53 Dose: 400 mg Melatonin (Melatonin 3 Mg Tab) 6 mg PO HS PRN PRN Reason: Sleep Stop: 09/18/23 00:28 Last Admin: 08/19/23 01:48 Dose: 6 mg Metoprolol Succinate (Metoprolol Succ 25mg Ext Rel Tab) 25 mg PO Q[place]USCOG[place] Stop: 09/18/23 08:59 Last Admin: 08/19/23 08:53 Dose: 25 mg Midodrine (Midodrine Hcl 2.5 Mg Tab) 2.5 mg PO BID@0900,1700 COUNTS INCLUDE 234 BEDS AT THE [facility] Stop: 09/18/23 08:59 Last Admin: 08/19/23 08:53 Dose: 2.5 mg Mirtazapine (Mirtazapine Tab 15 Mg Tab) 30 mg PO HS COUNTS INCLUDE 234 BEDS AT THE [facility] Stop: 09/17/23 22:24 Last Admin: 08/19/23 00:10 Dose: 30 mg Miscellaneous (Carbohydrates For Hypoglycemia ) 15 - 30 gm PO UD PRN PRN Reason: Hypoglycemia Protocol Stop: 09/17/23 22:24 Miscellaneous Information (Vancomycin Consult Active) 1 each N/A UD PRN PRN Reason: Consult Stop: 09/17/23 19:08 Multivitamins/Minerals (Cerovite Adv Formula Tab) 1 tab PO QAM COUNTS INCLUDE 234 BEDS AT THE [facility] Stop: 09/18/23 08:59 Last Admin: 08/19/23 08:53 Dose: 1 tab Nitroglycerin (Nitroglycerin Sl 0.4 Mg/Tab Tab) 0.4 mg SL Q5M PRN PRN Reason: Chest Pain Stop: 09/17/23 22:24 Nystatin (Nystatin Powder 15gm Btl) 1 appln EXT DAILY COUNTS INCLUDE 234 BEDS AT THE [facility] Stop: 09/18/23 08:59 Last Admin: 08/19/23 08:53 Dose: 1 appln Oxycodone HCl (Oxycodone Hcl Ir 5 Mg Tab (Immediate Release)) 5 mg PO Q12H PRN PRN Reason: mod-severe pain Stop: 09/01/23 22:24 Last Admin: 08/19/23 10:22 Dose: 5 mg Polyethylene Glycol (Polyethylene (Miralax) 17 Gm Pack) 17 gm PO DAILY PRN PRN Reason: Constipation Stop: 09/17/23 22:24 Potassium Chloride (Potassium Chloride Crtab 20 Meq Tabcr) 20 meq PO DAILY COUNTS INCLUDE 234 BEDS AT THE [facility] Stop: 09/18/23 08:59 Last Admin: 08/19/23 08:53 Dose: 20 meq Warfarin Sodium (Warfarin Sod 1 Mg Tab) 1 mg PO [id number]@1600 COUNTS INCLUDE 234 BEDS AT THE [facility] Stop: 09/17/23 23:44 Last Admin: 08/19/23 00:10 Dose: 1 mg Warfarin Sodium (Warfarin Sod 2 Mg Tab) 2 mg PO [id number]@1600 COUNTS INCLUDE 234 BEDS AT THE [facility] Stop: 09/18/23 15:59
[2023-08-19] MEDS: WARFARIN SOD 2 MG TAB PO SCH (17:00)
--- OUTSIDE RECORDS SUMMARY | 2023-08-19 19:47 | External Medical Summary | Summary of Care ---
Author Name Unknown Organization [facility] Address [address] [place] [address] Phone [phone] Care Team Providers Care [employer] Senior Specialist Name Role Phone Vianey Matamoros MD Primary Care Provider [phone] Reason for Visit * Reason Comments Dosage Adjustment Via Phone (anticoag Cl inic) Encounter Details Date Type Department Care Team (Latest Contact Info) Description 08/18/2023 6:00 AM EDT Anticoagulation Pharmacy Call Center [phone] [place] [address] [facility] [address] [place] [id number] Persistent atrial fibrillation (HCC)* Allergies Active Allergy Reactions Criticality Noted Date Comments Ampicillin Rash Medium 02/28/2023 Losartan Potassium Flushing Low 01/06/2010 Environmental 07/22/2002 Hayfever, dust, mold Macrolides And Ketolides 11/27/2017 Nitrofurantoin Diarrhea,Nausea/vom iting 04/27/2022 Sildenafil 11/27/2017 Streptomycin 11/27/2017 Sulfites 12/05/2009 Vasopressin 11/27/2017 documented as of this encounter (statuses as of 08/18/2023) Medications Medication Sig Dispensed Refills Start Date End Date Status Acetaminophen 325 MG Oral Tablet Take 1 Tablet by mouth every 6 hours as needed for Pain. 0 Active Multiple Vitamins-Minerals (OCUVITE ADULT FORMULA) CAPS Take 1 Cap by mouth daily. 30 Cap 0 8 Active loratadine (CLARITIN) 10 MG TabletIndications:A llergic rhinitis, unspecified seasonality, unspecified trigger TAKE 1 TAB BY MOUTH DAILY. 30 Tab 5 8 Active Magnesium Oxide (MAG-OX 400) 400 MG TabletIndications:H eart failure, etiology unknown (HCC) Take 1 Tab by mouth daily. 30 Tab 0 8 Active Calcium Carbonate-Vitamin D (CALCIUM-D) 600-400 MG-UNIT per tablet Take 1 Tab by mouth 2 times a day. 0 Active Docusate Sodium 100 MG Oral Capsule (Colace) Take 1 Capsule by mouth in the morning and 1 Capsule before bedtime. 120 Capsule 0 3 Active Mometasone Furoate 0.1 % External Solution (Elocon) Apply topically to affected area daily. To affected area. 30 mL 0 3 Active Stress Formula (w/ Minerals) Oral Tablet Take 1 Tablet by mouth in the morning. 0 Active Sure Comfort Insulin Syringe 30G X 1/2" 0.5 ML (Insulin Syringe-Needle U-100)Indications:T ype 2 diabetes mellitus with hemoglobin A1c goal of less than 8.0% ([facility]) Use once daily with Lantus 90 Each 1 3 Active Furosemide 40 MG Oral Tablet (Lasix)Indications: Heart failure, systolic, due to CAD ([facility]) Take 1 Tablet by mouth in the morning. 30 Tablet 0 4 Active Gabapentin 300 MG Oral Capsule (Neurontin)Indicati ons:Diabetic polyneuropathy associated with diabetes mellitus due to underlying condition ([facility]) Take 1 Capsule by mouth in the morning and 1 Capsule at noon and 1 Capsule before bedtime. 90 Capsule 0 4 Active Melatonin 5 MG Oral TabletIndications:C hronic insomnia Take 1 Tablet by mouth at bedtime. 30 Tablet 0 4 Active Warfarin Sodium 1 MG Oral Tablet (Coumadin)Indicatio ns:Chronic atrial fibrillation (HCC) Take one tab by mouth daily, OR Take as directed by anticoagulation pharmacist 30 Tablet 0 4 Active Insulin Glargine 100 UNIT/ML Subcutaneous Solution (Lantus)Indications :Type 2 diabetes mellitus with hemoglobin A1c goal of less than 8.0% (HCC) Inject 16 Units under the skin in the morning. 15 mL 3 4 Active OneTouch Ultra In Vitro Strip (Glucose Blood)Indications:T ype 2 diabetes mellitus with hemoglobin A1c goal of less than 8.0% ([facility]) TEST 2 TIMES A DAY DIRECTED 200 Strip 3 4 Active Polyethylene Glycol 3350 17 GM/SCOOP Oral Powder (MiraLax) Take 17 g by mouth in the morning. Dissolve one heaping tablespoon in 8 ounces of water or juice.. 0 4 Active Unilet ComforTouch Lancet Use to test blood sugar twice daily. 200 Each 3 4 Active Potassium Chloride Zofia ER 20 MEQ Oral Tablet Extended ReleaseIndications: Hypokalemia Take 1 Tablet by mouth in the morning. 30 Tablet 2 4 Active Mirtazapine 30 MG Oral Tablet (Remeron)Indication s:Chronic insomnia,Depression with anxiety Take 1 Tablet by mouth every night at bedtime. 90 Tablet 3 4 Active Midodrine HCl 2.5 MG Oral Tablet (Proamatine)Indicat ions:Syncope and collapse Take 1 Tablet by mouth in the morning and 1 Tablet before bedtime. 180 Tablet 3 4 Active Metoprolol Succinate ER 25 MG Oral Tablet Extended Release 24 Hour (toPROL XL)Indications:Hear t failure, systolic, due to CAD (HCC) Take 1 Tablet by mouth in the morning. 90 Tablet 3 4 Active Amiodarone HCl 200 MG Oral Tablet (Cordarone)Indicati ons:Chronic atrial fibrillation (HCC) Take 1 Tablet by mouth in the morning. 90 Tablet 1 4 Active LORazepam 1 MG Oral Tablet (Ativan)Indications :Chronic insomnia,Depression with anxiety Take 1 Tablet by mouth at bedtime as needed for Anxiety. 90 Tablet 0 4 Active Zolpidem Tartrate 5 MG Oral Tablet (Ambien)Indications :Chronic insomnia Take 1 Tablet by mouth at bedtime as needed for Sleep. 30 Tablet 0 4 Active documented as of this encounter (statuses as of 08/18/2023) Active Problems Problem Noted Date Diagnosed Date Pressure injury of left heel, stage 2 04/27/2023 Atherosclerosis of [place] ar teries of left leg with ulceration of other part of foot 04/27/2023 S/P amputation of lesser toe, left 03/02/2023 Pressure sore on buttocks, right, unstageable Pressure ulcer of left buttock, unstageable 12/2022 Closed displaced fracture of surgical neck of le ft humerus 06/30/2022 Aspiration into airway, sequela 03/31/2022 Overview: thin liquids with the chin tuck method, not thickened liquids per SP Bilateral exudative age-related macular degenera tion 05/18/2021 H/O dysplastic nevus 03/11/2021 Overview: Low grade dysplastic nevus (R posterior thigh) Amputation of toe of right foot 06/10/2020 Stage 3a chronic kidney disease 03/02/2020 Overview: Per CKD protocol - Per CKD protocol Diabetic polyneuropathy asso ciated with diabetes mellitus due to underlying condition 05/15/2019 Paroxysmal atrial fibrillation 05/15/2019 Berman catheter status 05/15/2019 History of colon cancer 09/12/2018 Urinary retention with incomplete bladder emptyi ng 05/02/2018 Encounter for long-term (current) use of insulin 03/20/2018 Secondary hyperparathyroidism, non-renal 018 Iron deficiency anemia 08/03/2017 History of malignant melanoma of skin 05/08/2017 Overview: melanoma in situ (right chest 07/31 regression to 0.7mm, R posterior shoulder 06/14) Hx of nonmelanoma skin cancer 05/08/2017 Overview: squamous cell carcinoma (R helical rim , L preauricular region 09/28), basal cell carcinoma (R cheek 09/28, R cheek 05/11, L mid back 05/11, R preauricular 03/14) Heart failure, systolic, due to CAD 02/25/2015 Cardiac pacemaker in situ 02/11/2011 Mass of parotid gland 01/24/2011 DYSLIPIDEMIA, GOAL LDL BELOW 70 04/06/2009 Overview: Per Lipid Taxonomy. Type 2 diabetes mellitus wit h hemoglobin A1c goal of less than 8.0% 02/19/2009 Overview: Per Diabetes Taxonomy. ICD-10 update of inactive term Left acoustic neuroma 06/02/2008 JOINT PAIN-L-LEG 06/23/2005 ADVANCE DIRECTIVE INFORMATION 10/19/2004 Overview: No, Advance Directive brochure given to patient at prior appointment. VRL HEPATITIS B W/O MENT. OF HEPATIC COMA, ACUTE OR UNSPEC., WITHOUT MENT. OF 01/24/2002 Depression with anxiety Insomnia Overview: ICD-10 update of inactive term GENERAL OSTEOARTHROSIS Chronic coronary artery disease Overview: Significant PDA disease otherwise Ok on cath 07/30 documented as of this encounter (statuses as of 08/18/2023) Resolved Problems Problem Noted Date Diagnosed Date Resolved Date Osteomyelitis of fifth toe of left foot 03/02/2023 04/27/2023 Decubitus ulcer of left heel, stage 4 09/22/2022 03/02/2023 Atherosclerosis of [place] artery of extremity 07/01/19 23 04/27/2023 Chronic kidney disease, stage 3b 10/06/2020 04/27/2023 Overview: Per CKD protocol Kidney disease, chronic, sta ge III (GFR 30-59 ml/min) 02/04/2019 03/05/2020 Overview: Per CKD protocol Rectal bleeding 10/15/2018 04/27/2023 Persistent atrial fibrillation 05/02/2018 05/15/2019 Closed compression fracture of fourth lumbar vertebra 05/02/2018 05/15/2019 Primary adenocarcinoma of ascending colon 07/31/2017 05/02/2018 Colon cancer 07/21/2017 03/02/2023 Overview: underwent colon resection Irregular bowel habits 06/20/201606/04 Heart failure, systolic, due to CAD 02/25/2015 03/27/2018 Abnormal cardiovascular stress test 11/21/2014 02/27/2017 Frequent PVCs 10/22/2014 02/27/2017 Atrial fibrillation 10/07/2014 06/04/19 19 CHB (complete heart block) 12/30/2013 0 08/16/2017 HTN, goal below 140/90 02/11/201101/07 OBESITY, BMI 30-34 (SEE ACTUAL BMI) 07/16/2009 10/24/2016 Overview: Per Obesity Taxonomy Heart failure, etiology unknown 02/19/2009 02/14/2013 Overview: Per Heart Failure Taxonomy Protocol. MALIG MELANOMA TRUNK- excised 07/29/2008 09/03/2008 05/08/2017 Overview: Dr. Colin Hypertrophy of breast 11/27/20072011 Shortness of breath 08/13/2007 06/04/19 19 Dyslipidemia, goal LDL below 160 08/10/2007 04/06/2009 Overview: Per Lipid Taxonomy. Urinary incontinence 05/01/2007 012 Overview: ICD-10 update of inactive term DIAB RENAL MANIF ADULT 04/21/200602/19 Overview: Per Diabetes Taxonomy. Other bilateral bundle branch block 06/23/2005 02/27/2017 Overview: Stress ECHO wnl 2004 BENIGN JACKIE CRANIAL NERVE 06/23/2005 Overview: IMPRESSION: 07/27 MRI NSC 1. 6 x 3 mm acoustic neuroma in the left internal auditory canal. 2. Left parafalcine subdural hygroma as well as right vertex arachnoid cyst. 3. Left sinus disease. 07/28 [facility] ENT F/U: MRI of brain with and without contrast performed today: MRI revealed an enhancing left intracanalicular tumor measuring ~7mm from medial to lateral. Imp: Stable left IAC enhancing lesion consistent with acoustic neuroma. Bilateral cerumen accumulation Syncope and collapse 01/30/2004 017 Overview: Mri-brain w/wo contrast Addendum 02/10/04- 02/03/04 MRI with white matter changes and an 8 mm ovoid enhancement of L auditory canal along L 7th and 8th neurovascular bundle c/w a small intracnanlicular acoustic neuroma Will recommend an ENT appointment with [facility] ENT Dr. 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 Type 2 diabetes mellitus wit h hemoglobin A1c goal of less than 7.0% 02/19/2009 Overview: Per Diabetes Taxonomy. ICD-10 update of inactive term History of colonic polyps Overview: ICD-10 update of inactive term OBESITY, UNSPECIFIED 010 Overview: Per Obesity Taxonomy Other allergic rhinitis 12/23 Overview: ICD-10 update of inactive term Malignant neoplasm of skin 0 05/08/2017 Overview: ICD-10 update of inactive term CYSTIC KIDNEY DISEASE,UNSPEC. 01/07/2019 Polyp of nasal sinus 018 Deviated nasal septum 2017 MALIGN NEOPL PROSTATE 2017 Diabetic polyneuropathy 05/25 Overview: ICD-10 update of inactive term Heart failure, etiology unknown 02/19/2009 Overview: Per Heart Failure Taxonomy Protocol. documented as of this encounter (statuses as of 08/18/2023) Immunizations Name Administration Dates Next Due COVID-19 mRNA, LNP-s, No Pre serve, 2-Dose Series (Siine) 02/19/2021,07/03/2020,06/10/2020 COVID-19, LNP-s, No Preserve , Fawad-sucrose, Ages 12+ (Pfizer) 07/03/2020,06/10/2020 Covid-19, Mrna, Lnp-s, Pf, B ivalent, 10 Mcg, IM, 5-11 yrs (Pfizer) 02/11/2022 Covid-19, Mrna, Lnp-s, Pf, B ivalent, 30 Mcg, IM, 12 yrs and above (Pfizer) 02/11/2022 H1N1 2009 Influenza, IM 05/08/2009 Pneumococcal Conjugate Vacc, 13 Valent (Prevnar) 03/07/2016 Pneumococcal Polysaccharide PPV23 (Pneumovax) 06/22/2000,02/11/1993 Season Influenza, Quad, PF, Adjuvanted, 65+ Yrs, IM (FLUAD) 01/31/2020 Seasonal Influenza, PF, 6 M & above, IM , (FluLaval or Fluzone) 03/04/2023,02/04/2022,02/27/2018,09/2016,02/25/2015 Seasonal Influenza, Quadriva lent Hd (Fluzone Hd) 12/31/2021,01/11/2021 Seasonal Influenza, Quadriva lent, No Preserve, IM 01/25/2016,02/25/2015 01/25/2016 Seasonal Influenza, Split, I IV3, With Preserve, Inj 02/17/2014,02/14/2013,01/12/2012,06/2010,01/06/2010,01/05/2009,02/28/20 08,03/05/2007,03/11/2006,03/28/2005,1 ,03/13/2003,01/29/2002 Seasonal Influenza, Trivalen t, Adjuvanted, 65+ yrs 01/07/2019 Seasonal Influenza, Trivalen t, High Dose, No Preserve, IM 03/11/2018 TD - Tetanus/Diptheria (ADULT) 08/10/2007 TD, Preservative Free 08/10/2007 TDAP (age 10 and older)(Boostrix) 11/05/2018, Varicella Zoster Vaccine (Adult) 05/02/2006 Zoster Vaccine Recombinant (Shingrix) 01/26/2021 ,11/12/2020 documented as of this encounter Social History Tobacco Use Types Packs/Day Years Used Date Smoking Tobacco: Never Smokeless Tobacco: Never Alcohol Use Standard Drinks/Week Comments No 0 (1 standard drink = 0.6 oz pure alcohol) Vodka-one bottle every 5 days- Hx. Patient has not drank since May 2012 PHQ-2 Answer Date Recorded PHQ Adult Total Score 0 06/10/2020 Hunger Vital Sign Answer Date Recorded Within the past 12 months, y ou worried that your food would run out before you got the money to buy more. Never true 06/10/19 21 Within the past 12 months, t he food you bought just didn't last and you didn't have money to get more. Never true 06/10/2020 Sex and Gender Information Value Date Recorded Sex Assigned at Male 11/05/2018 12:56 PM EDT Gender Identity Male 11/05/2018 12:56 PM EDT Sexual Orientation Straight 11/05/2018 12 :56 PM EDT Job Start Date Occupation Industry Not on file Not on file Not on file documented as of this encounter Progress Notes * Xi Villa, [facility] - 08/18/2023 12:15 PM EDT Reviewed instructions with community outreach director Lizeth. Thanks, Xi Villa PharmD Clinical Pharmacist [facility] (Formerly Telepharmacy) [phone] 08/18/2023 12:15 PM * Shanon Dejesus PHARM Tech - 08/18/2023 8:06 AM EDT Contacts Type Contact Phone/Fax 08/18/2023 08:02 AM EDT Phone (Outgoing) Jeovany Sujit Avelino (Self) [phone] (H) Spoke to Patient - Pt stated his Aide will also be calling in to go over dosing when she gets in at10:30am. Subjective Patient Findings Negatives: Signs/symptoms of bleeding, Change in health, Change in activity, Upcoming invasive procedure, Missed doses, Extra doses, Change in medications, Change in diet/appetite, Bruising Advised patient to contact Anticoagulation Clinic if any unusual bruising or bleeding, recent illness, changes in medication, or questions/concerns. PT/INR results, Coumadin dose instructions, and next PT/INR date communicated as noted by Pharmacist: JUAN JOSE Ovalles 08/18/2023, 8:07 AM * Inna Bruno RPh - 08/18/2023 7:55 AM EDT Coumadin Clinic (region specific) Objective Current Warfarin Dose As of 08/18/2023 Warfarin maintenance plan: 2 mg (2 mg x 1) every Sun, Tue, Fri; 1 mg (2 mg x 0.5) all other days INR Result As of 08/18/2023 INR goal: 2.0-2.5 INR used for dosin.3 (08/17/2023) Assessment & Plan Warfarin Plan As of 08/18/2023 Full warfarin instructions: 2 mg every Sun, Tue, Fri; 1 mg all other days No change documented: Inna Bruno jose Next INR check: 08/31/2023 Repeat PT/INR in 2 week(s) Weekly dose: not changed Additional Dosing Information: Description GML Tech to contact patient with dose instructions as noted. Inna Bruno RPh 08/18/2023, 7:55 AM documented in this encounter Plan of Treatment Upcoming Encounters Date Type Department Care Team (Late st Contact Info) Description 08/21/2023 3:00 PM EDT Office Visit Dermatology [facility] [address] [place] [address] Kevin Peguero MD [address] [facility] [place] [address] [place] [id number] 08/31/2023 7:00 AM EDT Laboratory Lab Mobile Phlebotomy [facility] [address] [place] [address] [facility] Home Draw [address] [place] [address] 09/01/2023 6:00 AM EDT Anticoagulation Pharmacy Call Center [address] [place] [address] [facility] [address] [place] [id number] 09/04/2023 1:40 PM EDT Office Visit General Internal Medicine [facility] [employer] [address] [place] [address] Vianey Matamoros MD [facility] [place] [address] [place] [address] 10/05/2023 1:15 PM EDT Office Visit Hematology/Oncology [facility] [address] [place] [phone] Bethel Eng MD [address] [place] [id number] Scheduled Procedures Name Priority Associated Diagnoses Date/Ti me COLONOSCOPY FLEXIBLE PROXIMAL DIAGNOSTIC Recall History of colon polyps Health Maintenance Due Date Last Done Comments DXA Scan 1935 Hepatitis B (2 of 2 - CpG 2-dose series) 02/21/2002 01/24/2002 Albumin/Creatinine Ratio 01/30/2021 020, 02/27/2017, 11/11/2015, Additional history exists Diabetic Foot Exam 01/30/2021 01/31/2020, 0 09/12/2018, 10/24/2016, Additional history exists Diabetic Eye Exam 11/16/2022 11/16/2021, , 10/09/2019, Additional history exists COVID-19 Vaccine ( season) 2022 02/11/2022, 02/11/2022, 09/07/2021, Additional history exists HbA1c 12/30/2023 06/29/2023, 03/24, 03/30/2023, Additional history exists CKD HGB USE SMARTSET 21584 06/28/202406/28, 05/12/2023, 05/11/2023, Additional history exists CKD PHOS USE SMARTSET 40783 06/28/2024 03/0 10/2023, 05/20/2022, 02/05/2021, Additional history exists COLONOSCOPY-EVERY 3 YRS AGES 18-100 05/13/2025 05/13/2022, 10/23/2018, 07/18/2017 DTaP,Tdap,and Td Vaccines (3 - Td or Tdap) 11/05/2028 11/05/2018, 08/10/2007, 08/10/2007, Additional history exists Pneumococcal Vaccine: 65+ Years Completed 03/07/2016, 06/22/2000, 02/11/1993 Zoster Vaccines Completed 01/26/2021, 10/23, 05/02/2006 Influenza Vaccine (FLU shot) Completed 02/2023, 02/04/2022, 12/31/2021, Additional history exists GARDASIL-HPV IMMUNIZATION SERIES Aged Out No longer eligible based on patient's age to complete this topic MENINGOCOCCAL (MENACTRA/MENVEO) Aged Out No longer eligible based on patient's age to complete this topic documented as of this encounter Medical Devices Not on filedocumented as of this encounter Visit Diagnoses Diagnosis Persistent atrial fibrillation (HCC)- Primary Atrial fibrillation documented in this encounter Care Teams [employer] Senior Specialist Relationship Specialty Start Date End Date Vianey Matamoros MD [address] [facility] [place] [address] PCP - General Internal Medicine 01/11/21 documented as of this encounter
--- OUTSIDE RECORDS SUMMARY | 2023-08-19 21:13 | External Medical Summary | Summary of Care ---
Author Name Unknown Organization [facility] Address [address] [place] [address] Phone [phone] Care Team Providers Care Business Attorney Name Role Phone Vianey Matamoros MD Primary Care Provider [phone] Reason for Visit * Reason Onset Date Comments Other 08/18/2023 Encounter Details Date Type Department Care Team (Late st Contact Info) Description 08/18/2023 Telephone Pharmacy, Danyell Kapadia [address] [place] [address] [address] [facility] [address] [place] [address] Other Allergies Active Allergy Reactions Criticality Noted Date [...] hemoglobin A1c goal of less than 8.0% ([facility]) Use once daily with Lantus 90 Each 1 3 Active Furosemide 40 MG Oral Tablet (Lasix)Indications: Heart failure, systolic, due to CAD (HCC) Take 1 Tablet by mouth in the morning. 30 Tablet 0 4 Active Gabapentin 300 MG Oral Capsule (Neurontin)Indicati ons:Diabetic polyneuropathy associated with diabetes mellitus due to underlying condition (HCC) Take 1 Capsule by mouth in the [...] hemoglobin A1c goal of less than 8.0% ([facility]) Inject 16 Units under the skin in the morning. 15 mL 3 4 Active OneTouch Ultra In Vitro Strip (Glucose Blood)Indications:T ype 2 diabetes mellitus with hemoglobin A1c goal of less than 8.0% ([facility]) TEST 2 TIMES A DAY [...] left heel, stage 2 04/27/2023 Atherosclerosis of chinik ar teries of left leg with ulceration [...] heel, stage 4 09/22/2022 03/02/2023 Atherosclerosis of chinik artery of extremity 07/01/19 23 04/27/2023 Chronic [...] cyst. 3. Left sinus disease. 07/28 [facility] F/U: MRI of brain with and [...] Will recommend an ENT appointment with [facility] Dr. Ponce Stress ECHO 2004- negative [...] mRNA, LNP-s, No Pre serve, 2-Dose Series (Jumbas) 02/19/2021,07/03/2020,06/10/2020 COVID-19, LNP-s, No Preserve , Fawad-sucrose, Ages 12+ (Pfizer) 07/03/2020,06/10/2020 Covid-19, Mrna, Lnp-s, Pf, B ivalent, 10 Mcg, IM, 5-11 yrs (Pfizer) 02/11/2022 Covid-19, Mrna, Lnp-s, Pf, B ivalent, 30 Mcg, IM, 12 yrs and above (Pfizer) 02/11/2022 H1N1 2009 Influenza, IM 05/08/2009 Pneumococcal Conjugate Vacc, 13 Valent (Prevnar) 03/07/2016 Season Influenza, Quad, PF, Adjuvanted, 65+ Yrs, IM (FLUAD) 01/31/2020 Seasonal Influenza, PF, 6 M & above, IM , (FluLaval or Fluzone) 03/04/2023,02/04/2022,02/27/2018,02/27,02/25/2015 Seasonal Influenza, Quadriva lent Hd (Fluzone Hd) 12/31/2021,01/11/2021 Seasonal Influenza, Quadriva lent, No Preserve, IM 01/25/2016,02/25/2015 01/25/2016 Seasonal Influenza, Split, I IV3, With Preserve, Inj 02/17/2014,02/14/2013,01/12/2012,01/24,01/06/2010,01/05/2009,02/28/2008 ,03/05/2007,03/11/2006 Seasonal Influenza, Trivalen t, Adjuvanted, 65+ yrs 01/07/2019 Seasonal Influenza, Trivalen t, High Dose, No Preserve, IM 03/11/2018 TD - Tetanus/Diptheria (ADULT) 08/10/2007 TD, Preservative Free 08/10/2007 TDAP (age 10 and older)(Boostrix) 11/05/2018, Varicella Zoster Vaccine (Adult) 05/02/2006 Zoster Vaccine Recombinant (Shingrix) 01/26/2021,11/12/2020 documented as of this encounter Social History [...] on file documented as of this encounter Miscellaneous Notes * Telephone Encounter - Xi Villa [facility] - 08/18/2023 12:15 PM EDT Spoke with Lizeth in today's ACC encounter & reviewed warfarin dosing/monitoring instructions. Thanks, Xi Villa PharmD Clinical Pharmacist [facility] ([facility]) (Formerly Telepharmacy) [phone] 08/18/2023 12:15 PM * Telephone Encounter - Ariel Wei CPhT - 08/18/2023 10:30 AM EDT Caller's name: Lizeth Preferred call back number(OFFICE NUMBER FOR ): [phone] Reason for call: Questions about Coumadin/ Lovenox dosing: Pt caregiver calling for dose dirs Thank you, Ariel Wei CPhT Resource Recovery Engineer [facility] 08/18/2023,10:31 AM documented in this encounter Plan of Treatment Upcoming Encounters Date Type Department Care Team (Late st Contact Info) Description 08/21/2023 3:00 PM EDT Office Visit Dermatology [facility] [address] [facility] [address] [place] [address] Kevin Peguero MD [address] [facility] [address] [place] [address] 08/31/2023 7:00 AM EDT Laboratory Lab [facility]lebotomy [facility] [address] [place] [address] [facility] Home Draw [address] [facility] [place] [address] 09/01/2023 6:00 AM EDT Anticoagulation Pharmacy Call Center [facility] [phone] [address] [facility] [address] [facility] [place] [address] 09/04/2023 1:40 PM EDT Office Visit General Internal Medicine [facility] [place] [address] [facility] [address] [place] [address] Vianey Matamoros MD [address] [facility] [address] [place] [address] 10/05/2023 1:15 PM EDT Office Visit Hematology/Oncology [facility] [address] [place] [address] Bethel Eng MD [address] [facility] [place] [address] Scheduled Procedures Name Priority Associated Diagnoses Date/Ti [...] Additional history exists CKD HGB USE SMARTSET 61090 06/28/202406/28, 05/12/2023, 05/11/2023, Additional history exists CKD PHOS USE SMARTSET 43810 06/28/2024 03/0 10/2023, 05/20/2022, 02/05/2021, Additional history [...] Not on filedocumented as of this encounter Care Teams Business Attorney Relationship Specialty Start Date End Date Vianey Matamoros MD [address] [facility] [place] [address] PCP - General Internal Medicine 01/11/21 documented as of this encounter
--- NOTE | 2023-08-19 21:52 | Vascular Medicine Consultation ---
Date of Consultation August 19, 2023 Assessment & Plan (1) PAD (peripheral artery disease): 2. Recurrent diabetic foot ulcerspost left fifth toe amputation. Now recurrent ulcers involving first through fourth digits. 3. Sacral decubitus ulcer 4. Nonambulatory status since fall/femoral fracture 04/2022 nonischemic cardiomyopathy, last EF 45% 5. Coronary artery diseasemedically managed PDA disease 6. AV block post pacemaker 7. Persistent atrial fibrillation on anticoagulation 8. Bilateral left greater than right lower extremity edemasuspected lymphedema on left post trauma 9. 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 Nonischemic cardiomyopathyLVEF 45% 11. AKIstage III CKD Left diabetic foot ulcers stable compared with outpatient visit 4 days ago. Pain reasonably controlled. No evidence of active infection. We previously had discussed options for management of his PAD and left popliteal stent occlusion. Despite risks of procedure patient very clear wants to do everything possible to help avoid further amputation. He was scheduled to undergo outpatient angiogram/intervention on Thursday 08/24. Probably unlikely will be able to do procedure sooner than Monday. Will do as an inpatient if still hospitalized at that time. Will need warfarin held for 3 days prior to procedure. History of Present Illness Attending Physician: Ravi Orr MD History of Present Illness Mr. Thayer is a pleasant 88-year-old man who we follow for his PAD with recurrent lower extremity diabetic foot ulcers. 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 Post intervention and eventually had surgical wound healing after fifth toe amputation. Unfortunately has had recurrence of ulcers involving his remaining digits on left foot. Being followed by wound clinic. Was seen in office last week after arterial duplex showed reocclusion of popliteal stent and diminished toe pressures. Plan had been for repeat angiogram/intervention Thursday 08/24. Patient was admitted yesterday after wound nurse noted worsening of his sacral decubitus ulcers. Has been placed on broad-spectrum IV antibiotics and awaiting surgical consult. CT of pelvis without evidence of osteo or abscess. Allergies Allergy/AdvReac Type Severity Reaction Status Date / Time ampicillin Allergy Intermediate Rash Verified 08/16/23 13:54 Macrolide Antibiotics Allergy Unknown PER Verified 08/16/23 13:54 MEDICAL RECORD sildenafil Allergy Unknown SWELLING Verified 08/16/23 13:54 OF FACE AND HEAD streptomycin Allergy Unknown N/V Verified 08/16/23 13:54 sulfite Allergy Unknown THROAT Verified 08/16/23 13:54 SWELLING nitrofurantoin AdvReac Diarrhea Verified 08/16/23 13:54 VASODILATORS Allergy Unknown "PERIPHERAL Uncoded 08/16/23 13:54 DILATOR" swelling of face and head Home Medications Medication Instructions Recorded Confirmed Type amiodarone 200 mg tablet 200 mg PO QAM 01/02/18 08/18/23 History insulin glargine 100 unit/mL 8 units subcut BID 01/02/18 08/18/23 History subcutaneous solution loratadine 10 mg tablet 10 mg PO QAM 01/02/18 08/18/23 History magnesium oxide 400 mg (241.3 mg 400 mg PO QAM 01/02/18 08/18/23 History magnesium) tablet metoprolol succinate 25 mg 25 mg PO QAM 01/02/18 08/18/23 History tablet,extended release 24 hr gabapentin 300 mg capsule 300 mg PO TID 03/10/18 08/18/23 History docusate sodium 100 mg capsule 100 mg PO BID 04/27/22 08/18/23 History (Colace) mometasone 0.1 % topical solution 1 applic topical .EVERY 24 HOURS 04/27/22 08/18/23 History PRN Itching acetaminophen 325 mg capsule 650 mg PO Q4 PRN PAIN/FEVER 05/10/22 08/18/23 History bisacodyl 10 mg rectal suppository 10 mg ME .EVERY 24 HOURS PRN 12/01/22 08/18/23 History Constipation calcium carbonate 500 mg-vitamin 1 tab PO QAM 12/01/22 08/18/23 History D3 5 mcg (200 unit) tablet (Oyster Shell Calcium-Vitamin D3) lorazepam 0.5 mg tablet 0.5 mg PO HS 12/01/22 08/18/23 History mirtazapine 30 mg tablet (Remeron) 30 mg PO HS 12/01/22 08/18/23 History multivit,stress formula-zinc tablet 1 tab PO DAILY 12/01/22 08/18/23 History warfarin 1 mg tablet 1 mg PO 3XWK 12/01/22 08/18/23 History midodrine 2.5 mg tablet 2.5 mg PO BID 03/10/23 08/18/23 History zolpidem 5 mg tablet (Ambien) 5 mg PO QPM 03/10/23 08/18/23 History ceramides 1,3,6-II 1 applic topical DAILY 04/14/23 08/18/23 History clotrimazole-betamethasone 1 1 applic topical AMHS 04/14/23 08/18/23 History %-0.05 % topical cream furosemide 40 mg tablet 40 mg PO QAM 04/14/23 08/18/23 History eazuylxd-hsp-ozpvt7 250 mg-dha 90 1 cap PO QAM 04/14/23 08/18/23 History mg-epa 160 ox-dpgs-fgww-zeax capsule (Ocuvite Adult 50 Plus) oxycodone 5 mg tablet 5 mg PO Q12H PRN mod-severe pain 04/14/23 08/18/23 History warfarin 2 mg tablet 2 mg PO 4XWK 04/14/23 08/18/23 History melatonin 5 mg capsule 5 mg PO HS 06/15/23 08/18/23 History nystatin 100,000 unit/gram topical 1 applic topical DAILY #60 grams 06/21/23 08/18/23 Rx powder methenamine hippurate 1 gram tablet 1 g PO DAILY 08/18/23 08/18/23 History potassium chloride 20 mEq 0 meq PO UD 08/18/23 08/18/23 History tablet,extended release(part/cryst) Patient History Medical History Bacterial septicemia PVD (peripheral vascular disease) Berman catheter in place gets changed monthly Cerebrovascular disease Heart failure History of airway aspiration Ambulatory dysfunction History of hepatitis B Renal failure ? 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 History of anesthesia reaction WITH TESTICULAR SURGERY, [facility] - INCREASED BP & HAD TO STAY OVERNIGHT History of cardiac cath years ago> [facility] - CHECKING FOR BLOCKAGE - NO STENTS History of testicular surgery History of colonoscopy MULTIPLE History of tonsillectomy and adenoidectomy History of right hemicolectomy H/O prostatectomy Family History Mother Coronary heart disease Father Heart disease Social History Smoking Status: Never smoker Second Hand Exposure: No; Do You Dip or Chew Tobacco: No; Hx Alcohol Use: No Hx Substance Use: No Preferred Language: Micronesian Communication Ability: Effective Hearing Ability: Hard of Hearing Hose Seamer Required: No Beliefs That Will Affect Care: None marital status: Single Current Living Situation: Alone Current Living Situation Comment: caregivers come to see him daily current occupational status: retired How many Children do You have: 0 Feels Safe at Home: Yes Safety Concerns: Feels Safe At This Time Diet: diabetic Diet Comment: Increased protein for healing per chart during the past year weight has: remained stable Assistive Devices: Glasses, Walker and Wheelchair Review of Systems Review of Systems: All systems reviewed & are unremarkable except as noted in HPI & below Physical Exam Physical Exam: General: Comfortable, frail no acute distress Eyes: Sclerae anicteric Lungs: Clear to auscultation bilaterally, no rhonchi or wheezes Cardiac: Irregular irregular, no murmurs Abdomen: Soft, nontender Neuro: Nonfocal Psych: Alert orient x3, normal affect and mood Extremities/Vascular: -- 2+ radial bilaterally -- Nonpalpable popliteal pulses -- Nonpalpable DP/PT pulses bilaterally. Sluggish capillary refill on left. Clustered wounds involving first through fourth toes with eschar and webspaces. Minimal drainage. Minimal erythema involving toes (improved from 3 days ago. Minimal sensation to light touch. Results & Data Vital Signs (Past 12 Hours) Vital Signs Temp Pulse Pulse Resp BP Pulse Ox O2 Del Method 08/19/23 19:32 98.1 F 61 18 114/67 96 Room Air 08/19/23 15:11 97.7 F 60 18 113/65 94 Room Air 08/19/23 14:46 60 08/19/23 11:22 97.9 F 60 18 101/62 96 Room Air 08/19/23 10:14 60 PG Care Time/CCT Total # of Minutes Spent Total Time Spent with Patient: Total time spent is greater than 50% in coordination of care (as documented) at patient's floor/unit and/or counseling patient: Coding Level of Care Code 87709 INT INP/OBS CARE 3/75MIN Diagnoses PAD (peripheral artery disease) I73.9
[2023-08-19] MEDS: ZOLPIDEM TARTRATE 5 MG TAB PO PRN (23:51)
[2023-08-20 06:09] LABS: Basophils # (auto) 0.03 K/uL (0.00-0.20); Basophils % (auto) 0.4 %; Eosinophils # (auto) 0.09 K/uL (0.00-0.50); Eosinophils % (auto) 1.1 %; Hematocrit (blood only) 37.6 % (42.0-52.0); Hemoglobin 12.1 g/dl (14.0-18.0); Immature Granulocytes # (auto) 0.06 K/uL (0.01-0.20); Immature Granulocytes % (auto) 0.7 %; Lymphocytes % (auto) 28.4 %; Mean Corpuscular Hemoglobin 28.9 pg (25.0-34.0); Mean Corpuscular Hgb Conc 32.2 g/dL (32.0-36.0); Mean Corpuscular Volume 89.7 fL (80.0-100.0); Mean Platelet Volume 9.7 fL (9.4-12.4); Monocytes # (auto) 0.69 K/uL (0.11-0.59); Monocytes % (auto) 8.5 %; Neutrophils # (auto) 4.93 K/uL (1.40-6.50); Neutrophils % (auto) 60.9 %; Platelet Count 188 K/uL (130-400); RDW Standard Deviation 52.8 fL (36.4-46.3); Red Blood Count 4.19 M/uL (4.70-6.10)
[2023-08-20 06:15] LABS: INR 1.9 (0.9-1.1)
[2023-08-20 06:30] LABS: BUN Creatinine Ratio 21.6 (10-20); Calcium 7.5 mg/dl (8.6-10.3); Creatinine Clr Calc Pharmacy 59.5 ml/min; Est GFR (African American) 80.5 ml/min; Est GFR (Non-African American) 69.4 ml/min; Magnesium 1.8 mg/dl (1.7-2.4); Phosphorus 3.2 mg/dl (2.5-4.9); Potassium 3.9 mmol/L (3.5-5.1)
--- NOTE | 2023-08-20 10:35 | Hospitalist Progress Note ---
Date of Service August 20, 2023 Assessment & Plan (1) Wound of sacral region: Plan: 88-year-old male with past medical history significant for type 2 diabetes, secondary hyperparathyroidism, hyperlipidemia, diabetic polyneuropathy, history of aspiration into airway, chronic CAD, history of paroxysmal atrial fibrillation, history of cardiac pacemaker, history of chronic systolic CHF, history of atherosclerosis of [place] arteries of left leg with ulceration, hi story of hepatitis B, history of mass of parotid gland, CKD stage III, history of urinary retention on chronic Berman since last 20 years as per patient, history of amputation of right foot toe, history of pressure sores on buttocks, bilateral macular degeneration, left acoustic neuroma, iron deficiency anemia, depression with anxiety, history of colon cancer s/p hemicolectomy patient lives alone at home and gets help daily in the morning and is mostly wheelchair-bound was brought in because of the infection of the sacral ulcers and also found to have UTI. Couple of days ago the patient had low-grade fever. When wound care nurse came today and checked him thought he needs to come to the hospital for sacral wounds. Patient has pain in the sacral region. And also pain in the left foot. Left toes are somewhat blackish discoloration and patient says is going on since last Monday. Patient says he has appointment with vascular surgery next Monday. His appetite is okay. Eating and drinking okay. No difficulty swallowing. Denies any headache. No blurred vision. Has some runny nose from allergies. No sore throat. No cough. No chest pain. He states when he moves around has short of breath. No nausea. No abdominal pain. States alternates with constipation and diarrhea. Denies any blood in the stools. Sometimes he gets hematuria. Currently hemodynamically stable. Sacral wounds Sacral pressure ulcers with blackish discoloration Pelvic CT did not show any evidence of abscess and/or osteomyelitis Start IV Vanco and Invanz-Invanz was changed to intravenous meropenem for coverage of ESBL Wound care consult-awaiting input and recommendation Appreciate surgery input and recommendation-no surgical indication at this time and will continue wound care management Advised to have frequent change of posture Awaiting evaluation by wound care nurse and recommendation before goes home in a day or 2 Peripheral vascular disease Some blackish discoloration of the left toes going on for few days now Following with vascular surgery Will follow artery ultrasound and consult vascular surgery arterial doppler shows OVD and occluded distal LULY(Present on Doppler on August 03) Has significant peripheral vascular disease and has been under care of Dr. Ulrich Supposed to have a procedure on Monday as an outpatient Appreciate vascular surgery input and recommendation-the patient still wants to save the foot and will go for proposed procedure on third of next month UTI Chronic indwelling Berman catheter Antibiotics as above Will follow cultures-08/17/2023 -is growing Klebsiella pneumoniae and repeat urine culture is growing gram-negative bacilli Urine culture is growing Klebsiella pneumoniae and the patient has been on meropenem Will continue with the current antibiotic Vanco and meropenem and de-escalate tomorrow following sacral wound evaluation Chronic systolic CHF EF 45% on echo in January 2021 Getting gentle fluids Continue home Lasix and potassium supplements Monitor for volume overload History of paroxysmal atrial fibrillation History of AV geraldo block s/p pacemaker On amiodarone and metoprolol succinate and Coumadin Follow PT/INR-remains therapeutic at 2.0 CKD stage III Presented with creatinine 1.1 Will follow labs 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 History of hepatitis B in his 20s as per patient History of colon cancer s/p partial colectomy History of CAD On metoprolol and Coumadin Depression with anxiety On Remeron and lorazepam Type 2 diabetes Continue home Lantus Sliding scale Will monitor DVT prophylaxis On Coumadin Follow PT/INR Disposition Med/telemetry CODE STATUS full code check if there is chance of recovery as per my discussion with the patient Admission and Anticipated Discharge Date Admission Date: August 18, 2023 Subjective 08/19/2023 The patient was seen and examined in telemetry unit Has been complaining of pain over the sacral wound Right foot is numb without any significant pain 08/20/2023 The patient was seen and examined in telemetry unit He has been stable and denies any significant symptoms Waiting for wound care nurse to manage the sacral wound Appreciate vascular surgery input and recommendation Likely discharge tomorrow Review of Systems Review of Systems: All systems reviewed and are unremarkable except as noted below Physical Exam Physical Exam: Lying in bed without any acute distress Constitutional: well developed, well nourished, + ill appearing and average body habitus Eyes: PERRL, conjunctivae normal, anicteric sclerae ENMT: external ear and nose normal, oropharynx normal Neck: trachea midline, no thyromegaly Respiratory: no respiratory distress Auscultation: lungs clear to auscultation bilaterally and + diminished lung sounds (At the bases and dependent parts) Cardiovascular: Rate/Rhythm: regular rate and regular rhythm; not tachycardic Heart Sounds: normal S1, normal S2 and + murmur Extremities: + edema (Trace edema bilaterally) Gastrointestinal (Abdomen): Inspection/Auscultation: normal bowel sounds; abdomen not distended Percussion/Palpation: abdomen soft; abdomen nontender Musculoskeletal: No acute arthritis involving any of the joints Neurologic: + abnormal touch/pain/proprioception (De creased touch sensation in the left foot) Psychiatric: A+Ox3, euthymic affect Lymphatic: no cervical or axillary lymphadenopathy Results & Data Results & Data Vital Signs (Past 12 Hours) Vital Signs Temp Pulse Pulse Resp BP Pulse Ox O2 Del Method 08/20/23 07:42 36.6 C 60 18 129/86 100 Room Air 08/20/23 07:18 60 08/20/23 03:10 36.5 C 60 18 113/64 98 Room Air 08/20/23 01:53 60 08/19/23 23:26 36.5 C 60 18 135/65 95 Room Air Laboratory Results Short CBC 08/20/23 Range/Units 05:14 WBC 8.10 (4.8-10.8) K/ul Hgb 12.1 L (14.0-18.0) g/dl Hct 37.6 L (42.0-52.0) % Plt Count 188 (130-400) K/uL BMP 08/20/23 05:14 Sodium 141 Potassium 3.9 Chloride 106 Carbon Dioxide 30 BUN 21 Creatinine 0.97 D Glucose 93 Calcium 7.5 L Medications Administered Current Inpatient Medications Acetaminophen (Acetaminophen 325 Mg Tab) 650 mg PO Q4H PRN PRN Reason: Pain or Fever Stop: 09/17/23 22:24 Amiodarone HCl (Amiodarone 200 Mg Tab) 200 mg PO QAM [facility] Stop: 09/18/23 08:59 Last Admin: 08/20/23 08:24 Dose: 200 mg Betamethasone/Clotrimazole (Clotrimazole/Betamethasone Cr 15 Gm Tube) 1 appln EXT AMHS [facility] Stop: 09/17/23 22:24 Last Admin: 08/20/23 08:25 Dose: 1 appln Bisacodyl (Bisacodyl 10 Mg Supp) 10 mg IA DAILY PRN PRN Reason: Constipation Stop: 09/17/23 22:24 Calcium/Vitamin D (Calcium 600mg + Vit D 400 Iu Tab) 1 tab PO QAM [facility]ID[facility] Stop: 09/18/23 08:59 Last Admin: 08/20/23 08:25 Dose: 1 tab Dextrose (Dextrose 50% 50 Ml Syringe) 25 - 50 ml IV UD PRN; Protocol PRN Reason: Hypoglycemia Protocol Stop: 09/17/23 22:24 Docusate Sodium (Docusate Sodium 100 Mg Cap) 100 mg PO BID ABIODUN Stop: 09/17/23 22:24 Last Admin: 08/20/23 08:24 Dose: 100 mg Furosemide (Furosemide 40 Mg Tab) 40 mg PO QAM ABIODUN Stop: 09/18/23 08:59 Last Admin: 08/20/23 08:24 Dose: 40 mg Gabapentin (Gabapentin 300 Mg Cap) 300 mg PO TID ABIODUN Stop: 09/17/23 22:24 Last Admin: 08/20/23 08:24 Dose: 300 mg Glucagon (Glucagon For Inj 1 Mg Vial) 1 mg SQ UD PRN; Protocol PRN Reason: Hypoglycemia Protocol Stop: 09/17/23 22:24 Glucose (Glucose 40% Gel 15 Gm Tube) 15 - 30 gm PO UD PRN; Protocol PRN Reason: Hypoglycemia Protocol Stop: 09/17/23 22:24 Glucose (Glucose 10 Tab/Tube) 4 - 8 tab PO UD PRN; Protocol PRN Reason: Hypoglycemia Treatment Stop: 09/17/23 22:24 Vancomycin HCl 1,000 mg/ (Sodium Chloride) 270 mls @ 200 mls/hr IV Q24H [facility] Stop: 08/26/23 09:59 Last Admin: 08/20/23 10:08 Dose: 200 mls/hr Meropenem 500 mg/ Syringe 10 mls @ 2 mls/min IV Q8H [facility]; Protocol Stop: 08/26/23 11:59 Last Admin: 08/20/23 03:29 Dose: 2 mls/min Insulin Aspart (Insulin Aspart Per Unit Charge) 0 units SC ACHS [facility] Stop: 09/17/23 22:24 Last Admin: 08/20/23 07:36 Dose: Not Given Insulin Glargine (Lantus Per Unit Charge) 14 units SQ DAILY [facility] Stop: 09/18/23 08:59 Last Admin: 08/20/23 08:22 Dose: 14 units Loratadine ([facility]or[facility]adine 10 Mg Tab) [facility] Stop: 09/18/23 08:59 Last Admin: 08/20/23 08:25 Dose: 10 mg Lorazepam (Lorazepam 0.5 Mg Tab) 0.5 mg PO HS [facility] Stop: 09/17/23 22:24 Last Admin: 08/19/23 21:23 Dose: 0.5 mg Magnesium Oxide (Magnesium Oxide 400 Mg Tab) 400 mg PO QAM [facility] Stop: 09/18/23 08:59 Last Admin: 08/20/23 08:25 Dose: 400 mg Melatonin (Melatonin 3 Mg Tab) 6 mg PO HS PRN PRN Reason: Sleep Stop: 09/18/23 00:28 Last Admin: 08/19/23 23:51 Dose: 6 mg Metoprolol Succinate (Metoprolol Succ 25mg Ext Rel Tab) [facility] Stop: 09/18/23 08:59 Last Admin: 08/20/23 08:24 Dose: 25 mg Midodrine (Midodrine Hcl 2.5 Mg Tab) 2.5 mg PO BID@0900,1700 [facility] Stop: 09/18/23 08:59 Last Admin: 08/20/23 08:25 Dose: 2.5 mg Mirtazapine (Mirtazapine Tab 15 Mg Tab) 30 mg PO HS [facility] Stop: 09/17/23 22:24 Last Admin: 08/19/23 20:58 Dose: 30 mg Miscellaneous (Carbohydrates For Hypoglycemia ) 15 - 30 gm PO UD PRN PRN Reason: Hypoglycemia Protocol Stop: 09/17/23 22:24 Miscellaneous Information (Vancomycin Consult Active) 1 each N/A UD PRN PRN Reason: Consult Stop: 09/17/23 19:08 Multivitamins/Minerals (Cerovite Adv Formula Tab) [facility] Stop: 09/18/23 08:59 Last Admin: 08/20/23 08:24 Dose: 1 tab Nitroglycerin (Nitroglycerin Sl 0.4 Mg/Tab Tab) 0.4 mg SL Q5M PRN PRN Reason: Chest Pain Stop: 09/17/23 22:24 Nystatin (Nystatin Powder 15gm Btl) 1 appln EXT DAILY [facility] Stop: 09/18/23 08:59 Last Admin: 08/20/23 08:25 Dose: 1 appln Oxycodone HCl (Oxycodone Hcl Ir 5 Mg Tab (Immediate Release)) 5 mg PO Q12H PRN PRN Reason: mod-severe pain Stop: 09/01/23 22:24 Last Admin: 08/19/23 10:22 Dose: 5 mg Polyethylene Glycol (Polyethylene (Miralax) 17 Gm Pack) 17 gm PO DAILY PRN PRN Reason: Constipation Stop: 09/17/23 22:24 Potassium Chloride (Potassium Chloride Crtab 20 Meq Tabcr) 20 meq PO DAILY [facility] Stop: 09/18/23 08:59 Last Admin: 08/20/23 08:25 Dose: 20 meq Warfarin Sodium (Warfarin Sod 1 Mg Tab) 1 mg PO [id number]@1600 [facility] Stop: 09/17/23 23:44 Last Admin: 08/19/23 00:10 Dose: 1 mg Warfarin Sodium (Warfarin Sod 2 Mg Tab) 2 mg PO [id number]@1600 [facility] Stop: 09/18/23 15:59 Last Admin: 08/19/23 17:00 Dose: 2 mg Zolpidem Tartrate (Zolpidem Tartrate 5 Mg Tab) 5 mg PO HS PRN PRN Reason: Sleep Stop: 09/18/23 23:44 Last Admin: 08/19/23 23:51 Dose: 5 mg
[2023-08-20] MEDS: MEROPENEM 500 MG in SYRINGE 0 ML IV SCH (11:39)
[2023-08-20] MEDS: VANCOMYCIN HCL 750 MG in SODIUM CHLORIDE 0.9% 250 ML IV SCH (22:15)
[2023-08-21 07:42] LABS: Creatinine Clr Calc Pharmacy 60.7 ml/min; Est GFR (African American) 82.5 ml/min; Est GFR (Non-African American) 71.2 ml/min
[2023-08-21 07:43] LABS: INR 1.7 (0.9-1.1); Prothrombin Time 17.9 Seconds (9.0-12.0)
[2023-08-21] MEDS: ACETAMINOPHEN 325 MG TAB PO PRN (08:22)
--- NOTE | 2023-08-21 13:35 | Hospitalist Progress Note ---
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 Couple of days ago the patient had low-grade fever. When wound care nurse came today and checked him thought he needs to come to the hospital for sacral wounds. Patient has pain in the sacral region. And also pain in the left foot. Left toes are somewhat blackish discoloration and patient says is going on since last Monday. Patient says he has appointment with vascular surgery next Monday. His appetite is okay. Eating and drinking okay. No difficulty swallowing. Denies any headache. No blurred vision. Has some runny nose from allergies. No sore throat. No cough. No chest pain. He states when he moves around has short of breath. No nausea. No abdominal pain. States alternates with constipation and diarrhea. Denies any blood in the stools. Sometimes he gets hematuria. Currently hemodynamically stable. Sacral wounds-stage III Sacral pressure ulcers with blackish discoloration Pelvic CT did not show any evidence of abscess and/or osteomyelitis Start IV Vanco and Invanz-Invanz was changed to intravenous meropenem for coverage of ESBL Wound care consult-awaiting input and recommendation Appreciate surgery input and recommendation-no surgical indication at this time and will continue wound care management Advised to have frequent change of posture Awaiting evaluation by wound care nurse and recommendation before goes home in a day or 2 Appreciate wound care nurse input and recommendation for dressing as an outpatient He will have usual follow-up of at the wound clinic as an outpatient Peripheral vascular disease Some blackish discoloration of the left toes going on for few days now Following with vascular surgery Will follow artery ultrasound and consult vascular surgery arterial doppler shows OVD and occluded distal LULY(Present on Doppler on August 03) Has significant peripheral vascular disease and has been under care of Dr. Ulrich Supposed to have a procedure on Monday as an outpatient Appreciate vascular surgery input and recommendation-the patient still wants to save the foot and will go for proposed procedure on third of next month UTI-catheter associated UTI Chronic indwelling Berman catheter Antibiotics as above Will follow cultures-08/17/2023 -is growing Klebsiella pneumoniae and repeat urine culture is growing gram-negative bacilli Urine culture is growing Klebsiella pneumoniae and the patient has been on meropenem Will continue with the current antibiotic Vanco and meropenem and de-escalate tomorrow following sacral wound evaluation Culture is growing Klebsiella and oral Keflex was given as per the sensitivity Chronic systolic CHF EF 45% on echo in January 2021 Getting gentle fluids Continue home Lasix and potassium supplements Monitor for volume overload History of paroxysmal atrial fibrillation History of AV geraldo block s/p pacemaker On amiodarone and metoprolol succinate and Coumadin Follow PT/INR-remains therapeutic at 2.0 Rate is controlled-advised to have follow-up appointment with coagulation clinic CKD stage III Presented with creatinine 1.1 Will follow labs 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 History of hepatitis B in his 20s as per patient History of colon cancer s/p partial colectomy History of CAD On metoprolol and Coumadin Depression with anxiety On Remeron and lorazepam Type 2 diabetes Continue home Lantus Sliding scale Will monitor DVT prophylaxis On Coumadin Follow PT/INR Disposition Med/telemetry CODE STATUS full code check if there is chance of recovery as per my discussion with the patient Discussed in detail with the patient and the caregiver The patient wanted to go home today and wanted to have appointment with the lab animal technologist Try to persuade but he did not agree to stay any longer Discussed with the caregiver and the caregiver wanted to take him home too He has home health nurse visit as scheduled before He was discharged this afternoon and continue with the care as advised Admission and Anticipated Discharge Date Admission Date: August 18, 2023 Subjective 08/19/2023 The patient was seen and examined in telemetry unit Has been complaining of pain over the sacral wound Right foot is numb without any significant pain 08/20/2023 The patient was seen and examined in telemetry unit He has been stable and denies any significant symptoms Waiting for wound care nurse to manage the sacral wound Appreciate vascular surgery input and recommendation Likely discharge tomorrow 08/21/2023 The patient was seen and examined in telemetry unit He has been stable and wants to go home today He denies any significant symptom Review of Systems Review of Systems: All systems reviewed and are unremarkable except as noted below Physical Exam Physical Exam: Lying in bed without any acute distress Constitutional: well developed, well nourished, + ill appearing and average body habitus Eyes: PERRL, conjunctivae normal, anicteric sclerae ENMT: external ear and nose normal, oropharynx normal Neck: trachea midline, no thyromegaly Respiratory: no respiratory distress Auscultation: lungs clear to auscultation bilaterally and + diminished lung sounds (At the bases and dependent parts) Cardiovascular: Rate/Rhythm: regular rate and regular rhythm; not tachycardic Heart Sounds: normal S1, normal S2 and + murmur Extremities: + edema (Trace edema bilaterally) Gastrointestinal (Abdomen): Inspection/Auscultation: normal bowel sounds; abdomen not distended Percussion/Palpation: abdomen soft; abdomen nontender Musculoskeletal: No acute arthritis involving any of the joints Neurologic: + abnormal touch/pain/proprioception (De creased touch sensation in the left foot) Psychiatric: A+Ox3, euthymic affect Lymphatic: no cervical or axillary lymphadenopathy Results & Data Results & Data Vital Signs (Past 12 Hours) Vital Signs Temp Pulse Pulse Resp BP Pulse Ox O2 Del Method 08/21/23 11:30 36.7 C 60 18 118/58 L 93 Room Air 08/21/23 09:12 60 08/21/23 07:22 59 L 18 103/61 93 Room Air 08/21/23 02:44 36.5 C 60 18 116/65 93 Room Air Laboratory Results BMP 08/21/23 06:23 Creatinine 0.95
--- NOTE | 2023-08-22 08:35 | Discharge Summary ---
Date of Service August 21, 2023 Admission HPI Per Admitting Provider 88-year-old male with past medical history significant for type 2 diabetes, secondary hyperparathyroidism, hyperlipidemia, diabetic polyneuropathy, history of aspiration into airway, chronic CAD, history of paroxysmal atrial fibrillation, history of cardiac pacemaker, history of chronic systolic CHF, history of atherosclerosis of habematolel arteries of left leg with ulceration, history of hepatitis B, history of mass of parotid gland, CKD stage III, history of urinary retention on chronic Berman since last 20 years as per patient, history of amputation of right foot toe, history of pressure sores on buttocks, bilateral macular degeneration, left acoustic neuroma, iron deficiency anemia, depression with anxiety, history of colon cancer s/p hemicolectomy patient lives alone at home and gets help daily in the morning and is mostly wheelchair-bound was brought in because of the infection of the sacral ulcers and also found to have UTI. Couple of days ago the patient had low-grade fever. When wound care nurse came today and checked him thought he needs to come to the hospital for sacral wounds. Patient has pain in the sacral region. And also pain in the left foot. Left toes are somewhat blackish discoloration and patient says is going on since last Monday. Patient says he has appointment with vascular surgery next Monday. His appetite is okay. Eating and drinking okay. No difficulty swallowing. Denies any headache. No blurred vision. Has some runny nose from allergies. No sore throat. No cough. No chest pain. He states when he moves around has short of breath. No nausea. No abdominal pain. States alternates with constipation and diarrhea. Denies any blood in the stools. Sometimes he gets hematuria. Currently hemodynamically stable. Past medical history. As mentioned above Past surgical history. Amputation of the right toe. Left amputation of toe. Colonoscopy had colonoscopy biopsy. EGD. S/p pacemaker. Hemicolectomy for colon adenocarcinoma. Radical removal of prostate. Removal of pelvic lymph nodes. Tonsillectomy and adenoidectomy. Social history. No smoking. Currently no alcohol use. No drug use. Family history. Father had arthritis. Heart disorder. Mother has heart disorder. Thyroid disorder. Admission Exam Per Admitting Provider Physical Exam: General- Not in distress. Head- atraumatic Eyes- PERRL. ENT- oropharynx clear Neck- supple, no JVD. Lungs- clear to auscultation no wheezing or crackles. Heart- regular rhythm; no murmur, no gallop. Abdomen- normal bowel sounds, soft, nontender, no distension Extremities- left lower extremity toes blackish discoloration, Neuro- alert, oriented x PERRL, EOMI; no facial palsy; no dysarthria; moves extremities. Skin- stage 3/4 scaral ulcers with blackish discoloration Principal Diagnosis Complicated UTI, sacral decubitus, peripheral vascular disease with dry gangrene of the toes. Discharge Exam Lying in bed without any acute distress Constitutional well developed, well nourished, + ill appearing and average body habitus Eyes PERRL, conjunctivae normal, anicteric sclerae ENMT external ear and nose normal, oropharynx normal Neck trachea midline, no thyromegaly Respiratory no respiratory distress Auscultation: lungs clear to auscultation bilaterally and + diminished lung sounds (At the bases and dependent parts) Cardiovascular Rate/Rhythm: regular rate and regular rhythm; not tachycardic Heart Sounds: normal S1, normal S2 and + murmur Extremities: + edema (Trace edema bilaterally) Gastrointestinal (Abdomen) Inspection/Auscultation: normal bowel sounds; abdomen not distended Percussion/Palpation: abdomen soft; abdomen nontender Neurologic + abnormal touch/pain/proprioception (Decreased touch sensation in the left foot) Psychiatric A+Ox3, euthymic affect Lymphatic no cervical or axillary lymphadenopathy Discharge Data Allergies Allergy/AdvReac Type Severity Reaction Status Date / Time ampicillin Allergy Intermediate Rash Verified 08/16/23 13:54 Macrolide Antibiotics Allergy Unknown PER Verified 08/16/23 13:54 MEDICAL RECORD sildenafil Allergy Unknown SWELLING Verified 08/16/23 13:54 OF FACE AND HEAD streptomycin Allergy Unknown N/V Verified 08/16/23 13:54 sulfite Allergy Unknown THROAT Verified 08/16/23 13:54 SWELLING nitrofurantoin AdvReac Diarrhea Verified 08/16/23 13:54 VASODILATORS Allergy Unknown "PERIPHERAL Uncoded 08/16/23 13:54 DILATOR" swelling of face and head Consultations 08/18/23 19:13 ED Decision to Admit Stat 08/19/23 06:50 Consult Vascular Surgery Routine 08/19/23 08:00 Consult General Surgery Routine Ordered Studies 08/18/23 15:57 CT pelvis w/IV con only Stat 08/19/23 arterial duplex LE LT Urgent Hospital Course (1) Wound of sacral region: 88-year-old male with past medical history significant for type 2 diabetes, secondary hyperparathyroidism, hyperlipidemia, diabetic polyneuropathy, history of aspiration into airway, chronic CAD, history of paroxysmal atrial fibrillation, history of cardiac pacemaker, history of chronic systolic CHF, history of atherosclerosis of habematolel arteries of left leg with ulceration, history of hepatitis B, history of mass of parotid gland, CKD stage III, history of urinary retention on chronic Berman since last 20 years as per patient, histo ry of amputation of right foot toe, history of pressure sores on buttocks, bilateral macular degeneration, left acoustic neuroma, iron deficiency anemia, depression with anxiety, history of colon cancer s/p hemicolectomy patient lives alone at home and gets help daily in the morning and is mostly wheelchair-bound was brought in because of the infection of the sacral ulcers and also found to have UTI. Couple of days ago the patient had low-grade fever. When wound care nurse came today and checked him thought he needs to come to the hospital for sacral wounds. Patient has pain in the sacral region. And also pain in the left foot. Left toes are somewhat blackish discoloration and patient says is going on since last Monday. Patient says he has appointment with vascular surgery next Monday. His appetite is okay. Eating and drinking okay. No difficulty swallowing. Denies any headache. No blurred vision. Has some runny nose from allergies. No sore throat. No cough. No chest pain. He states when he moves around has short of breath. No nausea. No abdominal pain. States alternates with constipation and diarrhea. Denies any blood in the stools. Sometimes he gets hematuria. Currently hemodynamically stable. Sacral wounds-stage III Sacral pressure ulcers with blackish discoloration Pelvic CT did not show any evidence of abscess and/or osteomyelitis Start IV Vanco and Invanz-Invanz was changed to intravenous meropenem for coverage of ESBL Wound care consult-awaiting input and recommendation Appreciate surgery input and recommendation-no surgical indication at this time and will continue wound care management Advised to have frequent change of posture Awaiting evaluation by wound care nurse and recommendation before goes home in a day or 2 Appreciate wound care nurse input and recommendation for dressing as an outpatient He will have usual follow-up of at the wound clinic as an outpatient Peripheral vascular disease Some blackish discoloration of the left toes going on for few days now Following with vascular surgery Will follow artery ultrasound and consult vascular surgery arterial doppler shows OVD and occluded distal LULY(Present on Doppler on August 03) Has significant peripheral vascular disease and has been under care of Dr. Ulrich Supposed to have a procedure on Monday as an outpatient Appreciate vascular surgery input and recommendation-the patient still wants to save the foot and will go for proposed procedure on third of next month UTI-catheter associated UTI Chronic indwelling Berman catheter Antibiotics as above Will follow cultures-08/17/2023 -is growing Klebsiella pneumoniae and repeat urine culture is growing gram-negative bacilli Urine culture is growing Klebsiella pneumoniae and the patient has been on meropenem Will continue with the current antibiotic Vanco and meropenem and de-escalate tomorrow following sacral wound evaluation Culture is growing Klebsiella and oral Keflex was given as per the sensitivity Chronic systolic CHF EF 45% on echo in January 2021 Getting gentle fluids Continue home Lasix and potassium supplements Monitor for volume overload History of paroxysmal atrial fibrillation History of AV geraldo block s/p pacemaker On amiodarone and metoprolol succinate and Coumadin Follow PT/INR-remains therapeutic at 2.0 Rate is controlled-advised to have follow-up appointment with coagulation clinic CKD stage III Presented with creatinine 1.1 Will follow labs 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 History of hepatitis B in his 20s as per patient History of colon cancer s/p partial colectomy History of CAD On metoprolol and Coumadin Depression with anxiety On Remeron and lorazepam Type 2 diabetes Continue home Lantus Sliding scale Will monitor DVT prophylaxis On Coumadin Follow PT/INR Disposition Med/telemetry CODE STATUS full code check if there is chance of recovery as per my discussion with the patient Discussed in detail with the patient and the caregiver The patient wanted to go home today and wanted to have appointment with the imaging assistant Try to persuade but he did not agree to stay any longer Discussed with the caregiver and the caregiver wanted to take him home too He has home health nurse visit as scheduled before He was discharged this afternoon and continue with the care as advised Total Time Total Time Spent Total Time Spent (In Minutes): 40 minutes Discharge Plan Discharge Items Patient Disposition: Home - Home Health Services Reason For Visit: SARAL WOUND, UTI, PVD Discharge Diagnosis: Complicated UTI, sacral decubitus, peripheral vascular disease with dry gangrene of the toes. Condition on Discharge: Fair Activity: Resume your previous activity Non-emergency contact: Primary Care Provider Call non-emergency contact if: you have any medication questions and your symptoms worsen Follow-up/Referrals: [facility] [Other] - 08/30/23 1:00 pm Vianey Matamoros MD [Primary Care Provider] - 08/28/23 11:00 am (Date & Time 08/28/2023 11:00 AM Provider Vianey Matamoros MD Department General Internal Medicine [facility] ) Diet: Carb Consistent or DM2 Addtl Attending Provider Instructions: Please take precautions to avoid falls Finish the course of antibiotic as advised Keep dressing your sacral wound as advised by the wound care Keep follow-up appointment with the wound care as an outpatient Please keep follow-up appointment with vascular surgery Please keep regular appointment with coagulation clinic to maintain your INR between 2-3 Pending Studies at Discharge: No Stand-Alone Forms: My [facility], Smoking Cessation Medications and DC Order Prescriptions: New cephalexin 500 mg capsule 500 mg PO QID 7 Days Qty: 28 0RF Continued midodrine 2.5 mg tablet 2.5 mg PO BID Rx Instructions: do not give last dose of day after 6PM or within 4 hrs of bedtime melatonin 5 mg capsule 5 mg PO HS nystatin 100,000 unit/gram powder 1 applic topical DAILY Qty: 60 2RF gabapentin 300 mg capsule 300 mg PO TID insulin glargine 100 unit/mL Solution 14 units SUBCUT DAILY magnesium oxide 400 mg (241.3 mg magnesium) Tablet 400 mg PO QAM metoprolol succinate 25 mg Tablet Extended Release 24 Hr 25 mg PO QAM loratadine 10 mg Tablet 10 mg PO QAM amiodarone 200 mg tablet 200 mg PO QAM zolpidem [Ambien] 5 mg tablet 5 mg PO QPM acetaminophen 325 mg Capsule 650 mg PO Q4 MDD 3g PRN (Reason: PAIN/FEVER) Rx Instructions: use for mild pain or temp=>100 lorazepam 0.5 mg Tablet 0.5 mg PO HS bisacodyl 10 mg Suppository 10 mg DE .EVERY 24 HOURS PRN (Reason: Constipation) mirtazapine [Remeron] 30 mg Tablet 30 mg PO HS calcium carbonate-vitamin D3 [Oyster Shell Calcium-Vit D3] 500 mg-5 mcg (200 unit) Tablet 1 tab PO QAM multivit,stress formula-zinc Tablet 1 tab PO DAILY warfarin 1 mg Tablet 1 mg PO 3XWK Rx Instructions: give 1 tablet at bedtime every MON,WED,FRI mometasone 0.1 % Solution 1 applic TOPICAL .EVERY 24 HOURS PRN (Reason: Itching) Rx Instructions: apply to affected area daily to back docusate sodium [Colace] 100 mg Capsule 100 mg PO BID furosemide 40 mg tablet 40 mg PO QAM clotrimazole-betamethasone 1-0.05 % cream 1 applic topical [facility] Rx Instructions: apply to sacrum twice a day oxycodone 5 mg tablet 5 mg PO Q12H PRN (Reason: mod-severe pain) ceramides 1,3,6-II Lotion 1 applic TOPICAL DAILY Rx Instructions: apply to b/l extremities warfarin 2 mg tablet 2 mg PO 4XWK Rx Instructions: give 2 mg at bedtime every E,,MON,SUN Ocuvite Adult 50 Plus 250 mg (90 mg-160 mg) Capsule 1 cap PO QAM methenamine hippurate 1 gram tablet 1 g PO DAILY potassium chloride 20 mEq tablet,ER particles/crystals 0 meq PO UD Rx Instructions: unable to verify 08/18/23 Discharge Orders: Discharge Order (Routine); Ordered 08/21/23 Ordered By: Ravi Reid/Other Patient Handouts: Nutrition for Wound Healing, Managing Type 2 Diabetes Admission Data Admit Date/Time: 08/18/23 20:29 Attending Provider: Ravi Orr Admit Provider: Maurice Cruz Primary Care Provider: Vianey Matamoros Other Providers: Maurice Cruz; Genaro Ulrich; Brendon Malloy; [place] Other Interventions: Discharge Summary Assessment (RN) Last Done: 08/21/23 13:50
== END 2023-08-21 16:22 | disposition home health service (06) | DRG 593 ==
LOC: ED 15:25 → 2S 20:29

== ENCOUNTER 2023-08-25 08:55 | Observation (INO) ==
--- NOTE | 2023-08-25 09:45 | History & Physical Bridge Note ---
Date of Service August 25, 2023 History & Physical Bridge Note I have examined the patient, reviewed the History & Physical and in the interval since the performance of the History & Physical I have noted the following changes of clinical significance: no changes noted
--- NOTE | 2023-08-25 09:46 | Pre Anesthesia Assessment ---
Date of Service August 25, 2023 Pre Sedation Assessment Cardiovascular + regular rate Respiratory + respiratory effort normal Pre-Sedation Airway Assessment Smoking Status: Never smoker Hx Sleep Apnea: No Hx Difficult Intubation: No Short, Thick Neck: No Thyromental Distance: < 3.5 Finger Breadths Oral Cavity: + Dental Abnormalities Mallampati Class: III ASA: ASA3 Procedure Planning Contraindications for Sedation: none Current Medications Reviewed: Yes Notes The planned sedation has been discussed with the patient. Informed Consent was obtained. I have identified the patient, determined the appropriateness of sedation and have assessed the patient immediately prior to the procedure. All medicine(s) and interventions are by my order.
[2023-08-25] MEDS: LIDOCAINE 1% LOCAL 20 ML VIAL ONE (13:12)
[2023-08-25] MEDS: niCARdipine HCL INJ 2.5 MG/ML 10 ML AMP ONE (13:13)
[2023-08-25] MEDS: NITROGLYCERIN/D5W 100MCG/ML 20ML SYR ONE (13:13)
[2023-08-25] MEDS: MIDAZOLAM HCL 5 MG/ML 1 ML VIAL ONE (13:35)
[2023-08-25] MEDS: HEPARIN (PORCINE) 1000 UNIT/ML 10 ML (CATH LAB USE ONLY) ONE (13:35)
[2023-08-25] MEDS: diphenhydrAMINE 50 MG/ML VIAL ONE (13:35)
[2023-08-25] MEDS: CLOPIDOGREL BISULFATE 300 MG TAB ONE (13:39)
[2023-08-25] MEDS: fentaNYL citrate PF 100 MCG/2 ML VIAL ONE (13:39)
[2023-08-25] MEDS ORDERED: ONDANSETRON INJ 2 MG/ML 2 ML VIAL IV PRN (14:26)
--- NOTE | 2023-08-25 14:32 | Post Anesthesia Assessment ---
Date of Service August 25, 2023 Post Sedation Assessment Vital Signs Temp Pulse Resp BP Pulse Ox O2 Del Method 08/25/23 14:23 60 14 128/61 97 Room Air 08/25/23 14:09 62 14 145/64 H 97 Room Air 08/25/23 09:30 98.4 F 60 18 117/57 L 97 Room Air Recovery Score Activity: Moves 4 extremities Respiration: Deep Breath/Cough Circulation: +/-20% PreAnes Value Consciousness: Fully Awake Oxygen Saturation: > 92% On Room Air Post Anesthesia Score: 10 Discharge Sedation Level of Care: Fast Track Phase II Post Sedation Plan On clinical assessment, the patient appears to have tolerated the sedation without complications. Patient is recovering as anticipated. Patient will continue to be monitored by nursing and may be discharged when sedation discharge criteria are met per below protocol. Upon Completions of procedure up to 15 minutes continue every 5 minute vital signs and the P.A.R. score; then discharge to a Phase I or Fast Track to Phase II per the following guidelines: * Discharge Patient to appropriate Phase II area if PAR is 8 or greater or return to pre- procedure baseline. The post - procedure orders will be as directed. * If PAR score is less than 8 or not return to pre-procedure baseline then patient will follow Phase I monitoring till PAR is reached for Phase II. The Phase I may be done in procedure room or may call to secure a Phase I area. * If naloxone or flumazenil are used for reversal, hold in Phase I for continued monitoring from when last reversal dose was given for a minimum of 60 minutes or longer pending the nurse and/or physician discretion of patient condition before discharge to Phase II. Please call the Sedation Physician to re-evaluate and complete post-note for discharge to Phase II area. Do NOT discharge from procedure sedation or Phase 1 until post- sedation evaluation note is complete by procedure /sedation MD Sedation Discharge Instructions to be given to the patient at discharge to home.
[2023-08-25] MEDS ORDERED: ACETAMINOPHEN 325 MG TAB PO PRN (14:48)
[2023-08-25] MEDS ORDERED: POLYETHYLENE (MIRALAX) 17 GM PACK PO PRN (14:48)
[2023-08-25] MEDS ORDERED: bisacodyL 10 MG SUPP PR PRN (14:55)
[2023-08-25] MEDS ORDERED: DEXTROSE 50% 50 ML SYRINGE IV PRN (15:02)
[2023-08-25] MEDS ORDERED: GLUCOSE 40% GEL 15 GM TUBE PO PRN (15:02)
[2023-08-25] MEDS ORDERED: CARBOHYDRATES FOR HYPOGLYCEMIA PO PRN (15:02)
[2023-08-25] MEDS ORDERED: GLUCOSE 10 TAB/TUBE PO PRN (15:02)
[2023-08-25] MEDS ORDERED: GLUCAGON FOR INJ 1 MG VIAL SQ PRN (15:02)
--- NOTE | 2023-08-25 15:21 | History & Physical Report ---
Date of Service August 25, 2023 Assessment & Plan (1) PAD (peripheral artery disease): Plan: s/p angioplasty today that was elective in an effort to avoid further amputations of lower extremities. Per Dr. Ulrich, will restart warfarin this afternoon and he will be starting on Plavix, also. Cont monitoring femoral area and activity restrictions per typical post procedure. He has a chronic terry catheter in place. He is typically bedridden per history above. We are just monitoring him overnight and will send home back to home health again in am. (2) Diabetic ulcer of toe of left foot: (3) Wound of sacral region: Plan: chronic, doesn't appear to be actively infected today. Notably this patient has a h/o pseudomonas in this wound from a culture last Feb. If infection were considered, or if he became ill, would start broad empiric abx with pseudomonas and ESBL coverage pending workup. (4) History of ESBL E. coli infection: Plan: contact isolation (5) UTI due to Klebsiella species: Plan: continues on cephalexin course for recent UTI. Pt states that he never felt any symptoms previously. No current symptoms. (6) Diabetes: Plan: chronic, stable. Cont insulin while hospitalized. (7) CKD (chronic kidney disease), stage III: Plan: chronic, stable. BMP in am. (8) Chronic systolic heart failure: Plan: chronic, stable. No evidence of acute heart failure. Cont medical management. (9) Atrial fibrillation: Plan: chronic, stable. Restart warfarin (recently held for procedure) and cont with amiodarone per home regimen. I spent a total [id number] coordinating, documenting, and providing care for this patient excluding time spent in the performance of separately billed services Full Code-confirmed with patient on admission. DVT prophy-warfarin Dispo- to home with HH after overnight observation post procedure. The patient was recently discharged from the hospital a few days ago and should have home health in place. [facility] History of Present Illness Chief Complaint: post procedure observation Primary Care Provider: Vianey Matamoros MD 88 yo M recently admitted to the hospital from 08/17-08/21 for treatment of infected sacral ulcers and a UTI. He went home with home health on cefdinir which he continues. 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 He now has recurrent ulcers involving the first through fourth digits. He has remained in a nonambulatory status since a fall wtih femoral fracture in Aprer notes. He has a h/o well controlled diabetes and nonischemic cardiomyopathy with last EF 45%. He has coronary artery disease with medically managed disease of PDA. He has a history of AV block s/p pacemaker placement. He has persistent atrial fibrillation on anticoagulation and daily amiodarone. Per record review, he had previously undergone a left endovascular intervention with stenting of his popliteal artery and angioplasty of his VASCULAR TECHNOLOGIST 01/2023. A recent outpatient arterial duplex showed reocclusion of popliteal stent and diminished toe pressures. The plan was for repeat angiogram with intervention today in an effort to avoid any further need for amputations. Post op he is feeling fine reporting chronic soreness in his sacrum. He denies chest pain, trouble breathing, fevers, chills or other concerning symptoms since discharge from the hospital a few days ago. Allergies Allergy/AdvReac Type Severity Reaction Status Date / Time ampicillin Allergy Intermediate Rash Verified 08/25/23 10:21 Macrolide Antibiotics Allergy Unknown PER Verified 08/25/23 10:21 MEDICAL RECORD sildenafil Allergy Unknown SWELLING Verified 08/25/23 10:21 OF FACE AND HEAD streptomycin Allergy Unknown N/V Verified 08/25/23 10:21 nitrofurantoin AdvReac Diarrhea Verified 08/25/23 10:21 VASODILATORS Allergy Unknown "PERIPHERAL Uncoded 08/16/23 13:54 DILATOR" swelling of face and head Home Medications Medication Instructions Recorded Confirmed Type amiodarone 200 mg tablet 200 mg PO QAM 01/02/18 08/25/23 History insulin glargine 100 unit/mL 14 units subcut DAILY 01/02/18 08/25/23 History subcutaneous solution loratadine 10 mg tablet 10 mg PO QAM 01/02/18 08/25/23 History magnesium oxide 400 mg (241.3 mg 400 mg PO QAM 01/02/18 08/25/23 History magnesium) tablet metoprolol succinate 25 mg 25 mg PO QAM 01/02/18 08/25/23 History tablet,extended release 24 hr gabapentin 300 mg capsule 300 mg PO TID 03/10/18 08/25/23 History docusate sodium 100 mg capsule 100 mg PO BID 04/27/22 08/25/23 History (Colace) mometasone 0.1 % topical solution 1 applic topical .EVERY 24 HOURS 04/27/22 08/25/23 History PRN Itching acetaminophen 325 mg capsule 650 mg PO Q4 PRN PAIN/FEVER 05/10/22 08/25/23 History bisacodyl 10 mg rectal suppository 10 mg MS .EVERY 24 HOURS PRN 12/01/22 08/25/23 History Constipation calcium carbonate 500 mg-vitamin 1 tab PO QAM 12/01/22 08/25/23 History D3 5 mcg (200 unit) tablet (Oyster Shell Calcium-Vitamin D3) lorazepam 0.5 mg tablet 0.5 mg PO HS 12/01/22 08/25/23 History mirtazapine 30 mg tablet (Remeron) 30 mg PO HS 12/01/22 08/25/23 History multivit,stress formula-zinc tablet 1 tab PO DAILY 12/01/22 08/25/23 History warfarin 1 mg tablet 1 mg PO 3XWK 12/01/22 08/25/23 History midodrine 2.5 mg tablet 2.5 mg PO BID 03/10/23 08/25/23 History zolpidem 5 mg tablet (Ambien) 5 mg PO QPM 03/10/23 08/25/23 History ceramides 1,3,6-II 1 applic topical DAILY 04/14/23 08/25/23 History clotrimazole-betamethasone 1 1 applic topical AMHS 04/14/23 08/25/23 History %-0.05 % topical cream furosemide 40 mg tablet 40 mg PO QAM 04/14/23 08/25/23 History [id number] 250 mg-dha 90 1 cap PO QAM 04/14/23 08/25/23 History mg-epa 160 vy-zkuh-zaxw-zeax capsule (Ocuvite Adult 50 Plus) oxycodone 5 mg tablet 5 mg PO Q12H PRN mod-severe pain 04/14/23 08/25/23 History warfarin 2 mg tablet 2 mg PO 4XWK 04/14/23 08/25/23 History melatonin 5 mg capsule 5 mg PO HS 06/15/23 08/25/23 History nystatin 100,000 unit/gram topical 1 applic topical DAILY #60 grams 06/21/23 08/25/23 Rx powder methenamine hippurate 1 gram tablet 1 g PO DAILY 08/18/23 08/25/23 History potassium chloride 20 mEq 20 meq PO DAILY 08/18/23 08/25/23 History tablet,extended release(part/cryst) cephalexin 500 mg capsule 500 mg PO QID 7 days #28 caps 08/21/23 08/25/23 Rx Past Med/Surg History Medical History Bacterial septicemia PVD (peripheral vascular disease) Terry catheter in place gets changed monthly Cerebrovascular disease Heart failure History of airway aspiration Ambulatory dysfunction History of hepatitis B Renal failure ? stage History of Mohs micrographic surgery for skin cancer History of prostate cancer PROSTATECTOMY History of melanoma HX MELANOMA, HX MULTIPLE SKIN CA & REMOVED Diabetic neuropathy History of colon cancer HX COLON SURGERY Chronic systolic CHF (congestive heart failure) Diabetes mellitus type 2 with complications Hypertension Pacemaker "DUAL" - PT NOT SURE BRAND, [facility] Atrial fibrillation Coronary artery disease Lumbar spinal stenosis Compression fracture of L4 lumbar vertebra HX BROKEN BACK Generalized OA Dyslipidemia Surgical History 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 History of anesthesia reaction WITH TESTICULAR SURGERY, [facility] - INCREASED BP & HAD TO STAY OVERNIGHT History of cardiac cath years ago> [facility] - CHECKING FOR BLOCKAGE - NO STENTS History of testicular surgery History of colonoscopy MULTIPLE History of tonsillectomy and adenoidectomy History of right hemicolectomy H/O prostatectomy Family History Mother Coronary heart disease Father Heart disease Social History Smoking Status: Never smoker Second Hand Exposure: No; Do You Dip or Chew Tobacco: No; Hx Alcohol Use: No Hx Substance Use: No Preferred Language: Mozambican Communication Ability: Effective Hearing Ability: Hard of Hearing Soap Worker Required: No Beliefs That Will Affect Care: None marital status: Single Current Living Situation: Alone 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 How many Children do You have: 0 Feels Safe at Home: Yes Safety Concerns: Feels Safe At This Time Diet: diabetic Diet Comment: Increased protein for healing per chart during the past year weight has: remained stable Assistive Devices: Glasses, Walker and Wheelchair Physical Exam Physical Exam: CONSTITUTIONAL: elderly, frail, vitals as above, generally well-appearing, NAD EYES: normal conjunctivae, no scleral icterus ENT: external ear and nose normal NECK: trachea midline RESPIRATORY: clear to auscultation bilaterally, no crackles, rales or wheezes, normal respiratory effort CARDIOVASCULAR: regular rate and rhythm, S1 and 2 heard without murmurs, gallops or rubs, no JVD, no peripheral edema CHEST: inspection of chest was normal GASTROINTESTINAL: soft, nontender, ND, no guarding MUSCULOSKELETAL: generalized weakness throughout, head is normocephalic and atraumatic SKIN: warm and dry, closed ulcerations on multiple toes at the tips. R femoral approach today with good palpable pulses and no post op seroma or other complications present. SACRUM: Stage III ulceration with some nonpurulent drainage and granulation tissue present. There is some surrounding erythema that appears to be an extension of pressure injury. No evidence of infection is present. There is no foul odor to the wound. Dressing was changed to Optifoam. NEUROLOGIC: No facial palsy, no dysarthria. CN 2-12 grossly intact, no sensory deficit, normal cognition, normal speech, no tremor PSYCHIATRIC: alert cooperative and oriented to person, place and time. Euthymic mood, makes good eye contact, language grossly intact, recent and remote memory grossly intact. Results & Data Results & Data Vital Signs (Past 12 Hours) Vital Signs Temp Pulse Resp BP Pulse Ox O2 Del Method 08/25/23 14:23 60 14 128/61 97 Room Air 08/25/23 14:09 62 14 145/64 H 97 Room Air 08/25/23 09:30 36.9 C 60 18 117/57 L 97 Room Air Laboratory Results [facility] 08/25/23 15:50 Creatinine 0.95 Medications Administered Current Inpatient Medications Acetaminophen (Acetaminophen 325 Mg Tab) 650 mg PO Q4H PRN PRN Reason: Pain or Fever Stop: 09/24/23 14:47 Amiodarone HCl (Amiodarone 200 Mg Tab) 200 mg PO QAM [facility] Stop: 09/25/23 08:59 Bisacodyl (Bisacodyl 10 Mg Supp) 10 mg MS DAILY PRN PRN Reason: Constipation Stop: 09/24/23 14:54 Calcium/Vitamin D (Calcium 600mg + Vit D 400 Iu Tab) [facility] Stop: 09/25/23 08:59 Cephalexin HCl (Cephalexin 500 Mg Cap) 500 mg PO QID [facility]; Protocol Stop: 09/01/23 16:59 Last Admin: 08/25/23 16:44 Dose: 500 mg Clopidogrel Bisulfate (Clopidogrel Bisulfate 75 Mg Tab) [facility] Stop: 09/25/23 08:59 Dextrose (Dextrose 50% 50 Ml Syringe) 25 - 50 ml IV UD PRN; Protocol PRN Reason: Hypoglycemia Protocol Stop: 09/24/23 15:01 Docusate Sodium (Docusate Sodium 100 Mg Cap) 100 mg PO BID [facility] Stop: 09/24/23 20:59 Furosemide (Furosemide 40 Mg Tab) [address] [facility] Stop: 09/25/23 08:59 Gabapentin (Gabapentin 300 Mg Cap) 300 mg PO TID [facility] Stop: 09/24/23 20:59 Glucagon (Glucagon For Inj 1 Mg Vial) 1 mg SQ UD PRN; Protocol PRN Reason: Hypoglycemia Protocol Stop: 09/24/23 15:01 Glucose (Glucose 40% Gel 15 Gm Tube) 15 - 30 gm PO UD PRN; Protocol PRN Reason: Hypoglycemia Protocol Stop: 09/24/23 15:01 Glucose (Glucose 10 Tab/Tube) 4 - 8 tab PO UD PRN; Protocol PRN Reason: Hypoglycemia Treatment Stop: 09/24/23 15:01 Sodium Chloride (Nss) 1,000 mls @ 100 mls/hr IV .Q10H [facility] Stop: 08/25/23 19:29 Last Admin: 08/25/23 16:43 Dose: 100 mls/hr Insulin Aspart (Insulin Aspart Per Unit Charge) 0 units SC ACHS [facility] Stop: 09/24/23 16:29 Last Admin: 08/25/23 17:45 Dose: 5 units Insulin Glargine (Lantus Per Unit Charge) 10 units SQ [facility] Stop: 09/24/23 20:59 Loratadine (Loratadine 10 Mg Tab) 10 mg PO QAM [facility] Stop: 09/25/23 08:59 Lorazepam (Lorazepam 0.5 Mg Tab) 0.5 mg PO [facility] Stop: 09/24/23 20:59 Magnesium Oxide (Magnesium Oxide 400 Mg Tab) 400 mg PO QAM [facility] Stop: 09/25/23 08:59 Metoprolol Succinate (Metoprolol Succ 25mg Ext Rel Tab) 25 mg PO QAM [facility] Stop: 09/25/23 08:59 Midodrine (Midodrine Hcl 2.5 Mg Tab) 2.5 mg PO BID [facility] Stop: 09/24/23 20:59 Mirtazapine (Mirtazapine Tab 15 Mg Tab) 30 mg PO HS [facility] Stop: 09/24/23 20:59 Miscellaneous (Carbohydrates For Hypoglycemia ) 15 - 30 gm PO UD PRN PRN Reason: Hypoglycemia Protocol Stop: 09/24/23 15:01 Multivitamins/Minerals (Cerovite Adv Formula Tab) 1 [facility] Stop: 09/25/23 08:59 Ondansetron HCl (Ondansetron Inj 2 Mg/Ml 2 Ml Vial) 4 mg IV Q6H PRN PRN Reason: Nausea And Vomiting Stop: 09/24/23 14:25 Polyethylene Glycol (Polyethylene (Miralax) 17 Gm Pack) 17 gm PO DAILY PRN PRN Reason: Constipation Stop: 09/24/23 14:47 Potassium Chloride (Potassium Chloride Crtab 20 Meq Tabcr) 20 meq PO DAILY [facility] Stop: 09/25/23 08:59 Warfarin Sodium (Warfarin Sod 1 Mg Tab) 1 mg PO [id number] [facility] Stop: 09/24/23 20:59 Warfarin Sodium (Warfarin Sod 2 Mg Tab) 2 mg PO [id number]@2100 [facility] Stop: 09/25/23 20:59 Zolpidem Tartrate (Zolpidem Tartrate 5 Mg Tab) 5 mg PO QPM PRN PRN Reason: insomnia Stop: 09/24/23 20:59 Code Status & VTE Plan VTE Prophylaxis Plan VTE Prophylaxis will be ordered: Yes (2) Diabetic ulcer of toe of left foot Diabetes mellitus type: type 2 Non-pressure ulcer stage: limited to breakdown of skin Qualified Code(s): E11.621 - Type 2 diabetes mellitus with foot ulcer; L97.521 - Non-pressure chronic ulcer of other part of left foot limited to breakdown of skin (9) Atrial fibrillation Atrial fibrillation type: unspecified Qualified Code(s): I48.91 - Unspecified atrial fibrillation
[2023-08-25] MEDS ORDERED: Nursing to Pharmacy Communication SCH (16:15)
[2023-08-25 16:40] LABS: INR 1.5 (0.9-1.1)
[2023-08-25] MEDS: SODIUM CHLORIDE 0.9% 1,000 ML IV SCH (16:43)
[2023-08-25] MEDS: cephALEXin 500 MG CAP PO SCH (16:44)
[2023-08-25 16:51] LABS: Creatinine Clr Calc Pharmacy 55.5 ml/min; Est GFR (African American) 82.5 ml/min; Est GFR (Non-African American) 71.2 ml/min
--- NOTE | 2023-08-25 17:14 | Post Operative Brief Note ---
PG Immediate Post Op with CF Date of Surgery August 25, 2023 Pre & Post Diagnosis Peripheral arterial disease I identified the patient and participated in the time-out.: Yes Procedure Operation Date: 08/25/23 10:00 Actual Procedures p Angio Extremity Unilateral - Genaro Ulrich MD s Fem Pop Balloon Atherectomy - MD linwood Díaz SC Select Cath Place 3rd Order - MD linwood Díaz Ultrasound Vascular Access - Genaro Ulrich MD Surgeon Genaro Ulrich MD Home Health Registered Nurse Magazine Grinder Loader Estimated Blood Loss 20 Findings See Below Left 100% popliteal stent occlusion with reconstitution just prior to takeoff of LULY Left 100% proximal LULY occlusion. 100% proximal GPS FIELD DATA COLLECTOR occlusion Left peroneal patent with 60% ostial stenosis then widely patent to the foot. Gives off collaterals to DPA/GPS FIELD DATA COLLECTOR Successful intervention to left popliteal occlusion with Rotarex atherectomy and 2 drug-eluting balloons extending into peroneal artery Final result: Direct flow to the foot via patent popliteal and peroneal artery. Complications none Disposition Accompanied Patient To Recovery: Yes Disposition: PCU
[2023-08-25] MEDS: INSULIN ASPART PER UNIT CHARGE SC SCH (17:45)
[2023-08-25] MEDS: WARFARIN SOD 1 MG TAB PO SCH (20:48)
[2023-08-25] MEDS: ZOLPIDEM TARTRATE 5 MG TAB PO PRN (20:48)
[2023-08-25] MEDS: MIDODRINE HCL 2.5 MG TAB PO SCH (20:48)
[2023-08-25] MEDS: LORazepam 0.5 MG TAB PO SCH (20:48)
[2023-08-25] MEDS: GABAPENTIN 300 MG CAP PO SCH (20:49)
[2023-08-25] MEDS: MIRTAZAPINE TAB 15 MG TAB PO SCH (20:49)
[2023-08-25] MEDS: DOCUSATE SODIUM 100 MG CAP PO SCH (20:49)
[2023-08-25] MEDS: LANTUS PER UNIT CHARGE SQ SCH (20:49)
--- NOTE | 2023-08-25 22:23 | Endovascular Procedure Note ---
PG Endovascular Procedure Rpt Pre & Post Diagnosis Peripheral arterial disease I identified the patient and participated in the time-out.: Yes Procedure Operation Date: 08/25/23 10:00 Actual Procedures p Angio Extremity Unilateral - MD linwood Díaz Fem Pop Balloon Atherectomy - MD linwood Díaz SC Select Cath Place 3rd Order - MD linwood Díaz Ultrasound Vascular Access - Genaro Ulrich MD Surgeon Genaro Ulrich MD Deep Fat Cook Fry Supervisor Hairspring Fabrication Estimated Blood Loss 20 Findings See Below Abdominal aorta--calcified, no significant aneurysmal or stenotic disease Right lower extremity-- -Common iliaccalcified, no significant disease -External iliaccalcified, no significant disease -CFAno significant disease Left lower extremity-- -Common iliaccalcified, 20% ostial -External iliacwidely patent -Internal iliacwidely patent -CERTIFIED PHYSICIAN'S ASSISTANT, profunda widely patent -SFAcalcified, mild to moderate diffuse disease, 40% in distal segment -Poplitealstent patent until latemid segment in-stent occlusion with reconstitution just before takeoff of LULY. TPT--30% disease -ATAdiffuse proximal disease up to 90%. 100% mid occlusion. -PTAcalcified, 100% proximal occlusion. -[id number]% ostial, remainder of vessel widely patent and gives off collaterals to small DPA, plantar artery -DPA small caliber, diffuse disease tapers and midfoot. Small diffusely diseased plantar arteries partially fills via collaterals Anesthesia Type RN Sedation Radiation Exposure (mGv) Radiation (mGy): 129 Contrast Contrast: 50 Complications none Disposition Accompanied Patient To Recovery: Yes Disposition: PCU Description of Procedure Right CERTIFIED PHYSICIAN'S ASSISTANT access obtained under ultrasound guidance, short 5Fr sheath placed Abdominal aortogram and proximal left lower extremity angiogram performed with RIM catheter. Selective angiography with quick cross catheter placed in mid SFA. 6 Fr 65 cm destination sheath placed from right CERTIFIED PHYSICIAN'S ASSISTANT to mid left SFA. Left popliteal in-stent occlusion crossed with quick cross catheter and glide advantage wire 0.35 wire exchanged for 0.18 rotarex wire placed into peroneal. Rotarex atherectomy catheter placed to popliteal artery - 3 passes completed across occluded segment Post atherectomy showed re-established flow with severe residual stenosis in distal non-stented popliteal segment and distal aspect of stent Angioplasty of popliteal across ostial peroneal stenosis with 4.0x100 Lutonix balloon In-stent popliteal disease treated with 6.0x60 Lutonix drug-eluting balloon Popliteal/TPT treated with Lutonix drug-eluting balloon 4 x 100 IA vasodilators administered for spasm. Post procedure good angiographic result. Minimal residual in-stent stenosis. Distal popliteal into peroneal expended well without evidence of dissection. Contrast used: 50 Moderate sedation: [id number] Access closure: Angioseal Summary: 1. Left lower extremity --Mild-moderate diffuse SFA disease. 100% late-mid in- stent popliteal occlusion with reconstitution in distal popliteal. Single vessel runoff to the ankle via peroneal. 100% mid LULY occlusion. 100% proximal ORACLE WMS CONSULTANT. Small diffusely diseased DPA, plantar arteries partially fill via collaterals. 2. Right lower extremity --widely patent iliacs, CERTIFIED PHYSICIAN'S ASSISTANT. 3. Successful atherectomy (rotarex) and angioplasty with drug-eluting balloon (Lutonix 6.0) of left popliteal artery in-stent occlusion. 4. Successful angioplasty of distal popliteal, TPT and proximal peroneal with drug-eluting balloon (Lutonix 4.0). Final result: Improved direct inline flow to the foot via peroneal. Residual severe diffuse pedal vessel disease. Recommendations: Reviewed with clopidogrel in Beadworker. Continue for 1 month. Resume anticoagulation with Coumadin Follow-up non-invasive vascular testing in 2 weeks. I attest to the content of the Intraoperative Record and any orders documented therein. Any exceptions are noted below. Vascular Charges Angiography/Venography Procedure 1: Angiography/Venography charges: [id number] Initial 3rd order or selective abd, pelvic, or LE branch Lower Extremity Interventions Procedure 1: Lower Extremity Intervention charges: [id number] Atherectomy, femoral, popliteal artery(s), unilateral Procedure 2: Lower Extremity Intervention charges: [id number] Angioplasty, tibial, peroneal artery, unilateral, initial vessel Additional Services Procedure 1: Additional Services Charges: [id number] Ultrasound guidance - vascular access Procedure 2: Additional Services Charges: 92269 Moderate sedation initial 15 min Procedure 3: Additional Services Charges: 93048 Moderate sedation, each additional 15 min
[2023-08-26] MEDS: MELATONIN 3 MG TAB PO PRN (00:25)
[2023-08-26] MEDS: ADVANCED PROBIOTIC 625 MG CAPSULE PO SCH (00:25)
[2023-08-26 06:32] LABS: Hematocrit (blood only) 34.4 % (42.0-52.0); Hemoglobin 11.7 g/dl (14.0-18.0); Mean Corpuscular Hemoglobin 29.3 pg (25.0-34.0); Mean Corpuscular Volume 86.2 fL (80.0-100.0); Mean Platelet Volume 9.6 fL (9.4-12.4); Platelet Count 226 K/uL (130-400); RDW Coefficient of Variation 15.8 % (11.5-14.5); RDW Standard Deviation 49.6 fL (36.4-46.3); Red Blood Count 3.99 M/uL (4.70-6.10); White Blood Count 8.86 K/ul (4.8-10.8)
[2023-08-26 06:52] LABS: INR 1.4 (0.9-1.1); Prothrombin Time 14.5 Seconds (9.0-12.0)
[2023-08-26 07:07] LABS: BUN Creatinine Ratio 19.3 (10-20); Calcium 7.6 mg/dl (8.6-10.3); Creatinine Clr Calc Pharmacy 48.4 ml/min; Est GFR (African American) 69.9 ml/min; Est GFR (Non-African American) 60.3 ml/min; Potassium 3.7 mmol/L (3.5-5.1)
[2023-08-26] MEDS: WARFARIN SOD 1 MG TAB PO STA (08:27)
[2023-08-26] MEDS: FUROSEMIDE 40 MG TAB PO SCH (08:28)
[2023-08-26] MEDS: CALCIUM 600MG + VIT D 400 IU TAB PO SCH (08:28)
[2023-08-26] MEDS: CEROVITE ADV FORMULA TAB PO SCH (08:28)
[2023-08-26] MEDS: METOPROLOL SUCC 25MG EXT REL TAB PO SCH (08:28)
[2023-08-26] MEDS: CLOPIDOGREL BISULFATE 75 MG TAB PO SCH (08:28)
[2023-08-26] MEDS: LORATADINE 10 MG TAB PO SCH (08:29)
[2023-08-26] MEDS: AMIODARONE 200 MG TAB PO SCH (08:29)
[2023-08-26] MEDS: POTASSIUM CHLORIDE CRTAB 20 MEQ TABCR PO SCH (08:29)
[2023-08-26] MEDS: MAGNESIUM OXIDE 400 MG TAB PO SCH (08:29)
--- NOTE | 2023-08-26 12:28 | Discharge Summary ---
Date of Service August 26, 2023 Admission HPI Per Admitting Provider 88 yo M recently admitted to the hospital from 08/17-08/21 for treatment of infected sacral ulcers and a UTI. He went home with home health on cefdinir which he continues. 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 He now has recurrent ulcers involving the first through fourth digits. He has remained in a nonambulatory status since a fall wtih femoral fracture in Aprer notes. He has a h/o well controlled diabetes and nonischemic cardiomyopathy with last EF 45%. He has coronary artery disease with medically managed disease of PDA. He has a history of AV block s/p pacemaker placement. He has persistent atrial fibrillation on anticoagulation and daily amiodarone. Per record review, he had previously undergone a left endovascular intervention with stenting of his popliteal artery and angioplasty of his DIP BRAZIER 01/2023. A recent outpatient arterial duplex showed reocclusion of popliteal stent and diminished toe pressures. The plan was for repeat angiogram with intervention today in an effort to avoid any further need for amputations. Post op he is feeling fine reporting chronic soreness in his sacrum. He denies chest pain, trouble breathing, fevers, chills or other concerning symptoms since discharge from the hospital a few days ago. Admission Exam Per Admitting Provider CONSTITUTIONAL: elderly, frail, vitals as above, generally well-appearing, NAD EYES: normal conjunctivae, no scleral icterus ENT: external ear and nose normal NECK: trachea midline RESPIRATORY: clear to auscultation bilaterally, no crackles, rales or wheezes, normal respiratory effort CARDIOVASCULAR: regular rate and rhythm, S1 and 2 heard without murmurs, gallops or rubs, no JVD, no peripheral edema CHEST: inspection of chest was normal GASTROINTESTINAL: soft, nontender, ND, no guarding MUSCULOSKELETAL: generalized weakness throughout, head is normocephalic and atraumatic SKIN: warm and dry, closed ulcerations on multiple toes at the tips. R femoral approach today with good palpable pulses and no post op seroma or other c omplications present. SACRUM: Stage III ulceration with some nonpurulent drainage and granulation tissue present. There is some surrounding erythema that appears to be an extension of pressure injury. No evidence of infection is present. There is no foul odor to the wound. Dressing was changed to Optifoam. NEUROLOGIC: No facial palsy, no dysarthria. CN 2-12 grossly intact, no sensory deficit, normal cognition, normal speech, no tremor PSYCHIATRIC: alert cooperative and oriented to person, place and time. Euthymic mood, makes good eye contact, language grossly intact, recent and robbie te memory grossly intact. Principal Diagnosis PAD s/p elective angoiplasty UTI On antibiotic course Discharge Exam CONSTITUTIONAL: elderly, frail, vitals as above, generally well-appearing, NAD EYES: normal conjunctivae, no scleral icterus ENT: external ear and nose normal NECK: trachea midline RESPIRATORY: clear to auscultation bilaterally, no crackles, rales or wheezes, normal respiratory effort CARDIOVASCULAR: regular rate and rhythm, S1 and 2 heard without murmurs, gallops or rubs, no JVD, no peripheral edema CHEST: inspection of chest was normal GASTROINTESTINAL: soft, nontender, ND, no guarding MUSCULOSKELETAL: generalized weakness throughout, head is normocephalic and atraumatic SKIN: warm and dry, closed ulcerations on multiple toes at the tips. R femoral approach for stent was noted - good palpable pulses and no post op seroma or other complications present. SACRUM: Stage III ulceration with some nonpurulent drainage and granulation tissue present. There is some surrounding erythema that appears to be an extension of pressure injury. No evidence of infection is present. There is no foul odor to the wound. NEUROLOGIC: No facial palsy, no dysarthria. CN 2-12 grossly intact, no sensory deficit, normal cognition, normal speech, no tremor PSYCHIATRIC: alert cooperative and oriented to person, place and time. Euthymic mood, makes good eye contact, language grossly intact, recent and remote memory grossly intact. Discharge Data Allergies Allergy/AdvReac Type Severity Reaction Status Date / Time ampicillin Allergy Intermediate Rash Verified 08/25/23 10:21 Macrolide Antibiotics Allergy Unknown PER Verified 08/25/23 10:21 MEDICAL RECORD sildenafil Allergy Unknown SWELLING Verified 08/25/23 10:21 OF FACE AND HEAD streptomycin Allergy Unknown N/V Verified 08/25/23 10:21 nitrofurantoin AdvReac Diarrhea Verified 08/25/23 10:21 VASODILATORS Allergy Unknown "PERIPHERAL Uncoded 08/16/23 13:54 DILATOR" swelling of face and head Procedures Performed Operation Date: 08/25/23 10:00 Actual Procedures p Angio Extremity Unilateral - MD linwood Díaz Fem Pop Balloon Atherectomy - MD linwood Díaz SC Select Cath Place 3rd Order - MD linwood Díaz Ultrasound Vascular Access - Genaro Ulrich MD Ordered Studies 08/25/23 07:02 CL Cath Imgs for PACS use only Routine Hospital Course (1) PAD (peripheral artery disease): Per prior attending w/ addendum: s/p angioplasty today that was elective in an effort to avoid further amputations of lower extremities. Per Dr. Ulrich, will restart warfarin this afternoon and he will be starting on Plavix, also. Cont monitoring femoral area and activity restrictions per typical post procedure. He has a chronic terry catheter in place. He is typically bedridden per history above. We are just monitoring him overnight and will send home back to home health again in am. (2) Diabetic ulcer of toe of left foot: (3) Wound of sacral region: chronic, doesn't appear to be actively infected today. Notably this patient has a h/o pseudomonas in this wound from a culture last Feb. If infection were considered, or if he became ill, would start broad empiric abx with pseudomonas and ESBL coverage pending workup. (4) History of ESBL E. coli infection: contact isolation (5) UTI due to Klebsiella species: continues on cephalexin course for recent UTI. Pt states that he never felt any symptoms previously. No current symptoms. (6) Diabetes: chronic, stable. Cont insulin while hospitalized. (7) CKD (chronic kidney disease), stage III: chronic, stable. BMP in am. (8) Chronic systolic heart failure: chronic, stable. No evidence of acute heart failure. Cont medical management. (9) Atrial fibrillation: chronic, stable. Restart warfarin (recently held for procedure) and cont with amiodarone per home regimen. Full Code-confirmed with patient on admission. DVT prophy-warfarin Dispo- to home with HH after overnight observation post procedure. The patient was recently discharged from the hospital a few days ago and should have home health in place. Plan Addendum 08/26/2023: Patient was seen and examined at bedside as a follow-up of PAD status post elective angioplasty/RotaRex atherectomy/stenting of LLE PAD. Patient hemodynamically stable, reports to be at his baseline, denies any new complaints, entry site with no fluctuation/collection to suggest hematoma. Dressing was clean and dry. No increased pain. Patient would like to go home. D/w vascular, will dc him on prior dose of warfarin. He is being discharged with following instruction at the point of discharge: Follow-up with your primary care physician within a week time and likely you will need labs CBC/CMP/magnesium/phosphorus. You were started on Plavix, do not take omeprazole while on Plavix. Follow-up with vascular surgery in about 2 weeks time. Continue with the home health. Complete your antibiotic course for your UTI as per prior recommendation. Your home dose of Coumadin was restarted / evening, continue to take Coumadin daily as per prior recommendation. You were given additional dose 08/25 morning. You will need to take your today's evening dose as usual. Follow-up with Coumadin clinic on Monday. If you have increasing swelling/blood oozing out/pain at your right groin area [at the site of entry for stent placement], communicate with your vascular surgery office or emergency immediately. Take your medications as prescribed. Please make sure that you are able to get your medications today by calling your pharmacy before you leave the hospital so that your treatment continuity is not broken. Home Health Attestation I certify that this patient is under my care and that I, or a physicians syrup mixer assistant working with me, had a face to-face encounter that meets the home health [id number] encounter requirements with this patient. The encounter with the patient was in whole, or in part, for the following medical condition, which is the primary reason for home health care (list medical condition): I certify that, based on my findings, the following services are medically necessary home health services: My clinical findings support the need for the above services because: Further, I certify that my clinical findings support that this patient is homebound (i.e. absences from home require considerable and taxing effort and are for medical reasons or synagogue services or infrequently or of short duration when for other reasons) because: Certification for Home Health Services: Based on the above findings, I certify that this patient is confined to the home and needs intermittent detention care, physical therapy and/or speech therapy or continues to need occupational therapy. The patient is under my care, and I have initiated the establishment of the plan of care. This patient will be followed by a physician who will periodically review the plan of care. Total Time Total Time Spent Total Time Spent (In Minutes): 45 Discharge Plan Discharge Items Patient Disposition: Home - Home Health Services Reason For Visit: Peripheral Artery Disease Discharge Diagnosis: PAD s/p elective angoiplasty UTI On antibiotic course Activity: Resume your previous activity Non-emergency contact: Primary Care Provider Call non-emergency contact if: you have any medication questions, your symptoms worsen and your temperature is above 101.5 Follow-up/Referrals: Vianey Matamoros MD [Primary Care Provider] - Diet: Carb Consistent or DM2 and Heart Healthy Diet Texture: Easy to Chew Addtl Attending Provider Instructions: Follow-up with your primary care physician within a week time and likely you will need labs CBC/CMP/magnesium/phosphorus. You were started on Plavix, do not take omeprazole while on Plavix. Follow-up with vascular surgery in about 2 weeks time. Continue with the home health. Your home dose of Coumadin was restarted 5/3 evening, continue to take Coumadin daily as per prior recommendation. You were given additional dose 5/ morning. You will need to take your today's evening dose as usual. Follow-up with Coumadin clinic on Monday. If you have increasing swelling/blood oozing out/pain at your right groin area [at the site of entry for stent placement], communicate with your vascular surgery office or emergency immediately. Take your medications as prescribed. Please make sure that you are able to get your medications today by calling your pharmacy before you leave the hospital so that your treatment continuity is not broken. Pending Studies at Discharge: No Stand-Alone Forms: My [facility], Smoking Cessation Medications and DC Order Prescriptions: New clopidogrel 75 mg Tablet 75 mg PO QAM Qty: 30 0RF Advanced Probiotic 625 mg (10 billion cell) Capsule 1 cap PO DAILY 14 Days Qty: 14 0RF Continued midodrine 2.5 mg tablet 2.5 mg PO BID Rx Instructions: do not give last dose of day after 6PM or within 4 hrs of bedtime melatonin 5 mg capsule 5 mg PO HS nystatin 100,000 unit/gram powder 1 applic topical DAILY Qty: 60 2RF gabapentin 300 mg capsule 300 mg PO TID insulin glargine 100 unit/mL Solution 14 units SUBCUT DAILY magnesium oxide 400 mg (241.3 mg magnesium) Tablet 400 mg PO QAM metoprolol succinate 25 mg Tablet Extended Release 24 Hr 25 mg PO QAM loratadine 10 mg Tablet 10 mg PO QAM amiodarone 200 mg tablet 200 mg PO QAM zolpidem [Ambien] 5 mg tablet 5 mg PO QPM acetaminophen 325 mg Capsule 650 mg PO Q4 MDD 3g PRN (Reason: PAIN/FEVER) Rx Instructions: use for mild pain or temp=>100 lorazepam 0.5 mg Tablet 0.5 mg PO HS bisacodyl 10 mg Suppository 10 mg ME .EVERY 24 HOURS PRN (Reason: Constipation) mirtazapine [Remeron] 30 mg Tablet 30 mg PO HS calcium carbonate-vitamin D3 [Oyster Shell Calcium-Vit D3] 500 mg-5 mcg (200 unit) Tablet 1 tab PO QAM multivit,stress formula-zinc Tablet 1 tab PO DAILY warfarin 1 mg Tablet 1 mg PO 3XWK Rx Instructions: give 1 tablet at bedtime every MON,WED,FRI mometasone 0.1 % Solution 1 applic TOPICAL .EVERY 24 HOURS PRN (Reason: Itching) Rx Instructions: apply to affected area daily to back docusate sodium [Colace] 100 mg Capsule 100 mg PO BID furosemide 40 mg tablet 40 mg PO QAM clotrimazole-betamethasone 1-0.05 % cream 1 applic topical [facility] Rx Instructions: apply to sacrum twice a day oxycodone 5 mg tablet 5 mg PO Q12H PRN (Reason: mod-severe pain) ceramides 1,3,6-II Lotion 1 applic TOPICAL DAILY Rx Instructions: apply to b/l extremities warfarin 2 mg tablet 2 mg PO 4XWK Rx Instructions: give 2 mg at bedtime every E,,SAT,SUN Ocuvite Adult 50 Plus 250 mg (90 mg-160 mg) Capsule 1 cap PO QAM methenamine hippurate 1 gram tablet 1 g PO DAILY potassium chloride 20 mEq tablet,ER particles/crystals 20 meq PO DAILY Rx Instructions: unable to verify 08/18/23 cephalexin 500 mg capsule 500 mg PO QID 7 Days Qty: 28 0RF Admission Data Admit Date/Time: 08/25/23 14:25 Attending Provider: Della Maldonado Admit Provider: Genaro Ulrich Primary Care Provider: Vianey Matamoros
[2023-08-26] MEDS ORDERED: WARFARIN SOD 2 MG TAB PO SCH (21:00)
--- OUTSIDE RECORDS SUMMARY | 2023-08-27 08:57 | External Medical Summary | Summary of Care ---
Author Name Unknown Organization [facility] Address [address] [place] [address] Phone [phone] Care Team Providers Care Library Sales Consultant Name Role Phone Freedom Mendez MD Primary Care Provider [phone] Reason for Visit * Reason Comments Follow Up Pt has dry patches o n the back of his scalp and neck- reports itching x1 year * Evaluate & Treat - Unlimited Visits (Within 10 days (routine)) - Pending Review Specialty Diagnoses / Procedures Referred By Cary nieto Referred To Contact Dermatology Diagnoses Pruritus Freedom Mendez MD [address] [place] [address] Referral ID Status Reason Start Date Expiration Date Visits Requested Visits Authorized [id number] Pending Review Specialty Services Required 06/14/[phone] Encounter Details Date Type Department Care Team (Late st Contact Info) Description 08/21/2023 3:00 PM EDT Office Visit Dermatology [facility] [address] [facility] [place] [address] Kevin Peguero MD [address] [facility] [place] [place] [address] Seborrheic dermatitis of scalp*; Skin neoplasm Allergies Active Allergy Reactions Criticality Noted Date Comments Ampicillin Rash Medium 02/28/2023 Losartan Potassium Flushing Low 01/06/2010 Environmental 07/22/2002 Hayfever, dust, mold Macrolides And Ketolides 11/27/2017 Nitrofurantoin Diarrhea,Nausea/vomi t ing 04/27/2022 Sildenafil 11/27/2017 Streptomycin 11/27/2017 Sulfites 12/05/2009 Sulfur Anaphylaxis High 08/21/2023 Sulfur trioxide Vasopressin 11/27/2017 documented as of this encounter (statuses as of 08/22/2023) Medications Medication Sig Dispensed Refills Start Date [...] 400 MG TabletIndications:H eart failure, etiology unknown ([facility]) Take 1 Tab by mouth daily. 30 [...] hemoglobin A1c goal of less than 8.0% ([facility]) Use once daily with Lantus 90 Each 1 3 Active Furosemide 40 MG Oral Tablet (Lasix)Indications: Heart failure, systolic, due to CAD ([facility]) Take 1 Tablet by mouth in the morning. 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 15 mL 3 4 Active OneTouch Ultra In Vitro Strip (Glucose Blood)Indications:T ype 2 diabetes mellitus with hemoglobin A1c goal of less than 8.0% ([facility]) TEST 2 TIMES A DAY DIRECTED 200 [...] for Sleep. 30 Tablet 0 4 Active Ketoconazole 2 % External Shampoo (Nizoral)Indication s:Seborrheic dermatitis of scalp Lather into scalp. Leave in for 5 minutes, then rinse. Do this 2-3 times per week 120 mL 5 4 Active Clobetasol Propionate 0.05 % External SolutionIndications :Seborrheic dermatitis of scalp Apply several drops to scalp once daily 50 mL 5 4 Active documented as of this encounter (statuses as of 08/22/2023) Active Problems Problem Noted Date Diagnosed Date Pressure injury of left heel, stage 2 04/27/2023 Atherosclerosis of galena ar teries of left leg with ulceration [...] as of this encounter (statuses as of 08/22/2023) Resolved Problems Problem Noted Date Diagnosed Date Resolved Date Osteomyelitis of fifth toe of left foot 03/02/2023 04/27/2023 Decubitus ulcer of left heel, stage 4 09/22/2022 03/02/2023 Atherosclerosis of galena artery of extremity 07/01/19 23 04/27/2023 Chronic [...] arachnoid cyst. 3. Left sinus disease. 07/28 [facility] [place]: MRI of brain with and [...] neuroma Will recommend an ENT appointment with [facility] [place]. Ponce Stress ECHO 2003- negative for dobutamine induced ischemic EKG or [...] 01/02/2002 05/08/2017 Overview: Dr Jones Alcohol dependence Overview: ICD-10 update of inactive term HYPERTENSION [...] as of this encounter (statuses as of 08/22/2023) Immunizations Name Administration Dates Next Due COVID-19 mRNA, LNP-s, No Pre serve, 2-Dose Series ([employer]) 02/19/2021,07/03/2020,06/10/2020 COVID-19, LNP-s, No Preserve , Fawad-sucrose, Ages 12+ ([employer]) 07/03/2020,06/10/2020 Covid-19, Mrna, Lnp-s, Pf, B ivalent, [...] as of this encounter Progress Notes * Kevin Peguero MD - 08/21/2023 2:59 PM EDT SUBJECTIVE: Chief Complaint: Chief Complaint Patient presents with Follow Up Pt has dry patches on the back of his scalp and neck- reports itching x1 year HPI: Sujit Thayer is a 88 year old male seen for rash in scalp. Going on for about a year. Itchy. Has been in hospital for past week. Doesn't feel that Tsal helps. Has been using hot compresses which seems to help somewhat Guide Setter Hisotry of MIS and NMSC Here with personal service workers Washing hair 2-3 times per week OBJECTIVE: GEN: Elderly, in wheel chair but alert, no distress, appears oriented, pleasant, and cooperative SKIN: Problem focused exam reveals: Throughout scalp and extending onto forehead are large greasy non-adherent flakes Right mu-ism - crusted pink scar-like papule ASSESSMENT/PLAN: Seborrheic dermatitis - start ketoconazole shampoo 2-3 times per week - clobetasol soln daily to scalp Skin neoplasm - discussed biopsy vs monitoring. Patient just out of the hospital, will delay any biopsy Will see back in 2-3 months for f/u and skin check at that time Kevin Peguero MD Ref: FREEDOM MENDEZ[[id number]] [address] [facility] [place] [address] (office) [phone] (fax) PCP: FREEDOM MENDEZ [address] [place] [address] [phone] documented in this encounter Nursing Notes * Mckenzie Morelos LPN - 08/21/2023 2:52 PM EDT Patient identified by name and date of . Do you have any concerns about pain management for today's visit? No Living Will or Advance Directive for Health Care as noted on problem list. [facility] is a way you can talk to your provider online through e-mail. Would you like to sign up? I can activate it for you? ALREADY ACTIVE Chief Complaint Patient presents with Follow Up Pt has dry patches on the back of his scalp and neck- reports itching x1 year documented in this encounter Plan of Treatment Upcoming Encounters Date Type Department Care Team (Late st Contact Info) Description 08/29/2023 11:00 AM EDT Office Visit General Internal Medicine [facility] [place] [address] [place] [address] Freedom Mendez MD [address] [place] [address] 08/31/2023 7:00 AM EDT Laboratory Lab Mobile Phlebotomy [facility] [address] [place] [address] [facility] Draw [address] [place] [address] 09/01/2023 6:00 AM EDT Anticoagulation Pharmacy Call Center [phone] [place] [address] [facility], [facility] [address] [facility] [place] [address] 09/04/2023 1:40 PM EDT Office Visit General Internal Medicine [facility] [place] [address] [facility] [place] [address] Freedom Mendez MD [address] [facility] [place] [address] 10/05/2023 1:15 PM EDT Office Visit Hematology/Oncology [facility] [place] [address] [facility] [place] [phone] Bethel Eng MD [address] [facility] [place] [address] Scheduled Procedures Name Priority Associated Diagnoses Date/Ti [...] 06/29/2023, 03/24, 03/30/2023, Additional history exists CKD PHOS USE SMARTSET 77071 06/28/2024 03/0 10/2023, 05/20/2022, 02/05/2021, Additional history exists CKD HGB USE SMARTSET 53147 08/21/202408/21, 06/29/2023, 05/12/2023, Additional history exists Colonoscopy 05/13/2025 05/13/2022, 0705/2018, 07/18/2017 DTaP,Tdap,and Td Vaccines (3 - Td [...] as of this encounter Visit Diagnoses Diagnosis Seborrheic dermatitis of scalp- Primary Other seborrheic dermatitis Skin neoplasm Neoplasm of unspecified nature of bone, soft tissue, and skin documented in this encounter Care Teams Library Sales Consultant Relationship Specialty Start Date End Date Freedom Mendez MD [address] [facility] [place] [address] PCP - General Internal Medicine 01/11/21 documented as of this encounter
--- OUTSIDE RECORDS SUMMARY | 2023-08-27 08:57 | External Medical Summary ---
Author Name UNSPECIFIED Address Unknown Organization [facility] History of Encounters Reason for Assessment: Transferred to an inpatient facility - patient not discharged from agency Inpatient Facility where the patient been admitted: Hospital
--- OUTSIDE RECORDS SUMMARY | 2023-08-27 08:58 | External Medical Summary | Summary of Care ---
Author Name Unknown Organization [facility] Address [address] [place] [address] Phone [phone] Care Team Providers Care On Air Director Name Role Phone Vianey Matamoros MD Primary Care Provider [phone] Encounter Details Date Type Department Care Team (Late st Contact Info) Description 08/21/2023 Orders Only Lab Mobile Phlebotomy [facility] [address] [place] [address] Genaro Ulrich MD [address] [place] [address] Peripheral vascular disease (HCC)*; Pre-procedural laboratory examination Allergies Active Allergy Reactions Criticality Noted Date Comments Ampicillin Rash Medium 02/28/2023 Losartan Potassium Flushing Low 01/06/2010 Environmental 07/22/2002 Hayfever, dust, mold Macrolides And Ketolides 11/27/2017 Nitrofurantoin Diarrhea,Nausea/vom iting 04/27/2022 Sildenafil 11/27/2017 Streptomycin 11/27/2017 Sulfites 12/05/2009 Vasopressin 11/27/2017 documented as of this encounter (statuses as of 08/21/2023) Medications Medication Sig Dispensed Refills Start Date [...] hemoglobin A1c goal of less than 8.0% ([facility]) Use once daily with Lantus 90 Each [...] hemoglobin A1c goal of less than 8.0% ([facility]) Inject 16 Units under the skin in the morning. 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 3. Left sinus disease. [place] [facility] [place] of [...] neuroma Will recommend an ENT appointment [place] [facility] [place] Ponce Stress [...] as of this encounter (statuses as of 08/21/2023) Immunizations Name Administration Dates Next Due COVID-19 mRNA, LNP-s, No Pre serve, 2-Dose Series ([employer]) 02/19/2021,07/03/2020,06/10/2020 COVID-19, LNP-s, No Preserve , Fawad-sucrose, [...] on file documented as of this encounter Plan of Treatment Upcoming Encounters Date Type Department Care Team (Late st Contact Info) Description 08/21/2023 3:00 PM EDT Office Visit Dermatology [place] [address] [place] [address] Kevin Peguero MD [address] [address] 08/22/2023 7:00 AM EDT Laboratory Lab Mobile Phlebotomy [facility] [address] [place] [place] [address] [facility] [address] [place] [address] 08/31/2023 7:00 AM EDT Laboratory Lab Mobile Phlebotomy [facility] [address] [place] [address] [facility] [address] [place] [place] [address] 09/01/2023 6:00 AM EDT Anticoagulation Pharmacy Call Center [address] [address] C[facility], [facility] [address] 60 [facility] [place] [place] [address] 09/04/2023 1:40 PM EDT Office Visit General Internal Medicine [facility] [place] [address] [place] [address] [address] Vianey Matamoros MD 200 [facility] [address] [place] [address] 10/05/2023 1:15 PM EDT Office Visit [facility] [employer] [address] [place] [phone] Bethel Eng MD 200 [facility] [address] [place] [address] Scheduled Orders Name Type Priority Associated Diagnoses Orde r Schedule CBC Lab Routine Peripheral vascular disease (HCC) Pre-procedural laboratory examination Expected: 08/22/2023, Expires: 08/20/2024 BASIC METABOLIC PANEL Lab Routine Peripheral vascular disease (HCC) Pre-procedural laboratory examination Expected: 08/22/2023, Expires: 08/20/2024 PT INR Lab Routine Peripheral vascular disease (HCC) Pre-procedural laboratory examination Expected: 08/22/2023, Expires: 08/20/2024 Scheduled Procedures Name Priority Associated Diagnoses Date/Ti [...] Additional history exists CKD HGB USE SMARTSET 06211 06/28/202406/28, 05/12/2023, 05/11/2023, Additional history exists CKD PHOS USE SMARTSET 53552 06/28/2024 03/0 10/2023, 05/20/2022, 02/05/2021, Additional history exists Colonoscopy 05/13/2025 05/13/2022, 0705/2018, [...] as of this encounter Visit Diagnoses Diagnosis Peripheral vascular disease (HCC)- Primary Peripheral vascular disease, unspecified Pre-procedural laboratory examination documented in this encounter Care Teams On Air Director Relationship Specialty Start Date End Date Vianey Matamoros MD [address] [place] [address], [place] [address] PCP - General Internal Medicine 01/11/21 documented as of this encounter
--- OUTSIDE RECORDS SUMMARY | 2023-08-27 08:58 | External Medical Summary ---
Author Name Unknown Address Unknown Organization [id number]:LABORATORY [facility] [address] [place] [id number] Laboratory Report Ordering Provider Test Date Status TOR KIRBY 08/22/2023 09:41:00 Final Observation Date Value Abnormality Reference (Units ) Status BUN 08/22/2023 09:41:00 24 Above high normal 6-20 (mg/dL) Final Creatinine 08/22/2023 09:41:00 1.1 0.6-1.2 (mg/dL) Final Glomerular filtration rate/1.73 sq M.predicted [Volume Rate/Area] in Serum, Plasma or Blood by Creatinine-based formula (CKD-EPI) 08/22/2023 09:41:00 63 >=60 (mL/min) Final eGFR is calculated based on the CKD-EPI 2020 equation Sodium 08/22/2023 09:41:00 138 135-146 (m mol/L) Final Potassium 08/22/2023 09:41:00 4.0 3.5-5.1 (m mol/L) Final Cl 08/22/2023 09:41:00 101 98-107 (mm ol/L) Final CO2 08/22/2023 09:41:00 31 22-32 (mmo l/L) Final Anion gap 08/22/2023 09:41:00 6 Below low normal 7-1 5 (mmol/L) Final Glucose 08/22/2023 09:41:00 104 70-120 (mg /dL) Final Calcium 08/22/2023 09:41:00 8.4 8.4-10.2 ( mg/dL) Final Performing Location LABORATORY [facility] [address] [place] [id number]
--- OUTSIDE RECORDS SUMMARY | 2023-08-27 08:58 | External Medical Summary ---
Author Name Unknown Address Unknown Organization K0G:LABORATORY [facility] [address] [place] [id number] Laboratory Report Ordering Provider Test Date Status TOR KIRBY 08/22/2023 09:41:00 Final Warfarin Therapy
INR: 2 .0-3.0 conventional anticoagulation
INR: 2.5- 3.5 high intensity anticoagulation Observation Date Value Abnormality Reference (Units ) Status PT 08/22/2023 09:41:00 20.7 Above high normal 11 .6-15.2 (seconds) Final INR 08/22/2023 09:41:00 1.8 Above high normal 0. 8-1.2 Final Performing Location LABORATORY [facility] [address] [place] [id number]
--- OUTSIDE RECORDS SUMMARY | 2023-08-27 08:58 | External Medical Summary ---
Author Name Unknown Address Unknown Organization K0G:LABORATORY [facility] [address] [place] [id number] Laboratory Report Ordering Provider Test Date Status TOR KIRBY 08/22/2023 09:41:00 Final Observation Date Value Abnormality Reference (Units ) Status WBC, Total 08/22/2023 09:41:00 8.11 4.00-10.8 0 (K/uL) Final RBC 08/22/2023 09:41:00 4.27 4.50-5.25 (M/uL) Final Hemoglobin 08/22/2023 09:41:00 12.6 Below low normal 14 .0-16.8 (g/dL) Final HCT 08/22/2023 09:41:00 38.3 Below low normal 40. 0-48.4 (%) Final MCV 08/22/2023 09:41:00 89.7 82.0-99.5 (fL) Final MCH 08/22/2023 09:41:00 29.5 27.0-34.0 (pg) Final MCHC 08/22/2023 09:41:00 32.9 32.0-36.0 (g/dL) Final RDW 08/22/2023 09:41:00 16.0 11.5-15.5 (%) Final Platelets 08/22/2023 09:41:00 203 140-400 (K /uL) Final MPV 08/22/2023 09:41:00 9.5 6.6-11.1 ( fL) Final Performing Location LABORATORY [facility] [address] [place] [id number]
--- OUTSIDE RECORDS SUMMARY | 2023-08-27 08:58 | External Medical Summary | Summary of Care ---
Author Name Unknown Organization [facility] Address [address] [place] [address] Phone [phone] Care Team Providers Care Supervisor Shuttle Fitting Name Role Phone Vianey Matamoros MD Primary Care Provider [phone] Encounter Details Date Type Department Care Team (Late st Contact Info) Description 08/22/2023 Documentation Ancillary [facility] [address] [facility] [place] [id number] Faith Zambrano, RN Allergies Active Allergy Reactions Criticality Noted Date [...] A1c goal of less than 8.0% (HCC) Use once daily with Lantus 90 Each [...] A1c goal of less than 8.0% (HCC) TEST 2 TIMES A DAY DIRECTED 200 [...] left heel, stage 2 04/27/2023 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 3. Left sinus disease. 07[place] [facility] [place] MRI of brain with and [...] neuroma Will recommend an ENT appointment with [facility] [place]. Ponce Stress ECHO 2003- negative [...] mRNA, LNP-s, No Pre serve, 2-Dose Series ([email or web address]) 02/19/2021,07/03/2020,06/10/2020 COVID-19, LNP-s, No Preserve , Fawad-sucrose, [...] AM EDT Office Visit [facility] [employer] [address] [place] [address] Vianey Matamoros MD 200 [facility] [address] [place] [address] 08/31/2023 7:00 AM EDT Laboratory Lab Mobile Phlebotomy [facility] [address] [place] [address] [facility], [facility] [address] [place] [employer] [place] [place] [address] 09/01/2023 6:00 AM EDT Anticoagulation Pharmacy Call Center [address] [facility] [address] [address] C[facility]ps, [facility] 58 60 [facility] [address] [place] [address] 09/04/2023 1:40 PM EDT Office Visit General Internal Medicine [facility] [place] [address] [place] [address] Vianey Matamoros MD 200 [facility] [address] [address] 10/05/2023 1:15 PM EDT Office Visit Hematology/Oncology [facility] [place] [address] [phone] Bethel Eng MD 200 [facility] [address] [place] [address] Scheduled Procedures Name Priority Associated Diagnoses Date/Ti [...] , 10/09/2019, Additional history exists COVID-19 Vaccine (2022-24 season) 2022 02/11/2022, 02/11/2022, 09/07/2021, Additional history exists HbA1c 12/30/2023 06/29/2023, 03/24, 03/30/2023, Additional history exists CKD HGB USE SMARTSET 64565 06/28/202408/21, 06/29/2023, 05/12/2023, Additional history exists CKD PHOS USE SMARTSET 28858 06/28/2024 03/0 10/2023, 05/20/2022, 02/05/2021, Additional history exists Colonoscopy 05/13/2025 05/13/2022, 05/2018, 07/18/2017 DTaP,Tdap,and Td Vaccines (3 - Td [...] filedocumented as of this encounter Care Teams Supervisor Shuttle Fitting Relationship Specialty Start Date End Date Vianey Matamoros MD 200 [facility] [place] [address] PCP - General Internal Medicine 01/11/21 documented as of this encounter
--- OUTSIDE RECORDS SUMMARY | 2023-08-27 08:58 | External Medical Summary | Summary of Care ---
Author Name Unknown Organization [facility] Address [address] [place] [address] Phone [phone] Care Team Providers Care Battery Plate Assembler Name Role Phone Vianey Matamoros MD Primary Care Provider [phone] Reason for Visit * Reason Onset Date Comments Hospital Follow-Up 08/22/2023 [facility] Encounter Details Date Type Department Care Team (Late st Contact Info) Description 08/22/2023 Telephone Ancillary [facility] [address] [place] [address] Faith Zambrano, [facility] Hospital Follow-Up ([facility]) Allergies Active Allergy Reactions Criticality Noted Date [...] hemoglobin A1c goal of less than 8.0% ([facility]) Use once daily with Lantus [...] hemoglobin A1c goal of less than 8.0% ([facility]) Inject 16 Units under the skin in the morning. 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 3. Left sinus disease. 07/28 [facility] [place] F/[place]: MRI of brain with and [...] neuroma Will recommend an ENT appointment with [facility] Dr. Ponce Stress ECHO 2003- negative [...] mRNA, LNP-s, No Pre serve, 2-Dose Series ([employer]) 02/19/2021,07/03/2020,06/10/2020 COVID-19, LNP-s, No Preserve , Fawad-sucrose, [...] encounter Miscellaneous Notes * Telephone Encounter - Faith Zambrano, RN - 08/22/2023 9:40 AM EDT Images from the original note were not included. 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 Source/Contact: Patient SUBJECTIVE Consent: Verbal consent for review of hospital discharge: Yes REVIEW OF SYSTEMS Patient/Other Reports: Current patient/caregiver problems or concerns: "very sleepy" CV: Edema- slight edema of ankles Pulmonary: Denies problems Chills/Sweats/Fever:Denies chills/sweats Denies fever Appetite:Denies problems such as nausea, vomiting, burning, decreased appetite Current diet: carb count Bowel: date of last BM: before going into the hospital Bladder: ostomy/indwelling catheter: no issues Wound (If applicable): Site-sacral wound Pain:Denies Sleep:Denies problems FUNCTIONAL STATUS: ADL'S: Needs Assistance With:Bathing and Dressing IADL'S: Needs Assistance With:Grocery Shopping, Cooking food, and Routine Housework Cognitive and Mental Health: denies problems, alert and oriented x 3, and able to communicate, understand instructions, process information. MEDICATION RECONCILIATION Medications: Discharge med list reviewed with patient or caregiver New medication(s) filled since hospitalization- see below Reports all medications taken as prescribed. ASSESSMENT Medication Risk Assessment: No risks identified Did patient fail outpatient treatment? Yes Discharge instructions available for review? Yes PLAN Symptom Monitoring Interventions:Member/caregiver education - signs and symptoms to contact PrimaryCare (DO NOT DELETE-Three brown symptoms patient is to report to PCP) 1. fever 2. Cough, sob, wheezing 3. Increasing pain Utilization SupervisorMainstreaming Facilitator of Care interventions/Action Plan: Medication reconciliation and 5 - 7 day follow-up with PCP in place - Date: Dr. Matamoros 08/27 at 11 am Educated on role of PRIMO completed with patient/caregiver. Educated patient/caregiver on patient right to have input on PRIMO plan of care. Verification of Home Health/DME if indicated: YES [facility] Identified Care Gaps: Yes Care Gaps closed this call: Appointment made or confirmed and Transition of Care follow-up communication Re-evaluation of Plan of Care and progress towards goals achievement: Patient education this visit: Verbal, encouraged pt to use probiotic while on antibiotics, increase fluid intake, call with any questions or concerns Plan to discharge needs met, verbalizes understanding and agrees with plan. Faith Qiu, RN documented in this encounter Plan of Treatment Upcoming Encounters Date Type Department Care Team (Late st Contact Info) Description 08/29/2023 11:00 AM EDT Office Visit General Internal [facility] [place] [address] [place] [address] Vianey Matamoros MD [address] [place] [address] 08/31/2023 7:00 AM EDT Laboratory Lab Mobile Phlebotomy [facility] [address] [address] [facility], [facility] [address] [address] 09/01/2023 6:00 AM EDT Anticoagulation Pharmacy Call Center [address] [place] [address] [facility] [address] [place] [address] 09/04/2023 1:40 PM EDT Office Visit General Internal Medicine [facility] [place] [address] Vianey Matamoros MD [address] [place] [address] 10/05/2023 1:15 PM EDT Office Visit Hematology/Oncology [facility] [place] [address] [place] [phone] Bethel Eng MD [address] [place] [address] Scheduled Procedures Name Priority Associated Diagnoses Date/Ti [...] Additional history exists CKD HGB USE SMARTSET 68384 06/28/202408/21, 06/29/2023, 05/12/2023, Additional history exists CKD PHOS USE SMARTSET 06062 06/28/2024 03/0 10/2023, 05/20/2022, 02/05/2021, Additional history exists Colonoscopy 05/13/2025 05/13/2022, 07/0 05/2018, 07/18/2017 DTaP,Tdap,and Td Vaccines (3 - [...] filedocumented as of this encounter Care Teams Battery Plate Assembler Relationship Specialty Start Date End Date Vianey Matamoros MD [address] [place] [address] PCP - General Internal Medicine 01/11/21 documented as of this encounter
== END 2023-08-26 16:06 | disposition home health service (06) ==
LOC: CC 08:55 → 2E 08:55 → SUATTDRO 14:25
PROC: CLB.AEU (2023-08-25 10:00)

== ENCOUNTER 2023-12-19 17:01 | Inpatient (IN) ==
--- NOTE | 2023-12-19 17:19 | Emergency Department Note ---
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 IV was established and blood work was obtained. Patient's blood work with a normal white count hemoglobin 12.9 with a normal platelet count. The patient's kidney function is unremarkable. Urinalysis shows the possibility of infection. Patient was ordered IV Rocephin after reviewing most recent urine culture. I did speak the on-call hospitalist service the patient was admitted by Dr. Hawthorne. Discussion w/ other healthcare providers: Dr. Hawthorne inpatient medicine service Prior /Outside records reviewed: I reviewed a discharge summary from August 26, [address] Maldonado. Patient had been in the hospital late July for infected sacral ulcers and UTI. Patient also with history of PAD diabetic foot ulcers. Patient did have a prior angioplasty for his PAD completed by Dr. Ulrich. Patient was to be on Coumadin and Plavix. I did review part of a brief operative note from Dr. Ulrich from a third showed heart percent popliteal stent occlusion with reconstitution just prior to takeoff of the LULY. Also with left 100% proximal LULY occlusion 100% proximal PHOTORADIO OPERATOR occlusion. Left peroneal patent with 60% ostial stenosis then widely patent to the foot collaterals to DPA and PHOTORADIO OPERATOR. Patient did have intervention to the left popliteal occlusion with atherectomy and 2 drug-eluting balloons extending into the peroneal. I reviewed a prior urine culture which showed Klebsiella pneumonia a from August 18, 2023 which was not sensitive to ampicillin sulbactam or nitrofurantoin but was otherwise sensitive. Differential diagnosis: Infection, dehydration, metabolic abnormality, hypo/hyperglycemia, electrolyte imbalance, anemia, UTI, pneumonia, thyroid dysfunction among others were considered. Diagnostics, as interpreted by me: ECG: A-fib with occasional pacing present, rate of 63, right axis deviation, right bundle branch block pattern. Cardiac monitoring: An order was placed for continuous cardiac monitoring. The monitor shows a rate of 65 with occasionally paced rhythm. Patient was placed on pulse oximetry Medical decision rules: None Imaging studies: I informally interpreted the patient's Chest x-ray does not show evidence of obvious pneumonia with formal report to follow. HPI: Patient presents with his home health aide due to concern for COVID-19 home testing positive and the home care does not take care of COVID-19 patients. Patient is reportedly dependent on home care. Patient developed symptoms several days ago and has had a cough that was initially dry but has now become more productive. Home health reportedly reported this to the supervisor wet end and did COVID testing and 2 test were positive. Home health aide does not report any symptoms at this time. Patient denies any chest pains or shortness of breath no nausea vomiting or diarrhea. The patient dates that his appetite has been appropriate. PAST MEDICAL HISTORY: See Below PAST SURGICAL HISTORY: See Below SOCIAL HISTORY: See Below HOME MEDICATIONS: See Below ALLERGIES: See Below VITALS: See Below PHYSICAL EXAMINATION: GENERAL: NAD, non-toxic. Wearing glasses and a mask. EYE EXAM: Normal conjunctiva. PERRL, no anisocoria and EOM's grossly intact w/o pain. NECK: Trachea midline, no stridor. Supple, no nuchal rigidity, no adenopathy, non-tender. No signs of meningismus. FROM of the neck with good chin to chest and neck extension. LUNGS: Clear to auscultation. Normal chest wall mechanics. HEART: NSR, no MRG. ABDOMEN: Abdomen soft, non-tender, no masses, no rebound or guarding. BACK: No CVA TTP. SKIN: No rashes and no bruising. UPPER EXTREMITIES: Upper extremities are grossly normal. LOWER EXTREMITIES: Grossly normal, no edema. Bilateral lower extremities well- perfused. NEURO EXAM: A&O x3, cranial nerves II-XII grossly intact, normal speech, moves all 4 extremities. Past Med/Surg History Problem List (Updated 12/20/23 @ 15:36 by Elie Carr MD) Weakness (Acute) Complicated urinary tract infection (Acute) COVID-19 (Acute) Diabetic ulcer of toe of right foot (Acute) Pressure ulcer of left heel (Acute) UTI due to Klebsiella species Acute UTI (Acute) Wound of sacral region Diabetic ulcer of toe of left foot (Acute) Pressure ulcer of dorsum of left foot, stage 3 (Acute) Pressure ulcer of dorsum of left foot, stage 2 (Acute) Bradycardia Open wound of buttock (Acute) Surgical wound, non healing (Acute) Osteomyelitis of foot, acute (Acute) Diabetic infection of left foot (Acute) PAD (peripheral artery disease) (Chronic) Rectal bleeding (Acute) DVT prophylaxis Discharge planning issues Encounter for pre-operative examination Urinary retention UTI (urinary tract infection) (Acute) Family history of prostate cancer (Acute) Gross hematuria (Acute) Melanoma Diabetic foot ulcer associated with type 2 diabetes mellitus, with fat layer exposed Diabetic ulcer of toe (Acute) Diabetic ulcer of toe associated with diabetes mellitus due to underlying condition, with bone involvement without evidence of necrosis (Acute) PAD (peripheral artery disease) (Chronic) Diabetes History of ESBL E. coli infection Closed fracture of left proximal humerus Chronic systolic heart failure CKD (chronic kidney disease), stage III Complete heart block Pacemaker Chronic pain Encounter for pre-operative examination Abnormal ankle brachial index Diabetic foot ulcer (Acute) Unstageable pressure ulcer Sacral pressure ulcer Diabetic ulcer of right great toe (Acute) Diabetic ulcer of left foot (Acute) Stage III pressure ulcer of sacral region (Acute) Fungal rash of trunk (Acute) History of prostate cancer PROSTATECTOMY Diabetes mellitus type 2 with complications Coronary artery disease Atrial fibrillation History of airway aspiration Medical History Bacterial septicemia PVD (peripheral vascular disease) Berman catheter in place gets changed monthly Cerebrovascular disease Heart failure Ambulatory dysfunction History of hepatitis B Renal failure ? 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 History of anesthesia reaction WITH TESTICULAR SURGERY, [facility] - INCREASED BP & HAD TO STAY OVERNIGHT History of cardiac cath years ago> [facility] - CHECKING FOR BLOCKAGE - NO STENTS History of testicular surgery History of colonoscopy MULTIPLE History of tonsillectomy and adenoidectomy History of right hemicolectomy H/O prostatectomy Family History Mother Coronary heart disease Father Heart disease Social History Smoking Status: Never smoker Second Hand Exposure: No; Do You Dip or Chew Tobacco: No; Hx Alcohol Use: Yes Alcohol type: hard liquor Hx Substance Use: No Preferred Language: Vietnamese Communication Ability: Effective Hearing Ability: Hard of Hearing Manager Transportation Required: No Beliefs That Will Affect Care: None marital status: Single Current Living Situation: Alone Current Living Situation Comment: alone with caregivers during the day current occupational status: retired How many Children do You have: 0 Feels Safe at Home: Yes Diet: diabetic Diet Comment: Increased protein for healing per chart during the past year weight has: remained stable Assistive Devices: Walker and Wheelchair Allergies Allergies Allergy/AdvReac Type Severity Reaction Status Date / Time ampicillin Allergy Intermediate Rash Verified 12/19/23 22:22 Macrolide Antibiotics Allergy Unknown PER Verified 12/19/23 22:22 MEDICAL RECORD sildenafil Allergy Unknown SWELLING Verified 12/19/23 22:22 OF FACE AND HEAD streptomycin Allergy Unknown N/V Verified 12/19/23 22:22 nitrofurantoin AdvReac Diarrhea Verified 12/19/23 22:22 VASODILATORS Allergy Unknown "PERIPHERAL Uncoded 12/19/23 22:22 DILATOR" swelling of face and head Home Meds Home Medications Medication Instructions Recorded Confirmed amiodarone 200 mg tablet 200 mg PO QAM 01/02/18 12/19/23 insulin glargine 100 unit/mL 16 units subcut DAILY 01/02/18 12/19/23 subcutaneous solution loratadine 10 mg tablet 10 mg PO QAM 01/02/18 12/19/23 magnesium oxide 400 mg (241.3 mg 400 mg PO QAM 01/02/18 12/19/23 magnesium) tablet metoprolol succinate 25 mg 25 mg PO QAM 01/02/18 12/19/23 tablet,extended release 24 hr gabapentin 300 mg capsule 300 mg PO TID 03/10/18 12/19/23 docusate sodium 100 mg capsule 100 mg PO BID 04/27/22 12/19/23 (Colace) mometasone 0.1 % topical solution 1 applic topical .EVERY 24 HOURS 04/27/22 12/19/23 PRN Itching acetaminophen 325 mg capsule 650 mg PO Q4 PRN PAIN/FEVER 05/10/22 12/19/23 bisacodyl 10 mg rectal suppository 10 mg PA .EVERY 24 HOURS PRN 12/01/22 12/19/23 Constipation calcium carbonate 500 mg-vitamin 1 tab PO QAM 12/01/22 12/19/23 D3 5 mcg (200 unit) tablet (Oyster Shell Calcium-Vitamin D3) mirtazapine 30 mg tablet (Remeron) 30 mg PO HS 12/01/22 12/19/23 multivit,stress formula-zinc tablet 1 tab PO DAILY 12/01/22 12/19/23 midodrine 2.5 mg tablet 2.5 mg PO BID 03/10/23 12/19/23 zolpidem 5 mg tablet (Ambien) 5 mg PO QPM 03/10/23 12/19/23 furosemide 40 mg tablet 40 mg PO QAM 04/14/23 12/19/23 [id number] 250 mg-dha 90 1 cap PO QAM 04/14/23 12/19/23 mg-epa 160 [id number] capsule (Ocuvite Adult 50 Plus) oxycodone 5 mg tablet 5 mg PO Q12H PRN mod-severe pain 04/14/23 12/19/23 warfarin 2 mg tablet 1 - 2 mg PO DIRECTED 04/14/23 12/19/23 melatonin 5 mg capsule 10 mg PO HS 06/15/23 12/19/23 potassium chloride 20 mEq 20 meq PO DAILY 08/18/23 12/19/23 tablet,extended release(part/cryst) clobetasol 0.05 % scalp solution 1 applic topical DIRECTED 12/19/23 12/19/23 fluticasone propionate 50 2 spray intranasal DAILY 12/19/23 12/19/23 mcg/actuation nasal spray,suspension (Flonase Allergy Relief) ketoconazole 2 % shampoo 1 applic topical DIRECTED 12/19/23 12/19/23 lorazepam 1 mg tablet 1 mg PO HS 12/19/23 12/19/23 methenamine hippurate 1 gram tablet 1 g PO QAM 12/19/23 12/19/23 Previous Rx's Medication Instructions Recorded clopidogrel 75 mg tablet 75 mg PO QAM #90 tabs 10/17/23 nystatin 100,000 unit/gram topical 1 applic topical DAILY #60 grams 10/19/23 powder Results & Data (ED) Vital Signs Vital Signs - 24 hr 12/19/23 16:56 12/19/23 17:37 12/19/23 17:50 Temperature 36.6 C Temperature Source Oral Pulse Rate 92 H 74 74 Pulse Rate [Apical] Pulse Rhythm Regular Regular Pulse Strength Normal Respiratory Rate 20 20 Respiratory Effort / Characteristics Non-Labored Spontaneous Respiratory Depth Normal Respiratory Pattern Regular Blood Pressure 146/69 H Blood Pressure [Left Arm] Blood Pressure Mean 94 Blood Pressure Mean [Left Arm] Pulse Oximetry 98 98 Oxygen Delivery Method Room Air Room Air Sepsis Recent Fever Within 48 Hours No Sepsis New/Unexplained Change in Mental Status No Sepsis Action Taken by Nursing No Action Required 12/19/23 19:28 Temperature Temperature Source Pulse Rate Pulse Rate [Apical] 66 Pulse Rhythm Pulse Strength Respiratory Rate 18 Respiratory Effort / Characteristics Non-Labored Spontaneous Respiratory Depth Normal Respiratory Pattern Blood Pressure Blood Pressure [Left Arm] 119/70 Blood Pressure Mean Blood Pressure Mean [Left Arm] 86 Pulse Oximetry 96 Oxygen Delivery Method Room Air Sepsis Recent Fever Within 48 Hours Sepsis New/Unexplained Change in Mental Status Sepsis Action Taken by [facility] Medications Current Medication List: was personally reviewed by me Laboratory Data Attestation: I reviewed the patient's lab results. 12/20/23 04:27 12/20/23 14:46 Lab Results 12/19/23 12/19/23 Range/Units 17:45 19:03 WBC 9.36 (4.8-10.8) K/ul RBC 4.48 L (4.70-6.10) M/uL Hgb 12.9 L (14.0-18.0) g/dl Hct 38.4 L (42.0-52.0) % MCV 85.7 (80.0-100.0) fL MCH 28.8 (25.0-34.0) pg MCHC 33.6 (32.0-36.0) g/dL RDW Std Deviation 46.6 H (36.4-46.3) fL RDW Coeff of Gabriela 14.8 H (11.5-14.5) % Plt Count 195 (130-400) K/uL MPV 9.0 L (9.4-12.4) fL Immature Gran % (Auto) 0.3 % Neut % (Auto) 65.5 % Lymph % (Auto) 25.2 % [place] % (Auto) 8.1 % Eos % (Auto) 0.6 % Baso % (Auto) 0.3 % Neut # (Auto) 6.12 (1.40-6.50) K/uL Lymph # (Auto) 2.36 (1.20-3.40) K/uL [place] # (Auto) 0.76 H (0.11-0.59) K/uL Eos # (Auto) 0.06 (0.00-0.50) K/uL Baso # (Auto) 0.03 (0.00-0.20) K/uL Immature Gran # (Auto) 0.03 (0.01-0.20) K/uL PT 15.8 H (9.0-12.0) Seconds INR 1.5 H (0.9-1.1) Sodium 129 L (136-145) mmol/L Potassium 4.4 (3.5-5.1) mmol/L Chloride 96 L (98-107) mmol/L Carbon Dioxide 27 (21-32) mmol/L Anion Gap 6 (3-11) BUN 21 (6-23) mg/dl Creatinine 1.08 (0.6-1.4) mg/dl Est Cr Clr Drug Dosing 53.4 ml/min Est GFR ( Amer) 70.6 ml/min Est GFR (Non-Af Amer) 61.0 ml/min BUN/Creatinine Ratio 19.4 (10-20) Glucose 111 H (70-99(Fasting)) mg/dl Osmolality 276 L (280-300) mOsm/kg Calcium 7.7 L (8.6-10.3) mg/dl Magnesium 1.9 (1.7-2.4) mg/dl Total Bilirubin 0.3 (0.2-1.0) mg/dl AST 23 (13-39) U/L ALT 19 (7-52) U/L Alkaline Phosphatase 102 (34-104) U/L Total Protein 6.3 (6.0-8.3) gm/dl Albumin 3.1 L (3.4-5.0) gm/dl Globulin 3.2 (2.5-4.0) gm/dl Albumin/Globulin Ratio 1.0 (0.9-2) TSH 3.680 (0.300-4.500) uIu/ml Urine Color Yellow Urine Appearance Cloudy A (Clear) Urine pH 5.5 (4.5-7.5) Ur Specific [place] 1.011 (1.000-1.030) Urine Protein Negative (Negative) Urine Glucose (UA) Negative (Negative) Urine Ketones Negative (Negative) Urine Blood Trace H (Negative) Urine Nitrite Positive A (Negative) Urine Bilirubin Negative (Negative) Urine Urobilinogen Negative (Negative) Ur Leukocyte Esterase 3+ H (Negative) Urine WBC (Auto) >50 H (0-5) /hpf Urine RBC (Auto) 0-2 (0-2) /hpf U Hyaline Cast (Auto) 3-5 H (0-2) /lpf U Epithel Cells (Auto) 0-2 (0-2) /hpf Urine Bacteria (Auto) 4+ H (None Seen) SARS-CoV-2 (PCR) POSITIVE A (Negative) Influenza Type A (PCR) Negative (Neg) Influenza Type B (PCR) Negative (Neg) RSV (RT-PCR) Negative (Neg) Administered Medications Amiodarone HCl (Amiodarone 200 Mg Tab) 200 mg PO QAM [facility] Stop: 01/19/24 08:59 Last Admin: 12/20/23 09:57 Dose: 200 mg Documented By: RLMariella Clopidogrel Bisulfate (Clopidogrel Bisulfate 75 Mg Tab) 75 mg PO QAM [facility] Stop: 01/19/24 08:59 Last Admin: 12/20/23 09:57 Dose: 75 mg Documented By: CHARLES Docusate Sodium (Docusate Sodium 100 Mg Cap) 100 mg PO BID [facility] Stop: 01/19/24 08:59 Last Admin: 12/20/23 09:59 Dose: 100 mg Documented By: RLMariella Fluticasone Propionate (Fluticasone Propionate Na Spr 16 Gm Btl) 2 sprays NA DAILY [facility] Stop: 01/19/24 08:59 Last Admin: 12/20/23 10:00 Dose: 2 sprays Documented By: CHARLSE Gabapentin (Gabapentin 300 Mg Cap) 300 mg PO TID [facility] Stop: 01/19/24 08:59 Last Admin: 12/20/23 09:59 Dose: 300 mg Documented By: CHARLES Insulin Aspart (Insulin Aspart Per Unit Charge) 0 units SC ACHS [facility] Stop: 01/18/24 22:22 Last Admin: 12/20/23 13:24 Dose: Not Given Documented By: Admin: 12/20/23 09:56 Dose: Not Given Documented By: Admin: 12/20/23 01:09 Dose: Not Given Documented By: SHAILA Insulin Glargine (Lantus Per Unit Charge) 10 units SQ DAILY [facility] Stop: 01/19/24 08:59 Last Admin: 12/20/23 10:39 Dose: 10 units Documented By: CHARLES Co-signed By: LICHA Loratadine (Loratadine 10 Mg Tab) [facility] [place] [facility] [place] Stop: 01/19/24 08:59 Last Admin: 12/20/23 09:59 Dose: 10 mg Documented By: CHARLES Lorazepam (Lorazepam 1 Mg Tab) 1 mg PO DAILY@1999 [facility] Stop: 01/18/24 22:34 Last Admin: 12/20/23 00:28 Dose: 1 mg Documented By: SHAILA Melatonin (Melatonin 3 Mg Tab) 9.5 mg PO DAILY@2299 [facility] Stop: 01/18/24 22:59 Last Admin: 12/20/23 00:29 Dose: 9.5 mg Documented By: SHAILA Methenamine Hippurate (Methenamine Hippurate 1 Gm Tab) 1 gm [facility] [place] [facility] [place] Stop: 01/19/24 08:59 Last Admin: 12/20/23 09:57 Dose: 1 gm Documented By: CHARLES Metoprolol Succinate (Metoprolol Succ 25mg Ext Rel Tab) 25 mg [facility] [place] [facility] [place] Stop: 01/19/24 08:59 Last Admin: 12/20/23 09:58 Dose: 25 mg Documented By: CHARLES Midodrine (Midodrine Hcl 2.5 Mg Tab) 2.5 mg PO BIDM [facility] Stop: 01/19/24 07:59 Last Admin: 12/20/23 09:59 Dose: 2.5 mg Documented By: CHARLES Mirtazapine (Mirtazapine Tab 15 Mg Tab) 30 mg PO HS [facility] Stop: 01/18/24 22:34 Last Admin: 12/20/23 00:28 Dose: 30 mg Documented By: SHAILA Multivitamins/Minerals (Cerovite Adv Formula Tab) 1 tab PO DAILY [facility] Stop: 01/19/24 08:59 Last Admin: 12/20/23 09:59 Dose: 1 tab Documented By: CHARLES Discontinued Medications Ceftriaxone Sodium (Rocephin) 2,000 mg in 50 mls @ 100 mls/hr IV NOW STA Stop: 12/19/23 20:29 Last Infusion: 12/19/23 21:08 Dose: Infused Documented By: Admin: 12/19/23 20:26 Dose: 100 mls/hr Documented By: MAX Sodium Chloride (Nss) 1,000 mls @ 60 mls/hr IV .[id number] ONE Stop: 12/20/23 13:42 Last Infusion: 12/20/23 10:16 Dose: Infused Documented By: Admin: 12/19/23 22:54 Dose: 60 mls/hr Documented By: MAX Warfarin Sodium (Warfarin Sod 5 Mg Tab) 5 mg PO NOW ONE Stop: 12/20/23 00:00 Last Admin: 12/20/23 00:29 Dose: 5 mg Documented By: SKBrian Imaging Data Radiologist's Impression: Chest X-Ray 12/19/23 17:37 SINGLE VIEW CHEST CLINICAL HISTORY: Generalized weakness. FINDINGS: An AP, portable, upright chest radiograph is compared to study dated 08/18/2023. Correlation is made with chest CT dated 07/11/2016. A 2-lead cardiac pacemaker is unchanged in position and partially obscures the left mid chest. The heart is enlarged noting atherosclerotic calcification of the thoracic aorta. There is pulmonary vascular congestion. Chronic interstitial thickening is similar to previous. There is bibasilar scarring/atelectasis. No large pleural effusion or pneumothorax is seen. The skeletal structures are osteopenic. Chronic deformity of the left proximal humerus is partially imaged. IMPRESSION: 1. Cardiomegaly and cardiac pacemaker with pulmonary vascular congestion. 2. No airspace consolidation or large pleural effusion is identified. ACT 112: Negative or not required by law. Electronically signed by: Austin Guaman M.D. 12/19/2023 7:12 PM Discharge Plan Visit Data Chief Complaint: Illness Stated Complaint: ILLNESS ED Provider: Elie Carr Discharge Problem: COVID-19, Complicated urinary tract infection, Weakness Patient Disposition: Admitted As Inpatient Discharge Instructions Interventions: ED Discharge Assessment Last Done: 12/19/23 22:22
[2023-12-19 18:47] LABS: Influenza A virus by PCR Negative (Neg); Influenza B virus by PCR Negative (Neg); RSV by PCR Negative (Neg); SARS CoV2 RNA(COVID-19) Ceph POSITIVE (Negative)
[2023-12-19 18:49] LABS: Appearance Urine Cloudy (Clear); Bacteria Urine Automated 4+ (None Seen); Bilirubin Urine Negative (Negative); Blood Urine Trace (Negative); Color Urine Yellow; Epithelial Cell Urine Auto 0-2 /hpf (0-2); Glucose Urine UA Negative (Negative); Ketones Urine Negative (Negative); Leukocyte Esterase Urine 3+ (Negative); Nitrite Urine Positive (Negative); Protein Urine Negative (Negative); RBC Urine Automated 0-2 /hpf (0-2); Specific Gravity Urine 1.011 (1.000-1.030); Urobilinogen Urine Negative (Negative); WBC Urine Automated >50 /hpf (0-5); pH Urine 5.5 (4.5-7.5)
[2023-12-19 19:13] LABS: Basophils # (auto) 0.03 K/uL (0.00-0.20); Basophils % (auto) 0.3 %; Eosinophils # (auto) 0.06 K/uL (0.00-0.50); Eosinophils % (auto) 0.6 %; Hematocrit (blood only) 38.4 % (42.0-52.0); Hemoglobin 12.9 g/dl (14.0-18.0); Immature Granulocytes # (auto) 0.03 K/uL (0.01-0.20); Immature Granulocytes % (auto) 0.3 %; Lymphocytes # (auto) 2.36 K/uL (1.20-3.40); Lymphocytes % (auto) 25.2 %; Mean Corpuscular Hemoglobin 28.8 pg (25.0-34.0); Mean Corpuscular Hgb Conc 33.6 g/dL (32.0-36.0); Mean Corpuscular Volume 85.7 fL (80.0-100.0); Monocytes # (auto) 0.76 K/uL (0.11-0.59); Monocytes % (auto) 8.1 %; Neutrophils # (auto) 6.12 K/uL (1.40-6.50); Neutrophils % (auto) 65.5 %; Platelet Count 195 K/uL (130-400); RDW Coefficient of Variation 14.8 % (11.5-14.5); RDW Standard Deviation 46.6 fL (36.4-46.3); Red Blood Count 4.48 M/uL (4.70-6.10); White Blood Count 9.36 K/ul (4.8-10.8)
--- NOTE | 2023-12-19 19:14 | XRay Report ---
SINGLE VIEW CHEST CLINICAL HISTORY: Generalized weakness. FINDINGS: An AP, portable, upright chest radiograph is compared to study dated 08/18/2023. Correlation is made with chest CT dated 07/11/2016. A 2-lead cardiac pacemaker is unchanged in position and parti ally obscures the left mid chest. The heart is enlarged noting atherosclerotic calcification of the t horacic aorta. There is pulmonary vascular congestion. Chronic interstitial thickening is similar to previous. There is bibasilar scarring/atelectasis. No large pleural effusion or pneumothorax is seen. The skeletal structures are osteopenic. Chronic deformity of the left proximal humerus is partially imaged. IMPRESSION: 1. Cardiomegaly and cardiac pacemaker with pulmonary vascular congestion. 2. No airspace consolidation or large pleural effusion is identified. ACT 112: Negative or not required by law. Electronically signed by: Austin Guaman M.D. 12/19/2023 7:12 PM
[2023-12-19 19:54] LABS: Albumin Level 3.1 gm/dl (3.4-5.0); BUN Creatinine Ratio 19.4 (10-20); Bilirubin,Total 0.3 mg/dl (0.2-1.0); Calcium 7.7 mg/dl (8.6-10.3); Creatinine Clr Calc Pharmacy 53.4 ml/min; Est GFR (African American) 70.6 ml/min; Globulin 3.2 gm/dl (2.5-4.0); Magnesium 1.9 mg/dl (1.7-2.4); Potassium 4.4 mmol/L (3.5-5.1); Total Protein 6.3 gm/dl (6.0-8.3)
[2023-12-19 20:09] LABS: Thyroid Stimulating Hormone 3.68 uIu/ml (0.300-4.500)
[2023-12-19] MEDS: cefTRIAXone SODIUM 2,000 MG/50 ML BAG IV STA (20:26)
--- NOTE | 2023-12-19 21:37 | History & Physical Report ---
Date of Service December 19, 2023 Assessment & Plan (1) Hyponatremia: Plan: COVID-19 illness chronic systolic heart failure 45%, TTE (EF 2020), patient on the dry side hg CAD/PVD status post surgery SSS status post PPM on Coumadin, INR subtherapeutic orthostatic hypotension on midodrine hypertension, stable DM 2 insulin requiring, well-controlled as of recent hemoglobin A1c of 5.8 this month chronic anemia, hemoglobin at baseline colon cancer status post surgery, in remission prostate cancer status post surgery urinary retention with indwelling Berman catheter recurrent UTIs on chronic methenamine suppression Rx Functional disability Medical telemetry Careful correction of sodium with gentle IVF Hyponatremia workup Hold home diuretic for now Supportive management for COVID-19 illness, no indication for antibiotics right now Case management consult RE contact patient's home health provider to clarify caregiver policy following patient COVID-19 illness DVT prophylaxis Coumadin INR goal between 2 and 3 Full code Text document was generated using [employer] voice recognition software. It may contain grammatical or spelling errors. Kindly contact undersigned for clarification of any documentation item in question. History of Present Illness Chief Complaint: COVID Primary Care Provider: Vianey Matamoros MD History obtained from patient, home health staff and records. Medical history significant for chronic systolic heart failure 45%, TTE (EF 2020), CAD, PVD status post surgery, SSS status post PPM on Coumadin, orthostatic hypotension on midodrine, hypertension, hyperlipidemia, DM 2 insulin requiring, chronic anemia (baseline hemoglobin of 12), colon cancer status post surgery, prostate cancer status post surgery, urinary retention with indwelling Berman catheter, recurrent UTIs on chronic methenamine suppression Rx, past history toe osteomyelitis, skin cancer status post surgery. Last overnight confinement August 2023 for PAD status post elective angioplasty. Unremarkable postop course. 3 days ago, patient noted nasal congestion associated with cough symptoms productive of clear sputum. Denies chest pain, SOB, abdominal pain. No fever, no chills. Appetite okay. Positive COVID-19 test at home done by caregiver. Patient brought to ER following advice of patient's home health agency. Patient dependent on daily caregiver support due to bedridden status as per her account. Home health agency unable to provide caregiver services at patient's home for 10 days after positive COVID-19 test as per policy. IV ceftriaxone administered at the ER. 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, lives by self with caregiver support Allergies Allergy/AdvReac Type Severity Reaction Status Date / Time ampicillin Allergy Intermediate Rash Verified 12/19/23 22:22 Macrolide Antibiotics Allergy Unknown PER Verified 12/19/23 22:22 MEDICAL RECORD sildenafil Allergy Unknown SWELLING Verified 12/19/23 22:22 OF FACE AND HEAD streptomycin Allergy Unknown N/V Verified 12/19/23 22:22 nitrofurantoin AdvReac Diarrhea Verified 12/19/23 22:22 VASODILATORS Allergy Unknown "PERIPHERAL Uncoded 12/19/23 22:22 DILATOR" swelling of face and head Home Medications Medication Instructions Recorded Confirmed Type amiodarone 200 mg tablet 200 mg PO QAM 01/02/18 12/19/23 History insulin glargine 100 unit/mL 16 units subcut DAILY 01/02/18 12/19/23 History subcutaneous solution loratadine 10 mg tablet 10 mg PO QAM 01/02/18 12/19/23 History magnesium oxide 400 mg (241.3 mg 400 mg PO QAM 01/02/18 12/19/23 History magnesium) tablet metoprolol succinate 25 mg 25 mg PO QAM 01/02/18 12/19/23 History tablet,extended release 24 hr gabapentin 300 mg capsule 300 mg PO TID 03/10/18 12/19/23 History docusate sodium 100 mg capsule 100 mg PO BID 04/27/22 12/19/23 History (Colace) mometasone 0.1 % topical solution 1 applic topical .EVERY 24 HOURS 04/27/22 12/19/23 History PRN Itching acetaminophen 325 mg capsule 650 mg PO Q4 PRN PAIN/FEVER 05/10/22 12/19/23 History bisacodyl 10 mg rectal suppository 10 mg WA .EVERY 24 HOURS PRN 12/01/22 12/19/23 History Constipation calcium carbonate 500 mg-vitamin 1 tab PO QAM 12/01/22 12/19/23 History D3 5 mcg (200 unit) tablet (Oyster Shell Calcium-Vitamin D3) mirtazapine 30 mg tablet (Remeron) 30 mg PO HS 12/01/22 12/19/23 History multivit,stress formula-zinc tablet 1 tab PO DAILY 12/01/22 12/19/23 History midodrine 2.5 mg tablet 2.5 mg PO BID 03/10/23 12/19/23 History zolpidem 5 mg tablet (Ambien) 5 mg PO QPM 03/10/23 12/19/23 History furosemide 40 mg tablet 40 mg PO QAM 04/14/23 12/19/23 History heulofcq-lxu- 250 mg-dha 90 1 cap PO QAM 04/14/23 12/19/23 History mg-epa 160 wm-txmr-puen-zeax capsule (Ocuvite Adult 50 Plus) oxycodone 5 mg tablet 5 mg PO Q12H PRN mod-severe pain 04/14/23 12/19/23 History warfarin 2 mg tablet 1 - 2 mg PO DIRECTED 04/14/23 12/19/23 History melatonin 5 mg capsule 10 mg PO HS 06/15/23 12/19/23 History potassium chloride 20 mEq 20 meq PO DAILY 08/18/23 12/19/23 History tablet,extended release(part/cryst) clopidogrel 75 mg tablet 75 mg PO QAM #90 tabs 10/17/23 12/19/23 Rx nystatin 100,000 unit/gram topical 1 applic topical DAILY #60 grams 10/19/23 12/19/23 Rx powder clobetasol 0.05 % scalp solution 1 applic topical DIRECTED 12/19/23 12/19/23 History fluticasone propionate 50 2 spray intranasal DAILY 12/19/23 12/19/23 History mcg/actuation nasal spray,suspension (Flonase Allergy Relief) ketoconazole 2 % shampoo 1 applic topical DIRECTED 12/19/23 12/19/23 History lorazepam 1 mg tablet 1 mg PO HS 12/19/23 12/19/23 History methenamine hippurate 1 gram tablet 1 g PO QAM 12/19/23 12/19/23 History Past Med/Surg History Problem List (Updated 10/03/23 @ 14:28 by ALLIE Ariza) Diabetic ulcer of toe of right foot (Acute) Pressure ulcer of left heel (Acute) UTI due to Klebsiella species Acute UTI (Acute) Wound of sacral region Diabetic ulcer of toe of left foot (Acute) Pressure ulcer of dorsum of left foot, stage 3 (Acute) Pressure ulcer of dorsum of left foot, stage 2 (Acute) Bradycardia Open wound of buttock (Acute) Surgical wound, non healing (Acute) Osteomyelitis of foot, acute (Acute) Diabetic infection of left foot (Acute) PAD (peripheral artery disease) (Chronic) Rectal bleeding (Acute) DVT prophylaxis Discharge planning issues Encounter for pre-operative examination Urinary retention UTI (urinary tract infection) (Acute) Family history of prostate cancer (Acute) Gross hematuria (Acute) Melanoma Diabetic foot ulcer associated with type 2 diabetes mellitus, with fat layer exposed Diabetic ulcer of toe (Acute) Diabetic ulcer of toe associated with diabetes mellitus due to underlying condition, with bone involvement without evidence of necrosis (Acute) PAD (peripheral artery disease) (Chronic) Diabetes History of ESBL E. coli infection Closed fracture of left proximal humerus Chronic systolic heart failure CKD (chronic kidney disease), stage III Complete heart block Pacemaker Chronic pain Encounter for pre-operative examination Abnormal ankle brachial index Diabetic foot ulcer (Acute) Unstageable pressure ulcer Sacral pressure ulcer Diabetic ulcer of right great toe (Acute) Diabetic ulcer of left foot (Acute) Stage III pressure ulcer of sacral region (Acute) Fungal rash of trunk (Acute) History of prostate cancer PROSTATECTOMY Diabetes mellitus type 2 with complications Coronary artery disease Atrial fibrillation History of airway aspiration Medical History Bacterial septicemia PVD (peripheral vascular disease) Berman catheter in place gets changed monthly Cerebrovascular disease Heart failure History of airway aspiration Ambulatory dysfunction History of hepatitis B Renal failure ? stage History of Mohs micrographic surgery for skin cancer History of prostate cancer PROSTATECTOMY History of melanoma HX MELANOMA, HX MULTIPLE SKIN CA & REMOVED Diabetic neuropathy History of colon cancer HX COLON SURGERY Chronic systolic CHF (congestive heart failure) Diabetes mellitus type 2 with complications Hypertension Pacemaker "DUAL" - PT NOT SURE BRAND, PLACED D/T AFIB - [facility] Atrial fibrillation Coronary artery disease Lumbar spinal stenosis Compression fracture of L4 lumbar vertebra HX BROKEN BACK Generalized OA Dyslipidemia Surgical History 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 History of anesthesia reaction WITH TESTICULAR SURGERY, [facility] - INCREASED BP & HAD TO STAY OVERNIGHT History of cardiac cath years ago> [facility] - CHECKING FOR BLOCKAGE - NO STENTS History of testicular surgery History of colonoscopy MULTIPLE History of tonsillectomy and adenoidectomy History of right hemicolectomy H/O prostatectomy Family History Mother Coronary heart disease Father Heart disease Social History Smoking Status: Never smoker Second Hand Exposure: No; Do You Dip or Chew Tobacco: No; Hx Alcohol Use: Yes Alcohol type: hard liquor Hx Substance Use: No Preferred Language: Haitian Communication Ability: Effective Hearing Ability: Hard of Hearing Crew Leader/Control Room Operator Required: No Beliefs That Will Affect Care: None marital status: Single Current Living Situation: Alone Current Living Situation Comment: alone with caregivers during the day current occupational status: retired How many Children do You have: 0 Feels Safe at Home: Yes Diet: diabetic Diet Comment: Increased protein for healing per chart during the past year weight has: remained stable Assistive Devices: Wheelchair Review of Systems Review of Systems: As per HPI, all other systems reviewed and negative Physical Exam Physical Exam: GENERAL: Comfortable, no respiratory distress SKIN: Pallor, warm HEENT: Pale palpebral conjunctivae, no ptosis, dry buccal mucosa NECK : Supple, no tenderness CHEST : Decreased breath sounds, no tenderness HEART : Irregular no obvious murmurs ABDOMEN: Some distention, nontender EXTREMITIES : Minimal LE swelling, no LE tenderness, no other conspicuous deformities noted NEUROLOGIC : Coherent, no facial asymmetry, gait and stance not assessed Results & Data Results & Data Vital Signs (Past 12 Hours) Vital Signs Temp Pulse Pulse Resp BP BP Pulse Ox 12/19/23 19:28 66 18 119/70 96 12/19/23 17:50 74 12/19/23 17:37 74 20 98 12/19/23 16:56 36.6 C 92 H 20 146/69 H 98 O2 Del Method 12/19/23 19:28 Room Air 12/19/23 17:50 12/19/23 17:37 Room Air 12/19/23 16:56 Room Air Laboratory Results Laboratory Results WBC 9.36 K/ul (4.8-10.8) 12/19/23 19:03 RBC 4.48 M/uL (4.70-6.10) L 12/19/23 19:03 Hgb 12.9 g/dl (14.0-18.0) L 12/19/23 19:03 Hct 38.4 % (42.0-52.0) L 12/19/23 19:03 MCV 85.7 fL (80.0-100.0) 12/19/23 19:03 MCH 28.8 pg (25.0-34.0) 12/19/23 19:03 MCHC 33.6 g/dL (32.0-36.0) 12/19/23 19:03 RDW Std Deviation 46.6 fL (36.4-46.3) H 12/19/23 19:03 RDW Coeff of Gabriela 14.8 % (11.5-14.5) H 12/19/23 19:03 Plt Count 195 K/uL (130-400) 12/19/23 19:03 MPV 9.0 fL (9.4-12.4) L 12/19/23 19:03 Immature Gran % (Auto) 0.3 % 12/19/23 19:03 Neut % (Auto) 65.5 % 12/19/23 19:03 Lymph % (Auto) 25.2 % 12/19/23 19:03 Brooke % (Auto) 8.1 % 12/19/23 19:03 Eos % (Auto) 0.6 % 12/19/23 19:03 Baso % (Auto) 0.3 % 12/19/23 19:03 Neut # (Auto) 6.12 K/uL (1.40-6.50) 12/19/23 19:03 Lymph # (Auto) 2.36 K/uL (1.20-3.40) 12/19/23 19:03 Brooke # (Auto) 0.76 K/uL (0.11-0.59) H 12/19/23 19:03 Eos # (Auto) 0.06 K/uL (0.00-0.50) 12/19/23 19:03 Baso # (Auto) 0.03 K/uL (0.00-0.20) 12/19/23 19:03 Immature Gran # (Auto) 0.03 K/uL (0.01-0.20) 12/19/23 19:03 Sodium 129 mmol/L (136-145) L 12/19/23 19:03 Potassium 4.4 mmol/L (3.5-5.1) 12/19/23 19:03 Chloride 96 mmol/L (98-107) L 12/19/23 19:03 Carbon Dioxide 27 mmol/L (21-32) 12/19/23 19:03 Anion Gap 6 (3-11) 12/19/23 19:03 BUN 21 mg/dl (6-23) 12/19/23 19:03 Creatinine 1.08 mg/dl (0.6-1.4) 12/19/23 19:03 Est Cr Clr Drug Dosing 53.4 ml/min 12/19/23 19:03 Est GFR ( Amer) 70.6 ml/min 12/19/23 19:03 Est GFR (Non-Af Amer) 61.0 ml/min 12/19/23 19:03 BUN/Creatinine Ratio 19.4 (10-20) 12/19/23 19:03 Glucose 111 mg/dl (70-99(Fasting)) H 12/19/23 19:03 Calcium 7.7 mg/dl (8.6-10.3) L 12/19/23 19:03 Magnesium 1.9 mg/dl (1.7-2.4) 12/19/23 19:03 Total Bilirubin 0.3 mg/dl (0.2-1.0) 12/19/23 19:03 AST 23 U/L (13-39) 12/19/23 19:03 ALT 19 U/L (7-52) 12/19/23 19:03 Alkaline Phosphatase 102 U/L (34-104) 12/19/23 19:03 Total Protein 6.3 gm/dl (6.0-8.3) 12/19/23 19:03 Albumin 3.1 gm/dl (3.4-5.0) L 12/19/23 19:03 Globulin 3.2 gm/dl (2.5-4.0) 12/19/23 19:03 Albumin/Globulin Ratio 1.0 (0.9-2) 12/19/23 19:03 TSH 3.680 uIu/ml (0.300-4.500) 12/19/23 19:03 Urine Color Yellow 12/19/23 17:45 Urine Appearance Cloudy (Clear) A 12/19/23 17:45 Urine pH 5.5 (4.5-7.5) 12/19/23 17:45 Ur Specific [place] 1.011 (1.000-1.030) 12/19/23 17:45 Urine Protein Negative (Negative) 12/19/23 17:45 Urine Glucose (UA) Negative (Negative) 12/19/23 17:45 Urine Ketones Negative (Negative) 12/19/23 17:45 Urine Blood Trace (Negative) H 12/19/23 17:45 Urine Nitrite Positive (Negative) A 12/19/23 17:45 Urine Bilirubin Negative (Negative) 12/19/23 17:45 Urine Urobilinogen Negative (Negative) 12/19/23 17:45 Ur Leukocyte Esterase 3+ (Negative) H 12/19/23 17:45 Urine WBC (Auto) >50 /hpf (0-5) H 12/19/23 17:45 Urine RBC (Auto) 0-2 /hpf (0-2) 12/19/23 17:45 U Hyaline Cast (Auto) 3-5 /lpf (0-2) H 12/19/23 17:45 U Epithel Cells (Auto) 0-2 /hpf (0-2) 12/19/23 17:45 Urine Bacteria (Auto) 4+ (None Seen) H 12/19/23 17:45 SARS-CoV-2 (PCR) POSITIVE (Negative) A 12/19/23 17:45 Influenza Type A (PCR) Negative (Neg) 12/19/23 17:45 Influenza Type B (PCR) Negative (Neg) 12/19/23 17:45 RSV (RT-PCR) Negative (Neg) 12/19/23 17:45 Impressions Chest X-Ray 12/19/23 17:37 SINGLE VIEW CHEST CLINICAL HISTORY: Generalized weakness. FINDINGS: An AP, portable, upright chest radiograph is compared to study dated 08/18/2023. Correlation is made with chest CT dated 07/11/2016. A 2-lead cardiac pacemaker is unchanged in position and partially obscures the left mid chest. The heart is enlarged noting atherosclerotic calcification of the thoracic aorta. There is pulmonary vascular congestion. Chronic interstitial thickening is similar to previous. There is bibasilar scarring/atelectasis. No large pleural effusion or pneumothorax is seen. The skeletal structures are osteopenic. Chronic deformity of the left proximal humerus is partially imaged. IMPRESSION: 1. Cardiomegaly and cardiac pacemaker with pulmonary vascular congestion. 2. No airspace consolidation or large pleural effusion is identified. ACT 112: Negative or not required by law. Electronically signed by: Austin Guaman M.D. 12/19/2023 7:12 PM Diagnostic Findings EKG as per my interpretation : Rate 65, A-fib, RAD, LPFB, RBB, inferior infarct, T wave abnormalities inferior leads
[2023-12-19] MEDS ORDERED: GLUCAGON FOR INJ 1 MG VIAL SQ PRN (22:23)
[2023-12-19] MEDS ORDERED: ACETAMINOPHEN 325 MG TAB PO PRN (22:23)
[2023-12-19] MEDS ORDERED: GLUCOSE 40% GEL 15 GM TUBE PO PRN (22:23)
[2023-12-19] MEDS ORDERED: DEXTROSE 50% 50 ML SYRINGE IV PRN (22:23)
[2023-12-19] MEDS ORDERED: CARBOHYDRATES FOR HYPOGLYCEMIA PO PRN (22:23)
[2023-12-19] MEDS ORDERED: GLUCOSE 10 TAB/TUBE PO PRN (22:23)
[2023-12-19] MEDS: SODIUM CHLORIDE 0.9% 1,000 ML IV ONE (22:54)
[2023-12-19 23:31] LABS: INR 1.5 (0.9-1.1); Prothrombin Time 15.8 Seconds (9.0-12.0)
[2023-12-20] MEDS ORDERED: TRIAMCINOLONE ACET 0.1% CR 15 GM TUBE TOP PRN (00:07)
[2023-12-20] MEDS: LORazepam 1 MG TAB PO SCH (00:28)
[2023-12-20] MEDS: MIRTAZAPINE TAB 15 MG TAB PO SCH (00:28)
[2023-12-20] MEDS: WARFARIN SOD 5 MG TAB PO ONE (00:29)
[2023-12-20] MEDS: MELATONIN 3 MG TAB PO SCH (00:29)
[2023-12-20] MEDS: INSULIN ASPART PER UNIT CHARGE SC SCH (01:09)
[2023-12-20 04:42] LABS: Basophils # (auto) 0.01 K/uL (0.00-0.20); Basophils % (auto) 0.1 %; Eosinophils # (auto) 0.09 K/uL (0.00-0.50); Eosinophils % (auto) 1.2 %; Hematocrit (blood only) 40.8 % (42.0-52.0); Hemoglobin 13.8 g/dl (14.0-18.0); Immature Granulocytes # (auto) 0.06 K/uL (0.01-0.20); Immature Granulocytes % (auto) 0.8 %; Lymphocytes # (auto) 2.05 K/uL (1.20-3.40); Mean Corpuscular Hemoglobin 29.4 pg (25.0-34.0); Mean Corpuscular Hgb Conc 33.8 g/dL (32.0-36.0); Mean Corpuscular Volume 86.8 fL (80.0-100.0); Mean Platelet Volume 9.1 fL (9.4-12.4); Monocytes # (auto) 0.63 K/uL (0.11-0.59); Monocytes % (auto) 8.3 %; Neutrophils # (auto) 4.76 K/uL (1.40-6.50); Neutrophils % (auto) 62.6 %; Platelet Count 208 K/uL (130-400); RDW Coefficient of Variation 14.7 % (11.5-14.5); RDW Standard Deviation 47.4 fL (36.4-46.3)
[2023-12-20 04:55] LABS: INR 1.6 (0.9-1.1); Prothrombin Time 16.7 Seconds (9.0-12.0)
[2023-12-20 05:03] LABS: BUN Creatinine Ratio 17.6 (10-20); Calcium 7.9 mg/dl (8.6-10.3); Creatinine Clr Calc Pharmacy 48.4 ml/min; Est GFR (African American) 62.8 ml/min; Est GFR (Non-African American) 54.2 ml/min; Potassium 4.3 mmol/L (3.5-5.1)
[2023-12-20] MEDS ORDERED: LANTUS PER UNIT CHARGE SQ SCH (09:00)
--- OUTSIDE RECORDS SUMMARY | 2023-12-20 09:24 | External Medical Summary ---
Author Name Unknown Address Unknown Organization [id number]:LABORATORY [facility] [address] [place] [address] Laboratory Report Ordering Provider Test Date Status CHIDI MONTOYA 12/19/2023 08:29:00 Final Observation Date Value Abnormality Reference (Units ) Status WBC, Total 12/19/2023 08:29:00 8.34 4.00-10.8 0 (K/uL) Final RBC 12/19/2023 08:29:00 4.17 4.50-5.25 (M/uL) Final Hemoglobin 12/19/2023 08:29:00 12.1 Below low normal 14 .0-16.8 (g/dL) Final HCT 12/19/2023 08:29:00 37.3 Below low normal 40. 0-48.4 (%) Final MCV 12/19/2023 08:29:00 89.4 82.0-99.5 (fL) Final MCH 12/19/2023 08:29:00 29.0 27.0-34.0 (pg) Final MCHC 12/19/2023 08:29:00 32.4 32.0-36.0 (g/dL) Final RDW 12/19/2023 08:29:00 15.2 11.5-15.5 (%) Final Platelets 12/19/2023 08:29:00 182 140-400 (K /uL) Final MPV 12/19/2023 08:29:00 9.3 6.6-11.1 ( fL) Final Performing Location [facility]ORY [facility] [address] [place] [id number]
--- OUTSIDE RECORDS SUMMARY | 2023-12-20 09:24 | External Medical Summary ---
Author Name Unknown Address Unknown Organization [id number]:[facility] [place] [address] [facility] [address] Laboratory Report Ordering Provider Test Date Status CHIDI MONTOYA 12/19/2023 08:29:00 Final Observation Date Value Abnormality Reference (Units ) Status Triglyceride 12/19/2023 08:29:00 88 <=174 ( mg/dL) Final Triglyceride Reference Range s (mg/dL):
<150 Acceptable
150-174 Borderline high
175-499 High
>=500 Very high Cholesterol 12/19/2023 08:29:00 102 <200 (mg /dL) Final Total Cholesterol Reference Ranges (mg/dL):
<200 Desirable
200-239 Borderline high
>=240 High HDL 12/19/2023 08:29:00 28 Below low normal >39 (mg/dL) Final HDL Cholesterol Reference Ra nges (mg/dL):
>=60 High (Desirable)
<50 Low (Undesirable) For Females
<40 Low (Undesirable) For Males NON-HDL CHOLESTEROL 12/19/2023 08:29:00 74 <=159 (mg/dL) Final Non-HDL Cholesterol Referenc e Range (mg/dL):
<100 Target level for high risk ASCVD patient
<130 Optimal for general population
130-159 Near optimal for general population
160-189 Borderline High
190-219 High
>=220 Very High LDL, (calculated) 12/19/2023 08:29:00 56 <= 129 (mg/dL) Final LDL Cholesterol Reference Ra nges (mg/dL):
<70 Target level for high risk ASCVD patient
<100 Optimal for general population
100-129 Near optimal for general population
130-159 Borderline high
160-189 High
>=190 Very high Performing Location [facility] [place] [address] [facility] [address]
--- OUTSIDE RECORDS SUMMARY | 2023-12-20 09:24 | External Medical Summary ---
Author Name Unknown Address Unknown Organization [id number]:[facility] [place] [address] [place] [id number] Laboratory Report Ordering Provider Test Date Status NAYE DRAKE 12/19/2023 08:29:00 Final Standing order for pt/inr. < br/>Please draw pt/inr every 1 to 4 weeks as requested
Results to [facility]

Warfarin Therapy
INR: 2.0-3.0 conventional anticoagulation
INR: 2.5-3.5 high intensity anticoagulation Observation Date Value Abnormality Reference (Units ) Status PT 12/19/2023 08:29:00 19.9 Above high normal 11 .6-15.2 (seconds) Final INR 12/19/2023 08:29:00 1.7 Above high normal 0. 8-1.2 Final Performing Location [facility]ATORY [facility] [address] [place] [id number]
--- OUTSIDE RECORDS SUMMARY | 2023-12-20 09:24 | External Medical Summary ---
Author Name Unknown Address Unknown Organization [id number]:LABORATORY [place] [address] [place] [address] Laboratory Report Ordering Provider Test Date Status CHIDI MONTOYA 12/19/2023 08:29:00 Final Observation Date Value Abnormality Reference (Units ) Status SYNC LEUKOCYTES IN BLOOD BY AUTOMATED COUNT 12/19/2023 08:29:00 8.34 4.00-10.80 (K/uL) Final Segs 12/19/2023 08:29:00 58.0 40.0-75.0 (%) Final Lymphs % 12/19/2023 08:29:00 29.3 18.0-42.0 (%) Final Monos 12/19/2023 08:29:00 11.4 Above high normal 1.0-11.0 (%) Final Eosinophils 12/19/2023 08:29:00 1.1 0.0-6.0 (%) Final Basos 12/19/2023 08:29:00 0.2 0.0-2.0 (%) Final Absolute Segs 12/19/2023 08:29:00 4.84 1.80-7.70 (K/uL) Final Lymphs, absolute 12/19/2023 08:29:00 2.44 1.00-4.80 (K/ul) Final Monos, Abs 12/19/2023 08:29:00 0.95 0.00-1.10 (K/uL) Final Eos, Abs 12/19/2023 08:29:00 0.09 0.00-0.70 (K/uL) Final Basos, Abs 12/19/2023 08:29:00 0.02 0.00-0.20 (K/uL) Final [facility] [place] [address]
--- OUTSIDE RECORDS SUMMARY | 2023-12-20 09:24 | External Medical Summary ---
Author Name Unknown Address Unknown Organization [id number]:[facility] [place] [address] [place] [address] Laboratory Report Ordering Provider Test Date Status CHIDI MONTOYA 12/19/2023 08:29:00 Final Observation Date Value Abnormality Reference (Units ) Status BUN 12/19/2023 08:29:00 22 Above high normal 6-20 (mg/dL) Final Creatinine 12/19/2023 08:29:00 1.3 Above high normal 0.6-1.2 (mg/dL) Final Glomerular filtration rate/1.73 sq M.predicted [Volume Rate/Area] in Serum, Plasma or Blood by Creatinine-based formula (CKD-EPI) 12/19/2023 08:29:00 55 Below low normal >=60 (mL/min) Final eGFR is calculated based on the CKD-EPI 2020 equation. Sodium 12/19/2023 08:29:00 131 Below low normal 135 -146 (mmol/L) Final Potassium 12/19/2023 08:29:00 4.3 3.5-5.1 (m mol/L) Final Cl 12/19/2023 08:29:00 94 Below low normal 98- 107 (mmol/L) Final CO2 12/19/2023 08:29:00 30 22-32 (mmo l/L) Final Anion gap 12/19/2023 08:29:00 7 7-15 (mmol /L) Final Glucose 12/19/2023 08:29:00 120 70-120 (mg /dL) Final Albumin 12/19/2023 08:29:00 2.9 Below low normal 3.8 -5.0 (g/dL) Final AST (Aspartate aminotransferase) 12/19/2023 08:29:00 24 10-50 (U/L) Fin al Alk Phos 12/19/2023 08:29:00 108 35-130 (U/ L) Final Bilirubin, Total 12/19/2023 08:29:00 0.3 <=1 .2 (mg/dL) Final Calcium 12/19/2023 08:29:00 8.0 Below low normal 8.4 -10.2 (mg/dL) Final Protein 12/19/2023 08:29:00 5.5 Below low normal 6.0 -8.3 (g/dL) Final ALT (Alanine aminotransferase) 12/19/2023 08:29:00 21 10-50 (U/L) Vadim leroy Performing Location LABORATORY [place] [address] [facility] [address]
--- OUTSIDE RECORDS SUMMARY | 2023-12-20 09:25 | External Medical Summary ---
Author Name Unknown Address Unknown Organization [id number]:[facility] [place] [address] [facility] [address] Laboratory Report Ordering Provider Test Date Status CHIDI MONTOYA 12/19/2023 08:29:00 Final Observation Date Value Abnormality Reference (Units ) Status HbA1C 12/19/2023 08:29:00 5.8 Above high normal 4. 0-5.6 (%) Final The use of HbA1c to monitor glycemic status is based on normal hemoglobin and HbA composition. This test should not be used in patients with abnormal hemoglobin that affects the half life of the red blood cell or the in vivo glycation rates. Glucose, estimated average 12/19/2023 08:29:00 120 <126 (mg/dL) Final Performing Location [facility] [place] [address] [facility] [address]
--- OUTSIDE RECORDS SUMMARY | 2023-12-20 09:25 | External Medical Summary | Continuity of Care Document ---
Author Name Unknown Organization [id number] Address [address] [place] [phone] Care Team Providers Care Marketing Recruiter Name Role Phone Sandeep Dhillon Primary Care Physician [id number] [id number] Date(s): 12/14/23 - 12/14/23 [facility] [address] [place] [id number] Medicine [address] [place] [address] Encounter Diagnosis Diabetes(Discharge Diagnosis) - 12/14/23 Peripheral vascular disease(Discharge Diagnosis) - 12/14/23 Diabetic foot ulcer associated with type 2 diabetes mellitus, with fat layer exposed(Discharge Diagnosis) - 12/14/23 Discharge Disposition: Home or Self Care Attending Physician: SERGIO Tran Christina L Referring Physician: DO Dhillon Scott A Allergies, Adverse Reactions, Alerts Substance Criticality Severity Reaction Reaction Severity Status nitrofurantoin n/a Activ e streptomycin n/a Active sildenafil n/a Active macrolide antibiotics Unable to assess criticality Moderate unknown Active Mold Unable to assess criticality Moderate Sneeze Active ketolides n/a Active Hay Unable to assess criticality Moderate Watery eye Active Assessment and Plan Extracted from: Title:Follow Up Visit Author:SERGIO Tran, Aniyah Kimball Date:12/14/23 1.Diabetes 2.Peripheral vascular disease 3.Diabetic foot ulcer associated with type 2 diabetes mellitus, with fat layer exposed As I discussed abovecertainly can provide amputation as a means to care for patientagain without overt signs of osteomyelitis or infectionI feel we are doing a disservice to this patient by performing amputations. This is especially notable on the left side due to his significant cavovarus foot deformityas well as his history of his previous left fifth toe amputationand partial fifth metatarsal resection. I think the advisable surgery would be a transmetatarsal amputationwhich I am happy to performpatient not agreeable to.. Right sidecertainly can performa third toe amputation,again without overt signs of cellulitis/infection/osteomyelitisI do feel there is been some improvement since previous follow-up. I think if things takea turn for the worse certainly can perform the amputation. He really responded quite favorably tothe TheraSkin grafts which were applied to his great toesthese ulcerations had very similar appearance to theulcerscurrently presentI thinkgiven patient's age medical comorbiditiesand use of blood thinner medicationscertainly something to considerthese would not be performed under any type of anesthesiathey would be applied in the surgical center for sterility,I think it is worth attemptingseeing how much progress patient hadand of note bilateral great toe ulcers have remained healed. Patient is agreeablewe will have him follow-up forpreop evaluation. I spent 5 minute planning including prepping note and chart review. I spent 19 minute [id number] interaction with patient addressing issuesdiscussed in visit today. I spent 5 minute time in postop visitplanning including note finishing in depart process. Total time spent on patient visit 29 minutes. Medications acetaminophen 325 mg oral capsule Start: 05/17/22 3:15:00 PM EST, 650 Unknown, Unknown Start Date: 05/17/22 Status: Ordered acetaminophen-HYDROcodone 325 mg-5 mg oral tablet Start: 10/24/22 1:31:00 PM EDT, Refills: 0 Start Date: 10/24/22 Status: Ordered acetaminophen-HYDROcodone 325 mg-5 mg oral tablet Start: 04/13/20 3:41:00 PM EST, Refills: 0 Start Date: 04/13/20 Status: Ordered amiodarone 200 mg oral tablet Start: 04/13/20 3:42:00 PM EST Start Date: 04/13/20 Status: Ordered BD AUTOSHIELD DUO NDL [id number] Start: 07/25/22 1:33:00 PM EDT, BD AUTOSHIELD DUO NDL [id number] Start Date: 07/25/22 Status: Ordered bisacodyl 10 mg rectal suppository Start: 12/06/22 11:49:00 AM EDT Start Date: 12/06/22 Status: Ordered cefTRIAXone 1 g injection Start: 07/25/22 1:33:00 PM EDT Start Date: 07/25/22 Status: Ordered clopidogrel 75 mg oral tablet Start: 11/03/23 3:09:00 PM EDT Start Date: 11/03/23 Status: Ordered clotrimazole 1% topical cream Start: 12/06/22 11:47:00 AM EDT, 1 appl, topical, bid Start Date: 12/06/22 Status: Ordered Colace Start: 05/17/22 3:20:00 PM EST, 100 mg =, bid Start Date: 05/17/22 Status: Ordered doxycycline hyclate 100 mg oral tablet Start: 01/04/23 12:57:00 PM EDT, 1 tab, PO, bid Start Date: 01/04/23 Status: Ordered gabapentin 300 mg oral capsule Start: 07/25/22 1:33:00 PM EDT, tid Start Date: 07/25/22 Status: Ordered Lantus Vial 100 units/mL subcutaneous solution Start: 05/17/22 3:21:00 PM EST, 10 unit =, subQ, qhs Start Date: 05/17/22 Status: Ordered Lasix 40 mg oral tablet Start: 10/24/22 1:31:00 PM EDT Start Date: 10/24/22 Status: Ordered loratadine Start: 12/06/22 11:50:00 AM EDT, 10 mg = Start Date: 12/06/22 Status: Ordered LORazepam 0.5 mg oral tablet Start: 12/06/22 11:51:00 AM EDT Start Date: 12/06/22 Status: Ordered magnesium oxide Start: 12/06/22 11:52:00 AM EDT, 400 mg =, Daily Start Date: 12/06/22 Status: Ordered methenamine hippurate 1 g oral tablet Start: 11/03/23 3:09:00 PM EDT Start Date: 11/03/23 Status: Ordered METOPROLOL SUCC ER 25 MG TAB Start: 11/03/23 3:09:00 PM EDT, METOPROLOL SUCC ER 25 MG TAB Start Date: 11/03/23 Status: Ordered Metoprolol Succinate ER 25 mg oral tablet, extended release Start: 07/25/22 1:36:00 PM EDT Start Date: 07/25/22 Status: Ordered midodrine 2.5 mg oral tablet Start: 03/06/23 1:22:00 PM EST Start Date: 03/06/23 Status: Ordered MiraLax Start: 12/06/22 11:52:00 AM EDT, 17 g = Start Date: 12/06/22 Status: Ordered mirtazapine 30 mg oral tablet Start: 12/06/22 12:09:00 PM EDT Start Date: 12/06/22 Status: Ordered mometasone 50 mcg/inh nasal spray Start: 07/25/22 1:33:00 PM EDT Start Date: 07/25/22 Status: Ordered multivitamin with minerals Start: 12/06/22 12:10:00 PM EDT, 1 tab, PO, Daily Start Date: 12/06/22 Status: Ordered Nasonex Start: 12/06/22 11:53:00 AM EDT Start Date: 12/06/22 Status: Ordered nystatin 100,000 units/g topical powder APPLY THREE TIMES DAILY TO THE LEFT GROIN UNTIL HEALING COMPLETE Start Date: 05/17/22 Status: Ordered [place] Moisturizing Mouth oral spray Start: 12/06/22 11:53:00 AM EDT Start Date: 12/06/22 Status: Ordered Ocuvite Start: 05/17/22 3:23:00 PM EST Start Date: 05/17/22 Status: Ordered oxyCODONE Start: 03/06/23 1:22:00 PM EST, 5 mg =, q12h, Refills: 0, as needed, for pain Start Date: 03/06/23 Status: Ordered Oyster Shell Calcium with Vitamin D Start: 12/06/22 12:08:00 PM EDT Start Date: 12/06/22 Status: Ordered Santyl 250 units/g topical ointment Start: 07/25/22 1:33:00 PM EDT Start Date: 07/25/22 Status: Ordered Sennosides Start: 12/06/22 12:09:00 PM EDT, Sennosides, 8.6 = mg Start Date: 12/06/22 Status: Ordered Tubersol 5 tuberculin units/0.1 mL intradermal solution Start: 12/06/22 12:10:00 PM EDT Start Date: 12/06/22 Status: Ordered warfarin 1 mg oral tablet Start: 12/06/22 11:55:00 AM EDT, 2 tab, GIVE BY MOUTH AT BEDTIME EVERY MONDAY,MONDAY,MONDAY, AND MONDAY FOR A.FIB Start Date: 12/06/22 Status: Ordered warfarin 1 mg oral tablet Start: 12/06/22 11:54:00 AM EDT, 1 tab, PO, GIVE 1TABLET BY MOUTH AT BEDTIME EVERY MONDAY,MONDAY,MONDAY FOR A.FIB Start Date: 12/06/22 Status: Ordered zolpidem 5 mg oral tablet Start: 07/25/22 1:33:00 PM EDT Start Date: 07/25/22 Status: Ordered Mental Status 12/14/23 Barriers to Learning one year None evide nt Mandatory Health Literacy Documentation Yes Health Literacy Communication Barriers N ever Primary Language Senegalese Problem List Condition Confirmation Course Effective Dates Status Health St atus Informant Amputated toe of right foot Confirmed Active Diabetes Confirmed Active Diabetic foot ulcer associated with type 2 diabetes mellitus, with fat layer exposed Confirmed Active Proximal humerus fracture Confirmed Active Heart disease Confirmed Active S/P foot surgery, left Confirmed Active High blood pressure Confirmed Active Kidney disease Confirmed Active Cancer Confirmed Active Tinea unguium Confirmed Active Toe pain Confirmed Active Peripheral vascular disease Confirmed Active Hepatitis B Confirmed Active Diagnosis Diagnosis Type Effective Dates Health Status Clinical Service Informant Diabetic foot ulcer associated with type 2 diabetes mellitus, with fat layer exposed Discharge Diagnosis 12/14/23 Non-Specified Diabetes Discharge Diagnosis 12/14/23 Non-Specified Peripheral vascular disease Discharge Diagnosis 12/14/23 Non-Specified Social History Social History Type Response Smoking Status Never smoked cigaret jeremias Sex Male Sex Representation Male (finding) Ortho Outpt Note * SERGIO Tran Christina L: PERFORM Event Display: Ortho Outpt Note Authored Date: [id number] Chief Complaint discuss skin grafts b/l foot Primary Care Provider DO Dhillon Scott A Subjective Patient is a very pleasant 88-year-old male presenting todayfor follow-up of his feet history of diabetes and arterial disease. -Patient last seen by the wound care center on November 28where he was being treated for sacral ulcersdiabetic ulcer right toe. At that visitthat the toes were being dressed with Adaptic and Aquacel he was using Darco shoesand a modified slipper on the other foothe did see Dr. Ulrich and underwent an angiogram with thempop balloon arthrectomyin May due to worsening appearance of the wounds of the left footx-rays were performedand were negative for osteoI was not recommending a toe amputation which they makenote of at his follow-up wound care visit. Patient notably has a wound of the right third toeand awound of the leftfoot -Patient presents to me for follow-up evaluation for ulcers of both feet, right footthird toehistory ofright second toe amputation,left foot second toeand left footfourth toe. History of previous fifth toe amputation and partial fifth metatarsal resection. -I do respect wound caresconcerns that they would like me to perform amputations of all of his digitsbecause they feel that they can palpate bonehowever I had a very long discussion with patientthatif I perform that on the left footthat would include amputating the secondas well as the fourth digitpatient has already underwent 1/5 toe amputation and partial fifth metatarsal resectionthat would yield him with essentially a nonfunctional left footthat he would likely not be able to bearproper weight on and this is nota type of amputationresult that yieldsideal offloading for patient's gait. In addition the left side has a significant cavovarus deformityobviously worsened by the fifth partial fifth metatarsal resection. I discussed with patient that if he does require toe amputation on the left sidethis should be a transmetatarsal amputation which would yield him with the most stable foot typethat would be most easilyoffloaded. He is not yet agreeableto a transmetatarsal amputation. With respect to the right sideamputation of the third toewould benot the greatest option but certainly something that could be performedif patient has significant cellulitis or osteomyelitis. The end result would yield him with somewhat of a stable foot typealthough he still would not have his left second and third toe and although not idealcertainly could be amenable to some offloadingcertainly more ideal than his left foot. Review of Systems Diabetes, heart disease, kidney disease, high blood pressure Objective Physical Exam Problem focused bilateral feet: Dorsalis pedis pulse palpable1 out of 4, posterior tibial pulse nonpalpablesecondary to known arterial disease but underwentvascular procedure,capillary fill time less than 3 secondsskin turgor is essentially normal there iswarmth to distal extremitiesmild blue discoloration secondary to known vasculardiseaseand recently underwent a repeatvascular procedure. Light touch absent to distal extremities, proprioception absent distal extremities,monofilament test absent to distal extremities. Incision present over lateral footwell-healed Right foot third toe ulcermeasures 0.5 cmwidth by0.8 cmlengthgranular tissue over ulceration clinical photo in chartno overt signs of infectionand perprevious x-rays no osteomyelitis. Left foot second toe ulcerationmeasures 1 cmlength byroughly 1 cm withfully granular wound base I do not appreciate any visible bone. Left foot fourth toe ulcer along medial aspect of digitmeasures 1.3 cm lengthby 1 cm withgranular tissue present. Clinical photo in chart. I appreciate improvement from previous follow-up visit. History of right second toe amputation well-healed Toenails of digits1, 3, 4, 5 right footand digits1 through 4 left footcared for at October visit X-ray dictation 3 views left foot:Taken at March 06, 2023 visit Images 2023-12-14 11:13:01 2023-12-14 11:13:10 2023-12-14 11:13:27 Assessment/Plan 1.Diabetes 2.Peripheral vascular disease 3.Diabetic foot ulcer associated with type 2 diabetes mellitus, with fat layer exposed As I discussed abovecertainly can provide amputation as a means to care for patientagain without overt signs of osteomyelitis or infectionI feel we are doing a disservice to this patient by performing amputations. This is especially notable on the left side due to his significant cavovarus foot deformityas well as his history of his previous left fifth toe amputationand partial fifth metatarsal resection. I think the advisable surgery would be a transmetatarsal amputationwhich I am happy to performp atient not agreeable to.. Right sidecertainly can performa third toe amputation,again without overt signs of cellulitis/infection/osteomyelitisI do feel there is been some improvement since previous follow-up. I think if things takea turn for the worse certainly can perform the amputation. He really responded quite favorably tothe TheraSkin grafts which were applied to his great toesthese ulcerations hadvery similar appearance to theulcerscurrently presentI thinkgiven patient's age medical comorbiditiesand use of blood thinner medicationscertainly something to considerthese would not be performed under any type of anesthesiathey would be applied in the surgical center for sterility,I think it is worth attemptingseeing how much progress patient hadand of note bilateral greattoe ulcers have remained healed. Patient is agreeablewe will have him follow-up forpreop evaluation. I spent 5 minute planning including prepping note and chart review. I spent 19 [id number] interaction with patient addressing issuesdiscussed in visit today. I spent 5 minute time in postop visitplanning including note finishing in depart process. Total time spent on patient visit 29 minutes. Electronic Signature on File Electronically Reviewed/Signed by: Karol Tran DPM Author Signature Dt/Tm:12/14/2023 11:32 AM Division of Sports Medicine CLR Patient Care team information Care Team Personnel Name: SERGIO Tran, Karol Kimball Position: Physician - Podiatry Member Role: Lifetime Relationship Address: [address] [facility] [address] [place] [id number] [place] Name: DO Dhillon Scott A Position: Referring DIRECT Member Role: Primary Care Provider Address: [address] [place] [address] [place] Care Team Related Persons Name: GINO LOPEZ
--- OUTSIDE RECORDS SUMMARY | 2023-12-20 09:25 | External Medical Summary | Summary of Care ---
Author Name Unknown Organization [facility] Address [address] [place] [address] Phone [phone] Care Team Providers Care Retread Mold Operator Name Role Phone Vianey Mendez MD Primary Care Provider [phone] Reason for Visit * Reason Onset Date Comments Medication Refill 12/12/2023 Encounter Details Date Type Department Care Team (Late st Contact Info) Description 12/12/2023 Refill General Internal Medicine [facility] [address] [facility] [place], [place] [id number] Vianey Mendez MD [address] [place] [address] Type 2 diabetes mellitus with hemoglobin A1c goal of less than 8.0% ([facility]) Allergies Active Allergy Reactions Criticality Noted Date Comments Ampicillin Rash Medium 02/28/2023 Losartan Potassium Flushing Low 01/06/2010 Environmental 07/22/2002 Hayfever, dust, mold Macrolides And Ketolides 11/27/2017 Nitrofurantoin Diarrhea,Nausea/vomi t ing 04/27/2022 Sildenafil 11/27/2017 Streptomycin 11/27/2017 Sulfites 12/05/2009 Sulfur Anaphylaxis High 08/21/2023 Sulfur trioxide Vasopressin 11/27/2017 documented as of this encounter (statuses as of 12/14/2023) Medications Medication Sig Dispensed Refills Start Date End Date Status Acetaminophen 325 MG Oral Tablet Take 1 Tablet by mouth every 6 hours as needed for Pain. Active Multiple Vitamins-Minerals (OCUVITE ADULT FORMULA) CAPS Take 1 Cap by mouth daily. 30 Cap 8 Active loratadine (CLARITIN) 10 MG TabletIndications: Allergic rhinitis, unspecified seasonality, unspecified trigger TAKE 1 TAB BY MOUTH DAILY. 30 Tab 5 8 Active Magnesium Oxide (MAG-OX 400) 400 MG TabletIndications: Heart failure, etiology unknown (HCC) Take 1 Tab by mouth daily. 30 Tab 8 Active Calcium Carbonate-Vitamin D (CALCIUM-D) 600-400 MG-UNIT per tablet Take 1 Tab by mouth 2 times a day. Active Docusate Sodium 100 MG Oral Capsule (Colace) Take 1 Capsule by mouth in the morning and 1 Capsule before bedtime. 120 Capsule 3 Active Mometasone Furoate 0.1 % External Solution (Elocon) Apply topically to affected area daily. To affected area. 30 mL 3 Active Stress Formula (w/ Minerals) Oral Tablet Take 1 Tablet by mouth in the morning. Active Melatonin 5 MG Oral TabletIndications: Chronic insomnia Take 1 Tablet by mouth at bedtime. 30 Tablet 4 Active Additional Information Patient taking differently:5 mg Oral HS,Takes 2 tablets at bedtime, Reported on 12/05/2023 Mirtazapine 30 MG Oral Tablet (Remeron)Indicatio ns:Chronic insomnia,Depressio n with anxiety Take 1 Tablet by mouth every night at bedtime. 90 Tablet 3 4 Active Midodrine HCl 2.5 MG Oral Tablet (Proamatine)Indica tions:Syncope and collapse Take 1 Tablet by mouth in the morning and 1 Tablet before bedtime. 180 Tablet 3 4 Active Metoprolol Succinate ER 25 MG Oral Tablet Extended Release 24 Hour (toPROL XL)Indications:Hea rt failure, systolic, due to CAD (HCC) Take 1 Tablet by mouth in the morning. 90 Tablet 3 4 Active Amiodarone HCl 200 MG Oral Tablet (Cordarone)Indicat ions:Chronic atrial fibrillation (HCC) Take 1 Tablet by mouth in the morning. 90 Tablet 1 4 Active Ketoconazole 2 % External Shampoo (Nizoral)Indicatio ns:Seborrheic dermatitis of scalp Lather into scalp. Leave in for 5 minutes, then rinse. Do this 2-3 times per week 120 mL 5 4 Active Clobetasol Propionate 0.05 % External SolutionIndication s:Seborrheic dermatitis of scalp Apply several drops to scalp once daily 50 mL 5 4 Active Methenamine Hippurate 1 GM Oral Tablet (Hiprex) Take 1 Tablet by mouth in the morning. 4 Active Nystop 700416 UNIT/GM External Powder 4 Active oxyCODONE HCl 5 MG Oral Tablet (Oxy IR) Take 1 Tablet by mouth every 12 hours as needed. 3 Active Zolpidem Tartrate 5 MG Oral Tablet (Ambien)Indication s:Chronic insomnia Take 1 Tablet by mouth at bedtime as needed for Sleep. 90 Tablet 4 Active Sure Comfort Insulin Syringe 30G X 1/2" 0.5 ML (Insulin Syringe-Needle U-100)Indications: Type 2 diabetes mellitus with hemoglobin A1c goal of less than 8.0% ([facility]) Use once daily with Lantus 100 Each 1 4 Active OneTouch Ultra In Vitro Strip (Glucose Blood)Indications: Type 2 diabetes mellitus with hemoglobin A1c goal of less than 8.0% ([facility]) TEST 2 TIMES A DAY DIRECTED 200 Strip 3 4 Active Unilet ComforTouch Lancet Use to test blood sugar twice daily. 200 Each 3 4 Active Furosemide 40 MG Oral Tablet (Lasix)Indications :Heart failure, systolic, due to CAD ([facility]) Take 1 Tablet by mouth in the morning. 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 270 Capsule 3 4 Active Warfarin Sodium 1 MG Oral Tablet (Coumadin)Indicati ons:Chronic atrial fibrillation (HCC) Take one tab by mouth daily, OR Take as directed by anticoagulation pharmacist 90 Tablet 2 4 Active Warfarin Sodium 2 MG Oral Tablet (Coumadin) Take 1 tablet 3 times weekly OR as directed by anticoagulation pharmacist 40 Tablet 3 4 Active Potassium Chloride Zofia ER 20 MEQ Oral Tablet Extended ReleaseIndications :Hypokalemia TAKE 1 TABLET BY MOUTH DAILY IN THE MORNING 90 Tablet 1 4 Active Clopidogrel Bisulfate 75 MG Oral Tablet (pLAVix) Take 1 Tablet by mouth in the morning. 90 Tablet 4 Active LORazepam 1 MG Oral Tablet (Ativan)Indication s:Chronic insomnia,Depressio n with anxiety Take 1 Tablet by mouth at bedtime as needed for Anxiety. 90 Tablet 4 Active Bisacodyl 10 MG Rectal Suppository (Dulcolax)Indicati ons:Chronic constipation Administer 1 Suppository into the rectum daily as needed for Constipation. 30 Suppository 4 Active Insulin Glargine 100 UNIT/ML Subcutaneous Solution (Lantus)Indication s:Type 2 diabetes mellitus with hemoglobin A1c goal of less than 8.0% (HCC) Inject 16 Units under the skin in the morning. 15 mL 2 4 Active Insulin Glargine 100 UNIT/ML Subcutaneous Solution (Lantus)Indication s:Type 2 diabetes mellitus with hemoglobin A1c goal of less than 8.0% (HCC) Inject 16 Units under the skin in the morning. 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 [...] Amputation of toe of right foot 06/10/2020 Diabetic polyneuropathy asso ciated with diabetes mellitus [...] as of this encounter (statuses as of 12/14/2023) Resolved Problems Problem Noted Date Diagnosed Date Resolved Date Osteomyelitis of fifth toe of left foot 03/02/2023 04/27/2023 Decubitus ulcer of left heel, stage 4 09/22/2022 03/02/2023 Atherosclerosis of [place] artery of extremity 07/01/19 23 04/27/2023 Chronic kidney disease, stage 3b 10/06/2020 04/27/2023 Overview: Per CKD protocol Stage 3a chronic kidney disease 03/02/2020 12/07/2023 Overview: Per CKD protocol - Per CKD protocol Kidney disease, chronic, sta [...] TRUNK- excised 07/29/2008 09/03/2008 05/08/2017 Overview: Dr. Cloin Hypertrophy of breast 11/27/20072011 Shortness of breath [...] arachnoid cyst. 3. Left sinus disease. 07/28 [facility] ENT F/U: MRI of brain with and [...] neuroma Will recommend an ENT appointment with [facility] ENT Dr. Ponce Stress ECHO 2004- negative [...] as of this encounter (statuses as of 12/14/2023) Immunizations Name Administration Dates Next Due COVID-19 mRNA, LNP-s, No Pre serve, 2-Dose Series (Pfizer) 09/07/2021,02/19/2021,07/03/2020,06/10 COVID-19, LNP-s, No Preserve , Fawad-sucrose, Ages [...] money to get more. Never true 06/10/2020 Utilities Answer Date Recorded Do you have trouble paying y our heating, water, or electric bill? (Adult - for ages 18 years and over) Not on file 10/10/2023 Is your family able to pay t he heat, water, or electric bill? (Household - for ages 0-17 years) Not on file 10/10/2023 Does your family have access to good internet? (Household - for ages 0-17 years) Not on file 10/10/2023 Social Connections Answer Date Recorded How often do you feel lonely or isolated from those around you? (Adult - for ages 18 years and over) Not on file 10/10/2023 Sex and Gender Information Value Date Recorded Sex Assigned at Male 11/05/2018 12:56 PM EDT Gender Identity Male 11/05/2018 12:56 PM EDT Sexual Orientation Straight 11/05/2018 12 :56 PM EDT Job Start Date Occupation Industry Not on file Not on file Not on file documented as of this encounter Miscellaneous Notes * Telephone Encounter - Delroy Sherwood, [facility] - 12/14/2023 7:09 AM EDTSigned Prescriptions: Disp Refills Insulin Glargine 100 UNIT/ML Subcutaneous *15 mL 2 Sig: Inject 16 Units under the skin in the morning.Authorizing Provider: Shahid MENDEZ User: DELROY SHERWOOD * Telephone Encounter - Bridger Bauer, agribusiness professor - 12/12/2023 2:09 PM EDT Please refuse pending prescription(s) for Insulin Glargine 100 UNIT/ML Subcutaneous. Medication hasremaining refills at pharmacy Please advise. Did you pend patient's preferred pharmacy and medication before forwarding?yes Pharmacy: [facility]- [place] Pending Prescriptions: Disp Refills Insulin Glargine 100 UNIT/ML Subcutaneous*15 mL 2 Sig: Inject 16 Units under the skin in the morning. Last Visit: 12/05/2023 (in office), Visit date not found (telemedicine) Next Visit: 01/29/2024 If no future appointments scheduled, and last appointment is greater than a year ago, please schedule patient for a follow-up appointment Last date the medication was ordered: 06/01/23 Is this request for a controlled substance?No Urine Drug Screen:No results found. However, due to the size of the patient record, not all encounters were searched. Please check Results Review for a complete set of results. Patient Phone Numbers Labs: Lab Results Component Value Date/Time CREAT 1.3 (H) 10/05/2023 01:37 PM CREAT 1.3 (H) 04/01/2020 02:09 PM POTASSIUM 4.2 10/05/2023 01:37 PM POTASSIUM 3.9 04/01/2020 02:09 PM TSH 3.19 04/28/2023 05:25 AM TSH 3.66 09/30/2019 03:07 PM LDLCALC 81 12/31/2021 03:32 PM LDLCALC 83 09/30/2019 03:07 PM LDLDIRECT 95 06/29/2023 10:48 AM LDLDIRECT NOT APPLICABLE 09/30/2019 03:07 PM LDLDIRECT 100 06/26/2017 03:59 PM ALT 25 10/05/2023 01:37 PM ALT 15 04/01/2020 02:09 PM HGBA1C 5.9 (H) 06/29/2023 10:48 AM HGBA1C 6.2 (H) 01/31/2020 03:10 PM Thank you, Bridger Bauer Cask Maker I [facility] ([facility]) 12/12/2023,2:15 PM documented in this encounter Plan of Treatment Upcoming Encounters Date Type Department Care Team (Late st Contact Info) Description 12/19/2023 7:00 AM EDT Laboratory Lab Mobile Phlebotomy [facility] [address] [place] [place] [address] [facility], [facility] [address] [place] [address] 12/20/2023 6:00 AM EDT Anticoagulation [facility], Gordon Kilpatrick [address] [place] [address] [place] [address] [facility], [address] [place] [address] 01/02/2024 7:00 AM EDT Laboratory Lab Mobile Phlebotomy [facility] [address] [place] [address] [facility], [facility] [address] [place] [address] 01/29/2024 2:20 PM EDT Office Visit General Internal Medicine [facility] [place] [address] [place] [address] Vianey Mendez MD [address] [place] [address] 04/02/2024 7:00 AM EST Laboratory Lab Mobile Phlebotomy [facility] [address] [place] [address] [facility], [facility] [address] [place] [address] 04/26/2024 8:15 AM EST Office Visit MOHS Surgery [facility] [place] [address] [place] [address] Inna Salguero MD 200 [facility], [place] [address] 07/01/2024 7:00 AM EDT Laboratory Lab Mobile Phlebotomy [facility] [address] [place] [address] Mv[facility], Gml [facility] Draw [address] [facility] [place], [place] [address] 10/16/2024 1:15 PM EDT Office Visit Hematology/Oncology [facility] [place] [address] [facility] [place], [place] [address] Bethel Eng MD [address] [facility] [place], [place] [address] Scheduled Procedures Name Priority Associated Diagnoses Date/Ti me COLONOSCOPY FLEXIBLE PROXIMAL DIAGNOSTIC Recall History of colon polyps Health Maintenance Due Date Last Done Comments DXA Scan 1935 Adult Wellness Visit 2001 Albumin/Creatinine Ratio 01/30/2021 020, 02/27/2017, 11/11/2015, Additional history exists Depression Monitoring 06/10/2021 06/10/2020 Diabetic Eye Exam 11/16/2022 11/16/2021, , 10/09/2019, Additional history exists COVID-19 Vaccine ( season) 2022 02/11/2022, 02/11/2022, 09/07/2021, Additional history exists Influenza Vaccine (FLU shot) (#1) 2023 03/04/2023, 02/04/2022, 12/31/2021, Additional history exists HbA1c 12/30/2023 06/29/2023, 03/24, 03/30/2023, Additional history exists Diabetic Foot Exam 06/21/2024 06/21/2023 (D one elsewhere), 01/31/2020, 09/12/2018, Additional history exists CKD PHOS USE SMARTSET 07816 06/28/2024 03/0 10/2023, 05/20/2022, 02/05/2021, Additional history exists CKD HGB USE SMARTSET 01258 10/04/202410/04, 10/05/2023, 08/22/2023, Additional history exists Colonoscopy 05/13/2025 05/13/2022, 0705/2018, 07/18/2017 DTaP,Tdap,and Td Vaccines (3 - Td or Tdap) 11/05/2028 11/05/2018, 08/10/2007, 08/10/2007, Additional history exists Hepatitis B Vaccine Aged Out 01/24/2002 No longe r eligible based on patient's age to complete this topic Pneumococcal Vaccine: 65+ Years Completed 03/07/2016, 06/22/2000, 02/11/1993 Zoster Vaccines Completed 01/26/2021, 10/23, 05/02/2006 HPV (Gardasil) Vaccine Aged Out No lo nger eligible based on patient's age to complete this topic MENINGOCOCCAL (MENACTRA/MENVEO) Aged Out No longer eligible based on patient's age to complete this topic documented as of this encounter Medical Devices Not on filedocumented as of this encounter Visit Diagnoses Diagnosis Type 2 diabetes mellitus with hemoglobin A1c goal of less than 8.0% (HCC) documented in this encounter Care Teams Retread Mold Operator Relationship Specialty Start Date End Date Vianey Mendez MD [address] [facility] [place] [address] PCP - General Internal Medicine 01/11/21 documented as of this encounter
--- OUTSIDE RECORDS SUMMARY | 2023-12-20 09:25 | External Medical Summary | Summary of Care ---
Author Name Unknown Organization [facility] Address [address] [facility] [place] [place] [address] Phone [phone] Care Team Providers Care Supervisor Dog License Officer Name Role Phone Vianey Matamoros MD Primary Care Provider [phone] Reason for Visit * Reason Comments eRx-Medication Refill Encounter Details Date Type Department Care Team (Late st Contact Info) Description 12/12/2023 Refill General Internal Medicine [facility] [address] [facility] [place] [id number] Vianey Matamoros MD 200 [facility] [place] [address] Type 2 diabetes mellitus with hemoglobin A1c goal of less than 8.0% ([facility]) Allergies Active Allergy Reactions Criticality Noted Date [...] Cap 8 Active loratadine (CLARITIN) 10 MG TabletIndications:A [...] the morning. Active Melatonin 5 MG Oral TabletIndications:C hronic insomnia Take 1 Tablet by mouth at bedtime. 30 Tablet 4 Active Additional Information Patient taking differently:5 mg Oral HS,Takes 2 tablets at bedtime, Reported on 12/05/2023 Mirtazapine 30 MG Oral Tablet (Remeron)Indication s:Chronic [...] mouth in the morning. 4 Active Nystop 285881 UNIT/GM External Powder 4 Active oxyCODONE HCl [...] A1c goal of less than 8.0% ([facility]) Use once daily with Lantus 100 Each 1 4 Active OneTouch Ultra In Vitro Strip (Glucose Blood)Indications:T ype 2 diabetes mellitus with hemoglobin A1c goal of less than 8.0% ([facility]) TEST 2 TIMES A DAY DIRECTED 200 Strip 3 4 Active Unilet ComforTouch Lancet Use to test blood sugar twice daily. 200 Each 3 4 Active Furosemide 40 MG Oral Tablet (Lasix)Indications: Heart failure, systolic, due to CAD ([facility]) Take 1 Tablet by mouth in the morning. 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 90 Tablet 4 Active LORazepam 1 MG Oral Tablet (Ativan)Indications :Chronic insomnia,Depression with anxiety Take 1 Tablet by mouth at bedtime as needed for Anxiety. 90 Tablet 4 Active Bisacodyl 10 MG Rectal Suppository (Dulcolax)Indicatio ns:Chronic constipation Administer 1 Suppository into the rectum daily as needed for Constipation. 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 3. Left sinus disease. 07/28 [facility] ENT F/U: MRI of brain with and [...] Will recommend an ENT appointment with [facility] ENT Dr. Ponce Stress ECHO 2003- negative [...] external auditory canal 01/02/2002 03/11/2021 Overview: Dr Trveino ICD-10 update of inactive term Seborrheic keratosis, Rt thigh 10/27/00 01/02/2002 05/08/2017 Overview: Dr Jones Seborrheic keratsejal, Lt back 05/21/01 01/02/2002 05/08/2017 Overview: Dr Kozminsky Seborrheic keratosis, Lt abdomen 05/21/01 01/02/2002 05/08/2017 [...] mRNA, LNP-s, No Pre serve, 2-Dose Series (Provasculon) 09/07/2021,02/19/2021,07/03/2020,06/10 COVID-19, LNP-s, No Preserve , Fawad-sucrose, Ages 12+ (Provasculon) 07/03/2020,06/10/2020 Covid-19, Mrna, Lnp-s, Pf, B ivalent, [...] encounter Miscellaneous Notes * Telephone Encounter - Ju Sherwood [facility] - 12/14/2023 7:09 AM EDTRefused Prescriptions: Disp Refills Lantus 100 UNIT/ML Subcutaneous Solution (*30 mL 2 Sig: INJECT 16 UNITS SUBCUTANEOUSLY EVERY MORNING; DISCARD VIAL AFTER 28 DAYS Refused By: JU SHERWOOD Reason for Refusal: Duplicate Request * Telephone Encounter - Bridger Bauer, briquette operator - 12/12/2023 2:16 PM EDT Please refuse pending prescription(s) for Insulin Glargine 100 UNIT/ML Subcutaneous Solution (Lantus) . Medication has refills at pharmacy Please advise. Did you pend patient's preferred pharmacy and medication before forwarding?yes Pharmacy: [facility]- [place] Pending Prescriptions: Disp Refills Lantus 100 UNIT/ML Subcutaneous Solution *30 mL 2 Sig: INJECT 16 UNITS SUBCUTANEOUSLY EVERY MORNING; DISCARD VIAL AFTER 28 DAYS Last Visit: 12/05/2023 (in office), Visit date [...] 01/31/2020 03:10 PM Thank you, Bridger Bauer Edge Trimmer Mechanic I [facility] ([facility]) 12/12/2023,2:16 PM documented in this encounter Plan of Treatment Upcoming Encounters Date Type Department Care Team (Late st Contact Info) Description 12/19/2023 7:00 AM EDT Laboratory Lab Mobile Phlebotomy [facility] [address] [place], [place] [address] [facility], G[facility] Home Draw [address] [place] [address] 12/20/2023 6:00 AM EDT Anticoagulation [facility], Gordon Kilpatrick [address] [place] [address] [place] [address] [facility], [address] [address] 01/02/2024 7:00 AM EDT Laboratory Lab Mobile Phlebotomy [facility] [address] [place] [address] M[facility], Gml [facility] Draw [address] [place] [address] 01/29/2024 2:20 PM EDT Office Visit General Internal Medicine [facility] [address] [place] [address] Vianey Matamoros MD [address] [place] [address] 04/02/2024 7:00 AM EST Laboratory Lab Mobile Phlebotomy [facility] [address] [place], [place] [address] [facility], G[facility] Draw [address] [place], [place] [address] 04/26/2024 8:15 AM EST Office Visit MOHS Surgery [facility] 200 [facility] [place] [address] Inna Salguero MD [address] [place] [address] 07/01/2024 7:00 AM EDT Laboratory Lab Mobile Phlebotomy [facility] [address] [place], [place] [address] [facility], Gml [facility] Draw [address] [place] [address] 10/16/2024 1:15 PM EDT Office Visit Hematology/Oncology [facility] [address] [facility] [place], [place] [address] Bethel Eng MD [address] [place] [address] Scheduled Procedures Name Priority Associated Diagnoses Date/Ti [...] 12/31/2021, Additional history exists HbA1c 12/30/2023 06/29/2023, 1204/2022, 03/30/2023, Additional history exists Diabetic Foot Exam 06/21/2024 06/21/2023 (D one elsewhere), 01/31/2020, 09/12/2018, Additional history exists CKD PHOS USE SMARTSET 15262 06/28/2024 03/0 10/2023, 05/20/2022, 02/05/2021, Additional history exists CKD HGB USE SMARTSET 03630 10/04/202410/04, 10/05/2023, 08/22/2023, Additional history exists Colonoscopy 05/13/2025 05/13/2022, 07/0 [...] (HCC) documented in this encounter Care Teams Supervisor Dog License Officer Relationship Specialty Start Date End Date Vianey Matamoros MD [address] [place] [address] PCP - General Internal Medicine 01/11/21 documented as of this encounter
[2023-12-20] MEDS: AMIODARONE 200 MG TAB PO SCH (09:57)
[2023-12-20] MEDS: METHENAMINE HIPPURATE 1 GM TAB PO SCH (09:57)
[2023-12-20] MEDS: CLOPIDOGREL BISULFATE 75 MG TAB PO SCH (09:57)
[2023-12-20] MEDS: METOPROLOL SUCC 25MG EXT REL TAB PO SCH (09:58)
[2023-12-20] MEDS: MIDODRINE HCL 2.5 MG TAB PO SCH (09:59)
[2023-12-20] MEDS: CEROVITE ADV FORMULA TAB PO SCH ×2 (09:59→17:03)
[2023-12-20] MEDS: LORATADINE 10 MG TAB PO SCH (09:59)
[2023-12-20] MEDS: GABAPENTIN 300 MG CAP PO SCH (09:59)
[2023-12-20] MEDS: DOCUSATE SODIUM 100 MG CAP PO SCH (09:59)
[2023-12-20] MEDS: FLUTICASONE PROPIONATE NA SPR 16 GM BTL SCH (10:00)
[2023-12-20] MEDS: LANTUS PER UNIT CHARGE SQ SCH (10:39)
--- NOTE | 2023-12-20 12:47 | Hospitalist Progress Note ---
Date of Service December 20, 2023 Assessment & Plan (1) Hyponatremia: Plan: Mr. Thayer is an 88 year old gentleman with history of PAD, CAD, atrial fibrillation on warfarin, diabetes with neuropathy and history of foot wounds who was admitted on 12/18 for hyponatremia and COVID infection. #COVID positive Case management consult RE contact patient's home health provider to clarify caregiver policy following patient COVID-19 illness No hypoxia noted Symptomatic treatment Declines any further symptoms support with guaifenesin or other agents enhanced precautions #Acute hyponatremia low osmolality, urine lytes and osmo ordered Improving with slight fluids Held lasix repeat bmp this afternoon #Acute complicated UTI POA #chronic indwelling terry recurrent UTIs on chronic methenamine suppression Rx UA with 4+ bacteria, follow cx CTX for now #Progressive dysphagia #Pharyngeal Dysphagia, 2021 Speech consult #DM 2 insulin requiring, well-controlled as of recent hemoglobin A1c of 5.8 this month continue glargine 10sq daily #Peripheral arterial occlusive disease s/p angioplasty w GURU to distal popli teal vessel Anticoagulation with warfarin (see below) Continue Plavix #Paroxysmal atrial fibrillation #SSS status post PPM Continue Amiodarone, metoprolol XL 25mg daily. INR daily,resume home regimen Pacemaker in place #Postural hypotension #Chronic Heart Failure with Mildly Reduced EF Last ECHO 02/11: LV function mildly reduced. LV wall thickness concentric. EF 45%. Grade I DDx. 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 Reports chronic constipation States appetite is "fine" Requests no new medications at this time Physical Exam Constitutional: WD/WN, vitals as above (appears dry) Respiratory: normal respiratory effort, lungs clear to auscultation Cardiovascular: RRR, no murmur, no edema Gastrointestinal (Abdomen): normal bowel sounds, soft, nontender, no hepatosplenomegaly Results & Data Results & Data Vital Signs (Past 12 Hours) Vital Signs Pulse Pulse Resp BP BP Pulse Ox O2 Del Method 12/20/23 10:00 67 16 126/70 100 Room Air 12/20/23 07:05 60 12/20/23 06:00 66 24 98/66 L 98 Room Air Laboratory Results Short CBC 12/19/23 12/20/23 Range/Units 19:03 04:27 WBC 9.36 7.60 (4.8-10.8) K/ul Hgb 12.9 L 13.8 L (14.0-18.0) g/dl Hct 38.4 L 40.8 L (42.0-52.0) % Plt Count 195 208 (130-400) K/uL BMP 12/19/23 12/20/23 19:03 04:27 Sodium 129 L 132 L Potassium 4.4 4.3 Chloride 96 L 96 L Carbon Dioxide 27 29 BUN 21 21 Creatinine 1.08 1.19 Glucose 111 H 107 H Calcium 7.7 L 7.9 L Liver Function 12/19/23 Range/Units 19:03 Total Bilirubin 0.3 (0.2-1.0) mg/dl AST 23 (13-39) U/L ALT 19 (7-52) U/L Alkaline Phosphatase 102 (34-104) U/L Albumin 3.1 L (3.4-5.0) gm/dl Urine 12/19/23 Range/Units 17:45 Urine Color Yellow Urine Appearance Cloudy A (Clear) Urine pH 5.5 (4.5-7.5) Ur Specific [place] 1.011 (1.000-1.030) Urine Protein Negative (Negative) Urine Glucose (UA) Negative (Negative) Medications Administered Home Medications Medication Instructions Recorded Confirmed Last Taken amiodarone 200 mg tablet 200 mg PO QAM 01/02/18 12/19/23 1 Day Ago ~08/24/23 insulin glargine 100 unit/mL 16 units subcut DAILY 01/02/18 12/19/23 12/19/23 10:00 subcutaneous solution loratadine 10 mg tablet 10 mg PO QAM 01/02/18 12/19/23 1 Day Ago ~08/24/23 magnesium oxide 400 mg (241.3 mg 400 mg PO QAM 01/02/18 12/19/23 1 Day Ago magnesium) tablet ~08/24/23 metoprolol succinate 25 mg 25 mg PO QAM 01/02/18 12/19/23 1 Day Ago tablet,extended release 24 hr ~08/24/23 gabapentin 300 mg capsule 300 mg PO TID 03/10/18 12/19/23 1 Day Ago ~08/24/23 docusate sodium 100 mg capsule 100 mg PO BID 04/27/22 12/19/23 1 Day Ago (Colace) ~08/24/23 mometasone 0.1 % topical solution 1 applic topical .EVERY 24 HOURS 04/27/22 12/19/23 1 Day Ago PRN Itching ~08/24/23 acetaminophen 325 mg capsule 650 mg PO Q4 PRN PAIN/FEVER 05/10/22 12/19/23 3 Days Ago ~08/22/23 bisacodyl 10 mg rectal suppository 10 mg IA .EVERY 24 HOURS PRN 12/01/22 12/19/23 1 Month Ago Constipation ~07/26/23 calcium carbonate 500 mg-vitamin 1 tab PO QAM 12/01/22 12/19/23 1 Day Ago D3 5 mcg (200 unit) tablet (Oyster ~08/24/23 Shell Calcium-Vitamin D3) mirtazapine 30 mg tablet (Remeron) 30 mg PO HS 12/01/22 12/19/23 1 Day Ago ~08/24/23 multivit,stress formula-zinc tablet 1 tab PO DAILY 12/01/22 12/19/23 1 Day Ago ~08/24/23 midodrine 2.5 mg tablet 2.5 mg PO BID 03/10/23 12/19/23 1 Day Ago ~08/24/23 zolpidem 5 mg tablet (Ambien) 5 mg PO QPM 03/10/23 12/19/23 1 Day Ago ~08/24/23 furosemide 40 mg tablet 40 mg PO QAM 04/14/23 12/19/23 1 Day Ago ~08/24/23 [id number] 250 mg-dha 90 1 cap PO QAM 04/14/23 12/19/23 1 Day Ago mg-epa 160 [id number]-zpsr-zeax ~08/24/23 capsule (Ocuvite Adult 50 Plus) oxycodone 5 mg tablet 5 mg PO Q12H PRN mod-severe pain 04/14/23 12/19/23 1 Week Ago ~08/18/23 warfarin 2 mg tablet 1 - 2 mg PO DIRECTED 04/14/23 12/19/23 12/18/23 22:00 melatonin 5 mg capsule 10 mg PO HS 06/15/23 12/19/23 1 Day Ago ~08/24/23 potassium chloride 20 mEq 20 meq PO DAILY 08/18/23 12/19/23 1 Day Ago tablet,extended release(part/cryst) ~08/24/23 clopidogrel 75 mg tablet 75 mg PO QAM #90 tabs 10/17/23 12/19/23 Unknown nystatin 100,000 unit/gram topical 1 applic topical DAILY #60 grams 10/19/23 12/19/23 Unknown powder clobetasol 0.05 % scalp solution 1 applic topical DIRECTED 12/19/23 12/19/23 Unknown fluticasone propionate 50 2 spray intranasal DAILY 12/19/23 12/19/23 Unknown mcg/actuation nasal spray,suspension (Flonase Allergy Relief) ketoconazole 2 % shampoo 1 applic topical DIRECTED 12/19/23 12/19/23 Unknown lorazepam 1 mg tablet 1 mg PO HS 12/19/23 12/19/23 Unknown methenamine hippurate 1 gram tablet 1 g PO QAM 12/19/23 12/19/23 Unknown Active Medications Generic Name Dose Route Start Last Admin Trade Name Freq PRN Reason Stop Dose Admin Amiodarone HCl 200 mg 12/20/23 09:00 12/20/23 09:57 Amiodarone 200 Mg Tab PO 01/19/24 08:59 200 mg QAM ABIODUN Administration Clopidogrel Bisulfate 75 mg 12/20/23 09:00 12/20/23 09:57 Clopidogrel Bisulfate 75 Mg Tab PO 01/19/24 08:59 75 mg QAM ABIODUN Administration Docusate Sodium 100 mg 12/20/23 09:00 12/20/23 09:59 Docusate Sodium 100 Mg Cap PO 01/19/24 08:59 100 mg BID ABIODUN Administration Fluticasone Propionate 2 sprays 12/20/23 09:00 12/20/23 10:00 Fluticasone Propionate Na Spr 16 Gm Btl NA 01/19/24 08:59 2 sprays DAILY ABIODUN Administration Gabapentin 300 mg 12/20/23 09:00 12/20/23 09:59 Gabapentin 300 Mg Cap PO 01/19/24 08:59 300 mg TID ABIODUN Administration Insulin Aspart 0 units 12/19/23 22:23 12/20/23 09:56 Insulin Aspart Per Unit Charge SC 01/18/24 22:22 Not Given ACHS ABIODUN Insulin Glargine 10 units 12/20/23 09:00 12/20/23 10:39 Lantus Per Unit Charge SQ 01/19/24 08:59 10 units DAILY ABIODUN Administration Loratadine 10 mg 12/20/23 09:00 12/20/23 09:59 Loratadine 10 Mg Tab PO 01/19/24 08:59 10 mg QAM ABIODUN Administration Lorazepam 1 mg 12/19/23 22:35 12/20/23 00:28 Lorazepam 1 Mg Tab PO 01/18/24 22:34 1 mg DAILY@2000 ABIODUN Administration Melatonin 9.5 mg 12/19/23 23:00 12/20/23 00:29 Melatonin 3 Mg Tab PO 01/18/24 22:59 9.5 mg DAILY@2300 ABIODUN Administration Methenamine Hippurate 1 gm 12/20/23 09:00 12/20/23 09:57 Methenamine Hippurate 1 Gm Tab PO 01/19/24 08:59 1 gm QAM ABIODUN Administration Metoprolol Succinate 25 mg 12/20/23 09:00 12/20/23 09:58 Metoprolol Succ 25mg Ext Rel Tab PO 01/19/24 08:59 25 mg QAM ABIODUN Administration Midodrine 2.5 mg 12/20/23 08:00 12/20/23 09:59 Midodrine Hcl 2.5 Mg Tab PO 01/19/24 07:59 2.5 mg BIDM ABIODUN Administration Mirtazapine 30 mg 12/19/23 22:35 12/20/23 00:28 Mirtazapine Tab 15 Mg Tab PO 01/18/24 22:34 30 mg HS ABIODUN Administration Multivitamins/Minerals 1 tab 12/20/23 09:00 12/20/23 09:59 Cerovite Adv Formula Tab PO 01/19/24 08:59 1 tab DAILY ABIODUN Administration
[2023-12-20 15:20] LABS: BUN Creatinine Ratio 16.4 (10-20); Calcium 7.6 mg/dl (8.6-10.3); Creatinine Clr Calc Pharmacy 49.7 ml/min; Est GFR (African American) 64.8 ml/min; Est GFR (Non-African American) 55.9 ml/min; Potassium 4.6 mmol/L (3.5-5.1)
[2023-12-20] MEDS: MAGNESIUM OXIDE 400 MG TAB PO SCH (17:03)
[2023-12-20] MEDS: CALCIUM 600MG + VIT D 400 IU TAB PO SCH (17:03)
[2023-12-20] MEDS: WARFARIN SOD 2 MG TAB PO SCH (17:03)
[2023-12-20] MEDS: cefTRIAXone SODIUM 2,000 MG/50 ML BAG IV SCH (21:16)
[2023-12-20] MEDS: ZOLPIDEM TARTRATE 5 MG TAB PO PRN (23:39)
[2023-12-21 07:22] LABS: Hematocrit (blood only) 35.3 % (42.0-52.0); Hemoglobin 12.1 g/dl (14.0-18.0); Mean Corpuscular Hemoglobin 29.1 pg (25.0-34.0); Mean Corpuscular Hgb Conc 34.3 g/dL (32.0-36.0); Mean Corpuscular Volume 84.9 fL (80.0-100.0); Mean Platelet Volume 9.1 fL (9.4-12.4); Platelet Count 189 K/uL (130-400); RDW Coefficient of Variation 14.8 % (11.5-14.5); RDW Standard Deviation 45.7 fL (36.4-46.3); Red Blood Count 4.16 M/uL (4.70-6.10); White Blood Count 7.03 K/ul (4.8-10.8)
[2023-12-21 07:49] LABS: BUN Creatinine Ratio 19.7 (10-20); Calcium 7.6 mg/dl (8.6-10.3); Creatinine Clr Calc Pharmacy 49.3 ml/min; Est GFR (African American) 64.1 ml/min; Est GFR (Non-African American) 55.3 ml/min
[2023-12-21] MEDS ORDERED: oxyCODONE HCL IR 5 MG TAB (IMMEDIATE RELEASE) PO PRN (08:26)
[2023-12-21 09:13] LABS: INR 2.2 (0.9-1.1); Prothrombin Time 22.1 Seconds (9.0-12.0)
[2023-12-21] MEDS: FUROSEMIDE 40 MG TAB PO SCH (09:22)
--- NOTE | 2023-12-21 17:16 | Hospitalist Progress Note ---
Date of Service December 21, 2023 Assessment & Plan (1) Hyponatremia: Plan: Mr. Thayer is an 88 year old gentleman with history of PAD, CAD, atrial fibrillation on warfarin, diabetes with neuropathy and history of foot wounds who was admitted on 12/18 for hyponatremia and COVID infection. #COVID positive Case management consult RE contact patient's home health provider to clarify caregiver policy following patient COVID-19 illness No hypoxia noted Symptomatic treatment Declines any further symptoms support with guaifenesin or other agents enhanced precautions Symptoms on 12/17, positive 12/18 #Acute hyponatremia low osmolality, normal urine lytes sodium 50, component of siadh and poor po Improving with slight fluids Resumed lasix given subtle edema on ble bmp in am #Acute uti R/O culture suggestive of normal kevin #chronic indwelling terry recurrent UTIs on chronic methenamine suppression Rx UA with 4+ bacteria, follow cx CTX for now--will discontinue given low concern for infection #Progressive dysphagia #Pharyngeal Dysphagia, 2021 Speech consult: no acute changes, aspirtation precautions #DM 2 insulin requiring, well-controlled as of recent hemoglobin A1c of 5.8 this month continue glargine 10sq daily #Peripheral arterial occlusive disease s/p angioplasty w GURU to distal popliteal vessel Anticoagulation with warfarin (see below) Continue Plavix #Paroxysmal atrial fibrillation #SSS status post PPM Continue Amiodarone, metoprolol XL 25mg daily. INR daily,resume home regimen Pacemaker in place #Postural hypotension #Chronic Heart Failure with Mildly Reduced EF Last ECHO 02/11: LV function mildly reduced. LV wall thickness concentric. EF 45%. Grade I DDx. 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 #colon cancer status post surgery, in remission follows heme/onc prn stable DVT warfarin Dispo: Admit 1-2 days, discharge planning with Admission and Anticipated Discharge Date Admission Date: December 19, 2023 Subjective NAEO Patient reports feeling well with near resolution of symptoms Requesting wound care to [facility] [place] States his symptoms presented Monday and wants to return home [place] Physical Exam Constitutional: WD/WN, vitals as above Respiratory: normal respiratory effort, lungs clear to auscultation Cardiovascular: RRR, no murmur, no edema Results & Data Results & Data Vital Signs (Past 12 Hours) Vital Signs Temp Pulse Pulse Resp BP Pulse Ox O2 Del Method 12/21/23 14:15 60 12/21/23 09:30 Room Air 12/21/23 09:14 36.6 C 57 L 18 126/69 97 Room Air 12/21/23 07:00 60 Laboratory Results Short CBC 12/21/23 Range/Units 06:53 WBC 7.03 (4.8-10.8) K/ul Hgb 12.1 L (14.0-18.0) g/dl Hct 35.3 L (42.0-52.0) % Plt Count 189 (130-400) K/uL BMP 12/21/23 06:53 Sodium 132 L Potassium 4.0 Chloride 98 Carbon Dioxide 29 BUN 23 Creatinine 1.17 Glucose 105 H Calcium 7.6 L Medications Administered Home Medications Medication Instructions Recorded Confirmed Last Taken amiodarone 200 mg tablet 200 mg PO QAM 01/02/18 12/19/23 1 Day Ago ~08/24/23 insulin glargine 100 unit/mL 16 units subcut DAILY 01/02/18 12/19/23 12/19/23 10:00 subcutaneous solution loratadine 10 mg tablet 10 mg PO QAM 01/02/18 12/19/23 1 Day Ago ~08/24/23 magnesium oxide 400 mg (241.3 mg 400 mg PO QAM 01/02/18 12/19/23 1 Day Ago magnesium) tablet ~08/24/23 metoprolol succinate 25 mg 25 mg PO QAM 01/02/18 12/19/23 1 Day Ago tablet,extended release 24 hr ~08/24/23 gabapentin 300 mg capsule 300 mg PO TID 03/10/18 12/19/23 1 Day Ago ~08/24/23 docusate sodium 100 mg capsule 100 mg PO BID 04/27/22 12/19/23 1 Day Ago (Colace) ~08/24/23 mometasone 0.1 % topical solution 1 applic topical .EVERY 24 HOURS 04/27/22 12/19/23 1 Day Ago PRN Itching ~08/24/23 acetaminophen 325 mg capsule 650 mg PO Q4 PRN PAIN/FEVER 05/10/22 12/19/23 3 Days Ago ~08/22/23 bisacodyl 10 mg rectal suppository 10 mg DC .EVERY 24 HOURS PRN 12/01/22 12/19/23 1 Month Ago Constipation ~07/26/23 calcium carbonate 500 mg-vitamin 1 tab PO QAM 12/01/22 12/19/23 1 Day Ago D3 5 mcg (200 unit) tablet (Oyster ~08/24/23 Shell Calcium-Vitamin D3) mirtazapine 30 mg tablet (Remeron) 30 mg PO HS 12/01/22 12/19/23 1 Day Ago ~08/24/23 multivit,stress formula-zinc tablet 1 tab PO DAILY 12/01/22 12/19/23 1 Day Ago ~08/24/23 midodrine 2.5 mg tablet 2.5 mg PO BID 03/10/23 12/19/23 1 Day Ago ~08/24/23 zolpidem 5 mg tablet (Ambien) 5 mg PO QPM 03/10/23 12/19/23 1 Day Ago ~08/24/23 furosemide 40 mg tablet 40 mg PO QAM 04/14/23 12/19/23 1 Day Ago ~08/24/23 [id number] 250 mg-dha 90 1 cap PO QAM 04/14/23 12/19/23 1 Day Ago mg-epa 160 op-hsgj-ecgr-zeax ~08/24/23 capsule (Ocuvite Adult 50 Plus) oxycodone 5 mg tablet 5 mg PO Q12H PRN mod-severe pain 04/14/23 12/19/23 1 Week Ago ~08/18/23 warfarin 2 mg tablet 1 - 2 mg PO DIRECTED 04/14/23 12/19/23 12/18/23 22:00 melatonin 5 mg capsule 10 mg PO HS 06/15/23 12/19/23 1 Day Ago ~08/24/23 potassium chloride 20 mEq 20 meq PO DAILY 08/18/23 12/19/23 1 Day Ago tablet,extended release(part/cryst) ~08/24/23 clopidogrel 75 mg tablet 75 mg PO QAM #90 tabs 10/17/23 12/19/23 Unknown nystatin 100,000 unit/gram topical 1 applic topical DAILY #60 grams 10/19/23 12/19/23 Unknown powder clobetasol 0.05 % scalp solution 1 applic topical DIRECTED 12/19/23 12/19/23 Unknown fluticasone propionate 50 2 spray intranasal DAILY 12/19/23 12/19/23 Unknown mcg/actuation nasal spray,suspension (Flonase Allergy Relief) ketoconazole 2 % shampoo 1 applic topical DIRECTED 12/19/23 12/19/23 Unknown lorazepam 1 mg tablet 1 mg PO HS 12/19/23 12/19/23 Unknown methenamine hippurate 1 gram tablet 1 g PO QAM 12/19/23 12/19/23 Unknown Active Medications Generic Name Dose Route Start Last Admin Trade Name Freq PRN Reason Stop Dose Admin Amiodarone HCl 200 mg 12/20/23 09:00 12/21/23 09:16 Amiodarone 200 Mg Tab PO 01/19/24 08:59 200 mg QAM ABIODUN Administration Calcium/Vitamin D 1 tab 12/20/23 13:15 12/21/23 09:15 Calcium 600mg + Vit D 400 Iu Tab PO 01/19/24 13:14 1 tab QAM ABIODUN Administration Clopidogrel Bisulfate 75 mg 12/20/23 09:00 12/21/23 09:16 Clopidogrel Bisulfate 75 Mg Tab PO 01/19/24 08:59 75 mg QAM ABIODUN Administration Docusate Sodium 100 mg 12/20/23 09:00 12/21/23 09:16 Docusate Sodium 100 Mg Cap PO 01/19/24 08:59 100 mg BID ABIODUN Administration Fluticasone Propionate 2 sprays 12/20/23 09:00 12/21/23 09:17 Fluticasone Propionate Na Spr 16 Gm Btl NA 01/19/24 08:59 2 sprays DAILY ABIODUN Administration Furosemide 40 mg 12/21/23 09:00 12/21/23 09:22 Furosemide 40 Mg Tab PO 01/20/24 08:59 40 mg QAM ABIODUN Administration Gabapentin 300 mg 12/20/23 09:00 12/21/23 15:00 Gabapentin 300 Mg Cap PO 01/19/24 08:59 300 mg TID ABIODUN Administration Ceftriaxone Sodium 2,000 mg in 50 mls @ 100 mls/hr 12/20/23 20:00 12/20/23 22:14 Rocephin IV 12/25/23 19:59 Infused Q24H ABIODUN Infusion Insulin Aspart 0 units 12/19/23 22:23 12/21/23 13:06 Insulin Aspart Per Unit Charge SC 01/18/24 22:22 6 units ACHS ABIODUN Administration Insulin Glargine 10 units 12/20/23 09:00 12/21/23 09:17 Lantus Per Unit Charge SQ 01/19/24 08:59 10 units DAILY ABIODUN Administration Loratadine 10 mg 12/20/23 09:00 12/21/23 09:16 Loratadine 10 Mg Tab PO 01/19/24 08:59 10 mg QAM ABIODUN Administration Lorazepam 1 mg 12/19/23 22:35 12/20/23 21:01 Lorazepam 1 Mg Tab PO 01/18/24 22:34 1 mg DAILY@2000 ABIODUN Administration Magnesium Oxide 400 mg 12/20/23 13:00 12/21/23 09:15 Magnesium Oxide 400 Mg Tab PO 01/19/24 12:59 400 mg QAM ABIODUN Administration Melatonin 9.5 mg 12/19/23 23:00 12/20/23 21:02 Melatonin 3 Mg Tab PO 01/18/24 22:59 9.5 mg DAILY@2300 ABIODUN Administration Methenamine Hippurate 1 gm 12/20/23 09:00 12/21/23 09:16 Methenamine Hippurate 1 Gm Tab PO 01/19/24 08:59 1 gm QAM ABIODUN Administration Metoprolol Succinate 25 mg 12/20/23 09:00 12/21/23 09:16 Metoprolol Succ 25mg Ext Rel Tab PO 01/19/24 08:59 25 mg QAM ABIODUN Administration Midodrine 2.5 mg 12/20/23 08:00 12/21/23 09:16 Midodrine Hcl 2.5 Mg Tab PO 01/19/24 07:59 2.5 mg BIDM ABIODUN Administration Mirtazapine 30 mg 12/19/23 22:35 12/20/23 21:01 Mirtazapine Tab 15 Mg Tab PO 01/18/24 22:34 30 mg HS ABIODUN Administration Multivitamins/Minerals 1 tab 12/20/23 09:00 12/21/23 09:16 Cerovite Adv Formula Tab PO 01/19/24 08:59 1 tab DAILY ABIODUN Administration Multivitamins/Minerals 1 tab 12/20/23 13:00 12/21/23 09:18 Cerovite Adv Formula Tab PO 01/19/24 12:59 Not Given QAM ABIODUN Warfarin Sodium 2 mg 12/20/23 16:00 12/20/23 17:03 Warfarin Sod 2 Mg Tab PO 01/19/24 15:59 2 mg DAILY@1600 ABIODUN Administration Zolpidem Tartrate 5 mg 12/19/23 22:33 12/20/23 23:39 Zolpidem Tartrate 5 Mg Tab PO 01/19/24 20:59 5 mg QPM PRN Administration insomnia
[2023-12-22 07:58] LABS: BUN Creatinine Ratio 23.9 (10-20); Calcium 7.6 mg/dl (8.6-10.3); Creatinine Clr Calc Pharmacy 50.9 ml/min; Est GFR (African American) 69.9 ml/min; Est GFR (Non-African American) 60.3 ml/min
[2023-12-22 08:22] LABS: INR 2.2 (0.9-1.1); Prothrombin Time 21.9 Seconds (9.0-12.0)
[2023-12-22] MEDS: NYSTATIN POWDER 15GM BTL EXT SCH (14:46)
[2023-12-22] MEDS: bisacodyL 10 MG SUPP PR PRN (14:51)
--- NOTE | 2023-12-22 17:19 | Hospitalist Progress Note ---
Date of Service December 22, 2023 Assessment & Plan (1) Hyponatremia: Plan: Mr. Thayer is an 88 year old gentleman with history of PAD, CAD, atrial fibrillation on warfarin, diabetes with neuropathy and history of foot wounds who was admitted on 12/18 for hyponatremia and COVID infection. Patient is asymptomatic, however given caregiver policy cannot return to home until Monday #COVID positive Case management consult RE contact patient's home health provider to clarify caregiver policy following patient COVID-19 illness No hypoxia noted Symptomatic treatment Declines any further symptoms support with guaifenesin or other agents enhanced precautions Symptoms on 12/17, positive 12/18 #Acute hyponatremia low osmolality, normal urine lytes sodium 50, component of siadh and poor po Improving with slight fluids continue lasix given subtle edema on ble bmp in am #Acute uti R/O culture suggestive of normal kevin #chronic indwelling terry recurrent UTIs on chronic methenamine suppression Rx UA with 4+ bacteria, follow cx CTX for now--will discontinue given low concern for infection #Progressive dysphagia #Pharyngeal Dysphagia, 2021 Speech consult: no acute changes, aspirtation precautions #DM 2 insulin requiring, well-controlled as of recent hemoglobin A1c of 5.8 this month continue glargine 10sq daily #Peripheral arterial occlusive disease s/p angioplasty w GURU to distal popliteal vessel Anticoagulation with warfarin (see below) Continue Plavix #Paroxysmal atrial fibrillation #SSS status post PPM Continue Amiodarone, metoprolol XL 25mg daily. INR daily,resume home regimen Pacemaker in place #Postural hypotension #Chronic Heart Failure with Mildly Reduced EF Last ECHO 02/11: LV function mildly reduced. LV wall thickness concentric. EF 45%. Grade I DDx. 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 #colon cancer status post surgery, in remission follows heme/onc prn stable DVT warfarin Dispo: discharge on monday Admission and Anticipated Discharge Date Admission Date: December 19, 2023 Subjective NAEO Reports feeling well and frustrated he cannot return home but otherwise has no other concerns Physical Exam Constitutional: WD/WN, vitals as above Respiratory: normal respiratory effort, lungs clear to auscultation Cardiovascular: RRR, no murmur, no edema Results & Data Results & Data Vital Signs (Past 12 Hours) Vital Signs Temp Pulse Pulse Resp BP Pulse Ox O2 Del Method 12/22/23 16:52 60 12/22/23 12:08 36.3 C L 56 L 18 132/71 98 Room Air 12/22/23 09:00 60 12/22/23 07:59 35.9 C L 60 18 114/68 96 Room Air Laboratory Results [facility] 12/22/23 06:55 Sodium 131 L Potassium 4.0 Chloride 97 L Carbon Dioxide 30 BUN 26 H Creatinine 1.09 Glucose 109 H Calcium 7.6 L Medications Administered Home Medications Medication Instructions Recorded Confirmed Last Taken amiodarone 200 mg tablet 200 mg PO QA 01/02/18 12/19/23 1 Day Ago ~08/24/23 insulin glargine 100 unit/mL 16 units subcut DAILY 01/02/18 12/19/23 12/19/23 10:00 subcutaneous solution loratadine 10 mg tablet 10 mg PO [facility] 01/02/18 12/19/23 1 Day Ago ~08/24/23 magnesium oxide 400 mg (241.3 mg 400 mg PO [facility] 01/02/18 12/19/23 1 Day Ago magnesium) tablet ~08/24/23 metoprolol succinate 25 mg 25 mg PO M 01/02/18 12/19/23 1 Day Ago tablet,extended release 24 hr ~08/24/23 gabapentin 300 mg capsule 300 mg PO TID 03/10/18 12/19/23 1 Day Ago ~08/24/23 docusate sodium 100 mg capsule 100 mg PO BID 04/27/22 12/19/23 1 Day Ago (Colace) ~08/24/23 mometasone 0.1 % topical solution 1 applic topical .EVERY 24 HOURS 04/27/22 12/19/23 1 Day Ago PRN Itching ~08/24/23 acetaminophen 325 mg capsule 650 mg PO Q4 PRN PAIN/FEVER 05/10/22 12/19/23 3 Days Ago ~08/22/23 bisacodyl 10 mg rectal suppository 10 mg IN .EVERY 24 HOURS PRN 12/01/22 0 12/19/23 1 Month Ago Constipation ~07/26/23 calcium carbonate 500 mg-vitamin 1 tab PO QAM 12/01/22 12/19/23 1 Day Ago D3 5 mcg (200 unit) tablet (Oyster ~08/24/23 Shell Calcium-Vitamin D3) mirtazapine 30 mg tablet (Remeron) 30 mg PO HS 12/01/22 12/19/23 1 Day Ago ~08/24/23 multivit,stress formula-zinc tablet 1 tab PO DAILY 12/01/22 12/19/23 1 Day Ago ~08/24/23 midodrine 2.5 mg tablet 2.5 mg PO BID 03/10/23 12/19/23 1 Day Ago ~08/24/23 zolpidem 5 mg tablet (Ambien) 5 mg PO QPM 03/10/23 12/19/23 1 Day Ago ~08/24/23 furosemide 40 mg tablet 40 mg PO QAM 04/14/23 12/19/23 1 Day Ago ~08/24/23 [id number] 250 mg-dha 90 1 cap PO QAM 04/14/23 12/19/23 1 Day Ago mg-epa 160 [id number] ~08/24/23 capsule (Ocuvite Adult 50 Plus) oxycodone 5 mg tablet 5 mg PO Q12H PRN mod-severe pain 04/14/23 12/19/23 1 Week Ago ~08/18/23 warfarin 2 mg tablet 1 - 2 mg PO DIRECTED 04/14/23 12/19/23 12/18/23 22:00 melatonin 5 mg capsule 10 mg PO HS 06/15/23 12/19/23 1 Day Ago ~08/24/23 potassium chloride 20 mEq 20 meq PO DAILY 08/18/23 12/19/23 1 Day Ago tablet,extended release(part/cryst) ~08/24/23 clopidogrel 75 mg tablet 75 mg PO QAM #90 tabs 10/17/23 12/19/23 Unknown nystatin 100,000 unit/gram topical 1 applic topical DAILY #60 grams 10/19/23 12/19/23 Unknown powder clobetasol 0.05 % scalp solution 1 applic topical DIRECTED 12/19/23 12/19/23 Unknown fluticasone propionate 50 2 spray intranasal DAILY 12/19/23 12/19/23 Unknown mcg/actuation nasal spray,suspension (Flonase Allergy Relief) ketoconazole 2 % shampoo 1 applic topical DIRECTED 12/19/23 12/19/23 Unknown lorazepam 1 mg tablet 1 mg PO HS 12/19/23 12/19/23 Unknown methenamine hippurate 1 gram tablet 1 g PO QAM 12/19/23 12/19/23 Unknown Active Medications Generic Name Dose Route Start Last Admin Trade Name Freq PRN Reason Stop Dose Admin Amiodarone HCl 200 mg 12/20/23 09:00 12/22/23 09:35 Amiodarone 200 Mg Tab PO 01/19/24 08:59 200 mg QAM ABIODUN Administration Bisacodyl 10 mg 12/19/23 22:33 12/22/23 14:51 Bisacodyl 10 Mg Supp IN 01/18/24 22:32 10 mg Q24H PRN Administration Constipation Calcium/Vitamin D 1 tab 12/20/23 13:15 12/22/23 09:35 Calcium 600mg + Vit D 400 Iu Tab PO 01/19/24 13:14 1 tab QAM ABIODUN Administration Clopidogrel Bisulfate 75 mg 12/20/23 09:00 12/22/23 09:35 Clopidogrel Bisulfate 75 Mg Tab PO 01/19/24 08:59 75 mg QAM ABIODUN Administration Docusate Sodium 100 mg 12/20/23 09:00 12/22/23 09:48 Docusate Sodium 100 Mg Cap PO 01/19/24 08:59 Not Given BID ABIODUN Fluticasone Propionate 2 sprays 12/20/23 09:00 12/22/23 09:36 Fluticasone Propionate Na Spr 16 Gm Btl NA 01/19/24 08:59 2 sprays DAILY ABIODUN Administration Furosemide 40 mg 12/21/23 09:00 12/22/23 09:35 Furosemide 40 Mg Tab PO 01/20/24 08:59 40 mg QAM ABIODUN Administration Gabapentin 300 mg 12/20/23 09:00 12/22/23 14:47 Gabapentin 300 Mg Cap PO 01/19/24 08:59 300 mg TID ABIODUN Administration Insulin Aspart 0 units 12/19/23 22:23 12/22/23 14:46 Insulin Aspart Per Unit Charge SC 01/18/24 22:22 3 units ACHS ABIODUN Administration Insulin Glargine 10 units 12/20/23 09:00 12/22/23 09:48 Lantus Per Unit Charge SQ 01/19/24 08:59 10 units DAILY ABIODUN Administration Loratadine 10 mg 12/20/23 09:00 12/22/23 09:34 Loratadine 10 Mg Tab PO 01/19/24 08:59 10 mg QAM ABIODUN Administration Lorazepam 1 mg 12/19/23 22:35 12/21/23 21:35 Lorazepam 1 Mg Tab PO 01/18/24 22:34 1 mg DAILY@2000 ABIODUN Administration Magnesium Oxide 400 mg 12/20/23 13:00 12/22/23 09:34 Magnesium Oxide 400 Mg Tab PO 01/19/24 12:59 400 mg QAM ABIODUN Administration Melatonin 9.5 mg 12/19/23 23:00 12/21/23 21:36 Melatonin 3 Mg Tab PO 01/18/24 22:59 9.5 mg DAILY@2300 ABIODUN Administration Methenamine Hippurate 1 gm 12/20/23 09:00 12/22/23 09:34 Methenamine Hippurate 1 Gm Tab PO 01/19/24 08:59 1 gm QAM ABIODUN Administration Metoprolol Succinate 25 mg 12/20/23 09:00 12/22/23 09:34 Metoprolol Succ 25mg Ext Rel Tab PO 01/19/24 08:59 25 mg QAM ABIODUN Administration Midodrine 2.5 mg 12/20/23 08:00 12/22/23 09:35 Midodrine Hcl 2.5 Mg Tab PO 01/19/24 07:59 2.5 mg BIDM ABIODUN Administration Mirtazapine 30 mg 12/19/23 22:35 12/21/23 21:35 Mirtazapine Tab 15 Mg Tab PO 01/18/24 22:34 30 mg HS ABIODUN Administration Multivitamins/Minerals 1 tab 12/20/23 09:00 12/22/23 09:34 Cerovite Adv Formula Tab PO 01/19/24 08:59 1 tab DAILY ABIODUN Administration Multivitamins/Minerals 1 tab 12/20/23 13:00 12/22/23 09:49 Cerovite Adv Formula Tab PO 01/19/24 12:59 1 tab QAM ABIODUN Administration Nystatin 1 appln 12/22/23 14:00 12/22/23 14:46 Nystatin Powder 15gm Btl EXT 01/21/24 13:59 1 appln TID ABIODUN Administration Warfarin Sodium 2 mg 12/20/23 16:00 12/21/23 17:22 Warfarin Sod 2 Mg Tab PO 01/19/24 15:59 2 mg DAILY@1600 ABIODUN Administration Zolpidem Tartrate 5 mg 12/19/23 22:33 12/21/23 23:50 Zolpidem Tartrate 5 Mg Tab PO 01/19/24 20:59 5 mg QPM PRN Administration insomnia
--- NOTE | 2023-12-22 21:33 | Electrocardiogram Report ---
Test Reason : Blood Pressure : */* mmHG Vent. Rate : 63 BPM Atrial Rate : * BPM P-R Int : * ms QRS Dur : 156 ms QT Int : 500 ms P-R-T Axes : * 123 -56 degrees QTcB Int : 511 ms AV dual-paced rhythm Abnormal ECG When compared with ECG of 19-Aug-2023 04:48, No significant change was found Confirmed by Kirill Jarquin ([id number]) on 12/22/2023 9:33:21 PM Referred By: Confirmed By: Kirill Jarquin
[2023-12-23 07:24] LABS: INR 2.2 (0.9-1.1); Prothrombin Time 22.5 Seconds (9.0-12.0)
[2023-12-23 07:30] LABS: Albumin Level 2.9 gm/dl (3.4-5.0); BUN Creatinine Ratio 22.9 (10-20); Bilirubin,Total 0.3 mg/dl (0.2-1.0); Calcium 7.6 mg/dl (8.6-10.3); Est GFR (African American) 55.9 ml/min; Est GFR (Non-African American) 48.3 ml/min; Globulin 2.9 gm/dl (2.5-4.0); Potassium 3.8 mmol/L (3.5-5.1); Total Protein 5.8 gm/dl (6.0-8.3)
--- NOTE | 2023-12-23 12:46 | Hospitalist Progress Note ---
Date of Service December 23, 2023 Assessment & Plan (1) Hyponatremia: Plan: Mr. Thayer is an 88 year old gentleman with history of PAD, CAD, atrial fibrillation on warfarin, diabetes with neuropathy and history of foot wounds who was admitted on 12/18 for hyponatremia and COVID infection. Patient is asymptomatic, however given caregiver policy cannot return to home until Monday #COVID positive Case management consult RE contact patient's home health provider to clarify caregiver policy following patient COVID-19 illness No hypoxia noted Symptomatic treatment Declines any further symptoms support with guaifenesin or other agents enhanced precautions Symptoms on 12/17, positive 12/18 #Acute hyponatremia low osmolality, normal urine lytes sodium 50, component of siadh and poor po Improving with slight fluids continue lasix given subtle edema on ble bmp in am #Acute uti R/O culture suggestive of normal kevin #chronic indwelling terry recurrent UTIs on chronic methenamine suppression Rx UA with 4+ bacteria, follow cx CTX for now--will discontinue given low concern for infection #Progressive dysphagia #Pharyngeal Dysphagia, 2021 Speech consult: no acute changes, aspirtation precautions #DM 2 insulin requiring, well-controlled as of recent hemoglobin A1c of 5.8 this month continue glargine 10sq daily #Peripheral arterial occlusive disease s/p angioplasty w GURU to distal popliteal vessel Anticoagulation with warfarin (see below) Continue Plavix #Paroxysmal atrial fibrillation #SSS status post PPM Continue Amiodarone, metoprolol XL 25mg daily. INR daily,resume home regimen Pacemaker in place #Postural hypotension #Chronic Heart Failure with Mildly Reduced EF Last ECHO 02/11: LV function mildly reduced. LV wall thickness concentric. EF 45%. Grade I DDx. 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 #colon cancer status post surgery, in remission follows heme/onc prn stable DVT warfarin Dispo: discharge on monday Admission and Anticipated Discharge Date Admission Date: December 19, 2023 Subjective NAEO Reports frustration with being in the hospital, but otherwise no cough, chest pain or other acute concern Physical Exam Constitutional: WD/WN, vitals as above Respiratory: normal respiratory effort, lungs clear to auscultation Cardiovascular: RRR, no murmur, no edema Gastrointestinal (Abdomen): normal bowel sounds, soft, nontender, no hepatosplenomegaly Results & Data Results & Data Vital Signs (Past 12 Hours) Vital Signs Temp Pulse Pulse Resp BP Pulse Ox O2 Del Method 12/23/23 11:00 36.5 C 59 L 16 127/69 97 Room Air 12/23/23 09:00 Room Air 12/23/23 07:24 36.4 C L 61 16 110/59 L 100 Room Air 12/23/23 07:00 60 12/23/23 04:10 36.5 C 57 L 20 105/63 100 Room Air Laboratory Results [facility] 12/23/23 06:32 Sodium 133 L Potassium 3.8 Chloride 97 L Carbon Dioxide 30 BUN 30 H Creatinine 1.31 Glucose 100 H Calcium 7.6 L Liver Function 12/23/23 Range/Units 06:32 Total Bilirubin 0.3 (0.2-1.0) mg/dl AST 21 (13-39) U/L ALT 17 (7-52) U/L Alkaline Phosphatase 84 (34-104) U/L Albumin 2.9 L (3.4-5.0) gm/dl Medications Administered Home Medications Medication Instructions Recorded Confirmed Last Taken amiodarone 200 mg tablet 200 mg PO QAM 01/02/18 12/19/23 1 Day Ago ~08/24/23 insulin glargine 100 unit/mL 16 units subcut DAILY 01/02/18 12/19/23 12/19/23 10:00 subcutaneous solution loratadine 10 mg tablet 10 mg PO QAM 01/02/18 12/19/23 1 Day Ago ~08/24/23 magnesium oxide 400 mg (241.3 mg 400 mg PO QAM 01/02/18 12/19/23 1 Day Ago magnesium) tablet ~08/24/23 metoprolol succinate 25 mg 25 mg PO QAM 01/02/18 12/19/23 1 Day Ago tablet,extended release 24 hr ~08/24/23 gabapentin 300 mg capsule 300 mg PO TID 03/10/18 12/19/23 1 Day Ago ~08/24/23 docusate sodium 100 mg capsule 100 mg PO BID 04/27/22 12/19/23 1 Day Ago (Colace) ~08/24/23 mometasone 0.1 % topical solution 1 applic topical .EVERY 24 HOURS 04/27/22 12/19/23 1 Day Ago PRN Itching ~08/24/23 acetaminophen 325 mg capsule 650 mg PO Q4 PRN PAIN/FEVER 05/10/22 12/19/23 3 Days Ago ~08/22/23 bisacodyl 10 mg rectal suppository 10 mg MI .EVERY 24 HOURS PRN 12/01/22 12/19/23 1 Month Ago Constipation ~07/26/23 calcium carbonate 500 mg-vitamin 1 tab PO QAM 12/01/22 12/19/23 1 Day Ago D3 5 mcg (200 unit) tablet (Oyster ~08/24/23 Shell Calcium-Vitamin D3) mirtazapine 30 mg tablet (Remeron) 30 mg PO HS 12/01/22 12/19/23 1 Day Ago ~08/24/23 multivit,stress formula-zinc tablet 1 tab PO DAILY 12/01/22 12/19/23 1 Day Ago ~08/24/23 midodrine 2.5 mg tablet 2.5 mg PO BID 03/10/23 12/19/23 1 Day Ago ~08/24/23 zolpidem 5 mg tablet (Ambien) 5 mg PO QPM 03/10/23 12/19/23 1 Day Ago ~08/24/23 furosemide 40 mg tablet 40 mg PO QAM 04/14/23 12/19/23 1 Day Ago ~08/24/23 [id number] 250 mg-dha 90 1 cap PO QAM 04/14/23 12/19/23 1 Day Ago mg-epa 160 [id number] ~08/24/23 capsule (Ocuvite Adult 50 Plus) oxycodone 5 mg tablet 5 mg PO Q12H PRN mod-severe pain 04/14/23 12/19/23 1 Week Ago ~08/18/23 warfarin 2 mg tablet 1 - 2 mg PO DIRECTED 04/14/23 12/19/23 12/18/23 22:00 melatonin 5 mg capsule 10 mg PO HS 06/15/23 12/19/23 1 Day Ago ~08/24/23 potassium chloride 20 mEq 20 meq PO DAILY 08/18/23 12/19/23 1 Day Ago tablet,extended release(part/cryst) ~08/24/23 clopidogrel 75 mg tablet 75 mg PO QAM #90 tabs 10/17/23 12/19/23 Unknown nystatin 100,000 unit/gram topical 1 applic topical DAILY #60 grams 10/19/23 12/19/23 Unknown powder clobetasol 0.05 % scalp solution 1 applic topical DIRECTED 12/19/23 12/19/23 Unknown fluticasone propionate 50 2 spray intranasal DAILY 12/19/23 12/19/23 Unknown mcg/actuation nasal spray,suspension (Flonase Allergy Relief) ketoconazole 2 % shampoo 1 applic topical DIRECTED 12/19/23 12/19/23 Unknown lorazepam 1 mg tablet 1 mg PO HS 12/19/23 12/19/23 Unknown methenamine hippurate 1 gram tablet 1 g PO QAM 12/19/23 12/19/23 Unknown Active Medications Generic Name Dose Route Start Last Admin Trade Name Freq PRN Reason Stop Dose Admin Amiodarone HCl 200 mg 12/20/23 09:00 12/23/23 09:08 Amiodarone 200 Mg Tab PO 01/19/24 08:59 200 mg QAM ABIODUN Administration Bisacodyl 10 mg 12/19/23 22:33 12/22/23 14:51 Bisacodyl 10 Mg Supp MI 01/18/24 22:32 10 mg Q24H PRN Administration Constipation Calcium/Vitamin D 1 tab 12/20/23 13:15 12/23/23 09:08 Calcium 600mg + Vit D 400 Iu Tab PO 01/19/24 13:14 1 tab QAM ABIODUN Administration Clopidogrel Bisulfate 75 mg 12/20/23 09:00 12/23/23 09:09 Clopidogrel Bisulfate 75 Mg Tab PO 01/19/24 08:59 75 mg QAM ABIODUN Administration Docusate Sodium 100 mg 12/20/23 09:00 12/23/23 09:12 Docusate Sodium 100 Mg Cap PO 01/19/24 08:59 100 mg BID ABIODUN Administration Fluticasone Propionate 2 sprays 12/20/23 09:00 12/23/23 09:12 Fluticasone Propionate Na Spr 16 Gm Btl NA 01/19/24 08:59 2 sprays DAILY ABIODUN Administration Furosemide 40 mg 12/21/23 09:00 12/23/23 09:08 Furosemide 40 Mg Tab PO 01/20/24 08:59 40 mg QAM ABIODUN Administration Gabapentin 300 mg 12/20/23 09:00 12/23/23 12:40 Gabapentin 300 Mg Cap PO 01/19/24 08:59 300 mg TID ABIODUN Administration Insulin Aspart 0 units 12/19/23 22:23 12/23/23 12:39 Insulin Aspart Per Unit Charge SC 01/18/24 22:22 5 units ACHS ABIODUN Administration Insulin Glargine 10 units 12/20/23 09:00 12/23/23 09:06 Lantus Per Unit Charge SQ 01/19/24 08:59 10 units DAILY ABIODUN Administration Loratadine 10 mg 12/20/23 09:00 12/23/23 09:08 Loratadine 10 Mg Tab PO 01/19/24 08:59 10 mg QAM ABIODUN Administration Lorazepam 1 mg 12/19/23 22:35 12/22/23 22:01 Lorazepam 1 Mg Tab PO 01/18/24 22:34 1 mg DAILY@2000 ABIODUN Administration Magnesium Oxide 400 mg 12/20/23 13:00 12/23/23 09:09 Magnesium Oxide 400 Mg Tab PO 01/19/24 12:59 400 mg QAM ABIODUN Administration Melatonin 9.5 mg 12/19/23 23:00 12/22/23 22:01 Melatonin 3 Mg Tab PO 01/18/24 22:59 9.5 mg DAILY@2300 ABIODUN Administration Methenamine Hippurate 1 gm 12/20/23 09:00 12/23/23 09:09 Methenamine Hippurate 1 Gm Tab PO 01/19/24 08:59 1 gm QAM ABIODUN Administration Metoprolol Succinate 25 mg 12/20/23 09:00 12/23/23 09:08 Metoprolol Succ 25mg Ext Rel Tab PO 01/19/24 08:59 25 mg QAM ABIODUN Administration Midodrine 2.5 mg 12/20/23 08:00 12/23/23 15:50 Midodrine Hcl 2.5 Mg Tab PO 01/19/24 07:59 2.5 mg BIDM ABIODUN Administration Mirtazapine 30 mg 12/19/23 22:35 12/22/23 22:02 Mirtazapine Tab 15 Mg Tab PO 01/18/24 22:34 30 mg HS ABIODUN Administration Multivitamins/Minerals 1 tab 12/20/23 09:00 12/23/23 09:08 Cerovite Adv Formula Tab PO 01/19/24 08:59 1 tab DAILY ABIODUN Administration Multivitamins/Minerals 1 tab 12/20/23 13:00 12/23/23 09:12 Cerovite Adv Formula Tab PO 01/19/24 12:59 Not Given QAM ABIODUN Nystatin 1 appln 12/22/23 14:00 12/23/23 12:40 Nystatin Powder 15gm Btl EXT 01/21/24 13:59 1 appln TID ABIODUN Administration Warfarin Sodium 2 mg 12/20/23 16:00 12/23/23 15:50 Warfarin Sod 2 Mg Tab PO 01/19/24 15:59 2 mg DAILY@1600 ABIODUN Administration Zolpidem Tartrate 5 mg 12/19/23 22:33 12/22/23 23:26 Zolpidem Tartrate 5 Mg Tab PO 01/19/24 20:59 5 mg QPM PRN Administration insomnia
--- NOTE | 2023-12-24 13:04 | Hospitalist Progress Note ---
Date of Service December 24, 2023 Assessment & Plan (1) Hyponatremia: Plan: Mr. Thayer is an 88 year old gentleman with history of PAD, CAD, atrial fibrillation on warfarin, diabetes with neuropathy and history of foot wounds who was admitted on 12/18 for hyponatremia and COVID infection. Patient is asymptomatic, however given caregiver policy cannot return to home until Monday Patient's course has remained uneventful. Patient denies any symptoms or further congestion/concerns. Patient eager for dispo in am. #COVID positive Case management consult RE contact patient's home health provider to clarify caregiver policy following patient COVID-19 illness No hypoxia noted Symptomatic treatment Declines any further symptoms support with guaifenesin or other agents enhanced precautions Symptoms on 12/17, positive 12/18 #Acute hyponatremia low osmolality, normal urine lytes sodium 50, component of siadh and poor po Improving with slight fluids continue lasix given subtle edema on ble bmp in am #Acute uti R/O culture suggestive of normal kevin #chronic indwelling terry recurrent UTIs on chronic methenamine suppression Rx UA with 4+ bacteria, follow cx CTX for now--will discontinue given low concern for infection #Progressive dysphagia #Pharyngeal Dysphagia, 2021 Speech consult: no acute changes, aspirtation precautions #DM 2 insulin requiring, well-controlled as of recent hemoglobin A1c of 5.8 this month continue glargine 10sq daily #Peripheral arterial occlusive disease s/p angioplasty w GURU to distal popliteal vessel Anticoagulation with warfarin (see below) Continue Plavix #Paroxysmal atrial fibrillation #SSS status post PPM Continue Amiodarone, metoprolol XL 25mg daily. INR daily,resume home regimen Pacemaker in place #Postural hypotension #Chronic Heart Failure with Mildly Reduced EF Last ECHO 02/11: LV function mildly reduced. LV wall thickness concentric. EF 45%. Grade I DDx. 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 #colon cancer status post surgery, in remission follows heme/onc prn stable DVT warfarin Dispo: discharge on monday Admission and Anticipated Discharge Date Admission Date: December 19, 2023 Subjective NAEO Results & Data Results & Data Vital Signs (Past 12 Hours) Vital Signs Temp Pulse Resp BP Pulse Ox O2 Del Method 12/24/23 08:00 36.8 C 60 16 101/52 L 93 Room Air 12/24/23 07:25 Room Air Medications Administered Home Medications Medication Instructions Recorded Confirmed Last Taken amiodarone 200 mg tablet 200 mg PO [facility] 01/02/18 12/19/23 1 Day Ago ~08/24/23 insulin glargine 100 unit/mL 16 units subcut DAILY 01/02/18 12/19/23 12/19/23 10:00 subcutaneous solution loratadine 10 mg tablet 10 mg PO [facility] 01/02/18 12/19/23 1 Day Ago ~08/24/23 magnesium oxide 400 mg (241.3 mg 400 mg PO [facility] 01/02/18 12/19/23 1 Day Ago magnesium) tablet ~08/24/23 metoprolol succinate 25 mg 25 mg PO [facility] 01/02/18 12/19/23 1 Day Ago tablet,extended release 24 hr ~08/24/23 gabapentin 300 mg capsule 300 mg PO TID 03/10/18 12/19/23 1 Day Ago ~08/24/23 docusate sodium 100 mg capsule 100 mg PO BID 04/27/22 12/19/23 1 Day Ago (Colace) ~08/24/23 mometasone 0.1 % topical solution 1 applic topical .EVERY 24 HOURS 04/27/22 12/19/23 1 Day Ago PRN Itching ~08/24/23 acetaminophen 325 mg capsule 650 mg PO Q4 PRN PAIN/FEVER 05/10/22 12/19/23 3 Days Ago ~08/22/23 bisacodyl 10 mg rectal suppository 10 mg TN .EVERY 24 HOURS PRN 12/01/22/11/14 1 Month Ago Constipation ~07/26/23 calcium carbonate 500 mg-vitamin 1 tab PO QAM 12/01/22 12/19/23 1 Day Ago D3 5 mcg (200 unit) tablet (Oyster ~08/24/23 Shell Calcium-Vitamin D3) mirtazapine 30 mg tablet (Remeron) 30 mg PO HS 12/01/22 12/19/23 1 Day Ago ~08/24/23 multivit,stress formula-zinc tablet 1 tab PO DAILY 12/01/22 12/19/23 1 Day Ago ~08/24/23 midodrine 2.5 mg tablet 2.5 mg PO BID 03/10/23 12/19/23 1 Day Ago ~08/24/23 zolpidem 5 mg tablet (Ambien) 5 mg PO QPM 03/10/23 12/19/23 1 Day Ago ~08/24/23 furosemide 40 mg tablet 40 mg PO QAM 04/14/23 12/19/23 1 Day Ago ~08/24/23 [id number]- 250 mg-dha 90 1 cap PO QAM 04/14/23 12/19/23 1 Day Ago mg-epa 160 [id number] ~08/24/23 capsule (Ocuvite Adult 50 Plus) oxycodone 5 mg tablet 5 mg PO Q12H PRN mod-severe pain 04/14/23 12/19/23 1 Week Ago ~08/18/23 warfarin 2 mg tablet 1 - 2 mg PO DIRECTED 04/14/23 12/19/23 12/18/23 22:00 melatonin 5 mg capsule 10 mg PO HS 06/15/23 12/19/23 1 Day Ago ~08/24/23 potassium chloride 20 mEq 20 meq PO DAILY 08/18/23 12/19/23 1 Day Ago tablet,extended release(part/cryst) ~08/24/23 clopidogrel 75 mg tablet 75 mg PO QAM #90 tabs 10/17/23 12/19/23 Unknown nystatin 100,000 unit/gram topical 1 applic topical DAILY #60 grams 10/19/23 12/19/23 Unknown powder clobetasol 0.05 % scalp solution 1 applic topical DIRECTED 12/19/23 12/19/23 Unknown fluticasone propionate 50 2 spray intranasal DAILY 12/19/23 12/19/23 Unknown mcg/actuation nasal spray,suspension (Flonase Allergy Relief) ketoconazole 2 % shampoo 1 applic topical DIRECTED 12/19/23 12/19/23 Unknown lorazepam 1 mg tablet 1 mg PO HS 12/19/23 12/19/23 Unknown methenamine hippurate 1 gram tablet 1 g PO QAM 12/19/23 12/19/23 Unknown Active Medications Generic Name Dose Route Start Last Admin Trade Name Yonathan PRN Reason Stop Dose Admin Amiodarone HCl 200 mg 12/20/23 09:00 12/24/23 08:47 Amiodarone 200 Mg Tab PO 01/19/24 08:59 200 mg QAM ABIODUN Administration Bisacodyl 10 mg 12/19/23 22:33 12/22/23 14:51 Bisacodyl 10 Mg Supp TN 01/18/24 22:32 10 mg Q24H PRN Administration Constipation Calcium/Vitamin D 1 tab 12/20/23 13:15 12/24/23 08:48 Calcium 600mg + Vit D 400 Iu Tab PO 01/19/24 13:14 1 tab QAM ABIODUN Administration Clopidogrel Bisulfate 75 mg 12/20/23 09:00 12/24/23 08:47 Clopidogrel Bisulfate 75 Mg Tab PO 01/19/24 08:59 75 mg QAM ABIODUN Administration Docusate Sodium 100 mg 12/20/23 09:00 12/24/23 09:30 Docusate Sodium 100 Mg Cap PO 01/19/24 08:59 100 mg BID ABIODUN Administration Fluticasone Propionate 2 sprays 12/20/23 09:00 12/24/23 08:46 Fluticasone Propionate Na Spr 16 Gm Btl NA 01/19/24 08:59 2 sprays DAILY ABIODUN Administration Furosemide 40 mg 12/21/23 09:00 12/24/23 08:47 Furosemide 40 Mg Tab PO 01/20/24 08:59 40 mg QAM ABIODUN Administration Gabapentin 300 mg 12/20/23 09:00 12/24/23 08:45 Gabapentin 300 Mg Cap PO 01/19/24 08:59 300 mg TID ABIODUN Administration Insulin Aspart 0 units 12/19/23 22:23 12/24/23 12:39 Insulin Aspart Per Unit Charge SC 01/18/24 22:22 4 units ACHS ABIODUN Administration Insulin Glargine 10 units 12/20/23 09:00 12/24/23 08:39 Lantus Per Unit Charge SQ 01/19/24 08:59 10 units DAILY ABIODUN Administration Loratadine 10 mg 12/20/23 09:00 12/24/23 08:47 Loratadine 10 Mg Tab PO 01/19/24 08:59 10 mg QAM ABIODUN Administration Lorazepam 1 mg 12/19/23 22:35 12/23/23 21:01 Lorazepam 1 Mg Tab PO 01/18/24 22:34 1 mg DAILY@2000 ABIODUN Administration Magnesium Oxide 400 mg 12/20/23 13:00 12/24/23 08:46 Magnesium Oxide 400 Mg Tab PO 01/19/24 12:59 400 mg QAM ABIODUN Administration Methenamine Hippurate 1 gm 12/20/23 09:00 12/24/23 08:47 Methenamine Hippurate 1 Gm Tab PO 01/19/24 08:59 1 gm QAM ABIODUN Administration Metoprolol Succinate 25 mg 12/20/23 09:00 12/24/23 08:56 Metoprolol Succ 25mg Ext Rel Tab PO 01/19/24 08:59 25 mg QAM ABIODUN Administration Midodrine 2.5 mg 12/20/23 08:00 12/24/23 08:47 Midodrine Hcl 2.5 Mg Tab PO 01/19/24 07:59 2.5 mg BIDM ABIODUN Administration Mirtazapine 30 mg 12/19/23 22:35 12/23/23 21:01 Mirtazapine Tab 15 Mg Tab PO 01/18/24 22:34 30 mg HS ABIODUN Administration Multivitamins/Minerals 1 tab 12/20/23 13:00 12/24/23 08:48 Cerovite Adv Formula Tab PO 01/19/24 12:59 1 tab QAM ABIODUN Administration Nystatin 1 appln 12/22/23 14:00 12/24/23 08:52 Nystatin Powder 15gm Btl EXT 01/21/24 13:59 1 appln TID ABIODUN Administration Warfarin Sodium 2 mg 12/20/23 16:00 12/23/23 15:50 Warfarin Sod 2 Mg Tab PO 01/19/24 15:59 2 mg DAILY@1600 ABIODUN Administration Zolpidem Tartrate 5 mg 12/19/23 22:33 12/24/23 00:18 Zolpidem Tartrate 5 Mg Tab PO 01/19/24 20:59 5 mg QPM PRN Administration insomnia
[2023-12-24 14:37] VITALS: TEMP 97.7
[2023-12-24 20:24] VITALS: RESP 18
[2023-12-24] MEDS: MELATONIN 3 MG TAB PO ONE (22:00)
[2023-12-24] MEDS: MELATONIN 3 MG TAB PO SCH (22:00)
[2023-12-25 06:57] LABS: INR 2.2 (0.9-1.1); Prothrombin Time 22.7 Seconds (9.0-12.0)
[2023-12-25 08:29] VITALS: BP 145/74; PULSE 63; O2SAT 99
--- NOTE | 2023-12-25 09:11 | Discharge Summary ---
Discharge Summary Date of Service December 25, 2023 Principal Dx & Hospital Course #1 = Principal Diagnosis (1) Hyponatremia: Mr. Thayer is an 88 year old gentleman with history of PAD, CAD, atrial fibrillation on warfarin, diabetes with neuropathy and history of foot wounds who was admitted on 12/18 for hyponatremia and COVID infection. Patient is asymptomatic, however given caregiver policy cannot return to home until Monday Patient's course has remained uneventful. Patient denies any symptoms or further congestion/concerns. On day of discharge, patient was very elated. Denies any new symptoms and eager for home. #COVID positive Case management consult RE contact patient's home health provider to clarify caregiver policy following patient COVID-19 illness No hypoxia noted Symptomatic treatment Declines any further symptoms support with guaifenesin or other agents enhanced precautions Symptoms on 12/17, positive 12/18 #Acute hyponatremia low osmolality, normal urine lytes sodium 50, component of siadh and poor po Improving with slight fluids continue lasix given subtle edema on ble resolved #Acute uti R/O culture suggestive of normal kevin #chronic indwelling terry recurrent UTIs on chronic methenamine suppression Rx UA with 4+ bacteria, follow cx CTX for now--will discontinued given low concern for infection; no symptoms, terry exchange in 2 weeks #Progressive dysphagia #Pharyngeal Dysphagia, 2021 Speech consult: no acute changes, aspiration precautions #DM 2 insulin requiring, well-controlled as of recent hemoglobin A1c of 5.8 this month continue glargine 10sq daily #Peripheral arterial occlusive disease s/p angioplasty w GURU to distal popliteal vessel Anticoagulation with warfarin (see below) Continue Plavix #Paroxysmal atrial fibrillation #SSS status post PPM Continue Amiodarone, metoprolol XL 25mg daily. INR daily,resume home regimen Pacemaker in place #Postural hypotension #Chronic Heart Failure with Mildly Reduced EF Last ECHO 02/11: LV function mildly reduced. LV wall thickness concentric. EF 45%. Grade I DDx. 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 #colon cancer status post surgery, in remission follows heme/onc prn stable Notes For Next Care Provider Medication Changes From Visit None Admission HPI Per Admitting Provider History obtained from patient, home health staff and records. Medical history significant for chronic systolic heart failure 45%, TTE (EF 2020), CAD, PVD status post surgery, SSS status post PPM on Coumadin, orthostatic hypotension on midodrine, hypertension, hyperlipidemia, DM 2 insulin requiring, chronic anemia (baseline hemoglobin of 12), colon cancer status post surgery, prostate cancer status post surgery, urinary retention with indwelling Terry catheter, recurrent UTIs on chronic methenamine suppression Rx, past history toe osteomyelitis, skin cancer status post surgery. Last overnight confinement August 2023 for PAD status post elective angioplasty. Unremarkable postop course. 3 days ago, patient noted nasal congestion associated with cough symptoms productive of clear sputum. Denies chest pain, SOB, abdominal pain. No fever, no chills. Appetite okay. Positive COVID-19 test at home done by caregiver. Patient brought to ER following advice of patient's home health agency. Patient dependent on daily caregiver support due to bedridden status as per her account. Home health agency unable to provide caregiver services at patient's home for 10 days after positive COVID-19 test as per policy. IV ceftriaxone administered at the ER. 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, lives by self with caregiver support Admission Exam Per Admitting Provider GENERAL: Comfortable, no respiratory distress SKIN: Pallor, warm HEENT: Pale palpebral conjunctivae, no ptosis, dry buccal mucosa NECK : Supple, no tenderness CHEST : Decreased breath sounds, no tenderness HEART : Irregular no obvious murmurs ABDOMEN: Some distention, nontender EXTREMITIES : Minimal LE swelling, no LE tenderness, no other conspicuous deformities noted NEUROLOGIC : Coherent, no facial asymmetry, gait and stance not assessed Discharge Exam Constitutional WD/WN, vitals as above Respiratory normal respiratory effort, lungs clear to auscultation Cardiovascular RRR, no murmur, no edema Gastrointestinal (Abdomen) normal bowel sounds, soft, nontender, no hepatosplenomegaly Updated Medication List Medication Instructions Recorded Confirmed Type amiodarone 200 mg tablet 200 mg PO QAM 01/02/18 12/19/23 History insulin glargine 100 unit/mL 16 units subcut DAILY 01/02/18 12/19/23 History subcutaneous solution loratadine 10 mg tablet 10 mg PO QAM 01/02/18 12/19/23 History magnesium oxide 400 mg (241.3 mg 400 mg PO QAM 01/02/18 12/19/23 History magnesium) tablet metoprolol succinate 25 mg 25 mg PO QAM 01/02/18 12/19/23 History tablet,extended release 24 hr gabapentin 300 mg capsule 300 mg PO TID 03/10/18 12/19/23 History docusate sodium 100 mg capsule 100 mg PO BID 04/27/22 12/19/23 History (Colace) mometasone 0.1 % topical solution 1 applic topical .EVERY 24 HOURS 04/27/22 12/19/23 History PRN Itching acetaminophen 325 mg capsule 650 mg PO Q4 PRN PAIN/FEVER 05/10/22 12/19/23 History bisacodyl 10 mg rectal suppository 10 mg TN .EVERY 24 HOURS PRN 12/01/22 12/19/23 History Constipation calcium carbonate 500 mg-vitamin 1 tab PO QAM 12/01/22 12/19/23 History D3 5 mcg (200 unit) tablet (Oyster Shell Calcium-Vitamin D3) mirtazapine 30 mg tablet (Remeron) 30 mg PO HS 12/01/22 12/19/23 History multivit,stress formula-zinc tablet 1 tab PO DAILY 12/01/22 12/19/23 History midodrine 2.5 mg tablet 2.5 mg PO BID 03/10/23 12/19/23 History zolpidem 5 mg tablet (Ambien) 5 mg PO QPM 03/10/23 12/19/23 History furosemide 40 mg tablet 40 mg PO QAM 04/14/23 12/19/23 History [id number]-[id number]- 250 mg-dha 90 1 cap PO QAM 04/14/23 12/19/23 History mg-epa 160 [id number]-nxce-zeax capsule (Ocuvite Adult 50 Plus) oxycodone 5 mg tablet 5 mg PO Q12H PRN mod-severe pain 04/14/23 12/19/23 History warfarin 2 mg tablet 1 - 2 mg PO DIRECTED 04/14/23 12/19/23 History melatonin 5 mg capsule 10 mg PO HS 06/15/23 12/19/23 History potassium chloride 20 mEq 20 meq PO DAILY 08/18/23 12/19/23 History tablet,extended release(part/cryst) clopidogrel 75 mg tablet 75 mg PO QAM #90 tabs 10/17/23 12/19/23 Rx nystatin 100,000 unit/gram topical 1 applic topical DAILY #60 grams 10/19/23 12/19/23 Rx powder clobetasol 0.05 % scalp solution 1 applic topical DIRECTED 12/19/23 12/19/23 History fluticasone propionate 50 2 spray intranasal DAILY 12/19/23 12/19/23 History mcg/actuation nasal spray,suspension (Flonase Allergy Relief) ketoconazole 2 % shampoo 1 applic topical DIRECTED 12/19/23 12/19/23 History lorazepam 1 mg tablet 1 mg PO HS 12/19/23 12/19/23 History methenamine hippurate 1 gram tablet 1 g PO QAM 12/19/23 12/19/23 History Hospital Stay Data Consultations 12/19/23 20:31 ED Decision to Admit Stat Pending Results Patient Have Any Pending Studies at Discharge: No Discharge Instructions Given to Patient (Per Discharging Provider) You were admitted for weakness and found to be COVID positive. You improved quickly with conservative management There were no changes to your home regimen. Total Time Total Time Spent Total Time Spent (In Minutes): 35
== END 2023-12-25 11:49 | disposition home health service (06) | DRG 177 ==
LOC: ED 17:01 → EDINP 21:38 → 2W 22:22 → 3N 12-23 15:59

== ENCOUNTER 2024-03-04 12:18 | Inpatient (IN) ==
--- NOTE | 2024-03-04 13:00 | Emergency Department Note ---
Impression & Plan Osteomyelitis, Diabetic ulcer of toe of right foot, Atrial fibrillation ED Provider Note NAME: MINERVA NICOLE AGE: 88 SEX: M : 1935 ARRIVES VIA: Walk-In INFORMANT: Patient, family member ED PROVIDER(S): Elie Carr MD CHIEF COMPLAINT: Discoloration of the toe MEDICAL DECISION MAKING: Patient presents due to concern of discoloration of his left third toe. Possible osteo open fracture as well as necrosis of the left third digit. IV was established and blood work was obtained. The patient was ordered IV vancomycin and Zosyn. Patient with a normal white count hemoglobin 13.1 and normal platelet count. The patient's kidney function with a creat of 1.2. Patient's x-ray does show concern for osteomyelitis. I did speak with the patient's and subsequently did speak with Grecia Chand PA-C and the patient was admitted to the medicine service. I did convey the patient that he was likely to lose the third digit. The patient did have more warmth noted in the left lower extremity compared to the right but he did have a recent vascular angioplasty and believe that is why the left extremity is warmer to the right and not so much that he has new limb ischemia of the right chest that his vascular perfusion of the left lower extremity significantly improved post procedure. I also did convey this to the admitting service who understood. Discussion w/ other healthcare providers: Oumou Herndon PA-C and Dr. Maldonado inpatient medicine service Prior /Outside records reviewed: I reviewed part of an endovascular procedure note from Dr. Ulrich. Patient with left lower extremity mid to moderate diffuse SFA disease 100% late to mid in- stent popliteal occlusion with reconstitution right lower extremity widely patent iliacs successful angioplasty of left popliteal in-stent occlusion and successful stenting of distal popliteal Differential diagnosis: Osteomyelitis, gangrene, cellulitis, abscess, MRSA infection, DVT, necrotizing fasciitis, dermatitis, drug eruption, allergic reaction, as well as other pathologies were considered. Diagnostics, as interpreted by me: ECG: AV dual paced rhythm with PVCs rate of 63 wide QRS left bundle branch block pattern. Cardiac monitoring: An order was placed for continuous cardiac monitoring. The monitor shows a rate of 65 with paced rhythm. Patient was placed on pulse oximetry Medical decision rules: None Imaging studies: I informally interpreted the patient's chest x-ray shows left basilar opacity. with formal report to follow. HPI: Patient presents due to concerns for discoloration to his left third toe. The patient did have a recent left lower extremity vascular angioplasty completed with Dr. Ulrich within the recent past. Does report that he did not require wound of the right lower extremity. The patient has been seeing wound care and does have a prior history of fifth phalanx removal prior. Patient reports that he did have a skin graft completed to the third and fourth phalanx with Dr. Moe Pringle with podiatry about a month prior. Patient denies any chest pain or shortness of breath no fevers or chills. Home health was at the home today and were concerned that there is evidence of bone emanating through the skin and had discoloration of the left third digit. The patient did not require ceasing his Plavix but did stop Coumadin for short period of time and just restarted over the weekend. PAST MEDICAL HISTORY: See Below PAST SURGICAL HISTORY: See Below SOCIAL HISTORY: See Below HOME MEDICATIONS: See Below ALLERGIES: See Below VITALS: See Below PHYSICAL EXAMINATION: GENERAL: NAD, non-toxic. Wearing glasses. EYE EXAM: Normal conjunctiva. PERRL, no anisocoria and EOM's grossly intact w/o pain. OROPHARYNX: Moist mucus membranes, grossly normal dentition. NECK: Trachea midline, no stridor. Supple, no nuchal rigidity, no adenopathy, non-tender. No signs of meningismus. FROM of the neck with good chin to chest and neck extension. LUNGS: Clear to auscultation. Normal chest wall mechanics. HEART: NSR, no MRG. ABDOMEN: Abdomen soft, non-tender, no masses, no rebound or guarding. BACK: No CVA TTP. SKIN: No rashes and no bruising. UPPER EXTREMITIES: Upper extremities are grossly normal. LOWER EXTREMITIES: Open left third digit with necrosis noted to the distal portion of the left third digit, well-perfused in the left lower extremity in the foot proximally to the phalanges warmer in the left lower extremity compared to the right lower extremity. Pulses present bilaterally. NEURO EXAM: A&O x3, cranial nerves II-XII grossly intact, normal speech, moves all 4 extremities. Past Med/Surg History Problem List (Updated 03/06/24 @ 14:57 by Elie Carr MD) Osteomyelitis (Acute) Diabetic ulcer of toe of right foot (Acute) Pressure ulcer of left heel (Acute) UTI due to Klebsiella species Acute UTI (Acute) Wound of sacral region Diabetic ulcer of toe of left foot (Acute) Pressure ulcer of dorsum of left foot, stage 3 (Acute) Pressure ulcer of dorsum of left foot, stage 2 (Acute) Bradycardia Open wound of buttock (Acute) Surgical wound, non healing (Acute) Osteomyelitis of foot, acute (Acute) Diabetic infection of left foot (Acute) PAD (peripheral artery disease) (Chronic) Fungal rash of trunk (Acute) Diabetic ulcer of left foot (Acute) Diabetic ulcer of right great toe (Acute) Sacral pressure ulcer Unstageable pressure ulcer Diabetic foot ulcer (Acute) Abnormal ankle brachial index Encounter for pre-operative examination Chronic pain Pacemaker Complete heart block CKD (chronic kidney disease), stage III Chronic systolic heart failure History of airway aspiration Closed fracture of left proximal humerus History of ESBL E. coli infection Diabetes PAD (peripheral artery disease) (Chronic) Diabetic ulcer of toe associated with diabetes mellitus due to underlying condition, with bone involvement without evidence of necrosis (Acute) Diabetic ulcer of toe (Acute) Diabetic foot ulcer associated with type 2 diabetes mellitus, with fat layer exposed Melanoma Gross hematuria (Acute) Family history of prostate cancer (Acute) UTI (urinary tract infection) (Acute) Urinary retention History of prostate cancer PROSTATECTOMY Discharge planning issues DVT prophylaxis Diabetes mellitus type 2 with complications Atrial fibrillation (Acute) Coronary artery disease Rectal bleeding (Acute) Medical History Atrial fibrillation pacer > follows with Dr. Dacosta Hx of prostatic malignancy approx 2018 Diabetes Weakness Complicated urinary tract infection COVID-19 Hx: UTI (urinary tract infection) treated for while hospitalized at [facility] Nov 2023 History of ESBL E. coli infection 2020 Open wound of buttock gets wound care 3x weekly History of COVID-19 Dec 19, 2023 > cough/weakness, still coughing > was hospitalized at [facility] Pressure ulcer bilat feet > reason for upcoming procedure > one to right foot, four to left Hx of sepsis Jan 2023 per pt PVD (peripheral vascular disease) Berman catheter in place gets changed monthly Cerebrovascular disease Heart failure follows with Dr. Dacosta Ambulatory dysfunction History of hepatitis B remote hx per pt Renal failure no dialysis History of Mohs micrographic surgery for skin cancer History of melanoma HX MELANOMA, HX MULTIPLE SKIN CA & REMOVED Diabetic neuropathy History of colon cancer HX COLON SURGERY Chronic systolic CHF (congestive heart failure) Hypertension Pacemaker Medtronic > unsure when last checked Lumbar spinal stenosis Generalized OA Dyslipidemia Surgical History Hx of vascular surgery Angio Extremity Unilateral - Genaro Ulrich MD s Fem Pop Balloon Atherectomy - Genaro Ulrich MD s SC Select Cath Place 3rd Order - Genaro Ulrich MD s Ultrasound Vascular Access - Genaro Ulrich MD 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 History of anesthesia reaction WITH TESTICULAR SURGERY, [facility] - INCREASED BP & HAD TO STAY OVERNIGHT History of cardiac cath unknown how many yrs ago, no stents History of testicular surgery History of colonoscopy MULTIPLE History of tonsillectomy and adenoidectomy History of right hemicolectomy H/O prostatectomy Family History Mother Coronary heart disease Father Heart disease Social History Smoking Status: Never smoker Tobacco Type: Cigarettes Second Hand Exposure: No; Do You Dip or Chew Tobacco: No; Hx Alcohol Use: Yes Alcohol type: wine Hx Substance Use: No Preferred Language: [place]ican Communication Ability: Effective Hearing Ability: Hard of Hearing Aircraft Manager Required: No Beliefs That Will Affect Care: None marital status: Single Current Living Situation: Alone Current Living Situation Comment: alone with caregivers during the day current occupational status: retired How many Children do You have: 0 Feels Safe at Home: Yes Diet: diabetic Diet Comment: Increased protein for healing per chart during the past year weight has: remained stable Assistive Devices: Bedside Commode, Hospital Bed, Scooter/Electric Scooter and Wheelchair Allergies Allergies Allergy/AdvReac Type Severity Reaction Status Date / Time ampicillin Allergy Intermediate Rash Verified 01/10/24 06:46 Macrolide Antibiotics Allergy Unknown PER Verified 01/10/24 06:46 MEDICAL RECORD sildenafil Allergy Unknown SWELLING Verified 01/10/24 06:46 OF FACE AND HEAD nitrofurantoin AdvReac Diarrhea Verified 01/10/24 06:46 VASODILATORS Allergy Unknown "PERIPHERAL Uncoded 01/10/24 06:46 DILATOR" swelling of face and head Home Meds Home Medications Medication Instructions Recorded Confirmed amiodarone 200 mg tablet 200 mg PO QAM 01/02/18 03/04/24 insulin glargine 100 unit/mL 16 units DAILY 01/02/18 03/04/24 subcutaneous solution loratadine 10 mg tablet 10 mg PO QAM 01/02/18 03/04/24 magnesium oxide 400 mg (241.3 mg 400 mg PO QAM 01/02/18 03/04/24 magnesium) tablet metoprolol succinate 25 mg 25 mg PO QAM 01/02/18 03/04/24 tablet,extended release 24 hr gabapentin 300 mg capsule 300 mg PO TID 03/10/18 03/04/24 docusate sodium 100 mg capsule 100 mg PO BID 04/27/22 03/04/24 (Colace) mometasone 0.1 % topical solution 1 applic topical .EVERY 24 HOURS 04/27/22 03/04/24 PRN Itching acetaminophen 325 mg capsule 650 mg PO Q4 PRN PAIN/FEVER 05/10/22 03/04/24 bisacodyl 10 mg rectal suppository 10 mg GA .EVERY 24 HOURS PRN 12/01/22 03/04/24 Constipation calcium 500 mg (as 1 tab PO QAM 12/01/22 03/04/24 carbonate)-vitamin D3 5 mcg (200 unit) tablet (Oyster Shell Calcium-Vitamin D3) mirtazapine 30 mg tablet (Remeron) 30 mg PO HS 12/01/22 03/04/24 multivit,stress formula-zinc tablet 1 tab PO DAILY 12/01/22 03/04/24 midodrine 2.5 mg tablet 2.5 mg PO BID 03/10/23 03/04/24 zolpidem 5 mg tablet (Ambien) 5 mg PO QPM PRN Insomnia 03/10/23 03/04/24 furosemide 40 mg tablet 40 mg PO QAM 04/14/23 03/04/24 [id number] 250 mg-dha 90 1 cap PO QAM 04/14/23 03/04/24 mg-epa 160 [id number] capsule (Ocuvite Adult 50 Plus) warfarin 2 mg tablet 2 mg PO SUTUFR@1600 04/14/23 03/04/24 melatonin 5 mg capsule 10 mg PO HS 06/15/23 03/04/24 potassium chloride 20 mEq 20 meq PO QAM 08/18/23 03/04/24 tablet,extended release(part/cryst) clobetasol 0.05 % scalp solution 1 applic topical DIRECTED 12/19/23 03/04/24 fluticasone propionate 50 2 spray intranasal DAILY 12/19/23 03/04/24 mcg/actuation nasal spray,suspension (Flonase Allergy Relief) ketoconazole 2 % shampoo 1 applic topical DIRECTED 12/19/23 03/04/24 lorazepam 1 mg tablet 1 mg PO HS 12/19/23 03/04/24 methenamine hippurate 1 gram tablet 1 g PO QAM 12/19/23 03/04/24 warfarin 1 mg tablet 1 mg PO MOWETHSA@1600 03/04/24 03/04/24 Previous Rx's Medication Instructions Recorded clopidogrel 75 mg tablet 75 mg PO QAM #90 tabs 10/17/23 nystatin 100,000 unit/gram topical 1 applic topical DAILY #60 grams 10/19/23 powder cefdinir 300 mg capsule 300 mg PO BID 10 days #20 caps 03/06/24 Results & Data (ED) Vital Signs Vital Signs - 24 hr 03/04/24 12:41 03/04/24 13:10 03/04/24 13:33 Temperature 36.4 C L Temperature Source Temporal Artery Scan Pulse Rate 52 L 69 60 Pulse Rate from SpO2 Sensor 61 Pulse Rhythm Respiratory Rate 18 22 Respiratory Effort / Characteristics Non-Labored Spontaneous Respiratory Depth Normal Respiratory Pattern Regular Blood Pressure 126/56 L 129/60 Blood Pressure Mean 79 83 Pulse Oximetry 96 98 Oxygen Delivery Method Room Air Sepsis Recent Fever Within 48 Hours No Sepsis New/Unexplained Change in Mental Status No Sepsis Action Taken by Nursing No Action Required 03/04/24 13:35 03/04/24 14:06 03/04/24 14:30 Temperature Temperature Source Pulse Rate 66 63 66 Pulse Rate from SpO2 Sensor 61 66 Pulse Rhythm Irregular Respiratory Rate 20 23 19 Respiratory Effort / Characteristics Respiratory Depth Respiratory Pattern Blood Pressure 113/56 L 117/70 Blood Pressure Mean 75 85 Pulse Oximetry 100 94 98 Oxygen Delivery Method Room Air Sepsis Recent Fever Within 48 Hours Sepsis New/Unexplained Change in Mental Status Sepsis Action Taken by Nursing 03/04/24 15:15 03/04/24 15:39 03/04/24 16:15 Temperature Temperature Source Pulse Rate 62 65 70 Pulse Rate from SpO2 Sensor 59 L 60 62 Pulse Rhythm Respiratory Rate 13 17 22 Respiratory Effort / Characteristics Respiratory Depth Respiratory Pattern Blood Pressure 122/57 L 128/47 L 117/66 Blood Pressure Mean 78 74 83 Pulse Oximetry 99 99 97 Oxygen Delivery Method Sepsis Recent Fever Within 48 Hours Sepsis New/Unexplained Change in Mental Status Sepsis Action Taken by Snf Medications Current Medication List: was personally reviewed by me Laboratory Data Attestation: I reviewed the patient's lab results. 03/06/24 05:27 03/06/24 05:27 Lab Results 03/04/24 03/04/24 03/04/24 Range/Units 13:43 13:45 14:27 WBC 8.95 (4.8-10.8) K/ul RBC 4.51 L (4.70-6.10) M/uL Hgb 13.1 L (14.0-18.0) g/dl Hct 40.0 L (42.0-52.0) % MCV 88.7 (80.0-100.0) fL MCH 29.0 (25.0-34.0) pg MCHC 32.8 (32.0-36.0) g/dL RDW Std Deviation 54.1 H (36.4-46.3) fL RDW Coeff of Gabriela 16.8 H (11.5-14.5) % Plt Count 258 (130-400) K/uL MPV 9.3 L (9.4-12.4) fL Immature Gran % (Auto) 0.7 % Neut % (Auto) 74.7 % Lymph % (Auto) 15.9 % [place] % (Auto) 7.2 % Eos % (Auto) 0.9 % Baso % (Auto) 0.6 % Neut # (Auto) 6.70 H (1.40-6.50) K/uL Lymph # (Auto) 1.42 (1.20-3.40) K/uL [place] # (Auto) 0.64 H (0.11-0.59) K/uL Eos # (Auto) 0.08 (0.00-0.50) K/uL Baso # (Auto) 0.05 (0.00-0.20) K/uL Immature Gran # (Auto) 0.06 (0.01-0.20) K/uL PT (9.0-12.0) Seconds INR (0.9-1.1) Sodium 137 (136-145) mmol/L Potassium 4.1 (3.5-5.1) mmol/L Chloride 100 (98-107) mmol/L Carbon Dioxide 32 (21-32) mmol/L Anion Gap 5 (3-11) BUN 20 (6-23) mg/dl Creatinine 1.23 (0.6-1.4) mg/dl Est Cr Clr Drug Dosing 46.9 ml/min eGFR 56.47 BUN/Creatinine Ratio 16.3 (10-20) Glucose 167 H (70-99(Fasting)) mg/dl Lactate 1.6 (0.4-2.0) mmol/L Calcium 8.7 (8.6-10.3) mg/dl Magnesium 2.0 (1.7-2.4) mg/dl Total Bilirubin 0.4 (0.2-1.0) mg/dl Direct Bilirubin 0.1 (0-0.2) mg/dl AST 26 (13-39) U/L ALT 20 (7-52) U/L Alkaline Phosphatase 103 (34-104) U/L Troponin I High Sens 18.0 (0-20) pg/ml Total Protein 6.6 (6.0-8.3) gm/dl Albumin 3.3 L (3.4-5.0) gm/dl Procalcitonin Cancelled < 0.02 03/04/24 Range/Units 14:28 WBC (4.8-10.8) K/ul RBC (4.70-6.10) M/uL Hgb (14.0-18.0) g/dl Hct (42.0-52.0) % MCV (80.0-100.0) fL MCH (25.0-34.0) pg MCHC (32.0-36.0) g/dL RDW Std Deviation (36.4-46.3) fL RDW Coeff of Gabriela (11.5-14.5) % Plt Count (130-400) K/uL MPV (9.4-12.4) fL Immature Gran % (Auto) % Neut % (Auto) % Lymph % (Auto) % [place] % (Auto) % Eos % (Auto) % Baso % (Auto) % Neut # (Auto) (1.40-6.50) K/uL Lymph # (Auto) (1.20-3.40) K/uL [place] # (Auto) (0.11-0.59) K/uL Eos # (Auto) (0.00-0.50) K/uL Baso # (Auto) (0.00-0.20) K/uL Immature Gran # (Auto) (0.01-0.20) K/uL PT 16.3 H (9.0-12.0) Seconds INR 1.6 H (0.9-1.1) Sodium (136-145) mmol/L Potassium (3.5-5.1) mmol/L Chloride (98-107) mmol/L Carbon Dioxide (21-32) mmol/L Anion Gap (3-11) BUN (6-23) mg/dl Creatinine (0.6-1.4) mg/dl Est Cr Clr Drug Dosing ml/min eGFR BUN/Creatinine Ratio (10-20) Glucose (70-99(Fasting)) mg/dl Lactate (0.4-2.0) mmol/L Calcium (8.6-10.3) mg/dl Magnesium (1.7-2.4) mg/dl Total Bilirubin (0.2-1.0) mg/dl Direct Bilirubin (0-0.2) mg/dl AST (13-39) U/L ALT (7-52) U/L Alkaline Phosphatase (34-104) U/L Troponin I High Sens (0-20) pg/ml Total Protein (6.0-8.3) gm/dl Albumin (3.4-5.0) gm/dl Procalcitonin Administered Medications Amiodarone HCl (Am[facility]arone 200 Mg Tab) [facility] Stop: 04/04/24 08:59 Last Admin: 03/06/24 08:08 Dose: 200 mg Documented By: Admin: 03/05/24 07:47 Dose: 200 mg Documented By: PEGGY Calcium/Vitamin D (Calcium 600mg + Vit D 400 Iu Tab) [facility] Stop: 04/04/24 08:59 Last Admin: 03/06/24 08:07 Dose: 1 tab Documented By: Admin: 03/05/24 07:47 Dose: 1 tab Documented By: PEGGY Clopidogrel Bisulfate (Clopidogrel Bisulfate 75 Mg Tab) 75 mg PO QAM [facility] Stop: 04/04/24 08:59 Last Admin: 03/06/24 08:07 Dose: 75 mg Documented By: Admin: 03/05/24 07:47 Dose: 75 mg Documented By: PEGGY Docusate Sodium (Docusate Sodium 100 Mg Cap) 100 mg PO BID ABIODUN Stop: 04/03/24 20:59 Last Admin: 03/06/24 08:05 Dose: 100 mg Documented By: Admin: 03/05/24 20:25 Dose: 100 mg Documented By: Admin: 03/05/24 07:57 Dose: 100 mg Documented By: Admin: 03/04/24 23:45 Dose: 100 mg Documented By: EVERTON Fluticasone Propionate (Fluticasone Propionate Na Spr 16 Gm Btl) 2 sprays LUIS A DAILY [facility] Stop: 04/04/24 08:59 Last Admin: 03/06/24 08:08 Dose: 2 sprays Documented By: Admin: 03/05/24 07:53 Dose: 2 sprays Documented By: PEGGY Furosemide (Furosemide 40 Mg Tab) 40 mg PO QAM [facility] Stop: 04/04/24 08:59 Last Admin: 03/06/24 08:07 Dose: 40 mg Documented By: Admin: 03/05/24 07:51 Dose: 40 mg Documented By: PEGGY Gabapentin (Gabapentin 300 Mg Cap) 300 mg PO TID [facility] Stop: 04/03/24 20:59 Last Admin: 03/06/24 13:00 Dose: 300 mg Documented By: Admin: 03/06/24 08:07 Dose: 300 mg Documented By: Admin: 03/05/24 20:26 Dose: 300 mg Documented By: Admin: 03/05/24 14:08 Dose: 300 mg Documented By: Admin: 03/05/24 07:52 Dose: 300 mg Documented By: Admin: 03/04/24 23:45 Dose: 300 mg Documented By: EVERTON Cefazolin Sodium (Ancef 2000mg) 2,000 mg in 15 mls @ 3.75 mls/min IV Q8H ABIODUN Stop: 04/17/24 07:59 Last Admin: 03/06/24 08:15 Dose: 3.75 mls/min Documented By: KAREN Insulin Aspart (Insulin Aspart Per Unit Charge) 0 units SC ACHS [facility] Stop: 04/03/24 20:59 Last Admin: 03/06/24 12:57 Dose: 5 units Documented By: KAREN Co-signed By: QUINN Admin: 03/06/24 09:14 Dose: 5 units Documented By: KAREN Co-signed By: ROSA Admin: 03/05/24 20:18 Dose: Not Given Documented By: Admin: 03/05/24 17:51 Dose: 5 units Documented By: PEGGY Co-signed By: [id number] Admin: 03/05/24 12:46 Dose: 4 units Documented By: PEGGY Co-signed By: [id number] Admin: 03/05/24 08:36 Dose: 9 units Documented By: PEGGY Co-signed By: [id number] Admin: 03/04/24 23:01 Dose: Not Given Documented By: EVERTON Insulin Glargine (Lantus Per Unit Charge) 0 - 10 units SQ BID [facility] Stop: 04/03/24 20:59 Last Admin: 03/06/24 09:07 Dose: Not Given Documented By: Admin: 03/05/24 20:18 Dose: Not Given Documented By: Admin: 03/05/24 08:36 Dose: 8 units Documented By: PEGGY Co-signed By: [id number] Admin: 03/04/24 23:02 Dose: Not Given Documented By: EVERTON Loratadine (Loratadine 10 Mg Tab) 10 mg PO QAM [facility] Stop: 04/04/24 08:59 Last Admin: 03/06/24 08:08 Dose: 10 mg Documented By: Admin: 03/05/24 07:46 Dose: 10 mg Documented By: PEGGY Lorazepam (Lorazepam 1 Mg Tab) 1 mg PO HS PRN PRN Reason: Anxiety/Insomnia Stop: 04/03/24 19:25 Last Admin: 03/05/24 20:25 Dose: 1 mg Documented By: ATIYA Magnesium Oxide (Magnesium Oxide 400 Mg Tab) 400 mg PO QAM [facility] Stop: 04/04/24 08:59 Last Admin: 03/06/24 08:06 Dose: 400 mg Documented By: Admin: 03/05/24 07:46 Dose: 400 mg Documented By: PEGGY Melatonin (Melatonin 3 Mg Tab) 3 mg PO HS [facility] Stop: 04/03/24 20:59 Last Admin: 03/05/24 20:25 Dose: 3 mg Documented By: Admin: 03/04/24 23:45 Dose: 3 mg Documented By: EVERTON Metoprolol Succinate (Metoprolol Succ 25mg Ext Rel Tab) 25 mg PO QAM [facility] Stop: 04/04/24 08:59 Last Admin: 03/06/24 08:06 Dose: 25 mg Documented By: Admin: 03/05/24 07:50 Dose: 25 mg Documented By: PEGGY Midodrine (Midodrine Hcl 2.5 Mg Tab) 2.5 mg PO BID17 [facility] Stop: 04/04/24 08:59 Last Admin: 03/06/24 08:06 Dose: 2.5 mg Documented By: Admin: 03/05/24 16:04 Dose: 2.5 mg Documented By: Admin: 03/05/24 07:50 Dose: 2.5 mg Documented By: PEGGY Mirtazapine (Mirtazapine Tab 15 Mg Tab) 30 mg PO [facility] Stop: 04/03/24 20:59 Last Admin: 03/05/24 20:26 Dose: 30 mg Documented By: Admin: 03/04/24 23:46 Dose: 30 mg Documented By: EVERTON Multivitamins/Minerals (Cerovite Adv Formula Tab) [facility] Stop: 04/04/24 08:59 Last Admin: 03/06/24 08:10 Dose: Not Given Documented By: Admin: 03/05/24 07:54 Dose: 1 tab Documented By: PEGGY Nystatin (Nystatin Powder 15gm Btl) 1 appln EXT DAILY [facility] Stop: 04/04/24 08:59 Last Admin: 03/06/24 08:10 Dose: 1 appln Documented By: Admin: 03/05/24 07:53 Dose: 1 appln Documented By: PEGGY Potassium Chloride (Potassium Chloride Crtab 20 Meq Tabcr) 20 meq PO QAM [facility] Stop: 04/04/24 08:59 Last Admin: 03/06/24 08:05 Dose: 20 meq Documented By: Admin: 03/05/24 08:01 Dose: 20 meq Documented By: PEGGY Warfarin Sodium (Warfarin Sod 2 Mg Tab) 2 mg PO SUTUFR@1600 [facility] Stop: 04/04/24 15:59 Last Admin: 03/05/24 16:04 Dose: 2 mg Documented By: PEGGY Warfarin Sodium (Warfarin Sod 1 Mg Tab) 1 mg PO MOWETHSA@1600 [facility] Stop: 04/03/24 20:59 Last Admin: 03/04/24 23:43 Dose: 1 mg Documented By: EVERTON Zolpidem Tartrate (Zolpidem Tartrate 5 Mg Tab) 5 mg PO QPM PRN PRN Reason: Insomnia Stop: 04/03/24 19:25 Last Admin: 03/05/24 23:56 Dose: 5 mg Documented By: Admin: 03/05/24 00:40 Dose: 5 mg Documented By: EVERTON Discontinued Medications Bisacodyl (Bisacodyl 10 Mg Supp) 10 mg GA NOW STA Stop: 03/04/24 18:23 Last Admin: 03/04/24 19:16 Dose: Not Given Documented By: OFELIA Bisacodyl (Bisacodyl 10 Mg Supp) 10 mg GA NOW STA Stop: 03/05/24 10:20 Last Admin: 03/05/24 10:28 Dose: 10 mg Documented By: PEGGY Cefepime HCl (Maxipime 2000mg) 2,000 mg in 20 mls @ 5 mls/min IV NOW STA; Protocol Stop: 03/04/24 13:38 Last Admin: 03/04/24 15:23 Dose: 5 mls/min Documented By: OFELIA Metronidazole (Flagyl) 500 mg in 100 mls @ 100 mls/hr IV NOW STA; Protocol Stop: 03/04/24 14:34 Last Infusion: 03/04/24 16:32 Dose: Infused Documented By: Admin: 03/04/24 15:31 Dose: 100 mls/hr Documented By: OFELIA Vancomycin HCl 2,000 mg/ (Dextrose) 540 mls @ 200 mls/hr IV NOW ONE Stop: 03/04/24 17:48 Last Infusion: 03/04/24 19:42 Dose: Infused Documented By: Admin: 03/04/24 16:29 Dose: 200 mls/hr Documented By: OFELIA Heparin Sodium/Dextrose (Heparin Sodium/Dextrose) 25,000 units in 500 mls @ 29 mls/hr IV .[id number] [facility]; Protocol Stop: 04/03/24 18:44 Last Admin: 03/04/24 19:16 Dose: Not Given Documented By: OFELIA Cefepime HCl (Maxipime 2000mg) 2,000 mg in 20 mls @ 5 mls/min IV Q12H ABIODUN; Protocol Stop: 03/12/24 02:59 Last Admin: 03/06/24 03:56 Dose: 5 mls/min Documented By: Admin: 03/05/24 14:08 Dose: 5 mls/min Documented By: Admin: 03/05/24 03:51 Dose: 5 mls/min Documented By: EVERTON Metronidazole (Flagyl) 500 mg in 100 mls @ 100 mls/hr IV Q8H ABIODUN; Protocol Stop: 03/11/24 22:59 Last Infusion: 03/05/24 15:26 Dose: Infused Documented By: Admin: 03/05/24 14:09 Dose: 100 mls/hr Documented By: Infusion: 03/05/24 10:08 Dose: Infused Documented By: Admin: 03/05/24 08:56 Dose: 100 mls/hr Documented By: Infusion: 03/05/24 01:45 Dose: Infused Documented By: Admin: 03/05/24 00:40 Dose: 100 mls/hr Documented By: EVERTON Vancomycin HCl 1,250 mg/ (Dextrose) 275 mls @ 200 mls/hr IV Q24H ABIODUN Stop: 03/07/24 07:59 Last Infusion: 03/05/24 10:23 Dose: Infused Documented By: Admin: 03/05/24 08:56 Dose: 200 mls/hr Documented By: PEGGY Magnesium Hydroxide (Magnesium Hydroxide Susp 30 Ml Udc) 30 ml PO NOW ONE Stop: 03/05/24 10:20 Last Admin: 03/05/24 10:28 Dose: 30 ml Documented By: PEGGY Multivitamins/Minerals (Cerovite Adv Formula Tab) 1 tab PO DAILY ABIODUN Stop: 04/04/24 08:59 Last Admin: 03/06/24 08:06 Dose: 1 tab Documented By: Admin: 03/05/24 07:52 Dose: 1 tab Documented By: PEGGY Imaging Data Radiologist's Impression: Chest X-Ray 03/04/24 13:35 XR chest 1V portable CLINICAL HISTORY: Sepsis. COMPARISON STUDY: Chest radiograph December 19, 2023. Chest CT July 18, 2017. FINDINGS: Left subclavian pacer is in place. Low lung volumes are unchanged. There is no pneumothorax. There are trace bilateral pleural effusions. Mild left basilar opacity is present. There is cardiomegaly with overt pulmonary edema. IMPRESSION: 1. Left basilar opacity which could reflect pneumonia or atelectasis. 2. Cardiomegaly without overt pulmonary edema. 3. Trace bilateral pleural effusions. ACT 112: Negative or not required by law. Electronically signed by: Dieudonne Roy M.D. 03/04/2024 2:18 PM Foot X-Ray 03/04/24 13:36 XR foot LT min 3V routine HISTORY: 88 years-old Male 3rd digit open acute sepsis with soft tissue wound and possible osteomyelitis COMPARISON: 09/26/2023 TECHNIQUE: 3 views of the left foot FINDINGS: Arterial calcifications. Demineralized appearance to the bones. Diffuse soft tissue swelling. Bandages overlying the third and fourth toes limits the study. Prior partial resection of the fifth digit. No acute fracture or dislocation. Chronic cortical thickening of the distal tibia and fibula. Equivocal bony erosions of the third distal phalanx. IMPRESSION: 1. Limited exam secondary to bone demineralization and gauze material overlying the third and fourth distal toes. 2. Equivocal bony erosion/osteomyelitis of the third distal phalanx. Repeat study following removal of the bandage is recommended. ACT 112: Negative or not required by law. The above report was generated using voice recognition software. It may contain grammatical, syntax or spelling errors. Electronically signed by: Ollie Hendrix M.D. 03/04/2024 2:02 PM Discharge Plan Visit Data Chief Complaint: Toe Injury/Pain Stated Complaint: TOE INJURED ED Provider: Elie Carr Discharge Problem: Osteomyelitis, Diabetic ulcer of toe of right foot, Atrial fibrillation Patient Disposition: Admitted As Inpatient Discharge Instructions Interventions: ED Discharge Assessment Last Done: 03/04/24 21:19 Discharge Problem: Osteomyelitis Qualifiers: Osteomyelitis type: unspecified type Osteomyelitis location: foot Laterality: l eft Qualified Code(s): M86.9 - Osteomyelitis, unspecified
--- NOTE | 2024-03-04 14:03 | XRay Report ---
XR foot LT min 3V routine HISTORY: 88 years-old Male 3rd digit open acute sepsis with soft tissue wound and possible osteomyel itis COMPARISON: 09/26/2023 TECHNIQUE: 3 views of the left foot FINDINGS: Arterial calcifications. Demineralized appearance to the bones. Diffuse soft tissue swelling. Bandage s overlying the third and fourth toes limits the study. Prior partial resection of the fifth digit. N o acute fracture or dislocation. Chronic cortical thickening of the distal tibia and fibula. Equivoca l bony erosions of the third distal phalanx. IMPRESSION: 1. Limited exam secondary to bone demineralization and gauze material overlying the third and fourth distal toes. 2. Equivocal bony erosion/osteomyelitis of the third distal phalanx. Repeat study following removal o f the bandage is recommended. ACT 112: Negative or not required by law. The above report was generated using voice recognition software. It may contain grammatical, syntax o r spelling errors. Electronically signed by: Ollie Hendrix M.D. 03/04/2024 2:02 PM
[2024-03-04 14:09] LABS: Basophils # (auto) 0.05 K/uL (0.00-0.20); Basophils % (auto) 0.6 %; Eosinophils # (auto) 0.08 K/uL (0.00-0.50); Eosinophils % (auto) 0.9 %; Hemoglobin 13.1 g/dl (14.0-18.0); Immature Granulocytes # (auto) 0.06 K/uL (0.01-0.20); Immature Granulocytes % (auto) 0.7 %; Lymphocytes # (auto) 1.42 K/uL (1.20-3.40); Lymphocytes % (auto) 15.9 %; Mean Corpuscular Hgb Conc 32.8 g/dL (32.0-36.0); Mean Corpuscular Volume 88.7 fL (80.0-100.0); Mean Platelet Volume 9.3 fL (9.4-12.4); Monocytes # (auto) 0.64 K/uL (0.11-0.59); Monocytes % (auto) 7.2 %; Neutrophils % (auto) 74.7 %; Platelet Count 258 K/uL (130-400); RDW Coefficient of Variation 16.8 % (11.5-14.5); RDW Standard Deviation 54.1 fL (36.4-46.3); Red Blood Count 4.51 M/uL (4.70-6.10); White Blood Count 8.95 K/ul (4.8-10.8)
[2024-03-04 14:17] LABS: Appearance Urine Clear (Clear); Bacteria Urine Automated 1+ (None Seen); Bilirubin Urine Negative (Negative); Blood Urine Negative (Negative); Cast Urine Automated 0-2 /lpf (0-2); Color Urine Yellow; Epithelial Cell Urine Auto 0-2 /hpf (0-2); Glucose Urine UA Negative (Negative); Ketones Urine Negative (Negative); Leukocyte Esterase Urine 3+ (Negative); Nitrite Urine Positive (Negative); Protein Urine Negative (Negative); RBC Urine Automated 0-2 /hpf (0-2); Specific Gravity Urine 1.008 (1.000-1.030); Urobilinogen Urine Negative (Negative); WBC Urine Automated 21-50 /hpf (0-5)
--- NOTE | 2024-03-04 14:19 | XRay Report ---
XR chest 1V portable CLINICAL HISTORY: Sepsis. COMPARISON STUDY: Chest radiograph December 19, 2023. Chest CT July 18, 2017. FINDINGS: Left subclavian pacer is in place. Low lung volumes are unchanged. There is no pneumothorax . There are trace bilateral pleural effusions. Mild left basilar opacity is present. There is cardiom egaly with overt pulmonary edema. IMPRESSION: 1. Left basilar opacity which could reflect pneumonia or atelectasis. 2. Cardiomegaly without overt pulmonary edema. 3. Trace bilateral pleural effusions. ACT 112: Negative or not required by law. Electronically signed by: Dieudonne Roy M.D. 03/04/2024 2:18 PM
[2024-03-04 14:24] LABS: Albumin Level 3.3 gm/dl (3.4-5.0); Bilirubin Direct 0.1 mg/dl (0-0.2); Bilirubin,Total 0.4 mg/dl (0.2-1.0); Calcium 8.7 mg/dl (8.6-10.3); Potassium 4.1 mmol/L (3.5-5.1)
[2024-03-04 14:30] LABS: BUN Creatinine Ratio 16.3 (10-20); Creatinine Clr Calc Pharmacy 46.9 ml/min; Total Protein 6.6 gm/dl (6.0-8.3)
[2024-03-04] MEDS ORDERED: VANCOMYCIN CONSULT ACTIVE PRN (15:07)
[2024-03-04] MEDS: CEFEPIME 2000MG 2,000 MG/20 ML SYR IV STA (15:23)
--- NOTE | 2024-03-04 15:30 | History & Physical Report ---
Date of Service March 04, 2024 Assessment & Plan (1) Diabetic ulcer of toe of left foot: (2) PAD (peripheral artery disease): (3) CKD (chronic kidney disease), stage III: (4) Chronic systolic heart failure: (5) Atrial fibrillation: (6) Diabetes: (7) Pacemaker: (8) Hx: UTI (urinary tract infection): (9) Terry catheter in place: Plan This is an 88yo M with a PMH of PAD requiring multiple interventions (most recently angioplasty and re-stenting of L distal popliteal artery), history of foot wounds, progressive dysphasia, CKD III, SSS s/p pacemaker placement, non- ischemic cardiomyopathy, last EF: 45%, CAD, atrial fibrillation on warfarin, diabetes with neuropathy and other medical problems listed below who was directed to ED by wound care for evaluation of discolored third left toe. Left 3rd toe necrosis LLE cellulitis/ ? osteomyelitis PAD with multiple interventions Recent h/o bilateral TheraSkin graft application of left and right foot by field irrigation worker on 01/09 S/p angioplasty of the left popliteal in-stent occlusion and stenting of distal popliteal into TPT by Dr. Ulrich this past 03/01/24 Afebrile, no leukocytosis, procal negative XR today with equivocal bony erosion/osteomyelitis of the third distal phalanx Started on cefepime, vanco, flagyl in ED with wound and blood cx pending Discussed with Dr. Ulrich - successful stenting procedure on 03/01. Recommends repeating arterial duplex of LLE but unlikely need for further intervention at this time Discussed with Dr. Tran -plans to see him tomorrow around noon, after vascular study results but no plans for OR tomorrow Continue empiric abx Continue coumadin and plavix for now Possible UTI/Catheter associated UTI Recent UTIs in setting of indwelling catheter, is on chronic methenamine suppression On abx as above, recommend terry exchange Urine cx abnormal, reflex cx sent DM II A1c 5.8 in Nov 2023, repeat in AM Basal/bolus insulin while in-patient BSG AC HS Progressive dysphagia Pharyngeal Dysphagia, 2021 Seen by speech during Dec 2023 admission- no acute changes, aspiration precautions Paroxysmal atrial fibrillation Continue amiodarone, Toprol Coumadin for anticoagulation INR daily Sick sinus syndrome s/p Pacemaker Postural hypotension Chronic Heart Failure with Mildly Reduced EF 2D echo from 02/11: LV function mildly reduced. LV wall thickness concentric. EF 45%. Grade I DDx. Appears euvolemic. Continue home regimen of Toprol, Midodrine, lasix CKD III Cr 1.23 (at baseline) Monitor renal function with daily BMP Avoid nephrotoxic agents as able Chronic constipation Bisacodyl 10 MG Rectal Suppository (Dulcolax) - due this evening, ordered DVT Ppx: coumadin Code status: FULL PCP: Shiloh Dispo: admitted to [facility] tele Patient seen in collaboration with Dr. Maldonado. Please see addendum. I spent a total of 80 minutes coordinating, documenting, and providing care for this patient excluding time spent in the performance of separately billed services. History of Present Illness Chief Complaint: L toe ulcer Primary Care Provider: Vianey Matamoros MD This is an 88yo M with a PMH of PAD requiring multiple interventions (most recently angioplasty and re-stenting of L distal popliteal artery), history of foot wounds, progressive dysphasia, CKD III, SSS s/p pacemaker placement, non- ischemic cardiomyopathy, last EF: 45%, CAD, atrial fibrillation on warfarin, diabetes with neuropathy and other medical problems listed below who was directed to ED by wound care for evaluation of discolored third left toe. Patient with extensive history of PAD and wounds, with recent bilateral TheraSkin graft application of left and right foot by field irrigation worker on 01/09. Was then seen by interventional vascular service on 02/12 with note the patient still with nonhealing left toe ulcers. Arterial duplex showed reocclusion of the left popliteal artery stent and patient recently underwent angioplasty of the left popliteal in-stent occlusion and stenting of distal popliteal into TPT by Dr. Ulrich on 03/01. Recommendation to continue dual therapy with Plavix, Coumadin. Was due for repeat vascular testing on 03/15 but presented to ED today per prompting of home wound care nurse due to black appearance of third left toe. Patient denies any fever or chills. Has peripheral neuropathy and therefore no feeling in left lower extremity. Noted that it was starting to get discolored over the weekend but was much more significant today. Has been taking all medications as prescribed. Does think he ran into something with some bruising noted on left lorenzo. No fever, chills, lightheadedness, headache, chest pain, shortness of breath, nausea, vomiting, abdominal pain. Indwelling Terry catheter in place. Issues with chronic constipation and due for Dulcolax suppository today. Allergies Allergy/AdvReac Type Severity Reaction Status Date / Time ampicillin Allergy Intermediate Rash Verified 01/10/24 06:46 Macrolide Antibiotics Allergy Unknown PER Verified 01/10/24 06:46 MEDICAL RECORD sildenafil Allergy Unknown SWELLING Verified 01/10/24 06:46 OF FACE AND HEAD nitrofurantoin AdvReac Diarrhea Verified 01/10/24 06:46 VASODILATORS Allergy Unknown "PERIPHERAL Uncoded 01/10/24 06:46 DILATOR" swelling of face and head Home Medications Medication Instructions Recorded Confirmed Type amiodarone 200 mg tablet 200 mg PO QAM 01/02/18 03/04/24 History insulin glargine 100 unit/mL 16 units DAILY 01/02/18 03/04/24 History subcutaneous solution loratadine 10 mg tablet 10 mg PO QAM 01/02/18 03/04/24 History magnesium oxide 400 mg (241.3 mg 400 mg PO QAM 01/02/18 03/04/24 History magnesium) tablet metoprolol succinate 25 mg 25 mg PO QAM 01/02/18 03/04/24 History tablet,extended release 24 hr gabapentin 300 mg capsule 300 mg PO TID 03/10/18 03/04/24 History docusate sodium 100 mg capsule 100 mg PO BID 04/27/22 03/04/24 History (Colace) mometasone 0.1 % topical solution 1 applic topical .EVERY 24 HOURS 04/27/22 03/04/24 History PRN Itching acetaminophen 325 mg capsule 650 mg PO Q4 PRN PAIN/FEVER 05/10/22 03/04/24 History bisacodyl 10 mg rectal suppository 10 mg [place] .EVERY 24 HOURS PRN 12/01/22 03/04/24 History Constipation calcium 500 mg (as 1 tab PO QAM 12/01/22 03/04/24 History carbonate)-vitamin D3 5 mcg (200 unit) tablet (Oyster Shell Calcium-Vitamin D3) mirtazapine 30 mg tablet (Remeron) 30 mg PO HS 12/01/22 03/04/24 History multivit,stress formula-zinc tablet 1 tab PO DAILY 12/01/22 03/04/24 History midodrine 2.5 mg tablet 2.5 mg PO BID 03/10/23 03/04/24 History zolpidem 5 mg tablet (Ambien) 5 mg PO QPM PRN Insomnia 03/10/23 03/04/24 History furosemide 40 mg tablet 40 mg PO QAM 04/14/23 03/04/24 History ihqotafg-sny- 250 mg-dha 90 1 cap PO QAM 04/14/23 03/04/24 History mg-epa 160 yd-lgdw-hvsn-zeax capsule (Ocuvite Adult 50 Plus) warfarin 2 mg tablet 2 mg PO SUTUFR@1600 04/14/23 03/04/24 History melatonin 5 mg capsule 10 mg PO HS 06/15/23 03/04/24 History potassium chloride 20 mEq 20 meq PO QAM 08/18/23 03/04/24 History tablet,extended release(part/cryst) clopidogrel 75 mg tablet 75 mg PO QAM #90 tabs 10/17/23 03/04/24 Rx nystatin 100,000 unit/gram topical 1 applic topical DAILY #60 grams 10/19/23 03/04/24 Rx powder clobetasol 0.05 % scalp solution 1 applic topical DIRECTED 12/19/23 03/04/24 History fluticasone propionate 50 2 spray intranasal DAILY 12/19/23 03/04/24 History mcg/actuation nasal spray,suspension (Flonase Allergy Relief) ketoconazole 2 % shampoo 1 applic topical DIRECTED 12/19/23 03/04/24 History lorazepam 1 mg tablet 1 mg PO HS 12/19/23 03/04/24 History methenamine hippurate 1 gram tablet 1 g PO QAM 12/19/23 03/04/24 History warfarin 1 mg tablet 1 mg PO MOWETHSA@1600 03/04/24 03/04/24 History Past Med/Surg History Problem List (Updated 03/04/24 @ 20:30 by Christine Mena PA-C) Diabetic ulcer of toe of right foot (Acute) Pressure ulcer of left heel (Acute) UTI due to Klebsiella species Acute UTI (Acute) Wound of sacral region Diabetic ulcer of toe of left foot (Acute) Pressure ulcer of dorsum of left foot, stage 3 (Acute) Pressure ulcer of dorsum of left foot, stage 2 (Acute) Bradycardia Open wound of buttock (Acute) Surgical wound, non healing (Acute) Osteomyelitis of foot, acute (Acute) Diabetic infection of left foot (Acute) PAD (peripheral artery disease) (Chronic) Fungal rash of trunk (Acute) Diabetic ulcer of left foot (Acute) Diabetic ulcer of right great toe (Acute) Sacral pressure ulcer Unstageable pressure ulcer Diabetic foot ulcer (Acute) Abnormal ankle brachial index Encounter for pre-operative examination Chronic pain Pacemaker Complete heart block CKD (chronic kidney disease), stage III Chronic systolic heart failure History of airway aspiration Closed fracture of left proximal humerus History of ESBL E. coli infection Diabetes PAD (peripheral artery disease) (Chronic) Diabetic ulcer of toe associated with diabetes mellitus due to underlying condition, with bone involvement without evidence of necrosis (Acute) Diabetic ulcer of toe (Acute) Diabetic foot ulcer associated with type 2 diabetes mellitus, with fat layer exposed Melanoma Gross hematuria (Acute) Family history of prostate cancer (Acute) UTI (urinary tract infection) (Acute) Urinary retention History of prostate cancer PROSTATECTOMY Discharge planning issues DVT prophylaxis Diabetes mellitus type 2 with complications Atrial fibrillation Coronary artery disease Rectal bleeding (Acute) Medical History Atrial fibrillation pacer > follows with Dr. Dacosta Hx of prostatic malignancy approx 2018 Diabetes Weakness Complicated urinary tract infection COVID-19 Hx: UTI (urinary tract infection) treated for while hospitalized at [facility] Nov 2023 History of ESBL E. coli infection 2020 Open wound of buttock gets wound care 3x weekly History of COVID-19 Dec 19, 2023 > cough/weakness, still coughing > was hospitalized at [facility] Pressure ulcer bilat feet > reason for upcoming procedure > one to right foot, four to left Hx of sepsis Jan 2023 per pt PVD (peripheral vascular disease) Terry catheter in place gets changed monthly Cerebrovascular disease Heart failure follows with Dr. Dacosta Ambulatory dysfunction History of hepatitis B remote hx per pt Renal failure no dialysis History of Mohs micrographic surgery for skin cancer History of melanoma HX MELANOMA, HX MULTIPLE SKIN CA & REMOVED Diabetic neuropathy History of colon cancer HX COLON SURGERY Chronic systolic CHF (congestive heart failure) Hypertension Pacemaker Medtronic > unsure when last checked Lumbar spinal stenosis Generalized OA Dyslipidemia Surgical History Hx of vascular surgery Angio Extremity Unilateral - Genaro Ulrich MD s Fem Pop Balloon Atherectomy - MD linwood Díaz [place] Select Cath Place 3rd Order - Genaro Ulrich MD s Ultrasound Vascular Access - Genaro Ulrich MD 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 History of anesthesia reaction WITH TESTICULAR SURGERY, [facility] - INCREASED BP & HAD TO STAY OVERNIGHT History of cardiac cath unknown how many yrs ago, no stents History of testicular surgery History of colonoscopy MULTIPLE History of tonsillectomy and adenoidectomy History of right hemicolectomy H/O prostatectomy Family History Mother Coronary heart disease Father Heart disease Social History Smoking Status: Never smoker Tobacco Type: Cigarettes Second Hand Exposure: No; Do You Dip or Chew Tobacco: No; Tobacco Cessation Education Requested by Patient: No Hx Alcohol Use: Yes Alcohol type: wine Hx Substance Use: No Preferred Language: Japanese Communication Ability: Effective Hearing Ability: Hard of Hearing Steam Crane Operator Required: No Beliefs That Will Affect Care: None marital status: Single Current Living Situation: Alone Current Living Situation Comment: alone with caregivers during the day current occupational status: retired How many Children do You have: 0 Other Information That Helps Us Care for You: No Feels Safe at Home: Yes Safety Concerns: Feels Safe At This Time Diet: diabetic Diet Comment: Increased protein for healing per chart during the past year weight has: remained stable Assistive Devices: Glasses, Scooter/Electric Scooter and Walker Review of Systems Review of Systems: At least ten systems reviewed and negative except as noted in the HPI. Physical Exam Physical Exam: General Appearance: WD/WN, vitals as above, NAD, sitting up in bed, pleasant, appears chronically ill, frail Head: normocephalic, atraumatic Eyes: normal inspection, PERRL, conjunctivae normal, anicteric sclerae ENT: external ear and nose normal, oropharynx normal Neck: normal visual inspection, trachea midline, no thyromegaly Respiratory: normal respiratory effort, lungs clear to auscultation, no wheeze, rales, rhonchi. No accessory muscle use Cardiovascular: regular rate, rhythm, normal peripheral pulses, no BLE edema. Vessels: no JVD Chest: normal inspection of chest Abdomen/GI: normal bowel sounds, soft, nontender, no hepatosplenomegaly Extremities/Musculoskeletal: no cyanosis or clubbing, extremities motor strength 5/5. LLE with stasis changes, s/p 5th toe amputation, 4th toe appears erythematous, 3rd toe appears necrotic, scant drainage. RLE with diminished DP pulse, bandaged ulcer 2nd toe Neurologic: PERRL, EOMI, accommodation nl, no face palsy, no dysarthria, CN's II-XI intact bilaterally and moves all extremities Psychiatric: A+Ox3, euthymic affect Skin: no rashes, normal color, warm/dry Results & Data Results & Data Vital Signs (Past 12 Hours) Vital Signs Temp Pulse Resp BP Pulse Ox O2 Del Method 03/04/24 13:35 66 20 100 Room Air 03/04/24 13:33 60 22 129/60 98 03/04/24 13:10 69 03/04/24 12:41 36.4 C L 52 L 18 126/56 L 96 Room Air Laboratory Results Short CBC 03/04/24 Range/Units 13:45 WBC 8.95 (4.8-10.8) K/ul Hgb 13.1 L (14.0-18.0) g/dl Hct 40.0 L (42.0-52.0) % Plt Count 258 (130-400) K/uL BMP 03/04/24 13:45 Sodium 137 Potassium 4.1 Chloride 100 Carbon Dioxide 32 BUN 20 Creatinine 1.23 Glucose 167 H Calcium 8.7 Liver Function 03/04/24 Range/Units 13:45 Total Bilirubin 0.4 (0.2-1.0) mg/dl Direct Bilirubin 0.1 (0-0.2) mg/dl AST 26 (13-39) U/L ALT 20 (7-52) U/L Alkaline Phosphatase 103 (34-104) U/L Albumin 3.3 L (3.4-5.0) gm/dl Urine 03/04/24 Range/Units Unknown Urine Color Yellow Urine Appearance Clear (Clear) Urine pH 5.0 (4.5-7.5) Ur Specific [place] 1.008 (1.000-1.030) Urine Protein Negative (Negative) Urine Glucose (UA) Negative (Negative) Diagnostic Findings Chest X-Ray 03/04/24 13:35 XR chest 1V portable CLINICAL HISTORY: Sepsis. COMPARISON STUDY: Chest radiograph December 19, 2023. Chest CT July 18, 2017. FINDINGS: Left subclavian pacer is in place. Low lung volumes are unchanged. There is no pneumothorax. There are trace bilateral pleural effusions. Mild left basilar opacity is present. There is cardiomegaly with overt pulmonary edema. IMPRESSION: 1. Left basilar opacity which could reflect pneumonia or atelectasis. 2. Cardiomegaly without overt pulmonary edema. 3. Trace bilateral pleural effusions. ACT 112: Negative or not required by law. Electronically signed by: Dieudonne Roy M.D. 03/04/2024 2:18 PM Foot X-Ray 03/04/24 13:36 XR foot LT min 3V routine HISTORY: 88 years-old Male 3rd digit open acute sepsis with soft tissue wound and possible osteomyelitis COMPARISON: 09/26/2023 TECHNIQUE: 3 views of the left foot FINDINGS: Arterial calcifications. Demineralized appearance to the bones. Diffuse soft tissue swelling. Bandages overlying the third and fourth toes limits the study. Prior partial resection of the fifth digit. No acute fracture or dislocation. Chronic cortical thickening of the distal tibia and fibula. Equivocal bony erosions of the third distal phalanx. IMPRESSION: 1. Limited exam secondary to bone demineralization and gauze material overlying the third and fourth distal toes. 2. Equivocal bony erosion/osteomyelitis of the third distal phalanx. Repeat study following removal of the bandage is recommended. ACT 112: Negative or not required by law. The above report was generated using voice recognition software. It may contain grammatical, syntax or spelling errors. Electronically signed by: Ollie Hendrix M.D. 03/04/2024 2:02 PM Supervising Physician Co-Signing Physician Notes 88-year-old male with PMH of PAD requiring multiple interventions [most recent angioplasty and re-stenting of the left distal popliteal artery on last Monday], foot wounds, progressive dysphasia, CKD stage III, SSS status post pacemaker placement, nonischemic cardiomyopathy, A-fib on warfarin, diabetes with neuropathy was referred to the ED by wound care for evaluation of discolored third left toe. Patient with recent bilateral TheraSkin graft application of left and right foot on 01/09, and recent re-stenting of the left popliteal artery of in-stent occlusion on 03/01. Patient denies fever or chills, patient has peripheral neuropathy and hence does not feel pain or warmth in the lower extremity. Patient reports discoloration/erythema of his third and fourth toe respectively. Patient denies sore throat/cough/fever. Labs and imagings reviewed. WBC WNL, renal functions WNL, LFT WNL, procalcitonin negative, UA suggestive of UTI. CXR likely left basilar atelectasis, patient lacks signs and symptoms of pneumonia. X-ray foot left: equivocal bony erosion/osteomyelitis of the third distal phalanx. Active problems: LLE cellulitis/?osteomyelitis: Continue with vancomycin, cefepime, metronidazole. Add probiotic. Follow admitting blood and wound culture. ID consult, podiatry consult. Left third toe necrosis: Arterial duplex LE Left to rule out in-stent thrombosis, vascular surgery consult. WOCN consult. Possible UTI/Catheter associated UTI: Patient on antibiotic as above. follow urine culture. Recommend Terry exchange. On exam: GENERAL: Alert and oriented x3. NAD, on RA. slow to respond, appropriate response. appears elderly/weak/ill/frail. HEENT: No pallor, no icterus. Pupils equal, round and reactive to light. Oral mucosa moist. NECK: No JVD, no neck masses. HEART: S1 and S2 heard. Regular rate and rhythm. No murmur, no gallop. RESPIRATORY SYSTEM: Normal AP diameter. No accessory muscle use. No wheezing, no crackles. ABDOMEN: Soft, bowel sounds present, nontender, no distention. CENTRAL NERVOUS SYSTEM: No facial droop. Speech is clear. Obeys simple commands. Moves extremities. EXTREMITIES: 1 + BLE edema. pt doesn't have sensation x LE due to neuropathy RLE - Weak dorsalis pedis pulse, unkempt toe nails, no s/s infection. LLE - 5th toe amputation noted, 4th toe erythematous/warmth, 3rd toe necrotic appearing. Urinary cath in situ, light urine collection noted in the bag. I have seen and examined the patient and have discussed the case with the provider above. I agree with the assessment and plan as stated. Time spent: 30 min (1) Diabetic ulcer of toe of left foot Diabetes mellitus type: type 2 Non-pressure ulcer stage: limited to breakdown of skin Qualified Code(s): E11.621 - Type 2 diabetes mellitus with foot ulcer; L97.521 - Non-pressure chronic ulcer of other part of left foot limited to breakdown of skin (5) Atrial fibrillation Atrial fibrillation type: unspecified Qualified Code(s): I48.91 - Unspecified atrial fibrillation
[2024-03-04] MEDS: metroNIDAZOLE 500 MG/100 ML BAG IV STA (15:31)
[2024-03-04] MEDS: VANCOMYCIN HCL 2,000 MG in DEXTROSE 5% 500 ML IV ONE (16:29)
[2024-03-04 17:50] LABS: INR 1.6 (0.9-1.1); Prothrombin Time 16.3 Seconds (9.0-12.0)
[2024-03-04] MEDS ORDERED: Heparin IV Adult Wt-Based Standard *NO* INITIAL Bolus Protocol IV SCH (18:25)
[2024-03-04] MEDS: HEPARIN SODIUM/DEXTROSE 25,000 UNITS/500 ML BAG IV SCH (19:16)
[2024-03-04] MEDS: bisacodyL 10 MG SUPP PR STA (19:16)
[2024-03-04] MEDS ORDERED: GLUCOSE 40% GEL 15 GM TUBE PO PRN (19:26)
[2024-03-04] MEDS ORDERED: ONDANSETRON INJ 2 MG/ML 2 ML VIAL IV PRN (19:26)
[2024-03-04] MEDS ORDERED: GLUCAGON FOR INJ 1 MG VIAL SQ PRN (19:26)
[2024-03-04] MEDS ORDERED: DEXTROSE 50% 50 ML SYRINGE IV PRN (19:26)
[2024-03-04] MEDS ORDERED: GLUCOSE 10 TAB/TUBE PO PRN (19:26)
[2024-03-04] MEDS ORDERED: bisacodyL 10 MG SUPP PR PRN (19:26)
[2024-03-04] MEDS ORDERED: CARBOHYDRATES FOR HYPOGLYCEMIA PO PRN (19:26)
[2024-03-04] MEDS ORDERED: POLYETHYLENE (MIRALAX) 17 GM PACK PO PRN (19:26)
[2024-03-04] MEDS ORDERED: ACETAMINOPHEN 325 MG TAB PO PRN (19:26)
--- OUTSIDE RECORDS SUMMARY | 2024-03-04 20:31 | External Medical Summary | Summary of Care ---
Author Name Unknown Organization [facility] Address [address] [place] [address] Phone [phone] Care Team Providers Care Instrument Processing Tech Name Role Phone Vianey Matamoros MD Primary Care Provider [phone] Encounter Details Date Type Department Care Team (Late st Contact Info) Description 03/01/2024 Result Scan Unspecified Department Cali Dacosta, DO [address] [place] [address] <No scans attached> Allergies Active Allergy Reactions Criticality Noted Date Comments Ampicillin Rash Medium 02/28/2023 Losartan Potassium Flushing Low 01/06/2010 Environmental 07/22/2002 Hayfever, dust, mold Macrolides And Ketolides 11/27/2017 Nitrofurantoin Diarrhea,Nausea/vomi t ing 04/27/2022 Sildenafil 11/27/2017 Streptomycin 11/27/2017 Sulfites 12/05/2009 Sulfur Anaphylaxis High 08/21/2023 Sulfur trioxide Vasopressin 11/27/2017 documented as of this encounter (statuses as of 03/01/2024) Medications Acetaminophen 325 MG Oral Tablet Take 1 Tablet by mouth every 6 hours as needed for Pain. Active Multiple Vitamins-Minerals (OCUVITE ADULT FORMULA) CAPS Take 1 Cap by mouth daily. 30 Cap 018 Active loratadine (CLARITIN) 10 MG TabletIndications :Allergic rhinitis, unspecified seasonality, unspecified trigger TAKE 1 TAB BY MOUTH DAILY. 30 Tab 5 018 Active Magnesium Oxide (MAG-OX 400) 400 MG TabletIndications :Heart failure, etiology unknown (HCC) Take 1 Tab by mouth daily. 30 Tab 018 Active Calcium Carbonate-Vitamin D (CALCIUM-D) 600-400 MG-UNIT per tablet Take 1 Tab by mouth 2 times a day. Active Docusate Sodium 100 MG Oral Capsule (Colace) Take 1 Capsule by mouth in the morning and 1 Capsule before bedtime. 120 Capsule 023 Active Mometasone Furoate 0.1 % External Solution (Elocon) Apply topically to affected area daily. To affected area. 30 mL 023 Active Stress Formula (w/ Minerals) Oral Tablet Take 1 Tablet by mouth in the morning. Active Melatonin 5 MG Oral TabletIndications :Chronic insomnia Take 1 Tablet by mouth at bedtime. 30 Tablet 024 Active Additional Information Patient taking differently:5 mg Oral HS,Takes 2 tablets at bedtime, Reported on 12/05/2023 Mirtazapine 30 MG Oral Tablet (Remeron)Indicati ons:Chronic insomnia,Depressi on with anxiety Take 1 Tablet by mouth every night at bedtime. 90 Tablet 3 024 Active Midodrine HCl 2.5 MG Oral Tablet (Proamatine)Indic ations:Syncope and collapse Take 1 Tablet by mouth in the morning and 1 Tablet before bedtime. 180 Tablet 3 024 Active Metoprolol Succinate ER 25 MG Oral Tablet Extended Release 24 Hour (toPROL XL)Indications:He art failure, systolic, due to CAD (HCC) Take 1 Tablet by mouth in the morning. 90 Tablet 3 024 Active Ketoconazole 2 % External Shampoo (Nizoral)Indicati ons:Seborrheic dermatitis of scalp Lather into scalp. Leave in for 5 minutes, then rinse. Do this 2-3 times per week 120 mL 5 024 Active Clobetasol Propionate 0.05 % External SolutionIndicatio ns:Seborrheic dermatitis of scalp Apply several drops to scalp once daily 50 mL 5 024 Active Methenamine Hippurate 1 GM Oral Tablet (Hiprex) Take 1 Tablet by mouth in the morning. 024 Active Nystop 158860 UNIT/GM External Powder 024 Active OneTouch Ultra In Vitro Strip (Glucose Blood)Indications :Type 2 diabetes mellitus with hemoglobin A1c goal of less than 8.0% ([facility]) TEST 2 TIMES A DAY DIRECTED 200 Strip 3 024 Active Unilet ComforTouch Lancet Use to test blood sugar twice daily. 200 Each 3 024 Active Furosemide 40 MG Oral Tablet (Lasix)Indication s:Heart failure, systolic, due to CAD ([facility]) Take 1 Tablet by mouth in the morning. 90 Tablet 3 024 Active Gabapentin 300 MG Oral Capsule (Neurontin)Indica tions:Diabetic polyneuropathy associated with diabetes mellitus due to underlying condition ([facility]) Take 1 Capsule by mouth in the morning and 1 Capsule at noon and 1 Capsule before bedtime. 270 Capsule 3 024 Active Warfarin Sodium 1 MG Oral Tablet (Coumadin)Indicat ions:Chronic atrial fibrillation ([facility]) Take one tab by mouth daily, OR Take as directed by anticoagulation pharmacist 90 Tablet 2 024 Active Warfarin Sodium 2 MG Oral Tablet (Coumadin) Take 1 tablet 3 times weekly OR as directed by anticoagulation pharmacist 40 Tablet 3 024 Active Potassium Chloride Zofia ER 20 MEQ Oral Tablet Extended ReleaseIndication s:Hypokalemia TAKE 1 TABLET BY MOUTH DAILY IN THE MORNING 90 Tablet 1 024 Active Bisacodyl 10 MG Rectal Suppository (Dulcolax)Indicat ions:Chronic constipation Administer 1 Suppository into the rectum daily as needed for Constipation. 30 Suppository 024 Active Insulin Glargine 100 UNIT/ML Subcutaneous Solution (Lantus)Indicatio ns:Type 2 diabetes mellitus with hemoglobin A1c goal of less than 8.0% ([facility]) Inject 16 Units under the skin in the morning. 15 mL 2 024 Active Zolpidem Tartrate 5 MG Oral Tablet (Ambien)Indicatio ns:Chronic insomnia TAKE 1 TABLET AT BEDTIME NEEDED FOR SLEEP 90 Tablet 024 Active Amiodarone HCl 200 MG Oral Tablet (Cordarone)Indica tions:Chronic atrial fibrillation ([facility]) Take 1 Tablet by mouth in the morning. 90 Tablet 3 024 Active Clindamycin Phosphate 1 % External LotionIndications :Folliculitis Apply daily to rash on back of neck 60 mL 3 024 Active Clopidogrel Bisulfate 75 MG Oral Tablet (pLAVix) Take 1 Tablet by mouth in the morning. 90 Tablet 024 Active LORazepam 1 MG Oral Tablet (Ativan)Indicatio ns:Chronic insomnia,Depressi on with anxiety Take 1 Tablet by mouth at bedtime as needed for Anxiety. 90 Tablet 024 Active Nystatin PowderIndications :Pressure injury of sacral region, unstageable (HCC) Apply to buttock over clotrimazole cream twice daily. 1 Each 2 024 Active Sure Comfort Insulin Syringe 30G X 1/2" 0.5 ML (Insulin Syringe-Needle U-100)Indications :Type 2 diabetes mellitus with hemoglobin A1c goal of less than 8.0% (HCC) Use once daily with Lantus 100 Each 1 Active documented as of this encounter (statuses as of 03/01/2024) Active Problems Problem Noted Date Diagnosed Date Bilateral great toes ulcers 01/29/2024 Pressure injury of left heel, stage 2 04/27/2023 Atherosclerosis of [place] ar teries of left leg with ulceration of other part of foot 04/27/2023 S/P amputation of lesser toe, left 03/02/2023 Pressure sore on buttocks, right, unstageable Pressure ulcer of left buttock, unstageable 12/2022 History of humerus fracture 06/30/2022 Aspiration into airway, sequela 03/31/2022 Overview (03/31/2022): thin liquids with the chin tuck method, not thickened liquids per SP Bilateral exudative age-related macular degenera tion 05/18/2021 H/O dysplastic nevus 03/11/2021 Overview (03/11/2021): Low grade dysplastic nevus (R posterior thigh) [...] History of malignant melanoma of skin 05/08/2017 Overview (03/11/2021): melanoma in situ (right chest 07/31 regression to 0.7mm, R posterior shoulder 06/14) Hx of nonmelanoma skin cancer 05/08/2017 Overview (03/15/2021): squamous cell carcinoma (R helical rim , 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 Type 2 diabetes mellitus wit h hemoglobin A1c goal of less than 8.0% 02/19/2009 Overview (08/20/2015): Per Diabetes Taxonomy. ICD-10 update of inactive term Left acoustic neuroma 06/02/2008 JOINT PAIN-L-LEG 06/23/2005 VRL HEPATITIS B W/O MENT. OF HEPATIC COMA, ACUTE OR UNSPEC., WITHOUT MENT. OF 01/24/2002 Depression with anxiety Insomnia Overview (01/23/2017): ICD-10 update of inactive term GENERAL OSTEOARTHROSIS Chronic coronary artery disease Overview (08/13/2007): Significant PDA disease otherwise Ok on cath 07/30 documented as of this encounter (statuses as of 03/01/2024) Resolved Problems Problem Noted Date Diagnosed Date Resolved Date Osteomyelitis of fifth toe of left foot 03/02/2023 04/27/2023 Decubitus ulcer of left heel, stage 4 09/22/2022 03/02/2023 Atherosclerosis of [place] artery of extremity 07/01/19 23 04/27/2023 Chronic [...] colon 07/31/2017 05/02/2018 Colon cancer 07/21/2017 03/02/2023 Overview (02/03/2022): underwent colon resection Irregular bowel habits 06/20/201606/04 Heart failure, systolic, due to CAD 02/25/2015 03/27/2018 Abnormal cardiovascular stress test 11/21/2014 02/27/2017 Frequent PVCs 10/22/2014 02/27/2017 Atrial fibrillation 10/07/2014 06/04/19 19 CHB (complete heart block) 12/30/2013 0 08/16/2017 HTN, goal below 140/90 02/11/201101/07 OBESITY, BMI 30-34 (SEE ACTUAL BMI) 07/16/2009 10/24/2016 Overview (07/16/2009): Per Obesity Taxonomy Heart failure, etiology unknown 02/19/2009 02/14/2013 Overview (02/19/2009): Per Heart Failure Taxonomy Protocol. MALIG MELANOMA TRUNK- excised 07/29/2008 09/03/2008 05/08/2017 Overview (09/03/2008): Dr. Colin Hypertrophy of breast 11/27/20072011 Shortness of breath 08/13/2007 06/04/19 19 Dyslipidemia, goal LDL below 160 08/10/2007 04/06/2009 Overview (04/06/2009): Per Lipid Taxonomy. Urinary incontinence 05/01/2007 012 Overview (01/23/2017): ICD-10 update of inactive term DIAB RENAL MANIF ADULT 04/21/200602/19 Overview (02/19/2009): Per Diabetes Taxonomy. Other bilateral bundle branch block 06/23/2005 02/27/2017 Overview (06/23/2005): Stress ECHO wnl 2003 BENIGN JACKIE CRANIAL NERVE 06/23/2005 Overview (08/02/2005): IMPRESSION: 07/27 MRI NSC 1. 6 x 3 mm acoustic neuroma in the left internal auditory canal. 2. Left parafalcine subdural hygroma as well as right vertex arachnoid cyst. 3. Left sinus disease. 07/28 [facility] [place] [facility] [place]: MRI of brain with and without contrast performed today: MRI revealed an enhancing left intracanalicular tumor measuring ~7mm from medial to lateral. Imp: Stable left IAC enhancing lesion consistent with acoustic neuroma. Bilateral cerumen accumulation ADVANCE DIRECTIVE INFORMATION 10/19/2004 02/26/2024 Overview (10/19/2004): No, Advance Directive brochure given to patient at prior appointment. Syncope and collapse 01/30/2004 017 Overview (06/23/2005): Mri-brain w/wo contrast Addendum 02/10/04- 02/03/04 MRI with white matter changes and an 8 mm ovoid enhancement of L auditory canal along L 7th and 8th neurovascular bundle c/w a small intracnanlicular acoustic neuroma Will recommend an ENT appointment with [facility] [place] [facility] [place]. 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 Type 2 diabetes mellitus wit h hemoglobin A1c goal of less than 7.0% 02/19/2009 Overview (08/18/2015): Per Diabetes Taxonomy. ICD-10 update of inactive term History of colonic polyps Overview (01/23/2017): ICD-10 update of inactive term OBESITY, UNSPECIFIED 010 Overview (07/16/2009): Per Obesity Taxonomy Other allergic rhinitis 12/23 Overview (02/14/2017): ICD-10 update of inactive term Malignant neoplasm of skin 0 05/08/2017 Overview (07/28/2015): ICD-10 update of inactive term CYSTIC KIDNEY DISEASE,UNSPEC. 01/07/2019 Polyp of nasal sinus 018 Deviated nasal septum 2017 MALIGN NEOPL PROSTATE 2017 Diabetic polyneuropathy 05/25 Overview (07/10/2015): ICD-10 update of inactive term Heart failure, etiology unknown 02/19/2009 Overview (02/19/2009): Per Heart Failure Taxonomy Protocol. documented as of this encounter (statuses as of 03/01/2024) Immunizations Name Administration Dates Next Due COVID-19 mRNA, LNP-s, No Pre serve, 2-Dose Series (Dialective) 09/07/2021,02/19/2021,07/03/2020,06/10 COVID-19, LNP-s, No Preserve , Fawad-sucrose, Ages 12+ (Pfizer) 07/03/2020,06/10/2020 Covid-19, Mrna, Lnp-s, Pf, B ivalent, 10 Mcg, IM, 5-11 yrs (Pfizer) 02/11/2022 Covid-19, Mrna, Lnp-s, Pf, B ivalent, 30 Mcg, IM, 12 yrs and above (Dialective) 02/11/2022 H1N1 2009 Influenza, IM 05/08/2009 Pneumococcal Conjugate Vacc, 13 Valent (Prevnar) 03/07/2016 Season Influenza, Quad, PF, Adjuvanted, 65+ Yrs, IM (FLUAD) 01/31/2020 Seasonal Influenza Vac., MDV , IM, 0.5 mL (Fluzone) 02/17/2014,02/14/2013,01/12/2012,01/24,01/06/2010,01/05/2009,02/28/2008 ,03/05/2007,03/11/2006 Seasonal Influenza, High Dos e, Trivalent, PF, IM (Fluzone HD) 12/29/2023,03/11/2018 Seasonal Influenza, PF, 6 M & above, IM , (FluLaval or Fluzone) 03/04/2023,02/04/2022,02/27/2018,02/27,02/25/2015 Seasonal Influenza, Quadriva lent Hd (Fluzone Hd) 12/31/2021,01/11/2021 Seasonal Influenza, Quadriva lent, No Preserve, IM 01/25/2016,02/25/2015 01/25/2016 Seasonal Influenza, Trivalen t, Adjuvanted, 65+ YRS, PF, (Fluad) 01/07/2019 TD - Tetanus/Diptheria (ADULT) 08/10/2007 TD, Preservative [...] Assigned at Male 11/05/2018 12:56 PM EDT Legal Sex Male 5:00 AM EST Gender Identity Male 11/05/2018 12:56 PM EDT Sexual Orientation Straight 11/05/2018 12 :56 PM EDT 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 Not on file Not on file documented as of this encounter Plan of Treatment Upcoming Encounters Date Type Department Care Team (Late st Contact Info) Description 03/12/2024 7:10 AM EST Laboratory Lab Mobile [facility] [address] [place] [address] [facility] [address] [place] [address] 03/13/2024 6:00 AM EST Anticoagulation [facility], Gordon Kilpatrick [address] [place] [address] [place] [address] [facility], [address] [place] [address] 04/02/2024 7:00 AM EST Laboratory Lab [facility] [address] [place] [address] [facility] [address] [place] [address] [address] 04/30/2024 7:00 AM EST Laboratory Lab [facility] [address] [place] [address] [address] [facility] [address] [place] [address] [address] 05/23/2024 1:40 PM EST Office Visit General Internal Medicine [facility] [address] [place] [address] Vianey Matamoros MD [address] [place] [address] 07/01/2024 7:00 AM EDT Laboratory Lab [facility] [address] [facility] [place], [place] [address] [facility] [phone] [facility] [place], [place] [address] 07/02/2024 12:45 PM EDT Office Visit Dermatology [facility] [address] [facility] [place], [place] [address] Kevin Peguero MD [address] [facility] [place] [address] 07/05/2024 10:00 AM EDT Office Visit MOHS Surgery [facility] [address] [facility], [place] [address] Inna Salguero MD [address] [facility] [address] 10/16/2024 1:30 PM EDT Office Visit Hematology/Oncology [facility] [address] [facility] [place], [place] [id number] Bethel Eng MD [address] [facility] [place] [address] Scheduled Procedures Name Priority Associated Diagnoses Date/Ti me COLONOSCOPY FLEXIBLE PROXIMAL DIAGNOSTIC Recall History of colon polyps Health Maintenance Due Date Last Done Comments DXA Scan 1935 Adult Wellness Visit 2001 Albumin/Creatinine Ratio 01/30/2021 020, 02/27/2017, 11/11/2015, Additional history exists Depression Monitoring 06/10/2021 06/10/2020 COVID-19 Vaccine ( season) 2023 02/11/2022, 02/11/2022, 09/07/2021, Additional history exists HbA1c 06/20/2024 12/19/2023, 03/0 10/2023, 04/03/2023, Additional history exists Diabetic Foot Exam 06/21/2024 06/21/2023 (D one elsewhere), 01/31/2020, 09/12/2018, Additional history exists Diabetic Eye Exam 01/22/2025 01/23/2024, (Done elsewhere), 11/02/2023, Additional history exists Colonoscopy 05/13/2025 05/13/2022, 05/2018, 07/18/2017 DTap/Tdap Vaccines (3 - Td or Tdap) 11/05/2028 11/05/2018, 08/10/2007, 08/10/2007, Additional history exists Hepatitis B Vaccine Aged Out 01/24/2002 No longe r eligible based on patient's age to complete this topic Pneumococcal Vaccine: 65+ Years Completed 03/07/2016, 06/22/2000, 02/11/1993 Zoster Vaccines Completed 01/26/2021, 10/23, 05/02/2006 Influenza Vaccine (FLU shot) Completed 09/2023, 03/04/2023, 02/04/2022, Additional history exists HPV (Gardasil) Vaccine Aged Out No lo nger eligible based on patient's age to complete this topic MENINGOCOCCAL (MENACTRA/MENVEO) Aged Out No longer eligible based on patient's age to complete this topic documented as of this encounter Medical Devices Not on filedocumented as of this encounter Procedures Procedure Name Priority Date/Time Associated Diagnosis Comments CARDIOLOGY SCANNED RESULT 03/01/2024 documented in this encounter Results * CARDIOLOGY SCANNED RESULT (03/01/2024) 03/01/2024 Cali Dacosta DO OTHER Final Result documented in this encounter Care Teams Instrument Processing Tech Relationship Specialty Start Date End Date Vianey Matamoros MD [address] [place] [address] PCP - General Internal Medicine 01/11/21 documented as of this encounter
[2024-03-04] MEDS ORDERED: CLOBETASOL PROPIONATE 0.05% CREAM 15 GM TUBE TOP PRN (21:08)
[2024-03-04] MEDS ORDERED: TRIAMCINOLONE ACET 0.1% CR 15 GM TUBE TOP PRN (21:10)
[2024-03-04] MEDS: INSULIN ASPART PER UNIT CHARGE SC SCH (23:01)
[2024-03-04] MEDS: LANTUS PER UNIT CHARGE SQ SCH (23:02)
[2024-03-04] MEDS: WARFARIN SOD 1 MG TAB PO SCH (23:43)
[2024-03-04] MEDS: DOCUSATE SODIUM 100 MG CAP PO SCH (23:45)
[2024-03-04] MEDS: GABAPENTIN 300 MG CAP PO SCH (23:45)
[2024-03-04] MEDS: MELATONIN 3 MG TAB PO SCH (23:45)
[2024-03-04] MEDS: MIRTAZAPINE TAB 15 MG TAB PO SCH (23:46)
[2024-03-05] MEDS: ZOLPIDEM TARTRATE 5 MG TAB PO PRN (00:40)
[2024-03-05] MEDS: metroNIDAZOLE 500 MG/100 ML BAG IV SCH (00:40)
--- NOTE | 2024-03-05 00:42 | Ultrasound Report ---
Exam(s): US ARTERIAL LEFT LOWER EXTREMITY EXAM: US Duplex Left Lower Extremity Arteries CLINICAL HISTORY: Reason for exam: PAD with recent revascularization on 03/01. TECHNIQUE: Real-time duplex ultrasound scan of the left lower extremity arteries integrating B-mode two-dimensional vascular structure, Doppler spectral analysis and color flow Doppler imaging. COMPARISON: No relevant prior studies available. FINDINGS: Left common femoral artery: No acute findings. No occlusion or significant stenosis on color flow and spectral Doppler imaging. Normal waveform. Left superficial femoral artery: No acute findings. No occlusion or significant stenosis on color flow and spectral Doppler imaging. Normal waveform. Left SFA stent Left popliteal artery: No acute findings. No occlusion or significant stenosis on color flow and spectral Doppler imaging. Normal waveform. Left calf/foot arteries: Occlusion of the mid and distal anterior tibial artery reconstitution of the left dorsalis pedis artery. Slow flow seen within the posterior tibial artery distally. Soft tissues: Unremarkable. IMPRESSION: Fluid anterior tibial artery with reconstitution of the dorsalis pedis artery. Slow flow seen within the distal posterior tibial artery. Catheter angiography recommended for further evaluation. Patent left SFA stent Electronically signed by: Dov Mueller MD 03/05/24 00:41 AM
[2024-03-05] MEDS: CEFEPIME 2000MG 2,000 MG/20 ML SYR IV SCH (03:51)
[2024-03-05 06:22] LABS: Hematocrit (blood only) 36.6 % (42.0-52.0); Mean Corpuscular Hemoglobin 28.8 pg (25.0-34.0); Mean Corpuscular Hgb Conc 32.8 g/dL (32.0-36.0); Mean Corpuscular Volume 87.8 fL (80.0-100.0); Mean Platelet Volume 9.3 fL (9.4-12.4); Nucleated RBC # (auto) 0.02 K/uL (0.00-0.12); Nucleated RBC % (auto) 0.3 %; Platelet Count 209 K/uL (130-400); RDW Coefficient of Variation 16.4 % (11.5-14.5); RDW Standard Deviation 53.2 fL (36.4-46.3); Red Blood Count 4.17 M/uL (4.70-6.10); White Blood Count 7.74 K/ul (4.8-10.8)
[2024-03-05 06:36] LABS: Creatinine Clr Calc Pharmacy 46.2 ml/min; Magnesium 1.8 mg/dl (1.7-2.4)
[2024-03-05 07:08] LABS: Estimated Average Glucose 117 mg/dl; Hemoglobin A1C 5.7 % (4.5-5.6)
[2024-03-05 07:09] LABS: INR 1.8 (0.9-1.1); Prothrombin Time 18.1 Seconds (9.0-12.0)
[2024-03-05] MEDS: MAGNESIUM OXIDE 400 MG TAB PO SCH (07:46)
[2024-03-05] MEDS: LORATADINE 10 MG TAB PO SCH (07:46)
[2024-03-05] MEDS: AMIODARONE 200 MG TAB PO SCH (07:47)
[2024-03-05] MEDS: CALCIUM 600MG + VIT D 400 IU TAB PO SCH (07:47)
[2024-03-05] MEDS: CLOPIDOGREL BISULFATE 75 MG TAB PO SCH (07:47)
[2024-03-05] MEDS: METOPROLOL SUCC 25MG EXT REL TAB PO SCH (07:50)
[2024-03-05] MEDS: MIDODRINE HCL 2.5 MG TAB PO SCH (07:50)
[2024-03-05] MEDS: FUROSEMIDE 40 MG TAB PO SCH (07:51)
[2024-03-05] MEDS: CEROVITE ADV FORMULA TAB PO SCH ×2 (07:52→07:54)
[2024-03-05] MEDS: NYSTATIN POWDER 15GM BTL EXT SCH (07:53)
[2024-03-05] MEDS: FLUTICASONE PROPIONATE NA SPR 16 GM BTL NAE SCH (07:53)
[2024-03-05] MEDS: POTASSIUM CHLORIDE CRTAB 20 MEQ TABCR PO SCH (08:01)
[2024-03-05] MEDS: VANCOMYCIN 1,250mg in D5W 250mL (Use w/ NSS Shortage) IV SCH (08:56)
[2024-03-05] MEDS ORDERED: METHENAMINE HIPPURATE 1 GM TAB PO SCH (09:00)
--- NOTE | 2024-03-05 09:29 | Pharmacy Report ---
Pharmacy PK ABX Note - Date of Service March 05, 2024 - Assessment and Plan Assessment 88 year old M receiving vancomycin for empiric treatment of suspected cellulitis with concern of Osteomyelitis Pertinent microbiologic data includes: left third toe culture growing S.aureus. two blood cultures and urine culture are pending. Renal function is near baseline. Day # 2 of antimicrobial therapy. Plan Vancomycin * Loading dose: 2000 mg IV x 1 * Maintenance dose: 1250 mg IV every 24 hours * Regimen is predicted to achieve target AUC/OSMAN of 400-600 mg/L.hr * vancomycin is ordered empirically, we will order level if therapy is continued. Pharmacy will continue to follow and will adjust dose/frequency as necessary. Thank you. Pharmacy has transitioned to AUC monitoring for vancomycin. AUC/OSMAN is the preferred PK/PD target and is associated with decreased risk of nephrotoxicity compared to traditional trough targets.
[2024-03-05] MEDS: bisacodyL 10 MG SUPP PR STA (10:28)
[2024-03-05] MEDS: MAGNESIUM HYDROXIDE SUSP 30 ML UDC PO ONE (10:28)
--- NOTE | 2024-03-05 13:13 | Podiatry Consultation ---
Date of Consultation March 05, 2024 Assessment & Plan (1) Diabetic ulcer of toe of left foot: Discussed with patient that I do feel he is stable for discharge once cleared per medicine who has been caring for him in the hospital, but from the standpoint of the digit he is stable to be discharged. He should be discharged on oral antibiotics especially given the UTI he may be also and additionally having. His white blood cell count is stable. Plan is for outpatient patient will have on March 13 a left foot third and fourth digit amputation. Patient was seen in conjunction with Dr. Ulrich he feels he does have suitable flow for the amputation. Also had a candid discussion with patient that he will likely not have a stable foot type after the amputation and will only be able to likely pivot or transition from his wheelchair into his seat, and there is always the possibility that he may require a more proximal amputation. Patient is understanding. Diabetes mellitus type: type 2 Non-pressure ulcer stage: limited to breakdown of skin Qualified Code(s): E11.621 - Type 2 diabetes mellitus with foot ulcer; L97.521 - Non-pressure chronic ulcer of other part of left foot limited to breakdown of skin (2) PAD (peripheral artery disease): (3) Osteomyelitis of foot, acute: History of Present Illness Reason for Consultation: Dry gangrene left foot third toe Attending Physician: Ravi Orr MD History of Present Illness Patient is a very pleasant 88-year-old seen today at bedside after being admitted due to the onset of a left foot third toe with dry gangrenous changes. He is a known patient to my practice he has a history of diabetes as well as atrial fibrillation and takes chronic Coumadin medication, he has a history of peripheral arterial disease and recently underwent a angioplasty and stenting of the left lower extremity. During the time of the visit patient was seen with his caregiver and also had discussion with Dr. Ulrich who performed his angioplasty. Dr. Ulrich does feel patient has enough arterial flow to heal a third and fourth digit amputation. The anticipated date for this will be on Monday of next week March 13. Patient does not have with regards to the dry gangrenous toe there is no cellulitis and I do think it is suitable for him to have his procedure on Monday. He will need to be bridged given his history of Coumadin use and at my office will contact Alexandra who cares for his Coumadin, with anticipation of performing the procedure on March 13 it will be done at the main OR. I had a very open discussion with patient that there is the risk that he will require a possible more proximal amputation not limited to below the knee amputation if he does not heal this area. The plan is for a left foot third and fourth digit amputation because of the dry gangrenous changes to the left foot third toe and the significant ulcer present on the left foot fourth toe. I also discussed with patient after this procedure and he will likely not be able to walk any significant distance as this will render him with a less stable foot type. Patient is understanding. In addition to his history of his atrial fibrillation and diabetes he also has a pacemaker and a history of chronic kidney disease stage III. All dressings were removed and toe was evaluated at bedside today I found stable appearance of dry gangrenous changes of the left foot third toe, with the ulceration of the left foot fourth toe, additionally patient will need to be discharged on antibiotics and I do feel he is stable for discharge as his white count has been stable I did review some of his lab work and he may also have a UTI likely unrelated to the toe issue. Allergies Allergy/AdvReac Type Severity Reaction Status Date / Time ampicillin Allergy Intermediate Rash Verified 01/10/24 06:46 Macrolide Antibiotics Allergy Unknown PER Verified 01/10/24 06:46 MEDICAL RECORD sildenafil Allergy Unknown SWELLING Verified 01/10/24 06:46 OF FACE AND HEAD nitrofurantoin AdvReac Diarrhea Verified 01/10/24 06:46 VASODILATORS Allergy Unknown "PERIPHERAL Uncoded 01/10/24 06:46 DILATOR" swelling of face and head Home Medications Medication Instructions Recorded Confirmed Type amiodarone 200 mg tablet 200 mg PO QAM 01/02/18 03/04/24 History insulin glargine 100 unit/mL 16 units DAILY 01/02/18 03/04/24 History subcutaneous solution loratadine 10 mg tablet 10 mg PO QAM 01/02/18 03/04/24 History magnesium oxide 400 mg (241.3 mg 400 mg PO QAM 01/02/18 03/04/24 History magnesium) tablet metoprolol succinate 25 mg 25 mg PO QAM 01/02/18 03/04/24 History tablet,extended release 24 hr gabapentin 300 mg capsule 300 mg PO TID 03/10/18 03/04/24 History docusate sodium 100 mg capsule 100 mg PO BID 04/27/22 03/04/24 History (Colace) mometasone 0.1 % topical solution 1 applic topical .EVERY 24 HOURS 04/27/22 03/04/24 History PRN Itching acetaminophen 325 mg capsule 650 mg PO Q4 PRN PAIN/FEVER 05/10/22 03/04/24 History bisacodyl 10 mg rectal suppository 10 mg GA .EVERY 24 HOURS PRN 12/01/22 03/04/24 History Constipation calcium 500 mg (as 1 tab PO QAM 12/01/22 03/04/24 History carbonate)-vitamin D3 5 mcg (200 unit) tablet (Oyster Shell Calcium-Vitamin D3) mirtazapine 30 mg tablet (Remeron) 30 mg PO HS 12/01/22 03/04/24 History multivit,stress formula-zinc tablet 1 tab PO DAILY 12/01/22 03/04/24 History midodrine 2.5 mg tablet 2.5 mg PO BID 03/10/23 03/04/24 History zolpidem 5 mg tablet (Ambien) 5 mg PO QPM PRN Insomnia 03/10/23 03/04/24 History furosemide 40 mg tablet 40 mg PO QAM 04/14/23 03/04/24 History whovoabg-viu-vazjd1 250 mg-dha 90 1 cap PO QAM 04/14/23 03/04/24 History mg-epa 160 we-ovvf-owtj-zeax capsule (Ocuvite Adult 50 Plus) warfarin 2 mg tablet 2 mg PO SUTUFR@1600 04/14/23 03/04/24 History melatonin 5 mg capsule 10 mg PO HS 06/15/23 03/04/24 History potassium chloride 20 mEq 20 meq PO QAM 08/18/23 03/04/24 History tablet,extended release(part/cryst) clopidogrel 75 mg tablet 75 mg PO QAM #90 tabs 10/17/23 03/04/24 Rx nystatin 100,000 unit/gram topical 1 applic topical DAILY #60 grams 10/19/23 03/04/24 Rx powder clobetasol 0.05 % scalp solution 1 applic topical DIRECTED 12/19/23 03/04/24 History fluticasone propionate 50 2 spray intranasal DAILY 12/19/23 03/04/24 History mcg/actuation nasal spray,suspension (Flonase Allergy Relief) ketoconazole 2 % shampoo 1 applic topical DIRECTED 12/19/23 03/04/24 History lorazepam 1 mg tablet 1 mg PO HS 12/19/23 03/04/24 History methenamine hippurate 1 gram tablet 1 g PO QAM 12/19/23 03/04/24 History warfarin 1 mg tablet 1 mg PO MOWETHSA@1600 03/04/24 03/04/24 History Patient History Medical History Atrial fibrillation pacer > follows with Dr. Dacosta Hx of prostatic malignancy approx 2018 Diabetes Weakness Complicated urinary tract infection COVID- Hx: UTI (urinary tract infection) treated for while hospitalized at [facility] Nov 2023 History of ESBL E. coli infection 2020 Open wound of buttock gets wound care 3x weekly History of COVID-19 Dec 19, 2023 > cough/weakness, still coughing > was hospitalized at [facility] Pressure ulcer bilat feet > reason for upcoming procedure > one to right foot, four to left Hx of sepsis Jan 2023 per pt PVD (peripheral vascular disease) Berman catheter in place gets changed monthly Cerebrovascular disease Heart failure follows with Dr. Dacosta Ambulatory dysfunction History of hepatitis B remote hx per pt Renal failure no dialysis History of Mohs micrographic surgery for skin cancer History of melanoma HX MELANOMA, HX MULTIPLE SKIN CA & REMOVED Diabetic neuropathy History of colon cancer HX COLON SURGERY Chronic systolic CHF (congestive heart failure) Hypertension Pacemaker Medtronic > unsure when last checked Lumbar spinal stenosis Generalized OA Dyslipidemia Surgical History Hx of vascular surgery Angio Extremity Unilateral - Genaro Ulrich MD s Fem Pop Balloon Atherectomy - Genaro Ulrich MD s SC Select Cath Place 3rd Order - Genaro Ulrich MD s Ultrasound Vascular Access - Genaro Ulrich MD 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 History of anesthesia reaction WITH TESTICULAR SURGERY, [facility] - INCREASED BP & HAD TO STAY OVERNIGHT History of cardiac cath unknown how many yrs ago, no stents History of testicular surgery History of colonoscopy MULTIPLE History of tonsillectomy and adenoidectomy History of right hemicolectomy H/O prostatectomy Family History Mother Coronary heart disease Father Heart disease Social History Smoking Status: Never smoker Tobacco Type: Cigarettes Second Hand Exposure: No; Do You Dip or Chew Tobacco: No; Tobacco Cessation Education Requested by Patient: No Hx Alcohol Use: Yes Alcohol type: wine Hx Substance Use: No Preferred Language: [place] Communication Ability: Effective Hearing Ability: Hard of Hearing Picker And Packer Required: No Beliefs That Will Affect Care: None marital status: Single Current Living Situation: Alone Current Living Situation Comment: alone with caregivers during the day current occupational status: retired How many Children do You have: 0 Other Information That Helps Us Care for You: No Feels Safe at Home: Yes Safety Concerns: Feels Safe At This Time Diet: diabetic Diet Comment: Increased protein for healing per chart during the past year weight has: remained stable Assistive Devices: Glasses, Scooter/Electric Scooter and Walker Physical Exam Skin: Left foot with all dressings removed there are dry gangrenous changes present to the left foot third toe base of the toe actually has normal coloration remainder of digits have normal capillary refill time there is a significant ulcer present on the left foot fourth toe medial aspect of the digit measuring about 2 cm in diameter. History of recent vascular endovascular procedure. After evaluation dressings then reapplied consisting of Aquacel silver 4 x 4 gauze and rolled gauze. Results & Data Vital Signs (Past 12 Hours) Vital Signs Temp Pulse Pulse Pulse Resp BP Pulse Ox 03/05/24 11:59 36.8 C 59 L 18 138/71 95 03/05/24 07:49 36.6 C 84 18 123/67 98 03/05/24 06:58 60 03/05/24 04:12 36.6 C 60 18 119/56 L 100 O2 Del Method 03/05/24 11:59 Room Air 03/05/24 07:49 Room Air 03/05/24 06:58 03/05/24 04:12 Room Air
[2024-03-05] MEDS: WARFARIN SOD 2 MG TAB PO SCH (16:04)
--- NOTE | 2024-03-05 16:25 | Hospitalist Progress Note ---
Date of Service March 05, 2024 Assessment & Plan (1) Diabetic ulcer of toe of left foot: (2) PAD (peripheral artery disease): (3) CKD (chronic kidney disease), stage III: (4) Chronic systolic heart failure: (5) Atrial fibrillation: (6) Diabetes: (7) Pacemaker: (8) Hx: UTI (urinary tract infection): (9) Terry catheter in place: Plan This is an 88yo M with a PMH of PAD requiring multiple interventions (most recently angioplasty and re-stenting of L distal popliteal artery), history of foot wounds, progressive dysphasia, CKD III, SSS s/p pacemaker placement, non- ischemic cardiomyopathy, last EF: 45%, CAD, atrial fibrillation on warfarin, diabetes with neuropathy and other medical problems listed below who was directed to ED by wound care for evaluation of discolored third left toe. Left 3rd toe necrosis LLE cellulitis Repeat x-ray did show bony erosions involving second proximal phalangeal head suspicious for osteomyelitis PAD with multiple interventions Recent h/o bilateral TheraSkin graft application of left and right foot by faculty administrator on 01/09 S/p angioplasty of the left popliteal in-stent occlusion and stenting of distal popliteal into TPT by Dr. Ulrich this past 03/01/24 Afebrile, no leukocytosis, procal negative Started on cefepime, vanco, flagyl Culture from left third toe showed Staph aureus and Klebsiellasensitivities pending Flagyl has been discontinued Discussed with Dr. Ulrich - successful stenting procedure on 03/01. Recommends repeating arterial duplex of LLE but unlikely need for further intervention at this time Discussed with Dr. Tran -plans to see him tomorrow around noon, after vascular study results but no plans for OR tomorrow The patient was seen by the faculty administrator And plan for surgery on next Monday The patient can be discharged from the vascular surgeon and faculty administrator point of view Will need to continue intravenous antibiotic on discharge until the tube is removed and further decision of antibiotic as per the faculty administrator Likely to need ultrasound-guided peripheral line to continue antibiotic for short course Wound care nurse consulted for the foot cellulitis and as well as possible sacral decubiti as the patient is complaining Possible UTI/Catheter associated UTI Recent UTIs in setting of indwelling catheter, is on chronic methenamine suppression On abx as above, recommend terry exchange Urine cx abnormal, reflex cx sent Urine culture is growing 3 different types of organisms likely contaminant Constipation Uses suppository regularly prior to bowel movement at home Bowel movements 2-3 times per week Has not had a bowel movement for the last 3 or 4 days Denies any significant distention and/or pain in the abdomen Will try suppository and milk of magnesia orally DM II A1c 5.8 in Nov 2023, repeat in AM Basal/bolus insulin while in-patient BSG AC HS Progressive dysphagia Pharyngeal Dysphagia, 2021 Seen by speech during Dec 2023 admission- no acute changes, aspiration precautions Denies any significant problem Paroxysmal atrial fibrillation Continue amiodarone, Toprol Coumadin for anticoagulation INR 1.8 as of 03/05/2024 Sick sinus syndrome s/p Pacemaker Postural hypotension Chronic Heart Failure with Mildly Reduced EF 2D echo from 02/11: LV function mildly reduced. LV wall thickness concentric. EF 45%. Grade I DDx. Appears euvolemic. Continue home regimen of Toprol, Midodrine, lasix CKD III Cr 1.23 (at baseline) Monitor renal function with daily BMP Avoid nephrotoxic agents as able Chronic constipation Bisacodyl 10 MG Rectal Suppository (Dulcolax) - due this evening, ordered DVT Ppx: coumadin Code status: FULL PCP: Shiloh Dispo: admitted to [facility] Admission and Anticipated Discharge Date Admission Date: March 04, 2024 Subjective 03/05/2024 The patient was seen and examined in medical telemetry unit He complaints abdominal discomfort and has not had a bowel movement for the last 3 to 4 days Denies any significant pain in the feet He has also has generalized weakness and low back pain He was transferred from wound care for evaluation of discolored third left toe Review of Systems Review of Systems: All systems reviewed and are unremarkable except as noted below Physical Exam Physical Exam: Lying in bed without any acute distress Constitutional: + ill appearing and average body habitus Eyes: PERRL, conjunctivae normal, anicteric sclerae ENMT: external ear and nose normal, oropharynx normal Neck: trachea midline, no thyromegaly Respiratory: no respiratory distress Auscultation: lungs clear to auscultation bilaterally Cardiovascular: Rate/Rhythm: regular rate and regular rhythm; not tachycardic Heart Sounds: normal S1 and normal S2; no murmur Extremities: + edema ( trace edema bilaterally) Gastrointestinal (Abdomen): Inspection/Auscultation: normal bowel sounds; abdomen not distended Percussion/Palpation: abdomen soft; abdomen nontender Musculoskeletal: No acute arthritis involving any of the joint Minimal ulceration involving the right great and second toe Left foot is bandaged Neurologic: normal touch/pain/proprioception and moves all extremities; no focal motor deficits Lymphatic: no cervical or axillary lymphadenopathy Results & Data Results & Data Vital Signs (Past 12 Hours) Vital Signs Temp Pulse Pulse Pulse Resp BP Pulse Ox 03/05/24 15:42 62 03/05/24 15:34 36.2 C L 60 18 100/61 96 03/05/24 11:59 36.8 C 59 L 18 138/71 95 03/05/24 07:49 36.6 C 84 18 123/67 98 03/05/24 06:58 60 03/05/24 04:12 36.6 C 60 18 119/56 L 100 O2 Del Method 03/05/24 15:42 03/05/24 15:34 Room Air 03/05/24 11:59 Room Air 03/05/24 07:49 Room Air 03/05/24 06:58 03/05/24 04:12 Room Air Laboratory Results Short CBC 03/05/24 Range/Units 05:35 WBC 7.74 (4.8-10.8) K/ul Hgb 12.0 L (14.0-18.0) g/dl Hct 36.6 L (42.0-52.0) % Plt Count 209 (130-400) K/uL BMP 03/05/24 05:35 Sodium 137 Potassium 4.0 Chloride 101 Carbon Dioxide 32 BUN 20 Creatinine 1.25 Glucose 159 H Calcium 8.0 L Medications Administered Current Inpatient Medications Acetaminophen (Acetaminophen 325 Mg Tab) 650 mg PO Q4H PRN PRN Reason: Pain or Fever Stop: 04/03/24 19:25 Amiodarone HCl (Amiodarone 200 Mg Tab) 200 mg PO QAM ABIODUN Stop: 04/04/24 08:59 Last Admin: 03/05/24 07:47 Dose: 200 mg Bisacodyl (Bisacodyl 10 Mg Supp) 10 mg [place] DAILY PRN PRN Reason: Constipation Stop: 04/03/24 19:25 Calcium/Vitamin D (Calcium 600mg + Vit D 400 Iu Tab) 1 tab PO QAM ABIODUN Stop: 04/04/24 08:59 Last Admin: 03/05/24 07:47 Dose: 1 tab Clobetasol Propionate (Clobetasol Propionate 0.05% Cream 15 Gm Tube) 1 appln TOP PRN PRN PRN Reason: HAIR WASH Stop: 04/03/24 21:07 Clopidogrel Bisulfate (Clopidogrel Bisulfate 75 Mg Tab) 75 mg PO QAM [facility] Stop: 04/04/24 08:59 Last Admin: 03/05/24 07:47 Dose: 75 mg Dextrose (Dextrose 50% 50 Ml Syringe) 25 - 50 ml IV UD PRN; Protocol PRN Reason: Hypoglycemia Protocol Stop: 04/03/24 19:25 Docusate Sodium (Docusate Sodium 100 Mg Cap) 100 mg PO BID [facility] Stop: 04/03/24 20:59 Last Admin: 03/05/24 07:57 Dose: 100 mg Fluticasone Propionate (Fluticasone Propionate Na Spr 16 Gm Btl) 2 sprays LUIS A DAILY ABIODUN Stop: 04/04/24 08:59 Last Admin: 03/05/24 07:53 Dose: 2 sprays Furosemide (Furosemide 40 Mg Tab) 40 mg PO QAM ABIODUN Stop: 04/04/24 08:59 Last Admin: 03/05/24 07:51 Dose: 40 mg Gabapentin (Gabapentin 300 Mg Cap) 300 mg PO TID [facility] Stop: 04/03/24 20:59 Last Admin: 03/05/24 14:08 Dose: 300 mg Glucagon (Glucagon For Inj 1 Mg Vial) 1 mg SQ UD PRN; Protocol PRN Reason: Hypoglycemia Protocol Stop: 04/03/24 19:25 Glucose (Glucose 40% Gel 15 Gm Tube) 15 - 30 gm PO UD PRN; Protocol PRN Reason: Hypoglycemia Protocol Stop: 04/03/24 19:25 Glucose (Glucose 10 Tab/Tube) 4 - 8 tab PO UD PRN; Protocol PRN Reason: Hypoglycemia Protocol Stop: 04/03/24 19:25 Cefepime HCl (Maxipime 2000mg) 2,000 mg in 20 mls @ 5 mls/min IV Q12H ABIODUN; Protocol Stop: 03/12/24 02:59 Last Admin: 03/05/24 14:08 Dose: 5 mls/min Vancomycin HCl 1,250 mg/ (Dextrose) 275 mls @ 200 mls/hr IV Q24H [facility] Stop: 03/07/24 07:59 Last Infusion: 03/05/24 10:23 Dose: Infused Insulin Aspart (Insulin Aspart Per Unit Charge) 0 units SC ACHS [facility] Stop: 04/03/24 20:59 Last Admin: 03/05/24 12:46 Dose: 4 units Insulin Glargine (Lantus Per Unit Charge) 0 - 10 units SQ BID [facility] Stop: 04/03/24 20:59 Last Admin: 03/05/24 08:36 Dose: 8 units Loratadine (Loratadine 10 Mg Tab) 10 mg PO QAM [facility] Stop: 04/04/24 08:59 Last Admin: 03/05/24 07:46 Dose: 10 mg Lorazepam (Lorazepam 1 Mg Tab) 1 mg PO HS PRN PRN Reason: Anxiety/Insomnia Stop: 04/03/24 19:25 Magnesium Oxide (Magnesium Oxide 400 Mg Tab) 400 mg PO QAM [facility] Stop: 04/04/24 08:59 Last Admin: 03/05/24 07:46 Dose: 400 mg Melatonin (Melatonin 3 Mg Tab) 3 mg PO HS [facility] Stop: 04/03/24 20:59 Last Admin: 03/04/24 23:45 Dose: 3 mg Methenamine Hippurate (Methenamine Hippurate 1 Gm Tab) 1 gm PO QAM [facility] Stop: 04/04/24 08:59 Metoprolol Succinate (Metoprolol Succ 25mg Ext Rel Tab) 25 mg PO QAM [facility] Stop: 04/04/24 08:59 Last Admin: 03/05/24 07:50 Dose: 25 mg Midodrine (Midodrine Hcl 2.5 Mg Tab) 2.5 mg PO BID17 [facility] Stop: 04/04/24 08:59 Last Admin: 03/05/24 16:04 Dose: 2.5 mg Mirtazapine (Mirtazapine Tab 15 Mg Tab) 30 mg PO HS [facility] Stop: 04/03/24 20:59 Last Admin: 03/04/24 23:46 Dose: 30 mg Miscellaneous (Carbohydrates For Hypoglycemia ) 15 - 30 gm PO UD PRN PRN Reason: Hypoglycemia Protocol Stop: 04/03/24 19:25 Miscellaneous Information (Vancomycin Consult Active) 1 each N/A UD PRN PRN Reason: Consult Stop: 04/03/24 15:06 Multivitamins/Minerals (Cerovite Adv Formula Tab) 1 tab PO DAILY [facility] Stop: 04/04/24 08:59 Last Admin: 03/05/24 07:52 Dose: 1 tab Multivitamins/Minerals (Cerovite Adv Formula Tab) 1 tab PO QAM [facility] Stop: 04/04/24 08:59 Last Admin: 03/05/24 07:54 Dose: 1 tab Nystatin (Nystatin Powder 15gm Btl) 1 appln EXT DAILY [facility] Stop: 04/04/24 08:59 Last Admin: 03/05/24 07:53 Dose: 1 appln Ondansetron HCl (Ondansetron Inj 2 Mg/Ml 2 Ml Vial) 4 mg IV Q6H PRN PRN Reason: Nausea Stop: 04/03/24 19:25 Polyethylene Glycol (Polyethylene (Miralax) 17 Gm Pack) 17 gm PO DAILY PRN PRN Reason: Constipation Stop: 04/03/24 19:25 Potassium Chloride (Potassium Chloride Crtab 20 Meq Tabcr) 20 meq PO QAM [facility] Stop: 04/04/24 08:59 Last Admin: 03/05/24 08:01 Dose: 20 meq Triamcinolone Acetonide (Triamcinolone Acet 0.1% Cr 15 Gm Tube) 1 appln TOP Q24H PRN PRN Reason: Itching Stop: 04/03/24 21:09 Warfarin Sodium (Warfarin Sod 2 Mg Tab) 2 mg PO SUTUFR@1600 [facility] Stop: 04/04/24 15:59 Last Admin: 03/05/24 16:04 Dose: 2 mg Warfarin Sodium (Warfarin Sod 1 Mg Tab) 1 mg PO MOWETHSA@1600 [facility] Stop: 04/03/24 20:59 Last Admin: 03/04/24 23:43 Dose: 1 mg Zolpidem Tartrate (Zolpidem Tartrate 5 Mg Tab) 5 mg PO QPM PRN PRN Reason: Insomnia Stop: 04/03/24 19:25 Last Admin: 03/05/24 00:40 Dose: 5 mg (1) Diabetic ulcer of toe of left foot Diabetes mellitus type: type 2 Non-pressure ulcer stage: limited to breakdown of skin Qualified Code(s): E11.621 - Type 2 diabetes mellitus with foot ulcer; L97.521 - Non-pressure chronic ulcer of other part of left foot limited to breakdown of skin (5) Atrial fibrillation Atrial fibrillation type: unspecified Qualified Code(s): I48.91 - Unspecified atrial fibrillation
--- NOTE | 2024-03-05 17:09 | Vascular Medicine Consultation ---
Date of Consultation March 05, 2024 Assessment & Plan (1) PAD (peripheral artery disease): 2. Recurrent diabetic foot ulcerspost left fifth toe amputation. Now recurrent ulcers involving third/fourth digits 3. Sacral decubitus ulcer 4. Nonambulatory status since fall/femoral fracture 04/2022 nonischemic cardiomyopathy, last EF 45% 5. Coronary artery diseasemedically managed PDA disease 6. AV block post pacemaker 7. Persistent atrial fibrillation on anticoagulation 8. Bilateral left greater than right lower extremity edemasuspected lymphedema on left post trauma 9. 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 Nonischemic cardiomyopathyLVEF 45% 11. AKIstage III CKD Patient post successful endovascular intervention to left popliteal occlusion. He has single-vessel runoff to the foot via peroneal. [employer] and LULY occlusions are chronic and fill distally via collaterals. On exam today third toe with distal dry gangrene and deep ulcer involving medial aspect of fourth toe. Remainder of left lower extremity appears reasonably perfused with distal good capillary refill. No clear evidence of cellulitis. Repeat arterial duplex yesterday shows widely patent popliteal to TPT stents. Patient seen today with Dr. oMe Pringle. She discussed third, possibly fourth toe amputation with patient next week Prior noninvasive vascular testing after last popliteal intervention showed toe pressures in the 70s. Would expect similar findings currently and suspect perfusion should be adequate to heal surgical wound after toe amputation. From a vascular standpoint okay with discharge when medical issues stable. Continue current clopidogrel. Continue antibiotics per primary team. History of Present Illness Attending Physician: Ravi Orr MD History of Present Illness Mr. Thayer is a very pleasant 88-year-old man with a history of lower extremity PAD and recurrent lower extremity ulcers seen today in the setting of gangrenous third toe. Patient follows with Dr. Dacosta of [facility] for his cardiac care. 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 Lifelong non-smoker. He has had multiple prior endovascular interventions to his left popliteal artery. Most recently 4 days ago underwent successful repeat angioplasty of occluded popliteal stent and additional stent placement from distal popliteal into TPT. Good angiographic result with single-vessel runoff via peroneal. Yesterday he was referred to ED after visiting nurse noted newly gangrenous third toe, ulcer on medial aspect of fourth toe. Of note toe discoloration ulcers have been present prior to recent intervention. Underwent repeat arterial duplex today which showed widely patent popliteal stents and patent peroneal, proximal [employer]. Allergies Allergy/AdvReac Type Severity Reaction Status Date / Time ampicillin Allergy Intermediate Rash Verified 01/10/24 06:46 Macrolide Antibiotics Allergy Unknown PER Verified 01/10/24 06:46 MEDICAL RECORD sildenafil Allergy Unknown SWELLING Verified 01/10/24 06:46 OF FACE AND HEAD nitrofurantoin AdvReac Diarrhea Verified 01/10/24 06:46 VASODILATORS Allergy Unknown "PERIPHERAL Uncoded 01/10/24 06:46 DILATOR" swelling of face and head Home Medications Medication Instructions Recorded Confirmed Type amiodarone 200 mg tablet 200 mg PO QAM 01/02/18 03/04/24 History insulin glargine 100 unit/mL 16 units DAILY 01/02/18 03/04/24 History subcutaneous solution loratadine 10 mg tablet 10 mg PO QAM 01/02/18 03/04/24 History magnesium oxide 400 mg (241.3 mg 400 mg PO QAM 01/02/18 03/04/24 History magnesium) tablet metoprolol succinate 25 mg 25 mg PO QAM 01/02/18 03/04/24 History tablet,extended release 24 hr gabapentin 300 mg capsule 300 mg PO TID 03/10/18 03/04/24 History docusate sodium 100 mg capsule 100 mg PO BID 04/27/22 03/04/24 History (Colace) mometasone 0.1 % topical solution 1 applic topical .EVERY 24 HOURS 04/27/22 03/04/24 History PRN Itching acetaminophen 325 mg capsule 650 mg PO Q4 PRN PAIN/FEVER 05/10/22 03/04/24 History bisacodyl 10 mg rectal suppository 10 mg MD .EVERY 24 HOURS PRN 12/01/22 03/04/24 History Constipation calcium 500 mg (as 1 tab PO QAM 12/01/22 03/04/24 History carbonate)-vitamin D3 5 mcg (200 unit) tablet (Oyster Shell Calcium-Vitamin D3) mirtazapine 30 mg tablet (Remeron) 30 mg PO HS 12/01/22 03/04/24 History multivit,stress formula-zinc tablet 1 tab PO DAILY 12/01/22 03/04/24 History midodrine 2.5 mg tablet 2.5 mg PO BID 03/10/23 03/04/24 History zolpidem 5 mg tablet (Ambien) 5 mg PO QPM PRN Insomnia 03/10/23 03/04/24 History furosemide 40 mg tablet 40 mg PO QAM 04/14/23 03/04/24 History jzijimmo-kmx- 250 mg-dha 90 1 cap PO QAM 04/14/23 03/04/24 History mg-epa 160 tc-ixmv-vmgh-zeax capsule (Ocuvite Adult 50 Plus) warfarin 2 mg tablet 2 mg PO SUTUFR@1600 04/14/23 03/04/24 History melatonin 5 mg capsule 10 mg PO HS 06/15/23 03/04/24 History potassium chloride 20 mEq 20 meq PO QAM 08/18/23 03/04/24 History tablet,extended release(part/cryst) clopidogrel 75 mg tablet 75 mg PO QAM #90 tabs 10/17/23 03/04/24 Rx nystatin 100,000 unit/gram topical 1 applic topical DAILY #60 grams 10/19/23 03/04/24 Rx powder clobetasol 0.05 % scalp solution 1 applic topical DIRECTED 12/19/23 03/04/24 History fluticasone propionate 50 2 spray intranasal DAILY 12/19/23 03/04/24 History mcg/actuation nasal spray,suspension (Flonase Allergy Relief) ketoconazole 2 % shampoo 1 applic topical DIRECTED 12/19/23 03/04/24 History lorazepam 1 mg tablet 1 mg PO HS 12/19/23 03/04/24 History methenamine hippurate 1 gram tablet 1 g PO QAM 12/19/23 03/04/24 History warfarin 1 mg tablet 1 mg PO MOWETHSA@1600 03/04/24 03/04/24 History Patient History Medical History Atrial fibrillation pacer > follows with Dr. Dacosta Hx of prostatic malignancy approx 2018 Diabetes Weakness Complicated urinary tract infection COVID-19 Hx: UTI (urinary tract infection) treated for while hospitalized at [facility] Nov 2023 History of ESBL E. coli infection 2020 Open wound of buttock gets wound care 3x weekly History of COVID-19 Dec 19, 2023 > cough/weakness, still coughing > was hospitalized at [facility] Pressure ulcer bilat feet > reason for upcoming procedure > one to right foot, four to left Hx of sepsis Jan 2023 per pt PVD (peripheral vascular disease) Berman catheter in place gets changed monthly Cerebrovascular disease Heart failure follows with Dr. Dacosta Ambulatory dysfunction History of hepatitis B remote hx per pt Renal failure no dialysis History of Mohs micrographic surgery for skin cancer History of melanoma HX MELANOMA, HX MULTIPLE SKIN CA & REMOVED Diabetic neuropathy History of colon cancer HX COLON SURGERY Chronic systolic CHF (congestive heart failure) Hypertension Pacemaker Medtronic > unsure when last checked Lumbar spinal stenosis Generalized OA Dyslipidemia Surgical History Hx of vascular surgery Angio Extremity Unilateral - Genaro Ulrich MD s Fem Pop Balloon Atherectomy - Genaro Ulrich MD s SC Select Cath Place 3rd Order - Genaro Ulrich MD s Ultrasound Vascular Access - Genaro Ulrich MD 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 History of anesthesia reaction WITH TESTICULAR SURGERY, [facility] - INCREASED BP & HAD TO STAY OVERNIGHT History of cardiac cath unknown how many yrs ago, no stents History of testicular surgery History of colonoscopy MULTIPLE History of tonsillectomy and adenoidectomy History of right hemicolectomy H/O prostatectomy Family History Mother Coronary heart disease Father Heart disease Social History Smoking Status: Never smoker Tobacco Type: Cigarettes Second Hand Exposure: No; Do You Dip or Chew Tobacco: No; Tobacco Cessation Education Requested by Patient: No Hx Alcohol Use: Yes Alcohol type: wine Hx Substance Use: No Preferred Language: Cambodian Communication Ability: Effective Hearing Ability: Hard of Hearing Zigzag Appliquer Required: No Beliefs That Will Affect Care: None marital status: Single Current Living Situation: Alone Current Living Situation Comment: alone with caregivers during the day current occupational status: retired How many Children do You have: 0 Other Information That Helps Us Care for You: No Feels Safe at Home: Yes Safety Concerns: Feels Safe At This Time Diet: diabetic Diet Comment: Increased protein for healing per chart during the past year weight has: remained stable Assistive Devices: Bedside Commode, Hospital Bed, Scooter/Electric Scooter and Wheelchair Review of Systems Review of Systems: All systems reviewed & are unremarkable except as noted in HPI & below Physical Exam Physical Exam: General: Comfortable, frail no acute distress Eyes: Sclerae anicteric Lungs: Clear to auscultation bilaterally, no rhonchi or wheezes Cardiac: Irregular irregular, no murmurs Abdomen: Soft, nontender Neuro: Nonfocal Psych: Alert orient x3, normal affect and mood Extremities/Vascular: -- 2+ radial bilaterally -- Right PROTOTYPE CARPENTER 2+ pulse, no ecchymosis or hematoma --dry gangrenous changes present to the left foot third toe base of the toe actually has normal coloration remainder of digits have normal capillary refill time there is a significant ulcer present on the left foot fourth toe medial aspect of the digit measuring about 2 cm in diameter. Skin: Left foot with all dressings removed there are dry gangrenous changes present to the left foot third toe base of the toe actually has normal coloration remainder of digits have normal capillary refill time there is a significant ulcer present on the left foot fourth toe medial aspect of the digit measuring about 2 cm in diameter. History of recent vascular endovascular procedure. After evaluation dressings then reapplied consisting of Aquacel silver 4 x 4 gauze and rolled gauze. Results & Data Vital Signs (Past 12 Hours) Vital Signs Temp Pulse Pulse Resp BP Pulse Ox O2 Del Method 03/05/24 15:42 62 03/05/24 15:34 97.2 F L 60 18 100/61 96 Room Air 03/05/24 11:59 98.3 F 59 L 18 138/71 95 Room Air 03/05/24 07:49 97.9 F 84 18 123/67 98 Room Air 03/05/24 06:58 60 PG Care Time/CCT Total # of Minutes Spent Total Time Spent with Patient: Total time spent is greater than 50% in coordination of care (as documented) at patient's floor/unit and/or counseling patient: Coding Level of Care Code 92774 INT INP/OBS CARE MIN Diagnoses PAD (peripheral artery disease) I73.9
[2024-03-05] MEDS: LORazepam 1 MG TAB PO PRN (20:25)
[2024-03-06 06:07] LABS: Basophils # (auto) 0.03 K/uL (0.00-0.20); Basophils % (auto) 0.4 %; Eosinophils # (auto) 0.16 K/uL (0.00-0.50); Eosinophils % (auto) 1.9 %; Hematocrit (blood only) 35.5 % (42.0-52.0); Hemoglobin 11.7 g/dl (14.0-18.0); Immature Granulocytes # (auto) 0.06 K/uL (0.01-0.20); Immature Granulocytes % (auto) 0.7 %; Lymphocytes # (auto) 2.18 K/uL (1.20-3.40); Lymphocytes % (auto) 26.1 %; Mean Corpuscular Hemoglobin 28.7 pg (25.0-34.0); Mean Platelet Volume 9.3 fL (9.4-12.4); Monocytes # (auto) 0.73 K/uL (0.11-0.59); Monocytes % (auto) 8.7 %; Neutrophils % (auto) 62.2 %; Platelet Count 229 K/uL (130-400); RDW Coefficient of Variation 16.6 % (11.5-14.5); RDW Standard Deviation 53.3 fL (36.4-46.3); Red Blood Count 4.08 M/uL (4.70-6.10); White Blood Count 8.36 K/ul (4.8-10.8)
[2024-03-06 06:27] LABS: BUN Creatinine Ratio 15.8 (10-20); Calcium 7.9 mg/dl (8.6-10.3); Creatinine Clr Calc Pharmacy 41.5 ml/min; Potassium 4.1 mmol/L (3.5-5.1)
[2024-03-06 06:34] LABS: INR 1.8 (0.9-1.1); Prothrombin Time 18.7 Seconds (9.0-12.0)
[2024-03-06 07:50] VITALS: BP 132/82; PULSE 60; RESP 20; TEMP 97.9
[2024-03-06] MEDS: ceFAZolin 2000MG 2,000 MG/15 ML SYR IV SCH (08:15)
--- NOTE | 2024-03-06 11:21 | Electrocardiogram Report ---
Test Reason : Blood Pressure : */* mmHG Vent. Rate : 63 BPM Atrial Rate : 44 BPM P-R Int : 172 ms QRS Dur : 162 ms QT Int : 524 ms P-R-T Axes : 93 270 88 degrees QTcB Int : 536 ms AV dual-paced rhythm with frequent Premature ventricular complexes Abnormal ECG When compared with ECG of 19-Dec-2023 17:45, No significant change was found Confirmed by Srinivasan Conrad ([id number]) on 03/06/2024 11:20:53 AM Referred By: REFERRED SELF Confirmed By: Srinivasan Conrad
--- NOTE | 2024-03-06 14:30 | Discharge Summary ---
Date of Service March 06, 2024 Admission HPI Per Admitting Provider This is an 88yo M with a PMH of PAD requiring multiple interventions (most recently angioplasty and re-stenting of L distal popliteal artery), history of foot wounds, progressive dysphasia, CKD III, SSS s/p pacemaker placement, non- ischemic cardiomyopathy, last EF: 45%, CAD, atrial fibrillation on warfarin, diabetes with neuropathy and other medical problems listed below who was directed to ED by wound care for evaluation of discolored third left toe. Patient with extensive history of PAD and wounds, with recent bilateral TheraSkin graft application of left and right foot by sampler and test preparer on 01/09. Was then seen by interventional vascular service on 02/12 with note the patient still with nonhealing left toe ulcers. Arterial duplex showed reocclusion of the left popliteal artery stent and patient recently underwent angioplasty of the left popliteal in-stent occlusion and stenting of distal popliteal into TPT by Dr. Ulrich on 03/01. Recommendation to continue dual therapy with Plavix, Coumadin. Was due for repeat vascular testing on 03/15 but presented to ED today per prompting of home wound care nurse due to black appearance of third left toe. Patient denies any fever or chills. Has per ipheral neuropathy and therefore no feeling in left lower extremity. Noted that it was starting to get discolored over the weekend but was much more significant today. Has been taking all medications as prescribed. Does think he ran into something with some bruising noted on left lorenzo. No fever, chills, lightheadedness, headache, chest pain, shortness of breath, nausea, vomiting, abdominal pain. Indwelling Terry catheter in place. Issues with chronic constipation and due for Dulcolax suppository today. Admission Exam Per Admitting Provider General Appearance: WD/WN, vitals as above, NAD, sitting up in bed, pleasant, appears chronically ill, frail Head: normocephalic, atraumatic Eyes: normal inspection, PERRL, conjunctivae normal, anicteric sclerae ENT: external ear and nose normal, oropharynx normal Neck: normal visual inspection, trachea midline, no thyromegaly Respiratory: normal respiratory effort, lungs clear to auscultation, no wheeze, rales, rhonchi. No accessory muscle use Cardiovascular: regular rate, rhythm, normal peripheral pulses, no BLE edema. Vessels: no JVD Chest: normal inspection of chest Abdomen/GI: normal bowel sounds, soft, nontender, no hepatosplenomegaly Extremities/Musculoskeletal: no cyanosis or clubbing, extremities motor strength 5/5. LLE with stasis changes, s/p 5th toe amputation, 4th toe appears erythematous, 3rd toe appears necrotic, scant drainage. RLE with diminished DP pulse, bandaged ulcer 2nd toe Neurologic: PERRL, EOMI, accommodation nl, no face palsy, no dysarthria, CN's II-XI intact bilaterally and moves all extremities Psychiatric: A+Ox3, euthymic affect Skin: no rashes, normal color, warm/dry Principal Diagnosis Diabetic Ulcer for the Left foot Discharge Exam Lying in bed without any acute distress Constitutional: + chronic ill appearing and average body habitus Eyes: PERRL, conjunctivae normal, anicteric sclerae ENMT: external ear and nose normal, oropharynx normal Neck: trachea midline, no thyromegaly Respiratory: no respiratory distress Auscultation: lungs clear to auscultation bilaterally Cardiovascular: Rate/Rhythm: regular rate and regular rhythm; not tachycardic Heart Sounds: normal S1 and normal S2; no murmur Extremities: + edema ( trace edema bilaterally) Gastrointestinal (Abdomen): Inspection/Auscultation: normal bowel sounds; abdomen not distended Percussion/Palpation: abdomen soft; abdomen nontender Musculoskeletal: Minimal ulceration involving the right great and second toe Left foot is bandaged Neurologic: normal touch/pain/proprioception and moves all extremities; no focal motor deficits Lymphatic: no cervical or axillary lymphadenopathy Discharge Data Allergies Allergy/AdvReac Type Severity Reaction Status Date / Time ampicillin Allergy Intermediate Rash Verified 01/10/24 06:46 Macrolide Antibiotics Allergy Unknown PER Verified 01/10/24 06:46 MEDICAL RECORD sildenafil Allergy Unknown SWELLING Verified 01/10/24 06:46 OF FACE AND HEAD nitrofurantoin AdvReac Diarrhea Verified 01/10/24 06:46 VASODILATORS Allergy Unknown "PERIPHERAL Uncoded 01/10/24 06:46 DILATOR" swelling of face and head Consultations 03/04/24 15:08 ED Decision to Admit Stat 03/04/24 16:23 Consult Podiatry Routine 03/04/24 19:15 Consult Cardiology Routine Ordered Studies Laboratory Results WBC 8.36 K/ul (4.8-10.8) 03/06/24 05:27 RBC 4.08 M/uL (4.70-6.10) L 03/06/24 05:27 Hgb 11.7 g/dl (14.0-18.0) L 03/06/24 05:27 Hct 35.5 % (42.0-52.0) L 03/06/24 05:27 MCV 87.0 fL (80.0-100.0) 03/06/24 05:27 MCH 28.7 pg (25.0-34.0) 03/06/24 05:27 MCHC 33.0 g/dL (32.0-36.0) 03/06/24 05:27 RDW Std Deviation 53.3 fL (36.4-46.3) H 03/06/24 05:27 RDW Coeff of Gabriela 16.6 % (11.5-14.5) H 03/06/24 05:27 Plt Count 229 K/uL (130-400) 03/06/24 05:27 MPV 9.3 fL (9.4-12.4) L 03/06/24 05:27 Immature Gran % (Auto) 0.7 % 03/06/24 05:27 Neut % (Auto) 62.2 % 03/06/24 05:27 Lymph % (Auto) 26.1 % 03/06/24 05:27 [place] % (Auto) 8.7 % 03/06/24 05:27 Eos % (Auto) 1.9 % 03/06/24 05:27 Baso % (Auto) 0.4 % 03/06/24 05:27 Neut # (Auto) 5.20 K/uL (1.40-6.50) 03/06/24 05:27 Lymph # (Auto) 2.18 K/uL (1.20-3.40) 03/06/24 05:27 [place] # (Auto) 0.73 K/uL (0.11-0.59) H 03/06/24 05:27 Eos # (Auto) 0.16 K/uL (0.00-0.50) 03/06/24 05:27 Baso # (Auto) 0.03 K/uL (0.00-0.20) 03/06/24 05:27 Immature Gran # (Auto) 0.06 K/uL (0.01-0.20) 03/06/24 05:27 Absolute Nucleated RBC 0.02 K/uL (0.00-0.12) 03/05/24 05:35 Nucleated RBC % (auto) 0.3 % 03/05/24 05:35 PT 18.7 Seconds (9.0-12.0) H 03/06/24 05:27 INR 1.8 (0.9-1.1) H 03/06/24 05:27 Sodium 137 mmol/L (136-145) 03/06/24 05:27 Potassium 4.1 mmol/L (3.5-5.1) 03/06/24 05:27 Chloride 101 mmol/L (98-107) 03/06/24 05:27 Carbon Dioxide 31 mmol/L (21-32) 03/06/24 05:27 Anion Gap 5 (3-11) 03/06/24 05:27 BUN 22 mg/dl (6-23) 03/06/24 05:27 Creatinine 1.39 mg/dl (0.6-1.4) 03/06/24 05:27 Est Cr Clr Drug Dosing 41.5 ml/min 03/06/24 05:27 eGFR 48.76 03/06/24 05:27 BUN/Creatinine Ratio 15.8 (10-20) 03/06/24 05:27 Glucose 91 mg/dl (70-99(Fasting)) 03/06/24 05:27 POC Glucose 119 mg/dl (70-99) H 03/06/24 12:14 Estimat Average Glucose 117 mg/dl 03/05/24 05:35 Hemoglobin A1c 5.7 % (4.5-5.6) H 03/05/24 05:35 Lactate 1.6 mmol/L (0.4-2.0) 03/04/24 13:43 Calcium 7.9 mg/dl (8.6-10.3) L 03/06/24 05:27 Magnesium 1.8 mg/dl (1.7-2.4) 03/05/24 05:35 Total Bilirubin 0.4 mg/dl (0.2-1.0) 03/04/24 13:45 Direct Bilirubin 0.1 mg/dl (0-0.2) 03/04/24 13:45 AST 26 U/L (13-39) 03/04/24 13:45 ALT 20 U/L (7-52) 03/04/24 13:45 Alkaline Phosphatase 103 U/L (34-104) 03/04/24 13:45 Troponin I High Sens 18.0 pg/ml (0-20) 03/04/24 13:45 Total Protein 6.6 gm/dl (6.0-8.3) 03/04/24 13:45 Albumin 3.3 gm/dl (3.4-5.0) L 03/04/24 13:45 Procalcitonin < 0.02 ng/ml (0-0.5) 03/04/24 14:27 Urine Color Yellow 03/04/24 Unknown Urine Appearance Clear (Clear) 03/04/24 Unknown Urine pH 5.0 (4.5-7.5) 03/04/24 Unknown Ur Specific [place] 1.008 (1.000-1.030) 03/04/24 Unknown Urine Protein Negative (Negative) 03/04/24 Unknown Urine Glucose (UA) Negative (Negative) 03/04/24 Unknown Urine Ketones Negative (Negative) 03/04/24 Unknown Urine Blood Negative (Negative) 03/04/24 Unknown Urine Nitrite Positive (Negative) A 03/04/24 Unknown Urine Bilirubin Negative (Negative) 03/04/24 Unknown Urine Urobilinogen Negative (Negative) 03/04/24 Unknown Ur Leukocyte Esterase 3+ (Negative) H 03/04/24 Unknown Urine WBC (Auto) 21-50 /hpf (0-5) H 03/04/24 Unknown Urine RBC (Auto) 0-2 /hpf (0-2) 03/04/24 Unknown U Hyaline Cast (Auto) 0-2 /lpf (0-2) 03/04/24 Unknown U Epithel Cells (Auto) 0-2 /hpf (0-2) 03/04/24 Unknown Urine Bacteria (Auto) 1+ (None Seen) H 03/04/24 Unknown Impressions Chest X-Ray 03/04/24 13:35 XR chest 1V portable CLINICAL HISTORY: Sepsis. COMPARISON STUDY: Chest radiograph December 19, 2023. Chest CT July 18, 2017. FINDINGS: Left subclavian pacer is in place. Low lung volumes are unchanged. There is no pneumothorax. There are trace bilateral pleural effusions. Mild left basilar opacity is present. There is cardiomegaly with overt pulmonary edema. IMPRESSION: 1. Left basilar opacity which could reflect pneumonia or atelectasis. 2. Cardiomegaly without overt pulmonary edema. 3. Trace bilateral pleural effusions. ACT 112: Negative or not required by law. Electronically signed by: Dieudonne Roy M.D. 03/04/2024 2:18 PM Foot X-Ray 03/04/24 13:36 XR foot LT min 3V routine HISTORY: 88 years-old Male 3rd digit open acute sepsis with soft tissue wound and possible osteomyelitis COMPARISON: 09/26/2023 TECHNIQUE: 3 views of the left foot FINDINGS: Arterial calcifications. Demineralized appearance to the bones. Diffuse soft tissue swelling. Bandages overlying the third and fourth toes limits the study. Prior partial resection of the fifth digit. No acute fracture or dislocation. Chronic cortical thickening of the distal tibia and fibula. Equivocal bony erosions of the third distal phalanx. IMPRESSION: 1. Limited exam secondary to bone demineralization and gauze material overlying the third and fourth distal toes. 2. Equivocal bony erosion/osteomyelitis of the third distal phalanx. Repeat study following removal of the bandage is recommended. ACT 112: Negative or not required by law. The above report was generated using voice recognition software. It may contain grammatical, syntax or spelling errors. Electronically signed by: Ollie Hendrix M.D. 03/04/2024 2:02 PM Duplex Scan Lower Extremity Artery 03/04/24 16:34 Exam(s): US ARTERIAL LEFT LOWER EXTREMITY EXAM: US Duplex Left Lower Extremity Arteries CLINICAL HISTORY: Reason for exam: PAD with recent revascularization on 03/01. TECHNIQUE: Real-time duplex ultrasound scan of the left lower extremity arteries integrating B-mode two-dimensional vascular structure, Doppler spectral analysis and color flow Doppler imaging. COMPARISON: No relevant prior studies available. FINDINGS: Left common femoral artery: No acute findings. No occlusion or significant stenosis on color flow and spectral Doppler imaging. Normal waveform. Left superficial femoral artery: No acute findings. No occlusion or significant stenosis on color flow and spectral Doppler imaging. Normal waveform. Left SFA stent Left popliteal artery: No acute findings. No occlusion or significant stenosis on color flow and spectral Doppler imaging. Normal waveform. Left calf/foot arteries: Occlusion of the mid and distal anterior tibial artery reconstitution of the left dorsalis pedis artery. Slow flow seen within the posterior tibial artery distally. Soft tissues: Unremarkable. IMPRESSION: Fluid anterior tibial artery with reconstitution of the dorsalis pedis artery. Slow flow seen within the distal posterior tibial artery. Catheter angiography recommended for further evaluation. Patent left SFA stent Electronically signed by: Dov Mueller MD 03/05/24 00:41 AM 03/04/24 16:34 arterial duplex LE LT Routine Hospital Course (1) Diabetic ulcer of toe of left foot: Dr. Thayer was admitted to a general medical floor. He was placed on IV antibiotics. Podiatry and vascular surgery were consulted. He was started on cefepime, vanco and flagyl in ED. Wound and blood cx were obtained. Discussed with Dr. Ulrich - successful stenting procedure on 03/01. Recommends repeating arterial duplex of LLE but unlikely need for further intervention at this time. Discussed with Dr. Chelsea kaufman for OR next Wed. 03/13 for a left foot third and fourth digit amputation. Continue coumadin and plavix. Cultures were done and reviewed. He was pansensitive. Urine culture was consistent with contamination. He has a chronic indwelling Terry catheter. Podiatry felt he was stable for home oral antibiotics until the proposed surgery. He was deemed stable for discharge on this date. He was tolerating his usual diet. F/U with PCP and podiatry along with Vascular surgery as an outpatient. (2) PAD (peripheral artery disease): (3) CKD (chronic kidney disease), stage III: (4) Chronic systolic heart failure: (5) Atrial fibrillation: (6) Diabetes: (7) Pacemaker: (8) Hx: UTI (urinary tract infection): (9) Terry catheter in place: Plan This is an 88yo M with a PMH of PAD requiring multiple interventions (most recently angioplasty and re-stenting of L distal popliteal artery), history of foot wounds, progressive dysphasia, CKD III, SSS s/p pacemaker placement, non- ischemic cardiomyopathy, last EF: 45%, CAD, atrial fibrillation on warfarin, diabetes with neuropathy and other medical problems listed below who was directed to ED by wound care for evaluation of discolored third left toe. Left 3rd toe necrosis LLE cellulitis Repeat x-ray did show bony erosions involving second proximal phalangeal head suspicious for osteomyelitis PAD with multiple interventions Recent h/o bilateral TheraSkin graft application of left and right foot by sampler and test preparer on 01/09 S/p angioplasty of the left popliteal in-stent occlusion and stenting of distal popliteal into TPT by Dr. Ulrich this past 03/01/24 Afebrile, no leukocytosis, procal negative Started on cefepime, vanco, flagyl Culture from left third toe showed Staph aureus and Klebsiellasensitivities pending Flagyl has been discontinued Discussed with Dr. Ulrich - successful stenting procedure on 03/01. Recommends repeating arterial duplex of LLE but unlikely need for further intervention at this time Discussed with Dr. Tran -plans to see him tomorrow around noon, after vascular study results but no plans for OR tomorrow The patient was seen by the sampler and test preparer And plan for surgery on next Monday The patient can be discharged from the vascular surgeon and sampler and test preparer point of view Will need to continue intravenous antibiotic on discharge until the tube is removed and further decision of antibiotic as per the sampler and test preparer Likely to need ultrasound-guided peripheral line to continue antibiotic for short course Wound care nurse consulted for the foot cellulitis and as well as possible sacral decubiti as the patient is complaining Possible UTI/Catheter associated UTI Recent UTIs in setting of indwelling catheter, is on chronic methenamine suppression On abx as above, recommend terry exchange Urine cx abnormal, reflex cx sent Urine culture is growing 3 different types of organisms likely contaminant Constipation Uses suppository regularly prior to bowel movement at home Bowel movements 2-3 times per week Has not had a bowel movement for the last 3 or 4 days Denies any significant distention and/or pain in the abdomen Will try suppository and milk of magnesia orally DM II A1c 5.8 in Nov 2023, repeat in AM Basal/bolus insulin while in-patient BSG AC HS Progressive dysphagia Pharyngeal Dysphagia, 2021 Seen by speech during Dec 2023 admission- no acute changes, aspiration precautions Denies any significant problem Paroxysmal atrial fibrillation Continue amiodarone, Toprol Coumadin for anticoagulation INR 1.8 as of 03/05/2024 Sick sinus syndrome s/p Pacemaker Postural hypotension Chronic Heart Failure with Mildly Reduced EF 2D echo from 02/11: LV function mildly reduced. LV wall thickness concentric. EF 45%. Grade I DDx. Appears euvolemic. Continue home regimen of Toprol, Midodrine, lasix CKD III Cr 1.23 (at baseline) Monitor renal function with daily BMP Avoid nephrotoxic agents as able Chronic constipation Bisacodyl 10 MG Rectal Suppository (Dulcolax) - due this evening, ordered DVT Ppx: coumadin Code status: FULL PCP: [facility] Dispo: admitted to [facility] Attestation I certify that this patient is under my care and that I, or a physicians assist ant working with me, had a face to-face encounter that meets the home health [id number] encounter requirements with this patient. The encounter with the patient was in whole, or in part, for the following medical condition, which is the primary reason for home health care (list medical condition): I certify that, based on my findings, the following services are medically necessary home health services: My clinical findings support the need for the above services because: Further, I certify that my clinical findings support that this patient is homebound (i.e. absences from home require considerable and taxing effort and are for medical reasons or scientologist services or infrequently or of short duration when for other reasons) because: Certification for Home Health Services: Based on the above findings, I certify that this patient is confined to the home and needs intermittent fci care, physical therapy and/or speech therapy or continues to need occupational therapy. The patient is under my care, and I have initiated the establishment of the plan of care. This patient will be followed by a physician who will periodically review the plan of care. Total Time Total Time Spent Total Time Spent (In Minutes): 60 Discharge Plan Discharge Items Patient Disposition: Home - Home Health Services Reason For Visit: PAD WITH NECROTIC 3RD TOE Discharge Diagnosis: Diabetic Foot Ulcer Left Foot Activity: As commented below Activity Comment: Pt essentially bedbound before admission. Has home aids Non-emergency contact: Primary Care Provider Call non-emergency contact if: you have any medication questions, your symptoms worsen and your pain is not controlled Follow-up/Referrals: Vianey Matamoros MD [Primary Care Provider] - (Date & Time 03/11/2024 12:00 PM Provider Vianey Matamoros MD Department General Internal Medicine [facility] ) Diet: Carb Consistent or DM2 and Heart Healthy Addtl Attending Provider Instructions: Pt will be scheduled for amputation per Podiatry next week Pending Studies at Discharge: No Stand-Alone Forms: My [facility] Medications and DC Order Prescriptions: New cefdinir 300 mg capsule 300 mg PO BID 10 Days Qty: 20 0RF Continued midodrine 2.5 mg tablet 2.5 mg PO BID Rx Instructions: do not give last dose of day after 6PM or within 4 hrs of bedtime melatonin 5 mg capsule 10 mg PO HS Rx Instructions: Takes @ 2300 nystatin 100,000 unit/gram powder 1 applic topical DAILY Qty: 60 2RF Rx Instructions: APPLY TO GROIN AREA clopidogrel 75 mg tablet 75 mg PO QAM Qty: 90 3RF gabapentin 300 mg capsule 300 mg PO TID insulin glargine 100 unit/mL Solution 16 units DAILY magnesium oxide 400 mg (241.3 mg magnesium) Tablet 400 mg PO QAM metoprolol succinate 25 mg Tablet Extended Release 24 Hr 25 mg PO QAM loratadine 10 mg Tablet 10 mg PO QAM amiodarone 200 mg tablet 200 mg PO QAM zolpidem [Ambien] 5 mg tablet 5 mg PO QPM PRN (Reason: Insomnia) Rx Instructions: Takes @ 2300 every pm acetaminophen 325 mg Capsule 650 mg PO Q4 MDD 3g PRN (Reason: PAIN/FEVER) Rx Instructions: use for mild pain or temp=>100 bisacodyl 10 mg Suppository 10 mg VT .EVERY 24 HOURS PRN (Reason: Constipation) mirtazapine [Remeron] 30 mg Tablet 30 mg PO HS calcium carbonate-vitamin D3 [Oyster Shell Calcium-Vit D3] 500 mg-5 mcg (200 unit) Tablet 1 tab PO QAM multivit,stress formula-zinc Tablet 1 tab PO DAILY mometasone 0.1 % Solution 1 applic TOPICAL .EVERY 24 HOURS PRN (Reason: Itching) Rx Instructions: apply to affected area daily to back docusate sodium [Colace] 100 mg Capsule 100 mg PO BID furosemide 40 mg tablet 40 mg PO QAM warfarin 2 mg tablet 2 mg PO SUTUFR@1600 Rx Instructions: DIRECTED BY ANTICOAGULATION CLINIC Ocuvite Adult 50 Plus 250 mg (90 mg-160 mg) Capsule 1 cap PO QAM potassium chloride 20 mEq tablet,ER particles/crystals 20 meq PO QAM Rx Instructions: unable to verify 08/18/23 lorazepam 1 mg tablet 1 mg PO HS Rx Instructions: Takes every hs @ 1999 ketoconazole 2 % shampoo 1 applic TOPICAL DIRECTED clobetasol 0.05 % solution 1 applic TOPICAL DIRECTED Rx Instructions: When washes hair. fluticasone propionate [Flonase Allergy Relief] 50 mcg/actuation [place],Suspension 2 spray INTRANASAL DAILY Rx Instructions: administer into each nostril methenamine hippurate 1 gram tablet 1 g PO QAM warfarin 1 mg tablet 1 mg PO MOWETHSA@1600 Admission Data Admit Date/Time: 03/04/24 16:23 Attending Provider: Isidro Grier Admit Provider: Della Maldonado Primary Care Provider: Vianey Matamoros Other Providers: Della Maldonado; Karol Tran; Genaro Ulrich; [place],[facility]
[2024-03-06 17:28] VITALS: O2SAT 96
[2024-03-07] MEDS ORDERED: MULTIVITAMIN TAB PO SCH (09:00)
== END 2024-03-06 18:54 | disposition home health service (06) | DRG 629 ==
LOC: ED 12:18 → SUATTDRO 16:23 → EDINP 16:23 → 2W 21:19

== ENCOUNTER 2025-01-23 12:29 | Inpatient (IN) ==
--- NOTE | 2025-01-23 12:53 | Emergency Department Note ---
Impression & Plan Pneumonia, Acute alteration in mental status, Elevated troponin I level, Urinary tract infection ED Provider Note NAME: MINERVA NICOLE AGE: 89 SEX: M : 1935 ARRIVES VIA: Ambulance INFORMANT: Patient, EMS ED PROVIDER(S): Maico Hernández DO CHIEF COMPLAINT: Generalized weakness HPI: The patient is an 89-year-old male who presented to the emergency department for an evaluation of generalized weakness. The patient has a caregiver that thought the patient's urine smelled strongly today. There is concern for urine infection. The patient denies having any chest pain or difficulty breathing. He denies having any nausea or vomiting. He denies have any lower extremity swelling or pain. ROS: See above HPI for pertinent positives & negatives. A total of 10 systems reviewed and were otherwise negative. PAST MEDICAL HISTORY: See Below PAST SURGICAL HISTORY: See Below FAMILY HISTORY: See Below SOCIAL HISTORY: See Below HOME MEDICATIONS: See Below ALLERGIES: See Below VITALS: See Below PHYSICAL EXAMINATION: GENERAL: The patient is awake and alert. The patient is nonanxious appearing. EYES: The conjunctivae are clear. The pupils are round and reactive. EARS, NOSE, MOUTH AND THROAT: The nose is without any evidence of any deformity. NECK: The neck is nontender and supple. RESPIRATORY: Normal respiratory effort is noted there is no evidence of wheezing rhonchi or rales CARDIOVASCULAR: Regular rate and rhythm noted there no murmurs rubs or gallops normal S1 normal S2. GASTROINTESTINAL: The abdomen is soft. Abdomen is nontender. MUSCULOSKELETAL/EXTREMITIES: There is no evidence of gross deformity full range of motion is noted in the hips and shoulders. SKIN: Skin is warm and dry. Trace pedal edema was noted bilaterally. NEUROLOGIC: Patient is awake and oriented to person place and situation. Strength is diminished but symmetric. MEDICAL DECISION MAKING: The patient is an 89-year-old male who presented to the emergency department for an evaluation of altered mental status. The patient has caregivers to go to his home. Apparently he had been calling them in the morning confused about what time it was. They were concerned he may have a urine infection. He has a strong odor to his urine. The patient was found no signs of pneumonia on chest x-ray. I discussed patient's laboratory and radiographic studies with his caregiver. I do not feel the patient would be a good candidate for outpatient management at this time. He is starting to have episodes where his breathing is becoming erratic. At this time he is considered a full code. The patient was discussed with the [facility] hospitalist group. They have agreed to evaluate the patient in the emergency department. He was treated with IV antibiotics. Triage Nursing notes reviewed. Prior medical records reviewed Vital Signs: reviewed and remarkable for no significant abnormalities Differential diagnosis: Etiologies such as appendicitis, diverticulitis, obstruction, inflammatory bowel disease, renal colic, PUD, biliary pathology, pancreatitis, mesenteric ischemia, aortic pathology, infections, genitourinary, UTI, perforated viscus, as well as others were entertained. ER treatment provided: See below Diagnostics interpreted by me: ECG: EKG was obtained in the emergency department. My interpretation is ventricular paced rhythm at 80 bpm. Some data beats were noted. Left bundle branch block pattern was appreciated. This was compared to a tracing from March 04, 2024. No changes were noted. Cardiac Monitoring: An order was placed for continuous cardiac monitoring. The monitor shows a rate of 60 bpm with paced rhythm. Laboratory studies: As stated above and show below. Imaging studies: See below. Radiographic imaging was reviewed by myself Consultation(s): I discussed this case with Lillian who is on-call for the [facility] hospitalist group. Past Med/Surg History Problem List (Updated 01/23/25 @ 15:50 by Maico Hernández DO) Urinary tract infection (Acute) Elevated troponin I level (Acute) Acute alteration in mental status (Acute) Pneumonia (Acute) Cough (Acute) Dermatitis associated with moisture (Acute) Pressure ulcer of left foot, stage 3 (Acute) Stage III pressure ulcer of buttock (Acute) Bradycardia Abnormal ankle brachial index Encounter for pre-operative examination Medical History Gangrene of toes--currently on oral antibiotic Post-COVID chronic cough Residual cough "lingering" since Covid 11/2023 Osteomyelitis PAD (peripheral artery disease) CKD (chronic kidney disease), stage III History of prostate cancer s/p prostatectomy Coronary artery disease Atrial fibrillation Follows with Dr. Ulrich Hx of prostatic malignancy Approximately 2019 Diabetes COVID-19 hx 11/2023 History of ESBL E. coli infection 2020 Open wound of buttock Wound care 3x weekly History of COVID-19 11/2023- cough/weakness, still coughing > was hospitalized at [facility] Pressure ulcer B/L feet, reason for upcoming procedure PVD (peripheral vascular disease) Berman catheter in place Changed monthly Cerebrovascular disease Ambulatory dysfunction uses motorized wheelchair, states can bear weight but will need transfer assist History of hepatitis B Remote hx per pt History of melanoma s/p excision Diabetic neuropathy History of colon cancer Chronic systolic CHF (congestive heart failure) Hypertension Pacemaker Medtronic > unsure when last checked Lumbar spinal stenosis Generalized OA Dyslipidemia Surgical History History of Mohs micrographic surgery for skin cancer Hx of vascular surgery x2--recently 03/01/24 @ [facility] Dr. 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 History of anesthesia reaction Increased BP (needed overnight stay) after testicular surgery History of cardiac cath 11/2014 and 07/2007 @ [facility] History of testicular surgery History of colonoscopy Multiple History of tonsillectomy and adenoidectomy History of right hemicolectomy H/O prostatectomy Family History Mother Coronary heart disease Father Heart disease Social History Smoking Status: Never smoker Second Hand Exposure: No; Do You Dip or Chew Tobacco: No; Hx Alcohol Use: Yes Alcohol type: wine Hx Substance Use: No Preferred Language: Nepali Communication Ability: Effective Visual Impairment: No Limitations Hearing Ability: Normal Code Official Required: No Beliefs That Will Affect Care: None marital status: Single Current Living Situation: Alone Current Living Situation Comment: has caregivers that come in 7 days per week current occupational status: retired How many Children do You have: 0 Feels Safe at Home: Yes Diet: diabetic Diet Comment: Increased protein for healing per chart during the past year weight has: remained stable Assistive Devices: Bedside Commode, Scooter/Electric Scooter and Wheelchair Allergies Allergies Allergy/AdvReac Type Severity Reaction Status Date / Time sildenafil Allergy Severe Face/head Verified 01/01/25 13:03 swelling ampicillin Allergy Mild Rash Verified 01/01/25 13:03 Macrolide Antibiotics Allergy Unknown Per records Verified 01/01/25 13:03 nitrofurantoin AdvReac Intermediate Diarrhea Verified 01/01/25 13:03 VASODILATORS Allergy Severe "Peripheral Uncoded 01/01/25 13:03 dilator", face/head swelling Home Meds Home Medications Medication Instructions Recorded Confirmed amiodarone 200 mg tablet 200 mg PO QAM 01/02/18 03/13/24 insulin glargine 100 unit/mL 16 units subcut QA 01/02/18 03/13/24 subcutaneous solution loratadine 10 mg tablet (Claritin) 10 mg PO QAM 01/02/18 03/13/24 magnesium oxide 400 mg (241.3 mg 400 mg PO QAM 01/02/18 03/13/24 magnesium) tablet metoprolol succinate 25 mg 25 mg PO QAM 01/02/18 03/13/24 tablet,extended release 24 hr gabapentin 300 mg capsule 300 mg PO TID 03/10/18 03/13/24 docusate sodium 100 mg capsule 100 mg PO BID 04/27/22 03/13/24 (Colace) mometasone 0.1 % topical solution 1 applic topical .EVERY 24 HOURS 04/27/22 03/13/24 PRN Itching acetaminophen 325 mg capsule 650 mg PO Q4 PRN PAIN/FEVER 05/10/22 03/13/24 bisacodyl 10 mg rectal suppository 10 mg [place] .EVERY 24 HOURS PRN 12/01/22 03/13/24 Constipation calcium 500 mg (as 1 tab PO QAM 12/01/22 03/13/24 carbonate)-vitamin D3 5 mcg (200 unit) tablet (Oyster Shell Calcium-Vitamin D3) mirtazapine 30 mg tablet (Remeron) 30 mg PO HS 12/01/22 03/13/24 multivit,stress formula-zinc tablet 1 tab PO QAM 12/01/22 03/13/24 midodrine 2.5 mg tablet 2.5 mg PO BID 03/10/23 03/13/24 zolpidem 5 mg tablet (Ambien) 5 mg PO QPM PRN Insomnia 03/10/23 03/13/24 furosemide 40 mg tablet 40 mg PO QAM 04/14/23 03/13/24 [id number] 250 mg-dha 90 1 cap PO QAM 04/14/23 03/13/24 mg-epa 160 [id number] capsule (Ocuvite Adult 50 Plus) warfarin 2 mg tablet 2 mg PO SUTUFR@1600 04/14/23 03/13/24 potassium chloride 20 mEq 20 meq PO QAM 08/18/23 03/13/24 tablet,extended release(part/cryst) clobetasol 0.05 % scalp solution 1 applic topical DIRECTED 12/19/23 03/13/24 fluticasone propionate 50 2 spray intranasal QAM 12/19/23 03/13/24 mcg/actuation nasal spray,suspension (Flonase Allergy Relief) ketoconazole 2 % shampoo 1 applic topical DIRECTED 12/19/23 03/13/24 lorazepam 1 mg tablet 1 mg PO HS 12/19/23 03/13/24 methenamine hippurate 1 gram 1 g PO QAM 12/19/23 03/13/24 tablet (Hiprex) warfarin 1 mg tablet 1 mg PO MOWETHSA@1600 03/04/24 03/13/24 melatonin 10 mg tablet 10 mg PO HS 03/08/24 03/13/24 hydrocodone 5 mg-acetaminophen 300 1 tab PO Q8H PRN Pain 03/13/24 03/13/24 mg tablet Previous Rx's Medication Instructions Recorded clopidogrel 75 mg tablet 75 mg PO QAM #90 tabs 10/17/23 nystatin 100,000 unit/gram topical 1 applic topical DAILY #60 grams 10/19/23 powder Results & Data (ED) Vital Signs Vital Signs - 24 hr 01/23/25 12:38 01/23/25 13:05 01/23/25 13:22 Temperature 37.3 C Temperature Source Oral Pulse Rate 97 H 84 Pulse Rate [Apical] Pulse Rhythm Respiratory Rate 16 Respiratory Effort / Characteristics Non-Labored Spontaneous Respiratory Depth Normal Respiratory Pattern Blood Pressure 133/71 Blood Pressure [Left Arm] Blood Pressure Mean 91 Blood Pressure Mean [Left Arm] Pulse Oximetry 94 94 Oxygen Delivery Method Room Air Room Air Sepsis Recent Fever Within 48 Hours No Sepsis New/Unexplained Change in Mental Status No Sepsis Action Taken by Nursing No Action Required 01/23/25 13:22 01/23/25 14:38 Temperature Temperature Source Pulse Rate 80 Pulse Rate [Apical] 68 Pulse Rhythm Regular Respiratory Rate 16 16 Respiratory Effort / Characteristics Non-Labored Spontaneous Respiratory Depth Normal Respiratory Pattern Regular Blood Pressure Blood Pressure [Left Arm] 126/68 Blood Pressure Mean Blood Pressure Mean [Left Arm] 87 Pulse Oximetry 94 94 Oxygen Delivery Method Room Air Room Air Sepsis Recent Fever Within 48 Hours Sepsis New/Unexplained Change in Mental Status Sepsis Action Taken by Snf Medications Current Medication List: was personally reviewed by me Laboratory Data Attestation: I reviewed the patient's lab results. 01/23/25 13:05 01/23/25 13:05 Lab Results 01/23/25 01/23/25 01/23/25 Range/Units 13:05 14:57 15:01 WBC 7.78 (4.8-10.8) K/ul RBC 4.42 L (4.70-6.10) M/uL Hgb 12.5 L (14.0-18.0) g/dl Hct 37.6 L (42.0-52.0) % MCV 85.1 (80.0-100.0) fL MCH 28.3 (25.0-34.0) pg MCHC 33.2 (32.0-36.0) g/dL RDW Std Deviation 49.1 H (36.4-46.3) fL RDW Coeff of Gabriela 15.9 H (11.5-14.5) % Plt Count 169 (130-400) K/uL MPV 9.3 L (9.4-12.4) fL Immature Gran % (Auto) 0.9 % Neut % (Auto) 72.3 % Lymph % (Auto) 14.4 % [place] % (Auto) 10.2 % Eos % (Auto) 1.9 % Baso % (Auto) 0.3 % Neut # (Auto) 5.63 (1.40-6.50) K/uL Lymph # (Auto) 1.12 L (1.20-3.40) K/uL [place] # (Auto) 0.79 H (0.11-0.59) K/uL Eos # (Auto) 0.15 (0.00-0.50) K/uL Baso # (Auto) 0.02 (0.00-0.20) K/uL Immature Gran # (Auto) 0.07 (0.01-0.20) K/uL PT 33.9 H (9.0-12.0) Seconds INR 3.4 H (0.9-1.1) APTT 51 H (21-31) Seconds PTT Ratio 1.9 Sodium 137 (136-145) mmol/L Potassium 4.0 (3.5-5.1) mmol/L Chloride 101 (98-107) mmol/L Carbon Dioxide 29 (21-32) mmol/L Anion Gap 7 (3-11) BUN 25 H (6-23) mg/dl Creatinine 1.33 (0.6-1.4) mg/dl Est Cr Clr Drug Dosing 42.6 ml/min eGFR 51.09 BUN/Creatinine Ratio 18.8 (10-20) Glucose 270 H (70-99(Fasting)) mg/dl Calcium 8.0 L (8.6-10.3) mg/dl Magnesium 1.9 (1.7-2.4) mg/dl Total Bilirubin 0.7 (0.2-1.0) mg/dl AST 25 (13-39) U/L ALT 30 (7-52) U/L Alkaline Phosphatase 133 H (34-104) U/L Total Creatine Kinase 23 L (30-223) U/L Troponin I High Sens 41.9 H 43.1 H (0-20) pg/ml C-Reactive Protein 16.35 H (0-0.5) mg/dl Total Protein 5.9 L (6.0-8.3) gm/dl Albumin 2.8 L (3.4-5.0) gm/dl Globulin 3.1 (2.5-4.0) gm/dl Albumin/Globulin Ratio 0.9 (0.9-2) TSH 1.498 (0.300-4.500) uIu/ml Urine Color Yellow Urine Appearance Cloudy A (Clear) Urine pH 5.0 (4.5-7.5) Ur Specific [place] 1.015 (1.000-1.030) Urine Protein Trace H (Negative) Urine Glucose (UA) Negative (Negative) Urine Ketones Negative (Negative) Urine Blood 3+ H (Negative) Urine Nitrite Negative (Negative) Urine Bilirubin Negative (Negative) Urine Urobilinogen Negative (Negative) Ur Leukocyte Esterase 3+ H (Negative) Urine WBC (Auto) >50 H (0-5) /hpf Urine RBC (Auto) >20 H (0-2) /hpf U Hyaline Cast (Auto) 3-5 H (0-2) /lpf U Epithel Cells (Auto) 0-2 (0-2) /hpf Urine Bacteria (Auto) 1+ H (None Seen) Urine Comment Administered Medications Discontinued Medications Sodium Chloride (Nss) 500 mls @ 999 mls/hr IV .Q31M ABIODUN Stop: 01/23/25 13:15 Last Infusion: 01/23/25 14:32 Dose: Infused Documented By: Admin: 01/23/25 13:27 Dose: 999 mls/hr Documented By: RAJESH Imaging Data Attestation: I personally reviewed and interpreted this imaging study as follows: My Impression: 1 view chest x-ray was obtained in the emergency department. My interpretation is patchy infiltrate noted at both bases, final report below. Radiologist's Impression: Chest X-Ray 01/23/25 12:40 XR chest 1V portable CLINICAL HISTORY: weakness COMPARISON STUDY: 03/04/2024 FINDINGS: Stable pacemaker. Stable cardiomegaly without pulmonary vascular congestion. There is interval fatty reticular opacity at the right mid lung and left lung base. There is stable mild blunting of the costophrenic angles. No pneumothorax. IMPRESSION: Possible early pneumonia. ACT 112: Negative or not required by law. Electronically signed by: Esa Aguilar M.D. 01/23/2025 1:[address] 01/23/25 12:40 CT head/brain wo con CLINICAL HISTORY: 89 years-old Male with weak. Acute weakness TECHNIQUE: Multiple axial CT images of the head were obtained without contrast. A dose lowering technique was utilized adhering to the principles of ALARA. CT DOSE: 750.68 mGy.cm COMPARISON: 11/06/2022 FINDINGS: No acute intracranial hemorrhage, midline shift, intracranial mass, hydrocephalus, territorial ischemia or abnormal extra-axial collection. Involutional changes with chronic microvascular ischemic disease. Chronic appearing tiny basal ganglia lacunar infarcts. The calvarium is intact. Large left maxillary sinus polyp is partially imaged. Complete opacification of the left sphenoid sinus. IMPRESSION: No acute intracranial abnormality identified. ACT 112: Negative or not required by law. The above report was generated using voice recognition software. It may contain grammatical, syntax or spelling errors. Electronically signed by: Ollie Hendrix M.D. 01/23/2025 2:05 PM Discharge Plan Visit Data Chief Complaint: Weakness Stated Complaint: WEAKNESS, LETHARGIC, POSSIBLE UTI ED Provider: Maico Hernández Discharge Problem: Pneumonia, Acute alteration in mental status, Elevated troponin I level, Urinary tract infection Patient Disposition: Being Evaluated by Hospitalist Condition: Fair Forms Stand Alone Forms: My [facility] Prescriptions Prescriptions: No Action midodrine 2.5 mg tablet 2.5 mg PO BID Rx Instructions: do not give last dose of day after 6PM or within 4 hrs of bedtime nystatin 100,000 unit/gram powder 1 applic topical DAILY Qty: 60 2RF Rx Instructions: APPLY TO GROIN AREA clopidogrel 75 mg tablet 75 mg PO QAM Qty: 90 3RF gabapentin 300 mg capsule 300 mg PO TID insulin glargine 100 unit/mL Solution 16 units subcut QAM magnesium oxide 400 mg (241.3 mg magnesium) Tablet 400 mg PO QAM metoprolol succinate 25 mg Tablet Extended Release 24 Hr 25 mg PO QAM loratadine [Claritin] 10 mg Tablet 10 mg PO QAM amiodarone 200 mg tablet 200 mg PO QAM zolpidem [Ambien] 5 mg tablet 5 mg PO QPM PRN (Reason: Insomnia) Rx Instructions: Takes @ 2300 every pm acetaminophen 325 mg Capsule 650 mg PO Q4 MDD 3g PRN (Reason: PAIN/FEVER) Rx Instructions: use for mild pain or temp=>100 bisacodyl 10 mg Suppository 10 mg [place] .EVERY 24 HOURS PRN (Reason: Constipation) mirtazapine [Remeron] 30 mg Tablet 30 mg PO HS calcium carbonate-vitamin D3 [Oyster Shell Calcium-Vit D3] 500 mg-5 mcg (200 unit) Tablet 1 tab PO QAM multivit,stress formula-zinc Tablet 1 tab PO QAM mometasone 0.1 % Solution 1 applic TOPICAL .EVERY 24 HOURS PRN (Reason: Itching) Rx Instructions: apply to affected area daily to back docusate sodium [Colace] 100 mg Capsule 100 mg PO BID furosemide 40 mg tablet 40 mg PO QAM warfarin 2 mg tablet 2 mg PO SUTUFR@1600 Rx Instructions: DIRECTED BY [facility] Ocuvite Adult 50 Plus 250 mg (90 mg-160 mg) Capsule 1 cap PO QAM potassium chloride 20 mEq tablet,ER particles/crystals 20 meq PO QAM Rx Instructions: unable to verify 08/18/23 lorazepam 1 mg tablet 1 mg PO HS Rx Instructions: Takes every hs @ 1999 ketoconazole 2 % shampoo 1 applic TOPICAL DIRECTED clobetasol 0.05 % solution 1 applic TOPICAL DIRECTED Rx Instructions: When washes hair. fluticasone propionate [Flonase Allergy Relief] 50 mcg/actuation [place],Suspension 2 spray INTRANASAL QAM Rx Instructions: administer into each nostril methenamine hippurate [Hiprex] 1 gram tablet 1 g PO QAM warfarin 1 mg tablet 1 mg PO MOWETHSA@1600 melatonin 10 mg Tablet 10 mg PO HS hydrocodone-acetaminophen 5-300 mg Tablet 1 tab PO Q8H PRN (Reason: Pain) Referrals Referrals: Vianey Matamoros MD [Primary Care Provider] -
--- NOTE | 2025-01-23 13:06 | XRay Report ---
XR chest 1V portable CLINICAL HISTORY: weakness COMPARISON STUDY: 03/04/2024 FINDINGS: Stable pacemaker. Stable cardiomegaly without pulmonary vascular congestion. There is inter janet fatty reticular opacity at the right mid lung and left lung base. There is stable mild blunting o f the costophrenic angles. No pneumothorax. IMPRESSION: Possible early pneumonia. ACT 112: Negative or not required by law. Electronically signed by: Esa Aguilar M.D. 01/23/2025 1:05 PM
[2025-01-23 13:26] LABS: Hematocrit (blood only) 37.6 % (42.0-52.0); Hemoglobin 12.5 g/dl (14.0-18.0); Immature Granulocytes # (auto) 0.07 K/uL (0.01-0.20); Immature Granulocytes % (auto) 0.9 %; Mean Corpuscular Hemoglobin 28.3 pg (25.0-34.0); Mean Corpuscular Volume 85.1 fL (80.0-100.0); Platelet Count 169 K/uL (130-400); RDW Standard Deviation 49.1 fL (36.4-46.3); Red Blood Count 4.42 M/uL (4.70-6.10); White Blood Count 7.78 K/ul (4.8-10.8)
[2025-01-23] MEDS: SODIUM CHLORIDE 0.9% 500 ML IV SCH (13:27)
[2025-01-23 13:44] LABS: Alanine Aminotransferase 30.0 U/L (7-52); Albumin Globulin Ratio 0.9 (0.9-2); Albumin Level 2.8 gm/dl (3.4-5.0); Alkaline Phosphatase 133.0 U/L (34-104); Anion Gap 7.0 (3-11); Bilirubin,Total 0.7 mg/dl (0.2-1.0); Blood Urea Nitrogen 25.0 mg/dl (6-23); Calcium 8.0 mg/dl (8.6-10.3); Carbon Dioxide 29.0 mmol/L (21-32); Chloride 101.0 mmol/L (98-107); Creatine Kinase 23.0 U/L (30-223); Creatinine Clr Calc Pharmacy 42.6 ml/min; Globulin 3.1 gm/dl (2.5-4.0); Glucose 270.0 mg/dl (70-99(Fasting)); Magnesium 1.9 mg/dl (1.7-2.4); Potassium 4.0 mmol/L (3.5-5.1); Sodium 137.0 mmol/L (136-145); Total Protein 5.9 gm/dl (6.0-8.3)
[2025-01-23 13:54] LABS: INR 3.4 (0.9-1.1); Partial Thromboplastin Time 51 Seconds (21-31); Prothrombin Time 33.9 Seconds (9.0-12.0)
[2025-01-23 14:00] LABS: Thyroid Stimulating Hormone 1.498 uIu/ml (0.300-4.500)
--- NOTE | 2025-01-23 14:06 | CT Scan Report ---
CT head/brain wo con CLINICAL HISTORY: 89 years-old Male with weak. Acute weakness TECHNIQUE: Multiple axial CT images of the head were obtained without contrast. A dose lowering tech nique was utilized adhering to the principles of ALARA. CT DOSE: 750.68 mGy.cm COMPARISON: 11/06/2022 FINDINGS: No acute intracranial hemorrhage, midline shift, intracranial mass, hydrocephalus, territorial ischem ia or abnormal extra-axial collection. Involutional changes with chronic microvascular ischemic disea se. Chronic appearing tiny basal ganglia lacunar infarcts. The calvarium is intact. Large left maxillary sinus polyp is partially imaged. Complete opacificatio n of the left sphenoid sinus. IMPRESSION: No acute intracranial abnormality identified. ACT 112: Negative or not required by law. The above report was generated using voice recognition software. It may contain grammatical, syntax o r spelling errors. Electronically signed by: Ollie Hendrix M.D. 01/23/2025 2:05 PM
[2025-01-23 15:38] LABS: Appearance Urine Cloudy (Clear); Bacteria Urine Automated 1+ (None Seen); Epithelial Cell Urine Auto 0-2 /hpf (0-2); Glucose Urine UA Negative (Negative); RBC Urine Automated >20 /hpf (0-2); WBC Urine Automated >50 /hpf (0-5)
--- NOTE | 2025-01-23 15:52 | History & Physical Report ---
Date of Service January 23, 2025 Assessment & Plan (1) Generalized weakness: (2) Lethargy: (3) Ambulatory dysfunction: (4) Pneumonia: (5) Catheter-associated urinary tract infection: (6) Berman catheter in place prior to arrival: (7) Supratherapeutic INR: Plan Patient is an 89y/o M with PMHx significant for multifactorial HFrEF with history of nonischemic cardiomyopathy, chronic CAD, PAD previously requiring multiple interventions, paroxysmal atrial fibrillation anticoagulated on Coumadin, history of cardiac catheterization in 2014 demonstrating 80% stenosis of the proximal portion of a small to moderate-sized PDA branch at the distal RCA for which medical management was recommended, SSS s/p permanent pacemaker implantation in 2022, chronic dizziness with history of autonomic dysfunction, ascending colon adenocarcinoma s/p right hemicolectomy in 2017, DMII, diabetic polyneuropathy with history of diabetic foot ulcers and osteomyelitis s/p left 4th/5th and right 2nd toe amputation, history of urinary retention with incomplete bladder emptying, bilateral exudative age-related macular degeneration, MAGI and CKD stage III who presented to the ED via EMS with his caregiver due to increasing weakness and lethargy over the past 6-8 weeks. #Increasing weakness, lethargy #Ambulatory dysfunction Mostly wheelchair bound at baseline s/p fall with femoral fracture in 2022 Previously 1-person assist, stand/pivot for transfers; was able to walk a few steps here and there as well Patient now requiring 2-3 person assist with transfers Has sustained multiple falls during transfers over the past several weeks Gradual functional decline likely exacerbated by possible early PNA, possible CAUTI Appreciate PT/OT evaluations Likely will need SNF Patient was getting PT/OT and HH services through [facility] TURBINE OPERATOR Also with caregiver support through [facility] (refer to bottom of note) #Possible early PNA seen on CXR Increasing wet-sounding cough over the past week per patient's caregiver Was treated for acute sinusitis last month, had CXR at that time which was unremarkable -Cough initially improved but has now returned Not requiring any supplemental O2 use Not currently meeting sepsis criteria History of aspiration -- could be contributing Respiratory BioFire panel, MRSA swab pending S/p IV Rocephin in ED Will cover with IV cefepime for now pending blood culture results Hypertonic nebs BID Obtain sputum culture as able #History of urinary retention with chronic Berman catheter use #Berman catheter in place TURBINE OPERATOR #History of recurrent UTIs #Possible CAUTI --> UA: 3+ LE, >50 WBC, 1+ bacteria Hold Hiprex Berman catheter exchanged in ED Covering with IV cefepime for now Follow urine and blood culture results Continue topical nystatin in groin region (candidal appearance - uses 2/2 catheter irritation TURBINE OPERATOR) Patient was seemingly somewhat confused earlier this morning -- was mixing up times/dates -Seems to have improved since arrival to ED -Patient A&Ox2-3 with direct questioning in ED, able to recall situation/how he got to ED #Stage III pressure ulcer of buttock POA #Pressure ulcer of left foot, stage III POA Follows with [facility] wound clinic Wounds appear to be improving Appreciate inpatient wound care consult for further management of these areas #Chronic dizziness with history of autonomic dysfunction Continue midodrine for now #Moderate-severe oropharyngeal dysphagia with history of aspiration Fluoro swallow study, 01/2022: diffusely incomplete swallowing mechanics, weak pharyngeal constriction and poor tongue base retraction, tono aspiration RESIDENT SERVICES SUPERVISOR previously recommending easy to chew diet, thin liquids ( add extra sauce/gravy to foods, assistance with cutting food into smaller pieces) Will continue above recommendations Appreciate RESIDENT SERVICES SUPERVISOR reevaluation to reassess swallowing ability, ? additional diet changes Aspiration precautions #Concern for possible LAZARUS Patient's caregiver reported witnessed apneic events during sleep over the past week Lasting anywhere from 2-7 seconds at a time No prior diagnosis of LAZARUS VBG personally reviewed and grossly unremarkable Not requiring any supplemental O2 use Nocturnal oximetry study ordered for further evaluation #Paroxysmal atrial fibrillation anticoagulated on Coumadin #Supratherapeutic INR Hold Coumadin for now given supratherapeutic INR Repeat PT/INR in a.m., resume Coumadin as able Continue amiodarone, BB #Elevated troponin Patient without any specific cardiac complaints EKG personally reviewed and grossly unremarkable, no evidence of acute ST changes Likely demand ischemia ISO above Follow troponin trend Continue telemetry monitoring for now EKG with chest pain as needed #SSS s/p permanent pacemaker placement in 2022 #Multifactorial HFrEF with history of nonischemic cardiomyopathy TTE, 01/2021: mildly reduced EF = 45% (stable), grade I DD, severely enlarged LA, trace loculated posterior pericardial effusion (stable; no evidence of tamponade physiology) Appears dry on exam, hold Lasix for now #CAD Continue Plavix #Hypocalcemia Check ionized calcium Continue calcium supplementation Check 25-OH vitamin D level if ionized calcium low #History of cardiac catheterization in 2014 demonstrating 80% stenosis of the proximal portion of a small to moderate-sized PDA branch at the distal RCA No intervention, medical management recommended Follows with [facility] cardiology as an outpatient #Ascending colon adenocarcinoma s/p right hemicolectomy in 2018 Did not require adjuvant chemotherapy, remains under observation Follows with [facility] oncology, Dr. Eng #Insulin-requiring DMII Hemoglobin A1c 6.7% as of August 2024 Repeat hemoglobin A1c in a.m. Basal/bolus regimen while inpatient with BSG checks ACHS Appreciate glycemic pharmacy consult for assistance with insulin management #Diabetic polyneuropathy Continue gabapentin #CKD stage III Baseline creatinine 1.1-1.4 Creatinine stable at time of admission Continue to monitor and avoid nephrotoxic agents as able DVT Prophylaxis: SCDs/TEDs, Coumadin on hold for now as per above Code Status: FULL CODE - As per patient's expressed wishes at bedside in ED PCP: Vianey Matamoros MD Disposition: Admit to med/telemetry Patient currently with caregiver support through [facility] - weekdays 5- 7hrs/day, nights from 6P-10P M/W/F/Weekends Also has HH and PT/OT services visiting at home through [facility] Patient seen in collaboration with Dr. Hernandze. Please see addendum. I spent a total of 72 minutes coordinating, documenting, and providing care for this patient excluding time spent in the performance of separately billed services or time spent by another provider/QHP. This included personally reviewing all current laboratories and imaging studies, medical reconciliation, outpatient chart review and discussion with specialists. This chart was completed in part utilizing Speech Voice Recognition Software. Grammatical errors, random word insertions, pronoun errors, and incomplete sentences are an occasional consequence of this system due to software limit ations, ambient noise, and hardware issues. Any formal questions or concerns about the content, text, or information contained within the body of this dictation should be directly addressed to the provider for clarification. History of Present Illness Chief Complaint: Increased weakness, lethargy Primary Care Provider: Vianey Matamoros MD Patient is an 89-year-old male with past medical history significant for multifactorial HFrEF with history of nonischemic cardiomyopathy, chronic CAD, PAD previously requiring multiple interventions, paroxysmal atrial fibrillation anticoagulated on Coumadin, history of cardiac catheterization in 2014 demonstrating 80% stenosis of the proximal portion of a small to moderate-sized PDA branch at the distal RCA for which medical management was recommended, SSS s/p permanent pacemaker implantation in 2022, chronic dizziness with history of autonomic dysfunction, ascending colon adenocarcinoma s/p right hemicolectomy in 2018, DMII, diabetic polyneuropathy with history of diabetic foot ulcers and osteomyelitis s/p left 5th toe amputation, history of urinary retention with incomplete bladder emptying, bilateral exudative age-related macular degeneration, MAGI and CKD stage III who presented to the ED via EMS with his caregiver due to increasing weakness and lethargy over the past 6-8 weeks. History obtained from the patient, patient's caregiver at bedside, discussion with ED provider and associated chart review. Patient seen at bedside in ED with Dr. Hernandez. Increased weakness and lethargy over the past 6-8 weeks. Mostly wheelchair-bound at baseline, previously pivot for transfers. Increasing difficulty with transfers over the past several weeks. Has sustained multiple falls during transfers as his "legs give out." Previously treated for acute sinusitis last month with doxycycline and prednisone. Had a wet sounding cough at that time which initially improved but has now returned over the past week. No reported fevers. Denies any SOB. Has chronic Berman catheter. History of urinary retention. Caregiver has noticed his urine is darker and malodorous recently. Patient did initially seem somewhat confused this morning, was mixing up times and dates. This seems to have improved since arrival to ED. 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 Worked at [employer] for over 30 years. Allergies Allergy/AdvReac Type Severity Reaction Status Date / Time sildenafil Allergy Severe Face/head Verified 01/01/25 13:03 swelling ampicillin Allergy Mild Rash Verified 01/01/25 13:03 Macrolide Antibiotics Allergy Unknown Per records Verified 01/01/25 13:03 nitrofurantoin AdvReac Intermediate Diarrhea Verified 01/01/25 13:03 VASODILATORS Allergy Severe "Peripheral Uncoded 01/01/25 13:03 dilator", face/head swelling Home Medications Medication Instructions Recorded Confirmed Type amiodarone 200 mg tablet 200 mg PO QAM 01/02/18 01/23/25 History insulin glargine 100 unit/mL 19 units subcut QAM 01/02/18 01/23/25 History subcutaneous solution loratadine 10 mg tablet (Claritin) 10 mg PO QAM 01/02/18 01/23/25 History magnesium oxide 400 mg (241.3 mg 400 mg PO QAM 01/02/18 01/23/25 History magnesium) tablet metoprolol succinate 25 mg 25 mg PO QAM 01/02/18 01/23/25 History tablet,extended release 24 hr gabapentin 300 mg capsule 300 mg PO TID 03/10/18 01/23/25 History docusate sodium 100 mg capsule 100 mg PO BID 04/27/22 01/23/25 History (Colace) bisacodyl 10 mg rectal suppository 10 mg IA DAILY PRN Constipation 12/01/22 01/23/25 History calcium 500 mg (as 1 tab PO QAM 12/01/22 01/23/25 History carbonate)-vitamin D3 5 mcg (200 unit) tablet (Oyster Shell Calcium-Vitamin D3) mirtazapine 30 mg tablet (Remeron) 30 mg PO HS 12/01/22 01/23/25 History multivit,stress formula-zinc tablet 1 tab PO QAM 12/01/22 01/23/25 History midodrine 2.5 mg tablet 2.5 mg PO BID 03/10/23 01/23/25 History zolpidem 5 mg tablet (Ambien) 5 mg PO QPM PRN Insomnia 03/10/23 01/23/25 History furosemide 40 mg tablet 40 mg PO QAM 04/14/23 01/23/25 History qavesotk-lqp-owpwj4 250 mg-dha 90 1 cap PO QAM 04/14/23 01/23/25 History mg-epa 160 oo-gxhh-cvac-zeax capsule (Ocuvite Adult 50 Plus) potassium chloride 20 mEq 20 meq PO QAM 08/18/23 01/23/25 History tablet,extended release(part/cryst) clopidogrel 75 mg tablet 75 mg PO QAM #90 tabs 10/17/23 01/23/25 Rx nystatin 100,000 unit/gram topical 1 applic topical DAILY #60 grams 10/19/23 01/23/25 Rx powder fluticasone propionate 50 2 spray intranasal QAM 12/19/23 01/23/25 History mcg/actuation nasal spray,suspension (Flonase Allergy Relief) ketoconazole 2 % shampoo 1 applic topical DIRECTED 12/19/23 01/23/25 History lorazepam 1 mg tablet 1 mg PO HS PRN Anxiety 12/19/23 01/23/25 History methenamine hippurate 1 gram 1 g PO QAM 12/19/23 01/23/25 History tablet (Hiprex) warfarin 1 mg tablet See Rx Instructions .Route .COMPLEX 03/04/24 01/23/25 History warfarin 1 mg tablet 1 mg PO UD 01/23/25 01/23/25 History Past Med/Surg History Problem List Berman catheter in place prior to arrival Catheter-associated urinary tract infection Lethargy Generalized weakness Urinary tract infection (Acute) Elevated troponin I level (Acute) Acute alteration in mental status (Acute) Pneumonia (Acute) Cough (Acute) Dermatitis associated with moisture (Acute) Pressure ulcer of left foot, stage 3 (Acute) Stage III pressure ulcer of buttock (Acute) Bradycardia Abnormal ankle brachial index Encounter for pre-operative examination Medical History Gangrene of toes--currently on oral antibiotic Post-COVID chronic cough Residual cough "lingering" since Covid 11/2023 Osteomyelitis PAD (peripheral artery disease) CKD (chronic kidney disease), stage III History of prostate cancer s/p prostatectomy Coronary artery disease Atrial fibrillation Follows with Dr. Ulrich Hx of prostatic malignancy Approximately 2018 Diabetes COVID-19 hx 11/2023 History of ESBL E. coli infection 2020 Open wound of buttock Wound care 3x weekly History of COVID-19 11/2023- cough/weakness, still coughing > was hospitalized at [facility] Pressure ulcer B/L feet, reason for upcoming procedure PVD (peripheral vascular disease) Berman catheter in place Changed monthly Cerebrovascular disease Ambulatory dysfunction uses motorized wheelchair, states can bear weight but will need transfer assist History of hepatitis B Remote hx per pt History of melanoma s/p excision Diabetic neuropathy History of colon cancer Chronic systolic CHF (congestive heart failure) Hypertension Pacemaker Medtronic > unsure when last checked Lumbar spinal stenosis Generalized OA Dyslipidemia Surgical History History of Mohs micrographic surgery for skin cancer Hx of vascular surgery x2--recently 03/01/24 @ [facility] Dr. 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 History of anesthesia reaction Increased BP (needed overnight stay) after testicular surgery History of cardiac cath 11/2014 and 07/2007 @ [facility] History of testicular surgery History of colonoscopy Multiple History of tonsillectomy and adenoidectomy History of right hemicolectomy H/O prostatectomy Family History Mother Coronary heart disease Father Heart disease Social History Smoking Status: Never smoker Second Hand Exposure: No; Do You Dip or Chew Tobacco: No; Hx Alcohol Use: Yes Alcohol type: wine Hx Substance Use: No Preferred Language: Bolivian Communication Ability: Effective Visual Impairment: No Limitations Hearing Ability: Normal Data Collection Interviewer Required: No Beliefs That Will Affect Care: None marital status: Single Current Living Situation: Alone Current Living Situation Comment: has caregivers that come in 7 days per week current occupational status: retired How many Children do You have: 0 Feels Safe at Home: Yes Diet: diabetic Diet Comment: Increased protein for healing per chart during the past year weight has: remained stable Assistive Devices: Bedside Commode, Scooter/Electric Scooter and Wheelchair Review of Systems Review of Systems: At least ten systems reviewed and negative, except as noted in the HPI. Physical Exam Physical Exam: Please refer to Dr. Hernandez's addendum for physical examination findings. Results & Data Results & Data Vital Signs (Past 12 Hours) Vital Signs Temp Pulse Pulse Resp BP BP Pulse Ox 01/23/25 14:38 68 16 126/68 94 01/23/25 13:22 80 16 94 01/23/25 13:22 94 01/23/25 13:05 84 01/23/25 12:38 37.3 C 97 H 16 133/71 94 O2 Del Method 01/23/25 14:38 Room Air 01/23/25 13:22 Room Air 01/23/25 13:22 Room Air 01/23/25 13:05 01/23/25 12:38 Room Air Laboratory Results Short CBC 01/23/25 Range/Units 13:05 WBC 7.78 (4.8-10.8) K/ul Hgb 12.5 L (14.0-18.0) g/dl Hct 37.6 L (42.0-52.0) % Plt Count 169 (130-400) K/uL BMP 01/23/25 13:05 Sodium 137 Potassium 4.0 Chloride 101 Carbon Dioxide 29 BUN 25 H Creatinine 1.33 Glucose 270 H Calcium 8.0 L Cardiac Enzymes 01/23/25 Range/Units 13:05 Total Creatine Kinase 23 L (30-223) U/L Liver Function 01/23/25 Range/Units 13:05 Total Bilirubin 0.7 (0.2-1.0) mg/dl AST 25 (13-39) U/L ALT 30 (7-52) U/L Alkaline Phosphatase 133 H (34-104) U/L Albumin 2.8 L (3.4-5.0) gm/dl Urine 01/23/25 Range/Units 15:01 Urine Color Yellow Urine Appearance Cloudy A (Clear) Urine pH 5.0 (4.5-7.5) Ur Specific [place] 1.015 (1.000-1.030) Urine Protein Trace H (Negative) Urine Glucose (UA) Negative (Negative) Diagnostic Findings Chest X-Ray 01/23/25 12:40 XR chest 1V portable CLINICAL HISTORY: weakness COMPARISON STUDY: 03/04/2024 FINDINGS: Stable pacemaker. Stable cardiomegaly without pulmonary vascular congestion. There is interval fatty reticular opacity at the right mid lung and left lung base. There is stable mild blunting of the costophrenic angles. No pneumothorax. IMPRESSION: Possible early pneumonia. ACT 112: Negative or not required by law. Electronically signed by: Esa Aguilar M.D. 01/23/2025 1:[address] 01/23/25 12:40 CT head/brain wo con CLINICAL HISTORY: 89 years-old Male with weak. Acute weakness TECHNIQUE: Multiple axial CT images of the head were obtained without contrast. A dose lowering technique was utilized adhering to the principles of ALARA. CT DOSE: 750.68 mGy.cm COMPARISON: 11/06/2022 FINDINGS: No acute intracranial hemorrhage, midline shift, intracranial mass, hydrocephalus, territorial ischemia or abnormal extra-axial collection. Involutional changes with chronic microvascular ischemic disease. Chronic appearing tiny basal ganglia lacunar infarcts. The calvarium is intact. Large left maxillary sinus polyp is partially imaged. Complete opacification of the left sphenoid sinus. IMPRESSION: No acute intracranial abnormality identified. ACT 112: Negative or not required by law. The above report was generated using voice recognition software. It may contain grammatical, syntax or spelling errors. Electronically signed by: Ollie Hendrix M.D. 01/23/2025 2:05 PM Medications Administered Sodium Chloride (Nss) 500 mls @ 999 mls/hr IV .Q31M ONE Stop: 01/23/25 16:10 Last Admin: 01/23/25 15:56 Dose: 999 mls/hr Documented By: EDDIE Discontinued Medications Sodium Chloride (Nss) 500 mls @ 999 mls/hr IV .Q31M ABIODUN Stop: 01/23/25 13:15 Last Infusion: 01/23/25 14:32 Dose: Infused Documented By: Admin: 01/23/25 13:27 Dose: 999 mls/hr Documented By: RAJESH Ceftriaxone Sodium (Rocephin) 2,000 mg in 50 mls @ 100 mls/hr IV NOW STA Stop: 01/23/25 15:40 Last Admin: 01/23/25 15:56 Dose: 100 mls/hr Documented By: EDDIE
[2025-01-23] MEDS: SODIUM CHLORIDE 0.9% 500 ML IV ONE (15:56)
[2025-01-23] MEDS: cefTRIAXone SODIUM 2,000 MG/50 ML BAG IV STA (15:56)
[2025-01-23 16:02] LABS: Base Excess VBG 6.1 mEq/L; HCO3 VBG 32 mmol/L; Oxygen Saturation VBG < 60.0 %; PCO2 VBG 49 mmHg (38-50); PO2 VBG 27 mmHg; pH VBG 7.42 (7.36-7.41)
--- NOTE | 2025-01-23 17:05 | Communication Note ---
Date of Service: January 23, 2025 Attending Addendum: Case reviewed with the advanced practitioner. I have personally performed a history and physical examination on the patient. I have reviewed the advanced practitioner's documentation on the date of service referenced in note, and I agree with, and take responsibility for the plan of care. please refer to her notes for full details patient seen and examined, records reviewed by myself as well on exam, patient seen resting in bed, comfortable, appears weak alert, oriented x 2-3, answering most questions appropriately states he feels weak (+) wet cough, unable to expectorate phlegm no shortness of breath no chest pain no abdominal pain (+) chronic terry- changed in the ER no other symptoms VS noted and reviewed oriented x 2-3 , not in distress, speaks in sentences with no effort nor accessory muscle use, appears weak, frail normal rate, regular rhythm, no murmurs mild rhonchi at the bases, no wheezes non distended, soft, nontender back- (+) superficial skin erosions with some erythema over the sacral area R side (appears better compared to photos taken from wound care center 01/01) no bipedal edema, erythema, warmth L foot: dressing in place, no bleeding/discharge, no surrounding erythema/warmth/tenderness no neuro deficits all labs, imaging noted and reviewed ASSESSMENT AND PLAN> GENERALIZED WEAKNESS SECONDARY TO: BILATERAL PNEUMONIA has history of dysphagia, aspiration- on permissive aspiration as per caregiver, on regular diet lives at home, visits wound care center 1-2x per month (+) cough since last month, no improvement with Doxycycline and Prednisone CXR: There is interval fatty reticular opacity at the right mid lung and left lung base. respiratory panel ordered MRSA swab ordered sputum culture ordered blood cultures pending empiric Cefepime IV hypertonic saline nebs q12h POSSIBLE CATHETER ASSOCIATED UTI terry exchange done at the ER today urine culture: pending empiric Cefepime CHRONIC SACRAL WOUND, L FOOT WOUND appears stable-improving math tutor consult DISPOSITION lives at home with caregiver may need SNF other chronic medical problems: NONISCHEMIC CARDIOMYOPATHY EF 45% - on the dry side, hold off on Lasix, re- evaluated tomorrow SSS S/P PACEMAKER A FIB ON COUMADIN - INR 3.4, hold coumadin, INR daily CAD PAD other diagnoses and plan of care as per advanced practitioner's notes I spent a total of 45 minutes coordinating, documenting, and providing care for this patient, excluding time spent in the performance of separately billed services or time spent by another provider/QHP. Moose Hernandez MD
[2025-01-23] MEDS: CEFEPIME 2000MG 2,000 MG/20 ML SYR IV ONE (17:08)
[2025-01-23] MEDS ORDERED: GLUCOSE 10 TAB/TUBE PO PRN (17:12)
[2025-01-23] MEDS ORDERED: CARBOHYDRATES FOR HYPOGLYCEMIA PO PRN (17:12)
[2025-01-23] MEDS ORDERED: DEXTROSE 50% 50 ML SYRINGE IV PRN (17:12)
[2025-01-23] MEDS ORDERED: GLUCOSE 40% GEL 15 GM TUBE PO PRN (17:12)
[2025-01-23] MEDS ORDERED: PHARMACY GLYCEMIC MGMT CONSULT PRN (17:12)
[2025-01-23] MEDS ORDERED: GLUCAGON FOR INJ 1 MG VIAL SQ PRN (17:12)
[2025-01-23 17:32] LABS: Chlamydia pneumoniae PCR Not Detected (NotDetected); Coronavirus 229E PCR Not Detected (NotDetected); Coronavirus CoV-2 (COVID19)PCR Not Detected (NotDetected); Coronavirus HKU1 PCR Not Detected (NotDetected); Coronavirus NL63 PCR Not Detected (NotDetected); Coronavirus OC43PCR Not Detected (NotDetected); Human Metapneumovirus PCR Not Detected (NotDetected); Parainfluenza Virus 1 PCR Not Detected (NotDetected); Parainfluenza Virus 2 PCR Not Detected (NotDetected); Parainfluenza Virus 3 PCR Not Detected (NotDetected); Parainfluenza Virus 4 PCR Not Detected (NotDetected); Respiratory Syncytial VirusPCR Not Detected (NotDetected); Rhinovirus/Enterovirus PCR DETECTED (NotDetected)
--- NOTE | 2025-01-23 18:16 | Electrocardiogram Report ---
Test Reason : Blood Pressure : */* mmHG Vent. Rate : 80 BPM Atrial Rate : 80 BPM P-R Int : 212 ms QRS Dur : 174 ms QT Int : 448 ms P-R-T Axes : 78 267 89 degrees QTcB Int : 516 ms Atrial-sensed ventricular-paced rhythm with prolonged AV conduction Abnormal ECG When compared with ECG of 04-Mar-2024 13:13, Vent. rate has increased by 17 bpm Confirmed by Genaro Dillon ([id number]) on 01/23/2025 6:15:35 PM Referred By: Confirmed By: Genaro Dillon
--- NOTE | 2025-01-23 18:39 | Pharmacy Report ---
Pharmacy Glycemic Short Note 2 - Date of Service January 23, 2025 - Glycemic Short BSG Results (Last 24 hours): 01/23/25 13:05 Glucose 270 H OUTPATIENT ANTIDIABETIC REGIMEN: * Insulin glargine 19 units every morning * HbA1c pending AM labs 01/24 ASSESSMENT: * 89 year old male with T2DM, CKD III presents to hospital for increasing weakness and lethargy over past 6-8 weeks. * T2DM diet * Patient received 19 units of insulin glargine this morning, 01/23 prior to admission * Only glucose value so far of 270, high * Will initiate 10 units insulin glargine every morning and add Novolog sliding scale weight-based dose with a stress of 2 * Stressors: potential infection (cefepime) PLAN FOR INPATIENT GLYCEMIC CONTROL: * Basal insulin * Lantus 10 units SQ QAM * Bolus insulin * NovoLog per scale ACHS or Q6hrs while NPO * Goal Range: Low 110 mg/dL - High 140 mg/dL * Correction Factor: 30 mg/dL/unit * Nutritional / Prandial insulin per carb ratio of 1 unit per 12 grams CHO consumed
[2025-01-23] MEDS ORDERED: ONDANSETRON INJ 2 MG/ML 2 ML VIAL IV PRN (19:43)
[2025-01-23] MEDS ORDERED: MAGNESIUM HYDROXIDE SUSP 30 ML UDC PO PRN (19:43)
[2025-01-23] MEDS ORDERED: POLYETHYLENE (MIRALAX) 17 GM PACK PO PRN (19:43)
[2025-01-23] MEDS: DOCUSATE SODIUM 100 MG CAP PO SCH (20:58)
[2025-01-23] MEDS: MIRTAZAPINE TAB 15 MG TAB PO SCH (20:58)
[2025-01-23] MEDS: GABAPENTIN 300 MG CAP PO SCH (20:58)
[2025-01-23] MEDS: INSULIN ASPART PER UNIT CHARGE SC SCH (21:04)
--- NOTE | 2025-01-23 22:20 | Communication Note ---
Date of Service: January 23, 2025 RT requesting for nocturnal pulse ox order on admission to be held for now and reordered prior to discharge. Results only valid for 24 hours as per RT.
[2025-01-23] MEDS: SODIUM CHLOR 7% 4 ML NEB NEB SCH (23:30)
[2025-01-23] MEDS: MELATONIN 3 MG TAB PO PRN (23:39)
[2025-01-24 03:58] LABS: Hematocrit (blood only) 36.9 % (42.0-52.0); Hemoglobin 11.9 g/dl (14.0-18.0); Immature Granulocytes # (auto) 0.07 K/uL (0.01-0.20); Immature Granulocytes % (auto) 0.9 %; Mean Corpuscular Hemoglobin 28.1 pg (25.0-34.0); Mean Corpuscular Volume 87.0 fL (80.0-100.0); Platelet Count 174 K/uL (130-400); RDW Standard Deviation 50.5 fL (36.4-46.3); Red Blood Count 4.24 M/uL (4.70-6.10); White Blood Count 7.41 K/ul (4.8-10.8)
[2025-01-24 04:15] LABS: Alanine Aminotransferase 25.0 U/L (7-52); Albumin Globulin Ratio 0.9 (0.9-2); Albumin Level 2.7 gm/dl (3.4-5.0); Alkaline Phosphatase 118.0 U/L (34-104); Anion Gap 5.0 (3-11); Bilirubin,Total 0.6 mg/dl (0.2-1.0); Blood Urea Nitrogen 24.0 mg/dl (6-23); Calcium 7.9 mg/dl (8.6-10.3); Carbon Dioxide 29.0 mmol/L (21-32); Chloride 103.0 mmol/L (98-107); Creatinine Clr Calc Pharmacy 47.2 ml/min; Globulin 3.0 gm/dl (2.5-4.0); Glucose 125.0 mg/dl (70-99(Fasting)); Magnesium 2.0 mg/dl (1.7-2.4); Potassium 3.8 mmol/L (3.5-5.1); Sodium 137.0 mmol/L (136-145); Total Protein 5.7 gm/dl (6.0-8.3)
[2025-01-24 04:25] LABS: INR 3.6 (0.9-1.1); Prothrombin Time 35.3 Seconds (9.0-12.0)
[2025-01-24] MEDS: MIDODRINE HCL 2.5 MG TAB PO SCH (05:21)
[2025-01-24] MEDS: CEFEPIME 2000MG 2,000 MG/20 ML SYR IV SCH (05:21)
[2025-01-24 08:18] LABS: Hemoglobin A1C 8.1 % (4.5-5.6)
[2025-01-24] MEDS ORDERED: LANTUS PER UNIT CHARGE SQ SCH (09:00)
[2025-01-24] MEDS ORDERED: [UNRECOGNIZED DRUG - OTHER] PO SCH (09:00)
[2025-01-24] MEDS: LANTUS PER UNIT CHARGE SQ SCH (09:39)
[2025-01-24] MEDS: AMIODARONE 200 MG TAB PO SCH (09:47)
[2025-01-24] MEDS: CALCIUM 600MG + VIT D 400 IU TAB PO SCH (09:48)
[2025-01-24] MEDS: CLOPIDOGREL BISULFATE 75 MG TAB PO SCH (09:48)
[2025-01-24] MEDS: MAGNESIUM OXIDE 400 MG TAB PO SCH (09:48)
[2025-01-24] MEDS: FLUTICASONE PROPIONATE NA SPR 16 GM BTL SCH (09:48)
[2025-01-24] MEDS: METOPROLOL SUCC 25MG EXT REL TAB PO SCH (09:48)
[2025-01-24] MEDS: LORATADINE 10 MG TAB PO SCH (09:48)
[2025-01-24] MEDS: CEROVITE ADV FORMULA TAB PO SCH (09:49)
[2025-01-24] MEDS: NYSTATIN POWDER 15GM BTL EXT SCH (09:49)
--- NOTE | 2025-01-24 13:42 | Hospitalist Progress Note ---
Date of Service January 24, 2025 Assessment & Plan (1) Generalized weakness: (2) Lethargy: (3) Ambulatory dysfunction: (4) Pneumonia: (5) Catheter-associated urinary tract infection: (6) Berman catheter in place prior to arrival: (7) Supratherapeutic INR: Plan Patient is an 89y/o M with PMHx significant for multifactorial HFrEF with history of nonischemic cardiomyopathy, chronic CAD, PAD previously requiring multiple interventions, paroxysmal atrial fibrillation anticoagulated on Coumadin, history of cardiac catheterization in 2014 demonstrating 80% stenosis of the proximal portion of a small to moderate-sized PDA branch at the distal RCA for which medical management was recommended, SSS s/p permanent pacemaker implantation in 2022, chronic dizziness with history of autonomic dysfunction, ascending colon adenocarcinoma s/p right hemicolectomy in 2017, DMII, diabetic polyneuropathy with history of diabetic foot ulcers and osteomyelitis s/p left 4th/5th and right 2nd toe amputation, history of urinary retention with incomplete bladder emptying, bilateral exudative age-related macular degeneration, MAGI and CKD stage III who presented to the ED via EMS with his caregiver due to increasing weakness and lethargy over the past 6-8 weeks. Generalized weakness Deconditioning Ambulatory dysfunction Mostly wheelchair bound at baseline s/p fall with femoral fracture in 2022 Sustained multiple falls during transfers over the past several weeks PT OT, fall precautions Rhinovirus infection Possible multifocal pneumonia Chronic dysphagia--on permissive aspiration per Caregiver --CXR:reticular opacity at the right mid lung and left lung base -- BioFire positive for rhinovirus --Blood cultures negative to date -- Nasal MRSA negative -- Sputum cultures pending Empirically on IV cefepime On hypertonic saline nebs Continue aspiration precautions CAUTI--POA History of urinary retention with chronic Berman catheter use Urine culture growing E. coli Urinary catheter exchanged while in ED Empirically on IV cefepime Follow-up cultures Stage III pressure ulcer of buttock POA Pressure ulcer of left foot, stage III POA Follows with [facility] wound clinic Continue wound care Chronic dizziness with history of autonomic dysfunction Continue midodrine Moderate-severe oropharyngeal dysphagia with history of aspiration Fluoro swallow study, 01/2022: diffusely incomplete swallowing mechanics, weak pharyngeal constriction and poor tongue base retraction, tono aspiration COMPUTED TOMOGRAPHY TECHNOLOGIST previously recommending easy to chew diet, thin liquids ( add extra sauce/gravy to foods, assistance with cutting food into smaller pieces) Continue Aspiration precautions On permissive aspiration Speech therapy plan for video swallow study today Concern for possible LAZARUS Patient's caregiver reported witnessed apneic events during sleep over the past week Nocturnal oximetry study as able Needs polysomnography as outpatient Paroxysmal atrial fibrillation anticoagulated on Coumadin Supratherapeutic INR Hold Coumadin for now Monitor INR 3.6 today Continue amiodarone, metoprolol succinate 25 mg daily Elevated troponin Patient denies any anginal symptoms No significant rise in troponin EKG shows no signs of acute ischemia Monitor SSS s/p permanent pacemaker placement in 2022 Multifactorial HFrEF with history of nonischemic cardiomyopathy TTE, 01/2021: mildly reduced EF = 45% (stable), grade I DD, severely enlarged LA, trace loculated posterior pericardial effusion (stable; no evidence of tamponade physiology) Appears mildly dehydrated on presentation Lasix on hold --resume as able CAD History of cardiac catheterization in 2014 demonstrating 80% stenosis of the proximal portion of a small to moderate-sized PDA branch at the distal RCA Continue Plavix, metoprolol Mild Hypocalcemia Check vitamin D levels Continue vitamin, calcium supplements Ascending colon adenocarcinoma s/p right hemicolectomy in 2018 Did not require adjuvant chemotherapy, remains under observation Follows with [facility] oncology, Dr. Eng DM II HbA1c 8.1 Continue insulin per protocol Monitor blood glucose levels Appreciate glycemic pharmacy consult for assistance with insulin management Diabetic polyneuropathy Continue gabapentin CKD stage III Baseline creatinine 1.1-1.4 Monitor renal function Avoid nephrotoxic agents as able DVT Px: INR supratherapeutic CODE STATUS Full code Disposition PT OT prior to discharge Admission and Anticipated Discharge Date Admission Date: January 23, 2025 Subjective Patient is seen and examined at bedside States having generalized weakness and has chronic constipation Admits to have cough but no expectoration Denies any chest pain, dyspnea, nausea, vomiting, abdominal pain Saturating well on room air Review of Systems Review of Systems: All systems reviewed & are unremarkable except as noted in Subjective Physical Exam Physical Exam: Physical Exam: Vitals signs as noted above General Appearance:Moderately built and nourished, elderly, chronic ill appearing, no apparent distress Head: normocephalic, Atraumatic Eyes: normal inspection, EOMI Neck: supple, Trachea midline Respiratory/Chest: Normal breath sounds, CTA, No accessory muscle use Cardiovascular: S1, S2, No murmur Abdomen/GI:Soft, Non tender, Bowel sounds present Extremities/Musculoskeletal:normal inspection, no edema Neurologic/Psych:AAOX3, grossly no focal neurological deficits Skin: normal color, warm, +skin erosion sacral region, L foot dressing Results & Data Results & Data Vital Signs (Past 12 Hours) Vital Signs Temp Pulse Pulse Resp BP BP Pulse Ox 01/24/25 11:17 36.6 C 81 17 114/74 93 01/24/25 11:17 68 01/24/25 08:28 37.1 C 69 17 131/67 91 01/24/25 07:30 88 17 95 01/24/25 05:10 36.4 C L 67 20 107/61 94 O2 Del Method 01/24/25 11:17 Room Air 01/24/25 11:17 01/24/25 08:28 Room Air 01/24/25 07:30 Room Air 01/24/25 05:10 Room Air Laboratory Results Short CBC 01/24/25 Range/Units 03:21 WBC 7.41 (4.8-10.8) K/ul Hgb 11.9 L (14.0-18.0) g/dl Hct 36.9 L (42.0-52.0) % Plt Count 174 (130-400) K/uL BMP 01/23/25 01/24/25 13:05 03:21 Sodium 137 137 Potassium 4.0 3.8 Chloride 101 103 Carbon Dioxide 29 29 BUN 25 H 24 H Creatinine 1.33 1.20 Glucose 270 H 125 H Calcium 8.0 L 7.9 L Cardiac Enzymes 01/23/25 Range/Units 13:05 Total Creatine Kinase 23 L (30-223) U/L Liver Function 01/23/25 01/24/25 Range/Units 13:05 03:21 Total Bilirubin 0.7 0.6 (0.2-1.0) mg/dl AST 25 22 (13-39) U/L ALT 30 25 (7-52) U/L Alkaline Phosphatase 133 H 118 H (34-104) U/L Albumin 2.8 L 2.7 L (3.4-5.0) gm/dl Urine 01/23/25 Range/Units 15:01 Urine Color Yellow Urine Appearance Cloudy A (Clear) Urine pH 5.0 (4.5-7.5) Ur Specific [place] 1.015 (1.000-1.030) Urine Protein Trace H (Negative) Urine Glucose (UA) Negative (Negative)
[2025-01-24] MEDS: INFLUENZA VACC TS2025-26(65y+)/PF (IIV3) 0.5mL Syr IM ONE (14:08)
--- NOTE | 2025-01-24 14:42 | Fluoroscopy Report ---
FL video swallow CLINICAL HISTORY: h/o aspiration. TECHNIQUE: Video fluoroscopic evaluation of swallowing was performed in the AP and lateral projection s by the speech pathology staff. The patient is fed nectar-thick and thin liquid barium, a barium coa josefa wafer, and barium pudding. FLUOROSCOPY TIME: 2 minutes 17 seconds. COMPARISON: 01/28/2022 FINDINGS: There is aspiration with liquid. There is vallecular residual with all barium consistencies . IMPRESSION: Aspiration. ACT 112: Negative or not required by law. Electronically signed by: Esa Aguilar M.D. 01/24/2025 2:41 PM
--- NOTE | 2025-01-24 14:52 | Pharmacy Report ---
Pharmacy Glycemic Short Note 2 - Date of Service January 24, 2025 - Glycemic Short BSG Results (Last 24 hours): 01/23/25 01/24/25 01/24/25 21:03 03:21 08:08 Glucose 125 H POC Glucose 132 H 129 H 01/24/25 11:47 Glucose POC Glucose 251 H OUTPATIENT ANTIDIABETIC REGIMEN: * Insulin glargine 19 units every morning * HbA1c pending AM labs 01/24 ASSESSMENT: 01/24 * Lunch BSG trending upward, will tighten CR 01/23 * 89 year old male with T2DM, CKD III presents to hospital for increasing weakness and lethargy over past 6-8 weeks. * T2DM diet * Patient received 19 units of insulin glargine this morning, 01/23 prior to admission * Only glucose value so far of 270, high * Will initiate 10 units insulin glargine every morning and add Novolog sliding scale weight-based dose with a stress of 2 * Stressors: potential infection (cefepime) PLAN FOR INPATIENT GLYCEMIC CONTROL: * Basal insulin * Lantus 10 units SQ QAM * Bolus insulin * NovoLog per scale ACHS or Q6hrs while NPO * Goal Range: Low 110 mg/dL - High 140 mg/dL * Correction Factor: 30 mg/dL/unit * Nutritional / Prandial insulin per carb ratio of 1 unit per 9 grams CHO consumed
--- NOTE | 2025-01-24 17:25 | Communication Note ---
Date of Service: January 24, 2025 Updated patient's sister over the phone in detail. Understands and agrees with the plan.
[2025-01-24] MEDS: ZOLPIDEM TARTRATE 5 MG TAB PO PRN (20:34)
[2025-01-24] MEDS: LORazepam 1 MG TAB PO PRN (20:34)
[2025-01-25] MEDS: ACETAMINOPHEN 325 MG TAB PO PRN (07:44)
[2025-01-25 07:49] LABS: INR 2.8 (0.9-1.1); Prothrombin Time 27.7 Seconds (9.0-12.0)
[2025-01-25 08:21] LABS: Hematocrit (blood only) 34.5 % (42.0-52.0); Hemoglobin 11.3 g/dl (14.0-18.0); Mean Corpuscular Hemoglobin 28.1 pg (25.0-34.0); Mean Corpuscular Volume 85.8 fL (80.0-100.0); Platelet Count 216 K/uL (130-400); RDW Standard Deviation 50.2 fL (36.4-46.3); Red Blood Count 4.02 M/uL (4.70-6.10); White Blood Count 7.55 K/ul (4.8-10.8)
[2025-01-25 08:38] LABS: Anion Gap 7.0 (3-11); Blood Urea Nitrogen 28.0 mg/dl (6-23); Calcium 7.8 mg/dl (8.6-10.3); Carbon Dioxide 26.0 mmol/L (21-32); Chloride 103.0 mmol/L (98-107); Creatinine Clr Calc Pharmacy 48.0 ml/min; Glucose 112.0 mg/dl (70-99(Fasting)); Potassium 4.0 mmol/L (3.5-5.1); Sodium 136.0 mmol/L (136-145)
--- NOTE | 2025-01-25 08:38 | XRay Report ---
Clinical History: Hypoxia Technique: A frontal view of the chest was obtained Comparison is made to the prior examination dated 01/23/2025 Findings: There is mild patchy right upper lobe infiltrate, concerning for pneumonia. The heart size is within normal limits. No definite pneumothorax is seen. There are suspected small bilateral pleural effusions No fracture is noted. There is a left chest wall pacemaker device Impression: 1. Suspected right upper lobe bronchopneumonia 2. Small bilateral pleural effusions ACT 112: Positive. There are findings on this exam that require communication between the performing entity and the patient following Patient Test Result Information Act ([place] ACT 112) guidelines. Electronically signed by Vivek Cardenas 01-25-2025 08:37 AM
[2025-01-25] MEDS: DOXYCYCLINE HYCLATE 100 MG CAP PO SCH (09:26)
[2025-01-25] MEDS: FUROSEMIDE 40 MG TAB PO SCH (11:12)
--- NOTE | 2025-01-25 11:32 | Hospitalist Progress Note ---
Date of Service January 25, 2025 Assessment & Plan (1) Generalized weakness: (2) Lethargy: (3) Ambulatory dysfunction: (4) Pneumonia: (5) Catheter-associated urinary tract infection: (6) Berman catheter in place prior to arrival: (7) Supratherapeutic INR: Plan Patient is an 89y/o M with PMHx significant for multifactorial HFrEF with history of nonischemic cardiomyopathy, chronic CAD, PAD previously requiring multiple interventions, paroxysmal atrial fibrillation anticoagulated on Coumadin, history of cardiac catheterization in 2014 demonstrating 80% stenosis of the proximal portion of a small to moderate-sized PDA branch at the distal RCA for which medical management was recommended, SSS s/p permanent pacemaker implantation in 2022, chronic dizziness with history of autonomic dysfunction, ascending colon adenocarcinoma s/p right hemicolectomy in 2017, DMII, diabetic polyneuropathy with history of diabetic foot ulcers and osteomyelitis s/p left 4th/5th and right 2nd toe amputation, history of urinary retention with incomplete bladder emptying, bilateral exudative age-related macular degeneration, MAGI and CKD stage III who presented to the ED via EMS with his caregiver due to increasing weakness and lethargy over the past 6-8 weeks. Generalized weakness Deconditioning Ambulatory dysfunction Mostly wheelchair bound at baseline s/p fall with femoral fracture in 2022 Sustained multiple falls during transfers over the past several weeks PT OT, fall precautions PT recommends rehab placement Rhinovirus infection Possible multifocal pneumonia Hypoxia secondary to above Chronic dysphagia--on permissive aspiration per Caregiver --CXR:reticular opacity at the right mid lung and left lung base -- BioFire positive for rhinovirus --Blood cultures negative to date -- Nasal MRSA negative -- Sputum cultures pending Empirically on IV cefepime, added Doxy On hypertonic saline nebs Continue aspiration precautions Resume Lasix to help with volume status Continue supplemental oxygen as needed If remains febrile, will consider broadening antibiotics CAUTI--POA History of urinary retention with chronic Berman catheter use Urine culture growing E. coli Urinary catheter exchanged while in ED Continue IV cefepime Stage III pressure ulcer of buttock POA Pressure ulcer of left foot, stage III POA Follows with [facility] wound clinic Continue wound care Chronic dizziness with history of autonomic dysfunction Continue midodrine Moderate-severe oropharyngeal dysphagia with history of aspiration Fluoro swallow study, 01/2022: diffusely incomplete swallowing mechanics, weak pharyngeal constriction and poor tongue base retraction, tono aspiration MACHINIST JOB SETTER previously recommending easy to chew diet, thin liquids ( add extra sauce/gravy to foods, assistance with cutting food into smaller pieces) --Video swallow: There is aspiration with liquid. There is vallecular residual with all barium consistencies. Continue Aspiration precautions On permissive aspiration Continue diet as recommended by speech therapy Concern for possible LAZARUS Patient's caregiver reported witnessed apneic events during sleep over the past week Nocturnal oximetry study as able Needs polysomnography as outpatient Paroxysmal atrial fibrillation anticoagulated on Coumadin Supratherapeutic INR--resolved Resume Coumadin Monitor INR 3.6 >>2.8 Continue amiodarone, metoprolol succinate 25 mg daily Elevated troponin Patient denies any anginal symptoms No significant rise in troponin EKG shows no signs of acute ischemia Monitor SSS s/p permanent pacemaker placement in 2022 Multifactorial HFrEF with history of nonischemic cardiomyopathy TTE, 01/2021: mildly reduced EF = 45% (stable), grade I DD, severely enlarged LA, trace loculated posterior pericardial effusion (stable; no evidence of tamponade physiology) Lasix resumed Monitor volume status CAD History of cardiac catheterization in 2014 demonstrating 80% stenosis of the proximal portion of a small to moderate-sized PDA branch at the distal RCA Continue Plavix, metoprolol Mild Hypocalcemia Normal vitamin D levels Continue vitamin, calcium supplements Ascending colon adenocarcinoma s/p right hemicolectomy in 2018 Did not require adjuvant chemotherapy, remains under observation Follows with [facility] oncology, Dr. Eng DM II HbA1c 8.1 Continue insulin per protocol Monitor blood glucose levels Appreciate glycemic pharmacy consult for assistance with insulin management Diabetic polyneuropathy Continue gabapentin CKD stage III Baseline creatinine 1.1-1.4 Monitor renal function Avoid nephrotoxic agents as able DVT Px: Coumadin CODE STATUS Full code Disposition Rehab as able Admission and Anticipated Discharge Date Admission Date: January 23, 2025 Subjective Patient is seen and examined at bedside Febrile today Subjectively feels about the same as yesterday Prefers to have suppository to help with constipation Hypoxia requiring minimal supplemental oxygen Still has minimal cough with expectoration Denies any chest pain, dyspnea, nausea, vomiting, abdominal pain No other complaints Review of Systems Review of Systems: All systems reviewed & are unremarkable except as noted in Subjective Physical Exam Physical Exam: Physical Exam: Vitals signs as noted above General Appearance:Moderately built and nourished, elderly, chronic ill appearing, no apparent distress Head: normocephalic, Atraumatic Eyes: normal inspection, EOMI Neck: supple, Trachea midline Respiratory/Chest: Normal breath sounds, CTA, No accessory muscle use Cardiovascular: S1, S2, No murmur Abdomen/GI:Soft, Non tender, Bowel sounds present Extremities/Musculoskeletal:normal inspection, no edema Neurologic/Psych:AAOX3, grossly no focal neurological deficits Skin: normal color, warm, +skin erosion sacral region, L foot dressing Results & Data Results & Data Vital Signs (Past 12 Hours) Vital Signs Temp Pulse Pulse Resp BP Pulse Ox O2 Del Method 01/25/25 07:49 88 18 92 Nasal Cannula 01/25/25 07:29 38.3 C H 86 16 148/68 H 92 Nasal Cannula 01/25/25 07:18 75 01/25/25 03:35 37.1 C 64 18 155/77 H 90 Room Air 01/25/25 00:15 36.7 C 63 18 116/66 93 Room Air O2 Flow Rate 01/25/25 07:49 1.5 01/25/25 07:29 1.5 01/25/25 07:18 01/25/25 03:35 01/25/25 00:15 Laboratory Results Short CBC 01/25/25 Range/Units 07:59 WBC 7.55 (4.8-10.8) K/ul Hgb 11.3 L (14.0-18.0) g/dl Hct 34.5 L (42.0-52.0) % Plt Count 216 (130-400) K/uL BMP 01/25/25 07:59 Sodium 136 Potassium 4.0 Chloride 103 Carbon Dioxide 26 BUN 28 H Creatinine 1.18 Glucose 112 H Calcium 7.8 L
[2025-01-25] MEDS: WARFARIN SOD 1 MG TAB PO SCH (16:33)
[2025-01-26 07:30] LABS: Hematocrit (blood only) 33.0 % (42.0-52.0); Hemoglobin 10.8 g/dl (14.0-18.0); Mean Corpuscular Hemoglobin 27.8 pg (25.0-34.0); Mean Corpuscular Volume 84.8 fL (80.0-100.0); Platelet Count 228 K/uL (130-400); RDW Standard Deviation 49.3 fL (36.4-46.3); Red Blood Count 3.89 M/uL (4.70-6.10); White Blood Count 6.72 K/ul (4.8-10.8)
[2025-01-26 07:42] LABS: Anion Gap 8.0 (3-11); Calcium 7.7 mg/dl (8.6-10.3); Carbon Dioxide 26.0 mmol/L (21-32); Chloride 101.0 mmol/L (98-107); Potassium 3.6 mmol/L (3.5-5.1); Sodium 135.0 mmol/L (136-145)
[2025-01-26 07:47] LABS: Blood Urea Nitrogen 30.0 mg/dl (6-23); Creatinine Clr Calc Pharmacy 46.4 ml/min; Glucose 136.0 mg/dl (70-99(Fasting))
[2025-01-26 08:11] LABS: INR 1.7 (0.9-1.1); Prothrombin Time 17.7 Seconds (9.0-12.0)
[2025-01-26] MEDS: LANTUS PER UNIT CHARGE SQ SCH (09:42)
--- NOTE | 2025-01-26 11:40 | Hospitalist Progress Note ---
Date of Service January 26, 2025 Assessment & Plan (1) Generalized weakness: (2) Lethargy: (3) Ambulatory dysfunction: (4) Pneumonia: (5) Catheter-associated urinary tract infection: (6) Berman catheter in place prior to arrival: (7) Supratherapeutic INR: Plan Patient is an 89y/o M with PMHx significant for multifactorial HFrEF with history of nonischemic cardiomyopathy, chronic CAD, PAD previously requiring multiple interventions, paroxysmal atrial fibrillation anticoagulated on Coumadin, history of cardiac catheterization in 2014 demonstrating 80% stenosis of the proximal portion of a small to moderate-sized PDA branch at the distal RCA for which medical management was recommended, SSS s/p permanent pacemaker implantation in 2022, chronic dizziness with history of autonomic dysfunction, ascending colon adenocarcinoma s/p right hemicolectomy in 2017, DMII, diabetic polyneuropathy with history of diabetic foot ulcers and osteomyelitis s/p left 4th/5th and right 2nd toe amputation, history of urinary retention with incomplete bladder emptying, bilateral exudative age-related macular degeneration, MAGI and CKD stage III who presented to the ED via EMS with his caregiver due to increasing weakness and lethargy over the past 6-8 weeks. Generalized weakness Deconditioning Ambulatory dysfunction Mostly wheelchair bound at baseline s/p fall with femoral fracture in 2022 Sustained multiple falls during transfers over the past several weeks PT OT, fall precautions PT recommends rehab placement Plan to discharge to rehab facility in 1 to 2 days Rhinovirus infection Possible multifocal pneumonia Hypoxia secondary to above Chronic dysphagia--on permissive aspiration per Caregiver --CXR:reticular opacity at the right mid lung and left lung base -- BioFire positive for rhinovirus --Blood cultures negative to date -- Nasal MRSA negative Empirically on IV cefepime, added Doxy On hypertonic saline nebs Continue aspiration precautions Resume Lasix to help with volume status Weaned off of supplemental oxygen Slowly improving CAUTI--POA History of urinary retention with chronic Berman catheter use Urine culture growing E. coli Urinary catheter exchanged while in ED Continue IV cefepime Stage III pressure ulcer of buttock POA Pressure ulcer of left foot, stage III POA Follows with [facility] wound clinic Continue wound care Chronic dizziness with history of autonomic dysfunction Continue midodrine Moderate-severe oropharyngeal dysphagia with history of aspiration Fluoro swallow study, 01/2022: diffusely incomplete swallowing mechanics, weak pharyngeal constriction and poor tongue base retraction, tono aspiration REPAIR DEPARTMENT MANAGER previously recommending easy to chew diet, thin liquids ( add extra sauce/gravy to foods, assistance with cutting food into smaller pieces) --Video swallow: There is aspiration with liquid. There is vallecular residual with all barium consistencies. Continue Aspiration precautions On permissive aspiration Continue diet as recommended by speech therapy Concern for possible LAZARUS Patient's caregiver reported witnessed apneic events during sleep over the past week Nocturnal oximetry study as able Needs polysomnography as outpatient Paroxysmal atrial fibrillation anticoagulated on Coumadin Supratherapeutic INR--resolved Monitor INR 3.6 >>2.8>1.7 Continue amiodarone, metoprolol succinate 25 mg daily Adjust Coumadin dose as needed Monitor INR Elevated troponin Patient denies any anginal symptoms No significant rise in troponin EKG shows no signs of acute ischemia Monitor SSS s/p permanent pacemaker placement in 2022 Multifactorial HFrEF with history of nonischemic cardiomyopathy TTE, 01/2021: mildly reduced EF = 45% (stable), grade I DD, severely enlarged LA, trace loculated posterior pericardial effusion (stable; no evidence of tamponade physiology) Continue home Lasix Monitor volume status CAD History of cardiac catheterization in 2014 demonstrating 80% stenosis of the proximal portion of a small to moderate-sized PDA branch at the distal RCA Continue Plavix, metoprolol Mild Hypocalcemia Normal vitamin D levels Continue vitamin, calcium supplements Ascending colon adenocarcinoma s/p right hemicolectomy in 2018 Did not require adjuvant chemotherapy, remains under observation Follows with [facility] oncology, Dr. Eng DM II HbA1c 8.1 Continue insulin per protocol Monitor blood glucose levels Appreciate glycemic pharmacy consult for assistance with insulin management Diabetic polyneuropathy Continue gabapentin CKD stage III Baseline creatinine 1.1-1.4 Monitor renal function Avoid nephrotoxic agents as able DVT Px: Coumadin CODE STATUS Full code Disposition Rehab in 1 to 2 days Admission and Anticipated Discharge Date Admission Date: January 23, 2025 Subjective Patient is seen and examined at bedside Constipation improved Saturating well on room air today Still has some cough with expectoration Generalized weakness improving Denies any chest pain, dyspnea, nausea, vomiting, abdominal pain Review of Systems Review of Systems: All systems reviewed & are unremarkable except as noted in Subjective Physical Exam Physical Exam: Physical Exam: Vitals signs as noted above General Appearance:Moderately built and nourished, elderly, chronic ill appearing, no apparent distress Head: normocephalic, Atraumatic Eyes: normal inspection, EOMI Neck: supple, Trachea midline Respiratory/Chest: Normal breath sounds, CTA, No accessory muscle use Cardiovascular: S1, S2, No murmur Abdomen/GI:Soft, Non tender, Bowel sounds present Extremities/Musculoskeletal:normal inspection, no edema Neurologic/Psych:AAOX3, grossly no focal neurological deficits Skin: normal color, warm, +skin erosion sacral region, L foot dressing Results & Data Results & Data Vital Signs (Past 12 Hours) Vital Signs Temp Pulse Pulse Resp BP BP Pulse Ox 01/26/25 11:09 36.6 C 62 18 116/70 93 01/26/25 10:27 01/26/25 07:23 71 01/26/25 07:16 71 15 90 01/26/25 06:38 36.6 C 76 20 110/63 92 01/26/25 03:28 36.6 C 74 20 154/83 H 94 01/25/25 23:50 36.7 C 66 20 131/68 94 O2 Del Method 01/26/25 11:09 Room Air 01/26/25 10:27 Room Air 01/26/25 07:23 01/26/25 07:16 Room Air 01/26/25 06:38 Room Air 01/26/25 03:28 Room Air 01/25/25 23:50 Room Air Laboratory Results Short CBC 01/26/25 Range/Units 06:50 WBC 6.72 (4.8-10.8) K/ul Hgb 10.8 L (14.0-18.0) g/dl Hct 33.0 L (42.0-52.0) % Plt Count 228 (130-400) K/uL BMP 01/26/25 06:50 Sodium 135 L Potassium 3.6 Chloride 101 Carbon Dioxide 26 BUN 30 H Creatinine 1.22 Glucose 136 H Calcium 7.7 L
[2025-01-26] MEDS: POLYETHYLENE (MIRALAX) 17 GM PACK PO PRN (13:24)
[2025-01-26] MEDS: cefTRIAXone SODIUM 2,000 MG/50 ML BAG IV SCH (14:39)
[2025-01-26] MEDS: WARFARIN SOD 2 MG TAB PO SCH (17:03)
[2025-01-27 09:37] LABS: INR 1.5 (0.9-1.1); Prothrombin Time 15.7 Seconds (9.0-12.0)
--- NOTE | 2025-01-27 11:55 | Hospitalist Progress Note ---
Date of Service January 27, 2025 Assessment & Plan (1) Generalized weakness: (2) Lethargy: (3) Ambulatory dysfunction: (4) Pneumonia: (5) Catheter-associated urinary tract infection: (6) Berman catheter in place prior to arrival: (7) Supratherapeutic INR: Plan Patient is an 89y/o M with PMHx significant for multifactorial HFrEF with history of nonischemic cardiomyopathy, chronic CAD, PAD previously requiring multiple interventions, paroxysmal atrial fibrillation anticoagulated on Coumadin, history of cardiac catheterization in 2014 demonstrating 80% stenosis of the proximal portion of a small to moderate-sized PDA branch at the distal RCA for which medical management was recommended, SSS s/p permanent pacemaker implantation in 2022, chronic dizziness with history of autonomic dysfunction, ascending colon adenocarcinoma s/p right hemicolectomy in 2017, DMII, diabetic polyneuropathy with history of diabetic foot ulcers and osteomyelitis s/p left 4th/5th and right 2nd toe amputation, history of urinary retention with incomplete bladder emptying, bilateral exudative age-related macular degeneration, MAGI and CKD stage III who presented to the ED via EMS with his caregiver due to increasing weakness and lethargy over the past 6-8 weeks. Generalized weakness Deconditioning Ambulatory dysfunction Mostly wheelchair bound at baseline s/p fall with femoral fracture in 2022 Sustained multiple falls during transfers over the past several weeks PT OT, fall precautions PT recommends rehab placement Plan to discharge to rehab facility when accepted Case management to help with discharge planning Rhinovirus infection Possible multifocal pneumonia Hypoxia secondary to above Chronic dysphagia--on permissive aspiration per Caregiver --CXR:reticular opacity at the right mid lung and left lung base -- BioFire positive for rhinovirus --Blood cultures negative to date -- Nasal MRSA negative Empirically on IV cefepime, added Doxy On hypertonic saline nebs Continue aspiration precautions Resumed Lasix to help with volume status Wean off of supplemental oxygen as able CAUTI--POA History of urinary retention with chronic Berman catheter use Urine culture growing E. coli Urinary catheter exchanged while in ED Continue IV cefepime>>Transitioned to ceftriaxone Stage III pressure ulcer of buttock POA Pressure ulcer of left foot, stage III POA Follows with [facility] wound clinic Continue wound care Chronic dizziness with history of autonomic dysfunction Continue midodrine Moderate-severe oropharyngeal dysphagia with history of aspiration Fluoro swallow study, 01/2022: diffusely incomplete swallowing mechanics, weak pharyngeal constriction and poor tongue base retraction, tono aspiration [employer] previously recommending easy to chew diet, thin liquids ( add extra sauce/gravy to foods, assistance with cutting food into smaller pieces) --Video swallow: There is aspiration with liquid. There is vallecular residual with all barium consistencies. Continue Aspiration precautions On permissive aspiration Continue diet as recommended by speech therapy Concern for possible LAZARUS Patient's caregiver reported witnessed apneic events during sleep over the past week Nocturnal oximetry study as able Needs polysomnography as outpatient Paroxysmal atrial fibrillation anticoagulated on Coumadin Supratherapeutic INR--resolved Monitor INR 3.6 >>2.8>1.>1.57 Continue amiodarone, metoprolol succinate 25 mg daily Adjust Coumadin dose as needed Monitor INR Increase Coumadin to 3 mg daily Elevated troponin Patient denies any anginal symptoms No significant rise in troponin EKG shows no signs of acute ischemia Monitor SSS s/p permanent pacemaker placement in 2022 Multifactorial HFrEF with history of nonischemic cardiomyopathy TTE, 01/2021: mildly reduced EF = 45% (stable), grade I DD, severely enlarged LA, trace loculated posterior pericardial effusion (stable; no evidence of tamponade physiology) Continue home Lasix Monitor volume status CAD History of cardiac catheterization in 2014 demonstrating 80% stenosis of the proximal portion of a small to moderate-sized PDA branch at the distal RCA Continue Plavix, metoprolol Mild Hypocalcemia Normal vitamin D levels Continue vitamin, calcium supplements Ascending colon adenocarcinoma s/p right hemicolectomy in 2018 Did not require adjuvant chemotherapy, remains under observation Follows with [facility] oncology, Dr. Eng DM II HbA1c 8.1 Continue insulin per protocol Monitor blood glucose levels Appreciate glycemic pharmacy consult for assistance with insulin management Diabetic polyneuropathy Continue gabapentin CKD stage III Baseline creatinine 1.1-1.4 Monitor renal function Avoid nephrotoxic agents as able DVT Px: Coumadin CODE STATUS Full code Disposition Rehab when accepted Admission and Anticipated Discharge Date Admission Date: January 23, 2025 Subjective Patient is seen and examined at bedside States feeling tired No other complaints today Cough much improved Denies any chest pain, dyspnea, nausea, vomiting, abdominal pain Waiting for rehab placement Review of Systems Review of Systems: All systems reviewed & are unremarkable except as noted in Subjective Physical Exam Physical Exam: Physical Exam: Vitals signs as noted above General Appearance:Moderately built and nourished, elderly, chronic ill appearing, no apparent distress Head: normocephalic, Atraumatic Eyes: normal inspection, EOMI Neck: supple, Trachea midline Respiratory/Chest: Normal breath sounds, CTA, No accessory muscle use Cardiovascular: S1, S2, No murmur Abdomen/GI:Soft, Non tender, Bowel sounds present Extremities/Musculoskeletal:normal inspection, no edema Neurologic/Psych:AAOX3, grossly no focal neurological deficits Skin: normal color, warm, +skin erosion sacral region, L foot dressing Results & Data Results & Data Vital Signs (Past 12 Hours) Vital Signs Temp Pulse Pulse Resp BP BP Pulse Ox 01/27/25 11:21 36.6 C 79 18 152/81 H 95 01/27/25 11:21 01/27/25 07:42 37.0 C 71 18 135/67 92 01/27/25 07:31 75 16 91 01/27/25 07:15 72 01/27/25 04:31 65 01/27/25 03:51 37.3 C 69 18 120/66 92 01/27/25 00:12 36.9 C 65 20 125/67 93 O2 Del Method O2 Flow Rate 01/27/25 11:21 Nasal Cannula 1 01/27/25 11:21 Nasal Cannula 1 01/27/25 07:42 Room Air 01/27/25 07:31 Room Air 01/27/25 07:15 01/27/25 04:31 01/27/25 03:51 Room Air 01/27/25 00:12 Room Air
--- NOTE | 2025-01-27 13:40 | Pharmacy Report ---
Pharmacy Glycemic Short Note 2 - Date of Service January 27, 2025 - Glycemic Short BSG Results (Last 24 hours): 01/26/25 01/26/25 01/27/25 17:19 19:56 07:55 POC Glucose 177 H 183 H 123 H 01/27/25 11:46 POC Glucose 155 H OUTPATIENT ANTIDIABETIC REGIMEN: * Insulin glargine 19 units every morning * HbA1c pending AM labs 01/24 ASSESSMENT: 01/27: * Sujit received a total of 33 units of insulin yesterday (12 units were basal and 11 units were bolus). BSGs were [phone]/dL. * Fasting BSG was 123mg/dL this morning. Will continue current bolus/basal insulin regimens without change. 01/24 * Lunch BSG trending upward, will tighten CR 01/23 * 89 year old male with T2DM, CKD III presents to hospital for increasing weakness and lethargy over past 6-8 weeks. * T2DM diet * Patient received 19 units of insulin glargine this morning, 01/23 prior to admission * Only glucose value so far of 270, high * Will initiate 10 units insulin glargine every morning and add Novolog sliding scale weight-based dose with a stress of 2 * Stressors: potential infection (cefepime) PLAN FOR INPATIENT GLYCEMIC CONTROL: * Basal insulin * Lantus 12 units SQ QAM * Bolus insulin * NovoLog per scale ACHS or Q6hrs while NPO * Goal Range: Low 110 mg/dL - High 140 mg/dL * Correction Factor: 30 mg/dL/unit * Nutritional / Prandial insulin per carb ratio of 1 unit per 9 grams CHO consumed
[2025-01-27] MEDS: WARFARIN SOD 3 MG TAB PO SCH (16:43)
[2025-01-28 07:07] LABS: Hematocrit (blood only) 35.6 % (42.0-52.0); Hemoglobin 11.6 g/dl (14.0-18.0); Mean Corpuscular Hemoglobin 28.0 pg (25.0-34.0); Mean Corpuscular Volume 85.8 fL (80.0-100.0); Platelet Count 317 K/uL (130-400); RDW Standard Deviation 50.1 fL (36.4-46.3); Red Blood Count 4.15 M/uL (4.70-6.10); White Blood Count 6.68 K/ul (4.8-10.8)
[2025-01-28 07:29] LABS: Anion Gap 13.0 (3-11); Blood Urea Nitrogen 29.0 mg/dl (6-23); Calcium 8.0 mg/dl (8.6-10.3); Carbon Dioxide 27.0 mmol/L (21-32); Chloride 97.0 mmol/L (98-107); Creatinine Clr Calc Pharmacy 47.6 ml/min; Glucose 102.0 mg/dl (70-99(Fasting)); Potassium 3.5 mmol/L (3.5-5.1); Sodium 137.0 mmol/L (136-145)
[2025-01-28 08:46] LABS: INR 1.8 (0.9-1.1); Prothrombin Time 18.7 Seconds (9.0-12.0)
--- NOTE | 2025-01-28 10:44 | Hospitalist Progress Note ---
Date of Service January 28, 2025 Assessment & Plan (1) Generalized weakness: (2) Lethargy: (3) Ambulatory dysfunction: (4) Pneumonia: (5) Catheter-associated urinary tract infection: (6) Berman catheter in place prior to arrival: (7) Supratherapeutic INR: Plan Patient is an 89y/o M with PMHx significant for multifactorial HFrEF with history of nonischemic cardiomyopathy, chronic CAD, PAD previously requiring multiple interventions, paroxysmal atrial fibrillation anticoagulated on Coumadin, history of cardiac catheterization in 2014 demonstrating 80% stenosis of the proximal portion of a small to moderate-sized PDA branch at the distal RCA for which medical management was recommended, SSS s/p permanent pacemaker implantation in 2022, chronic dizziness with history of autonomic dysfunction, ascending colon adenocarcinoma s/p right hemicolectomy in 2017, DMII, diabetic polyneuropathy with history of diabetic foot ulcers and osteomyelitis s/p left 4th/5th and right 2nd toe amputation, history of urinary retention with incomplete bladder emptying, bilateral exudative age-related macular degeneration, MAGI and CKD stage III who presented to the ED via EMS with his caregiver due to increasing weakness and lethargy over the past 6-8 weeks. Generalized weakness Deconditioning Ambulatory dysfunction Mostly wheelchair bound at baseline s/p fall with femoral fracture in 2022 Sustained multiple falls during transfers over the past several weeks PT OT, fall precautions PT recommends rehab placement Plan to discharge to rehab facility today Rhinovirus infection Possible multifocal pneumonia Hypoxia secondary to above Chronic dysphagia--on permissive aspiration per Caregiver --CXR:reticular opacity at the right mid lung and left lung base -- BioFire positive for rhinovirus --Blood cultures negative to date -- Nasal MRSA negative Empirically on IV cefepime, added Doxy>> transition to oral antibiotics to complete the course on discharge On hypertonic saline nebs Continue aspiration precautions Resumed Lasix to help with volume status Wean off of supplemental oxygen as able Cultures remain negative CAUTI--POA History of urinary retention with chronic Berman catheter use Urine culture growing E. coli Urinary catheter exchanged while in ED Continue IV cefepime>>Transitioned to ceftriaxone Stage III pressure ulcer of buttock POA Pressure ulcer of left foot, stage III POA Follows with [facility] wound clinic Continue wound care Chronic dizziness with history of autonomic dysfunction Continue midodrine Moderate-severe oropharyngeal dysphagia with history of aspiration Fluoro swallow study, 01/2022: diffusely incomplete swallowing mechanics, weak pharyngeal constriction and poor tongue base retraction, tono aspiration [employer] previously recommending easy to chew diet, thin liquids ( add extra sauce/gravy to foods, assistance with cutting food into smaller pieces) --Video swallow: There is aspiration with liquid. There is vallecular residual with all barium consistencies. Continue Aspiration precautions On permissive aspiration Continue diet as recommended by speech therapy Concern for possible LAZARUS Patient's caregiver reported witnessed apneic events during sleep over the past week Nocturnal oximetry study as able Needs polysomnography as outpatient Paroxysmal atrial fibrillation anticoagulated on Coumadin Supratherapeutic INR--resolved Monitor INR 3.6 >>2.8>1.>1.57>1.8 Continue amiodarone, metoprolol succinate 25 mg daily Adjust Coumadin dose as needed Monitor INR Will give Coumadin 3 mg today Elevated troponin Patient denies any anginal symptoms No significant rise in troponin EKG shows no signs of acute ischemia Monitor SSS s/p permanent pacemaker placement in 2022 Multifactorial HFrEF with history of nonischemic cardiomyopathy TTE, 01/2021: mildly reduced EF = 45% (stable), grade I DD, severely enlarged LA, trace loculated posterior pericardial effusion (stable; no evidence of tamponade physiology) Continue home Lasix Monitor volume status CAD History of cardiac catheterization in 2014 demonstrating 80% stenosis of the proximal portion of a small to moderate-sized PDA branch at the distal RCA Continue Plavix, metoprolol Mild Hypocalcemia Normal vitamin D levels Continue vitamin, calcium supplements Ascending colon adenocarcinoma s/p right hemicolectomy in 2018 Did not require adjuvant chemotherapy, remains under observation Follows with [facility] oncology, Dr. Eng DM II HbA1c 8.1 Continue insulin per protocol Monitor blood glucose levels Appreciate glycemic pharmacy consult for assistance with insulin management Diabetic polyneuropathy Continue gabapentin CKD stage III Baseline creatinine 1.1-1.4 Monitor renal function Avoid nephrotoxic agents as able DVT Px: Coumadin CODE STATUS Full code Disposition Rehab Admission and Anticipated Discharge Date Admission Date: January 23, 2025 Subjective Patient is seen and examined at bedside No new complaints Requiring minimal supplemental oxygen to maintain saturation Denies any significant cough Denies any chest pain, dyspnea, nausea, vomiting, abdominal pain Plan to discharge to rehab facility today Review of Systems Review of Systems: All systems reviewed & are unremarkable except as noted in Subjective Physical Exam Physical Exam: Physical Exam: Vitals signs as noted above General Appearance:Moderately built and nourished, elderly, chronic ill appearing, no apparent distress Head: normocephalic, Atraumatic Eyes: normal inspection, EOMI Neck: supple, Trachea midline Respiratory/Chest: Normal breath sounds, CTA, No accessory muscle use Cardiovascular: S1, S2, No murmur Abdomen/GI:Soft, Non tender, Bowel sounds present Extremities/Musculoskeletal:normal inspection, no edema Neurologic/Psych:AAOX3, grossly no focal neurological deficits Skin: normal color, warm, +skin erosion sacral region, L foot dressing Results & Data Results & Data Vital Signs (Past 12 Hours) Vital Signs Temp Pulse Resp BP Pulse Ox O2 Del Method 01/28/25 08:30 36.7 C 67 14 122/67 91 Room Air 01/28/25 07:33 74 16 85 L Room Air 01/28/25 03:30 36.6 C 67 18 134/72 93 Room Air Laboratory Results Short CBC 01/28/25 Range/Units 05:25 WBC 6.68 (4.8-10.8) K/ul Hgb 11.6 L (14.0-18.0) g/dl Hct 35.6 L (42.0-52.0) % Plt Count 317 (130-400) K/uL BMP 01/28/25 05:25 Sodium 137 Potassium 3.5 Chloride 97 L Carbon Dioxide 27 BUN 29 H Creatinine 1.19 Glucose 102 H Calcium 8.0 L
[2025-01-28 12:16] VITALS: PULSE 61; RESP 18; TEMP 97.5; O2SAT 97
--- NOTE | 2025-01-28 12:57 | Discharge Summary ---
Date of Service January 28, 2025 Admission HPI Per Admitting Provider Patient is an 89-year-old male with past medical history significant for multifactorial HFrEF with history of nonischemic cardiomyopathy, chronic CAD, PAD previously requiring multiple interventions, paroxysmal atrial fibrillation anticoagulated on Coumadin, history of cardiac catheterization in 2014 demonstrating 80% stenosis of the proximal portion of a small to moderate-sized PDA branch at the distal RCA for which medical management was recommended, SSS s/p permanent pacemaker implantation in 2022, chronic dizziness with history of autonomic dysfunction, ascending colon adenocarcinoma s/p right hemicolectomy in 2018, DMII, diabetic polyneuropathy with history of diabetic foot ulcers and osteomyelitis s/p left 5th toe amputation, history of urinary retention with incomplete bladder emptying, bilateral exudative age-related macular degeneration, MAGI and CKD stage III who presented to the ED via EMS with his caregiver due to increasing weakness and lethargy over the past 6-8 weeks. History obtained from the patient, patient's caregiver at bedside, discussion with ED provider and associated chart review. Patient seen at bedside in ED with Dr. Hernandez. Increased weakness and lethargy over the past 6-8 weeks. Mostly wheelchair-bound at baseline, previously pivot for transfers. Increasing difficulty with transfers over the past several weeks. Has sustained multiple falls during transfers as his "legs give out." Previously treated for acute sinusitis last month with doxycycline and prednisone. Had a wet sounding cough at that time which initially improved but has now returned over the past week. No reported fevers. Denies any SOB. Has chronic Berman catheter. History of urinary retention. Caregiver has noticed his urine is darker and malodorous recently. Patient did initially seem somewhat confused this morning, was mixing up times and dates. This seems to have improved since arrival to ED. 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 Worked at [employer] for over 30 years. Admission Exam Per Admitting Provider VS noted and reviewed oriented x 2-3 , not in distress, speaks in sentences with no effort nor accessory muscle use, appears weak, frail normal rate, regular rhythm, no murmurs mild rhonchi at the bases, no wheezes non distended, soft, nontender back- (+) superficial skin erosions with some erythema over the sacral area R side (appears better compared to photos taken from wound care [place] 01/01) no bipedal edema, erythema, warmth L foot: dressing in place, no bleeding/discharge, no surrounding erythema/warmth/tenderness no neuro deficits Principal Diagnosis Rhinovirus infection Multifocal pneumonia Complicated urinary tract infection Generalized weakness/deconditioning Stage III pressure ulcer of buttock POA Pressure ulcer of left foot, stage III POA Chronic dysphagia Paroxysmal atrial fibrillation on Coumadin Discharge Data Allergies Allergy/AdvReac Type Severity Reaction Status Date / Time sildenafil Allergy Severe Face/head Verified 01/01/25 13:03 swelling ampicillin Allergy Mild Rash Verified 01/01/25 13:03 Macrolide Antibiotics Allergy Unknown Per records Verified 01/01/25 13:03 nitrofurantoin AdvReac Intermediate Diarrhea Verified 01/01/25 13:03 VASODILATORS Allergy Severe "Peripheral Uncoded 01/01/25 13:03 dilator", face/head swelling Consultations 01/23/25 15:49 ED Decision to Admit Stat Procedures Performed Laboratory Results WBC 6.68 K/ul (4.8-10.8) 01/28/25 05:25 RBC 4.15 M/uL (4.70-6.10) L 01/28/25 05:25 Hgb 11.6 g/dl (14.0-18.0) L 01/28/25 05:25 Hct 35.6 % (42.0-52.0) L 01/28/25 05:25 MCV 85.8 fL (80.0-100.0) 01/28/25 05:25 MCH 28.0 pg (25.0-34.0) 01/28/25 05:25 MCHC 32.6 g/dL (32.0-36.0) 01/28/25 05:25 RDW Std Deviation 50.1 fL (36.4-46.3) H 01/28/25 05:25 RDW Coeff of Gabriela 15.9 % (11.5-14.5) H 01/28/25 05:25 Plt Count 317 K/uL (130-400) 01/28/25 05:25 MPV 9.3 fL (9.4-12.4) L 01/28/25 05:25 Immature Gran % (Auto) 0.9 % 01/24/25 03:21 Neut % (Auto) 67.2 % 01/24/25 03:21 Lymph % (Auto) 18.1 % 01/24/25 03:21 [place] % (Auto) 9.4 % 01/24/25 03:21 Eos % (Auto) 4.0 % 01/24/25 03:21 Baso % (Auto) 0.4 % 01/24/25 03:21 Neut # (Auto) 4.97 K/uL (1.40-6.50) 01/24/25 03:21 Lymph # (Auto) 1.34 K/uL (1.20-3.40) 01/24/25 03:21 [place] # (Auto) 0.70 K/uL (0.11-0.59) H 01/24/25 03:21 Eos # (Auto) 0.30 K/uL (0.00-0.50) 01/24/25 03:21 Baso # (Auto) 0.03 K/uL (0.00-0.20) 01/24/25 03:21 Immature Gran # (Auto) 0.07 K/uL (0.01-0.20) 01/24/25 03:21 PT 18.7 Seconds (9.0-12.0) H 01/28/25 08:01 INR 1.8 (0.9-1.1) H 01/28/25 08:01 APTT 51 Seconds (21-31) H 01/23/25 13:05 PTT Ratio 1.9 01/23/25 13:05 VBG pH 7.42 (7.36-7.41) H 01/23/25 15:42 VBG pCO2 49 mmHg (38-50) 01/23/25 15:42 VBG pO2 27 mmHg 01/23/25 15:42 VBG HCO3 32 mmol/L 01/23/25 15:42 VBG O2 Saturation < 60.0 % 01/23/25 15:42 VBG Base Excess 6.1 mEq/L 01/23/25 15:42 Sodium 137 mmol/L (136-145) 01/28/25 05:25 Potassium 3.5 mmol/L (3.5-5.1) 01/28/25 05:25 Chloride 97 mmol/L (98-107) L 01/28/25 05:25 Carbon Dioxide 27 mmol/L (21-32) 01/28/25 05:25 Anion Gap 13 (3-11) H 01/28/25 05:25 BUN 29 mg/dl (6-23) H 01/28/25 05:25 Creatinine 1.19 mg/dl (0.6-1.4) 01/28/25 05:25 Est Cr Clr Drug Dosing 47.6 ml/min 01/28/25 05:25 eGFR 58.39 01/28/25 05:25 BUN/Creatinine Ratio 24.4 (10-20) H 01/28/25 05:25 Glucose 102 mg/dl (70-99(Fasting)) H 01/28/25 05:25 POC Glucose 149 mg/dl (70-99) H 01/28/25 11:29 Estimat Average Glucose 186 mg/dl 01/24/25 03:21 Hemoglobin A1c 8.1 % (4.5-5.6) H 01/24/25 03:21 Calcium 8.0 mg/dl (8.6-10.3) L 01/28/25 05:25 Ionized Calcium 1.08 mmol/L (1.12-1.32) L 01/23/25 21:13 Magnesium 2.0 mg/dl (1.7-2.4) 01/24/25 03:21 Total Bilirubin 0.6 mg/dl (0.2-1.0) 01/24/25 03:21 AST 22 U/L (13-39) 01/24/25 03:21 ALT 25 U/L (7-52) 01/24/25 03:21 Alkaline Phosphatase 118 U/L (34-104) H 01/24/25 03:21 Total Creatine Kinase 23 U/L (30-223) L 01/23/25 13:05 Troponin I High Sens 43.4 pg/ml (0-20) H 01/24/25 03:21 C-Reactive Protein 16.35 mg/dl (0-0.5) H 01/23/25 14:57 Total Protein 5.7 gm/dl (6.0-8.3) L 01/24/25 03:21 Albumin 2.7 gm/dl (3.4-5.0) L 01/24/25 03:21 Globulin 3.0 gm/dl (2.5-4.0) 01/24/25 03:21 Albumin/Globulin Ratio 0.9 (0.9-2) 01/24/25 03:21 25-OH Vitamin D Total 36.5 ng/ml (30-100) 01/25/25 06:05 Procalcitonin 0.15 ng/ml (0-0.5) 01/23/25 13:05 TSH 1.498 uIu/ml (0.300-4.500) 01/23/25 13:05 Urine Color Yellow 01/23/25 15: Urine Appearance Cloudy (Clear) A 01/23/25 15: Urine pH 5.0 (4.5-7.5) 01/23/25 15: Ur Specific [place] 1.015 (1.000-1.030) 01/23/25 15: Urine Protein Trace (Negative) H 01/23/25 15: Urine Glucose (UA) Negative (Negative) 01/23/25 15: Urine Ketones Negative (Negative) 01/23/25 15: Urine Blood 3+ (Negative) H 01/23/25 15: Urine Nitrite Negative (Negative) 01/23/25 15: Urine Bilirubin Negative (Negative) 01/23/25 15: Urine Urobilinogen Negative (Negative) 01/23/25 15:01 Ur Leukocyte Esterase 3+ (Negative) H 01/23/25 15:01 Urine WBC (Auto) >50 /hpf (0-5) H 01/23/25 15:01 Urine RBC (Auto) >20 /hpf (0-2) H 01/23/25 15: U Hyaline Cast (Auto) 3-5 /lpf (0-2) H 01/23/25 15:01 U Epithel Cells (Auto) 0-2 /hpf (0-2) 01/23/25 15:01 Urine Bacteria (Auto) 1+ (None Seen) H 01/23/25 15:01 Urine Comment 01/23/25 15:01 Nasal Screen MRSA (PCR) Negative (Negative) 01/23/25 16:27 Adenovirus (PCR) Not Detected (NotDetected) 01/23/25 16:27 B. pertussis DNA (PCR) Not Detected (NotDetected) 01/23/25 16:27 B.parapertussis DNA PCR Not Detected (NotDetected) 01/23/25 16:27 C. pneumoniae DNA (PCR) Not Detected (NotDetected) 01/23/25 16:27 Coronavirus OC43 (PCR) Not Detected (NotDetected) 01/23/25 16:27 Coronavirus HKU1 (PCR) Not Detected (NotDetected) 01/23/25 16:27 Coronavirus 229E (PCR) Not Detected (NotDetected) 01/23/25 16:27 SARS-CoV-2 (PCR) Not Detected (NotDetected) 01/23/25 16:27 Coronavirus NL63 (PCR) Not Detected (NotDetected) 01/23/25 16:27 Human Metapneumovir PCR Not Detected (NotDetected) 01/23/25 16:27 Influenza Type A (PCR) Not Detected (NotDetected) 01/23/25 16:27 Influenza Type B (PCR) Not Detected (NotDetected) 01/23/25 16:27 M. pneumoniae (PCR) Not Detected (NotDetected) 01/23/25 16:27 Parainfluenza 1 (PCR) Not Detected (NotDetected) 01/23/25 16:27 Parainfluenza 2 (PCR) Not Detected (NotDetected) 01/23/25 16:27 Parainfluenza 3 (PCR) Not Detected (NotDetected) 01/23/25 16:27 Parainfluenza 4 (PCR) Not Detected (NotDetected) 01/23/25 16:27 RSV (PCR) Not Detected (NotDetected) 01/23/25 16:27 Entero/Rhino (PCR) DETECTED (NotDetected) A 01/23/25 16:[address] 01/23/25 12:40 CT head/brain wo con CLINICAL HISTORY: 89 years-old Male with weak. Acute weakness TECHNIQUE: Multiple axial CT images of the head were obtained without contrast. A dose lowering technique was utilized adhering to the principles of ALARA. CT DOSE: 750.68 mGy.cm COMPARISON: 11/06/2022 FINDINGS: No acute intracranial hemorrhage, midline shift, intracranial mass, hydrocephalus, territorial ischemia or abnormal extra-axial collection. Involutional changes with chronic microvascular ischemic disease. Chronic appearing tiny basal ganglia lacunar infarcts. The calvarium is intact. Large left maxillary sinus polyp is partially imaged. Complete opacification of the left sphenoid sinus. IMPRESSION: No acute intracranial abnormality identified. ACT 112: Negative or not required by law. The above report was generated using voice recognition software. It may contain grammatical, syntax or spelling errors. Electronically signed by: Ollie Hendrix M.D. 01/23/2025 2:05 PM Videofluoroscopic Swallow 01/24/25 13:00 FL video swallow CLINICAL HISTORY: h/o aspiration. TECHNIQUE: Video fluoroscopic evaluation of swallowing was performed in the AP and lateral projections by the speech pathology staff. The patient is fed nectar-thick and thin liquid barium, a barium coated wafer, and barium pudding. FLUOROSCOPY TIME: 2 minutes 17 seconds. COMPARISON: 01/28/2022 FINDINGS: There is aspiration with liquid. There is vallecular residual with all barium consistencies. IMPRESSION: Aspiration. ACT 112: Negative or not required by law. Electronically signed by: Esa Aguilar M.D. 01/24/2025 2:41 PM Chest X-Ray 01/25/25 07:45 Clinical History: Hypoxia Technique: A frontal view of the chest was obtained Comparison is made to the prior examination dated 01/23/2025 Findings: There is mild patchy right upper lobe infiltrate, concerning for pneumonia. The heart size is within normal limits. No definite pneumothorax is seen. There are suspected small bilateral pleural effusions No fracture is noted. There is a left chest wall pacemaker device Impression: 1. Suspected right upper lobe bronchopneumonia 2. Small bilateral pleural effusions ACT 112: Positive. There are findings on this exam that require communication between the performing entity and the patient following Patient Test Result Information Act ([place] ACT 112) guidelines. Electronically signed by Vivek Cardenas 01-25-2025 08:37 AM Ordered Studies 01/23/25 12:40 CT head/brain wo con Stat 01/24/25 13:00 FL video swallow Routine Hospital Course (1) Generalized weakness: (2) Lethargy: (3) Ambulatory dysfunction: (4) Pneumonia: (5) Catheter-associated urinary tract infection: (6) Berman catheter in place prior to arrival: (7) Supratherapeutic INR: Plan Patient is an 89y/o M with PMHx significant for multifactorial HFrEF with history of nonischemic cardiomyopathy, chronic CAD, PAD previously requiring multiple interventions, paroxysmal atrial fibrillation anticoagulated on Coumadin, history of cardiac catheterization in 2015 demonstrating 80% stenosis of the proximal portion of a small to moderate-sized PDA branch at the distal RCA for which medical management was recommended, SSS s/p permanent pacemaker implantation in 2022, chronic dizziness with history of autonomic dysfunction, ascending colon adenocarcinoma s/p right hemicolectomy in 2018, DMII, diabetic polyneuropathy with history of diabetic foot ulcers and osteomyelitis s/p left 4th/5th and right 2nd toe amputation, history of urinary retention with incomplete bladder emptying, bilateral exudative age-related macular degeneration, MAGI and CKD stage III who presented to the ED via EMS with his c aregiver due to increasing weakness and lethargy over the past 6-8 weeks. Generalized weakness Deconditioning Ambulatory dysfunction Mostly wheelchair bound at baseline s/p fall with femoral fracture in 2022 Sustained multiple falls during transfers over the past several weeks PT OT, fall precautions PT recommends rehab placement Plan to discharge to rehab facility today Rhinovirus infection Possible multifocal pneumonia Hypoxia secondary to above Chronic dysphagia--on permissive aspiration per Caregiver --CXR:reticular opacity at the right mid lung and left lung base -- BioFire positive for rhinovirus --Blood cultures negative to date -- Nasal MRSA negative Empirically on IV cefepime, added Doxy>> transition to oral antibiotics to complete the course on discharge On hypertonic saline nebs Continue aspiration precautions Resumed Lasix to help with volume status Wean off of supplemental oxygen as able Cultures remain negative CAUTI--POA History of urinary retention with chronic Berman catheter use Urine culture growing E. coli Urinary catheter exchanged while in ED Continue IV cefepime>>Transitioned to ceftriaxone Stage III pressure ulcer of buttock POA Pressure ulcer of left foot, stage III POA Follows with [facility] wound clinic Continue wound care Chronic dizziness with history of autonomic dysfunction Continue midodrine Moderate-severe oropharyngeal dysphagia with history of aspiration Fluoro swallow study, 01/2022: diffusely incomplete swallowing mechanics, weak pharyngeal constriction and poor tongue base retraction, tono aspiration SOA ARCHITECT previously recommending easy to chew diet, thin liquids ( add extra sauce/gravy to foods, assistance with cutting food into smaller pieces) --Video swallow: There is aspiration with liquid. There is vallecular residual with all barium consistencies. Continue Aspiration precautions On permissive aspiration Continue diet as recommended by speech therapy Concern for possible LAZARUS Patient's caregiver reported witnessed apneic events during sleep over the past week Nocturnal oximetry study as able Needs polysomnography as outpatient Paroxysmal atrial fibrillation anticoagulated on Coumadin Supratherapeutic INR--resolved Monitor INR 3.6 >>2.8>1.>1.57>1.8 Continue amiodarone, metoprolol succinate 25 mg daily Adjust Coumadin dose as needed Monitor INR Will give Coumadin 3 mg today Elevated troponin Patient denies any anginal symptoms No significant rise in troponin EKG shows no signs of acute ischemia Monitor SSS s/p permanent pacemaker placement in 2022 Multifactorial HFrEF with history of nonischemic cardiomyopathy TTE, 01/2021: mildly reduced EF = 45% (stable), grade I DD, severely enlarged LA, trace loculated posterior pericardial effusion (stable; no evidence of tamponade physiology) Continue home Lasix Monitor volume status CAD History of cardiac catheterization in 2014 demonstrating 80% stenosis of the proximal portion of a small to moderate-sized PDA branch at the distal RCA Continue Plavix, metoprolol Mild Hypocalcemia Normal vitamin D levels Continue vitamin, calcium supplements Ascending colon adenocarcinoma s/p right hemicolectomy in 2017 Did not require adjuvant chemotherapy, remains under observation Follows with [facility] oncology, Dr. Eng DM II HbA1c 8.1 Continue insulin per protocol Monitor blood glucose levels Appreciate glycemic pharmacy consult for assistance with insulin management Diabetic polyneuropathy Continue gabapentin CKD stage III Baseline creatinine 1.1-1.4 Monitor renal function Avoid nephrotoxic agents as able DVT Px: Coumadin CODE STATUS Full code Disposition Rehab Total Time Total Time Spent Total Time Spent (In Minutes): 51 minutes Discharge Plan Discharge Items Patient Disposition: Transfer Custodial Fac Reason For Visit: COMPLICATED UTI, POSSIBLE PNA Discharge Diagnosis: Rhinovirus infection Multifocal pneumonia Complicated urinary tract infection Generalized weakness/deconditioning Stage III pressure ulcer of buttock POA Pressure ulcer of left foot, stage III POA Chronic dysphagia Paroxysmal atrial fibrillation on Coumadin Condition on Discharge: Fair Activity: Per Instructions section Exercise/Sports: Gradually increase as tolerated Non-emergency contact: Primary Care Provider Call non-emergency contact if: you have any medication questions, your symptoms worsen, your pain is concerning for you and you have a fever Follow-up/Referrals: Vianey Matamoros MD [Primary Care Provider] - Diet: Carb Consistent or DM2 and Heart Healthy Diet Texture: Dental soft (bite-sized) Addtl Attending Provider Instructions: -- Follow-up with your primary care physician in 1 week upon discharge from rehab facility --Your PT/INR is 1.8 on 01/28/25. Take Coumadin 3mg today (01/28/25) and tomorrow (01/29/25). Obtain PT/INR in 2 days as recommended. --Monitor your PT/INR while at rehab facility for further adjustment of Coumadin dose as needed --Your final blood cultures are pending at the time of discharge. Follow-up with your physician for results. -Continue supplemental oxygen as needed. Can wean off of supplemental oxygen at rehab facility as able. -- Complete the antibiotic course (Cefuroxime and Doxycycline) for 3 more days as prescribed for pneumonia/urinary tract infection. Seek immediate medical attention if your symptoms reoccur or worsen Please review medication list provided on discharge for any medication changes as instructed. Please call if you have any questions or problems. You can reach a [facility] hospitalist on duty at [facility] 24 hours a day by calling [phone] Pending Studies at Discharge: No Studies:: Blood cultures Stand-Alone Forms: My [facility] Skilled Items Patient informed of condition?: Yes DNR: No Discharge Level of Care: Skilled Communicable Disease: No Discharge Prognosis: Stable Lines: None Urinary Catheter: Yes Medications and DC Order Prescriptions: New doxycycline hyclate 100 mg Capsule 100 mg PO BID Qty: 7 0RF cefuroxime axetil 500 mg tablet 500 mg PO BID Qty: 7 0RF Continued midodrine 2.5 mg tablet 2.5 mg PO BID Rx Instructions: do not give last dose of day after 6PM or within 4 hrs of bedtime nystatin 100,000 unit/gram powder 1 applic topical DAILY Qty: 60 2RF Rx Instructions: APPLY TO GROIN AREA clopidogrel 75 mg tablet 75 mg PO QAM Qty: 90 3RF gabapentin 300 mg capsule 300 mg PO TID insulin glargine 100 unit/mL Solution 19 units subcut QAM magnesium oxide 400 mg (241.3 mg magnesium) Tablet 400 mg PO QAM metoprolol succinate 25 mg Tablet Extended Release 24 Hr 25 mg PO QAM loratadine [Claritin] 10 mg Tablet 10 mg PO QAM amiodarone 200 mg tablet 200 mg PO QAM zolpidem [Ambien] 5 mg tablet 5 mg PO QPM PRN (Reason: Insomnia) bisacodyl 10 mg Suppository 10 mg MN DAILY PRN (Reason: Constipation) mirtazapine [Remeron] 30 mg Tablet 30 mg PO HS calcium carbonate-vitamin D3 [Oyster Shell Calcium-Vit D3] 500 mg-5 mcg (200 unit) Tablet 1 tab PO QAM multivit,stress formula-zinc Tablet 1 tab PO QAM docusate sodium [Colace] 100 mg Capsule 100 mg PO BID furosemide 40 mg tablet 40 mg PO QAM Ocuvite Adult 50 Plus 250 mg (90 mg-160 mg) Capsule 1 cap PO QAM potassium chloride 20 mEq tablet,ER particles/crystals 20 meq PO QAM lorazepam 1 mg tablet 1 mg PO HS PRN (Reason: Anxiety) ketoconazole 2 % shampoo 1 applic TOPICAL DIRECTED fluticasone propionate [Flonase Allergy Relief] 50 mcg/actuation [place],Suspension 2 spray INTRANASAL QAM Rx Instructions: administer into each nostril methenamine hippurate [Hiprex] 1 gram tablet 1 g PO QAM warfarin 1 mg tablet See Rx Instructions .ROUTE .COMPLEX Rx Instructions: 1 mg every Mon, Wed, Fri; 2 mg all other days warfarin 1 mg tablet 1 mg PO UD Discharge Orders: Discharge Order (Routine); Ordered 01/28/25 Ordered By: Jam Reid/Other Patient Handouts: Managing Type 2 Diabetes Admission Data Admit Date/Time: 01/23/25 17:02 Attending Provider: Jam Dao Admit Provider: Moose Hernandez Primary Care Provider: Vianey Matamoros Other Providers: Moose Hernandez; Sasha [facility]
[2025-01-28 13:42] VITALS: BP 122/67
== END 2025-01-28 15:15 | DRG 177 ==
LOC: ED 12:29 → SUATTDRO 17:02 → EDINP 17:02 → 2W 19:44